=== PATIENT | male | born 1960 | race Two or more races ===

== ENCOUNTER 2020-07-29 09:12 | Day surgery (SDC) | payer OTHER, SELFPAY ==
[2020-07-25 13:20] VITALS: BMI 35.2
--- NOTE | 2020-07-27 13:03 | HO.ANESPROP2 ---
Documented by User: Rebekah Cortes 07/28/20 12:17 HPI - Anesthesia Eval Consult details Narrative: 59yo M for medial branch block PMFSH Past Medical History Medical History Abnormal biopsy of kidney Anxiety Asthma CHF (congestive heart failure) Chronic kidney disease (CKD) COPD (chronic obstructive pulmonary disease) Depression Elevated cholesterol History of alcohol abuse History of headache HTN (hypertension) Hx of pancreatitis On beta doron at home Peptic ulcer Sleep apnea Surgical History Surgical History Hx of colonoscopy Hx of right inguinal hernia repair Social History Social History Smoking Status: Current every day smoker Years Smoked: 30 Smoked in Last 30 Days: Yes Patient Interested in Nicotine Replacement: No Use of substances other than those prescribed or required for medical reasons: No Advance Directives: No Narrative Narrative: Renal cleared, avoid NSAID. Cardiology OV 03/2020 (results of w/u reported below) Meds Allergies Allergy/AdvReac Type Severity Reaction Status Date / Time No Known Allergies Allergy Verified 07/25/20 12:53 Home Medications Medication Instructions Recorded Confirmed Type albuterol mcg INHALATION 07/25/20 History aspirin [Aspir-81] 81 mg PO DAILY 07/25/20 07/29/20 History atorvastatin 80 mg PO DAILY 07/25/20 07/25/20 History carvedilol 25 mg PO BID 07/25/20 07/25/20 History cholecalciferol (vitamin D3) 25 mcg PO DAILY 07/25/20 07/25/20 History [Vitamin D3] clonidine HCl 0.2 mg PO BEDTIME 07/25/20 07/25/20 History fenofibrate nanocrystallized 145 mg PO DAILY 07/25/20 07/25/20 History gabapentin 600 mg PO BID 07/25/20 07/25/20 History insulin aspart U-100 [Novolog 15 unit SUBCUT TID 07/25/20 07/25/20 History Flexpen U-100 Insulin] lisinopril 40 mg PO DAILY 07/25/20 07/25/20 History minoxidil 2.5 mg PO DAILY 07/25/20 07/25/20 History nifedipine 90 mg PO DAILY 07/25/20 07/25/20 History omega-3 fatty acids-vitamin E cap 07/25/20 History [Fish Oil] oxcarbazepine 300 mg PO BID 07/25/20 07/25/20 History perphenazine 4 mg PO BID 07/25/20 07/25/20 History sertraline 100 mg PO DAILY 07/25/20 07/25/20 History spironolactone 25 mg PO DAILY 07/25/20 07/25/20 History torsemide 20 mg PO DAILY 07/25/20 07/25/20 History Exam Exam Date and Time: July 27, 2020 1303 Height,Weight and Vital Signs: Height 5 ft 10 in Weight 111.316 kg Pertinent Lab Results Pertinent Lab Results: EKG per Cardiol note: SB@59, LVH, strain pattern, nonspecifit ST-T changes, slightly prolonged MO, normal QTc Stress MIBI 04/2020 = nondiagnostic EKG, normal perfusion, gated EF 58% ECHO 04/2020 = EF 55-60%, no RWMA, no valve pathology 02/2020 Labs: Lytes WNL Bun/Creat = 40/2.41 (H) H&H = 13.2/38.4 (L) Assessment and Plan Assessment Anesthesia Assessment: Chart Reviewed (07/27/20 HT) Documented by User: Brissa Santiago 07/29/20 11:11 [facility] Past Medical History Medical History Abnormal biopsy of kidney Anxiety Asthma CHF (congestive heart failure) Chronic kidney disease (CKD) COPD (chronic obstructive pulmonary disease) Depression Elevated cholesterol History of alcohol abuse History of headache HTN (hypertension) Hx of pancreatitis On beta doron at home Peptic ulcer Sleep apnea Surgical History Surgical History Hx of colonoscopy Hx of right inguinal hernia repair Social History Social History Smoking Status: Current every day smoker Years Smoked: 30 Smoked in Last 30 Days: Yes Patient Interested in Nicotine Replacement: No Use of substances other than those prescribed or required for medical reasons: No Advance Directives: No Meds Allergies Allergy/AdvReac Type Severity Reaction Status Date / Time No Known Allergies Allergy Verified 07/25/20 12:53 Home Medications Medication Instructions Recorded Confirmed Type albuterol mcg INHALATION 07/25/20 History aspirin [Aspir-81] 81 mg PO DAILY 07/25/20 07/29/20 History atorvastatin 80 mg PO DAILY 07/25/20 07/25/20 History carvedilol 25 mg PO BID 07/25/20 07/25/20 History cholecalciferol (vitamin D3) 25 mcg PO DAILY 07/25/20 07/25/20 History [Vitamin D3] clonidine HCl 0.2 mg PO BEDTIME 07/25/20 07/25/20 History fenofibrate nanocrystallized 145 mg PO DAILY 07/25/20 07/25/20 History gabapentin 600 mg PO BID 07/25/20 07/25/20 History insulin aspart U-100 [Novolog 15 unit SUBCUT TID 07/25/20 07/25/20 History Flexpen U-100 Insulin] lisinopril 40 mg PO DAILY 07/25/20 07/25/20 History minoxidil 2.5 mg PO DAILY 07/25/20 07/25/20 History nifedipine 90 mg PO DAILY 07/25/20 07/25/20 History omega-3 fatty acids-vitamin E cap 07/25/20 History [Fish Oil] oxcarbazepine 300 mg PO BID 07/25/20 07/25/20 History perphenazine 4 mg PO BID 07/25/20 07/25/20 History sertraline 100 mg PO DAILY 07/25/20 07/25/20 History spironolactone 25 mg PO DAILY 07/25/20 07/25/20 History torsemide 20 mg PO DAILY 07/25/20 07/25/20 History Exam Airway Mallampati Class: III TM Dist: >3cm Neck ROM: Full Loose/Missing/Broken Teeth: No Heart: rrr Lungs: cta Assessment and Plan Assessment Anesthesia Assessment: Anesthesia Plan Discussed, Consent Obtained, Smoking Cess. Discussed and Chart Reviewed Final Anesthetic Review NPO: Yes ASA Class: III Final Preanesthetic Review: No Changes in Pt Med Stat, Meds & Allergies Reviewed, Consent Obtained/Reviewed, Med/Surg/Anes Hx Reviewed, Last Cigarette (If Appl.) and Anes Risks/Benef Reviewed Patient Risk: Intermediate Procedure Risk: Low Assessment/Block/Sedation in SS: Assess/Block/Sedation-SS Anesthetic Plan Anesthetic Plan: MAC: Disposition: Standard PACU
--- NOTE | 2020-07-29 | FL_ITS ---
EXAMINATION: XR FLUOROSCOPY WITH IMAGES CLINICAL INFORMATION: Pain, pain management procedure under fluoroscopy. COMPARISON: Lumbar radiographs 04/07/2020 TECHNIQUE: Fluoroscopy performed by Dr. Hester. Fluoroscopy time: 0.8 minutes DAP: 18.8 Gycm2 Images: 6 FINDINGS: There are bilateral spinal needles and bilateral contrast nerve sheaths at the outer aspect L3, L4, and L5 neural foramen. IMPRESSION: Fluoroscopy for pain management procedures.
[2020-07-29 09:44] LABS: Glucose, Whole Blood 96 mg/dL (60-115)
[2020-07-29 09:49] VITALS: BP 151/80; PULSE 64; RESP 16; TEMP 36.3; O2SAT 97
[2020-07-29] MEDS: Albuterol Sulfate (0.083%) 2.5 MG/3 ML VIAL.NEB INHALE (10:32)
[2020-07-29 12:07] VITALS: BP 150/81; PULSE 63; RESP 16; TEMP 36.3; O2SAT 98
[2020-07-29 12:22] VITALS: BP 152/75; PULSE 62; RESP 18; O2SAT 96
[2020-07-29 12:37] VITALS: BP 146/64; PULSE 63; RESP 20; O2SAT 97
[2020-07-29 13:20] VITALS: BP 160/82; PULSE 75; RESP 20; TEMP 37.3; O2SAT 99
--- NOTE | 2020-07-29 13:48 | W.PM.OPN ---
Operative Note Operative Note Narrative: Informed consent was explained to the patient. All questions were explained and answered. The patient was taken inside the operating room where she was positioned prone on the operating table. [employer] monitors were applied. Patient was minimally sedated. obstructive sleep apnea of the patient and multiple comorbidities were taking into the account with decision of sedation of the patient. Opioids were avoided during the sedation. The patient was taken inside of the operating room where she was positioned prone operating table. Time-out was performed delineating correct site, side, the nature of the procedure, patient's allergy, preoperative antibiotic if needed. All operating room staff was participating in OR time-out procedure. The lower back was prepped with ChloraPrep and draped with sterile towels. Sterilely draped C-arm was brought over the operating field and sq picture of L4-and L5 vertebra and S1 AREA were delineated on the screen. Point of interest were delineated as connection of superior articular process of L4 and L5 vertebra bilaterally with corresponding transverse processes as well as connection of the sacral alae bilaterally with superior articular process of S1. The projection of the point of interest to the skin were injected with the small amount of local anesthetic lidocaine 2% 1-1.5 cc. After that 22 gauge 3-1/2 inch spinal needles was driven to the point of interest in tunnel vision fashion. After needles gently contacted the bone at the point of interests the needle was injected with small amount of bupivacaine 0.5%-1cc. Upon completion of the injections needles were removed and sterile dressings were applied patient was awaken and taken outside of the operating room to recovery room where he recovered uneventfully. She went home without immediate complications.
== END 2020-07-29 23:59 | disposition home or self-care (01) ==
PROVIDERS: PCP Nurse Practitioner Family; Visit Provider Anesthesiology
PROC: (CPT 64493; principal; 2020-07-29 10:50)
DX: M47.816 Spondylosis without myelopathy or radiculopathy, lumbar region (principal); M54.16 Radiculopathy, lumbar region; M17.11 Unilateral primary osteoarthritis, right knee; E11.42 Type 2 diabetes mellitus with diabetic polyneuropathy; E11.22 Type 2 diabetes mellitus with diabetic chronic kidney disease; I13.0 Hypertensive heart and chronic kidney disease with heart failure and stage 1 through stage 4 chronic kidney disease, or unspecified chronic kidney disease; N18.4 Chronic kidney disease, stage 4 (severe); I50.9 Heart failure, unspecified; J44.9 Chronic obstructive pulmonary disease, unspecified; F17.210 Nicotine dependence, cigarettes, uncomplicated; Z79.4 Long term (current) use of insulin; Z79.899 Other long term (current) drug therapy
CPT/HCPCS: 64493; 64494; 76000; 82947; 94640; 94664; J2250; Q9967

== ENCOUNTER 2020-08-25 18:27 | Emergency (ER) | payer OTHER, SELFPAY ==
[2020-08-25 19:23] VITALS: BP 225/78; PULSE 62; RESP 18; TEMP 37.3; O2SAT 99; BMI 34.2
[2020-08-25 19:54] VITALS: BP 224/78; PULSE 66; RESP 12; TEMP 36.7; O2SAT 97
[2020-08-25 20:12] LABS: MANUAL DIFF FLAG NO
[2020-08-25 20:14] LABS: Basophils Percent Auto 0.5 % (0-2); Eosinophils Absolute Auto 0.3 X10*3/uL (0.0-0.4); Eosinophils Percent Auto 3.2 % (0-4); Hematocrit 34.9 % (42-52); Hemoglobin 12.1 g/dl (14.0-18.0); Imm Gran Abs Auto 0.03 X10*3/uL (0.00-0.03); Imm Gran Pct Auto 0.4 % (0.0-0.4); Lymphocytes Absolute Auto 1.8 X10*3/uL (1.2-4.9); Lymphocytes Percent Auto 22.5 % (20-40); Mean Corpuscular HGB Conc 34.7 g/dl (31.0-36.0); Mean Corpuscular Hemoglobin 30.2 pg (27.0-33.0); Mean Platelet Volume 11.7 fL (9.4-12.4); Monocytes Absolute Auto 0.5 X10*3/uL (0.1-1.2); Neutrophils Absolute Auto 5.3 X10*3/uL (2.0-8.3); Neutrophils Percent Auto 67.4 % (45-73); Platelet Count 176 X10*3/uL (160-400); Red Blood Count 4.01 X10*6/uL (4.60-5.80); Red Cell Distribution Width 13.1 % (11.0-16.0); White Blood Count 7.9 X10*3/uL (4.8-10.8)
[2020-08-25 20:19] VITALS: RESP 16
[2020-08-25] MEDS: Morphine Sulfate 4 MG/ML CARTRIDGE IVPUSH (20:19)
[2020-08-25] MEDS: ondansetron HCL 4 MG/2 ML VIAL IVPUSH (20:20)
[2020-08-25 20:37] VITALS: BP 185/63; PULSE 66; RESP 18; O2SAT 99
[2020-08-25 20:43] LABS: Anion Gap 12 (12-20); Blood Urea Nitrogen 33 mg/dL (9-16); Calcium 7.6 mg/dL (8.4-10.2); Carbon Dioxide 24 mmol/L (22-29); Chloride 108 mmol/L (96-108); Creatinine Clr Calc Pharmacy 33.9; Estimated Glomerular Filt Rate 22; Glucose Random 181 mg/dL (60-115); Potassium 3.5 mmol/l (3.3-5.1); Sodium 140 mmol/L (135-145)
--- NOTE | 2020-08-25 21:50 | ED_ITS ---
HPI - Headache General Chief Complaint: Headache Stated Complaint: headache,dizzy Time Seen by Provider: 08/25/20 19:56 Source: patient Mode of arrival: ambulatory Limitations: no limitations History of Present Illness HPI Narrative: PATIENT HISTORY OF HYPERTENSION AND MIGRAINES BEEN HAVING HEADACHE FOR LAST 4 DAYS RAN OUT OF HIS MEDICATIONS ON ARRIVAL PATIENT'S BLOOD PRESSURE WAS ALSO ELEVATED TO 222/78 WHICH USUALLY GETS HIGH WHEN THE WHEN PATIENT GETS HEADACHE. PATIENT HAD FEW CT SCANs DONE THIS YEAR WHICH WERE NEGATIVE ALSO PATIENT HAS SLEEP APNEA SYNDROME BUT IS NOT USING HIS CPAP MACHINE FOR LAST 1 AND HALF YEAR PATIENT FAIRLY RELIABLE FOR HIS MEDICATION FOR BLOOD PRESSURE AND HE TOOK HIS MEDICATION TODAY MD elicited complaint: headache Onset (ago): day(s) (4) Onset description: gradually Location: diffuse Severity: moderate Quality & Timing: throbbing Exacerbating factors: light and noise Relieving factors: nothing Context: occurred at rest Associated symptoms: nausea and sensitivity to sound Related Data Home Medications Medication Instructions Recorded Confirmed albuterol mcg INHALATION 07/25/20 aspirin [Aspir-81] 81 mg PO DAILY 07/25/20 07/29/20 atorvastatin 80 mg PO DAILY 07/25/20 07/25/20 carvedilol 25 mg PO BID 07/25/20 07/25/20 cholecalciferol (vitamin D3) 25 mcg PO DAILY 07/25/20 07/25/20 [Vitamin D3] clonidine HCl 0.2 mg PO BEDTIME 07/25/20 07/25/20 fenofibrate nanocrystallized 145 mg PO DAILY 07/25/20 07/25/20 gabapentin 600 mg PO BID 07/25/20 07/25/20 insulin aspart U-100 [Novolog 15 unit SUBCUT TID 07/25/20 07/25/20 Flexpen U-100 Insulin] lisinopril 40 mg PO DAILY 07/25/20 07/25/20 minoxidil 2.5 mg PO DAILY 07/25/20 07/25/20 nifedipine 90 mg PO DAILY 07/25/20 07/25/20 oxcarbazepine 300 mg PO BID 07/25/20 07/25/20 perphenazine 4 mg PO BID 07/25/20 07/25/20 sertraline 100 mg PO DAILY 07/25/20 07/25/20 spironolactone 25 mg PO DAILY 07/25/20 07/25/20 torsemide 20 mg PO DAILY 07/25/20 07/25/20 Previous Rx's Medication Instructions Recorded pen needle, diabetic 32 gauge x #150 ea 08/01/20 icosapent ethyl 1 gram capsule 2 g PO BID 30 Days #120 cap 08/10/20 lancets 33 gauge #100 ea 08/16/20 tkmnepsxjl-sxjanylxsqmqn-yryr 1 cap PO Q6H PRN #20 cap 08/25/20 [Fioricet] ondansetron 4 mg PO Q6H PRN #20 tab 08/25/20 Allergies Allergy/AdvReac Type Severity Reaction Status Date / Time No Known Allergies Allergy Verified 08/25/20 19:23 Review of Systems Review of Systems: REVIEW OF SYSTEMS: Pertinent positives and negatives are stated above in the history. GEN: no fevers, chills, fatigue HEENT: no nasal congestion, sore throat, ear pain NEURO: no dizziness, focal weakness PULM: no cough, shortness of breath CV: no chest pain, palpitations, LE edema ABD: no abdominal pain, nausea, vomiting, diarrhea : no dysuria, urgency, frequency SKIN: no rash ROS otherwise negative x 10 PMFSH Past Medical History Medical History Abnormal biopsy of kidney Anxiety Asthma CHF (congestive heart failure) Chronic kidney disease (CKD) COPD (chronic obstructive pulmonary disease) Depression Diabetes mellitus with hyperglycemia, with long-term current use of insulin Elevated cholesterol History of alcohol abuse History of headache HTN (hypertension) Hx of pancreatitis Hypertension Hypertriglyceridemia On beta doron at home Peptic ulcer Sleep apnea Surgical History Hx of colonoscopy Hx of right inguinal hernia repair Social History Social History Alcohol intake: never Smoking Status: Current some day smoker Years Smoked: 30 Use of substances other than those prescribed or required for medical reasons: No Advance Directives: No Advance Directives Information Provided: No Physical Exam Vital Signs: Vital Signs: Vital Signs Temp Pulse Resp BP Pulse Ox 08/25/20 20:37 66 18 185/63 H 99 08/25/20 20:19 16 08/25/20 19:54 98.1 F 66 12 224/78 H 97 08/25/20 19:23 99.2 F 62 18 225/78 H 99 Body Mass Index 34.2 Appearance: Alert. Oriented X3. mild distress. Eyes: Pupils equal, round and reactive to light. ENT: Pharynx normal. Neck: Normal inspection. Neck supple. CVS: Normal heart rate and rhythm. Pulses normal. Respiratory: No respiratory distress. Breath sounds normal. Abdomen: Soft and nontender. Skin: Skin warm and dry. Normal skin color. Normal skin turgor. Extremities: No lower extremity edema. Good range of movement Neuro: Oriented X 3. No motor deficit. No sensory deficit. Course Reevaluation(s) Reevaluation #1: patient feeling better now headache is almost gone workup is negative for any CO2 narcosis. Patient's blood pressure improved to 177/70 will discharge patient home diagnosis of migraine headache Time: 22:01 [facility] - Headache Lab Data Result diagrams: 08/25/20 20:05 08/25/20 20:05 Labs: Lab Results 08/25/20 08/25/20 08/25/20 Range/Units 20:05 20:05 20:07 WBC 7.9 (4.8-10.8) X10*3/uL RBC 4.01 L (4.60-5.80) X10*6/uL Hgb 12.1 L (14.0-18.0) g/dl Hct 34.9 L (42-52) % MCV 87.0 (80-98) fL MCH 30.2 (27.0-33.0) pg MCHC 34.7 (31.0-36.0) g/dl RDW 13.1 (11.0-16.0) % Plt Count 176 (160-400) X10*3/uL MPV 11.7 (9.4-12.4) fL Immature Gran % (Auto) 0.4 (0.0-0.4) % Neut % (Auto) 67.4 (45-73) % Lymph % (Auto) 22.5 (20-40) % Ocean % (Auto) 6.0 (2-11) % Eos % (Auto) 3.2 (0-4) % Baso % (Auto) 0.5 (0-2) % Lymph # (Auto) 1.8 (1.2-4.9) X10*3/uL Ocean # (Auto) 0.5 (0.1-1.2) X10*3/uL Eos # (Auto) 0.3 (0.0-0.4) X10*3/uL Baso # (Auto) 0.0 (0.0-0.2) X10*3/uL Abs Immat Gran (auto) 0.03 (0.00-0.03) X10*3/uL Absolute Neuts (auto) 5.3 (2.0-8.3) X10*3/uL Absolute Nucleated RBC 0.000 (0.0-0.012) X10*3/uL Nucleated RBC % (auto) 0.0 (0.0-0.2) /100WBC VBG pH Cancelled VBG pCO2 Cancelled VBG Oxygen Liters/Min Cancelled VBG pO2 Cancelled VBG HCO3 Cancelled VBG O2 Saturation Cancelled VBG Base Excess Cancelled Sodium 140 (135-145) mmol/L Potassium 3.5 (3.3-5.1) mmol/l Chloride 108 (96-108) mmol/L Carbon Dioxide 24 (22-29) mmol/L Anion Gap 12 (12-20) BUN 33 H (9-16) mg/dL Creatinine 2.97 H (0.5-1.4) mg/dL Estim Creat Clear Calc 33.9 Estimated GFR 22 Random Glucose 181 H (60-115) mg/dL Calcium 7.6 L (8.4-10.2) mg/dL 08/25/20 Range/Units 21:44 WBC (4.8-10.8) X10*3/uL RBC (4.60-5.80) X10*6/uL Hgb (14.0-18.0) g/dl Hct (42-52) % MCV (80-98) fL MCH (27.0-33.0) pg MCHC (31.0-36.0) g/dl RDW (11.0-16.0) % Plt Count (160-400) X10*3/uL MPV (9.4-12.4) fL Immature Gran % (Auto) (0.0-0.4) % Neut % (Auto) (45-73) % Lymph % (Auto) (20-40) % Ocean % (Auto) (2-11) % Eos % (Auto) (0-4) % Baso % (Auto) (0-2) % Lymph # (Auto) (1.2-4.9) X10*3/uL Ocean # (Auto) (0.1-1.2) X10*3/uL Eos # (Auto) (0.0-0.4) X10*3/uL Baso # (Auto) (0.0-0.2) X10*3/uL Abs Immat Gran (auto) (0.00-0.03) X10*3/uL Absolute Neuts (auto) (2.0-8.3) X10*3/uL Absolute Nucleated RBC (0.0-0.012) X10*3/uL Nucleated RBC % (auto) (0.0-0.2) /100WBC VBG pH 7.33 VBG pCO2 54 VBG Oxygen Liters/Min TNP VBG pO2 78 VBG HCO3 28 VBG O2 Saturation 95.1 VBG Base Excess 1.1 Sodium (135-145) mmol/L Potassium (3.3-5.1) mmol/l Chloride (96-108) mmol/L Carbon Dioxide (22-29) mmol/L Anion Gap (12-20) BUN (9-16) mg/dL Creatinine (0.5-1.4) mg/dL Estim Creat Clear Calc Estimated GFR Random Glucose (60-115) mg/dL Calcium (8.4-10.2) mg/dL Discharge Plan Discharge Clinical Impression: Migraine Patient Disposition: Home, Self-Care Instructions: Migraine Headache (ED) Additional Instructions: rest at home, medication for migraine as prescribed. Follow with primary care doctor about sleep studies and CPAP machine. Take blood pressure medication on regular basis follow-up with PCP Prescriptions: New ondansetron 4 mg tablet,disintegrating 4 mg PO Q6H PRN (Reason: nausea and vomiting) Qty: 20 RF: 0 desazvwyvw-mibgsgragvuyo-vbcr [Fioricet] 50-300-40 mg capsule 1 cap PO Q6H PRN (Reason: pain) Qty: 20 RF: 0 No Action (DME) pen needle, diabetic [BD Silvia 2nd Gen Pen Needle] 32 gauge x 5/32 needle See Rx Instructions .ROUTE .MEDSUPPLY Qty: 150 RF: 6 Vascepa 1 gram capsule 2 g PO BID 30 Days Qty: 120 RF: 6 (DME) lancets [TRUEplus Lancets] 33 gauge misc See Rx Instructions .ROUTE .MEDSUPPLY Qty: 100 RF: 11 atorvastatin 80 mg Tablet 80 mg PO DAILY RF: 0 sertraline 100 mg Tablet 100 mg PO DAILY RF: 0 aspirin [Aspir-81] 81 mg Tablet,Delayed Release (Dr/Ec) 81 mg PO DAILY RF: 0 clonidine HCl 0.2 mg Tablet 0.2 mg PO BEDTIME RF: 0 nifedipine 90 mg Tablet Extended Release 24hr 90 mg PO DAILY RF: 0 lisinopril 40 mg Tablet 40 mg PO DAILY RF: 0 fenofibrate nanocrystallized 145 mg Tablet 145 mg PO DAILY RF: 0 gabapentin 600 mg Tablet 600 mg PO BID RF: 0 torsemide 20 mg Tablet 20 mg PO DAILY RF: 0 oxcarbazepine 300 mg Tablet 300 mg PO BID RF: 0 minoxidil 2.5 mg Tablet 2.5 mg PO DAILY RF: 0 spironolactone 25 mg Tablet 25 mg PO DAILY RF: 0 perphenazine 4 mg Tablet 4 mg PO BID RF: 0 cholecalciferol (vitamin D3) [Vitamin D3] 25 mcg (1,000 unit) Capsule 25 mcg PO DAILY RF: 0 carvedilol 25 mg Tablet 25 mg PO BID RF: 0 albuterol 90 mcg/actuation Aerosol INHALATION RF: 0 insulin aspart U-100 [Novolog Flexpen U-100 Insulin] 100 unit/mL (3 mL) Insulin Pen 15 unit SUBCUT TID RF: 0
[2020-08-25 21:57] LABS: pH VBG 7.33 (7.32-7.43)
[2020-08-25 21:58] LABS: Base Excess VBG 1.1 mmol/L; Blood Gas Serial # 5414; HCO3 VBG 28 mmol/L; Oxygen Saturation VBG 95.1 %; PCO2 VBG 54 mmhg; PO2 VBG 78 mmhg
== END 2020-08-25 22:26 | disposition home or self-care (01) ==
PROVIDERS: Emergency Provider Internal Medicine
DX: G43.909 Migraine, unspecified, not intractable, without status migrainosus (principal); R42 Dizziness and giddiness; I10 Essential (primary) hypertension; Z79.899 Other long term (current) drug therapy; F17.200 Nicotine dependence, unspecified, uncomplicated; Z71.6 Tobacco abuse counseling
CPT/HCPCS: 36415; 80048; 82803; 85025; 96361; 96374; 96375; 99284; J2270; J2405

== ENCOUNTER → 2020-08-29 09:10 | Outpatient (BNVA) | payer OTHER, SELFPAY | PROVIDERS: Visit Provider Nurse Practitioner Gerontology | DX: E11.649 Type 2 diabetes mellitus with hypoglycemia without coma (principal); E11.42 Type 2 diabetes mellitus with diabetic polyneuropathy; E11.22 Type 2 diabetes mellitus with diabetic chronic kidney disease; I12.9 Hypertensive chronic kidney disease with stage 1 through stage 4 chronic kidney disease, or unspecified chronic kidney disease; N18.4 Chronic kidney disease, stage 4 (severe); Z79.4 Long term (current) use of insulin; E78.1 Pure hyperglyceridemia; Z79.899 Other long term (current) drug therapy | CPT/HCPCS: 82947; 99212 ==

== ENCOUNTER → 2020-08-31 12:44 | Outpatient (BNVA) | payer OTHER, SELFPAY | PROVIDERS: Visit Provider Anesthesiology | DX: M47.816 Spondylosis without myelopathy or radiculopathy, lumbar region (principal); Z98.890 Other specified postprocedural states | CPT/HCPCS: 99212 ==

== ENCOUNTER 2020-09-01 11:18 | Emergency (ER) | payer OTHER, SELFPAY ==
[2020-09-01 11:45] VITALS: BP 189/81; PULSE 75; RESP 20; TEMP 37.4; O2SAT 96; BMI 34.9
--- NOTE | 2020-09-01 11:53 | US_ITS ---
EXAMINATION: US SCROTUM CLINICAL INFORMATION: Left scrotal pain. COMPARISON: None TECHNIQUE: A sonogram of the scrotum was performed assessing hui-scale appearance and color Doppler flow. Spectral Doppler analysis of the arterial and venous flow were performed in the testes bilaterally. FINDINGS: RIGHT: Right testicle measures 4.6 x 2.2 x 3.2 cm, volume 17.2 mL. No focal testicular parenchymal lesions are visualized. There is normal bilateral symmetric intratesticular color flow and low resistance waveforms. No torsion. Right epididymal head is normal in size. Small hydrocele similar to contralateral side. No varicocele. LEFT: Left testicle measures 4.3 x 2.3 x 3.3 cm, volume 17.3 mL. No focal testicular parenchymal lesions are visualized. There is normal bilateral symmetric intratesticular color flow and low resistance waveforms. No torsion. Left epididymal head is normal in size. Small hydrocele similar to contralateral side. No varicocele. Additional imaging left inguinal region demonstrates incidental inguinal node with normal shira architecture and normal shira color flow pattern with short axis dimension of only 0.8 cm. No inguinal hernia demonstrated. US/US scrotum doppler IMPRESSION: 1. No intratesticular mass or torsion. 2. Small/trace bilateral hydrocele. 3. No visible inguinal hernia or adenopathy.
--- NOTE | 2020-09-01 12:09 | ED_ITS ---
HPI - Extremity Injury (Lower) General Chief Complaint: Extremity Injury, Lower Stated Complaint: knee pain Time Seen by Provider: 09/01/20 11:53 Source: patient Mode of arrival: ambulatory History of Present Illness HPI Narrative: 59-year-old male with a past medical history of diabetes, PUD, HTN, HLD, ETOH abuse, depression, COPD, CKD, asthma, presenting to the ED complaining of left groin pain radiating down LLE x3-4 days. Reports acute on chronic back pain, unchanged. Reports pain radiates into scrotum. Admits to associated LLE tingling. Denies fever, chills, abdominal pain, nausea/vomiting, penile/scrotal lesions or discharge/swelling, urinary incontinence/retention, weakness. Denies direct injury/falls Related Data Home Medications Medication Instructions Recorded Confirmed albuterol mcg INHALATION 07/25/20 08/29/20 aspirin [Aspir-81] 81 mg PO DAILY 07/25/20 08/29/20 atorvastatin 80 mg PO DAILY 07/25/20 08/29/20 carvedilol 25 mg PO BID 07/25/20 08/29/20 cholecalciferol (vitamin D3) 25 mcg PO DAILY 07/25/20 08/29/20 [Vitamin D3] clonidine HCl 0.2 mg PO BEDTIME 07/25/20 08/29/20 fenofibrate nanocrystallized 145 mg PO DAILY 07/25/20 08/29/20 gabapentin 600 mg PO BID 07/25/20 08/29/20 lisinopril 40 mg PO DAILY 07/25/20 08/29/20 minoxidil 2.5 mg PO DAILY 07/25/20 08/29/20 nifedipine 90 mg PO DAILY 07/25/20 08/29/20 oxcarbazepine 300 mg PO BID 07/25/20 08/29/20 perphenazine 4 mg PO BID 07/25/20 08/29/20 sertraline 100 mg PO DAILY 07/25/20 08/29/20 spironolactone 25 mg PO DAILY 07/25/20 08/29/20 torsemide 20 mg PO DAILY 07/25/20 08/29/20 Previous Rx's Medication Instructions Recorded pen needle, diabetic 32 gauge x #150 ea 08/01/20 icosapent ethyl 1 gram capsule 2 g PO BID 30 Days #120 cap 08/10/20 lancets 33 gauge #100 ea 08/16/20 [id number]-eytofnivrrmpw-wyfk 1 cap PO Q6H PRN #20 cap 08/25/20 [Fioricet] ondansetron 4 mg PO Q6H PRN #20 tab 08/25/20 insulin aspart U-100 100 unit/mL See Rx Instructions SUBCUT TID 30 08/29/20 (3 mL) subcutaneous pen Days #30 ml acetaminophen [Tylenol Extra 500 mg PO Q6H PRN #20 tab 09/01/20 Strength] cyclobenzaprine 5 mg PO Q8H PRN 5 Days #14 tab 09/01/20 lidocaine [Lidoderm] 1 patch TOPICAL DAILY PRN #30 ea 09/01/20 MDD remove after 12 hours Allergies Allergy/AdvReac Type Severity Reaction Status Date / Time No Known Allergies Allergy Verified 08/29/20 10:39 Review of Systems Review of Systems: Constitutional: No Weight loss, No Fever, No Chills Gastrointestinal: No Nausea, No Vomiting, No Diarrhea, No Constipation, No Abdominal pain Genitourinary: No Dysuria, No Urinary Frequency, No Hematuria, No Urinary Incontinence, No Urgency, No Flank Pain, +L scrotal pain, denies penile d/c/lesions Musculoskeletal: +groin pain, No Myalgias, No Joint Swelling Skin: No Skin Lesions, No rash Neuro: No Weakness, No Numbness, + Paresthesias Yes all other systems are reviewed and are negative PMFSH Past Medical History Attestation statement: The following information was validated with the patient. Medical History (Updated 09/01/20 @ 15:34 by CORNELIO Bowie) Abnormal biopsy of kidney Anxiety Asthma CHF (congestive heart failure) Chronic kidney disease (CKD) Chronic kidney disease, stage 4 (severe) COPD (chronic obstructive pulmonary disease) Depression Depression with anxiety Diabetes mellitus with hyperglycemia, with long-term current use of insulin Diverticulitis Elevated cholesterol Erectile dysfunction History of alcohol abuse History of headache HTN (hypertension) Hx of pancreatitis Hypertension Hypertriglyceridemia On beta doron at home Peptic ulcer Proteinuria Sleep apnea Type 2 diabetes mellitus with chronic kidney disease Type 2 diabetes mellitus with hyperglycemia, with long-term current use of insulin Type 2 diabetes mellitus with polyneuropathy Surgical History Hx of colonoscopy Hx of right inguinal hernia repair Family History Family History (Updated 08/29/20 @ 10:42 by MADELINE Moyer) Mother Diabetes Social History Social History Alcohol intake: never Smoking Status: Current every day smoker Years Smoked: 30 Smoked in Last 30 Days: Yes Use of substances other than those prescribed or required for medical reasons: No Advance Directives: No Advance Directives Information Provided: No Physical Exam Vital Signs: Vital Signs: Vital Signs Temp Pulse Resp BP Pulse Ox 09/01/20 15:30 62 16 169/88 H 97 09/01/20 14:16 70 18 204/96 H 97 09/01/20 12:19 68 20 193/82 H 97 09/01/20 11:45 99.4 F 75 20 189/81 H 96 Body Mass Index 34.9 Const: General: cooperative and healthy appearing Orientation/consciousness: patient oriented x3 Limitations: no limitations HENMT: Head: Yes normal to inspection Ears: hearing grossly normal bilaterally General nose exam: Normal external nose present Face and sinus: Yes normal facial exam Eyes: General: appearance normal, both eyes and all related structures EOM: EOMs intact bilaterally Neck: Other: No midline cervical spinous tenderness Neck: Yes normal visual inspection GI: Inspection: Yes normal to inspection Palpation (GI): Soft to palpation, nontender, no guarding and not rigid : General: Yes no CVA tenderness Back/Spine/Pelvis: Back: no CVA tenderness Skin: Rashes: no rashes Wounds: no wounds Neuro: General: patient oriented x3 Gait exam (Neuro): Normal gait present Extrem: General: Yes normal to inspection Course Course Course Narrative: -1437--patient's blood pressure increased to 204/96, now reports headache since this morning, with dizziness this morning which has since resolved. Admits to taking 3 anti-hypertensive medications which he does not know the name of, reports taking them this morning. Denies numbness, tingling, chest pain, weakness. > will give patient pain medication, read eval blood pressure, and obtain head CT. Low concern for hypertensive urgency/emergency -1511--on re-evaluation/every time walk past room patient is sleeping comfortably/snoring > head CT pending -ultrasound without intratesticular mass or torsion. Small trace bilateral hydrocele. No visible inguinal hernia -UA negative --1532--repeat blood pressure 169/88 without intervention> patient reports resolution of headache > will cancel head CT. Discussed with patient needs close monitoring/follow-up for his blood pressure. He verbalized understanding and feels safe for discharge home MDM - Extremity Injury (Lower) MDM Narrative Medical decision making narrative: 59-year-old male with a past medical history of diabetes, PUD, HTN, HLD, ETOH abuse, depression, COPD, CKD, asthma, presenting to the ED complaining of left groin pain radiating down LLE x3-4 days. Lab Data Labs: Lab Results 09/01/20 Range/Units 12:18 Urine Color YELLOW Urine Appearance CLEAR Urine pH 6.0 (5.0-8.0) Ur Specific [place] 1.025 (1.005-1.025) Urine Protein 3+ H (NEG-TRACE) MG/DL Urine Glucose (UA) 250 H (NEG) MG/DL Urine Ketones NEG (NEG) MG/DL Urine Blood 1+ H (NEG) Urine Nitrite NEG (NEG) Ur Leukocyte Esterase NEG (NEG) Urine RBC 1-4 (0) /HPF Urine WBC 1-4 (0-4) /HPF Ur Squamous Epith Cells 1+ /LPF Ur Renal Epithelial Cell 1+ /LPF Urine Bacteria NONE /LPF Urine Mucus 2+ /LPF Discharge Plan Discharge Clinical Impression: Hypertension Qualifiers: Hypertension type: unspecified Qualified Code(s): I10 - Essential (primary) hypertension Groin pain Qualifiers: Laterality: left Qualified Code(s): R10.32 - Left lower quadrant pain Patient Disposition: Home, Self-Care Instructions: Hypertension (ED), Groin Pain (ED) Additional Instructions: Your ultrasound and urine did not show any acute findings Your blood pressure is very elevated today in the ED, make sure your taking her prescribed blood pressure medications at home, closely monitoring Follow-up with her primary care doctor If her pain persists or worsens, he developed urinary incontinence or retention, fever, weakness return to the ED Your pain is likely musculoskeletal Flexeril is a muscle relaxer, take at night as it makes you drowsy, do not drive, drink alcohol, or operate machinery while taking it Lidoderm patches are numbing patches, apply to painful area In addition take Tylenol at home Prescriptions: New acetaminophen [Tylenol Extra Strength] 500 mg tablet 500 mg PO Q6H PRN (Reason: pain or fever) Qty: 20 RF: 0 lidocaine [Lidoderm] 5 % adhesive patch,medicated 1 patch topical DAILY MDD remove after 12 hours PRN (Reason: pain) Qty: 30 RF: 0 cyclobenzaprine 5 mg tablet 5 mg PO Q8H PRN (Reason: pain (scale score 7-10)) 5 Days Qty: 14 RF: 0 No Action (DME) pen needle, diabetic [BD Silvia 2nd Gen Pen Needle] 32 gauge x 5/32 needle See Rx Instructions .ROUTE .MEDSUPPLY Qty: 150 RF: 6 Vascepa 1 gram capsule 2 g PO BID 30 Days Qty: 120 RF: 6 (DME) lancets [TRUEplus Lancets] 33 gauge misc See Rx Instructions .ROUTE .MEDSUPPLY Qty: 100 RF: 11 atorvastatin 80 mg Tablet 80 mg PO DAILY RF: 0 sertraline 100 mg Tablet 100 mg PO DAILY RF: 0 aspirin [Aspir-81] 81 mg Tablet,Delayed Release (Dr/Ec) 81 mg PO DAILY RF: 0 clonidine HCl 0.2 mg Tablet 0.2 mg PO BEDTIME RF: 0 nifedipine 90 mg Tablet Extended Release 24hr 90 mg PO DAILY RF: 0 lisinopril 40 mg Tablet 40 mg PO DAILY RF: 0 fenofibrate nanocrystallized 145 mg Tablet 145 mg PO DAILY RF: 0 gabapentin 600 mg Tablet 600 mg PO BID RF: 0 torsemide 20 mg Tablet 20 mg PO DAILY RF: 0 oxcarbazepine 300 mg Tablet 300 mg PO BID RF: 0 minoxidil 2.5 mg Tablet 2.5 mg PO DAILY RF: 0 spironolactone 25 mg Tablet 25 mg PO DAILY RF: 0 perphenazine 4 mg Tablet 4 mg PO BID RF: 0 cholecalciferol (vitamin D3) [Vitamin D3] 25 mcg (1,000 unit) Capsule 25 mcg PO DAILY RF: 0 carvedilol 25 mg Tablet 25 mg PO BID RF: 0 albuterol 90 mcg/actuation Aerosol INHALATION RF: 0 ondansetron 4 mg tablet,disintegrating 4 mg PO Q6H PRN (Reason: nausea and vomiting) Qty: 20 RF: 0 [id number]-paewylnezijbr-ivir [Fioricet] 50-300-40 mg capsule 1 cap PO Q6H PRN (Reason: pain) Qty: 20 RF: 0 insulin aspart U-100 [Novolog Flexpen U-100 Insulin] 100 unit/mL (3 mL) insulin pen See Rx Instructions SUBCUT TID 30 Days Qty: 30 RF: 3 Referrals: Nuvia Crook [Primary Care Provider] - 2 days Print Language: Khmer
[2020-09-01 12:19] VITALS: BP 193/82; PULSE 68; RESP 20; O2SAT 97
[2020-09-01 12:45] LABS: Glucose Urine UA 250 MG/DL (NEG); Leukocyte Esterase Urine NEG (NEG); Nitrite Urine NEG (NEG); Specific Gravity - Urine 1.025 (1.005-1.025); Urine Blood 1+ (NEG); Urine Ketones NEG (NEG); Urine Protein 3+ MG/DL (NEG-TRACE)
[2020-09-01 12:46] LABS: Appearance Urine CLEAR; Color Urine YELLOW
[2020-09-01 12:53] LABS: Mucus Urine 2+ /LPF; Renal Epithelial Cells Urine 1+ /LPF; Squamous Epithelial Cell Urine 1+ /LPF
--- NOTE | 2020-09-01 13:19 | US_ITS ---
EXAMINATION: US SCROTUM CLINICAL INFORMATION: Left scrotal pain. COMPARISON: None TECHNIQUE: A sonogram of the scrotum was performed assessing hui-scale appearance and color Doppler flow. Spectral Doppler analysis of the arterial and venous flow were performed in the testes bilaterally. FINDINGS: RIGHT: Right testicle measures 4.6 x 2.2 x 3.2 cm, volume 17.2 mL. No focal testicular parenchymal lesions are visualized. There is normal bilateral symmetric intratesticular color flow and low resistance waveforms. No torsion. Right epididymal head is normal in size. Small hydrocele similar to contralateral side. No varicocele. LEFT: Left testicle measures 4.3 x 2.3 x 3.3 cm, volume 17.3 mL. No focal testicular parenchymal lesions are visualized. There is normal bilateral symmetric intratesticular color flow and low resistance waveforms. No torsion. Left epididymal head is normal in size. Small hydrocele similar to contralateral side. No varicocele. Additional imaging left inguinal region demonstrates incidental inguinal node with normal shira architecture and normal shira color flow pattern with short axis dimension of only 0.8 cm. No inguinal hernia demonstrated. US/US scrotum IMPRESSION: 1. No intratesticular mass or torsion. 2. Small/trace bilateral hydrocele. 3. No visible inguinal hernia or adenopathy.
--- NOTE | 2020-09-01 14:05 | PC.NURSE ---
pt to/from ultrasound w/o issue
[2020-09-01 14:16] VITALS: BP 204/96; PULSE 70; RESP 18; O2SAT 97
--- NOTE | 2020-09-01 14:21 | PC.NURSE ---
Matilda GRIMES aware of patients BP and that pt is c/o headache. pt states he took all of his blood pressure medications today. SHIV, neuros intact. plan is for head CT
[2020-09-01] MEDS: Acetaminophen 325 MG TABLET 650 MG PO (14:41)
[2020-09-01] MEDS: Cyclobenzaprine HCl 5 MG TABLET PO (14:41)
[2020-09-01 15:30] VITALS: BP 169/88; PULSE 62; RESP 16; O2SAT 97
[2020-09-01 16:51] LABS: CT PCR NOT DETECTED (Not Detect.); NG PCR NOT DETECTED (Not Detect.)
== END 2020-09-01 15:52 | disposition home or self-care (01) ==
PROVIDERS: Physician Assistant; Emergency Provider Emergency Medicine
DX: R10.32 Left lower quadrant pain (principal); F33.1 Major depressive disorder, recurrent, moderate; I12.9 Hypertensive chronic kidney disease with stage 1 through stage 4 chronic kidney disease, or unspecified chronic kidney disease; E11.22 Type 2 diabetes mellitus with diabetic chronic kidney disease; N18.4 Chronic kidney disease, stage 4 (severe); Z79.899 Other long term (current) drug therapy; F17.200 Nicotine dependence, unspecified, uncomplicated; Z71.6 Tobacco abuse counseling
CPT/HCPCS: 76870; 81001; 87491; 87591; 93975; 99284

== ENCOUNTER → 2020-09-04 19:37 | Outpatient (REF) | payer OTHER, SELFPAY | LOC: HO.SL 19:37 | PROVIDERS: Visit Provider Nurse Practitioner Family | DX: G47.33 Obstructive sleep apnea (adult) (pediatric) (principal) | CPT/HCPCS: 95811 ==

== ENCOUNTER 2020-10-13 11:06 | Emergency (ER) | payer OTHER, SELFPAY ==
[2020-10-13 11:11] VITALS: BP 157/70; BP 165/95; PULSE 67; PULSE 69; RESP 17; TEMP 36.7; O2SAT 97; O2SAT 99; BMI 34.8
--- NOTE | 2020-10-13 11:16 | XR_ITS ---
EXAMINATION: XR LUMBOSACRAL SPINE CLINICAL INFORMATION: Fall. COMPARISON: None TECHNIQUE: Three views of the lumbosacral spine. FINDINGS: Bone alignment is normal. No fracture or dislocation is seen. There is multilevel degenerative spondylosis. Disc spaces are normal. There is lower lumbar spine facet arthritis. XR/XR lumbar spine 2-3V IMPRESSION: Degenerative changes. No fracture seen.
--- NOTE | 2020-10-13 11:16 | XR_ITS ---
EXAMINATION: XR CHEST CLINICAL INFORMATION: Right chest pain, rule out fracture. COMPARISON: 01/01/2020 portable chest. TECHNIQUE: Frontal view of the chest was obtained. FINDINGS: No significant abnormality is noted involving the heart, lungs, mediastinum, bony thorax or soft tissues. XR/XR chest 1V IMPRESSION: No acute cardiopulmonary process.
--- NOTE | 2020-10-13 11:16 | XR_ITS ---
EXAMINATION: XR HIP, RIGHT CLINICAL INFORMATION: Right hip pain status post fall. COMPARISON: None TECHNIQUE: Two views of the right hip. FINDINGS: Bones and soft tissues are normal. No fracture. Alignment is anatomic. Hip joint space is maintained. XR/XR hip RT w PEL1V IMPRESSION: Unremarkable right hip.
--- NOTE | 2020-10-13 11:20 | ED_ITS ---
HPI - Fall General Chief Complaint: Fall Stated Complaint: fall, r hip/back pain Time Seen by Provider: 10/13/20 11:16 Source: patient and EMS Mode of arrival: EMS Limitations: no limitations History of Present Illness HPI Narrative: 60-year-old male who presents to the emergency department for evaluation of injuries from a fall. Patient states that he was walking home from a convenience store when he slipped in the snow landing on his back. He denies any head injury or loss of consciousness. He states that he developed immediate pain in his right lower back and right hip area. He was assisted up by bystanders he states that he walked home. According to the paramedics he walked up his apartment stairs and then called EMS for severe lower back pain. On presentation the patient states that he is having greater than 10/10 pain in his right lower back and right hip. He states the pain is a constant, sharp pain which is worse with movement. Patient states he does have chronic back pain and takes tramadol. He took tramadol prior to coming to the emergency department with no relief of his pain. He denied headache, nausea, vomiting, neck pain, arm or leg weakness, loss of bowel or bladder control. He states that he was not ill prior to falling, he denied fever, chills, cough, myalgias or arthralgias. Related Data Home Medications Medication Instructions Recorded Confirmed albuterol mcg INHALATION 07/25/20 08/29/20 aspirin [Aspir-81] 81 mg PO DAILY 07/25/20 08/29/20 atorvastatin 80 mg PO DAILY 07/25/20 08/29/20 carvedilol 25 mg PO BID 07/25/20 08/29/20 cholecalciferol (vitamin D3) 25 mcg PO DAILY 07/25/20 08/29/20 [Vitamin D3] clonidine HCl 0.2 mg PO BEDTIME 07/25/20 08/29/20 fenofibrate nanocrystallized 145 mg PO DAILY 07/25/20 08/29/20 gabapentin 600 mg PO BID 07/25/20 08/29/20 lisinopril 40 mg PO DAILY 07/25/20 08/29/20 minoxidil 2.5 mg PO DAILY 07/25/20 08/29/20 nifedipine 90 mg PO DAILY 07/25/20 08/29/20 oxcarbazepine 300 mg PO BID 07/25/20 08/29/20 perphenazine 4 mg PO BID 07/25/20 08/29/20 sertraline 100 mg PO DAILY 07/25/20 08/29/20 spironolactone 25 mg PO DAILY 07/25/20 08/29/20 torsemide 20 mg PO DAILY 07/25/20 08/29/20 Previous Rx's Medication Instructions Recorded pen needle, diabetic 32 gauge x #150 ea 08/01/20 icosapent ethyl 1 gram capsule 2 g PO BID 30 Days #120 cap 08/10/20 lancets 33 gauge #100 ea 08/16/20 rvxracgtqa-wxlcdxikfbnxg-eyof 1 cap PO Q6H PRN #20 cap 08/25/20 [Fioricet] ondansetron 4 mg PO Q6H PRN #20 tab 08/25/20 insulin aspart U-100 100 unit/mL See Rx Instructions SUBCUT TID 30 08/29/20 (3 mL) subcutaneous pen Days #30 ml acetaminophen [Tylenol Extra 500 mg PO Q6H PRN #20 tab 09/01/20 Strength] cyclobenzaprine 5 mg PO Q8H PRN 5 Days #14 tab 09/01/20 lidocaine [Lidoderm] 1 patch TOPICAL DAILY PRN #30 ea 09/01/20 MDD remove after 12 hours oxycodone 5 mg PO Q4H PRN #14 tab 10/13/20 Allergies Allergy/AdvReac Type Severity Reaction Status Date / Time No Known Allergies Allergy Verified 08/29/20 10:39 Review of Systems Review of Systems: Yes all other systems are reviewed and are negative Constitutional: Constitutional: Reports as per HPI Eyes: Eyes: Reports as per HPI ENT: Reports as per HPI Cardiovascular: Cardiovascular: Reports as per HPI Respiratory: Respiratory: Reports as per HPI Gastrointestinal: Gastrointestinal: Reports as per HPI Genitourinary: Genitourinary: Reports as per HPI Musculoskeletal: Musculoskeletal: Reports as per HPI Integumentary/Breasts: Skin/Breast: Reports as per HPI Neurologic: Reports as per HPI and Reports Abnormal speech present Psychiatric: Psychiatric: Reports as per HPI Allergic/Immunologic: Allergic/Immunologic: Reports as per HPI [facility] Past Medical History Attestation statement: The following information was validated with the patient. [facility] Narrative: The patient states he smokes 5 cigarettes per day, denies alcohol tobacco use. Medical History Abnormal biopsy of kidney Anxiety Asthma CHF (congestive heart failure) Chronic kidney disease (CKD) Chronic kidney disease, stage 4 (severe) COPD (chronic obstructive pulmonary disease) Depression Depression with anxiety Diabetes mellitus with hyperglycemia, with long-term current use of insulin Diverticulitis Elevated cholesterol Erectile dysfunction History of alcohol abuse History of headache HTN (hypertension) Hx of pancreatitis Hypertension Hypertriglyceridemia On beta doron at home Peptic ulcer Proteinuria Sleep apnea Type 2 diabetes mellitus with chronic kidney disease Type 2 diabetes mellitus with hyperglycemia, with long-term current use of insulin Type 2 diabetes mellitus with polyneuropathy Surgical History Hx of colonoscopy Hx of right inguinal hernia repair Family History Family History Mother Diabetes Social History Social History Alcohol intake: never Smoking Status: Current every day smoker Cigarettes Per Day: 5 Years Smoked: 30 Advance Directives: No Advance Directives Information Provided: No Physical Exam Vital Signs: Vital Signs: Last Vital Signs Temp 97.9 F 10/13/20 12:54 Pulse 62 10/13/20 12:54 Resp 16 10/13/20 13:04 BP 169/66 H 10/13/20 12:54 Pulse Ox 98 10/13/20 12:54 Body Mass Index 34.8 Const: General: cooperative, healthy appearing, anxious and other (In distress secondary to his pain) Nutritional Appearance: obese Orientation/con sciousness: oriented to person and oriented to place Limitations: no limitations HENMT: Head: Yes normal to inspection, Yes normocephalic and Yes atraumatic Ears: external ears normal General nose exam: Normal external nose present Face and sinus: Yes normal facial exam Mouth: Normal oral and palatal m ucosa present Throat: Yes posterior oropharynx normal Eyes: General: appearance normal, both eyes and all related structures Alignment and Position: alignment normal Periorbital: periorbital findings normal Eyelids: Yes eyelids normal Conjunctivae: conjunctivae normal Sclerae: sclerae normal Pupils: Equal, round and reactive pupils present Direct Ophthalmoscopy: normal light reflex Neck: Neck: Yes normal visual inspection, Yes supple and Yes other (No C-spine tenderness) Thyroid: Thyroid normal Chest: Chest palpation & inspection: normal inspection of the chest and tenderness rib (Right anterior and lateral chest wall) Resp: Effort & Inspection: normal respiratory effort and able to speak in complete sentences Auscultation: clear to auscultation bilaterally, no crackles, no rales and no rhonchi Cardio: Rate: regular rate Rhythm: regular rhythm Heart sounds: S1 normal heart sound present, S2 normal heart sound present and no murmurs GI: Inspection: Yes normal to inspection Palpation (GI): Soft to palpation, nontender and no guarding Auscultation: normal bowel sounds : General: Yes no CVA tenderness Back/Spine/Pelvis: Back: no CVA tenderness Cervical Spine: normal cervical lordosis Thoracic/Lumbar Spine: paraspinal muscle tenderness on the right in the mid lumbar and in the lower lumbar and lumbar spinal tenderness (Moderate to severe) Skin: General skin exam: no rashes or lesions noted Lesions: no lesions Rashes: no rashes Trauma: no lacerations or abrasions Neuro: General: oriented to person and oriented to place Cranial nerves: Yes CN's II-XII intact bilaterally and Yes Equal, round and reactive pupils present Cognition (Neuro): normal cognition Speech: Abnormal speech present Motor exam (neuro): 5/5 motor strength present throughout Extrem: General: Yes normal to inspection Right upper extremity: normal to inspection Left upper extremity: normal to inspection Right lower extremity: normal to inspection and hip/thigh (Pain with palpation right hip, increased pain with movement of right hip) Left lower extremity: normal to inspection Psych: Appearance: grossly normal and well kempt Mental Status: mental status grossly normal Speech and movement: Normal speech and movement present Affect: normal affect Attitude: cooperative Thought process: Normal thought process present Thought content: Normal thought content present Insight: Good insight present (Psych) Judgement: Good judgement present (Psych) Course Course Course Narrative: 60-year-old male who presents emergency department for evaluation of injuries from a trip and fall. On examination the patient did appear to be in distress secondary to his lower back pain and right hip pain. He does have tenderness with palpation of his right paraspinal muscles and thoracic spine . He also has tenderness with palpation over his right hip with increased pain with movement of the right hip joint. Patient also had right- sided chest wall tenderness. He had no evidence of head or neck injury and had no loss of consciousness. I did order chest x-ray, lumbar spine x-rays and right hip with pelvis. These are reviewed morphine 4 mg IV. 1341: The patient's x-rays revealed no acute fracture. The patient continued to have significant pain and required a 2nd dose of morphine 4 mg IV, Dilaudid 1 mg IV with only minimal improvement of his pain. The patient however was able to get up and walk in the emergency department. At this point I believe this pain is secondary to soft tissue injury and I did discuss this with him. The patient was advised to take extra-strength Tylenol 500 mg pills, 2 pills every 4-6 hours as needed for pain. Patient does have kidney disease therefore he needs to avoid NSAIDs. The patient was given a limited prescription for oxycodone 5 mg pills, 1 pill every 4 hours as needed for pain. He was advised to apply ice to his areas that hurt and to follow-up with his doctor in 2-3 days for re-evaluation and to return if his symptoms get worse. MDM - Fall Lab Data Labs: Lab Results 10/13/20 Range/Units 13:13 POC Glucose 95 (60-115) mg/dL Discharge Plan Discharge Clinical Impression: Fall Qualifiers: Encounter type: initial encounter Qualified Code(s): W19.XXXA - Unspecified fall, initial encounter Contusion of hip, right Qualifiers: Encounter type: initial encounter Qualified Code(s): S70.01XA - Contusion of right hip, initial encounter Lumbar contusion Qualifiers: Encounter type: initial encounter Qualified Code(s): S30.0XXA - Contusion of lower back and pelvis, initial encounter Patient Disposition: Home, Self-Care Instructions: Contusion in Adults (ED) Additional Instructions: The x-rays of your right hip, pelvis and lower back did not reveal any broken bones. Your chest x-ray did not reveal any broken bones. Your pain is secondary to injury of the soft tissues such as tendons, ligaments and muscles from your fall. Apply ice for 15 minutes 4 to 6 times a day for the next 3 days to areas that hurt on your body. Take extra-strength Tylenol 500 mg pills, 2 pills every 4 hours as needed for pain. Take oxycodone 5 mg pills, 1 pill every 4-6 hours as needed for pain that is not relieved by Tylenol. Oxycodone is a narcotic medication and can be addicting. If you are worried about addiction do not get the prescription filled or ask the pharmacist for less pills than prescribed. While you are taking oxycodone, stop taking your tramadol. Do not take these 2 medications together. Follow-up with your doctor in 2-3 days for re-evaluation. Please return to the emergency department if your symptoms get worse or if you develop any new symptoms that are concerning to you. Prescriptions: New oxycodone 5 mg tablet 5 mg PO Q4H PRN (Reason: pain) Qty: 14 RF: 0 No Action (DME) pen needle, diabetic [BD Silvia 2nd Gen Pen Needle] 32 gauge x 5/32 needle See Rx Instructions .ROUTE .MEDSUPPLY Qty: 150 RF: 6 Vascepa 1 gram capsule 2 g PO BID 30 Days Qty: 120 RF: 6 (DME) lancets [TRUEplus Lancets] 33 gauge misc See Rx Instructions .ROUTE .MEDSUPPLY Qty: 100 RF: 11 atorvastatin 80 mg Tablet 80 mg PO DAILY RF: 0 sertraline 100 mg Tablet 100 mg PO DAILY RF: 0 aspirin [Aspir-81] 81 mg Tablet,Delayed Release (Dr/Ec) 81 mg PO DAILY RF: 0 clonidine HCl 0.2 mg Tablet 0.2 mg PO BEDTIME RF: 0 nifedipine 90 mg Tablet Extended Release 24hr 90 mg PO DAILY RF: 0 lisinopril 40 mg Tablet 40 mg PO DAILY RF: 0 fenofibrate nanocrystallized 145 mg Tablet 145 mg PO DAILY RF: 0 gabapentin 600 mg Tablet 600 mg PO BID RF: 0 torsemide 20 mg Tablet 20 mg PO DAILY RF: 0 oxcarbazepine 300 mg Tablet 300 mg PO BID RF: 0 minoxidil 2.5 mg Tablet 2.5 mg PO DAILY RF: 0 spironolactone 25 mg Tablet 25 mg PO DAILY RF: 0 perphenazine 4 mg Tablet 4 mg PO BID RF: 0 cholecalciferol (vitamin D3) [Vitamin D3] 25 mcg (1,000 unit) Capsule 25 mcg PO DAILY RF: 0 carvedilol 25 mg Tablet 25 mg PO BID RF: 0 albuterol 90 mcg/actuation Aerosol INHALATION RF: 0 ondansetron 4 mg tablet,disintegrating 4 mg PO Q6H PRN (Reason: nausea and vomiting) Qty: 20 RF: 0 wmoxfcicwk-hniijpjyayehh-gjcm [Fioricet] 50-300-40 mg capsule 1 cap PO Q6H PRN (Reason: pain) Qty: 20 RF: 0 acetaminophen [Tylenol Extra Strength] 500 mg tablet 500 mg PO Q6H PRN (Reason: pain or fever) Qty: 20 RF: 0 lidocaine [Lidoderm] 5 % adhesive patch,medicated 1 patch topical DAILY MDD remove after 12 hours PRN (Reason: pain) Qty: 30 RF: 0 cyclobenzaprine 5 mg tablet 5 mg PO Q8H PRN (Reason: pain (scale score 7-10)) 5 Days Qty: 14 RF: 0 insulin aspart U-100 [Novolog Flexpen U-100 Insulin] 100 unit/mL (3 mL) insulin pen See Rx Instructions SUBCUT TID 30 Days Qty: 30 RF: 3
[2020-10-13 11:38] VITALS: RESP 16
[2020-10-13] MEDS: Morphine Sulfate 4 MG/ML CARTRIDGE IVPUSH ×2 (11:38→12:12)
[2020-10-13 12:12] VITALS: RESP 16
--- NOTE | 2020-10-13 12:48 | PC.NURSE ---
pt amb (i) gait slow and steady with cane to and from the bathroom.
[2020-10-13 12:54] VITALS: BP 169/66; PULSE 62; RESP 16; TEMP 36.6; O2SAT 98
[2020-10-13 13:04] VITALS: RESP 16
[2020-10-13] MEDS: HYDROmorphone HCl 1 MG/ML SYRINGE IVPUSH (13:04)
[2020-10-13 13:17] LABS: Glucose, Whole Blood 95 mg/dL (60-115)
[2020-10-13 14:00] VITALS: BP 163/67; PULSE 65; RESP 17; TEMP 36.5; O2SAT 99
[2020-10-13] MEDS: oxyCODONE HCl Immed Release 5 MG TABLET PO (14:07)
== END 2020-10-13 14:14 | disposition home or self-care (01) ==
PROVIDERS: Emergency Provider Emergency Medicine Emergency Medical Services; PCP Nurse Practitioner Primary Care
DX: S70.01XA Contusion of right hip, initial encounter (principal); S30.0XXA Contusion of lower back and pelvis, initial encounter; M54.5 Low back pain; M25.551 Pain in right hip; W00.0XXA Fall on same level due to ice and snow, initial encounter; Y93.01 Activity, walking, marching and hiking; Y92.480 Sidewalk as the place of occurrence of the external cause; Y99.9 Unspecified external cause status; Z79.899 Other long term (current) drug therapy; F17.200 Nicotine dependence, unspecified, uncomplicated; Z71.6 Tobacco abuse counseling
CPT/HCPCS: 71045; 72100; 73502; 82947; 96374; 96375; 99284; 99285; J1170; J2270

== ENCOUNTER 2020-11-04 13:06 | Outpatient (REF) | payer OTHER, SELFPAY ==
--- NOTE | 2020-11-04 15:52 | MHC.AU.HAS ---
Hearing Aid Evaluation Date of Visit: 11/04/20 Historical Information: Description of Hearing: Right Ear: Normal from 250-2000 Hz, sloping to mild/moderate sensorineural hearing loss. Left Ear: Normal at 250-500 Hz, steeply sloping to severe/profound sensorineural hearing loss. Summary: Patient received a medical clearance for a left-sided hearing aid from ENT, Dr. Muir. Patient reports that the hearing loss occurred in his left ear several years ago in a work incident. He has never worn hearing aids. Hearing Aid Prescription: Based on the individual?s shared listening needs, communication environments, dexterity, desire for connectivity, and personal preferences, the following prescription for amplification has been made: Left ear: Gun Stock Maker: Struq Model: Comvivaeo P70-R Battery Size: Rechargeable Color: Black Shovel Engineer: 1M Type of Dome: Vented Dome Action Taken/Action Needed: Prior authorization to be requested Hearing Fitting to be scheduled when materials arrive Primary Diagnosis: H90.3 Bilateral Sensorineural Hearing Loss Signature: Provider: Torrey Mortensen, EMRE-A
== END 2020-11-04 13:07 | disposition home or self-care (01) ==
LOC: HO.HAP 13:06
PROVIDERS: Visit Provider Nurse Practitioner Primary Care
DX: Z46.1 Encounter for fitting and adjustment of hearing aid (principal); H90.3 Sensorineural hearing loss, bilateral
CPT/HCPCS: 92590

== ENCOUNTER → 2020-11-15 10:49 | Outpatient (BNVA) | payer OTHER, SELFPAY | PROVIDERS: PCP Nurse Practitioner Primary Care; Referring Provider Nurse Practitioner Primary Care; Visit Provider Nurse Practitioner Family | DX: G47.30 Sleep apnea, unspecified (principal) | CPT/HCPCS: Q3014 ==

== ENCOUNTER → 2020-11-16 09:50 | Outpatient (BNVA) | payer OTHER, SELFPAY | PROVIDERS: PCP Nurse Practitioner Primary Care; Visit Provider Nurse Practitioner Gerontology | DX: E11.65 Type 2 diabetes mellitus with hyperglycemia (principal); E11.42 Type 2 diabetes mellitus with diabetic polyneuropathy; E11.22 Type 2 diabetes mellitus with diabetic chronic kidney disease; I12.9 Hypertensive chronic kidney disease with stage 1 through stage 4 chronic kidney disease, or unspecified chronic kidney disease; N18.4 Chronic kidney disease, stage 4 (severe); Z79.4 Long term (current) use of insulin; E78.1 Pure hyperglyceridemia | CPT/HCPCS: Q3014 ==

== ENCOUNTER 2020-11-23 13:10 | Outpatient (REF) | payer OTHER, SELFPAY ==
--- NOTE | 2020-11-24 08:33 | MHC.AU.P13 ---
Hearing Instrument Fitting- Adult- Left Ear Date of Visit: 11/23/20 Hearing Instrument(s) Dispensed: Left Ear: [employer] Cook: Inbox Model: Audeo P70-R Serial Number: [id number] RepairWarranty: 02/07/2024 ORIGINAL WARRANTY-REPAIR AND LOSS AND DAMAGE Loss and Damage Warranty: 02/07/2024 Battery Size: Rechargeable Color: Black Head Of Research & Insights: 1M Type of Dome: Medium power Type of Wax Guard: PhilipuShield Summary of Fitting: Feedback recruitment manager run. Initially tried vented dome, as Target recommended, but feedback recruitment manager was showing too much high frequency gain was being cut off. Switched to a medium power dome with significant improvement in the high frequency response. Verifit performed and levels adjusted to better reach targets. Target gain set at 100%. Patient was pleased with the sound of the instrument. He felt it was comfortable and clear. Hearing aid care and maintenance were discussed and practiced. The hearing aid was not paired to his phone at this time, as patient uses his right ear on the phone. Recommendations: Patient does not feel a scheduled follow-up is necessary at this time. He will call if a follow-up is needed. Diagnosis Code(s): Primary Diagnosis: H90.3 Bilateral Sensorineural Hearing Loss Signature: Provider: Torrey Mortensen, EMRE-A
== END 2020-11-23 13:11 | disposition home or self-care (01) ==
LOC: HO.HAP 13:10
PROVIDERS: PCP Nurse Practitioner Primary Care; Visit Provider Otolaryngology
DX: Z46.1 Encounter for fitting and adjustment of hearing aid (principal); H90.3 Sensorineural hearing loss, bilateral
CPT/HCPCS: V5011; V5020; V5241; V5257

== ENCOUNTER 2020-11-25 11:43 | Emergency (ER) | payer OTHER, SELFPAY ==
[2020-11-25 14:44] VITALS: BP 177/82; PULSE 73; RESP 18; TEMP 37; O2SAT 95; BMI 34.4
--- NOTE | 2020-11-25 15:07 | CT_ITS ---
EXAMINATION: CT ABDOMEN AND PELVIS WITHOUT CONTRAST CLINICAL INFORMATION: Lower abdominal pain for 4 days COMPARISON: Previous CT of the abdomen and pelvis June 2018 TECHNIQUE: Multidetector volumetric imaging was performed from the superior aspect of the liver through the pubic symphysis. Sagittal and coronal reformatted images were obtained on the technologist's workstation. This CT examination was performed using dose optimization techniques as appropriate, variously including the following: *Automated exposure control *Adjustment of mA and/or kV according to patient size (this includes techniques or standardized protocols for targeted exams where dose is matched to indication/reason for exam; i.e. extremities or head) *Use of iterative reconstruction technique DLP: 792 mGy-cm FINDINGS: LUNG BASES: There is left pleural thickening adjacent left lower lobe scarring or subsegmental atelectasis. Exam. LIVER, GALLBLADDER, AND BILIARY TREE: The liver is enlarged. The liver is slightly low in attenuation questionable for fatty infiltration. The gallbladder is contracted. There is no biliary duct dilatation. PANCREAS: Unremarkable. SPLEEN: Upper normal in size measuring 13 cm in length. ADRENAL GLANDS: Unremarkable. KIDNEYS AND URETERS: The kidneys are normal in size, shape, and attenuation. No hydronephrosis, hydroureter, or calculi seen. No perinephric stranding. BLADDER: Unremarkable. GASTROINTESTINAL TRACT: There is diverticulosis of the colon. There is wall thickening of the sigmoid colon and stranding of the surrounding fat suggestive of diverticulitis small and large bowel is otherwise unremarkable. The unremarkable. The stomach is unremarkable. The appendix is unremarkable. ABDOMINAL WALL: There is a left inguinal hernia containing fat. LYMPH NODES: Normal. VASCULAR: There is evidence of atherosclerotic disease. PELVIC VISCERA: The prostate gland does not appear enlarged. OSSEOUS STRUCTURES: There are degenerative changes of the spine. There is fat in the left upper paraspinal questionable lipoma enlarged probable fatty liver. CT/CT abdomen pelvis wo con IMPRESSION: Sigmoid diverticulitis.
--- NOTE | 2020-11-25 15:28 | ED_ITS ---
HPI - Abdominal Pain General Chief Complaint: Abdominal Pain Stated Complaint: stomach pain Time Seen by Provider: 11/25/20 15:02 Source: patient Mode of arrival: ambulatory Limitations: no limitations History of Present Illness HPI narrative: 60yoM c PMHx of DM, HTN, HLD, CKD stage 4 and obesity presenting to the ED c c/o lower abd pain x 4 days worse today. Denies any fevers, chills, nausea/vomiting, chest pain, shortness of breath, back pain, hematuria, dysuria, constipation or diarrhea or any other symptoms complaints or concerns at this time. Related Data Home Medications Medication Instructions Recorded Confirmed albuterol mcg INHALATION 07/25/20 11/16/20 aspirin [Aspir-81] 81 mg PO DAILY 07/25/20 11/16/20 atorvastatin 80 mg PO DAILY 07/25/20 11/16/20 carvedilol 25 mg PO BID 07/25/20 11/16/20 cholecalciferol (vitamin D3) 25 mcg PO DAILY 07/25/20 11/16/20 [Vitamin D3] clonidine HCl 0.2 mg PO BEDTIME 07/25/20 11/16/20 fenofibrate nanocrystallized 145 mg PO DAILY 07/25/20 11/16/20 gabapentin 600 mg PO BID 07/25/20 11/16/20 minoxidil 2.5 mg PO DAILY 07/25/20 11/16/20 oxcarbazepine 300 mg PO BID 07/25/20 11/16/20 perphenazine 4 mg PO BID 07/25/20 11/16/20 sertraline 100 mg PO DAILY 07/25/20 11/16/20 spironolactone 25 mg PO DAILY 07/25/20 11/16/20 torsemide 20 mg PO DAILY 07/25/20 11/16/20 insulin glargine U-300 conc 300 60 unit SUBCUT DAILY 11/16/20 11/16/20 unit/mL (3 mL) subcutaneous pen Previous Rx's Medication Instructions Recorded pen needle, diabetic 32 gauge x #150 ea 08/01/20 icosapent ethyl 1 gram capsule 2 g PO BID 30 Days #120 cap 08/10/20 lancets 33 gauge #100 ea 08/16/20 [id number]-teviajwrzvkow-[id number] 1 cap PO Q6H PRN #20 cap 08/25/20 [Fioricet] ondansetron 4 mg PO Q6H PRN #20 tab 08/25/20 insulin aspart U-100 100 unit/mL See Rx Instructions SUBCUT TID 30 08/29/20 (3 mL) subcutaneous pen Days #30 ml acetaminophen [Tylenol Extra 500 mg PO Q6H PRN #20 tab 09/01/20 Strength] cyclobenzaprine 5 mg PO Q8H PRN 5 Days #14 tab 09/01/20 lidocaine [Lidoderm] 1 patch TOPICAL DAILY PRN #30 ea 09/01/20 MDD remove after 12 hours lisinopril 40 mg tablet 40 mg PO QAM #30 tab 11/08/20 nifedipine 30 mg tablet,extended 120 mg PO DAILY #120 tab 11/17/20 release acetaminophen [Tylenol Extra 1,000 mg PO QID PRN #14 tab 11/25/20 Strength] levofloxacin 500 mg PO DAILY #3 tab 11/25/20 metronidazole [Flagyl] 500 mg PO BID 7 Days #14 tab 11/25/20 oxycodone 5 mg PO BID PRN #10 tab 11/25/20 Allergies Allergy/AdvReac Type Severity Reaction Status Date / Time No Known Allergies Allergy Verified 11/25/20 14:43 Review of Systems Review of Systems Constitutional : No Weight loss, No Fever, No Chills, No Night Sweats, No Fatigue, NoMalaise ENT/Mouth: No ear pain, No sore throat, No Difficulty swallowing Cardiovascular : No Chest Pain, No SOB, No Dyspnea on Exertion, No Orthopnea, NoEdema, No Palpitations Respiratory : No Cough, No Sputum, No Wheezing, No Dyspnea Gastrointestinal : + Abdominal pain, No Nausea, No Vomiting, No Diarrhea, No Hematochezia, No Melena Genitourinary : No irregular bleeding, No Dysuria, No Urinary Frequency, No Hematuria,No Urinary Incontinence, No Urgency, No Flank Pain Musculoskeletal : No joint pain, No Myalgias, No Joint Swelling Skin : No Skin Lesions, No rash Neuro : No Weakness, No Numbness, No Paresthesias, No Loss of Consciousness, NoDizziness, No Headache Psych : No Social Issues, Heme/Lymph: No Bruising, No Bleeding,No Lymphadenopathy Endocrine : No Polyuria, No Polydipsia, No Temperature Intolerance Yes all other systems are reviewed and are negative Physical Exam Vital Signs: Vital Signs: Last Vital Signs Temp 98.6 F 11/25/20 14:44 Pulse 73 11/25/20 14:44 Resp 18 11/25/20 14:44 BP 177/82 H 11/25/20 14:44 Pulse Ox 95 11/25/20 14:44 Body Mass Index 34.4 vital signs have been reviewed as normal and appeared to be correct. Blood pressure hypertensive. Heart rate normal. Respiration rate normal. Temperature normal. Oxygen saturation normal. Appearance: Alert. Oriented X3. No acute distress. Head: Normal external exam. Normocephalic. Eyes: PERRLA. EOMI. Conjunctiva and sclera normal. Eyelids normal. ENT: Pharynx normal. Uvula midline. Moist mucous membranes. Neck: Normal inspection. Neck supple. FROM. No adenopathy. No meningeal signs. CVS: Normal heart rate and rhythm. Heart sound normal. No murmurs noted. Pulses normal throughout. Respiratory: No respiratory distress. Painless inspiration. Breath sounds normal. No wheezes/rales/rhonchi noted. Chest nontender. No accessory muscle usage noted or decreased air movement noted. Abdomen: Soft and TTP at lower abdomen with guarding. No rigidity. Negative Ortega sign. Bowel sounds normal in all 4 quadrants. No distention noted. No organomegaly noted. No visible injury noted. No rebound tenderness. Negative Rovsing sign. Negative obturator's sign. Negative psoas sign. Back: No CVA tenderness. Full range of motion noted. Skin: Skin warm and dry. Normal skin color. Normal skin turgor. No rashes/lesions/lacerations noted. Extremities: Extremities exhibit normal range of motion. Extremities nontender. Neuro: Oriented X 3. No motor deficit. No sensory deficit. Reflexes normal. Course Course Course Narrative: 60yoM c PMHx of DM, HTN, HLD, CKD stage 4 and obesity presenting to the ED c c/o lower abd pain x 4 days worse today. - labs obtained and patient's BUN/creatinine elevated although similar when compared to prior. Random glucose 247. Otherwise all other labs are within normal limits. - CT scan of abdomen and pelvis revealed sigmoid diverticulitis otherwise no other acute processes noted. Will DC home with antibiotics and symptomatic treatment along with instructions to return if any new or worsening symptoms to follow up with primary care provider. Patient understands agrees the plan. MDM - Abdominal Pain Medical Records Attestation: I reviewed the patient's medical records. Lab Data Attestation: I reviewed the patient's lab results. Result diagrams: 11/25/20 15:40 11/25/20 15:40 Labs: Lab Results 11/25/20 11/25/20 11/25/20 Range/Units 15:40 15:40 15:40 WBC 9.4 (4.8-10.8) X10*3/uL RBC 3.96 L (4.60-5.80) X10*6/uL Hgb 12.2 L (14.0-18.0) g/dl Hct 34.9 L (42-52) % MCV 88.1 (80-98) fL MCH 30.8 (27.0-33.0) pg MCHC 35.0 (31.0-36.0) g/dl RDW 12.7 (11.0-16.0) % Plt Count 155 L (160-400) X10*3/uL MPV 12.2 (9.4-12.4) fL Immature Gran % (Auto) 0.3 (0.0-0.4) % Neut % (Auto) 76.8 H (45-73) % Lymph % (Auto) 14.9 L (20-40) % [place] % (Auto) 5.0 (2-11) % Eos % (Auto) 2.9 (0-4) % Baso % (Auto) 0.1 (0-2) % Lymph # (Auto) 1.4 (1.2-4.9) X10*3/uL [place] # (Auto) 0.5 (0.1-1.2) X10*3/uL Eos # (Auto) 0.3 (0.0-0.4) X10*3/uL Baso # (Auto) 0.0 (0.0-0.2) X10*3/uL Abs Immat Gran (auto) 0.03 (0.00-0.03) X10*3/uL Absolute Neuts (auto) 7.2 (2.0-8.3) X10*3/uL Absolute Nucleated RBC 0.000 (0.0-0.012) X10*3/uL Nucleated RBC % (auto) 0.0 (0.0-0.2) /100WBC Hold Purple Top SEE NOTE PT 11.4 (10.8-13.0) SEC INR 1.0 (0.9-1.1) Sodium (135-145) mmol/L Potassium (3.3-5.1) mmol/L Chloride (96-108) mmol/L Carbon Dioxide (22-29) mmol/L Anion Gap (12-20) BUN (9-16) mg/dL Creatinine (0.5-1.4) mg/dL Estim Creat Clear Calc Estimated GFR Random Glucose (60-115) mg/dL Calcium (8.4-10.2) mg/dL Magnesium (1.6-2.6) mg/dL Total Bilirubin (0.0-1.0) mg/dL Direct Bilirubin (0.0-0.5) mg/dL AST (5-37) U/L ALT (0-40) U/L Alkaline Phosphatase (39-117) U/L Total Protein (6.5-8.0) g/dL Albumin (3.5-5.0) g/dL Ethyl Alcohol mg/dL Coronavirus (PCR) (Negative) Influenza Type A (PCR) (Negative) Influenza Type B (PCR) (Negative) RSV RNA Qual (PCR) (Negative) 11/25/20 11/25/20 11/25/20 Range/Units 15:40 15:40 15:40 WBC (4.8-10.8) X10*3/uL RBC (4.60-5.80) X10*6/uL Hgb (14.0-18.0) g/dl Hct (42-52) % MCV (80-98) fL MCH (27.0-33.0) pg MCHC (31.0-36.0) g/dl RDW (11.0-16.0) % Plt Count (160-400) X10*3/uL MPV (9.4-12.4) fL Immature Gran % (Auto) (0.0-0.4) % Neut % (Auto) (45-73) % Lymph % (Auto) (20-40) % [place] % (Auto) (2-11) % Eos % (Auto) (0-4) % Baso % (Auto) (0-2) % Lymph # (Auto) (1.2-4.9) X10*3/uL [place] # (Auto) (0.1-1.2) X10*3/uL Eos # (Auto) (0.0-0.4) X10*3/uL Baso # (Auto) (0.0-0.2) X10*3/uL Abs Immat Gran (auto) (0.00-0.03) X10*3/uL Absolute Neuts (auto) (2.0-8.3) X10*3/uL Absolute Nucleated RBC (0.0-0.012) X10*3/uL Nucleated RBC % (auto) (0.0-0.2) /100WBC Hold Purple Top PT (10.8-13.0) SEC INR (0.9-1.1) Sodium 140 (135-145) mmol/L Potassium 3.6 (3.3-5.1) mmol/L Chloride 108 (96-108) mmol/L Carbon Dioxide 23 (22-29) mmol/L Anion Gap 13 (12-20) BUN 26 H (9-16) mg/dL Creatinine 3.04 H (0.5-1.4) mg/dL Estim Creat Clear Calc 32.8 Estimated GFR 21 Random Glucose 247 H D (60-115) mg/dL Calcium 7.4 L (8.4-10.2) mg/dL Magnesium 1.9 (1.6-2.6) mg/dL Total Bilirubin 0.4 (0.0-1.0) mg/dL Direct Bilirubin < 0.2 (0.0-0.5) mg/dL AST 15 (5-37) U/L ALT 18 (0-40) U/L Alkaline Phosphatase 91 (39-117) U/L Total Protein 6.0 L (6.5-8.0) g/dL Albumin 3.5 (3.5-5.0) g/dL Ethyl Alcohol < 10 mg/dL Coronavirus (PCR) NEGATIVE (Negative) Influenza Type A (PCR) NEGATIVE (Negative) Influenza Type B (PCR) NEGATIVE (Negative) RSV RNA Qual (PCR) NEGATIVE (Negative) Imaging Data CT scan of abdomen and pelvis with IV contrast: Attestation: I personally reviewed and interpreted this imaging study as follows: Radiologist's impression: FINDINGS: LUNG BASES: There is left pleural thickening adjacent left lower lobe scarring or subsegmental atelectasis. Exam. LIVER, GALLBLADDER, AND BILIARY TREE: The liver is enlarged. The liver is slightly low in attenuation questionable for fatty infiltration. The gallbladder is contracted. There is no biliary duct dilatation. PANCREAS: Unremarkable. SPLEEN: Upper normal in size measuring 13 cm in length. ADRENAL GLANDS: Unremarkable. KIDNEYS AND URETERS: The kidneys are normal in size, shape, and attenuation. No hydronephrosis, hydroureter, or calculi seen. No perinephric stranding. BLADDER: Unremarkable. GASTROINTESTINAL TRACT: There is diverticulosis of the colon. There is wall thickening of the sigmoid colon and stranding of the surrounding fat suggestive of diverticulitis small and large bowel is otherwise unremarkable. The unremarkable. The stomach is unremarkable. The appendix is unremarkable. ABDOMINAL WALL: There is a left inguinal hernia containing fat. LYMPH NODES: Normal. VASCULAR: There is evidence of atherosclerotic disease. PELVIC VISCERA: The prostate gland does not appear enlarged. OSSEOUS STRUCTURES: There are degenerative changes of the spine. There is fat in the left upper paraspinal questionable lipoma enlarged probable fatty liver. CT/CT abdomen pelvis wo con IMPRESSION: Sigmoid diverticulitis. Discharge Plan Discharge Clinical Impression: Sigmoid diverticulitis Patient Disposition: Home, Self-Care Instructions: Diverticulitis (ED), Diverticulitis Diet (ED) Prescriptions: New levofloxacin 500 mg tablet 500 mg PO DAILY Qty: 3 RF: 0 metronidazole [Flagyl] 500 mg tablet 500 mg PO BID 7 Days Qty: 14 RF: 0 acetaminophen [Tylenol Extra Strength] 500 mg tablet 1,000 mg PO QID PRN (Reason: fever or pain) Qty: 14 RF: 0 oxycodone 5 mg tablet 5 mg PO BID PRN (Reason: pain) Qty: 10 RF: 0 No Action (DME) pen needle, diabetic [BD Silvia 2nd Gen Pen Needle] 32 gauge x 5/32 needle See Rx Instructions .ROUTE .MEDSUPPLY Qty: 150 RF: 6 Vascepa 1 gram capsule 2 g PO BID 30 Days Qty: 120 RF: 6 (DME) lancets [TRUEplus Lancets] 33 gauge misc See Rx Instructions .ROUTE .MEDSUPPLY Qty: 100 RF: 11 lisinopril 40 mg tablet 40 mg PO QAM Qty: 30 RF: 6 nifedipine 30 mg tablet extended release 120 mg PO DAILY Qty: 120 RF: 5 atorvastatin 80 mg Tablet 80 mg PO DAILY RF: 0 sertraline 100 mg Tablet 100 mg PO DAILY RF: 0 aspirin [Aspir-81] 81 mg Tablet,Delayed Release (Dr/Ec) 81 mg PO DAILY RF: 0 clonidine HCl 0.2 mg Tablet 0.2 mg PO BEDTIME RF: 0 fenofibrate nanocrystallized 145 mg Tablet 145 mg PO DAILY RF: 0 gabapentin 600 mg Tablet 600 mg PO BID RF: 0 torsemide 20 mg Tablet 20 mg PO DAILY RF: 0 oxcarbazepine 300 mg Tablet 300 mg PO BID RF: 0 minoxidil 2.5 mg Tablet 2.5 mg PO DAILY RF: 0 spironolactone 25 mg Tablet 25 mg PO DAILY RF: 0 perphenazine 4 mg Tablet 4 mg PO BID RF: 0 cholecalciferol (vitamin D3) [Vitamin D3] 25 mcg (1,000 unit) Capsule 25 mcg PO DAILY RF: 0 carvedilol 25 mg Tablet 25 mg PO BID RF: 0 albuterol 90 mcg/actuation Aerosol INHALATION RF: 0 ondansetron 4 mg tablet,disintegrating 4 mg PO Q6H PRN (Reason: nausea and vomiting) Qty: 20 RF: 0 qigrjubktk-kgmvtfzzxgzym-xfbz [Fioricet] 50-300-40 mg capsule 1 cap PO Q6H PRN (Reason: pain) Qty: 20 RF: 0 acetaminophen [Tylenol Extra Strength] 500 mg tablet 500 mg PO Q6H PRN (Reason: pain or fever) Qty: 20 RF: 0 lidocaine [Lidoderm] 5 % adhesive patch,medicated 1 patch topical DAILY MDD remove after 12 hours PRN (Reason: pain) Qty: 30 RF: 0 cyclobenzaprine 5 mg tablet 5 mg PO Q8H PRN (Reason: pain (scale score 7-10)) 5 Days Qty: 14 RF: 0 Toujeo Max U-300 SoloStar 300 unit/mL (3 mL) insulin pen 60 unit subcut DAILY RF: 0 insulin aspart U-100 [Novolog Flexpen U-100 Insulin] 100 unit/mL (3 mL) insulin pen See Rx Instructions SUBCUT TID 30 Days Qty: 30 RF: 3 Referrals: Name,MD David [Primary Care Provider] - 2 days Print Language: Bengali [facility] Past Medical History Attestation statement: The following information was validated with the patient. Medical History Abnormal biopsy of kidney Anxiety Asthma CHF (congestive heart failure) Chronic kidney disease (CKD) Chronic kidney disease, stage 4 (severe) COPD (chronic obstructive pulmonary disease) Depression Depression with anxiety Diabetes mellitus with hyperglycemia, with long-term current use of insulin Diverticulitis Elevated cholesterol Erectile dysfunction History of alcohol abuse History of headache HTN (hypertension) Hx of pancreatitis Hypertension Hypertriglyceridemia On beta doron at home Peptic ulcer Proteinuria Sleep apnea Type 2 diabetes mellitus with chronic kidney disease Type 2 diabetes mellitus with hyperglycemia, with long-term current use of insulin Type 2 diabetes mellitus with polyneuropathy Surgical History Hx of colonoscopy Hx of right inguinal hernia repair Family History Family History Mother Diabetes Social History Social History Household Members: None Alcohol intake: never Smoking Status: Current every day smoker Cigarettes Per Day: 5 Years Smoked: 30 Smoked in Last 30 Days: No Use of substances other than those prescribed or required for medical reasons: No Advance Directives: No Advance Directives Information Provided: No
[2020-11-25 15:46] LABS: MANUAL DIFF FLAG NO
[2020-11-25 15:47] LABS: Basophils Percent Auto 0.1 % (0-2); Eosinophils Absolute Auto 0.3 X10*3/uL (0.0-0.4); Eosinophils Percent Auto 2.9 % (0-4); Hematocrit 34.9 % (42-52); Hemoglobin 12.2 g/dl (14.0-18.0); Imm Gran Abs Auto 0.03 X10*3/uL (0.00-0.03); Imm Gran Pct Auto 0.3 % (0.0-0.4); Lymphocytes Absolute Auto 1.4 X10*3/uL (1.2-4.9); Lymphocytes Percent Auto 14.9 % (20-40); Mean Corpuscular Hemoglobin 30.8 pg (27.0-33.0); Mean Corpuscular Volume 88.1 fL (80-98); Mean Platelet Volume 12.2 fL (9.4-12.4); Monocytes Absolute Auto 0.5 X10*3/uL (0.1-1.2); Neutrophils Absolute Auto 7.2 X10*3/uL (2.0-8.3); Neutrophils Percent Auto 76.8 % (45-73); Platelet Count 155 X10*3/uL (160-400); Red Blood Count 3.96 X10*6/uL (4.60-5.80); Red Cell Distribution Width 12.7 % (11.0-16.0); White Blood Count 9.4 X10*3/uL (4.8-10.8)
[2020-11-25 15:53] LABS: Prothrombin Time 11.4 SEC (10.8-13.0)
[2020-11-25 16:12] LABS: Ethanol < 10 mg/dL
[2020-11-25 16:16] LABS: Alanine Aminotransferase 18 U/L (0-40); Albumin Level 3.5 g/dL (3.5-5.0); Alkaline Phosphatase 91 U/L (39-117); Anion Gap 13 (12-20); Aspartate Amino Transferase 15 U/L (5-37); Bilirubin Direct < 0.2 mg/dL (0.0-0.5); Bilirubin Total 0.4 mg/dL (0.0-1.0); Blood Urea Nitrogen 26 mg/dL (9-16); Calcium 7.4 mg/dL (8.4-10.2); Carbon Dioxide 23 mmol/L (22-29); Chloride 108 mmol/L (96-108); Creatinine Clr Calc Pharmacy 32.8; Estimated Glomerular Filt Rate 21; Glucose Random 247 mg/dL (60-115); Magnesium 1.9 mg/dL (1.6-2.6); Potassium 3.6 mmol/L (3.3-5.1); Sodium 140 mmol/L (135-145)
[2020-11-25 17:01] LABS: Influenza A PCR NEGATIVE (Negative); Influenza B PCR NEGATIVE (Negative); Resp Syncy Virus RNA Qual PCR NEGATIVE (Negative); SARS COV2 PCR INHOUSE NEGATIVE (Negative)
[2020-11-25] MEDS: metroNIDAZOLE 500 MG TABLET PO (17:37)
[2020-11-25] MEDS: levoFLOXacin 750 MG TABLET PO (17:37)
== END 2020-11-25 17:37 | disposition home or self-care (01) ==
PROVIDERS: Physician Assistant Medical; Emergency Provider Emergency Medicine; PCP Internal Medicine Geriatric Medicine
DX: K57.32 Diverticulitis of large intestine without perforation or abscess without bleeding (principal); R10.9 Unspecified abdominal pain; F17.200 Nicotine dependence, unspecified, uncomplicated; Z20.822 Contact with and (suspected) exposure to COVID-19; Z71.6 Tobacco abuse counseling; Z79.899 Other long term (current) drug therapy
CPT/HCPCS: 0241U; 36415; 74176; 80048; 80076; 80320; 83735; 85025; 85610; 99284

== ENCOUNTER 2021-01-22 19:04 | Inpatient (IN) | payer OTHER, SELFPAY ==
--- NOTE | ~2021-01-22 | CT_ITS ---
EXAMINATION: CT ABDOMEN AND PELVIS WITHOUT CONTRAST CLINICAL INFORMATION: Abdominal pain COMPARISON: 11/25/2020 TECHNIQUE: Multidetector volumetric imaging was performed from the superior aspect of the liver through the pubic symphysis. Sagittal and coronal reformatted images were obtained on the technologist's workstation. This CT examination was performed using dose optimization techniques as appropriate, variously including the following: *Automated exposure control *Adjustment of mA and/or kV according to patient size (this includes techniques or standardized protocols for targeted exams where dose is matched to indication/reason for exam; i.e. extremities or head) *Use of iterative reconstruction technique DLP: 792 mGy-cm FINDINGS: The lack of intravenous contrast limits evaluation of the solid visceral organs including the liver, spleen, pancreas, and kidneys. LUNG BASES: There is some atelectasis in the left lower lobe. Normal heart size. No pleural effusion. LIVER, GALLBLADDER, AND BILIARY TREE: Liver is enlarged and diffusely low density consistent with diffuse hepatic steatosis. No concerning focal lesion seen. No gross biliary ductal dilation. The gallbladder is unremarkable with no evidence of radiopaque gallstones, gallbladder wall thickening, or obvious pericholecystic inflammatory changes. PANCREAS: There is subtle fat stranding surrounding the inferior aspect of the pancreatic head and transverse portion of the duodenum. This is new from the prior study. SPLEEN: Limited non-contrast evaluation is normal. ADRENAL GLANDS: Normal; no adrenal mass. KIDNEYS AND URETERS: Limited non-contrast evaluation is normal. No hydronephrosis, hydroureter, or calculi seen. No perinephric stranding. GASTROINTESTINAL TRACT: Stomach and small bowel are nondilated. Normal appendix. Scattered colonic diverticulosis. No evidence of colitis or diverticulitis. ABDOMINAL WALL: There is a fat-containing left inguinal hernia. LYMPH NODES: No pathologically enlarged lymph nodes in the abdomen or pelvis. VASCULAR: Normal caliber abdominal aorta. BLADDER: Unremarkable. PELVIC VISCERA: Normal noncontrast appearance of the prostate and seminal vesicles. OSSEOUS STRUCTURES: No acute or suspicious osseous abnormalities. There is an intramuscular lipoma of the left posterior back paravertebral musculature. CT/CT abdomen pelvis wo con IMPRESSION: There is subtle fluid and fat stranding adjacent the inferior pancreatic head and transverse portion of the duodenum. Most likely this is secondary to pancreatitis. Consider correlation with serum enzymes. Primary inflammatory process of the duodenum is also possible but considered less likely. Hepatomegaly and diffuse hepatic steatosis.
--- NOTE | ~2021-01-22 | US_ITS ---
EXAMINATION: US ABDOMEN LIMITED CLINICAL INFORMATION: Acute pancreatitis, rule out gallstones. COMPARISON: CT abdomen and pelvis 01/22/2021. Renal ultrasound 08/29/2017 and 07/06/2015. TECHNIQUE: Real-time imaging of the right upper quadrant abdominal viscera. FINDINGS: PANCREAS: The head of the pancreas is normal-appearing. The body and tail are not well visualized. The visualized main pancreatic duct is normal in size measuring 0.3 cm. LIVER: Liver echotexture is increased probably representing fatty infiltration. The liver contour is normal. The liver is enlarged. There is a hypoechoic area adjacent to the gallbladder, characteristic location of focal fatty sparing. No other focal hepatic lesion. There is no intrahepatic biliary duct dilatation seen. GALLBLADDER: Normal. The gallbladder is physiologically distended without evidence of stones, sludge, polyps, wall thickening or pericholecystic fluid. COMMON BILE DUCT: Normal in caliber measuring 0.7 cm in diameter. RIGHT KIDNEY: Normal. No hydronephrosis. No renal calculi or focal parenchymal lesions. The kidney measures 11.3 cm in maximum dimension. FREE FLUID: None. US/US abdomen limited IMPRESSION: Enlarged echogenic liver probably representing fatty infiltration. Normal-appearing gallbladder. No gallstone seen. Limited visualization of the pancreas.
[2021-01-22 19:10] VITALS: BP 200/88; PULSE 68; RESP 22; TEMP 36.8; O2SAT 98; BMI 34.7
--- NOTE | 2021-01-22 21:59 | ECG_ITS ---
Test Reason : ABD PAIN Blood Pressure : / mmHG Vent. Rate : 066 BPM Atrial Rate : 066 BPM P-R Int : 216 ms QRS Dur : 130 ms QT Int : 428 ms P-R-T Axes : 061 -52 043 degrees QTc Int : 448 ms Sinus rhythm with 1st degree A-V block Left axis deviation Left ventricular hypertrophy with QRS widening Nonspecific T wave abnormality Abnormal ECG When compared to the previous EKG of No significant changes seen Referred By: John Campbell Electronically Signed By:Davon Olivares
[2021-01-22 22:13] LABS: MANUAL DIFF FLAG NO
[2021-01-22 22:16] LABS: Basophils Percent Auto 0.3 % (0-2); Eosinophils Absolute Auto 0.5 X10*3/uL (0.0-0.4); Eosinophils Percent Auto 4.9 % (0-4); Hematocrit 33.9 % (42-52); Imm Gran Abs Auto 0.04 X10*3/uL (0.00-0.03); Imm Gran Pct Auto 0.4 % (0.0-0.4); Lymphocytes Absolute Auto 1.9 X10*3/uL (1.2-4.9); Lymphocytes Percent Auto 18.4 % (20-40); Mean Corpuscular HGB Conc 35.4 g/dl (31.0-36.0); Mean Corpuscular Hemoglobin 31.6 pg (27.0-33.0); Mean Corpuscular Volume 89.2 fL (80-98); Mean Platelet Volume 11.9 fL (9.4-12.4); Monocytes Absolute Auto 0.6 X10*3/uL (0.1-1.2); Monocytes Percent Auto 5.5 % (2-11); Neutrophils Absolute Auto 7.4 X10*3/uL (2.0-8.3); Neutrophils Percent Auto 70.5 % (45-73); Platelet Count 185 X10*3/uL (160-400); Red Cell Distribution Width 13.2 % (11.0-16.0); White Blood Count 10.5 X10*3/uL (4.8-10.8)
[2021-01-22 22:22] LABS: OBS Int Ctl Valid YES; OBS1 NEGATIVE (NEGATIVE)
[2021-01-22 22:23] LABS: Prothrombin Time 11.3 SEC (10.8-13.0)
[2021-01-22 22:40] LABS: Partial Thromboplastin Time 38.6 SEC (24.1-38.0)
[2021-01-22 22:47] LABS: Alanine Aminotransferase 22 U/L (0-40); Albumin Level 3.9 g/dL (3.5-5.0); Alkaline Phosphatase 78 U/L (39-117); Anion Gap 16 (12-20); Aspartate Amino Transferase 20 U/L (5-37); Bilirubin Direct < 0.2 mg/dL (0.0-0.5); Bilirubin Total 0.4 mg/dL (0.0-1.0); Blood Urea Nitrogen 47 mg/dL (9-16); Calcium 8.1 mg/dL (8.4-10.2); Carbon Dioxide 24 mmol/L (22-29); Chloride 108 mmol/L (96-108); Creatinine Clr Calc Pharmacy 28.3; Estimated Glomerular Filt Rate 18; Glucose Random 86 mg/dL (60-115); Potassium 3.8 mmol/L (3.3-5.1); Sodium 144 mmol/L (135-145); Total Protein 6.9 g/dL (6.5-8.0)
[2021-01-22 22:48] VITALS: BP 181/67; PULSE 67; RESP 18; TEMP 36.9; O2SAT 98
[2021-01-22] MEDS: Morphine Sulfate 2 MG/ML CARTRIDGE IVPUSH (22:50)
[2021-01-22 23:05] LABS: Lipase 278 U/L (8-78)
--- NOTE | 2021-01-22 23:46 | PC.NURSE ---
Report previously received from Tanesha RN at change of shift. While this RN completing rounds and documenting the patient could be heard yelling out I need water before ringing his call simental. THis RN to bedside and pt requesting water and/or ice chips. Pt advised that most time patient's are not able to eat and/or drink until the resutls of their imaging has returned but this RN did explain that she would consult with the provider. Pt reporting 10/10 pain as he denies previously being medication; when this RN explained that he was medicated approximately 1 hour ago he reported well it didn't do anything . THis RN will update the provider of the patient's continued pain and request for additional medication.
[2021-01-23] VITALS (16 sets, daily range): BP systolic 155–184; BP diastolic 66–103; PULSE 46–77; RESP 16–20; TEMP 35.8–36.3; O2SAT 96–100
[2021-01-23] MEDS: Morphine Sulfate 4 MG/ML CARTRIDGE IVPUSH ×4 (01:21→17:52)
--- NOTE | 2021-01-23 01:24 | PC.NURSE ---
PT MEDICATED PER DEC FOR 10/10 RIGHT ABDOMINAL PAIN. PT ALSO GIVEN ICE CHIPS PER CORNELIO AND MD BERNARD MANZANARES. PT WITH CALL PEREZ IN REACH AND WILL CONTINUE TO BE MONITORED.
--- NOTE | 2021-01-23 01:42 | ED.ABDPAIN ---
HPI - Abdominal Pain General Chief Complaint: Abdominal Pain Stated Complaint: Abdominal pain Time Seen by Provider: 01/22/21 21:58 Source: patient Mode of arrival: ambulatory Limitations: no limitations History of Present Illness HPI narrative: Patient presents to the ED for upper abdominal pain for the past 3 days with nausea. Patient denies any lower abdominal pain, chest pain, shortness of breath, fever, chills, dysuria, hematuria, or flank pain Related Data Home Medications Medication Instructions Recorded Confirmed albuterol mcg INHALATION 07/25/20 11/16/20 aspirin [Aspir-81] 81 mg PO DAILY 07/25/20 11/16/20 atorvastatin 80 mg PO DAILY 07/25/20 11/16/20 carvedilol 25 mg PO BID 07/25/20 11/16/20 cholecalciferol (vitamin D3) 25 mcg PO DAILY 07/25/20 11/16/20 [Vitamin D3] clonidine HCl 0.2 mg PO BEDTIME 07/25/20 11/16/20 fenofibrate nanocrystallized 145 mg PO DAILY 07/25/20 11/16/20 gabapentin 600 mg PO BID 07/25/20 11/16/20 minoxidil 2.5 mg PO DAILY 07/25/20 11/16/20 oxcarbazepine 300 mg PO BID 07/25/20 11/16/20 perphenazine 4 mg PO BID 07/25/20 11/16/20 sertraline 100 mg PO DAILY 07/25/20 11/16/20 spironolactone 25 mg PO DAILY 07/25/20 11/16/20 torsemide 20 mg PO DAILY 07/25/20 11/16/20 insulin glargine U-300 conc 300 60 unit SUBCUT DAILY 11/16/20 11/16/20 unit/mL (3 mL) subcutaneous pen Previous Rx's Medication Instructions Recorded pen needle, diabetic 32 gauge x #150 ea 08/01/20 icosapent ethyl 1 gram capsule 2 g PO BID 30 Days #120 cap 08/10/20 lancets 33 gauge #100 ea 08/16/20 nakoamnrtd-dxvdmjjbhceol-pjdh 1 cap PO Q6H PRN #20 cap 08/25/20 [Fioricet] ondansetron 4 mg PO Q6H PRN #20 tab 08/25/20 insulin aspart U-100 100 unit/mL See Rx Instructions SUBCUT TID 30 08/29/20 (3 mL) subcutaneous pen Days #30 ml acetaminophen [Tylenol Extra 500 mg PO Q6H PRN #20 tab 09/01/20 Strength] cyclobenzaprine 5 mg PO Q8H PRN 5 Days #14 tab 09/01/20 lidocaine [Lidoderm] 1 patch TOPICAL DAILY PRN #30 ea 09/01/20 MDD remove after 12 hours lisinopril 40 mg tablet 40 mg PO QAM #30 tab 11/08/20 nifedipine 30 mg tablet,extended 120 mg PO DAILY #120 tab 11/17/20 release acetaminophen [Tylenol Extra 1,000 mg PO QID PRN #14 tab 11/25/20 Strength] levofloxacin 500 mg PO DAILY #3 tab 11/25/20 metronidazole [Flagyl] 500 mg PO BID 7 Days #14 tab 11/25/20 oxycodone 5 mg PO BID PRN #10 tab 11/25/20 Allergies Allergy/AdvReac Type Severity Reaction Status Date / Time No Known Allergies Allergy Verified 01/22/21 19:16 Review of Systems Review of Systems Yes all other systems are reviewed and are negative Constitutional: Reports as per HPI and Reports no additional constitutional complaints Eyes: Reports as per HPI and Reports no additional eye complaints Reports system reviewed and no additional complaints, except as documented and Reports as per HPI Cardiovascular: Reports as per HPI and Reports no additional cardiovascular complaints Respiratory: Reports as per HPI and Reports no additional respiratory complaints Gastrointestinal: Reports as per HPI, Reports no additional gastrointestinal complaints and Reports abdominal pain (Upper abdomen) Genitourinary: Reports no additional male genitourinary complaints and Reports as per HPI Musculoskeletal: Reports no additional musculoskeletal complaints and Reports as per HPI Reports system reviewed and no additional complaints, except as documented and Reports as per HPI Psychiatric: Reports no additional psychiatric complaints and Reports as per HPI Physical Exam Vital Signs: Vital Signs: Last Vital Signs Temp 98.4 F 01/22/21 22:48 Pulse 65 01/23/21 01:23 Resp 18 01/23/21 01:23 BP 167/66 H 01/23/21 01:23 Pulse Ox 96 01/23/21 01:23 Body Mass Index 34.7 Const: General: cooperative, healthy appearing, comfortable, no acute distress, well developed, alert, awake and Physically active Orientation/consciousness: patient oriented x3 HENMT: Head: Yes normal to inspection, Yes No palpable skull fracture present, Yes normocephalic and Yes atraumatic Eyes: General: appearance normal, both eyes and all related structures Neck: Neck: Yes normal visual inspection, Yes full ROM, Yes no lymphadenopathy, Yes no meningeal signs, Yes trachea midline, Yes supple and No tender Chest: Chest palpation & inspection: normal inspection of the chest and normal palpation of entire chest wall Resp: Effort & Inspection: normal respiratory effort and able to speak in complete sentences Auscultation: clear to auscultation bilaterally Cardio: Jugular venous distension: no JVD Heart sounds: S1 normal heart sound present and S2 normal heart sound present GI: Other: Rectal exam negative for any black stool or daiana blood. Inspection: Yes normal to inspection Palpation (GI): Tenderness to palpation present (GI) (Upper abdomen) in the epigastrum; not in the LLQ, not in the RLQ, not in the LUQ, not in the RUQ, not periumbilically, not suprapubicly, Ortega's sign negative, obturator sign negative, psoas sign negative, with no rebound tenderness, Rovsing's sign negative and no other, no guarding and not rigid : General: No CVA tenderness and Yes no CVA tenderness Back/Spine/Pelvis: Back: no CVA tenderness, No CVA tenderness and No back tenderness Skin: General skin exam: no rashes or lesions noted and elasticity normal Neuro: General: patient oriented x3, no meningeal signs and CN's II-XI intact bilaterally Extrem: General: Yes normal to inspection and Yes full ROM Psych: Appearance: grossly normal, well kempt and not disheveled Course Course Course Narrative: Patient will have labs including EKG and troponin due to risk factors most likely will send for CT imaging. Reevaluation(s) Reevaluation #1: CT scan shows pancreatitis. Patient still having pain after 6 use into the IV morphine. EKG negative for STEMI. Troponin 18. Lipase 274 Reevaluation #2: Patient admitted to the hospital for pancreatitis due to non relief from pain meds. Patient agreeable to plan. Hospitalist aware of case and accepted case MDM - Abdominal Pain MDM Narrative Medical decision making narrative: Pancreatitis Lab Data Result diagrams: 01/22/21 22:07 03/28/21 22:07 Labs: Lab Results 01/22/21 01/22/21 01/22/21 Range/Units 22:07 22:07 22:07 WBC 10.5 (4.8-10.8) X10*3/uL RBC 3.80 L (4.60-5.80) X10*6/uL Hgb 12.0 L (14.0-18.0) g/dl Hct 33.9 L (42-52) % MCV 89.2 (80-98) fL MCH 31.6 (27.0-33.0) pg MCHC 35.4 (31.0-36.0) g/dl RDW 13.2 (11.0-16.0) % Plt Count 185 (160-400) X10*3/uL MPV 11.9 (9.4-12.4) fL Immature Gran % (Auto) 0.4 (0.0-0.4) % Neut % (Auto) 70.5 (45-73) % Lymph % (Auto) 18.4 L (20-40) % [place] % (Auto) 5.5 (2-11) % Eos % (Auto) 4.9 H (0-4) % Baso % (Auto) 0.3 (0-2) % Lymph # (Auto) 1.9 (1.2-4.9) X10*3/uL [place] # (Auto) 0.6 (0.1-1.2) X10*3/uL Eos # (Auto) 0.5 H (0.0-0.4) X10*3/uL Baso # (Auto) 0.0 (0.0-0.2) X10*3/uL Abs Immat Gran (auto) 0.04 H (0.00-0.03) X10*3/uL Absolute Neuts (auto) 7.4 (2.0-8.3) X10*3/uL Absolute Nucleated RBC 0.000 (0.0-0.012) X10*3/uL Nucleated RBC % (auto) 0.0 (0.0-0.2) /100WBC PT 11.3 (10.8-13.0) SEC INR 1.0 (0.9-1.1) APTT 38.6 H (24.1-38.0) SEC Sodium 144 (135-145) mmol/L Potassium 3.8 (3.3-5.1) mmol/L Chloride 108 (96-108) mmol/L Carbon Dioxide 24 (22-29) mmol/L Anion Gap 16 (12-20) BUN 47 H D (9-16) mg/dL Creatinine 3.54 H (0.5-1.4) mg/dL Estim Creat Clear Calc 28.3 Estimated GFR 18 Random Glucose 86 D (60-115) mg/dL Calcium 8.1 L D (8.4-10.2) mg/dL Total Bilirubin 0.4 (0.0-1.0) mg/dL Direct Bilirubin < 0.2 (0.0-0.5) mg/dL AST 20 (5-37) U/L ALT 22 (0-40) U/L Alkaline Phosphatase 78 (39-117) U/L Troponin I High Sens (<3.5-35.0) ng/L Total Protein 6.9 (6.5-8.0) g/dL Albumin 3.9 (3.5-5.0) g/dL Lipase 278 H (8-78) U/L Stool Occult Blood (NEGATIVE) 01/22/21 01/22/21 Range/Units 22:07 22:08 WBC (4.8-10.8) X10*3/uL RBC (4.60-5.80) X10*6/uL Hgb (14.0-18.0) g/dl Hct (42-52) % MCV (80-98) fL MCH (27.0-33.0) pg MCHC (31.0-36.0) g/dl RDW (11.0-16.0) % Plt Count (160-400) X10*3/uL MPV (9.4-12.4) fL Immature Gran % (Auto) (0.0-0.4) % Neut % (Auto) (45-73) % Lymph % (Auto) (20-40) % [place] % (Auto) (2-11) % Eos % (Auto) (0-4) % Baso % (Auto) (0-2) % Lymph # (Auto) (1.2-4.9) X10*3/uL [place] # (Auto) (0.1-1.2) X10*3/uL Eos # (Auto) (0.0-0.4) X10*3/uL Baso # (Auto) (0.0-0.2) X10*3/uL Abs Immat Gran (auto) (0.00-0.03) X10*3/uL Absolute Neuts (auto) (2.0-8.3) X10*3/uL Absolute Nucleated RBC (0.0-0.012) X10*3/uL Nucleated RBC % (auto) (0.0-0.2) /100WBC PT (10.8-13.0) SEC INR (0.9-1.1) APTT (24.1-38.0) SEC Sodium (135-145) mmol/L Potassium (3.3-5.1) mmol/L Chloride (96-108) mmol/L Carbon Dioxide (22-29) mmol/L Anion Gap (12-20) BUN (9-16) mg/dL Creatinine (0.5-1.4) mg/dL Estim Creat Clear Calc Estimated GFR Random Glucose (60-115) mg/dL Calcium (8.4-10.2) mg/dL Total Bilirubin (0.0-1.0) mg/dL Direct Bilirubin (0.0-0.5) mg/dL AST (5-37) U/L ALT (0-40) U/L Alkaline Phosphatase (39-117) U/L Troponin I High Sens 18.0 (<3.5-35.0) ng/L Total Protein (6.5-8.0) g/dL Albumin (3.5-5.0) g/dL Lipase (8-78) U/L Stool Occult Blood NEGATIVE (NEGATIVE) ECG Data Interpretation: Sinus rhythm with first-degree AV block. Ventricular rate 66. GA interval 216. QRS 130. QTC 448. Negative STEMI Discharge Plan Discharge Clinical Impression: Acute pancreatitis Patient Disposition: Admitted As [facility] Past Medical History Medical History Abnormal biopsy of kidney Anxiety Asthma CHF (congestive heart failure) Chronic kidney disease (CKD) Chronic kidney disease, stage 4 (severe) COPD (chronic obstructive pulmonary disease) Depression Depression with anxiety Diabetes mellitus with hyperglycemia, with long-term current use of insulin Diverticulitis Elevated cholesterol Erectile dysfunction History of alcohol abuse History of headache HTN (hypertension) Hx of pancreatitis Hypertension Hypertriglyceridemia On beta doron at home Peptic ulcer Proteinuria Sleep apnea Type 2 diabetes mellitus with chronic kidney disease Type 2 diabetes mellitus with hyperglycemia, with long-term current use of insulin Type 2 diabetes mellitus with polyneuropathy Surgical History Hx of colonoscopy Hx of right inguinal hernia repair Family History Family History Mother Diabetes Social History Social History Household Members: None Alcohol intake: never Smoking Status: Light tobacco smoker Cigarettes Per Day: 5 Years Smoked: 30 Use of substances other than those prescribed or required for medical reasons: No Advance Directives: No Advance Directives Information Provided: Yes
[2021-01-23 01:50] LABS: Triglycerides 671 mg/dL
[2021-01-23 02:06] LABS: Glucose Urine UA NEG (NEG); Leukocyte Esterase Urine NEG (NEG); Nitrite Urine NEG (NEG); Specific Gravity - Urine 1.025 (1.005-1.025); Urine Blood 1+ (NEG); Urine Ketones NEG (NEG); Urine Protein 3+ MG/DL (NEG-TRACE)
[2021-01-23 02:07] LABS: Appearance Urine CLEAR; Color Urine YELLOW
[2021-01-23 02:12] LABS: Amorphous Sediment Urine 1+ /LPF; Granular Casts Urine 0-2 /LPF; Hyaline Casts Urine 0-2 /LPF; RBC Urine 0 /HPF (0); Sperm Urine NOTED; Squamous Epithelial Cell Urine TRACE /LPF; WBC Urine 0-2 /HPF (0-4)
[2021-01-23 02:17] LABS: COVID-19 Test Negative (Negative); IDNOW Serial# 9DD0AD1C
[2021-01-23 04:54] LABS: Glucose, Whole Blood 104 mg/dL (60-115)
--- NOTE | 2021-01-23 04:55 | PC.NURSE ---
report provided to lalo BANSAL
--- NOTE | 2021-01-23 05:08 | P.HPHOSP_ITS ---
History of Present Illness Date of Service: 01/23/21 Chief Complaint: Abdominal pain This is a 60-year-old male with past medical history of hypertension, diabetes, hyperlipidemia, spondylosis, CHF, COPD, depression anxiety who presents to the hospital with complaints of abdominal pain. The abdominal pain is located in the epigastric region, radiating to the right side, associated with low appetite but no nausea or vomiting, no diarrhea constipation. The pain started 3 days prior to presentation, worsening, therefore patient decided to come to the hospital. Patient denies using alcohol although reported in his history in the charts. He has no fever or chills, no chest pain, no shortness of breath, no palpitations, no urinary symptoms, no lower extremity edema. On arrival to the ED patient hemodynamically stable with no significant abnormal vitals except for a blood pressure of 200/88. Labs are significant for WBC count of 10.5, hemoglobin of 12, hematocrit 33.9, BUN of 47, creatinine of 3.54 which is slightly elevated from his baseline of 3, lipase of 278, UA negative, CT abdomen shows subtle fluid and fat stranding adjacent to the inferior pancreatic head and transverse portion of the duodenum. Most likely secondary to pancreatitis. Past medical history as below and confirmed with patient Review of Systems Review of Systems: Yes all other systems are reviewed and are negative [facility] Medical History Abnormal biopsy of kidney Anxiety Asthma CHF (congestive heart failure) Chronic kidney disease (CKD) Chronic kidney disease, stage 4 (severe) COPD (chronic obstructive pulmonary disease) Depression Depression with anxiety Diabetes mellitus with hyperglycemia, with long-term current use of insulin Diverticulitis Elevated cholesterol Erectile dysfunction History of alcohol abuse History of headache HTN (hypertension) Hx of pancreatitis Hypertension Hypertriglyceridemia On beta doron at home Peptic ulcer Proteinuria Sleep apnea Type 2 diabetes mellitus with chronic kidney disease Type 2 diabetes mellitus with hyperglycemia, with long-term current use of insul in Type 2 diabetes mellitus with polyneuropathy Family History Mother Diabetes Surgical History Hx of colonoscopy Hx of right inguinal hernia repair Social History Household Members: None Alcohol intake: never Smoking Status: Light tobacco smoker Cigarettes Per Day: 5 Years Smoked: 30 Use of substances other than those prescribed or required for medical reasons: No Advance Directives: No Advance Directives Information Provided: Yes Meds Allergies Allergy/AdvReac Type Severity Reaction Status Date / Time No Known Allergies Allergy Verified 01/22/21 19:16 Active Medications: Current Medications Generic Name Dose Route Start Last Admin Trade Name Freq PRN Reason Stop Dose Admin Acetaminophen 650 mg 01/23/21 04:18 Acetaminophen 325 Mg Tablet PO Q6H PRN Pain, Mild (Pain Scale 1-3) Docusate Sodium 100 mg 01/23/21 04:18 Docusate Sodium 100 Mg Capsule PO DAILY PRN Constipation Heparin Sodium (Porcine) 5,000 unit 01/23/21 06:00 Heparin Sodium,Porcine 5,000 Unit/Ml Vial SUBCUT Q12H [facility] Lactated Ringer's 1,000 mls @ 200 mls/hr 01/23/21 03:15 Lr IVCONT .Q5H THAO Morphine Sulfate 4 mg 01/23/21 04:18 Morphine Sulfate 4 Mg/Ml Cartridge IVPUSH Q4H PRN Pain, Severe (Pain Scale 7-10) Ondansetron HCl 4 mg 01/23/21 04:18 Ondansetron Hcl 4 Mg/2 Ml Vial IVPUSH Q8H PRN Nausea and Vomiting Sodium Chloride 3 ml 01/23/21 08:00 0.9 % Sodium Chloride Flush 3 Ml Syringe IVFLUSH QSHIFT [facility] Home Medications Medication Instructions Recorded Confirmed Last Taken Type albuterol mcg INHALATION 07/25/20 11/16/20 Unknown History aspirin [Aspir-81] 81 mg PO DAILY 07/25/20 01/23/21 07/27/20 History atorvastatin 80 mg PO DAILY 07/25/20 01/23/21 Unknown History carvedilol 25 mg PO BID 07/25/20 01/23/21 Unknown History cholecalciferol (vitamin D3) 25 mcg PO DAILY 07/25/20 01/23/21 Unknown History [Vitamin D3] clonidine HCl 0.2 mg PO BEDTIME 07/25/20 11/16/20 Unknown History fenofibrate nanocrystallized 145 mg PO DAILY 07/25/20 01/23/21 Unknown History gabapentin 600 mg PO TID 07/25/20 01/23/21 Unknown History minoxidil 2.5 mg PO DAILY 07/25/20 11/16/20 Unknown History oxcarbazepine 300 mg PO BID 07/25/20 01/23/21 Unknown History perphenazine 4 mg PO BID 07/25/20 01/23/21 Unknown History sertraline 100 mg PO DAILY 07/25/20 01/23/21 Unknown History spironolactone 50 mg PO DAILY 07/25/20 01/23/21 Unknown History torsemide 20 mg PO DAILY 07/25/20 01/23/21 Unknown History fluticasone propionate [Flovent 4 puff INHALATION BID 01/23/21 01/23/21 Unknown History HFA] insulin aspart U-100 [Novolog See Rx Instructions .ROUTE .COMPLEX 01/23/21 01/23/21 Unknown History Flexpen U-100 Insulin] insulin glargine U-300 conc 60 unit SUBCUT DAILY 01/23/21 01/23/21 Unknown History [Toujeo Max U-300 SoloStar] tramadol 2 tab PO Q8H PRN 01/23/21 01/23/21 Unknown History zolpidem 1 tab PO BEDTIME 01/23/21 01/23/21 Unknown History Physical Exam Vital Signs and Narrative: Vital Signs: Last Vital Signs Temp 98.4 F 01/22/21 22:48 Pulse 59 01/23/21 02:59 Resp 16 01/23/21 02:59 BP 184/73 H 01/23/21 02:59 Pulse Ox 97 01/23/21 02:59 Body Mass Index 34.7 Const: General: cooperative and no acute distress Orientation/consciousness: patient oriented x3 Eyes: General: appearance normal, both eyes and all related structures Resp: Effort & Inspection: normal respiratory effort and able to speak in complete sentences Auscultation: clear to auscultation bilaterally Cardio: Rate: regular rate Rhythm: regular rhythm GI: Other: Tender to palpation in the epigastric region, no rebound or guarding Palpation (GI): Soft to palpation Auscultation: normal bowel sounds Skin: General skin exam: no rashes or lesions noted Neuro: General: patient oriented x3 Cognition (Neuro): normal cognition Extrem: General: Yes normal to inspection and Yes no pedal edema Results Labs CBC and Chem 7: 01/22/21 22:07 01/22/21 22:07 Labs: Laboratory Results - last 24 hr 01/22/21 01/22/21 01/22/21 22:07 22:07 22:07 MCV 89.2 MCH 31.6 MCHC 35.4 RDW 13.2 Plt Count 185 MPV 11.9 Immature Gran % (Auto) 0.4 Neut % (Auto) 70.5 Lymph % (Auto) 18.4 L [place] % (Auto) 5.5 Eos % (Auto) 4.9 H Baso % (Auto) 0.3 Lymph # (Auto) 1.9 [place] # (Auto) 0.6 Eos # (Auto) 0.5 H Baso # (Auto) 0.0 Abs Immat Gran (auto) 0.04 H Absolute Neuts (auto) 7.4 Absolute Nucleated RBC 0.000 Nucleated RBC % (auto) 0.0 PT 11.3 INR 1.0 APTT 38.6 H Anion Gap 16 Estim Creat Clear Calc 28.3 Estimated GFR 18 POC Glucose Random Glucose 86 D Calcium 8.1 L D Total Bilirubin 0.4 Direct Bilirubin < 0.2 AST 20 ALT 22 Alkaline Phosphatase 78 Troponin I High Sens Total Protein 6.9 Albumin 3.9 Triglycerides 671 Lipase 278 H Urine Color Urine Appearance Urine pH Ur Specific [place] Urine Protein Urine Glucose (UA) Urine Ketones Urine Blood Urine Nitrite Ur Leukocyte Esterase Urine RBC Urine WBC Ur Squamous Epith Cells Amorphous Sediment Urine Bacteria Hyaline Casts Granular Casts Urine Sperm Stool Occult Blood COVID-19 (RIGOBERTO) COVID-19 Clin Com 01/22/21 01/22/21 01/23/21 22:07 22:08 01:56 MCV MCH MCHC RDW Plt Count MPV Immature Gran % (Auto) Neut % (Auto) Lymph % (Auto) [place] % (Auto) Eos % (Auto) Baso % (Auto) Lymph # (Auto) [place] # (Auto) Eos # (Auto) Baso # (Auto) Abs Immat Gran (auto) Absolute Neuts (auto) Absolute Nucleated RBC Nucleated RBC % (auto) PT INR APTT Anion Gap Estim Creat Clear Calc Estimated GFR POC Glucose Random Glucose Calcium Total Bilirubin Direct Bilirubin AST ALT Alkaline Phosphatase Troponin I High Sens 18.0 Total Protein Albumin Triglycerides Lipase Urine Color Urine Appearance Urine pH Ur Specific [place] Urine Protein Urine Glucose (UA) Urine Ketones Urine Blood Urine Nitrite Ur Leukocyte Esterase Urine RBC Urine WBC Ur Squamous Epith Cells Amorphous Sediment Urine Bacteria Hyaline Casts Granular Casts Urine Sperm Stool Occult Blood NEGATIVE COVID-19 (RIGOBERTO) Negative COVID-19 Clin Com See Note 01/23/21 01/23/21 01:56 04:51 MCV MCH MCHC RDW Plt Count MPV Immature Gran % (Auto) Neut % (Auto) Lymph % (Auto) [place] % (Auto) Eos % (Auto) Baso % (Auto) Lymph # (Auto) [place] # (Auto) Eos # (Auto) Baso # (Auto) Abs Immat Gran (auto) Absolute Neuts (auto) Absolute Nucleated RBC Nucleated RBC % (auto) PT INR APTT Anion Gap Estim Creat Clear Calc Estimated GFR POC Glucose 104 Random Glucose Calcium Total Bilirubin Direct Bilirubin AST ALT Alkaline Phosphatase Troponin I High Sens Total Protein Albumin Triglycerides Lipase Urine Color YELLOW Urine Appearance CLEAR Urine pH 6.0 Ur Specific [place] 1.025 Urine Protein 3+ H Urine Glucose (UA) NEG Urine Ketones NEG Urine Blood 1+ H Urine Nitrite NEG Ur Leukocyte Esterase NEG Urine RBC 0 Urine WBC 0-2 Ur Squamous Epith Cells TRACE Amorphous Sediment 1+ Urine Bacteria NONE Hyaline Casts 0-2 Granular Casts 0-2 Urine Sperm NOTED Stool Occult Blood COVID-19 (RIGOBERTO) COVID-19 Clin Com Imaging Radiologist's Impressions: Impressions Abdomen/Pelvis CT 01/22/21 22:28 IMPRESSION: There is subtle fluid and fat stranding adjacent the inferior pancreatic head and transverse portion of the duodenum. Most likely this is secondary to pancreatitis. Consider correlation with serum enzymes. Primary inflammatory process of the duodenum is also possible but considered less likely. Hepatomegaly and diffuse hepatic steatosis. Assessment and Plan (1) Acute pancreatitis: Status: Acute (2) Abdominal pain: Status: Acute (3) Acute kidney injury superimposed on CKD: Status: Acute This is a 6-year-old male with on extensive past medical history as mentioned above who presents to the hospital with complaints of abdominal pain found to have acute pancreatitis # abdominal pain - secondary to acute pancreatitis versus duodenitis - has elevated lipase which can be present in both situations - at this time will treat him for pancreatitis as below , will add pantoprazole IV daily - pain control # acute pancreatitis - has epigastric pain, CT evidence of pancreatitis, as well as elevated lipase - etiology unclear although patient denies using alcohol, he does have history of alcohol abuse - CT abdomen is negative for any gallbladder disease - triglycerides less than 1000 - reports history of pancreatitis - will keep him NPO, start him on aggressive IV fluid, pain management # MARNI on CKD - possibly secondary to acute pancreatitis - start him on IV fluids - follow BMP # diabetes mellitus - will resume home medication of insulin - low-dose sliding scale - diabetic diet # hypertension - elevated - resume home medications # COPD - no evidence of exacerbation - continue home inhalers # CHF - no decompensation - continue torsemide DVT prophylaxis: Heparin subQ
[2021-01-23] MEDS: Lactated Ringers 1,000 ML 200 ML IVCONT ×4 (05:21→21:03)
[2021-01-23] MEDS: Heparin Sodium,Porcine 5,000 UNIT/ML VIAL 5000 UNIT SUBCUT ×2 (06:43→17:48)
[2021-01-23] MEDS: Pantoprazole Sodium 40 MG/10 ML VIAL IVPUSH (06:43)
[2021-01-23 07:31] LABS: Glucose, Whole Blood 113 mg/dL (60-115)
[2021-01-23] MEDS: lisinopriL 40 MG TABLET PO (08:32)
[2021-01-23] MEDS: carvediloL 25 MG TABLET PO ×2 (08:32→21:03)
[2021-01-23] MEDS: Aspirin Enteric Coated 81 MG TABLET.DR PO (08:32)
[2021-01-23] MEDS: Torsemide 20 MG TABLET PO (08:32)
[2021-01-23] MEDS: Fenofibrate 160 MG TABLET PO (08:32)
[2021-01-23] MEDS: Spironolactone 25 MG TABLET 50 MG PO (08:32)
[2021-01-23] MEDS: Cholecalciferol (Vitamin D3) 25 MCG TABLET PO (08:33)
[2021-01-23] MEDS: Atorvastatin Calcium 80 MG TABLET PO (08:33)
[2021-01-23] MEDS: OXcarbazepine 300 MG TABLET PO ×2 (08:33→21:02)
[2021-01-23] MEDS: Sertraline HCL 100 MG TABLET PO (08:33)
[2021-01-23] MEDS: Perphenazine 4 MG TABLET PO ×2 (08:33→21:02)
[2021-01-23] MEDS: NIFEdipine ER 60 MG TAB.ER.24 120 MG PO (08:33)
[2021-01-23] MEDS: Gabapentin 600 MG TABLET PO ×3 (08:33→21:03)
[2021-01-23 08:59] LABS: Anion Gap 13 (12-20); Blood Urea Nitrogen 43 mg/dL (9-16); Calcium 8.1 mg/dL (8.4-10.2); Carbon Dioxide 26 mmol/L (22-29); Chloride 108 mmol/L (96-108); Creatinine Clr Calc Pharmacy 29.1; Estimated Glomerular Filt Rate 18; Glucose Random 115 mg/dL (60-115); Potassium 4.3 mmol/L (3.3-5.1); Sodium 143 mmol/L (135-145)
[2021-01-23] MEDS: Fluticasone Propionate 100 MCG BLST.W.DEV 4 PUFF INHALE (09:12)
[2021-01-23 11:12] LABS: Glucose, Whole Blood 105 mg/dL (60-115)
--- NOTE | 2021-01-23 12:29 | P.PNIM_ITS ---
Subjective Subjective Date of Service: 01/23/21 Interval History: Follow up pancreatitis. Still with epigastric pain Physical Exam Vital Signs: Vital Signs: Last Vital Signs Temp 97 F 01/23/21 11:23 Pulse 46 L 01/23/21 11:23 Resp 16 01/23/21 11:23 BP 172/78 H 01/23/21 11:23 Pulse Ox 98 01/23/21 11:23 Body Mass Index 34.7 Appearing in no acute distress head is normocephalic atraumatic eyes pupils are PERRLA sclera is anicteric mouth throat mucous membranes are intact and moist neck is supple no lymphadenopathy, no JVD noted lung sounds are clear to auscultation heart regular rate rhythm, clear S1, S2 positive bowel sounds, abdomen tender to the epigastrum neuro patient is alert x3, no focal deficits Objective Data Current Medications Generic Name Dose Route Start Last Admin Trade Name Freq PRN Reason Stop Dose Admin Acetaminophen 650 mg 01/23/21 04:18 Acetaminophen 325 Mg Tablet PO Q6H PRN Pain, Mild (Pain Scale 1-3) Aspirin 81 mg 01/23/21 09:00 01/23/21 08:32 Aspirin Enteric Coated 81 Mg Tablet.Dr PO 81 mg DAILY THAO Administration Atorvastatin Calcium 80 mg 01/23/21 09:00 01/23/21 08:33 Atorvastatin Calcium 80 Mg Tablet PO 80 mg DAILY THAO Administration Carvedilol 25 mg 01/23/21 09:00 01/23/21 08:32 Carvedilol 25 Mg Tablet PO 25 mg BID THAO Administration Protocol Docusate Sodium 100 mg 01/23/21 04:18 Docusate Sodium 100 Mg Capsule PO DAILY PRN Constipation Fenofibrate 160 mg 01/23/21 09:00 01/23/21 08:32 Fenofibrate 160 Mg Tablet PO 160 mg DAILY THAO Administration Fluticasone Propionate 4 puff 01/23/21 08:00 01/23/21 09:12 Fluticasone Propionate 100 Mcg Blst.W.Dev INHALE 4 puff RBID THAO Administration Gabapentin 600 mg 01/23/21 09:00 01/23/21 08:33 Gabapentin 600 Mg Tablet PO 600 mg TID THAO Administration Heparin Sodium (Porcine) 5,000 unit 01/23/21 06:00 01/23/21 06:43 Heparin Sodium,Porcine 5,000 Unit/Ml Vial SUBCUT 5,000 unit Q12H THAO Administration Lactated Ringer's 1,000 mls @ 200 mls/hr 01/23/21 03:15 01/23/21 11:02 Lr IVCONT 200 mls/hr .Q5H THAO Administration Insulin Glargine 60 unit 01/23/21 09:00 01/23/21 08:33 Insulin Glargine,Hum.Rec.Anlog 100 Unit/Ml 10 Ml Vial SUBCUT Not Given DAILY [facility] Insulin Human Lispro 0 unit 01/23/21 07:30 01/23/21 11:08 Insulin Lispro 100 Unit/Ml 3 Ml Vial SUBCUT Not Given QIDACHS [facility] Protocol Morphine Sulfate 4 mg 01/23/21 04:18 01/23/21 08:43 Morphine Sulfate 4 Mg/Ml Cartridge IVPUSH 4 mg Q4H PRN Administration Pain, Severe (Pain Scale 7-10) Nifedipine 120 mg 01/23/21 09:00 01/23/21 08:33 Nifedipine Er 60 Mg Tab.Er.24 PO 120 mg DAILY [facility] Administration Ondansetron HCl 4 mg 01/23/21 04:18 Ondansetron Hcl 4 Mg/2 Ml Vial IVPUSH Q8H PRN Nausea and Vomiting Oxcarbazepine 300 mg 01/23/21 09:00 01/23/21 08:33 Oxcarbazepine 300 Mg Tablet PO 300 mg BID THAO Administration Pantoprazole Sodium 40 mg 01/23/21 06:30 01/23/21 06:43 Pantoprazole Sodium 40 Mg/10 Ml Vial IVPUSH 40 mg DAILY@0630 [facility] Administration Perphenazine 4 mg 01/23/21 09:00 01/23/21 08:33 Perphenazine 4 Mg Tablet PO 4 mg BID [facility] Administration Sertraline HCl 100 mg 01/23/21 09:00 01/23/21 08:33 Sertraline Hcl 100 Mg Tablet PO 100 mg DAILY [facility] Administration Sodium Chloride 3 ml 01/23/21 08:00 01/23/21 08:31 0.9 % Sodium Chloride Flush 3 Ml Syringe IVFLUSH Not Given QSHIFT [facility] Tramadol HCl 100 mg 01/23/21 05:17 Tramadol Hcl 50 Mg Tablet PO Q8H PRN Pain, Moderate (Pain Scale 4-6 Vitamin D 25 mcg 01/23/21 09:00 01/23/21 08:33 Cholecalciferol (Vitamin D3) 25 Mcg Tablet PO 25 mcg DAILY THAO Administration Zolpidem Tartrate 5 mg 01/23/21 21:00 Zolpidem Tartrate 5 Mg Tablet PO BEDTIME THAO Labs CBC & Chem 7: 01/22/21 22:07 01/23/21 08:06 Assessment and Plan (1) Acute pancreatitis: Status: Acute (2) Abdominal pain: Status: Acute (3) Acute kidney injury superimposed on CKD: Status: Acute Assessment and Plan: 60-year-old male with on extensive past medical history as mentioned above who presents to the hospital with complaints of abdominal pain found to have acute pancreatitis # Acute pancreatitis. Epigastric pain, CT evidence of pancreatitis, as well as elevated lipase, denies alcohol, triglycerides less than 1000. Reports hx of pancreatitis. - GI consult for unclear etiology of pancreatitis. - LR @ 200 - pain management - advance to clear liquid diet - IV PPI # MARNI on CKD-Likely from dehydration. - IV fluids - follow BMP - Hold Lisinopril, spironolactone, torsemide # Diabetes mellitus - sliding scale # Hypertension. Elevated - Hold Lisinopril due to MARNI. - add hydralazine TID. # COPD. No exacerbation. - continue home inhalers # CHF. no decompensation - continue torsemide Attending: Dr. Delgado
[2021-01-23] MEDS: hydrALAZINE HCl 25 MG TABLET PO ×2 (15:27→21:02)
--- NOTE | 2021-01-23 16:12 | MHC.CM.PN ---
PER PHYSICIAN ROUNDS, NO PLAN FOR DISCHARGE TODAY. PLAN WILL BE HOME NO SERVICES
--- NOTE | 2021-01-23 16:13 | P.CNGI_ITS ---
History of Present Illness Data of Consult Service Date: 01/23/21 Requesting physician: Lashay Frost Primary Care Provider: Nuvia Crook NP HPI Reason for consult: acute pancreatitis Asked to see this 60 YM seen at [facility] this am with abdominal pain: Patient presents to the ED for upper abdominal pain for the past 3 days with nausea. Patient denies any lower abdominal pain, chest pain, shortness of breath, fever, chills, dysuria, hematuria, or flank pain Reevaluation #1: CT scan shows pancreatitis. Patient still having pain after 6 use into the IV morphine. EKG negative for STEMI. Troponin 18. Lipase 274 Reevaluation #2: Patient admitted to the hospital for pancreatitis due to non relief from pain meds. Patient agreeable to plan. Hospitalist aware of case and accepted case Labs showed elevated lipase of 278 IMAGING STUDIES: ABD CT SCAN SHOWED: There is subtle fluid and fat stranding adjacent the inferior pancreatic head and transverse portion of the duodenum. Most likely this is secondary to pancreatitis. Consider correlation with serum enzymes. Primary inflammatory process of the duodenum is also possible but considered less likely. Hepatomegaly and diffuse hepatic steatosis. Patient complains of worsening upper abdominal pain since 01/19/21 which increased to 10/10 in severity. Pain has improved to 7/10 today and pt is tolerating a liquid diet. He reports similar pain several yrs ago and none in the recent past Pt complains of decreased appetite and denies symptoms nausea, vomiting, fever, chills, change in appetite or weight. Denies recent change in bowel habits, constipation, diarrhea, black stools or rectal bleeding. Patient denies using alcohol x past 6 yrs - although reported in his history in the charts. Admits to smoking intermittently Denies being on chronic anticoagulation. Patient denies known family history of pancreatic disease, colon polyps, colon cancer or other GI malignancies. He has 4 children and 11 grandchildren. 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 PAST EGD/COLONOSCOPY: [address] Abrams Review of Systems Constitutional: Constitutional: Reports difficulty sleeping, Denies fever(s), Reports headache(s) and Denies weight loss Eyes: Eyes: Denies eye discharge, Reports dry eyes and Denies irritation ENT: Reports Normal hearing present, Denies dysphagia, Denies dizziness, Reports dry mouth and Reports headache(s) Cardiovascular: Cardiovascular: Reports chest pain, Denies leg edema, Reports dyspnea ( at rest), Reports dyspnea on exertion and Reports other ( palpitations) Respiratory: Respiratory: Denies cough, Reports dyspnea ( at rest) and Reports dyspnea on exertion Gastrointestinal: Gastrointestinal: Reports abdominal pain, Denies change in bowel habits, Denies dysphagia and Denies heartburn Genitourinary: Genitourinary: Denies dysuria Musculoskeletal: Musculoskeletal: Denies back pain and Reports arthralgias ( arthritis) Integumentary/Breasts: Skin/Breast: Denies pruritus, Reports rash, Denies jaundice and Reports other (Alopecia, photosensitivity) Neurologic: Reports Normal hearing present, Denies Abnormal speech present, Denies dizziness, Reports headache(s) and Denies seizure-like activity Psychiatric: Psychiatric: Reports anxiety, Reports depression and Denies panic attacks Endocrine: Endocrine: Denies cold intolerance, Denies flushing and Denies heat intolerance PMFSH Past Medical History Medical History Abnormal biopsy of kidney Anxiety Asthma CHF (congestive heart failure) Chronic kidney disease (CKD) Chronic kidney disease, stage 4 (severe) COPD (chronic obstructive pulmonary disease) Depression Depression with anxiety Diabetes mellitus with hyperglycemia, with long-term current use of insulin Diverticulitis Elevated cholesterol Erectile dysfunction History of alcohol abuse History of headache HTN (hypertension) Hx of pancreatitis Hypertension Hypertriglyceridemia On beta doron at home Peptic ulcer Proteinuria Sleep apnea Type 2 diabetes mellitus with chronic kidney disease Type 2 diabetes mellitus with hyperglycemia, with long-term current use of insulin Type 2 diabetes mellitus with polyneuropathy Family History Family History Mother Diabetes Surgical History Surgical History Hx of colonoscopy Hx of right inguinal hernia repair Social History Social History Household Members: None Housing: Apartment Do you presently have visiting nurse or other home services: No Alcohol intake: never Smoking Status: Light tobacco smoker Tobacco Type: Cigarette Cigarettes Per Day: 4 Years Smoked: 30 Smoked in Last 30 Days: Yes Patient Interested in Nicotine Replacement: No Patient Given Instructions on How to Stop Smoking: No Second Hand Smoke Exposure: Yes Use of substances other than those prescribed or required for medical reasons: No Currently Displaying Signs/Symptoms of Drug Intoxication Withdrawal: No Any prior treatment program specific to substance use: No Have you been hit, kicked, punched, or otherwise hurt by someone within the past year? If so, by whom?: No Do you feel safe in your current relationship?: No Current Relationship Is there a partner from a previous relationship who is making you feel unsafe now?: No Advance Directives: No Advance Directives Information Provided: Yes Advance Directives on File: No Do you have thoughts of harming others: None Do you have a plan to hurt others: No Plan Recently lost weight without trying: No Meds Allergies Allergy/AdvReac Type Severity Reaction Status Date / Time No Known Allergies Allergy Verified 01/22/21 19:16 Active Medications: Current Medications Generic Name Dose Route Start Last Admin Trade Name Freq PRN Reason Stop Dose Admin Acetaminophen 650 mg 01/23/21 04:18 Acetaminophen 325 Mg Tablet PO Q6H PRN Pain, Mild (Pain Scale 1-3) Aspirin 81 mg 01/23/21 09:00 01/23/21 08:32 Aspirin Enteric Coated 81 Mg Tablet.Dr PO 81 mg DAILY THAO Administration Atorvastatin Calcium 80 mg 01/23/21 09:00 01/23/21 08:33 Atorvastatin Calcium 80 Mg Tablet PO 80 mg DAILY THAO Administration Carvedilol 25 mg 01/23/21 09:00 01/23/21 08:32 Carvedilol 25 Mg Tablet PO 25 mg BID THAO Administration Protocol Docusate Sodium 100 mg 01/23/21 04:18 Docusate Sodium 100 Mg Capsule PO DAILY PRN Constipation Fenofibrate 160 mg 01/23/21 09:00 01/23/21 08:32 Fenofibrate 160 Mg Tablet PO 160 mg DAILY THAO Administration Fluticasone Propionate 4 puff 01/23/21 08:00 01/23/21 09:12 Fluticasone Propionate 100 Mcg Blst.W.Dev INHALE 4 puff RBID THAO Administration Gabapentin 600 mg 01/23/21 09:00 01/23/21 15:27 Gabapentin 600 Mg Tablet PO 600 mg TID THAO Administration Heparin Sodium (Porcine) 5,000 unit 01/23/21 06:00 01/23/21 06:43 Heparin Sodium,Porcine 5,000 Unit/Ml Vial SUBCUT 5,000 unit Q12H THAO Administration Hydralazine HCl 25 mg 01/23/21 15:00 01/23/21 15:27 Hydralazine Hcl 25 Mg Tablet PO 25 mg TID THAO Administration Protocol Lactated Ringer's 1,000 mls @ 200 mls/hr 01/23/21 03:15 01/23/21 15:56 Lr IVCONT 200 mls/hr .Q5H THAO Administration Insulin Glargine 60 unit 01/23/21 09:00 01/23/21 08:33 Insulin Glargine,Hum.Rec.Anlog 100 Unit/Ml 10 Ml Vial SUBCUT Not Given DAILY [facility] Insulin Human Lispro 0 unit 01/23/21 07:30 01/23/21 11:08 Insulin Lispro 100 Unit/Ml 3 Ml Vial SUBCUT Not Given QIDACHS [facility] Protocol Morphine Sulfate 4 mg 01/23/21 04:18 01/23/21 12:54 Morphine Sulfate 4 Mg/Ml Cartridge IVPUSH 4 mg Q4H PRN Administration Pain, Severe (Pain Scale 7-10) Nifedipine 120 mg 01/23/21 09:00 01/23/21 08:33 Nifedipine Er 60 Mg Tab.Er.24 PO 120 mg DAILY [facility] Administration Ondansetron HCl 4 mg 01/23/21 04:18 Ondansetron Hcl 4 Mg/2 Ml Vial IVPUSH Q8H PRN Nausea and Vomiting Oxcarbazepine 300 mg 01/23/21 09:00 01/23/21 08:33 Oxcarbazepine 300 Mg Tablet PO 300 mg BID [facility] Administration Pantoprazole Sodium 40 mg 01/23/21 06:30 01/23/21 06:43 Pantoprazole Sodium 40 Mg/10 Ml Vial IVPUSH 40 mg DAILY@0630 [facility] Administration Perphenazine 4 mg 01/23/21 09:00 01/23/21 08:33 Perphenazine 4 Mg Tablet PO 4 mg BID [facility] Administration Sertraline HCl 100 mg 01/23/21 09:00 01/23/21 08:33 Sertraline Hcl 100 Mg Tablet PO 100 mg DAILY [facility] Administration Sodium Chloride 3 ml 01/23/21 08:00 01/23/21 15:52 0.9 % Sodium Chloride Flush 3 Ml Syringe IVFLUSH Not Given QSHIFT [facility] Tramadol HCl 100 mg 01/23/21 05:17 Tramadol Hcl 50 Mg Tablet PO Q8H PRN Pain, Moderate (Pain Scale 4-6 Vitamin D 25 mcg 01/23/21 09:00 01/23/21 08:33 Cholecalciferol (Vitamin D3) 25 Mcg Tablet PO 25 mcg DAILY THAO Administration Zolpidem Tartrate 5 mg 01/23/21 21:00 Zolpidem Tartrate 5 Mg Tablet PO BEDTIME [facility] Home Medications Medication Instructions Recorded Confirmed Last Taken Type aspirin [Aspir-81] 81 mg PO DAILY 07/25/20 01/23/21 07/27/20 History atorvastatin 80 mg PO DAILY 07/25/20 01/23/21 Unknown History carvedilol 25 mg PO BID 07/25/20 01/23/21 Unknown History cholecalciferol (vitamin D3) 25 mcg PO DAILY 07/25/20 01/23/21 Unknown History [Vitamin D3] fenofibrate nanocrystallized 145 mg PO DAILY 07/25/20 01/23/21 Unknown History gabapentin 600 mg PO TID 07/25/20 01/23/21 Unknown History oxcarbazepine 300 mg PO BID 07/25/20 01/23/21 Unknown History perphenazine 4 mg PO BID 07/25/20 01/23/21 Unknown History sertraline 100 mg PO DAILY 07/25/20 01/23/21 Unknown History spironolactone 50 mg PO DAILY 07/25/20 01/23/21 Unknown History torsemide 20 mg PO DAILY 07/25/20 01/23/21 Unknown History fluticasone propionate [Flovent 4 puff INHALATION BID 01/23/21 01/23/21 Unknown History HFA] insulin aspart U-100 [Novolog See Rx Instructions .ROUTE .COMPLEX 01/23/21 01/23/21 Unknown History Flexpen U-100 Insulin] insulin glargine U-300 conc 60 unit SUBCUT DAILY 01/23/21 01/23/21 Unknown History [Toujeo Max U-300 SoloStar] tramadol 2 tab PO Q8H PRN 01/23/21 01/23/21 Unknown History zolpidem 1 tab PO BEDTIME 01/23/21 01/23/21 Unknown History Physical Exam Vital Signs: Vital Signs: Last Vital Signs Temp 96.4 F L 01/23/21 15:33 Pulse 51 01/23/21 15:33 Resp 19 01/23/21 15:33 BP 180/72 H 01/23/21 15:33 Pulse Ox 98 01/23/21 15:33 Body Mass Index 34.7 Const: General: no acute distress and ill appearing Nutritional Appearance: average body habitus Orientation/consciousness: patient oriented x3 Limitations: no limitations HENMT: Head: Yes normal to inspection Ears: hearing grossly normal bilat erally Mouth: Normal oral and palatal mucosa present Eyes: Sclerae: sclerae normal Pupils: Equal, round and reactive pupils present Neck: Neck: Yes normal visual inspection Chest: Chest palpation & inspection: normal inspection of the chest Resp: Effort & Inspection: normal respiratory effort Auscultation: clear to auscultation bilaterally Cardio: Palpation: normal PMI Rate: regular rate Rhythm: regular rhythm Heart sounds: S1 normal heart sound present, S2 normal heart sound present and no murmurs GI: Palpation (GI): Soft to palpation, Tenderness to palpation present (GI) (mild to moderate epigastric tenderness) and No hepatosplenomegaly present Auscultation: normal bowel sounds Rectal Exam - Male: Yes deferred Skin: General skin exam: no rashes or lesions noted Neuro: General: patient oriented x3, gait normal and moves all extremities Cranial nerves: Yes Equal, round and reactive pupils present and Yes Normal hear ing present Speech: No Abnormal speech present Psych: Appearance: grossly normal Mental Status: mental status grossly normal Results Labs CBC & Chem 7: 01/22/21 22:07 01/23/21 08:06 Labs: Short CBC 01/22/21 Range/Units 22:07 WBC 10.5 (4.8-10.8) X10*3/uL Hgb 12.0 L (14.0-18.0) g/dl Hct 33.9 L (42-52) % Plt Count 185 (160-400) X10*3/uL BMP 01/22/21 01/23/21 22:07 08:06 Sodium 144 143 Potassium 3.8 4.3 Chloride 108 108 Carbon Dioxide 24 26 BUN 47 H D 43 H Creatinine 3.54 H 3.44 H Calcium 8.1 L D 8.1 L Liver Function 01/22/21 Range/Units 22:07 Total Bilirubin 0.4 (0.0-1.0) mg/dL Direct Bilirubin < 0.2 (0.0-0.5) mg/dL AST 20 (5-37) U/L ALT 22 (0-40) U/L Alkaline Phosphatase 78 (39-117) U/L Albumin 3.9 (3.5-5.0) g/dL Urine 01/23/21 Range/Units 01:56 Urine Color YELLOW Urine Appearance CLEAR Urine pH 6.0 (5.0-8.0) Ur Specific [place] 1.025 (1.005-1.025) Urine Protein 3+ H (NEG-TRACE) MG/DL Urine Glucose (UA) NEG (NEG) MG/DL Assessment and Plan (1) Abdominal pain: Status: Acute (2) Acute pancreatitis: Status: Acute (3) Type 2 diabetes mellitus with hyperglycemia, with long-term current use of insulin: Status: Acute (4) Chronic kidney disease, stage 4 (severe): Status: Acute 60-year-old male with past medical history of hypertension, diabetes, hyperlipidemia, spondylosis, CHF, COPD, depression anxiety admitted with abdominal pain, elevated lipase and CT changes suggestive of acute pancreatitis. Etiology of pancreatitis is unclear possibly EtOH related versus biliary. Patient denies EtOH use for the past 6 years though history is questionable. Abdominal pain is improved with IV fluids and pain medication and he is tolerating a liquid diet. RECOMMENDATIONS: 1. Continue clear liquid diet. 2. Continue aggressive IV hydration and pain control 3. Abdominal ultrasound in the a.m. to check for non radiopaque stones - order placed. 4. Follow lipase levels daily. Need to watch renal function given underlying renal insufficiency 5. Diet can be advanced once lipase is near normal and pain has improved.
[2021-01-23 16:18] LABS: Glucose, Whole Blood 91 mg/dL (60-115)
[2021-01-23 20:22] LABS: Glucose, Whole Blood 117 mg/dL (60-115)
[2021-01-23] MEDS: Zolpidem Tartrate 5 MG TABLET PO (21:02)
[2021-01-24] VITALS (10 sets, daily range): BP systolic 156–172; BP diastolic 62–78; PULSE 54–65; RESP 17–20; TEMP 36.1–36.5; O2SAT 95–98
[2021-01-24] MEDS: Lactated Ringers 1,000 ML 200 ML IVCONT ×4 (01:52→23:42)
[2021-01-24] MEDS: Morphine Sulfate 4 MG/ML CARTRIDGE IVPUSH ×4 (01:58→23:49)
[2021-01-24 04:50] LABS: MANUAL DIFF FLAG NO
[2021-01-24 04:52] LABS: Basophils Percent Auto 0.3 % (0-2); Eosinophils Absolute Auto 0.4 X10*3/uL (0.0-0.4); Eosinophils Percent Auto 5.6 % (0-4); Hematocrit 31.8 % (42-52); Hemoglobin 11.1 g/dl (14.0-18.0); Imm Gran Abs Auto 0.02 X10*3/uL (0.00-0.03); Imm Gran Pct Auto 0.3 % (0.0-0.4); Lymphocytes Absolute Auto 1.3 X10*3/uL (1.2-4.9); Lymphocytes Percent Auto 18.5 % (20-40); Mean Corpuscular HGB Conc 34.9 g/dl (31.0-36.0); Mean Corpuscular Hemoglobin 31.2 pg (27.0-33.0); Mean Corpuscular Volume 89.3 fL (80-98); Mean Platelet Volume 12.1 fL (9.4-12.4); Monocytes Absolute Auto 0.4 X10*3/uL (0.1-1.2); Neutrophils Absolute Auto 4.9 X10*3/uL (2.0-8.3); Neutrophils Percent Auto 70.3 % (45-73); Platelet Count 155 X10*3/uL (160-400); Red Blood Count 3.56 X10*6/uL (4.60-5.80); Red Cell Distribution Width 13.2 % (11.0-16.0)
[2021-01-24 05:17] LABS: Anion Gap 14 (12-20); Blood Urea Nitrogen 39 mg/dL (9-16); Carbon Dioxide 25 mmol/L (22-29); Chloride 104 mmol/L (96-108); Creatinine Clr Calc Pharmacy 33.9; Estimated Glomerular Filt Rate 22; Glucose Random 115 mg/dL (60-115); Potassium 3.9 mmol/L (3.3-5.1); Sodium 139 mmol/L (135-145); Triglycerides 585 mg/dL
[2021-01-24 05:20] LABS: Anion Gap 12 (12-20); Blood Urea Nitrogen 39 mg/dL (9-16); Calcium 8.2 mg/dL (8.4-10.2); Carbon Dioxide 26 mmol/L (22-29); Chloride 104 mmol/L (96-108); Creatinine Clr Calc Pharmacy 33.9; Estimated Glomerular Filt Rate 22; Glucose Random 118 mg/dL (60-115); Lipase 29 U/L (8-78); Potassium 3.9 mmol/L (3.3-5.1); Sodium 138 mmol/L (135-145)
[2021-01-24] MEDS: Heparin Sodium,Porcine 5,000 UNIT/ML VIAL 5000 UNIT SUBCUT ×2 (05:54→17:06)
[2021-01-24] MEDS: Pantoprazole Sodium 40 MG/10 ML VIAL IVPUSH (05:54)
[2021-01-24 07:35] LABS: Glucose, Whole Blood 115 mg/dL (60-115)
--- NOTE | 2021-01-24 08:50 | MHC.CM.PN ---
pt lives alone, he reports that he is independent in his care re: adl's. he does have family , a brother and children that live in the area and he relies on them for help... ie..transportation as he no longer drives and other things that they can help him c. he also has 1hr/wk [employer] from [facility] who cleans his apt. he tells me. pt uses a cane c ambulation. pt denies the need for vna and tells me he is ready to go home today. his brother [place] provide transportation [place] dc plan is home no svcs. cm to cont. to follow.
[2021-01-24] MEDS: Acetaminophen 325 MG TABLET 650 MG PO (09:04)
[2021-01-24] MEDS: Aspirin Enteric Coated 81 MG TABLET.DR PO (09:05)
[2021-01-24] MEDS: hydrALAZINE HCl 25 MG TABLET PO ×3 (09:06→20:05)
[2021-01-24] MEDS: Gabapentin 600 MG TABLET PO ×3 (09:07→20:03)
[2021-01-24] MEDS: carvediloL 25 MG TABLET PO ×2 (09:07→20:05)
[2021-01-24] MEDS: Atorvastatin Calcium 80 MG TABLET PO (09:08)
[2021-01-24] MEDS: Fenofibrate 160 MG TABLET PO (09:08)
[2021-01-24] MEDS: Sertraline HCL 100 MG TABLET PO (09:08)
[2021-01-24] MEDS: OXcarbazepine 300 MG TABLET PO ×2 (09:08→20:03)
[2021-01-24] MEDS: Perphenazine 4 MG TABLET PO ×2 (09:08→20:03)
[2021-01-24] MEDS: Cholecalciferol (Vitamin D3) 25 MCG TABLET PO (09:08)
[2021-01-24] MEDS: NIFEdipine ER 60 MG TAB.ER.24 120 MG PO (09:13)
[2021-01-24 11:40] LABS: Glucose, Whole Blood 100 mg/dL (60-115)
--- NOTE | 2021-01-24 11:46 | HO.PM.IMPN ---
Subjective Subjective Date of Service: 01/24/21 <Lashay Frost NP - Last Filed: 01/24/21 17:17> 01/24/21 <Hayes Delgado MD - Last Filed: 01/26/21 15:07> Interval History: Follow up pancreatitis. No pain, feeling hungry <Lashay Frost NP - Last Filed: 01/24/21 17:17> Physical Exam Vital Signs: Vital Signs: Last Vital Signs Temp 97.0 F 01/24/21 08:00 Pulse 65 01/24/21 09:13 Resp 17 01/24/21 08:00 BP 172/78 H 01/24/21 09:13 Pulse Ox 97 01/24/21 08:00 Body Mass Index 34.7 <Lashay Frost NP - Last Filed: 01/24/21 17:17> Appearing in no acute distress lung sounds are clear to auscultation heart regular rate rhythm, clear S1, S2 positive bowel sounds, abdomen is soft, nontender neuro patient is alert x3, no focal deficits <Lashay Frost NP - Last Filed: 01/24/21 17:17> Objective Data Current Medications Generic Name Dose Route Start Last Admin Trade Name Freq PRN Reason Stop Dose Admin Acetaminophen 650 mg 01/23/21 04:18 01/24/21 09:04 Acetaminophen 325 Mg Tablet PO 650 mg Q6H PRN Administration Pain, Mild (Pain Scale 1-3) Aspirin 81 mg 01/23/21 09:00 01/24/21 09:05 Aspirin Enteric Coated 81 Mg Tablet. PO 81 mg DAILY THAO Administration Atorvastatin Calcium 80 mg 01/23/21 09:00 01/24/21 09:08 Atorvastatin Calcium 80 Mg Tablet PO 80 mg DAILY THAO Administration Carvedilol 25 mg 01/23/21 09:00 01/24/21 09:07 Carvedilol 25 Mg Tablet PO 25 mg BID THAO Administration Protocol Docusate Sodium 100 mg 01/23/21 04:18 Docusate Sodium 100 Mg Capsule PO DAILY PRN Constipation Fenofibrate 160 mg 01/23/21 09:00 01/24/21 09:08 Fenofibrate 160 Mg Tablet PO 160 mg DAILY THAO Administration Fluticasone Propionate 2 puff 01/24/21 20:00 Fluticasone Propionate 100 Mcg Blst.W.Dev INHALE RBID THAO Gabapentin 600 mg 01/23/21 09:00 01/24/21 09:07 Gabapentin 600 Mg Tablet PO 600 mg TID [facility] Administration Heparin Sodium (Porcine) 5,000 unit 01/23/21 06:00 01/24/21 05:54 Heparin Sodium,Porcine 5,000 Unit/Ml Vial SUBCUT 5,000 unit Q12H THAO Administration Hydralazine HCl 25 mg 01/23/21 15:00 01/24/21 09:06 Hydralazine Hcl 25 Mg Tablet PO 25 mg TID [facility] Administration Protocol Lactated Ringer's 1,000 mls @ 200 mls/hr 01/23/21 03:15 01/24/21 07:38 Lr IVCONT 200 mls/hr .Q5H [facility] Administration Insulin Glargine 60 unit 01/23/21 09:00 01/24/21 07:38 Insulin Glargine,Hum.Rec.Anlog 100 Unit/Ml 10 Ml Vial SUBCUT Not Given DAILY [facility] Insulin Human Lispro 0 unit 01/23/21 07:30 01/24/21 07:37 Insulin Lispro 100 Unit/Ml 3 Ml Vial SUBCUT Not Given QIDACHS [facility] Protocol Morphine Sulfate 4 mg 01/23/21 04:18 01/24/21 05:54 Morphine Sulfate 4 Mg/Ml Cartridge IVPUSH 4 mg Q4H PRN Administration Pain, Severe (Pain Scale 7-10) Nifedipine 120 mg 01/23/21 09:00 01/24/21 09:13 Nifedipine Er 60 Mg Tab.Er.24 PO 120 mg DAILY [facility] Administration Ondansetron HCl 4 mg 01/23/21 04:18 Ondansetron Hcl 4 Mg/2 Ml Vial IVPUSH Q8H PRN Nausea and Vomiting Oxcarbazepine 300 mg 01/23/21 09:00 01/24/21 09:08 Oxcarbazepine 300 Mg Tablet PO 300 mg BID [facility] Administration Pantoprazole Sodium 40 mg 01/23/21 06:30 01/24/21 05:54 Pantoprazole Sodium 40 Mg/10 Ml Vial IVPUSH 40 mg DAILY@0630 [facility] Administration Perphenazine 4 mg 01/23/21 09:00 01/24/21 09:08 Perphenazine 4 Mg Tablet PO 4 mg BID [facility] Administration Sertraline HCl 100 mg 01/23/21 09:00 01/24/21 09:08 Sertraline Hcl 100 Mg Tablet PO 100 mg DAILY [facility] Administration Sodium Chloride 3 ml 01/23/21 08:00 01/24/21 07:38 0.9 % Sodium Chloride Flush 3 Ml Syringe IVFLUSH Not Given QSHIFT [facility]AO Tramadol HCl 100 mg 01/23/21 05:17 Tramadol Hcl 50 Mg Tablet PO Q8H PRN Pain, Moderate (Pain Scale 4-6 Vitamin D 25 mcg 01/23/21 09:00 01/24/21 09:08 Cholecalciferol (Vitamin D3) 25 Mcg Tablet PO 25 mcg DAILY [facility] Administration Zolpidem Tartrate 5 mg 01/23/21 21:00 01/23/21 21:02 Zolpidem Tartrate 5 Mg Tablet PO 5 mg BEDTIME THAO Administration <Lashay Frost NP - Last Filed: 01/24/21 17:17> Labs CBC & Chem 7: : 01/24/21 04:33 01/24/21 04:33 <Lashay Frost NP - Last Filed: 01/24/21 17:17> Assessment and Plan (1) Acute pancreatitis: Status: Acute <Lashay Frost NP - Last Filed: 01/24/21 17:17> Assessment and Plan: 60-year-old male with on extensive past medical history as mentioned above who presents to the hospital with complaints of abdominal pain found to have acute pancreatitis # Acute pancreatitis. Epigastric pain, CT evidence of pancreatitis, as well as elevated lipase, denies alcohol, triglycerides less than 1000. Reports hx of pancreatitis. - GI following, abd ultrasound showing fatty liver - LR @ 200 - pain management - advance to regular diet - IV PPI # MARNI on CKD-Likely from dehydration. Improving - IV fluids - follow BMP - Hold Lisinopril, spironolactone, torsemide # Diabetes mellitus - sliding scale # Hypertension. Elevated - Hold Lisinopril due to MARNI. - add hydralazine TID. # COPD. No exacerbation. - continue home inhalers # CHF. no decompensation - hold torsemide due to marni Dispo: Discharge home tomorrow if stable Attending: Dr. Delgado <Lashay Frost NP - Last Filed: 01/24/21 17:17> Patient seen and examined independently and I was present during bridges portion of E/M service. Agree with Roxann Frost NP's history, physical, assessment, and plan. Advance diet and if tolerating, d/c likely tomorrow <Hayes Delgado MD - Last Filed: 01/26/21 15:07>
[2021-01-24 16:53] LABS: Glucose, Whole Blood 166 mg/dL (60-115)
[2021-01-24] MEDS: Insulin Lispro 100 UNIT/ML 3 ML VIAL SUBCUT ×2 (17:06→20:02)
[2021-01-24 20:02] LABS: Glucose, Whole Blood 203 mg/dL (60-115)
[2021-01-24] MEDS: Zolpidem Tartrate 5 MG TABLET PO (22:15)
[2021-01-25] VITALS (8 sets, daily range): BP systolic 174–198; BP diastolic 52–86; PULSE 58–65; RESP 16–18; TEMP 36.1–36.5; O2SAT 96–98
[2021-01-25] MEDS: Lactated Ringers 1,000 ML 200 ML IVCONT (05:06)
[2021-01-25] MEDS: Heparin Sodium,Porcine 5,000 UNIT/ML VIAL 5000 UNIT SUBCUT (06:16)
[2021-01-25] MEDS: Pantoprazole Sodium 40 MG/10 ML VIAL IVPUSH (06:17)
[2021-01-25] MEDS: Fluticasone Propionate 100 MCG BLST.W.DEV 2 PUFF INHALE (07:42)
[2021-01-25 07:44] LABS: Glucose, Whole Blood 165 mg/dL (60-115)
[2021-01-25] MEDS: Insulin Lispro 100 UNIT/ML 3 ML VIAL SUBCUT ×2 (08:31→12:32)
[2021-01-25] MEDS: lisinopriL 40 MG TABLET PO (08:48)
[2021-01-25] MEDS: Atorvastatin Calcium 80 MG TABLET PO (08:49)
[2021-01-25] MEDS: Aspirin Enteric Coated 81 MG TABLET.DR PO (08:49)
[2021-01-25] MEDS: Fenofibrate 160 MG TABLET PO (08:49)
[2021-01-25] MEDS: hydrALAZINE HCl 25 MG TABLET PO (08:50)
[2021-01-25] MEDS: Sertraline HCL 100 MG TABLET PO (08:50)
[2021-01-25] MEDS: OXcarbazepine 300 MG TABLET PO (08:50)
[2021-01-25] MEDS: NIFEdipine ER 60 MG TAB.ER.24 120 MG PO (08:51)
[2021-01-25] MEDS: Gabapentin 600 MG TABLET PO (08:52)
[2021-01-25] MEDS: Perphenazine 4 MG TABLET PO (08:52)
[2021-01-25] MEDS: Cholecalciferol (Vitamin D3) 25 MCG TABLET PO (08:52)
[2021-01-25] MEDS: carvediloL 25 MG TABLET PO (08:52)
[2021-01-25 12:05] LABS: Glucose, Whole Blood 187 mg/dL (60-115)
--- NOTE | 2021-01-25 13:09 | PM.DS ---
DS: Providers Provider Date of Service: 01/25/21 <Lashay Frost NP - Last Filed: 01/25/21 13:42> 01/25/21 <Hayes Delgado MD - Last Filed: 01/26/21 15:19> Date of admission: 01/23/21 02:58 <Lashay Frost NP - Last Filed: 01/25/21 13:42> Date of discharge: 01/25/21 <Lashay Frost NP - Last Filed: 01/25/21 13:42> Primary care physician: Nuvia Crook NP <Lashay Frost NP - Last Filed: 01/25/21 13:42> Admitting clinician: Charlotte Harris <Lashay Frost NP - Last Filed: 01/25/21 13:42> Attending physician on admission: Charlotte Harris <Lashay Frost NP - Last Filed: 01/25/21 13:42> Consults: 01/23/21 13:43 Consult to Gastroenterology Routine Consulting Provider: Noah Carrasco Reason for consultation: pancreatitis. unknown etiology Has provider been notified: No <Lashay Frost NP - Last Filed: 01/25/21 13:42> Attending physician on discharge: Hayes Delgado <Lashay Frost NP - Last Filed: 01/25/21 13:42> Discharging clinician: Lashay Frost <Lashay Frost NP - Last Filed: 01/25/21 13:42> DS: Diagnosis Discharge Diagnosis (1) Acute pancreatitis: Status: Acute <Lashay Frost NP - Last Filed: 01/25/21 13:42> DS: Medications Discharge Medications Home Medications: Home Medications Medication Instructions Recorded Confirmed aspirin [Aspir-81] 81 mg PO DAILY 07/25/20 01/23/21 atorvastatin 80 mg PO DAILY 07/25/20 01/23/21 carvedilol 25 mg PO BID 07/25/20 01/23/21 cholecalciferol (vitamin D3) 25 mcg PO DAILY 07/25/20 01/23/21 [Vitamin D3] fenofibrate nanocrystallized 145 mg PO DAILY 07/25/20 01/23/21 gabapentin 600 mg PO TID 07/25/20 01/23/21 oxcarbazepine 300 mg PO BID 07/25/20 01/23/21 perphenazine 4 mg PO BID 07/25/20 01/23/21 sertraline 100 mg PO DAILY 07/25/20 01/23/21 spironolactone 50 mg PO DAILY 07/25/20 01/23/21 torsemide 20 mg PO DAILY 07/25/20 01/23/21 Flovent HFA 4 puff INHALATION BID 01/23/21 01/23/21 Toujeo Max U-300 SoloStar 60 unit SUBCUT DAILY 01/23/21 01/23/21 insulin aspart U-100 [Novolog See Rx Instructions .ROUTE .COMPLEX 01/23/21 01/23/21 Flexpen U-100 Insulin] tramadol 2 tab PO Q8H PRN 01/23/21 01/23/21 zolpidem 1 tab PO BEDTIME 01/23/21 01/23/21 Previous Rx's Medication Instructions Recorded pen needle, diabetic 32 gauge x #150 ea 08/01/20/32 lancets 33 gauge #100 ea 08/16/20 acetaminophen [Tylenol Extra 500 mg PO Q6H PRN #20 tab 09/01/20 Strength] lisinopril 40 mg tablet 40 mg PO QAM #30 tab 11/08/20 nifedipine 30 mg tablet,extended 120 mg PO DAILY #120 tab 11/17/20 release <Lashay Frost NP - Last Filed: 01/25/21 13:42> DS: Summary Hospital Course Hospital Course: HP as per admitting provider This is a 60-year-old male with past medical history of hypertension, diabetes, hyperlipidemia, spondylosis, CHF, COPD, depression anxiety who presents to the hospital with complaints of abdominal pain. The abdominal pain is located in the epigastric region, radiating to the right side, associated with low appetite but no nausea or vomiting, no diarrhea constipation. The pain started 3 days prior to presentation, worsening, therefore patient decided to come to the hospital. Patient denies using alcohol although reported in his history in the charts. He has no fever or chills, no chest pain, no shortness of breath, no palpitations, no urinary symptoms, no lower extremity edema. On arrival to the ED patient hemodynamically stable with no significant abnormal vitals except for a blood pressure of 200/88. Labs are significant for WBC count of 10.5, hemoglobin of 12, hematocrit 33.9, BUN of 47, creatinine of 3.54 which is slightly elevated from his baseline of 3, lipase of 278, UA negative, CT abdomen shows subtle fluid and fat stranding adjacent to the inferior pancreatic head and transverse portion of the duodenum. Most likely secondary to pancreatitis . Pancreatitis. Treated with aggressive IV fluid hydration and pain management. Lipase trended from 278 down to 29. He was seen and evaluated by gastroenterology because they was no clear etiology for the pancreatitis as his triglycerides were 671 and patient denied heavy alcohol use, although he did report heavy drinking 6 years ago. Abdominal ultrasound showed enlarged echogenic liver probably representing fatty infiltration and no gallstones. He was NPO initially and diet was advanced to regular. Patient tolerated well his pain improved significantly. Acute on chronic kidney injury. Likely related to dehydration. Did improve to baseline after aggressive IV fluid hydration. Hypertension. Elevated blood pressures throughout admission. Treated with hydralazine and Nifedipine. Lisinopril was held due to MARNI but was restarted on day of discharge. Patient to follow-up with his primary care provider regarding better blood pressure control. Attending: Dr. Delgado Patient seen and examined independently and I was present during bridges portion of E/M service. Agree with Roxann Frost NP's history, physical, assessment, and plan. Pancreaitits clinically resolved. Tolerating diet. Seen by GI, no specific cause. Bp elevated this Am. Improved down to the 150s systolic with resumption of his BP meds. <Lashay Frost NP - Last Filed: 01/25/21 13:42> Time Spent with Patient Time attestation: Total time spent providing and/or coordinating discharge services: <Lashay Frost NP - Last Filed: 01/25/21 13:42> Discharge coordination time: Greater than 30 minutes <Lashay Frost NP - Last Filed: 01/25/21 13:42> Physical Exam Vital Signs: Vital Signs: Last Vital Signs Temp 97 F 01/25/21 12:00 Pulse 62 01/25/21 12:00 Resp 16 01/25/21 12:00 BP 198/79 H 01/25/21 12:00 Pulse Ox 98 01/25/21 12:00 Body Mass Index 34.7 <Lashay Frost NP - Last Filed: 01/25/21 13:42> Appearing in no acute distress head is normocephalic atraumatic eyes pupils are PERRLA sclera is anicteric mouth throat mucous membranes are intact and moist neck is supple no lymphadenopathy, no JVD noted lung sounds are clear to auscultation heart regular rate rhythm, clear S1, S2 positive bowel sounds, abdomen is soft, nontender neuro patient is alert x3, no focal deficits <Lashay Frost NP - Last Filed: 01/25/21 13:42> DS: Data Data Completed and Pending Labs on day of discharge: Laboratory Results - last 24 hr 01/24/21 01/24/21 01/25/21 16:39 19:57 07:38 POC Glucose 166 H 203 H 165 H 01/25/21 11:51 POC Glucose 187 H <Lashay Frost NP - Last Filed: 01/25/21 13:42> Discharge Plan Discharge Anticipated Discharge Date/Time: 01/25/21 09:54 <Lashay Frost NP - Last Filed: 01/25/21 13:42> Patient Disposition: Home, Self-Care <Lashay Frost NP - Last Filed: 01/25/21 13:42> Referrals: Nuvia Crook NP [Primary Care Provider] - 1 Week (Tele 02/02/2021 2:30pm) <Lashay Frost NP - Last Filed: 01/25/21 13:42> Discharge Medications: Continued (DME) pen needle, diabetic [BD Silvia 2nd Gen Pen Needle] 32 gauge x 5/32 needle See Rx Instructions .ROUTE .MEDSUPPLY Qty: 150 RF: 6 (DME) lancets [TRUEplus Lancets] 33 gauge misc See Rx Instructions .ROUTE .MEDSUPPLY Qty: 100 RF: 11 lisinopril 40 mg tablet 40 mg PO QAM Qty: 30 RF: 6 nifedipine 30 mg tablet extended release 120 mg PO DAILY Qty: 120 RF: 5 atorvastatin 80 mg Tablet 80 mg PO DAILY RF: 0 sertraline 100 mg Tablet 100 mg PO DAILY RF: 0 aspirin [Aspir-81] 81 mg Tablet,Delayed Release (Dr/Ec) 81 mg PO DAILY RF: 0 fenofibrate nanocrystallized 145 mg Tablet 145 mg PO DAILY RF: 0 gabapentin 600 mg Tablet 600 mg PO TID RF: 0 torsemide 20 mg Tablet 20 mg PO DAILY RF: 0 oxcarbazepine 300 mg Tablet 300 mg PO BID RF: 0 spironolactone 25 mg Tablet 50 mg PO DAILY RF: 0 perphenazine 4 mg Tablet 4 mg PO BID RF: 0 cholecalciferol (vitamin D3) [Vitamin D3] 25 mcg (1,000 unit) Capsule 25 mcg PO DAILY RF: 0 carvedilol 25 mg Tablet 25 mg PO BID RF: 0 acetaminophen [Tylenol Extra Strength] 500 mg tablet 500 mg PO Q6H PRN (Reason: pain or fever) Qty: 20 RF: 0 tramadol 50 mg tablet 2 tab PO Q8H PRN (Reason: Pain) RF: 0 zolpidem 10 mg tablet 1 tab PO BEDTIME RF: 0 Flovent HFA 110 mcg/actuation HFA aerosol inhaler 4 puff inhalation BID RF: 0 insulin aspart U-100 [Novolog Flexpen U-100 Insulin] 100 unit/mL (3 mL) insulin pen See Rx Instructions .ROUTE .COMPLEX RF: 0 Toujeo Max U-300 SoloStar 300 unit/mL (3 mL) insulin pen 60 unit subcut DAILY RF: 0 <Lashay Frost NP - Last Filed: 01/25/21 13:42> Discharge Orders: Discharge Order (Routine); Ordered 01/25/21 Ordered By: Lashay Frost <Lashay Frost NP - Last Filed: 01/25/21 13:42> Diet: advance to usual diet <Lashay Frost NP - Last Filed: 01/25/21 13:42> advance to usual diet <Hayes Delgado MD - Last Filed: 01/26/21 15:19> Activity on Discharge: As tolerated <Lashay Frost NP - Last Filed: 01/25/21 13:42> As tolerated <Hayes Delgado MD - Last Filed: 01/26/21 15:19> Stand Alone Forms: Patient Portal Discharge page <Lashay Frost NP - Last Filed: 01/25/21 13:42> Care Plan Goals: Resolution of pain from pancreatitis <Lashay Frost NP - Last Filed: 01/25/21 13:42> Health Concerns: Pancreatitis <Lashay Frost NP - Last Filed: 01/25/21 13:42> Plan of Treatment: Follow up with primary care provider as need. <Lashay Frost NP - Last Filed: 01/25/21 13:42> Discharge Date/Time: 01/25/21 13:00 <Lashay Frost NP - Last Filed: 01/25/21 13:42>
== END 2021-01-25 13:00 | disposition home or self-care (01) | DRG 439 ==
LOC: HO.ED 01-23 01:56 → HO.EDOVER 01-23 03:09 → HO.S3 01-23 03:13
PROVIDERS: Internal Medicine Gastroenterology; Nurse Practitioner Acute Care; Physician Assistant; Admitting Provider Internal Medicine; Emergency Provider Emergency Medicine Emergency Medical Services; PCP Nurse Practitioner Primary Care; Visit Provider Family Medicine
DX: K85.90 Acute pancreatitis without necrosis or infection, unspecified (principal); I13.0 Hypertensive heart and chronic kidney disease with heart failure and stage 1 through stage 4 chronic kidney disease, or unspecified chronic kidney disease; N18.4 Chronic kidney disease, stage 4 (severe); N17.9 Acute kidney failure, unspecified; F32.9 Major depressive disorder, single episode, unspecified; E86.0 Dehydration; Z20.822 Contact with and (suspected) exposure to COVID-19; I50.9 Heart failure, unspecified; F41.9 Anxiety disorder, unspecified; E11.22 Type 2 diabetes mellitus with diabetic chronic kidney disease; Z79.4 Long term (current) use of insulin; Z79.82 Long term (current) use of aspirin; Z79.899 Other long term (current) drug therapy
CPT/HCPCS: 36415; 74176; 76705; 80048; 80053; 80076; 81001; 82272; 82947; 83690; 84478; 84484; 85025; 85610; 85730; 87635; 93005; 96374; 96375; 99284; 99285; J2270

== ENCOUNTER 2021-01-29 13:12 | Emergency (ER) | payer OTHER, SELFPAY ==
[2021-01-29 13:14] VITALS: BP 170/75; PULSE 74; RESP 16; TEMP 36.9; O2SAT 98; BMI 34.8
[2021-01-29 14:26] LABS: MANUAL DIFF FLAG NO
[2021-01-29 14:28] LABS: Basophils Percent Auto 0.4 % (0-2); Eosinophils Absolute Auto 0.4 X10*3/uL (0.0-0.4); Eosinophils Percent Auto 4.6 % (0-4); Hematocrit 32.3 % (42-52); Hemoglobin 11.1 g/dl (14.0-18.0); Imm Gran Abs Auto 0.04 X10*3/uL (0.00-0.03); Imm Gran Pct Auto 0.5 % (0.0-0.4); Lymphocytes Absolute Auto 1.6 X10*3/uL (1.2-4.9); Lymphocytes Percent Auto 19.9 % (20-40); Mean Corpuscular HGB Conc 34.4 g/dl (31.0-36.0); Mean Corpuscular Hemoglobin 30.6 pg (27.0-33.0); Mean Platelet Volume 11.7 fL (9.4-12.4); Monocytes Absolute Auto 0.4 X10*3/uL (0.1-1.2); Monocytes Percent Auto 5.3 % (2-11); Neutrophils Absolute Auto 5.7 X10*3/uL (2.0-8.3); Neutrophils Percent Auto 69.3 % (45-73); Platelet Count 175 X10*3/uL (160-400); Red Blood Count 3.63 X10*6/uL (4.60-5.80); Red Cell Distribution Width 13.1 % (11.0-16.0); White Blood Count 8.3 X10*3/uL (4.8-10.8)
[2021-01-29 14:52] LABS: Alanine Aminotransferase 28 U/L (0-40); Albumin Level 3.7 g/dL (3.5-5.0); Alkaline Phosphatase 60 U/L (39-117); Anion Gap 13 (12-20); Aspartate Amino Transferase 22 U/L (5-37); Bilirubin Direct < 0.2 mg/dL (0.0-0.5); Bilirubin Total 0.2 mg/dL (0.0-1.0); Blood Urea Nitrogen 46 mg/dL (9-16); Calcium 7.8 mg/dL (8.4-10.2); Carbon Dioxide 26 mmol/L (22-29); Chloride 106 mmol/L (96-108); Creatinine Clr Calc Pharmacy 26.4; Estimated Glomerular Filt Rate 16; Glucose Random 145 mg/dL (60-115); Lipase 46 U/L (8-78); Potassium 3.9 mmol/L (3.3-5.1); Sodium 141 mmol/L (135-145); Total Protein 6.3 g/dL (6.5-8.0)
--- NOTE | 2021-01-29 16:13 | ED_ITS ---
HPI - Abdominal Pain General Chief Complaint: Abdominal Pain Stated Complaint: abd pain Time Seen by Provider: 01/29/21 16:13 Source: patient Mode of arrival: ambulatory Limitations: no limitations History of Present Illness HPI narrative: Patient with alcohol induced pancreatitis was admitted here 01/23 for 2nd episode of pancreatitis CT scan showed mild inflammation lipase was elevated to 278. Patient for discharge on 01/25, was doing good and then had alcohol again 2 days ago and since yesterday having pain again. Pain increases on eating any food. No nausea no vomiting no abdominal distension. MD elicited complaint: abdominal pain Pertinent past history: other (Pancreatitis) Pain Consistency: constant Location: periumbilical Severity: moderate Quality: dull Radiation: epigastric Migration to: no migration Exacerbating factors: eating Relieving factors: nothing Associated symptoms: denies other symptoms Related Data Home Medications Medication Instructions Recorded Confirmed aspirin [Aspir-81] 81 mg PO DAILY 07/25/20 01/23/21 atorvastatin 80 mg PO DAILY 07/25/20 01/23/21 carvedilol 25 mg PO BID 07/25/20 01/23/21 cholecalciferol (vitamin D3) 25 mcg PO DAILY 07/25/20 01/23/21 [Vitamin D3] fenofibrate nanocrystallized 145 mg PO DAILY 07/25/20 01/23/21 gabapentin 600 mg PO TID 07/25/20 01/23/21 oxcarbazepine 300 mg PO BID 07/25/20 01/23/21 perphenazine 4 mg PO BID 07/25/20 01/23/21 sertraline 100 mg PO DAILY 07/25/20 01/23/21 spironolactone 50 mg PO DAILY 07/25/20 01/23/21 torsemide 20 mg PO DAILY 07/25/20 01/23/21 Flovent HFA 4 puff INHALATION BID 01/23/21 01/23/21 Toujeo Max U-300 SoloStar 60 unit SUBCUT DAILY 01/23/21 01/23/21 insulin aspart U-100 [Novolog See Rx Instructions .ROUTE .COMPLEX 01/23/21 01/23/21 Flexpen U-100 Insulin] tramadol 2 tab PO Q8H PRN 01/23/21 01/23/21 zolpidem 1 tab PO BEDTIME 01/23/21 01/23/21 Previous Rx's Medication Instructions Recorded pen needle, diabetic 32 gauge x #150 ea 08/01/20 lancets 33 gauge #100 ea 08/16/20 acetaminophen [Tylenol Extra 500 mg PO Q6H PRN #20 tab 09/01/20 Strength] lisinopril 40 mg tablet 40 mg PO QAM #30 tab 11/08/20 nifedipine 30 mg tablet,extended 120 mg PO DAILY #120 tab 11/17/20 release Allergies Allergy/AdvReac Type Severity Reaction Status Date / Time No Known Allergies Allergy Verified 01/22/21 19:16 Review of Systems Review of Systems Constitutional : No Weight loss, No Fever, No Chills ENT/Mouth : No sore throat, No Rhinorrhea Eyes: No Eye Pain, No Swelling Cardiovascular : No Chest Pain, no palpitations Respiratory : No Cough, No Sputum, no shortness of breath Gastrointestinal : no Nausea, No Vomiting, No Diarrhea, ++ abdominal Pain, no black stools Genitourinary : No Dysuria, No Urinary Frequency Musculoskeletal : No joint pain, No Myalgias, No Joint Swelling Skin : No Skin Lesions, No rash Neuro : No Weakness, No Numbness, No Dizziness, No Headache Psych : No Anxiety/Panic, No Depression Heme/Lymph: No Bruising, No Lymphadenopathy Endocrine : No Polyuria, No Polydipsia All other systems reviewed and are negative Physical Exam Vital Signs: Vital Signs: Last Vital Signs Temp 97.6 F 01/29/21 18:11 Pulse 60 01/29/21 18:11 Resp 18 01/29/21 18:11 BP 194/52 H 01/29/21 18:11 Pulse Ox 98 01/29/21 18:11 Body Mass Index 34.8 Appearance: Alert. Oriented X3. No acute distress. Eyes: Pupils equal, round and reactive to light. ENT: Pharynx normal. Neck: Normal inspection. Neck supple. CVS: Normal heart rate and rhythm. Pulses normal. Respiratory: No respiratory distress. Breath sounds normal. Abdomen: Soft mid abdomen, epigastric tenderness no rebound tenderness or guardi ng, Bowel sounds are present, no mass palpable, no CVA tenderness Skin: Skin warm and dry. Normal skin color. Normal skin turgor. Extremities: No lower extremity edema. Neuro: Oriented X 3. No motor deficit. No sensory deficit. MDM - Abdominal Pain MDM Narrative Medical decision making narrative: Patient diabetic with chronic renal disease alcohol-induced pancreatitis was admitted here on 01/23 with 2nd episode of acute pancreatitis patient started drinking again 2 days ago and came here for pain in mid abdomen without any nausea vomiting lab workup showed normal lipase at this time but has elevated creatinine of to 3.8 usual baseline creatinine is 2.96 patient does follow with obstetric assistant Dr. Ritchie. Patient received 2 L of IV fluid will recheck his creatinine advised to follow up with obstetric assistant Patient repeat creatinine has improved to 3.4. Patient has high triglyceride l evels in the past taking Tricor daily will check the level of triglycerides which was not done during last admission Differential Diagnosis Differential diagnosis: Likely abdominal pain and pancreatitis Medical Records Attestation: I reviewed the patient's medical records. Lab Data Attestation: I reviewed the patient's lab results. Result diagrams: 01/29/21 14:14 01/29/21 18:54 Labs: Lab Results 01/29/21 01/29/21 01/29/21 Range/Units 14:14 14:14 14:14 WBC 8.3 (4.8-10.8) X10*3/uL RBC 3.63 L (4.60-5.80) X10*6/uL Hgb 11.1 L (14.0-18.0) g/dl Hct 32.3 L (42-52) % MCV 89.0 (80-98) fL MCH 30.6 (27.0-33.0) pg MCHC 34.4 (31.0-36.0) g/dl RDW 13.1 (11.0-16.0) % Plt Count 175 (160-400) X10*3/uL MPV 11.7 (9.4-12.4) fL Immature Gran % (Auto) 0.5 H (0.0-0.4) % Neut % (Auto) 69.3 (45-73) % Lymph % (Auto) 19.9 L (20-40) % [place] % (Auto) 5.3 (2-11) % Eos % (Auto) 4.6 H (0-4) % Baso % (Auto) 0.4 (0-2) % Lymph # (Auto) 1.6 (1.2-4.9) X10*3/uL [place] # (Auto) 0.4 (0.1-1.2) X10*3/uL Eos # (Auto) 0.4 (0.0-0.4) X10*3/uL Baso # (Auto) 0.0 (0.0-0.2) X10*3/uL Abs Immat Gran (auto) 0.04 H (0.00-0.03) X10*3/uL Absolute Neuts (auto) 5.7 (2.0-8.3) X10*3/uL Absolute Nucleated RBC 0.000 (0.0-0.012) X10*3/uL Nucleated RBC % (auto) 0.0 (0.0-0.2) /100WBC Hold Blue Top SEE NOTE Sodium 141 (135-145) mmol/L Potassium 3.9 (3.3-5.1) mmol/L Chloride 106 (96-108) mmol/L Carbon Dioxide 26 (22-29) mmol/L Anion Gap 13 (12-20) BUN 46 H (9-16) mg/dL Creatinine 3.80 H (0.5-1.4) mg/dL Estim Creat Clear Calc 26.4 Estimated GFR 16 Random Glucose 145 H (60-115) mg/dL Calcium 7.8 L (8.4-10.2) mg/dL Total Bilirubin 0.2 (0.0-1.0) mg/dL Direct Bilirubin < 0.2 (0.0-0.5) mg/dL AST 22 (5-37) U/L ALT 28 (0-40) U/L Alkaline Phosphatase 60 D (39-117) U/L Total Protein 6.3 L (6.5-8.0) g/dL Albumin 3.7 (3.5-5.0) g/dL Lipase 46 (8-78) U/L 01/29/21 Range/Units 18:54 WBC (4.8-10.8) X10*3/uL RBC (4.60-5.80) X10*6/uL Hgb (14.0-18.0) g/dl Hct (42-52) % MCV (80-98) fL MCH (27.0-33.0) pg MCHC (31.0-36.0) g/dl RDW (11.0-16.0) % Plt Count (160-400) X10*3/uL MPV (9.4-12.4) fL Immature Gran % (Auto) (0.0-0.4) % Neut % (Auto) (45-73) % Lymph % (Auto) (20-40) % [place] % (Auto) (2-11) % Eos % (Auto) (0-4) % Baso % (Auto) (0-2) % Lymph # (Auto) (1.2-4.9) X10*3/uL [place] # (Auto) (0.1-1.2) X10*3/uL Eos # (Auto) (0.0-0.4) X10*3/uL Baso # (Auto) (0.0-0.2) X10*3/uL Abs Immat Gran (auto) (0.00-0.03) X10*3/uL Absolute Neuts (auto) (2.0-8.3) X10*3/uL Absolute Nucleated RBC (0.0-0.012) X10*3/uL Nucleated RBC % (auto) (0.0-0.2) /100WBC Hold Blue Top Sodium 143 (135-145) mmol/L Potassium 4.1 (3.3-5.1) mmol/L Chloride 110 H (96-108) mmol/L Carbon Dioxide 24 (22-29) mmol/L Anion Gap 13 (12-20) BUN 43 H (9-16) mg/dL Creatinine 3.44 H (0.5-1.4) mg/dL Estim Creat Clear Calc 29.2 Estimated GFR 18 Random Glucose 178 H (60-115) mg/dL Calcium 7.4 L (8.4-10.2) mg/dL Total Bilirubin (0.0-1.0) mg/dL Direct Bilirubin (0.0-0.5) mg/dL AST (5-37) U/L ALT (0-40) U/L Alkaline Phosphatase (39-117) U/L Total Protein (6.5-8.0) g/dL Albumin (3.5-5.0) g/dL Lipase (8-78) U/L Discharge Plan Discharge Clinical Impression: Chronic alcoholic pancreatitis Renal failure (ARF), acute on chronic Qualifiers: Acute renal failure type: unspecified Chronic kidney disease stage: stage 4 (severe) Qualified Code(s): N17.9 - Acute kidney failure, unspecified Patient Disposition: Home, Self-Care Instructions: Pancreatitis (ED), Chronic Kidney Disease (ED) Additional Instructions: Drink plenty of fluids, stop drinking alcohol. Follow-up with obstetric assistant Dr. Ritchie in next 2 3 days to recheck her kidney functions Prescriptions: No Action (DME) pen needle, diabetic [BD Silvia 2nd Gen Pen Needle] 32 gauge x 5/32 needle See Rx Instructions .ROUTE .MEDSUPPLY Qty: 150 RF: 6 (DME) lancets [TRUEplus Lancets] 33 gauge misc See Rx Instructions .ROUTE .MEDSUPPLY Qty: 100 RF: 11 lisinopril 40 mg tablet 40 mg PO QAM Qty: 30 RF: 6 nifedipine 30 mg tablet extended release 120 mg PO DAILY Qty: 120 RF: 5 atorvastatin 80 mg Tablet 80 mg PO DAILY RF: 0 sertraline 100 mg Tablet 100 mg PO DAILY RF: 0 aspirin [Aspir-81] 81 mg Tablet,Delayed Release (Dr/Ec) 81 mg PO DAILY RF: 0 fenofibrate nanocrystallized 145 mg Tablet 145 mg PO DAILY RF: 0 gabapentin 600 mg Tablet 600 mg PO TID RF: 0 torsemide 20 mg Tablet 20 mg PO DAILY RF: 0 oxcarbazepine 300 mg Tablet 300 mg PO BID RF: 0 spironolactone 25 mg Tablet 50 mg PO DAILY RF: 0 perphenazine 4 mg Tablet 4 mg PO BID RF: 0 cholecalciferol (vitamin D3) [Vitamin D3] 25 mcg (1,000 unit) Capsule 25 mcg PO DAILY RF: 0 carvedilol 25 mg Tablet 25 mg PO BID RF: 0 acetaminophen [Tylenol Extra Strength] 500 mg tablet 500 mg PO Q6H PRN (Reason: pain or fever) Qty: 20 RF: 0 tramadol 50 mg tablet 2 tab PO Q8H PRN (Reason: Pain) RF: 0 zolpidem 10 mg tablet 1 tab PO BEDTIME RF: 0 Flovent HFA 110 mcg/actuation HFA aerosol inhaler 4 puff inhalation BID RF: 0 insulin aspart U-100 [Novolog Flexpen U-100 Insulin] 100 unit/mL (3 mL) insulin pen See Rx Instructions .ROUTE .COMPLEX RF: 0 Toujeo Max U-300 SoloStar 300 unit/mL (3 mL) insulin pen 60 unit subcut DAILY RF: 0 Referrals: Renard Ritchie MD [Physician] - 3 days [facility] Past Medical History Medical History Abnormal biopsy of kidney Anxiety Asthma CHF (congestive heart failure) Chronic kidney disease (CKD) Chronic kidney disease, stage 4 (severe) COPD (chronic obstructive pulmonary disease) Depression Depression with anxiety Diabetes mellitus with hyperglycemia, with long-term current use of insulin Diverticulitis Elevated cholesterol Erectile dysfunction History of alcohol abuse History of headache HTN (hypertension) Hx of pancreatitis Hypertension Hypertriglyceridemia On beta doron at home Pancreatitis Peptic ulcer Proteinuria Sleep apnea Type 2 diabetes mellitus with chronic kidney disease Type 2 diabetes mellitus with hyperglycemia, with long-term current use of insulin Type 2 diabetes mellitus with polyneuropathy Surgical History Hx of colonoscopy Hx of right inguinal hernia repair Family History Family History Mother Diabetes Social History Social History Household Members: None Housing: Apartment Alcohol intake: former Smoking Status: Never smoker Tobacco Type: Cigarette Cigarettes Per Day: 4 Years Smoked: 30 Second Hand Smoke Exposure: Yes Use of substances other than those prescribed or required for medical reasons: No Advance Directives: No Advance Directives Information Provided: Yes service: No Current occupational status: retired
[2021-01-29] MEDS: 0.9 % Sodium Chloride 1,000 ML 999 ML IVCONT ×2 (16:29→16:30)
[2021-01-29 16:30] VITALS: RESP 18
[2021-01-29] MEDS: ondansetron HCL 4 MG/2 ML VIAL IVPUSH (16:30)
[2021-01-29] MEDS: Morphine Sulfate 4 MG/ML CARTRIDGE IVPUSH (16:30)
[2021-01-29] MEDS: Famotidine/PF 20 MG/2 ML VIAL IVPUSH (16:30)
[2021-01-29 16:31] VITALS: BP 174/66; PULSE 63; RESP 18; TEMP 36.7; O2SAT 97
[2021-01-29 18:11] VITALS: BP 194/52; PULSE 60; RESP 18; TEMP 36.4; O2SAT 98
[2021-01-29 19:39] LABS: Anion Gap 13 (12-20); Blood Urea Nitrogen 43 mg/dL (9-16); Carbon Dioxide 24 mmol/L (22-29); Chloride 110 mmol/L (96-108); Creatinine Clr Calc Pharmacy 29.2; Estimated Glomerular Filt Rate 18; Glucose Random 178 mg/dL (60-115); Potassium 4.1 mmol/L (3.3-5.1); Sodium 143 mmol/L (135-145)
[2021-01-29 19:44] LABS: Calcium 7.4 mg/dL (8.4-10.2)
[2021-01-29 20:28] LABS: Cholesterol 166 mg/dL; HDL Cholesterol 27 mg/dL; Triglycerides 441 mg/dL
== END 2021-01-29 20:00 | disposition home or self-care (01) ==
PROVIDERS: Emergency Provider Internal Medicine
DX: K86.0 Alcohol-induced chronic pancreatitis (principal); E11.22 Type 2 diabetes mellitus with diabetic chronic kidney disease; I13.0 Hypertensive heart and chronic kidney disease with heart failure and stage 1 through stage 4 chronic kidney disease, or unspecified chronic kidney disease; N18.4 Chronic kidney disease, stage 4 (severe); I50.9 Heart failure, unspecified; N17.9 Acute kidney failure, unspecified; F17.210 Nicotine dependence, cigarettes, uncomplicated; Z79.4 Long term (current) use of insulin; Z79.899 Other long term (current) drug therapy; Z79.82 Long term (current) use of aspirin
CPT/HCPCS: 36415; 80048; 80053; 80061; 80076; 82248; 83690; 85025; 96361; 96374; 96375; 99284; J2270; J2405

== ENCOUNTER 2021-02-02 16:58 | Inpatient (IN) | payer OTHER, SELFPAY ==
--- NOTE | ~2021-02-02 | CT_ITS ---
PATIENT NAME: Jose D Dickens : 1960 EXAMINATION: CT ABDOMEN AND PELVIS WITHOUT CONTRAST CLINICAL INFORMATION: Upper AP, recent pancreatitis, also eval GB COMPARISON: Ultrasound abdomen 01/24/2021, CT abdomen pelvis 01/22/2021 TECHNIQUE: Contiguous axial thin section helical images of the abdomen were performed without contrast. The data set was reformatted in the coronal and sagittal planes and reviewed on an independent workstation. This CT examination was performed using dose optimization techniques as appropriate, variously including the following: *Automated exposure control *Adjustment of mA and/or kV according to patient size (this includes techniques or standardized protocols for targeted exams where dose is matched to indication/reason for exam; i.e. extremities or head) *Use of iterative reconstruction technique DLP: 839 mGy-cm FINDINGS: LUNG BASES: There is a tiny left-sided pleural effusion present with left lower lobe scarring/atelectasis. The lung bases are otherwise unremarkable. LIVER, GALLBLADDER, AND BILIARY TREE: The liver is enlarged measuring 21 cm in length and demonstrates decreased attenuation consistent with hepatic steatosis.. No focal hepatic lesion or biliary ductal dilatation is present. The gallbladder is unremarkable with no evidence of radiopaque gallstones, gallbladder wall thickening, or obvious pericholecystic inflammatory changes. PANCREAS: A subtle fat stranding around the pancreatic head inferiorly and the duodenum is unchanged when compared to the prior study, best appreciated on coronal imaging (compare current 5:49 with prior 7:46). No pseudocysts or discrete fluid collections are seen. No pancreatic calcifications are present. SPLEEN: Unremarkable. ADRENAL GLANDS: Unremarkable. KIDNEYS AND URETERS: The kidneys are normal in size, shape, and attenuation. No hydronephrosis, hydroureter, or calculi seen. No perinephric stranding. BLADDER: Unremarkable. GASTROINTESTINAL TRACT: Diverticular changes present in the colon most marked in the sigmoid without diverticulitis. The small and large bowel are otherwise unremarkable. The appendix is unremarkable. ABDOMINAL WALL: Bilateral direct inguinal hernias are seen containing only fat, left greater than right. Lipomas are noted in both quadratus lumborum in the back. LYMPH NODES: No retroperitoneal lymphadenopathy is present. Bilateral inguinal small lymph nodes are seen. VASCULAR: Calcific atherosclerotic changes seen in the infrarenal abdominal aorta and iliac vessels. No aneurysm. PELVIC VISCERA: Prostate and seminal vesicles appear normal. OSSEOUS STRUCTURES: Degenerative changes are present in the spine. CT/CT abdomen pelvis wo con IMPRESSION: 1. Enlarged fatty liver 2. Mild edematous changes around the pancreatic head unchanged from the prior study consistent with pancreatitis 3. Incidental note made of colonic diverticulosis, bilateral inguinal fat-containing hernias and lipomas in both quadratus lumborum muscles.
[2021-02-02 17:48] VITALS: BP 230/90; PULSE 66; RESP 16; TEMP 36.8; O2SAT 97; BMI 34.8
--- NOTE | 2021-02-02 17:55 | PC.NURSE ---
BP L ARM 228/94.
--- NOTE | 2021-02-02 17:57 | ECG_ITS ---
Test Reason : ABD PAIN Blood Pressure : / mmHG Vent. Rate : 057 BPM Atrial Rate : 057 BPM P-R Int : 206 ms QRS Dur : 132 ms QT Int : 438 ms P-R-T Axes : 036 -54 033 degrees QTc Int : 426 ms Sinus bradycardia Left axis deviation Left ventricular hypertrophy with QRS widening Abnormal ECG When compared with ECG of 22-JAN-2021 22:42, No significant change was found Referred By: Generic ED Physician Electronically Signed By:GUS GOOD
[2021-02-02 18:09] LABS: MANUAL DIFF FLAG NO
[2021-02-02 18:28] LABS: Basophils Percent Auto 0.2 % (0-2); Eosinophils Absolute Auto 0.3 X10*3/uL (0.0-0.4); Eosinophils Percent Auto 3.8 % (0-4); Hematocrit 31.5 % (42-52); Hemoglobin 11.2 g/dl (14.0-18.0); Imm Gran Abs Auto 0.04 X10*3/uL (0.00-0.03); Imm Gran Pct Auto 0.5 % (0.0-0.4); Lymphocytes Absolute Auto 1.6 X10*3/uL (1.2-4.9); Lymphocytes Percent Auto 19.5 % (20-40); Mean Corpuscular HGB Conc 35.6 g/dl (31.0-36.0); Monocytes Absolute Auto 0.4 X10*3/uL (0.1-1.2); Monocytes Percent Auto 5.1 % (2-11); Neutrophils Absolute Auto 5.8 X10*3/uL (2.0-8.3); Neutrophils Percent Auto 70.9 % (45-73); Platelet Count 169 X10*3/uL (160-400); Red Cell Distribution Width 13.1 % (11.0-16.0); White Blood Count 8.2 X10*3/uL (4.8-10.8)
[2021-02-02 18:39] LABS: Lipase 69 U/L (8-78)
[2021-02-02 18:40] LABS: Anion Gap 14 (12-20); Blood Urea Nitrogen 51 mg/dL (9-16); Calcium 7.7 mg/dL (8.4-10.2); Carbon Dioxide 28 mmol/L (22-29); Chloride 106 mmol/L (96-108); Cholesterol 166 mg/dL; Creatinine Clr Calc Pharmacy 28.8; Estimated Glomerular Filt Rate 18; Glucose Random 164 mg/dL (60-115); HDL Cholesterol 28 mg/dL; Potassium 3.8 mmol/L (3.3-5.1); Sodium 144 mmol/L (135-145); Triglycerides 598 mg/dL
[2021-02-02 18:44] LABS: Troponin-I High Sensitivity 15.3 ng/L (<3.5-35.0)
--- NOTE | 2021-02-02 19:56 | ED_ITS ---
HPI - Abdominal Pain General Chief Complaint: Abdominal Pain Stated Complaint: abdominal pain Time Seen by Provider: 02/02/21 19:45 Source: patient Mode of arrival: ambulatory Limitations: no limitations History of Present Illness HPI narrative: 60-year-old male with a past medical history of sleep apnea, diabetes, hypertension, chronic kidney disease, pancreatitis, former alcohol abuse, high cholesterol here with complaints of mid and upper abdominal pain since waking this morning. Pain is sharp and stabbing per patient. No nausea, vomiting, diarrhea, constipation, urinary symptoms, fevers, chills. Patient tells me he was recently admitted for pancreatitis and states this feels similar. Also complaining of a mild headache. Tells me his blood pressures are running high today at home. No recent changes in his blood pressure medication. 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 Related Data Home Medications Medication Instructions Recorded Confirmed aspirin [Aspir-81] 81 mg PO DAILY 07/25/20 02/03/21 atorvastatin 80 mg PO DAILY 07/25/20 02/03/21 carvedilol 25 mg PO BID 07/25/20 02/03/21 cholecalciferol (vitamin D3) 25 mcg PO DAILY 07/25/20 02/03/21 [Vitamin D3] fenofibrate nanocrystallized 145 mg PO DAILY 07/25/20 02/03/21 gabapentin 600 mg PO TID 07/25/20 02/03/21 oxcarbazepine 300 mg PO BID 07/25/20 02/03/21 perphenazine 4 mg PO BID 07/25/20 02/03/21 sertraline 100 mg PO DAILY 07/25/20 02/03/21 spironolactone 50 mg PO DAILY 07/25/20 02/03/21 torsemide 20 mg PO DAILY 07/25/20 02/03/21 Flovent HFA 4 puff INHALATION BID 01/23/21 02/03/21 Toujeo Max U-300 SoloStar 60 unit SUBCUT DAILY 01/23/21 02/03/21 insulin aspart U-100 [Novolog See Rx Instructions .ROUTE .COMPLEX 01/23/21 02/03/21 Flexpen U-100 Insulin] tramadol 2 tab PO Q8H PRN 01/23/21 02/03/21 zolpidem 1 tab PO BEDTIME 01/23/21 02/03/21 Previous Rx's Medication Instructions Recorded pen needle, diabetic 32 gauge x #150 ea 08/01/20 lancets 33 gauge #100 ea 08/16/20 acetaminophen [Tylenol Extra 500 mg PO Q6H PRN #20 tab 09/01/20 Strength] lisinopril 40 mg tablet 40 mg PO QAM #30 tab 11/08/20 nifedipine 30 mg tablet,extended 120 mg PO DAILY #120 tab 11/17/20 release Allergies Allergy/AdvReac Type Severity Reaction Status Date / Time No Known Allergies Allergy Verified 01/22/21 19:16 Review of Systems Review of Systems Yes all other systems are reviewed and are negative Constitutional: Reports no additional constitutional complaints, Denies body ache(s), Denies chills, Denies fever(s), Denies headache(s) and Denies weakness Eyes: Reports no additional eye complaints and Denies change in vision Reports system reviewed and no additional complaints, except as documented, Denies dizziness, Denies headache(s), Denies nasal congestion, Denies nasal discharge and Denies neck pain Cardiovascular: Reports no additional cardiovascular complaints, Denies chest pain, Denies leg edema and Denies dyspnea Respiratory: Reports no additional respiratory complaints, Denies cough and Denies dyspnea Gastrointestinal: Reports no additional gastrointestinal complaints, Reports abdominal pain, Denies diarrhea, Denies nausea and Denies vomiting Genitourinary: Denies urinary incontinence Musculoskeletal: Reports no additional musculoskeletal complaints, Denies back pain, Denies arthralgias, Denies joint swelling, Denies neck pain, Denies numbness and Denies tingling Skin/Breast: Reports system reviewed and no additional complaints, except as docu and Denies rash Reports system reviewed and no additional complaints, except as documented, Denies Abnormal speech present, Denies dizziness, Denies headache(s), Denies numbness, Denies tingling and Denies weakness Physical Exam Vital Signs: Vital Signs: Last Vital Signs Temp 97.5 F 02/02/21 22:13 Pulse 56 02/03/21 00:00 Resp 18 02/03/21 00:12 BP 212/80 H 02/03/21 00:00 Pulse Ox 97 02/03/21 00:00 Body Mass Index 34.8 Const: General: cooperative, healthy appearing, comfortable and no acute distress Orientation/consciousness: patient oriented x3 Limitations: no limitations HENMT: Head: Yes normal to inspection Ears: hearing grossly normal bilaterally General nose exam: Normal external nose present Face and sinus: Yes normal facial exam Mouth: Normal oral and palatal mucosa present Throat: Yes posterior oropharynx normal Eyes: General: appearance normal, both eyes and all related structures Pupils: Equal, round and reactive pupils present Neck: Neck: Yes normal visual inspection Chest: Chest palpation & inspection: normal inspection of the chest Resp: Effort & Inspection: normal respiratory effort Auscultation: clear to auscultation bilaterally Cardio: Rate: regular rate Rhythm: regular rhythm Peripheral pulses: Peripheral pulses 2+ throughout GI: Inspection: Yes normal to inspection Palpation (GI): Soft to palpation and Tenderness to palpation present (GI) (Mid abdomen/epigastric mod tender/no rebound or guarding) Auscultation: normal bowel sounds Back/Spine/Pelvis: Thoracic/Lumbar Spine: thoracic and lumbar spine normal to inspection Skin: General skin exam: no rashes or lesions noted Neuro: General: patient oriented x3, no focal motor deficits and normal sensation to monofilament Cranial nerves: Yes Equal, round and reactive pupils present Cognition (Neuro): normal cognition Speech: No Abnormal speech present Gait exam (Neuro): Normal gait present Motor exam (neuro): 5/5 motor strength present throughout Extrem: General: Yes normal to inspection, Yes no pedal edema and Yes no calf tenderness Course Course Course Narrative: 60-year-old male here with mid abdominal and epigastric pain since this morning in the setting of a recent admission for pancreatitis. On exam has mid abdominal tenderness which is moderate epigastric tenderness. W ill need labs, EKG, CTA/P, UA, pain control. 2350-CT shows enlarged fatty liver. Mild edematous changes around the pancreatic head unchanged from prior study consistent with pancreatitis. Liver panel pending. Repeat troponin pending. Initial troponin mildly elevated but no reports of chest pain or EKG changes noted on the EKG. Renal function at baseline. Patient has required 2 rounds of analgesia IV with continued pain. Will need admission. 0130-Discussed with Dr Harris who accepted admission. MDM - Abdominal Pain MDM Narrative Medical decision making narrative: ACS, ras, gastritis, pancreatitis Less likely ACS a troponin x2 Delta and EKG which shows no ischemic changes Medical Records Attestation: I reviewed the patient's medical records. Lab Data Attestation: I reviewed the patient's lab results. Result diagrams: 02/02/21 18:02 02/02/21 18:02 Labs: Lab Results 02/02/21 02/02/21 02/02/21 Range/Units 18:02 18:02 18:02 WBC 8.2 (4.8-10.8) X10*3/uL RBC 3.50 L (4.60-5.80) X10*6/uL Hgb 11.2 L (14.0-18.0) g/dl Hct 31.5 L (42-52) % MCV 90.0 (80-98) fL MCH 32.0 (27.0-33.0) pg MCHC 35.6 (31.0-36.0) g/dl RDW 13.1 (11.0-16.0) % Plt Count 169 (160-400) X10*3/uL MPV 12.0 (9.4-12.4) fL Immature Gran % (Auto) 0.5 H (0.0-0.4) % Neut % (Auto) 70.9 (45-73) % Lymph % (Auto) 19.5 L (20-40) % [place] % (Auto) 5.1 (2-11) % Eos % (Auto) 3.8 (0-4) % Baso % (Auto) 0.2 (0-2) % Lymph # (Auto) 1.6 (1.2-4.9) X10*3/uL [place] # (Auto) 0.4 (0.1-1.2) X10*3/uL Eos # (Auto) 0.3 (0.0-0.4) X10*3/uL Baso # (Auto) 0.0 (0.0-0.2) X10*3/uL Abs Immat Gran (auto) 0.04 H (0.00-0.03) X10*3/uL Absolute Neuts (auto) 5.8 (2.0-8.3) X10*3/uL Absolute Nucleated RBC 0.000 (0.0-0.012) X10*3/uL Nucleated RBC % (auto) 0.0 (0.0-0.2) /100WBC Hold Blue Top SEE NOTE Sodium 144 (135-145) mmol/L Potassium 3.8 (3.3-5.1) mmol/L Chloride 106 (96-108) mmol/L Carbon Dioxide 28 (22-29) mmol/L Anion Gap 14 (12-20) BUN 51 H (9-16) mg/dL Creatinine 3.49 H (0.5-1.4) mg/dL Estim Creat Clear Calc 28.8 Estimated GFR 18 Random Glucose 164 H (60-115) mg/dL Calcium 7.7 L (8.4-10.2) mg/dL Total Bilirubin (0.0-1.0) mg/dL Direct Bilirubin (0.0-0.5) mg/dL AST (5-37) U/L ALT (0-40) U/L Alkaline Phosphatase (39-117) U/L Troponin I High Sens (<3.5-35.0) ng/L Total Protein (6.5-8.0) g/dL Albumin (3.5-5.0) g/dL Triglycerides 598 mg/dL Cholesterol 166 mg/dL LDL Cholesterol, Calc TNP HDL Cholesterol 28 mg/dL Lipase (8-78) U/L Urine Color Urine Appearance Urine pH (5.0-8.0) Ur Specific [place] (1.005-1.025) Urine Protein (NEG-TRACE) MG/DL Urine Glucose (UA) (NEG) MG/DL Urine Ketones (NEG) MG/DL Urine Blood (NEG) Urine Nitrite (NEG) Ur Leukocyte Esterase (NEG) Urine RBC (0) /HPF Urine WBC (0-4) /HPF Ur Squamous Epith Cells /LPF Urine Bacteria /LPF Urine Mucus /LPF COVID-19 ([facility]) (Negative) COVID-19 Clin Com 02/02/21 02/02/21 02/02/21 Range/Units 18:02 18:02 23:30 WBC (4.8-10.8) X10*3/uL RBC (4.60-5.80) X10*6/uL Hgb (14.0-18.0) g/dl Hct (42-52) % MCV (80-98) fL MCH (27.0-33.0) pg MCHC (31.0-36.0) g/dl RDW (11.0-16.0) % Plt Count (160-400) X10*3/uL MPV (9.4-12.4) fL Immature Gran % (Auto) (0.0-0.4) % Neut % (Auto) (45-73) % Lymph % (Auto) (20-40) % [place] % (Auto) (2-11) % Eos % (Auto) (0-4) % Baso % (Auto) (0-2) % Lymph # (Auto) (1.2-4.9) X10*3/uL [place] # (Auto) (0.1-1.2) X10*3/uL Eos # (Auto) (0.0-0.4) X10*3/uL Baso # (Auto) (0.0-0.2) X10*3/uL Abs Immat Gran (auto) (0.00-0.03) X10*3/uL Absolute Neuts (auto) (2.0-8.3) X10*3/uL Absolute Nucleated RBC (0.0-0.012) X10*3/uL Nucleated RBC % (auto) (0.0-0.2) /100WBC Hold Blue Top Sodium (135-145) mmol/L Potassium (3.3-5.1) mmol/L Chloride (96-108) mmol/L Carbon Dioxide (22-29) mmol/L Anion Gap (12-20) BUN (9-16) mg/dL Creatinine (0.5-1.4) mg/dL Estim Creat Clear Calc Estimated GFR Random Glucose (60-115) mg/dL Calcium (8.4-10.2) mg/dL Total Bilirubin (0.0-1.0) mg/dL Direct Bilirubin (0.0-0.5) mg/dL AST (5-37) U/L ALT (0-40) U/L Alkaline Phosphatase (39-117) U/L Troponin I High Sens 15.3 (<3.5-35.0) ng/L Total Protein (6.5-8.0) g/dL Albumin (3.5-5.0) g/dL Triglycerides mg/dL Cholesterol mg/dL LDL Cholesterol, Calc HDL Cholesterol mg/dL Lipase 69 (8-78) U/L Urine Color YELLOW Urine Appearance CLEAR Urine pH 6.5 (5.0-8.0) Ur Specific [place] 1.025 (1.005-1.025) Urine Protein 3+ H (NEG-TRACE) MG/DL Urine Glucose (UA) NEG (NEG) MG/DL Urine Ketones NEG (NEG) MG/DL Urine Blood 1+ H (NEG) Urine Nitrite NEG (NEG) Ur Leukocyte Esterase NEG (NEG) Urine RBC 0-2 (0) /HPF Urine WBC 0-2 (0-4) /HPF Ur Squamous Epith Cells TRACE /LPF Urine Bacteria TRACE /LPF Urine Mucus TRACE /LPF COVID-19 ([facility]) (Negative) COVID-19 Clin Com 02/03/21 02/03/21 02/03/21 Range/Units 00:34 00:34 00:35 WBC (4.8-10.8) X10*3/uL RBC (4.60-5.80) X10*6/uL Hgb (14.0-18.0) g/dl Hct (42-52) % MCV (80-98) fL MCH (27.0-33.0) pg MCHC (31.0-36.0) g/dl RDW (11.0-16.0) % Plt Count (160-400) X10*3/uL MPV (9.4-12.4) fL Immature Gran % (Auto) (0.0-0.4) % Neut % (Auto) (45-73) % Lymph % (Auto) (20-40) % [place] % (Auto) (2-11) % Eos % (Auto) (0-4) % Baso % (Auto) (0-2) % Lymph # (Auto) (1.2-4.9) X10*3/uL [place] # (Auto) (0.1-1.2) X10*3/uL Eos # (Auto) (0.0-0.4) X10*3/uL Baso # (Auto) (0.0-0.2) X10*3/uL Abs Immat Gran (auto) (0.00-0.03) X10*3/uL Absolute Neuts (auto) (2.0-8.3) X10*3/uL Absolute Nucleated RBC (0.0-0.012) X10*3/uL Nucleated RBC % (auto) (0.0-0.2) /100WBC Hold Blue Top Sodium (135-145) mmol/L Potassium (3.3-5.1) mmol/L Chloride (96-108) mmol/L Carbon Dioxide (22-29) mmol/L Anion Gap (12-20) BUN (9-16) mg/dL Creatinine (0.5-1.4) mg/dL Estim Creat Clear Calc Estimated GFR Random Glucose (60-115) mg/dL Calcium (8.4-10.2) mg/dL Total Bilirubin < 0.2 (0.0-1.0) mg/dL Direct Bilirubin < 0.2 (0.0-0.5) mg/dL AST 17 (5-37) U/L ALT 17 (0-40) U/L Alkaline Phosphatase 61 (39-117) U/L Troponin I High Sens 19.8 (<3.5-35.0) ng/L Total Protein 6.3 L (6.5-8.0) g/dL Albumin 3.7 (3.5-5.0) g/dL Triglycerides mg/dL Cholesterol mg/dL LDL Cholesterol, Calc HDL Cholesterol mg/dL Lipase (8-78) U/L Urine Color Urine Appearance Urine pH (5.0-8.0) Ur Specific [place] (1.005-1.025) Urine Protein (NEG-TRACE) MG/DL Urine Glucose (UA) (NEG) MG/DL Urine Ketones (NEG) MG/DL Urine Blood (NEG) Urine Nitrite (NEG) Ur Leukocyte Esterase (NEG) Urine RBC (0) /HPF Urine WBC (0-4) /HPF Ur Squamous Epith Cells /LPF Urine Bacteria /LPF Urine Mucus /LPF COVID-19 ([facility]) Negative (Negative) COVID-19 Clin Com See Note Imaging Data CT scan - abdomen: Attestation: I personally reviewed and interpreted this imaging study as follows: Radiologist's impression: Enlarged fatty liver. Mild edematous changes around the pancreatic head unchanged from prior study consistent with pancreatitis ECG Data Attestation: I personally reviewed and interpreted this ECG as follows: ECG interpretation date: 02/03/21 ECG interpretation time: 21:32 Interpretation: Sinus Paresh with a rate of 57, normal QRS, normal QTC Discharge Plan Discharge Clinical Impression: Pancreatitis Qualifiers: Chronicity: acute Pancreatitis type: unspecified pancreatitis type Acute pancreatitis complication: unspecified Qualified Code(s): K85.90 - Acute pancreatitis without necrosis or infection, unspecified Patient Disposition: Admitted As Inpatient [facility] Past Medical History Attestation statement: The following information was validated with the patient. Source: old records reviewed and nursing notes reviewed Medical History Abnormal biopsy of kidney Anxiety Asthma CHF (congestive heart failure) Chronic kidney disease (CKD) Chronic kidney disease, stage 4 (severe) COPD (chronic obstructive pulmonary disease) Depression Depression with anxiety Diabetes mellitus with hyperglycemia, with long-term current use of insulin Diverticulitis Elevated cholesterol Erectile dysfunction History of alcohol abuse History of headache HTN (hypertension) Hx of pancreatitis Hypertension Hypertriglyceridemia On beta doron at home Pancreatitis Peptic ulcer Proteinuria Sleep apnea Type 2 diabetes mellitus with chronic kidney disease Type 2 diabetes mellitus with hyperglycemia, with long-term current use of insulin Type 2 diabetes mellitus with polyneuropathy Surgical History Hx of colonoscopy Hx of right inguinal hernia repair Family History Family History Mother Diabetes Social History Social History Household Members: None Housing: Apartment Alcohol intake: former Smoking Status: Never smoker Tobacco Type: Cigarette Cigarettes Per Day: 4 Years Smoked: 30 Second Hand Smoke Exposure: Yes Advance Directives: No service: No Current occupational status: retired
[2021-02-02] MEDS: Morphine Sulfate 4 MG/ML CARTRIDGE IVPUSH (20:29)
[2021-02-02 20:30] VITALS: BP 222/93; PULSE 61; RESP 18; O2SAT 96
[2021-02-02 21:00] VITALS: BP 221/93; PULSE 61
[2021-02-02] MEDS: carvediloL 25 MG TABLET PO (21:00)
[2021-02-02 22:13] VITALS: BP 208/83; PULSE 56; RESP 16; TEMP 36.4; O2SAT 96
--- NOTE | 2021-02-02 23:33 | PC.NURSE ---
Report received from NIMISHA Almendarez and care assumed. Pt found sitting upright on the edge of his bed alert, skin pwd, respirations even and unlabored without distress. Pt provided RN with Urine sample and reports 9/10 upper abdominal pain without nausea, vomiting or diarrhea. Pt requesting to get ice chips from ice machine and as RN was attempting to explain that I would have to ask the provider he abruptly snapped at this RN saying No water just ice . RN to report pt's request to provider. PT will continue to be monitored
[2021-02-02 23:48] LABS: Glucose Urine UA NEG (NEG); Leukocyte Esterase Urine NEG (NEG); Nitrite Urine NEG (NEG); PH 6.5 (5.0-8.0); Specific Gravity - Urine 1.025 (1.005-1.025); Urine Blood 1+ (NEG); Urine Ketones NEG (NEG); Urine Protein 3+ MG/DL (NEG-TRACE)
[2021-02-02 23:50] LABS: Appearance Urine CLEAR; Color Urine YELLOW
[2021-02-02 23:58] LABS: Bacteria Urine TRACE /LPF; Mucus Urine TRACE /LPF; RBC Urine 0-2 /HPF (0); Squamous Epithelial Cell Urine TRACE /LPF; WBC Urine 0-2 /HPF (0-4)
[2021-02-03] VITALS (16 sets, daily range): BP systolic 155–214; BP diastolic 71–92; PULSE 49–93; RESP 14–20; TEMP 36–36.6; O2SAT 53–99
[2021-02-03] MEDS: HYDROmorphone HCl 1 MG/ML SYRINGE IVPUSH ×2 (00:12→02:45)
[2021-02-03 00:57] LABS: COVID-19 Test Negative (Negative)
[2021-02-03 01:12] LABS: Alanine Aminotransferase 17 U/L (0-40); Albumin Level 3.7 g/dL (3.5-5.0); Alkaline Phosphatase 61 U/L (39-117); Aspartate Amino Transferase 17 U/L (5-37); Bilirubin Direct < 0.2 mg/dL (0.0-0.5); Bilirubin Total < 0.2 mg/dL (0.0-1.0); Total Protein 6.3 g/dL (6.5-8.0)
[2021-02-03 01:13] LABS: Troponin-I High Sensitivity 19.8 ng/L (<3.5-35.0)
--- NOTE | 2021-02-03 03:20 | PC.NURSE ---
REPORT TAKEN FORM CODY BANSAL, FIRST CONTACT WITH PT. MOVED TO RM 22 FOR COMFORT. REPORTS POSITIVE PAIN RELIEF FROM PREVIOUSLY ADMINISTERED PAIN MEDS. SKIN PWD RESPIRATIONS EVEN UNLABORED. ATTEMPTED TO RECONCILE MEDICATIONS- PT STATES HE DOESNT HAVE A LIST AND DOES NOT KNOW ALL MEDS THERE'S TOO MANY
--- NOTE | 2021-02-03 04:40 | PM.IMHP ---
History of Present Illness Date of Service: 02/03/21 Chief Complaint: Abdominal pain This is a 60-year-old male with an extensive past medical history that includes HTN, diabetes, pancreatitis, HLD, who presents to the hospital with complaints of epigastric abdominal pain that started the day of presentation. Patient pain is 10/10, nonradiating, not associated with nausea vomiting diarrhea or constipation. No low appetite, no fever or chills. No headache change in vision, no chest pain, no shortness of breath, no urinary symptoms and no lower extremity edema. Arrival to the ED hemodynamically stable with a blood pressure 230/90, otherwise satting 97% with a temp of 98.2?, heart rate of 66, respiratory rate of 16. Blood pressure is now 188/73 Labs are significant for WBC count of 8.2, hemoglobin of 11.2, BUN of 51, creatinine of 3.49 which is slightly above most recent creatinine function from December which was 2.96. UA negative, abdominal CT shows enlarged fatty liver, mild meds is changes around the pancreatic head unchanged from prior study consistent with pancreatitis, incidental note made of a colonic diverticulitis, bilateral inguinal fat containing hernias and lipomas. Past medical history as blood compliant with patient Review of Systems Review of Systems: Yes all other systems are reviewed and are negative [facility] Medical History Abnormal biopsy of kidney Anxiety Asthma CHF (congestive heart failure) Chronic kidney disease (CKD) Chronic kidney disease, stage 4 (severe) COPD (chronic obstructive pulmonary disease) Depression Depression with anxiety Diabetes mellitus with hyperglycemia, with long-term current use of insulin Diverticulitis Elevated cholesterol Erectile dysfunction History of alcohol abuse History of headache HTN (hypertension) Hx of pancreatitis Hypertension Hypertriglyceridemia On beta doron at home Pancreatitis Peptic ulcer Proteinuria Sleep apnea Type 2 diabetes mellitus with chronic kidney disease Type 2 diabetes mellitus with hyperglycemia, with long-term current use of insulin Type 2 diabetes mellitus with polyneuropathy Functional capacity: independent ambulation Family History Mother Diabetes Family history: reviewed and not pertinent Surgical History Hx of colonoscopy Hx of right inguinal hernia repair Social History Household Members: None Housing: Apartment Alcohol intake: former Smoking Status: Never smoker Tobacco Type: Cigarette Cigarettes Per Day: 4 Years Smoked: 30 Second Hand Smoke Exposure: Yes Advance Directives: No service: No Current occupational status: retired Meds Allergies Allergy/AdvReac Type Severity Reaction Status Date / Time No Known Allergies Allergy Verified 01/22/21 19:16 Active Medications: Current Medications Generic Name Dose Route Start Last Admin Trade Name Freq PRN Reason Stop Dose Admin Pharmacy Consult 1 each 02/02/21 23:51 Consult Rx Perform Med Rec MISCELLANE ONCE PRN Consult order Home Medications Medication Instructions Recorded Confirmed Last Taken Type aspirin [Aspir-81] 81 mg PO DAILY 07/25/20 02/03/21 02/02/21 History atorvastatin 80 mg PO DAILY 07/25/20 02/03/21 02/02/21 History carvedilol 25 mg PO BID 07/25/20 02/03/21 02/02/21 History cholecalciferol (vitamin D3) 25 mcg PO DAILY 07/25/20 02/03/21 02/02/21 History [Vitamin D3] fenofibrate nanocrystallized 145 mg PO DAILY 07/25/20 02/03/21 02/02/21 History gabapentin 600 mg PO TID 07/25/20 02/03/21 02/02/21 History oxcarbazepine 300 mg PO BID 07/25/20 02/03/21 02/02/21 History perphenazine 4 mg PO BID 07/25/20 02/03/21 02/02/21 History sertraline 100 mg PO DAILY 07/25/20 02/03/21 02/02/21 History spironolactone 50 mg PO DAILY 07/25/20 02/03/21 02/02/21 History torsemide 20 mg PO DAILY 07/25/20 02/03/21 02/02/21 History Flovent HFA 4 puff INHALATION BID 01/23/21 02/03/21 02/02/21 History Toujeo Max U-300 SoloStar 60 unit SUBCUT DAILY 01/23/21 02/03/21 02/02/21 History insulin aspart U-100 [Novolog See Rx Instructions .ROUTE .COMPLEX 01/23/21 02/03/21 02/02/21 History Flexpen U-100 Insulin] tramadol 2 tab PO Q8H PRN 01/23/21 02/03/21 02/02/21 History zolpidem 1 tab PO BEDTIME 01/23/21 02/03/21 02/02/21 History Physical Exam Vital Signs and Narrative: Vital Signs: Last Vital Signs Temp 97.8 F 02/03/21 03:13 Pulse 53 02/03/21 03:13 Resp 16 02/03/21 03:13 BP 188/73 H 02/03/21 03:13 Pulse Ox 98 02/03/21 03:13 Body Mass Index 34.8 Const: General: cooperative and no acute distress Orientation/consciousness: patient oriented x3 Eyes: General: appearance normal, both eyes and all related structures Pupils: Equal, round and reactive pupils present Resp: Effort & Inspection: normal respiratory effort and able to speak in complete sentences Cardio: Rate: regular rate Rhythm: regular rhythm GI: Other: Epigastric tenderness, positive for guarding, no rebound Palpation (GI): Soft to palpation Auscultation: normal bowel sounds Skin: General skin exam: no rashes or lesions noted Neuro: General: patient oriented x3 Cranial nerves: Yes Equal, round and reactive pupils present Cognition (Neuro): normal cognition Extrem: General: Yes normal to inspection and Yes no pedal edema Results Labs CBC and Chem 7: 02/02/21 18:02 02/02/21 18:02 Labs: Laboratory Results - last 24 hr 02/02/21 02/02/21 02/02/21 18:02 18:02 18:02 MCV 90.0 MCH 32.0 MCHC 35.6 RDW 13.1 Plt Count 169 MPV 12.0 Immature Gran % (Auto) 0.5 H Neut % (Auto) 70.9 Lymph % (Auto) 19.5 L Perkins % (Auto) 5.1 Eos % (Auto) 3.8 Baso % (Auto) 0.2 Lymph # (Auto) 1.6 Perkins # (Auto) 0.4 Eos # (Auto) 0.3 Baso # (Auto) 0.0 Abs Immat Gran (auto) 0.04 H Absolute Neuts (auto) 5.8 Absolute Nucleated RBC 0.000 Nucleated RBC % (auto) 0.0 Hold Blue Top SEE NOTE Anion Gap 14 Estim Creat Clear Calc 28.8 Estimated GFR 18 Random Glucose 164 H Calcium 7.7 L Total Bilirubin Direct Bilirubin AST ALT Alkaline Phosphatase Troponin I High Sens Total Protein Albumin Triglycerides 598 Cholesterol 166 LDL Cholesterol, Calc TNP HDL Cholesterol 28 Lipase Urine Color Urine Appearance Urine pH Ur Specific [place] Urine Protein Urine Glucose (UA) Urine Ketones Urine Blood Urine Nitrite Ur Leukocyte Esterase Urine RBC Urine WBC Ur Squamous Epith Cells Urine Bacteria Urine Mucus COVID-19 ([facility]) COVID-19 Clin Com 02/02/21 02/02/21 02/02/21 18:02 18:02 23:30 MCV MCH MCHC RDW Plt Count MPV Immature Gran % (Auto) Neut % (Auto) Lymph % (Auto) Perkins % (Auto) Eos % (Auto) Baso % (Auto) Lymph # (Auto) Perkins # (Auto) Eos # (Auto) Baso # (Auto) Abs Immat Gran (auto) Absolute Neuts (auto) Absolute Nucleated RBC Nucleated RBC % (auto) Hold Blue Top Anion Gap Estim Creat Clear Calc Estimated GFR Random Glucose Calcium Total Bilirubin Direct Bilirubin AST ALT Alkaline Phosphatase Troponin I High Sens 15.3 Total Protein Albumin Triglycerides Cholesterol LDL Cholesterol, Calc HDL Cholesterol Lipase 69 Urine Color YELLOW Urine Appearance CLEAR Urine pH 6.5 Ur Specific [place] 1.025 Urine Protein 3+ H Urine Glucose (UA) NEG Urine Ketones NEG Urine Blood 1+ H Urine Nitrite NEG Ur Leukocyte Esterase NEG Urine RBC 0-2 Urine WBC 0-2 Ur Squamous Epith Cells TRACE Urine Bacteria TRACE Urine Mucus TRACE COVID-19 ([facility]) COVID-19 Clin Com 02/03/21 02/03/21 02/03/21 00:34 00:34 00:35 MCV MCH MCHC RDW Plt Count MPV Immature Gran % (Auto) Neut % (Auto) Lymph % (Auto) Perkins % (Auto) Eos % (Auto) Baso % (Auto) Lymph # (Auto) Perkins # (Auto) Eos # (Auto) Baso # (Auto) Abs Immat Gran (auto) Absolute Neuts (auto) Absolute Nucleated RBC Nucleated RBC % (auto) Hold Blue Top Anion Gap Estim Creat Clear Calc Estimated GFR Random Glucose Calcium Total Bilirubin < 0.2 Direct Bilirubin < 0.2 AST 17 ALT 17 Alkaline Phosphatase 61 Troponin I High Sens 19.8 Total Protein 6.3 L Albumin 3.7 Triglycerides Cholesterol LDL Cholesterol, Calc HDL Cholesterol Lipase Urine Color Urine Appearance Urine pH Ur Specific [place] Urine Protein Urine Glucose (UA) Urine Ketones Urine Blood Urine Nitrite Ur Leukocyte Esterase Urine RBC Urine WBC Ur Squamous Epith Cells Urine Bacteria Urine Mucus COVID-19 ([facility]) Negative COVID-19 Clin Com See Note Imaging Radiologist's Impressions: Impressions Abdomen/Pelvis CT 02/02/21 19:52 IMPRESSION: 1. Enlarged fatty liver 2. Mild edematous changes around the pancreatic head unchanged from the prior study consistent with pancreatitis 3. Incidental note made of colonic diverticulosis, bilateral inguinal fat-containing hernias and lipomas in both quadratus lumborum muscles. Assessment and Plan (1) Pancreatitis: Qualifiers: Acute pancreatitis complication: unspecified Chronicity: acute Pancreatitis type: unspecified pancreatitis type Qualified Code(s): K85.90 - Acute pancreatitis without necrosis or infection, unspecified Status: Acute (2) Hypertensive crisis: Status: Acute This is a 6-year-old male with past medical history of pancreatitis, diabetes, hypertension, hyperlipidemia, who presents to the hospital with complaints of abdominal pain found to have acute pancreatitis # acute pancreatitis - denies drinking alcohol at this time, reports that he used to be drinking many years ago, no evidence of cholecystitis or cholelithiasis on CT abdomen, Plan: - will start him on IV fluids aggressively, pain control, NPO - will evaluate triglyceride levels - patient on many medications, possibly contributing to his pancreatitis # diabetes - continue home insulin - add low-dose sliding scale insulin - diabetic diet # hypertensive crisis - presented with systolic blood pressure of 230, currently 188 - will resume his home medications - monitor BP # CHF - no exacerbation - continue torsemide 20 mg daily, carvedilol, lisinopril # hyperlipidemia - Continue statin DVT prophylaxis: Lovenox
[2021-02-03 05:24] LABS: Triglycerides 394 mg/dL
--- NOTE | 2021-02-03 06:15 | PC.NURSE ---
PT REPORTS ABD PAIN PAIN- HOSPITALIST NOTIFIED, AWAITING PAIN AUTOMATION AND CONTROL ENGINEER.
[2021-02-03] MEDS: Lactated Ringers 1,000 ML 200 ML IVCONT ×3 (06:26→15:56)
[2021-02-03] MEDS: Morphine Sulfate 4 MG/ML CARTRIDGE IVPUSH ×2 (06:28→11:33)
--- NOTE | 2021-02-03 07:07 | PC.NURSE ---
report taken from george serrato pt here as inpt admit for acute pancreatitis. iv fluids infusing, pt alert and oriented, sitting in position of comfort. appears comfortable. awaiting bed assignment. wctm.
[2021-02-03] MEDS: HYDROmorphone HCl 0.5 MG/0.5 ML SYRINGE IVPUSH ×3 (09:14→20:27)
--- NOTE | 2021-02-03 11:35 | PC.NURSE ---
medicated w prn pain medication. pt slightly agitated about waiting time for inpt bed. reassured.
--- NOTE | 2021-02-03 12:03 | HO.PM.IMPN ---
Subjective Subjective Date of Service: 02/03/21 Interval History: seen and examined this AM abdominal pain still persists he denies alcohol use or new medications reprots he didnt take his BP meds yesterday ROS General - no fevers or chills Cardiovascular - no chest pain Respiratory - no shortness of breath or cough Abdominal- +diffuse abdominal pain Physical Exam Vital Signs: Vital Signs: Last Vital Signs Temp 97.8 F 02/03/21 03:13 Pulse 51 02/03/21 09:14 Resp 20 02/03/21 09:14 BP 161/89 H 02/03/21 09:14 Pulse Ox 98 02/03/21 09:14 Body Mass Index 34.8 Const: General: cooperative, healthy appearing and no acute distress Eyes: Pupils: Equal, round and reactive pupils present Neck: Neck: Yes supple Chest: Chest palpation & inspection: normal inspection of the chest Resp: Effort & Inspection: normal respiratory effort and able to speak in complete sentences Auscultation: clear to auscultation bilaterally Cardio: Jugular venous distension: no JVD Rhythm: regular rhythm Heart sounds: S1 normal heart sound present and S2 normal heart sound present GI: Inspection: Yes normal to inspection Palpation (GI): Tenderness to palpation present (GI) (diffuse) with no rebound tenderness Skin: General skin exam: no rashes or lesions noted Neuro: Cranial nerves: Yes Equal, round and reactive pupils present Motor exam (neuro): Other motor observations present ( no motor deficit) Objective Data Current Medications Generic Name Dose Route Start Last Admin Trade Name Freq PRN Reason Stop Dose Admin Aspirin 81 mg 02/03/21 12:02 Aspirin Enteric Coated 81 Mg Tablet.Dr PO DAILY [facility] Atorvastatin Calcium 80 mg 02/03/21 12:02 Atorvastatin Calcium 80 Mg Tablet PO DAILY [facility] Carvedilol 25 mg 02/03/21 12:02 Carvedilol 25 Mg Tablet PO BID [facility] Protocol Docusate Sodium 100 mg 02/03/21 12:02 Docusate Sodium 100 Mg Capsule PO DAILY PRN Constipation Gabapentin 600 mg 02/03/21 12:02 Gabapentin 600 Mg Tablet PO TID [facility] Hydromorphone HCl 0.5 mg 02/03/21 05:58 02/03/21 09:14 Hydromorphone Hcl 0.5 Mg/0.5 Ml Syringe IVPUSH 0.5 mg Q4H PRN Administration Pain, Severe (Pain Scale 7-10) Lactated Ringer's 1,000 mls @ 200 mls/hr 02/03/21 04:45 02/03/21 10:17 Lr IVCONT 200 mls/hr .Q5H [facility] Administration Non-Formulary Medication 120 mg 02/03/21 12:02 Nifedipine PO DAILY [facility] Oxcarbazepine 300 mg 02/03/21 12:02 Oxcarbazepine 300 Mg Tablet PO BID [facility] Perphenazine 4 mg 02/03/21 12:02 Perphenazine 4 Mg Tablet PO BID [facility] Pharmacy Consult 1 each 02/02/21 23:51 Consult Rx Perform Med Rec MISCELLANE ONCE PRN Consult order Sertraline HCl 200 mg 02/04/21 09:00 Sertraline Hcl 100 Mg Tablet PO DAILY [facility] Tramadol HCl 100 mg 02/03/21 12:02 Tramadol Hcl 50 Mg Tablet PO Q8H PRN Pain Vitamin D 25 mcg 02/03/21 12:02 Cholecalciferol (Vitamin D3) 25 Mcg Tablet PO DAILY [facility] Zolpidem Tartrate 10 mg 02/03/21 21:00 Zolpidem Tartrate 5 Mg Tablet PO BEDTIME [facility] Labs CBC & Chem 7: 02/02/21 18:02 02/02/21 18:02 Assessment and Plan (1) Hypertensive crisis: Status: Acute (2) Pancreatitis: Status: Acute Assessment and Plan: This is a 60 yo M with a past medical history of prior alcohol abuse and dependence, who reports he has not drank in 5-6 years, chronic kidney disease, uncontrolled hypertension, diabetes, who was admitted to the hospital from 01/23-01/25 for pancreatitis which was treated in the usual fashion and he was discharged home to after was clinically resolved. During that admission no specific cause for his pancreatitis who was found. He now presents back with abdominal pain and uncontrolled hypertension is admitted for acute pancreatitis and hypertensive crisis. Of note, he was in the ED on 01/29 where it documented that he reported alcohol use 1. Acute pancreatitis probably alcohol related His lipase is normal, however there is some evidence of pancreatitis on CT scan Again he denies alcohol use however this is questionable. ED visist on 01/29 documents he drank alcohol during that visit He denies any new medications Keep NPO for the time being and IV 2. Hypertensive crisis Blood pressure on arrival to the emergency room was 230/90 Suspect due to noncompliance with his antihypertensives along with pain from pancreatitis This has now improved Will restart his home regiment at this time with the exception of his lisinopril (Mild SCr rise from discharge 10 days ago) and his diuretics. Continue Coreg and nifedipine 3. Diabetes mellitus Use insulin sliding scale Hold long-acting while he is NPO 4. CKD stage 3/4 SCr slightly up from baseline monitor hold nephrotoxins consult nephrology if SCr worsens 5. Obeisty weight loss is encouraged 6. Chronic Distolic CHF Grade I diastolic dysfuction on Echo from 05/16 monitor resp status while on IVF Full Code DVT pptx, subcut. heparin
[2021-02-03 13:17] LABS: C Reactive Protein 0.33 mg/dL (< or = 0.50); Gamma Glutamyl Transpeptidase 21 U/L (11-51); Lactate Dehydrogenase 191 U/L (118-273)
[2021-02-03] MEDS: Gabapentin 600 MG TABLET PO ×2 (13:33→20:26)
[2021-02-03] MEDS: carvediloL 25 MG TABLET PO (13:33)
[2021-02-03] MEDS: Heparin Sodium,Porcine 5,000 UNIT/ML VIAL 5000 UNIT SUBCUT ×2 (13:33→20:27)
[2021-02-03] MEDS: Aspirin Enteric Coated 81 MG TABLET.DR PO (13:33)
[2021-02-03] MEDS: Cholecalciferol (Vitamin D3) 25 MCG TABLET PO (13:33)
[2021-02-03] MEDS: OXcarbazepine 300 MG TABLET PO ×2 (13:34→20:26)
[2021-02-03] MEDS: Perphenazine 4 MG TABLET PO ×2 (13:39→20:26)
--- NOTE | 2021-02-03 13:41 | PC.NURSE ---
medicated per emar, toleraating po w/o issue.
[2021-02-03 16:52] LABS: Glucose, Whole Blood 64 mg/dL (60-115)
[2021-02-03] MEDS: traMADoL HCL 50 MG TABLET 100 MG PO (16:56)
[2021-02-03] MEDS: Torsemide 20 MG TABLET PO (16:56)
[2021-02-03] MEDS: Zolpidem Tartrate 5 MG TABLET 10 MG PO (20:26)
[2021-02-03] MEDS: Atorvastatin Calcium 80 MG TABLET PO (20:26)
[2021-02-03] MEDS: Fluticasone Propionate 100 MCG BLST.W.DEV 4 PUFF INHALE (20:42)
[2021-02-03 21:29] LABS: Glucose, Whole Blood 101 mg/dL (60-115)
[2021-02-04] VITALS (10 sets, daily range): BP systolic 148–198; BP diastolic 80–86; PULSE 50–74; RESP 16–19; TEMP 36.1–37.2; O2SAT 96–100
[2021-02-04] MEDS: Lactated Ringers 1,000 ML 125 ML IVCONT (00:44)
[2021-02-04] MEDS: Heparin Sodium,Porcine 5,000 UNIT/ML VIAL 5000 UNIT SUBCUT ×3 (06:00→21:39)
[2021-02-04] MEDS: HYDROmorphone HCl 0.5 MG/0.5 ML SYRINGE IVPUSH (06:04)
[2021-02-04 07:24] LABS: Glucose, Whole Blood 69 mg/dL (60-115)
[2021-02-04 08:06] LABS: MANUAL DIFF FLAG NO
[2021-02-04] MEDS: Perphenazine 4 MG TABLET PO ×2 (08:07→21:39)
[2021-02-04] MEDS: Fenofibrate 160 MG TABLET PO (08:07)
[2021-02-04] MEDS: Gabapentin 600 MG TABLET PO ×3 (08:07→21:39)
[2021-02-04] MEDS: Sertraline HCL 100 MG TABLET 200 MG PO (08:07)
[2021-02-04] MEDS: carvediloL 25 MG TABLET PO (08:07)
[2021-02-04] MEDS: Torsemide 20 MG TABLET PO (08:07)
[2021-02-04] MEDS: OXcarbazepine 300 MG TABLET PO ×2 (08:07→21:40)
[2021-02-04] MEDS: Cholecalciferol (Vitamin D3) 25 MCG TABLET PO (08:11)
[2021-02-04] MEDS: Aspirin Enteric Coated 81 MG TABLET.DR PO (08:11)
[2021-02-04 08:17] LABS: Basophils Percent Auto 0.4 % (0-2); Eosinophils Absolute Auto 0.3 X10*3/uL (0.0-0.4); Eosinophils Percent Auto 3.5 % (0-4); Hematocrit 34.4 % (42-52); Hemoglobin 11.5 g/dl (14.0-18.0); Imm Gran Abs Auto 0.03 X10*3/uL (0.00-0.03); Imm Gran Pct Auto 0.4 % (0.0-0.4); Lymphocytes Absolute Auto 1.3 X10*3/uL (1.2-4.9); Lymphocytes Percent Auto 15.3 % (20-40); Mean Corpuscular HGB Conc 33.4 g/dl (31.0-36.0); Mean Corpuscular Hemoglobin 30.6 pg (27.0-33.0); Mean Corpuscular Volume 91.5 fL (80-98); Mean Platelet Volume 12.9 fL (9.4-12.4); Monocytes Absolute Auto 0.4 X10*3/uL (0.1-1.2); Monocytes Percent Auto 5.1 % (2-11); Neutrophils Absolute Auto 6.2 X10*3/uL (2.0-8.3); Neutrophils Percent Auto 75.3 % (45-73); Platelet Count 162 X10*3/uL (160-400); Red Blood Count 3.76 X10*6/uL (4.60-5.80); Red Cell Distribution Width 13.4 % (11.0-16.0); White Blood Count 8.2 X10*3/uL (4.8-10.8)
[2021-02-04] MEDS: Fluticasone Propionate 100 MCG BLST.W.DEV 4 PUFF INHALE ×2 (08:22→19:41)
[2021-02-04 08:29] LABS: Hematocrit 35.4 % (42-52); Hemoglobin 11.9 g/dl (14.0-18.0); Mean Corpuscular HGB Conc 33.6 g/dl (31.0-36.0); Mean Corpuscular Hemoglobin 30.7 pg (27.0-33.0); Mean Corpuscular Volume 91.5 fL (80-98); Mean Platelet Volume 12.1 fL (9.4-12.4); Platelet Count 150 X10*3/uL (160-400); Red Blood Count 3.87 X10*6/uL (4.60-5.80); Red Cell Distribution Width 13.4 % (11.0-16.0); White Blood Count 8.7 X10*3/uL (4.8-10.8)
[2021-02-04 08:39] LABS: Anion Gap 14 (12-20); Blood Urea Nitrogen 42 mg/dL (9-16); Calcium 8.1 mg/dL (8.4-10.2); Carbon Dioxide 25 mmol/L (22-29); Chloride 107 mmol/L (96-108); Creatinine Clr Calc Pharmacy 33.7; Estimated Glomerular Filt Rate 22; Glucose Random 66 mg/dL (60-115); Potassium 4.3 mmol/L (3.3-5.1); Sodium 142 mmol/L (135-145)
[2021-02-04 08:57] LABS: Anion Gap 15 (12-20); Blood Urea Nitrogen 42 mg/dL (9-16); Calcium 8.3 mg/dL (8.4-10.2); Carbon Dioxide 22 mmol/L (22-29); Chloride 108 mmol/L (96-108); Creatinine Clr Calc Pharmacy 33.4; Estimated Glomerular Filt Rate 21; Glucose Random 72 mg/dL (60-115); Potassium 4.4 mmol/L (3.3-5.1); Sodium 141 mmol/L (135-145)
[2021-02-04 11:19] LABS: Glucose, Whole Blood 88 mg/dL (60-115)
[2021-02-04] MEDS: traMADoL HCL 50 MG TABLET 100 MG PO (11:24)
--- NOTE | 2021-02-04 11:31 | MHC.CM.PN ---
PATIENT REPORTS THAT HE LIVES ALONE AND IS FULLY INDEPENDENT NO DME. RN VISITS ONCE EVERY 3-6 MONTHS NEEDED. PATIENT'S DAUGHTER CYNTHIA WILL PROVIDE TRANSPORT HOME AT TIME OF DISCHARGE. HE IS CONSIDERING ASSIGNING AND HCP AND CM WILL RETURN TO ASK IF HE HAS DECIDED. IMM 02/04 IN CHART.
--- NOTE | 2021-02-04 11:52 | P.PNIM_ITS ---
Subjective Subjective Date of Service: 02/04/21 <CORNELIO Villatoro - Last Filed: 02/04/21 12:19> 02/04/21 <Brenton Dial MD - Last Filed: 02/04/21 15:10> Interval History: f/u admission for pancreatitis reports epigastric abdominal pain tolerating clear liquids <CORNELIO Villatoro - Last Filed: 02/04/21 12:19> Review of Systems Review of Systems: Yes all other systems are reviewed and are negative <CORNELIO Villatoro - Last Filed: 02/04/21 12:19> Constitutional Constitutional: Denies chills and Denies fever(s) <CORNELIO Villatoro - Last Filed: 02/04/21 12:19> Cardiovascular Cardiovascular: Denies chest pain <CORNELIO Villatoro - Last Filed: 02/04/21 12:19> Respiratory Respiratory: Denies cough <CORNELIO Villatoro - Last Filed: 02/04/21 12:19> Gastrointestinal Gastrointestinal: Reports abdominal pain <CORNELIO Villatoro - Last Filed: 02/04/21 12:19> Physical Exam Vital Signs: Vital Signs: Last Vital Signs Temp 98.1 F 02/04/21 11:02 Pulse 54 02/04/21 11:02 Resp 18 02/04/21 11:02 BP 198/80 H 02/04/21 11:02 Pulse Ox 98 02/04/21 11:02 Body Mass Index 34.8 <CORNELIO Villatoro - Last Filed: 02/04/21 12:19> Const: General: alert and awake <CORNELIO Villatoro - Last Filed: 02/04/21 12:19> Nutritional Appearance: well nourished <CORNELIO Villatoro - Last Filed: 02/04/21 12:19> Orientation/consciousness: patient oriented x3 <CORNELIO Villatoro - Last Filed: 02/04/21 12:19> HENMT: Head: Yes normocephalic and Yes atraumatic <CORNELIO Villatoro - Last Filed: 02/04/21 12:19> Eyes: Sclerae: sclerae normal <CORNELIO Villatoro Last Filed: 02/04/21 12:19> Chest: Chest palpation & inspection: normal inspection of the chest <CORNELIO Villatoro Last Filed: 02/04/21 12:19> Resp: Effort & Inspection: normal respiratory effort and no respiratory di stress <CORNELIO Villatoro Last Filed: 02/04/21 12:19> Cardio: Rate: regular rate <CORNELIO Villatoro Last Filed: 02/04/21 12:19> Rhythm: regular rhythm <CORNELIO Villatoro Last Filed: 02/04/21 12:19> GI: Palpation (GI): Soft to palpation and Tenderness to palpation present (GI) in the epigastrum <CORNELIO Villatoro Last Filed: 02/04/21 12:19> Neuro: General: patient oriented x3 <CORNELIO Villatoro Last Filed: 02/04/21 12:19> Cranial nerves: Yes CN's II-XII intact bilaterally and Yes Bilaterally intact EOM present <CORNELIO Villatoro Last Filed: 02/04/21 12:19> Extrem: General: Yes normal to inspection <CORNELIO Villatoro Last Filed: 02/04/21 12:19> Objective Data Current Medications Generic Name Dose Route Start Last Admin Trade Name Freq PRN Reason Stop Dose Admin Acetaminophen 650 mg 02/03/21 16:34 Acetaminophen 325 Mg Tablet PO Q6H PRN Pain, Mild (Pain Scale 1-3) Al Hydroxide/Mg Hydroxide 30 ml 02/03/21 16:34 Magnesium Hydrox/Alum Hydrox 30 Ml Oral.Susp PO Q4H PRN Heartburn/Nausea Aspirin 81 mg 02/03/21 12:02 02/04/21 08:11 Aspirin Enteric Coated 81 Mg Tablet.Dr PO 81 mg DAILY [facility] Administration Atorvastatin Calcium 80 mg 02/03/21 21:00 02/03/21 20:26 Atorvastatin Calcium 80 Mg Tablet PO 80 mg BEDTIME [facility] Administration Carvedilol 25 mg 02/03/21 12:02 02/04/21 08:07 Carvedilol 25 Mg Tablet PO 25 mg BID [facility] Administration Protocol Docusate Sodium 100 mg 02/03/21 12:02 Docusate Sodium 100 Mg Capsule PO DAILY PRN Constipation Fenofibrate 160 mg 02/04/21 09:00 02/04/21 08:07 Fenofibrate 160 Mg Tablet PO 160 mg DAILY [facility] Administration Fluticasone Propionate 4 puff 02/03/21 20:00 02/04/21 08:22 Fluticasone Propionate 100 Mcg Blst.W.Dev INHALE 4 puff RBID [facility] Administration Gabapentin 600 mg 02/03/21 15:00 02/04/21 08:07 Gabapentin 600 Mg Tablet PO 600 mg TID [facility] Administration Heparin Sodium (Porcine) 5,000 unit 02/03/21 12:30 02/04/21 06:00 Heparin Sodium,Porcine 5,000 Unit/Ml Vial SUBCUT 5,000 unit Q8H [facility] Administration Hydromorphone HCl 0.5 mg 02/03/21 05:58 02/04/21 06:04 Hydromorphone Hcl 0.5 Mg/0.5 Ml Syringe IVPUSH 0.5 mg Q4H PRN Administration Pain, Severe (Pain Scale 7-10) Lactated Ringer's 1,000 mls @ 125 mls/hr 02/03/21 04:45 02/04/21 09:43 Lr IVCONT Infused .Q8H [facility] Infusion Insulin Human Lispro 0 unit 02/03/21 16:34 02/04/21 11:28 Insulin Lispro 100 Unit/Ml 3 Ml Vial SUBCUT Not Given QIDACHS [facility] Protocol Nifedipine 120 mg 02/03/21 21:00 02/03/21 20:33 Nifedipine Er 60 Mg Tab.Er.24 PO Not Given BEDTIME [facility] Ondansetron HCl 4 mg 02/03/21 16:34 Ondansetron Hcl 4 Mg/2 Ml Vial IVPUSH Q8H PRN Nausea and Vomiting Oxcarbazepine 300 mg 02/03/21 12:02 02/04/21 08:07 Oxcarbazepine 300 Mg Tablet PO 300 mg BID [facility] Administration Perphenazine 4 mg 02/03/21 12:02 02/04/21 08:07 Perphenazine 4 Mg Tablet PO 4 mg BID [facility] Administration Pharmacy Consult 1 each 02/02/21 23:51 Consult Rx Perform Med Rec MISCELLANE ONCE PRN Consult order Sertraline HCl 200 mg 02/04/21 09:00 02/04/21 08:07 Sertraline Hcl 100 Mg Tablet PO 200 mg DAILY [facility] Administration Sodium Chloride 3 ml 02/03/21 16:34 02/04/21 09:42 0.9 % Sodium Chloride Flush 3 Ml Syringe IVFLUSH Not Given QSHIFT [facility] Torsemide 20 mg 02/03/21 16:34 02/04/21 08:07 Torsemide 20 Mg Tablet PO 20 mg DAILY [facility] Administration Protocol Tramadol HCl 100 mg 02/03/21 12:02 02/04/21 11:24 Tramadol Hcl 50 Mg Tablet PO 100 mg Q8H PRN Administration Pain Vitamin D 25 mcg 02/03/21 12:02 02/04/21 08:11 Cholecalciferol (Vitamin D3) 25 Mcg Tablet PO 25 mcg DAILY [facility] Administration Zolpidem Tartrate 10 mg 02/03/21 21:00 02/03/21 20:26 Zolpidem Tartrate 5 Mg Tablet PO 10 mg BEDTIME [facility] Administration <CORNELIO Villatoro - Last Filed: 02/04/21 12:19> Labs CBC & Chem 7: : 02/04/21 08:10 02/04/21 08:10 <CORNELIO Villatoro - Last Filed: 02/04/21 12:19> Assessment and Plan (1) Pancreatitis: Status: Acute <CORNELIO Villatoro - Last Filed: 02/04/21 12:19> (2) Sleep apnea: Problem details: CPAP <CORNELIO Villatoro - Last Filed: 02/04/21 12:19> Status: Acute <CORNELIO Villatoro - Last Filed: 02/04/21 12:19> (3) Hypertension: Status: Acute <CORNELIO Villatoro - Last Filed: 02/04/21 12:19> Assessment and Plan: This is a 60-year-old male with a history of hypertension, hyperlipidemia, diabetes admission for pancreatitis who presented to the emergency department with abdominal pain found to have uncontrolled hypertension and readmitted for pancreatitis Pancreatitis Recent admission for the same, CT unchanged. Lipase normal Could be related to elevated triglycerides. Patient denies alcohol use. No gallstones seen on previous ultrasound. -tolerating clear liquid diet, ADAT -continue pain management -GI consult given recurrent admission. Hypertension, uncontrolled Suspect due to noncompliance with his antihypertensives along with pain from pancreatitis -continue nifedipine, coreg, torsemide -resume lisinopril, spironolactone -follow blood pressure closely DM on Clear liquids. POC wnr -home insulin on hold -SSI, POCs HLD -continue lofibra -hold statin, mild elevation in cpk mood continue sertraline, Trileptal, perphenazine asthma no acute exacerbation -continue home inhalers CKD3/4 SCr at baseline -Follow BMP Chronic diastolic CHF -continue torsemide, Aldactone jenni - CPAP dvt ppx - heparin code status - full code Attending: Dr. Dial <CORNELIO Villatoro - Last Filed: 02/04/21 12:19>
[2021-02-04] MEDS: Spironolactone 25 MG TABLET 50 MG PO (13:53)
[2021-02-04] MEDS: lisinopriL 40 MG TABLET PO (14:02)
[2021-02-04 16:37] LABS: Glucose, Whole Blood 107 mg/dL (60-115)
--- NOTE | 2021-02-04 18:36 | PC.NURSE ---
Patient refusing new IV insertion. Provider notified.
[2021-02-04 20:26] LABS: Glucose, Whole Blood 146 mg/dL (60-115)
[2021-02-04] MEDS: oxyCODONE HCl Immed Release 5 MG TABLET PO (21:39)
[2021-02-04] MEDS: Zolpidem Tartrate 5 MG TABLET 10 MG PO (21:39)
[2021-02-05] VITALS (14 sets, daily range): BP systolic 160–202; BP diastolic 58–88; PULSE 52–62; RESP 12–18; TEMP 36.1–36.7; O2SAT 96–100
[2021-02-05] MEDS: oxyCODONE HCl Immed Release 5 MG TABLET PO (05:57)
[2021-02-05] MEDS: Heparin Sodium,Porcine 5,000 UNIT/ML VIAL 5000 UNIT SUBCUT ×3 (05:57→20:42)
[2021-02-05 07:21] LABS: Glucose, Whole Blood 114 mg/dL (60-115)
--- NOTE | 2021-02-05 07:35 | PM.GIPN ---
Subjective Subjective Date of Service: 02/05/21 Interval History: FORMAL CONSULTATION FOR THIS PATIENT CAN BE FOUND IN THE RECORD: 01/23/21--MD PAULA I have been asked to see this patient due to his readmission. He represented with upper abdominal pain and persistent abnormal findings on CT abd--done on 02/02/21: IMPRESSION: 1. Enlarged fatty liver 2. Mild edematous changes around the pancreatic head unchanged from the prior study consistent with pancreatitis 3. Incidental note made of colonic diverticulosis, bilateral inguinal fat-containing hernias and lipomas in both quadratus lumborum muscles. HX: Patient tells me that he was pain free when he went home. He does not associate the pain with anything he ate or medications. He denied alcohol use with me. (He has a hx of alcohol abuse, but only 1 of the ER notes specifically addresses alcohol.(01/29). He said pain recurred on the 3rd- of this month. He can to ER. He was discharged home. Recent recurrence of pain he was admitted due to the persistence of the CT findings. He denies pain this AM. He ate solid food scrambled eggs for breakfast with no problems. Physical Exam Vital Signs: Vital Signs: Last Vital Signs Temp 97.2 F 02/05/21 03:16 Pulse 59 02/05/21 03:16 Resp 18 02/05/21 03:16 BP 160/86 H 02/05/21 03:16 Pulse Ox 100 02/05/21 03:16 Body Mass Index 34.8 Const: General: cooperative, no acute distress and alert Nutritional Appearance: obese (BMI-34.9) Orientation/consciousness: patient oriented x3 Resp: Effort & Inspection: normal respiratory effort and able to speak in complete sentences Cardio: Rate: regular rate Rhythm: regular rhythm GI: Inspection: Yes normal to inspection Palpation (GI): Soft to palpation, nontender, no guarding and no masses Neuro: General: patient oriented x3 Extrem: General: Yes no clubbing, cyanosis or edema Objective Data Labs CBC & Chem 7: 02/04/21 08:10 02/07/21 11:29 Labs: Laboratory Results - last 24 hr 02/04/21 02/04/21 02/04/21 07:20 07:20 08:10 WBC 8.2 8.7 RBC 3.76 L 3.87 L Hgb 11.5 L 11.9 L Hct 34.4 L 35.4 L MCV 91.5 91.5 MCH 30.6 30.7 MCHC 33.4 33.6 RDW 13.4 13.4 Plt Count 162 150 L MPV 12.9 H 12.1 Immature Gran % (Auto) 0.4 Neut % (Auto) 75.3 H Lymph % (Auto) 15.3 L [place] % (Auto) 5.1 Eos % (Auto) 3.5 Baso % (Auto) 0.4 Lymph # (Auto) 1.3 [place] # (Auto) 0.4 Eos # (Auto) 0.3 Baso # (Auto) 0.0 Abs Immat Gran (auto) 0.03 Absolute Neuts (auto) 6.2 Absolute Nucleated RBC 0.000 0.000 Nucleated RBC % (auto) 0.0 0.0 Sodium 142 Potassium 4.3 Chloride 107 Carbon Dioxide 25 Anion Gap 14 BUN 42 H Creatinine 2.98 H Estim Creat Clear Calc 33.7 Estimated GFR 22 POC Glucose Random Glucose 66 D Calcium 8.1 L Total Creatine Kinase 02/04/21 02/04/21 02/04/21 08:10 11:01 16:32 WBC RBC Hgb Hct MCV MCH MCHC RDW Plt Count MPV Immature Gran % (Auto) Neut % (Auto) Lymph % (Auto) [place] % (Auto) Eos % (Auto) Baso % (Auto) Lymph # (Auto) [place] # (Auto) Eos # (Auto) Baso # (Auto) Abs Immat Gran (auto) Absolute Neuts (auto) Absolute Nucleated RBC Nucleated RBC % (auto) Sodium 141 Potassium 4.4 Chloride 108 Carbon Dioxide 22 Anion Gap 15 BUN 42 H Creatinine 3.01 H Estim Creat Clear Calc 33.4 Estimated GFR 21 POC Glucose 88 107 Random Glucose 72 Calcium 8.3 L Total Creatine Kinase 454 H 02/04/21 02/05/21 20:21 07:00 WBC RBC Hgb Hct MCV MCH MCHC RDW Plt Count MPV Immature Gran % (Auto) Neut % (Auto) Lymph % (Auto) [place] % (Auto) Eos % (Auto) Baso % (Auto) Lymph # (Auto) [place] # (Auto) Eos # (Auto) Baso # (Auto) Abs Immat Gran (auto) Absolute Neuts (auto) Absolute Nucleated RBC Nucleated RBC % (auto) Sodium Potassium Chloride Carbon Dioxide Anion Gap BUN Creatinine Estim Creat Clear Calc Estimated GFR POC Glucose 146 H 114 Random Glucose Calcium Total Creatine Kinase Progress Note: A&P Assessment and plan (1) Abdominal pain: Status: Resolved Assessment and Plan: In light of presenting with no elevation of Lipase, no fever, no leukocytosis and NORMAL CRP--0.33 would like to pull back from label of Pancreatitis, momentarily, to try to make sure we are not overlooking another process. Interestingly LIPASE LEVEL @ peak was only 278 on 01/22/21. 02/02/21--69 (this has been the range since before his discharge.) Chronic renal disease can falsely elevated Lipase. Patient denies any use of asa or nonsteroidals. CT done in December raised ? abnormality of the second duodenum adjacent to the pancreas. I counselled patient on doing an egd in AM (02/06)to evaluate this area.Ulcer disease can affect the periampullary area and be a cause for pancretitis. (2) Abnormal abdominal CT scan: Status: Resolved Assessment and Plan: Imaging still suggests possible pancreatitis--does not appear to be changed from earlier exam:(CT-ABD/PELVIS) 01/22/21----IMPRESSION: There is subtle fluid and fat stranding adjacent the inferior pancreatic head and transverse portion of the duodenum. Most likely this is secondary to pancreatitis. Consider correlation with serum enzymes. Primary inflammatory process of the duodenum is also possible but considered less likely. Hepatomegaly and diffuse hepatic steatosis. Dictated By:SHIVANI MANSFIELD MD Diabetics can have significant Fatty liver with or without alcohol. This does need to be clarifed for both ? pancreatitis and why Hepatomegaly??? Fall Risk Details Current Medications: Current Medications Generic Name Dose Route Start Last Admin Trade Name Freq PRN Reason Stop Dose Admin Acetaminophen 650 mg 02/03/21 16:34 Acetaminophen 325 Mg Tablet PO Q6H PRN Pain, Mild (Pain Scale 1-3) Al Hydroxide/Mg Hydroxide 30 ml 02/03/21 16:34 Magnesium Hydrox/Alum Hydrox 30 Ml Oral.Susp PO Q4H PRN Heartburn/Nausea Aspirin 81 mg 02/03/21 12:02 02/04/21 08:11 Aspirin Enteric Coated 81 Mg Tablet. PO 81 mg DAILY THAO Administration Atorvastatin Calcium 80 mg 02/03/21 21:00 02/03/21 20:26 Atorvastatin Calcium 80 Mg Tablet PO 80 mg BEDTIME [facility] Administration Carvedilol 25 mg 02/03/21 12:02 02/04/21 21:40 Carvedilol 25 Mg Tablet PO Not Given BID [facility] Protocol Docusate Sodium 100 mg 02/03/21 12:02 Docusate Sodium 100 Mg Capsule PO DAILY PRN Constipation Fenofibrate 160 mg 02/04/21 09:00 02/04/21 08:07 Fenofibrate 160 Mg Tablet PO 160 mg DAILY [facility] Administration Fluticasone Propionate 4 puff 02/03/21 20:00 02/04/21 19:41 Fluticasone Propionate 100 Mcg Blst.W.Dev INHALE 4 puff RBID [facility] Administration Gabapentin 600 mg 02/03/21 15:00 02/04/21 21:39 Gabapentin 600 Mg Tablet PO 600 mg TID [facility] Administration Heparin Sodium (Porcine) 5,000 unit 02/03/21 12:30 02/05/21 05:57 Heparin Sodium,Porcine 5,000 Unit/Ml Vial SUBCUT 5,000 unit Q8H [facility] Administration Hydromorphone HCl 0.5 mg 02/03/21 05:58 02/04/21 06:04 Hydromorphone Hcl 0.5 Mg/0.5 Ml Syringe IVPUSH 0.5 mg Q4H PRN Administration Pain, Severe (Pain Scale 7-10) Insulin Human Lispro 0 unit 02/03/21 16:34 02/04/21 21:40 Insulin Lispro 100 Unit/Ml 3 Ml Vial SUBCUT Not Given QIDACHS [facility] Protocol Lisinopril 40 mg 02/04/21 13:00 02/04/21 14:02 Lisinopril 40 Mg Tablet PO 40 mg DAILY [facility] Administration Protocol Nifedipine 120 mg 02/03/21 21:00 02/04/21 21:40 Nifedipine Er 60 Mg Tab.Er.24 PO Not Given BEDTIME [facility] Ondansetron HCl 4 mg 02/03/21 16:34 Ondansetron Hcl 4 Mg/2 Ml Vial IVPUSH Q8H PRN Nausea and Vomiting Oxcarbazepine 300 mg 02/03/21 12:02 02/04/21 21:40 Oxcarbazepine 300 Mg Tablet PO 300 mg BID [facility] Administration Oxycodone HCl 5 mg 02/04/21 21:12 02/05/21 05:57 Oxycodone Hcl Immed Release 5 Mg Tablet PO 5 mg Q6H PRN Administration Pain, Severe (Pain Scale 7-10) Perphenazine 4 mg 02/03/21 12:02 02/04/21 21:39 Perphenazine 4 Mg Tablet PO 4 mg BID THAO Administration Pharmacy Consult 1 each 02/02/21 23:51 Consult Rx Perform Med Rec MISCELLANE ONCE PRN Consult order Sertraline HCl 200 mg 02/04/21 09:00 02/04/21 08:07 Sertraline Hcl 100 Mg Tablet PO 200 mg DAILY THAO Administration Sodium Chloride 3 ml 02/03/21 16:34 02/04/21 21:46 0.9 % Sodium Chloride Flush 3 Ml Syringe IVFLUSH Not Given QSHIFT THAO Spironolactone 50 mg 02/04/21 12:30 02/04/21 13:53 Spironolactone 25 Mg Tablet PO 50 mg DAILY THAO Administration Protocol Torsemide 20 mg 02/03/21 16:34 02/04/21 08:07 Torsemide 20 Mg Tablet PO 20 mg DAILY THAO Administration Protocol Tramadol HCl 100 mg 02/03/21 12:02 02/04/21 11:24 Tramadol Hcl 50 Mg Tablet PO 100 mg Q8H PRN Administration Pain Vitamin D 25 mcg 02/03/21 12:02 02/04/21 08:11 Cholecalciferol (Vitamin D3) 25 Mcg Tablet PO 25 mcg DAILY THAO Administration Zolpidem Tartrate 10 mg 02/03/21 21:00 02/04/21 21:39 Zolpidem Tartrate 5 Mg Tablet PO 10 mg BEDTIME THAO Administration Time Spent With Patient Time: Total time spent is greater than 50% in coordination of care (as documented) at patient's floor/unit and/or counseling patient: Time with patient: 25 - 35 minutes
--- NOTE | 2021-02-05 08:55 | PM.DS ---
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: Status: Acute (4) Hypertriglyceridemia: Status: Acute DS: Medications Discharge Medications Home Medications: Home Medications Medication Instructions Recorded Confirmed aspirin [Aspir-81] 81 mg PO DAILY 07/25/20 02/03/21 atorvastatin 80 mg PO DAILY 07/25/20 02/03/21 carvedilol 25 mg PO BID 07/25/20 02/03/21 cholecalciferol (vitamin D3) 50 mcg PO DAILY 07/25/20 02/03/21 [Vitamin D3] fenofibrate nanocrystallized 145 mg PO DAILY 07/25/20 02/03/21 gabapentin 600 mg PO TID 07/25/20 02/03/21 oxcarbazepine 300 mg PO BID 07/25/20 02/03/21 perphenazine 4 mg PO BID 07/25/20 02/03/21 sertraline 200 mg PO DAILY 07/25/20 02/03/21 spironolactone 50 mg PO DAILY 07/25/20 02/03/21 torsemide 20 mg PO DAILY 07/25/20 02/03/21 Flovent HFA 4 puff INHALATION BID 01/23/21 02/03/21 Toujeo Max U-300 SoloStar 60 unit SUBCUT DAILY 01/23/21 02/03/21 insulin aspart U-100 [Novolog See Rx Instructions .ROUTE .COMPLEX 01/23/21 02/03/21 Flexpen U-100 Insulin] tramadol 2 tab PO Q8H PRN 01/23/21 02/03/21 zolpidem 1 tab PO BEDTIME 01/23/21 02/03/21 Previous Rx's Medication Instructions Recorded pen needle, diabetic 32 gauge x #150 ea 08/01/20 lancets 33 gauge #100 ea 08/16/20 acetaminophen [Tylenol Extra 500 mg PO Q6H PRN #20 tab 09/01/20 Strength] lisinopril 40 mg tablet 40 mg PO QAM #30 tab 11/08/20 nifedipine 30 mg tablet,extended 120 mg PO DAILY #120 tab 11/17/20 release DS: Summary Hospital Course Hospital Course: This is a 60-year-old male with a history of hypertension, hyperlipidemia, diabetes recent admission for pancreatitis who presented to the emergency department with abdominal pain found to have uncontrolled hypertension and readmitted for pancreatitis Pancreatitis. Patient was admitted for epigastric abdominal pain thought to be secondary to pancreatitis. Recent admission for the same. CT abdomen mild edematous changes around the pancreatic head unchanged from 01/22. LFTs within normal limits. Lipase was normal. Patient denies alcohol use. No gallstones seen on previous ultrasound from 01/24. Could be related to elevated triglycerides. Already on lofibra and statin. Patient was initially made NPO and treated with IVF and IV analgesia. His diet was slowly advanced and he is currently tolerating a full diabetic diet. Hypertension. Blood pressure was uncontrolled. Suspect due to noncompliance with his antihypertensives along with pain from pancreatitis. Diuretics were initially held while receiving IVF. Abdominal pain of IV fluid related contributing to elevated blood pressure. IV fluid was discontinued and the remainder his blood pressure medication was resumed. He was asymptomatic with no chest pain, shortness of breath. He should follow up with PCP for outpatient blood pressure monitoring in consideration workup for secondary causes. Status at Discharge Functional status at discharge: independent ambulation Time Spent with Patient Time attestation: Total time spent providing and/or coordinating discharge services: Discharge coordination time: Greater than 30 minutes Physical Exam Vital Signs: Vital Signs: Last Vital Signs Temp 97.0 F 02/05/21 07:50 Pulse 62 02/05/21 07:50 Resp 12 02/05/21 07:50 BP 192/62 H 02/05/21 07:50 Pulse Ox 97 02/05/21 07:50 Body Mass Index 34.8 Const: Nutritional Appearance: well nourished Orientation/consciousness: patient oriented x3 HENMT: Head: Yes normocephalic and Yes atraumatic Eyes: Sclerae: sclerae normal Chest: Chest palpation & inspection: normal inspection of the chest Resp: Effort & Inspection: normal respiratory effort and no respiratory distress Cardio: Rate: regular rate Rhythm: regular rhythm GI: Palpation (GI): Soft to palpation and nontender Neuro: General: patient oriented x3 Cranial nerves: Yes CN's II-XII intact bilaterally and Yes Bilaterally intact EOM present Extrem: General: Yes normal to inspection DS: Data Data Completed and Pending Labs on day of discharge: Laboratory Results - last 24 hr 02/04/21 02/04/21 02/04/21 08:10 11:01 16:32 Sodium 141 Potassium 4.4 Chloride 108 Carbon Dioxide 22 Anion Gap 15 BUN 42 H Creatinine 3.01 H Estim Creat Clear Calc 33.4 Estimated GFR 21 POC Glucose 88 107 Random Glucose 72 Calcium 8.3 L Total Creatine Kinase 454 H 02/04/21 02/05/21 20:21 07:00 Sodium Potassium Chloride Carbon Dioxide Anion Gap BUN Creatinine Estim Creat Clear Calc Estimated GFR POC Glucose 146 H 114 Random Glucose Calcium Total Creatine Kinase Discharge Plan Discharge Patient Disposition: Home, Self-Care Referrals: Nuvia Crook NP [Primary Care Provider] - Eliecer Graham [Physician] - Discharge Medications: Continued (DME) pen needle, diabetic [BD Silvia 2nd Gen Pen Needle] 32 gauge x 5/32 needle See Rx Instructions .ROUTE .MEDSUPPLY Qty: 150 RF: 6 (DME) lancets [TRUEplus Lancets] 33 gauge misc See Rx Instructions .ROUTE .MEDSUPPLY Qty: 100 RF: 11 lisinopril 40 mg tablet 40 mg PO QAM Qty: 30 RF: 6 nifedipine 30 mg tablet extended release 120 mg PO DAILY Qty: 120 RF: 5 atorvastatin 80 mg Tablet 80 mg PO DAILY RF: 0 sertraline 100 mg Tablet 200 mg PO DAILY RF: 0 aspirin [Aspir-81] 81 mg Tablet,Delayed Release (Dr/Ec) 81 mg PO DAILY RF: 0 fenofibrate nanocrystallized 145 mg Tablet 145 mg PO DAILY RF: 0 gabapentin 600 mg Tablet 600 mg PO TID RF: 0 torsemide 20 mg Tablet 20 mg PO DAILY RF: 0 oxcarbazepine 300 mg Tablet 300 mg PO BID RF: 0 spironolactone 25 mg Tablet 50 mg PO DAILY RF: 0 perphenazine 4 mg Tablet 4 mg PO BID RF: 0 cholecalciferol (vitamin D3) [Vitamin D3] 25 mcg (1,000 unit) Capsule 50 mcg PO DAILY RF: 0 carvedilol 25 mg Tablet 25 mg PO BID RF: 0 acetaminophen [Tylenol Extra Strength] 500 mg tablet 500 mg PO Q6H PRN (Reason: pain or fever) Qty: 20 RF: 0 tramadol 50 mg tablet 2 tab PO Q8H PRN (Reason: Pain) RF: 0 zolpidem 10 mg tablet 1 tab PO BEDTIME RF: 0 Flovent HFA 110 mcg/actuation HFA aerosol inhaler 4 puff inhalation BID RF: 0 insulin aspart U-100 [Novolog Flexpen U-100 Insulin] 100 unit/mL (3 mL) insulin pen See Rx Instructions .ROUTE .COMPLEX RF: 0 Toujeo Max U-300 SoloStar 300 unit/mL (3 mL) insulin pen 60 unit subcut DAILY RF: 0 Activity on Discharge: As tolerated Stand Alone Forms: Patient Portal Discharge page Care Plan Goals: See Below Health Concerns: [place] blood pressure Abdominal pain/pancreatitis Plan of Treatment: Abdominal pain/pancreatitis. Call GI to schedule an appointment High blood pressure - continue to take all of your blood pressure medication as prescribed. Call your PCP to make a follow up appointment to check your blood pressure. Assessment: See discharge summary
[2021-02-05] MEDS: lisinopriL 40 MG TABLET PO (09:40)
[2021-02-05] MEDS: Torsemide 20 MG TABLET PO (09:40)
[2021-02-05] MEDS: OXcarbazepine 300 MG TABLET PO ×2 (09:40→20:36)
[2021-02-05] MEDS: Sertraline HCL 100 MG TABLET 200 MG PO (09:41)
[2021-02-05] MEDS: Aspirin Enteric Coated 81 MG TABLET.DR PO (09:44)
[2021-02-05] MEDS: Gabapentin 600 MG TABLET PO ×3 (09:44→20:36)
[2021-02-05] MEDS: Perphenazine 4 MG TABLET PO ×2 (09:44→20:36)
[2021-02-05] MEDS: Cholecalciferol (Vitamin D3) 25 MCG TABLET PO (09:44)
[2021-02-05] MEDS: Fenofibrate 160 MG TABLET PO (09:44)
[2021-02-05] MEDS: Spironolactone 25 MG TABLET 50 MG PO (09:45)
[2021-02-05] MEDS: traMADoL HCL 50 MG TABLET 100 MG PO (09:49)
[2021-02-05] MEDS: Insulin Lispro 100 UNIT/ML 3 ML VIAL SUBCUT ×2 (11:57→20:36)
--- NOTE | 2021-02-05 12:12 | HO.PM.IMPN ---
Subjective Subjective Date of Service: 02/05/21 <CORNELIO Villatoro - Last Filed: 02/05/21 12:21> 02/05/21 <Brenton Dial MD - Last Filed: 02/05/21 14:55> Interval History: abdominal pain improving. No vomiting. tolerating full diabetic diet blood pressure uncontrolled no chest pain, sob, vision changes <CORNELIO Villatoro - Last Filed: 02/05/21 12:21> Review of Systems Review of Systems: Yes all other systems are reviewed and are negative <CORNELIO Villatoro - Last Filed: 02/05/21 12:21> Constitutional Constitutional: Denies chills and Denies fever(s) <CORNELIO Villatoro - Last Filed: 02/05/21 12:21> Cardiovascular Cardiovascular: Denies chest pain <CORNELIO Villatoro - Last Filed: 02/05/21 12:21> Respiratory Respiratory: Denies cough <CORNELIO Villatoro - Last Filed: 02/05/21 12:21> Gastrointestinal Gastrointestinal: Denies abdominal pain <CORNELIO Villatoro - Last Filed: 02/05/21 12:21> Physical Exam Vital Signs: Vital Signs: Last Vital Signs Temp 98.1 F 02/05/21 11:30 Pulse 52 02/05/21 11:30 Resp 16 02/05/21 11:30 BP 202/78 H 02/05/21 11:30 Pulse Ox 97 02/05/21 11:30 Body Mass Index 34.8 <CORNELIO Villatoro - Last Filed: 02/05/21 12:21> Const: General: alert and awake <CORNELIO Villatoro - Last Filed: 02/05/21 12:21> Nutritional Appearance: well nourished <CORNELIO Villatoro - Last Filed: 02/05/21 12:21> Orientation/consciousness: patient oriented x3 <CORNELIO Villatoro - Last Filed: 02/05/21 12:21> HENMT: Head: Yes normocephalic and Yes atraumatic <CORNELIO Villatoro - Last Filed: 02/05/21 12:21> Eyes: Sclerae: sclerae normal <CORNELIO Villatoro Last Filed: 02/05/21 12:21> Chest: Chest palpation & inspection: normal inspection of the chest <CORNELIO Villatoro Last Filed: 02/05/21 12:21> Resp: Effort & Inspection: normal respiratory effort and no respiratory distress <CORNELIO Villatoro Last Filed: 02/05/21 12:21> Cardio: Rate: bradycardic <CORNELIO Villatoro Last Filed: 02/05/21 12:21> Rhythm: regular rhythm <CORNELIO Villatoro Last Filed: 02/05/21 12:21> GI: Palpation (GI): Soft to palpation and nontender <CORNELIO Villatoro Last Filed: 02/05/21 12:21> Neuro: General: patient oriented x3 <CORNELIO Villatoro Last Filed: 02/05/21 12:21> Cranial nerves: Yes CN's II-XII intact bilaterally and Yes Bilaterally intact EOM present <CORNELIO Villatoro Last Filed: 02/05/21 12:21> Extrem: General: Yes normal to inspection <CORNELIO Villatoro Last Filed: 02/05/21 12:21> Objective Data Current Medications Generic Name Dose Route Start Last Admin Trade Name Freq PRN Reason Stop Dose Admin Acetaminophen 650 mg 02/03/21 16:34 Acetaminophen 325 Mg Tablet PO Q6H PRN Pain, Mild (Pain Scale 1-3) Al Hydroxide/Mg Hydroxide 30 ml 02/03/21 16:34 Magnesium Hydrox/Alum Hydrox 30 Ml Oral.Susp PO Q4H PRN Heartburn/Nausea Aspirin 81 mg 02/03/21 12:02 02/05/21 09:44 Aspirin Enteric Coated 81 Mg Tablet.Dr PO 81 mg DAILY [facility]AO Administration Atorvastatin Calcium 80 mg 02/03/21 21:00 02/03/21 20:26 Atorvastatin Calcium 80 Mg Tablet PO 80 mg BEDTIME [facility]AO Administration Carvedilol 25 mg 02/03/21 12:02 02/05/21 09:44 Carvedilol 25 Mg Tablet PO Not Given BID [facility] Protocol Docusate Sodium 100 mg 02/03/21 12:02 Docusate Sodium 100 Mg Capsule PO DAILY PRN Constipation Fenofibrate 160 mg 02/04/21 09:00 02/05/21 09:44 Fenofibrate 160 Mg Tablet PO 160 mg DAILY [facility] Administration Fluticasone Propionate 4 puff 02/03/21 20:00 02/05/21 08:11 Fluticasone Propionate 100 Mcg Blst.W.Dev INHALE Not Given RBID [facility] Gabapentin 600 mg 02/03/21 15:00 02/05/21 09:44 Gabapentin 600 Mg Tablet PO 600 mg TID [facility] Administration Heparin Sodium (Porcine) 5,000 unit 02/03/21 12:30 02/05/21 05:57 Heparin Sodium,Porcine 5,000 Unit/Ml Vial SUBCUT 5,000 unit Q8H [facility] Administration Hydralazine HCl 50 mg 02/05/21 15:00 Hydralazine Hcl 50 Mg Tablet PO TID [facility] Protocol Hydromorphone HCl 0.5 mg 02/03/21 05:58 02/04/21 06:04 Hydromorphone Hcl 0.5 Mg/0.5 Ml Syringe IVPUSH 0.5 mg Q4H PRN Administration Pain, Severe (Pain Scale 7-10) Insulin Human Lispro 0 unit 02/03/21 16:34 02/05/21 11:57 Insulin Lispro 100 Unit/Ml 3 Ml Vial SUBCUT 2 unit QIDACHS [facility] Administration Protocol Lisinopril 40 mg 02/04/21 13:00 02/05/21 09:40 Lisinopril 40 Mg Tablet PO 40 mg DAILY [facility] Administration Protocol Nifedipine 120 mg 02/03/21 21:00 02/04/21 21:40 Nifedipine Er 60 Mg Tab.Er.24 PO Not Given BEDTIME [facility] Ondansetron HCl 4 mg 02/03/21 16:34 Ondansetron Hcl 4 Mg/2 Ml Vial IVPUSH Q8H PRN Nausea and Vomiting Oxcarbazepine 300 mg 02/03/21 12:02 02/05/21 09:40 Oxcarbazepine 300 Mg Tablet PO 300 mg BID [facility] Administration Oxycodone HCl 5 mg 02/04/21 21:12 02/05/21 05:57 Oxycodone Hcl Immed Release 5 Mg Tablet PO 5 mg Q6H PRN Administration Pain, Severe (Pain Scale 7-10) Perphenazine 4 mg 02/03/21 12:02 02/05/21 09:44 Perphenazine 4 Mg Tablet PO 4 mg BID [facility] Administration Pharmacy Consult 1 each 02/02/21 23:51 Consult Rx Perform Med Rec MISCELLANE ONCE PRN Consult order Sertraline HCl 200 mg 02/04/21 09:00 02/05/21 09:41 Sertraline Hcl 100 Mg Tablet PO 200 mg DAILY [facility] Administration Sodium Chloride 3 ml 02/03/21 16:34 02/05/21 09:44 0.9 % Sodium Chloride Flush 3 Ml Syringe IVFLUSH 3 ml QSHIFT [facility] Administration Spironolactone 50 mg 02/04/21 12:30 02/05/21 09:45 Spironolactone 25 Mg Tablet PO 50 mg DAILY [facility] Administration Protocol Torsemide 20 mg 02/03/21 16:34 02/05/21 09:40 Torsemide 20 Mg Tablet PO 20 mg DAILY [facility] Administration Protocol Tramadol HCl 100 mg 02/03/21 12:02 02/05/21 09:49 Tramadol Hcl 50 Mg Tablet PO 100 mg Q8H PRN Administration Pain Vitamin D 25 mcg 02/03/21 12:02 02/05/21 09:44 Cholecalciferol (Vitamin D3) 25 Mcg Tablet PO 25 mcg DAILY [facility] Administration Zolpidem Tartrate 10 mg 02/03/21 21:00 02/04/21 21:39 Zolpidem Tartrate 5 Mg Tablet PO 10 mg BEDTIME [facility] Administration <CORNELIO Villatoro - Last Filed: 02/05/21 12:21> Labs CBC & Chem 7: : 02/04/21 08:10 02/04/21 08:10 <CORNELIO Villatoro - Last Filed: 02/05/21 12:21> Assessment and Plan (1) Pancreatitis: Status: Acute <CORNELIO Villatoro - Last Filed: 02/05/21 12:21> (2) Hypertension: Status: Acute <CORNELIO Villatoro - Last Filed: 02/05/21 12:21> (3) Type 2 diabetes mellitus with chronic kidney disease: Status: Acute <CORNELIO Villatoro Last Filed: 02/05/21 12:21> (4) Hypertriglyceridemia: Status: Acute <CORNELIO Villatoro - Last Filed: 02/05/21 12:21> Assessment and Plan: This is a 60-year-old male with a history of hypertension, hyperlipidemia, diabetes admission for pancreatitis who presented to the emergency department with abdominal pain found to have uncontrolled hypertension and readmitted for pancreatitis Abdominal pain Initially thought to be r/t pancreatitis. Recently admitted for the same. CT unchanged. Lipase normal. Patient denies alcohol use. No gallstones seen on previous ultrasound. -tolerating full diet. abdominal pain improving -continue pain management -GI consult given recurrent admission/unclear reason for possible pancreatitis Hypertension, uncontrolled Asymptomatic Suspect due to noncompliance with his antihypertensives along with pain from pancreatitis -continue nifedipine, coreg, torsemide, lisinopril, spironolactone -BP continues to be elevated. Will add hydralazine -nephrology consult DM on Clear liquids. POC wnr -home insulin on hold -SSI, POCs HLD -continue lofibra -hold statin, mild elevation in cpk mood continue sertraline, Trileptal, perphenazine asthma no acute exacerbation -continue home inhalers CKD3/4 SCr at baseline -Follow BMP Chronic diastolic CHF -continue torsemide, Aldactone jenni - CPAP dvt ppx - heparin code status - full code Attending: Dr. Dial <CORNELIO Villatoro - Last Filed: 02/05/21 12:21>
[2021-02-05 12:22] LABS: Glucose, Whole Blood 161 mg/dL (60-115)
--- NOTE | 2021-02-05 14:32 | PC.NURSE ---
for morning meds pt BP 200/80 Hr 53. Asymptomatic at this time Mult BP meds due- discussed with [employer] - told to hold Coreg- administered others. Will cont to monitor BP. Educated pt on meds
[2021-02-05] MEDS: hydrALAZINE HCl 50 MG TABLET PO ×2 (15:58→20:40)
[2021-02-05] MEDS: Acetaminophen 325 MG TABLET 650 MG PO (15:58)
--- NOTE | 2021-02-05 16:00 | PC.NURSE ---
pt currently has on IV access- pt very hard sticks, multp tried even w/vein finder and mult RN no success at access yesterday. RN told pt for the upper end tomorrow would need access -and needs an IV - pt currently refusing wont allow us to try an Iv says tomorrow, you can try tomorrow . Very adamant about no one trying today even with educating on importance on IV access. Will report off to oncoming RN and continue to educate pt on access importance while inpatient.
[2021-02-05 16:33] LABS: Glucose, Whole Blood 139 mg/dL (60-115)
[2021-02-05] MEDS: Fluticasone Propionate 100 MCG BLST.W.DEV 4 PUFF INHALE (20:05)
[2021-02-05 20:26] LABS: Glucose, Whole Blood 171 mg/dL (60-115)
[2021-02-05] MEDS: Zolpidem Tartrate 5 MG TABLET 10 MG PO (20:37)
[2021-02-05] MEDS: NIFEdipine ER 60 MG TAB.ER.24 120 MG PO (20:41)
[2021-02-06] VITALS (16 sets, daily range): BP systolic 146–176; BP diastolic 60–78; PULSE 59–96; RESP 16–20; TEMP 36.1–37.1; O2SAT 92–98; BMI 34.8
[2021-02-06 08:00] LABS: Glucose, Whole Blood 128 mg/dL (60-115)
[2021-02-06 08:02] LABS: Estimated Average Glucose 146 mg/dL; Hemoglobin A1c % 6.7 %
[2021-02-06] MEDS: Fluticasone Propionate 100 MCG BLST.W.DEV 4 PUFF INHALE ×2 (08:28→20:16)
--- NOTE | 2021-02-06 09:52 | HO.PM.IMPN ---
Subjective Subjective Date of Service: 02/06/21 Interval History: Follow up abdominal pain, pancreatitis. No abdominal pain at this time, appetite good Physical Exam Vital Signs: Vital Signs: Last Vital Signs Temp 97.1 F 02/06/21 07:33 Pulse 86 02/06/21 08:30 Resp 18 02/06/21 07:33 BP 176/75 H 02/06/21 07:33 Pulse Ox 93 02/06/21 07:33 Body Mass Index 34.8 Appearing in no acute distress lung sounds are clear to auscultation heart regular rate rhythm, clear S1, S2 positive bowel sounds, abdomen is soft, nontender neuro patient is alert x3, no focal deficits Objective Data Current Medications Generic Name Dose Route Start Last Admin Trade Name Freq PRN Reason Stop Dose Admin Acetaminophen 650 mg 02/03/21 16:34 02/05/21 15:58 Acetaminophen 325 Mg Tablet PO 650 mg Q6H PRN Administration Pain, Mild (Pain Scale 1-3) Al Hydroxide/Mg Hydroxide 30 ml 02/03/21 16:34 Magnesium Hydrox/Alum Hydrox 30 Ml Oral.Susp PO Q4H PRN Heartburn/Nausea Aspirin 81 mg 02/03/21 12:02 02/05/21 09:44 Aspirin Enteric Coated 81 Mg Tablet.Dr PO 81 mg DAILY [facility] Administration Atorvastatin Calcium 80 mg 02/03/21 21:00 02/03/21 20:26 Atorvastatin Calcium 80 Mg Tablet PO 80 mg BEDTIME [facility] Administration Carvedilol 25 mg 02/03/21 12:02 02/05/21 20:42 Carvedilol 25 Mg Tablet PO Not Given BID [facility] Protocol Docusate Sodium 100 mg 02/03/21 12:02 Docusate Sodium 100 Mg Capsule PO DAILY PRN Constipation Fenofibrate 160 mg 02/04/21 09:00 02/05/21 09:44 Fenofibrate 160 Mg Tablet PO 160 mg DAILY [facility] Administration Fluticasone Propionate 4 puff 02/03/21 20:00 02/06/21 08:28 Fluticasone Propionate 100 Mcg Blst.W.Dev INHALE 4 puff RBID [facility] Administration Gabapentin 600 mg 02/03/21 15:00 02/05/21 20:36 Gabapentin 600 Mg Tablet PO 600 mg TID [facility] Administration Heparin Sodium (Porcine) 5,000 unit 02/03/21 12:30 02/06/21 04:12 Heparin Sodium,Porcine 5,000 Unit/Ml Vial SUBCUT Not Given Q8H [facility] Hydralazine HCl 50 mg 02/05/21 15:00 02/05/21 20:40 Hydralazine Hcl 50 Mg Tablet PO 50 mg TID [facility] Administration Protocol Hydromorphone HCl 0.5 mg 02/03/21 05:58 02/04/21 06:04 Hydromorphone Hcl 0.5 Mg/0.5 Ml Syringe IVPUSH 0.5 mg Q4H PRN Administration Pain, Severe (Pain Scale 7-10) Insulin Human Lispro 0 unit 02/03/21 16:34 02/06/21 08:06 Insulin Lispro 100 Unit/Ml 3 Ml Vial SUBCUT Not Given QIDACHS [facility] Protocol Lisinopril 40 mg 02/04/21 13:00 02/05/21 09:40 Lisinopril 40 Mg Tablet PO 40 mg DAILY [facility] Administration Protocol Nifedipine 120 mg 02/03/21 21:00 02/05/21 20:41 Nifedipine Er 60 Mg Tab.Er.24 PO 120 mg BEDTIME [facility] Administration Ondansetron HCl 4 mg 02/03/21 16:34 Ondansetron Hcl 4 Mg/2 Ml Vial IVPUSH Q8H PRN Nausea and Vomiting Oxcarbazepine 300 mg 02/03/21 12:02 02/05/21 20:36 Oxcarbazepine 300 Mg Tablet PO 300 mg BID [facility] Administration Oxycodone HCl 5 mg 02/04/21 21:12 02/05/21 05:57 Oxycodone Hcl Immed Release 5 Mg Tablet PO 5 mg Q6H PRN Administration Pain, Severe (Pain Scale 7-10) Perphenazine 4 mg 02/03/21 12:02 02/05/21 20:36 Perphenazine 4 Mg Tablet PO 4 mg BID [facility] Administration Pharmacy Consult 1 each 02/02/21 23:51 Consult Rx Perform Med Rec MISCELLANE ONCE PRN Consult order Sertraline HCl 200 mg 02/04/21 09:00 02/05/21 09:41 Sertraline Hcl 100 Mg Tablet PO 200 mg DAILY [facility] Administration Sodium Chloride 3 ml 02/03/21 16:34 02/05/21 20:47 0.9 % Sodium Chloride Flush 3 Ml Syringe IVFLUSH Not Given QSHIFT [facility] Spironolactone 50 mg 02/04/21 12:30 02/05/21 09:45 Spironolactone 25 Mg Tablet PO 50 mg DAILY [facility] Administration Protocol Torsemide 60 mg 02/07/21 09:00 Torsemide 20 Mg Tablet PO DAILY [facility] Protocol Tramadol HCl 100 mg 02/03/21 12:02 02/05/21 09:49 Tramadol Hcl 50 Mg Tablet PO 100 mg Q8H PRN Administration Pain Vitamin D 25 mcg 02/03/21 12:02 02/05/21 09:44 Cholecalciferol (Vitamin D3) 25 Mcg Tablet PO 25 mcg DAILY [facility] Administration Zolpidem Tartrate 10 mg 02/03/21 21:00 02/05/21 20:37 Zolpidem Tartrate 5 Mg Tablet PO 10 mg BEDTIME [facility] Administration Labs CBC & Chem 7: 02/04/21 08:10 02/04/21 08:10 Assessment and Plan (1) Abdominal pain: Status: Acute Assessment and Plan: This is a 60-year-old male with a history of hypertension, hyperlipidemia, diabetes admission for pancreatitis who presented to the emergency department with abdominal pain found to have uncontrolled hypertension and readmitted for pancreatitis Abdominal pain secondary to duodenal ulcer. Initially thought to be r/t pancreatitis. Recently admitted for the same. CT unchanged. Lipase normal. Patient denies alcohol use. No gallstones seen on previous ultrasound. Seen and evaluated by GI. -EGD showed Ulcer, duodenitis, atrophic gastritis and esophagitis. -Start PPI 40 mg daily -H pylori pending -continue pain management Hypertension, uncontrolled. Asymptomatic. Suspect due to noncompliance with his antihypertensives along with pain from pancreatitis. Seen and evaluated by nephrology -Torsemide increased to 60mg. -continue nifedipine, coreg, lisinopril, spironolactone -BP continues to be elevated. Will add hydralazine Diabetes -SSI, POCs HLD -continue lofibra -hold statin, mild elevation in cpk Depression -continue sertraline, Trileptal, perphenazine Asthma. 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 Delgado
[2021-02-06] MEDS: carvediloL 25 MG TABLET PO ×2 (10:16→21:27)
[2021-02-06] MEDS: hydrALAZINE HCl 50 MG TABLET PO ×3 (10:17→21:27)
[2021-02-06 10:52] LABS: Glucose, Whole Blood 138 mg/dL (60-115)
--- NOTE | 2021-02-06 11:23 | MHC.CM.PN ---
EMR REVIEWED, PT SCHEDULED FOR EGD TODAY & POSSIBLE MRI IF NOTHING IDENTIFIED ON EGD, CM WILL CONT TO FOLLOW FOR D/C NEEDS.
--- NOTE | 2021-02-06 12:04 | PM.CNNEP ---
History of Present Illness Reason for Consult Consult date: 02/06/21 Reason for consult: CKD 4 Chief Complaint Chief complaint: ACUTE PANCREATITIS History of Present Illness Narrative: Ask to see PT r: adv CKD\ Well known to me with CKD 4 with prior Bx c/w MGRS and some DM/HTN changes. Now adm with abds pain and acutre panceratitis and severe HTN Overall doing better now with decr abd kang. BP remaions very elevated Review of Systems Review of Systems Yes all other systems are reviewed and are negative Constitutional: Reports no additional constitutional complaints, Denies body ache(s), Denies chills, Denies fever(s), Denies headache(s) and Denies weakness Eyes: Reports no additional eye complaints and Denies change in vision Reports system reviewed and no additional complaints, except as documented, Denies dizziness, Denies headache(s), Denies nasal congestion, Denies nasal discharge and Denies neck pain Cardiovascular: Reports no additional cardiovascular complaints, Denies chest pain, Denies leg edema and Denies dyspnea Respiratory: Reports no additional respiratory complaints, Denies cough and Denies dyspnea Gastrointestinal: Reports no additional gastrointestinal complaints, Denies abdominal pain, Denies diarrhea, Denies nausea and Denies vomiting Genitourinary: Denies urinary incontinence Musculoskeletal: Reports no additional musculoskeletal complaints, Denies back pain, Denies arthralgias, Denies joint swelling, Denies neck pain, Denies numbness and Denies tingling Skin/Breast: Reports system reviewed and no additional complaints, except as docu and Denies rash Reports system reviewed and no additional complaints, except as documented, Denies Abnormal speech present, Denies dizziness, Denies headache(s), Denies numbness, Denies tingling and Denies weakness [facility] Past Medical History Medical History (Updated 02/07/21 @ 09:48 by Lashay Frost NP) Abnormal biopsy of kidney Anxiety Asthma CHF (congestive heart failure) Chronic kidney disease (CKD) Chronic kidney disease, stage 4 (severe) COPD (chronic obstructive pulmonary disease) Depression Depression with anxiety Diabetes mellitus with hyperglycemia, with long-term current use of insulin Diverticulitis Elevated cholesterol Erectile dysfunction History of alcohol abuse History of headache HTN (hypertension) Hx of pancreatitis Hypertension Hypertensive crisis Hypertriglyceridemia On beta doron at home Pancreatitis Peptic ulcer Proteinuria Sleep apnea Type 2 diabetes mellitus with chronic kidney disease Type 2 diabetes mellitus with hyperglycemia, with long-term current use of insulin Type 2 diabetes mellitus with polyneuropathy Functional capacity: independent ambulation Family History Family History Mother Diabetes Family history: reviewed and not pertinent Surgical History Surgical History Hx of colonoscopy Hx of right inguinal hernia repair Social History Social History Household Members: None Housing: Apartment Do you presently have visiting nurse or other home services: No Alcohol intake: former Smoking Status: Current every day smoker Tobacco Type: Cigarette Cigarettes Per Day: 4 Years Smoked: 30 Smoked in Last 30 Days: Yes Patient Interested in Nicotine Replacement: No Second Hand Smoke Exposure: Yes Use of substances other than those prescribed or required for medical reasons: No Currently Displaying Signs/Symptoms of Drug Intoxication Withdrawal: No Have you been hit, kicked, punched, or otherwise hurt by someone within the past year? If so, by whom?: No Do you feel safe in your current relationship?: Yes Is there a partner from a previous relationship who is making you feel unsafe now?: No Are you made to feel afraid or neglected: No Advance Directives: No Do you have thoughts of harming others: None Do you have a plan to hurt others: No Plan Recently lost weight without trying: No service: No Current occupational status: retired [employer] Allergies Allergy/AdvReac Type Severity Reaction Status Date / Time No Known Allergies Allergy Verified 01/22/21 19:16 Active Medications: Current Medications Generic Name Dose Route Start Last Admin Trade Name Pawelq PRN Reason Stop Dose Admin Acetaminophen 650 mg 02/03/21 16:34 02/05/21 15:58 Acetaminophen 325 Mg Tablet PO 650 mg Q6H PRN Administration Pain, Mild (Pain Scale 1-3) Al Hydroxide/Mg Hydroxide 30 ml 02/03/21 16:34 Magnesium Hydrox/Alum Hydrox 30 Ml Oral.Susp PO Q4H PRN Heartburn/Nausea Aspirin 81 mg 02/03/21 12:02 02/06/21 10:23 Aspirin Enteric Coated 81 Mg Tablet. PO Not Given DAILY [facility] Atorvastatin Calcium 80 mg 02/03/21 21:00 02/03/21 20:26 Atorvastatin Calcium 80 Mg Tablet PO 80 mg BEDTIME [facility]AO Administration Carvedilol 25 mg 02/03/21 12:02 02/06/21 10:16 Carvedilol 25 Mg Tablet PO 25 mg BID [facility] Administration Protocol Docusate Sodium 100 mg 02/03/21 12:02 Docusate Sodium 100 Mg Capsule PO DAILY PRN Constipation Fenofibrate 160 mg 02/04/21 09:00 02/06/21 10:23 Fenofibrate 160 Mg Tablet PO Not Given DAILY [facility] Fluticasone Propionate 4 puff 02/03/21 20:00 02/06/21 08:28 Fluticasone Propionate 100 Mcg Blst.W.Dev INHALE 4 puff RBID [facility] Administration Gabapentin 600 mg 02/03/21 15:00 02/06/21 10:23 Gabapentin 600 Mg Tablet PO Not Given TID [facility] Heparin Sodium (Porcine) 5,000 unit 02/03/21 12:30 02/06/21 04:12 Heparin Sodium,Porcine 5,000 Unit/Ml Vial SUBCUT Not Given Q8H [facility] Hydralazine HCl 50 mg 02/05/21 15:00 02/06/21 10:17 Hydralazine Hcl 50 Mg Tablet PO 50 mg TID [facility] Administration Protocol Hydromorphone HCl 0.5 mg 02/03/21 05:58 02/04/21 06:04 Hydromorphone Hcl 0.5 Mg/0.5 Ml Syringe IVPUSH 0.5 mg Q4H PRN Administration Pain, Severe (Pain Scale 7-10) Insulin Human Lispro 0 unit 02/03/21 16:34 02/06/21 08:06 Insulin Lispro 100 Unit/Ml 3 Ml Vial SUBCUT Not Given QIDACHS [facility] Protocol Lisinopril 40 mg 02/04/21 13:00 02/06/21 10:23 Lisinopril 40 Mg Tablet PO Not Given DAILY [facility] Protocol Nifedipine 120 mg 02/03/21 21:00 02/05/21 20:41 Nifedipine Er 60 Mg Tab.Er.24 PO 120 mg BEDTIME [facility] Administration Ondansetron HCl 4 mg 02/03/21 16:34 Ondansetron Hcl 4 Mg/2 Ml Vial IVPUSH Q8H PRN Nausea and Vomiting Oxcarbazepine 300 mg 02/03/21 12:02 02/06/21 10:23 Oxcarbazepine 300 Mg Tablet PO Not Given BID [facility] Oxycodone HCl 5 mg 02/04/21 21:12 02/05/21 05:57 Oxycodone Hcl Immed Release 5 Mg Tablet PO 5 mg Q6H PRN Administration Pain, Severe (Pain Scale 7-10) Perphenazine 4 mg 02/03/21 12:02 02/06/21 10:23 Perphenazine 4 Mg Tablet PO Not Given BID [facility] Pharmacy Consult 1 each 02/02/21 23:51 Consult Rx Perform Med Rec MISCELLANE ONCE PRN Consult order Sertraline HCl 200 mg 02/04/21 09:00 02/06/21 10:24 Sertraline Hcl 100 Mg Tablet PO Not Given DAILY [facility] Sodium Chloride 3 ml 02/03/21 16:34 02/06/21 10:24 0.9 % Sodium Chloride Flush 3 Ml Syringe IVFLUSH Not Given QSNCFT [facility] Spironolactone 50 mg 02/04/21 12:30 02/06/21 10:24 Spironolactone 25 Mg Tablet PO Not Given DAILY [facility] Protocol Torsemide 60 mg 02/07/21 09:00 Torsemide 20 Mg Tablet PO DAILY [facility] Protocol Tramadol HCl 100 mg 02/03/21 12:02 02/05/21 09:49 Tramadol Hcl 50 Mg Tablet PO 100 mg Q8H PRN Administration Pain Vitamin D 25 mcg 02/03/21 12:02 02/06/21 10:23 Cholecalciferol (Vitamin D3) 25 Mcg Tablet PO Not Given DAILY [facility] Zolpidem Tartrate 10 mg 02/03/21 21:00 02/05/21 20:37 Zolpidem Tartrate 5 Mg Tablet PO 10 mg BEDTIME [facility] Administration Home Medications Medication Instructions Recorded Confirmed Last Taken Type aspirin [Aspir-81] 81 mg PO DAILY 07/25/20 02/03/21 02/02/21 History atorvastatin 80 mg PO DAILY 07/25/20 02/03/21 02/02/21 History carvedilol 25 mg PO BID 07/25/20 02/03/21 02/02/21 History cholecalciferol (vitamin D3) 50 mcg PO DAILY 07/25/20 02/03/21 02/02/21 History [Vitamin D3] fenofibrate nanocrystallized 145 mg PO DAILY 07/25/20 02/03/21 02/02/21 History gabapentin 600 mg PO TID 07/25/20 02/03/21 02/02/21 History oxcarbazepine 300 mg PO BID 07/25/20 02/03/21 02/02/21 History perphenazine 4 mg PO BID 07/25/20 02/03/21 02/02/21 History sertraline 200 mg PO DAILY 07/25/20 02/03/21 02/02/21 History spironolactone 50 mg PO DAILY 07/25/20 02/03/21 02/02/21 History Flovent HFA 4 puff INHALATION BID 01/23/21 02/03/21 02/02/21 History Toujeo Max U-300 SoloStar 60 unit SUBCUT DAILY 01/23/21 02/03/21 02/02/21 History insulin aspart U-100 [Novolog See Rx Instructions .ROUTE .COMPLEX 01/23/21 02/03/21 02/02/21 History Flexpen U-100 Insulin] tramadol 2 tab PO Q8H PRN 01/23/21 02/03/21 02/02/21 History zolpidem 1 tab PO BEDTIME 01/23/21 02/03/21 02/02/21 History Physical Exam Vital Signs: Last Vital Signs Temp 97.1 F 02/06/21 07:33 Pulse 86 02/06/21 10:16 Resp 18 02/06/21 07:33 BP 176/75 H 02/06/21 10:16 Pulse Ox 93 02/06/21 07:33 Body Mass Index 34.8 Const General: cooperative, healthy appearing, comfortable, no acute distress, alert and awake Nutritional Appearance: well nourished and obese (BMI-34.9) Orientation/consciousness: patient oriented x3 Limitations: no limitations [facility] Head: Yes normal to inspection, Yes normocephalic and Yes atraumatic Ears: hearing grossly normal bilaterally General nose exam: Normal external nose present Face and sinus: Yes normal facial exam Mouth: Normal oral and palatal mucosa present Throat: Yes posterior oropharynx normal Eyes General: appearance normal, both eyes and all related structures Sclerae: sclerae normal Pupils: Equal, round and reactive pupils present Neck Neck: Yes normal visual inspection and Yes supple Chest Chest palpation & inspection: normal inspection of the chest Resp Effort & Inspection: normal respiratory effort, able to speak in complete sentences and no respiratory distress Auscultation: clear to auscultation bilaterally Cardio Jugular venous distension: no JVD Rate: regular rate and bradycardic Rhythm: regular rhythm Heart sounds: S1 normal heart sound present and S2 normal heart sound present Peripheral pulses: Peripheral pulses 2+ throughout GI Inspection: Yes normal to inspection Palpation (GI): Soft to palpation, nontender, no guarding and no masses Auscultation: normal bowel sounds Back/Spine/Pelvis Thoracic/Lumbar Spine: thoracic and lumbar spine normal to inspection Skin General skin exam: no rashes or lesions noted Neuro General: patient oriented x3, no focal motor deficits and normal sensation to monofilament Cranial nerves: Yes CN's II-XII intact bilaterally, Yes Equal, round and reactive pupils present and Yes Bilaterally intact EOM present Cognition (Neuro): normal cognition Speech: No Abnormal speech present Gait exam (Neuro): Normal gait present Motor exam (neuro): 5/5 motor strength present throughout and Other motor observations present ( no motor deficit) Extrem General: Yes normal to inspection, Yes no clubbing, cyanosis or edema, Yes no pedal edema and Yes no calf tenderness Results Lab Results Result Diagrams: 02/04/21 08:10 02/07/21 11:29 Lab results: Chemistry 02/04/21 02/04/21 07:20 08:10 Sodium 142 141 Potassium 4.3 4.4 Carbon Dioxide 25 22 BUN 42 H 42 H Creatinine 2.98 H 3.01 H Calcium 8.1 L 8.3 L Hematology 02/04/21 02/04/21 07:20 08:10 WBC 8.2 8.7 Hgb 11.5 L 11.9 L Plt Count 162 150 L Assessment and Plan (1) Abdominal pain: Status: Acute (2) Duodenal ulcer: Status: Acute (3) Pancreatitis: Status: Acute (4) Hypertensive crisis: Status: Inactive (5) Diabetes mellitus with hyperglycemia, with long-term current use of insulin: Status: Acute (6) Hypertriglyceridemia: Status: Acute This is a 60-year-old male with a history of hypertension, hyperlipidemia, diabetes, MGRS admission for pancreatitis who presented to the emergency department with abdominal pain found to have uncontrolled hypertension and readmitted for pancreatitis 1. CKD 4: c/w MGRS and DN/HTN renal dis and decsion was not to treat with IS for MGRS based on his second opinion at [facility] ( Dr Saleh) 2. Severe HTN: suspect hypervol playin a role 3. Abd pain: acute pancreatitis 4. TBFOL: needs incr diouretics for edema and BP control 5. DM REC: incr diuretics..torsemid 60 qd and iv lasxi 60 x today( 02/06/21); will follow re BP; recheck renal lbas and repeat SIEP and free light chains
--- NOTE | 2021-02-06 12:34 | MHC.SHP ---
Pre-Procedural Eval Section A The patient is an INPATIENT: Yes The History & Physical has been completed within 30 days and I have reviewed it.: Yes Section B Chief Complaint: ACUTE PANCREATITIS Allergies: Allergies Allergy/AdvReac Type Severity Reaction Status Date / Time No Known Allergies Allergy Verified 01/22/21 19:16 Plan Diagnosis/Plan: Unchanged I have reviewed the history and physical and performed a pertinent physical examination on my patient. No changes have occurred unless specified.
--- NOTE | 2021-02-06 12:34 | PM.OP ---
Brief Operative Note Date of Service: 02/06/21 Pre-op diagnosis: upper abdo pain, pancreatitis, abn imaging of small intestine Surgeon: Marcia Caraballo MD Estimated blood loss (mL): 0
--- NOTE | 2021-02-06 12:35 | W.PM.OPN ---
Operative Note Operative Note Date of Service: 02/06/21 Narrative: Procedure Description: EGD FLEXIBLE TRANSORAL UPPER GASTROINTESTINAL ENDOSCOPY UPPER ENDOSCOPY Consent: Indications for the procedure and potential complications of bleeding, perforation, reaction to medications and missed diagnosis were discussed with the patient and informed consent was obtained. Instrument: Olympus GIF H 190 J mid size upper endoscope Monitoring: Vital signs and clinical assessment, continuous EKG monitoring, Pulse oximetry, Carbon Dioxide monitoring and blood pressure monitoring were done throughout the procedure. Procedure: The patient was placed in the left lateral decubitis position and pre-procedure medications were administered and a bite block was placed. The endoscope was inserted into the mouth and advanced under direct vision to the third part of duodenum. A careful inspection was made as the upper endoscope was withdrawn including a retroflexed examination of the proximal stomach; Findings and interventions are described below. Findings: Larynx:normal Esophagus: GE junction at 40 cm, diaphragm hiatus at 40 cm, mild esophagitis LA grade A Stomach: Patchy gastric erythema with atrophy of folds and mucosa, granularity noted. Biopsies were obtained. Grade 2 flap valve on retroflexed examination of the cardia. Duodenum: bulbar duodenitis noted, with side viewer scope a 10 mm non bleeding ulcer was noted at the duodenal sweep in the superior apsect. Biospies taken from bulb. The ampulla could not be seen due to swelling. second part of duodenum was normal appearing. Intervention: Biopsies as noted above Impression/Findings: duodenal ulcer bulbar duodenitis atrophic gastritis esophagitis PLAN: probably has h pylori related duodenal ulcer, if pos and confirmed then treat, other capone commence pantoprazole 40 mg OD for the meantime, avoid nsaids
[2021-02-06] MEDS: Lactated Ringers 1,000 ML 50 ML IV (12:45)
[2021-02-06] MEDS: Furosemide 100 MG/10 ML VIAL 60 MG IVPUSH (14:22)
[2021-02-06] MEDS: Heparin Sodium,Porcine 5,000 UNIT/ML VIAL 5000 UNIT SUBCUT ×2 (14:22→21:27)
[2021-02-06] MEDS: Gabapentin 600 MG TABLET PO ×2 (14:28→21:27)
[2021-02-06 16:58] LABS: Glucose, Whole Blood 216 mg/dL (60-115)
[2021-02-06] MEDS: Insulin Lispro 100 UNIT/ML 3 ML VIAL SUBCUT (17:09)
[2021-02-06] MEDS: 0.9 % Sodium Chloride Flush 3 ML SYRINGE IVFLUSH ×2 (17:10→21:28)
[2021-02-06] MEDS: oxyCODONE HCl Immed Release 5 MG TABLET PO (17:22)
[2021-02-06 20:33] LABS: Glucose, Whole Blood 140 mg/dL (60-115)
[2021-02-06] MEDS: Atorvastatin Calcium 80 MG TABLET PO (21:27)
[2021-02-06] MEDS: Zolpidem Tartrate 5 MG TABLET 10 MG PO (21:27)
[2021-02-06] MEDS: Perphenazine 4 MG TABLET PO (21:27)
[2021-02-06] MEDS: NIFEdipine ER 60 MG TAB.ER.24 120 MG PO (21:27)
[2021-02-06] MEDS: OXcarbazepine 300 MG TABLET PO (21:27)
[2021-02-07 04:00] VITALS: BP 115/71; PULSE 82; RESP 20; TEMP 36.7; O2SAT 96
[2021-02-07] MEDS: Heparin Sodium,Porcine 5,000 UNIT/ML VIAL 5000 UNIT SUBCUT ×2 (05:59→12:32)
[2021-02-07] MEDS: Omeprazole 40 MG CAPSULE.DR PO (06:00)
[2021-02-07 06:07] VITALS: BP 152/80
[2021-02-07 07:22] VITALS: BP 139/72; PULSE 94; RESP 18; TEMP 36.4; O2SAT 98
[2021-02-07 08:12] VITALS: BP 139/72; PULSE 94
[2021-02-07] MEDS: carvediloL 25 MG TABLET PO (08:12)
[2021-02-07] MEDS: Sertraline HCL 100 MG TABLET 200 MG PO (08:12)
[2021-02-07] MEDS: Gabapentin 600 MG TABLET PO (08:12)
[2021-02-07] MEDS: Fenofibrate 160 MG TABLET PO (08:12)
[2021-02-07] MEDS: Cholecalciferol (Vitamin D3) 25 MCG TABLET PO (08:12)
[2021-02-07] MEDS: Aspirin Enteric Coated 81 MG TABLET.DR PO (08:12)
[2021-02-07 08:13] VITALS: BP 139/72; PULSE 94
[2021-02-07] MEDS: Spironolactone 25 MG TABLET 50 MG PO (08:13)
[2021-02-07] MEDS: Perphenazine 4 MG TABLET PO (08:13)
[2021-02-07] MEDS: lisinopriL 40 MG TABLET PO (08:13)
[2021-02-07] MEDS: Torsemide 20 MG TABLET 60 MG PO (08:13)
[2021-02-07] MEDS: hydrALAZINE HCl 50 MG TABLET PO (08:13)
[2021-02-07 08:19] LABS: Glucose, Whole Blood 147 mg/dL (60-115)
[2021-02-07] MEDS: 0.9 % Sodium Chloride Flush 3 ML SYRINGE IVFLUSH (08:20)
[2021-02-07] MEDS: OXcarbazepine 300 MG TABLET PO (08:20)
--- NOTE | 2021-02-07 09:43 | PM.DS ---
DS: Providers Provider Date of Service: 02/07/21 <Lashay Frost NP - Last Filed: 02/07/21 10:14> 02/07/21 <Hayes Delgado MD - Last Filed: 02/07/21 12:17> Date of admission: 02/03/21 04:39 <Lashay Frost NP - Last Filed: 02/07/21 10:14> Date of discharge: 02/07/21 <Lashay Frost NP - Last Filed: 02/07/21 10:14> Primary care physician: Nuvia Crook NP <Lashay Frost NP - Last Filed: 02/07/21 10:14> Admitting clinician: Charlotte Harris <Lashay Frost NP - Last Filed: 02/07/21 10:14> Attending physician on admission: Charlotte Harris <Lashay Frost NP - Last Filed: 02/07/21 10:14> Consults: 02/04/21 08:54 Consult to Gastroenterology Routine Consulting Provider: Tracie Toney Reason for consultation: pancreatitis Has provider been notified: No 02/05/21 12:13 Consult to Nephrology Routine Consulting Provider: Renard Ritchie Reason for consultation: uncontolled htn Has provider been notified: No <Lashay Frost NP - Last Filed: 02/07/21 10:14> Attending physician on discharge: Hayes Delgado <Lashay Frost NP - Last Filed: 02/07/21 10:14> Discharging clinician: Lashay Frost <Lashay Frost NP - Last Filed: 02/07/21 10:14> DS: Diagnosis Discharge Diagnosis (1) Duodenal ulcer: Status: Acute <Lashay Frost NP - Last Filed: 02/07/21 10:14> (2) Pancreatitis: Status: Acute <Lashay Frost NP - Last Filed: 02/07/21 10:14> (3) Hypertensive crisis: Status: Inactive <Lashay Frost NP - Last Filed: 02/07/21 10:14> (4) Diabetes mellitus with hyperglycemia, with long-term current use of insulin: Status: Acute <Lashay Frost NP - Last Filed: 02/07/21 10:14> (5) Hypertriglyceridemia: Status: Acute <Lashay Frost NP - Last Filed: 02/07/21 10:14> DS: Medications Discharge Medications Home Medications: Home Medications Medication Instructions Recorded Confirmed aspirin [Aspir-81] 81 mg PO DAILY 07/25/20 02/03/21 atorvastatin 80 mg PO DAILY 07/25/20 02/03/21 carvedilol 25 mg PO BID 07/25/20 02/03/21 cholecalciferol (vitamin D3) 50 mcg PO DAILY 07/25/20 02/03/21 [Vitamin D3] fenofibrate nanocrystallized 145 mg PO DAILY 07/25/20 02/03/21 gabapentin 600 mg PO TID 07/25/20 02/03/21 oxcarbazepine 300 mg PO BID 07/25/20 02/03/21 perphenazine 4 mg PO BID 07/25/20 02/03/21 sertraline 200 mg PO DAILY 07/25/20 02/03/21 spironolactone 50 mg PO DAILY 07/25/20 02/03/21 torsemide 20 mg PO DAILY 07/25/20 02/03/21 Flovent HFA 4 puff INHALATION BID 01/23/21 02/03/21 Toujeo Max U-300 SoloStar 60 unit SUBCUT DAILY 01/23/21 02/03/21 insulin aspart U-100 [Novolog See Rx Instructions .ROUTE .COMPLEX 01/23/21 02/03/21 Flexpen U-100 Insulin] tramadol 2 tab PO Q8H PRN 01/23/21 02/03/21 zolpidem 1 tab PO BEDTIME 01/23/21 02/03/21 Previous Rx's Medication Instructions Recorded pen needle, diabetic 32 gauge x #150 ea 08/01/20 lancets 33 gauge #100 ea 08/16/20 acetaminophen [Tylenol Extra 500 mg PO Q6H PRN #20 tab 09/01/20 Strength] lisinopril 40 mg tablet 40 mg PO QAM #30 tab 11/08/20 nifedipine 30 mg tablet,extended 120 mg PO DAILY #120 tab 11/17/20 release <Lashay Frost NP - Last Filed: 02/07/21 10:14> DS: Summary Hospital Course Hospital Course: This is a 60-year-old male with a history of hypertension, hyperlipidemia, diabetes recent admission for pancreatitis who presented to the emergency department with abdominal pain found to have uncontrolled hypertension and readmitted for pancreatitis Duodenal ulcer. Patient was admitted for epigastric abdominal pain thought to be secondary to pancreatitis. EGD showed Duodenal ulcer atrophic gastritis, esophagitis. H pylori pending, plan is for patient to follow up with Gastroenterology as outpatient. He was started on Prilosec daily. LFTs within normal limits. Lipase was normal. Patient denies alcohol use. diet advanced and tolerating well. Pancreatitis. Recent admission for the same symptoms. Mild edematous changes around the pancreatic head unchanged from the prior study consistent with pancreatitis Hypertension. Blood pressure was uncontrolled. Suspect due to noncompliance with his antihypertensives along with pain from pancreatitis, although he has renal disease that is also contributing. He was seen and evaluated by nephrology with recommendation to increase torsemide to 60 mg daily and continue hydralazine. He will continue outpatient follow-up with primary care provider and Nephrology. Chronic kidney disease. Stayed at baseline during hospitalization. Follow up with Nephrology as outpatient. Attending: Dr. Delgado Attending Attestation: Patient seen and examined independently and I was present during bridges portion of E/M service. Agree with Roxann Frost NP's history, physical, assessment, and plan. Treated with IVF and pain control. Pain still no improved despite this and seen by GI. Underwent endoscopy which showed duodenal ucler, biopsies taken. Started on PPI 40mg daily, to be discharged on the same. To f/u with PCP/GI for biopsy results and start Rx for H. Pylori if positive. Also, BP uncontrolled despite multiple meds. Seen by nephrology and his Torsemide increased to 60mg (from baseline 20mg) and hydralazine 50mg TID started. BP improved, but no ideal yet. To f/u with nephrology for further titration of meds. <Lashay Frost NP - Last Filed: 02/07/21 10:14> Time Spent with Patient Time attestation: Total time spent providing and/or coordinating discharge services: <Lashay Frost NP - Last Filed: 02/07/21 10:14> Discharge coordination time: Greater than 30 minutes <Lashay Frost NP - Last Filed: 02/07/21 10:14> Physical Exam Vital Signs: Vital Signs: Last Vital Signs Temp 97.5 F 02/07/21 07:22 Pulse 94 02/07/21 08:13 Resp 18 02/07/21 07:22 BP 139/72 02/07/21 08:13 Pulse Ox 98 02/07/21 07:22 Body Mass Index 34.8 <Lashay Frost NP - Last Filed: 02/07/21 10:14> Appearing in no acute distress lung sounds are clear to auscultation heart regular rate rhythm, clear S1, S2 positive bowel sounds, abdomen is soft, nontender neuro patient is alert x3, no focal deficits <Lashay Frost NP - Last Filed: 02/07/21 10:14> DS: Data Data Completed and Pending Pending studies at discharge: Pending at discharge 02/06/21 12:59 Surgical [PTH] Routine <Lashay Frost NP - Last Filed: 02/07/21 10:14> Labs on day of discharge: Laboratory Results - last 24 hr 02/06/21 02/06/21 02/06/21 10:39 16:51 20:25 POC Glucose 138 H 216 H 140 H 02/07/21 07:20 POC Glucose 147 H <Lashay Frost NP - Last Filed: 02/07/21 10:14> Discharge Plan Discharge Anticipated Discharge Date/Time: 02/07/21 10:02 <Lashay Frost NP - Last Filed: 02/07/21 10:14> Patient Disposition: Home, Self-Care <Lashay Frost NP - Last Filed: 02/07/21 10:14> Referrals: Nuvia Crook NP [Primary Care Provider] - 1 Week (Tele 02/15/2021 10:00 Shona WAITE will call you to discuss your hospital stay.) Eliecer Graham [Physician] - <Lashay Frost NP - Last Filed: 02/07/21 10:14> Discharge Medications: New hydralazine 50 mg Tablet 50 mg PO TID Qty: 90 RF: 0 torsemide 20 mg Tablet 60 mg PO DAILY Qty: 90 RF: 0 omeprazole 40 mg Capsule,Delayed Release(Dr/Ec) 40 mg PO DAILY@0630 Qty: 30 RF: 0 Continued (DME) pen needle, diabetic [BD Silvia 2nd Gen Pen Needle] 32 gauge x 5/32 needle See Rx Instructions .ROUTE .MEDSUPPLY Qty: 150 RF: 6 (DME) lancets [TRUEplus Lancets] 33 gauge misc See Rx Instructions .ROUTE .MEDSUPPLY Qty: 100 RF: 11 lisinopril 40 mg tablet 40 mg PO QAM Qty: 30 RF: 6 nifedipine 30 mg tablet extended release 120 mg PO DAILY Qty: 120 RF: 5 atorvastatin 80 mg Tablet 80 mg PO DAILY RF: 0 sertraline 100 mg Tablet 200 mg PO DAILY RF: 0 aspirin [Aspir-81] 81 mg Tablet,Delayed Release (Dr/Ec) 81 mg PO DAILY RF: 0 fenofibrate nanocrystallized 145 mg Tablet 145 mg PO DAILY RF: 0 gabapentin 600 mg Tablet 600 mg PO TID RF: 0 oxcarbazepine 300 mg Tablet 300 mg PO BID RF: 0 spironolactone 25 mg Tablet 50 mg PO DAILY RF: 0 perphenazine 4 mg Tablet 4 mg PO BID RF: 0 cholecalciferol (vitamin D3) [Vitamin D3] 25 mcg (1,000 unit) Capsule 50 mcg PO DAILY RF: 0 carvedilol 25 mg Tablet 25 mg PO BID RF: 0 acetaminophen [Tylenol Extra Strength] 500 mg tablet 500 mg PO Q6H PRN (Reason: pain or fever) Qty: 20 RF: 0 tramadol 50 mg tablet 2 tab PO Q8H PRN (Reason: Pain) RF: 0 zolpidem 10 mg tablet 1 tab PO BEDTIME RF: 0 Flovent HFA 110 mcg/actuation HFA aerosol inhaler 4 puff inhalation BID RF: 0 insulin aspart U-100 [Novolog Flexpen U-100 Insulin] 100 unit/mL (3 mL) insulin pen See Rx Instructions .ROUTE .COMPLEX RF: 0 Toujeo Max U-300 SoloStar 300 unit/mL (3 mL) insulin pen 60 unit subcut DAILY RF: 0 Discontinued torsemide 20 mg Tablet 20 mg PO DAILY RF: 0 <Lashay Frost NP - Last Filed: 02/07/21 10:14> Discharge Orders: Discharge Order (Routine); Ordered 02/07/21 Ordered By: Lashay Frost <Lashay Frost NP - Last Filed: 02/07/21 10:14> Diet: advance to usual diet <Lashay Frost NP - Last Filed: 02/07/21 10:14> advance to usual diet <Hayes Delgado MD - Last Filed: 02/07/21 12:17> Activity on Discharge: As tolerated <Lashay Frost NP - Last Filed: 02/07/21 10:14> As tolerated <Hayes Delgado MD - Last Filed: 02/07/21 12:17> Stand Alone Forms: Patient Portal Discharge page <Lashay Frost NP - Last Filed: 02/07/21 10:14> Care Plan Goals: See Below <Lashay Frost NP - Last Filed: 02/07/21 10:14> Health Concerns: High blood pressure Duodenal ulcer pancreatitis <Lashay Frost NP - Last Filed: 02/07/21 10:14> Plan of Treatment: Abdominal pain/pancreatitis. Follow up with Gastroenterology, Dr. Caraballo. [phone] High blood pressure - continue to take all of your blood pressure medication as prescribed. follow-up with primary care provider as needed Chronic kidney disease. Follow up with hemodialysis lab technician, Dr. Ritchie [phone] <Lashay Frost NP - Last Filed: 02/07/21 10:14> Assessment: See discharge summary <Lashay Frost NP - Last Filed: 02/07/21 10:14>
[2021-02-07 11:43] VITALS: BP 156/70; PULSE 94; RESP 18; TEMP 36.2; O2SAT 97
--- NOTE | 2021-02-07 11:54 | HO.POSTANES ---
Post Anesthesia Evaluation Post Anesthesia Evaluation Vital Signs: Vital Signs Temp Pulse Resp BP Pulse Ox 02/07/21 11:43 97.2 F 94 18 156/70 H 97 02/07/21 08:13 94 139/72 02/07/21 08:12 94 139/72 02/07/21 07:22 97.5 F 94 18 139/72 98 02/07/21 06:07 152/80 H 02/07/21 04:00 98.0 F 82 20 115/71 96 Anesthesia: Monitored Mental Status: Awake Pain Control: Satisfactory Nausea/Vomiting: None Hydration: Adequate Anesthesia-Related Issues: No Anes. Related Issues
[2021-02-07 12:22] LABS: Anion Gap 15 (12-20); Blood Urea Nitrogen 45 mg/dL (9-16); Carbon Dioxide 26 mmol/L (22-29); Chloride 102 mmol/L (96-108); Creatinine Clr Calc Pharmacy 29.1; Estimated Glomerular Filt Rate 18; Potassium 4.2 mmol/L (3.3-5.1); Sodium 139 mmol/L (135-145)
[2021-02-07] MEDS: Insulin Lispro 100 UNIT/ML 3 ML VIAL SUBCUT (12:31)
[2021-02-07 12:54] LABS: Glucose, Whole Blood 196 mg/dL (60-115)
--- NOTE | 2021-02-07 13:17 | MHC.CM.PN ---
PT DISCHARGING TODAY HOME SELF-CARE & FOLLOW-UP W/DR JACOBSON IN GI, DAUGHTER RAVEN TO TRANSPORT
--- NOTE | 2021-02-07 14:15 | P.PNNP_ITS ---
Subjective Subjective Date of Service: 02/07/21 Interval history: Seen and examined. Events noted. Feeling better. BP better Physical Exam 2 Vital Signs: Vital Signs: Last Vital Signs Temp 97.2 F 02/07/21 11:43 Pulse 94 02/07/21 11:43 Resp 18 02/07/21 11:43 BP 156/70 H 02/07/21 11:43 Pulse Ox 97 02/07/21 11:43 Body Mass Index 34.8 Const: General: cooperative, healthy appearing, comfortable, no acute distress, alert and awake Nutritional Appearance: well nourished and obese (BMI-34.9) Orientation/consciousness: patient oriented x3 Limitations: no limitations HENMT: Head: Yes normal to inspection, Yes normocephalic and Yes atraumatic Ears: hearing grossly normal bilaterally General nose exam: Normal external nose present Face and sinus: Yes normal facial exam Mouth: Normal oral and palatal mucosa present Throat: Yes posterior oropharynx normal Eyes: General: appearance normal, both eyes and all related structures Sclerae: sclerae normal Pupils: Equal, round and reactive pupils present Neck: Neck: Yes normal visual inspection and Yes supple Chest: Chest palpation & inspection: normal inspection of the chest Resp: Effort & Inspection: normal respiratory effort, able to speak in complete sentences and no respiratory distress Auscultation: clear to auscultation bilaterally Cardio: Jugular venous distension: no JVD Rate: regular rate and bradyca rdic Rhythm: regular rhythm Heart sounds: S1 normal heart sound present and S2 normal heart sound present Peripheral pulses: Peripheral pulses 2+ throughout GI: Inspection: Yes normal to inspection Palpation (GI): Soft to palpation, nontender, no guarding and no masses Auscultation: normal bowel sounds Back/Spine/Pelvis: Thoracic/Lumbar Spine: thoracic and lumbar spine normal to inspection Skin: General skin exam: no rashes or lesions noted Neuro: General: patient oriented x3, no focal motor deficits and normal sensation to monofilament Cranial nerves: Yes CN's II-XII intact bilaterally, Yes Equal, round and reactive pupils present and Yes Bilaterally intact EOM present Cognition (Neuro): normal cognition Speech: No Abnormal speech present Gait exam (Neuro): Normal gait present Motor exam (neuro): 5/5 motor strength present throughout and Other motor observations present ( no motor deficit) Extrem: General: Yes normal to inspection, Yes no clubbing, cyanosis or edema, Yes no pedal edema and Yes no calf tenderness Objective Data Labs CBC & Chem 7: 02/04/21 08:10 02/07/21 11:29 Labs: Laboratory Results - last 24 hr 02/06/21 02/06/21 02/07/21 16:51 20:25 07:20 Sodium Potassium Chloride Carbon Dioxide Anion Gap BUN Creatinine Estim Creat Clear Calc Estimated GFR POC Glucose 216 H 140 H 147 H 02/07/21 02/07/21 11:29 12:15 Sodium 139 Potassium 4.2 Chloride 102 Carbon Dioxide 26 Anion Gap 15 BUN 45 H Creatinine 3.45 H Estim Creat Clear Calc 29.1 Estimated GFR 18 POC Glucose 196 H Assessment & Plan Assessment and plan (1) Abdominal pain: Status: Acute (2) Duodenal ulcer: Status: Acute (3) Pancreatitis: Status: Acute (4) Hypertensive crisis: Status: Inactive (5) Diabetes mellitus with hyperglycemia, with long-term current use of insulin: Status: Acute (6) Hypertriglyceridemia: Status: Acute Assessment and Plan: This is a 60-year-old male with a history of hypertension, hyperlipidemia, diabetes, MGRS admission for pancreatitis who presented to the emergency department with abdominal pain found to have uncontrolled hypertension and readmitted for pancreatitis 1. CKD 4: c/w MGRS and DN/HTN renal dis and decsion was not to treat with IS for MGRS based on his second opinion at [facility] ( Dr Saleh) 2. Severe HTN: suspect hypervol playin a role 3. Abd pain: acute pancreatitis 4. TBFOL: needs incr diouretics for edema and BP control 5. DM REC: anamika .torsemid 60 qd; will follow re BP; recheck renal lbas and repeat SIEP and free light chains; will conisder repeat kidney Bx to reassess potential for IS Tx of MGRS as an outpt Time Spent With Patient Time: Total time spent is greater than 50% in coordination of care (as documented) at patient's floor/unit and/or counseling patient:
[2021-02-09 11:32] LABS: IgA 212 mg/dL (47-310); IgG 1029 mg/dL (600-1640); IgM 57 mg/dL (50-300)
[2021-02-10 22:03] LABS: Kappa, Serum 246 mg/dL (176-443); Kappa/Lambda Ratio, Serum 1.54 (1.29-2.55); Lambda, Serum 160 mg/dL (91-240)
== END 2021-02-07 13:55 | disposition home or self-care (01) | DRG 383 ==
LOC: HO.ED 02-03 01:21 → HO.EDOVER 02-03 04:45 → HO.S3 02-03 14:32
PROVIDERS: Hospitalist; Internal Medicine Gastroenterology; Internal Medicine Nephrology; Nurse Practitioner Family; Physician Assistant Medical; Admitting Provider Internal Medicine; Emergency Provider Emergency Medicine; PCP Nurse Practitioner Primary Care; Visit Provider Family Medicine
PROC: 0DJ08ZZ Inspection of Upper Intestinal Tract, Via Natural or Artificial Opening Endoscopic (ICD-10-PCS; CPT 43235; principal; 2021-02-06 12:50)
DX: K26.9 Duodenal ulcer, unspecified as acute or chronic, without hemorrhage or perforation (principal); K85.90 Acute pancreatitis without necrosis or infection, unspecified; I13.0 Hypertensive heart and chronic kidney disease with heart failure and stage 1 through stage 4 chronic kidney disease, or unspecified chronic kidney disease; N18.4 Chronic kidney disease, stage 4 (severe); I16.9 Hypertensive crisis, unspecified; I50.32 Chronic diastolic (congestive) heart failure; K29.80 Duodenitis without bleeding; E78.5 Hyperlipidemia, unspecified; E11.22 Type 2 diabetes mellitus with diabetic chronic kidney disease; E66.9 Obesity, unspecified; E11.42 Type 2 diabetes mellitus with diabetic polyneuropathy; K76.0 Fatty (change of) liver, not elsewhere classified; E11.65 Type 2 diabetes mellitus with hyperglycemia; F32.9 Major depressive disorder, single episode, unspecified; K29.40 Chronic atrophic gastritis without bleeding; K20.90 Esophagitis, unspecified without bleeding; G47.33 Obstructive sleep apnea (adult) (pediatric); Z20.822 Contact with and (suspected) exposure to COVID-19; Z87.891 Personal history of nicotine dependence; Z68.34 Body mass index [BMI] 34.0-34.9, adult; Z79.4 Long term (current) use of insulin; Z79.82 Long term (current) use of aspirin; Z79.891 Long term (current) use of opiate analgesic; Z79.899 Other long term (current) drug therapy
CPT/HCPCS: 36415; 74176; 80048; 80051; 80061; 80076; 81001; 82550; 82565; 82784; 82947; 82977; 83036; 83615; 83690; 83883; 84478; 84484; 84520; 85025; 85027; 86140; 86334; 87635; 88305; 88342; 93005; 94640; 94660; 96374; 99285; J1170; J1940; J2270; J3010

== ENCOUNTER → 2021-02-14 10:07 | Outpatient (BNVA) | payer OTHER, SELFPAY | PROVIDERS: PCP Nurse Practitioner Primary Care; Visit Provider Nurse Practitioner Family ==

== ENCOUNTER 2021-02-17 18:14 | Emergency (ER) | payer OTHER, SELFPAY ==
--- NOTE | ~2021-02-17 | XR_ITS ---
EXAMINATION: XR CHEST CLINICAL INFORMATION: Shortness of breath COMPARISON: 01/01/2020 and 10/13/2020 TECHNIQUE: Frontal view of the chest was obtained. FINDINGS: Lungs are well expanded and without acute pathology. No evidence of edema, consolidation, pleural effusion or pneumothorax. Cardiac silhouette remains normal in size. Trachea is midline in position. The visualized bones are intact. XR/XR chest 1V IMPRESSION: No acute cardiopulmonary findings.
[2021-02-17 19:18] VITALS: BP 227/91; PULSE 71; RESP 22; TEMP 37.6; O2SAT 98; BMI 20.9
--- NOTE | 2021-02-17 19:32 | PC.NURSE ---
During Triage, BP noted to be high RA:223/93, LA 227/91 with cp and dizziness. Charged RN made aware. Moved to BED 6, and placed on coach tour driver.
--- NOTE | 2021-02-17 20:07 | ED_ITS ---
HPI - General Adult General Chief complaint: General Medical Stated complaint: asthma Time Seen by Provider: 02/17/21 20:07 Source: patient Mode of arrival: ambulatory Limitations: no limitations History of Present Illness HPI narrative: Patient with hx of asthma/COPD sleep apnea been noticing increased shortness of breath for last 2 days also blood pressure was elevated to 220 using inhaler without much response patient is on multiple medication including nifedipine , hydralazine, lisinopril and torsemide for hypertension on arrival patient was saturating 98% at room air patient uses oxygen at home in the nighttime and using CPAP on arrival patient's blood pressure was 227/91 Related Data Home Medications Medication Instructions Recorded Confirmed aspirin [Aspir-81] 81 mg PO DAILY 07/25/20 02/03/21 atorvastatin 80 mg PO DAILY 07/25/20 02/03/21 carvedilol 25 mg PO BID 07/25/20 02/03/21 cholecalciferol (vitamin D3) 50 mcg PO DAILY 07/25/20 02/03/21 [Vitamin D3] fenofibrate nanocrystallized 145 mg PO DAILY 07/25/20 02/03/21 gabapentin 600 mg PO TID 07/25/20 02/03/21 oxcarbazepine 300 mg PO BID 07/25/20 02/03/21 perphenazine 4 mg PO BID 07/25/20 02/03/21 sertraline 200 mg PO DAILY 07/25/20 02/03/21 spironolactone 50 mg PO DAILY 07/25/20 02/03/21 Flovent HFA 4 puff INHALATION BID 01/23/21 02/03/21 Toujeo Max U-300 SoloStar 60 unit SUBCUT DAILY 01/23/21 02/03/21 insulin aspart U-100 [Novolog See Rx Instructions .ROUTE .COMPLEX 01/23/21 02/03/21 Flexpen U-100 Insulin] tramadol 2 tab PO Q8H PRN 01/23/21 02/03/21 zolpidem 1 tab PO BEDTIME 01/23/21 02/03/21 Previous Rx's Medication Instructions Recorded pen needle, diabetic 32 gauge x #150 ea 08/01/20 lancets 33 gauge #100 ea 08/16/20 acetaminophen [Tylenol Extra 500 mg PO Q6H PRN #20 tab 09/01/20 Strength] lisinopril 40 mg tablet 40 mg PO QAM #30 tab 11/08/20 nifedipine 30 mg tablet,extended 120 mg PO DAILY #120 tab 11/17/20 release hydralazine 50 mg PO TID #90 tab 02/07/21 omeprazole 40 mg PO DAILY@0630 #30 cap 02/07/21 torsemide 60 mg PO DAILY #90 tab 02/07/21 prednisone 40 mg PO DAILY #10 tab 02/17/21 Allergies Allergy/AdvReac Type Severity Reaction Status Date / Time No Known Allergies Allergy Verified 01/22/21 19:16 Review of Systems Review of Systems: Constitutional : No Weight loss, No Fever, No Chills ENT/Mouth : No sore throat, No Rhinorrhea Eyes: No Eye Pain, No Swelling Cardiovascular : No Chest Pain, no palpitations Respiratory : No Cough, No Sputum, no shortness of breath Gastrointestinal : no Nausea, No Vomiting, No Diarrhea, No abdominal Pain, no black stools Genitourinary : No Dysuria, No Urinary Frequency Musculoskeletal : No joint pain, No Myalgias, No Joint Swelling Skin : No Skin Lesions, No rash Neuro : No Weakness, No Numbness, No Dizziness, No Headache Psych : No Anxiety/Panic, No Depression Heme/Lymph: No Bruising, No Lymphadenopathy Endocrine : No Polyuria, No Polydipsia All other systems reviewed and are negative [facility] Past Medical History Medical History Abnormal biopsy of kidney Anxiety Asthma CHF (congestive heart failure) Chronic kidney disease (CKD) Chronic kidney disease, stage 4 (severe) COPD (chronic obstructive pulmonary disease) Depression Depression with anxiety Diabetes mellitus with hyperglycemia, with long-term current use of insulin Diverticulitis Elevated cholesterol Erectile dysfunction History of alcohol abuse History of headache HTN (hypertension) Hx of pancreatitis Hypertension Hypertensive crisis Hypertriglyceridemia On beta doron at home Pancreatitis Peptic ulcer Proteinuria Sleep apnea Type 2 diabetes mellitus with chronic kidney disease Type 2 diabetes mellitus with hyperglycemia, with long-term current use of insulin Type 2 diabetes mellitus with polyneuropathy Surgical History Hx of colonoscopy Hx of right inguinal hernia repair Family History Family History Mother Diabetes Social History Social History Household Members: None Housing: Apartment Alcohol intake: former Smoking Status: Current every day smoker Tobacco Type: Cigarette Cigarettes Per Day: 4 Years Smoked: 30 Second Hand Smoke Exposure: Yes Advance Directives: No Advance Directives Information Provided: Yes service: No Current occupational status: retired Physical Exam Vital Signs: Vital Signs: Last Vital Signs Temp 98.6 F 02/17/21 22:06 Pulse 64 02/17/21 22:06 Resp 20 02/17/21 22:06 BP 204/77 H 02/17/21 22:06 Pulse Ox 98 02/17/21 22:06 Body Mass Index 20.9 Appearance: Alert. Oriented X3. No acute distress. Obese Eyes: Pupils equal, round and reactive to light. ENT: Pharynx normal. Neck: Normal inspection. Neck supple. CVS: Normal heart rate and rhythm. Pulses normal. Respiratory: No respiratory distress. Breath sounds normal. Abdomen: Soft and nontender. Bowel sounds are present, no mass palpable, no CVA tenderness Skin: Skin warm and dry. Normal skin color. Normal skin turgor. Extremities: 2+ lower extremity edema. Neuro: Oriented X 3. No motor deficit. No sensory deficit. 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 Result diagrams: 02/17/21 21:12 02/17/21 21:12 Labs: Lab Results 02/17/21 02/17/21 02/17/21 Range/Units 21:12 21:12 21:12 WBC 7.9 (4.8-10.8) X10*3/uL RBC 3.23 L (4.60-5.80) X10*6/uL Hgb 10.1 L (14.0-18.0) g/dl Hct 28.7 L (42-52) % MCV 88.9 (80-98) fL MCH 31.3 (27.0-33.0) pg MCHC 35.2 (31.0-36.0) g/dl RDW 12.9 (11.0-16.0) % Plt Count 148 L (160-400) X10*3/uL MPV 12.0 (9.4-12.4) fL Immature Gran % (Auto) 0.4 (0.0-0.4) % Neut % (Auto) 68.1 (45-73) % Lymph % (Auto) 22.1 (20-40) % Bureau % (Auto) 5.5 (2-11) % Eos % (Auto) 3.6 (0-4) % Baso % (Auto) 0.3 (0-2) % Lymph # (Auto) 1.7 (1.2-4.9) X10*3/uL Bureau # (Auto) 0.4 (0.1-1.2) X10*3/uL Eos # (Auto) 0.3 (0.0-0.4) X10*3/uL Baso # (Auto) 0.0 (0.0-0.2) X10*3/uL Abs Immat Gran (auto) 0.03 (0.00-0.03) X10*3/uL Absolute Neuts (auto) 5.4 (2.0-8.3) X10*3/uL Absolute Nucleated RBC 0.000 (0.0-0.012) X10*3/uL Nucleated RBC % (auto) 0.0 (0.0-0.2) /100WBC Sodium 142 (135-145) mmol/L Potassium 3.8 (3.3-5.1) mmol/L Chloride 110 H (96-108) mmol/L Carbon Dioxide 23 (22-29) mmol/L Anion Gap 13 (12-20) BUN 38 H (9-16) mg/dL Creatinine 3.54 H (0.5-1.4) mg/dL Estim Creat Clear Calc 21.4 Estimated GFR 18 Random Glucose 227 H D (60-115) mg/dL Calcium 7.5 L D (8.4-10.2) mg/dL Total Bilirubin 0.4 (0.0-1.0) mg/dL Direct Bilirubin < 0.2 (0.0-0.5) mg/dL AST 19 (5-37) U/L ALT 19 (0-40) U/L Alkaline Phosphatase 67 (39-117) U/L Troponin I High Sens (<3.5-35.0) ng/L B-Natriuretic Peptide 113 H (<100) pg/mL Total Protein 5.9 L (6.5-8.0) g/dL Albumin 3.4 L (3.5-5.0) g/dL 02/17/21 Range/Units 21:12 WBC (4.8-10.8) X10*3/uL RBC (4.60-5.80) X10*6/uL Hgb (14.0-18.0) g/dl Hct (42-52) % MCV (80-98) fL MCH (27.0-33.0) pg MCHC (31.0-36.0) g/dl RDW (11.0-16.0) % Plt Count (160-400) X10*3/uL MPV (9.4-12.4) fL Immature Gran % (Auto) (0.0-0.4) % Neut % (Auto) (45-73) % Lymph % (Auto) (20-40) % Bureau % (Auto) (2-11) % Eos % (Auto) (0-4) % Baso % (Auto) (0-2) % Lymph # (Auto) (1.2-4.9) X10*3/uL Bureau # (Auto) (0.1-1.2) X10*3/uL Eos # (Auto) (0.0-0.4) X10*3/uL Baso # (Auto) (0.0-0.2) X10*3/uL Abs Immat Gran (auto) (0.00-0.03) X10*3/uL Absolute Neuts (auto) (2.0-8.3) X10*3/uL Absolute Nucleated RBC (0.0-0.012) X10*3/uL Nucleated RBC % (auto) (0.0-0.2) /100WBC Sodium (135-145) mmol/L Potassium (3.3-5.1) mmol/L Chloride (96-108) mmol/L Carbon Dioxide (22-29) mmol/L Anion Gap (12-20) BUN (9-16) mg/dL Creatinine (0.5-1.4) mg/dL Estim Creat Clear Calc Estimated GFR Random Glucose (60-115) mg/dL Calcium (8.4-10.2) mg/dL Total Bilirubin (0.0-1.0) mg/dL Direct Bilirubin (0.0-0.5) mg/dL AST (5-37) U/L ALT (0-40) U/L Alkaline Phosphatase (39-117) U/L Troponin I High Sens 19.8 (<3.5-35.0) ng/L B-Natriuretic Peptide (<100) pg/mL Total Protein (6.5-8.0) g/dL Albumin (3.5-5.0) g/dL Discharge Plan Discharge Clinical Impression: COPD (chronic obstructive pulmonary disease) Qualifiers: COPD type: chronic bronchitis Chronic bronchitis type: mucopurulent Qualified Code(s): J41.1 - Mucopurulent chronic bronchitis Hypertension Qualifiers: Hypertension type: essential hypertension Qualified Code(s): I10 - Essential (primary) hypertension Diabetes mellitus Qualifiers: Diabetes mellitus type: type 2 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: with usp use Diabetes mellitus complication status: with kidney complications Diabetes mellitus complication detail: with chronic kidney disease Chronic kidney disease stage: stage 4 (severe) Qualified Code(s): E11.22 - Type 2 diabetes mellitus with diabetic chronic kidney disease Patient Disposition: Home, Self-Care Instructions: COPD (Chronic Obstructive Pulmonary Disease) (ED), Hypertension (ED), Type 2 Diabetes Management for Adults (ED) Additional Instructions: Continue medication and follow with lung specialist and pattern worker and PCP Check her blood sugar more often as prednisone will increase your sugar Prescriptions: New prednisone 20 mg tablet 40 mg PO DAILY Qty: 10 RF: 0 No Action (DME) pen needle, diabetic [BD Silvia 2nd Gen Pen Needle] 32 gauge x 5/32 needle See Rx Instructions .ROUTE .MEDSUPPLY Qty: 150 RF: 6 (DME) lancets [TRUEplus Lancets] 33 gauge misc See Rx Instructions .ROUTE .MEDSUPPLY Qty: 100 RF: 11 lisinopril 40 mg tablet 40 mg PO QAM Qty: 30 RF: 6 nifedipine 30 mg tablet extended release 120 mg PO DAILY Qty: 120 RF: 5 atorvastatin 80 mg Tablet 80 mg PO DAILY RF: 0 sertraline 100 mg Tablet 200 mg PO DAILY RF: 0 aspirin [Aspir-81] 81 mg Tablet,Delayed Release (Dr/Ec) 81 mg PO DAILY RF: 0 fenofibrate nanocrystallized 145 mg Tablet 145 mg PO DAILY RF: 0 gabapentin 600 mg Tablet 600 mg PO TID RF: 0 oxcarbazepine 300 mg Tablet 300 mg PO BID RF: 0 spironolactone 25 mg Tablet 50 mg PO DAILY RF: 0 perphenazine 4 mg Tablet 4 mg PO BID RF: 0 cholecalciferol (vitamin D3) [Vitamin D3] 25 mcg (1,000 unit) Capsule 50 mcg PO DAILY RF: 0 carvedilol 25 mg Tablet 25 mg PO BID RF: 0 hydralazine 50 mg Tablet 50 mg PO TID Qty: 90 RF: 0 torsemide 20 mg Tablet 60 mg PO DAILY Qty: 90 RF: 0 omeprazole 40 mg Capsule,Delayed Release(Dr/Ec) 40 mg PO DAILY@0630 Qty: 30 RF: 0 acetaminophen [Tylenol Extra Strength] 500 mg tablet 500 mg PO Q6H PRN (Reason: pain or fever) Qty: 20 RF: 0 tramadol 50 mg tablet 2 tab PO Q8H PRN (Reason: Pain) RF: 0 zolpidem 10 mg tablet 1 tab PO BEDTIME RF: 0 Flovent HFA 110 mcg/actuation HFA aerosol inhaler 4 puff inhalation BID RF: 0 insulin aspart U-100 [Novolog Flexpen U-100 Insulin] 100 unit/mL (3 mL) insulin pen See Rx Instructions .ROUTE .COMPLEX RF: 0 Toujeo Max U-300 SoloStar 300 unit/mL (3 mL) insulin pen 60 unit subcut DAILY RF: 0 Referrals: Thomas Frost MD [Physician] - 1 week
--- NOTE | 2021-02-17 20:43 | ECG_ITS ---
Test Reason : CHEST PAIN Blood Pressure : / mmHG Vent. Rate : 066 BPM Atrial Rate : 066 BPM P-R Int : 196 ms QRS Dur : 130 ms QT Int : 436 ms P-R-T Axes : 027 -55 076 degrees QTc Int : 457 ms Normal sinus rhythm Left axis deviation Left ventricular hypertrophy with QRS widening Cannot rule out Anterior infarct , age undetermined T wave abnormality, consider lateral ischemia Abnormal ECG When compared with ECG of 02-FEB-2021 21:32, No significant change was found Referred By: Austyn Chávez Electronically Signed By:CHARITO DIAZ MD
[2021-02-17 20:57] VITALS: BP 194/82; PULSE 65; RESP 15; TEMP 37; O2SAT 95
[2021-02-17] MEDS: methylPREDNISolone Sod Succ 125 MG/2 ML VIAL IVPUSH (21:13)
[2021-02-17 21:18] VITALS: BP 181/63; PULSE 66
[2021-02-17] MEDS: hydrALAZINE HCl 50 MG TABLET PO (21:18)
[2021-02-17 21:19] LABS: MANUAL DIFF FLAG NO
[2021-02-17 21:20] LABS: Basophils Percent Auto 0.3 % (0-2); Eosinophils Absolute Auto 0.3 X10*3/uL (0.0-0.4); Eosinophils Percent Auto 3.6 % (0-4); Hematocrit 28.7 % (42-52); Hemoglobin 10.1 g/dl (14.0-18.0); Imm Gran Abs Auto 0.03 X10*3/uL (0.00-0.03); Imm Gran Pct Auto 0.4 % (0.0-0.4); Lymphocytes Absolute Auto 1.7 X10*3/uL (1.2-4.9); Lymphocytes Percent Auto 22.1 % (20-40); Mean Corpuscular HGB Conc 35.2 g/dl (31.0-36.0); Mean Corpuscular Hemoglobin 31.3 pg (27.0-33.0); Mean Corpuscular Volume 88.9 fL (80-98); Monocytes Absolute Auto 0.4 X10*3/uL (0.1-1.2); Monocytes Percent Auto 5.5 % (2-11); Neutrophils Absolute Auto 5.4 X10*3/uL (2.0-8.3); Neutrophils Percent Auto 68.1 % (45-73); Platelet Count 148 X10*3/uL (160-400); Red Blood Count 3.23 X10*6/uL (4.60-5.80); Red Cell Distribution Width 12.9 % (11.0-16.0); White Blood Count 7.9 X10*3/uL (4.8-10.8)
[2021-02-17 21:42] LABS: Alanine Aminotransferase 19 U/L (0-40); Albumin Level 3.4 g/dL (3.5-5.0); Alkaline Phosphatase 67 U/L (39-117); Anion Gap 13 (12-20); Aspartate Amino Transferase 19 U/L (5-37); Bilirubin Direct < 0.2 mg/dL (0.0-0.5); Bilirubin Total 0.4 mg/dL (0.0-1.0); Blood Urea Nitrogen 38 mg/dL (9-16); Calcium 7.5 mg/dL (8.4-10.2); Carbon Dioxide 23 mmol/L (22-29); Chloride 110 mmol/L (96-108); Creatinine Clr Calc Pharmacy 21.4; Estimated Glomerular Filt Rate 18; Glucose Random 227 mg/dL (60-115); Potassium 3.8 mmol/L (3.3-5.1); Sodium 142 mmol/L (135-145); Total Protein 5.9 g/dL (6.5-8.0)
[2021-02-17 21:48] LABS: Troponin-I High Sensitivity 19.8 ng/L (<3.5-35.0)
[2021-02-17 22:06] VITALS: BP 204/77; PULSE 64; RESP 20; TEMP 37; O2SAT 98
[2021-02-17 22:54] LABS: B Type Natriuretic Peptide 113 pg/mL (<100)
[2021-02-18] VITALS: BP 177/74; PULSE 61; RESP 20; O2SAT 98
--- NOTE | 2021-02-18 00:07 | PC.NURSE ---
PATIENT BLOOD PRESSURE PRIOR TO MEDICATION ADMINISTRATION WAS 177/74, MD MADE AWARE. ORDERS TO HOLD MEDICATION DUE TO BLOOD PRESSURE LESSENING. PLAN FOR DISCHARGE HOME.
[2021-02-18 00:23] VITALS: BP 177/74; PULSE 60
[2021-02-18 00:24] VITALS: BP 177/74; PULSE 60
== END 2021-02-18 00:26 | disposition home or self-care (01) ==
PROVIDERS: Emergency Provider Internal Medicine; PCP Nurse Practitioner Primary Care
DX: J41.1 Mucopurulent chronic bronchitis (principal); E11.22 Type 2 diabetes mellitus with diabetic chronic kidney disease; I13.0 Hypertensive heart and chronic kidney disease with heart failure and stage 1 through stage 4 chronic kidney disease, or unspecified chronic kidney disease; N18.4 Chronic kidney disease, stage 4 (severe); I50.9 Heart failure, unspecified; F17.210 Nicotine dependence, cigarettes, uncomplicated; F10.21 Alcohol dependence, in remission; Z79.899 Other long term (current) drug therapy; Z99.81 Dependence on supplemental oxygen; Z79.4 Long term (current) use of insulin; Z79.02 Long term (current) use of antithrombotics/antiplatelets
CPT/HCPCS: 36415; 71045; 80048; 80076; 83880; 84484; 85025; 93005; 96374; 99284; J2930

== ENCOUNTER → 2021-02-20 13:03 | Outpatient (BNVA) | payer OTHER, SELFPAY | PROVIDERS: PCP Nurse Practitioner Primary Care; Visit Provider Nurse Practitioner Gerontology | DX: E11.65 Type 2 diabetes mellitus with hyperglycemia (principal); E11.42 Type 2 diabetes mellitus with diabetic polyneuropathy; E11.22 Type 2 diabetes mellitus with diabetic chronic kidney disease; I12.9 Hypertensive chronic kidney disease with stage 1 through stage 4 chronic kidney disease, or unspecified chronic kidney disease; N18.4 Chronic kidney disease, stage 4 (severe); Z79.4 Long term (current) use of insulin; E78.1 Pure hyperglyceridemia | CPT/HCPCS: 82947; 99212 ==

== ENCOUNTER 2021-02-20 14:09 | Emergency (ER) | payer OTHER, SELFPAY ==
[2021-02-20] VITALS (7 sets, daily range): BP systolic 164–222; BP diastolic 75–95; PULSE 60–69; RESP 16–18; TEMP 36.2–37; O2SAT 96–99; BMI 34.8
[2021-02-20] MEDS: Acetaminophen 325 MG TABLET 650 MG PO (16:12)
[2021-02-20 17:44] LABS: MANUAL DIFF FLAG NO
[2021-02-20 17:51] LABS: Basophils Percent Auto 0.2 % (0-2); Eosinophils Percent Auto 0.3 % (0-4); Hematocrit 33.9 % (42-52); Hemoglobin 11.7 g/dl (14.0-18.0); Imm Gran Abs Auto 0.05 X10*3/uL (0.00-0.03); Imm Gran Pct Auto 0.5 % (0.0-0.4); Lymphocytes Absolute Auto 0.8 X10*3/uL (1.2-4.9); Lymphocytes Percent Auto 8.2 % (20-40); Mean Corpuscular HGB Conc 34.5 g/dl (31.0-36.0); Mean Corpuscular Volume 89.9 fL (80-98); Mean Platelet Volume 11.9 fL (9.4-12.4); Monocytes Absolute Auto 0.2 X10*3/uL (0.1-1.2); Monocytes Percent Auto 1.9 % (2-11); Neutrophils Absolute Auto 8.5 X10*3/uL (2.0-8.3); Neutrophils Percent Auto 88.9 % (45-73); Platelet Count 192 X10*3/uL (160-400); Red Blood Count 3.77 X10*6/uL (4.60-5.80); Red Cell Distribution Width 13.2 % (11.0-16.0); White Blood Count 9.6 X10*3/uL (4.8-10.8)
--- NOTE | 2021-02-20 17:57 | ECG_ITS ---
Test Reason : HYPERTNSION Blood Pressure : / mmHG Vent. Rate : 060 BPM Atrial Rate : 060 BPM P-R Int : 196 ms QRS Dur : 116 ms QT Int : 434 ms P-R-T Axes : 037 -55 073 degrees QTc Int : 434 ms Normal sinus rhythm Left anterior fascicular block Left ventricular hypertrophy with QRS widening ST & T wave abnormality, consider lateral ischemia Abnormal ECG When compared with ECG of 17-FEB-2021 20:52, No significant change was found Referred By: Barbara Wilson Electronically Signed By:CHARITO DIAZ MD
--- NOTE | 2021-02-20 18:04 | ED.GENADULT ---
HPI - General Adult General Chief complaint: Recheck/Abnormal Lab/Rx Stated complaint: hi bp Time Seen by Provider: 02/20/21 17:44 Source: patient Mode of arrival: ambulatory Limitations: no limitations History of Present Illness HPI narrative: 60-year-old male with a past medical history of hypertension, diabetes, chronic kidney disease, anxiety, asthma, congestive heart failure, depression, high cholesterol, alcohol abuse here with complaints of high blood pressure. Patient tells me he was seen here last week for same and was discharged home with PCP follow-up but he did not follow-up. He was seen at endocrinology for his visit for his diabetes and was noted to be hypertensive was referred to the emergency department for further evaluation. He is complaining of a mild headache. No chest pain, vision changes, nausea, vomiting, dizziness. He tells me he has been compliant with taking his antihypertensives which include torsemide, hydralazine, nifedipine, lisinopril, Coreg. Related Data Home Medications Medication Instructions Recorded Confirmed aspirin [Aspir-81] 81 mg PO DAILY 07/25/20 02/20/21 atorvastatin 80 mg PO DAILY 07/25/20 02/20/21 carvedilol 25 mg PO BID 07/25/20 02/20/21 cholecalciferol (vitamin D3) 50 mcg PO DAILY 07/25/20 02/20/21 [Vitamin D3] fenofibrate nanocrystallized 145 mg PO DAILY 07/25/20 02/20/21 gabapentin 600 mg PO TID 07/25/20 02/20/21 oxcarbazepine 300 mg PO BID 07/25/20 02/20/21 perphenazine 4 mg PO BID 07/25/20 02/20/21 sertraline 200 mg PO DAILY 07/25/20 02/20/21 spironolactone 50 mg PO DAILY 07/25/20 02/20/21 Flovent HFA 4 puff INHALATION BID 01/23/21 02/20/21 tramadol 2 tab PO Q8H PRN 01/23/21 02/20/21 zolpidem 1 tab PO BEDTIME 01/23/21 02/20/21 Previous Rx's Medication Instructions Recorded pen needle, diabetic 32 gauge x #150 ea 08/01/20 lancets 33 gauge #100 ea 08/16/20 acetaminophen [Tylenol Extra 500 mg PO Q6H PRN #20 tab 09/01/20 Strength] lisinopril 40 mg tablet 40 mg PO QAM #30 tab 11/08/20 nifedipine 30 mg tablet,extended 120 mg PO DAILY #120 tab 11/17/20 release hydralazine 50 mg PO TID #90 tab 02/07/21 omeprazole 40 mg PO DAILY@0630 #30 cap 02/07/21 torsemide 60 mg PO DAILY #90 tab 02/07/21 prednisone 40 mg PO DAILY #10 tab 02/17/21 insulin aspart U-100 100 unit/mL See Rx Instructions SUBCUT TID 30 02/18/21 (3 mL) subcutaneous pen Days #30 ml glucose 4 gram chewable tablet 16 g PO Q15M PRN #30 tab 02/20/21 hydralazine 100 mg PO TID #90 tab 02/20/21 insulin glargine U-300 conc 300 60 unit SUBCUT DAILY #6 ml 02/20/21 unit/mL (3 mL) subcutaneous pen Allergies Allergy/AdvReac Type Severity Reaction Status Date / Time No Known Allergies Allergy Verified 02/20/21 15:09 Review of Systems Review of Systems: Yes all other systems are reviewed and are negative Constitutional: Constitutional: Reports no additional constitutional complaints, Denies body ache(s), Denies chills, Denies fever(s), Reports headache(s) and Denies weakness Eyes: Eyes: Reports no additional eye complaints and Denies change in vision ENT: Reports system reviewed and no additional complaints, except as documented, Denies dizziness, Reports headache(s), Denies nasal congestion, Denies nasal discharge and Denies neck pain Cardiovascular: Cardiovascular: Reports no additional cardiovascular complaints, Denies chest pain, Denies leg edema and Denies dyspnea Respiratory: Respiratory: Reports no additional respiratory complaints, Denies cough and Denies dyspnea Gastrointestinal: Gastrointestinal: Reports no additional gastrointestinal complaints, Denies abdominal pain, Denies diarrhea, Denies nausea and Denies vomiting Genitourinary: Genitourinary: Denies urinary incontinence Musculoskeletal: Musculoskeletal: Reports no additional musculoskeletal complaints, Denies back pain, Denies arthralgias, Denies joint swelling, Denies neck pain, Denies numbness and Denies tingling Integumentary/Breasts: Skin/Breast: Reports system reviewed and no additional complaints, except as docu and Denies rash Neurologic: Reports system reviewed and no additional complaints, except as documented, Denies Abnormal speech present, Denies dizziness, Reports headache(s), Denies numbness, Denies tingling and Denies weakness PMFSH Past Medical History Attestation statement: The following information was validated with the patient. Source: old records reviewed and nursing notes reviewed Medical History Abnormal biopsy of kidney Anxiety Asthma CHF (congestive heart failure) Chronic kidney disease (CKD) Chronic kidney disease, stage 4 (severe) COPD (chronic obstructive pulmonary disease) Depression Depression with anxiety Diabetes mellitus with hyperglycemia, with long-term current use of insulin Diverticulitis Elevated cholesterol Erectile dysfunction History of alcohol abuse History of headache HTN (hypertension) Hx of pancreatitis Hypertension Hypertensive crisis Hypertriglyceridemia On beta doron at home Pancreatitis Peptic ulcer Proteinuria Sleep apnea Type 2 diabetes mellitus with chronic kidney disease Type 2 diabetes mellitus with hyperglycemia, with long-term current use of insulin Type 2 diabetes mellitus with polyneuropathy Surgical History Hx of colonoscopy Hx of right inguinal hernia repair Family History Family History Mother Diabetes Social History Social History Household Members: None Housing: Apartment Alcohol intake: never Smoking Status: Current some day smoker Tobacco Type: Cigarette Cigarettes Per Day: 4 Years Smoked: 30 Smoked in Last 30 Days: Yes Second Hand Smoke Exposure: Yes Use of substances other than those prescribed or required for medical reasons: No Advance Directives: No Advance Directives Information Provided: No service: No Current occupational status: retired Physical Exam Vital Signs: Vital Signs: Last Vital Signs Temp 97.1 F 02/20/21 17:44 Pulse 60 02/20/21 20:00 Resp 18 02/20/21 20:00 BP 164/75 H 02/20/21 20:00 Pulse Ox 98 02/20/21 20:00 Body Mass Index 34.8 Const: General: cooperative, healthy appearing, comfortable and no acute distress Orientation/consciousness: patient oriented x3 Limitations: no limitations HENMT: Head: Yes normal to inspection Ears: hearing grossly normal bilaterally General nose exam: Normal external nose present Face and sinus: Yes normal facial exam Mouth: Normal oral and palatal mucosa present Throat: Yes posterior oropharynx normal Eyes: General: appearance normal, both eyes and all related structures Pupils: Equal, round and reactive pupils present Neck: Neck: Yes normal visual inspection Chest: Chest palpation & inspection: normal inspection of the chest Resp: Effort & Inspection: normal respiratory effort Auscultation: clear to auscultation bilaterally Cardio: Rate: regular rate Rhythm: regular rhythm Peripheral pulses: Peripheral pulses 2+ throughout GI: Inspection: Yes normal to inspection Palpation (GI): Soft to palpation and nontender Auscultation: normal bowel sounds Back/Spine/Pelvis: Thoracic/Lumbar Spine: thoracic and lumbar spine normal to inspection Skin: General skin exam: no rashes or lesions noted Neuro: General: patient oriented x3, no focal motor deficits and normal sensation to monofilament Cranial nerves: Yes CN's II-XII intact bilaterally, Yes Equal, round and reactive pupils present, Yes Bilaterally intact EOM present, Yes Nystagmus not present, Yes Normal facial strength present and Yes Midline tongue present Cognition (Neuro): normal cognition Speech: No Abnormal speech present Gait exam (Neuro): Normal gait present Motor exam (neuro): 5/5 motor strength present throughout Sensory Exam: Normal double simultaneous stimulation for sensation Extrem: General: Yes normal to inspection, Yes no pedal edema and Yes no calf tenderness Course Course Course Narrative: 60-year-old male here with hypertension noted an outside office with a mild headache referred to the emergency department for further evaluation. Blood pressure when I evaluated the patient was 211/83. He is complaining of a mild headache but no other symptoms. He is taking multiple antihypertensives and tells me he has been compliant. He was seen here last week for similar but did not follow-up with his primary care doctor. He does tell me that he is due for his dose of hydralazine 50 mg and Coreg 25 mg. After review of his antihypertensives we likely can increase his hydralazine from 50 mg t.i.d. to 100 mg t.i.d. will order an extra dose of hydralazine and monitor blood pressure. Patient will need labs, UA, EKG. 2000-SHAW improved with APAP. BP 164/75. Kidney disease which is unchanged. Troponin is 13.3 which is actually improved from previous the patient has no signs of ischemic changes on the EKG or reports of chest pain. Plan for discharge home with increased dose of hydralazine. Recommend follow-up with primary care doctor. Reviewed worrisome signs and symptoms of when to return to the emergency department. Comfortable discharge home. Medical Decision Making Medical Records Medical records reviewed: Yes I reviewed the patient's medical records. Lab Data Lab results reviewed: Yes I reviewed the patient's lab results. Result diagrams: 02/20/21 17:40 02/20/21 17:40 Labs: Lab Results 02/20/21 02/20/21 02/20/21 Range/Units 17:40 17:40 17:40 WBC 9.6 (4.8-10.8) X10*3/uL RBC 3.77 L (4.60-5.80) X10*6/uL Hgb 11.7 L (14.0-18.0) g/dl Hct 33.9 L (42-52) % MCV 89.9 (80-98) fL MCH 31.0 (27.0-33.0) pg MCHC 34.5 (31.0-36.0) g/dl RDW 13.2 (11.0-16.0) % Plt Count 192 D (160-400) X10*3/uL MPV 11.9 (9.4-12.4) fL Immature Gran % (Auto) 0.5 H (0.0-0.4) % Neut % (Auto) 88.9 H (45-73) % Lymph % (Auto) 8.2 L (20-40) % [place] % (Auto) 1.9 L (2-11) % Eos % (Auto) 0.3 (0-4) % Baso % (Auto) 0.2 (0-2) % Lymph # (Auto) 0.8 L (1.2-4.9) X10*3/uL [place] # (Auto) 0.2 (0.1-1.2) X10*3/uL Eos # (Auto) 0.0 (0.0-0.4) X10*3/uL Baso # (Auto) 0.0 (0.0-0.2) X10*3/uL Abs Immat Gran (auto) 0.05 H (0.00-0.03) X10*3/uL Absolute Neuts (auto) 8.5 H (2.0-8.3) X10*3/uL Absolute Nucleated RBC 0.000 (0.0-0.012) X10*3/uL Nucleated RBC % (auto) 0.0 (0.0-0.2) /100WBC Hold Blue Top SEE NOTE Sodium 141 (135-145) mmol/L Potassium 4.9 D (3.3-5.1) mmol/L Chloride 109 H (96-108) mmol/L Carbon Dioxide 23 (22-29) mmol/L Anion Gap 14 (12-20) BUN 48 H (9-16) mg/dL Creatinine 3.38 H (0.5-1.4) mg/dL Estim Creat Clear Calc 29.7 Estimated GFR 19 Random Glucose 183 H (60-115) mg/dL Calcium 8.4 D (8.4-10.2) mg/dL Magnesium 1.8 (1.6-2.6) mg/dL Total Bilirubin 0.3 (0.0-1.0) mg/dL Direct Bilirubin < 0.2 (0.0-0.5) mg/dL AST 17 (5-37) U/L ALT 26 (0-40) U/L Alkaline Phosphatase 70 (39-117) U/L Troponin I High Sens (<3.5-35.0) ng/L Total Protein 6.7 (6.5-8.0) g/dL Albumin 3.9 (3.5-5.0) g/dL Urine Color Urine Appearance Urine pH (5.0-8.0) Ur Specific [place] (1.005-1.025) Urine Protein (NEG-TRACE) MG/DL Urine Glucose (UA) (NEG) MG/DL Urine Ketones (NEG) MG/DL Urine Blood (NEG) Urine Nitrite (NEG) Ur Leukocyte Esterase (NEG) Urine RBC (0) /HPF Urine WBC (0-4) /HPF Ur Squamous Epith Cells /LPF Urine Bacteria /LPF 02/20/21 02/20/21 Range/Units 17:40 19:16 WBC (4.8-10.8) X10*3/uL RBC (4.60-5.80) X10*6/uL Hgb (14.0-18.0) g/dl Hct (42-52) % MCV (80-98) fL MCH (27.0-33.0) pg MCHC (31.0-36.0) g/dl RDW (11.0-16.0) % Plt Count (160-400) X10*3/uL MPV (9.4-12.4) fL Immature Gran % (Auto) (0.0-0.4) % Neut % (Auto) (45-73) % Lymph % (Auto) (20-40) % [place] % (Auto) (2-11) % Eos % (Auto) (0-4) % Baso % (Auto) (0-2) % Lymph # (Auto) (1.2-4.9) X10*3/uL [place] # (Auto) (0.1-1.2) X10*3/uL Eos # (Auto) (0.0-0.4) X10*3/uL Baso # (Auto) (0.0-0.2) X10*3/uL Abs Immat Gran (auto) (0.00-0.03) X10*3/uL Absolute Neuts (auto) (2.0-8.3) X10*3/uL Absolute Nucleated RBC (0.0-0.012) X10*3/uL Nucleated RBC % (auto) (0.0-0.2) /100WBC Hold Blue Top Sodium (135-145) mmol/L Potassium (3.3-5.1) mmol/L Chloride (96-108) mmol/L Carbon Dioxide (22-29) mmol/L Anion Gap (12-20) BUN (9-16) mg/dL Creatinine (0.5-1.4) mg/dL Estim Creat Clear Calc Estimated GFR Random Glucose (60-115) mg/dL Calcium (8.4-10.2) mg/dL Magnesium (1.6-2.6) mg/dL Total Bilirubin (0.0-1.0) mg/dL Direct Bilirubin (0.0-0.5) mg/dL AST (5-37) U/L ALT (0-40) U/L Alkaline Phosphatase (39-117) U/L Troponin I High Sens 13.3 (<3.5-35.0) ng/L Total Protein (6.5-8.0) g/dL Albumin (3.5-5.0) g/dL Urine Color YELLOW Urine Appearance CLEAR Urine pH 7.0 (5.0-8.0) Ur Specific [place] 1.015 (1.005-1.025) Urine Protein 3+ H (NEG-TRACE) MG/DL Urine Glucose (UA) 100 H (NEG) MG/DL Urine Ketones NEG (NEG) MG/DL Urine Blood 1+ H (NEG) Urine Nitrite NEG (NEG) Ur Leukocyte Esterase NEG (NEG) Urine RBC 0-2 (0) /HPF Urine WBC 0-2 (0-4) /HPF Ur Squamous Epith Cells TRACE /LPF Urine Bacteria NONE /LPF ECG Data Attestation: I personally reviewed and interpreted this ECG as follows: Interpretation: NSR with rate 60, normal pr, normal qrs, normal qtc Discharge Plan Discharge Clinical Impression: HTN (hypertension) Qualifiers: Hypertension type: unspecified Qualified Code(s): I10 - Essential (primary) hypertension Patient Disposition: Home, Self-Care Instructions: Chronic Hypertension (ED) Additional Instructions: We have increased your dose of hydralazine from 50 mg 3 times daily to 100 mg 3 times daily. Is important that you follow-up with your primary care doctor for the management of your high blood pressure Prescriptions: New hydralazine 100 mg tablet 100 mg PO TID Qty: 90 RF: 0 No Action (DME) pen needle, diabetic [BD Silvia 2nd Gen Pen Needle] 32 gauge x 5/32 needle See Rx Instructions .ROUTE .MEDSUPPLY Qty: 150 RF: 6 (DME) lancets [TRUEplus Lancets] 33 gauge misc See Rx Instructions .ROUTE .MEDSUPPLY Qty: 100 RF: 11 lisinopril 40 mg tablet 40 mg PO QAM Qty: 30 RF: 6 nifedipine 30 mg tablet extended release 120 mg PO DAILY Qty: 120 RF: 5 insulin aspart U-100 [Novolog Flexpen U-100 Insulin] 100 unit/mL (3 mL) insulin pen See Rx Instructions subcut TID 30 Days Qty: 30 RF: 0 atorvastatin 80 mg Tablet 80 mg PO DAILY RF: 0 sertraline 100 mg Tablet 200 mg PO DAILY RF: 0 aspirin [Aspir-81] 81 mg Tablet,Delayed Release (Dr/Ec) 81 mg PO DAILY RF: 0 fenofibrate nanocrystallized 145 mg Tablet 145 mg PO DAILY RF: 0 gabapentin 600 mg Tablet 600 mg PO TID RF: 0 oxcarbazepine 300 mg Tablet 300 mg PO BID RF: 0 spironolactone 25 mg Tablet 50 mg PO DAILY RF: 0 perphenazine 4 mg Tablet 4 mg PO BID RF: 0 cholecalciferol (vitamin D3) [Vitamin D3] 25 mcg (1,000 unit) Capsule 50 mcg PO DAILY RF: 0 carvedilol 25 mg Tablet 25 mg PO BID RF: 0 hydralazine 50 mg Tablet 50 mg PO TID Qty: 90 RF: 0 torsemide 20 mg Tablet 60 mg PO DAILY Qty: 90 RF: 0 omeprazole 40 mg Capsule,Delayed Release(Dr/Ec) 40 mg PO DAILY@0630 Qty: 30 RF: 0 prednisone 20 mg tablet 40 mg PO DAILY Qty: 10 RF: 0 acetaminophen [Tylenol Extra Strength] 500 mg tablet 500 mg PO Q6H PRN (Reason: pain or fever) Qty: 20 RF: 0 tramadol 50 mg tablet 2 tab PO Q8H PRN (Reason: Pain) RF: 0 zolpidem 10 mg tablet 1 tab PO BEDTIME RF: 0 Flovent HFA 110 mcg/actuation HFA aerosol inhaler 4 puff inhalation BID RF: 0 Toujeo Max U-300 SoloStar 300 unit/mL (3 mL) insulin pen 60 unit subcut DAILY Qty: 6 RF: 3 glucose [Dex4 Glucose] 4 gram tablet,chewable 16 g PO Q15M PRN (Reason: hypoglycemia) Qty: 30 RF: 6 Referrals: Nuvia Crook [facility]NAGEMENT RN [Primary Care Provider] - 2 days Interventions: ED Discharge Assessment Last Done: 02/20/21 20:16 Discharge Date/Time: 02/20/21 20:17
[2021-02-20 18:07] LABS: Anion Gap 14 (12-20); Blood Urea Nitrogen 48 mg/dL (9-16); Calcium 8.4 mg/dL (8.4-10.2); Carbon Dioxide 23 mmol/L (22-29); Chloride 109 mmol/L (96-108); Creatinine Clr Calc Pharmacy 29.7; Estimated Glomerular Filt Rate 19; Glucose Random 183 mg/dL (60-115); Potassium 4.9 mmol/L (3.3-5.1); Sodium 141 mmol/L (135-145)
[2021-02-20] MEDS: carvediloL 25 MG TABLET PO (18:28)
[2021-02-20] MEDS: hydrALAZINE HCl 50 MG TABLET PO ×2 (18:28→18:29)
[2021-02-20 18:38] LABS: Alanine Aminotransferase 26 U/L (0-40); Albumin Level 3.9 g/dL (3.5-5.0); Alkaline Phosphatase 70 U/L (39-117); Aspartate Amino Transferase 17 U/L (5-37); Bilirubin Direct < 0.2 mg/dL (0.0-0.5); Bilirubin Total 0.3 mg/dL (0.0-1.0); Magnesium 1.8 mg/dL (1.6-2.6); Total Protein 6.7 g/dL (6.5-8.0)
[2021-02-20 19:02] LABS: Troponin-I High Sensitivity 13.3 ng/L (<3.5-35.0)
[2021-02-20 19:49] LABS: Glucose Urine UA 100 MG/DL (NEG); Leukocyte Esterase Urine NEG (NEG); Nitrite Urine NEG (NEG); Specific Gravity - Urine 1.015 (1.005-1.025); Urine Blood 1+ (NEG); Urine Ketones NEG (NEG); Urine Protein 3+ MG/DL (NEG-TRACE)
[2021-02-20 19:52] LABS: Appearance Urine CLEAR; Color Urine YELLOW
[2021-02-20 20:09] LABS: RBC Urine 0-2 /HPF (0); Squamous Epithelial Cell Urine TRACE /LPF; WBC Urine 0-2 /HPF (0-4)
== END 2021-02-20 20:17 | disposition home or self-care (01) ==
PROVIDERS: Nurse Practitioner Family; Emergency Provider Internal Medicine; PCP Nurse Practitioner Primary Care
DX: I13.0 Hypertensive heart and chronic kidney disease with heart failure and stage 1 through stage 4 chronic kidney disease, or unspecified chronic kidney disease (principal); E11.22 Type 2 diabetes mellitus with diabetic chronic kidney disease; N18.9 Chronic kidney disease, unspecified; I50.9 Heart failure, unspecified; J45.909 Unspecified asthma, uncomplicated; F41.9 Anxiety disorder, unspecified; E78.5 Hyperlipidemia, unspecified; F10.10 Alcohol abuse, uncomplicated; F17.210 Nicotine dependence, cigarettes, uncomplicated; Z79.82 Long term (current) use of aspirin; Z79.02 Long term (current) use of antithrombotics/antiplatelets; Z79.899 Other long term (current) drug therapy; Z79.51 Long term (current) use of inhaled steroids; Z79.4 Long term (current) use of insulin
CPT/HCPCS: 36415; 80048; 80076; 81001; 83735; 84484; 85025; 93005; 99283; 99284

== ENCOUNTER → 2021-03-24 10:20 | Outpatient (BNVA) | payer OTHER, SELFPAY | PROVIDERS: PCP Nurse Practitioner Primary Care; Visit Provider Internal Medicine Gastroenterology | DX: K26.9 Duodenal ulcer, unspecified as acute or chronic, without hemorrhage or perforation (principal); Z79.899 Other long term (current) drug therapy | CPT/HCPCS: 99212 ==

== ENCOUNTER 2021-04-03 12:24 | Emergency (ER) | payer OTHER, SELFPAY ==
--- NOTE | ~2021-04-03 | CT_ITS ---
EXAMINATION: CT ABDOMEN AND PELVIS WITHOUT CONTRAST CLINICAL INFORMATION: Abdominal pain. Evaluate for diverticulitis versus stone. COMPARISON: Previous CT of the abdomen and pelvis January 2021 TECHNIQUE: Multidetector volumetric imaging was performed from the superior aspect of the liver through the pubic symphysis. Sagittal and coronal reformatted images were obtained on the technologist's workstation. This CT examination was performed using dose optimization techniques as appropriate, variously including the following: *Automated exposure control *Adjustment of mA and/or kV according to patient size (this includes techniques or standardized protocols for targeted exams where dose is matched to indication/reason for exam; i.e. extremities or head) *Use of iterative reconstruction technique DLP: 865 mGy-cm FINDINGS: LUNG BASES: There is left pleural thickening and calcification that is stable. There is scarring or subsegmental atelectasis in the left lower lobe that is stable. LIVER, GALLBLADDER, AND BILIARY TREE: Normal. The liver is slightly enlarged and low in attenuation suggestive of fatty infiltration. The gallbladder is unremarkable with no evidence of radiopaque gallstones, gallbladder wall thickening, or obvious pericholecystic inflammatory changes. PANCREAS: Unremarkable. SPLEEN: Unremarkable. ADRENAL GLANDS: Unremarkable. KIDNEYS AND URETERS: The kidneys are normal in size, shape, and attenuation. No hydronephrosis, hydroureter, or calculi seen. No perinephric stranding. BLADDER: Unremarkable. GASTROINTESTINAL TRACT: There is diverticulosis of the colon. There is wall thickening of the sigmoid colon and stranding of the adjacent fat suggestive of mild sigmoid diverticulitis. No evidence of obstruction, perforation or abscess is seen. Small and large bowel is otherwise unremarkable. The appendix is unremarkable. The stomach is unremarkable. The appendix is unremarkable. ABDOMINAL WALL: There is a left inguinal hernia containing fat. There are bilateral paraspinal muscle lipomas. LYMPH NODES: Normal. VASCULAR: Unremarkable. PELVIC VISCERA: Unremarkable. OSSEOUS STRUCTURES: There are degenerative changes of the spine. CT/CT abdomen pelvis wo con IMPRESSION: Mild sigmoid diverticulitis. Enlarged fatty liver. Stable left pleural thickening and calcification.
[2021-04-03 12:59] VITALS: BP 150/68; PULSE 67; RESP 18; TEMP 36.2; O2SAT 96; BMI 35.2
[2021-04-03 13:20] VITALS: BP 147/57; PULSE 63; RESP 18; TEMP 36.2; O2SAT 96
[2021-04-03 13:26] LABS: Glucose Urine UA NEG (NEG); Leukocyte Esterase Urine NEG (NEG); Nitrite Urine NEG (NEG); Urine Blood NEG (NEG); Urine Ketones NEG (NEG); Urine Protein 3+ MG/DL (NEG-TRACE)
[2021-04-03 13:28] LABS: Appearance Urine CLEAR; Color Urine YELLOW
[2021-04-03 13:40] LABS: RBC Urine 0 /HPF (0); Renal Epithelial Cells Urine 1+ /LPF; Squamous Epithelial Cell Urine TRACE /LPF; WBC Urine 0-2 /HPF (0-4)
--- NOTE | 2021-04-03 13:45 | ED_ITS ---
HPI - Abdominal Pain General Chief Complaint: Abdominal Pain <Barbara Wilson NP - Last Filed: 04/03/21 19:56> Stated Complaint: bladder pains <Barbara Wilson NP - Last Filed: 04/03/21 19:56> Time Seen by Provider: 04/03/21 13:33 <Barbara Wilson NP - Last Filed: 04/03/21 19:56> Source: patient <Barbara Wilson NP - Last Filed: 04/03/21 19:56> Mode of arrival: ambulatory <Barbara Wilson NP - Last Filed: 04/03/21 19:56> Limitations: no limitations <Barbara Wilson NP - Last Filed: 04/03/21 19:56> History of Present Illness HPI narrative: 60-year-old male with a past medical history of hypertension, diabetes here with complaints of suprapubic discomfort times 4 days. He does have some urinary frequency and urgency but denies any dysuria, hematuria, testicular pain or penile discharge. No fevers, chills, nausea, vomiting, diarrhea, constipatio n. <Barbara Wilson NP - Last Filed: 04/03/21 19:56> Related Data Home Medications: Home Medications Medication Instructions Recorded Confirmed aspirin [Aspir-81] 81 mg PO DAILY 07/25/20 02/20/21 atorvastatin 80 mg PO DAILY 07/25/20 02/20/21 carvedilol 25 mg PO BID 07/25/20 02/20/21 cholecalciferol (vitamin D3) 50 mcg PO DAILY 07/25/20 02/20/21 [Vitamin D3] fenofibrate nanocrystallized 145 mg PO DAILY 07/25/20 02/20/21 gabapentin 600 mg PO TID 07/25/20 02/20/21 oxcarbazepine 300 mg PO BID 07/25/20 02/20/21 perphenazine 4 mg PO BID 07/25/20 02/20/21 sertraline 200 mg PO DAILY 07/25/20 02/20/21 spironolactone 50 mg PO DAILY 07/25/20 02/20/21 Flovent HFA 4 puff INHALATION BID 01/23/21 02/20/21 tramadol 2 tab PO Q8H PRN 01/23/21 02/20/21 zolpidem 1 tab PO BEDTIME 01/23/21 02/20/21 Previous Rx's Medication Instructions Recorded lancets 33 gauge #100 ea 08/16/20 acetaminophen [Tylenol Extra 500 mg PO Q6H PRN #20 tab 09/01/20 Strength] lisinopril 40 mg tablet 40 mg PO QAM #30 tab 11/08/20 nifedipine 30 mg tablet,extended 120 mg PO DAILY #120 tab 11/17/20 release omeprazole 40 mg PO DAILY@0630 #30 cap 02/07/21 torsemide 60 mg PO DAILY #90 tab 02/07/21 prednisone 40 mg PO DAILY #10 tab 02/17/21 insulin aspart U-100 100 unit/mL See Rx Instructions SUBCUT TID 30 02/18/21 (3 mL) subcutaneous pen Days #30 ml glucose 4 gram chewable tablet 16 g PO Q15M PRN #30 tab 02/20/21 insulin glargine U-300 conc 300 60 unit SUBCUT DAILY #6 ml 02/20/21 unit/mL (3 mL) subcutaneous pen hydralazine 100 mg tablet 100 mg PO TID #90 tab 03/08/21 pen needle, diabetic 32 gauge x 1 ea MISCELLANEOUS .COMPLEX #100 ea 03/13/21 sucralfate 100 mg/mL oral 10 ml PO BID #1000 ml 03/24/21 suspension levofloxacin 500 mg PO DAILY 7 Days #7 tab 04/03/21 metronidazole [Flagyl] 500 mg PO BID #14 tab 04/03/21 oxycodone 5 mg PO Q8H PRN #8 tab 04/03/21 blood sugar diagnostic 1 strip MISCELLANEOUS QID #300 05/02/21 strip <Barbara Wilson NP - Last Filed: 04/03/21 19:56> Allergies/Adverse Reactions: Allergies Allergy/AdvReac Type Severity Reaction Status Date / Time No Known Allergies Allergy Verified 02/20/21 15:09 <Barbara Wilson NP - Last Filed: 04/03/21 19:56> Review of Systems Review of Systems Yes all other systems are reviewed and are negative <Barbara Wilson NP - Last Filed: 04/03/21 19:56> Constitutional: Reports no additional constitutional complaints, Denies body ache(s), Denies chills, Denies fever(s), Denies headache(s) and Denies weakness <Barbara Wilson NP - Last Filed: 04/03/21 19:56> Eyes: Reports no additional eye complaints and Denies change in vision <Barbara Wilson NP - Last Filed: 04/03/21 19:56> Reports system reviewed and no additional complaints, except as documented, Denies dizziness, Denies headache(s), Denies nasal congestion, Denies nasal discharge and Denies neck pain <Barbara Wilson NP - Last Filed: 04/03/21 19:56> Cardiovascular: Reports no additional cardiovascular complaints, Denies chest pain, Denies leg edema and Denies dyspnea <Barbara Wilson NP - Last Filed: 04/03/21 19:56> Respiratory: Reports no additional respiratory complaints, Denies cough and Denies dyspnea <Babrara Wilson NP - Last Filed: 04/03/21 19:56> Gastrointestinal: Reports no additional gastrointestinal complaints, Denies abdominal pain, Denies diarrhea, Denies nausea and Denies vomiting <Barbara Wilson NP - Last Filed: 04/03/21 19:56> Comments: Suprapubic discomfort <Barbara Wilson NP - Last Filed: 04/03/21 19:56> Genitourinary: Denies hematuria, Denies difficulty urinating, Denies dysuria, Denies flank pain, Denies penile discharge, Denies testicular mass, Denies testicular pain, Reports urinary frequency, Denies urinary hesitancy, Denies urinary incontinence and Reports urinary urgency <Barbara Wilson NP - Last Filed: 04/03/21 19:56> Musculoskeletal: Reports no additional musculoskeletal complaints, Denies back pain, Denies arthralgias, Denies joint swelling, Denies neck pain, Denies numbness and Denies tingling <Barbara Wilson NP - Last Filed: 04/03/21 19:56> Skin/Breast: Reports system reviewed and no additional complaints, except as docu and Denies rash <MARIANN Medellin Last Filed: 04/03/21 19:56> Reports system reviewed and no additional complaints, except as documented, Denies Abnormal speech present, Denies dizziness, Denies headache(s), Denies numbness, Denies tingling and Denies weakness <Barbara Wilson NP - Last Filed: 04/03/21 19:56> Physical Exam Vital Signs: Vital Signs: Last Vital Signs Temp 98 F 04/03/21 15:48 Pulse 83 04/03/21 15:48 Resp 18 04/03/21 15:48 BP 167/67 H 04/03/21 15:48 Pulse Ox 96 04/03/21 15:48 Body Mass Index 35.2 <Barbara Wilson NP - Last Filed: 04/03/21 19:56> Vital Signs: Last Vital Signs Temp 98 F 04/03/21 15:48 Pulse 83 04/03/21 15:48 Resp 18 04/03/21 15:48 BP 167/67 H 04/03/21 15:48 Pulse Ox 96 04/03/21 15:48 Body Mass Index 35.2 <Armen Anaya MD - Last Filed: 05/11/21 14:57> Const: General: cooperative, healthy appearing, comfortable and no acute distress <Barbara Wilson NP - Last Filed: 04/03/21 19:56> Orientation/consciousness: patient oriented x3 <Barbara Wilson NP - Last Filed: 04/03/21 19:56> Limitations: no limitations <Barbara Wilson NP - Last Filed: 04/03/21 19:56> HENMT: Head: Yes normal to inspection <Barbara Wilson NP - Last Filed: 04/03/21 19:56> Ears: hearing grossly normal bilaterally <Barbara Wilson NP - Last Filed: 04/03/21 19:56> General nose exam: Normal external nose present <MARIANN Medellin Last Filed: 04/03/21 19:56> Face and sinus: Yes normal facial exam <MARIANN Medellin Last Filed: 04/03/21 19:56> Mouth: Normal oral and palatal mucosa present <Barbara Wilson NP - Last Filed: 04/03/21 19:56> Throat: Yes posterior oropharynx normal <Barbara Wilson NP - Last Filed: 04/03/21 19:56> Eyes: General: appearance normal, both eyes and all related structures <Barbara Wilson NP - Last Filed: 04/03/21 19:56> Pupils: Equal, round and reactive pupils present <Barbara Wilson NP - Last Filed: 04/03/21 19:56> Neck: Neck: Yes normal visual inspection <Barbara Wilson NP - Last Filed: 04/03/21 19:56> Chest: Chest palpation & inspection: normal inspection of the chest <Barbara Wilson NP - Last Filed: 04/03/21 19:56> Resp: Effort & Inspection: normal respiratory effort <Barbara Wilson NP - Last Filed: 04/03/21 19:56> Auscultation: clear to auscultation bilaterally <Barbara Wilson NP - Last Filed: 04/03/21 19:56> Cardio: Rate: regular rate <Barbara Wilson NP - Last Filed: 04/03/21 19:56> Rhythm: regular rhythm <Barbara Wilson NP - Last Filed: 04/03/21 19:56> Peripheral pulses: Peripheral pulses 2+ throughout <Barbara Wilson NP - Last Filed: 04/03/21 19:56> GI: Inspection: Yes normal to inspection <Barbara Wilson NP - Last Filed: 04/03/21 19:56> Palpation (GI): Soft to palpation and Tenderness to palpation present (GI) suprapubicly (Moderate) <Barbara Wilson NP - Last Filed: 04/03/21 19:56> Auscultation: normal bowel sounds <Barbara Wilson NP - Last Filed: 04/03/21 19:56> : Other: Deferred exam <Barbara Wilson NP - Last Filed: 04/03/21 19:56> Back/Spine/Pelvis: Thoracic/Lumbar Spine: thoracic and lumbar spine normal to inspection <Barbara Wilson NP - Last Filed: 04/03/21 19:56> Skin: General skin exam: no rashes or lesions noted <Barbara Wilson NP - Last Filed: 04/03/21 19:56> Neuro: General: patient oriented x3, no focal motor deficits and normal sensation to monofilament <Barbara Wilson NP - Last Filed: 04/03/21 19:56> Cranial nerves: Yes Equal, round and reactive pupils present <Barbara Wilson NP - Last Filed: 04/03/21 19:56> Cognition (Neuro): normal cognition <Barbara Wilson NP - Last Filed: 04/03/21 19:56> Speech: No Abnormal speech present <Barbara Wilson NP - Last Filed: 04/03/21 19:56> Gait exam (Neuro): Normal gait present <Barbara Wilson NP - Last Filed: 04/03/21 19:56> Motor exam (neuro): 5/5 motor strength present throughout <Barbara Wilson NP - Last Filed: 04/03/21 19:56> Extrem: General: Yes normal to inspection <Barbara Wilson NP - Last Filed: 04/03/21 19:56> Course Course Course Narrative: 60-year-old male here with suprapubic discomfort the for the last 4 days. Also complaining of some urinary frequency and urgency which seems to be going on for longer. He does feel like he is able to empty his bladder and has no associated hematuria, dysuria, nausea, vomiting, diarrhea, fevers, chills. Denies testicular pain or penile discharge or rashes or lesions. On exam he has moderate suprapubic discomfort but the bladder is distended. No other abdominal pain or flank pain. No CVA tenderness. Will check UA, labs, bladder scan postvoid. 1400-postvoid bladder scan <10ml. UA negative for infection. Re-assessed patient with continued discomfort over the suprapubic region. Will check CT A/P. 1500-baseline creatinine 3.3-3.5 and baseline BUN 45. Today creatinine 3.89 and BUN 63. Slightly worsened from baseline. UA is negative. Will give normal saline bolus, check CTA/P. 1800-CT shows diverticulitis with no abscess. Afebrile. Tolerating p.o.. Pain is well controlled. Will give course of antibiotics and have follow up with primary care doctor. Patient does take tramadol for pain chronically. Will give short course of oxycodone for acute pain exception. Repeat renal function shows slight improvement. ?new normal. Patient is followed by Dr Ritchie and we discussed following up closely with him. Blood pressure 140/150 systolic. Recommended patient continue to note blood pressure at home and follow closely. Reviewed worrisome signs/sympoms with patient including hypertension, headache, fever, vomiting, severe abdominal pain when to return to the emergency department. Comfortable discharge home. <Barbara Wilson NP - Last Filed: 04/03/21 19:56> Reevaluation(s) Reevaluation #1: I have reviewed the chart <Armen Anaya MD - Last Filed: 05/11/21 14:57> MDM - Abdominal Pain MDM Narrative Medical decision making narrative: BPH, UTI, diverticulitis, renal colic <Barbara Wilson NP - Last Filed: 04/03/21 19:56> Medical Records Attestation: I reviewed the patient's medical records. <Barbara Wilson NP - Last Filed: 04/03/21 19:56> Lab Data Attestation: I reviewed the patient's lab results. <Barbara Wilson NP - Last Filed: 04/03/21 19:56> Result diagrams: : 04/03/21 14:09 04/03/21 16:40 <Barbara Wilson NP - Last Filed: 04/03/21 19:56> Labs: Lab Results 04/03/21 04/03/21 04/03/21 Range/Units 13:20 13:57 14:09 WBC 8.0 (4.8-10.8) X10*3/uL RBC 3.66 L (4.60-5.80) X10*6/uL Hgb 11.2 L (14.0-18.0) g/dl Hct 32.6 L (42-52) % MCV 89.1 (80-98) fL MCH 30.6 (27.0-33.0) pg MCHC 34.4 (31.0-36.0) g/dl RDW 12.3 (11.0-16.0) % Plt Count 137 L D (160-400) X10*3/uL MPV 12.8 H (9.4-12.4) fL Immature Gran % (Auto) 0.3 (0.0-0.4) % Neut % (Auto) 74.5 H (45-73) % Lymph % (Auto) 14.9 L (20-40) % Kend[place] % (Auto) 5.9 (2-11) % Eos % (Auto) 4.3 H (0-4) % Baso % (Auto) 0.1 (0-2) % Lymph # (Auto) 1.2 (1.2-4.9) X10*3/uL [place]all # (Auto) 0.5 (0.1-1.2) X10*3/uL Eos # (Auto) 0.3 (0.0-0.4) X10*3/uL Baso # (Auto) 0.0 (0.0-0.2) X10*3/uL Abs Immat Gran (auto) 0.02 (0.00-0.03) X10*3/uL Absolute Neuts (auto) 6.0 (2.0-8.3) X10*3/uL Absolute Nucleated RBC 0.000 (0.0-0.012) X10*3/uL Nucleated RBC % (auto) 0.0 (0.0-0.2) /100WBC Sodium (135-145) mmol/L Potassium (3.3-5.1) mmol/L Chloride (96-108) mmol/L Carbon Dioxide (22-29) mmol/L Anion Gap (12-20) BUN (9-16) mg/dL Creatinine (0.5-1.4) mg/dL Estim Creat Clear Calc Estimated GFR POC Glucose 85 (60-115) mg/dL Random Glucose (60-115) mg/dL Calcium (8.4-10.2) mg/dL Urine Color YELLOW Urine Appearance CLEAR Urine pH 6.0 (5.0-8.0) Ur Specific [place] 1.020 (1.005-1.025) Urine Protein 3+ H (NEG-TRACE) MG/DL Urine Glucose (UA) NEG (NEG) MG/DL Urine Ketones NEG (NEG) MG/DL Urine Blood NEG (NEG) Urine Nitrite NEG (NEG) Ur Leukocyte Esterase NEG (NEG) Urine RBC 0 (0) /HPF Urine WBC 0-2 (0-4) /HPF Ur Squamous Epith Cells TRACE /LPF Ur Renal Epithelial Cell 1+ /LPF Urine Bacteria NONE /LPF 04/03/21 04/03/21 Range/Units 14:09 16:40 WBC (4.8-10.8) X10*3/uL RBC (4.60-5.80) X10*6/uL Hgb (14.0-18.0) g/dl Hct (42-52) % MCV (80-98) fL MCH (27.0-33.0) pg MCHC (31.0-36.0) g/dl RDW (11.0-16.0) % Plt Count (160-400) X10*3/uL MPV (9.4-12.4) fL Immature Gran % (Auto) (0.0-0.4) % Neut % (Auto) (45-73) % Lymph % (Auto) (20-40) % Kendall % (Auto) (2-11) % Eos % (Auto) (0-4) % Baso % (Auto) (0-2) % Lymph # (Auto) (1.2-4.9) X10*3/uL Kendall # (Auto) (0.1-1.2) X10*3/uL Eos # (Auto) (0.0-0.4) X10*3/uL Baso # (Auto) (0.0-0.2) X10*3/uL Abs Immat Gran (auto) (0.00-0.03) X10*3/uL Absolute Neuts (auto) (2.0-8.3) X10*3/uL Absolute Nucleated RBC (0.0-0.012) X10*3/uL Nucleated RBC % (auto) (0.0-0.2) /100WBC Sodium 142 142 (135-145) mmol/L Potassium 3.9 D 3.9 (3.3-5.1) mmol/L Chloride 109 H 111 H (96-108) mmol/L Carbon Dioxide 25 23 (22-29) mmol/L Anion Gap 12 12 (12-20) BUN 63 H 62 H (9-16) mg/dL Creatinine 3.89 H 3.71 H (0.5-1.4) mg/dL Estim Creat Clear Calc 25.2 26.4 Estimated GFR 16 17 POC Glucose (60-115) mg/dL Random Glucose 83 D 65 (60-115) mg/dL Calcium 9.1 D 8.4 D (8.4-10.2) mg/dL Urine Color Urine Appearance Urine pH (5.0-8.0) Ur Specific [place] (1.005-1.025) Urine Protein (NEG-TRACE) MG/DL Urine Glucose (UA) (NEG) MG/DL Urine Ketones (NEG) MG/DL Urine Blood (NEG) Urine Nitrite (NEG) Ur Leukocyte Esterase (NEG) Urine RBC (0) /HPF Urine WBC (0-4) /HPF Ur Squamous Epith Cells /LPF Ur Renal Epithelial Cell /LPF Urine Bacteria /LPF <Barbara Wilson, SUPERSONIC ENGINEER - Last Filed: 04/03/21 19:56> Lab Results 04/03/21 04/03/21 04/03/21 Range/Units 13:20 13:57 14:09 WBC 8.0 (4.8-10.8) X10*3/uL RBC 3.66 L (4.60-5.80) X10*6/uL Hgb 11.2 L (14.0-18.0) g/dl Hct 32.6 L (42-52) % MCV 89.1 (80-98) fL MCH 30.6 (27.0-33.0) pg MCHC 34.4 (31.0-36.0) g/dl RDW 12.3 (11.0-16.0) % Plt Count 137 L D (160-400) X10*3/uL MPV 12.8 H (9.4-12.4) fL Immature Gran % (Auto) 0.3 (0.0-0.4) % Neut % (Auto) 74.5 H (45-73) % Lymph % (Auto) 14.9 L (20-40) % Kendall % (Auto) 5.9 (2-11) % Eos % (Auto) 4.3 H (0-4) % Baso % (Auto) 0.1 (0-2) % Lymph # (Auto) 1.2 (1.2-4.9) X10*3/uL [place] # (Auto) 0.5 (0.1-1.2) X10*3/uL Eos # (Auto) 0.3 (0.0-0.4) X10*3/uL Baso # (Auto) 0.0 (0.0-0.2) X10*3/uL Abs Immat Gran (auto) 0.02 (0.00-0.03) X10*3/uL Absolute Neuts (auto) 6.0 (2.0-8.3) X10*3/uL Absolute Nucleated RBC 0.000 (0.0-0.012) X10*3/uL Nucleated RBC % (auto) 0.0 (0.0-0.2) /100WBC Sodium (135-145) mmol/L Potassium (3.3-5.1) mmol/L Chloride (96-108) mmol/L Carbon Dioxide (22-29) mmol/L Anion Gap (12-20) BUN (9-16) mg/dL Creatinine (0.5-1.4) mg/dL Estim Creat Clear Calc Estimated GFR POC Glucose 85 (60-115) mg/dL Random Glucose (60-115) mg/dL Calcium (8.4-10.2) mg/dL Urine Color YELLOW Urine Appearance CLEAR Urine pH 6.0 (5.0-8.0) Ur Specific [place] 1.020 (1.005-1.025) Urine Protein 3+ H (NEG-TRACE) MG/DL Urine Glucose (UA) NEG (NEG) MG/DL Urine Ketones NEG (NEG) MG/DL Urine Blood NEG (NEG) Urine Nitrite NEG (NEG) Ur Leukocyte Esterase NEG (NEG) Urine RBC 0 (0) /HPF Urine WBC 0-2 (0-4) /HPF Ur Squamous Epith Cells TRACE /LPF Ur Renal Epithelial Cell 1+ /LPF Urine Bacteria NONE /LPF 04/03/21 04/03/21 Range/Units 14:09 16:40 WBC (4.8-10.8) X10*3/uL RBC (4.60-5.80) X10*6/uL Hgb (14.0-18.0) g/dl Hct (42-52) % MCV (80-98) fL MCH (27.0-33.0) pg MCHC (31.0-36.0) g/dl RDW (11.0-16.0) % Plt Count (160-400) X10*3/uL MPV (9.4-12.4) fL Immature Gran % (Auto) (0.0-0.4) % Neut % (Auto) (45-73) % Lymph % (Auto) (20-40) % [place] % (Auto) (2-11) % Eos % (Auto) (0-4) % Baso % (Auto) (0-2) % Lymph # (Auto) (1.2-4.9) X10*3/uL [place] # (Auto) (0.1-1.2) X10*3/uL Eos # (Auto) (0.0-0.4) X10*3/uL Baso # (Auto) (0.0-0.2) X10*3/uL Abs Immat Gran (auto) (0.00-0.03) X10*3/uL Absolute Neuts (auto) (2.0-8.3) X10*3/uL Absolute Nucleated RBC (0.0-0.012) X10*3/uL Nucleated RBC % (auto) (0.0-0.2) /100WBC Sodium 142 142 (135-145) mmol/L Potassium 3.9 D 3.9 (3.3-5.1) mmol/L Chloride 109 H 111 H (96-108) mmol/L Carbon Dioxide 25 23 (22-29) mmol/L Anion Gap 12 12 (12-20) BUN 63 H 62 H (9-16) mg/dL Creatinine 3.89 H 3.71 H (0.5-1.4) mg/dL Estim Creat Clear Calc 25.2 26.4 Estimated GFR 16 17 POC Glucose (60-115) mg/dL Random Glucose 83 D 65 (60-115) mg/dL Calcium 9.1 D 8.4 D (8.4-10.2) mg/dL Urine Color Urine Appearance Urine pH (5.0-8.0) Ur Specific [place] (1.005-1.025) Urine Protein (NEG-TRACE) MG/DL Urine Glucose (UA) (NEG) MG/DL Urine Ketones (NEG) MG/DL Urine Blood (NEG) Urine Nitrite (NEG) Ur Leukocyte Esterase (NEG) Urine RBC (0) /HPF Urine WBC (0-4) /HPF Ur Squamous Epith Cells /LPF Ur Renal Epithelial Cell /LPF Urine Bacteria /LPF <Armen Anaya MD - Last Filed: 05/11/21 14:57> Imaging Data CT scan - abdomen: Attestation: I personally reviewed and interpreted this imaging study as follows: <Barbara Wilson NP - Last Filed: 04/03/21 19:56> Radiologist's impression: EXAMINATION: CT ABDOMEN AND PELVIS WITHOUT CONTRAST CLINICAL INFORMATION: Abdominal pain. Evaluate for diverticulitis versus stone. COMPARISON: Previous CT of the abdomen and pelvis January 2021 TECHNIQUE: Multidetector volumetric imaging was performed from the superior aspect of the liver through the pubic symphysis. Sagittal and coronal reformatted images were obtained on the technologist's workstation. This CT examination was performed using dose optimization techniques as appropriate, variously including the following: *Automated exposure control *Adjustment of mA and/or kV according to patient size (this includes techniques or standardized protocols for targeted exams where dose is matched to indication/reason for exam; i.e. extremities or head) *Use of iterative reconstruction technique DLP: 865 mGy-cm FINDINGS: LUNG BASES: There is left pleural thickening and calcification that is stable. There is scarring or subsegmental atelectasis in the left lower lobe that is stable. LIVER, GALLBLADDER, AND BILIARY TREE: Normal. The liver is slightly enlarged and low in attenuation suggestive of fatty infiltration. The gallbladder is unremarkable with no evidence of radiopaque gallstones, gallbladder wall thickening, or obvious pericholecystic inflammatory changes. PANCREAS: Unremarkable. SPLEEN: Unremarkable. ADRENAL GLANDS: Unremarkable. KIDNEYS AND URETERS: The kidneys are normal in size, shape, and attenuation. No hydronephrosis, hydroureter, or calculi seen. No perinephric stranding. BLADDER: Unremarkable. GASTROINTESTINAL TRACT: There is diverticulosis of the colon. There is wall thickening of the sigmoid colon and stranding of the adjacent fat suggestive of mild sigmoid diverticulitis. No evidence of obstruction, perforation or abscess is seen. Small and large bowel is otherwise unremarkable. The appendix is unremarkable. The stomach is unremarkable. The appendix is unremarkable. ABDOMINAL WALL: There is a left inguinal hernia containing fat. There are bilateral paraspinal muscle lipomas. LYMPH NODES: Normal. VASCULAR: Unremarkable. PELVIC VISCERA: Unremarkable. OSSEOUS STRUCTURES: There are degenerative changes of the spine. CT/CT abdomen pelvis wo con IMPRESSION: Mild sigmoid diverticulitis. Enlarged fatty liver. Stable left pleural thickening and calcification. <Barbara Wilson NP - Last Filed: 04/03/21 19:56> Discharge Plan Discharge Clinical Impression: Diverticulitis, CKD (chronic kidney disease) <Barbara Wilson NP - Last Filed: 04/03/21 19:56> Patient Disposition: Home, Self-Care <Barbara Wilson NP - Last Filed: 04/03/21 19:56> Instructions: Diverticulitis (ED), Chronic Kidney Disease (ED) <Barbara Wilson NP - Last Filed: 04/03/21 19:56> Additional Instructions: Low residue diet Increase fluids, rest Your kidney function was worsening today. you need to follow-up with your nephrology doctor to discuss this Return for increasing pain, fever >100.4 and more then two vomiting episodes <Barbara Wilson NP - Last Filed: 04/03/21 19:56> Prescriptions: New metronidazole [Flagyl] 500 mg tablet 500 mg PO BID Qty: 14 RF: 0 levofloxacin 500 mg tablet 500 mg PO DAILY 7 Days Qty: 7 RF: 0 oxycodone 5 mg tablet 5 mg PO Q8H PRN (Reason: pain) Qty: 8 RF: 0 No Action (DME) lancets [TRUEplus Lancets] 33 gauge misc See Rx Instructions .ROUTE .MEDSUPPLY Qty: 100 RF: 11 lisinopril 40 mg tablet 40 mg PO QAM Qty: 30 RF: 6 nifedipine 30 mg tablet extended release 120 mg PO DAILY Qty: 120 RF: 5 insulin aspart U-100 [Novolog Flexpen U-100 Insulin] 100 unit/mL (3 mL) insulin pen See Rx Instructions subcut TID 30 Days Qty: 30 RF: 0 hydralazine 100 mg tablet 100 mg PO TID Qty: 90 RF: 2 pen needle, diabetic [Pentips] 32 gauge x 5/32 needle 1 ea miscellaneous .COMPLEX Qty: 100 RF: 6 blood sugar diagnostic [FreeStyle Lite Strips] Strip 1 strip miscellaneous QID Qty: 300 RF: 11 atorvastatin 80 mg Tablet 80 mg PO DAILY RF: 0 sertraline 100 mg Tablet 200 mg PO DAILY RF: 0 aspirin [Aspir-81] 81 mg Tablet,Delayed Release (Dr/Ec) 81 mg PO DAILY RF: 0 fenofibrate nanocrystallized 145 mg Tablet 145 mg PO DAILY RF: 0 gabapentin 600 mg Tablet 600 mg PO TID RF: 0 oxcarbazepine 300 mg Tablet 300 mg PO BID RF: 0 spironolactone 25 mg Tablet 50 mg PO DAILY RF: 0 perphenazine 4 mg Tablet 4 mg PO BID RF: 0 cholecalciferol (vitamin D3) [Vitamin D3] 25 mcg (1,000 unit) Capsule 50 mcg PO DAILY RF: 0 carvedilol 25 mg Tablet 25 mg PO BID RF: 0 torsemide 20 mg Tablet 60 mg PO DAILY Qty: 90 RF: 0 omeprazole 40 mg Capsule,Delayed Release(Dr/Ec) 40 mg PO DAILY@0630 Qty: 30 RF: 0 prednisone 20 mg tablet 40 mg PO DAILY Qty: 10 RF: 0 acetaminophen [Tylenol Extra Strength] 500 mg tablet 500 mg PO Q6H PRN (Reason: pain or fever) Qty: 20 RF: 0 tramadol 50 mg tablet 2 tab PO Q8H PRN (Reason: Pain) RF: 0 zolpidem 10 mg tablet 1 tab PO BEDTIME RF: 0 Flovent HFA 110 mcg/actuation HFA aerosol inhaler 4 puff inhalation BID RF: 0 Toujeo Max U-300 SoloStar 300 unit/mL (3 mL) insulin pen 60 unit subcut DAILY Qty: 6 RF: 3 glucose [Dex4 Glucose] 4 gram tablet,chewable 16 g PO Q15M PRN (Reason: hypoglycemia) Qty: 30 RF: 6 sucralfate [Carafate] 100 mg/mL suspension 10 ml PO BID Qty: 1000 RF: 0 <Barbara Wilson NP - Last Filed: 04/03/21 19:56> Referrals: Physician,Unknown [Primary Care Provider] - 2 days <Barbara Wilson NP - Last Filed: 04/03/21 19:56> Interventions: ED Discharge Assessment Last Done: 04/03/21 17:50 <Barbara Wilson NP - Last Filed: 04/03/21 19:56> Discharge Date/Time: 04/03/21 17:51 <Barbara Wilson NP - Last Filed: 04/03/21 19:56> Print Language: Slovak <Barbara Wilson NP - Last Filed: 04/03/21 19:56> [facility] Past Medical History Attestation statement: The following information was validated with the patient. <Barbara Wilson NP - Last Filed: 04/03/21 19:56> Source: old records reviewed and nursing notes reviewed <Barbara Wilson NP - Last Filed: 04/03/21 19:56> Medical History: Medical History Abnormal biopsy of kidney Anxiety Asthma CHF (congestive heart failure) Chronic kidney disease (CKD) Chronic kidney disease, stage 4 (severe) COPD (chronic obstructive pulmonary disease) Depression Depression with anxiety Diabetes mellitus with hyperglycemia, with long-term current use of insulin Diverticulitis Elevated cholesterol Erectile dysfunction History of alcohol abuse History of headache HTN (hypertension) Hx of pancreatitis Hypertension Hypertensive crisis Hypertriglyceridemia On beta doron at home Pancreatitis Peptic ulcer Proteinuria Sleep apnea Type 2 diabetes mellitus with chronic kidney disease Type 2 diabetes mellitus with hyperglycemia, with long-term current use of insulin Type 2 diabetes mellitus with polyneuropathy <Barbara Wilson NP - Last Filed: 04/03/21 19:56> Surgical History: Surgical History Hx of colonoscopy Hx of right inguinal hernia repair <Barbara Wilson NP - Last Filed: 04/03/21 19:56> Family History Family History: Family History Mother Diabetes <Barbara Wilson NP - Last Filed: 04/03/21 19:56> Social History Social History: Social History Household Members: None Housing: Apartment Do you presently have visiting nurse or other home services: No Alcohol intake: never Patient Tobacco Use Status: Current everyday Tobacco user Cigarettes Per Day: 4 Years Smoked: 30 Second Hand Smoke Exposure: Yes service: No Current occupational status: retired <Barbara Wilson NP - Last Filed: 04/03/21 19:56>
[2021-04-03] MEDS: Ketorolac Tromethamine 60 MG/2 ML VIAL IM (13:52)
[2021-04-03 14:00] LABS: Glucose, Whole Blood 85 mg/dL (60-115)
[2021-04-03 14:15] LABS: MANUAL DIFF FLAG NO
[2021-04-03 14:23] LABS: Basophils Percent Auto 0.1 % (0-2); Eosinophils Absolute Auto 0.3 X10*3/uL (0.0-0.4); Eosinophils Percent Auto 4.3 % (0-4); Hematocrit 32.6 % (42-52); Hemoglobin 11.2 g/dl (14.0-18.0); Imm Gran Abs Auto 0.02 X10*3/uL (0.00-0.03); Imm Gran Pct Auto 0.3 % (0.0-0.4); Lymphocytes Absolute Auto 1.2 X10*3/uL (1.2-4.9); Lymphocytes Percent Auto 14.9 % (20-40); Mean Corpuscular HGB Conc 34.4 g/dl (31.0-36.0); Mean Corpuscular Hemoglobin 30.6 pg (27.0-33.0); Mean Corpuscular Volume 89.1 fL (80-98); Mean Platelet Volume 12.8 fL (9.4-12.4); Monocytes Absolute Auto 0.5 X10*3/uL (0.1-1.2); Monocytes Percent Auto 5.9 % (2-11); Neutrophils Percent Auto 74.5 % (45-73); Platelet Count 137 X10*3/uL (160-400); Red Blood Count 3.66 X10*6/uL (4.60-5.80); Red Cell Distribution Width 12.3 % (11.0-16.0)
[2021-04-03 14:43] LABS: Anion Gap 12 (12-20); Blood Urea Nitrogen 63 mg/dL (9-16); Calcium 9.1 mg/dL (8.4-10.2); Carbon Dioxide 25 mmol/L (22-29); Chloride 109 mmol/L (96-108); Creatinine Clr Calc Pharmacy 25.2; Estimated Glomerular Filt Rate 16; Glucose Random 83 mg/dL (60-115); Potassium 3.9 mmol/L (3.3-5.1); Sodium 142 mmol/L (135-145)
[2021-04-03] MEDS: 0.9 % Sodium Chloride 1,000 ML 999 ML IV (15:04)
[2021-04-03 15:48] VITALS: BP 167/67; PULSE 83; RESP 18; TEMP 36.6; O2SAT 96
[2021-04-03] MEDS: oxyCODONE HCl Immed Release 5 MG TABLET PO (16:05)
[2021-04-03] MEDS: Tamsulosin HCL 0.4 MG CAPSULE 0.8 MG PO (16:05)
[2021-04-03 17:24] LABS: Anion Gap 12 (12-20); Blood Urea Nitrogen 62 mg/dL (9-16); Carbon Dioxide 23 mmol/L (22-29); Chloride 111 mmol/L (96-108); Creatinine Clr Calc Pharmacy 26.4; Estimated Glomerular Filt Rate 17; Glucose Random 65 mg/dL (60-115); Potassium 3.9 mmol/L (3.3-5.1); Sodium 142 mmol/L (135-145)
[2021-04-03 17:32] LABS: Calcium 8.4 mg/dL (8.4-10.2)
== END 2021-04-03 17:51 | disposition home or self-care (01) ==
PROVIDERS: Nurse Practitioner Family; Emergency Provider Emergency Medicine
DX: R10.9 Unspecified abdominal pain (principal)
CPT/HCPCS: 36415; 51702; 74176; 80048; 81001; 82947; 85025; 96365; 96372; 99285; J1885

== ENCOUNTER 2021-04-12 08:22 | Outpatient (REF) | payer OTHER, SELFPAY ==
[2021-04-13 14:17] LABS: H Pylori Breath Test NOT DETECTED (NOT DETECTED)
== END 2021-04-12 08:23 | disposition home or self-care (01) ==
LOC: HO.LNP 08:22
PROVIDERS: PCP Nurse Practitioner Primary Care; Referring Provider Nurse Practitioner Primary Care; Visit Provider Internal Medicine Gastroenterology
DX: Z87.19 Personal history of other diseases of the digestive system (principal)
CPT/HCPCS: 83013

== ENCOUNTER → 2021-05-22 13:08 | Outpatient (BNVA) | payer OTHER, SELFPAY | PROVIDERS: PCP Nurse Practitioner Primary Care; Visit Provider Nurse Practitioner Gerontology | DX: E11.65 Type 2 diabetes mellitus with hyperglycemia (principal); E11.42 Type 2 diabetes mellitus with diabetic polyneuropathy; E11.22 Type 2 diabetes mellitus with diabetic chronic kidney disease; I12.9 Hypertensive chronic kidney disease with stage 1 through stage 4 chronic kidney disease, or unspecified chronic kidney disease; N18.4 Chronic kidney disease, stage 4 (severe); E78.1 Pure hyperglyceridemia; Z79.4 Long term (current) use of insulin | CPT/HCPCS: 82947; 99212 ==

== ENCOUNTER 2021-05-31 11:44 | Emergency (ER) | payer OTHER, SELFPAY ==
--- NOTE | ~2021-05-31 | CT_ITS ---
EXAMINATION: CT ABDOMEN AND PELVIS WITHOUT CONTRAST CLINICAL INFORMATION: Lower quadrant pain. History diverticulitis. COMPARISON: CT abdomen and pelvis 04/03/2021 TECHNIQUE: Multidetector volumetric imaging was performed from the superior aspect of the liver through the pubic symphysis. Sagittal and coronal reformatted images were obtained on the technologist's workstation. This CT examination was performed using dose optimization techniques as appropriate, variously including the following: *Automated exposure control *Adjustment of mA and/or kV according to patient size (this includes techniques or standardized protocols for targeted exams where dose is matched to indication/reason for exam; i.e. extremities or head) *Use of iterative reconstruction technique DLP: 824 mGy-cm FINDINGS: LUNG BASES: There is stable mild smooth pleural thickening left posterior base with calcifications similar to previous exam. LIVER, GALLBLADDER, AND BILIARY TREE: The liver is mildly enlarged measuring 21 cm in length similar to prior study. There is mild diffuse hepatic steatosis. No focal hepatic parenchymal lesion or intrahepatic ductal dilatation. The gallbladder is unremarkable with no evidence of radiopaque gallstones, gallbladder wall thickening, or obvious pericholecystic inflammatory changes. PANCREAS: Unremarkable. SPLEEN: Within normal size, 12.3 cm and homogeneous. Tiny splenule again noted left upper quadrant. ADRENAL GLANDS: Unremarkable. KIDNEYS AND URETERS: The kidneys are normal in size and cortical thickness. There are no urinary tract calculi, hydronephrosis, or perinephric stranding. BLADDER: Unremarkable. GASTROINTESTINAL TRACT: There are focal inflammatory changes in the region of the mid sigmoid in area of diverticula and similar area to recent diverticulitis. Inflammation is slightly more prominent. There is no pneumatosis, free air, proximal obstruction, ascites, or fluid collection. The appendix is normal. ABDOMINAL WALL: Fat-containing left inguinal hernia, stable LYMPH NODES: No interval lymphadenopathy. There are some small nodes seen retroperitoneal left periaortic region and left external iliac and left groin within normal size. VASCULAR: Unremarkable. PELVIC VISCERA: No additional findings. OSSEOUS STRUCTURES: Unremarkable. CT/CT abdomen pelvis wo con IMPRESSION: Diverticulitis mid sigmoid colon, slightly more prominent when compared with prior exam 04/03/2021. No proximal obstruction, pneumatosis, free air, ascites, or fluid collection.
[2021-05-31 11:56] VITALS: BP 172/67; PULSE 64; RESP 16; TEMP 36.8; O2SAT 98; BMI 35.5
--- NOTE | 2021-05-31 12:51 | ED.ABDPAIN ---
HPI - Abdominal Pain General Chief Complaint: Abdominal Pain Stated Complaint: abd pain Time Seen by Provider: 05/31/21 12:49 Source: patient Mode of arrival: ambulatory Limitations: no limitations History of Present Illness HPI narrative: 3 days of low abdominal pain suprapubic. No n/v/d. No dysuria, no fever, no hematuria. patient had hernia surgery when he was younger. Last BM this morning and normal. patient with a prior history of diverticulitis MD elicited complaint: abdominal pain Pertinent past history: diverticulitis Onset (ago): day(s) Pain Consistency: constant Severity: moderate Quality: fullness Radiation: none Related Data Home Medications Medication Instructions Recorded Confirmed aspirin 81 mg tablet,delayed 81 mg PO DAILY 07/25/20 05/22/21 release (Aspir-) atorvastatin 80 mg tablet 80 mg PO DAILY 07/25/20 05/22/21 carvedilol 25 mg tablet 25 mg PO BID 07/25/20 05/22/21 cholecalciferol (vitamin D3) 25 50 mcg PO DAILY 07/25/20 05/22/21 mcg (1,000 unit) capsule (Vitamin D3) fenofibrate nanocrystallized 145 145 mg PO DAILY 07/25/20 05/22/21 mg tablet gabapentin 600 mg tablet 600 mg PO TID 07/25/20 05/22/21 oxcarbazepine 300 mg tablet 300 mg PO BID 07/25/20 05/22/21 perphenazine 4 mg tablet 4 mg PO BID 07/25/20 05/22/21 sertraline 100 mg tablet 200 mg PO DAILY 07/25/20 05/22/21 spironolactone 25 mg tablet 50 mg PO DAILY 07/25/20 05/22/21 fluticasone propionate 110 4 puff INHALATION BID 01/23/21 05/22/21 mcg/actuation HFA aerosol inhaler (Flovent HFA) tramadol 50 mg tablet 2 tab PO Q8H PRN 01/23/21 05/22/21 zolpidem 10 mg tablet 1 tab PO BEDTIME 01/23/21 05/22/21 Previous Rx's Medication Instructions Recorded lancets 33 gauge (TRUEplus Lancets) #100 ea 08/16/20 acetaminophen 500 mg tablet 500 mg PO Q6H PRN #20 tab 09/01/20 (Tylenol Extra Strength) lisinopril 40 mg tablet 40 mg PO QAM #30 tab 11/08/20 omeprazole 40 mg capsule,delayed 40 mg PO DAILY@0630 #30 cap 02/07/21 release torsemide 20 mg tablet 60 mg PO DAILY #90 tab 02/07/21 prednisone 20 mg tablet 40 mg PO DAILY #10 tab 02/17/21 insulin aspart U-100 100 unit/mL See Rx Instructions SUBCUT TID 30 02/18/21 (3 mL) subcutaneous pen (Novolog Days #30 ml Flexpen U-100 Insulin aspart) glucose 4 gram chewable tablet 16 g PO Q15M PRN #30 tab 02/20/21 (Dex4 Glucose) insulin glargine U-300 conc 300 60 unit SUBCUT DAILY #6 ml 02/20/21 unit/mL (3 mL) subcutaneous pen (Toujeo Max U-300 SoloStar) pen needle, diabetic 32 gauge x 1 ea MISCELLANEOUS .COMPLEX #100 ea 03/13/21 (Pentips) sucralfate 100 mg/mL oral 10 ml PO BID #1000 ml 03/24/21 suspension (Carafate) levofloxacin 500 mg tablet 500 mg PO DAILY 7 Days #7 tab 04/03/21 metronidazole 500 mg tablet 500 mg PO BID #14 tab 04/03/21 (Flagyl) blood sugar diagnostic (FreeStyle 1 strip MISCELLANEOUS QID #300 05/02/21 Lite Strips) strip hydralazine 100 mg tablet 100 mg PO TID 90 Days #270 tab 05/18/21 nifedipine 30 mg tablet,extended 120 mg PO DAILY 90 Days #360 tab 05/29/21 release levofloxacin 500 mg tablet 500 mg PO DAILY #10 tab 05/31/21 metronidazole 500 mg tablet 500 mg PO TID #30 tab 05/31/21 (Flagyl) Allergies Allergy/AdvReac Type Severity Reaction Status Date / Time No Known Allergies Allergy Verified 05/31/21 11:56 Review of Systems Constitutional: Reports no additional constitutional complaints Eyes: Reports no additional eye complaints Denies dizziness Cardiovascular: Reports no additional cardiovascular complaints Respiratory: Reports as per HPI Gastrointestinal: Reports no additional gastrointestinal complaints Musculoskeletal: Reports no additional musculoskeletal complaints Skin/Breast: Denies rash Reports system reviewed and no additional complaints, except as documented, Denies dizziness and Denies Sensory deficit (Neuro) Psychiatric: Denies anxiety Physical Exam Vital Signs: Vital Signs: Last Vital Signs Temp 98.2 F 05/31/21 11:56 Pulse 55 05/31/21 14:12 Resp 16 05/31/21 14:12 BP 182/76 H 05/31/21 14:12 Pulse Ox 100 05/31/21 14:12 Body Mass Index 35.5 Const: General: healthy appearing Nutritional Appearance: obese Orientation/consciousness: oriented to person and patient oriented x3 Limitations: no limitations HENMT: Head: Yes normal to inspection Ears: external ears normal General nose exam: Normal external nose present Mouth: Normal oral and palatal mucosa present and oropharynx normal Throat: Yes posterior oropharynx normal Eyes: General: appearance normal, both eyes and all related structures Neck: Other: supple Neck: Yes normal visual inspection Chest: Chest palpation & inspection: normal inspection of the chest Resp: Auscultation: clear to auscultation bilaterally Cardio: Jugular venous distension: no JVD Rate: regular rate Rhythm: regular rhythm Heart sounds: S1 normal heart sound present and S2 normal heart sound present GI: Other: lower abdominal pain left greater than right Auscultation: normal bowel sounds : General: Yes no CVA tenderness Back/Spine/Pelvis: Back: no CVA tenderness Skin: General skin exam: no rashes or lesions noted Neuro: General: oriented to person and patient oriented x3 Cranial nerves: Yes CN's II-XII intact bilaterally Motor exam (neuro): 5/5 motor strength present throughout Sensory Exam: No Sensory deficit (Neuro) Extrem: General: Yes normal to inspection Psych: Appearance: grossly normal Course Reevaluation(s) Reevaluation #1: patient with history and physical and CT scan consistent with diverticulitis. the only concern is the increase in his creatinine which he will follow with Dr. Ritchie. Will dc on levaquin and flagyl and fluid hydration Time: 15:41 MDM - Abdominal Pain Lab Data Result diagrams: 05/31/21 14:02 05/31/21 14:02 Labs: Lab Results 05/31/21 05/31/21 05/31/21 Range/Units 13:41 14:02 14:02 WBC 9.5 (4.8-10.8) X10*3/uL RBC 3.32 L (4.60-5.80) X10*6/uL Hgb 10.2 L (14.0-18.0) g/dl Hct 28.6 L (42-52) % MCV 86.1 (80-98) fL MCH 30.7 (27.0-33.0) pg MCHC 35.7 (31.0-36.0) g/dl RDW 12.6 (11.0-16.0) % Plt Count 166 (160-400) X10*3/uL MPV 11.3 (9.4-12.4) fL Immature Gran % (Auto) 0.3 (0.0-0.4) % Neut % (Auto) 76.8 H (45-73) % Lymph % (Auto) 12.8 L (20-40) % [place] % (Auto) 6.2 (2-11) % Eos % (Auto) 3.7 (0-4) % Baso % (Auto) 0.2 (0-2) % Lymph # (Auto) 1.2 (1.2-4.9) X10*3/uL [place] # (Auto) 0.6 (0.1-1.2) X10*3/uL Eos # (Auto) 0.4 (0.0-0.4) X10*3/uL Baso # (Auto) 0.0 (0.0-0.2) X10*3/uL Abs Immat Gran (auto) 0.03 (0.00-0.03) X10*3/uL Absolute Neuts (auto) 7.3 (2.0-8.3) X10*3/uL Absolute Nucleated RBC 0.000 (0.0-0.012) X10*3/uL Nucleated RBC % (auto) 0.0 (0.0-0.2) /100WBC Sodium 141 (135-145) mmol/L Potassium 4.2 (3.3-5.1) mmol/L Chloride 106 (96-108) mmol/L Carbon Dioxide 27 (22-29) mmol/L Anion Gap 12 (12-20) BUN 56 H (9-16) mg/dL Creatinine 4.45 H* (0.5-1.4) mg/dL Estim Creat Clear Calc 22.8 Estimated GFR 14 Random Glucose 94 D (60-115) mg/dL Calcium 8.7 (8.4-10.2) mg/dL Total Bilirubin 0.3 (0.0-1.0) mg/dL Direct Bilirubin < 0.2 (0.0-0.5) mg/dL AST 24 D (5-37) U/L ALT 25 (0-40) U/L Alkaline Phosphatase 61 (39-117) U/L Total Protein 7.2 (6.5-8.0) g/dL Albumin 4.2 (3.5-5.0) g/dL Urine Color YELLOW Urine Appearance CLEAR Urine pH 6.0 (5.0-8.0) Ur Specific [place] 1.020 (1.005-1.025) Urine Protein 2+ H (NEG-TRACE) MG/DL Urine Glucose (UA) NEG (NEG) MG/DL Urine Ketones NEG (NEG) MG/DL Urine Blood TRACE (NEG) Urine Nitrite NEG (NEG) Ur Leukocyte Esterase NEG (NEG) Urine RBC 0-2 (0) /HPF Urine WBC 0 (0-4) /HPF Ur Squamous Epith Cells NONE /LPF Urine Bacteria NONE /LPF Imaging Data CT scan - abdomen: Radiologist's impression: IMPRESSION: Diverticulitis mid sigmoid colon, slightly more prominent when compared with prior exam 04/03/2021. No proximal obstruction, pneumatosis, free air, ascites, or fluid collection.? Discharge Plan Discharge Clinical Impression: Diverticulitis Renal failure (ARF), acute on chronic Qualifiers: Acute renal failure type: unspecified Chronic kidney disease stage: stage 4 (severe) Qualified Code(s): N17.9 - Acute kidney failure, unspecified Patient Disposition: Home, Self-Care Instructions: Diverticulitis (ED), Chronic Kidney Disease (ED) Additional Instructions: clear liquid diet for three days, must see Dr. Ritchie as soon as possible Prescriptions: New levofloxacin 500 mg tablet 500 mg PO DAILY Qty: 10 RF: 0 metronidazole [Flagyl] 500 mg tablet 500 mg PO TID Qty: 30 RF: 0 No Action (DME) lancets [TRUEplus Lancets] 33 gauge misc See Rx Instructions .ROUTE .MEDSUPPLY Qty: 100 RF: 11 lisinopril 40 mg tablet 40 mg PO QAM Qty: 30 RF: 6 insulin aspart U-100 [Novolog Flexpen U-100 Insulin] 100 unit/mL (3 mL) insulin pen See Rx Instructions subcut TID 30 Days Qty: 30 RF: 0 pen needle, diabetic [Pentips] 32 gauge x 5/32 needle 1 ea miscellaneous .COMPLEX Qty: 100 RF: 6 blood sugar diagnostic [FreeStyle Lite Strips] Strip 1 strip miscellaneous QID Qty: 300 RF: 11 hydralazine 100 mg tablet 100 mg PO TID 90 Days Qty: 270 RF: 0 nifedipine 30 mg tablet extended release 120 mg PO DAILY 90 Days Qty: 360 RF: 0 atorvastatin 80 mg Tablet 80 mg PO DAILY RF: 0 sertraline 100 mg Tablet 200 mg PO DAILY RF: 0 aspirin [Aspir-81] 81 mg Tablet,Delayed Release (Dr/Ec) 81 mg PO DAILY RF: 0 fenofibrate nanocrystallized 145 mg Tablet 145 mg PO DAILY RF: 0 gabapentin 600 mg Tablet 600 mg PO TID RF: 0 oxcarbazepine 300 mg Tablet 300 mg PO BID RF: 0 spironolactone 25 mg Tablet 50 mg PO DAILY RF: 0 perphenazine 4 mg Tablet 4 mg PO BID RF: 0 cholecalciferol (vitamin D3) [Vitamin D3] 25 mcg (1,000 unit) Capsule 50 mcg PO DAILY RF: 0 carvedilol 25 mg Tablet 25 mg PO BID RF: 0 torsemide 20 mg Tablet 60 mg PO DAILY Qty: 90 RF: 0 omeprazole 40 mg Capsule,Delayed Release(Dr/Ec) 40 mg PO DAILY@0630 Qty: 30 RF: 0 prednisone 20 mg tablet 40 mg PO DAILY Qty: 10 RF: 0 metronidazole [Flagyl] 500 mg tablet 500 mg PO BID Qty: 14 RF: 0 levofloxacin 500 mg tablet 500 mg PO DAILY 7 Days Qty: 7 RF: 0 acetaminophen [Tylenol Extra Strength] 500 mg tablet 500 mg PO Q6H PRN (Reason: pain or fever) Qty: 20 RF: 0 tramadol 50 mg tablet 2 tab PO Q8H PRN (Reason: Pain) RF: 0 zolpidem 10 mg tablet 1 tab PO BEDTIME RF: 0 Flovent HFA 110 mcg/actuation HFA aerosol inhaler 4 puff inhalation BID RF: 0 Toujeo Max U-300 SoloStar 300 unit/mL (3 mL) insulin pen 60 unit subcut DAILY Qty: 6 RF: 3 glucose [Dex4 Glucose] 4 gram tablet,chewable 16 g PO Q15M PRN (Reason: hypoglycemia) Qty: 30 RF: 6 sucralfate [Carafate] 100 mg/mL suspension 10 ml PO BID Qty: 1000 RF: 0 Referrals: Renard Ritchie MD [Physician] - 2 days Nuvia Crook NP [Primary Care Provider] - 2 days [facility] Past Medical History Medical History Abnormal biopsy of kidney Anxiety Asthma CHF (congestive heart failure) Chronic kidney disease (CKD) Chronic kidney disease, stage 4 (severe) COPD (chronic obstructive pulmonary disease) Depression Depression with anxiety Diabetes mellitus with hyperglycemia, with long-term current use of insulin Diverticulitis Elevated cholesterol Erectile dysfunction History of alcohol abuse History of headache HTN (hypertension) Hx of pancreatitis Hypertension Hypertensive crisis Hypertriglyceridemia On beta doron at home Pancreatitis Peptic ulcer Proteinuria Sleep apnea Type 2 diabetes mellitus with chronic kidney disease Type 2 diabetes mellitus with hyperglycemia, with long-term current use of insulin Type 2 diabetes mellitus with polyneuropathy Surgical History Hx of colonoscopy Hx of right inguinal hernia repair Family History Family History Mother Diabetes Social History Social History Household Members: None Housing: Apartment Do you presently have visiting nurse or other home services: No Alcohol intake: never Patient Tobacco Use Status: Former Tobacco user Cigarettes Per Day: 4 Years Smoked: 30 Second Hand Smoke Exposure: Yes Advance Directives: No Advance Directives Information Provided: No service: No Current occupational status: retired
[2021-05-31 13:47] LABS: Glucose Urine UA NEG (NEG); Leukocyte Esterase Urine NEG (NEG); Nitrite Urine NEG (NEG); UACC Culture Trigger NO; Urine Blood TRACE (NEG); Urine Ketones NEG (NEG); Urine Protein 2+ MG/DL (NEG-TRACE)
[2021-05-31 13:52] LABS: Appearance Urine CLEAR; Color Urine YELLOW
[2021-05-31 13:54] LABS: RBC Urine 0-2 /HPF (0); WBC Urine 0 /HPF (0-4)
[2021-05-31 14:07] LABS: MANUAL DIFF FLAG NO
[2021-05-31 14:08] LABS: Basophils Percent Auto 0.2 % (0-2); Eosinophils Absolute Auto 0.4 X10*3/uL (0.0-0.4); Eosinophils Percent Auto 3.7 % (0-4); Hematocrit 28.6 % (42-52); Hemoglobin 10.2 g/dl (14.0-18.0); Imm Gran Abs Auto 0.03 X10*3/uL (0.00-0.03); Imm Gran Pct Auto 0.3 % (0.0-0.4); Lymphocytes Absolute Auto 1.2 X10*3/uL (1.2-4.9); Lymphocytes Percent Auto 12.8 % (20-40); Mean Corpuscular HGB Conc 35.7 g/dl (31.0-36.0); Mean Corpuscular Hemoglobin 30.7 pg (27.0-33.0); Mean Corpuscular Volume 86.1 fL (80-98); Mean Platelet Volume 11.3 fL (9.4-12.4); Monocytes Absolute Auto 0.6 X10*3/uL (0.1-1.2); Monocytes Percent Auto 6.2 % (2-11); Neutrophils Absolute Auto 7.3 X10*3/uL (2.0-8.3); Neutrophils Percent Auto 76.8 % (45-73); Platelet Count 166 X10*3/uL (160-400); Red Blood Count 3.32 X10*6/uL (4.60-5.80); Red Cell Distribution Width 12.6 % (11.0-16.0); White Blood Count 9.5 X10*3/uL (4.8-10.8)
[2021-05-31 14:12] VITALS: BP 182/76; PULSE 55; RESP 16; O2SAT 100
[2021-05-31] MEDS: Ketorolac Tromethamine 60 MG/2 ML VIAL IM (14:29)
[2021-05-31 14:48] LABS: Alanine Aminotransferase 25 U/L (0-40); Albumin Level 4.2 g/dL (3.5-5.0); Alkaline Phosphatase 61 U/L (39-117); Anion Gap 12 (12-20); Aspartate Amino Transferase 24 U/L (5-37); Bilirubin Direct < 0.2 mg/dL (0.0-0.5); Bilirubin Total 0.3 mg/dL (0.0-1.0); Blood Urea Nitrogen 56 mg/dL (9-16); Calcium 8.7 mg/dL (8.4-10.2); Carbon Dioxide 27 mmol/L (22-29); Chloride 106 mmol/L (96-108); Creatinine Clr Calc Pharmacy 22.8; Estimated Glomerular Filt Rate 14; Glucose Random 94 mg/dL (60-115); Potassium 4.2 mmol/L (3.3-5.1); Sodium 141 mmol/L (135-145); Total Protein 7.2 g/dL (6.5-8.0)
[2021-05-31] MEDS: levoFLOXacin 500 MG TABLET PO (15:14)
[2021-05-31] MEDS: metroNIDAZOLE 500 MG TABLET PO (15:15)
== END 2021-05-31 15:54 | disposition home or self-care (01) ==
PROVIDERS: Emergency Provider Emergency Medicine; PCP Nurse Practitioner Primary Care
DX: K57.32 Diverticulitis of large intestine without perforation or abscess without bleeding (principal); E11.22 Type 2 diabetes mellitus with diabetic chronic kidney disease; I12.9 Hypertensive chronic kidney disease with stage 1 through stage 4 chronic kidney disease, or unspecified chronic kidney disease; N18.4 Chronic kidney disease, stage 4 (severe); N17.9 Acute kidney failure, unspecified; Z79.4 Long term (current) use of insulin; Z79.02 Long term (current) use of antithrombotics/antiplatelets; Z79.899 Other long term (current) drug therapy; Z79.82 Long term (current) use of aspirin
CPT/HCPCS: 36415; 74176; 80048; 80076; 81001; 85025; 96372; 99284; J1885

== ENCOUNTER 2021-06-07 13:31 | Emergency (ER) | payer OTHER, SELFPAY ==
--- NOTE | ~2021-06-07 | XR_ITS ---
EXAMINATION: XR FOOT, LEFT CLINICAL INFORMATION: Pain. COMPARISON: Left foot August 03, 2013 TECHNIQUE: 3 views of the left foot. FINDINGS: No fracture. No dislocation. Mild degenerative change of the first MTP joint. Mild degenerative change of the midtarsal bones. This is unchanged since prior study August 03, 2013. There is a prominent plantar calcaneal spur. There is small spur at the posterior calcaneus at the Achilles tendon insertion. XR/XR foot LT min 3V IMPRESSION: No acute abnormality of left foot. No change since prior study August 03, 2013. Mild degenerative change of first MTP joint and midtarsal bones. Prominent heel spur.
--- NOTE | ~2021-06-07 | US_ITS ---
EXAMINATION: US VENOUS ULTRASOUND WITH DOPPLER LOWER EXTREMITY, RIGHT CLINICAL INFORMATION: Pain. Rule out DVT. COMPARISON: None TECHNIQUE: Ultrasound of the deep veins is performed from the hip to the calf with compression sonography and color and pulse Doppler assessment. Spectral analysis with color-flow imaging is performed. FINDINGS: There is normal venous compression and respiratory variation and augmented flow. The visualized common femoral vein, superficial femoral vein, profunda femoral vein, popliteal vein, and the trifurcation region shows no evidence of deep venous thrombosis. There is no significant popliteal fossa cyst. If the patient's symptoms persist, followup ultrasound in 5 days 7 days might be of value to exclude proximal propagation from a non-visualized calf vein. US/US venous duplex LE RT IMPRESSION: No DVT demonstrated in the right lower extremity.
--- NOTE | ~2021-06-07 | XR_ITS ---
EXAMINATION: XR FOOT, RIGHT CLINICAL INFORMATION: Foot pain. COMPARISON: Right foot August 03, 2013 TECHNIQUE: AP, lateral, and oblique views of the right foot. FINDINGS: There is no fracture. No dislocation. There is a prominent spur of the navicular bone at the talonavicular joint at the dorsum of the foot. There is a small plantar calcaneal spur. There is a small spur at the posterior calcaneus at the insertion of the Achilles tendon. Compared to study of August 03, 2013 there is not been substantial change. XR/XR foot RT min 3V IMPRESSION: 1. No acute abnormality. 2. No substantial change of the degenerative spurring at the talonavicular joint compared to exam of August 03, 2013. 3. Plantar calcaneal spur.
[2021-06-07 14:10] VITALS: BP 141/71; PULSE 68; RESP 18; TEMP 36.8; O2SAT 96; BMI 34.8
[2021-06-07 16:13] VITALS: BP 157/70; PULSE 62; RESP 20; TEMP 36.6; O2SAT 98
--- NOTE | 2021-06-07 18:14 | ED_ITS ---
HPI - Extremity Problem General Chief complaint: Extremity Problem Stated complaint: leg problems Time Seen by Provider: 06/07/21 15:37 History of Present Illness HPI Narrative: Patient complains of right lower leg pain as well as bilateral foot pain, the right lower leg pain has been going on for several days, the pain in both feet has been going on for many months, there has been no injury there is no weakness or numbness, no difficulty breathing no fever, pain is mild Related Data Home Medications Medication Instructions Recorded Confirmed aspirin 81 mg tablet,delayed 81 mg PO DAILY 07/25/20 05/22/21 release (Aspir-) atorvastatin 80 mg tablet 80 mg PO DAILY 07/25/20 05/22/21 carvedilol 25 mg tablet 25 mg PO BID 07/25/20 05/22/21 cholecalciferol (vitamin D3) 25 50 mcg PO DAILY 07/25/20 05/22/21 mcg (1,000 unit) capsule (Vitamin D3) fenofibrate nanocrystallized 145 145 mg PO DAILY 07/25/20 05/22/21 mg tablet gabapentin 600 mg tablet 600 mg PO TID 07/25/20 05/22/21 oxcarbazepine 300 mg tablet 300 mg PO BID 07/25/20 05/22/21 perphenazine 4 mg tablet 4 mg PO BID 07/25/20 05/22/21 sertraline 100 mg tablet 200 mg PO DAILY 07/25/20 05/22/21 spironolactone 25 mg tablet 50 mg PO DAILY 07/25/20 05/22/21 fluticasone propionate 110 4 puff INHALATION BID 01/23/21 05/22/21 mcg/actuation HFA aerosol inhaler (Flovent HFA) tramadol 50 mg tablet 2 tab PO Q8H PRN 01/23/21 05/22/21 zolpidem 10 mg tablet 1 tab PO BEDTIME 01/23/21 05/22/21 Previous Rx's Medication Instructions Recorded lancets 33 gauge (TRUEplus Lancets) #100 ea 08/16/20 acetaminophen 500 mg tablet 500 mg PO Q6H PRN #20 tab 09/01/20 (Tylenol Extra Strength) lisinopril 40 mg tablet 40 mg PO QAM #30 tab 11/08/20 omeprazole 40 mg capsule,delayed 40 mg PO DAILY@0630 #30 cap 02/07/21 release torsemide 20 mg tablet 60 mg PO DAILY #90 tab 02/07/21 prednisone 20 mg tablet 40 mg PO DAILY #10 tab 02/17/21 glucose 4 gram chewable tablet 16 g PO Q15M PRN #30 tab 02/20/21 (Dex4 Glucose) pen needle, diabetic 32 gauge x 1 ea MISCELLANEOUS .COMPLEX #100 ea 03/13/21/32 (Pentips) sucralfate 100 mg/mL oral 10 ml PO BID #1000 ml 03/24/21 suspension (Carafate) levofloxacin 500 mg tablet 500 mg PO DAILY 7 Days #7 tab 04/03/21 metronidazole 500 mg tablet 500 mg PO BID #14 tab 04/03/21 (Flagyl) blood sugar diagnostic (FreeStyle 1 strip MISCELLANEOUS QID #300 05/02/21 Lite Strips) strip hydralazine 100 mg tablet 100 mg PO TID 90 Days #270 tab 05/18/21 nifedipine 30 mg tablet,extended 120 mg PO DAILY 90 Days #360 tab 05/29/21 release levofloxacin 500 mg tablet 500 mg PO DAILY #10 tab 05/31/21 metronidazole 500 mg tablet 500 mg PO TID #30 tab 05/31/21 (Flagyl) insulin aspart U-100 100 unit/mL See Rx Instructions SUBCUT TID 30 06/05/21 (3 mL) subcutaneous pen (Novolog Days #30 ml Flexpen U-100 Insulin aspart) insulin glargine U-300 conc 300 60 unit SUBCUT DAILY #6 ml 06/05/21 unit/mL (3 mL) subcutaneous pen (Toujeo Max U-300 SoloStar) acetaminophen 500 mg tablet 1,000 mg PO QID PRN #30 tab 06/07/21 oxycodone 5 mg tablet 5 mg PO Q6H PRN #10 tab 06/07/21 Allergies Allergy/AdvReac Type Severity Reaction Status Date / Time No Known Allergies Allergy Verified 05/31/21 11:56 Review of Systems Review of Systems: Positive for pain in right leg as well as bilateral foot pain without injury Negatives are no fever no chills no headache no neck pain no radiating pain no numbness or weakness no chest pain no shortness of breath no palpitations no abdominal pain no nausea or vomiting no skin rash Yes all other systems are reviewed and are negative PMFSH Past Medical History Source: nursing notes reviewed Medical History Abnormal biopsy of kidney Anxiety Asthma CHF (congestive heart failure) Chronic kidney disease (CKD) Chronic kidney disease, stage 4 (severe) COPD (chronic obstructive pulmonary disease) Depression Depression with anxiety Diabetes mellitus with hyperglycemia, with long-term current use of insulin Diverticulitis Elevated cholesterol Erectile dysfunction History of alcohol abuse History of headache HTN (hypertension) Hx of pancreatitis Hypertension Hypertensive crisis Hypertriglyceridemia On beta doron at home Pancreatitis Peptic ulcer Proteinuria Sleep apnea Type 2 diabetes mellitus with chronic kidney disease Type 2 diabetes mellitus with hyperglycemia, with long-term current use of insulin Type 2 diabetes mellitus with polyneuropathy Surgical History Hx of colonoscopy Hx of right inguinal hernia repair Family History Family History Mother Diabetes Social History Social History Household Members: None Housing: Apartment Do you presently have visiting nurse or other home services: No Alcohol intake: never Patient Tobacco Use Status: Former Tobacco user Cigarettes Per Day: 4 Years Smoked: 30 Second Hand Smoke Exposure: Yes Advance Directives: No Advance Directives Information Provided: Yes service: No Current occupational status: retired Physical Exam Vital Signs: Vital Signs: Last Vital Signs Temp 97.9 F 06/07/21 16:13 Pulse 62 06/07/21 16:13 Resp 20 06/07/21 16:13 BP 157/70 H 06/07/21 16:13 Pulse Ox 98 06/07/21 16:13 Body Mass Index 34.8 General appearance is no acute distress Head is normocephalic atraumatic Neck is supple The chest is clear to auscultation bilateral no respiratory distress Heart no murmur Extremities are full range of motion x4 The right lower extremity there is tenderness on the lateral and dorsal aspect of the lower leg there is no obvious swelling there is no redness no warmth no wounds no pedal edema Right foot had some dorsal tenderness, otherwise neurovascular intact with skin intact with full range of motion at toes and ankles Left foot again dorsal tenderness, full range of motion in toes and ankle, no redness no warmth no swelling no break in the skin no wounds no rashes Neuro no focal motor sensory deficit Course Course Course Narrative: Ultrasound of the right leg was negative with no clot demonstrated Bilateral foot x-rays demonstrated some mild arthritis, there was no sign of any skin infections Pulses were intact and symmetrical in both feet Patient is advised to follow with mason apprentice and follow with his doctor, patient ambulates easily and is discharged Discharge Plan Discharge Clinical Impression: Peripheral neuropathy Patient Disposition: Home, Self-Care Additional Instructions: Follow with both mason apprentice and primary care doctor Your pain may be from peripheral neuropathy from diabetes, it could be developing problem with circulation in your feet so you may need a referral to a specialist for circulation tests Return any time any worse condition or any concerns Prescriptions: New acetaminophen 500 mg tablet 1,000 mg PO QID PRN (Reason: pain) Qty: 30 RF: 0 oxycodone 5 mg tablet 5 mg PO Q6H PRN (Reason: pain) Qty: 10 RF: 0 No Action (DME) lancets [TRUEplus Lancets] 33 gauge misc See Rx Instructions .ROUTE .MEDSUPPLY Qty: 100 RF: 11 lisinopril 40 mg tablet 40 mg PO QAM Qty: 30 RF: 6 pen needle, diabetic [Pentips] 32 gauge x 5/32 needle 1 ea miscellaneous .COMPLEX Qty: 100 RF: 6 blood sugar diagnostic [FreeStyle Lite Strips] Strip 1 strip miscellaneous QID Qty: 300 RF: 11 hydralazine 100 mg tablet 100 mg PO TID 90 Days Qty: 270 RF: 0 nifedipine 30 mg tablet extended release 120 mg PO DAILY 90 Days Qty: 360 RF: 0 Toujeo Max U-300 SoloStar 300 unit/mL (3 mL) insulin pen 60 unit subcut DAILY Qty: 6 RF: 4 insulin aspart U-100 [Novolog Flexpen U-100 Insulin] 100 unit/mL (3 mL) insulin pen See Rx Instructions subcut TID 30 Days Qty: 30 RF: 4 atorvastatin 80 mg Tablet 80 mg PO DAILY RF: 0 sertraline 100 mg Tablet 200 mg PO DAILY RF: 0 aspirin [Aspir-81] 81 mg Tablet,Delayed Release (Dr/Ec) 81 mg PO DAILY RF: 0 fenofibrate nanocrystallized 145 mg Tablet 145 mg PO DAILY RF: 0 gabapentin 600 mg Tablet 600 mg PO TID RF: 0 oxcarbazepine 300 mg Tablet 300 mg PO BID RF: 0 spironolactone 25 mg Tablet 50 mg PO DAILY RF: 0 perphenazine 4 mg Tablet 4 mg PO BID RF: 0 cholecalciferol (vitamin D3) [Vitamin D3] 25 mcg (1,000 unit) Capsule 50 mcg PO DAILY RF: 0 carvedilol 25 mg Tablet 25 mg PO BID RF: 0 torsemide 20 mg Tablet 60 mg PO DAILY Qty: 90 RF: 0 omeprazole 40 mg Capsule,Delayed Release(Dr/Ec) 40 mg PO DAILY@0630 Qty: 30 RF: 0 prednisone 20 mg tablet 40 mg PO DAILY Qty: 10 RF: 0 metronidazole [Flagyl] 500 mg tablet 500 mg PO BID Qty: 14 RF: 0 levofloxacin 500 mg tablet 500 mg PO DAILY 7 Days Qty: 7 RF: 0 levofloxacin 500 mg tablet 500 mg PO DAILY Qty: 10 RF: 0 metronidazole [Flagyl] 500 mg tablet 500 mg PO TID Qty: 30 RF: 0 acetaminophen [Tylenol Extra Strength] 500 mg tablet 500 mg PO Q6H PRN (Reason: pain or fever) Qty: 20 RF: 0 tramadol 50 mg tablet 2 tab PO Q8H PRN (Reason: Pain) RF: 0 zolpidem 10 mg tablet 1 tab PO BEDTIME RF: 0 Flovent HFA 110 mcg/actuation HFA aerosol inhaler 4 puff inhalation BID RF: 0 glucose [Dex4 Glucose] 4 gram tablet,chewable 16 g PO Q15M PRN (Reason: hypoglycemia) Qty: 30 RF: 6 sucralfate [Carafate] 100 mg/mL suspension 10 ml PO BID Qty: 1000 RF: 0 Referrals: Mic Cross DPM [Physician] - 2 days (Bilateral foot pain) Interventions: ED Discharge Assessment Last Done: 06/07/21 18:30 Discharge Date/Time: 06/07/21 18:34
== END 2021-06-07 18:34 | disposition home or self-care (01) ==
PROVIDERS: Emergency Provider Emergency Medicine; PCP Nurse Practitioner Primary Care
DX: G62.9 Polyneuropathy, unspecified (principal); M79.671 Pain in right foot; M79.672 Pain in left foot; M79.604 Pain in right leg; I13.0 Hypertensive heart and chronic kidney disease with heart failure and stage 1 through stage 4 chronic kidney disease, or unspecified chronic kidney disease; I50.9 Heart failure, unspecified; N18.4 Chronic kidney disease, stage 4 (severe); E11.22 Type 2 diabetes mellitus with diabetic chronic kidney disease; Z79.4 Long term (current) use of insulin; Z79.82 Long term (current) use of aspirin; Z79.899 Other long term (current) drug therapy
CPT/HCPCS: 73630; 93971; 99284

== ENCOUNTER → 2021-08-03 13:45 | Outpatient (BNVA) | payer OTHER, SELFPAY | PROVIDERS: PCP Nurse Practitioner Primary Care; Referring Provider Nurse Practitioner Primary Care; Visit Provider Surgery Vascular Surgery | DX: I83.11 Varicose veins of right lower extremity with inflammation (principal); I73.9 Peripheral vascular disease, unspecified | CPT/HCPCS: 99202 ==

== ENCOUNTER 2021-08-18 16:42 | Inpatient (IN) | payer OTHER, SELFPAY ==
[2021-08-18] VITALS (9 sets, daily range): BP systolic 149–207; BP diastolic 65–79; PULSE 59–69; RESP 16–20; TEMP 36.7–36.8; O2SAT 96–98; BMI 36.2
--- NOTE | ~2021-08-18 | US_ITS ---
EXAMINATION: ULTRASOUND OF KIDNEYS WITH RENAL ARTERY DOPPLER CLINICAL INFORMATION: Hypertension, for medication COMPARISON: None. TECHNIQUE: Ultrasound of the kidneys was performed along with color flow Doppler imaging and velocity measurements in the proximal mid and distal renal arteries. Aortic velocities were measured and renal/aortic ratios were calculated. FINDINGS: The kidneys appeared normal with the right kidney measuring 10.6 cm and the left kidney measuring 11.6 cm. No renal masses, renal stones or hydronephrosis is seen. Renal cortical thickness appears normal. Velocity measurements in the proximal mid and distal renal arteries are normal. Velocity in the aorta is normal and, therefore, the renal aortic ratios are normal.. Resistive indices within the bilateral segmental and interlobar arteries are at the upper limits of normal. The bladder appeared unremarkable. US/US renal doppler IMPRESSION: No evidence to suggest renal artery stenosis. Resistive indices within the bilateral segmental and interlobar arteries are at the upper limits of normal suggesting renal dysfunction.
--- NOTE | ~2021-08-18 | CT_ITS ---
EXAMINATION: CT HEAD WITHOUT CONTRAST CLINICAL INFORMATION: Headache. Hypertensive urgency. COMPARISON: CT scan of the head 01/01/2020. TECHNIQUE: Contiguous axial imaging was performed from the skull base to vertex without intravenous administration of contrast. This CT examination was performed using dose optimization techniques as appropriate, variously including the following: *Automated exposure control *Adjustment of mA and/or kV according to patient size (this includes techniques or standardized protocols for targeted exams where dose is matched to indication/reason for exam; i.e. extremities or head) *Use of iterative reconstruction technique DLP: 869 mGy-cm FINDINGS: There is no acute intracranial hemorrhage or abnormal extra-axial collection. No intracranial mass effect or midline shift. Lateral and third ventricles are normal. No hydrocephalus. Jj-white matter differentiation is grossly preserved and there is no evidence of acute territorial infarct. The calvarium and skull base are intact. There is a right mastoid effusion. No active paranasal sinus disease. CT/CT head/brain wo con IMPRESSION: Unremarkable CT scan of the head. No acute intracranial hemorrhage.
[2021-08-18 17:25] LABS: Glucose, Whole Blood 196 mg/dL (60-115)
--- NOTE | 2021-08-18 18:47 | ECG_ITS ---
Test Reason : CHEST PAIN Blood Pressure : / mmHG Vent. Rate : 064 BPM Atrial Rate : 064 BPM P-R Int : 208 ms QRS Dur : 122 ms QT Int : 442 ms P-R-T Axes : 037 -54 066 degrees QTc Int : 455 ms Normal sinus rhythm Left anterior fascicular block Intra-ventricular conduction delay Left ventricular hypertrophy with QRS widening ( R in aVL , Lockwood product ) Abnormal ECG T wave inversion less evident in Lateral leads Referred By: Diane Martinez Electronically Signed By:JODI CORTEZ MD
--- NOTE | 2021-08-18 18:48 | ED.GENADULT ---
HPI - General Adult General Chief complaint: General Medical Stated complaint: High BS Time Seen by Provider: 08/18/21 18:32 Source: patient Mode of arrival: ambulatory Limitations: no limitations History of Present Illness HPI narrative: 60-year-old male with a history of diabetes on insulin, HTN on multiple antihypertensive agents, CKD with baseline SCr 3.7-4.4, PUD, PAD who presents to the ER for evaluation of hyperglycemia. He reports his blood sugar was 333 at 04:00 o'clock this afternoon. He reports not feeling well at that time with headache, nausea, dizziness, and fatigue. He reports his usual blood sugars are 120-140. He is on a very specific insulin regimen and denies any missed doses. He admits to eating rice, potatoes for lunch and fruit for breakfast. He had a banana 1 hour prior to his hyperglycemia episode at home. He reports his hemoglobin A1c is 6.1%. Patient reports getting himself his usual 18 units of NovoLog insulin and then coming to the emergency room for evaluation. He denies any chest pain, shortness of breath, signs or symptoms of infection. MD complaint: Hyperglycemia, headache, dizziness Onset (ago): hour(s) (3) Location: head Radiation: non-radiation Severity: moderate Severity scale (1-10): 4 Quality: aching Pain Consistency: constant (Improving) Relieving factors: none Exacerbating factors: none Associated symptoms: headaches and malaise Treatments prior to arrival: other (18 units of subcutaneous NovoLog) Related Data Home Medications Medication Instructions Recorded Confirmed aspirin 81 mg tablet,delayed 81 mg PO DAILY 07/25/20 05/22/21 release (Aspir-) atorvastatin 80 mg tablet 80 mg PO DAILY 07/25/20 05/22/21 carvedilol 25 mg tablet 25 mg PO BID 07/25/20 05/22/21 cholecalciferol (vitamin D3) 25 50 mcg PO DAILY 07/25/20 05/22/21 mcg (1,000 unit) capsule (Vitamin D3) fenofibrate nanocrystallized 145 145 mg PO DAILY 07/25/20 05/22/21 mg tablet gabapentin 600 mg tablet 600 mg PO TID 07/25/20 05/22/21 oxcarbazepine 300 mg tablet 300 mg PO BID 07/25/20 05/22/21 perphenazine 4 mg tablet 4 mg PO BID 07/25/20 05/22/21 sertraline 100 mg tablet 200 mg PO DAILY 07/25/20 05/22/21 spironolactone 25 mg tablet 50 mg PO DAILY 07/25/20 05/22/21 fluticasone propionate 110 4 puff INHALATION BID 01/23/21 05/22/21 mcg/actuation HFA aerosol inhaler (Flovent HFA) tramadol 50 mg tablet 2 tab PO Q8H PRN 01/23/21 05/22/21 zolpidem 10 mg tablet 1 tab PO BEDTIME 01/23/21 05/22/21 Previous Rx's Medication Instructions Recorded lancets 33 gauge (TRUEplus Lancets) #100 ea 08/16/20 acetaminophen 500 mg tablet 500 mg PO Q6H PRN #20 tab 09/01/20 (Tylenol Extra Strength) lisinopril 40 mg tablet 40 mg PO QAM #30 tab 11/08/20 omeprazole 40 mg capsule,delayed 40 mg PO DAILY@0630 #30 cap 02/07/21 release torsemide 20 mg tablet 60 mg PO DAILY #90 tab 02/07/21 prednisone 20 mg tablet 40 mg PO DAILY #10 tab 02/17/21 glucose 4 gram chewable tablet 16 g PO Q15M PRN #30 tab 02/20/21 (Dex4 Glucose) pen needle, diabetic 32 gauge x 1 ea MISCELLANEOUS .COMPLEX #100 ea 03/13/21 (Pentips) sucralfate 100 mg/mL oral 10 ml PO BID #1000 ml 03/24/21 suspension (Carafate) levofloxacin 500 mg tablet 500 mg PO DAILY 7 Days #7 tab 04/03/21 metronidazole 500 mg tablet 500 mg PO BID #14 tab 04/03/21 (Flagyl) blood sugar diagnostic (FreeStyle 1 strip MISCELLANEOUS QID #300 05/02/21 Lite Strips) strip hydralazine 100 mg tablet 100 mg PO TID 90 Days #270 tab 05/18/21 nifedipine 30 mg tablet,extended 120 mg PO DAILY 90 Days #360 tab 05/29/21 release levofloxacin 500 mg tablet 500 mg PO DAILY #10 tab 05/31/21 metronidazole 500 mg tablet 500 mg PO TID #30 tab 05/31/21 (Flagyl) insulin aspart U-100 100 unit/mL See Rx Instructions SUBCUT TID 30 08/09/21 (3 mL) subcutaneous pen (Novolog Days #30 ml Flexpen U-100 Insulin aspart) insulin glargine U-300 conc 300 60 unit SUBCUT DAILY #6 ml 06/05/21 unit/mL (3 mL) subcutaneous pen (Toujeo Max U-300 SoloStar) acetaminophen 500 mg tablet 1,000 mg PO QID PRN #30 tab 06/07/21 oxycodone 5 mg tablet 5 mg PO Q6H PRN #10 tab 06/07/21 Allergies Allergy/AdvReac Type Severity Reaction Status Date / Time No Known Allergies Allergy Verified 08/03/21 13:47 Review of Systems Review of Systems: Constitutional: No Fever, No Chills, +fatigue ENT/Mouth: No sore throat, No Rhinorrhea, No Swallowing Difficulty Eyes: No Eye Pain, No Swelling, No Redness Cardiovascular: No Chest Pain, No SOB, No Orthopnea, No Edema Respiratory: No Cough, No Sputum, No Wheezing, No dyspnea Gastrointestinal: + Nausea, No Vomiting, No Diarrhea, No abdominal Pain, No Hematochezia, No Melena Genitourinary: No Dysuria, No Urinary Frequency, No Hematuria Musculoskeletal: No joint pain, No Myalgias Skin: No Skin Lesions, No rash Neuro: No weakness, No Numbness, + Dizziness, +Headache Psych: + Anxiety/Panic, No Depression Heme/Lymph: No Bruising, No Lymphadenopathy Endocrine: No Polyuria, No Polydipsia PMFSH Past Medical History Medical History Abnormal biopsy of kidney Anxiety Asthma CHF (congestive heart failure) Chronic kidney disease (CKD) Chronic kidney disease, stage 4 (severe) COPD (chronic obstructive pulmonary disease) Depression Depression with anxiety Diabetes mellitus with hyperglycemia, with long-term current use of insulin Diverticulitis Elevated cholesterol Erectile dysfunction History of alcohol abuse History of headache HTN (hypertension) Hx of pancreatitis Hypertension Hypertensive crisis Hypertriglyceridemia On beta doron at home Pancreatitis Peptic ulcer Proteinuria Sleep apnea Type 2 diabetes mellitus with chronic kidney disease Type 2 diabetes mellitus with hyperglycemia, with long-term current use of insulin Type 2 diabetes mellitus with polyneuropathy Surgical History Hx of colonoscopy Hx of right inguinal hernia repair Family History Family History Mother Diabetes Social History Social History Household Members: None Housing: Apartment Do you presently have visiting nurse or other home services: No Alcohol intake: never Patient Tobacco Use Status: Former Tobacco user Cigarettes Per Day: 4 Years Smoked: 30 Second Hand Smoke Exposure: Yes Advance Directives: No Advance Directives Information Provided: Yes service: No Current occupational status: retired Physical Exam Vital Signs: Vital Signs: Last Vital Signs Temp 98.3 F 08/18/21 17:10 Pulse 60 08/18/21 20:31 Resp 16 08/18/21 20:28 BP 180/75 H 08/18/21 20:31 Pulse Ox 98 08/18/21 20:28 Body Mass Index 36.2 Appearance: Alert. Oriented X3. No acute distress. Eyes: Pupils equal, round and reactive to light. EOMI ENT: Pharynx normal. Neck: Normal inspection. Neck supple. CVS: Normal heart rate and rhythm. Pulses normal. Respiratory: No respiratory distress. Breath sounds normal. Abdomen: Rotund, somewhat firm but nontender with normal +BS x4 Skin: Skin warm and dry. Normal skin color. Normal skin turgor. No rashes. Extremities: 1+ lower extremity edema bilaterally, no erythema or warmth. Neuro: Oriented X 3. No motor deficit. No sensory deficit. Course Course Course Narrative: 60-year-old male with insulin-dependent diabetes, CKD and hypertension on multiple antihypertensive agents presenting to the ER with hyperglycemia associated with headache, nausea, dizziness and fatigue. On arrival he was found to be hypertensive to 196/72. His glucose was 196. He has a nonfocal neurological exam. No current dizziness. His hyperglycemia episode could be dietary related. Will plan to check basic lab workup, EKG, and CT his head given his headache and dizziness. Home PO Coreg and Hydralazine ordered. Will re-check BP. Reevaluation(s) Reevaluation #1: Blood pressure improved to 175 systolic after he was given his p.o. hydralazine and Coreg. His lab workup showing his baseline anemia is stable. His renal function is worsening with a creatinine of 5.54. His baseline is 3.7 to 4.4. Most likely due to poorly controlled hypertension. He has urinating normally, doubt obstructive causes. Will gently hydrate and check urine electrolytes. Will admit for further management of MARNI on CKD and hypertensive urgency. Medical Decision Making Lab Data Lab results reviewed: Yes I reviewed the patient's lab results. Result diagrams: 08/18/21 20:14 08/18/21 20:14 Labs: Lab Results 08/18/21 08/18/21 08/18/21 Range/Units 17:17 20:14 20:14 WBC 6.5 (4.8-10.8) X10*3/uL RBC 3.29 L (4.60-5.80) X10*6/uL Hgb 10.2 L (14.0-18.0) g/dl Hct 29.4 L (42-52) % MCV 89.4 (80-98) fL MCH 31.0 (27.0-33.0) pg MCHC 34.7 (31.0-36.0) g/dl RDW 13.3 (11.0-16.0) % Plt Count 158 L (160-400) X10*3/uL MPV 12.0 (9.4-12.4) fL Immature Gran % (Auto) 0.3 (0.0-0.4) % Neut % (Auto) 66.3 (45-73) % Lymph % (Auto) 22.2 (20-40) % [place] % (Auto) 6.7 (2-11) % Eos % (Auto) 4.2 H (0-4) % Baso % (Auto) 0.3 (0-2) % Lymph # (Auto) 1.4 (1.2-4.9) X10*3/uL [place] # (Auto) 0.4 (0.1-1.2) X10*3/uL Eos # (Auto) 0.3 (0.0-0.4) X10*3/uL Baso # (Auto) 0.0 (0.0-0.2) X10*3/uL Abs Immat Gran (auto) 0.02 (0.00-0.03) X10*3/uL Absolute Neuts (auto) 4.3 (2.0-8.3) X10*3/uL Absolute Nucleated RBC 0.000 (0.0-0.012) X10*3/uL Nucleated RBC % (auto) 0.0 (0.0-0.2) /100WBC Sodium 144 (135-145) mmol/L Potassium 4.2 (3.3-5.1) mmol/L Chloride 107 (96-108) mmol/L Carbon Dioxide 25 (22-29) mmol/L Anion Gap 16 (12-20) BUN 78 H (9-16) mg/dL Creatinine 5.92 H* (0.5-1.4) mg/dL Estim Creat Clear Calc 17.3 Estimated GFR 10 POC Glucose 196 H (60-115) mg/dL Random Glucose 172 H D (60-115) mg/dL Calcium 7.6 L D (8.4-10.2) mg/dL Urine Color Urine Appearance Urine pH (5.0-8.0) Ur Specific [place] (1.005-1.025) Urine Protein (NEG-TRACE) MG/DL Urine Glucose (UA) (NEG) MG/DL Urine Ketones (NEG) MG/DL Urine Blood (NEG) Urine Nitrite (NEG) Ur Leukocyte Esterase (NEG) Urine RBC (0) /HPF Urine WBC (0-4) /HPF Ur Squamous Epith Cells /LPF Urine Bacteria /LPF COVID-19 ([facility]) (Negative) COVID-19 Clin Com 08/18/21 08/18/21 Range/Units 20:14 20:14 WBC (4.8-10.8) X10*3/uL RBC (4.60-5.80) X10*6/uL Hgb (14.0-18.0) g/dl Hct (42-52) % MCV (80-98) fL MCH (27.0-33.0) pg MCHC (31.0-36.0) g/dl RDW (11.0-16.0) % Plt Count (160-400) X10*3/uL MPV (9.4-12.4) fL Immature Gran % (Auto) (0.0-0.4) % Neut % (Auto) (45-73) % Lymph % (Auto) (20-40) % [place] % (Auto) (2-11) % Eos % (Auto) (0-4) % Baso % (Auto) (0-2) % Lymph # (Auto) (1.2-4.9) X10*3/uL [place] # (Auto) (0.1-1.2) X10*3/uL Eos # (Auto) (0.0-0.4) X10*3/uL Baso # (Auto) (0.0-0.2) X10*3/uL Abs Immat Gran (auto) (0.00-0.03) X10*3/uL Absolute Neuts (auto) (2.0-8.3) X10*3/uL Absolute Nucleated RBC (0.0-0.012) X10*3/uL Nucleated RBC % (auto) (0.0-0.2) /100WBC Sodium (135-145) mmol/L Potassium (3.3-5.1) mmol/L Chloride (96-108) mmol/L Carbon Dioxide (22-29) mmol/L Anion Gap (12-20) BUN (9-16) mg/dL Creatinine (0.5-1.4) mg/dL Estim Creat Clear Calc Estimated GFR POC Glucose (60-115) mg/dL Random Glucose (60-115) mg/dL Calcium (8.4-10.2) mg/dL Urine Color YELLOW Urine Appearance CLEAR Urine pH 6.0 (5.0-8.0) Ur Specific [place] 1.025 (1.005-1.025) Urine Protein 2+ H (NEG-TRACE) MG/DL Urine Glucose (UA) NEG (NEG) MG/DL Urine Ketones NEG (NEG) MG/DL Urine Blood NEG (NEG) Urine Nitrite NEG (NEG) Ur Leukocyte Esterase NEG (NEG) Urine RBC 0-2 (0) /HPF Urine WBC 0-2 (0-4) /HPF Ur Squamous Epith Cells TRACE /LPF Urine Bacteria TRACE /LPF COVID-19 ([facility]) Negative (Negative) COVID-19 Clin Com See Note ECG Data Attestation: I personally reviewed and interpreted this ECG as follows: Prior ECG tracings: available for review Interpretation: normal sinus rhythm, HR 64, left anterior vasicular block, peaked T waves in V2-V4. No ST segment elevations or depressions. artifact present. no significant changes from prior, January 2021 Discharge Plan Discharge Clinical Impression: Hyperglycemia, Hypertensive urgency, Acute kidney injury superimposed on chronic kidney disease Patient Disposition: Admitted As Inpatient
[2021-08-18 20:22] LABS: MANUAL DIFF FLAG NO
[2021-08-18 20:24] LABS: Appearance Urine CLEAR; Color Urine YELLOW; Glucose Urine UA NEG (NEG); Leukocyte Esterase Urine NEG (NEG); Nitrite Urine NEG (NEG); Specific Gravity - Urine 1.025 (1.005-1.025); UACC Culture Trigger NO; Urine Blood NEG (NEG); Urine Ketones NEG (NEG); Urine Protein 2+ MG/DL (NEG-TRACE)
[2021-08-18 20:25] LABS: Basophils Percent Auto 0.3 % (0-2); Eosinophils Absolute Auto 0.3 X10*3/uL (0.0-0.4); Eosinophils Percent Auto 4.2 % (0-4); Hematocrit 29.4 % (42-52); Hemoglobin 10.2 g/dl (14.0-18.0); Imm Gran Abs Auto 0.02 X10*3/uL (0.00-0.03); Imm Gran Pct Auto 0.3 % (0.0-0.4); Lymphocytes Absolute Auto 1.4 X10*3/uL (1.2-4.9); Lymphocytes Percent Auto 22.2 % (20-40); Mean Corpuscular HGB Conc 34.7 g/dl (31.0-36.0); Mean Corpuscular Volume 89.4 fL (80-98); Monocytes Absolute Auto 0.4 X10*3/uL (0.1-1.2); Monocytes Percent Auto 6.7 % (2-11); Neutrophils Absolute Auto 4.3 X10*3/uL (2.0-8.3); Neutrophils Percent Auto 66.3 % (45-73); Platelet Count 158 X10*3/uL (160-400); Red Blood Count 3.29 X10*6/uL (4.60-5.80); Red Cell Distribution Width 13.3 % (11.0-16.0); White Blood Count 6.5 X10*3/uL (4.8-10.8)
[2021-08-18] MEDS: carvediloL 25 MG TABLET PO (20:30)
[2021-08-18] MEDS: hydrALAZINE HCl 50 MG TABLET 100 MG PO (20:31)
[2021-08-18 20:39] LABS: COVID-19 Test Negative (Negative); IDNOW Serial# 9DD0AD1C
[2021-08-18 20:40] LABS: Bacteria Urine TRACE /LPF; RBC Urine 0-2 /HPF (0); Squamous Epithelial Cell Urine TRACE /LPF; WBC Urine 0-2 /HPF (0-4)
[2021-08-18 20:51] LABS: Anion Gap 16 (12-20); Blood Urea Nitrogen 78 mg/dL (9-16); Calcium 7.6 mg/dL (8.4-10.2); Carbon Dioxide 25 mmol/L (22-29); Chloride 107 mmol/L (96-108); Creatinine Clr Calc Pharmacy 17.3; Estimated Glomerular Filt Rate 10; Glucose Random 172 mg/dL (60-115); Potassium 4.2 mmol/L (3.3-5.1); Sodium 144 mmol/L (135-145)
[2021-08-18] MEDS: 0.9 % Sodium Chloride 1,000 ML 999 ML IVCONT (21:20)
[2021-08-18 21:33] LABS: Osmolality Urine 401 mosm/kg (373-1093)
[2021-08-18 21:39] LABS: Creatinine Urine 80.97 mg/dL
--- NOTE | 2021-08-18 22:51 | P.HPHOSP_ITS ---
History of Present Illness Date of Service: 08/18/21 Chief Complaint: headache, weakness, dizziness Medical history of CHF, CKD, COPD, diabetes, hypertension, history of hypertensive crisis, HLD, sleep apnea, depression and anxiety, who presents to the hospital with multiple complaints including hyperglycemia as well as elevated blood pressure, headache, dizziness, nausea vomiting. Patient reports that he checked his sugars, they were in the 300 which concerned him, he took his insulin at home with improvement in his glucose but continued to have headache, dizziness, nausea and vomiting, decided to come to the hospital. On arrival to the ED patient found to have blood pressure of 196/72. Patient currently denies any chest pain, he reports that his headache is improved, 25 mg as well as hydralazine 100 mg p.o. with slight improvement in his blood pressure. He now reports improvement in his headache, no change in vision, denies any chest pain palpitations or shortness of breath, no abdominal pain at this time, nausea has resolved, no diarrhea constipation, no urinary symptoms. He reports chronic lower extremity edema that has not changed. Other vitals on arrival within normal range Labs significant for WBC of 6.5, hemoglobin of 10 point 2, BUN of 78 with a creatinine of 5.92 with a baseline around 4.45, glucose on arrival of 196, UA negative for UTI, urine creatinine of 80.97, urine sodium of 87, Head CT unremarkable Patient will be admitted for further management Review of Systems Review of Systems: Yes all other systems are reviewed and are negative [facility] Medical History Abnormal biopsy of kidney Anxiety Asthma CHF (congestive heart failure) Chronic kidney disease (CKD) Chronic kidney disease, stage 4 (severe) COPD (chronic obstructive pulmonary disease) Depression Depression with anxiety Diabetes mellitus with hyperglycemia, with long-term current use of insulin Diverticulitis Elevated cholesterol Erectile dysfunction History of alcohol abuse History of headache HTN (hypertension) Hx of pancreatitis Hypertension Hypertensive crisis Hypertriglyceridemia On beta doron at home Pancreatitis Peptic ulcer Proteinuria Sleep apnea Type 2 diabetes mellitus with chronic kidney disease Type 2 diabetes mellitus with hyperglycemia, with long-term current use of insulin Type 2 diabetes mellitus with polyneuropathy Family History Mother Diabetes Pertinent family history: No pertinent history except diabetes in mother Surgical History Hx of colonoscopy Hx of right inguinal hernia repair Social History Household Members: None Housing: Apartment Do you presently have visiting nurse or other home services: Yes Alcohol intake: never Patient Tobacco Use Status: Former Tobacco user Cigarettes Per Day: 4 Years Smoked: 30 Patient Interested in Nicotine Replacement: No Second Hand Smoke Exposure: Yes Use of substances other than those prescribed or required for medical reasons: No Currently Displaying Signs/Symptoms of Drug Intoxication Withdrawal: No Have you been hit, kicked, punched, or otherwise hurt by someone within the past year? If so, by whom?: No Do you feel safe in your current relationship?: No Is there a partner from a previous relationship who is making you feel unsafe now?: No Are you made to feel afraid or neglected: No Spiritual Healthcare Practices: none reported Advance Directives: No Advance Directives Information Provided: Yes Do you have thoughts of harming others: None Do you have a plan to hurt others: No Plan Recently lost weight without trying: No Poor oral hygiene: No service: No Current occupational status: [employer] Allergies Allergy/AdvReac Type Severity Reaction Status Date / Time No Known Allergies Allergy Verified 08/18/21 21:21 Active Medications: Current Medications Pharmacy Consult (Consult Rx Perform Med Rec) 1 each MISCELLANE ONCE PRN PRN Reason: Consult order Home Medications Medication Instructions Recorded Confirmed Last Taken Type aspirin 81 mg tablet,delayed 81 mg PO QAM 07/25/20 08/18/21 02/02/21 History release (Aspir-) atorvastatin 80 mg tablet 80 mg PO BEDTIME 07/25/20 08/18/21 02/02/21 History carvedilol 25 mg tablet 25 mg PO BID 07/25/20 08/18/21 02/02/21 History cholecalciferol (vitamin D3) 25 50 mcg PO DAILY 07/25/20 08/18/21 02/02/21 History mcg (1,000 unit) capsule (Vitamin D3) fenofibrate nanocrystallized 145 145 mg PO QPM 07/25/20 08/18/21 02/02/21 History mg tablet gabapentin 600 mg tablet 600 mg PO TID 07/25/20 08/18/21 02/02/21 History oxcarbazepine 300 mg tablet 300 mg PO BID 07/25/20 08/18/21 02/02/21 History perphenazine 4 mg tablet 4 mg PO BID 07/25/20 08/18/21 02/02/21 History sertraline 100 mg tablet 200 mg PO DAILY 07/25/20 08/18/21 02/02/21 History spironolactone 25 mg tablet 50 mg PO DAILY@1200 07/25/20 08/18/21 02/02/21 History tramadol 50 mg tablet 2 tab PO Q8H PRN 01/23/21 08/18/21 02/02/21 History zolpidem 10 mg tablet 1 tab PO BEDTIME 01/23/21 08/18/21 02/02/21 History fluticasone propionate 220 2 puff PO BID 08/18/21 08/18/21 Unknown History mcg/actuation HFA aerosol inhaler (Flovent HFA) nifedipine 30 mg tablet,extended 120 mg PO QPM 08/18/21 08/18/21 Unknown History release Physical Exam Vital Signs and Narrative: Vital Signs: Last Vital Signs Temp 98.3 F 08/18/21 17:10 Pulse 61 08/18/21 22:05 Resp 20 08/18/21 22:05 BP 207/75 H 08/18/21 22:05 Pulse Ox 98 08/18/21 22:05 Body Mass Index 36.2 Const: General: cooperative and no acute distress Orientation/consciousness: patient oriented x3 Eyes: General: appearance normal, both eyes and all related structures Pupils: Equal, round and reactive pupils present Resp: Effort & Inspection: normal respiratory effort Auscultation: clear to auscultation bilaterally Cardio: Rate: regular rate Rhythm: regular rhythm GI: Palpation (GI): Soft to palpation Auscultation: normal bowel sounds Skin: General skin exam: no rashes or lesions noted Neuro: General: patient oriented x3 Cranial nerves: Yes Equal, round and reactive pupils present Cognition (Neuro): normal cognition Extrem: Other: 1+ pitting edema in lower extremities bilaterally General: Yes normal to inspection Results Labs CBC and Chem 7: 08/18/21 20:14 08/18/21 23:11 Labs: Laboratory Results - last 24 hr 08/18/21 08/18/21 08/18/21 17:17 20:14 20:14 MCV 89.4 MCH 31.0 MCHC 34.7 RDW 13.3 Plt Count 158 L MPV 12.0 Immature Gran % (Auto) 0.3 Neut % (Auto) 66.3 Lymph % (Auto) 22.2 [place] % (Auto) 6.7 Eos % (Auto) 4.2 H Baso % (Auto) 0.3 Lymph # (Auto) 1.4 [place] # (Auto) 0.4 Eos # (Auto) 0.3 Baso # (Auto) 0.0 Abs Immat Gran (auto) 0.02 Absolute Neuts (auto) 4.3 Absolute Nucleated RBC 0.000 Nucleated RBC % (auto) 0.0 Anion Gap 16 Estim Creat Clear Calc 17.3 Estimated GFR 10 POC Glucose 196 H Random Glucose 172 H D Calcium 7.6 L D Urine Color Urine Appearance Urine pH Ur Specific [place] Urine Protein Urine Glucose (UA) Urine Ketones Urine Blood Urine Nitrite Ur Leukocyte Esterase Urine RBC Urine WBC Ur Squamous Epith Cells Urine Bacteria Urine Osmolality Ur Random Sodium Urine Creatinine COVID-19 ([facility]) COVID-19 Clin Com 08/18/21 08/18/21 08/18/21 20:14 20:14 21:08 MCV MCH MCHC RDW Plt Count MPV Immature Gran % (Auto) Neut % (Auto) Lymph % (Auto) [place] % (Auto) Eos % (Auto) Baso % (Auto) Lymph # (Auto) [place] # (Auto) Eos # (Auto) Baso # (Auto) Abs Immat Gran (auto) Absolute Neuts (auto) Absolute Nucleated RBC Nucleated RBC % (auto) Anion Gap Estim Creat Clear Calc Estimated GFR POC Glucose Random Glucose Calcium Urine Color YELLOW Urine Appearance CLEAR Urine pH 6.0 Ur Specific [place] 1.025 Urine Protein 2+ H Urine Glucose (UA) NEG Urine Ketones NEG Urine Blood NEG Urine Nitrite NEG Ur Leukocyte Esterase NEG Urine RBC 0-2 Urine WBC 0-2 Ur Squamous Epith Cells TRACE Urine Bacteria TRACE Urine Osmolality Ur Random Sodium 87.0 Urine Creatinine 80.97 COVID-19 ([facility]) Negative COVID-19 Clin Com See Note 08/18/21 21:08 MCV MCH MCHC RDW Plt Count MPV Immature Gran % (Auto) Neut % (Auto) Lymph % (Auto) [place] % (Auto) Eos % (Auto) Baso % (Auto) Lymph # (Auto) [place] # (Auto) Eos # (Auto) Baso # (Auto) Abs Immat Gran (auto) Absolute Neuts (auto) Absolute Nucleated RBC Nucleated RBC % (auto) Anion Gap Estim Creat Clear Calc Estimated GFR POC Glucose Random Glucose Calcium Urine Color Urine Appearance Urine pH Ur Specific [place] Urine Protein Urine Glucose (UA) Urine Ketones Urine Blood Urine Nitrite Ur Leukocyte Esterase Urine RBC Urine WBC Ur Squamous Epith Cells Urine Bacteria Urine Osmolality 401 Ur Random Sodium Urine Creatinine COVID-19 ([facility]O) COVID-19 Clin Com Imaging Radiologist's Impressions: Impressions Head CT 08/18/21 18:47 IMPRESSION: Unremarkable CT scan of the head. No acute intracranial hemorrhage. Assessment and Plan (1) Hypertensive urgency: Status: Acute (2) Acute kidney injury superimposed on chronic kidney disease: Status: Acute (3) Headache: Status: Acute This is a 60-year-old male with past medical history of hypertension, diabetes, CKD who presents to the hospital with complaints of hyperglycemia as well other symptoms including headache, dizziness, nausea and vomiting found to have hypertensive crisis as well as MARNI on CKD # hypertensive crisis - patient with blood pressure 190s over 80s with complaints of headache nausea vomiting - head CT negative - patient denies any chest pain - patient received oral hypertensives with improvement of his blood pressure - patient is on multiple medications for blood pressure including hydralazine, carvedilol, lisinopril, nifedipine, torsemide, and spironolactone with blood pressure remaining high - given his high blood pressure despite multiple medications will obtain renal Doppler ultrasound - nephrology consulted # MARNI on CKD - most likely secondary to severe hypertension as well as dehydration - although his FENA is 4.1% it may be inaccurate as it was obtained after patient received fluids - his creatinine did improve on repeat after fluid resuscitation - continue IV fluids - follow BMP - nephrology consulted # headache - likely secondary to hypertension - head CT negative - resolved # diabetes - continue home insulin - will add low-dose sliding scale insulin - diabetic diet DVT prophylaxis: Heparin subQ Quality Stroke Does the patient have a stroke diagnosis?: No VTE Prior VTE?: No VTE Risk Level:: Medical - moderate - high VTE Device Contraindication: Treatment Not Indicated VTE Drug Contraindication: N/A - Med Ordered
[2021-08-18 23:13] LABS: B Type Natriuretic Peptide 66 pg/mL (<100)
[2021-08-18 23:17] LABS: Glucose, Whole Blood 199 mg/dL (60-115)
--- NOTE | 2021-08-18 23:22 | PC.NURSE ---
Dr Harris made aware of pt's BP. Per Steven, do not give coreg dose as ordered as pt already rec'd dose earlier in night. This RN documented against cored per Dr Harris's recs to hold meds.
[2021-08-18 23:38] LABS: Anion Gap 17 (12-20); Blood Urea Nitrogen 73 mg/dL (9-16); Calcium 7.1 mg/dL (8.4-10.2); Carbon Dioxide 20 mmol/L (22-29); Chloride 109 mmol/L (96-108); Estimated Glomerular Filt Rate 11; Glucose Random 215 mg/dL (60-115); Potassium 3.9 mmol/L (3.3-5.1); Sodium 142 mmol/L (135-145)
[2021-08-18] MEDS: Insulin Lispro 100 UNIT/ML 3 ML VIAL SUBCUT (23:39)
[2021-08-18] MEDS: Heparin Sodium,Porcine 5,000 UNIT/ML VIAL 5000 UNIT SUBCUT (23:39)
[2021-08-18] MEDS: Zolpidem Tartrate 5 MG TABLET 10 MG PO (23:40)
[2021-08-18] MEDS: Gabapentin 600 MG TABLET PO (23:40)
[2021-08-18] MEDS: OXcarbazepine 300 MG TABLET PO (23:40)
--- NOTE | 2021-08-18 23:50 | PC.NURSE ---
This RN asked Dr Harris if she wants calcium replaced. Dr Harris states it's fine for now, it's slightly due to his high glucose. This RN attempting to contact RN cell feed department supervisor as additional meds not yet given are not available in ED.
[2021-08-19] VITALS (9 sets, daily range): BP systolic 121–184; BP diastolic 64–81; PULSE 62–83; RESP 18–20; TEMP 36.1–36.7; O2SAT 95–100; BMI 36.8
--- NOTE | 2021-08-19 00:06 | PC.NURSE ---
This RN attempted report x 1
[2021-08-19 01:04] LABS: Glucose, Whole Blood 218 mg/dL (60-115)
[2021-08-19] MEDS: oxyCODONE HCl Immed Release 5 MG TABLET PO (01:13)
[2021-08-19] MEDS: Fenofibrate,Micronized 134 MG CAPSULE PO ×2 (01:13→21:35)
[2021-08-19] MEDS: Perphenazine 4 MG TABLET PO ×3 (01:13→21:35)
[2021-08-19] MEDS: NIFEdipine ER 60 MG TAB.ER.24 120 MG PO ×2 (01:21→21:35)
[2021-08-19] MEDS: Lactated Ringers 1,000 ML 100 ML IVCONT ×2 (01:22→11:50)
[2021-08-19] MEDS: Albuterol/Iprat 2.5/0.5MG 3 ML AMPUL.NEB INHALE (02:54)
[2021-08-19 06:03] LABS: Creatinine Urine 78.59 mg/dL
[2021-08-19] MEDS: Omeprazole 40 MG CAPSULE.DR PO (06:38)
[2021-08-19 07:23] LABS: MANUAL DIFF FLAG NO
[2021-08-19 07:25] LABS: Glucose, Whole Blood 143 mg/dL (60-115)
[2021-08-19 07:33] LABS: Basophils Percent Auto 0.3 % (0-2); Eosinophils Absolute Auto 0.2 X10*3/uL (0.0-0.4); Hematocrit 29.2 % (42-52); Hemoglobin 9.8 g/dl (14.0-18.0); Imm Gran Abs Auto 0.02 X10*3/uL (0.00-0.03); Imm Gran Pct Auto 0.3 % (0.0-0.4); Lymphocytes Absolute Auto 1.1 X10*3/uL (1.2-4.9); Lymphocytes Percent Auto 19.6 % (20-40); Mean Corpuscular HGB Conc 33.6 g/dl (31.0-36.0); Mean Corpuscular Hemoglobin 30.2 pg (27.0-33.0); Mean Corpuscular Volume 90.1 fL (80-98); Mean Platelet Volume 12.6 fL (9.4-12.4); Monocytes Absolute Auto 0.4 X10*3/uL (0.1-1.2); Monocytes Percent Auto 7.4 % (2-11); Neutrophils Percent Auto 68.4 % (45-73); Platelet Count 161 X10*3/uL (160-400); Red Blood Count 3.24 X10*6/uL (4.60-5.80); Red Cell Distribution Width 13.2 % (11.0-16.0); White Blood Count 5.8 X10*3/uL (4.8-10.8)
[2021-08-19 08:24] LABS: Anion Gap 15 (12-20); Blood Urea Nitrogen 74 mg/dL (9-16); Calcium 7.4 mg/dL (8.4-10.2); Carbon Dioxide 22 mmol/L (22-29); Chloride 106 mmol/L (96-108); Creatinine Clr Calc Pharmacy 19.5; Estimated Glomerular Filt Rate 11; Glucose Random 172 mg/dL (60-115); Potassium 4.1 mmol/L (3.3-5.1); Sodium 139 mmol/L (135-145)
--- NOTE | 2021-08-19 10:23 | HO.PM.IMPN ---
Subjective Subjective Date of Service: 08/19/21 Interval History: seen and examined this morning follow up for uncontrolled HTN, headache, MARNI headache better, no nausea, vomiting, chest pain, shortness of breath Review of Systems Review of Systems: Yes all other systems are reviewed and are negative Constitutional Constitutional: Denies chills and Denies fever(s) Cardiovascular Cardiovascular: Denies chest pain Respiratory Respiratory: Denies cough Gastrointestinal Gastrointestinal: Denies abdominal pain Physical Exam Vital Signs: Vital Signs: Last Vital Signs Temp 98.1 F 08/19/21 07:16 Pulse 65 08/19/21 07:16 Resp 20 08/19/21 07:16 BP 160/73 H 08/19/21 07:16 Pulse Ox 96 08/19/21 07:16 Body Mass Index 36.8 Const: Nutritional Appearance: well nourished Orientation/consciousness: patient oriented x3 HENMT: Head: Yes normocephalic and Yes atraumatic Eyes: Sclerae: sclerae normal Chest: Chest palpation & inspection: normal inspection of the chest Resp: Effort & Inspection: normal respiratory effort and no respiratory distress Cardio: Rate: regular rate Rhythm: regular rhythm GI: Palpation (GI): Soft to palpation and nontender Neuro: General: patient oriented x3 Cranial nerves: Yes CN's II-XII intact bilaterally and Yes Bilaterally intact EOM present Objective Data Active Medications Acetaminophen (Acetaminophen 325 Mg Tablet) 650 mg PO Q6H PRN PRN Reason: Pain, Mild (Pain Scale 1-3) Albuterol/Ipratropium (Albuterol/Iprat 2.5/0.5mg 3 Ml Ampul.Neb) 3 ml INHALE RQ4H PRN PRN Reason: Shortness of Breath/Wheezing Last Admin: 08/19/21 02:54 Dose: 3 ml Documented by: RAMIN Aspirin (Aspirin Enteric Coated 81 Mg Tablet.) 81 mg PO DAILY [facility] Atorvastatin Calcium (Atorvastatin Calcium 80 Mg Tablet) 80 mg PO BEDTIME [facility] Carvedilol (Carvedilol 25 Mg Tablet) 25 mg PO BID [facility]; Protocol Last Admin: 08/18/21 23:22 Dose: Not Given Documented by: CARLOS Non-Admin Reason: Physician Held Med Dextrose (Dextrose 50 % 25 Gm/50 Ml Vial) 25 gm IVPUSH Q15M PRN; Protocol PRN Reason: per Hypoglycemia Standing Ord. Fenofibrate (Fenofibrate,Micronized 134 Mg Capsule) 134 mg PO BEDTIME [facility] Last Admin: 08/19/21 01:13 Dose: 134 mg Documented by: PEREZ Fluticasone Propionate (Fluticasone Propionate 250 Mcg Blst.W.Dev) 2 puff INHALE RBID [facility] Gabapentin (Gabapentin 600 Mg Tablet) 600 mg PO TID [facility] Last Admin: 08/18/21 23:40 Dose: 600 mg Documented by: CARLOS Glucose (Glucose Gel 15 Gm Gel..Gram.) 15 gm PO Q15M PRN; Protocol PRN Reason: per Hypoglycemia Standing Ord. Heparin Sodium (Porcine) (Heparin Sodium,Porcine 5,000 Unit/Ml Vial) 5,000 unit SUBCUT Q12H [facility] Last Admin: 08/18/21 23:39 Dose: 5,000 unit Documented by: CARLOS Hydralazine HCl (Hydralazine Hcl 20 Mg/Ml Vial) 5 mg IVPUSH Q4H PRN; Protocol PRN Reason: SBP>190 Lactated Ringer's (Lr) 1,000 mls @ 100 mls/hr IVCONT .Q10H [facility] Last Admin: 08/19/21 01:22 Dose: 100 mls/hr Documented by: PEREZ Insulin Glargine (Insulin Glargine,Hum.Rec.Anlog 100 Unit/Ml 10 Ml Vial) 48 unit SUBCUT DAILY [facility] Insulin Human Lispro (Insulin Lispro 100 Unit/Ml 3 Ml Vial) 0 unit SUBCUT QIDACHS [facility]; Protocol Last Admin: 08/18/21 23:39 Dose: 2 unit Documented by: CARLOS Nifedipine (Nifedipine Er 60 Mg Tab.Er.24) 120 mg PO BEDTIME [facility] Last Admin: 08/19/21 01:21 Dose: 120 mg Documented by: PEREZ Omeprazole (Omeprazole 40 Mg Capsule.) 40 mg PO DAILY@0630 [facility] Last Admin: 08/19/21 06:38 Dose: 40 mg Documented by: PEREZ Ondansetron HCl (Ondansetron Hcl 4 Mg/2 Ml Vial) 4 mg IVPUSH Q8H PRN PRN Reason: Nausea and Vomiting Oxcarbazepine (Oxcarbazepine 300 Mg Tablet) 300 mg PO BID [facility] Last Admin: 08/18/21 23:40 Dose: 300 mg Documented by: CARLOS Oxycodone HCl (Oxycodone Hcl Immed Release 5 Mg Tablet) 5 mg PO Q6H PRN PRN Reason: Pain, Severe (Pain Scale 7-10) Last Admin: 08/19/21 01:13 Dose: 5 mg Documented by: PEREZ Perphenazine (Perphenazine 4 Mg Tablet) 4 mg PO BID [facility] Last Admin: 08/19/21 01:13 Dose: 4 mg Documented by: PEREZ Pharmacy Consult (Consult Rx Perform Med Rec) 1 each MISCELLANE ONCE PRN PRN Reason: Consult order Sertraline HCl (Sertraline Hcl 100 Mg Tablet) 200 mg PO DAILY [facility] Tramadol HCl (Tramadol Hcl 50 Mg Tablet) 100 mg PO Q8H PRN PRN Reason: Pain Vitamin D (Cholecalciferol (Vitamin D3) 25 Mcg Tablet) 50 mcg PO DAILY [facility] Zolpidem Tartrate (Zolpidem Tartrate 5 Mg Tablet) 10 mg PO BEDTIME [facility] Last Admin: 08/18/21 23:40 Dose: 10 mg Documented by: CARLOS Labs CBC & Chem 7: 08/19/21 06:23 08/19/21 Unknown Labs: Laboratory Results - last 24 hr 08/18/21 08/18/21 08/18/21 17:17 20:14 20:14 MCV 89.4 MCH 31.0 MCHC 34.7 RDW 13.3 Plt Count 158 L MPV 12.0 Immature Gran % (Auto) 0.3 Neut % (Auto) 66.3 Lymph % (Auto) 22.2 [place] % (Auto) 6.7 Eos % (Auto) 4.2 H Baso % (Auto) 0.3 Lymph # (Auto) 1.4 [place] # (Auto) 0.4 Eos # (Auto) 0.3 Baso # (Auto) 0.0 Abs Immat Gran (auto) 0.02 Absolute Neuts (auto) 4.3 Absolute Nucleated RBC 0.000 Nucleated RBC % (auto) 0.0 Anion Gap 16 Estim Creat Clear Calc 17.3 Estimated GFR 10 POC Glucose 196 H Random Glucose 172 H D Calcium 7.6 L D B-Natriuretic Peptide Urine Color Urine Appearance Urine pH Ur Specific [place] Urine Protein Urine Glucose (UA) Urine Ketones Urine Blood Urine Nitrite Ur Leukocyte Esterase Urine RBC Urine WBC Ur Squamous Epith Cells Urine Bacteria Urine Osmolality Ur Random Sodium Urine Creatinine COVID-19 ([facility]IGOBERTO) COVID-19 Clin Com 08/18/21 08/18/21 08/18/21 20:14 20:14 20:14 MCV MCH MCHC RDW Plt Count MPV Immature Gran % (Auto) Neut % (Auto) Lymph % (Auto) [place] % (Auto) Eos % (Auto) Baso % (Auto) Lymph # (Auto) [place] # (Auto) Eos # (Auto) Baso # (Auto) Abs Immat Gran (auto) Absolute Neuts (auto) Absolute Nucleated RBC Nucleated RBC % (auto) Anion Gap Estim Creat Clear Calc Estimated GFR POC Glucose Random Glucose Calcium B-Natriuretic Peptide 66 Urine Color YELLOW Urine Appearance CLEAR Urine pH 6.0 Ur Specific [place] 1.025 Urine Protein 2+ H Urine Glucose (UA) NEG Urine Ketones NEG Urine Blood NEG Urine Nitrite NEG Ur Leukocyte Esterase NEG Urine RBC 0-2 Urine WBC 0-2 Ur Squamous Epith Cells TRACE Urine Bacteria TRACE Urine Osmolality Ur Random Sodium Urine Creatinine COVID-19 ([facility]OBERTO) Negative COVID-19 Clin Com See Note 08/18/21 08/18/21 08/18/21 21:08 21:08 23:05 MCV MCH MCHC RDW Plt Count MPV Immature Gran % (Auto) Neut % (Auto) Lymph % (Auto) [place] % (Auto) Eos % (Auto) Baso % (Auto) Lymph # (Auto) [place] # (Auto) Eos # (Auto) Baso # (Auto) Abs Immat Gran (auto) Absolute Neuts (auto) Absolute Nucleated RBC Nucleated RBC % (auto) Anion Gap Estim Creat Clear Calc Estimated GFR POC Glucose 199 H Random Glucose Calcium B-Natriuretic Peptide Urine Color Urine Appearance Urine pH Ur Specific [place] Urine Protein Urine Glucose (UA) Urine Ketones Urine Blood Urine Nitrite Ur Leukocyte Esterase Urine RBC Urine WBC Ur Squamous Epith Cells Urine Bacteria Urine Osmolality 401 Ur Random Sodium 87.0 Urine Creatinine 80.97 COVID-19 ([facility]OBERTO) COVID-19 Clin Com 08/18/21 08/19/21 08/19/21 23:11 00:59 05:18 MCV MCH MCHC RDW Plt Count MPV Immature Gran % (Auto) Neut % (Auto) Lymph % (Auto) [place] % (Auto) Eos % (Auto) Baso % (Auto) Lymph # (Auto) [place] # (Auto) Eos # (Auto) Baso # (Auto) Abs Immat Gran (auto) Absolute Neuts (auto) Absolute Nucleated RBC Nucleated RBC % (auto) Anion Gap 17 Estim Creat Clear Calc 19.0 Estimated GFR 11 POC Glucose 218 H Random Glucose 215 H Calcium 7.1 L D B-Natriuretic Peptide Urine Color Urine Appearance Urine pH Ur Specific [place] Urine Protein Urine Glucose (UA) Urine Ketones Urine Blood Urine Nitrite Ur Leukocyte Esterase Urine RBC Urine WBC Ur Squamous Epith Cells Urine Bacteria Urine Osmolality Ur Random Sodium 77.0 Urine Creatinine 78.59 COVID-19 ([facility]IGOBERTO) COVID-19 [employer] 08/19/21 08/19/21 08/19/21 06:23 07:16 Unknown MCV 90.1 MCH 30.2 MCHC 33.6 RDW 13.2 Plt Count 161 MPV 12.6 H Immature Gran % (Auto) 0.3 Neut % (Auto) 68.4 Lymph % (Auto) 19.6 L [place] % (Auto) 7.4 Eos % (Auto) 4.0 Baso % (Auto) 0.3 Lymph # (Auto) 1.1 L [place] # (Auto) 0.4 Eos # (Auto) 0.2 Baso # (Auto) 0.0 Abs Immat Gran (auto) 0.02 Absolute Neuts (auto) 4.0 Absolute Nucleated RBC 0.000 Nucleated RBC % (auto) 0.0 Anion Gap 15 Estim Creat Clear Calc 19.5 Estimated GFR 11 POC Glucose 143 H Random Glucose 172 H Calcium 7.4 L B-Natriuretic Peptide Urine Color Urine Appearance Urine pH Ur Specific [place] Urine Protein Urine Glucose (UA) Urine Ketones Urine Blood Urine Nitrite Ur Leukocyte Esterase Urine RBC Urine WBC Ur Squamous Epith Cells Urine Bacteria Urine Osmolality Ur Random Sodium Urine Creatinine COVID-19 (RIGOBERTO) COVID-19 Clin [facility] Assessment and Plan (1) Hypertensive urgency: Status: Acute (2) Acute kidney injury superimposed on chronic kidney disease: Status: Acute Assessment and Plan: This is a 60-year-old male with past medical history of hypertension, diabetes, CKD who presents to the hospital with complaints of hyperglycemia as well other symptoms including headache, dizziness, nausea and vomiting found to have uncontrolled HTN as well as MARNI on CKD uncontrolled HTN received po hydralazine, coreg in ED. BP improved somewhat at this time. denies nausea, dizziness, reports improvement in headache pt reports compliance with medication although compliance has been in question in the past - continue hydralazine, carvedilol, nifedipine - lisinopril, spironolactone, torsemide on hold for MARNI - renal Doppler ultrasound pending - nephrology consult MARNI on CKD - continue IV fluids - follow BMP - nephrology consult - hold lisinopril, spironolactone, torsemide headache improved. - likely secondary to hypertension - head CT negative diabetes - continue home insulin - will add low-dose sliding scale insulin - diabetic diet HLD -continue statin, lofibra Mood -continue trileptal, sertraline, perphenazine PUD -continue PPI jenni -cpap DVT prophylaxis: Heparin subQ attending: dr. villalobos Quality Stroke Does the patient have a stroke diagnosis?: No VTE Prior VTE?: No VTE Risk Level:: Medical - moderate - high VTE Device Contraindication: Treatment Not Indicated VTE Drug Contraindication: N/A - Med Ordered
[2021-08-19] MEDS: Sertraline HCL 100 MG TABLET 200 MG PO (10:36)
[2021-08-19] MEDS: Aspirin Enteric Coated 81 MG TABLET.DR PO (10:37)
[2021-08-19] MEDS: carvediloL 25 MG TABLET PO ×2 (10:37→21:35)
[2021-08-19] MEDS: OXcarbazepine 300 MG TABLET PO ×2 (10:37→21:35)
[2021-08-19] MEDS: Gabapentin 600 MG TABLET PO ×3 (10:37→21:35)
[2021-08-19] MEDS: Cholecalciferol (Vitamin D3) 25 MCG TABLET 50 MCG PO (10:38)
[2021-08-19] MEDS: Insulin Glargine,Hum.rec.anlog 100 UNIT/ML 10 ML VIAL 48 UNIT SUBCUT (10:38)
[2021-08-19 11:08] LABS: Glucose, Whole Blood 154 mg/dL (60-115)
--- NOTE | 2021-08-19 11:47 | MHC.CM.PN ---
CM ATTEMPTED TO SEE PT WHO WAS SLEEPING CM TO REVISIT
[2021-08-19] MEDS: Heparin Sodium,Porcine 5,000 UNIT/ML VIAL 5000 UNIT SUBCUT ×2 (11:48→22:53)
[2021-08-19] MEDS: Insulin Lispro 100 UNIT/ML 3 ML VIAL SUBCUT ×2 (11:50→17:22)
--- NOTE | 2021-08-19 14:15 | P.CONNP_ITS ---
History of Present Illness Reason for Consult Consult date: 08/19/21 Reason for consult: MARNI Chief Complaint Chief complaint: Hypertensive urgency, MARNI on CKD History of Present Illness Narrative: 60 yearold gentleman with CKD 4 at baseline presents to hospital with multiple complaints including hyperglycemia as well as elevated blood pressure, headache, dizziness, nausea vomiting. In the ED, patient was found to have blood pressure of 196/72. ? He now reports improvement in his headache, no change in vision, denies any chest pain palpitations or shortness of breath, no abdominal pain , with resolution of nausea . He has no diarrhea or urinary symptoms.? He reports chronic lower extremity edema that has not changed. His BUN was 78 with creatinine of 5.92. Patient was admitted for further management. Nephrology has been consulted to assist in his clinical care during his current hospital stay Review of Systems Review of Systems Yes all other systems are reviewed and are negative PMFSH Past Medical History Medical History Abnormal biopsy of kidney Anxiety Asthma CHF (congestive heart failure) Chronic kidney disease (CKD) Chronic kidney disease, stage 4 (severe) COPD (chronic obstructive pulmonary disease) Depression Depression with anxiety Diabetes mellitus with hyperglycemia, with long-term current use of insulin Diverticulitis Elevated cholesterol Erectile dysfunction History of alcohol abuse History of headache HTN (hypertension) Hx of pancreatitis Hypertension Hypertensive crisis Hypertriglyceridemia On beta doron at home Pancreatitis Peptic ulcer Proteinuria Sleep apnea Type 2 diabetes mellitus with chronic kidney disease Type 2 diabetes mellitus with hyperglycemia, with long-term current use of insulin Type 2 diabetes mellitus with polyneuropathy Family History Family History Mother Diabetes Surgical History Surgical History Hx of colonoscopy Hx of right inguinal hernia repair Social History Social History Household Members: None Housing: Apartment Do you presently have visiting nurse or other home services: Yes Alcohol intake: never Patient Tobacco Use Status: Former Tobacco user Cigarettes Per Day: 4 Years Smoked: 30 Patient Interested in Nicotine Replacement: No Second Hand Smoke Exposure: Yes Use of substances other than those prescribed or required for medical reasons: No Currently Displaying Signs/Symptoms of Drug Intoxication Withdrawal: No Have you been hit, kicked, punched, or otherwise hurt by someone within the past year? If so, by whom?: No Do you feel safe in your current relationship?: No Is there a partner from a previous relationship who is making you feel unsafe now?: No Are you made to feel afraid or neglected: No Spiritual Healthcare Practices: none reported Advance Directives: No Advance Directives Information Provided: Yes Do you have thoughts of harming others: None Do you have a plan to hurt others: No Plan Recently lost weight without trying: No Poor oral hygiene: No service: No Current occupational status: retired Generate Allergies Allergy/AdvReac Type Severity Reaction Status Date / Time No Known Allergies Allergy Verified 08/18/21 21:21 Active Medications: Current Medications Acetaminophen (Acetaminophen 325 Mg Tablet) 650 mg PO Q6H PRN PRN Reason: Pain, Mild (Pain Scale 1-3) Albuterol/Ipratropium (Albuterol/Iprat 2.5/0.5mg 3 Ml Ampul.Neb) 3 ml INHALE RQ4H PRN PRN Reason: Shortness of Breath/Wheezing Last Admin: 08/19/21 02:54 Dose: 3 ml Documented by: Aspirin (Aspirin Enteric Coated 81 Mg Tablet.Dr) 81 mg PO DAILY [facility] Last Admin: 08/19/21 10:37 Dose: 81 mg Documented by: Atorvastatin Calcium (Atorvastatin Calcium 80 Mg Tablet) 80 mg PO BEDTIME [facility] Carvedilol (Carvedilol 25 Mg Tablet) 25 mg PO BID [facility]; Protocol Last Admin: 08/19/21 10:37 Dose: 25 mg Documented by: Dextrose (Dextrose 50 % 25 Gm/50 Ml Vial) 25 gm IVPUSH Q15M PRN; Protocol PRN Reason: per Hypoglycemia Standing Ord. Fenofibrate (Fenofibrate,Micronized 134 Mg Capsule) 134 mg PO BEDTIME [facility] Last Admin: 08/19/21 01:13 Dose: 134 mg Documented by: Fluticasone Propionate (Fluticasone Propionate 250 Mcg Blst.W.Dev) 2 puff INHALE RBID [facility] Gabapentin (Gabapentin 600 Mg Tablet) 600 mg PO TID [facility] Last Admin: 08/19/21 10:37 Dose: 600 mg Documented by: Glucose (Glucose Gel 15 Gm Gel..Gram.) 15 gm PO Q15M PRN; Protocol PRN Reason: per Hypoglycemia Standing Ord. Heparin Sodium (Porcine) (Heparin Sodium,Porcine 5,000 Unit/Ml Vial) 5,000 unit SUBCUT Q12H [facility] Last Admin: 08/19/21 11:48 Dose: 5,000 unit Documented by: Hydralazine HCl (Hydralazine Hcl 50 Mg Tablet) 100 mg PO TID [facility]; Protocol Lactated Ringer's (Lr) 1,000 mls @ 100 mls/hr IVCONT .Q10H [facility] Last Admin: 08/19/21 11:50 Dose: 100 mls/hr Documented by: Insulin Glargine (Insulin Glargine,Hum.Rec.Anlog 100 Unit/Ml 10 Ml Vial) 48 unit SUBCUT DAILY [facility] Last Admin: 08/19/21 10:38 Dose: 48 unit Documented by: Insulin Human Lispro (Insulin Lispro 100 Unit/Ml 3 Ml Vial) 0 unit SUBCUT QIDACHS [facility]; Protocol Last Admin: 08/19/21 11:50 Dose: 2 unit Documented by: Nifedipine (Nifedipine Er 60 Mg Tab.Er.24) 120 mg PO BEDTIME [facility] Last Admin: 08/19/21 01:21 Dose: 120 mg Documented by: Omeprazole (Omeprazole 40 Mg Capsule.Dr) 40 mg PO DAILY@0630 [facility] Last Admin: 08/19/21 06:38 Dose: 40 mg Documented by: Ondansetron HCl (Ondansetron Hcl 4 Mg/2 Ml Vial) 4 mg IVPUSH Q8H PRN PRN Reason: Nausea and Vomiting Oxcarbazepine (Oxcarbazepine 300 Mg Tablet) 300 mg PO BID [facility] Last Admin: 08/19/21 10:37 Dose: 300 mg Documented by: Oxycodone HCl (Oxycodone Hcl Immed Release 5 Mg Tablet) 5 mg PO Q6H PRN PRN Reason: Pain, Severe (Pain Scale 7-10) Last Admin: 08/19/21 01:13 Dose: 5 mg Documented by: Perphenazine (Perphenazine 4 Mg Tablet) 4 mg PO BID [facility] Last Admin: 08/19/21 10:38 Dose: 4 mg Documented by: Pharmacy Consult (Consult Rx Perform Med Rec) 1 each MISCELLANE ONCE PRN PRN Reason: Consult order Sertraline HCl (Sertraline Hcl 100 Mg Tablet) 200 mg PO DAILY [facility] Last Admin: 08/19/21 10:36 Dose: 200 mg Documented by: Tramadol HCl (Tramadol Hcl 50 Mg Tablet) 100 mg PO Q8H PRN PRN Reason: Pain Vitamin D (Cholecalciferol (Vitamin D3) 25 Mcg Tablet) 50 mcg PO DAILY [facility] Last Admin: 08/19/21 10:38 Dose: 50 mcg Documented by: Zolpidem Tartrate (Zolpidem Tartrate 5 Mg Tablet) 10 mg PO BEDTIME [facility] Last Admin: 08/18/21 23:40 Dose: 10 mg Documented by: Home Medications Medication Instructions Recorded Confirmed Last Taken Type aspirin 81 mg tablet,delayed 81 mg PO QAM 07/25/20 08/18/21 02/02/21 History release (Aspir-) atorvastatin 80 mg tablet 80 mg PO BEDTIME 07/25/20 08/18/21 02/02/21 History carvedilol 25 mg tablet 25 mg PO BID 07/25/20 08/18/21 02/02/21 History cholecalciferol (vitamin D3) 25 50 mcg PO DAILY 07/25/20 08/18/21 02/02/21 History mcg (1,000 unit) capsule (Vitamin D3) fenofibrate nanocrystallized 145 145 mg PO QPM 07/25/20 08/18/21 02/02/21 History mg tablet gabapentin 600 mg tablet 600 mg PO TID 07/25/20 08/18/21 02/02/21 History oxcarbazepine 300 mg tablet 300 mg PO BID 07/25/20 08/18/21 02/02/21 History perphenazine 4 mg tablet 4 mg PO BID 07/25/20 08/18/21 02/02/21 History sertraline 100 mg tablet 200 mg PO DAILY 07/25/20 08/18/21 02/02/21 History spironolactone 25 mg tablet 50 mg PO DAILY@1200 07/25/20 08/18/21 02/02/21 History tramadol 50 mg tablet 2 tab PO Q8H PRN 01/23/21 08/18/21 02/02/21 History zolpidem 10 mg tablet 1 tab PO BEDTIME 01/23/21 08/18/21 02/02/21 History fluticasone propionate 220 2 puff PO BID 08/18/21 08/18/21 Unknown History mcg/actuation HFA aerosol inhaler (Flovent HFA) nifedipine 30 mg tablet,extended 120 mg PO QPM 08/18/21 08/18/21 Unknown History release Physical Exam Vital Signs: Last Vital Signs Temp 97 F 08/19/21 11:04 Pulse 83 08/19/21 11:04 Resp 19 08/19/21 11:04 BP 121/70 08/19/21 11:04 Pulse Ox 95 08/19/21 11:04 Body Mass Index 36.8 Const General: no acute distress Eyes EOM: EOMs intact bilaterally Neck Neck: Yes supple Resp Auscultation: diminished lung sounds Cardio Jugular venous distension: no JVD GI Palpation (GI): Soft to palpation Neuro General: moves all extremities Results Lab Results Result Diagrams: 08/19/21 06:23 08/19/21 Unknown Lab results: Chemistry 08/18/21 08/18/21 08/19/21 20:14 23:11 Unknown Sodium 144 142 139 Potassium 4.2 3.9 4.1 Carbon Dioxide 25 20 L 22 BUN 78 H 73 H 74 H Creatinine 5.92 H* 5.38 H* 5.29 H* Calcium 7.6 L D 7.1 L D 7.4 L Hematology 08/18/21 08/19/21 20:14 06:23 WBC 6.5 5.8 Hgb 10.2 L 9.8 L Plt Count 158 L 161 Urinalysis 08/18/21 20:14 Urine Color YELLOW Urine Appearance CLEAR Urine pH 6.0 Ur Specific [place] 1.025 Urine Protein 2+ H Urine Glucose (UA) NEG Urine Ketones NEG Urine Blood NEG Urine Nitrite NEG Ur Leukocyte Esterase NEG Urine RBC 0-2 Urine WBC 0-2 Ur Squamous Epith Cells TRACE Urine Studies 08/18/21 08/18/21 08/19/21 21:08 21:08 05:18 Urine Osmolality 401 Urine Creatinine 80.97 78.59 Assessment and Plan (1) Acute kidney injury superimposed on chronic kidney disease: Status: Acute MARNI due to tubular injury Has CKD 4 at baseline Urine output mediocre No reason to suspect GN/AIN ACEI/Diuretics on hold Getting IV fluids No indication for renal replacement Continue current supportive care for now Procedures Date of Service Date of Service: 08/19/21
[2021-08-19 16:10] LABS: Glucose, Whole Blood 170 mg/dL (60-115)
[2021-08-19] MEDS: hydrALAZINE HCl 50 MG TABLET 100 MG PO ×2 (17:22→21:35)
[2021-08-19] MEDS: Lactated Ringers 1,000 ML 70 ML IVCONT (17:26)
[2021-08-19 19:31] LABS: Glucose, Whole Blood 147 mg/dL (60-115)
[2021-08-19] MEDS: Atorvastatin Calcium 80 MG TABLET PO (21:35)
[2021-08-20] VITALS (14 sets, daily range): BP systolic 166–195; BP diastolic 62–84; PULSE 57–67; RESP 18–20; TEMP 35.5–36.9; O2SAT 95–98; BMI 36.8
[2021-08-20 06:19] LABS: Anion Gap 13 (12-20); Blood Urea Nitrogen 71 mg/dL (9-16); Calcium 7.8 mg/dL (8.4-10.2); Carbon Dioxide 24 mmol/L (22-29); Chloride 110 mmol/L (96-108); Creatinine Clr Calc Pharmacy 21.2; Estimated Glomerular Filt Rate 12; Glucose Random 117 mg/dL (60-115); Potassium 4.4 mmol/L (3.3-5.1); Sodium 143 mmol/L (135-145)
[2021-08-20 07:15] LABS: Glucose, Whole Blood 113 mg/dL (60-115)
[2021-08-20] MEDS: Aspirin Enteric Coated 81 MG TABLET.DR PO (09:48)
[2021-08-20] MEDS: Omeprazole 40 MG CAPSULE.DR PO (09:48)
[2021-08-20] MEDS: Cholecalciferol (Vitamin D3) 25 MCG TABLET 50 MCG PO (09:49)
[2021-08-20] MEDS: hydrALAZINE HCl 50 MG TABLET 100 MG PO ×3 (09:49→21:34)
[2021-08-20] MEDS: Perphenazine 4 MG TABLET PO ×2 (09:50→21:36)
[2021-08-20] MEDS: Gabapentin 600 MG TABLET PO ×3 (09:50→21:35)
[2021-08-20] MEDS: carvediloL 25 MG TABLET PO ×2 (09:50→21:36)
[2021-08-20] MEDS: Sertraline HCL 100 MG TABLET 200 MG PO (09:50)
[2021-08-20] MEDS: OXcarbazepine 300 MG TABLET PO ×2 (09:50→21:35)
[2021-08-20] MEDS: Lactated Ringers 1,000 ML 70 ML IVCONT ×2 (09:51→23:25)
[2021-08-20] MEDS: Insulin Glargine,Hum.rec.anlog 100 UNIT/ML 10 ML VIAL 48 UNIT SUBCUT (09:53)
--- NOTE | 2021-08-20 10:06 | HO.PM.IMPN ---
Subjective Subjective Date of Service: 08/20/21 Interval History: seen and examined this morning follow up for marni, uncontrolled HTN no overnight events denies headache, nausea/vomiting, dizziness, SOB, chest pain blood pressure improved Review of Systems Review of Systems: Yes all other systems are reviewed and are negative Constitutional Constitutional: Denies chills and Denies fever(s) Cardiovascular Cardiovascular: Denies chest pain Respiratory Respiratory: Denies cough Gastrointestinal Gastrointestinal: Denies abdominal pain Physical Exam Vital Signs: Vital Signs: Last Vital Signs Temp 98 F 08/20/21 06:53 Pulse 61 08/20/21 09:49 Resp 20 08/20/21 06:53 BP 186/77 H 08/20/21 09:49 Pulse Ox 95 08/20/21 06:53 Body Mass Index 36.8 Const: Nutritional Appearance: well nourished Orientation/consciousness: patient oriented x3 HENMT: Head: Yes normocephalic and Yes atraumatic Eyes: Sclerae: sclerae normal Chest: Chest palpation & inspection: normal inspection of the chest Resp: Effort & Inspection: normal respiratory effort and no respiratory distress Cardio: Rate: regular rate Rhythm: regular rhythm GI: Palpation (GI): Soft to palpation and nontender Neuro: General: patient oriented x3 Cranial nerves: Yes CN's II-XII intact bilaterally and Yes Bilaterally intact EOM present Extrem: Other: trace edema b/l legs Objective Data Active Medications Acetaminophen (Acetaminophen 325 Mg Tablet) 650 mg PO Q6H PRN PRN Reason: Pain, Mild (Pain Scale 1-3) Albuterol/Ipratropium (Albuterol/Iprat 2.5/0.5mg 3 Ml Ampul.Neb) 3 ml INHALE RQ4H PRN PRN Reason: Shortness of Breath/Wheezing Last Admin: 08/19/21 02:54 Dose: 3 ml Documented by: RAMIN Aspirin (Aspirin Enteric Coated 81 Mg Tablet.) 81 mg PO DAILY [facility] Last Admin: 08/20/21 09:48 Dose: 81 mg Documented by: MISAEL Atorvastatin Calcium (Atorvastatin Calcium 80 Mg Tablet) 80 mg PO BEDTIME [facility] Last Admin: 08/19/21 21:35 Dose: 80 mg Documented by: KARMEN Carvedilol (Carvedilol 25 Mg Tablet) 25 mg PO BID [facility]; Protocol Last Admin: 08/20/21 09:50 Dose: 25 mg Documented by: MISAEL Dextrose (Dextrose 50 % 25 Gm/50 Ml Vial) 25 gm IVPUSH Q15M PRN; Protocol PRN Reason: per Hypoglycemia Standing Ord. Fenofibrate (Fenofibrate,Micronized 134 Mg Capsule) 134 mg PO BEDTIME [facility] Last Admin: 08/19/21 21:35 Dose: 134 mg Documented by: KARMEN Fluticasone Propionate (Fluticasone Propionate 250 Mcg Blst.W.Dev) 2 puff INHALE RBID [facility] Last Admin: 08/20/21 07:58 Dose: Not Given Documented by: SY Non-Admin Reason: Patient Refused Gabapentin (Gabapentin 600 Mg Tablet) 600 mg PO TID [facility] Last Admin: 08/20/21 09:50 Dose: 600 mg Documented by: MISAEL Glucose (Glucose Gel 15 Gm Gel..Gram.) 15 gm PO Q15M PRN; Protocol PRN Reason: per Hypoglycemia Standing Ord. Heparin Sodium (Porcine) (Heparin Sodium,Porcine 5,000 Unit/Ml Vial) 5,000 unit SUBCUT Q12H [facility] Last Admin: 08/19/21 22:53 Dose: 5,000 unit Documented by: KARMEN Hydralazine HCl (Hydralazine Hcl 50 Mg Tablet) 100 mg PO TID [facility]; Protocol Last Admin: 08/20/21 09:49 Dose: 100 mg Documented by: MISAEL Lactated Ringer's (Lr) 1,000 mls @ 70 mls/hr IVCONT .[id number] [facility] Last Admin: 08/20/21 09:51 Dose: 70 mls/hr Documented by: MISAEL Insulin Glargine (Insulin Glargine,Hum.Rec.Anlog 100 Unit/Ml 10 Ml Vial) 48 unit SUBCUT DAILY [facility] Last Admin: 08/20/21 09:53 Dose: 48 unit Documented by: MISAEL Insulin Human Lispro (Insulin Lispro 100 Unit/Ml 3 Ml Vial) 0 unit SUBCUT QIDACHS [facility]; Protocol Last Admin: 08/20/21 07:37 Dose: Not Given Documented by: MISAEL Non-Admin Reason: No Insulin Coverage Nifedipine (Nifedipine Er 60 Mg Tab.Er.24) 120 mg PO BEDTIME [facility] Last Admin: 08/19/21 21:35 Dose: 120 mg Documented by: KARMEN Omeprazole (Omeprazole 40 Mg Capsule.Dr) 40 mg PO DAILY@0630 [facility] Last Admin: 08/20/21 09:48 Dose: 40 mg Documented by: MISAEL Ondansetron HCl (Ondansetron Hcl 4 Mg/2 Ml Vial) 4 mg IVPUSH Q8H PRN PRN Reason: Nausea and Vomiting Oxcarbazepine (Oxcarbazepine 300 Mg Tablet) 300 mg PO BID [facility] Last Admin: 08/20/21 09:50 Dose: 300 mg Documented by: MISAEL Oxycodone HCl (Oxycodone Hcl Immed Release 5 Mg Tablet) 5 mg PO Q6H PRN PRN Reason: Pain, Severe (Pain Scale 7-10) Last Admin: 08/19/21 01:13 Dose: 5 mg Documented by: PEREZ Perphenazine (Perphenazine 4 Mg Tablet) 4 mg PO BID [facility] Last Admin: 08/20/21 09:50 Dose: 4 mg Documented by: MISAEL Pharmacy Consult (Consult Rx Perform Med Rec) 1 each MISCELLANE ONCE PRN PRN Reason: Consult order Sertraline HCl (Sertraline Hcl 100 Mg Tablet) 200 mg PO DAILY [facility] Last Admin: 08/20/21 09:50 Dose: 200 mg Documented by: MISAEL Tramadol HCl (Tramadol Hcl 50 Mg Tablet) 100 mg PO Q8H PRN PRN Reason: Pain Vitamin D (Cholecalciferol (Vitamin D3) 25 Mcg Tablet) 50 mcg PO DAILY [facility] Last Admin: 08/20/21 09:49 Dose: 50 mcg Documented by: MISAEL Zolpidem Tartrate (Zolpidem Tartrate 5 Mg Tablet) 10 mg PO BEDTIME [facility] Last Admin: 08/19/21 22:53 Dose: Not Given Documented by: KARMEN Non-Admin Reason: Pain Labs CBC & Chem 7: 08/19/21 06:23 08/20/21 05:03 Labs: Laboratory Results - last 24 hr 08/19/21 08/19/21 08/19/21 11:04 16:07 19:27 Anion Gap Estim Creat Clear Calc Estimated GFR POC Glucose 154 H 170 H 147 H Random Glucose Calcium 08/20/21 08/20/21 05:03 06:54 Anion Gap 13 Estim Creat Clear Calc 21.2 Estimated GFR 12 POC Glucose 113 Random Glucose 117 H Calcium 7.8 L Assessment and Plan (1) Hypertensive urgency: Status: Acute (2) Acute kidney injury superimposed on chronic kidney disease: Status: Acute Assessment and Plan: This is a 60-year-old male with past medical history of hypertension, diabetes, CKD who presents to the hospital with complaints of hyperglycemia as well other symptoms including headache, dizziness, nausea and vomiting found to have uncontrolled HTN as well as MARNI on CKD uncontrolled HTN received po hydralazine, coreg in ED. BP improved somewhat at this time. denies nausea, dizziness, reports improvement in headache pt reports compliance with medication although compliance has been in question in the past - continue hydralazine, carvedilol, nifedipine - lisinopril, spironolactone, torsemide on hold for MARNI - renal Doppler ultrasound shows no evidence of MIRIAM - nephrology following MARNI on CKD4 Creatinine improving likely secondary to ATN - continue gentle IV fluids - follow BMP - hold lisinopril, spironolactone, torsemide - nephrology following headache resolved - likely secondary to hypertension - head CT negative diabetes - continue home insulin - will add low-dose sliding scale insulin - diabetic diet HLD -continue statin, lofibra Mood -continue trileptal, sertraline, perphenazine PUD -continue PPI jenni -cpap DVT prophylaxis: Heparin subQ attending: dr. Tony Quality Stroke Does the patient have a stroke diagnosis?: No VTE Prior VTE?: No VTE Risk Level:: Medical - moderate - high VTE Device Contraindication: Treatment Not Indicated VTE Drug Contraindication: N/A - Med Ordered
[2021-08-20 11:24] LABS: Glucose, Whole Blood 163 mg/dL (60-115)
--- NOTE | 2021-08-20 11:43 | MHC.CM.PN ---
Lives at home alone, owns cane, no previous services. Does not drive, takes bus for transport. At time of D/C, his sister will transport him home. CM to follow.
[2021-08-20] MEDS: Insulin Lispro 100 UNIT/ML 3 ML VIAL SUBCUT ×2 (13:00→21:36)
[2021-08-20] MEDS: Heparin Sodium,Porcine 5,000 UNIT/ML VIAL 5000 UNIT SUBCUT ×2 (13:00→21:36)
--- NOTE | 2021-08-20 13:06 | PC.NURSE ---
Pt stating that he feels mildly dizzy. BP remains elevated. 177/80. HR in 60s. Reported to PA.
--- NOTE | 2021-08-20 14:17 | PM.PNNEP ---
Subjective Subjective Date of Service: 08/20/21 Interval history: Events noted. All recent data reviewed. Renal functions better Physical Exam Vital Signs: Vital Signs: Last Vital Signs Temp 96 F L 08/20/21 11:18 Pulse 61 08/20/21 13:05 Resp 19 08/20/21 11:18 BP 177/80 H 08/20/21 13:05 Pulse Ox 97 08/20/21 11:18 Body Mass Index 36.8 Const: General: no acute distress Eyes: EOM: EOMs intact bilaterally Neck: Neck: Yes supple Resp: Auscultation: diminished lung sounds Cardio: Jugular venous distension: no JVD GI: Palpation (GI): Soft to palpation Neuro: General: moves all extremities Objective Data Labs CBC & Chem 7: 08/19/21 06:23 08/20/21 05:03 Labs: Laboratory Results - last 24 hr 08/19/21 08/19/21 08/20/21 16:07 19:27 05:03 Sodium 143 Potassium 4.4 Chloride 110 H Carbon Dioxide 24 Anion Gap 13 BUN 71 H Creatinine 4.87 H* Estim Creat Clear Calc 21.2 Estimated GFR 12 POC Glucose 170 H 147 H Random Glucose 117 H Calcium 7.8 L 08/20/21 08/20/21 06:54 11:16 Sodium Potassium Chloride Carbon Dioxide Anion Gap BUN Creatinine Estim Creat Clear Calc Estimated GFR POC Glucose 113 163 H Random Glucose Calcium Procedures Date of Service Date of Service: 08/20/21 Assessment & Plan Assessment and plan (1) Acute kidney injury superimposed on chronic kidney disease: Status: Acute Assessment and Plan: ? MARNI due to tubular injury(improved) Has CKD 4 at baseline Urine output better No reason to suspect GN/AIN ACEI/Diuretics on hold Getting IV fluids No indication for renal replacement Could start Imdur 30 mg daily Continue current supportive care for now Time Spent With Patient Time: Total time spent is greater than 50% in coordination of care (as documented) at patient's floor/unit and/or counseling patient: Progress Note: Quality Stroke Does the patient have a stroke diagnosis?: No
[2021-08-20 16:07] LABS: Glucose, Whole Blood 139 mg/dL (60-115)
[2021-08-20 20:01] LABS: Glucose, Whole Blood 188 mg/dL (60-115)
[2021-08-20] MEDS: Zolpidem Tartrate 5 MG TABLET 10 MG PO (21:35)
[2021-08-20] MEDS: NIFEdipine ER 60 MG TAB.ER.24 120 MG PO (21:35)
[2021-08-20] MEDS: Fenofibrate,Micronized 134 MG CAPSULE PO (21:35)
[2021-08-20] MEDS: Atorvastatin Calcium 80 MG TABLET PO (21:35)
[2021-08-20] MEDS: Albuterol/Iprat 2.5/0.5MG 3 ML AMPUL.NEB INHALE (22:15)
[2021-08-20] MEDS: traMADoL HCL 50 MG TABLET 100 MG PO (23:27)
[2021-08-21] VITALS (9 sets, daily range): BP systolic 148–197; BP diastolic 65–82; PULSE 59–77; RESP 15–19; TEMP 36.2–37; O2SAT 95–97
--- NOTE | 2021-08-21 07:04 | P.CDIC_ITS ---
CDI Concurrent Query Documentation Clarification: PHYSICIAN'S DOCUMENTATION REQUEST Date of Query: 08/21/21 0705 Patient Name: Jose D Dickens Admit Date: 08/18/21 Dear Doctor, A review of the medical record indicates additional documentation may be needed. Please review below and update the documentation accordingly. Risk Factors/Clinical Indicators/Treatments BUN 78 Creatinine 5.95 PMH: CKD 4 Per Nephrology note 08/20/21: MARNI due to tubular injury Based on the above, could you clarify in the Progress Notes the appropriate diagnosis, if significant, that supports the above abnormalities and additional evaluation, monitoring, and/or treatment rendered: MARNI with tubular necrosis MARNI with cortical necrosis MARNI with medullary necrosis * Other (please specify) * Unable to determine Use of terms such as suspected, likely, concern for, or probable (associated with a specific diagnosis that is being evaluated, monitored, or treated as if it exists) are acceptable and can be coded in the inpatient setting, when documented at the time of discharge. Thank you, Vita Cantu RN Extension: [phone] Please use your independent medical judgment in providing your response. THIS QUERY IS PART OF THE PERMANENT MEDICAL RECORD Provider Response: Other Other Diagnosis: MARNI on CKD4 due to ATN
[2021-08-21] MEDS: OXcarbazepine 300 MG TABLET PO ×2 (07:25→20:50)
[2021-08-21] MEDS: hydrALAZINE HCl 50 MG TABLET 100 MG PO ×3 (07:25→20:49)
[2021-08-21] MEDS: carvediloL 25 MG TABLET PO ×2 (07:25→20:50)
[2021-08-21] MEDS: Insulin Glargine,Hum.rec.anlog 100 UNIT/ML 10 ML VIAL 48 UNIT SUBCUT (07:25)
[2021-08-21] MEDS: oxyCODONE HCl Immed Release 5 MG TABLET PO ×3 (07:25→17:35)
[2021-08-21] MEDS: Perphenazine 4 MG TABLET PO ×2 (07:26→20:50)
[2021-08-21] MEDS: Sertraline HCL 100 MG TABLET 200 MG PO (07:26)
[2021-08-21] MEDS: Gabapentin 600 MG TABLET PO ×3 (07:26→20:49)
[2021-08-21] MEDS: Aspirin Enteric Coated 81 MG TABLET.DR PO (07:26)
[2021-08-21] MEDS: Cholecalciferol (Vitamin D3) 25 MCG TABLET 50 MCG PO (07:26)
[2021-08-21 07:55] LABS: Glucose, Whole Blood 116 mg/dL (60-115)
[2021-08-21 09:52] LABS: Anion Gap 13 (12-20); Blood Urea Nitrogen 59 mg/dL (9-16); Calcium 8.1 mg/dL (8.4-10.2); Carbon Dioxide 26 mmol/L (22-29); Chloride 108 mmol/L (96-108); Creatinine Clr Calc Pharmacy 24.2; Estimated Glomerular Filt Rate 14; Glucose Random 186 mg/dL (60-115); Potassium 4.3 mmol/L (3.3-5.1); Sodium 143 mmol/L (135-145)
--- NOTE | 2021-08-21 10:12 | PM.IMPN ---
Progress Note: A&P (1) Hypertensive urgency: Status: Acute (2) Type 2 diabetes mellitus with hyperglycemia, with long-term current use of insulin: Status: Acute (3) Acute kidney injury superimposed on chronic kidney disease: Status: Acute Assessment and Plan: This is a 60-year-old male with past medical history of hypertension, diabetes, CKD who presents to the hospital with complaints of hyperglycemia as well other symptoms including headache, dizziness, nausea and vomiting? found to have uncontrolled HTN as well as MARNI on CKD uncontrolled HTN pt reports compliance with medication although compliance has been in question in the past - continue hydralazine, carvedilol, nifedipine - lisinopril, spironolactone, torsemide on hold for MARNI - renal Doppler ultrasound shows no evidence of MIRIAM - nephrology following MARNI on CKD4 Creatinine improving likely secondary to ATN - continue gentle IV fluids - follow BMP - hold lisinopril, spironolactone, torsemide - nephrology following headache resolved - likely secondary to hypertension - head CT negative diabetes - continue home insulin - will add low-dose sliding scale insulin - diabetic diet HLD -continue statin, lofibra Mood -continue trileptal, sertraline, perphenazine PUD -continue PPI jenni -cpap DVT prophylaxis:? Heparin subQ attending Dr. Delgado Subjective Subjective Date of Service: 08/21/21 Review of Systems Follow-up hypertension Blood pressure still elevated but improved, no headache Good appetite Physical Exam Vital Signs: Vital Signs: Last Vital Signs Temp 97.1 F 08/21/21 07:46 Pulse 65 08/21/21 07:46 Resp 18 08/21/21 07:46 BP 170/78 H 08/21/21 07:46 Pulse Ox 96 08/21/21 07:46 Body Mass Index 36.8 Appearing in no acute distress lung sounds are clear to auscultation heart regular rate rhythm, clear S1, S2 positive bowel sounds, abdomen is soft, nontender neuro patient is alert x3, no focal deficits Objective Data Current Medications Acetaminophen (Acetaminophen 325 Mg Tablet) 650 mg PO Q6H PRN PRN Reason: Pain, Mild (Pain Scale 1-3) Albuterol/Ipratropium (Albuterol/Iprat 2.5/0.5mg 3 Ml Ampul.Neb) 3 ml INHALE RQ4H PRN PRN Reason: Shortness of Breath/Wheezing Last Admin: 08/20/21 22:15 Dose: 3 ml Documented by: Aspirin (Aspirin Enteric Coated 81 Mg Tablet.) 81 mg PO DAILY [facility] Last Admin: 08/21/21 07:26 Dose: 81 mg Documented by: Atorvastatin Calcium (Atorvastatin Calcium 80 Mg Tablet) 80 mg PO BEDTIME [facility] Last Admin: 08/20/21 21:35 Dose: 80 mg Documented by: Carvedilol (Carvedilol 25 Mg Tablet) 25 mg PO BID [facility]; Protocol Last Admin: 08/21/21 07:25 Dose: 25 mg Documented by: Dextrose (Dextrose 50 % 25 Gm/50 Ml Vial) 25 gm IVPUSH Q15M PRN; Protocol PRN Reason: per Hypoglycemia Standing Ord. Fenofibrate (Fenofibrate,Micronized 134 Mg Capsule) 134 mg PO BEDTIME [facility] Last Admin: 08/20/21 21:35 Dose: 134 mg Documented by: Fluticasone Propionate (Fluticasone Propionate 250 Mcg Blst.W.Dev) 2 puff INHALE RBID [facility] Last Admin: 08/20/21 21:34 Dose: Not Given Documented by: Gabapentin (Gabapentin 600 Mg Tablet) 600 mg PO TID [facility] Last Admin: 08/21/21 07:26 Dose: 600 mg Documented by: Glucose (Glucose Gel 15 Gm Gel..Gram.) 15 gm PO Q15M PRN; Protocol PRN Reason: per Hypoglycemia Standing Ord. Heparin Sodium (Porcine) (Heparin Sodium,Porcine 5,000 Unit/Ml Vial) 5,000 unit SUBCUT Q12H [facility] Last Admin: 08/20/21 21:36 Dose: 5,000 unit Documented by: Hydralazine HCl (Hydralazine Hcl 50 Mg Tablet) 100 mg PO TID [facility]; Protocol Last Admin: 08/21/21 07:25 Dose: 100 mg Documented by: Lactated Ringer's (Lr) 1,000 mls @ 70 mls/hr IVCONT .[id number] [facility] Last Admin: 08/20/21 23:25 Dose: 70 mls/hr Documented by: Insulin Glargine (Insulin Glargine,Hum.Rec.Anlog 100 Unit/Ml 10 Ml Vial) 48 unit SUBCUT DAILY [facility] Last Admin: 08/21/21 07:25 Dose: 48 unit Documented by: Insulin Human Lispro (Insulin Lispro 100 Unit/Ml 3 Ml Vial) 0 unit SUBCUT QIDACHS [facility]; Protocol Last Admin: 08/21/21 07:48 Dose: Not Given Documented by: Nifedipine (Nifedipine Er 60 Mg Tab.Er.24) 120 mg PO BEDTIME [facility] Last Admin: 08/20/21 21:35 Dose: 120 mg Documented by: Omeprazole (Omeprazole 40 Mg Capsule.Dr) 40 mg PO DAILY@0630 [facility] Last Admin: 08/20/21 09:48 Dose: 40 mg Documented by: Ondansetron HCl (Ondansetron Hcl 4 Mg/2 Ml Vial) 4 mg IVPUSH Q8H PRN PRN Reason: Nausea and Vomiting Oxcarbazepine (Oxcarbazepine 300 Mg Tablet) 300 mg PO BID [facility] Last Admin: 08/21/21 07:25 Dose: 300 mg Documented by: Oxycodone HCl (Oxycodone Hcl Immed Release 5 Mg Tablet) 5 mg PO Q6H PRN PRN Reason: Pain, Severe (Pain Scale 7-10) Last Admin: 08/21/21 07:25 Dose: 5 mg Documented by: Perphenazine (Perphenazine 4 Mg Tablet) 4 mg PO BID [facility] Last Admin: 08/21/21 07:26 Dose: 4 mg Documented by: Pharmacy Consult (Consult Rx Perform Med Rec) 1 each MISCELLANE ONCE PRN PRN Reason: Consult order Sertraline HCl (Sertraline Hcl 100 Mg Tablet) 200 mg PO DAILY [facility] Last Admin: 08/21/21 07:26 Dose: 200 mg Documented by: Tramadol HCl (Tramadol Hcl 50 Mg Tablet) 100 mg PO Q8H PRN PRN Reason: Pain Last Admin: 08/20/21 23:27 Dose: 100 mg Documented by: Vitamin D (Cholecalciferol (Vitamin D3) 25 Mcg Tablet) 50 mcg PO DAILY [facility] Last Admin: 08/21/21 07:26 Dose: 50 mcg Documented by: Zolpidem Tartrate (Zolpidem Tartrate 5 Mg Tablet) 10 mg PO BEDTIME [facility] Last Admin: 08/20/21 21:35 Dose: 10 mg Documented by: Labs CBC & Chem 7: 08/19/21 06:23 08/21/21 09:03 Labs: Laboratory Results - last 24 hr 08/20/21 08/20/21 08/20/21 11:16 16:04 19:58 Anion Gap Estim Creat Clear Calc Estimated GFR POC Glucose 163 H 139 H 188 H Random Glucose Calcium 08/21/21 08/21/21 07:44 09:03 Anion Gap 13 Estim Creat Clear Calc 24.2 Estimated GFR 14 POC Glucose 116 H Random Glucose 186 H D Calcium 8.1 L Quality Stroke Does the patient have a stroke diagnosis?: No VTE Prior VTE?: No VTE Risk Level:: Medical - moderate - high VTE Device Contraindication: Treatment Not Indicated VTE Drug Contraindication: N/A - Med Ordered
[2021-08-21] MEDS: Heparin Sodium,Porcine 5,000 UNIT/ML VIAL 5000 UNIT SUBCUT ×2 (11:16→23:46)
[2021-08-21 11:43] LABS: Glucose, Whole Blood 155 mg/dL (60-115)
--- NOTE | 2021-08-21 11:45 | P.PNNP_ITS ---
Subjective Subjective Date of Service: 08/21/21 Principal diagnosis: MARNI on CKD Interval history: Events noted. All recent data reviewed. Renal functions better Seen and examined, events noted Physical Exam Vital Signs: Vital Signs: Last Vital Signs Temp 97.2 F 08/21/21 11:33 Pulse 59 08/21/21 11:33 Resp 15 08/21/21 11:33 BP 172/82 H 08/21/21 11:33 Pulse Ox 96 08/21/21 11:33 Body Mass Index 36.8 Const: General: no acute distress Eyes: EOM: EOMs intact bilaterally Neck: Neck: Yes supple Resp: Auscultation: diminished lung sounds Cardio: Jugular venous distension: no JVD GI: Palpation (GI): Soft to palpation Neuro: General: moves all extremities Objective Data Labs CBC & Chem 7: 08/19/21 06:23 08/21/21 09:03 Labs: Laboratory Results - last 24 hr 08/20/21 08/20/21 08/21/21 16:04 19:58 07:44 Sodium Potassium Chloride Carbon Dioxide Anion Gap BUN Creatinine Estim Creat Clear Calc Estimated GFR POC Glucose 139 H 188 H 116 H Random Glucose Calcium 08/21/21 08/21/21 09:03 11:31 Sodium 143 Potassium 4.3 Chloride 108 Carbon Dioxide 26 Anion Gap 13 BUN 59 H Creatinine 4.27 H* Estim Creat Clear Calc 24.2 Estimated GFR 14 POC Glucose 155 H Random Glucose 186 H D Calcium 8.1 L Procedures Date of Service Date of Service: 08/21/21 Assessment & Plan Assessment and plan (1) Acute kidney injury superimposed on chronic kidney disease: Status: Acute Assessment and Plan: ? 1. 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 Sever HTN: remains incr b/c off some of his nmeds; ques intolerance to combination of diuretic and MARIA A-I REC: ad cardura 2 mg bid; avoid MARIA A/ARB; d/c IVF; protect LUE; d/c planning suspect he will need to be on HD in next 3-6 months Time Spent With Patient Time: Total time spent is greater than 50% in coordination of care (as documented) at patient's floor/unit and/or counseling patient: Progress Note: Quality Stroke Does the patient have a stroke diagnosis?: No
[2021-08-21] MEDS: Insulin Lispro 100 UNIT/ML 3 ML VIAL SUBCUT (11:57)
[2021-08-21] MEDS: Doxazosin Mesylate 2 MG TABLET PO ×2 (11:58→20:50)
[2021-08-21] MEDS: Lactated Ringers 1,000 ML 70 ML IVCONT (11:58)
[2021-08-21] MEDS: traMADoL HCL 50 MG TABLET 100 MG PO (15:36)
[2021-08-21 15:58] LABS: Glucose, Whole Blood 114 mg/dL (60-115)
--- NOTE | 2021-08-21 17:32 | PC.NURSE ---
P elevated BP 188/80 pulse 61,SR on a monitor I CORNELIO Frost notified E will monitor
[2021-08-21 20:33] LABS: Glucose, Whole Blood 85 mg/dL (60-115)
[2021-08-21] MEDS: Fenofibrate,Micronized 134 MG CAPSULE PO (20:49)
[2021-08-21] MEDS: Atorvastatin Calcium 80 MG TABLET PO (20:49)
[2021-08-21] MEDS: NIFEdipine ER 60 MG TAB.ER.24 120 MG PO (20:49)
[2021-08-21] MEDS: Zolpidem Tartrate 5 MG TABLET 10 MG PO (20:50)
[2021-08-22] VITALS (12 sets, daily range): BP systolic 138–178; BP diastolic 74–82; PULSE 61–67; RESP 18–20; TEMP 36.3–37.3; O2SAT 93–96; BMI 37.0
[2021-08-22] MEDS: Omeprazole 40 MG CAPSULE.DR PO (05:41)
[2021-08-22 07:32] LABS: Anion Gap 14 (12-20); Blood Urea Nitrogen 60 mg/dL (9-16); Calcium 8.2 mg/dL (8.4-10.2); Carbon Dioxide 23 mmol/L (22-29); Chloride 109 mmol/L (96-108); Creatinine Clr Calc Pharmacy 24.4; Estimated Glomerular Filt Rate 14; Glucose Random 111 mg/dL (60-115); Potassium 4.4 mmol/L (3.3-5.1); Sodium 142 mmol/L (135-145)
[2021-08-22 08:10] LABS: Glucose, Whole Blood 97 mg/dL (60-115)
[2021-08-22] MEDS: Insulin Glargine,Hum.rec.anlog 100 UNIT/ML 10 ML VIAL 48 UNIT SUBCUT (08:31)
[2021-08-22] MEDS: hydrALAZINE HCl 50 MG TABLET 100 MG PO ×3 (08:31→20:49)
[2021-08-22] MEDS: Aspirin Enteric Coated 81 MG TABLET.DR PO (08:32)
[2021-08-22] MEDS: OXcarbazepine 300 MG TABLET PO ×2 (08:32→20:49)
[2021-08-22] MEDS: Sertraline HCL 100 MG TABLET 200 MG PO (08:32)
[2021-08-22] MEDS: Cholecalciferol (Vitamin D3) 25 MCG TABLET 50 MCG PO (08:32)
[2021-08-22] MEDS: Gabapentin 600 MG TABLET PO ×3 (08:32→20:50)
[2021-08-22] MEDS: Perphenazine 4 MG TABLET PO ×2 (08:32→20:49)
[2021-08-22] MEDS: Doxazosin Mesylate 2 MG TABLET PO ×2 (08:32→20:50)
[2021-08-22] MEDS: carvediloL 25 MG TABLET PO ×2 (08:33→20:50)
--- NOTE | 2021-08-22 10:44 | PM.PNNEP ---
Subjective Subjective Date of Service: 08/22/21 Principal diagnosis: MARNI on CKD Interval history: Seen and examined, events noted c/o incr SOB this am Physical Exam Vital Signs: Vital Signs: Last Vital Signs Temp 97.6 F 08/22/21 08:00 Pulse 64 08/22/21 08:33 Resp 20 08/22/21 08:00 BP 169/79 H 08/22/21 08:33 Pulse Ox 94 08/22/21 08:00 Body Mass Index 37.0 Const: General: no acute distress Eyes: EOM: EOMs intact bilaterally Neck: Neck: Yes supple Resp: Auscultation: rales, rhonchi and diminished lung sounds Cardio: Jugular venous distension: no JVD GI: Palpation (GI): Soft to palpation Neuro: General: moves all extremities Extrem: General: Yes edema Objective Data Labs CBC & Chem 7: 08/19/21 06:23 08/22/21 06:03 Labs: Laboratory Results - last 24 hr 08/21/21 08/21/21 08/21/21 11:31 15:49 20:29 Sodium Potassium Chloride Carbon Dioxide Anion Gap BUN Creatinine Estim Creat Clear Calc Estimated GFR POC Glucose 155 H 114 85 Random Glucose Calcium 08/22/21 08/22/21 06:03 08:03 Sodium 142 Potassium 4.4 Chloride 109 H Carbon Dioxide 23 Anion Gap 14 BUN 60 H Creatinine 4.25 H* Estim Creat Clear Calc 24.4 Estimated GFR 14 POC Glucose 97 Random Glucose 111 D Calcium 8.2 L Procedures Date of Service Date of Service: 08/22/21 Assessment & Plan Assessment and plan (1) Acute kidney injury superimposed on chronic kidney disease: Status: Acute Assessment and Plan: ? 1. 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 Sever HTN: remains incr b/c off some of his nmeds; ques intolerance to combination of diuretic and MARIA A-I; suspect hypervol contributing 4. Incr SOB/swelling REC: start lasix IV 60 q 8 hrs; cont cardura 2 mg bid; avoid MARIA A/ARB; d/c IVF; protect LUE; d/c planning suspect he will need to be on HD in next 3-6 months Time Spent With Patient Time: Total time spent is greater than 50% in coordination of care (as documented) at patient's floor/unit and/or counseling patient: Progress Note: Quality Stroke Does the patient have a stroke diagnosis?: No
[2021-08-22 11:20] LABS: Glucose, Whole Blood 122 mg/dL (60-115)
--- NOTE | 2021-08-22 11:52 | PM.IMPN ---
Progress Note: A&P (1) CHF (congestive heart failure): Status: Acute (2) Acute kidney injury superimposed on chronic kidney disease: Status: Acute (3) HTN (hypertension): Status: Acute (4) Type 2 diabetes mellitus with hyperglycemia, with long-term current use of insulin: Status: Acute Assessment and Plan: This is a 60-year-old male with past medical history of hypertension, diabetes, CKD who presents to the hospital with complaints of hyperglycemia as well other symptoms including headache, dizziness, nausea and vomiting? found to have uncontrolled HTN as well as MARNI on CKD ? CHF. Received IV fluids for MARNI Mild overload Lasix 20mg BID Echo Uncontrolled HTN pt reports compliance with medication although compliance has been in question in the past continue hydralazine, carvedilol, nifedipine and cardura lisinopril, spironolactone, torsemide on hold for MARNI renal Doppler ultrasound shows no evidence of MIRIAM nephrology following on lasix now for mild overload, may help with HTN MARNI on CKD4. Creatinine slowly improving likely secondary to ATN follow BMP hold lisinopril, spironolactone, torsemide nephrology following stop fluids headache resolved likely secondary to hypertension head CT negative diabetes continue home insulin will add low-dose sliding scale insulin diabetic diet HLD continue statin, lofibra Mood continue trileptal, sertraline, perphenazine PUD continue PPI jenni cpap DVT prophylaxis:? Heparin subQ attending Dr. Delgado Subjective Subjective Date of Service: 08/22/21 Review of Systems Follow-up hypertension Blood pressure still elevated but improved, no headache Good appetite Physical Exam Vital Signs: Vital Signs: Last Vital Signs Temp 97.6 F 08/22/21 08:00 Pulse 64 08/22/21 08:33 Resp 20 08/22/21 08:00 BP 169/79 H 08/22/21 08:33 Pulse Ox 94 08/22/21 08:00 Body Mass Index 37.0 Appearing in no acute distress lung sounds are clear to auscultation heart regular rate rhythm, clear S1, S2 positive bowel sounds, abdomen is soft, nontender neuro patient is alert x3, no focal deficits Objective Data Current Medications Acetaminophen (Acetaminophen 325 Mg Tablet) 650 mg PO Q6H PRN PRN Reason: Pain, Mild (Pain Scale 1-3) Albuterol/Ipratropium (Albuterol/Iprat 2.5/0.5mg 3 Ml Ampul.Neb) 3 ml INHALE RQ4H PRN PRN Reason: Shortness of Breath/Wheezing Last Admin: 08/20/21 22:15 Dose: 3 ml Documented by: Aspirin (Aspirin Enteric Coated 81 Mg Tablet.) 81 mg PO DAILY ON LICENSE OF [facility] Last Admin: 08/22/21 08:32 Dose: 81 mg Documented by: Atorvastatin Calcium (Atorvastatin Calcium 80 Mg Tablet) 80 mg PO BEDTIME ON LICENSE OF [facility] Last Admin: 08/21/21 20:49 Dose: 80 mg Documented by: Carvedilol (Carvedilol 25 Mg Tablet) 25 mg PO BID ON LICENSE OF [facility]; Protocol Last Admin: 08/22/21 08:33 Dose: 25 mg Documented by: Dextrose (Dextrose 50 % 25 Gm/50 Ml Vial) 25 gm IVPUSH Q15M PRN; Protocol PRN Reason: per Hypoglycemia Standing Ord. Doxazosin Mesylate (Doxazosin Mesylate 2 Mg Tablet) 2 mg PO BID ON LICENSE OF [facility]; Protocol Last Admin: 08/22/21 08:32 Dose: 2 mg Documented by: Fenofibrate (Fenofibrate,Micronized 134 Mg Capsule) 134 mg PO BEDTIME ON LICENSE OF [facility] Last Admin: 08/21/21 20:49 Dose: 134 mg Documented by: Fluticasone Propionate (Fluticasone Propionate 250 Mcg Blst.W.Dev) 2 puff INHALE RBID ON LICENSE OF [facility] Last Admin: 08/22/21 08:20 Dose: Not Given Documented by: Furosemide (Furosemide 20 Mg/2 Ml Vial) 20 mg IVPUSH BID@0900,1800 ON LICENSE OF [facility]; Protocol Gabapentin (Gabapentin 600 Mg Tablet) 600 mg PO TID ON LICENSE OF [facility] Last Admin: 08/22/21 08:32 Dose: 600 mg Documented by: Glucose (Glucose Gel 15 Gm Gel..Gram.) 15 gm PO Q15M PRN; Protocol PRN Reason: per Hypoglycemia Standing Ord. Heparin Sodium (Porcine) (Heparin Sodium,Porcine 5,000 Unit/Ml Vial) 5,000 unit SUBCUT Q12H ON LICENSE OF [facility] Last Admin: 08/21/21 23:46 Dose: 5,000 unit Documented by: Hydralazine HCl (Hydralazine Hcl 50 Mg Tablet) 100 mg PO TID ON LICENSE OF [facility]; Protocol Last Admin: 08/22/21 08:31 Dose: 100 mg Documented by: Insulin Glargine (Insulin Glargine,Hum.Rec.Anlog 100 Unit/Ml 10 Ml Vial) 48 unit SUBCUT DAILY ON LICENSE OF [facility] Last Admin: 08/22/21 08:31 Dose: 48 unit Documented by: Insulin Human Lispro (Insulin Lispro 100 Unit/Ml 3 Ml Vial) 0 unit SUBCUT QIDACHS ON LICENSE OF [facility]; Protocol Last Admin: 08/22/21 11:29 Dose: Not Given Documented by: Nifedipine (Nifedipine Er 60 Mg Tab.Er.24) 120 mg PO BEDTIME ON LICENSE OF [facility] Last Admin: 08/21/21 20:49 Dose: 120 mg Documented by: Omeprazole (Omeprazole 40 Mg Capsule.Dr) 40 mg PO DAILY@0630 ON LICENSE OF [facility] Last Admin: 08/22/21 05:41 Dose: 40 mg Documented by: Ondansetron HCl (Ondansetron Hcl 4 Mg/2 Ml Vial) 4 mg IVPUSH Q8H PRN PRN Reason: Nausea and Vomiting Oxcarbazepine (Oxcarbazepine 300 Mg Tablet) 300 mg PO BID ON LICENSE OF [facility] Last Admin: 08/22/21 08:32 Dose: 300 mg Documented by: Oxycodone HCl (Oxycodone Hcl Immed Release 5 Mg Tablet) 5 mg PO Q6H PRN PRN Reason: Pain, Severe (Pain Scale 7-10) Last Admin: 08/21/21 17:35 Dose: 5 mg Documented by: Perphenazine (Perphenazine 4 Mg Tablet) 4 mg PO BID ON LICENSE OF [facility] Last Admin: 08/22/21 08:32 Dose: 4 mg Documented by: Pharmacy Consult (Consult Rx Perform Med Rec) 1 each MISCELLANE ONCE PRN PRN Reason: Consult order Sertraline HCl (Sertraline Hcl 100 Mg Tablet) 200 mg PO DAILY ON LICENSE OF [facility] Last Admin: 08/22/21 08:32 Dose: 200 mg Documented by: Tramadol HCl (Tramadol Hcl 50 Mg Tablet) 100 mg PO Q8H PRN PRN Reason: Pain Last Admin: 08/21/21 15:36 Dose: 100 mg Documented by: Vitamin D (Cholecalciferol (Vitamin D3) 25 Mcg Tablet) 50 mcg PO DAILY ON LICENSE OF [facility] Last Admin: 08/22/21 08:32 Dose: 50 mcg Documented by: Zolpidem Tartrate (Zolpidem Tartrate 5 Mg Tablet) 10 mg PO BEDTIME ON LICENSE OF [facility] Last Admin: 08/21/21 20:50 Dose: 10 mg Documented by: Labs CBC & Chem 7: 08/19/21 06:23 08/22/21 06:03 Labs: Laboratory Results - last 24 hr 08/21/21 08/21/21 08/22/21 15:49 20:29 06:03 Anion Gap 14 Estim Creat Clear Calc 24.4 Estimated GFR 14 POC Glucose 114 85 Random Glucose 111 D Calcium 8.2 L 08/22/21 08/22/21 08:03 11:10 Anion Gap Estim Creat Clear Calc Estimated GFR POC Glucose 97 122 H Random Glucose Calcium Quality Stroke Does the patient have a stroke diagnosis?: No VTE Prior VTE?: No VTE Risk Level:: Medical - moderate - high VTE Device Contraindication: Treatment Not Indicated VTE Drug Contraindication: N/A - Med Ordered
[2021-08-22] MEDS: Furosemide 20 MG/2 ML VIAL IVPUSH ×2 (12:58→17:36)
[2021-08-22] MEDS: Heparin Sodium,Porcine 5,000 UNIT/ML VIAL 5000 UNIT SUBCUT ×2 (12:59→23:01)
[2021-08-22 16:17] LABS: Glucose, Whole Blood 158 mg/dL (60-115)
[2021-08-22] MEDS: Insulin Lispro 100 UNIT/ML 3 ML VIAL SUBCUT ×2 (16:34→20:49)
[2021-08-22 20:27] LABS: Glucose, Whole Blood 151 mg/dL (60-115)
[2021-08-22] MEDS: Fenofibrate,Micronized 134 MG CAPSULE PO (20:50)
[2021-08-22] MEDS: NIFEdipine ER 60 MG TAB.ER.24 120 MG PO (20:50)
[2021-08-22] MEDS: Atorvastatin Calcium 80 MG TABLET PO (20:50)
[2021-08-22] MEDS: Fluticasone Propionate 250 MCG BLST.W.DEV 2 PUFF INHALE (20:51)
[2021-08-22] MEDS: Zolpidem Tartrate 5 MG TABLET 10 MG PO (20:51)
[2021-08-23] VITALS (10 sets, daily range): BP systolic 140–193; BP diastolic 64–84; PULSE 60–86; RESP 15–20; TEMP 36.5–37.1; O2SAT 96–100; BMI 36.4
[2021-08-23] MEDS: Acetaminophen 325 MG TABLET 650 MG PO (04:11)
[2021-08-23] MEDS: Omeprazole 40 MG CAPSULE.DR PO (06:34)
[2021-08-23 07:18] LABS: Glucose, Whole Blood 106 mg/dL (60-115)
[2021-08-23] MEDS: Cholecalciferol (Vitamin D3) 25 MCG TABLET 50 MCG PO ×2 (08:44→08:48)
[2021-08-23] MEDS: hydrALAZINE HCl 50 MG TABLET 100 MG PO ×3 (08:44→20:30)
[2021-08-23] MEDS: carvediloL 25 MG TABLET PO ×2 (08:44→20:31)
[2021-08-23] MEDS: Perphenazine 4 MG TABLET PO ×2 (08:45→20:31)
[2021-08-23] MEDS: Furosemide 20 MG/2 ML VIAL IVPUSH (08:45)
[2021-08-23] MEDS: Gabapentin 600 MG TABLET PO ×3 (08:45→20:31)
[2021-08-23] MEDS: Aspirin Enteric Coated 81 MG TABLET.DR PO (08:45)
[2021-08-23] MEDS: Sertraline HCL 100 MG TABLET 200 MG PO (08:45)
[2021-08-23] MEDS: OXcarbazepine 300 MG TABLET PO ×2 (08:45→20:32)
[2021-08-23] MEDS: Insulin Glargine,Hum.rec.anlog 100 UNIT/ML 10 ML VIAL 48 UNIT SUBCUT (08:46)
[2021-08-23] MEDS: Doxazosin Mesylate 2 MG TABLET PO ×2 (08:48→20:31)
--- NOTE | 2021-08-23 09:48 | MHC.CM.PN ---
Male 60 DX MARNI/CKD Per Neph note patient will require 3-6 Mo of HD. DP home w Out patient HD will transport to home.
--- NOTE | 2021-08-23 10:40 | PM.IMPN ---
Progress Note: A&P (1) CHF (congestive heart failure): Status: Acute <Lashay Frost NP - Last Filed: 08/23/21 10:55> (2) HTN (hypertension): Status: Acute <Lashay Frost NP - Last Filed: 08/23/21 10:55> (3) Type 2 diabetes mellitus with hyperglycemia, with long-term current use of insulin: Status: Acute <Lashay Frost NP - Last Filed: 08/23/21 10:55> (4) Acute kidney injury superimposed on chronic kidney disease: Status: Acute <Lashay Frost NP - Last Filed: 08/23/21 10:55> Assessment and Plan: This is a 60-year-old male with past medical history of hypertension, diabetes, CKD who presents to the hospital with complaints of hyperglycemia as well other symptoms including headache, dizziness, nausea and vomiting? found to have uncontrolled HTN as well as MARNI on CKD CHF. Received IV fluids for MARNI pos 8.8 liters Increase Lasix to 60 mg Q8H Echo pending Uncontrolled HTN pt reports compliance with medication although compliance has been in question in the past continue hydralazine, carvedilol, nifedipine and cardura lisinopril, spironolactone, torsemide on hold for MARNI renal Doppler ultrasound shows no evidence of MIRIAM nephrology following on lasix now for overload, may help with HTN MARNI on CKD4.? Creatinine slowly improving likely secondary to ATN follow BMP hold lisinopril, spironolactone, torsemide nephrology following stop fluids headache resolved likely secondary to hypertension head CT negative diabetes continue home insulin will add low-dose sliding scale insulin diabetic diet HLD continue statin, lofibra Mood continue trileptal, sertraline, perphenazine PUD continue PPI jenni cpap DVT prophylaxis:? Heparin subQ attending Dr. Delgado <Lashay Frost NP - Last Filed: 08/23/21 10:55> This is a 60-year-old male with past medical history of hypertension, diabetes, CKD who presents to the hospital with complaints of hyperglycemia as well other symptoms including headache, dizziness, nausea and vomiting? found to have uncontrolled HTN as well as MARNI on CKD CHF. Received IV fluids for MARNI pos 8.8 liters Increase Lasix to 60 mg Q8H Echo pending Uncontrolled HTN pt reports compliance with medication although compliance has been in question in the past continue hydralazine, carvedilol, nifedipine and cardura lisinopril, spironolactone, torsemide on hold for MARNI renal Doppler ultrasound shows no evidence of MIRIAM nephrology following on lasix now for overload, may help with HTN MARNI on CKD4.? Creatinine slowly improving likely secondary to ATN follow BMP hold lisinopril, spironolactone, torsemide nephrology following stop fluids headache resolved likely secondary to hypertension head CT negative diabetes continue home insulin will add low-dose sliding scale insulin diabetic diet HLD continue statin, lofibra Mood continue trileptal, sertraline, perphenazine PUD continue PPI jenni cpap DVT prophylaxis:? Heparin subQ attending Dr. Delgado Attending Attestation: Patient seen and examined. Case discussed with the mid-level provider. Agree with the assessment and plan as documented above. <Hayes Delgado MD - Last Filed: 08/24/21 16:01> Subjective Subjective Date of Service: 08/23/21 <Lashay Frost NP - Last Filed: 08/23/21 10:55> 08/23/21 <Hayes Delgado MD - Last Filed: 08/24/21 16:01> Interval History: feels okay, worried about bp denies cp, dyspnea on exertion ROS negative otherwise <Hayes Delgado MD - Last Filed: 08/24/21 16:01> Review of Systems Follow up HTN, MARNI, CHF feels ok today worried about his blood pressure <Lashay Frost NP - Last Filed: 08/23/21 10:55> Physical Exam Vital Signs: Vital Signs: Last Vital Signs Temp 97.7 F 08/23/21 07:34 Pulse 64 08/23/21 07:34 Resp 20 08/23/21 07:34 BP 166/72 H 08/23/21 07:34 Pulse Ox 96 08/23/21 07:34 Body Mass Index 36.4 <Lashay Frost NP - Last Filed: 08/23/21 10:55> Appearing in no acute distress lung sounds are clear to auscultation heart regular rate rhythm, clear S1, S2 positive bowel sounds, abdomen is soft, nontender neuro patient is alert x3, no focal deficits <Lashay Frost NP - Last Filed: 08/23/21 10:55> Objective Data Current Medications Acetaminophen (Acetaminophen 325 Mg Tablet) 650 mg PO Q6H PRN PRN Reason: Pain, Mild (Pain Scale 1-3) Last Admin: 08/23/21 04:11 Dose: 650 mg Documented by: Albuterol/Ipratropium (Albuterol/Iprat 2.5/0.5mg 3 Ml Ampul.Neb) 3 ml INHALE RQ4H PRN PRN Reason: Shortness of Breath/Wheezing Last Admin: 08/20/21 22:15 Dose: 3 ml Documented by: Aspirin (Aspirin Enteric Coated 81 Mg Tablet.) 81 mg PO DAILY [facility] Last Admin: 08/23/21 08:45 Dose: 81 mg Documented by: Atorvastatin Calcium (Atorvastatin Calcium 80 Mg Tablet) 80 mg PO BEDTIME [facility] Last Admin: 08/22/21 20:50 Dose: 80 mg Documented by: Carvedilol (Carvedilol 25 Mg Tablet) 25 mg PO BID [facility]; Protocol Last Admin: 08/23/21 08:44 Dose: 25 mg Documented by: Dextrose (Dextrose 50 % 25 Gm/50 Ml Vial) 25 gm IVPUSH Q15M PRN; Protocol PRN Reason: per Hypoglycemia Standing Ord. Doxazosin Mesylate (Doxazosin Mesylate 2 Mg Tablet) 2 mg PO BID [facility]; Protocol Last Admin: 08/23/21 08:48 Dose: 2 mg Documented by: Fenofibrate (Fenofibrate,Micronized 134 Mg Capsule) 134 mg PO BEDTIME [facility] Last Admin: 08/22/21 20:50 Dose: 134 mg Documented by: Fluticasone Propionate (Fluticasone Propionate 250 Mcg Blst.W.Dev) 2 puff INHALE RBID [facility] Last Admin: 08/23/21 07:43 Dose: Not Given Documented by: Gabapentin (Gabapentin 600 Mg Tablet) 600 mg PO TID [facility] Last Admin: 08/23/21 08:45 Dose: 600 mg Documented by: Glucose (Glucose Gel 15 Gm Gel..Gram.) 15 gm PO Q15M PRN; Protocol PRN Reason: per Hypoglycemia Standing Ord. Heparin Sodium (Porcine) (Heparin Sodium,Porcine 5,000 Unit/Ml Vial) 5,000 unit SUBCUT Q12H [facility] Last Admin: 08/22/21 23:01 Dose: 5,000 unit Documented by: Hydralazine HCl (Hydralazine Hcl 50 Mg Tablet) 100 mg PO TID [facility]; Protocol Last Admin: 08/23/21 08:44 Dose: 100 mg Documented by: Insulin Glargine (Insulin Glargine,Hum.Rec.Anlog 100 Unit/Ml 10 Ml Vial) 48 unit SUBCUT DAILY [facility] Last Admin: 08/23/21 08:46 Dose: 48 unit Documented by: Insulin Human Lispro (Insulin Lispro 100 Unit/Ml 3 Ml Vial) 0 unit SUBCUT QIDACHS [facility]; Protocol Last Admin: 08/23/21 08:33 Dose: Not Given Documented by: Nifedipine (Nifedipine Er 60 Mg Tab.Er.24) 120 mg PO BEDTIME [facility] Last Admin: 08/22/21 20:50 Dose: 120 mg Documented by: Omeprazole (Omeprazole 40 Mg Capsule.Dr) 40 mg PO DAILY@0630 [facility] Last Admin: 08/23/21 06:34 Dose: 40 mg Documented by: Ondansetron HCl (Ondansetron Hcl 4 Mg/2 Ml Vial) 4 mg IVPUSH Q8H PRN PRN Reason: Nausea and Vomiting Oxcarbazepine (Oxcarbazepine 300 Mg Tablet) 300 mg PO BID [facility] Last Admin: 08/23/21 08:45 Dose: 300 mg Documented by: Oxycodone HCl (Oxycodone Hcl Immed Release 5 Mg Tablet) 5 mg PO Q6H PRN PRN Reason: Pain, Severe (Pain Scale 7-10) Last Admin: 08/21/21 17:35 Dose: 5 mg Documented by: Perphenazine (Perphenazine 4 Mg Tablet) 4 mg PO BID [facility] Last Admin: 08/23/21 08:45 Dose: 4 mg Documented by: Pharmacy Consult (Consult Rx Perform Med Rec) 1 each MISCELLANE ONCE PRN PRN Reason: Consult order Sertraline HCl (Sertraline Hcl 100 Mg Tablet) 200 mg PO DAILY [facility] Last Admin: 08/23/21 08:45 Dose: 200 mg Documented by: Tramadol HCl (Tramadol Hcl 50 Mg Tablet) 100 mg PO Q8H PRN PRN Reason: Pain Last Admin: 08/21/21 15:36 Dose: 100 mg Documented by: Vitamin D (Cholecalciferol (Vitamin D3) 25 Mcg Tablet) 50 mcg PO DAILY [facility] Last Admin: 08/23/21 08:48 Dose: 50 mcg Documented by: Zolpidem Tartrate (Zolpidem Tartrate 5 Mg Tablet) 10 mg PO BEDTIME [facility] Last Admin: 08/22/21 20:51 Dose: 10 mg Documented by: <Lashay Frost NP - Last Filed: 08/23/21 10:55> Labs CBC & Chem 7: : 08/19/21 06:23 08/24/21 06:37 <Lashay Frost NP - Last Filed: 08/23/21 10:55> Labs: Laboratory Results - last 24 hr 08/22/21 08/22/21 08/22/21 11:10 16:04 20:09 POC Glucose 122 H 158 H 151 H 08/23/21 07:13 POC Glucose 106 <Lashay Frost NP - Last Filed: 08/23/21 10:55> Quality Stroke Does the patient have a stroke diagnosis?: No <Lashay Frost NP - Last Filed: 08/23/21 10:55> VTE Prior VTE?: No <Lashay Frost NP - Last Filed: 08/23/21 10:55> VTE Risk Level:: Medical - moderate - high <Lashay Frost NP - Last Filed: 08/23/21 10:55> VTE Device Contraindication: Treatment Not Indicated <Lashay Frost NP - Last Filed: 08/23/21 10:55> VTE Drug Contraindication: N/A - Med Ordered <Lashay Frost NP - Last Filed: 08/23/21 10:55>
[2021-08-23 10:57] LABS: Glucose, Whole Blood 183 mg/dL (60-115)
[2021-08-23] MEDS: Insulin Lispro 100 UNIT/ML 3 ML VIAL SUBCUT ×2 (11:46→20:51)
[2021-08-23] MEDS: Heparin Sodium,Porcine 5,000 UNIT/ML VIAL 5000 UNIT SUBCUT ×2 (11:47→20:51)
[2021-08-23] MEDS: Furosemide 20 MG/2 ML VIAL 60 MG IVPUSH ×2 (11:47→20:30)
--- NOTE | 2021-08-23 13:00 | CA_ITS ---
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 There is severely increased left ventricular wall thickness. The visually estimated ejection fraction is between 65-70%. - Normal right ventricular cavity size and systolic function. - The left atrium is moderately dilated. - There is mild dilatation of the ascending aorta. Findings Left Ventricle Normal left ventricular size and systolic function. There is severely increased left ventricular wall thickness. The visually estimated ejection fraction is between 65-70%. There is no evidence of regional wall motion abnormalities. Abnormal diastolic function is noted. Spectral Doppler is indicative of an impaired relaxation filling pattern. E/E prime ratio is between 8 and 15 consistent with indeterminate filling pressures. Right Ventricle Normal right ventricular cavity size and systolic function. Atria The left atrium is moderately dilated. Aortic Valve Normal aortic valve structure and function. There is no aortic valve stenosis. There is no aortic valve regurgitation. Mitral Valve Normal mitral valve structure and function. There is trace mitral valve regurgitation. There is no mitral valve stenosis. Pulmonic Valve Normal pulmonic valve structure and function. There is trace pulmonic valve regurgitation. Tricuspid Valve Normal tricuspid valve structure and function. There is trace tricuspid valve regurgitation. Tricuspid regurgitation envelope is inadequate for calculation of right ventricular systolic pressure. Normal right atrial pressure. Great Vessels There is mild dilatation of the ascending aorta. The visualized portions of the pulmonary artery and branches are normal. Venous The inferior vena cava is normal in size and collapses greater than 50% with inspiration. Pericardium/Pleural There is no evidence of pericardial effusion. Prior Study Comparison Changes noted compared to prior study dated: 05/09/2020. Moderately dilate left atrium. Measurements 2D Linear Measurements IVSd: 1.70 0.6-0.9/0.6-1.0 cm LVIDd: 4.20 3.9-5.3/4.2-5.9 cm LVIDd Index: 1.78 2.4-3.2/2.2-3.1 cm/m2 LVIDs: 2.60 2.0-3.6 cm LVPWd: 1.79 0.7-1.1 cm Ao Root: 3.20 2.1-3.5 cm LA Diam: 3.90 2.7-3.8/3.0-4.0 cm LAIDs Index: 1.65 1.5-2.3 cm/m2 LV Mass: 395.90 67-162/88-224 g LV Mass Index: 167.75 43-95/49-115 g/m2 LVOT Diam: 2.30 3.0+(-)1.3 cm Mitral Valve MV Pk E: 0.93 MV PK A: 1.11 MV Decel Time: 277.00 E/A: 0.80 E'Lateral: 11.20 E'Medial: 5.11 E/E' Med: 18.20 E/E' Lat: 8.30 PHT: 81.00 MVA PHT: 2.72 Decel [place]: 3.35 Aortic Valve AoV Pk Juan Manuel: 1.74 AoV Mn Juan Manuel: 1.11 AoV VTI: 0.46 AoV Pk Grad: 12.00 Aov Mn Grad: 6.00 FRANDY Cont.VTI: 3.03 LVOT LVOT Pk Juan Manuel: 1.41 LVOT Mn Juan Manuel: 0.78 LVOT VTI: 0.34 LVOT Pk Grad: 8.00 LVOT Mn Grad: 3.00 LVOT Diam: 2.30 LVOT Area: 4.15 Diastolic Function MV Pk E: 0.93 MV Pk A: 1.11 E/A: 0.80 E'Medial: 5.11 E/E' Med: 18.20 E' Laterial: 11.20 E/E' Lat: 8.30 Tricuspid Valve TR Pk Juan Manuel: 1.60 TR Pk Grad: 10.00 Great Vessels Aorta Ao Root-2D: 3.20 2.0-3.7 cm Ao Asc: 3.40 2.1-3.4 cm Pulmonary Valve PV Pk Juan Manuel: 1.25 Peak PV Grad: 6.00 Updated in Other Vendor System with Status of Final Davon Olivares MD electronically signed on 08/24/2021 2:12:11 PM with status of Final
[2021-08-23 16:36] LABS: Glucose, Whole Blood 132 mg/dL (60-115)
[2021-08-23] MEDS: Zolpidem Tartrate 5 MG TABLET 10 MG PO (20:30)
[2021-08-23] MEDS: Atorvastatin Calcium 80 MG TABLET PO (20:31)
[2021-08-23] MEDS: NIFEdipine ER 60 MG TAB.ER.24 120 MG PO (20:32)
[2021-08-23] MEDS: Fenofibrate,Micronized 134 MG CAPSULE PO (20:32)
[2021-08-23 20:44] LABS: Glucose, Whole Blood 154 mg/dL (60-115)
[2021-08-24] VITALS (11 sets, daily range): BP systolic 142–167; BP diastolic 56–67; PULSE 58–83; RESP 18–19; TEMP 36.6–37.1; O2SAT 93–97; BMI 36.3
[2021-08-24] MEDS: Furosemide 20 MG/2 ML VIAL 60 MG IVPUSH (03:06)
[2021-08-24] MEDS: Omeprazole 40 MG CAPSULE.DR PO (06:35)
[2021-08-24 07:14] LABS: Glucose, Whole Blood 134 mg/dL (60-115)
[2021-08-24 07:29] LABS: B Type Natriuretic Peptide 79 pg/mL (<100)
[2021-08-24 07:42] LABS: Anion Gap 15 (12-20); Blood Urea Nitrogen 67 mg/dL (9-16); Calcium 8.7 mg/dL (8.4-10.2); Carbon Dioxide 28 mmol/L (22-29); Chloride 102 mmol/L (96-108); Creatinine Clr Calc Pharmacy 21.4; Estimated Glomerular Filt Rate 13; Glucose Random 137 mg/dL (60-115); Potassium 3.9 mmol/L (3.3-5.1); Sodium 141 mmol/L (135-145)
[2021-08-24] MEDS: hydrALAZINE HCl 50 MG TABLET 100 MG PO ×3 (08:25→20:15)
[2021-08-24] MEDS: Perphenazine 4 MG TABLET PO ×2 (08:25→20:17)
[2021-08-24] MEDS: Gabapentin 600 MG TABLET PO ×3 (08:25→20:15)
[2021-08-24] MEDS: Insulin Glargine,Hum.rec.anlog 100 UNIT/ML 10 ML VIAL 48 UNIT SUBCUT (08:25)
[2021-08-24] MEDS: Cholecalciferol (Vitamin D3) 25 MCG TABLET 50 MCG PO (08:25)
[2021-08-24] MEDS: Sertraline HCL 100 MG TABLET 200 MG PO (08:25)
[2021-08-24] MEDS: Doxazosin Mesylate 2 MG TABLET PO ×2 (08:25→20:16)
[2021-08-24] MEDS: Aspirin Enteric Coated 81 MG TABLET.DR PO (08:26)
[2021-08-24] MEDS: OXcarbazepine 300 MG TABLET PO ×2 (08:26→20:17)
[2021-08-24] MEDS: carvediloL 25 MG TABLET PO ×2 (08:26→20:16)
[2021-08-24 11:15] LABS: Glucose, Whole Blood 231 mg/dL (60-115)
[2021-08-24] MEDS: Torsemide 20 MG TABLET 100 MG PO (11:32)
[2021-08-24] MEDS: Insulin Lispro 100 UNIT/ML 3 ML VIAL SUBCUT ×3 (11:33→20:18)
[2021-08-24] MEDS: Heparin Sodium,Porcine 5,000 UNIT/ML VIAL 5000 UNIT SUBCUT ×2 (11:33→22:42)
--- NOTE | 2021-08-24 13:09 | P.PNIM_ITS ---
Subjective Subjective Date of Service: 08/24/21 <CORNELIO Villatoro - Last Filed: 08/24/21 13:23> 08/24/21 <Hayes Delgado MD - Last Filed: 08/24/21 16:04> Interval History: Seen and examined this morning Follow-up for uncontrolled hypertension, fluid overload denies sob <CORNELIO Villatoro - Last Filed: 08/24/21 13:23> Review of Systems Review of Systems: Yes all other systems are reviewed and are negative <CORNELIO Villatoro - Last Filed: 08/24/21 13:23> Constitutional Constitutional: Denies chills and Denies fever(s) <CORNELIO Villatoro - Last Filed: 08/24/21 13:23> Cardiovascular Cardiovascular: Denies chest pain <CORNELIO Villatoro - Last Filed: 08/24/21 13:23> Respiratory Respiratory: Denies cough <CORNELIO Villatoro - Last Filed: 08/24/21 13:23> Gastrointestinal Gastrointestinal: Denies abdominal pain <CORNELIO Villatoro - Last Filed: 08/24/21 13:23> Physical Exam Vital Signs: Vital Signs: Last Vital Signs Temp 97.8 F 08/24/21 11:30 Pulse 58 08/24/21 11:30 Resp 18 08/24/21 11:30 BP 146/58 H 08/24/21 11:30 Pulse Ox 97 08/24/21 11:30 Body Mass Index 36.3 <CORNELIO Villatoro - Last Filed: 08/24/21 13:23> Const: General: alert and awake <CORNELOI Villatoro - Last Filed: 08/24/21 13:23> Nutritional Appearance: well nourished <CORNELIO Villatoro - Last Filed: 08/24/21 13:23> Orientation/consciousness: patient oriented x3 <CORNELIO Villatoro - Last Filed: 08/24/21 13:23> HENMT: Head: Yes normocephalic and Yes atraumatic <CORNELIO Villatoro - Last Filed: 08/24/21 13:23> Eyes: Sclerae: sclerae normal <CORNELIO Villatoro - Last Filed: 08/24/21 13:23> Chest: Chest palpation & inspection: normal inspection of the chest <CORNELIO Villatoro - Last Filed: 08/24/21 13:23> Resp: Other: lungs clear <CORNELIO Villatoro - Last Filed: 08/24/21 13:23> Effort & Inspection: normal respiratory effort and no respiratory distress <CORNELIO Villatoro - Last Filed: 08/24/21 13:23> Cardio: Rate: regular rate <CORNELIO Villatoro - Last Filed: 08/24/21 13:23> Rhythm: regular rhythm <CORNELIO Villatoro - Last Filed: 08/24/21 13:23> GI: Palpation (GI): Soft to palpation and nontender <CORNELIO Villatoro - Last Filed: 08/24/21 13:23> Neuro: General: patient oriented x3 <CORNELIO Villatoro - Last Filed: 08/24/21 13:23> Cranial nerves: Yes CN's II-XII intact bilaterally and Yes Bilaterally intact EOM present <CORNELIO Villatoro - Last Filed: 08/24/21 13:23> Extrem: Other: trace edema left leg <CORNELIO Villatoro - Last Filed: 08/24/21 13:23> Objective Data Active Medications Acetaminophen (Acetaminophen 325 Mg Tablet) 650 mg PO Q6H PRN PRN Reason: Pain, Mild (Pain Scale 1-3) Last Admin: 08/23/21 04:11 Dose: 650 mg Documented by: SATISH Albuterol/Ipratropium (Albuterol/Iprat 2.5/0.5mg 3 Ml Ampul.Neb) 3 ml INHALE RQ4H PRN PRN Reason: Shortness of Breath/Wheezing Last Admin: 08/20/21 22:15 Dose: 3 ml Documented by: ANA Aspirin (Aspirin Enteric Coated 81 Mg Tablet.Dr) 81 mg PO DAILY [facility] Last Admin: 08/24/21 08:26 Dose: 81 mg Documented by: QIANA Atorvastatin Calcium (Atorvastatin Calcium 80 Mg Tablet) 80 mg PO BEDTIME [facility] Last Admin: 08/23/21 20:31 Dose: 80 mg Documented by: PRICE Carvedilol (Carvedilol 25 Mg Tablet) 25 mg PO BID [facility]; Protocol Last Admin: 08/24/21 08:26 Dose: 25 mg Documented by: QIANA Dextrose (Dextrose 50 % 25 Gm/50 Ml Vial) 25 gm IVPUSH Q15M PRN; Protocol PRN Reason: per Hypoglycemia Standing Ord. Doxazosin Mesylate (Doxazosin Mesylate 2 Mg Tablet) 2 mg PO BID [facility]; Protocol Last Admin: 08/24/21 08:25 Dose: 2 mg Documented by: QIANA Fenofibrate (Fenofibrate,Micronized 134 Mg Capsule) 134 mg PO BEDTIME [facility] Last Admin: 08/23/21 20:32 Dose: 134 mg Documented by: PRICE Fluticasone Propionate (Fluticasone Propionate 250 Mcg Blst.W.Dev) 2 puff INHALE RBID [facility] Last Admin: 08/24/21 12:14 Dose: Not Given Documented by: QIANA Non-Admin Reason: Patient Asleep Gabapentin (Gabapentin 600 Mg Tablet) 600 mg PO TID [facility] Last Admin: 08/24/21 08:25 Dose: 600 mg Documented by: QIANA Glucose (Glucose Gel 15 Gm Gel..Gram.) 15 gm PO Q15M PRN; Protocol PRN Reason: per Hypoglycemia Standing Ord. Heparin Sodium (Porcine) (Heparin Sodium,Porcine 5,000 Unit/Ml Vial) 5,000 unit SUBCUT Q12H [facility] Last Admin: 08/24/21 11:33 Dose: 5,000 unit Documented by: QIANA Hydralazine HCl (Hydralazine Hcl 50 Mg Tablet) 100 mg PO TID [facility]; Protocol Last Admin: 08/24/21 08:25 Dose: 100 mg Documented by: QIANA Insulin Glargine (Insulin Glargine,Hum.Rec.Anlog 100 Unit/Ml 10 Ml Vial) 48 unit SUBCUT DAILY [facility] Last Admin: 08/24/21 08:25 Dose: 48 unit Documented by: QIANA Insulin Human Lispro (Insulin Lispro 100 Unit/Ml 3 Ml Vial) 0 unit SUBCUT QIDACHS [facility]; Protocol Last Admin: 08/24/21 11:33 Dose: 4 unit Documented by: QIANA Nifedipine (Nifedipine Er 60 Mg Tab.Er.24) 120 mg PO BEDTIME [facility] Last Admin: 08/23/21 20:32 Dose: 120 mg Documented by: PRICE Omeprazole (Omeprazole 40 Mg Capsule.Dr) 40 mg PO DAILY@0630 [facility] Last Admin: 08/24/21 06:35 Dose: 40 mg Documented by: JOSE Ondansetron HCl (Ondansetron Hcl 4 Mg/2 Ml Vial) 4 mg IVPUSH Q8H PRN PRN Reason: Nausea and Vomiting Oxcarbazepine (Oxcarbazepine 300 Mg Tablet) 300 mg PO BID [facility] Last Admin: 08/24/21 08:26 Dose: 300 mg Documented by: QIANA Perphenazine (Perphenazine 4 Mg Tablet) 4 mg PO BID [facility] Last Admin: 08/24/21 08:25 Dose: 4 mg Documented by: QIANA Pharmacy Consult (Consult Rx Perform Med Rec) 1 each MISCELLANE ONCE PRN PRN Reason: Consult order Sertraline HCl (Sertraline Hcl 100 Mg Tablet) 200 mg PO DAILY [facility] Last Admin: 08/24/21 08:25 Dose: 200 mg Documented by: QIANA Torsemide (Torsemide 20 Mg Tablet) 100 mg PO DAILY [facility]; Protocol Last Admin: 08/24/21 11:32 Dose: 100 mg Documented by: QIANA Vitamin D (Cholecalciferol (Vitamin D3) 25 Mcg Tablet) 50 mcg PO DAILY [facility] Last Admin: 08/24/21 08:25 Dose: 50 mcg Documented by: QIANA <CORNELIO Villatoro - Last Filed: 08/24/21 13:23> Labs CBC & Chem 7: : 08/19/21 06:23 08/24/21 06:37 <CORNELIO Villatoro - Last Filed: 08/24/21 13:23> Labs: Laboratory Results - last 24 hr 08/23/21 08/23/21 08/24/21 16:33 20:41 06:37 Anion Gap 15 Estim Creat Clear Calc 21.4 Estimated GFR 13 POC Glucose 132 H 154 H Random Glucose 137 H Calcium 8.7 D B-Natriuretic Peptide 08/24/21 08/24/21 08/24/21 06:37 07:10 11:11 Anion Gap Estim Creat Clear Calc Estimated GFR POC Glucose 134 H 231 H Random Glucose Calcium B-Natriuretic Peptide 79 <CORNELIO Villatoro - Last Filed: 08/24/21 13:23> Assessment and Plan (1) CHF (congestive heart failure): Status: Acute <CORNELIO Villatoro - Last Filed: 08/24/21 13:23> (2) HTN (hypertension): Status: Acute <CORNELIO Villatoro - Last Filed: 08/24/21 13:23> Assessment and Plan: This is a 60-year-old male with past medical history of hypertension, diabetes, CKD who presents to the hospital with complaints of hyperglycemia as well other symptoms including headache, dizziness, nausea and vomiting? found to have uncontrolled HTN as well as MARNI on CKD CHF. echo to eval LVEF Received IV fluids for AMRNI. Leg edema resolved. doubt Is&Os are correct change IV lasix to PO Uncontrolled HTN BP better this am pt reports compliance with medication although compliance has been in question in the past continue hydralazine, carvedilol, nifedipine. cardura added lisinopril, spironolactone on hold for MARNI renal Doppler ultrasound shows no evidence of MIRIAM nephrology following on lasix now for overload, may help with HTN MARNI on CKD4.? Creatinine slowly improving likely secondary to ATN follow BMP hold lisinopril, spironolactone nephrology following headache resolved likely secondary to hypertension head CT negative diabetes continue home insulin SSI diabetic diet HLD continue statin, lofibra Mood continue trileptal, sertraline, perphenazine PUD continue PPI jenni cpap DVT prophylaxis:? Heparin subQ attending Dr. Delgado <CORNELIO Villatoro - Last Filed: 08/24/21 13:23> Quality Stroke Does the patient have a stroke diagnosis?: No <CORNELIO Villatoro - Last Filed: 08/24/21 13:23> VTE Prior VTE?: No <CORNELIO Villatoro - Last Filed: 08/24/21 13:23> VTE Risk Level:: Medical - moderate - high <CORNELIO Villatoro - Last Filed: 08/24/21 13:23> VTE Device Contraindication: Treatment Not Indicated <CORNELIO Villatoro - Last Filed: 08/24/21 13:23> VTE Drug Contraindication: N/A - Med Ordered <CORNELIO Villatoro - Last Filed: 08/24/21 13:23>
[2021-08-24 15:54] LABS: Glucose, Whole Blood 190 mg/dL (60-115)
--- NOTE | 2021-08-24 17:54 | P.PNNP_ITS ---
Subjective Subjective Date of Service: 08/24/21 Principal diagnosis: MARNI on CKD Interval history: Seen and examiend, events noted Physical Exam Vital Signs: Vital Signs: Last Vital Signs Temp 98.3 F 08/24/21 15:47 Pulse 62 08/24/21 16:10 Resp 19 08/24/21 15:47 BP 155/56 H 08/24/21 16:10 Pulse Ox 96 08/24/21 15:47 Body Mass Index 36.3 Const: General: no acute distress Eyes: EOM: EOMs intact bilaterally Neck: Neck: Yes supple Resp: Auscultation: rales, rhonchi and diminished lung sounds Cardio: Jugular venous distension: no JVD GI: Palpation (GI): Soft to palpation Neuro: General: moves all extremities Extrem: General: Yes edema Objective Data Labs CBC & Chem 7: 08/19/21 06:23 08/24/21 06:37 Labs: Laboratory Results - last 24 hr 08/23/21 08/24/21 08/24/21 20:41 06:37 06:37 Sodium 141 Potassium 3.9 Chloride 102 Carbon Dioxide 28 Anion Gap 15 BUN 67 H Creatinine 4.79 H* Estim Creat Clear Calc 21.4 Estimated GFR 13 POC Glucose 154 H Random Glucose 137 H Calcium 8.7 D B-Natriuretic Peptide 79 08/24/21 08/24/21 08/24/21 07:10 11:11 15:49 Sodium Potassium Chloride Carbon Dioxide Anion Gap BUN Creatinine Estim Creat Clear Calc Estimated GFR POC Glucose 134 H 231 H 190 H Random Glucose Calcium B-Natriuretic Peptide Procedures Date of Service Date of Service: 08/24/21 Assessment & Plan Assessment and plan (1) Acute kidney injury superimposed on chronic kidney disease: Status: Acute Assessment and Plan: ? 1. 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 Sever HTN: remains incr b/c off some of his nmeds; ques intolerance to combination of diuretic and MARIA A-I; suspect hypervol contributing and now grad decr after diuresis 4. Incr SOB/swelling: improvingafter incr diuretics REC: transition to po torsemide; cont cardura 2 mg bid; avoid MARIA A/ARB; protect LUE and ask vasc to eval for future AVF; d/c planning suspect he will need to be on HD in next 3-6 months Time Spent With Patient Time: Total time spent is greater than 50% in coordination of care (as documented) at patient's floor/unit and/or counseling patient: Progress Note: Quality Stroke Does the patient have a stroke diagnosis?: No
[2021-08-24 20:06] LABS: Glucose, Whole Blood 243 mg/dL (60-115)
[2021-08-24] MEDS: Fenofibrate,Micronized 134 MG CAPSULE PO (20:15)
[2021-08-24] MEDS: NIFEdipine ER 60 MG TAB.ER.24 120 MG PO (20:16)
[2021-08-24] MEDS: Atorvastatin Calcium 80 MG TABLET PO (20:17)
[2021-08-24] MEDS: Acetaminophen 325 MG TABLET 650 MG PO (20:20)
[2021-08-24] MEDS: Fluticasone Propionate 250 MCG BLST.W.DEV 2 PUFF INHALE (21:33)
[2021-08-25] VITALS (8 sets, daily range): BP systolic 122–151; BP diastolic 54–62; PULSE 58–72; RESP 20; TEMP 36.5–36.9; O2SAT 96–98; BMI 35.2
[2021-08-25] MEDS: Omeprazole 40 MG CAPSULE.DR PO (05:58)
[2021-08-25 07:10] LABS: Glucose, Whole Blood 187 mg/dL (60-115)
[2021-08-25] MEDS: Insulin Glargine,Hum.rec.anlog 100 UNIT/ML 10 ML VIAL 48 UNIT SUBCUT (08:07)
[2021-08-25] MEDS: Insulin Lispro 100 UNIT/ML 3 ML VIAL SUBCUT ×2 (08:07→11:43)
[2021-08-25] MEDS: Cholecalciferol (Vitamin D3) 25 MCG TABLET 50 MCG PO (08:08)
[2021-08-25] MEDS: OXcarbazepine 300 MG TABLET PO (08:08)
[2021-08-25] MEDS: Aspirin Enteric Coated 81 MG TABLET.DR PO (08:08)
[2021-08-25] MEDS: Perphenazine 4 MG TABLET PO (08:08)
[2021-08-25] MEDS: Sertraline HCL 100 MG TABLET 200 MG PO (08:08)
[2021-08-25 08:50] LABS: Anion Gap 17 (12-20); Blood Urea Nitrogen 76 mg/dL (9-16); Calcium 8.6 mg/dL (8.4-10.2); Carbon Dioxide 27 mmol/L (22-29); Chloride 101 mmol/L (96-108); Creatinine Clr Calc Pharmacy 18.6; Estimated Glomerular Filt Rate 11; Glucose Random 177 mg/dL (60-115); Potassium 3.9 mmol/L (3.3-5.1); Sodium 141 mmol/L (135-145)
[2021-08-25] MEDS: hydrALAZINE HCl 50 MG TABLET 100 MG PO ×2 (09:03→14:47)
[2021-08-25] MEDS: Torsemide 20 MG TABLET 100 MG PO (09:03)
[2021-08-25] MEDS: Doxazosin Mesylate 2 MG TABLET PO (09:04)
[2021-08-25] MEDS: Gabapentin 600 MG TABLET PO ×2 (09:04→14:47)
[2021-08-25] MEDS: carvediloL 25 MG TABLET PO (09:04)
[2021-08-25 10:57] LABS: Glucose, Whole Blood 247 mg/dL (60-115)
[2021-08-25] MEDS: Heparin Sodium,Porcine 5,000 UNIT/ML VIAL 5000 UNIT SUBCUT (11:43)
--- NOTE | 2021-08-25 11:51 | PM.PNNEP ---
Subjective Subjective Date of Service: 08/25/21 Principal diagnosis: MARNI on CKD Interval history: Seen and examiend, events noted Physical Exam Vital Signs: Vital Signs: Last Vital Signs Temp 97.9 F 08/25/21 11:24 Pulse 60 08/25/21 11:24 Resp 20 08/25/21 11:24 BP 134/54 L 08/25/21 11:24 Pulse Ox 96 08/25/21 11:24 Body Mass Index 35.2 Const: General: no acute distress Eyes: EOM: EOMs intact bilaterally Neck: Neck: Yes supple Resp: Auscultation: rales, rhonchi and diminished lung sounds Cardio: Jugular venous distension: no JVD GI: Palpation (GI): Soft to palpation Neuro: General: moves all extremities Extrem: General: Yes edema Objective Data Labs CBC & Chem 7: 08/19/21 06:23 08/25/21 08:13 Labs: Laboratory Results - last 24 hr 08/24/21 08/24/21 08/25/21 15:49 19:59 07:07 Sodium Potassium Chloride Carbon Dioxide Anion Gap BUN Creatinine Estim Creat Clear Calc Estimated GFR POC Glucose 190 H 243 H 187 H Random Glucose Calcium 08/25/21 08/25/21 08:13 10:48 Sodium 141 Potassium 3.9 Chloride 101 Carbon Dioxide 27 Anion Gap 17 BUN 76 H Creatinine 5.43 H* Estim Creat Clear Calc 18.6 Estimated GFR 11 POC Glucose 247 H Random Glucose 177 H Calcium 8.6 Procedures Date of Service Date of Service: 08/25/21 Assessment & Plan Assessment and plan (1) Acute kidney injury superimposed on chronic kidney disease: Status: Acute Assessment and Plan: ? 1. 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 Sever HTN: improved nowon current meds and with diuresis 4. Incr SOB/swelling: improving after incr diuretics REC: transition to po torsemide; cont cardura 2 mg bid; avoid MARIA A/ARB; protect LUE and ask vasc to eval for future AVF; d/c planning ok to d/c home this pm but needs close f/u as oupt suspect he will need to be on HD in next 3-6 months Time Spent With Patient Time: Total time spent is greater than 50% in coordination of care (as documented) at patient's floor/unit and/or counseling patient: Progress Note: Quality Stroke Does the patient have a stroke diagnosis?: No
--- NOTE | 2021-08-25 12:42 | PM.CNGS ---
History of Present Illness Consult details Consult date: 08/25/21 Reason for consult: other (CRI) Narrative: Very pleasant 60-year-old gentleman presents for vascular evaluation regarding chronic renal insufficiency. He originally presented to the hospital approximately 1 week prior with hypertensive urgency and acute on chronic renal failure. He has been subsequently worked up and treated. It has been determined that he should be on dialysis within the next 3-6 months. He now presents to us for vascular evaluation for permanent dialysis access. Of note he is right-hand dominant. Review of Systems Review of Systems: Yes all other systems are reviewed and are negative Constitutional: Constitutional: Reports no additional constitutional complaints ENT: Reports Normal hearing present Cardiovascular: Cardiovascular: Denies chest pain, Denies chest pain at rest, Denies chest pain with activity and Denies pedal edema Respiratory: Respiratory: Denies cough Gastrointestinal: Gastrointestinal: Denies abdominal pain Musculoskeletal: Musculoskeletal: Denies abnormal gait, Denies muscle cramps and Denies radiating pain into limb Integumentary/Breasts: Skin/Breast: Denies skin ulcer and Denies wounds Neurologic: Reports Normal hearing present and Denies abnormal gait Psychiatric: Psychiatric: Reports no additional psychiatric complaints [facility] Past Medical History Medical History (Updated 08/25/21 @ 12:46 by Jayjay Dawson MD) Abnormal biopsy of kidney Anxiety Asthma CHF (congestive heart failure) Chronic kidney disease (CKD) Chronic kidney disease, stage 4 (severe) COPD (chronic obstructive pulmonary disease) Depression Depression with anxiety Diabetes mellitus with hyperglycemia, with long-term current use of insulin Diverticulitis Elevated cholesterol Erectile dysfunction History of alcohol abuse History of headache HTN (hypertension) Hx of pancreatitis Hypertension Hypertensive crisis Hypertriglyceridemia On beta doron at home Pancreatitis Peptic ulcer Proteinuria Sleep apnea Type 2 diabetes mellitus with chronic kidney disease Type 2 diabetes mellitus with hyperglycemia, with long-term current use of insulin Type 2 diabetes mellitus with polyneuropathy Family History Family History Mother Diabetes Surgical History Surgical History Hx of colonoscopy Hx of right inguinal hernia repair Social History Social History Household Members: None Housing: Apartment Do you presently have visiting nurse or other home services: Yes Alcohol intake: never Patient Tobacco Use Status: Former Tobacco user Cigarettes Per Day: 4 Years Smoked: 30 Patient Interested in Nicotine Replacement: No Second Hand Smoke Exposure: Yes Use of substances other than those prescribed or required for medical reasons: No Currently Displaying Signs/Symptoms of Drug Intoxication Withdrawal: No Have you been hit, kicked, punched, or otherwise hurt by someone within the past year? If so, by whom?: No Do you feel safe in your current relationship?: No Is there a partner from a previous relationship who is making you feel unsafe now?: No Are you made to feel afraid or neglected: No Spiritual Healthcare Practices: none reported Advance Directives: No Advance Directives Information Provided: Yes Do you have thoughts of harming others: None Do you have a plan to hurt others: No Plan Recently lost weight without trying: No Poor oral hygiene: No service: No Current occupational status: retired [employer] Allergies Allergy/AdvReac Type Severity Reaction Status Date / Time No Known Allergies Allergy Verified 08/18/21 21:21 Active Medications: Current Medications Acetaminophen (Acetaminophen 325 Mg Tablet) 650 mg PO Q6H PRN PRN Reason: Pain, Mild (Pain Scale 1-3) Last Admin: 08/24/21 20:20 Dose: 650 mg Documented by: Albuterol/Ipratropium (Albuterol/Iprat 2.5/0.5mg 3 Ml Ampul.Neb) 3 ml INHALE RQ4H PRN PRN Reason: Shortness of Breath/Wheezing Last Admin: 08/20/21 22:15 Dose: 3 ml Documented by: Aspirin (Aspirin Enteric Coated 81 Mg Tablet.) 81 mg PO DAILY [facility] Last Admin: 08/25/21 08:08 Dose: 81 mg Documented by: Atorvastatin Calcium (Atorvastatin Calcium 80 Mg Tablet) 80 mg PO BEDTIME [facility] Last Admin: 08/24/21 20:17 Dose: 80 mg Documented by: Carvedilol (Carvedilol 25 Mg Tablet) 25 mg PO BID [facility]; Protocol Last Admin: 08/25/21 09:04 Dose: 25 mg Documented by: Dextrose (Dextrose 50 % 25 Gm/50 Ml Vial) 25 gm IVPUSH Q15M PRN; Protocol PRN Reason: per Hypoglycemia Standing Ord. Doxazosin Mesylate (Doxazosin Mesylate 2 Mg Tablet) 2 mg PO BID [facility]; Protocol Last Admin: 08/25/21 09:04 Dose: 2 mg Documented by: Fenofibrate (Fenofibrate,Micronized 134 Mg Capsule) 134 mg PO BEDTIME [facility] Last Admin: 08/24/21 20:15 Dose: 134 mg Documented by: Fluticasone Propionate (Fluticasone Propionate 250 Mcg Blst.W.Dev) 2 puff INHALE RBID [facility] Last Admin: 08/25/21 11:06 Dose: Not Given Documented by: Gabapentin (Gabapentin 600 Mg Tablet) 600 mg PO TID [facility] Last Admin: 08/25/21 09:04 Dose: 600 mg Documented by: Glucose (Glucose Gel 15 Gm Gel..Gram.) 15 gm PO Q15M PRN; Protocol PRN Reason: per Hypoglycemia Standing Ord. Heparin Sodium (Porcine) (Heparin Sodium,Porcine 5,000 Unit/Ml Vial) 5,000 unit SUBCUT Q12H [facility] Last Admin: 08/25/21 11:43 Dose: 5,000 unit Documented by: Hydralazine HCl (Hydralazine Hcl 50 Mg Tablet) 100 mg PO TID [facility]; Protocol Last Admin: 08/25/21 09:03 Dose: 100 mg Documented by: Insulin Glargine (Insulin Glargine,Hum.Rec.Anlog 100 Unit/Ml 10 Ml Vial) 48 unit SUBCUT DAILY [facility] Last Admin: 08/25/21 08:07 Dose: 48 unit Documented by: Insulin Human Lispro (Insulin Lispro 100 Unit/Ml 3 Ml Vial) 0 unit SUBCUT QIDACHS [facility]; Protocol Last Admin: 08/25/21 11:43 Dose: 4 unit Documented by: Nifedipine (Nifedipine Er 60 Mg Tab.Er.24) 120 mg PO BEDTIME [facility] Last Admin: 08/24/21 20:16 Dose: 120 mg Documented by: Omeprazole (Omeprazole 40 Mg Capsule.) 40 mg PO DAILY@0630 [facility] Last Admin: 08/25/21 05:58 Dose: 40 mg Documented by: Ondansetron HCl (Ondansetron Hcl 4 Mg/2 Ml Vial) 4 mg IVPUSH Q8H PRN PRN Reason: Nausea and Vomiting Oxcarbazepine (Oxcarbazepine 300 Mg Tablet) 300 mg PO BID [facility] Last Admin: 08/25/21 08:08 Dose: 300 mg Documented by: Perphenazine (Perphenazine 4 Mg Tablet) 4 mg PO BID [facility] Last Admin: 08/25/21 08:08 Dose: 4 mg Documented by: Pharmacy Consult (Consult Rx Perform Med Rec) 1 each MISCELLANE ONCE PRN PRN Reason: Consult order Sertraline HCl (Sertraline Hcl 100 Mg Tablet) 200 mg PO DAILY [facility] Last Admin: 08/25/21 08:08 Dose: 200 mg Documented by: Torsemide (Torsemide 20 Mg Tablet) 100 mg PO DAILY [facility]; Protocol Last Admin: 08/25/21 09:03 Dose: 100 mg Documented by: Vitamin D (Cholecalciferol (Vitamin D3) 25 Mcg Tablet) 50 mcg PO DAILY [facility] Last Admin: 08/25/21 08:08 Dose: 50 mcg Documented by: Home Medications Medication Instructions Recorded Confirmed Last Taken Type aspirin 81 mg tablet,delayed 81 mg PO QAM 07/25/20 08/18/21 02/02/21 History release (Aspir-) atorvastatin 80 mg tablet 80 mg PO BEDTIME 07/25/20 08/18/21 02/02/21 History carvedilol 25 mg tablet 25 mg PO BID 07/25/20 08/18/21 02/02/21 History cholecalciferol (vitamin D3) 25 50 mcg PO DAILY 07/25/20 08/18/21 02/02/21 History mcg (1,000 unit) capsule (Vitamin D3) fenofibrate nanocrystallized 145 145 mg PO QPM 07/25/20 08/18/21 02/02/21 History mg tablet gabapentin 600 mg tablet 600 mg PO TID 07/25/20 08/18/21 02/02/21 History oxcarbazepine 300 mg tablet 300 mg PO BID 07/25/20 08/18/21 02/02/21 History perphenazine 4 mg tablet 4 mg PO BID 07/25/20 08/18/21 02/02/21 History sertraline 100 mg tablet 200 mg PO DAILY 07/25/20 08/18/21 02/02/21 History tramadol 50 mg tablet 2 tab PO Q8H PRN 01/23/21 08/18/21 02/02/21 History zolpidem 10 mg tablet 1 tab PO BEDTIME 01/23/21 08/18/21 02/02/21 History fluticasone propionate 220 2 puff PO BID 08/18/21 08/18/21 Unknown History mcg/actuation HFA aerosol inhaler (Flovent HFA) nifedipine 30 mg tablet,extended 120 mg PO QPM 08/18/21 08/18/21 Unknown History release Physical Exam Vital Signs: Vital Signs: Last Vital Signs Temp 97.9 F 08/25/21 11:24 Pulse 60 08/25/21 11:24 Resp 20 08/25/21 11:24 BP 134/54 L 08/25/21 11:24 Pulse Ox 96 08/25/21 11:24 Body Mass Index 35.2 Const: General: cooperative, healthy appearing and comfortable Orientation/consciousness: oriented to person, oriented to place and oriented to time HENMT: Head: Yes normal to inspection Neck: Neck: Yes normal visual inspection Carotids: no bruits Chest: Chest palpation & inspection: normal inspection of the chest Resp: Effort & Inspection: normal respiratory effort and able to speak in complete sentences Auscultation: clear to auscultation bilaterally, no crackles, no rales, no rhonchi and no wheezes Cardio: Rate: regular rate Rhythm: regular rhythm Heart sounds: S1 normal heart sound present and S2 normal heart sound present Bruits: no carotid bruits Peripheral pulses: brachial pulses present, radial pulses present and ulnar radial pulses present GI: Inspection: Yes normal to inspection Skin: Wounds: no wounds Hair: normal Neuro: General: oriented to person, oriented to place and oriented to time Cranial nerves: Yes CN's II-XII intact bilaterally and Yes Normal hearing present Cognition (Neuro): normal cognition Motor exam (neuro): 5/5 motor strength present throughout Extrem: Other: venous exam: +2 edema General: No clubbing, No cyanosis and No edema Psych: Appearance: grossly normal Mental Status: mental status grossly normal Speech and movement: Normal speech and movement present Results Labs Result diagrams: 08/19/21 06:23 08/25/21 08:13 Labs: Abnormal lab results 08/24/21 08/24/21 08/25/21 Range/Units 15:49 19:59 07:07 BUN (9-16) mg/dL Creatinine (0.5-1.4) mg/dL POC Glucose 190 H 243 H 187 H (60-115) mg/dL Random Glucose (60-115) mg/dL 08/25/21 08/25/21 Range/Units 08:13 10:48 BUN 76 H (9-16) mg/dL Creatinine 5.43 H* (0.5-1.4) mg/dL POC Glucose 247 H (60-115) mg/dL Random Glucose 177 H (60-115) mg/dL BMP 08/25/21 08:13 Sodium 141 Potassium 3.9 Chloride 101 Carbon Dioxide 27 BUN 76 H Creatinine 5.43 H* Calcium 8.6 Urine 08/18/21 Range/Units 20:14 Urine Color YELLOW Urine Appearance CLEAR Urine pH 6.0 (5.0-8.0) Ur Specific Gordon 1.025 (1.005-1.025) Urine Protein 2+ H (NEG-TRACE) MG/DL Urine Glucose (UA) NEG (NEG) MG/DL All other labs normal. Assessment and Plan (1) Chronic kidney disease, stage 4 (severe): Status: Acute In short patient has chronic renal insufficiency. It is suspected that he will be on dialysis within the next 3-6 months. We will be able to were come up as an outpatient for permanent dialysis access. This was discussed in detail with the patient along with options. He will follow up with us once discharged. Thank you for allowing us to assist in his care. If there are any questions or concerns please do not hesitate to contact us. The patient had an opportunity to ask questions regarding the treatment plan. All questions were answered. Imaging studies, laboratory studies and physical exam results were discussed and reviewed in detail. No major barriers to understanding were identified. The patient expressed understanding and agreement with the above treatment plan. The patient is aware they should contact our office by phone for worsening of the current condition or the appearance of new symptoms. Thank you for allowing me to participate in the vascular care of this patient. If you have any questions or concerns regarding the treatment for the above condition please do not hesitate to contact me. The office telephone contact is [phone]. This note is constructed using voice recognition software. While every effort has been made to ensure accuracy, sustainable landscape architect errors may have been included. Thank you for allowing me to participate in the care of your patient. Yours sincerely, Jayjay Dawson MD, FACS, R.P.V.I. Procedures Date of Service Date of Service: 08/25/21
--- NOTE | 2021-08-25 12:49 | PM.DS ---
DS: Providers Provider Date of Service: 08/25/21 <CORNELIO Villatoro - Last Filed: 08/25/21 14:36> Date of admission: 08/18/21 22:50 <CORNELIO Villatoro - Last Filed: 08/25/21 14:36> Date of discharge: 08/25/21 <CORNELIO Villatoro - Last Filed: 08/25/21 14:36> Primary care physician: Nuvia Crook NP <CORNELIO Villatoro - Last Filed: 08/25/21 14:36> Consults: 08/18/21 22:56 Consult to Nephrology Routine Consulting Provider: [facility] Reason for consultation: MARNI on CKD Has provider been notified: No 08/25/21 09:53 Consult to Vascular Surgery Routine Consulting Provider: Jayjay Dawson Reason for consultation: ESRD, eval for fistula Has provider been notified: No <CORNELIO Villatoro - Last Filed: 08/25/21 14:36> Attending physician on discharge: Hayes Delgado <CORNELIO Villatoro - Last Filed: 08/25/21 14:36> Discharging clinician: Mary Steel <CORNELIO Villatoro - Last Filed: 08/25/21 14:36> DS: Diagnosis Discharge Diagnosis (1) Chronic kidney disease, stage 4 (severe): Status: Acute <CORNELIO Villatoro - Last Filed: 08/25/21 14:36> (2) Hypertensive urgency: Status: Acute <CORNELIO Villatoro - Last Filed: 08/25/21 14:36> (3) CHF (congestive heart failure): Status: Acute <CORNELIO Villatoro - Last Filed: 08/25/21 14:36> DS: Summary Hospital Course Hospital Course: From H&P on day of admission Medical history of CHF, CKD, COPD, diabetes, hypertension, history of hypertensive crisis, HLD, sleep apnea, depression and anxiety, who presents to the hospital with multiple complaints including hyperglycemia as well as elevated blood pressure, headache, dizziness, nausea vomiting. Patient reports that he checked his sugars, they were in the 300 which concerned him, he took his insulin at home with improvement in his glucose but continued to have headache, dizziness, nausea and vomiting, decided to come to the hospital.? On arrival to the ED patient found to have blood pressure of 196/72. ? Patient currently denies any chest pain, he reports that his headache is improved, 25 mg as well as hydralazine 100 mg p.o. with slight improvement in his blood pressure.? He now reports improvement in his headache, no change in vision, denies any chest pain palpitations or shortness of breath, no abdominal pain at this time, nausea has resolved, no diarrhea constipation, no urinary symptoms.? He reports chronic lower extremity edema that has not changed. ?Other vitals on arrival within normal range Labs significant for? WBC of 6.5, hemoglobin of 10 point 2, BUN of 78 with a creatinine of 5.92 with a baseline around 4.45, glucose on arrival of 196, UA negative for UTI, urine creatinine of 80.97, urine sodium of 87, ?Head CT unremarkable Patient will be admitted for further management Hypertension. Patient was admitted to the hospital for management of uncontrolled hypertension. His nephrotoxic medications including Aldactone, torsemide, lisinopril were placed on hold due to MARNI. The remainder of his blood pressure medications were continued. A renal ultrasound showed no evidence of renal artery stenosis. He was seen by nephrology who added cardura. Eventually torsemide was added back to his regimen as well. His blood pressure has improved significantly. His headache resolved on day 1 of admission was likely secondary to uncontrolled hypertension. MARNI on CKD 4-5. Patient was admitted with a creatinine of 5.92 which is somewhat above his baseline. It improved to 4.25 while holding nephrotoxic medications and gentle IVF. His course was complicated by CHF likely due to IV fluids. IV fluids were discontinued and he was started on IV diuresis. Echocardiogram showed preserved ejection fraction with severely increased left ventricular wall thickness and abnormal diastolic function. His fluid status improved and was resumed on his oral torsemide. Creatinine rebounded to 5.43 after resuming torsemide. This was discussed with Nephrology who felt the patient could still be discharged home with close outpatient follow up. He is encouraged to call to schedule follow-up appointment with Nephrology. He was evaluated by vascular surgery for outpatient fistula formation of the patient will likely need dialysis in the near future. This was discussed with the patient in detail. Attending Attestation: I have personally seen and examined the patient independently, reviewed the NPP history, exam and?MDM and agree with the assessment and plan as?written. Agree with the discharge summary and plan. <CORNELIO Villatoro - Last Filed: 08/25/21 14:36> Time Spent with Patient Time attestation: Total time spent providing and/or coordinating discharge services: <CORNELIO Villatoro - Last Filed: 08/25/21 14:36> Discharge coordination time: Greater than 30 minutes <CORNELIO Villatoro - Last Filed: 08/25/21 14:36> Quality: Stroke Does the patient have a stroke diagnosis?: No <CORNELIO Villatoro Last Filed: 08/25/21 14:36> Physical Exam Vital Signs: Vital Signs: Last Vital Signs Temp 97.9 F 08/25/21 11:24 Pulse 60 08/25/21 11:24 Resp 20 08/25/21 11:24 BP 134/54 L 08/25/21 11:24 Pulse Ox 96 08/25/21 11:24 Body Mass Index 35.2 <CORNELIO Villatoro - Last Filed: 08/25/21 14:36> Const: General: alert and awake <CORNELIO Villatoro Last Filed: 08/25/21 14:36> Nutritional Appearance: well nourished <CORNELIO Villatoro Last Filed: 08/25/21 14:36> Orientation/consciousness: patient oriented x3 <CORNELIO Villatoro Last Filed: 08/25/21 14:36> HENMT: Head: Yes normocephalic and Yes atraumatic <CORNELIO Villatoro Last Filed: 08/25/21 14:36> Eyes: Sclerae: sclerae normal <CORNELIO Villatoro Last Filed: 08/25/21 14:36> Chest: Chest palpation & inspection: normal inspection of the chest <CORNELIO Villatoro Last Filed: 08/25/21 14:36> Resp: Other: lungs clear <CORNELIO Villatoro Last Filed: 08/25/21 14:36> Effort & Inspection: normal respiratory effort and no respiratory distress <CORNELIO Villatoro - Last Filed: 08/25/21 14:36> Cardio: Rate: regular rate <CORNELIO Villatoro Last Filed: 08/25/21 14:36> Rhythm: regular rhythm <CORNELIO Villatoro - Last Filed: 08/25/21 14:36> GI: Palpation (GI): Soft to palpation and nontender <CORNELIO Villatoro - Last Filed: 08/25/21 14:36> Neuro: General: patient oriented x3 <CORNELIO Villatoro Last Filed: 08/25/21 14:36> Cranial nerves: Yes CN's II-XII intact bilaterally and Yes Bilaterally intact EOM present <CORNELIO Villatoro Last Filed: 08/25/21 14:36> Extrem: Other: trace leg edema <CORNELIO Villatoro Last Filed: 08/25/21 14:36> DS: Data Data Completed and Pending Completed studies during hospitalization [Text1]: Procedures Excision of Duodenum, Via Natural or Artificial Opening Endoscopic, Diagnostic (02/03/21) <CORNELIO Villatoro Last Filed: 08/25/21 14:36> Labs on day of discharge: Laboratory Results - last 24 hr 08/24/21 08/24/21 08/25/21 15:49 19:59 07:07 Sodium Potassium Chloride Carbon Dioxide Anion Gap BUN Creatinine Estim Creat Clear Calc Estimated GFR POC Glucose 190 H 243 H 187 H Random Glucose Calcium 08/25/21 08/25/21 08:13 10:48 Sodium 141 Potassium 3.9 Chloride 101 Carbon Dioxide 27 Anion Gap 17 BUN 76 H Creatinine 5.43 H* Estim Creat Clear Calc 18.6 Estimated GFR 11 POC Glucose 247 H Random Glucose 177 H Calcium 8.6 <CORNELIO Villatoro Last Filed: 08/25/21 14:36> Discharge Plan Discharge Patient Disposition: Home, Self-Care <CORNELIO Villatoro Last Filed: 08/25/21 14:36> Discharge Diagnosis: Uncontrolled HTN MARNI on CKD <CORNELIO Villatoro Last Filed: 08/25/21 14:36> Uncontrolled HTN MRANI on CKD <Hayes Delgado MD - Last Filed: 08/25/21 14:11> Referrals: Jayjay Dawson MD [Physician] - 1 Week Renard Ritchie MD [Physician] - 1 Week Nuvia Crook NP [Primary Care Provider] - 09/04/21 11:00 am (You have a telephone appointment with Dr. Crook on September 04 at 11 am. Your doctor will call you at the time of your appointment.) <CORNELIO Villatoro - Last Filed: 08/25/21 14:36> Discharge Medications: New doxazosin 2 mg Tablet 2 mg PO BID 30 Days Qty: 60 RF: 0 torsemide 100 mg tablet 100 mg PO DAILY 30 Days Qty: 30 RF: 0 Continued hydralazine 100 mg tablet 100 mg PO TID 90 Days Qty: 270 RF: 0 Toujeo Max U-300 SoloStar 300 unit/mL (3 mL) insulin pen 60 unit subcut DAILY Qty: 6 RF: 4 insulin aspart U-100 [Novolog Flexpen U-100 Insulin] 100 unit/mL (3 mL) insulin pen See Rx Instructions subcut TID 30 Days Qty: 30 RF: 4 atorvastatin 80 mg Tablet 80 mg PO BEDTIME RF: 0 sertraline 100 mg Tablet 200 mg PO DAILY RF: 0 aspirin [Aspir-81] 81 mg Tablet,Delayed Release (Dr/Ec) 81 mg PO QAM RF: 0 fenofibrate nanocrystallized 145 mg Tablet 145 mg PO QPM RF: 0 gabapentin 600 mg Tablet 600 mg PO TID RF: 0 oxcarbazepine 300 mg Tablet 300 mg PO BID RF: 0 perphenazine 4 mg Tablet 4 mg PO BID RF: 0 cholecalciferol (vitamin D3) [Vitamin D3] 25 mcg (1,000 unit) Capsule 50 mcg PO DAILY RF: 0 carvedilol 25 mg Tablet 25 mg PO BID RF: 0 omeprazole 40 mg Capsule,Delayed Release(Dr/Ec) 40 mg PO DAILY@0630 Qty: 30 RF: 0 tramadol 50 mg tablet 2 tab PO Q8H PRN (Reason: Pain) RF: 0 zolpidem 10 mg tablet 1 tab PO BEDTIME RF: 0 Flovent HFA 220 mcg/actuation HFA aerosol inhaler 2 puff PO BID RF: 0 nifedipine 30 mg tablet extended release 120 mg PO QPM RF: 0 glucose [Dex4 Glucose] 4 gram tablet,chewable 16 g PO Q15M PRN (Reason: hypoglycemia) Qty: 30 RF: 6 Discontinued lisinopril 40 mg tablet 40 mg PO QAM Qty: 30 RF: 6 spironolactone 25 mg Tablet 50 mg PO DAILY@1200 RF: 0 torsemide 20 mg Tablet 60 mg PO DAILY Qty: 90 RF: 0 <CORNELIO Villatoro - Last Filed: 08/25/21 14:36> Discharge Orders: Discharge Order (Routine); Ordered 08/25/21 Ordered By: Mary Steel <CORNELIO Villatoro - Last Filed: 08/25/21 14:36> Diet: diabetic diet and low salt diet <CORNELIO Villatoro - Last Filed: 08/25/21 14:36> diabetic diet and low salt diet <Hayes Delgado MD - Last Filed: 08/25/21 14:11> Activity on Discharge: As tolerated <CORNELIO Villatoro - Last Filed: 08/25/21 14:36> As tolerated <Hayes Delgado MD - Last Filed: 08/25/21 14:11> Stand Alone Forms: Patient Portal Discharge page <CORNELIO Villatoro - Last Filed: 08/25/21 14:36> Other Ambulatory Orders: Basic Metabolic Panel (Routine) Timeframe: [id number] Facility: [facility] - Location: Laboratory Ordered By: Mary Steel <CORNELIO Villatoro - Last Filed: 08/25/21 14:36> Care Plan Goals: See below <CORNELIO Villatoro - Last Filed: 08/25/21 14:36> Health Concerns: Uncontrolled hypertension MARNI on CKD Headache <CORNELIO Villatoro - Last Filed: 08/25/21 14:36> Plan of Treatment: Your blood pressure medications have been changed. Please see above changes and take medications as prescribed. Call to schedule a follow-up appointment with Dr. Ritchie, the supervisor anodizing Call to schedule a follow-up appointment with Dr. Dawson, the vascular surgeon for evaluation of fistula formation Repeat blood work is ordered for Saturday <CORNELIO Villatoro - Last Filed: 08/25/21 14:36> Assessment: See discharge summary <CORNELIO Villatoro - Last Filed: 08/25/21 14:36>
--- NOTE | 2021-08-25 14:38 | MHC.CM.PN ---
PT TO [place] HOME TODAY SISTER TO TRANSPORT
== END 2021-08-25 15:06 | disposition home or self-care (01) | DRG 291 ==
LOC: HO.ED 20:59 → HO.EDOVER 23:22 → HO.IMC 23:59
PROVIDERS: Family Medicine; Nurse Practitioner Acute Care; Physician Assistant; Admitting Provider Internal Medicine; Emergency Provider Emergency Medicine; PCP Nurse Practitioner Primary Care; Visit Provider Physician Assistant Medical
DX: I13.0 Hypertensive heart and chronic kidney disease with heart failure and stage 1 through stage 4 chronic kidney disease, or unspecified chronic kidney disease (principal); N17.0 Acute kidney failure with tubular necrosis; N18.4 Chronic kidney disease, stage 4 (severe); I16.0 Hypertensive urgency; I50.9 Heart failure, unspecified; E11.65 Type 2 diabetes mellitus with hyperglycemia; F41.9 Anxiety disorder, unspecified; F32.A Depression, unspecified; E86.0 Dehydration; E11.22 Type 2 diabetes mellitus with diabetic chronic kidney disease; G47.33 Obstructive sleep apnea (adult) (pediatric); K27.9 Peptic ulcer, site unspecified, unspecified as acute or chronic, without hemorrhage or perforation; Z20.822 Contact with and (suspected) exposure to COVID-19; Z87.891 Personal history of nicotine dependence; Z79.891 Long term (current) use of opiate analgesic; Z79.4 Long term (current) use of insulin; Z79.899 Other long term (current) drug therapy
CPT/HCPCS: 36415; 70450; 80048; 81001; 82947; 83880; 83935; 84300; 85025; 87635; 93005; 93306; 93975; 94640; 94660; 96360; 99285; J1940

== ENCOUNTER → 2021-08-31 09:37 | Outpatient (BNVA) | payer OTHER, SELFPAY | PROVIDERS: PCP Nurse Practitioner Primary Care; Visit Provider Surgery Vascular Surgery | DX: I12.9 Hypertensive chronic kidney disease with stage 1 through stage 4 chronic kidney disease, or unspecified chronic kidney disease (principal); N18.4 Chronic kidney disease, stage 4 (severe) | CPT/HCPCS: 99212 ==

== ENCOUNTER 2021-09-11 13:54 | Outpatient (REF) | payer OTHER, SELFPAY ==
[2021-09-11 14:48] LABS: Anion Gap 16 (12-20); Blood Urea Nitrogen 63 mg/dL (9-16); Calcium 8.1 mg/dL (8.4-10.2); Carbon Dioxide 28 mmol/L (22-29); Chloride 103 mmol/L (96-108); Estimated Glomerular Filt Rate 12; Glucose Random 138 mg/dL (60-115); Potassium 3.6 mmol/L (3.3-5.1); Sodium 143 mmol/L (135-145)
== END 2021-09-11 13:55 | disposition home or self-care (01) ==
LOC: HO.LAB 13:54
PROVIDERS: PCP Nurse Practitioner Primary Care; Visit Provider Physician Assistant Medical
DX: N18.4 Chronic kidney disease, stage 4 (severe) (principal)
CPT/HCPCS: 36415; 80048

== ENCOUNTER 2021-09-13 09:18 | Outpatient (REF) | payer OTHER, SELFPAY ==
--- NOTE | ~2021-09-13 | US_ITS ---
EXAMINATION: BILATERAL LOWER EXTREMITY VENOUS ULTRASOUND (Reflux Exam) CLINICAL INDICATION: This is a 60-year-old male with varicose veins and venous insufficiency. COMPARISON: None. TECHNIQUE: Color flow triplex imaging and compression Doppler was performed to evaluate both the deep and the superficial systems bilaterally. To evaluate the superficial system, the examination was performed in the upright position. Color-flow Doppler ultrasound and compression ultrasound were utilized. In addition, maneuvers were utilized to demonstrate reflux. FINDINGS: 1. DEEP VENOUS ULTRASOUND OF THE RIGHT LOWER EXTREMITY: Common Femoral Vein: Compressible, normal respiratory variation and augmented flow. Femoral vein: Compressible, normal color flow and augmentation. Popliteal Vein: Compressible, normal augmentation. Deep Reflux: There is no evidence of reflux in the deep system in either the common femoral vein or the popliteal vein. . There is no evidence of a Michelle's cyst. 2. SUPERFICIAL ULTRASOUND WITH DOPPLER OF RIGHT LOWER EXTREMITY GREAT SAPHENOUS VEIN: Saphenofemoral junction: 0.6 cm. There is no reflux. Mid thigh: 0.3 cm. The reflux time is 1304 ms. Above knee: 0.4 cm. There is no reflux at this level and below. Below knee: 0.3 cm GSV REFLUX: There is isolated reflux only in the mid thigh. DUPLICATED GREAT SAPHENOUS VEIN: There is a 0.3 cm duplicated great saphenous vein without reflux. SMALL SAPHENOUS VEIN: Upper: 0.4 cm Lower: 0.3 cm SSV REFLUX: No evidence of reflux. VEIN OF GIACOMINI: None Imaged. PERFORATORS: None Imaged VARICOSITIES: There are 0.3 cm proximal thigh varicose veins without reflux. 3. DEEP VENOUS ULTRASOUND OF THE LEFT LOWER EXTREMITY: Common Femoral Vein: Compressible, normal respiratory variation and augmented flow. Femoral vein: Compressible, normal color flow and augmentation. Popliteal Vein: The popliteal vein is compressible but has reflux of 1752 ms. Deep Reflux: There is no evidence of reflux in the deep system in only the popliteal vein. There is no evidence of a Michelle's cyst. 4. SUPERFICIAL ULTRASOUND WITH DOPPLER OF LEFT LOWER EXTREMITY GREAT SAPHENOUS VEIN: Saphenofemoral junction: 0.9 cm. There is no reflux. Mid thigh: 0.4 cm. There is no reflux. Above knee: 0.4 cm. There is no reflux. Below knee: 0.3 cm. The reflux time is 2031 ms. Mid calf: 0.2 cm. There is no reflux. Ankle: 0.3 cm GSV REFLUX: There is only isolated reflux below the knee. It is not present at the junction. DUPLICATED GREAT SAPHENOUS VEIN: There is a 0.3 cm duplicated lateral great saphenous vein without reflux. SMALL SAPHENOUS VEIN: Not seen. SSV REFLUX: No evidence of reflux. VEIN OF GIACOMINI: None Imaged. PERFORATORS: There is a mid calf patient services assistant measuring 0.3 cm without reflux. VARICOSITIES: None Imaged US/US venous duplex LE BI IMPRESSION: 1. There is a patent right great saphenous vein without evidence of reflux at the junction. 2. There is a patent duplicated right lateral great saphenous vein without reflux. 3. There is a patent right small saphenous vein without reflux. 4. There is a proximal right thigh 0.3 cm varicose veins without reflux. 5. There is a patent left great saphenous vein without evidence of reflux at the junction. 6. There is a patent duplicated left lateral great saphenous vein without reflux. 7. The left small saphenous vein is not seen. 8. No significant varicose veins are seen on the left. 9. There is reflux in the left popliteal vein but not the left common femoral vein.
--- NOTE | ~2021-09-13 | US_ITS ---
EXAMINATION: COLOR-FLOW DUPLEX IMAGING OF THE BILATERAL LOWER EXTREMITY ARTERIAL SYSTEM. VELOCITY MEASUREMENTS THROUGHOUT THE FEMORAL ARTERIES WITH ANKLE-BRACHIAL PERIPHERAL ARTERIAL TESTING. Interventional Radiologist: Judson Jha M.D., F.S.I.R., F.A.C.R. CLINICAL INFORMATION: This is a 60-year-old male with peripheral arterial disease. Claudication. RIGHT FEMORAL RUNOFF VELOCITIES: The right common femoral artery measures 220 cm/s and triphasic. The right profunda femoral artery is 361 cm/s and is biphasic. Right proximal superficial femoral artery measures 202 cm/s and biphasic. Mid superficial femoral artery is 445 cm/s and monophasic. Distal right superficial femoral artery measures 117 cm/s and is biphasic. Right popliteal velocity measures 76 cm/s and is biphasic. The posterior tibial artery velocity measures 68 cm/s and was monophasic. The right ankle-brachial index is 0.58. This is abnormal. LEFT FEMORAL RUNOFF VELOCITIES: The left common femoral artery measures 209 cm/s and triphasic. The left profunda femoral artery is 240 cm/s and is triphasic. Left proximal superficial femoral artery measures 212 cm/s and triphasic. Mid superficial femoral artery is 485 cm/s and monophasic. Distal left superficial femoral artery measures 117 cm/s and is monophasic. Left popliteal velocity measures 118 cm/s and is monophasic. The posterior tibial artery velocity measures 57 cm/s and was biphasic. The left ankle-brachial index is 0.69. This is abnormal. US/US arterial duplex LE BI IMPRESSION: 1 RIGHT SIDE: There are elevated velocities in the right common femoral artery extending into the proximal and mid right superficial femoral artery that appear to be hemodynamically significant. There is likely hemodynamically significant stenosis in the right profunda femoral artery. There is likely a hemodynamically significant stenosis in the right superficial femoral artery. The ankle-brachial index confirms hemodynamically significant disease. 2. LEFT SIDE: There are elevated velocities in the left common femoral artery extending into the profunda femoral artery, proximal superficial femoral artery, mid superficial femoral artery. This suggests a hemodynamically significant stenosis along this course. The ankle-brachial index confirms hemodynamically significant disease. 3. Incidental note is made of elevated right brachial systolic pressure of 206 mmHg. This critical result was communicated directly by telephone to Dr. Dawson at 1100 hrs on 09/13/2021 and the content and urgency of the communication was understood.
== END 2021-09-13 09:19 | disposition home or self-care (01) ==
LOC: HO.US 09:18
PROVIDERS: PCP Nurse Practitioner Primary Care; Visit Provider Surgery Vascular Surgery
DX: I83.11 Varicose veins of right lower extremity with inflammation (principal); I73.9 Peripheral vascular disease, unspecified
CPT/HCPCS: 93923; 93925; 93970

== ENCOUNTER → 2021-09-18 09:23 | Outpatient (BNVA) | payer OTHER, SELFPAY | PROVIDERS: PCP Nurse Practitioner Primary Care; Referring Provider Nurse Practitioner Primary Care; Visit Provider Internal Medicine | DX: I51.89 Other ill-defined heart diseases (principal); E11.22 Type 2 diabetes mellitus with diabetic chronic kidney disease; I12.9 Hypertensive chronic kidney disease with stage 1 through stage 4 chronic kidney disease, or unspecified chronic kidney disease; N18.4 Chronic kidney disease, stage 4 (severe) | CPT/HCPCS: 99212 ==

== ENCOUNTER 2021-09-19 11:42 | Emergency (ER) | payer OTHER, SELFPAY ==
--- NOTE | ~2021-09-19 | CT_ITS ---
EXAMINATION: CT HEAD WITHOUT CONTRAST CLINICAL INFORMATION: Headache. Hypertension. COMPARISON: Previous head CT July 2021 TECHNIQUE: Contiguous axial imaging was performed from the skull base to vertex without intravenous administration of contrast. This CT examination was performed using dose optimization techniques as appropriate, variously including the following: *Automated exposure control *Adjustment of mA and/or kV according to patient size (this includes techniques or standardized protocols for targeted exams where dose is matched to indication/reason for exam; i.e. extremities or head) *Use of iterative reconstruction technique DLP: 876 mGy-cm FINDINGS: There is no evidence of an extra-axial collection. There is no evidence of intra-axial or extra-axial hemorrhage. The ventricles and extra-axial CSF spaces are appropriate. Jj-white matter differentiation is normal. There is question of an old small left basal ganglia lacunar infarct. No mass, mass effect or acute infarct is seen. No skull fracture or bone lesion is seen. There is soft tissue opacification of the right mastoid air cells exam. CT/CT head/brain wo con IMPRESSION: No acute intracranial findings. No change from previous exams.
--- NOTE | ~2021-09-19 | XR_ITS ---
EXAMINATION: XR CHEST CLINICAL INFORMATION: Shortness of breath COMPARISON: Chest radiographs 02/17/2021, 10/13/2020, 01/01/2020 TECHNIQUE: 2 views of the chest were obtained. FINDINGS: The lungs are clear. The vascularity is normal. The heart is within limits of normal size. The costophrenic sulci are clear. The hilar and mediastinal contours are unremarkable. No acute bony abnormality. XR/XR chest 2V IMPRESSION: Unremarkable examination.
[2021-09-19 12:14] VITALS: BP 140/71; PULSE 58; RESP 22; TEMP 36.7; O2SAT 98; BMI 33.9
--- NOTE | 2021-09-19 12:19 | ECG_ITS ---
Test Reason : dyspnea Blood Pressure : / mmHG Vent. Rate : 057 BPM Atrial Rate : 057 BPM P-R Int : 184 ms QRS Dur : 122 ms QT Int : 454 ms P-R-T Axes : 047 -50 -25 degrees QTc Int : 441 ms Sinus bradycardia Left anterior fascicular block Incomplete right bundle branch block Left ventricular hypertrophy with QRS widening ( R in aVL , [place] product ) Nonspecific ST and T wave abnormality Abnormal ECG When compared with ECG of 18-AUG-2021 20:06, ST now depressed in Inferior leads T wave inversion now evident in Inferior leads Referred By: Generic ED Physician Electronically Signed By:JODI CORTEZ MD
[2021-09-19 13:42] LABS: MANUAL DIFF FLAG NO
[2021-09-19 13:46] LABS: Basophils Percent Auto 0.3 % (0-2); Eosinophils Absolute Auto 0.2 X10*3/uL (0.0-0.4); Eosinophils Percent Auto 3.9 % (0-4); Hematocrit 28.8 % (42.0-52.0); Imm Gran Abs Auto 0.02 X10*3/uL (0.00-0.03); Imm Gran Pct Auto 0.3 % (0.0-0.4); Lymphocytes Absolute Auto 0.9 X10*3/uL (1.2-4.9); Lymphocytes Percent Auto 15.7 % (20-40); Mean Corpuscular HGB Conc 34.7 g/dl (31.0-36.0); Mean Corpuscular Hemoglobin 30.5 pg (27.0-33.0); Mean Corpuscular Volume 87.8 fL (80.0-98.0); Mean Platelet Volume 10.8 fL (9.4-12.4); Monocytes Absolute Auto 0.4 X10*3/uL (0.1-1.2); Neutrophils Absolute Auto 4.3 x10*3/uL (2.0-8.3); Neutrophils Percent Auto 72.8 % (45-73); Platelet Count 159 X10*3/uL (160-400); Red Blood Count 3.28 X10*6/uL (4.60-5.80); Red Cell Distribution Width 12.8 % (11.0-16.0)
[2021-09-19 13:59] LABS: COVID-19 Test Negative (Negative)
[2021-09-19 14:06] LABS: B Type Natriuretic Peptide 116 pg/mL (<100); Troponin-I High Sensitivity 30.4 ng/L (<3.5-35.0)
[2021-09-19 14:14] LABS: Alanine Aminotransferase 35 U/L (0-40); Albumin Level 4.3 g/dL (3.5-5.0); Alkaline Phosphatase 73 U/L (39-117); Anion Gap 15 (12-20); Aspartate Amino Transferase 30 U/L (5-37); Bilirubin Total 0.2 mg/dL (0.0-1.0); Blood Urea Nitrogen 50 mg/dL (9-16); Calcium 8.8 mg/dL (8.4-10.2); Carbon Dioxide 25 mmol/L (22-29); Chloride 106 mmol/L (96-108); Creatinine Clr Calc Pharmacy 23.9; Estimated Glomerular Filt Rate 14; Glucose Random 141 mg/dL (60-115); Potassium 3.6 mmol/L (3.3-5.1); Sodium 142 mmol/L (135-145); Total Protein 7.5 g/dL (6.5-8.0)
[2021-09-19 15:35] VITALS: BP 225/93; PULSE 64; RESP 16; TEMP 36.5; O2SAT 99
--- NOTE | 2021-09-19 15:42 | ED_ITS ---
HPI - SOB/Dyspnea General Chief Complaint: Dyspnea Stated Complaint: hbp Time Seen by Provider: 09/19/21 15:13 Source: patient Mode of arrival: ambulatory History of Present Illness HPI Narrative: 60-year-old male with a past medical history of anxiety, asthma, CHF, CKD, COPD, depression / anxiety, diverticulitis, HLD, HTN, sent to ED [facility] for HTN and dyspnea x2 days initially on exertion now at rest. Patient reports chronic cough and mild LE edema. Reports compliance with home medications however did not take 2nd dose of Hydralazine today, and is out of 1 inhaler. Denies CP, fever, chills, nausea/ vomiting, recent travel, calf pain MD elicited complaint: shortness of breath and cough Related Data Home Medications Medication Instructions Recorded Confirmed aspirin 81 mg tablet,delayed 81 mg PO QAM 07/25/20 09/18/21 release (Aspir-) atorvastatin 80 mg tablet 80 mg PO BEDTIME 07/25/20 09/18/21 carvedilol 25 mg tablet 25 mg PO BID 07/25/20 09/18/21 cholecalciferol (vitamin D3) 25 50 mcg PO DAILY 07/25/20 09/18/21 mcg (1,000 unit) capsule (Vitamin D3) fenofibrate nanocrystallized 145 145 mg PO QPM 07/25/20 09/18/21 mg tablet gabapentin 600 mg tablet 600 mg PO TID 07/25/20 09/18/21 oxcarbazepine 300 mg tablet 300 mg PO BID 07/25/20 09/18/21 perphenazine 4 mg tablet 4 mg PO BID 07/25/20 09/18/21 sertraline 100 mg tablet 200 mg PO DAILY 07/25/20 09/18/21 tramadol 50 mg tablet 2 tab PO Q8H PRN 01/23/21 09/18/21 zolpidem 10 mg tablet 1 tab PO BEDTIME 01/23/21 09/18/21 fluticasone propionate 220 2 puff PO BID 08/18/21 09/18/21 mcg/actuation HFA aerosol inhaler (Flovent HFA) blood sugar diagnostic (FreeStyle #10 ea 08/31/21 Lite Strips) Previous Rx's Medication Instructions Recorded omeprazole 40 mg capsule,delayed 40 mg PO DAILY@0630 #30 cap 02/07/21 release glucose 4 gram chewable tablet 16 g PO Q15M PRN #30 tab 02/20/21 (Dex4 Glucose) insulin aspart U-100 100 unit/mL See Rx Instructions SUBCUT TID 30 06/05/21 (3 mL) subcutaneous pen (Novolog Days #30 ml Flexpen U-100 Insulin aspart) insulin glargine U-300 conc 300 60 unit (0.2 mL) SUBCUT DAILY #6 ml 06/05/21 unit/mL (3 mL) subcutaneous pen (Toujeo Max U-300 SoloStar) doxazosin 2 mg tablet 2 mg PO BID 30 Days #60 tab 08/30/21 hydralazine 100 mg tablet 100 mg PO TID 30 Days #30 tab 08/30/21 nifedipine 30 mg tablet,extended 120 mg PO QPM #30 tab 08/30/21 release torsemide 100 mg tablet 100 mg PO DAILY 30 Days #30 tab 08/30/21 Allergies Allergy/AdvReac Type Severity Reaction Status Date / Time No Known Allergies Allergy Verified 09/19/21 12:14 Review of Systems Review of Systems: Constitutional: No Fever, No Chills, No Fatigue, No Malaise ENT/Mouth:No Ear Pain, No Nasal Congestion, No Sinus Pain, No sore throat Eyes: No Eye Pain, No Swelling, No Redness Cardiovascular: No Chest Pain, + SOB, + Dyspnea on Exertion, No Orthopnea, + Edema, No Palpitations Respiratory: + Cough, No Sputum, No Wheezing, +Dyspnea Gastrointestinal: No Nausea, No Vomiting, No Diarrhea, No Constipation, No Abdominal pain Genitourinary: No irregular bleeding, No Dysuria, No Urinary Frequency, No Hematuria, No Hesitancy Musculoskeletal: No joint pain, No Myalgias, No Joint Swelling Skin: No Skin Lesions, No rash Neuro: No Weakness, No Numbness, No Dizziness, + Headache Yes all other systems are reviewed and are negative PMFSH Past Medical History Attestation statement: The following information was validated with the patient. Medical History (Updated 09/19/21 @ 17:16 by CORNELIO Bowie) Abnormal biopsy of kidney Anxiety Asthma CHF (congestive heart failure) Chronic kidney disease, stage 4 (severe) COPD (chronic obstructive pulmonary disease) Depression Depression with anxiety Diabetes mellitus with hyperglycemia, with long-term current use of insulin Diverticulitis Elevated cholesterol Erectile dysfunction History of alcohol abuse History of headache HTN (hypertension) Hx of pancreatitis Hyperglycemia Hypertension Hypertensive crisis Hypertriglyceridemia On beta doron at home Pancreatitis Peptic ulcer Proteinuria Sleep apnea Type 2 diabetes mellitus with chronic kidney disease Type 2 diabetes mellitus with hyperglycemia, with long-term current use of insulin Type 2 diabetes mellitus with polyneuropathy Surgical History History of surgery Hx of colonoscopy Hx of right inguinal hernia repair Family History Family History Mother Diabetes Social History Social History (Updated 09/14/21 @ 14:55 by Wilda Mccrary RN) Household Members: None Housing: Apartment Are you a primary primary care provider to a significant other at home: No Do you presently have visiting nurse or other home services: Yes Alcohol intake: never Patient Tobacco Use Status: Former Tobacco user Quit Date: 2017 Tobacco use type: Cigarette Years Smoked: 30 Second Hand Smoke Exposure: Yes Advance Directives: No Advance Directives Information Provided: No service: No Current occupational status: retired Physical Exam Vital Signs: Vital Signs: Last Vital Signs Temp 97.7 F 09/19/21 15:35 Pulse 64 09/19/21 15:59 Resp 16 09/19/21 15:35 BP 225/93 H 09/19/21 15:59 Pulse Ox 99 09/19/21 15:35 Body Mass Index 33.9 Const: General: cooperative, healthy appearing and no acute distress Orientation/consciousness: patient oriented x3 Limitations: no limitations HENMT: Head: Yes normal to inspection and Yes atraumatic Ears: hearing grossly normal bilaterally General nose exam: Normal external nose present Face and sinus: Yes normal facial exam Eyes: General: appearance normal, both eyes and all related structures EOM: EOMs intact bilaterally Neck: Neck: Yes normal visual inspection and Yes no meningeal signs Resp: Effort & Inspection: normal respiratory effort Auscultation: clear to auscultation bilaterally, no rales, no rhonchi and no wheezes Cardio: Rate: regular rate Heart sounds: S1 normal heart sound present and S2 normal heart sound present GI: Inspection: Yes normal to inspection Palpation (GI): Soft to palpation, nontender, no guarding and not rigid Skin: Rashes: no rashes Wounds: no wounds Neuro: General: patient oriented x3, tone normal, moves all extremities, no meningeal signs, no focal motor deficits and CN's II-XI intact bilaterally Gait exam (Neuro): Normal gait present Extrem: Other: +2 bilateral LE pitting edema General: Yes normal to inspection Course Course Course Narrative: -1626-- no leukocytosis. H&H at patient's baseline. Chronic CKD. BNP 116. Initial troponin 30.4 > will obtain 3 hour repeat - COVID-19 negative XR chest 2V IMPRESSION: Unremarkable examination. -1647-- On re-evaluation patient lying comfortably in stretcher, in no respira tory distress. Repeat blood pressure after 100mg of p.o. Hydralazine still elevated to 237/99 > will give Nitro paste and re-evaluate -173-- Repeat troponin equivocal, CT unlikely -1800-- ED care transferred to [facility] [facility] [facility] Barbara pending blood pressure control and anticipated DC home MDM - SOB/Dyspnea MDM Narrative Medical decision making narrative: 60-year-old male with a past medical history of anxiety, asthma, CHF, CKD, COPD, depression / anxiety, diverticulitis, HLD, HTN, sent to ED [facility] for HTN and dyspnea x2 days initially on exertion now at rest. On exam hypertensive, NAD, lungs CTA, bilateral LE pitting edema. Concern for hypertensive urgency /emergency vs COPD exacerbation vs CHF vs viral syndrome. Symptoms atypical for ACS plan: EKG, labs, CXR, COVID-19, Head CT, PO home Hydralazine dose, DuoNeb, re- evaluate Medical Records Attestation: I reviewed the patient's medical records. Lab Data Attestation: I reviewed the patient's lab results. Result diagrams: 09/19/21 13:38 09/19/21 13:38 Labs: Lab Results 09/19/21 09/19/21 09/19/21 Range/Units 13:38 13:38 13:38 WBC 6.0 (4.8-10.8) X10*3/uL RBC 3.28 L (4.60-5.80) X10*6/uL Hgb 10.0 L (14.0-18.0) g/dl Hct 28.8 L (42.0-52.0) % MCV 87.8 (80.0-98.0) fL MCH 30.5 (27.0-33.0) pg MCHC 34.7 (31.0-36.0) g/dl RDW 12.8 (11.0-16.0) % Plt Count 159 L (160-400) X10*3/uL MPV 10.8 (9.4-12.4) fL Immature Gran % (Auto) 0.3 (0.0-0.4) % Neut % (Auto) 72.8 (45-73) % Lymph % (Auto) 15.7 L (20-40) % [place] % (Auto) 7.0 (2-11) % Eos % (Auto) 3.9 (0-4) % Baso % (Auto) 0.3 (0-2) % Lymph # (Auto) 0.9 L (1.2-4.9) X10*3/uL [place] # (Auto) 0.4 (0.1-1.2) X10*3/uL Eos # (Auto) 0.2 (0.0-0.4) X10*3/uL Baso # (Auto) 0.0 (0.0-0.2) X10*3/uL Abs Immat Gran (auto) 0.02 (0.00-0.03) X10*3/uL Absolute Neuts (auto) 4.3 (2.0-8.3) x10*3/uL Absolute Nucleated RBC 0.000 (0.0-0.012) X10*3/uL Nucleated RBC % (auto) 0.0 (0.0-0.2) /100WBC Sodium 142 (135-145) mmol/L Potassium 3.6 (3.3-5.1) mmol/L Chloride 106 (96-108) mmol/L Carbon Dioxide 25 (22-29) mmol/L Anion Gap 15 (12-20) BUN 50 H (9-16) mg/dL Creatinine 4.26 H* (0.5-1.4) mg/dL Estim Creat Clear Calc 23.9 Estimated GFR 14 Random Glucose 141 H (60-115) mg/dL Calcium 8.8 D (8.4-10.2) mg/dL Magnesium 2.1 (1.6-2.6) mg/dL Total Bilirubin 0.2 (0.0-1.0) mg/dL AST 30 (5-37) U/L ALT 35 (0-40) U/L Alkaline Phosphatase 73 (39-117) U/L Troponin I High Sens 30.4 (<3.5-35.0) ng/L B-Natriuretic Peptide 116 H (<100) pg/mL Total Protein 7.5 (6.5-8.0) g/dL Albumin 4.3 (3.5-5.0) g/dL COVID-19 (RIGOBERTO) (Negative) COVID-19 Clin Com Influenza Type A (PCR) (Negative) Influenza Type B (PCR) (Negative) RSV RNA Qual (PCR) (Negative) SARS-CoV-2 RNA (RT-PCR) (Negative) 09/19/21 09/19/21 09/19/21 Range/Units 13:38 15:52 17:06 WBC (4.8-10.8) X10*3/uL RBC (4.60-5.80) X10*6/uL Hgb (14.0-18.0) g/dl Hct (42.0-52.0) % MCV (80.0-98.0) fL MCH (27.0-33.0) pg MCHC (31.0-36.0) g/dl RDW (11.0-16.0) % Plt Count (160-400) X10*3/uL MPV (9.4-12.4) fL Immature Gran % (Auto) (0.0-0.4) % Neut % (Auto) (45-73) % Lymph % (Auto) (20-40) % [place] % (Auto) (2-11) % Eos % (Auto) (0-4) % Baso % (Auto) (0-2) % Lymph # (Auto) (1.2-4.9) X10*3/uL [place] # (Auto) (0.1-1.2) X10*3/uL Eos # (Auto) (0.0-0.4) X10*3/uL Baso # (Auto) (0.0-0.2) X10*3/uL Abs Immat Gran (auto) (0.00-0.03) X10*3/uL Absolute Neuts (auto) (2.0-8.3) x10*3/uL Absolute Nucleated RBC (0.0-0.012) X10*3/uL Nucleated RBC % (auto) (0.0-0.2) /100WBC Sodium (135-145) mmol/L Potassium (3.3-5.1) mmol/L Chloride (96-108) mmol/L Carbon Dioxide (22-29) mmol/L Anion Gap (12-20) BUN (9-16) mg/dL Creatinine (0.5-1.4) mg/dL Estim Creat Clear Calc Estimated GFR Random Glucose (60-115) mg/dL Calcium (8.4-10.2) mg/dL Magnesium (1.6-2.6) mg/dL Total Bilirubin (0.0-1.0) mg/dL AST (5-37) U/L ALT (0-40) U/L Alkaline Phosphatase (39-117) U/L Troponin I High Sens 31.2 (<3.5-35.0) ng/L B-Natriuretic Peptide (<100) pg/mL Total Protein (6.5-8.0) g/dL Albumin (3.5-5.0) g/dL COVID-19 (RIGOBERTO) Negative (Negative) COVID-19 Clin Com See Note Influenza Type A (PCR) NEGATIVE (Negative) Influenza Type B (PCR) NEGATIVE (Negative) RSV RNA Qual (PCR) NEGATIVE (Negative) SARS-CoV-2 RNA (RT-PCR) NEGATIVE (Negative) ECG Data Attestation: I personally reviewed and interpreted this ECG as follows: ECG interpretation date: 09/19/21 ECG interpretation time: 15:09 Prior ECG tracings: available for review Interpretation: EKG sinus bradycardia at a rate of 57 Discharge Plan Discharge Clinical Impression: Hypertension Qualifiers: Hypertension type: unspecified Qualified Code(s): I10 - Essential (primary) hypertension Dyspnea Qualifiers: Dyspnea type: shortness of breath Qualified Code(s): R06.02 - Shortness of breath Instructions: Dyspnea (ED), Hypertension (ED) Additional Instructions: your blood work is at your baseline today in the emergency department your head CT and chest x-ray were unremarkable you tested negative for COVID-19, the flu, and RSV please continue taking all home prescribed medications. Do not miss any doses monitor blood pressure closely, if it continues to be elevated, headache, vision changes, numbness/ tingling, chest pain or shortness of breath please return to the ED immediately carter an?lisis de nikky est? en carter l?dejan de base hoy en el departamento de emergencias carter tomograf?a computarizada de la lisa y la radiograf?a de t?rax no fueron notables charleen negativo para COVID-19, gripe y RSV por favor contin?e tomando todos los medicamentos recetados en casa. No te pierdas ninguna dosis Controle de cerca la presi?n arterial, si contin?a elevada, dolor de lisa, cambios en la visi?n, entumecimiento / hormigueo, dolor en el pecho o dificultad para respirar, regrese al servicio de urgencias de inmediato. Prescriptions: No Action Toujeo Max U-300 SoloStar 300 unit/mL (3 mL) insulin pen 60 unit subcut DAILY Qty: 6 RF: 4 insulin aspart U-100 [Novolog Flexpen U-100 Insulin] 100 unit/mL (3 mL) insulin pen See Rx Instructions subcut TID 30 Days Qty: 30 RF: 4 doxazosin 2 mg tablet 2 mg PO BID 30 Days Qty: 60 RF: 0 hydralazine 100 mg tablet 100 mg PO TID 30 Days Qty: 30 RF: 0 nifedipine 30 mg tablet extended release 120 mg PO QPM Qty: 30 RF: 0 torsemide 100 mg tablet 100 mg PO DAILY 30 Days Qty: 30 RF: 0 atorvastatin 80 mg Tablet 80 mg PO BEDTIME RF: 0 sertraline 100 mg Tablet 200 mg PO DAILY RF: 0 aspirin [Aspir-81] 81 mg Tablet,Delayed Release (Dr/Ec) 81 mg PO QAM RF: 0 fenofibrate nanocrystallized 145 mg Tablet 145 mg PO QPM RF: 0 gabapentin 600 mg Tablet 600 mg PO TID RF: 0 oxcarbazepine 300 mg Tablet 300 mg PO BID RF: 0 perphenazine 4 mg Tablet 4 mg PO BID RF: 0 cholecalciferol (vitamin D3) [Vitamin D3] 25 mcg (1,000 unit) Capsule 50 mcg PO DAILY RF: 0 carvedilol 25 mg Tablet 25 mg PO BID RF: 0 omeprazole 40 mg Capsule,Delayed Release(Dr/Ec) 40 mg PO DAILY@0630 Qty: 30 RF: 0 tramadol 50 mg tablet 2 tab PO Q8H PRN (Reason: Pain) RF: 0 zolpidem 10 mg tablet 1 tab PO BEDTIME RF: 0 Flovent HFA 220 mcg/actuation HFA aerosol inhaler 2 puff PO BID RF: 0 glucose [Dex4 Glucose] 4 gram tablet,chewable 16 g PO Q15M PRN (Reason: hypoglycemia) Qty: 30 RF: 6 Referrals: Nuvia Crook, [employer] [Primary Care Provider] - 2 days Print Language: Greek
[2021-09-19 15:49] LABS: Magnesium 2.1 mg/dL (1.6-2.6)
--- NOTE | 2021-09-19 15:55 | PC.NURSE ---
pt is speaking in full clear sentences, skin is wpd. pt has insp and exp wheezes throughout, denies chest discomfort at this time awaiting resp tx. lab xray and ekg resluts in expanse have been reviewed by wyatt Mallory.
[2021-09-19] MEDS: Albuterol/Iprat 2.5/0.5MG 3 ML AMPUL.NEB INHALE (15:57)
[2021-09-19 15:58] VITALS: PULSE 85; O2SAT 94
[2021-09-19 15:59] VITALS: BP 225/93; PULSE 64
[2021-09-19] MEDS: hydrALAZINE HCl 50 MG TABLET 100 MG PO (15:59)
[2021-09-19 16:34] LABS: Influenza A PCR NEGATIVE (Negative); Influenza B PCR NEGATIVE (Negative); Resp Syncy Virus RNA Qual PCR NEGATIVE (Negative); SARS COV2 PCR INHOUSE NEGATIVE (Negative)
[2021-09-19 17:30] LABS: Troponin-I High Sensitivity 31.2 ng/L (<3.5-35.0)
[2021-09-19 18:02] VITALS: BP 237/89; O2SAT 97
[2021-09-19] MEDS: Acetaminophen 325 MG TABLET 650 MG PO (18:03)
[2021-09-19] MEDS: Nitroglycerin 2 % Oint 1 GM Packet 1 INCH TRANSDERMA (18:04)
[2021-09-19 19:11] VITALS: BP 173/76; PULSE 59; RESP 16; O2SAT 96
[2021-09-19 19:49] LABS: Glucose, Whole Blood 112 mg/dL (60-115)
== END 2021-09-19 19:38 | disposition home or self-care (01) ==
PROVIDERS: Physician Assistant; Emergency Provider Internal Medicine; PCP Nurse Practitioner Primary Care
DX: R06.02 Shortness of breath (principal); E11.22 Type 2 diabetes mellitus with diabetic chronic kidney disease; I13.0 Hypertensive heart and chronic kidney disease with heart failure and stage 1 through stage 4 chronic kidney disease, or unspecified chronic kidney disease; N18.4 Chronic kidney disease, stage 4 (severe); I50.9 Heart failure, unspecified; Z79.82 Long term (current) use of aspirin; Z79.02 Long term (current) use of antithrombotics/antiplatelets; Z79.899 Other long term (current) drug therapy; Z79.4 Long term (current) use of insulin; Z20.822 Contact with and (suspected) exposure to COVID-19
CPT/HCPCS: 0241U; 36415; 70450; 71046; 80053; 82947; 83735; 83880; 84484; 85025; 87635; 93005; 94640; 99284

== ENCOUNTER 2021-09-25 05:57 | Day surgery (SDC) | payer OTHER, SELFPAY ==
[2021-09-14 14:53] VITALS: BMI 35.8
--- NOTE | 2021-09-20 09:16 | P.CONAN_ITS ---
Documented by User: Rebekah Cortes NP 09/20/21 09:22 HPI - Anesthesia Eval Consult details Narrative: 60yo M for Left AV Fistula Creation Stable at recent cardiac visit - no changes to regimen. Occasional WHARTON is unchanged. [facility] Active Problems Active Problems: All Active Problems (Updated 09/20/21 @ 00:03 by Background Daemon) Type 2 diabetes mellitus with unspecified complications (Acute) Diastolic dysfunction (Acute) Essential hypertension (Acute) Duodenal ulcer disease (Acute) Varicose veins of right lower extremity with inflammation (Acute) PAD (peripheral artery disease) (Acute) Hypertensive urgency (Acute) Acute kidney injury superimposed on chronic kidney disease (Acute) CHF (congestive heart failure) (Acute) Chronic kidney disease, stage 4 (severe) (Acute) Diabetes mellitus with hyperglycemia, with long-term current use of insulin (Acute) Past Medical History Medical History (Updated 09/20/21 @ 00:03 by Background Daemon) Abnormal biopsy of kidney Anxiety Asthma CHF (congestive heart failure) Chronic kidney disease, stage 4 (severe) COPD (chronic obstructive pulmonary disease) Depression Depression with anxiety Diabetes mellitus with hyperglycemia, with long-term current use of insulin Diverticulitis Elevated cholesterol Erectile dysfunction History of alcohol abuse History of headache HTN (hypertension) Hx of pancreatitis Hyperglycemia Hypertension Hypertensive crisis Hypertriglyceridemia On beta doron at home Pancreatitis Peptic ulcer Proteinuria Sleep apnea Type 2 diabetes mellitus with chronic kidney disease Type 2 diabetes mellitus with hyperglycemia, with long-term current use of insulin Type 2 diabetes mellitus with polyneuropathy Family History Family History Mother Diabetes Surgical History Surgical History History of surgery Hx of colonoscopy Hx of right inguinal hernia repair Social History Social History (Updated 09/14/21 @ 14:55 by Wilda Mccrary RN) Household Members: None Housing: Apartment Are you a primary care transitions nurse to a significant other at home: No Do you presently have visiting nurse or other home services: Yes Alcohol intake: never Patient Tobacco Use Status: Former Tobacco user Quit Date: 2017 Tobacco use type: Cigarette Years Smoked: 30 Second Hand Smoke Exposure: Yes Use of substances other than those prescribed or required for medical reasons: No Have you been hit, kicked, punched, or otherwise hurt by someone within the past year? If so, by whom?: No Are you DNR?: No Advance Directives Information Provided: Yes (informational brochure mailed) Advance Directives on File: No Recently lost weight without trying: No Eating poorly because of decreased appetite: No Nutrition Risks: No Nutritional Risk service: No Current occupational status: retired Meds Allergies Allergy/AdvReac Type Severity Reaction Status Date / Time No Known Allergies Allergy Verified 09/19/21 12:14 Home Medications Medication Instructions Recorded Confirmed Last Taken Type aspirin 81 mg tablet,delayed 81 mg PO QAM 07/25/20 09/25/21 09/25/21 History release (Aspir-) atorvastatin 80 mg tablet 80 mg PO BEDTIME 07/25/20 09/18/21 02/02/21 History carvedilol 25 mg tablet 25 mg PO BID 07/25/20 09/18/21 02/02/21 History cholecalciferol (vitamin D3) 25 50 mcg PO DAILY 07/25/20 09/18/21 02/02/21 History mcg (1,000 unit) capsule (Vitamin D3) fenofibrate nanocrystallized 145 145 mg PO QPM 07/25/20 09/18/21 02/02/21 History mg tablet gabapentin 600 mg tablet 600 mg PO TID 07/25/20 09/18/21 02/02/21 History oxcarbazepine 300 mg tablet 300 mg PO BID 07/25/20 09/18/21 02/02/21 History perphenazine 4 mg tablet 4 mg PO BID 07/25/20 09/18/21 02/02/21 History sertraline 100 mg tablet 200 mg PO DAILY 07/25/20 09/18/21 02/02/21 History tramadol 50 mg tablet 2 tab PO Q8H PRN 01/23/21 09/18/21 02/02/21 History zolpidem 10 mg tablet 1 tab PO BEDTIME 01/23/21 09/18/21 02/02/21 History fluticasone propionate 220 2 puff PO BID 08/18/21 09/18/21 Unknown History mcg/actuation HFA aerosol inhaler (Flovent HFA) blood sugar diagnostic (FreeStyle #10 ea 08/31/21 Unknown History Lite Strips) insulin glargine U-300 conc 300 60 unit SUBCUT DAILY 11/09/25/21 09/24/21 History unit/mL (3 mL) subcutaneous pen (Toujeo Max U-300 SoloStar) Exam Exam Date and Time: September 20, 2021 0916 Height,Weight and Vital Signs: Height 5 ft 11 in Weight 116.573 kg Pertinent Lab Results Pertinent Lab Results: Laboratory Tests 09/19/21 09/19/21 13:38 13:38 WBC 6.0 Hgb 10.0 L Hct 28.8 L Plt Count 159 L Sodium 142 Potassium 3.6 Chloride 106 Carbon Dioxide 25 BUN 50 H Creatinine 4.26 H* Narrative Narrative: EKG 08/2021 Vent. Rate : 057 BPM ? ? Atrial Rate : 057 BPM ?? P-R Int : 184 ms? QRS Dur : 122 ms ? ? QT Int : 454 ms ? ? ? P-R-T Axes : 047 -50 -25 degrees ?? QTc Int : 441 ms ? Sinus bradycardia Left anterior fascicular block Left ventricular hypertrophy with QRS widening ( R in aVL , [place] product ) Nonspecific ST and T wave abnormality Abnormal ECG When compared with ECG of 18-AUG-2021 20:06, ST now depressed in Inferior leads ST no longer depressed in Lateral leads T wave inversion now evident in Inferior leads T wave inversion less evident in Lateral leads ECHO 07/2021 Conclusions: - Normal left ventricular size and systolic function. There is ? severely increased left ventricular wall thickness.? The visually estimated ejection fraction is between 65-70%. ? - Normal right ventricular cavity size and systolic function.? ? - The left atrium is moderately dilated. ? - There is mild dilatation of the ascending aorta. ? Myocardial perfusion imaging study from 2019 shows normal perfusion.?(Per 08/2021 cardiology appt) Assessment and Plan Assessment Anesthesia Assessment: Chart Reviewed Documented by User: Mariana Apple MD 09/25/21 07:24 [facility] Past Medical History Medical History (Updated 09/20/21 @ 00:03 by Pamella Sesay) Abnormal biopsy of kidney Anxiety Asthma CHF (congestive heart failure) Chronic kidney disease, stage 4 (severe) COPD (chronic obstructive pulmonary disease) Depression Depression with anxiety Diabetes mellitus with hyperglycemia, with long-term current use of insulin Diverticulitis Elevated cholesterol Erectile dysfunction History of alcohol abuse History of headache HTN (hypertension) Hx of pancreatitis Hyperglycemia Hypertension Hypertensive crisis Hypertriglyceridemia On beta doron at home Pancreatitis Peptic ulcer Proteinuria Sleep apnea Type 2 diabetes mellitus with chronic kidney disease Type 2 diabetes mellitus with hyperglycemia, with long-term current use of insulin Type 2 diabetes mellitus with polyneuropathy Family History Family History Mother Diabetes Surgical History Surgical History History of surgery Hx of colonoscopy Hx of right inguinal hernia repair Social History Social History (Updated 09/14/21 @ 14:55 by Wilda Mccrary RN) Household Members: None Housing: Apartment Are you a primary care transitions nurse to a significant other at home: No Do you presently have visiting nurse or other home services: Yes Alcohol intake: never Patient Tobacco Use Status: Former Tobacco user Quit Date: 2017 Tobacco use type: Cigarette Years Smoked: 30 Second Hand Smoke Exposure: Yes Use of substances other than those prescribed or required for medical reasons: No Have you been hit, kicked, punched, or otherwise hurt by someone within the past year? If so, by whom?: No Are you DNR?: No Advance Directives Information Provided: Yes (informational brochure mailed) Advance Directives on File: No Recently lost weight without trying: No Eating poorly because of decreased appetite: No Nutrition Risks: No Nutritional Risk service: No Current occupational status: retired [employer] Allergies Allergy/AdvReac Type Severity Reaction Status Date / Time No Known Allergies Allergy Verified 09/19/21 12:14 Home Medications Medication Instructions Recorded Confirmed Last Taken Type aspirin 81 mg tablet,delayed 81 mg PO QAM 07/25/20 09/25/21 09/25/21 History release (Aspir-) atorvastatin 80 mg tablet 80 mg PO BEDTIME 07/25/20 09/18/21 02/02/21 History carvedilol 25 mg tablet 25 mg PO BID 07/25/20 09/18/21 02/02/21 History cholecalciferol (vitamin D3) 25 50 mcg PO DAILY 07/25/20 09/18/21 02/02/21 History mcg (1,000 unit) capsule (Vitamin D3) fenofibrate nanocrystallized 145 145 mg PO QPM 07/25/20 09/18/21 02/02/21 History mg tablet gabapentin 600 mg tablet 600 mg PO TID 07/25/20 09/18/21 02/02/21 History oxcarbazepine 300 mg tablet 300 mg PO BID 07/25/20 09/18/21 02/02/21 History perphenazine 4 mg tablet 4 mg PO BID 07/25/20 09/18/21 02/02/21 History sertraline 100 mg tablet 200 mg PO DAILY 07/25/20 09/18/21 02/02/21 History tramadol 50 mg tablet 2 tab PO Q8H PRN 01/23/21 09/18/21 02/02/21 History zolpidem 10 mg tablet 1 tab PO BEDTIME 01/23/21 09/18/21 02/02/21 History fluticasone propionate 220 2 puff PO BID 08/18/21 09/18/21 Unknown History mcg/actuation HFA aerosol inhaler (Flovent HFA) blood sugar diagnostic (FreeStyle #10 ea 08/31/21 Unknown History Lite Strips) insulin glargine U-300 conc 300 60 unit SUBCUT DAILY 09/25/21 09/25/21 09/24/21 History unit/mL (3 mL) subcutaneous pen (Toujeo Max U-300 SoloStar) Exam Airway Mallampati Class: IV TM Dist: >3cm Neck ROM: Full
[2021-09-25 06:04] VITALS: BP 152/62; PULSE 63; RESP 18; TEMP 36.6; O2SAT 95
[2021-09-25 06:24] LABS: Glucose, Whole Blood 150 mg/dL (60-115)
[2021-09-25 06:28] LABS: Hematocrit 30.4 % (42.0-52.0); Hemoglobin 9.5 g/dl (14.0-18.0); Mean Corpuscular HGB Conc 31.3 g/dl (31.0-36.0); Mean Corpuscular Hemoglobin 31.9 pg (27.0-33.0); Red Blood Count 2.98 X10*6/uL (4.60-5.80); Red Cell Distribution Width 12.8 % (11.0-16.0)
[2021-09-25 06:34] LABS: Platelet Count 96 X10*3/uL (160-400)
[2021-09-25] MEDS: 0.9 % Sodium Chloride 1,000 ML 50 ML IVCONT (06:38)
[2021-09-25 06:53] LABS: INTERNATIONAL NORM RATIO 0.9 (0.9-1.1); Prothrombin Time 10.6 SEC (9.9-13.0)
[2021-09-25 06:55] LABS: Anion Gap 15 (12-20); Blood Urea Nitrogen 61 mg/dL (9-16); Calcium 7.8 mg/dL (8.4-10.2); Carbon Dioxide 26 mmol/L (22-29); Chloride 102 mmol/L (96-108); Creatinine Clr Calc Pharmacy 22.1; Estimated Glomerular Filt Rate 13; Glucose Random 153 mg/dL (60-115); Potassium 3.4 mmol/L (3.3-5.1); Sodium 140 mmol/L (135-145)
--- NOTE | 2021-09-25 07:39 | MHC.SHP ---
Pre-Procedural Eval Section A Date of Service: 09/25/21 The patient is an INPATIENT: No The History & Physical has been completed within 30 days and I have reviewed it.: Yes Section B Chief Complaint: Chronic Kidney Disease Stage 4 Allergies: Allergies Allergy/AdvReac Type Severity Reaction Status Date / Time No Known Allergies Allergy Verified 09/19/21 12:14 Plan I have reviewed the history and physical and performed a pertinent physical examination on my patient. No changes have occurred unless specified.
[2021-09-25 09:56] VITALS: BP 142/56; PULSE 75; RESP 14; TEMP 36.1; O2SAT 99
--- NOTE | 2021-09-25 09:58 | P.OP_ITS ---
Operative Note Operative Note Date of Service: 09/25/21 Narrative: Operative note by [facility] Preoperative diagnosis:Chronic renal insufficiency Postoperative diagnosis:Same Procedure:Left upper extremity brachiocephalic fistula creation Surgeon:Jayjay Dawson M.D. Slab Stripper: chicho Anesthesia: general Specimens: none Drains: none Estimated blood loss: 100 mL Indications: 61-year-old diabetic gentleman who has end-stage renal disease now presents for permanent dialysis access. He is currently not on dialysis. This is in preparation for future dialysis. He actually was in the hospital recently for acute kidney injury superimposed on chronic kidney disease. He had a bedside ultrasound performed in the office. He now presents for fistula creation.The patient has signed the informed consent after reviewing risks, complications, benefits, and alternatives previously discussed with the patient. The patient was given the opportunity to ask any additional questions or voice any concerns. All questions were answered to the patient's satisfaction. Procedure in detail: Patient was brought to the operating room prior to which a time-out was called for patient identification and site verification. Left upper extremity was prepped and draped in the standard surgical fashion. The artery and vein was marked out with ultrasound prior to draping. A transverse incision was made just above the antecubital fossa approximately 2 finger breaths above. We were easily able to identify the cephalic vein. The brachial artery was also easily identified and isolated with silastic loops as well. At this time 3000 units of systemic heparin was administered. After 5 minutes of circulation time the cephalic vein was ligated at its most distal edge. This was then tied off with a 3-0 silk tie. Also a 3-0 silk suture ligature had to be placed. Once this was accomplished we tied off the side branches in the cephalic vein. We then brought the cephalic vein over to the brachial artery. We then occluded the brachial artery with the sella stick loops on tension. Arteriotomy was made with an 11 blade and Adams scissor. We then anastomosed the cephalic vein after it was trimmed using a 6 0 Prolene in a circumferential manner. Prior to closure all vessels were flushed clear. Vessel was then closed and tied. Adequate hemostasis was achieved. At this point we were able to have pulsatile flow and it did eventually turned into a thrill. Once this was all accomplished and adequate hemostasis was achieved deep layer was reapproximated with interrupted 2 0 poly Sorb. Superficial layer with 3-0 poly sore. Finally skin was closed with a 4-0 Monocryl. Exofin was used as a sterile dressing. Patient had a palpable radial and ulnar pulse at the conclusion of the case And thrill on the fistula. This note is constructed using voice recognition software. While every effort has been made to ensure accuracy, metal spray operator errors may have been included. Thank you for allowing me to participate in the care of your patient. Yours sincerely, Jayjay Dawson MD, FACS, R.P.V.I.
[2021-09-25 10:00] VITALS: BP 131/62; PULSE 74; RESP 16; O2SAT 95
[2021-09-25 10:05] VITALS: BP 127/61; PULSE 75; RESP 16; O2SAT 95
[2021-09-25 10:10] VITALS: BP 120/60; PULSE 72; RESP 16; O2SAT 95
[2021-09-25 10:25] VITALS: BP 132/57; PULSE 71; RESP 16; TEMP 36.1; O2SAT 95
== END 2021-09-25 11:26 | disposition home or self-care (01) ==
PROVIDERS: PCP Nurse Practitioner Primary Care; Visit Provider Surgery Vascular Surgery
PROC: (CPT 36821; principal; 2021-09-25 07:30)
DX: I13.0 Hypertensive heart and chronic kidney disease with heart failure and stage 1 through stage 4 chronic kidney disease, or unspecified chronic kidney disease (principal); E11.22 Type 2 diabetes mellitus with diabetic chronic kidney disease; N18.4 Chronic kidney disease, stage 4 (severe); I50.9 Heart failure, unspecified; E11.65 Type 2 diabetes mellitus with hyperglycemia; E11.42 Type 2 diabetes mellitus with diabetic polyneuropathy; G47.33 Obstructive sleep apnea (adult) (pediatric); Z79.4 Long term (current) use of insulin; F32.89 Other specified depressive episodes; Z87.891 Personal history of nicotine dependence; Z99.89 Dependence on other enabling machines and devices
CPT/HCPCS: 36821; 36415; 80048; 82947; 85027; 85610; 85730; J0690; J1100; J2250; J2405; J3010

== ENCOUNTER → 2021-10-09 10:03 | Outpatient (BNVA) | payer OTHER, SELFPAY | PROVIDERS: PCP Nurse Practitioner Primary Care; Visit Provider Nurse Practitioner Gerontology | DX: E11.42 Type 2 diabetes mellitus with diabetic polyneuropathy (principal); E78.1 Pure hyperglyceridemia; I10 Essential (primary) hypertension | CPT/HCPCS: 82947; 83036; 99212 ==

== ENCOUNTER 2021-10-11 03:00 | Inpatient (IN) | payer OTHER, SELFPAY ==
[2021-10-11] VITALS (14 sets, daily range): BP systolic 155–215; BP diastolic 48–77; PULSE 60–73; RESP 16–20; TEMP 36.6–36.8; O2SAT 94–97
--- NOTE | ~2021-10-11 | XR_ITS ---
EXAMINATION: XR CHEST CLINICAL INFORMATION: Cough COMPARISON: Chest x-ray 09/19/2021 TECHNIQUE: 2 views of the chest were obtained. FINDINGS: Cardiac silhouette is normal in size. The lungs are adequately aerated. Subtle bibasilar patchy opacities. No gross lobar consolidation. No pleural effusion or pneumothorax. Moderate degenerative changes of the spine. XR/XR chest 2V IMPRESSION: Subtle bibasilar patchy opacities. Findings may represent atelectasis, however, viral infiltrate would also be within the differential in the correct clinical setting.
[2021-10-11] MEDS: Albuterol/Iprat 2.5/0.5MG 3 ML AMPUL.NEB 12 ML INHALE (03:30)
[2021-10-11 05:49] LABS: COVID-19 Test Negative (Negative)
[2021-10-11 05:51] LABS: Anion Gap 17 (12-20); Blood Urea Nitrogen 54 mg/dL (9-16); Calcium 7.8 mg/dL (8.4-10.2); Carbon Dioxide 25 mmol/L (22-29); Chloride 103 mmol/L (96-108); Estimated Glomerular Filt Rate 14; Glucose Random 103 mg/dL (60-115); Potassium 3.5 mmol/L (3.3-5.1); Sodium 141 mmol/L (135-145)
[2021-10-11 05:58] LABS: VBG Base Excess 7.5 mmol/L; VBG HCO3 30 mmol/L (22-26); VBG pCO2 35 mmHg; VBG pH 7.53 (7.32-7.43); VBG pO2 211 mmHg; Venous Blood Gas Refer to POC result
[2021-10-11 06:05] LABS: B Type Natriuretic Peptide 372 pg/mL (<100)
--- NOTE | 2021-10-11 07:57 | ECG_ITS ---
Test Reason : sob Blood Pressure : / mmHG Vent. Rate : 068 BPM Atrial Rate : 068 BPM P-R Int : 188 ms QRS Dur : 122 ms QT Int : 452 ms P-R-T Axes : 027 -37 046 degrees QTc Int : 480 ms Normal sinus rhythm Left anterior fascicular block Left ventricular hypertrophy with QRS widening ( R in aVL , [place] product ) Abnormal ECG When compared to the previous EKG of No significant changes seen Referred By: Vilma Shahid Electronically Signed By:CHARITO DIAZ MD
[2021-10-11] MEDS: Furosemide 100 MG/10 ML VIAL 80 MG IVPUSH (08:31)
[2021-10-11 08:36] LABS: Basophils Percent Auto 0.3 % (0-2); Eosinophils Absolute Auto 0.3 X10*3/uL (0.0-0.4); Eosinophils Percent Auto 4.1 % (0-4); Hematocrit 27.4 % (42.0-52.0); Hemoglobin 9.2 g/dl (14.0-18.0); Imm Gran Abs Auto 0.03 X10*3/uL (0.00-0.03); Imm Gran Pct Auto 0.4 % (0.0-0.4); MANUAL DIFF FLAG NO; Mean Corpuscular HGB Conc 33.6 g/dl (31.0-36.0); Mean Corpuscular Hemoglobin 30.5 pg (27.0-33.0); Mean Corpuscular Volume 90.7 fL (80.0-98.0); Mean Platelet Volume 11.4 fL (9.4-12.4); Monocytes Absolute Auto 0.5 X10*3/uL (0.1-1.2); Monocytes Percent Auto 6.4 % (2-11); Neutrophils Absolute Auto 5.3 x10*3/uL (2.0-8.3); Neutrophils Percent Auto 74.8 % (45-73); Platelet Count 145 X10*3/uL (160-400); Red Blood Count 3.02 X10*6/uL (4.60-5.80); Red Cell Distribution Width 13.6 % (11.0-16.0); White Blood Count 7.1 X10*3/uL (4.8-10.8)
--- NOTE | 2021-10-11 08:56 | PM.IMHP ---
History of Present Illness Date of Service: 10/11/21 Chief Complaint: shortness of breath This is a 61 yo M with a PMH of CKD5, HFpEF, Uncontrolled HTN, BRENDA, COPD/Asthma who presents to the ED with complaints of shortness of breath and worsening orthopnea over the last 2-3 days. He reports that he began feeling shortness of breath with exertion and this has now progressed to SOB with minimal movement. He also endorses orthopnea and is unable to sleep supine. He reports a cough in the supine position, but otherwise no cough. He reports that he does not check his weight, so he unsure if he has gained any weight. He reports that his LE edema is stable. He denies any anginal chest pain. Upon arrival to the ED, patient was noted to be in visible respiratory distress. He was given a continuous updraft (1 hour long) as well as total IV lasix 80mg. His work up showed an elevated BNP (baseline usually within normal range or low 100s -- now 372). A CXR showed pulmonary edema. He had minimal improvement and now will be admitted for further treatment. Review of Systems Review of Systems: negative except HPI [facility] Medical History Abnormal biopsy of kidney Anxiety Asthma CHF (congestive heart failure) Chronic kidney disease, stage 4 (severe) COPD (chronic obstructive pulmonary disease) Depression Depression with anxiety Diabetes mellitus with hyperglycemia, with long-term current use of insulin Diverticulitis Elevated cholesterol Erectile dysfunction History of alcohol abuse History of headache HTN (hypertension) Hx of pancreatitis Hyperglycemia Hypertension Hypertensive crisis Hypertriglyceridemia On beta doron at home Pancreatitis Peptic ulcer Proteinuria Sleep apnea Type 2 diabetes mellitus with chronic kidney disease Type 2 diabetes mellitus with hyperglycemia, with long-term current use of insulin Type 2 diabetes mellitus with polyneuropathy Family History Mother Diabetes Surgical History History of surgery Hx of colonoscopy Hx of right inguinal hernia repair Social History Household Members: None Housing: Apartment Are you a primary emergency care tech to a significant other at home: No Do you presently have visiting nurse or other home services: Yes Alcohol intake: never Patient Tobacco Use Status: Former Tobacco user Quit Date: 2017 Tobacco use type: Cigarette Years Smoked: 30 Second Hand Smoke Exposure: Yes Advance Directives: No Advance Directives Information Provided: No service: No Current occupational status: retired Meds Allergies Allergy/AdvReac Type Severity Reaction Status Date / Time No Known Allergies Allergy Verified 10/09/21 10:29 Active Medications: Current Medications Pharmacy Consult (Consult Rx Perform Med Rec) 1 each MISCELLANE ONCE STA Stop: 10/11/21 07:36 Home Medications Medication Instructions Recorded Confirmed Last Taken Type aspirin 81 mg tablet,delayed 81 mg PO QAM 07/25/20 10/11/21 10/10/21 History release (Aspir-) atorvastatin 80 mg tablet 80 mg PO BEDTIME 07/25/20 10/11/21 10/09/21 History carvedilol 25 mg tablet 25 mg PO BID 07/25/20 10/11/21 10/10/21 History gabapentin 600 mg tablet 600 mg PO BEDTIME 07/25/20 10/11/21 10/09/21 History oxcarbazepine 300 mg tablet 300 mg PO BID 07/25/20 10/09/21 02/02/21 History perphenazine 4 mg tablet 4 mg PO BID 07/25/20 10/09/21 02/02/21 History sertraline 100 mg tablet 200 mg PO DAILY 07/25/20 10/09/21 02/02/21 History tramadol 50 mg tablet 2 tab PO Q8H PRN 01/23/21 10/09/21 02/02/21 History zolpidem 10 mg tablet 1 tab PO BEDTIME 01/23/21 10/09/21 02/02/21 History fluticasone propionate 220 2 puff PO BID 08/18/21 10/11/21 10/10/21 History mcg/actuation HFA aerosol inhaler (Flovent HFA) blood sugar diagnostic (FreeStyle #10 ea 08/31/21 10/09/21 Unknown History Lite Strips) insulin glargine U-300 conc 300 60 unit SUBCUT DAILY 09/25/21 10/09/21 09/24/21 History unit/mL (3 mL) subcutaneous pen (Toujeo Max U-300 SoloStar) albuterol sulfate 90 mcg/actuation 2 puff PO Q4H PRN 10/09/21 10/11/21 10/10/21 History aerosol inhaler (Ventolin HFA) cholecalciferol (vitamin D3) 25 50 mcg PO DAILY 10/09/21 10/11/21 10/10/21 History mcg (1,000 unit) tablet nifedipine 30 mg tablet,extended 90 mg PO QPM tab 10/09/21 10/09/21 Unknown History release tadalafil 10 mg tablet (Cialis) 10 mg PO DAILY PRN 10/09/21 10/09/21 Unknown History Physical Exam Vital Signs and Narrative: Vital Signs: Last Vital Signs Temp 97.8 F 10/11/21 06:32 Pulse 60 10/11/21 06:32 Resp 18 10/11/21 06:32 BP 158/53 H 10/11/21 06:32 Pulse Ox 97 10/11/21 06:32 Const: Other: Constitutional - Awake and Alert, in mild respiratory distress Eyes - PERRLA, EOMI Cardiovascular - S1S2, unable to assess JVD due to body habitus; 1+ pitting edema b/l Respiratory - mild tachypnea, rales at bases Gastrointestinal - NT / ND; +BS; No rebound or guarding - No CVA tenderness Extremities - no calf tenderness bilaterally; LUE +swelling, AV fistula with +thrill/bruit Musculoskeletal - Normal inspection, normal ROM Skin - Warm/Dry Neurological - Alert & oriented x3, No focal deficit Psychological - Appropriate affect Results Labs CBC and Chem 7: 10/11/21 03:55 10/11/21 03:55 Labs: Laboratory Results - last 24 hr 10/11/21 10/11/21 10/11/21 03:42 03:55 03:55 MCV MCH MCHC RDW Plt Count MPV Immature Gran % (Auto) Neut % (Auto) Lymph % (Auto) [place] % (Auto) Eos % (Auto) Baso % (Auto) Lymph # (Auto) [place] # (Auto) Eos # (Auto) Baso # (Auto) Abs Immat Gran (auto) Absolute Neuts (auto) Absolute Nucleated RBC Nucleated RBC % (auto) VBG pH VBG pCO2 VBG pO2 VBG HCO3 VBG O2 Saturation VBG Base Excess Anion Gap 17 Estim Creat Clear Calc TNP Estimated GFR 14 Random Glucose 103 Calcium 7.8 L B-Natriuretic Peptide 372 H COVID-19 (RIGOBERTO) Negative COVID-19 Clin Com See Note 10/11/21 10/11/21 10/11/21 03:55 03:55 03:55 MCV Cancelled 90.7 MCH Cancelled 30.5 MCHC Cancelled 33.6 RDW Cancelled 13.6 Plt Count Cancelled 145 L D MPV Cancelled 11.4 Immature Gran % (Auto) Cancelled 0.4 Neut % (Auto) Cancelled 74.8 H Lymph % (Auto) Cancelled 14.0 L [place] % (Auto) Cancelled 6.4 Eos % (Auto) Cancelled 4.1 H Baso % (Auto) Cancelled 0.3 Lymph # (Auto) Cancelled 1.0 L [place] # (Auto) Cancelled 0.5 Eos # (Auto) Cancelled 0.3 Baso # (Auto) Cancelled 0.0 Abs Immat Gran (auto) Cancelled 0.03 Absolute Neuts (auto) Cancelled 5.3 Absolute Nucleated RBC Cancelled 0.000 Nucleated RBC % (auto) Cancelled 0.0 VBG pH 7.53 H VBG pCO2 35 VBG pO2 211 VBG HCO3 30 H VBG O2 Saturation 100.0 VBG Base Excess 7.5 Anion Gap Estim Creat Clear Calc Estimated GFR Random Glucose Calcium B-Natriuretic Peptide COVID-19 (RIGOBERTO) COVID-19 Clin Com Assessment and Plan (1) Acute on chronic heart failure with preserved ejection fraction (HFpEF): Status: Acute This is a 61 yo M with a PMH of HFpEF, CKD5 (recent LUE AV fistula created), HTN, who presents to [facility] ED with complaints of progressive shortness of breath over the last 2-3 days prior to arrival. His presentation and work up are consistent with acute exacerbation of his chronic HFpEF. 1. Acute on Chronic HFpEF Recevied total 80mg IV lasix in the ED will continue IV 80mg BID I/O 2. CKD stage 5 will consult nephrology to guide diuretic use 3. Uncontrolled HTN 185 systolic this AM start his home meds and titrate as needed 4. DM continue baseline meds once med rec completed 5. Mood continue baseilne meds 6. PUD PPI 7. HLD statin 8. BRENDA CPAP Full Code DVT pptx, Subcut. heparin Quality Stroke Does the patient have a stroke diagnosis?: No VTE Prior VTE?: No VTE Risk Level:: Medical - moderate - high VTE Device Contraindication: Treatment Not Indicated VTE Drug Contraindication: N/A - Med Ordered
[2021-10-11 09:17] LABS: VBG Base Excess 7.5 mmol/L; VBG HCO3 30 mmol/L (22-26); VBG pCO2 35 mmHg; VBG pH 7.53 (7.32-7.43); VBG pO2 211 mmHg
--- NOTE | 2021-10-11 09:57 | PHA.MEDREC ---
Pharmacy Consult ? Medication Reconciliation Pharmacy has completed the medication reconciliation.
[2021-10-11] MEDS: carvediloL 25 MG TABLET PO ×2 (11:28→20:17)
[2021-10-11] MEDS: OXcarbazepine 300 MG TABLET PO ×2 (11:28→20:17)
[2021-10-11] MEDS: Heparin Sodium,Porcine 5,000 UNIT/ML VIAL 5000 UNIT SUBCUT ×2 (11:29→20:16)
[2021-10-11] MEDS: Perphenazine 4 MG TABLET PO ×2 (11:29→21:16)
[2021-10-11] MEDS: Aspirin Enteric Coated 81 MG TABLET.DR PO (11:29)
[2021-10-11] MEDS: Sertraline HCL 100 MG TABLET 200 MG PO (11:29)
[2021-10-11] MEDS: Doxazosin Mesylate 2 MG TABLET PO ×2 (11:32→20:17)
[2021-10-11] MEDS: Furosemide 200 MG in 0.9 % Sodium Chloride 80 ML IVCONT (12:35)
--- NOTE | 2021-10-11 12:42 | PC.NURSE ---
Addendum entered by Renetta Marie 10/11/21 12:44: SOME PEDING EDEMA IN BOTH OF THE LOWER EXTREMITIES ABOUT +1 Original Note: PT ALERT AND ORIENTED, SKIN APPROPRIATE FOR ETHNICITY, RESPIRATIONS EVEN AND UNLABORED, LS DIMINISHED, PT REPORTS FEELING SLIGHT SOB AND A HEADACHE TEMPORAL AREA, PAIN AT 6/10, NS ON THE MONITOR, SATING AT 96% ON ROOM AIR LASIX DRIP STARTED AT 10MG/H PT VOIDED 375ML OF YELLOW URINE
[2021-10-11 12:50] LABS: Glucose, Whole Blood 115 mg/dL (60-115)
[2021-10-11] MEDS: hydrALAZINE HCl 50 MG TABLET 100 MG PO ×2 (15:26→20:16)
--- NOTE | 2021-10-11 16:47 | P.CONNP_ITS ---
History of Present Illness Reason for Consult Consult date: 10/11/21 Chief Complaint Chief complaint: Shortness of breath History of Present Illness Narrative: 61 yo M with CKD5, HTN presented to the ER with complaints of shortness of breath and worsening orthopnea over the last 2-3 days. He has orthopnea but no PND. He does not check his weight, so he unsure if he has gained any weight. He thinks his LE edema is stable. He denies any chest pain. In the ED, patient was noted to be in visible respiratory distress. He was given a continuous updraft (1 hour long) as well as total IV lasix 80mg. His work up showed an elevated BNP (baseline usually within normal range or low 100s -- now 372). A CXR showed pulmonary edema. His serum creatinine is 4.32. He is getting admitted for further management. Nephrology has been consulted to assist in his clinical care during his current hospital stay. Review of Systems Review of Systems Yes all other systems are reviewed and are negative PMFSH Past Medical History Medical History Abnormal biopsy of kidney Anxiety Asthma CHF (congestive heart failure) Chronic kidney disease, stage 4 (severe) COPD (chronic obstructive pulmonary disease) Depression Depression with anxiety Diabetes mellitus with hyperglycemia, with long-term current use of insulin Diverticulitis Elevated cholesterol Erectile dysfunction History of alcohol abuse History of headache HTN (hypertension) Hx of pancreatitis Hyperglycemia Hypertension Hypertensive crisis Hypertriglyceridemia On beta doron at home Pancreatitis Peptic ulcer Proteinuria Sleep apnea Type 2 diabetes mellitus with chronic kidney disease Type 2 diabetes mellitus with hyperglycemia, with long-term current use of insulin Type 2 diabetes mellitus with polyneuropathy Family History Family History Mother Diabetes Surgical History Surgical History History of surgery Hx of colonoscopy Hx of right inguinal hernia repair Social History Social History Household Members: None Housing: Apartment Are you a primary care aid to a significant other at home: No Do you presently have visiting nurse or other home services: Yes Alcohol intake: never Patient Tobacco Use Status: Former Tobacco user Quit Date: 2017 Tobacco use type: Cigarette Years Smoked: 30 Second Hand Smoke Exposure: Yes Advance Directives: No Advance Directives Information Provided: No service: No Current occupational status: retired Meds Allergies Allergy/AdvReac Type Severity Reaction Status Date / Time No Known Allergies Allergy Verified 10/09/21 10:29 Active Medications: Current Medications Acetaminophen (Acetaminophen 325 Mg Tablet) 650 mg PO Q6H PRN PRN Reason: Pain, Mild (Pain Scale 1-3) Aspirin (Aspirin Enteric Coated 81 Mg Tablet.Dr) 81 mg PO DAILY [facility] Last Admin: 10/11/21 11:29 Dose: 81 mg Documented by: Atorvastatin Calcium (Atorvastatin Calcium 80 Mg Tablet) 80 mg PO BEDTIME THAO Carvedilol (Carvedilol 25 Mg Tablet) 25 mg PO BID [facility]; Protocol Last Admin: 10/11/21 11:28 Dose: 25 mg Documented by: Doxazosin Mesylate (Doxazosin Mesylate 2 Mg Tablet) 2 mg PO BID [facility]; Protocol Last Admin: 10/11/21 11:32 Dose: 2 mg Documented by: Fluticasone Propionate (Fluticasone Propionate 250 Mcg Blst.W.Dev) 2 puff INHALE RBID [facility] Gabapentin (Gabapentin 600 Mg Tablet) 600 mg PO BEDTIME [facility] Heparin Sodium (Porcine) (Heparin Sodium,Porcine 5,000 Unit/Ml Vial) 5,000 unit SUBCUT Q12H [facility] Last Admin: 10/11/21 11:29 Dose: 5,000 unit Documented by: Hydralazine HCl (Hydralazine Hcl 50 Mg Tablet) 100 mg PO TID [facility]; Protocol Last Admin: 10/11/21 15:26 Dose: 100 mg Documented by: Furosemide 200 mg/ Sodium (Chloride) 100 mls @ 5 mls/hr IVCONT .Q20H [facility] Last Admin: 10/11/21 12:35 Dose: 10 mg/hr, 5 mls/hr Documented by: Insulin Glargine (Insulin Glargine,Hum.Rec.Anlog 100 Unit/Ml 10 Ml Vial) 60 unit SUBCUT BEDTIME [facility] Insulin Human Lispro (Insulin Lispro 100 Unit/Ml 3 Ml Vial) 0 unit SUBCUT QIDACHS [facility]; Protocol Last Admin: 10/11/21 12:35 Dose: Not Given Documented by: Nifedipine (Nifedipine Er 60 Mg Tab.Er.24) 120 mg PO BEDTIME [facility] Ondansetron HCl (Ondansetron Hcl 4 Mg/2 Ml Vial) 4 mg IVPUSH Q8H PRN PRN Reason: Nausea and Vomiting Oxcarbazepine (Oxcarbazepine 300 Mg Tablet) 300 mg PO BID [facility] Last Admin: 10/11/21 11:28 Dose: 300 mg Documented by: Perphenazine (Perphenazine 4 Mg Tablet) 4 mg PO BID [facility] Last Admin: 10/11/21 11:29 Dose: 4 mg Documented by: Pharmacy Consult (Consult Rx Perform Med Rec) 1 each MISCELLANE ONCE PRN PRN Reason: Consult order Sertraline HCl (Sertraline Hcl 100 Mg Tablet) 200 mg PO DAILY [facility] Last Admin: 10/11/21 11:29 Dose: 200 mg Documented by: Sodium Chloride (0.9 % Sodium Chloride Flush 3 Ml Syringe) 3 ml IVFLUSH QSHIFT [facility] Vitamin D (Cholecalciferol (Vitamin D3) 25 Mcg Tablet) 50 mcg PO DAILY [facility] Zolpidem Tartrate (Zolpidem Tartrate 5 Mg Tablet) 5 mg PO BEDTIME [facility] Home Medications Medication Instructions Recorded Confirmed Last Taken Type aspirin 81 mg tablet,delayed 81 mg PO QAM 07/25/20 10/11/21 10/10/21 History release (Aspir-) atorvastatin 80 mg tablet 80 mg PO BEDTIME 07/25/20 10/11/21 10/09/21 History carvedilol 25 mg tablet 25 mg PO BID 07/25/20 10/11/21 10/10/21 History gabapentin 600 mg tablet 600 mg PO BEDTIME 07/25/20 10/11/21 10/09/21 History oxcarbazepine 300 mg tablet 300 mg PO BID 07/25/20 10/11/21 10/10/21 History perphenazine 4 mg tablet 4 mg PO BID 07/25/20 10/11/21 10/10/21 History sertraline 100 mg tablet 200 mg PO DAILY 07/25/20 10/11/21 10/10/21 History zolpidem 10 mg tablet 1 tab PO BEDTIME 01/23/21 10/11/21 10/09/21 History fluticasone propionate 220 2 puff PO BID 08/18/21 10/11/21 10/10/21 History mcg/actuation HFA aerosol inhaler (Flovent HFA) insulin glargine U-300 conc 300 60 unit SUBCUT DAILY 09/25/21 10/11/21 10/10/21 History unit/mL (3 mL) subcutaneous pen (Toujeo Max U-300 SoloStar) albuterol sulfate 90 mcg/actuation 2 puff PO Q4H PRN 10/09/21 10/11/21 10/10/21 History aerosol inhaler (Ventolin HFA) cholecalciferol (vitamin D3) 25 50 mcg PO DAILY 10/09/21 10/11/21 10/10/21 History mcg (1,000 unit) tablet nifedipine 30 mg tablet,extended 120 mg PO BEDTIME tab 10/09/21 10/11/21 10/09/21 History release tadalafil 10 mg tablet (Cialis) 10 mg PO DAILY PRN 10/09/21 10/11/21 Unknown History Physical Exam Vital Signs: Last Vital Signs Temp 97.8 F 10/11/21 06:32 Pulse 69 10/11/21 15:27 Resp 18 10/11/21 15:27 BP 181/65 H 10/11/21 15:27 Pulse Ox 96 10/11/21 15:27 Const Other: In mild distress HENMT Head: Yes normocephalic Eyes EOM: EOMs intact bilaterally Neck Neck: Yes supple Resp Auscultation: crackles and diminished lung sounds Cardio Rate: regular rate GI Palpation (GI): Soft to palpation Neuro General: moves all extremities Results Lab Results Result Diagrams: 10/11/21 03:55 10/11/21 03:55 Lab results: Chemistry 10/11/21 03:55 Sodium 141 Potassium 3.5 Carbon Dioxide 25 BUN 54 H Creatinine 4.32 H* Calcium 7.8 L Hematology 10/11/21 10/11/21 03:55 03:55 WBC Cancelled 7.1 Hgb Cancelled 9.2 L Plt Count Cancelled 145 L D Assessment and Plan (1) Chronic kidney disease, stage 4 (severe): Status: Acute Renal functions pretty close to baseline Clinically hypervolemic; Started on lasix infusion Na restricted diet ; Daily weights May need to add Nitrates; Labs AM Blood pressure needs to be kept at goal No indication for UF or HD Shall closely follow up Procedures Date of Service Date of Service: 10/11/21
[2021-10-11 18:26] LABS: Glucose, Whole Blood 107 mg/dL (60-115)
[2021-10-11] MEDS: Gabapentin 600 MG TABLET PO (20:16)
[2021-10-11] MEDS: Zolpidem Tartrate 5 MG TABLET PO (20:17)
[2021-10-11] MEDS: Atorvastatin Calcium 80 MG TABLET PO (20:17)
[2021-10-11] MEDS: NIFEdipine ER 60 MG TAB.ER.24 120 MG PO (21:12)
[2021-10-11] MEDS: Fluticasone Propionate 250 MCG BLST.W.DEV 2 PUFF INHALE (21:16)
[2021-10-11 21:51] LABS: Glucose, Whole Blood 122 mg/dL (60-115)
[2021-10-11] MEDS: Insulin Glargine,Hum.rec.anlog 100 UNIT/ML 10 ML VIAL 60 UNIT SUBCUT (22:19)
--- NOTE | 2021-10-11 23:38 | PC.NURSE ---
Pt remains alert and oriented x4, calm and cooperative. Pt denies pain. Pt states SOB has improved. IV remains intact, Lasix drip remains running at 10mg/hr, pt tolerated well. Pt has adequate urine output throughout shift using urinal at bedside independently see output charting. Left arm not in use due to dialysis catheter, catheter noted to have strong bruit and thrill. BP elevated, MD aware and night time BP meds given. Pt denies headache, dizziness, or blurred vision. Pt OOB ambulated to bathroom to have BM, noted t be steady on feet with ambulation. Pt POC well controlled, tolerating PO diet, denies N/V. Call x1 to [facility] waiting for call back at this time.
[2021-10-12] VITALS (16 sets, daily range): BP systolic 161–182; BP diastolic 64–80; PULSE 60–78; RESP 16–22; TEMP 36.4–37.2; O2SAT 91–97; BMI 36.4; BMI 36.6
[2021-10-12 00:26] LABS: Glucose, Whole Blood 121 mg/dL (60-115)
[2021-10-12] MEDS: Albuterol/Iprat 2.5/0.5MG 3 ML AMPUL.NEB INHALE ×2 (01:39→20:23)
[2021-10-12 06:50] LABS: Anion Gap 16 (12-20); Blood Urea Nitrogen 56 mg/dL (9-16); Calcium 8.1 mg/dL (8.4-10.2); Carbon Dioxide 28 mmol/L (22-29); Chloride 102 mmol/L (96-108); Creatinine Clr Calc Pharmacy 22.5; Estimated Glomerular Filt Rate 13; Glucose Random 97 mg/dL (60-115); Potassium 3.3 mmol/L (3.3-5.1); Sodium 143 mmol/L (135-145)
[2021-10-12 07:41] LABS: Glucose, Whole Blood 89 mg/dL (60-115)
[2021-10-12] MEDS: Fluticasone Propionate 250 MCG BLST.W.DEV 2 PUFF INHALE ×2 (07:59→20:22)
[2021-10-12] MEDS: OXcarbazepine 300 MG TABLET PO ×2 (08:43→21:41)
[2021-10-12] MEDS: Sertraline HCL 100 MG TABLET 200 MG PO (08:43)
[2021-10-12] MEDS: hydrALAZINE HCl 50 MG TABLET 100 MG PO ×3 (08:44→21:40)
[2021-10-12] MEDS: Cholecalciferol (Vitamin D3) 25 MCG TABLET 50 MCG PO (08:44)
[2021-10-12] MEDS: Doxazosin Mesylate 2 MG TABLET PO ×2 (08:44→21:37)
[2021-10-12] MEDS: carvediloL 25 MG TABLET PO ×2 (08:44→21:41)
[2021-10-12] MEDS: Aspirin Enteric Coated 81 MG TABLET.DR PO (08:44)
[2021-10-12] MEDS: Perphenazine 4 MG TABLET PO ×2 (08:44→21:40)
[2021-10-12] MEDS: 0.9 % Sodium Chloride Flush 3 ML SYRINGE IVFLUSH (08:45)
[2021-10-12] MEDS: Heparin Sodium,Porcine 5,000 UNIT/ML VIAL 5000 UNIT SUBCUT ×2 (08:45→21:36)
--- NOTE | 2021-10-12 08:50 | MHC.CM.PN ---
IMM 10/12/21 Male 61 DX SOB VAXX x2 [employer] He lives alone. 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 He uses a cane for unsteady gait. DP home resume lead ios developer services . Patient's sister will provide transportation home.
[2021-10-12] MEDS: Furosemide 200 MG in 0.9 % Sodium Chloride 80 ML IVCONT (08:58)
--- NOTE | 2021-10-12 11:21 | P.PNNP_ITS ---
Subjective Subjective Date of Service: 10/12/21 Interval history: Feels improved Physical Exam Vital Signs: Vital Signs: Last Vital Signs Temp 97.6 F 10/12/21 11:18 Pulse 76 10/12/21 11:18 Resp 18 10/12/21 11:18 BP 162/80 H 10/12/21 11:18 Pulse Ox 97 10/12/21 11:18 BMI result Body Mass Index 36.6 Const: General: no acute distress Orientation/consciousness: patient oriented x3 Eyes: EOM: EOMs intact bilaterally Resp: Auscultation: diminished lung sounds Cardio: Rate: regular rate GI: Palpation (GI): Soft to palpation Neuro: General: patient oriented x3 and moves all extremities Objective Data Labs CBC & Chem 7: 10/11/21 03:55 10/12/21 05:38 Labs: Laboratory Results - last 24 hr 10/11/21 10/11/21 10/11/21 12:34 18:21 21:48 Sodium Potassium Chloride Carbon Dioxide Anion Gap BUN Creatinine Estim Creat Clear Calc Estimated GFR POC Glucose 115 107 122 H Random Glucose Calcium 10/12/21 10/12/21 10/12/21 00:18 05:38 07:37 Sodium 143 Potassium 3.3 Chloride 102 Carbon Dioxide 28 Anion Gap 16 BUN 56 H Creatinine 4.51 H* Estim Creat Clear Calc 22.5 Estimated GFR 13 POC Glucose 121 H 89 Random Glucose 97 Calcium 8.1 L Procedures Date of Service Date of Service: 10/12/21 Assessment & Plan Assessment and plan (1) Chronic kidney disease, stage 4 (severe): Status: Acute Assessment and Plan: Renal functions? pretty close to baseline Volume sstatus improved on lasix infusion Na restricted diet ; Daily weights May need to add Nitrates Blood pressure needs to be kept at goal No indication for UF or HD Labs AM; Shall closely follow up Time Spent With Patient Time: Total time spent is greater than 50% in coordination of care (as juan burrows) at patient's floor/unit and/or counseling patient: Progress Note: Quality Stroke Does the patient have a stroke diagnosis?: No
[2021-10-12 11:22] LABS: Glucose, Whole Blood 112 mg/dL (60-115)
--- NOTE | 2021-10-12 12:50 | P.PNIM_ITS ---
Subjective Subjective Date of Service: 10/12/21 Interval History: seen and examined this morning follow up for CHF no overnight events denies shortness of breath this morning Physical Exam Vital Signs: Vital Signs: Last Vital Signs Temp 97.6 F 10/12/21 11:18 Pulse 76 10/12/21 11:18 Resp 18 10/12/21 11:18 BP 162/80 H 10/12/21 11:18 Pulse Ox 97 10/12/21 11:18 BMI result Body Mass Index 36.6 Const: General: cooperative, comfortable, alert and awake Nutritional Appearance: well nourished Orientation/consciousness: patient oriented x3 HENMT: Head: Yes normocephalic and Yes atraumatic Eyes: Sclerae: sclerae normal Pupils: Equal, round and reactive pupils present Resp: Effort & Inspection: normal respiratory effort and no respiratory distress Cardio: Rate: regular rate Rhythm: regular rhythm GI: Palpation (GI): Soft to palpation and nontender Neuro: General: patient oriented x3 Cranial nerves: Yes CN's II-XII intact bilaterally, Yes Equal, round and reactive pupils present and Yes Bilaterally intact EOM present Extrem: Other: trace leg edema; LUE edema Objective Data Active Medications Acetaminophen (Acetaminophen 325 Mg Tablet) 650 mg PO Q6H PRN PRN Reason: Pain, Mild (Pain Scale 1-3) Albuterol Sulfate (Albuterol Sulfate 90 Mcg 8 Gm Inhaler) 2 puff INHALE RQ4H PRN PRN Reason: Shortness of Breath/Wheezing Albuterol/Ipratropium (Albuterol/Iprat 2.5/0.5mg 3 Ml Ampul.Neb) 3 ml INHALE RQ4H PRN PRN Reason: Shortness of Breath/Wheezing Last Admin: 10/12/21 01:39 Dose: 3 ml Documented by: MARGARET Aspirin (Aspirin Enteric Coated 81 Mg Tablet.) 81 mg PO DAILY [facility] Last Admin: 10/12/21 08:44 Dose: 81 mg Documented by: KARIN Atorvastatin Calcium (Atorvastatin Calcium 80 Mg Tablet) 80 mg PO BEDTIME [facility] Last Admin: 10/11/21 20:17 Dose: 80 mg Documented by: KRISTEN Carvedilol (Carvedilol 25 Mg Tablet) 25 mg PO BID [facility]; Protocol Last Admin: 10/12/21 08:44 Dose: 25 mg Documented by: KARIN Doxazosin Mesylate (Doxazosin Mesylate 2 Mg Tablet) 2 mg PO BID [facility]; Protocol Last Admin: 10/12/21 08:44 Dose: 2 mg Documented by: KARIN Fluticasone Propionate (Fluticasone Propionate 250 Mcg Blst.W.Dev) 2 puff INHALE RBID [facility] Last Admin: 10/12/21 07:59 Dose: 2 puff Documented by: HENRY Gabapentin (Gabapentin 600 Mg Tablet) 600 mg PO BEDTIME [facility] Last Admin: 10/11/21 20:16 Dose: 600 mg Documented by: KRISTEN Heparin Sodium (Porcine) (Heparin Sodium,Porcine 5,000 Unit/Ml Vial) 5,000 unit SUBCUT Q12H [facility] Last Admin: 10/12/21 08:45 Dose: 5,000 unit Documented by: KARIN Hydralazine HCl (Hydralazine Hcl 50 Mg Tablet) 100 mg PO TID [facility]; Protocol Last Admin: 10/12/21 08:44 Dose: 100 mg Documented by: KARIN Furosemide 200 mg/ Sodium (Chloride) 100 mls @ 5 mls/hr IVCONT .Q20H [facility] Last Admin: 10/12/21 08:58 Dose: 10 mg/hr, 5 mls/hr Documented by: KARIN Insulin Glargine (Insulin Glargine,Hum.Rec.Anlog 100 Unit/Ml 10 Ml Vial) 60 unit SUBCUT BEDTIME [facility] Last Admin: 10/11/21 22:19 Dose: 60 unit Documented by: KRISTEN Insulin Human Lispro (Insulin Lispro 100 Unit/Ml 3 Ml Vial) 0 unit SUBCUT QIDACHS [facility]; Protocol Last Admin: 10/12/21 12:31 Dose: Not Given Documented by: KARIN Non-Admin Reason: No Insulin Coverage Nifedipine (Nifedipine Er 60 Mg Tab.Er.24) 120 mg PO BEDTIME [facility] Last Admin: 10/11/21 21:12 Dose: 120 mg Documented by: KRISTEN Ondansetron HCl (Ondansetron Hcl 4 Mg/2 Ml Vial) 4 mg IVPUSH Q8H PRN PRN Reason: Nausea and Vomiting Oxcarbazepine (Oxcarbazepine 300 Mg Tablet) 300 mg PO BID [facility] Last Admin: 10/12/21 08:43 Dose: 300 mg Documented by: KARIN Perphenazine (Perphenazine 4 Mg Tablet) 4 mg PO BID [facility] Last Admin: 10/12/21 08:44 Dose: 4 mg Documented by: KARIN Pharmacy Consult (Consult Rx Perform Med Rec) 1 each MISCELLANE ONCE PRN PRN Reason: Consult order Sertraline HCl (Sertraline Hcl 100 Mg Tablet) 200 mg PO DAILY [facility] Last Admin: 10/12/21 08:43 Dose: 200 mg Documented by: KARIN Sodium Chloride (0.9 % Sodium Chloride Flush 3 Ml Syringe) 3 ml IVFLUSH QSHIFT [facility] Last Admin: 10/12/21 08:45 Dose: 3 ml Documented by: KARIN Vitamin D (Cholecalciferol (Vitamin D3) 25 Mcg Tablet) 50 mcg PO DAILY [facility] Last Admin: 10/12/21 08:44 Dose: 50 mcg Documented by: KARIN Zolpidem Tartrate (Zolpidem Tartrate 5 Mg Tablet) 5 mg PO BEDTIME [facility] Last Admin: 10/11/21 20:17 Dose: 5 mg Documented by: KRISTEN Labs CBC & Chem 7: 10/11/21 03:55 10/12/21 05:38 Labs: Laboratory Results - last 24 hr 10/11/21 10/11/21 10/11/21 12:34 18:21 21:48 Anion Gap Estim Creat Clear Calc Estimated GFR POC Glucose 115 107 122 H Random Glucose Calcium 10/12/21 10/12/21 10/12/21 00:18 05:38 07:37 Anion Gap 16 Estim Creat Clear Calc 22.5 Estimated GFR 13 POC Glucose 121 H 89 Random Glucose 97 Calcium 8.1 L 10/12/21 11:17 Anion Gap Estim Creat Clear Calc Estimated GFR POC Glucose 112 Random Glucose Calcium Assessment and Plan (1) Acute on chronic heart failure with preserved ejection fraction (HFpEF): Status: Acute (2) Type 2 diabetes mellitus with unspecified complications: Status: Acute (3) Essential hypertension: Status: Acute Assessment and Plan: This is a 61 yo M with a PMH of HFpEF, CKD5 (recent LUE AV fistula created), HTN, who presents to [facility] ED with complaints of progressive shortness of breath over the last 2-3 days prior to arrival. His presentation and work up are consistent with acute exacerbation of his chronic HFpEF. Acute on Chronic HFpEF improving. 2.8L negative changed to lasix drip yesterday, continue I/O CKD stage 5 nephrology following Uncontrolled HTN BP improving on coreg, cardura, hydralazine, nifedipine at baseline DM continue Lantus SSI Mood continue trileptal, trilafon, zoloft PUD PPI HLD statin BRENDA CPAP Full Code DVT pptx, Subcut. heparin attending: dr. love Quality Stroke Does the patient have a stroke diagnosis?: No VTE Prior VTE?: No VTE Risk Level:: Medical - moderate - high VTE Device Contraindication: Treatment Not Indicated VTE Drug Contraindication: N/A - Med Ordered
[2021-10-12 16:12] LABS: Glucose, Whole Blood 124 mg/dL (60-115)
[2021-10-12 20:25] LABS: Glucose, Whole Blood 159 mg/dL (60-115)
[2021-10-12] MEDS: Insulin Glargine,Hum.rec.anlog 100 UNIT/ML 10 ML VIAL 60 UNIT SUBCUT (21:36)
[2021-10-12] MEDS: Gabapentin 600 MG TABLET PO (21:37)
[2021-10-12] MEDS: Insulin Lispro 100 UNIT/ML 3 ML VIAL SUBCUT (21:37)
[2021-10-12] MEDS: Atorvastatin Calcium 80 MG TABLET PO (21:40)
[2021-10-12] MEDS: Zolpidem Tartrate 5 MG TABLET PO (21:40)
[2021-10-12] MEDS: NIFEdipine ER 60 MG TAB.ER.24 120 MG PO (21:41)
[2021-10-13] VITALS (16 sets, daily range): BP systolic 145–197; BP diastolic 65–82; PULSE 61–72; RESP 17–22; TEMP 36.5–37.1; O2SAT 92–98; BMI 36.0
[2021-10-13] MEDS: Albuterol/Iprat 2.5/0.5MG 3 ML AMPUL.NEB INHALE ×2 (02:58→18:17)
[2021-10-13] MEDS: Furosemide 200 MG in 0.9 % Sodium Chloride 80 ML IVCONT (03:06)
[2021-10-13 06:52] LABS: MANUAL DIFF FLAG NO
[2021-10-13 07:08] LABS: Basophils Percent Auto 0.3 % (0-2); Eosinophils Absolute Auto 0.3 X10*3/uL (0.0-0.4); Eosinophils Percent Auto 4.4 % (0-4); Hematocrit 27.3 % (42.0-52.0); Hemoglobin 9.2 g/dl (14.0-18.0); Imm Gran Abs Auto 0.02 X10*3/uL (0.00-0.03); Imm Gran Pct Auto 0.3 % (0.0-0.4); Lymphocytes Absolute Auto 1.1 X10*3/uL (1.2-4.9); Lymphocytes Percent Auto 18.5 % (20-40); Mean Corpuscular HGB Conc 33.7 g/dl (31.0-36.0); Mean Corpuscular Hemoglobin 30.2 pg (27.0-33.0); Mean Corpuscular Volume 89.5 fL (80.0-98.0); Mean Platelet Volume 12.2 fL (9.4-12.4); Monocytes Absolute Auto 0.4 X10*3/uL (0.1-1.2); Monocytes Percent Auto 6.1 % (2-11); Neutrophils Absolute Auto 4.2 x10*3/uL (2.0-8.3); Neutrophils Percent Auto 70.4 % (45-73); Platelet Count 160 X10*3/uL (160-400); Red Blood Count 3.05 X10*6/uL (4.60-5.80); Red Cell Distribution Width 13.4 % (11.0-16.0); White Blood Count 5.9 X10*3/uL (4.8-10.8)
[2021-10-13 07:27] LABS: Anion Gap 15 (12-20); Blood Urea Nitrogen 59 mg/dL (9-16); Carbon Dioxide 29 mmol/L (22-29); Chloride 100 mmol/L (96-108); Creatinine Clr Calc Pharmacy 21.8; Estimated Glomerular Filt Rate 13; Glucose Random 143 mg/dL (60-115); Potassium 3.1 mmol/L (3.3-5.1); Sodium 141 mmol/L (135-145)
[2021-10-13] MEDS: Fluticasone Propionate 250 MCG BLST.W.DEV 2 PUFF INHALE ×2 (07:51→21:20)
[2021-10-13 08:03] LABS: Glucose, Whole Blood 96 mg/dL (60-115)
[2021-10-13] MEDS: OXcarbazepine 300 MG TABLET PO ×2 (08:34→21:54)
[2021-10-13] MEDS: carvediloL 25 MG TABLET PO ×2 (08:34→21:55)
[2021-10-13] MEDS: Doxazosin Mesylate 2 MG TABLET PO ×2 (08:34→21:54)
[2021-10-13] MEDS: Cholecalciferol (Vitamin D3) 25 MCG TABLET 50 MCG PO (08:34)
[2021-10-13] MEDS: Aspirin Enteric Coated 81 MG TABLET.DR PO (08:35)
[2021-10-13] MEDS: hydrALAZINE HCl 50 MG TABLET 100 MG PO ×3 (08:35→21:55)
[2021-10-13] MEDS: Sertraline HCL 100 MG TABLET 200 MG PO (08:35)
[2021-10-13] MEDS: Perphenazine 4 MG TABLET PO ×2 (08:35→21:54)
[2021-10-13] MEDS: Heparin Sodium,Porcine 5,000 UNIT/ML VIAL 5000 UNIT SUBCUT ×2 (08:36→21:55)
[2021-10-13] MEDS: Potassium Chloride ER 20 MEQ TAB.ER.PRT PO (10:18)
--- NOTE | 2021-10-13 10:18 | P.PNIM_ITS ---
Subjective Subjective Date of Service: 10/13/21 Interval History: seen and examined this morning follow up for chf no overnight events no sob, no chest pain. feeling better Review of Systems Review of Systems: Yes all other systems are reviewed and are negative Constitutional Constitutional: Denies chills and Denies fever(s) Cardiovascular Cardiovascular: Denies chest pain Respiratory Respiratory: Denies cough Gastrointestinal Gastrointestinal: Denies abdominal pain Physical Exam Vital Signs: Vital Signs: Last Vital Signs Temp 97.7 F 10/13/21 08:00 Pulse 72 10/13/21 08:35 Resp 18 10/13/21 08:01 BP 186/74 H 10/13/21 08:35 Pulse Ox 96 10/13/21 08:00 BMI result Body Mass Index 36.0 Const: General: cooperative, comfortable, alert and awake Nutritional Appearance: well nourished Orientation/consciousness: patient oriented x3 HENMT: Head: Yes normocephalic and Yes atraumatic Eyes: Sclerae: sclerae normal Pupils: Equal, round and reactive pupils present Resp: Effort & Inspection: normal respiratory effort and no respiratory distress Cardio: Rate: regular rate Rhythm: regular rhythm GI: Palpation (GI): Soft to palpation and nontender Neuro: General: patient oriented x3 Cranial nerves: Yes CN's II-XII intact bilaterally, Yes Equal, round and reactive pupils present and Yes Bilaterally intact EOM present Extrem: Other: trace leg edema; LUE edema Objective Data Active Medications Acetaminophen (Acetaminophen 325 Mg Tablet) 650 mg PO Q6H PRN PRN Reason: Pain, Mild (Pain Scale 1-3) Albuterol Sulfate (Albuterol Sulfate 90 Mcg 8 Gm Inhaler) 2 puff INHALE RQ4H PRN PRN Reason: Shortness of Breath/Wheezing Albuterol/Ipratropium (Albuterol/Iprat 2.5/0.5mg 3 Ml Ampul.Neb) 3 ml INHALE RQ4H PRN PRN Reason: Shortness of Breath/Wheezing Last Admin: 10/13/21 02:58 Dose: 3 ml Documented by: ABHIJIT Aspirin (Aspirin Enteric Coated 81 Mg Tablet.) 81 mg PO DAILY [facility] Last Admin: 10/13/21 08:35 Dose: 81 mg Documented by: RUBY Atorvastatin Calcium (Atorvastatin Calcium 80 Mg Tablet) 80 mg PO BEDTIME [facility] Last Admin: 10/12/21 21:40 Dose: 80 mg Documented by: BK Carvedilol (Carvedilol 25 Mg Tablet) 25 mg PO BID [facility]; Protocol Last Admin: 10/13/21 08:34 Dose: 25 mg Documented by: RUBY Doxazosin Mesylate (Doxazosin Mesylate 2 Mg Tablet) 2 mg PO BID [facility]; Protocol Last Admin: 10/13/21 08:34 Dose: 2 mg Documented by: RUBY Fluticasone Propionate (Fluticasone Propionate 250 Mcg Blst.W.Dev) 2 puff INH HITESH RBID [facility] Last Admin: 10/13/21 07:51 Dose: 2 puff Documented by: RUT Gabapentin (Gabapentin 600 Mg Tablet) 600 mg PO BEDTIME [facility] Last Admin: 10/12/21 21:37 Dose: 600 mg Documented by: BK Heparin Sodium (Porcine) (Heparin Sodium,Porcine 5,000 Unit/Ml Vial) 5,000 unit SUBCUT Q12H [facility] Last Admin: 10/13/21 08:36 Dose: 5,000 unit Documented by: RUBY Hydralazine HCl (Hydralazine Hcl 50 Mg Tablet) 100 mg PO TID [facility]; Protocol Last Admin: 10/13/21 08:35 Dose: 100 mg Documented by: RUBY Furosemide 200 mg/ Sodium (Chloride) 100 mls @ 5 mls/hr IVCONT .Q20H [facility] Last Admin: 10/13/21 03:06 Dose: 10 mg/hr, 5 mls/hr Documented by: BK Insulin Glargine (Insulin Glargine,Hum.Rec.Anlog 100 Unit/Ml 10 Ml Vial) 60 unit SUBCUT BEDTIME [facility] Last Admin: 10/12/21 21:36 Dose: 60 unit Documented by: BK Insulin Human Lispro (Insulin Lispro 100 Unit/Ml 3 Ml Vial) 0 unit SUBCUT QIDACHS [facility]; Protocol Last Admin: 10/13/21 08:36 Dose: Not Given Documented by: RUBY Non-Admin Reason: No Insulin Coverage Isosorbide Mononitrate (Isosorbide Mononitrate 30 Mg Tab.Er.24h) 30 mg PO DAILY [facility]; Protocol Nifedipine (Nifedipine Er 60 Mg Tab.Er.24) 120 mg PO BEDTIME [facility] Last Admin: 10/12/21 21:41 Dose: 120 mg Documented by: BK Ondansetron HCl (Ondansetron Hcl 4 Mg/2 Ml Vial) 4 mg IVPUSH Q8H PRN PRN Reason: Nausea and Vomiting Oxcarbazepine (Oxcarbazepine 300 Mg Tablet) 300 mg PO BID [facility] Last Admin: 10/13/21 08:34 Dose: 300 mg Documented by: RUBY Perphenazine (Perphenazine 4 Mg Tablet) 4 mg PO BID [facility] Last Admin: 10/13/21 08:35 Dose: 4 mg Documented by: RUBY Pharmacy Consult (Consult Rx Perform Med Rec) 1 each MISCELLANE ONCE PRN PRN Reason: Consult order Sertraline HCl (Sertraline Hcl 100 Mg Tablet) 200 mg PO DAILY [facility] Last Admin: 10/13/21 08:35 Dose: 200 mg Documented by: RUBY Sodium Chloride (0.9 % Sodium Chloride Flush 3 Ml Syringe) 3 ml IVFLUSH QSHIFT [facility] Last Admin: 10/13/21 09:59 Dose: Not Given Documented by: RUBY Non-Admin Reason: IV Running Vitamin D (Cholecalciferol (Vitamin D3) 25 Mcg Tablet) 50 mcg PO DAILY [facility] Last Admin: 10/13/21 08:34 Dose: 50 mcg Documented by: RUBY Zolpidem Tartrate (Zolpidem Tartrate 5 Mg Tablet) 5 mg PO BEDTIME [facility] Last Admin: 10/12/21 21:40 Dose: 5 mg Documented by: BK Labs CBC & Chem 7: 10/13/21 05:56 10/13/21 05:56 Labs: Laboratory Results - last 24 hr 10/12/21 10/12/21 10/12/21 11:17 16:08 20:22 MCV MCH MCHC RDW Plt Count MPV Immature Gran % (Auto) Neut % (Auto) Lymph % (Auto) [place] % (Auto) Eos % (Auto) Baso % (Auto) Lymph # (Auto) [place] # (Auto) Eos # (Auto) Baso # (Auto) Abs Immat Gran (auto) Absolute Neuts (auto) Absolute Nucleated RBC Nucleated RBC % (auto) Anion Gap Estim Creat Clear Calc Estimated GFR POC Glucose 112 124 H 159 H Random Glucose Calcium 10/13/21 10/13/21 10/13/21 05:56 05:56 07:59 MCV 89.5 MCH 30.2 MCHC 33.7 RDW 13.4 Plt Count 160 MPV 12.2 Immature Gran % (Auto) 0.3 Neut % (Auto) 70.4 Lymph % (Auto) 18.5 L [place] % (Auto) 6.1 Eos % (Auto) 4.4 H Baso % (Auto) 0.3 Lymph # (Auto) 1.1 L [place] # (Auto) 0.4 Eos # (Auto) 0.3 Baso # (Auto) 0.0 Abs Immat Gran (auto) 0.02 Absolute Neuts (auto) 4.2 Absolute Nucleated RBC 0.000 Nucleated RBC % (auto) 0.0 Anion Gap 15 Estim Creat Clear Calc 21.8 Estimated GFR 13 POC Glucose 96 Random Glucose 143 H D Calcium 8.0 L Assessment and Plan (1) Acute on chronic heart failure with preserved ejection fraction (HFpEF): Status: Acute (2) Type 2 diabetes mellitus with unspecified complications: Status: Acute (3) Essential hypertension: Status: Acute Assessment and Plan: This is a 61 yo M with a PMH of HFpEF, CKD5 (recent LUE AV fistula created), HTN, who presents to [facility] ED with complaints of progressive shortness of breath over the last 2-3 days prior to arrival. His presentation and work up are consistent with acute exacerbation of his chronic HFpEF. Acute on Chronic HFpEF improving. 4.1 L negative changed to lasix drip yesterday. Follow I/O hypokalemia replace and follow BMP CKD stage 5 nephrology following Uncontrolled HTN BP still elevated will add imdur continue home doses of coreg, cardura, hydralazine, nifedipine at baseline DM continue Lantus SSI Mood continue trileptal, trilafon, zoloft PUD PPI HLD statin BRENDA CPAP Full Code DVT pptx, Subcut. heparin attending: dr. love Quality Stroke Does the patient have a stroke diagnosis?: No VTE Prior VTE?: No VTE Risk Level:: Medical - moderate - high VTE Device Contraindication: Treatment Not Indicated VTE Drug Contraindication: N/A - Med Ordered
[2021-10-13] MEDS: Isosorbide Mononitrate 30 MG TAB.ER.24H PO (10:19)
[2021-10-13 11:21] LABS: Glucose, Whole Blood 156 mg/dL (60-115)
--- NOTE | 2021-10-13 11:36 | P.PNNP_ITS ---
Subjective Subjective Date of Service: 10/13/21 Interval history: seen and examined this morning; Feels better; D/W Hospitalist team Physical Exam Vital Signs: Vital Signs: Last Vital Signs Temp 97.7 F 10/13/21 08:00 Pulse 72 10/13/21 10:19 Resp 18 10/13/21 08:01 BP 186/74 H 10/13/21 10:19 Pulse Ox 96 10/13/21 08:00 BMI result Body Mass Index 36.0 Const: General: no acute distress Orientation/consciousness: patient oriented x3 Eyes: EOM: EOMs intact bilaterally Neck: Neck: Yes supple Resp: Auscultation: diminished lung sounds Cardio: Rate: regular rate GI: Palpation (GI): Soft to palpation Neuro: General: patient oriented x3 and moves all extremities Objective Data Labs CBC & Chem 7: 10/13/21 05:56 10/13/21 05:56 Labs: Laboratory Results - last 24 hr 10/12/21 10/12/21 10/13/21 16:08 20:22 05:56 WBC 5.9 RBC 3.05 L Hgb 9.2 L Hct 27.3 L MCV 89.5 MCH 30.2 MCHC 33.7 RDW 13.4 Plt Count 160 MPV 12.2 Immature Gran % (Auto) 0.3 Neut % (Auto) 70.4 Lymph % (Auto) 18.5 L [place] % (Auto) 6.1 Eos % (Auto) 4.4 H Baso % (Auto) 0.3 Lymph # (Auto) 1.1 L [place] # (Auto) 0.4 Eos # (Auto) 0.3 Baso # (Auto) 0.0 Abs Immat Gran (auto) 0.02 Absolute Neuts (auto) 4.2 Absolute Nucleated RBC 0.000 Nucleated RBC % (auto) 0.0 Sodium Potassium Chloride Carbon Dioxide Anion Gap BUN Creatinine Estim Creat Clear Calc Estimated GFR POC Glucose 124 H 159 H Random Glucose Calcium 10/13/21 10/13/21 10/13/21 05:56 07:59 11:11 WBC RBC Hgb Hct MCV MCH MCHC RDW Plt Count MPV Immature Gran % (Auto) Neut % (Auto) Lymph % (Auto) [place] % (Auto) Eos % (Auto) Baso % (Auto) Lymph # (Auto) [place] # (Auto) Eos # (Auto) Baso # (Auto) Abs Immat Gran (auto) Absolute Neuts (auto) Absolute Nucleated RBC Nucleated RBC % (auto) Sodium 141 Potassium 3.1 L Chloride 100 Carbon Dioxide 29 Anion Gap 15 BUN 59 H Creatinine 4.63 H* Estim Creat Clear Calc 21.8 Estimated GFR 13 POC Glucose 96 156 H Random Glucose 143 H D Calcium 8.0 L Procedures Date of Service Date of Service: 10/13/21 Assessment & Plan Assessment and plan (1) Chronic kidney disease, stage 4 (severe): Status: Acute Assessment and Plan: Renal functions? pretty close to baseline Volume status improved on lasix infusion Shall switch lasix infusion to Torsemide 80 mg bid PO Na restricted diet ; Daily weights Need to keep K over 4 Blood pressure needs to be kept at goal No indication for UF or HD Labs AM; Shall closely follow up Time Spent With Patient Time: Total time spent is greater than 50% in coordination of care (as documented) at patient's floor/unit and/or counseling patient: Progress Note: Quality Stroke Does the patient have a stroke diagnosis?: No
--- NOTE | 2021-10-13 12:19 | P.CDIC_ITS ---
CDI Concurrent Query Documentation Clarification: PHYSICIAN'S DOCUMENTATION REQUEST Date of Query: 10/13/21 1220 Patient Name: Jose D Dickens Admit Date: 10/11/21 Dear Doctor, A review of the medical record indicates additional documentation may be needed. Please review below and update the documentation accordingly. Risk Factors/Clinical Indicators/Treatments Nephrology note 10/11: CKD 4 Nephrology note 10/12: CKD 4 H&P 10/11: CKD 5 Progress note 10/12: CKD 5 Please indicate in your progress notes if you are in agreement that the above diagnosis is valid for this patient: Consistency of documentation within the medical record: Stages * Chronic kidney disease Stage 4 * Chronic kidney disease Stage 5 * Other (please specify) * Unable to determine Use of terms such as suspected, likely, concern for, or probable (associated with a specific diagnosis that is being evaluated, monitored, or treated as if it exists) are acceptable and can be coded in the inpatient setting, when documented at the time of discharge. Thank you, Emi Melendez [facility], CDIS Extension: [phone] Please use your independent medical judgment in providing your response. THIS QUERY IS PART OF THE PERMANENT MEDICAL RECORD Provider Response: CKD Stage 4
[2021-10-13] MEDS: Insulin Lispro 100 UNIT/ML 3 ML VIAL SUBCUT ×2 (12:20→17:18)
[2021-10-13] MEDS: Torsemide 20 MG TABLET 80 MG PO ×2 (12:24→21:55)
[2021-10-13] MEDS: 0.9 % Sodium Chloride Flush 3 ML SYRINGE IVFLUSH ×2 (15:09→21:56)
[2021-10-13 16:19] LABS: Glucose, Whole Blood 158 mg/dL (60-115)
[2021-10-13 21:48] LABS: Glucose, Whole Blood 150 mg/dL (60-115)
[2021-10-13] MEDS: Zolpidem Tartrate 5 MG TABLET PO (21:55)
[2021-10-13] MEDS: NIFEdipine ER 60 MG TAB.ER.24 120 MG PO (21:55)
[2021-10-13] MEDS: Atorvastatin Calcium 80 MG TABLET PO (21:55)
[2021-10-13] MEDS: Gabapentin 600 MG TABLET PO (21:55)
[2021-10-13] MEDS: Insulin Glargine,Hum.rec.anlog 100 UNIT/ML 10 ML VIAL 60 UNIT SUBCUT (21:56)
[2021-10-14] VITALS (7 sets, daily range): BP systolic 167–190; BP diastolic 70–82; PULSE 61–68; RESP 18–20; TEMP 36.6–37; O2SAT 93–97; BMI 35.6
--- NOTE | 2021-10-14 01:27 | PC.NURSE ---
Addendum entered by Willow Alexandra RN 10/14/21 02:40: Notified MD again regarding blood pressure being elevated. MD acknowledged bp, no new orders at this time. Original Note: pt manual bp 190/82. c/o mild headache. notified, currently awaiting new orders
[2021-10-14 07:27] LABS: Glucose, Whole Blood 72 mg/dL (60-115)
[2021-10-14] MEDS: Fluticasone Propionate 250 MCG BLST.W.DEV 2 PUFF INHALE (08:11)
[2021-10-14 10:10] LABS: Anion Gap 17 (12-20); Blood Urea Nitrogen 59 mg/dL (9-16); Calcium 7.9 mg/dL (8.4-10.2); Carbon Dioxide 28 mmol/L (22-29); Chloride 99 mmol/L (96-108); Creatinine Clr Calc Pharmacy 22.2; Estimated Glomerular Filt Rate 13; Glucose Random 146 mg/dL (60-115); Potassium 3.2 mmol/L (3.3-5.1); Sodium 141 mmol/L (135-145)
[2021-10-14 11:17] LABS: Glucose, Whole Blood 129 mg/dL (60-115)
[2021-10-14] MEDS: Cholecalciferol (Vitamin D3) 25 MCG TABLET 50 MCG PO (11:17)
[2021-10-14] MEDS: Aspirin Enteric Coated 81 MG TABLET.DR PO (11:17)
[2021-10-14] MEDS: Sertraline HCL 100 MG TABLET 200 MG PO (11:18)
[2021-10-14] MEDS: Isosorbide Mononitrate 30 MG TAB.ER.24H PO (11:19)
[2021-10-14] MEDS: carvediloL 25 MG TABLET PO (11:19)
[2021-10-14] MEDS: 0.9 % Sodium Chloride Flush 3 ML SYRINGE IVFLUSH (11:19)
[2021-10-14] MEDS: Heparin Sodium,Porcine 5,000 UNIT/ML VIAL 5000 UNIT SUBCUT (11:20)
[2021-10-14] MEDS: Perphenazine 4 MG TABLET PO (11:20)
[2021-10-14] MEDS: Doxazosin Mesylate 2 MG TABLET PO (11:20)
[2021-10-14] MEDS: hydrALAZINE HCl 50 MG TABLET 100 MG PO (11:20)
[2021-10-14] MEDS: Torsemide 20 MG TABLET 80 MG PO (11:21)
[2021-10-14] MEDS: OXcarbazepine 300 MG TABLET PO (11:21)
--- NOTE | 2021-10-14 14:44 | HO.PM.IMPN ---
Subjective Subjective Date of Service: 10/14/21 Interval History: seen and examined this morning follow up for uncontrolled HTN, CHF no sob, no chest pain Review of Systems Review of Systems: Yes all other systems are reviewed and are negative Constitutional Constitutional: Denies chills and Denies fever(s) Cardiovascular Cardiovascular: Denies chest pain Respiratory Respiratory: Denies cough Gastrointestinal Gastrointestinal: Denies abdominal pain Physical Exam Vital Signs: Vital Signs: Last Vital Signs Temp 97.9 F 10/14/21 11:30 Pulse 65 10/14/21 11:30 Resp 20 10/14/21 11:30 BP 168/70 H 10/14/21 11:30 Pulse Ox 95 10/14/21 11:30 BMI result Body Mass Index 35.6 Const: General: cooperative, comfortable, alert and awake Nutritional Appearance: well nourished Orientation/consciousness: patient oriented x3 HENMT: Head: Yes normocephalic and Yes atraumatic Eyes: Sclerae: sclerae normal Pupils: Equal, round and reactive pupils present Resp: Effort & Inspection: normal respiratory effort and no respiratory distress Cardio: Rate: regular rate Rhythm: regular rhythm GI: Palpation (GI): Soft to palpation and nontender Neuro: General: patient oriented x3 Cranial nerves: Yes CN's II-XII intact bilaterally, Yes Equal, round and reactive pupils present and Yes Bilaterally intact EOM present Extrem: Other: trace leg edema; LUE edema Objective Data Active Medications Acetaminophen (Acetaminophen 325 Mg Tablet) 650 mg PO Q6H PRN PRN Reason: Pain, Mild (Pain Scale 1-3) Albuterol Sulfate (Albuterol Sulfate 90 Mcg 8 Gm Inhaler) 2 puff INHALE RQ4H PRN PRN Reason: Shortness of Breath/Wheezing Albuterol/Ipratropium (Albuterol/Iprat 2.5/0.5mg 3 Ml Ampul.Neb) 3 ml INHALE RQ4H PRN PRN Reason: Shortness of Breath/Wheezing Last Admin: 10/13/21 18:17 Dose: 3 ml Documented by: RUT Aspirin (Aspirin Enteric Coated 81 Mg Tablet.) 81 mg PO DAILY [facility] Last Admin: 10/14/21 11:17 Dose: 81 mg Documented by: JILLIAN Atorvastatin Calcium (Atorvastatin Calcium 80 Mg Tablet) 80 mg PO BEDTIME [facility] Last Admin: 10/13/21 21:55 Dose: 80 mg Documented by: SAMIR Carvedilol (Carvedilol 25 Mg Tablet) 25 mg PO BID [facility]; Protocol Last Admin: 10/14/21 11:19 Dose: 25 mg Documented by: JILLIAN Doxazosin Mesylate (Doxazosin Mesylate 2 Mg Tablet) 2 mg PO BID [facility]; Protocol Last Admin: 10/14/21 11:20 Dose: 2 mg Documented by: JILLIAN Fluticasone Propionate (Fluticasone Propionate 250 Mcg Blst.W.Dev) 2 puff INHALE RBID [facility] Last Admin: 10/14/21 08:11 Dose: 2 puff Documented by: SY Gabapentin (Gabapentin 600 Mg Tablet) 600 mg PO BEDTIME [facility] Last Admin: 10/13/21 21:55 Dose: 600 mg Documented by: SAMIR Heparin Sodium (Porcine) (Heparin Sodium,Porcine 5,000 Unit/Ml Vial) 5,000 unit SUBCUT Q12H [facility] Last Admin: 10/14/21 11:20 Dose: 5,000 unit Documented by: JILLIAN Hydralazine HCl (Hydralazine Hcl 50 Mg Tablet) 100 mg PO TID [facility]; Protocol Last Admin: 10/14/21 11:20 Dose: 100 mg Documented by: JILLIAN Insulin Glargine (Insulin Glargine,Hum.Rec.Anlog 100 Unit/Ml 10 Ml Vial) 60 unit SUBCUT BEDTIME [facility] Last Admin: 10/13/21 21:56 Dose: 60 unit Documented by: SAMIR Insulin Human Lispro (Insulin Lispro 100 Unit/Ml 3 Ml Vial) 0 unit SUBCUT QIDACHS [facility]; Protocol Last Admin: 10/14/21 12:33 Dose: Not Given Documented by: JILLIAN Non-Admin Reason: No Insulin Coverage Isosorbide Mononitrate (Isosorbide Mononitrate 30 Mg Tab.Er.24h) 30 mg PO DAILY [facility]; Protocol Last Admin: 10/14/21 11:19 Dose: 30 mg Documented by: JILLIAN Nifedipine (Nifedipine Er 60 Mg Tab.Er.24) 120 mg PO BEDTIME [facility] Last Admin: 10/13/21 21:55 Dose: 120 mg Documented by: SAMIR Ondansetron HCl (Ondansetron Hcl 4 Mg/2 Ml Vial) 4 mg IVPUSH Q8H PRN PRN Reason: Nausea and Vomiting Oxcarbazepine (Oxcarbazepine 300 Mg Tablet) 300 mg PO BID [facility] Last Admin: 10/14/21 11:21 Dose: 300 mg Documented by: JILLIAN Perphenazine (Perphenazine 4 Mg Tablet) 4 mg PO BID [facility] Last Admin: 10/14/21 11:20 Dose: 4 mg Documented by: JLILIAN Pharmacy Consult (Consult Rx Perform Med Rec) 1 each MISCELLANE ONCE PRN PRN Reason: Consult order Sertraline HCl (Sertraline Hcl 100 Mg Tablet) 200 mg PO DAILY [facility] Last Admin: 10/14/21 11:18 Dose: 200 mg Documented by: JILLIAN Sodium Chloride (0.9 % Sodium Chloride Flush 3 Ml Syringe) 3 ml IVFLUSH QSHIFT [facility] Last Admin: 10/14/21 11:19 Dose: 3 ml Documented by: JILLIAN Torsemide (Torsemide 20 Mg Tablet) 80 mg PO BID [facility]; Protocol Last Admin: 10/14/21 11:21 Dose: 80 mg Documented by: JILLINA Vitamin D (Cholecalciferol (Vitamin D3) 25 Mcg Tablet) 50 mcg PO DAILY [facility] Last Admin: 10/14/21 11:17 Dose: 50 mcg Documented by: JILLIAN Zolpidem Tartrate (Zolpidem Tartrate 5 Mg Tablet) 5 mg PO BEDTIME [facility] Last Admin: 10/13/21 21:55 Dose: 5 mg Documented by: SAMIR Labs CBC & Chem 7: 10/13/21 05:56 10/14/21 08:47 Labs: Laboratory Results - last 24 hr 10/13/21 10/13/21 10/14/21 16:16 21:41 07:23 Anion Gap Estim Creat Clear Calc Estimated GFR POC Glucose 158 H 150 H 72 Random Glucose Calcium 10/14/21 10/14/21 08:47 11:13 Anion Gap 17 Estim Creat Clear Calc 22.2 Estimated GFR 13 POC Glucose 129 H Random Glucose 146 H Calcium 7.9 L Assessment and Plan Assessment and Plan: This is a 61 yo M with a PMH of HFpEF, CKD5 (recent LUE AV fistula created), HTN, who presents to [facility] ED with complaints of progressive shortness of breath over the last 2-3 days prior to arrival. His presentation and work up are consistent with acute exacerbation of his chronic HFpEF. Acute on Chronic HFpEF improving. 4.1 L negative lasix Follow I/O hypokalemia replace and follow BMP CKD stage 5 nephrology following Uncontrolled HTN BP still elevated will add imdur continue home doses of coreg, cardura, hydralazine, nifedipine at baseline DM continue Lantus SSI Mood continue trileptal, trilafon, zoloft PUD PPI HLD statin BRENDA CPAP Full Code DVT pptx, Subcut. heparin attending: dr. villalobos Quality Stroke Does the patient have a stroke diagnosis?: No VTE Prior VTE?: No VTE Risk Level:: Medical - moderate - high VTE Device Contraindication: Treatment Not Indicated VTE Drug Contraindication: N/A - Med Ordered
--- NOTE | 2021-10-14 15:13 | PM.PNNEP ---
Subjective Subjective Date of Service: 10/14/21 Interval history: seen and examined. Events noted; Feels better Physical Exam Vital Signs: Vital Signs: Last Vital Signs Temp 97.9 F 10/14/21 11:30 Pulse 65 10/14/21 11:30 Resp 20 10/14/21 11:30 BP 168/70 H 10/14/21 11:30 Pulse Ox 95 10/14/21 11:30 BMI result Body Mass Index 35.6 Const: General: comfortable Orientation/consciousness: patient oriented x3 Eyes: EOM: EOMs intact bilaterally Neck: Neck: Yes supple Resp: Auscultation: diminished lung sounds Cardio: Rate: regular rate GI: Palpation (GI): Soft to palpation Neuro: General: patient oriented x3 and moves all extremities Objective Data Labs CBC & Chem 7: 10/13/21 05:56 10/14/21 08:47 Labs: Laboratory Results - last 24 hr 10/13/21 10/13/21 10/14/21 16:16 21:41 07:23 Sodium Potassium Chloride Carbon Dioxide Anion Gap BUN Creatinine Estim Creat Clear Calc Estimated GFR POC Glucose 158 H 150 H 72 Random Glucose Calcium 10/14/21 10/14/21 08:47 11:13 Sodium 141 Potassium 3.2 L Chloride 99 Carbon Dioxide 28 Anion Gap 17 BUN 59 H Creatinine 4.51 H* Estim Creat Clear Calc 22.2 Estimated GFR 13 POC Glucose 129 H Random Glucose 146 H Calcium 7.9 L Procedures Date of Service Date of Service: 10/14/21 Assessment & Plan Assessment and plan (1) Chronic kidney disease, stage 4 (severe): Status: Acute Assessment and Plan: Renal functions? pretty close to baseline Volume status improved on lasix infusion C/W Torsemide 80 mg bid PO Na restricted diet ; Daily weights Need to keep K over 4 Blood pressure needs to be kept at goal No indication for UF or HD Could be D/Jose from a renal perspective Shall arrange close office follow up Time Spent With Patient Time: Total time spent is greater than 50% in coordination of care (as documented) at patient's floor/unit and/or counseling patient: Progress Note: Quality Stroke Does the patient have a stroke diagnosis?: No
--- NOTE | 2021-10-14 15:46 | PM.DS ---
DS: Providers Provider Date of Service: 10/14/21 <CORNELIO Villatoro - Last Filed: 10/14/21 16:13> Date of admission: 10/11/21 08:53 <CORNELIO Villatoro - Last Filed: 10/14/21 16:13> Date of discharge: 10/14/21 <CORNELIO Villatoro - Last Filed: 10/14/21 16:13> Primary care physician: Nuvia Crook NP <CORNELIO Villatoro - Last Filed: 10/14/21 16:13> Consults: 10/11/21 08:53 Consult to Nephrology Routine Consulting Provider: Pedro Luis Guerrero Reason for consultation: CKD5, fluid overload <CORNELIO Villatoro - Last Filed: 10/14/21 16:13> Attending physician on discharge: Ash Mlapa <CORNELIO Villatoro - Last Filed: 10/14/21 16:13> Discharging clinician: Mary Steel <CORNELIO Villatoro - Last Filed: 10/14/21 16:13> DS: Diagnosis Discharge Diagnosis (1) Chronic kidney disease, stage 4 (severe): Status: Acute <CORNELIO Villatoro - Last Filed: 10/14/21 16:13> (2) Acute on chronic heart failure with preserved ejection fraction (HFpEF): Status: Acute <CORNELIO Villatoro - Last Filed: 10/14/21 16:13> (3) Type 2 diabetes mellitus with unspecified complications: Status: Acute <CORNELIO Villatoro - Last Filed: 10/14/21 16:13> (4) Essential hypertension: Status: Acute <CORNELIO Villatoro - Last Filed: 10/14/21 16:13> DS: Summary Hospital Course Hospital Course: From H&P on day of admission This is a 61 yo M with a PMH of CKD5, HFpEF, Uncontrolled HTN, BRENDA, COPD/Asthma who presents to the ED with complaints of shortness of breath and worsening orthopnea over the last 2-3 days. He reports that he began feeling shortness of breath with exertion and this has now progressed to SOB with minimal movement. He also endorses orthopnea and is unable to sleep supine. He reports a cough in the supine position, but otherwise no cough. He reports that he does not check his weight, so he unsure if he has gained any weight. He reports that his LE edema is stable. He denies any anginal chest pain. Upon arrival to the ED, patient was noted to be in visible respiratory distress. He was given a continuous updraft (1 hour long) as well as total IV lasix 80mg. His work up showed an elevated BNP (baseline usually within normal range or low 100s -- now 372). A CXR showed pulmonary edema. He had minimal improvement and now will be admitted for further treatment. Acute on Chronic HFpEF. Recevied total 80mg IV lasix in the ED. He was seen in consultation by nephrology who assisted with management. He was initially continued on IV push lasix, but was changed to lasix drip with good effect. he was net negative close to 5L. His breathing status improved and he was transitioned to a higher dose of po torsemide and he is now stable for discharge home. He is encouraged to follow a low sodium diet along with his diabetic diet. Nephrology will arrange close outpatient follow up. Uncontrolled HTN. His blood pressure was elevated on arrival in the 190-200 systolic. he was continued on home regimen. imdur was added for better blood pressure control. his blood pressure has improved to 160s systolic. he was instructed to avoid cialis for now until he follow up with PCP or nephrology. CKD4. Creatinine remained within baseline. no significant change. outpatient nephrology follow up <CORNELIO Villatoro - Last Filed: 10/14/21 16:13> Time Spent with Patient Time attestation: Total time spent providing and/or coordinating discharge services: <CRONELIO Villatoro - Last Filed: 10/14/21 16:13> Discharge coordination time: Greater than 30 minutes <CORNELIO Villatoro - Last Filed: 10/14/21 16:13> Quality: Stroke Does the patient have a stroke diagnosis?: No <CORNELIO Villatoro - Last Filed: 10/14/21 16:13> Physical Exam Vital Signs: Vital Signs: Last Vital Signs Temp 97.9 F 10/14/21 11:30 Pulse 65 10/14/21 11:30 Resp 20 10/14/21 11:30 BP 168/70 H 10/14/21 11:30 Pulse Ox 95 10/14/21 11:30 BMI result Body Mass Index 35.6 <CORNELIO Villatoro - Last Filed: 10/14/21 16:13> Const: Nutritional Appearance: well nourished <CORNELIO Villatoro - Last Filed: 10/14/21 16:13> Orientation/consciousness: patient oriented x3 <CORNELIO Villatoro - Last Filed: 10/14/21 16:13> HENMT: Head: Yes normocephalic and Yes atraumatic <CORNELIO Villatoro - Last Filed: 10/14/21 16:13> Eyes: Sclerae: sclerae normal <CORNELIO Villatoro - Last Filed: 10/14/21 16:13> Resp: Effort & Inspection: normal respiratory effort and no respiratory distress <CORNELIO Villatoro - Last Filed: 10/14/21 16:13> Cardio: Rate: regular rate <CORNELIO Villatoro - Last Filed: 10/14/21 16:13> Rhythm: regular rhythm <CORNELIO Villatoro - Last Filed: 10/14/21 16:13> GI: Palpation (GI): Soft to palpation and nontender <CORNELIO Villatoro - Last Filed: 10/14/21 16:13> Neuro: General: patient oriented x3 <CORNELIO Villatoro - Last Filed: 10/14/21 16:13> DS: Data Data Completed and Pending Completed studies during hospitalization [Text1]: Procedures Excision of Duodenum, Via Natural or Artificial Opening Endoscopic, Diagnostic (02/03/21) <CORNELIO Villatoro Last Filed: 10/14/21 16:13> Labs on day of discharge: Laboratory Results - last 24 hr 10/13/21 10/13/21 10/14/21 16:16 21:41 07:23 Sodium Potassium Chloride Carbon Dioxide Anion Gap BUN Creatinine Estim Creat Clear Calc Estimated GFR POC Glucose 158 H 150 H 72 Random Glucose Calcium 12/18/21 12/18/21 08:47 11:13 Sodium 141 Potassium 3.2 L Chloride 99 Carbon Dioxide 28 Anion Gap 17 BUN 59 H Creatinine 4.51 H* Estim Creat Clear Calc 22.2 Estimated GFR 13 POC Glucose 129 H Random Glucose 146 H Calcium 7.9 L <CORNELIO Villatoro - Last Filed: 10/14/21 16:13> Discharge Plan Discharge Patient Disposition: Home, Self-Care <CORNELIO Villatoro - Last Filed: 10/14/21 16:13> Discharge Diagnosis: Acute on chronic HFpEF CKD4 <CORNELIO Villatoro - Last Filed: 10/14/21 16:13> Acute on chronic HFpEF CKD4 <Ash Lezama MD - Last Filed: 10/15/21 10:23> Referrals: Pedro Luis Guerrero MD [Physician] - 1 Week Nuvia Crook NP [Primary Care Provider] - 1 Week <CORNELIO Villatoro - Last Filed: 10/14/21 16:13> Discharge Medications: New isosorbide mononitrate 30 mg Tablet Extended Release 24 Hr 30 mg PO DAILY 30 Days Qty: 30 RF: 0 torsemide 20 mg Tablet 80 mg PO BID 30 Days Qty: 240 RF: 0 Continued insulin aspart U-100 [Novolog Flexpen U-100 Insulin] 100 unit/mL (3 mL) insulin pen See Rx Instructions subcut TID 30 Days Qty: 30 RF: 4 hydralazine 100 mg tablet 100 mg PO TID 30 Days Qty: 30 RF: 0 doxazosin 2 mg tablet 2 mg PO BID 30 Days Qty: 60 RF: 2 atorvastatin 80 mg Tablet 80 mg PO BEDTIME RF: 0 sertraline 100 mg Tablet 200 mg PO DAILY RF: 0 aspirin [Aspir-81] 81 mg Tablet,Delayed Release (Dr/Ec) 81 mg PO QAM RF: 0 gabapentin 600 mg Tablet 600 mg PO BEDTIME RF: 0 oxcarbazepine 300 mg Tablet 300 mg PO BID RF: 0 perphenazine 4 mg Tablet 4 mg PO BID RF: 0 carvedilol 25 mg Tablet 25 mg PO BID RF: 0 zolpidem 10 mg tablet 1 tab PO BEDTIME RF: 0 Flovent HFA 220 mcg/actuation HFA aerosol inhaler 2 puff PO BID RF: 0 Toujeo Max U-300 SoloStar 300 unit/mL (3 mL) insulin pen 60 unit subcut DAILY RF: 0 albuterol sulfate [Ventolin HFA] 90 mcg/actuation HFA aerosol inhaler 2 puff PO Q4H PRN (Reason: Wheezing) RF: 0 cholecalciferol (vitamin D3) 25 mcg (1,000 unit) tablet 50 mcg PO DAILY RF: 0 nifedipine 30 mg tablet extended release 120 mg PO BEDTIME RF: 0 Discontinued torsemide 100 mg tablet 100 mg PO DAILY 30 Days Qty: 30 RF: 3 tadalafil [Cialis] 10 mg tablet 10 mg PO DAILY PRN (Reason: Erectile Dysfunction) RF: 0 <CORNELIO Villatoro - Last Filed: 10/14/21 16:13> Discharge Orders: Discharge Order (Routine); Ordered 10/14/21 Ordered By: Mary Steel <CORNELIO Villatoro - Last Filed: 10/14/21 16:13> Diet: diabetic diet and low salt diet <CORNELIO Villatoro - Last Filed: 10/14/21 16:13> diabetic diet and low salt diet <Ash Lezama MD - Last Filed: 10/15/21 10:23> Activity on Discharge: As tolerated <CORNELIO Villatoro - Last Filed: 10/14/21 16:13> As tolerated <Ash Lezama MD - Last Filed: 10/15/21 10:23> Stand Alone Forms: Patient Portal Discharge page <CORNELIO Villatoro - Last Filed: 10/14/21 16:13> Care Plan Goals: see below <CORNELIO Villatoro - Last Filed: 10/14/21 16:13> Health Concerns: heart failure elevated blood pressure CKD4 <CORNELIO Villatoro - Last Filed: 10/14/21 16:13> Plan of Treatment: your dose of torsemide has been increase, please take as prescribed Imdur has been added to your regimen, please take as prescribed Do not take cialis until follow up with PCP or nephrology You will need to follow up with nephrology, if you do not hear from them next week, call their office to schedule an appointment follow a diabetic diet as well as a low salt diet <CORNELIO Villatoro - Last Filed: 10/14/21 16:13> Assessment: see discharge summary I personally saw and examined thid patient and discussed findings, assessment, plan and disposition with mid level provider and I agree with the above. DOS 10/14/21 <CORNELIO Villatoro - Last Filed: 10/14/21 16:13> Discharge Date/Time: 10/14/21 16:00 <CORNELIO Villatoro - Last Filed: 10/14/21 16:13>
== END 2021-10-14 16:00 | disposition home or self-care (01) | DRG 291 ==
LOC: HO.ED 08:39 → HO.EDOVER 09:30 → HO.IMC 23:28
PROVIDERS: Admitting Provider Family Medicine; Emergency Provider Student in an Organized Health Care Education/Training Program; PCP Nurse Practitioner Primary Care; Visit Provider Physician Assistant Medical
DX: I13.0 Hypertensive heart and chronic kidney disease with heart failure and stage 1 through stage 4 chronic kidney disease, or unspecified chronic kidney disease (principal); I50.33 Acute on chronic diastolic (congestive) heart failure; N18.4 Chronic kidney disease, stage 4 (severe); F39 Unspecified mood [affective] disorder; G47.33 Obstructive sleep apnea (adult) (pediatric); E78.5 Hyperlipidemia, unspecified; E87.6 Hypokalemia; K27.9 Peptic ulcer, site unspecified, unspecified as acute or chronic, without hemorrhage or perforation; E11.22 Type 2 diabetes mellitus with diabetic chronic kidney disease; Z20.822 Contact with and (suspected) exposure to COVID-19; Z87.891 Personal history of nicotine dependence; Z99.89 Dependence on other enabling machines and devices; Z79.4 Long term (current) use of insulin; Z79.82 Long term (current) use of aspirin; Z79.899 Other long term (current) drug therapy
CPT/HCPCS: 36415; 71046; 80048; 82803; 82947; 83880; 85025; 87635; 93005; 94640; 94660; 96375; 99285; J1940

== ENCOUNTER → 2021-10-17 09:59 | Outpatient (BNVA) | payer OTHER, SELFPAY | PROVIDERS: PCP Nurse Practitioner Primary Care; Referring Provider Nurse Practitioner Primary Care; Visit Provider Surgery Vascular Surgery | DX: Z48.812 Encounter for surgical aftercare following surgery on the circulatory system (principal); E11.22 Type 2 diabetes mellitus with diabetic chronic kidney disease; I12.9 Hypertensive chronic kidney disease with stage 1 through stage 4 chronic kidney disease, or unspecified chronic kidney disease; N18.4 Chronic kidney disease, stage 4 (severe) | CPT/HCPCS: 99212 ==

== ENCOUNTER 2021-10-18 13:12 | Inpatient (IN) | payer OTHER, SELFPAY ==
[2021-10-18] VITALS (11 sets, daily range): BP systolic 175–216; BP diastolic 65–74; PULSE 57–76; RESP 13–22; TEMP 36.6–37; O2SAT 94–99; BMI 35.5
--- NOTE | ~2021-10-18 | XR_ITS ---
EXAMINATION: XR CHEST CLINICAL INFORMATION: Shortness of breath COMPARISON: 10/11/2021 TECHNIQUE: Frontal view of the chest was obtained. FINDINGS: Overall improving infiltrates bilaterally with no significant residuals infiltrate seen. Heart size normal. No pleural disease. XR/XR chest 1V IMPRESSION: Improving essentially resolved infiltrates.
--- NOTE | 2021-10-18 13:27 | PC.NURSE ---
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
--- NOTE | 2021-10-18 13:38 | ECG_ITS ---
Test Reason : hx chf Blood Pressure : / mmHG Vent. Rate : 058 BPM Atrial Rate : 058 BPM P-R Int : 192 ms QRS Dur : 120 ms QT Int : 474 ms P-R-T Axes : 020 -39 015 degrees QTc Int : 465 ms Sinus bradycardia Left axis deviation Left ventricular hypertrophy with QRS widening ( R in aVL , [place] product ) Abnormal ECG When compared with ECG of 11-OCT-2021 03:33, No significant change was found Referred By: Generic ED Physician Electronically Signed By:GUS GOOD
[2021-10-18 14:11] LABS: MANUAL DIFF FLAG NO
[2021-10-18 14:14] LABS: Basophils Percent Auto 0.3 % (0-2); Eosinophils Absolute Auto 0.2 X10*3/uL (0.0-0.4); Eosinophils Percent Auto 3.4 % (0-4); Hematocrit 27.3 % (42.0-52.0); Hemoglobin 9.3 g/dl (14.0-18.0); Imm Gran Abs Auto 0.02 X10*3/uL (0.00-0.03); Imm Gran Pct Auto 0.3 % (0.0-0.4); Mean Corpuscular HGB Conc 34.1 g/dl (31.0-36.0); Mean Corpuscular Hemoglobin 30.1 pg (27.0-33.0); Mean Corpuscular Volume 88.3 fL (80.0-98.0); Mean Platelet Volume 11.6 fL (9.4-12.4); Monocytes Absolute Auto 0.5 X10*3/uL (0.1-1.2); Monocytes Percent Auto 7.5 % (2-11); Neutrophils Absolute Auto 4.8 x10*3/uL (2.0-8.3); Neutrophils Percent Auto 73.5 % (45-73); Platelet Count 152 X10*3/uL (160-400); Red Blood Count 3.09 X10*6/uL (4.60-5.80); Red Cell Distribution Width 13.2 % (11.0-16.0); White Blood Count 6.5 X10*3/uL (4.8-10.8)
[2021-10-18 14:30] LABS: Anion Gap 17 (12-20); Blood Urea Nitrogen 57 mg/dL (9-16); Calcium 8.1 mg/dL (8.4-10.2); Carbon Dioxide 26 mmol/L (22-29); Chloride 105 mmol/L (96-108); Creatinine Clr Calc Pharmacy 24.4; Estimated Glomerular Filt Rate 15; Glucose Random 106 mg/dL (60-115); Potassium 3.4 mmol/L (3.3-5.1); Sodium 145 mmol/L (135-145)
[2021-10-18 14:32] LABS: B Type Natriuretic Peptide 378 pg/mL (<100); Troponin-I High Sensitivity 40.5 ng/L (<3.5-35.0)
--- NOTE | 2021-10-18 18:16 | ED.GENADULT ---
HPI - General Adult General Chief complaint: Dyspnea Stated complaint: Asthma Time Seen by Provider: 10/18/21 17:56 Source: patient and old records reviewed Limitations: no limitations History of Present Illness HPI narrative: Patient with a history of end-stage renal disease, but not yet on dialysis. Complaining of shortness of breath the past 2 days. He was seen here 1 week ago and diagnosed with non COVID viral pneumonia. He felt better with treatment but started getting short of breath again yesterday. He has also been seen in the past for hypertensive urgency and congestive heart failure. He states he took his morning blood pressure medications but did not take his afternoon meds as he has been here in the waiting room. He denies chest pain. Mild headache. No weakness numbness or paresthesias Nausea this morning without vomiting No current nausea. No diarrhea or constipation or abdominal pain. He still makes urine. He does complain of bilateral leg edema over the last few days Related Data Home Medications Medication Instructions Recorded Confirmed aspirin 81 mg tablet,delayed 81 mg PO QAM 07/25/20 10/11/21 release (Aspir-) atorvastatin 80 mg tablet 80 mg PO BEDTIME 07/25/20 10/11/21 carvedilol 25 mg tablet 25 mg PO BID 07/25/20 10/11/21 gabapentin 600 mg tablet 600 mg PO BEDTIME 07/25/20 10/11/21 oxcarbazepine 300 mg tablet 300 mg PO BID 07/25/20 10/11/21 perphenazine 4 mg tablet 4 mg PO BID 07/25/20 10/11/21 sertraline 100 mg tablet 200 mg PO DAILY 07/25/20 10/11/21 zolpidem 10 mg tablet 1 tab PO BEDTIME 01/23/21 10/11/21 fluticasone propionate 220 2 puff PO BID 08/18/21 10/11/21 mcg/actuation HFA aerosol inhaler (Flovent HFA) insulin glargine U-300 conc 300 60 unit SUBCUT DAILY 09/25/21 10/11/21 unit/mL (3 mL) subcutaneous pen (Toujeo Max U-300 SoloStar) albuterol sulfate 90 mcg/actuation 2 puff PO Q4H PRN 10/09/21 10/11/21 aerosol inhaler (Ventolin HFA) cholecalciferol (vitamin D3) 25 50 mcg PO DAILY 10/09/21 10/11/21 mcg (1,000 unit) tablet nifedipine 30 mg tablet,extended 120 mg PO BEDTIME tab 10/09/21 10/11/21 release Previous Rx's Medication Instructions Recorded insulin aspart U-100 100 unit/mL See Rx Instructions SUBCUT TID 30 06/05/21 (3 mL) subcutaneous pen (Novo Days #30 ml Flexpen U-100 Insulin aspart) hydralazine 100 mg tablet 100 mg PO TID 30 Days #30 tab 08/30/21 doxazosin 2 mg tablet 2 mg PO BID 30 Days #60 tab 10/05/21 isosorbide mononitrate 30 mg 30 mg PO DAILY 30 Days #30 tab 10/14/21 tablet,extended release 24 hr torsemide 20 mg tablet 80 mg PO BID 30 Days #240 tab 10/14/21 Allergies Allergy/AdvReac Type Severity Reaction Status Date / Time No Known Allergies Allergy Verified 10/18/21 13:32 Review of Systems Constitutional: Constitutional: Denies fatigue and Denies fever(s) Cardiovascular: Comments: No chest pain Respiratory: Comments: Dyspnea for 2 days Gastrointestinal: Comments: No nausea vomiting diarrhea constipation Musculoskeletal: Comments: Bilateral pedal edema the past 2 days Integumentary/Breasts: Comments: No rash Neurologic: Comments: No weakness Endocrine: Endocrine: Denies fatigue PMFSH Past Medical History Medical History Abnormal biopsy of kidney Anxiety Asthma CHF (congestive heart failure) Chronic kidney disease, stage 4 (severe) COPD (chronic obstructive pulmonary disease) Depression Depression with anxiety Diabetes mellitus with hyperglycemia, with long-term current use of insulin Diverticulitis Elevated cholesterol Erectile dysfunction History of alcohol abuse History of headache HTN (hypertension) Hx of pancreatitis Hyperglycemia Hypertension Hypertensive crisis Hypertriglyceridemia On beta doron at home Pancreatitis Peptic ulcer Proteinuria Sleep apnea Type 2 diabetes mellitus with chronic kidney disease Type 2 diabetes mellitus with hyperglycemia, with long-term current use of insulin Type 2 diabetes mellitus with polyneuropathy Surgical History History of surgery Hx of colonoscopy Hx of right inguinal hernia repair Family History Family History Mother Diabetes Social History Social History Household Members: None Housing: Apartment Are you a primary hospice care transitions coordinator to a significant other at home: No Do you presently have visiting nurse or other home services: Yes ([employer]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[employer]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 [employer]) Alcohol intake: never Patient Tobacco Use Status: Former Tobacco user Quit Date: 2017 Tobacco use type: Cigarette Years Smoked: 30 Second Hand Smoke Exposure: Yes Advance Directives: No Advance Directives Information Provided: No service: No Current occupational status: retired Physical Exam Vital Signs: Vital Signs: Last Vital Signs Temp 97.8 F 10/18/21 19:47 Pulse 66 10/18/21 21:01 Resp 21 H 10/18/21 21:01 BP 216/74 H 10/18/21 21:01 Pulse Ox 94 10/18/21 21:01 BMI result Body Mass Index 35.5 Const: Other: Awake alert no acute distress Resp: Other: Clear and equal bilaterally without wheezes rales or rhonchi, but diminished Cardio: Other: Regular rate and rhythm without murmurs rubs or gallops GI: Other: Soft nontender nondistended. Normoactive bowel sounds Skin: Other: Warm pink and dry without rash Neuro: Other: No focal weakness Extrem: Other: 1+ bilateral pedal edema without calf tenderness Course Course Course Narrative: Dyspnea Pulmonary edema Hypertensive urgency Pneumonia Bronchitis Asthma exacerbation Blood pressure is significantly elevated at 2 12/74. Will treat with will be believe are his afternoon medications. He typically takes hydralazine p.o. both given IV now. Will also treat with Lasix IV for his pedal edema and possible fluid overload. Workup in the emergency department shows chest x-ray has improved since his last 1 1 week ago. Lab work shows normal white count. His hemoglobin is 9.3 which is baseline for this patient Chemistries show creatinine of 4.1 which is also baseline. Troponin is 40.5 which is slightly higher than his prior baselines. I will repeat troponin. 9:05 p.m.. Repeat troponin is 39.5. Blood pressure is still markedly elevated at 216/74 despite p.o. treatment. We will attempt again IV placement so we can treat with IV antihypertensive medication. Furosemide 80 mg IV ordered as well as hydralazine 20 mg IV. Patient is unable to tolerate standing up without getting extremely dyspneic with a respiratory rate over 30. He maintained his oxygen saturation at 94%, but is in clear respiratory distress just with minimal effort of standing. Anticipate hospitalization for dyspnea secondary to asthma and hypertensive urgency. Medical Decision Making Lab Data Result diagrams: 10/18/21 14:06 10/18/21 14:06 Labs: Lab Results 10/18/21 10/18/21 10/18/21 Range/Units 14:06 14:06 14:06 WBC 6.5 (4.8-10.8) X10*3/uL RBC 3.09 L (4.60-5.80) X10*6/uL Hgb 9.3 L (14.0-18.0) g/dl Hct 27.3 L (42.0-52.0) % MCV 88.3 (80.0-98.0) fL MCH 30.1 (27.0-33.0) pg MCHC 34.1 (31.0-36.0) g/dl RDW 13.2 (11.0-16.0) % Plt Count 152 L (160-400) X10*3/uL MPV 11.6 (9.4-12.4) fL Immature Gran % (Auto) 0.3 (0.0-0.4) % Neut % (Auto) 73.5 H (45-73) % Lymph % (Auto) 15.0 L (20-40) % Dubois % (Auto) 7.5 (2-11) % Eos % (Auto) 3.4 (0-4) % Baso % (Auto) 0.3 (0-2) % Lymph # (Auto) 1.0 L (1.2-4.9) X10*3/uL Dubois # (Auto) 0.5 (0.1-1.2) X10*3/uL Eos # (Auto) 0.2 (0.0-0.4) X10*3/uL Baso # (Auto) 0.0 (0.0-0.2) X10*3/uL Abs Immat Gran (auto) 0.02 (0.00-0.03) X10*3/uL Absolute Neuts (auto) 4.8 (2.0-8.3) x10*3/uL Absolute Nucleated RBC 0.000 (0.0-0.012) X10*3/uL Nucleated RBC % (auto) 0.0 (0.0-0.2) /100WBC Sodium 145 (135-145) mmol/L Potassium 3.4 (3.3-5.1) mmol/L Chloride 105 (96-108) mmol/L Carbon Dioxide 26 (22-29) mmol/L Anion Gap 17 (12-20) BUN 57 H (9-16) mg/dL Creatinine 4.10 H* (0.5-1.4) mg/dL Estim Creat Clear Calc 24.4 Estimated GFR 15 Random Glucose 106 (60-115) mg/dL Calcium 8.1 L (8.4-10.2) mg/dL Troponin I High Sens 40.5 H (<3.5-35.0) ng/L B-Natriuretic Peptide 378 H (<100) pg/mL Influenza Type A (PCR) (Negative) Influenza Type B (PCR) (Negative) RSV RNA Qual (PCR) (Negative) SARS-CoV-2 RNA (RT-PCR) (Negative) 10/18/21 10/18/21 Range/Units 19:32 19:46 WBC (4.8-10.8) X10*3/uL RBC (4.60-5.80) X10*6/uL Hgb (14.0-18.0) g/dl Hct (42.0-52.0) % MCV (80.0-98.0) fL MCH (27.0-33.0) pg MCHC (31.0-36.0) g/dl RDW (11.0-16.0) % Plt Count (160-400) X10*3/uL MPV (9.4-12.4) fL Immature Gran % (Auto) (0.0-0.4) % Neut % (Auto) (45-73) % Lymph % (Auto) (20-40) % Dubois % (Auto) (2-11) % Eos % (Auto) (0-4) % Baso % (Auto) (0-2) % Lymph # (Auto) (1.2-4.9) X10*3/uL Dubois # (Auto) (0.1-1.2) X10*3/uL Eos # (Auto) (0.0-0.4) X10*3/uL Baso # (Auto) (0.0-0.2) X10*3/uL Abs Immat Gran (auto) (0.00-0.03) X10*3/uL Absolute Neuts (auto) (2.0-8.3) x10*3/uL Absolute Nucleated RBC (0.0-0.012) X10*3/uL Nucleated RBC % (auto) (0.0-0.2) /100WBC Sodium (135-145) mmol/L Potassium (3.3-5.1) mmol/L Chloride (96-108) mmol/L Carbon Dioxide (22-29) mmol/L Anion Gap (12-20) BUN (9-16) mg/dL Creatinine (0.5-1.4) mg/dL Estim Creat Clear Calc Estimated GFR Random Glucose (60-115) mg/dL Calcium (8.4-10.2) mg/dL Troponin I High Sens 39.5 H (<3.5-35.0) ng/L B-Natriuretic Peptide (<100) pg/mL Influenza Type A (PCR) NEGATIVE (Negative) Influenza Type B (PCR) NEGATIVE (Negative) RSV RNA Qual (PCR) NEGATIVE (Negative) SARS-CoV-2 RNA (RT-PCR) NEGATIVE (Negative) Discharge Plan Discharge Patient Disposition: Admitted As Inpatient Prescriptions: No Action insulin aspart U-100 [Novolog Flexpen U-100 Insulin] 100 unit/mL (3 mL) insulin pen See Rx Instructions subcut TID 30 Days Qty: 30 RF: 4 hydralazine 100 mg tablet 100 mg PO TID 30 Days Qty: 30 RF: 0 doxazosin 2 mg tablet 2 mg PO BID 30 Days Qty: 60 RF: 2 atorvastatin 80 mg Tablet 80 mg PO BEDTIME RF: 0 sertraline 100 mg Tablet 200 mg PO DAILY RF: 0 aspirin [Aspir-81] 81 mg Tablet,Delayed Release (Dr/Ec) 81 mg PO QAM RF: 0 gabapentin 600 mg Tablet 600 mg PO BEDTIME RF: 0 oxcarbazepine 300 mg Tablet 300 mg PO BID RF: 0 perphenazine 4 mg Tablet 4 mg PO BID RF: 0 carvedilol 25 mg Tablet 25 mg PO BID RF: 0 zolpidem 10 mg tablet 1 tab PO BEDTIME RF: 0 Flovent HFA 220 mcg/actuation HFA aerosol inhaler 2 puff PO BID RF: 0 Toujeo Max U-300 SoloStar 300 unit/mL (3 mL) insulin pen 60 unit subcut DAILY RF: 0 isosorbide mononitrate 30 mg Tablet Extended Release 24 Hr 30 mg PO DAILY 30 Days Qty: 30 RF: 0 torsemide 20 mg Tablet 80 mg PO BID 30 Days Qty: 240 RF: 0 albuterol sulfate [Ventolin HFA] 90 mcg/actuation HFA aerosol inhaler 2 puff PO Q4H PRN (Reason: Wheezing) RF: 0 cholecalciferol (vitamin D3) 25 mcg (1,000 unit) tablet 50 mcg PO DAILY RF: 0 nifedipine 30 mg tablet extended release 120 mg PO BEDTIME RF: 0
[2021-10-18] MEDS: Albuterol/Iprat 2.5/0.5MG 3 ML AMPUL.NEB INHALE (18:39)
--- NOTE | 2021-10-18 18:45 | PC.NURSE ---
PT IS DIFFICULT TO GET IV ACCESS, I ATTEMPTED AND UN ATTEMPTED PROVIDER AWARE THAT PT IS NOW REFUSING ACCESS. WILL CHANGE MEDICATIONS TO PO
[2021-10-18] MEDS: hydrALAZINE HCl 50 MG TABLET 100 MG PO (19:20)
[2021-10-18] MEDS: NIFEdipine ER 30 MG TAB.ER.24 PO (19:20)
[2021-10-18] MEDS: predniSONE 20 MG TABLET 60 MG PO (19:21)
[2021-10-18] MEDS: Furosemide 40 MG TABLET 80 MG PO (19:21)
--- NOTE | 2021-10-18 20:00 | PC.NURSE ---
pt medicated as per emar. repeat trop obtained at this time. will continue to monitor pt.
[2021-10-18 20:10] LABS: Troponin-I High Sensitivity 39.5 ng/L (<3.5-35.0)
[2021-10-18 20:23] LABS: Influenza A PCR NEGATIVE (Negative); Influenza B PCR NEGATIVE (Negative); Resp Syncy Virus RNA Qual PCR NEGATIVE (Negative); SARS COV2 PCR INHOUSE NEGATIVE (Negative)
--- NOTE | 2021-10-18 21:00 | PC.NURSE ---
pt VS obtained. pt stool up and felt SOB and refused to ambulate d/t +sob. MD aware and ordered pt to have an IV and will be admitted.
[2021-10-18] MEDS: hydrALAZINE HCl 20 MG/ML VIAL IVPUSH (21:35)
[2021-10-18] MEDS: Furosemide 100 MG/10 ML VIAL 80 MG IVPUSH (21:35)
--- NOTE | 2021-10-18 21:42 | PC.NURSE ---
pt medicated as per emar. Pt awaiting admission. will continue to monitor pt.
--- NOTE | 2021-10-18 22:01 | P.HPHOSP_ITS ---
History of Present Illness Date of Service: 10/18/21 Chief Complaint: Shortness of breath/generalized weakness 61-year-old male with a past medical history of hypertension, hyperlipidemia, diabetes, HFpEFf, CKD stage 4, asthma/COPD, BRENDA, anxiety, depression, history of pancreatitis presented to the hospital with a chief complaint of generalized weakness/shortness of breath. Patient reports that he has been having shortness of breath and generalized weakness going on for the past 1 week. His shortness of breath worsens on exertion. Mentioned that he has been complaint with his home medications. Denies any fever chills and cough. Denies any chest pain or palpitations. Mentioned that he is getting out of breath with minimal activity; hence presented to the hospital for further evaluation. Denies any numbness tingling or focal weakness. Denies any falls. Denies any urinary symptoms. Review of all other systems is negative except mentioned above ER course: Per ER team patient on presentation noted to have crackles; findings consistent with acute CHF; patient also noted to have elevated blood pressure with systolic in 200s; given IV Lasix and hydralazine with slight improvement in blood pressure. After Lasix patient put out leg 300 cc of urine. Respiratory status improved. When tried to ambulate the patient patient became tachypneic. Admitted to the hospital for acute CHF exacerbation. [facility] Medical History Abnormal biopsy of kidney Anxiety Asthma CHF (congestive heart failure) Chronic kidney disease, stage 4 (severe) COPD (chronic obstructive pulmonary disease) Depression Depression with anxiety Diabetes mellitus with hyperglycemia, with long-term current use of insulin Diverticulitis Elevated cholesterol Erectile dysfunction History of alcohol abuse History of headache HTN (hypertension) Hx of pancreatitis Hyperglycemia Hypertension Hypertensive crisis Hypertriglyceridemia On beta doron at home Pancreatitis Peptic ulcer Proteinuria Sleep apnea Type 2 diabetes mellitus with chronic kidney disease Type 2 diabetes mellitus with hyperglycemia, with long-term current use of insulin Type 2 diabetes mellitus with polyneuropathy Family History Mother Diabetes Pertinent family history: As mentioned above Surgical History History of surgery Hx of colonoscopy Hx of right inguinal hernia repair Social History Household Members: None Housing: Apartment Are you a primary workforce investment act career manager to a significant other at home: No Do you presently have visiting nurse or other home services: 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) Alcohol intake: never Patient Tobacco Use Status: Former Tobacco user Quit Date: 2017 Tobacco use type: Cigarette Years Smoked: 30 Second Hand Smoke Exposure: Yes Advance Directives: No Advance Directives Information Provided: No service: No Current occupational status: retired Meds Allergies Allergy/AdvReac Type Severity Reaction Status Date / Time No Known Allergies Allergy Verified 10/18/21 13:32 Active Medications: Current Medications Acetaminophen (Acetaminophen 325 Mg Tablet) 650 mg PO Q6H PRN PRN Reason: Pain, Mild (Pain Scale 1-3) Dextrose (Dextrose 50 % 25 Gm/50 Ml Vial) 25 gm IVPUSH Q15M PRN; Protocol PRN Reason: per Hypoglycemia Standing Ord. Enoxaparin Sodium (Enoxaparin Sodium 30 Mg/0.3 Ml Syringe) 30 mg SUBCUT Q24H THAO Furosemide (Furosemide 40 Mg/4 Ml Vial) 80 mg IVPUSH BIDWM THAO; Protocol Glucose (Glucose Gel 15 Gm Gel..Gram.) 15 gm PO Q15M PRN; Protocol PRN Reason: per Hypoglycemia Standing Ord. Insulin Glargine (Insulin Glargine,Hum.Rec.Anlog 100 Unit/Ml 10 Ml Vial) 20 unit SUBCUT BEDTIME THAO Insulin Human Lispro (Insulin Lispro 100 Unit/Ml 3 Ml Vial) 0 unit SUBCUT QIDACHS THAO; Protocol Melatonin (Melatonin 3 Mg Tablet) 6 mg PO BEDTIME PRN PRN Reason: Insomnia Pharmacy Consult (Consult Rx Perform Med Rec) 1 each MISCELLANE ONCE PRN PRN Reason: Consult order Senna (Sennosides 8.6 Mg Tablet) 17.2 mg PO BEDTIME PRN PRN Reason: Constipation Sodium Chloride (0.9 % Sodium Chloride Flush 3 Ml Syringe) 3 ml IVFLUSH QSHIFT [facility] Home Medications Medication Instructions Recorded Confirmed Last Taken Type aspirin 81 mg tablet,delayed 81 mg PO QAM 07/25/20 10/11/21 10/10/21 History release (Aspir-) atorvastatin 80 mg tablet 80 mg PO BEDTIME 07/25/20 10/11/21 10/09/21 History carvedilol 25 mg tablet 25 mg PO BID 07/25/20 10/11/21 10/10/21 History gabapentin 600 mg tablet 600 mg PO BEDTIME 07/25/20 10/11/21 10/09/21 History oxcarbazepine 300 mg tablet 300 mg PO BID 07/25/20 10/11/21 10/10/21 History perphenazine 4 mg tablet 4 mg PO BID 07/25/20 10/11/21 10/10/21 History sertraline 100 mg tablet 200 mg PO DAILY 07/25/20 10/11/21 10/10/21 History zolpidem 10 mg tablet 1 tab PO BEDTIME 01/23/21 10/11/21 10/09/21 History fluticasone propionate 220 2 puff PO BID 08/18/21 10/11/21 10/10/21 History mcg/actuation HFA aerosol inhaler (Flovent HFA) insulin glargine U-300 conc 300 60 unit SUBCUT DAILY 09/25/21 10/11/21 10/10/21 History unit/mL (3 mL) subcutaneous pen (Toujeo Max U-300 SoloStar) albuterol sulfate 90 mcg/actuation 2 puff PO Q4H PRN 10/09/21 10/11/21 10/10/21 History aerosol inhaler (Ventolin HFA) cholecalciferol (vitamin D3) 25 50 mcg PO DAILY 10/09/21 10/11/21 10/10/21 History mcg (1,000 unit) tablet nifedipine 30 mg tablet,extended 120 mg PO BEDTIME tab 10/09/21 10/11/21 10/09/21 History release Physical Exam Vital Signs and Narrative: Vital Signs: Last Vital Signs Temp 97.8 F 10/18/21 19:47 Pulse 72 10/18/21 21:35 Resp 21 H 10/18/21 21:01 BP 216/74 H 10/18/21 21:35 Pulse Ox 94 10/18/21 21:01 BMI result Body Mass Index 35.5 Gen: Appears be in no acute distress. Breathing comfortably. Speaking in full sentences HEENT: NCAT, Moist mucosa. Pulmonary: Coarse breath sounds, bilateral crackles CVS: Normal S1-S2 Abdomen: BS+, Soft, Nontender Extremities: Warm well perfused Neuro: Alert and awake. Results Labs CBC and Chem 7: 10/18/21 14:06 10/18/21 14:06 Labs: Laboratory Results - last 24 hr 10/18/21 10/18/21 10/18/21 14:06 14:06 14:06 MCV 88.3 MCH 30.1 MCHC 34.1 RDW 13.2 Plt Count 152 L MPV 11.6 Immature Gran % (Auto) 0.3 Neut % (Auto) 73.5 H Lymph % (Auto) 15.0 L [place] % (Auto) 7.5 Eos % (Auto) 3.4 Baso % (Auto) 0.3 Lymph # (Auto) 1.0 L [place] # (Auto) 0.5 Eos # (Auto) 0.2 Baso # (Auto) 0.0 Abs Immat Gran (auto) 0.02 Absolute Neuts (auto) 4.8 Absolute Nucleated RBC 0.000 Nucleated RBC % (auto) 0.0 Anion Gap 17 Estim Creat Clear Calc 24.4 Estimated GFR 15 Random Glucose 106 Calcium 8.1 L Troponin I High Sens 40.5 H B-Natriuretic Peptide 378 H Influenza Type A (PCR) Influenza Type B (PCR) RSV RNA Qual (PCR) SARS-CoV-2 RNA (RT-PCR) 10/18/21 10/18/21 19:32 19:46 MCV MCH MCHC RDW Plt Count MPV Immature Gran % (Auto) Neut % (Auto) Lymph % (Auto) [place] % (Auto) Eos % (Auto) Baso % (Auto) Lymph # (Auto) [place] # (Auto) Eos # (Auto) Baso # (Auto) Abs Immat Gran (auto) Absolute Neuts (auto) Absolute Nucleated RBC Nucleated RBC % (auto) Anion Gap Estim Creat Clear Calc Estimated GFR Random Glucose Calcium Troponin I High Sens 39.5 H B-Natriuretic Peptide Influenza Type A (PCR) NEGATIVE Influenza Type B (PCR) NEGATIVE RSV RNA Qual (PCR) NEGATIVE SARS-CoV-2 RNA (RT-PCR) NEGATIVE Imaging Radiologist's Impressions: Impressions Chest X-Ray 10/18/21 14:34 IMPRESSION: Improving essentially resolved infiltrates. Assessment and Plan (1) Acute on chronic heart failure with preserved ejection fraction (HFpEF): Status: Acute (2) Type 2 diabetes mellitus with unspecified complications: Status: Acute (3) Hypertensive urgency: Status: Acute (4) Chronic kidney disease, stage 4 (severe): Status: Acute 61-year-old male with a past medical history of hypertension, hyperlipidemia, diabetes, HFpEFf, CKD stage 4, asthma/COPD, BRENDA, anxiety, depression, history of pancreatitis presented to the hospital with a chief complaint of generalized weakness/shortness of breath. Noted to be in acute CHF exacerbation/hypertensive urgency. Admitted for further management. Acute CHF exacerbation: Echocardiogram from July 2021 showed EF of 65-70%, severe LVH, normal RV function, mild dilation of ascending aorta. Continue Lasix 80 mg IV b.i.d.. Telemetry Patient has indeterminate troponins-likely from demand. Patient denies any chest pain. EKG nonischemic. Cardiology consult Hypertensive urgency: Patient denies any headaches or blurry vision. Exam nonfocal. Received IV hydralazine in the ER. Will continue home nifedipine 120 mg at bedtime Continue home carvedilol 25 mg b.i.d., Imdur 30 mg daily Diabetes: Hold home insulin regimen. Will keep the patient on Lantus 20 units and insulin sliding scale. Monitor fingerstick glucose. Adjust insulins as needed. History of CKD: Patient's creatinine at baseline of 4.1. Monitor renal func tion while diuresing. Patient is still making urine. Nephrology follow-up. History of asthma/COPD: Nohemi p.rJose AlbertonJose Alberto. History of anxiety/depression: Continue home medications. DVT prophylaxis: Lovenox Code status: Full code Quality Stroke Does the patient have a stroke diagnosis?: No VTE Prior VTE?: No VTE Risk Level:: Medical - moderate - high VTE Device Contraindication: Treatment Not Indicated VTE Drug Contraindication: N/A - Med Ordered
--- NOTE | 2021-10-18 22:07 | PC.NURSE ---
med rec being done by pharmacy.
--- NOTE | 2021-10-18 22:28 | PC.NURSE ---
pt ambulated to restroom and when returned to room, po 96% but pt states i feel really short of breath
[2021-10-18] MEDS: Enoxaparin Sodium 30 MG/0.3 ML SYRINGE SUBCUT (22:59)
--- NOTE | 2021-10-18 22:59 | PC.NURSE ---
Pt requesting leti tx, Dr Presley aware, to order.
--- NOTE | 2021-10-18 23:19 | PC.NURSE ---
report given to overflow unit. Pt to unit on stretcher.
[2021-10-19] VITALS (8 sets, daily range): BP systolic 119–175; BP diastolic 51–70; PULSE 55–65; RESP 12; O2SAT 99
[2021-10-19 06:53] LABS: MANUAL DIFF FLAG NO
[2021-10-19 06:59] LABS: Basophils Percent Auto 0.1 % (0-2); Hematocrit 30.4 % (42.0-52.0); Hemoglobin 10.4 g/dl (14.0-18.0); Imm Gran Abs Auto 0.03 X10*3/uL (0.00-0.03); Imm Gran Pct Auto 0.4 % (0.0-0.4); Lymphocytes Absolute Auto 0.7 X10*3/uL (1.2-4.9); Lymphocytes Percent Auto 8.2 % (20-40); Mean Corpuscular HGB Conc 34.2 g/dl (31.0-36.0); Mean Corpuscular Hemoglobin 30.1 pg (27.0-33.0); Mean Corpuscular Volume 88.1 fL (80.0-98.0); Mean Platelet Volume 11.9 fL (9.4-12.4); Monocytes Absolute Auto 0.3 X10*3/uL (0.1-1.2); Monocytes Percent Auto 3.8 % (2-11); Neutrophils Percent Auto 87.5 % (45-73); Platelet Count 163 X10*3/uL (160-400); Red Blood Count 3.45 X10*6/uL (4.60-5.80); Red Cell Distribution Width 13.2 % (11.0-16.0)
[2021-10-19 07:18] LABS: Anion Gap 17 (12-20); Blood Urea Nitrogen 59 mg/dL (9-16); Calcium 8.3 mg/dL (8.4-10.2); Carbon Dioxide 28 mmol/L (22-29); Chloride 102 mmol/L (96-108); Creatinine Clr Calc Pharmacy 23.3; Estimated Glomerular Filt Rate 14; Glucose Random 150 mg/dL (60-115); Potassium 3.5 mmol/L (3.3-5.1); Sodium 143 mmol/L (135-145)
[2021-10-19 08:45] LABS: Glucose, Whole Blood 155 mg/dL (60-115)
[2021-10-19] MEDS: Omeprazole 40 MG CAPSULE.DR PO (09:33)
[2021-10-19] MEDS: Doxazosin Mesylate 2 MG TABLET PO ×2 (09:33→21:43)
[2021-10-19] MEDS: Perphenazine 4 MG TABLET PO ×2 (09:36→21:44)
[2021-10-19] MEDS: Cholecalciferol (Vitamin D3) 25 MCG TABLET 50 MCG PO (09:36)
[2021-10-19] MEDS: Furosemide 40 MG/4 ML VIAL 80 MG IVPUSH ×2 (09:36→19:59)
[2021-10-19] MEDS: Sertraline HCL 100 MG TABLET 200 MG PO (09:36)
[2021-10-19] MEDS: Aspirin Enteric Coated 81 MG TABLET.DR PO (09:36)
[2021-10-19] MEDS: OXcarbazepine 300 MG TABLET PO ×2 (09:37→21:40)
[2021-10-19] MEDS: Insulin Lispro 100 UNIT/ML 3 ML VIAL SUBCUT (09:37)
[2021-10-19] MEDS: hydrALAZINE HCl 50 MG TABLET 100 MG PO ×3 (09:37→21:43)
[2021-10-19] MEDS: carvediloL 25 MG TABLET PO ×2 (09:37→21:40)
[2021-10-19] MEDS: 0.9 % Sodium Chloride Flush 3 ML SYRINGE IVFLUSH (09:38)
--- NOTE | 2021-10-19 10:02 | P.CONCA_ITS ---
History of Present Illness History of Present Illness Date of Service: 10/19/21 Chief complaint: CHF exacerbation Narrative: This is a cardiology consultation regarding congestive heart failure. Patient has a history of hypertension, dyslipidemia, diabetes, chronic heart failure with preserved ejection fraction, chronic kidney disease. Also described to have COPD and obstructive sleep apnea. Presenting complaints are generalized weakness and shortness of breath. For the last few days, he has been having increasing shortness of breath that worsens with exertion and that led to the hospitalization. No anginal-type complaints. No significant leg swelling. No dizzy spells or syncopal episodes. From the cardiac standpoint we have been asked to assess him for congestive heart failure. He is seen in the office intermittently. Last appointment was a few weeks ago but prior to that more than year and half ago. Based on that note, poorly controlled hypertension, advanced renal dysfunction. At that time, he had described intermittent shortness of breath suspected to be from uncontrolled hypertension itself. Review of Systems Review of Systems: Yes all other systems are reviewed and are negative Cardiovascular: Cardiovascular: Reports as per HPI, Reports no additional cardiovascular complaints, Denies acrocyanosis, Denies cool extremities, Denies painful fingertips, Denies chest pain, Denies chest pain at rest, Denies diaphoresis, Denies syncope, Denies irregular heart rhythm, Denies claudication, Denies leg edema, Denies lightheadedness, Denies palpitations and Reports dyspnea Respiratory: Respiratory: Reports dyspnea Neurologic: Denies syncope Endocrine: Endocrine: Denies palpitations PMFSH Past Medical History Medical History Abnormal biopsy of kidney Anxiety Asthma CHF (congestive heart failure) Chronic kidney disease, stage 4 (severe) COPD (chronic obstructive pulmonary disease) Depression Depression with anxiety Diabetes mellitus with hyperglycemia, with long-term current use of insulin Diverticulitis Elevated cholesterol Erectile dysfunction History of alcohol abuse History of headache HTN (hypertension) Hx of pancreatitis Hyperglycemia Hypertension Hypertensive crisis Hypertriglyceridemia On beta doron at home Pancreatitis Peptic ulcer Proteinuria Sleep apnea Type 2 diabetes mellitus with chronic kidney disease Type 2 diabetes mellitus with hyperglycemia, with long-term current use of insulin Type 2 diabetes mellitus with polyneuropathy Family History Family History Mother Diabetes Surgical History Surgical History History of surgery Hx of colonoscopy Hx of right inguinal hernia repair Social History Social History Household Members: None Housing: Apartment Are you a primary weekend caregiver to a significant other at home: No Do you presently have visiting nurse or other home services: Yes (PERSONNEL SCHEDULER) Alcohol intake: never Patient Tobacco Use Status: Former Tobacco user Quit Date: 2017 Tobacco use type: Cigarette Years Smoked: 30 Second Hand Smoke Exposure: Yes Advance Directives: No Advance Directives Information Provided: No service: No Current occupational status: retired Meds Allergies Allergy/AdvReac Type Severity Reaction Status Date / Time No Known Allergies Allergy Verified 10/18/21 13:32 Active Medications: Current Medications Acetaminophen (Acetaminophen 325 Mg Tablet) 650 mg PO Q6H PRN PRN Reason: Pain, Mild (Pain Scale 1-3) Albuterol/Ipratropium (Albuterol/Iprat 2.5/0.5mg 3 Ml Ampul.Neb) 3 ml INHALE RQ4H PRN PRN Reason: Shortness of Breath/Wheezing Aspirin (Aspirin Enteric Coated 81 Mg Tablet.) 81 mg PO DAILY THAO Last Admin: 10/19/21 09:36 Dose: 81 mg Documented by: Atorvastatin Calcium (Atorvastatin Calcium 80 Mg Tablet) 80 mg PO BEDTIME THAO Carvedilol (Carvedilol 25 Mg Tablet) 25 mg PO BID THAO; Protocol Last Admin: 10/19/21 09:37 Dose: 25 mg Documented by: Dextrose (Dextrose 50 % 25 Gm/50 Ml Vial) 25 gm IVPUSH Q15M PRN; Protocol PRN Reason: per Hypoglycemia Standing Ord. Doxazosin Mesylate (Doxazosin Mesylate 2 Mg Tablet) 2 mg PO BID THAO; Protocol Last Admin: 10/19/21 09:33 Dose: 2 mg Documented by: Enoxaparin Sodium (Enoxaparin Sodium 30 Mg/0.3 Ml Syringe) 30 mg SUBCUT Q24H THAO Last Admin: 10/18/21 22:59 Dose: 30 mg Documented by: Furosemide (Furosemide 40 Mg/4 Ml Vial) 80 mg IVPUSH BIDWM THAO; Protocol Last Admin: 10/19/21 09:36 Dose: 80 mg Documented by: Gabapentin (Gabapentin 600 Mg Tablet) 600 mg PO BEDTIME THAO Glucose (Glucose Gel 15 Gm Gel..Gram.) 15 gm PO Q15M PRN; Protocol PRN Reason: per Hypoglycemia Standing Ord. Hydralazine HCl (Hydralazine Hcl 50 Mg Tablet) 100 mg PO TID [facility]; Protocol Last Admin: 10/19/21 09:37 Dose: 100 mg Documented by: Insulin Glargine (Insulin Glargine,Hum.Rec.Anlog 100 Unit/Ml 10 Ml Vial) 20 unit SUBCUT BEDTIME [facility] Insulin Human Lispro (Insulin Lispro 100 Unit/Ml 3 Ml Vial) 0 unit SUBCUT QIDACHS [facility]; Protocol Last Admin: 10/19/21 09:37 Dose: 2 unit Documented by: Isosorbide Mononitrate (Isosorbide Mononitrate 30 Mg Tab.Er.24h) 30 mg PO DAILY [facility]; Protocol Melatonin (Melatonin 3 Mg Tablet) 6 mg PO BEDTIME PRN PRN Reason: Insomnia Nifedipine (Nifedipine Er 60 Mg Tab.Er.24) 120 mg PO BEDTIME [facility] Omeprazole (Omeprazole 40 Mg Capsule.Dr) 40 mg PO DAILY@0630 [facility] Last Admin: 10/19/21 09:33 Dose: 40 mg Documented by: Oxcarbazepine (Oxcarbazepine 300 Mg Tablet) 300 mg PO BID [facility] Last Admin: 10/19/21 09:37 Dose: 300 mg Documented by: Perphenazine (Perphenazine 4 Mg Tablet) 4 mg PO BID [facility] Last Admin: 10/19/21 09:36 Dose: 4 mg Documented by: Pharmacy Consult (Consult Rx Perform Med Rec) 1 each MISCELLANE ONCE PRN PRN Reason: Consult order Senna (Sennosides 8.6 Mg Tablet) 17.2 mg PO BEDTIME PRN PRN Reason: Constipation Sertraline HCl (Sertraline Hcl 100 Mg Tablet) 200 mg PO DAILY [facility] Last Admin: 10/19/21 09:36 Dose: 200 mg Documented by: Sodium Chloride (0.9 % Sodium Chloride Flush 3 Ml Syringe) 3 ml IVFLUSH QSHIFT [facility] Last Admin: 10/19/21 09:38 Dose: 3 ml Documented by: Tramadol HCl (Tramadol Hcl 50 Mg Tablet) 100 mg PO Q8H PRN PRN Reason: Pain (Scale Score 4-6) Vitamin D (Cholecalciferol (Vitamin D3) 25 Mcg Tablet) 50 mcg PO DAILY [facility] Last Admin: 10/19/21 09:36 Dose: 50 mcg Documented by: Zolpidem Tartrate (Zolpidem Tartrate 5 Mg Tablet) 10 mg PO BEDTIME [facility] Home Medications Medication Instructions Recorded Confirmed Last Taken Type atorvastatin 80 mg tablet 80 mg PO BEDTIME 07/25/20 10/18/21 10/09/21 History carvedilol 25 mg tablet 25 mg PO BID 07/25/20 10/18/21 10/18/21 History gabapentin 600 mg tablet 600 mg PO BEDTIME 07/25/20 10/18/21 10/09/21 History oxcarbazepine 300 mg tablet 300 mg PO BID 07/25/20 10/18/21 10/18/21 History perphenazine 4 mg tablet 4 mg PO BID 07/25/20 10/18/21 10/18/21 History sertraline 100 mg tablet 200 mg PO DAILY 07/25/20 10/18/21 10/18/21 History zolpidem 10 mg tablet 1 tab PO BEDTIME 01/23/21 10/18/21 10/09/21 History fluticasone propionate 220 2 puff PO BID 08/18/21 10/18/21 10/10/21 History mcg/actuation HFA aerosol inhaler (Flovent HFA) insulin glargine U-300 conc 300 60 unit SUBCUT DAILY 09/25/21 10/18/21 10/10/21 History unit/mL (3 mL) subcutaneous pen (Toujeo Max U-300 SoloStar) albuterol sulfate 90 mcg/actuation 2 puff PO Q4H PRN 10/09/21 10/18/21 10/10/21 History aerosol inhaler (Ventolin HFA) cholecalciferol (vitamin D3) 25 50 mcg PO DAILY 10/09/21 10/18/21 10/18/21 History mcg (1,000 unit) tablet nifedipine 30 mg tablet,extended 120 mg PO BEDTIME tab 10/09/21 10/18/21 10/09/21 History release aspirin 81 mg tablet,delayed 81 mg PO DAILY 10/18/21 10/18/21 10/18/21 History release omeprazole 40 mg capsule,delayed 40 mg PO DAILY@0630 10/18/21 10/18/21 Unknown History release tadalafil 10 mg tablet (Cialis) 10 mg PO DAILY PRN 10/18/21 10/18/21 Unknown History tramadol 50 mg tablet 100 mg PO Q8H PRN 10/18/21 10/18/21 Unknown History Physical Exam 2 Vital Signs: Vital Signs: Last Vital Signs Temp 97.8 F 10/18/21 19:47 Pulse 57 10/19/21 09:37 Resp 20 10/18/21 22:29 BP 154/53 H 10/19/21 09:37 Pulse Ox 97 10/18/21 22:29 BMI result Body Mass Index 35.5 Const: General: no acute distress HENMT: Other: Unremarkable Neck: Neck: Yes normal visual inspection Chest: Chest palpation & inspection: normal inspection of the chest Resp: Auscultation: no crackles and no wheezes Cardio: Palpation: normal PMI Heart sounds: S1 normal heart sound present, S2 normal heart sound present, no gallops, no murmurs and no rubs GI: Palpation (GI): Soft to palpation Back/Spine/Pelvis: Other: unremarkable Skin: Lesions: other Neuro: Cranial nerves: Yes Other cranial nerve findings present Extrem: General: Yes other Psych: Mental Status: other Objective Labs and Meds Result diagrams: 10/19/21 06:03 10/19/21 06:03 Lab results: Laboratory Results - last 24 hr 10/18/21 10/18/21 10/18/21 14:06 14:06 14:06 WBC 6.5 RBC 3.09 L Hgb 9.3 L Hct 27.3 L MCV 88.3 MCH 30.1 MCHC 34.1 RDW 13.2 Plt Count 152 L MPV 11.6 Immature Gran % (Auto) 0.3 Neut % (Auto) 73.5 H Lymph % (Auto) 15.0 L [place] % (Auto) 7.5 Eos % (Auto) 3.4 Baso % (Auto) 0.3 Lymph # (Auto) 1.0 L [place] # (Auto) 0.5 Eos # (Auto) 0.2 Baso # (Auto) 0.0 Abs Immat Gran (auto) 0.02 Absolute Neuts (auto) 4.8 Absolute Nucleated RBC 0.000 Nucleated RBC % (auto) 0.0 Sodium 145 Potassium 3.4 Chloride 105 Carbon Dioxide 26 Anion Gap 17 BUN 57 H Creatinine 4.10 H* Estim Creat Clear Calc 24.4 Estimated GFR 15 POC Glucose Random Glucose 106 Calcium 8.1 L Troponin I High Sens 40.5 H B-Natriuretic Peptide 378 H Influenza Type A (PCR) Influenza Type B (PCR) RSV RNA Qual (PCR) SARS-CoV-2 RNA (RT-PCR) 10/18/21 10/18/21 10/19/21 19:32 19:46 06:03 WBC 8.0 RBC 3.45 L Hgb 10.4 L Hct 30.4 L MCV 88.1 MCH 30.1 MCHC 34.2 RDW 13.2 Plt Count 163 MPV 11.9 Immature Gran % (Auto) 0.4 Neut % (Auto) 87.5 H Lymph % (Auto) 8.2 L [place] % (Auto) 3.8 Eos % (Auto) 0.0 Baso % (Auto) 0.1 Lymph # (Auto) 0.7 L [place] # (Auto) 0.3 Eos # (Auto) 0.0 Baso # (Auto) 0.0 Abs Immat Gran (auto) 0.03 Absolute Neuts (auto) 7.0 Absolute Nucleated RBC 0.000 Nucleated RBC % (auto) 0.0 Sodium Potassium Chloride Carbon Dioxide Anion Gap BUN Creatinine Estim Creat Clear Calc Estimated GFR POC Glucose Random Glucose Calcium Troponin I High Sens 39.5 H B-Natriuretic Peptide Influenza Type A (PCR) NEGATIVE Influenza Type B (PCR) NEGATIVE RSV RNA Qual (PCR) NEGATIVE SARS-CoV-2 RNA (RT-PCR) NEGATIVE 10/19/21 10/19/21 06:03 08:13 WBC RBC Hgb Hct MCV MCH MCHC RDW Plt Count MPV Immature Gran % (Auto) Neut % (Auto) Lymph % (Auto) [place] % (Auto) Eos % (Auto) Baso % (Auto) Lymph # (Auto) [place] # (Auto) Eos # (Auto) Baso # (Auto) Abs Immat Gran (auto) Absolute Neuts (auto) Absolute Nucleated RBC Nucleated RBC % (auto) Sodium 143 Potassium 3.5 Chloride 102 Carbon Dioxide 28 Anion Gap 17 BUN 59 H Creatinine 4.29 H* Estim Creat Clear Calc 23.3 Estimated GFR 14 POC Glucose 155 H Random Glucose 150 H D Calcium 8.3 L Troponin I High Sens B-Natriuretic Peptide Influenza Type A (PCR) Influenza Type B (PCR) RSV RNA Qual (PCR) SARS-CoV-2 RNA (RT-PCR) ECG Interpretation: EKG with sinus bradycardia, left ventricular hypertrophy with left axis deviation; 58/min. Imaging Radiologist's impression: Impressions Chest X-Ray 10/18/21 14:34 IMPRESSION: Improving essentially resolved infiltrates. Assessment and Plan (1) Acute on chronic heart failure with preserved ejection fraction (HFpEF): Status: Acute (2) Hypertensive emergency: Status: Acute (3) Chronic kidney disease, stage 4 (severe): Status: Acute (4) Diabetes mellitus with hyperglycemia, with long-term current use of insulin: Status: Acute Last echocardiogram from July shows LVEF 65-70% with severe left ventricular hypertrophy. Moderately dilated left atrium. Myocardial perfusion imaging study in the past at shown normal perfusion. Overall, primary issue is uncontrolled hypertension in the context of advanced renal disease. His creatinine is 4.29 and BUN is 59. Troponins are slightly high at 40 and 39 but that is related to uncontrolled hypertension itself. Peak blood pressures almos t 216/74 mm Hg but today's reading seems lower. Current regimen as listed includes carvedilol, hydralazine, Imdur, doxazosin, nifedipine. We can max out doses of isosorbide and doxazosin. Diuretics as guided by Nephrology due to advanced renal disease. Will follow. Procedures Date of Service Date of Service: 10/19/21
--- NOTE | 2021-10-19 10:19 | PC.NURSE ---
Pt sleeping at this time, awakens to name, NC found to be off pt with normal O2 sats. Medicated as per MAR orders, awaiting one med from pharmacy, pt A&Ox3, awaiting bed assignment, Will continue to monitor.
--- NOTE | 2021-10-19 10:20 | PHA.MEDREC ---
Pharmacy Consult ? Medication Reconciliation Pharmacy has completed the medication reconciliation. Patient is a poor historian. Patient was just DC'd one week prior. Patient use [facility] at [facility]. [facility] for Active medication in medbox. Patient confirmed insulin doses. Abril Denney, pharmD
[2021-10-19] MEDS: Isosorbide Mononitrate 30 MG TAB.ER.24H PO (12:25)
[2021-10-19 12:41] LABS: Glucose, Whole Blood 118 mg/dL (60-115)
--- NOTE | 2021-10-19 12:48 | PC.NURSE ---
Pt OOB to urinate in urinal, no complaints of pain. States he is tired today but didn't sleep well last night. Awaiting bed assignment. will continue to monitor.
--- NOTE | 2021-10-19 15:32 | HO.PM.IMPN ---
Subjective Subjective Date of Service: 10/19/21 Interval History: states breathing is improved overnight with therapies. No acute issues Review of Systems denies chest pain Denies shortness of breath Denies nausea vomiting and diarrhea Physical Exam Vital Signs: Vital Signs: Last Vital Signs Temp 97.8 F 10/18/21 19:47 Pulse 65 10/19/21 12:25 Resp 20 10/18/21 22:29 BP 119/53 L 10/19/21 12:25 Pulse Ox 97 10/18/21 22:29 BMI result Body Mass Index 35.5 Const: Other: no acute issues Resp: Other: clear to auscultation bilaterally. No rales rhonchi wheezes Cardio: Other: no S4; positive S1-S2; no S3 murmurs rubs or gallops GI: Other: soft nontender nondistended with normoactive bowel sounds. Neuro: Other: cranial nerves 2-12 grossly intact as tested. Motor 5/5 all extremities. Sensation intact. Cognition appropriate Extrem: Other: no edema bilateral Objective Data Active Medications Acetaminophen (Acetaminophen 325 Mg Tablet) 650 mg PO Q6H PRN PRN Reason: Pain, Mild (Pain Scale 1-3) Albuterol/Ipratropium (Albuterol/Iprat 2.5/0.5mg 3 Ml Ampul.Neb) 3 ml INHALE RQ4H PRN PRN Reason: Shortness of Breath/Wheezing Aspirin (Aspirin Enteric Coated 81 Mg Tablet.) 81 mg PO DAILY [facility] Last Admin: 10/19/21 09:36 Dose: 81 mg Documented by: ARSH Atorvastatin Calcium (Atorvastatin Calcium 80 Mg Tablet) 80 mg PO BEDTIME [facility] Carvedilol (Carvedilol 25 Mg Tablet) 25 mg PO BID [facility]; Protocol Last Admin: 10/19/21 09:37 Dose: 25 mg Documented by: ARSH Dextrose (Dextrose 50 % 25 Gm/50 Ml Vial) 25 gm IVPUSH Q15M PRN; Protocol PRN Reason: per Hypoglycemia Standing Ord. Doxazosin Mesylate (Doxazosin Mesylate 2 Mg Tablet) 2 mg PO BID [facility]; Protocol Last Admin: 10/19/21 09:33 Dose: 2 mg Documented by: ARSH Enoxaparin Sodium (Enoxaparin Sodium 30 Mg/0.3 Ml Syringe) 30 mg SUBCUT Q24H [facility] Last Admin: 10/18/21 22:59 Dose: 30 mg Documented by: CARLOS Furosemide (Furosemide 40 Mg/4 Ml Vial) 80 mg IVPUSH BIDWM [facility]; Protocol Last Admin: 10/19/21 09:36 Dose: 80 mg Documented by: ARSH Gabapentin (Gabapentin 600 Mg Tablet) 600 mg PO BEDTIME [facility] Glucose (Glucose Gel 15 Gm Gel..Gram.) 15 gm PO Q15M PRN; Protocol PRN Reason: per Hypoglycemia Standing Ord. Hydralazine HCl (Hydralazine Hcl 50 Mg Tablet) 100 mg PO TID [facility]; Protocol Last Admin: 10/19/21 09:37 Dose: 100 mg Documented by: ARSH Insulin Glargine (Insulin Glargine,Hum.Rec.Anlog 100 Unit/Ml 10 Ml Vial) 20 unit SUBCUT BEDTIME [facility] Insulin Human Lispro (Insulin Lispro 100 Unit/Ml 3 Ml Vial) 0 unit SUBCUT QIDACHS [facility]; Protocol Last Admin: 10/19/21 13:52 Dose: Not Given Documented by: ARSH Non-Admin Reason: No Insulin Coverage Isosorbide Mononitrate (Isosorbide Mononitrate 30 Mg Tab.Er.24h) 30 mg PO DAILY [facility]; Protocol Last Admin: 10/19/21 12:25 Dose: 30 mg Documented by: ARSH Melatonin (Melatonin 3 Mg Tablet) 6 mg PO BEDTIME PRN PRN Reason: Insomnia Nifedipine (Nifedipine Er 60 Mg Tab.Er.24) 120 mg PO BEDTIME [facility] Omeprazole (Omeprazole 40 Mg Capsule.Dr) 40 mg PO DAILY@0630 [facility] Last Admin: 10/19/21 09:33 Dose: 40 mg Documented by: ARSH Oxcarbazepine (Oxcarbazepine 300 Mg Tablet) 300 mg PO BID [facility] Last Admin: 10/19/21 09:37 Dose: 300 mg Documented by: ARSH Perphenazine (Perphenazine 4 Mg Tablet) 4 mg PO BID [facility] Last Admin: 10/19/21 09:36 Dose: 4 mg Documented by: ARSH Pharmacy Consult (Consult Rx Perform Med Rec) 1 each MISCELLANE ONCE PRN PRN Reason: Consult order Senna (Sennosides 8.6 Mg Tablet) 17.2 mg PO BEDTIME PRN PRN Reason: Constipation Sertraline HCl (Sertraline Hcl 100 Mg Tablet) 200 mg PO DAILY [facility] Last Admin: 10/19/21 09:36 Dose: 200 mg Documented by: ARSH Sodium Chloride (0.9 % Sodium Chloride Flush 3 Ml Syringe) 3 ml IVFLUSH QSHIFT [facility] Last Admin: 10/19/21 09:38 Dose: 3 ml Documented by: ARSH Tramadol HCl (Tramadol Hcl 50 Mg Tablet) 100 mg PO Q8H PRN PRN Reason: Pain (Scale Score 4-6) Vitamin D (Cholecalciferol (Vitamin D3) 25 Mcg Tablet) 50 mcg PO DAILY [facility] Last Admin: 10/19/21 09:36 Dose: 50 mcg Documented by: ARSH Zolpidem Tartrate (Zolpidem Tartrate 5 Mg Tablet) 10 mg PO BEDTIME [facility] Labs CBC & Chem 7: 10/19/21 06:03 10/19/21 06:03 Labs: Laboratory Results - last 24 hr 10/18/21 10/18/21 10/19/21 19:32 19:46 06:03 MCV 88.1 MCH 30.1 MCHC 34.2 RDW 13.2 Plt Count 163 MPV 11.9 Immature Gran % (Auto) 0.4 Neut % (Auto) 87.5 H Lymph % (Auto) 8.2 L [place] % (Auto) 3.8 Eos % (Auto) 0.0 Baso % (Auto) 0.1 Lymph # (Auto) 0.7 L [place] # (Auto) 0.3 Eos # (Auto) 0.0 Baso # (Auto) 0.0 Abs Immat Gran (auto) 0.03 Absolute Neuts (auto) 7.0 Absolute Nucleated RBC 0.000 Nucleated RBC % (auto) 0.0 Anion Gap Estim Creat Clear Calc Estimated GFR POC Glucose Random Glucose Calcium Troponin I High Sens 39.5 H Influenza Type A (PCR) NEGATIVE Influenza Type B (PCR) NEGATIVE RSV RNA Qual (PCR) NEGATIVE SARS-CoV-2 RNA (RT-PCR) NEGATIVE 10/19/21 10/19/21 10/19/21 06:03 08:13 12:18 MCV MCH MCHC RDW Plt Count MPV Immature Gran % (Auto) Neut % (Auto) Lymph % (Auto) [place] % (Auto) Eos % (Auto) Baso % (Auto) Lymph # (Auto) [place] # (Auto) Eos # (Auto) Baso # (Auto) Abs Immat Gran (auto) Absolute Neuts (auto) Absolute Nucleated RBC Nucleated RBC % (auto) Anion Gap 17 Estim Creat Clear Calc 23.3 Estimated GFR 14 POC Glucose 155 H 118 H Random Glucose 150 H D Calcium 8.3 L Troponin I High Sens Influenza Type A (PCR) Influenza Type B (PCR) RSV RNA Qual (PCR) SARS-CoV-2 RNA (RT-PCR) Assessment and Plan (1) Type 2 diabetes mellitus with unspecified complications: Status: Acute (2) Diastolic dysfunction: Status: Acute (3) Chronic kidney disease, stage 4 (severe): Status: Acute Assessment and Plan: ?61-year-old male with a past medical history of hypertension, hyperlipidemia, diabetes, HFpEFf, CKD stage 4, asthma/COPD, BRENDA, anxiety, depression, history of pancreatitis presented to the hospital with a chief complaint of generalized weakness/shortness of breath.? Noted to be in acutehypertensive urgency.? Admitted for further management.? 1.HTN Query compliance +/- volume overload. Lasix 80mg q12 with excellent response. Continue Coreg/Cardura/Hydralazine/Isosorbide/Nifedipine as ordered. Adjust as indicaed. 2. CKD Consult Renal (placed late)...OK to see in am. Follow divalents/creat 3. DMII Continue outpatient therapies Cover with Sliding Scale Lovenox/Full code Quality Stroke Does the patient have a stroke diagnosis?: No VTE Prior VTE?: No VTE Risk Level:: Medical - moderate - high VTE Device Contraindication: Treatment Not Indicated VTE Drug Contraindication: N/A - Med Ordered
[2021-10-19 17:52] LABS: Glucose, Whole Blood 139 mg/dL (60-115)
[2021-10-19 20:48] LABS: Glucose, Whole Blood 149 mg/dL (60-115)
[2021-10-19] MEDS: Insulin Glargine,Hum.rec.anlog 100 UNIT/ML 10 ML VIAL 20 UNIT SUBCUT (21:39)
[2021-10-19] MEDS: Zolpidem Tartrate 5 MG TABLET 10 MG PO (21:40)
[2021-10-19] MEDS: Enoxaparin Sodium 30 MG/0.3 ML SYRINGE SUBCUT (21:40)
[2021-10-19] MEDS: Gabapentin 600 MG TABLET PO (21:43)
[2021-10-19] MEDS: NIFEdipine ER 60 MG TAB.ER.24 120 MG PO (21:43)
[2021-10-19] MEDS: Atorvastatin Calcium 80 MG TABLET PO (21:44)
[2021-10-20] VITALS (7 sets, daily range): BP systolic 136–174; BP diastolic 32–56; PULSE 54–60; RESP 11–20; TEMP 36.4–36.8; O2SAT 97–98
[2021-10-20] MEDS: Omeprazole 40 MG CAPSULE.DR PO (06:33)
[2021-10-20 07:00] LABS: MANUAL DIFF FLAG NO
[2021-10-20 07:05] LABS: Basophils Percent Auto 0.4 % (0-2); Eosinophils Absolute Auto 0.3 X10*3/uL (0.0-0.4); Eosinophils Percent Auto 3.5 % (0-4); Hematocrit 28.3 % (42.0-52.0); Hemoglobin 9.6 g/dl (14.0-18.0); Imm Gran Abs Auto 0.03 X10*3/uL (0.00-0.03); Imm Gran Pct Auto 0.4 % (0.0-0.4); Lymphocytes Absolute Auto 1.4 X10*3/uL (1.2-4.9); Lymphocytes Percent Auto 19.6 % (20-40); Mean Corpuscular HGB Conc 33.9 g/dl (31.0-36.0); Mean Corpuscular Hemoglobin 30.3 pg (27.0-33.0); Mean Corpuscular Volume 89.3 fL (80.0-98.0); Mean Platelet Volume 11.9 fL (9.4-12.4); Monocytes Absolute Auto 0.6 X10*3/uL (0.1-1.2); Monocytes Percent Auto 7.8 % (2-11); Neutrophils Percent Auto 68.3 % (45-73); Platelet Count 159 X10*3/uL (160-400); Red Blood Count 3.17 X10*6/uL (4.60-5.80); Red Cell Distribution Width 13.5 % (11.0-16.0); White Blood Count 7.3 X10*3/uL (4.8-10.8)
[2021-10-20 07:26] LABS: Glucose, Whole Blood 131 mg/dL (60-115)
[2021-10-20 07:27] LABS: Alanine Aminotransferase 32 U/L (0-40); Albumin Level 3.7 g/dL (3.5-5.0); Alkaline Phosphatase 90 U/L (39-117); Anion Gap 14 (12-20); Aspartate Amino Transferase 19 U/L (5-37); B Type Natriuretic Peptide 287 pg/mL (<100); Bilirubin Total 0.4 mg/dL (0.0-1.0); Blood Urea Nitrogen 63 mg/dL (9-16); Calcium 7.5 mg/dL (8.4-10.2); Carbon Dioxide 28 mmol/L (22-29); Chloride 102 mmol/L (96-108); Creatinine Clr Calc Pharmacy 20.9; Estimated Glomerular Filt Rate 12; Glucose Fasting 134 mg/dL (60-99); Potassium 3.4 mmol/L (3.3-5.1); Sodium 141 mmol/L (135-145); Total Protein 6.8 g/dL (6.5-8.0)
--- NOTE | 2021-10-20 10:11 | PM.PNNEP ---
Subjective Subjective Date of Service: 10/20/21 Interval history: Seen and examined Physical Exam Vital Signs: Vital Signs: Last Vital Signs Temp 97.8 F 10/18/21 19:47 Pulse 56 10/20/21 04:20 Resp 15 10/20/21 04:20 BP 175/51 H 10/19/21 23:48 Pulse Ox 98 10/20/21 04:20 BMI result Body Mass Index 35.5 Objective Data Labs CBC & Chem 7: 10/20/21 06:53 10/20/21 06:53 Labs: Laboratory Results - last 24 hr 10/19/21 10/19/21 10/19/21 12:18 17:44 20:45 WBC RBC Hgb Hct MCV MCH MCHC RDW Plt Count MPV Immature Gran % (Auto) Neut % (Auto) Lymph % (Auto) [place] % (Auto) Eos % (Auto) Baso % (Auto) Lymph # (Auto) [place] # (Auto) Eos # (Auto) Baso # (Auto) Abs Immat Gran (auto) Absolute Neuts (auto) Absolute Nucleated RBC Nucleated RBC % (auto) Sodium Potassium Chloride Carbon Dioxide Anion Gap BUN Creatinine Estim Creat Clear Calc Estimated GFR POC Glucose 118 H 139 H 149 H Fasting Glucose Calcium Total Bilirubin AST ALT Alkaline Phosphatase B-Natriuretic Peptide Total Protein Albumin 10/20/21 10/20/21 10/20/21 06:53 06:53 06:53 WBC 7.3 RBC 3.17 L Hgb 9.6 L Hct 28.3 L MCV 89.3 MCH 30.3 MCHC 33.9 RDW 13.5 Plt Count 159 L MPV 11.9 Immature Gran % (Auto) 0.4 Neut % (Auto) 68.3 Lymph % (Auto) 19.6 L [place] % (Auto) 7.8 Eos % (Auto) 3.5 Baso % (Auto) 0.4 Lymph # (Auto) 1.4 [place] # (Auto) 0.6 Eos # (Auto) 0.3 Baso # (Auto) 0.0 Abs Immat Gran (auto) 0.03 Absolute Neuts (auto) 5.0 Absolute Nucleated RBC 0.000 Nucleated RBC % (auto) 0.0 Sodium 141 Potassium 3.4 Chloride 102 Carbon Dioxide 28 Anion Gap 14 BUN 63 H Creatinine 4.79 H* Estim Creat Clear Calc 20.9 Estimated GFR 12 POC Glucose Fasting Glucose 134 H Calcium 7.5 L D Total Bilirubin 0.4 AST 19 ALT 32 Alkaline Phosphatase 90 D B-Natriuretic Peptide 287 H Total Protein 6.8 Albumin 3.7 10/20/21 07:22 WBC RBC Hgb Hct MCV MCH MCHC RDW Plt Count MPV Immature Gran % (Auto) Neut % (Auto) Lymph % (Auto) [place] % (Auto) Eos % (Auto) Baso % (Auto) Lymph # (Auto) [place] # (Auto) Eos # (Auto) Baso # (Auto) Abs Immat Gran (auto) Absolute Neuts (auto) Absolute Nucleated RBC Nucleated RBC % (auto) Sodium Potassium Chloride Carbon Dioxide Anion Gap BUN Creatinine Estim Creat Clear Calc Estimated GFR POC Glucose 131 H Fasting Glucose Calcium Total Bilirubin AST ALT Alkaline Phosphatase B-Natriuretic Peptide Total Protein Albumin Procedures Date of Service Date of Service: 10/20/21 Assessment & Plan Assessment and plan (1) CKD (chronic kidney disease) stage 4, GFR 15-29 ml/min: Status: Acute (2) Heart failure with preserved ejection fraction: Status: Acute (3) HTN (hypertension): Status: Acute (4) Anemia: Status: Acute Assessment and Plan: known CKD due to DM/HTN/ residual kidney function loss from prior MARNI kidney function at baseline severe restriction in free water excretion known HFpEF volume status above dry weight contributing to HTN REC continue IV diuresis reduce gabapentin to 300 mg renally dose protect non dominant arm follow kidney function and electrolytes Time Spent With Patient Time: Total time spent is greater than 50% in coordination of care (as documented) at patient's floor/unit and/or counseling patient: Progress Note: Quality Stroke Does the patient have a stroke diagnosis?: No
[2021-10-20] MEDS: OXcarbazepine 300 MG TABLET PO ×2 (10:15→20:49)
[2021-10-20] MEDS: Cholecalciferol (Vitamin D3) 25 MCG TABLET 50 MCG PO (10:15)
[2021-10-20] MEDS: Aspirin Enteric Coated 81 MG TABLET.DR PO (10:15)
[2021-10-20] MEDS: Perphenazine 4 MG TABLET PO ×2 (10:15→20:48)
[2021-10-20] MEDS: Sertraline HCL 100 MG TABLET 200 MG PO (10:15)
[2021-10-20] MEDS: carvediloL 25 MG TABLET PO (10:16)
[2021-10-20] MEDS: Doxazosin Mesylate 2 MG TABLET PO ×2 (10:16→20:58)
[2021-10-20] MEDS: hydrALAZINE HCl 50 MG TABLET 100 MG PO ×2 (10:16→15:00)
[2021-10-20] MEDS: Furosemide 40 MG/4 ML VIAL 80 MG IVPUSH ×2 (10:17→17:18)
--- NOTE | 2021-10-20 10:29 | PC.NURSE ---
MD Sandhu made aware of morning BP systolic 130's... Verbal order to hold off on Imdur for now.
--- NOTE | 2021-10-20 12:14 | PC.NURSE ---
Pt received from type copyist: Pt AOX4 and offers no complaints at this time. NSR to sinus tamiko noted with diminished breath sounds. Pt states he is still congested and remains on 2L N/C. B/L LE 1+ edema noted. Pt receiving IV lasix and tolerating well. Using urinal appropriately. Pt abd rounded and non-tender.
--- NOTE | 2021-10-20 14:24 | HO.PM.IMPN ---
Subjective Subjective Date of Service: 10/20/21 Interval History: The patient was seen and evaluated this morning Laying in bed, feels little better but still having difficulty breathing Reporting dyspnea with minimal exertion Denies any fever, chills or s chest pain No reported other overnight events. Systemic review: No fever, chills or weakness dyspnea with exertion No shortness of breath or coughing No abdominal pain, nausea or vomiting No urinary symptoms No any rash or wounds Physical Exam Vital Signs: Vital Signs: Last Vital Signs Temp 97.6 F 10/20/21 10:00 Pulse 60 10/20/21 10:00 Resp 14 10/20/21 10:00 BP 136/53 L 10/20/21 10:00 Pulse Ox 98 10/20/21 10:00 BMI result Body Mass Index 35.5 Const: Other: Constitutional : Alert, oriented, not in distress Neck : Normal inspection, Supple Cardiovascular : RRR, S1 S2, trace bilateral lower extremity edema Respiratory : fair bilateral air entry, basal very fine crackles, no wheezes or rhonchi Gastrointestinal: soft, lax, Normal bowel sounds, Non tender Skin : Warm, Dry Neurological : Alert & oriented x3, No focal deficit Objective Data Active Medications Acetaminophen (Acetaminophen 325 Mg Tablet) 650 mg PO Q6H PRN PRN Reason: Pain, Mild (Pain Scale 1-3) Albuterol/Ipratropium (Albuterol/Iprat 2.5/0.5mg 3 Ml Ampul.Neb) 3 ml INHALE RQ4H PRN PRN Reason: Shortness of Breath/Wheezing Aspirin (Aspirin Enteric Coated 81 Mg Tablet.) 81 mg PO DAILY [facility] Last Admin: 10/20/21 10:15 Dose: 81 mg Documented by: TIFFANI Atorvastatin Calcium (Atorvastatin Calcium 80 Mg Tablet) 80 mg PO BEDTIME [facility] Last Admin: 10/19/21 21:44 Dose: 80 mg Documented by: MARIAMA Carvedilol (Carvedilol 25 Mg Tablet) 25 mg PO BID [facility]; Protocol Last Admin: 10/20/21 10:16 Dose: 25 mg Documented by: TIFFANI Dextrose (Dextrose 50 % 25 Gm/50 Ml Vial) 25 gm IVPUSH Q15M PRN; Protocol PRN Reason: per Hypoglycemia Standing Ord. Doxazosin Mesylate (Doxazosin Mesylate 2 Mg Tablet) 2 mg PO BID [facility]; Protocol Last Admin: 10/20/21 10:16 Dose: 2 mg Documented by: TIFFANI Enoxaparin Sodium (Enoxaparin Sodium 30 Mg/0.3 Ml Syringe) 30 mg SUBCUT Q24H [facility] Last Admin: 10/19/21 21:40 Dose: 30 mg Documented by: MARIAMA Furosemide (Furosemide 40 Mg/4 Ml Vial) 80 mg IVPUSH BIDWM [facility]; Protocol Last Admin: 10/20/21 10:17 Dose: 80 mg Documented by: TIFFANI Gabapentin (Gabapentin 600 Mg Tablet) 600 mg PO BEDTIME [facility] Last Admin: 10/19/21 21:43 Dose: 600 mg Documented by: MARIAMA Glucose (Glucose Gel 15 Gm Gel..Gram.) 15 gm PO Q15M PRN; Protocol PRN Reason: per Hypoglycemia Standing Ord. Hydralazine HCl (Hydralazine Hcl 50 Mg Tablet) 100 mg PO TID [facility]; Protocol Last Admin: 10/20/21 10:16 Dose: 100 mg Documented by: TIFFANI Insulin Glargine (Insulin Glargine,Hum.Rec.Anlog 100 Unit/Ml 10 Ml Vial) 20 unit SUBCUT BEDTIME [facility] Last Admin: 10/19/21 21:39 Dose: 20 unit Documented by: MARIAMA Insulin Human Lispro (Insulin Lispro 100 Unit/Ml 3 Ml Vial) 0 unit SUBCUT QIDACHS [facility]; Protocol Last Admin: 10/20/21 09:09 Dose: Not Given Documented by: TIFFANI Non-Admin Reason: No Insulin Coverage Comments: B/S 131 Isosorbide Mononitrate (Isosorbide Mononitrate 60 Mg Tab.Er.24h) 60 mg PO DAILY [facility]; Protocol Last Admin: 10/20/21 10:30 Dose: Not Given Documented by: TIFFANI Non-Admin Reason: See Note Melatonin (Melatonin 3 Mg Tablet) 6 mg PO BEDTIME PRN PRN Reason: Insomnia Nifedipine (Nifedipine Er 60 Mg Tab.Er.24) 120 mg PO BEDTIME [facility] Last Admin: 10/19/21 21:43 Dose: 120 mg Documented by: MARIAMA Omeprazole (Omeprazole 40 Mg Capsule.Dr) 40 mg PO DAILY@0630 [facility] Last Admin: 10/20/21 06:33 Dose: 40 mg Documented by: MARIAMA Oxcarbazepine (Oxcarbazepine 300 Mg Tablet) 300 mg PO BID [facility] Last Admin: 10/20/21 10:15 Dose: 300 mg Documented by: TIFFANI Perphenazine (Perphenazine 4 Mg Tablet) 4 mg PO BID [facility] Last Admin: 10/20/21 10:15 Dose: 4 mg Documented by: TIFFANI Pharmacy Consult (Consult Rx Perform Med Rec) 1 each MISCELLANE ONCE PRN PRN Reason: Consult order Senna (Sennosides 8.6 Mg Tablet) 17.2 mg PO BEDTIME PRN PRN Reason: Constipation Sertraline HCl (Sertraline Hcl 100 Mg Tablet) 200 mg PO DAILY [facility] Last Admin: 10/20/21 10:15 Dose: 200 mg Documented by: TIFFANI Sodium Chloride (0.9 % Sodium Chloride Flush 3 Ml Syringe) 3 ml IVFLUSH QSHIFT [facility] Last Admin: 10/20/21 07:11 Dose: Not Given Documented by: TIFFANI Non-Admin Reason: Med Not Available Tramadol HCl (Tramadol Hcl 50 Mg Tablet) 100 mg PO Q8H PRN PRN Reason: Pain (Scale Score 4-6) Vitamin D (Cholecalciferol (Vitamin D3) 25 Mcg Tablet) 50 mcg PO DAILY [facility] Last Admin: 10/20/21 10:15 Dose: 50 mcg Documented by: TIFFANI Zolpidem Tartrate (Zolpidem Tartrate 5 Mg Tablet) 10 mg PO BEDTIME [facility] Last Admin: 10/19/21 21:40 Dose: 10 mg Documented by: MARIAMA Labs CBC & Chem 7: 10/20/21 06:53 10/20/21 06:53 Labs: Laboratory Results - last 24 hr 10/19/21 10/19/21 10/20/21 17:44 20:45 06:53 MCV 89.3 MCH 30.3 MCHC 33.9 RDW 13.5 Plt Count 159 L MPV 11.9 Immature Gran % (Auto) 0.4 Neut % (Auto) 68.3 Lymph % (Auto) 19.6 L [place] % (Auto) 7.8 Eos % (Auto) 3.5 Baso % (Auto) 0.4 Lymph # (Auto) 1.4 [place] # (Auto) 0.6 Eos # (Auto) 0.3 Baso # (Auto) 0.0 Abs Immat Gran (auto) 0.03 Absolute Neuts (auto) 5.0 Absolute Nucleated RBC 0.000 Nucleated RBC % (auto) 0.0 Anion Gap Estim Creat Clear Calc Estimated GFR POC Glucose 139 H 149 H Fasting Glucose Calcium Total Bilirubin AST ALT Alkaline Phosphatase B-Natriuretic Peptide Total Protein Albumin 10/20/21 10/20/21 10/20/21 06:53 06:53 07:22 MCV MCH MCHC RDW Plt Count MPV Immature Gran % (Auto) Neut % (Auto) Lymph % (Auto) [place] % (Auto) Eos % (Auto) Baso % (Auto) Lymph # (Auto) [place] # (Auto) Eos # (Auto) Baso # (Auto) Abs Immat Gran (auto) Absolute Neuts (auto) Absolute Nucleated RBC Nucleated RBC % (auto) Anion Gap 14 Estim Creat Clear Calc 20.9 Estimated GFR 12 POC Glucose 131 H Fasting Glucose 134 H Calcium 7.5 L D Total Bilirubin 0.4 AST 19 ALT 32 Alkaline Phosphatase 90 D B-Natriuretic Peptide 287 H Total Protein 6.8 Albumin 3.7 Assessment and Plan (1) Heart failure with preserved ejection fraction: Status: Acute (2) Hypertensive emergency: Status: Acute Assessment and Plan: ?61-year-old male with a past medical history of hypertension, hyperlipidemia, diabetes, HFpEFf, CKD stage 4, asthma/COPD, BRENDA, anxiety, depression, history of pancreatitis presented to the hospital with a chief complaint of generalized weakness/shortness of breath.? Noted to be in acutehypertensive urgency.? Admitted for further management.? 1- Acute on chronic diastolic CHF exacerbation 2- 2/2 Hypertensive emergency Better controlled Likely result of compliance Continue IV Lasix b.i.d. for now Continue Coreg/Cardura/Hydralazine/Isosorbide/Nifedipine as ordered. consider increasing isosorbide Cardiology input appreciated 3- CKD nephrology input appreciated, reduce gabapentin Follow BMP 4- DMII Continue outpatient therapies Cover with Sliding Scale DVT Lovenox/Full code Quality Stroke Does the patient have a stroke diagnosis?: No VTE Prior VTE?: No VTE Risk Level:: Medical - moderate - high VTE Device Contraindication: Treatment Not Indicated VTE Drug Contraindication: N/A - Med Ordered
[2021-10-20 14:35] LABS: Glucose, Whole Blood 113 mg/dL (60-115)
[2021-10-20] MEDS: Isosorbide Mononitrate 30 MG TAB.ER.24H PO (15:00)
--- NOTE | 2021-10-20 15:09 | MHC.CM.PN ---
pt lives alone in his apt. he reports that he is independent in his care however he does have a analog design engineer for 5 hrs/wk through [facility]. he has family that live in the area and can help him should he have any needs, this will include a ride home from his sister at [place]. he uses a cane c ambulation out of the house. he denies the need for vna at [place]. dc plan is home c analog design engineer. cm to cont. to follow.
[2021-10-20 16:06] LABS: Glucose, Whole Blood 148 mg/dL (60-115)
--- NOTE | 2021-10-20 20:04 | PC.NURSE ---
900cc emptied from bedside urinal
--- NOTE | 2021-10-20 20:09 | PC.NURSE ---
BP 151/34 hospitalist notified
[2021-10-20 20:18] LABS: Glucose, Whole Blood 173 mg/dL (60-115)
[2021-10-20] MEDS: Gabapentin 600 MG TABLET PO (20:48)
[2021-10-20] MEDS: Atorvastatin Calcium 80 MG TABLET PO (20:49)
[2021-10-20] MEDS: Zolpidem Tartrate 5 MG TABLET 10 MG PO (20:49)
[2021-10-20] MEDS: Enoxaparin Sodium 30 MG/0.3 ML SYRINGE SUBCUT (20:50)
[2021-10-20] MEDS: Insulin Lispro 100 UNIT/ML 3 ML VIAL SUBCUT (20:51)
[2021-10-20] MEDS: Insulin Glargine,Hum.rec.anlog 100 UNIT/ML 10 ML VIAL 20 UNIT SUBCUT (20:52)
--- NOTE | 2021-10-20 23:03 | PC.NURSE ---
600ml emptied from bedside urinal
[2021-10-21] VITALS (10 sets, daily range): BP systolic 146–181; BP diastolic 49–74; PULSE 53–58; RESP 10–17; TEMP 35.7–36.6; O2SAT 96–100; BMI 35.3
[2021-10-21 07:44] LABS: Glucose, Whole Blood 87 mg/dL (60-115)
[2021-10-21] MEDS: Cholecalciferol (Vitamin D3) 25 MCG TABLET 50 MCG PO (08:23)
[2021-10-21] MEDS: OXcarbazepine 300 MG TABLET PO ×2 (08:23→20:54)
[2021-10-21] MEDS: Sertraline HCL 100 MG TABLET 200 MG PO (08:24)
[2021-10-21] MEDS: Isosorbide Mononitrate 30 MG TAB.ER.24H PO (08:24)
[2021-10-21] MEDS: Omeprazole 40 MG CAPSULE.DR PO (08:24)
[2021-10-21] MEDS: Perphenazine 4 MG TABLET PO ×2 (08:24→20:54)
[2021-10-21] MEDS: Furosemide 40 MG/4 ML VIAL 80 MG IVPUSH (08:24)
[2021-10-21] MEDS: carvediloL 25 MG TABLET PO ×2 (08:25→20:54)
[2021-10-21] MEDS: Doxazosin Mesylate 2 MG TABLET PO (08:25)
[2021-10-21] MEDS: Aspirin Enteric Coated 81 MG TABLET.DR PO (08:25)
[2021-10-21] MEDS: 0.9 % Sodium Chloride Flush 3 ML SYRINGE IVFLUSH ×2 (08:26→16:04)
[2021-10-21] MEDS: Isosorbide Mononitrate 60 MG TAB.ER.24H PO (09:02)
--- NOTE | 2021-10-21 09:09 | PM.PNNEP ---
Subjective Subjective Date of Service: 10/21/21 Interval history: seen and examined feels better SOB improving no other complaints Physical Exam Vital Signs: Vital Signs: Last Vital Signs Temp 96.3 F L 10/21/21 07:53 Pulse 57 10/21/21 08:25 Resp 13 10/21/21 07:53 BP 181/53 H 10/21/21 08:25 Pulse Ox 97 10/21/21 07:53 BMI result Body Mass Index 35.5 Const: General: no acute distress, alert and awake HENMT: Head: Yes normocephalic and Yes atraumatic Neck: Neck: Yes supple Resp: Auscultation: diminished lung sounds Cardio: Heart sounds: S1 normal heart sound present and S2 normal heart sound present GI: Palpation (GI): Soft to palpation and nontender Extrem: General: No edema Objective Data Labs CBC & Chem 7: 10/20/21 06:53 10/20/21 06:53 Labs: Laboratory Results - last 24 hr 10/20/21 10/20/21 10/20/21 14:32 16:02 20:15 POC Glucose 113 148 H 173 H 10/21/21 07:41 POC Glucose 87 Procedures Date of Service Date of Service: 10/21/21 Assessment & Plan Assessment and plan (1) CKD (chronic kidney disease) stage 4, GFR 15-29 ml/min: Status: Acute (2) Heart failure with preserved ejection fraction: Status: Acute (3) HTN (hypertension): Status: Acute (4) Anemia: Status: Acute Assessment and Plan: known CKD due to DM/HTN/ residual kidney function loss from prior MARNI kidney function at baseline severe restriction in free water excretion known HFpEF BP remains high currently on: isosorbide 60 mg hydralazine 100 mg tid carvedilol 25 mg bid doxazosin 2 mg furosemide REC increase doxazosin 4 mg avoid ACEi/ARB/potassium sparing agents given advanced CKD continue IV diuresis protect non dominant arm follow kidney function and electrolytes Time Spent With Patient Time: Total time spent is greater than 50% in coordination of care (as documented) at patient's floor/unit and/or counseling patient: Progress Note: Quality Stroke Does the patient have a stroke diagnosis?: No
[2021-10-21 09:14] LABS: MANUAL DIFF FLAG NO
[2021-10-21 09:18] LABS: Basophils Percent Auto 0.3 % (0-2); Eosinophils Absolute Auto 0.3 X10*3/uL (0.0-0.4); Eosinophils Percent Auto 4.3 % (0-4); Hematocrit 29.2 % (42.0-52.0); Hemoglobin 9.9 g/dl (14.0-18.0); Imm Gran Abs Auto 0.02 X10*3/uL (0.00-0.03); Imm Gran Pct Auto 0.3 % (0.0-0.4); Lymphocytes Percent Auto 17.5 % (20-40); Mean Corpuscular HGB Conc 33.9 g/dl (31.0-36.0); Mean Corpuscular Hemoglobin 30.2 pg (27.0-33.0); Mean Platelet Volume 11.7 fL (9.4-12.4); Monocytes Absolute Auto 0.4 X10*3/uL (0.1-1.2); Monocytes Percent Auto 7.4 % (2-11); Neutrophils Absolute Auto 4.1 x10*3/uL (2.0-8.3); Neutrophils Percent Auto 70.2 % (45-73); Platelet Count 145 X10*3/uL (160-400); Red Blood Count 3.28 X10*6/uL (4.60-5.80); Red Cell Distribution Width 13.2 % (11.0-16.0); White Blood Count 5.8 X10*3/uL (4.8-10.8)
[2021-10-21 09:52] LABS: B Type Natriuretic Peptide 192 pg/mL (<100)
[2021-10-21 09:58] LABS: Alanine Aminotransferase 29 U/L (0-40); Albumin Level 3.8 g/dL (3.5-5.0); Alkaline Phosphatase 86 U/L (39-117); Anion Gap 15 (12-20); Aspartate Amino Transferase 15 U/L (5-37); Bilirubin Total 0.4 mg/dL (0.0-1.0); Blood Urea Nitrogen 65 mg/dL (9-16); Calcium 7.6 mg/dL (8.4-10.2); Carbon Dioxide 26 mmol/L (22-29); Chloride 101 mmol/L (96-108); Creatinine Clr Calc Pharmacy 22.1; Estimated Glomerular Filt Rate 13; Glucose Fasting 138 mg/dL (60-99); Potassium 3.4 mmol/L (3.3-5.1); Sodium 139 mmol/L (135-145); Total Protein 6.8 g/dL (6.5-8.0)
--- NOTE | 2021-10-21 10:32 | P.PNCA_ITS ---
Subjective Subjective Date of Service: 10/21/21 Interval history: Feels ok. No new complaints. Review of Systems Review of Systems Yes all other systems are reviewed and are negative Cardiovascular: Reports as per HPI, Reports no additional cardiovascular complaints, Denies acrocyanosis, Denies cool extremities, Denies painful fingertips, Denies chest pain, Denies chest pain at rest, Denies diaphoresis, Denies syncope, Denies irregular heart rhythm, Denies claudication, Denies leg edema, Denies lightheadedness, Denies palpitations and Reports dyspnea Respiratory: Reports dyspnea Denies syncope Endocrine: Denies palpitations Physical Exam Vital Signs: Last Vital Signs Temp 96.3 F L 10/21/21 07:53 Pulse 57 10/21/21 08:25 Resp 13 10/21/21 07:53 BP 181/53 H 10/21/21 08:25 Pulse Ox 97 10/21/21 07:53 BMI result Body Mass Index 35.5 Const General: no acute distress HENMT Other: Unremarkable Neck Neck: Yes normal visual inspection Chest Chest palpation & inspection: normal inspection of the chest Resp Auscultation: no crackles and no wheezes Cardio Palpation: normal PMI Heart sounds: S1 normal heart sound present, S2 normal heart sound present, no gallops, no murmurs and no rubs GI Palpation (GI): Soft to palpation Back/Spine/Pelvis Other: unremarkable Skin Lesions: other Neuro Cranial nerves: Yes Other cranial nerve findings present Extrem General: Yes other Psych Mental Status: other Objective Labs and Meds Result diagrams: 10/21/21 09:07 10/21/21 09:07 Lab results: Laboratory Results - last 24 hr 10/20/21 10/20/21 10/20/21 14:32 16:02 20:15 WBC RBC Hgb Hct MCV MCH MCHC RDW Plt Count MPV Immature Gran % (Auto) Neut % (Auto) Lymph % (Auto) [place] % (Auto) Eos % (Auto) Baso % (Auto) Lymph # (Auto) [place] # (Auto) Eos # (Auto) Baso # (Auto) Abs Immat Gran (auto) Absolute Neuts (auto) Absolute Nucleated RBC Nucleated RBC % (auto) Sodium Potassium Chloride Carbon Dioxide Anion Gap BUN Creatinine Estim Creat Clear Calc Estimated GFR POC Glucose 113 148 H 173 H Random Glucose Fasting Glucose Calcium Total Bilirubin AST ALT Alkaline Phosphatase B-Natriuretic Peptide Total Protein Albumin 10/21/21 10/21/21 10/21/21 07:41 09:07 09:07 WBC RBC Hgb Hct MCV MCH MCHC RDW Plt Count MPV Immature Gran % (Auto) Neut % (Auto) Lymph % (Auto) [place] % (Auto) Eos % (Auto) Baso % (Auto) Lymph # (Auto) [place] # (Auto) Eos # (Auto) Baso # (Auto) Abs Immat Gran (auto) Absolute Neuts (auto) Absolute Nucleated RBC Nucleated RBC % (auto) Sodium 139 Potassium 3.4 Chloride 101 Carbon Dioxide 26 Anion Gap 15 BUN 65 H Creatinine 4.54 H* Estim Creat Clear Calc 22.1 Estimated GFR 13 POC Glucose 87 Random Glucose TNP Fasting Glucose 138 H Calcium 7.6 L Total Bilirubin 0.4 AST 15 ALT 29 Alkaline Phosphatase 86 B-Natriuretic Peptide 192 H Total Protein 6.8 Albumin 3.8 10/21/21 09:07 WBC 5.8 RBC 3.28 L Hgb 9.9 L Hct 29.2 L MCV 89.0 MCH 30.2 MCHC 33.9 RDW 13.2 Plt Count 145 L MPV 11.7 Immature Gran % (Auto) 0.3 Neut % (Auto) 70.2 Lymph % (Auto) 17.5 L [place] % (Auto) 7.4 Eos % (Auto) 4.3 H Baso % (Auto) 0.3 Lymph # (Auto) 1.0 L [place] # (Auto) 0.4 Eos # (Auto) 0.3 Baso # (Auto) 0.0 Abs Immat Gran (auto) 0.02 Absolute Neuts (auto) 4.1 Absolute Nucleated RBC 0.000 Nucleated RBC % (auto) 0.0 Sodium Potassium Chloride Carbon Dioxide Anion Gap BUN Creatinine Estim Creat Clear Calc Estimated GFR POC Glucose Random Glucose Fasting Glucose Calcium Total Bilirubin AST ALT Alkaline Phosphatase B-Natriuretic Peptide Total Protein Albumin Progress Note: A&P Assessment and plan (1) Acute on chronic heart failure with preserved ejection fraction (HFpEF): Status: Acute (2) Hypertensive emergency: Status: Acute (3) Chronic kidney disease, stage 4 (severe): Status: Acute (4) Diabetes mellitus with hyperglycemia, with long-term current use of insulin: Status: Acute Assessment and Plan: Last echocardiogram from July shows LVEF 65-70% with severe left ventricular hypertrophy. Moderately dilated left atrium. Myocardial perfusion imaging study in the past at shown normal perfusion. Overall, primary issue is uncontrolled hypertension in the context of advanced renal disease. His creatinine is 4.29 and BUN is 59. Troponins are slightly high at 40 and 39 but that is related to uncontrolled hypertension itself. Peak blood pressures almost 216/74 mm Hg but today's reading seems lower; still not in optimal range. Current regimen as listed includes carvedilol, hydralazine, Imdur, doxazosin, nifedipine. Increase Imdur to 60mg and then 120mg daily as neeeded. Cardura dose can also be increased-8mg/day (currently 2mg bid). Diuretics guided by Nephrology due to advanced renal disease. Discussed with . Fall Risk Details Current Medications: Current Medications Acetaminophen (Acetaminophen 325 Mg Tablet) 650 mg PO Q6H PRN PRN Reason: Pain, Mild (Pain Scale 1-3) Albuterol/Ipratropium (Albuterol/Iprat 2.5/0.5mg 3 Ml Ampul.Neb) 3 ml INHALE RQ4H PRN PRN Reason: Shortness of Breath/Wheezing Aspirin (Aspirin Enteric Coated 81 Mg Tablet.) 81 mg PO DAILY [facility] Last Admin: 10/21/21 08:25 Dose: 81 mg Documented by: Atorvastatin Calcium (Atorvastatin Calcium 80 Mg Tablet) 80 mg PO BEDTIME [facility] Last Admin: 10/20/21 20:49 Dose: 80 mg Documented by: Carvedilol (Carvedilol 25 Mg Tablet) 25 mg PO BID [facility]; Protocol Last Admin: 10/21/21 08:25 Dose: 25 mg Documented by: Dextrose (Dextrose 50 % 25 Gm/50 Ml Vial) 25 gm IVPUSH Q15M PRN; Protocol PRN Reason: per Hypoglycemia Standing Ord. Doxazosin Mesylate (Doxazosin Mesylate 2 Mg Tablet) 2 mg PO BID [facility]; Protocol Last Admin: 10/21/21 08:25 Dose: 2 mg Documented by: Enoxaparin Sodium (Enoxaparin Sodium 30 Mg/0.3 Ml Syringe) 30 mg SUBCUT Q24H [facility] Last Admin: 10/20/21 20:50 Dose: 30 mg Documented by: Furosemide (Furosemide 40 Mg/4 Ml Vial) 80 mg IVPUSH BIDWM [facility]; Protocol Last Admin: 10/21/21 08:24 Dose: 80 mg Documented by: Gabapentin (Gabapentin 600 Mg Tablet) 300 mg PO BEDTIME [facility] Glucose (Glucose Gel 15 Gm Gel..Gram.) 15 gm PO Q15M PRN; Protocol PRN Reason: per Hypoglycemia Standing Ord. Hydralazine HCl (Hydralazine Hcl 50 Mg Tablet) 100 mg PO TID [facility]; Protocol Last Admin: 10/20/21 15:00 Dose: 100 mg Documented by: Insulin Glargine (Insulin Glargine,Hum.Rec.Anlog 100 Unit/Ml 10 Ml Vial) 20 unit SUBCUT BEDTIME [facility] Last Admin: 10/20/21 20:52 Dose: 20 unit Documented by: Insulin Human Lispro (Insulin Lispro 100 Unit/Ml 3 Ml Vial) 0 unit SUBCUT QIDACHS [facility]; Protocol Last Admin: 10/21/21 08:26 Dose: Not Given Documented by: Isosorbide Mononitrate (Isosorbide Mononitrate 60 Mg Tab.Er.24h) 60 mg PO DAILY [facility]; Protocol Last Admin: 10/21/21 09:02 Dose: 60 mg Documented by: Melatonin (Melatonin 3 Mg Tablet) 6 mg PO BEDTIME PRN PRN Reason: Insomnia Nifedipine (Nifedipine Er 60 Mg Tab.Er.24) 120 mg PO BEDTIME [facility] Last Admin: 10/19/21 21:43 Dose: 120 mg Documented by: Omeprazole (Omeprazole 40 Mg Capsule.Dr) 40 mg PO DAILY@0630 [facility] Last Admin: 10/21/21 08:24 Dose: 40 mg Documented by: Oxcarbazepine (Oxcarbazepine 300 Mg Tablet) 300 mg PO BID [facility] Last Admin: 10/21/21 08:23 Dose: 300 mg Documented by: Perphenazine (Perphenazine 4 Mg Tablet) 4 mg PO BID [facility] Last Admin: 10/21/21 08:24 Dose: 4 mg Documented by: Pharmacy Consult (Consult Rx Perform Med Rec) 1 each MISCELLANE ONCE PRN PRN Reason: Consult order Senna (Sennosides 8.6 Mg Tablet) 17.2 mg PO BEDTIME PRN PRN Reason: Constipation Sertraline HCl (Sertraline Hcl 100 Mg Tablet) 200 mg PO DAILY [facility] Last Admin: 10/21/21 08:24 Dose: 200 mg Documented by: Sodium Chloride (0.9 % Sodium Chloride Flush 3 Ml Syringe) 3 ml IVFLUSH QSHIFT [facility] Last Admin: 10/21/21 08:26 Dose: 3 ml Documented by: Tramadol HCl (Tramadol Hcl 50 Mg Tablet) 100 mg PO Q8H PRN PRN Reason: Pain (Scale Score 4-6) Vitamin D (Cholecalciferol (Vitamin D3) 25 Mcg Tablet) 50 mcg PO DAILY [facility] Last Admin: 10/21/21 08:23 Dose: 50 mcg Documented by: Zolpidem Tartrate (Zolpidem Tartrate 5 Mg Tablet) 10 mg PO BEDTIME [facility] Last Admin: 10/20/21 20:49 Dose: 10 mg Documented by: Time Spent With Patient Time: Total time spent is greater than 50% in coordination of care (as documented) at patient's floor/unit and/or counseling patient: Time with patient: less than 15 minutes Progress Note: Quality Stroke Does the patient have a stroke diagnosis?: No Procedures Date of Service Date of Service: 10/21/21
--- NOTE | 2021-10-21 11:45 | HO.PM.IMPN ---
Subjective Subjective Date of Service: 10/21/21 Interval History: The patient was seen and evaluated this morning Laying in bed, feels Better today as breathing improving Denies any fever, chills or s chest pain No reported other overnight events. Systemic review: No fever, chills or weakness dyspnea with exertion No shortness of breath or coughing No abdominal pain, nausea or vomiting No urinary symptoms No any rash or wounds Physical Exam Vital Signs: Vital Signs: Last Vital Signs Temp 96.3 F L 10/21/21 07:53 Pulse 57 10/21/21 08:25 Resp 13 10/21/21 07:53 BP 181/53 H 10/21/21 08:25 Pulse Ox 97 10/21/21 07:53 BMI result Body Mass Index 35.5 Const: Other: Constitutional : Alert, oriented, not in distress Neck : Normal inspection, Supple Cardiovascular : RRR, S1 S2, trace bilateral lower extremity edema Respiratory : fair bilateral air entry, basal very fine crackles, no wheezes or rhonchi Gastrointestinal: soft, lax, Normal bowel sounds, Non tender Skin : Warm, Dry Neurological : Alert & oriented x3, No focal deficit Objective Data Active Medications Acetaminophen (Acetaminophen 325 Mg Tablet) 650 mg PO Q6H PRN PRN Reason: Pain, Mild (Pain Scale 1-3) Albuterol/Ipratropium (Albuterol/Iprat 2.5/0.5mg 3 Ml Ampul.Neb) 3 ml INHALE RQ4H PRN PRN Reason: Shortness of Breath/Wheezing Aspirin (Aspirin Enteric Coated 81 Mg Tablet.) 81 mg PO DAILY [facility] Last Admin: 10/21/21 08:25 Dose: 81 mg Documented by: ALKA Atorvastatin Calcium (Atorvastatin Calcium 80 Mg Tablet) 80 mg PO BEDTIME [facility] Last Admin: 10/20/21 20:49 Dose: 80 mg Documented by: SUSIE Carvedilol (Carvedilol 25 Mg Tablet) 25 mg PO BID [facility]; Protocol Last Admin: 10/21/21 08:25 Dose: 25 mg Documented by: ALKA Dextrose (Dextrose 50 % 25 Gm/50 Ml Vial) 25 gm IVPUSH Q15M PRN; Protocol PRN Reason: per Hypoglycemia Standing Ord. Doxazosin Mesylate (Doxazosin Mesylate 2 Mg Tablet) 2 mg PO BID [facility]; Protocol Last Admin: 10/21/21 08:25 Dose: 2 mg Documented by: ALKA Enoxaparin Sodium (Enoxaparin Sodium 30 Mg/0.3 Ml Syringe) 30 mg SUBCUT Q24H [facility] Last Admin: 10/20/21 20:50 Dose: 30 mg Documented by: SUSIE Furosemide (Furosemide 40 Mg/4 Ml Vial) 80 mg IVPUSH BIDWM [facility]; Protocol Last Admin: 10/21/21 08:24 Dose: 80 mg Documented by: ALKA Gabapentin (Gabapentin 600 Mg Tablet) 300 mg PO BEDTIME [facility] Glucose (Glucose Gel 15 Gm Gel..Gram.) 15 gm PO Q15M PRN; Protocol PRN Reason: per Hypoglycemia Standing Ord. Hydralazine HCl (Hydralazine Hcl 50 Mg Tablet) 100 mg PO TID [facility]; Protocol Last Admin: 10/20/21 15:00 Dose: 100 mg Documented by: TIFFANI Insulin Glargine (Insulin Glargine,Hum.Rec.Anlog 100 Unit/Ml 10 Ml Vial) 20 unit SUBCUT BEDTIME [facility] Last Admin: 10/20/21 20:52 Dose: 20 unit Documented by: SUSIE Insulin Human Lispro (Insulin Lispro 100 Unit/Ml 3 Ml Vial) 0 unit SUBCUT QIDACHS [facility]; Protocol Last Admin: 10/21/21 08:26 Dose: Not Given Documented by: ALKA Non-Admin Reason: No Insulin Coverage Isosorbide Mononitrate (Isosorbide Mononitrate 60 Mg Tab.Er.24h) 60 mg PO DAILY [facility]; Protocol Last Admin: 10/21/21 09:02 Dose: 60 mg Documented by: ALKA Melatonin (Melatonin 3 Mg Tablet) 6 mg PO BEDTIME PRN PRN Reason: Insomnia Nifedipine (Nifedipine Er 60 Mg Tab.Er.24) 120 mg PO BEDTIME [facility] Last Admin: 10/19/21 21:43 Dose: 120 mg Documented by: MARIAMA Omeprazole (Omeprazole 40 Mg Capsule.) 40 mg PO DAILY@0630 [facility] Last Admin: 10/21/21 08:24 Dose: 40 mg Documented by: ALKA Oxcarbazepine (Oxcarbazepine 300 Mg Tablet) 300 mg PO BID [facility] Last Admin: 10/21/21 08:23 Dose: 300 mg Documented by: ALKA Perphenazine (Perphenazine 4 Mg Tablet) 4 mg PO BID [facility] Last Admin: 10/21/21 08:24 Dose: 4 mg Documented by: ALKA Pharmacy Consult (Consult Rx Perform Med Rec) 1 each MISCELLANE ONCE PRN PRN Reason: Consult order Senna (Sennosides 8.6 Mg Tablet) 17.2 mg PO BEDTIME PRN PRN Reason: Constipation Sertraline HCl (Sertraline Hcl 100 Mg Tablet) 200 mg PO DAILY [facility] Last Admin: 10/21/21 08:24 Dose: 200 mg Documented by: ALKA Sodium Chloride (0.9 % Sodium Chloride Flush 3 Ml Syringe) 3 ml IVFLUSH QSHIFT [facility] Last Admin: 10/21/21 08:26 Dose: 3 ml Documented by: ALKA Tramadol HCl (Tramadol Hcl 50 Mg Tablet) 100 mg PO Q8H PRN PRN Reason: Pain (Scale Score 4-6) Vitamin D (Cholecalciferol (Vitamin D3) 25 Mcg Tablet) 50 mcg PO DAILY [facility] Last Admin: 10/21/21 08:23 Dose: 50 mcg Documented by: ALKA Zolpidem Tartrate (Zolpidem Tartrate 5 Mg Tablet) 10 mg PO BEDTIME [facility] Last Admin: 10/20/21 20:49 Dose: 10 mg Documented by: SUSIE Labs CBC & Chem 7: 10/21/21 09:07 10/21/21 09:07 Labs: Laboratory Results - last 24 hr 10/20/21 10/20/21 10/20/21 14:32 16:02 20:15 MCV MCH MCHC RDW Plt Count MPV Immature Gran % (Auto) Neut % (Auto) Lymph % (Auto) [place] % (Auto) Eos % (Auto) Baso % (Auto) Lymph # (Auto) [place] # (Auto) Eos # (Auto) Baso # (Auto) Abs Immat Gran (auto) Absolute Neuts (auto) Absolute Nucleated RBC Nucleated RBC % (auto) Anion Gap Estim Creat Clear Calc Estimated GFR POC Glucose 113 148 H 173 H Random Glucose Fasting Glucose Calcium Total Bilirubin AST ALT Alkaline Phosphatase B-Natriuretic Peptide Total Protein Albumin 10/21/21 10/21/21 10/21/21 07:41 09:07 09:07 MCV MCH MCHC RDW Plt Count MPV Immature Gran % (Auto) Neut % (Auto) Lymph % (Auto) [place] % (Auto) Eos % (Auto) Baso % (Auto) Lymph # (Auto) [place] # (Auto) Eos # (Auto) Baso # (Auto) Abs Immat Gran (auto) Absolute Neuts (auto) Absolute Nucleated RBC Nucleated RBC % (auto) Anion Gap 15 Estim Creat Clear Calc 22.1 Estimated GFR 13 POC Glucose 87 Random Glucose TNP Fasting Glucose 138 H Calcium 7.6 L Total Bilirubin 0.4 AST 15 ALT 29 Alkaline Phosphatase 86 B-Natriuretic Peptide 192 H Total Protein 6.8 Albumin 3.8 10/21/21 09:07 MCV 89.0 MCH 30.2 MCHC 33.9 RDW 13.2 Plt Count 145 L MPV 11.7 Immature Gran % (Auto) 0.3 Neut % (Auto) 70.2 Lymph % (Auto) 17.5 L [place] % (Auto) 7.4 Eos % (Auto) 4.3 H Baso % (Auto) 0.3 Lymph # (Auto) 1.0 L [place] # (Auto) 0.4 Eos # (Auto) 0.3 Baso # (Auto) 0.0 Abs Immat Gran (auto) 0.02 Absolute Neuts (auto) 4.1 Absolute Nucleated RBC 0.000 Nucleated RBC % (auto) 0.0 Anion Gap Estim Creat Clear Calc Estimated GFR POC Glucose Random Glucose Fasting Glucose Calcium Total Bilirubin AST ALT Alkaline Phosphatase B-Natriuretic Peptide Total Protein Albumin Assessment and Plan (1) Hypertensive emergency: Status: Acute (2) Heart failure with preserved ejection fraction: Status: Acute Assessment and Plan: ?61-year-old male with a past medical history of hypertension, hyperlipidemia, diabetes, HFpEFf, CKD stage 4, asthma/COPD, BRENDA, anxiety, depression, history of pancreatitis presented to the hospital with a chief complaint of generalized weakness/shortness of breath.? Noted to be in acutehypertensive urgency.? Admitted for further management.? 1- Acute on chronic diastolic CHF exacerbation 2- 2/2 Hypertensive emergency for still significantly elevated Likely result of poor compliance Continue IV Lasix b.i.d. for now Continue Coreg/Cardura/Hydralazine/Isosorbide/Nifedipine as ordered. increase isosorbide to 60 Increase Cardura to 8 and changed to bedtime Monitor intake and output Cardiology input appreciated 3- CKD nephrology input appreciated, reduce gabapentin Follow BMP 4- DMII Continue outpatient therapies Cover with Sliding Scale DVT Lovenox/Full code Quality Stroke Does the patient have a stroke diagnosis?: No VTE Prior VTE?: No VTE Risk Level:: Medical - moderate - high VTE Device Contraindication: Treatment Not Indicated VTE Drug Contraindication: N/A - Med Ordered
[2021-10-21 11:51] LABS: Glucose, Whole Blood 118 mg/dL (60-115)
[2021-10-21 13:37] LABS: Glucose, Whole Blood 109 mg/dL (60-115)
[2021-10-21 17:12] LABS: Glucose, Whole Blood 159 mg/dL (60-115)
--- NOTE | 2021-10-21 17:32 | PC.NURSE ---
PT HAS BEEN OOB ADLIB, AXO4 AMB WITH STEADY GAIT. TOLERATING PO. PT NEEDS BEING MET
[2021-10-21] MEDS: Insulin Lispro 100 UNIT/ML 3 ML VIAL SUBCUT (18:05)
[2021-10-21] MEDS: Furosemide 40 MG TABLET 80 MG PO (18:06)
[2021-10-21 20:51] LABS: Glucose, Whole Blood 115 mg/dL (60-115)
[2021-10-21] MEDS: Gabapentin 600 MG TABLET 300 MG PO (20:53)
[2021-10-21] MEDS: Atorvastatin Calcium 80 MG TABLET PO (20:54)
[2021-10-21] MEDS: Zolpidem Tartrate 5 MG TABLET 10 MG PO (20:54)
[2021-10-21] MEDS: Doxazosin Mesylate 2 MG TABLET 8 MG PO (20:55)
[2021-10-21] MEDS: Insulin Glargine,Hum.rec.anlog 100 UNIT/ML 10 ML VIAL 20 UNIT SUBCUT (21:05)
[2021-10-21] MEDS: Enoxaparin Sodium 30 MG/0.3 ML SYRINGE SUBCUT (21:05)
--- NOTE | 2021-10-21 21:07 | PC.NURSE ---
pt given evening snack when treated with evening insulin. pt watching tv denies pain, skin pink warm and dry. no s/s of resp distress.
[2021-10-22 03:33] VITALS: BP 188/76; PULSE 55; RESP 20; TEMP 36.7; O2SAT 100
[2021-10-22] MEDS: Omeprazole 40 MG CAPSULE.DR PO (05:17)
[2021-10-22 05:21] VITALS: BP 168/70
[2021-10-22 06:00] VITALS: BMI 34.8
[2021-10-22 07:09] LABS: MANUAL DIFF FLAG NO
[2021-10-22 07:13] LABS: Basophils Percent Auto 0.3 % (0-2); Eosinophils Absolute Auto 0.3 X10*3/uL (0.0-0.4); Hematocrit 27.8 % (42.0-52.0); Hemoglobin 9.6 g/dl (14.0-18.0); Imm Gran Abs Auto 0.02 X10*3/uL (0.00-0.03); Imm Gran Pct Auto 0.3 % (0.0-0.4); Lymphocytes Absolute Auto 1.2 X10*3/uL (1.2-4.9); Mean Corpuscular HGB Conc 34.5 g/dl (31.0-36.0); Mean Corpuscular Hemoglobin 30.4 pg (27.0-33.0); Mean Platelet Volume 11.8 fL (9.4-12.4); Monocytes Absolute Auto 0.5 X10*3/uL (0.1-1.2); Monocytes Percent Auto 7.7 % (2-11); Neutrophils Absolute Auto 3.8 x10*3/uL (2.0-8.3); Neutrophils Percent Auto 65.7 % (45-73); Platelet Count 143 X10*3/uL (160-400); Red Blood Count 3.16 X10*6/uL (4.60-5.80); Red Cell Distribution Width 12.8 % (11.0-16.0); White Blood Count 5.9 X10*3/uL (4.8-10.8)
[2021-10-22 07:31] LABS: B Type Natriuretic Peptide 242 pg/mL (<100)
[2021-10-22 07:32] VITALS: BP 165/70; PULSE 55; RESP 20; TEMP 36.8; O2SAT 100
[2021-10-22 07:41] LABS: Alanine Aminotransferase 26 U/L (0-40); Albumin Level 3.8 g/dL (3.5-5.0); Alkaline Phosphatase 85 U/L (39-117); Anion Gap 14 (12-20); Aspartate Amino Transferase 14 U/L (5-37); Bilirubin Total 0.4 mg/dL (0.0-1.0); Blood Urea Nitrogen 66 mg/dL (9-16); Calcium 7.6 mg/dL (8.4-10.2); Carbon Dioxide 29 mmol/L (22-29); Chloride 101 mmol/L (96-108); Creatinine Clr Calc Pharmacy 22.2; Estimated Glomerular Filt Rate 14; Glucose Fasting 118 mg/dL (60-99); Potassium 3.2 mmol/L (3.3-5.1); Sodium 141 mmol/L (135-145); Total Protein 6.7 g/dL (6.5-8.0)
[2021-10-22 07:43] LABS: Glucose, Whole Blood 99 mg/dL (60-115)
[2021-10-22] MEDS: Sertraline HCL 100 MG TABLET 200 MG PO (08:41)
[2021-10-22] MEDS: Torsemide 20 MG TABLET 80 MG PO (08:41)
[2021-10-22] MEDS: Cholecalciferol (Vitamin D3) 25 MCG TABLET 50 MCG PO (08:41)
[2021-10-22] MEDS: Potassium Chloride ER 20 MEQ TAB.ER.PRT 40 MEQ PO (08:41)
[2021-10-22] MEDS: 0.9 % Sodium Chloride Flush 3 ML SYRINGE IVFLUSH (08:41)
[2021-10-22 08:42] VITALS: BP 165/70; PULSE 63
[2021-10-22] MEDS: Perphenazine 4 MG TABLET PO (08:42)
[2021-10-22] MEDS: OXcarbazepine 300 MG TABLET PO (08:42)
[2021-10-22] MEDS: Isosorbide Mononitrate 60 MG TAB.ER.24H 120 MG PO (08:42)
[2021-10-22] MEDS: carvediloL 25 MG TABLET PO (08:42)
[2021-10-22] MEDS: Aspirin Enteric Coated 81 MG TABLET.DR PO (08:42)
--- NOTE | 2021-10-22 10:08 | PM.PNNEP ---
Subjective Subjective Date of Service: 10/22/21 Interval history: seen and examined no complaints feels better Physical Exam Vital Signs: Vital Signs: Last Vital Signs Temp 98.3 F 10/22/21 07:32 Pulse 63 10/22/21 08:42 Resp 20 10/22/21 07:32 BP 165/70 H 10/22/21 08:42 Pulse Ox 100 10/22/21 07:32 BMI result Body Mass Index 34.8 Const: General: no acute distress, alert and awake HENMT: Head: Yes normocephalic and Yes atraumatic Neck: Neck: Yes supple Resp: Auscultation: diminished lung sounds Cardio: Heart sounds: S1 normal heart sound present and S2 normal heart sound present GI: Palpation (GI): Soft to palpation and nontender Extrem: General: No edema Objective Data Labs CBC & Chem 7: 10/22/21 06:58 10/22/21 06:58 Labs: Laboratory Results - last 24 hr 10/21/21 10/21/21 10/21/21 11:48 13:32 17:08 WBC RBC Hgb Hct MCV MCH MCHC RDW Plt Count MPV Immature Gran % (Auto) Neut % (Auto) Lymph % (Auto) [place] % (Auto) Eos % (Auto) Baso % (Auto) Lymph # (Auto) [place] # (Auto) Eos # (Auto) Baso # (Auto) Abs Immat Gran (auto) Absolute Neuts (auto) Absolute Nucleated RBC Nucleated RBC % (auto) Sodium Potassium Chloride Carbon Dioxide Anion Gap BUN Creatinine Estim Creat Clear Calc Estimated GFR POC Glucose 118 H 109 159 H Fasting Glucose Calcium Total Bilirubin AST ALT Alkaline Phosphatase B-Natriuretic Peptide Total Protein Albumin 10/21/21 10/22/21 10/22/21 20:48 06:58 06:58 WBC 5.9 RBC 3.16 L Hgb 9.6 L Hct 27.8 L MCV 88.0 MCH 30.4 MCHC 34.5 RDW 12.8 Plt Count 143 L MPV 11.8 Immature Gran % (Auto) 0.3 Neut % (Auto) 65.7 Lymph % (Auto) 21.0 [place] % (Auto) 7.7 Eos % (Auto) 5.0 H Baso % (Auto) 0.3 Lymph # (Auto) 1.2 [place] # (Auto) 0.5 Eos # (Auto) 0.3 Baso # (Auto) 0.0 Abs Immat Gran (auto) 0.02 Absolute Neuts (auto) 3.8 Absolute Nucleated RBC 0.000 Nucleated RBC % (auto) 0.0 Sodium Potassium Chloride Carbon Dioxide Anion Gap BUN Creatinine Estim Creat Clear Calc Estimated GFR POC Glucose 115 Fasting Glucose Calcium Total Bilirubin AST ALT Alkaline Phosphatase B-Natriuretic Peptide 242 H Total Protein Albumin 10/22/21 10/22/21 06:58 07:34 WBC RBC Hgb Hct MCV MCH MCHC RDW Plt Count MPV Immature Gran % (Auto) Neut % (Auto) Lymph % (Auto) [place] % (Auto) Eos % (Auto) Baso % (Auto) Lymph # (Auto) [place] # (Auto) Eos # (Auto) Baso # (Auto) Abs Immat Gran (auto) Absolute Neuts (auto) Absolute Nucleated RBC Nucleated RBC % (auto) Sodium 141 Potassium 3.2 L Chloride 101 Carbon Dioxide 29 Anion Gap 14 BUN 66 H Creatinine 4.46 H* Estim Creat Clear Calc 22.2 Estimated GFR 14 POC Glucose 99 Fasting Glucose 118 H Calcium 7.6 L Total Bilirubin 0.4 AST 14 ALT 26 Alkaline Phosphatase 85 B-Natriuretic Peptide Total Protein 6.7 Albumin 3.8 Procedures Date of Service Date of Service: 10/22/21 Assessment & Plan Assessment and plan (1) CKD (chronic kidney disease) stage 4, GFR 15-29 ml/min: Status: Acute (2) Heart failure with preserved ejection fraction: Status: Acute (3) HTN (hypertension): Status: Acute (4) Anemia: Status: Acute Assessment and Plan: kidney function at baseline known CKD due to DM/HTN/ residual kidney function loss from prior MARNI severe restriction in free water excretion known HFpEF BP improved but remains high REC replace potassium (0rdered 20 meq po x 1) can change nifedipine to 90 mg bid avoid ACEi/ARB/potassium sparing agents given advanced CKD transition to oral loop diuretics protect non dominant arm follow kidney function and electrolytes Time Spent With Patient Time: Total time spent is greater than 50% in coordination of care (as documented) at patient's floor/unit and/or counseling patient: Progress Note: Quality Stroke Does the patient have a stroke diagnosis?: No
--- NOTE | 2021-10-22 10:11 | PM.DS ---
DS: Providers Provider Date of Service: 10/22/21 Date of admission: 10/18/21 21:57 Primary care physician: Nuvia Crook NP Consults: 10/18/21 21:57 Consult to Cardiology Routine Consulting Provider: Basim Horne Reason for consultation: acute CHF; HTN urgency 10/19/21 15:30 Consult to Nephrology Routine Consulting Provider: Renard Ritchie Reason for consultation: MARNI Has provider been notified: No DS: Diagnosis Discharge Diagnosis (1) CKD (chronic kidney disease) stage 4, GFR 15-29 ml/min: Status: Acute (2) Heart failure with preserved ejection fraction: Status: Acute (3) Acute on chronic heart failure with preserved ejection fraction (HFpEF): Status: Acute (4) Hypertensive emergency: Status: Acute DS: Summary Hospital Course Hospital Course: Admission note HPI 61-year-old male with a past medical history of hypertension, hyperlipidemia, diabetes, HFpEFf, CKD stage 4, asthma/COPD, BRENDA, anxiety, depression, history of pancreatitis presented to the hospital with a chief complaint of generalized weakness/shortness of breath.? Patient reports that he has been having shortness of breath and generalized weakness going on for the past 1 week.? His shortness of breath worsens on exertion.? Mentioned that he has been complaint with his home medications.? Denies any fever chills and cough.? Denies any chest pain or palpitations.? Mentioned that he is getting out of breath with minimal activity; hence presented to the hospital for further evaluation.? Denies any numbness tingling or focal weakness.? Denies any falls.? Denies any urinary symptoms.? Per ER team patient on presentation noted to have crackles; findings consistent with acute CHF; patient also noted to have elevated blood pressure with systolic in 200s; given IV Lasix and hydralazine with slight improvement in blood pressure.? After Lasix patient put out leg 300 cc of urine.? Respiratory status improved.? When tried to ambulate the patient patient became tachypneic.? Admitted to the hospital for acute CHF exacerbation. Hospital course Patient was admitted for evaluation of difficulty breathing. Found to be in hypertensive emergency with elevated blood pressure of 210 systolic. Treated with IV and oral medications with some response at that time admitted for treatment of CHF exacerbation as CXR showed and BNP was elevated. Started on IV diuretics with good response as he was weaned down the oxygen requirement to room air. Evaluated by Cardiology and Nephrology during this hospital stay with adjusting his home medications to increase isosorbide to 120, Cardura to 8 and changed to bedtime. Patient CKD remains stable. To be followed as outpatient by Nephrology after decreasing the dose of gabapentin to 300. To follow up with Cardiology and Nephrology as outpatient Monitor his weight and blood pressure at home and report readings to PCP Time Spent with Patient Time attestation: Total time spent providing and/or coordinating discharge services: Discharge coordination time: Greater than 30 minutes Quality: Stroke Does the patient have a stroke diagnosis?: No Physical Exam Vital Signs: Vital Signs: Last Vital Signs Temp 98.3 F 10/22/21 07:32 Pulse 63 10/22/21 08:42 Resp 20 10/22/21 07:32 BP 165/70 H 10/22/21 08:42 Pulse Ox 100 10/22/21 07:32 BMI result Body Mass Index 34.8 Const: Other: Constitutional : Alert, oriented, not in distress Neck : Normal inspection, Supple Cardiovascular : RRR, S1 S2, no lower extremity edema Respiratory : fair bilateral air entry, no basal crackles, no wheezes or rhonchi Gastrointestinal: soft, lax, Normal bowel sounds, Non tender Skin : Warm, Dry Neurological : Alert & oriented x3, No focal deficit DS: Data Data Completed and Pending Completed studies during hospitalization [Text1]: Procedures Excision of Duodenum, Via Natural or Artificial Opening Endoscopic, Diagnostic (02/03/21) Labs on day of discharge: Laboratory Results - last 24 hr 10/21/21 10/21/21 10/21/21 11:48 13:32 17:08 WBC RBC Hgb Hct MCV MCH MCHC RDW Plt Count MPV Immature Gran % (Auto) Neut % (Auto) Lymph % (Auto) [place] % (Auto) Eos % (Auto) Baso % (Auto) Lymph # (Auto) [place] # (Auto) Eos # (Auto) Baso # (Auto) Abs Immat Gran (auto) Absolute Neuts (auto) Absolute Nucleated RBC Nucleated RBC % (auto) Sodium Potassium Chloride Carbon Dioxide Anion Gap BUN Creatinine Estim Creat Clear Calc Estimated GFR POC Glucose 118 H 109 159 H Fasting Glucose Calcium Total Bilirubin AST ALT Alkaline Phosphatase B-Natriuretic Peptide Total Protein Albumin 10/21/21 10/22/21 10/22/21 20:48 06:58 06:58 WBC 5.9 RBC 3.16 L Hgb 9.6 L Hct 27.8 L MCV 88.0 MCH 30.4 MCHC 34.5 RDW 12.8 Plt Count 143 L MPV 11.8 Immature Gran % (Auto) 0.3 Neut % (Auto) 65.7 Lymph % (Auto) 21.0 [place] % (Auto) 7.7 Eos % (Auto) 5.0 H Baso % (Auto) 0.3 Lymph # (Auto) 1.2 [place] # (Auto) 0.5 Eos # (Auto) 0.3 Baso # (Auto) 0.0 Abs Immat Gran (auto) 0.02 Absolute Neuts (auto) 3.8 Absolute Nucleated RBC 0.000 Nucleated RBC % (auto) 0.0 Sodium Potassium Chloride Carbon Dioxide Anion Gap BUN Creatinine Estim Creat Clear Calc Estimated GFR POC Glucose 115 Fasting Glucose Calcium Total Bilirubin AST ALT Alkaline Phosphatase B-Natriuretic Peptide 242 H Total Protein Albumin 10/22/21 10/22/21 06:58 07:34 WBC RBC Hgb Hct MCV MCH MCHC RDW Plt Count MPV Immature Gran % (Auto) Neut % (Auto) Lymph % (Auto) [place] % (Auto) Eos % (Auto) Baso % (Auto) Lymph # (Auto) [place] # (Auto) Eos # (Auto) Baso # (Auto) Abs Immat Gran (auto) Absolute Neuts (auto) Absolute Nucleated RBC Nucleated RBC % (auto) Sodium 141 Potassium 3.2 L Chloride 101 Carbon Dioxide 29 Anion Gap 14 BUN 66 H Creatinine 4.46 H* Estim Creat Clear Calc 22.2 Estimated GFR 14 POC Glucose 99 Fasting Glucose 118 H Calcium 7.6 L Total Bilirubin 0.4 AST 14 ALT 26 Alkaline Phosphatase 85 B-Natriuretic Peptide Total Protein 6.7 Albumin 3.8 Discharge Plan Discharge Patient Disposition: Home, Self-Care Discharge Diagnosis: Heart failure exacerbation Hypertensive urgency Referrals: Nuvia Crook NP [Primary Care Provider] - 1 Week Discharge Medications: New isosorbide mononitrate 60 mg Tablet Extended Release 24 Hr 120 mg PO DAILY 30 Days Qty: 60 RF: 0 calcium carbonate [Oyster Shell Calcium 500] 500 mg calcium (1,250 mg) Tablet 1,000 mg PO DAILY 14 Days Qty: 28 RF: 0 doxazosin 2 mg Tablet 8 mg PO BEDTIME 30 Days Qty: 120 RF: 0 Continued insulin aspart U-100 [Novolog Flexpen U-100 Insulin] 100 unit/mL (3 mL) insulin pen See Rx Instructions subcut TID 30 Days Qty: 30 RF: 4 hydralazine 100 mg tablet 100 mg PO TID 30 Days Qty: 30 RF: 0 atorvastatin 80 mg Tablet 80 mg PO BEDTIME RF: 0 sertraline 100 mg Tablet 200 mg PO DAILY RF: 0 gabapentin 600 mg Tablet 600 mg PO BEDTIME RF: 0 oxcarbazepine 300 mg Tablet 300 mg PO BID RF: 0 perphenazine 4 mg Tablet 4 mg PO BID RF: 0 carvedilol 25 mg Tablet 25 mg PO BID RF: 0 zolpidem 10 mg tablet 1 tab PO BEDTIME RF: 0 Flovent HFA 220 mcg/actuation HFA aerosol inhaler 2 puff PO BID RF: 0 Toujeo Max U-300 SoloStar 300 unit/mL (3 mL) insulin pen 60 unit subcut DAILY RF: 0 torsemide 20 mg Tablet 80 mg PO BID 30 Days Qty: 240 RF: 0 aspirin 81 mg Tablet,Delayed Release (Dr/Ec) 81 mg PO DAILY RF: 0 tramadol 50 mg Tablet 100 mg PO Q8H PRN (Reason: Pain (Scale Score 4-6)) RF: 0 tadalafil [Cialis] 10 mg Tablet 5 mg PO DAILY PRN (Reason: Sexual Activity) RF: 0 omeprazole 40 mg Capsule,Delayed Release(Dr/Ec) 40 mg PO DAILY@0630 RF: 0 albuterol sulfate [Ventolin HFA] 90 mcg/actuation HFA aerosol inhaler 2 puff PO Q4H PRN (Reason: Wheezing) RF: 0 cholecalciferol (vitamin D3) 25 mcg (1,000 unit) tablet 50 mcg PO DAILY RF: 0 nifedipine 30 mg tablet extended release 120 mg PO BEDTIME RF: 0 Discontinued doxazosin 2 mg tablet 2 mg PO BID 30 Days Qty: 60 RF: 2 isosorbide mononitrate 30 mg Tablet Extended Release 24 Hr 30 mg PO DAILY 30 Days Qty: 30 RF: 0 Discharge Orders: Discharge Order (Routine); Ordered 10/22/21 Ordered By: Gem Sandhu Diet: low salt diet Activity on Discharge: As tolerated Stand Alone Forms: Patient Portal Discharge page Care Plan Goals: Read below Health Concerns: Read below Plan of Treatment: Read below Assessment: You were admitted to the hospital for evaluation of difficulty breathing and weakness. Found to be in heart failure as a result of hypertension emergency. Treated with IV and oral medications with fair response. The evaluated by Cardiology and Nephrology team of followed you during the hospital stay. Increase as or by to 120 Increase Cardura to 8 mg at bedtime Continue to receive might as prescribed To follow-up as outpatient with Cardiology and Nephrology
[2021-10-22] MEDS: Potassium Chloride Packet 20 MEQ PACKET PO (10:28)
--- NOTE | 2021-10-22 10:29 | MHC.CM.PN ---
PT TO DC HOME TODAY WITH RESUMPTION OF HIS [employer] FAMILY TO TRANSPORT
--- NOTE | 2021-10-22 11:11 | P.PNCA_ITS ---
Subjective Subjective Date of Service: 10/22/21 Interval history: Feels OK. No new complaints. Review of Systems Review of Systems Yes all other systems are reviewed and are negative Cardiovascular: Reports as per HPI, Reports no additional cardiovascular complaints, Denies acrocyanosis, Denies cool extremities, Denies painful fingertips, Denies chest pain, Denies chest pain at rest, Denies diaphoresis, Denies syncope, Denies irregular heart rhythm, Denies claudication, Denies leg edema, Denies lightheadedness, Denies palpitations and Reports dyspnea Respiratory: Reports dyspnea Denies syncope Endocrine: Denies palpitations Physical Exam Vital Signs: Last Vital Signs Temp 98.3 F 10/22/21 07:32 Pulse 63 10/22/21 08:42 Resp 20 10/22/21 07:32 BP 165/70 H 10/22/21 08:42 Pulse Ox 100 10/22/21 07:32 BMI result Body Mass Index 34.8 Const General: no acute distress HENMT Other: Unremarkable Neck Neck: Yes normal visual inspection Chest Chest palpation & inspection: normal inspection of the chest Resp Auscultation: no crackles and no wheezes Cardio Palpation: normal PMI Heart sounds: S1 normal heart sound present, S2 normal heart sound present, no gallops, no murmurs and no rubs GI Palpation (GI): Soft to palpation Back/Spine/Pelvis Other: unremarkable Skin Lesions: other Neuro Cranial nerves: Yes Other cranial nerve findings present Extrem General: Yes other Psych Mental Status: other Objective Labs and Meds Result diagrams: 10/22/21 06:58 10/22/21 06:58 Lab results: Laboratory Results - last 24 hr 10/21/21 10/21/21 10/21/21 11:48 13:32 17:08 WBC RBC Hgb Hct MCV MCH MCHC RDW Plt Count MPV Immature Gran % (Auto) Neut % (Auto) Lymph % (Auto) [place] % (Auto) Eos % (Auto) Baso % (Auto) Lymph # (Auto) [place] # (Auto) Eos # (Auto) Baso # (Auto) Abs Immat Gran (auto) Absolute Neuts (auto) Absolute Nucleated RBC Nucleated RBC % (auto) Sodium Potassium Chloride Carbon Dioxide Anion Gap BUN Creatinine Estim Creat Clear Calc Estimated GFR POC Glucose 118 H 109 159 H Fasting Glucose Calcium Total Bilirubin AST ALT Alkaline Phosphatase B-Natriuretic Peptide Total Protein Albumin 10/21/21 10/22/21 10/22/21 20:48 06:58 06:58 WBC 5.9 RBC 3.16 L Hgb 9.6 L Hct 27.8 L MCV 88.0 MCH 30.4 MCHC 34.5 RDW 12.8 Plt Count 143 L MPV 11.8 Immature Gran % (Auto) 0.3 Neut % (Auto) 65.7 Lymph % (Auto) 21.0 [place] % (Auto) 7.7 Eos % (Auto) 5.0 H Baso % (Auto) 0.3 Lymph # (Auto) 1.2 [place] # (Auto) 0.5 Eos # (Auto) 0.3 Baso # (Auto) 0.0 Abs Immat Gran (auto) 0.02 Absolute Neuts (auto) 3.8 Absolute Nucleated RBC 0.000 Nucleated RBC % (auto) 0.0 Sodium Potassium Chloride Carbon Dioxide Anion Gap BUN Creatinine Estim Creat Clear Calc Estimated GFR POC Glucose 115 Fasting Glucose Calcium Total Bilirubin AST ALT Alkaline Phosphatase B-Natriuretic Peptide 242 H Total Protein Albumin 10/22/21 10/22/21 06:58 07:34 WBC RBC Hgb Hct MCV MCH MCHC RDW Plt Count MPV Immature Gran % (Auto) Neut % (Auto) Lymph % (Auto) [place] % (Auto) Eos % (Auto) Baso % (Auto) Lymph # (Auto) [place] # (Auto) Eos # (Auto) Baso # (Auto) Abs Immat Gran (auto) Absolute Neuts (auto) Absolute Nucleated RBC Nucleated RBC % (auto) Sodium 141 Potassium 3.2 L Chloride 101 Carbon Dioxide 29 Anion Gap 14 BUN 66 H Creatinine 4.46 H* Estim Creat Clear Calc 22.2 Estimated GFR 14 POC Glucose 99 Fasting Glucose 118 H Calcium 7.6 L Total Bilirubin 0.4 AST 14 ALT 26 Alkaline Phosphatase 85 B-Natriuretic Peptide Total Protein 6.7 Albumin 3.8 Progress Note: A&P Assessment and plan (1) Acute on chronic heart failure with preserved ejection fraction (HFpEF): Status: Acute (2) Hypertensive emergency: Status: Acute (3) Chronic kidney disease, stage 4 (severe): Status: Acute (4) Diabetes mellitus with hyperglycemia, with long-term current use of insulin: Status: Acute Assessment and Plan: Last echocardiogram from July shows LVEF 65-70% with severe left ventricular hypertrophy. Moderately dilated left atrium. Myocardial perfusion imaging study in the past at shown normal perfusion. Overall, primary issue is uncontrolled hypertension in the context of advanced renal disease. Troponins are slightly high at 40 and 39 but that is related to uncontrolled hypertension itself. Peak blood pressures almost 216/74 mm Hg but today's reading seems lower; still not in optimal range. Current regimen as listed includes carvedilol, hydralazine, Imdur, doxazosin, nifedipine. Meds are almost at maximum doses. Any further additions - Minoxidil vs Clonidine may be necessary. Diuretics guided by Nephrology due to advanced renal disease. Fall Risk Details Current Medications: Current Medications Acetaminophen (Acetaminophen 325 Mg Tablet) 650 mg PO Q6H PRN PRN Reason: Pain, Mild (Pain Scale 1-3) Albuterol/Ipratropium (Albuterol/Iprat 2.5/0.5mg 3 Ml Ampul.Neb) 3 ml INHALE RQ4H PRN PRN Reason: Shortness of Breath/Wheezing Aspirin (Aspirin Enteric Coated 81 Mg Tablet.) 81 mg PO DAILY [facility] Last Admin: 10/22/21 08:42 Dose: 81 mg Documented by: Atorvastatin Calcium (Atorvastatin Calcium 80 Mg Tablet) 80 mg PO BEDTIME [facility]AO Last Admin: 10/21/21 20:54 Dose: 80 mg Documented by: Calcium Carbonate (Calcium Carbonate 500 Mg Tablet) 1,000 mg PO DAILY [facility] Last Admin: 10/22/21 08:42 Dose: 1,000 mg Documented by: Carvedilol (Carvedilol 25 Mg Tablet) 25 mg PO BID [facility]; Protocol Last Admin: 10/22/21 08:42 Dose: 25 mg Documented by: Dextrose (Dextrose 50 % 25 Gm/50 Ml Vial) 25 gm IVPUSH Q15M PRN; Protocol PRN Reason: per Hypoglycemia Standing Ord. Doxazosin Mesylate (Doxazosin Mesylate 2 Mg Tablet) 8 mg PO BEDTIME [facility]; Protocol Last Admin: 10/21/21 20:55 Dose: 8 mg Documented by: Enoxaparin Sodium (Enoxaparin Sodium 30 Mg/0.3 Ml Syringe) 30 mg SUBCUT Q24H [facility] Last Admin: 10/21/21 21:05 Dose: 30 mg Documented by: Gabapentin (Gabapentin 600 Mg Tablet) 300 mg PO BEDTIME [facility] Last Admin: 10/21/21 20:53 Dose: 300 mg Documented by: Glucose (Glucose Gel 15 Gm Gel..Gram.) 15 gm PO Q15M PRN; Protocol PRN Reason: per Hypoglycemia Standing Ord. Hydralazine HCl (Hydralazine Hcl 50 Mg Tablet) 100 mg PO TID [facility]; Protocol Last Admin: 10/20/21 15:00 Dose: 100 mg Documented by: Insulin Glargine (Insulin Glargine,Hum.Rec.Anlog 100 Unit/Ml 10 Ml Vial) 20 unit SUBCUT BEDTIME [facility] Last Admin: 10/21/21 21:05 Dose: 20 unit Documented by: Insulin Human Lispro (Insulin Lispro 100 Unit/Ml 3 Ml Vial) 0 unit SUBCUT QIDACHS [facility]; Protocol Last Admin: 10/22/21 07:46 Dose: Not Given Documented by: Isosorbide Mononitrate (Isosorbide Mononitrate 60 Mg Tab.Er.24h) 120 mg PO DAILY [facility]; Protocol Last Admin: 10/22/21 08:42 Dose: 120 mg Documented by: Melatonin (Melatonin 3 Mg Tablet) 6 mg PO BEDTIME PRN PRN Reason: Insomnia Nifedipine (Nifedipine Er 60 Mg Tab.Er.24) 120 mg PO BEDTIME [facility] Last Admin: 10/19/21 21:43 Dose: 120 mg Documented by: Omeprazole (Omeprazole 40 Mg Capsule.Dr) 40 mg PO DAILY@0630 [facility] Last Admin: 10/22/21 05:17 Dose: 40 mg Documented by: Oxcarbazepine (Oxcarbazepine 300 Mg Tablet) 300 mg PO BID [facility] Last Admin: 10/22/21 08:42 Dose: 300 mg Documented by: Perphenazine (Perphenazine 4 Mg Tablet) 4 mg PO BID [facility] Last Admin: 10/22/21 08:42 Dose: 4 mg Documented by: Pharmacy Consult (Consult Rx Perform Med Rec) 1 each MISCELLANE ONCE PRN PRN Reason: Consult order Senna (Sennosides 8.6 Mg Tablet) 17.2 mg PO BEDTIME PRN PRN Reason: Constipation Sertraline HCl (Sertraline Hcl 100 Mg Tablet) 200 mg PO DAILY [facility] Last Admin: 10/22/21 08:41 Dose: 200 mg Documented by: Sodium Chloride (0.9 % Sodium Chloride Flush 3 Ml Syringe) 3 ml IVFLUSH QSHIFT [facility] Last Admin: 10/22/21 08:41 Dose: 3 ml Documented by: Torsemide (Torsemide 20 Mg Tablet) 80 mg PO BID [facility]; Protocol Last Admin: 10/22/21 08:41 Dose: 80 mg Documented by: Tramadol HCl (Tramadol Hcl 50 Mg Tablet) 100 mg PO Q8H PRN PRN Reason: Pain (Scale Score 4-6) Vitamin D (Cholecalciferol (Vitamin D3) 25 Mcg Tablet) 50 mcg PO DAILY [facility] Last Admin: 10/22/21 08:41 Dose: 50 mcg Documented by: Zolpidem Tartrate (Zolpidem Tartrate 5 Mg Tablet) 10 mg PO BEDTIME [facility] Last Admin: 10/21/21 20:54 Dose: 10 mg Documented by: Time Spent With Patient Time: Total time spent is greater than 50% in coordination of care (as documented) at patient's floor/unit and/or counseling patient: Time with patient: less than 15 minutes Progress Note: Quality Stroke Does the patient have a stroke diagnosis?: No Procedures Date of Service Date of Service: 10/22/21
[2021-10-22 11:14] LABS: Glucose, Whole Blood 155 mg/dL (60-115)
--- NOTE | 2021-10-23 12:32 | CONS_ITS ---
DATE OF SERVICE: 10/20/2021 HISTORY OF PRESENT ILLNESS: I was asked to assist in management of this 61-year-old patient with a known history of severe chronic kidney disease, who presented to the hospital with shortness of breath and generalized weakness. The patient has recently had recurrent admission to the hospital with shortness of breath in the setting of heart failure with preserved ejection fraction. He complains of shortness of breath and weakness for about a week. He described shortness of breath mostly on exertion. He denies any fever, chills, cough. There is no report of nausea, vomiting, or diarrhea. The patient was also noted to have elevated blood pressure and was started on intravenous diuretics. PAST MEDICAL HISTORY: Remarkable for chronic kidney disease stage 4, hypertension, diabetes mellitus, sleep apnea, dyslipidemia, diabetic neuropathy, peptic ulcer disease, history of pancreatitis, erectile dysfunction, depression, anxiety, asthma. PAST SURGICAL HISTORY: Notable for right inguinal hernia repair. MEDICATIONS: As inpatient and outpatient, were reviewed. ALLERGIES: HE IS NOT ALLERGIC TO MEDICATIONS. SOCIAL HISTORY: He is an ex-smoker. FAMILY HISTORY: Negative for kidney disease. REVIEW OF SYSTEMS: 10-point review of system negative except for pertaining History of Present Illness. PHYSICAL EXAMINATION: VITAL SIGNS: Blood pressure is 175/51, heart rate 56, respiratory rate 15, temperature afebrile. CONSTITUTIONAL: Looks his age. No acute distress. NEUROLOGIC: Alert, awake. HEAD: Atraumatic, normocephalic. NECK: Supple. Decreased breath sounds. CARDIOVASCULAR: S1, S2. No rub. ABDOMEN: Soft, obese, nontender. EXTREMITIES: No peripheral edema. LABORATORY DATA: White count 7.3, hemoglobin 9.6, platelet count is 159. Sodium 141, potassium 3.4, chloride 102, CO2 of 28, BUN 63, creatinine 4.79, calcium 7.5. BNP 287. Chest x-ray showed resolving infiltrates. IMPRESSION: 1. Chronic kidney disease stage 4. 2. Heart failure with preserved ejection fraction. 3. Anemia. This is a patient with known severe chronic kidney disease, probably due to diabetic kidney disease, hypertensive nephrosclerosis, and residual kidney function loss from prior recurrent acute kidney injury whose kidney function is currently at baseline. His volume status is above dry weight and he has underlying heart failure with a preserved ejection fraction. Excess volume is poor, probably also contributing to hypertension. PLAN: My recommendation would be to continue with IV diuresis given his significant reduction of free water excretion. I would reduce gabapentin to 300 mg renally dosed. We will protect his nondominant arm as he is at risk for renal placement therapy in the next 6 months and we will continue to follow closely his kidney function and electrolytes. Thank you for allowing me to participate in the care of this patient. Nadine Perez MD GF/MODL / [id number]
== END 2021-10-22 12:50 | disposition home or self-care (01) | DRG 291 ==
LOC: HO.ED 21:08 → HO.EDOVER 22:04 → HO.IMC 10-22 00:56
PROVIDERS: Hospitalist; Admitting Provider Hospitalist; Emergency Provider Emergency Medicine; PCP Nurse Practitioner Primary Care; Visit Provider Student in an Organized Health Care Education/Training Program
DX: I13.0 Hypertensive heart and chronic kidney disease with heart failure and stage 1 through stage 4 chronic kidney disease, or unspecified chronic kidney disease (principal); I50.33 Acute on chronic diastolic (congestive) heart failure; I16.1 Hypertensive emergency; N18.4 Chronic kidney disease, stage 4 (severe); E11.22 Type 2 diabetes mellitus with diabetic chronic kidney disease; F41.9 Anxiety disorder, unspecified; G47.33 Obstructive sleep apnea (adult) (pediatric); F32.A Depression, unspecified; E11.65 Type 2 diabetes mellitus with hyperglycemia; D63.1 Anemia in chronic kidney disease; J45.909 Unspecified asthma, uncomplicated; Z20.822 Contact with and (suspected) exposure to COVID-19; Z87.891 Personal history of nicotine dependence; Z79.4 Long term (current) use of insulin; Z79.82 Long term (current) use of aspirin; Z79.891 Long term (current) use of opiate analgesic; Z79.899 Other long term (current) drug therapy
CPT/HCPCS: 0241U; 36415; 71045; 80048; 80053; 82947; 83880; 84484; 85025; 93005; 94640; 99285; J1650; J1940

== ENCOUNTER → 2021-11-09 13:19 | Outpatient (BNVA) | payer OTHER, SELFPAY | PROVIDERS: PCP Nurse Practitioner Primary Care; Visit Provider Nurse Practitioner Gerontology | DX: Z13.89 Encounter for screening for other disorder (principal) | CPT/HCPCS: Q3014 ==

== ENCOUNTER 2021-11-26 10:47 | Emergency (ER) | payer OTHER, SELFPAY ==
--- NOTE | 2021-11-26 | ECG_ITS ---
Test Reason : sob Blood Pressure : / mmHG Vent. Rate : 067 BPM Atrial Rate : 067 BPM P-R Int : 180 ms QRS Dur : 156 ms QT Int : 486 ms P-R-T Axes : 041 -70 035 degrees QTc Int : 513 ms Normal sinus rhythm Right bundle branch block Left anterior fascicular block Bifascicular block Minimal voltage criteria for LVH, may be normal variant ( R in aVL ) Abnormal ECG When compared with ECG of 18-OCT-2021 13:42, No significant changes seen Referred By: Meera Mcfadden Electronically Signed By:GUS GOOD
--- NOTE | ~2021-11-26 | XR_ITS ---
EXAMINATION: XR CHEST CLINICAL INFORMATION: Shortness of breath. COMPARISON: None TECHNIQUE: 2 views of the chest were obtained. FINDINGS: The lungs are well-expanded and clear of acute pneumonic process. Heart size and pulmonary vascularity is normal. There is mild spondylosis of dorsal spine. No lytic process. XR/XR chest 2V IMPRESSION: Unremarkable chest exam.
--- NOTE | ~2021-11-26 | US_ITS ---
EXAMINATION: BILATERAL LOWER EXTREMITY DEEP VENOUS ULTRASOUND CLINICAL INFORMATION: Bilateral lower extremity pain and edema. COMPARISON: Bilateral lower extremity reflux venous ultrasound 09/13/2021 TECHNIQUE: Duplex Doppler imaging with compression maneuvers were performed of the bilateral lower extremity deep venous systems. FINDINGS: The bilateral visualized common femoral, femoral and popliteal veins demonstrate normal compressibility and color flow without evidence of venous thrombosis. Visualized portions of the bilateral calf veins demonstrate normal color fill-in suggesting patency. There is no evidence of a Michelle's cyst. US/US venous duplex LE BI IMPRESSION: No evidence of deep venous thrombosis involving the bilateral lower extremities.
[2021-11-26 11:09] VITALS: BP 167/55; PULSE 71; RESP 22; O2SAT 97; BMI 35.5
[2021-11-26 11:22] VITALS: BP 161/68; PULSE 67; RESP 16; TEMP 36.9; O2SAT 98
--- NOTE | 2021-11-26 11:56 | ED_ITS ---
HPI - SOB/Dyspnea General Chief Complaint: Upper Respiratory Symptoms <Meera McfaddenWARREN - Last Filed: 11/26/21 17:48> Stated Complaint: shortness of breath,swelling <Meera Jason WARREN Mcfadden - Last Filed: 11/26/21 17:48> Time Seen by Provider: 11/26/21 11:33 <Meera McfaddenWARREN - Last Filed: 11/26/21 17:48> Source: patient <Meera McfaddenWARREN - Last Filed: 11/26/21 17:48> Mode of arrival: ambulatory <Meera McfaddenWARREN - Last Filed: 11/26/21 17:48> Limitations: language barrier (Ukrainian-speaking, rn medical surgical utilized) <Meera BarakatWARREN arriaga - Last Filed: 11/26/21 17:48> History of Present Illness HPI Narrative: Patient is a 61-year-old male with a history of anemia, anxiety, asthma, CHF, CKD stage 4, COPD, depression, diabetes, hypercholesterolemia, hypertension, and sleep apnea. He presents emergency department for increasing shortness of breath and increasing bilateral lower extremity edema. Reports that over the past 3 days he has become more short of breath and dyspnea with exertion and has noticed an increase in pain and swelling to the bilateral lower extremities. He denies persistent headache, dizziness lightheadedness, vision changes, neck pain, chest pain, palpitations, nausea, vomiting, abdominal pain. Denies any recent injuries, extended travel, personal history of DVT or PE. Denies fevers or chills, cough, sick contacts or COVID-19 exposure, he has been vaccinated and received a booster for COVID-19. <Meera Casiegray Mcfadden CNP - Last Filed: 11/26/21 17:48> MD elicited complaint: shortness of breath <Meera Casiegray Mcfadden CNP - Last Filed: 11/26/21 17:48> Pertinent past history: COPD, asthma, congestive heart failure and diabetes <Meera Casiegray Mcfadden CNP - Last Filed: 11/26/21 17:48> Onset (ago): day(s) <Meera Casiegray Mcfadden CNP - Last Filed: 11/26/21 17:48> Context: occurred during exertion <Meera Mcfadden CNP - Last Filed: 11/26/21 17:48> Timing: progressively worsening <Meera Mcfadden CNP - Last Filed: 11/26/21 17:48> Severity: moderate <Meera Mcfadden CNP - Last Filed: 11/26/21 17:48> Exacerbating factors: lying flat and exertion <Meera Mcfadden CNP - Last Filed: 11/26/21 17:48> Relieving factors: nothing <Meera Mcfadden CNP - Last Filed: 11/26/21 17:48> Treatment prior to arrival: none <Meera Mcfadden CNP - Last Filed: 11/26/21 17:48> Related Data Home Medications: Home Medications Medication Instructions Recorded Confirmed atorvastatin 80 mg tablet 80 mg PO BEDTIME 07/25/20 11/09/21 carvedilol 25 mg tablet 25 mg PO BID 07/25/20 11/09/21 oxcarbazepine 300 mg tablet 300 mg PO BID 07/25/20 10/18/21 perphenazine 4 mg tablet 4 mg PO BID 07/25/20 10/18/21 sertraline 100 mg tablet 200 mg PO DAILY 07/25/20 10/18/21 zolpidem 10 mg tablet 1 tab PO BEDTIME 01/23/21 10/18/21 fluticasone propionate 220 2 puff PO BID 08/18/21 10/18/21 mcg/actuation HFA aerosol inhaler (Flovent HFA) albuterol sulfate 90 2 puff PO Q4H PRN 10/09/21 10/18/21 mcg/actuation aerosol inhaler (Ventolin HFA) cholecalciferol (vitamin D3) 25 50 mcg PO DAILY 10/09/21 11/09/21 mcg (1,000 unit) tablet nifedipine 30 mg tablet,extended 120 mg PO BEDTIME tab 10/09/21 10/18/21 release aspirin 81 mg tablet,delayed 81 mg PO DAILY 10/18/21 11/09/21 release omeprazole 40 mg capsule,delayed 40 mg PO DAILY@0630 10/18/21 11/09/21 release tadalafil 10 mg tablet (Cialis) 5 mg PO DAILY PRN 10/18/21 10/19/21 tramadol 50 mg tablet 100 mg PO Q8H PRN 10/18/21 10/18/21 Previous Rx's Medication Instructions Recorded hydralazine 100 mg tablet 100 mg PO TID 30 Days #30 tab 08/30/21 torsemide 20 mg tablet 80 mg PO BID 30 Days #240 tab 10/14/21 calcium carbonate 500 mg calcium 1,000 mg PO DAILY 14 Days #28 tab 10/22/21 (1,250 mg) tablet (Oyster Shell Calcium 500) doxazosin 2 mg tablet 8 mg PO BEDTIME 30 Days #120 tab 10/22/21 gabapentin 600 mg tablet 300 mg PO BEDTIME #0 tab 10/22/21 isosorbide mononitrate 60 mg 120 mg PO DAILY 30 Days #60 tab 10/22/21 tablet,extended release 24 hr lancets 33 gauge (TRUEplus 1 gauge MISCELLANEOUS QID #100 ea 11/02/21 Lancets) insulin aspart U-100 100 unit/mL See Rx Instructions SUBCUT TID 30 11/09/21 (3 mL) subcutaneous pen (Novolog Days #30 ml Flexpen U-100 Insulin aspart) insulin glargine U-300 conc 300 50 unit (0.1667 mL) SUBCUT DAILY 11/09/21 unit/mL (3 mL) subcutaneous pen #6 ml (Toujeo Max U-300 SoloStar) <Meera Mcfadden CNP - Last Filed: 11/26/21 17:48> Allergies/Adverse Reactions: Allergies Allergy/AdvReac Type Severity Reaction Status Date / Time No Known Allergies Allergy Verified 11/09/21 14:56 <Meera Mcfadden CNP - Last Filed: 11/26/21 17:48> Review of Systems Verdana 4l Review of Systems: Verdana 4d [place] 4Bd Constitutional: [place] 4d No weight loss, fever, chills, weakness or fatigue. [place] 4Bd HEENT: [place] 4d No visual loss, blurred vision, double vision or yellow sclera. No hearing loss, sneezing, congestion, runny nose or sore throat. [place]rial[place] 4Bd Skin: No rash or itching. Cardiovascular: + pedal edema. No chest pain, chest pressure or chest discomfort. No palpitations. Respiratory: + shortness of breath, dyspnea on exertion. No cough or sputum production. Gastrointestinal: No anorexia, nausea, vomiting or diarrhea. No abdominal pain or blood in stool. Genitourinary: No burning micturition. No urinary frequency or incontinence. Neurologic: No headache, dizziness, syncope, unilateral weakness, ataxia, numbness or tingling in the extremities. No change in bowel or bladder control. Musculoskeletal: No muscle pain, back pain, joint pain or stiffness. Hematologic: No bleeding or bruising. Lymphatics: No enlarged lymph nodes. Psychiatric:No depression or anxiety. Endocrine: No polyuria or polydipsia. <Meera Mcfadden CNP - Last Filed: 11/26/21 17:48> FOR[facility]LY [facility], [facility] Past Medical History Attestation statement: The following information was validated with the patient. <Meera Mcfadden CNP - Last Filed: 11/26/21 17:48> Source: old records reviewed <Meera Mcfadden CNP - Last Filed: 11/26/21 17:48> Medical History: Medical History Abnormal biopsy of kidney Anemia Anxiety Asthma CHF (congestive heart failure) Chronic kidney disease, stage 4 (severe) CKD (chronic kidney disease) stage 4, GFR 15-29 ml/min Congestive heart failure COPD (chronic obstructive pulmonary disease) Depression Depression with anxiety Diabetes mellitus with hyperglycemia, with long-term current use of insulin Diabetes type 2, uncontrolled Diastolic dysfunction Diverticulitis Elevated cholesterol Erectile dysfunction Essential hypertension Heart failure with preserved ejection fraction History of alcohol abuse History of headache HTN (hypertension) HTN (hypertension) Hx of pancreatitis Hyperglycemia Hypertension Hypertensive crisis Hypertriglyceridemia On beta doron at home Pancreatitis Peptic ulcer Proteinuria Sleep apnea Type 2 diabetes mellitus with chronic kidney disease Type 2 diabetes mellitus with hyperglycemia, with long-term current use of insulin Type 2 diabetes mellitus with polyneuropathy Type 2 diabetes mellitus with unspecified complications <Meera Mcfadden CNP - Last Filed: 11/26/21 17:48> Surgical History: Surgical History History of surgery Hx of colonoscopy Hx of right inguinal hernia repair <Meera Mcfadden CNP - Last Filed: 11/26/21 17:48> Family History Family History: Family History Mother Diabetes <Meera Mcfadden CNP - Last Filed: 11/26/21 17:48> Social History Social History: Social History Household Members: None Housing: House Are you a primary nurse care manager to a significant other at home: No Do you presently have visiting nurse or other home services: Yes ([employer]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) Alcohol intake: never Patient Tobacco Use Status: Former Tobacco user Quit Date: 2017 Tobacco use type: Cigarette Years Smoked: 30 Smoked in Last 30 Days: No Second Hand Smoke Exposure: Yes Use of substances other than those prescribed or required for medical reasons: No Advance Directives: No Advance Directives Information Provided: No service: No Current occupational status: retired <Meera Mcfadden CNP - Last Filed: 11/26/21 17:48> Physical Exam Verdana 4l Vital Signs: Verdana 4d Verdana 4d Vital Signs: Verd[place] 4d [place] 4Bd Last Vital Signs Verdana 4d Teacher Private New 4d Teacher Private New 4d Temp 98.1 F 11/26/21 19:38 Teacher Private New 4d Pulse 62 11/26/21 19:38 Teacher Private New 4d Resp 16 11/26/21 19:38 BP 189/62 H 11/26/21 19:38 Pulse Ox 94 11/26/21 19:38 BMI result Body Mass Index 35.5 Vital signs have been reviewed and appeared to be correct. Blood pressure elevated 161-68 Heart rate normal.? Respiration rate normal. Temperature normal.? Oxygen saturation normal. <Meera Mcfadden CNP - Last Filed: 11/26/21 17:48> Vital Signs: Last Vital Signs Temp 98.1 F 11/26/21 19:38 Pulse 62 11/26/21 19:38 Resp 16 11/26/21 19:38 BP 189/62 H 11/26/21 19:38 Pulse Ox 94 11/26/21 19:38 BMI result Body Mass Index 35.5 <CORNELIO Phelps - Last Filed: 11/26/21 20:21> Appearance: Alert.?Oriented to person, place and time. No acute distress.?Normal affect. Eyes: Pupils equal, round and reactive to light.? ENT: Pharynx normal.?? Neck: Normal inspection.? Neck supple.?? CVS: Heart sounds normal. Normal heart rate and rhythm.? Pulses normal.?? Respiratory: No respiratory distress.? Lung sounds clear to auscultation bilaterally?? Abdomen: Soft and non-tender. Normoactive bowel sounds. No pulsatile mass.?? Skin: Skin warm and dry.? Normal skin color.? Normal skin turgor.?? Extremities: Bilateral 2+ lower extremity edema, and bilateral calf tenderness Neuro: Moves all extremities spontaneously. Sensation intact bilaterally. No focal neuro deficits. Ambulates with normal steady gait. <Meera Mcfadden CNP - Last Filed: 11/26/21 17:48> Course Course Course Narrative: Patient is a 61-year-old male being evaluated for increasing shortness of breath and lower extremity edema. Serum labs to be obtained to exclude leukocytosis, anemia, electrolyte abnormality, worsening renal function, abnormal hepatic/ biliary function, EKG and troponin to evaluate for ischemia/infarct, D-dimer to exclude pulmonary embolism, BNP to assess fluid overload status, chest x-ray to evaluate for mass, infiltrate/consolidation or pulmonary edema, and bilateral lower extremity ultrasound to exclude DVT. Disposition pending results. <Meera Mcfadden CNP - Last Filed: 11/26/21 17:48> Reevaluation(s) Reevaluation #1: COVID-19 is negtive. D-dimer 174, not elevated, therefore do not suspect pulmonary embolism, will defer CT angio at this time. Chest x-ray without any acute findings. Patient is anemic hemoglobin 9.2 and hematocrit 27.1, RBC 3.12 and platelets 1.37 all consistent with baseline. Electrolytes are normal. BNP 274. Renal function worse in comparison to baseline, current BUN/ creatinine 66 and 5.28 with eGFR 11 in comparison to BUN/ creatinine 66 and 4.46 October 22, 2021. Will gently hydrate with IV fluids, and give a dose of IV Lasix, will plan to repeat BMP after. If renal function is back to baseline plan for discharge home with outpatient follow-up with PCP and Nephrology in 1-2 days. Patient signed out to [address] [facility] pending repeat BMP. <Meera Jason WARREN Mcfadden - Last Filed: 11/26/21 17:48> Time: 15:00 <Meera BarakatWARREN arriaga - Last Filed: 11/26/21 17:48> Reevaluation #2: Patient's repeat creatinine, is improved. 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 <CORNELIO Phelps - Last Filed: 11/26/21 20:21> MDM - SOB/Dyspnea Medical Records Attestation: I reviewed the patient's medical records. <Meera Jason WARREN Mcfadden - Last Filed: 11/26/21 17:48> Lab Data Attestation: I reviewed the patient's lab results. <Meera Jason WARREN Mcfadden - Last Filed: 11/26/21 17:48> Result diagrams: : 11/26/21 12:00 11/26/21 19:15 <Meera Jason WARREN Mcfadden - Last Filed: 11/26/21 17:48> Labs: Lab Results 11/26/21 11/26/21 11/26/21 Range/Units 11:58 12:00 12:00 WBC 6.3 (4.8-10.8) X10*3/uL RBC 3.12 L (4.60-5.80) X10*6/uL Hgb 9.2 L (14.0-18.0) g/dl Hct 27.1 L (42.0-52.0) % MCV 86.9 (80.0-98.0) fL MCH 29.5 (27.0-33.0) pg MCHC 33.9 (31.0-36.0) g/dl RDW 13.8 (11.0-16.0) % Plt Count 137 L (160-400) X10*3/uL MPV 11.9 (9.4-12.4) fL Immature Gran % (Auto) 0.2 (0.0-0.4) % Neut % (Auto) 74.6 H (45-73) % Lymph % (Auto) 13.6 L (20-40) % Leslie % (Auto) 5.9 (2-11) % Eos % (Auto) 5.4 H (0-4) % Baso % (Auto) 0.3 (0-2) % Lymph # (Auto) 0.9 L (1.2-4.9) X10*3/uL Leslie # (Auto) 0.4 (0.1-1.2) X10*3/uL Eos # (Auto) 0.3 (0.0-0.4) X10*3/uL Baso # (Auto) 0.0 (0.0-0.2) X10*3/uL Abs Immat Gran (auto) 0.01 (0.00-0.03) X10*3/uL Absolute Neuts (auto) 4.7 (2.0-8.3) x10*3/uL Absolute Nucleated RBC 0.000 (0.0-0.012) X10*3/uL Nucleated RBC % (auto) 0.0 (0.0-0.2) /100WBC D-Dimer High Sensitivty NG/ML Sodium 144 (135-145) mmol/L Potassium 3.7 (3.3-5.1) mmol/L Chloride 107 (96-108) mmol/L Carbon Dioxide 23 (22-29) mmol/L Anion Gap 18 (12-20) BUN 66 H (9-16) mg/dL Creatinine 5.28 H* (0.5-1.4) mg/dL Estim Creat Clear Calc 19.0 Estimated GFR 11 Random Glucose 170 H (60-115) mg/dL Calcium 7.3 L (8.4-10.2) mg/dL Magnesium 2.0 (1.6-2.6) mg/dL Total Bilirubin 0.2 (0.0-1.0) mg/dL AST 33 D (5-37) U/L ALT 27 (0-40) U/L Alkaline Phosphatase 82 (39-117) U/L Troponin I High Sens (<3.5-35.0) ng/L B-Natriuretic Peptide (<100) pg/mL Total Protein 7.0 (6.5-8.0) g/dL Albumin 3.8 (3.5-5.0) g/dL COVID-19 (RIGOBERTO) Negative (Negative) COVID-19 Clin Com See Note 11/26/21 11/26/21 11/26/21 Range/Units 12:00 12:00 19:15 WBC (4.8-10.8) X10*3/uL RBC (4.60-5.80) X10*6/uL Hgb (14.0-18.0) g/dl Hct (42.0-52.0) % MCV (80.0-98.0) fL MCH (27.0-33.0) pg MCHC (31.0-36.0) g/dl RDW (11.0-16.0) % Plt Count (160-400) X10*3/uL MPV (9.4-12.4) fL Immature Gran % (Auto) (0.0-0.4) % Neut % (Auto) (45-73) % Lymph % (Auto) (20-40) % Leslie % (Auto) (2-11) % Eos % (Auto) (0-4) % Baso % (Auto) (0-2) % Lymph # (Auto) (1.2-4.9) X10*3/uL Leslie # (Auto) (0.1-1.2) X10*3/uL Eos # (Auto) (0.0-0.4) X10*3/uL Baso # (Auto) (0.0-0.2) X10*3/uL Abs Immat Gran (auto) (0.00-0.03) X10*3/uL Absolute Neuts (auto) (2.0-8.3) x10*3/uL Absolute Nucleated RBC (0.0-0.012) X10*3/uL Nucleated RBC % (auto) (0.0-0.2) /100WBC D-Dimer High Sensitivty 174 NG/ML Sodium 145 (135-145) mmol/L Potassium 3.4 (3.3-5.1) mmol/L Chloride 106 (96-108) mmol/L Carbon Dioxide 26 (22-29) mmol/L Anion Gap 16 (12-20) BUN 63 H (9-16) mg/dL Creatinine 4.92 H* (0.5-1.4) mg/dL Estim Creat Clear Calc 20.3 Estimated GFR 12 Random Glucose 85 D (60-115) mg/dL Calcium 7.4 L (8.4-10.2) mg/dL Magnesium (1.6-2.6) mg/dL Total Bilirubin (0.0-1.0) mg/dL AST (5-37) U/L ALT (0-40) U/L Alkaline Phosphatase (39-117) U/L Troponin I High Sens 28.7 (<3.5-35.0) ng/L B-Natriuretic Peptide 274 H (<100) pg/mL Total Protein (6.5-8.0) g/dL Albumin (3.5-5.0) g/dL COVID-19 (RIGOBERTO) (Negative) COVID-19 Clin Com <Meera Mcfadden, INDIVIDUALIZED EDUCATION PLAN AIDE - Last Filed: 11/26/21 17:48> Lab Results 11/26/21 11/26/21 11/26/21 Range/Units 11:58 12:00 12:00 WBC 6.3 (4.8-10.8) X10*3/uL RBC 3.12 L (4.60-5.80) X10*6/uL Hgb 9.2 L (14.0-18.0) g/dl Hct 27.1 L (42.0-52.0) % MCV 86.9 (80.0-98.0) fL MCH 29.5 (27.0-33.0) pg MCHC 33.9 (31.0-36.0) g/dl RDW 13.8 (11.0-16.0) % Plt Count 137 L (160-400) X10*3/uL MPV 11.9 (9.4-12.4) fL Immature Gran % (Auto) 0.2 (0.0-0.4) % Neut % (Auto) 74.6 H (45-73) % Lymph % (Auto) 13.6 L (20-40) % Leslie % (Auto) 5.9 (2-11) % Eos % (Auto) 5.4 H (0-4) % Baso % (Auto) 0.3 (0-2) % Lymph # (Auto) 0.9 L (1.2-4.9) X10*3/uL Leslie # (Auto) 0.4 (0.1-1.2) X10*3/uL Eos # (Auto) 0.3 (0.0-0.4) X10*3/uL Baso # (Auto) 0.0 (0.0-0.2) X10*3/uL Abs Immat Gran (auto) 0.01 (0.00-0.03) X10*3/uL Absolute Neuts (auto) 4.7 (2.0-8.3) x10*3/uL Absolute Nucleated RBC 0.000 (0.0-0.012) X10*3/uL Nucleated RBC % (auto) 0.0 (0.0-0.2) /100WBC D-Dimer High Sensitivty NG/ML Sodium 144 (135-145) mmol/L Potassium 3.7 (3.3-5.1) mmol/L Chloride 107 (96-108) mmol/L Carbon Dioxide 23 (22-29) mmol/L Anion Gap 18 (12-20) BUN 66 H (9-16) mg/dL Creatinine 5.28 H* (0.5-1.4) mg/dL Estim Creat Clear Calc 19.0 Estimated GFR 11 Random Glucose 170 H (60-115) mg/dL Calcium 7.3 L (8.4-10.2) mg/dL Magnesium 2.0 (1.6-2.6) mg/dL Total Bilirubin 0.2 (0.0-1.0) mg/dL AST 33 D (5-37) U/L ALT 27 (0-40) U/L Alkaline Phosphatase 82 (39-117) U/L Troponin I High Sens (<3.5-35.0) ng/L B-Natriuretic Peptide (<100) pg/mL Total Protein 7.0 (6.5-8.0) g/dL Albumin 3.8 (3.5-5.0) g/dL COVID-19 (RIGOBERTO) Negative (Negative) COVID-19 Clin Com See Note 11/26/21 11/26/21 11/26/21 Range/Units 12:00 12:00 19:15 WBC (4.8-10.8) X10*3/uL RBC (4.60-5.80) X10*6/uL Hgb (14.0-18.0) g/dl Hct (42.0-52.0) % MCV (80.0-98.0) fL MCH (27.0-33.0) pg MCHC (31.0-36.0) g/dl RDW (11.0-16.0) % Plt Count (160-400) X10*3/uL MPV (9.4-12.4) fL Immature Gran % (Auto) (0.0-0.4) % Neut % (Auto) (45-73) % Lymph % (Auto) (20-40) % Leslie % (Auto) (2-11) % Eos % (Auto) (0-4) % Baso % (Auto) (0-2) % Lymph # (Auto) (1.2-4.9) X10*3/uL Leslie # (Auto) (0.1-1.2) X10*3/uL Eos # (Auto) (0.0-0.4) X10*3/uL Baso # (Auto) (0.0-0.2) X10*3/uL Abs Immat Gran (auto) (0.00-0.03) X10*3/uL Absolute Neuts (auto) (2.0-8.3) x10*3/uL Absolute Nucleated RBC (0.0-0.012) X10*3/uL Nucleated RBC % (auto) (0.0-0.2) /100WBC D-Dimer High Sensitivty 174 NG/ML Sodium 145 (135-145) mmol/L Potassium 3.4 (3.3-5.1) mmol/L Chloride 106 (96-108) mmol/L Carbon Dioxide 26 (22-29) mmol/L Anion Gap 16 (12-20) BUN 63 H (9-16) mg/dL Creatinine 4.92 H* (0.5-1.4) mg/dL Estim Creat Clear Calc 20.3 Estimated GFR 12 Random Glucose 85 D (60-115) mg/dL Calcium 7.4 L (8.4-10.2) mg/dL Magnesium (1.6-2.6) mg/dL Total Bilirubin (0.0-1.0) mg/dL AST (5-37) U/L ALT (0-40) U/L Alkaline Phosphatase (39-117) U/L Troponin I High Sens 28.7 (<3.5-35.0) ng/L B-Natriuretic Peptide 274 H (<100) pg/mL Total Protein (6.5-8.0) g/dL Albumin (3.5-5.0) g/dL COVID-19 (RIGOBERTO) (Negative) COVID-19 Clin Com <CORNELIO Phelps - Last Filed: 11/26/21 20:21> Imaging Data Chest x-ray: Radiologist's impression: FINDINGS: The lungs are well-expanded and clear of acute pneumonic process. Heart size and pulmonary vascularity is normal. There is mild spondylosis of dorsal spine. No lytic process. XR/XR chest 2V IMPRESSION: Unremarkable chest exam. <Meera Mcfadden CNP - Last Filed: 11/26/21 17:48> US bilateral LE: Radiologist's impression: IMPRESSION: No evidence of deep venous thrombosis involving the bilateral lower extremities. <Meera Mcfadden CNP - Last Filed: 11/26/21 17:48> ECG Data Attestation: I personally reviewed and interpreted this ECG as follows: <Meera Mcfadden CNP - Last Filed: 11/26/21 17:48> ECG interpretation date: 11/26/21 <Meera Mcfadden CNP - Last Filed: 11/26/21 17:48> ECG interpretation time: 12:05 <Meera Mcfadden CNP - Last Filed: 11/26/21 17:48> Prior ECG tracings: available for review <Meera Mcfadden CNP - Last Filed: 11/26/21 17:48> Interpretation: Rate: 67 Rhythm:? Normal sinus rhythm with right bundle branch block [place]:? Normal Normal P waves.? Normal SELVIN.?? Wide QRS complex.?? qTC: 513 prior studies:? 10/18/2021 The study has been interpreted contemporaneously by me. <Meera Mcfadden CNP - Last Filed: 11/26/21 17:48> Discharge Plan Discharge Clinical Impression: Kidney disease <Meera Mcfadden CNP - Last Filed: 11/26/21 17:48> Patient Disposition: Home, Self-Care <Meera Mcfadden CNP - Last Filed: 11/26/21 17:48> Instructions: Impaired Kidney Function (ED) <Meera Mcfadden CNP - Last Filed: 11/26/21 17:48> Additional Instructions: You were evaluated in the emergency department for shortness of breath and worsening bilateral lower extremity edema. You were found to have worsening of your kidney function from your baseline. You received IV fluids and a dose of diuretic in your kidney function improved back to baseline. 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 You may return to the emergency department with any new or worsening symptoms or concerns. <Meera Mcfadden CNP - Last Filed: 11/26/21 17:48> Prescriptions: No Action hydralazine 100 mg tablet 100 mg PO TID 30 Days Qty: 30 0RF lancets [TRUEplus Lancets] 33 gauge misc 1 gauge miscellaneous QID Qty: 100 11RF atorvastatin 80 mg Tablet 80 mg PO BEDTIME 0RF sertraline 100 mg Tablet 200 mg PO DAILY 0RF oxcarbazepine 300 mg Tablet 300 mg PO BID 0RF perphenazine 4 mg Tablet 4 mg PO BID 0RF carvedilol 25 mg Tablet 25 mg PO BID 0RF zolpidem 10 mg tablet 1 tab PO BEDTIME 0RF Flovent HFA 220 mcg/actuation HFA aerosol inhaler 2 puff PO BID 0RF torsemide 20 mg Tablet 80 mg PO BID 30 Days Qty: 240 0RF Protocol: Hold for SBP< HOLD for SBP < : 90 aspirin 81 mg Tablet,Delayed Release (Dr/Ec) 81 mg PO DAILY 0RF tramadol 50 mg Tablet 100 mg PO Q8H PRN (Reason: Pain (Scale Score 4-6)) 0RF tadalafil [Cialis] 10 mg Tablet 5 mg PO DAILY PRN (Reason: Sexual Activity) 0RF omeprazole 40 mg Capsule,Delayed Release(Dr/Ec) 40 mg PO DAILY@0630 0RF isosorbide mononitrate 60 mg Tablet Extended Release 24 Hr 120 mg PO DAILY 30 Days Qty: 60 0RF Protocol: Hold for SBP< HOLD for SBP < : 90 calcium carbonate [Oyster Shell Calcium 500] 500 mg calcium (1,250 mg) Tablet 1,000 mg PO DAILY 14 Days Qty: 28 0RF doxazosin 2 mg Tablet 8 mg PO BEDTIME 30 Days Qty: 120 0RF Protocol: Hold for SBP< HOLD for SBP < : 90 gabapentin 600 mg Tablet 300 mg PO BEDTIME Qty: 0 0RF albuterol sulfate [Ventolin HFA] 90 mcg/actuation HFA aerosol inhaler 2 puff PO Q4H PRN (Reason: Wheezing) 0RF cholecalciferol (vitamin D3) 25 mcg (1,000 unit) tablet 50 mcg PO DAILY 0RF nifedipine 30 mg tablet extended release 120 mg PO BEDTIME 0RF Toujeo Max U-300 SoloStar 300 unit/mL (3 mL) insulin pen 50 unit subcut DAILY Qty: 6 6RF insulin aspart U-100 [Novolog Flexpen U-100 Insulin] 100 unit/mL (3 mL) insulin pen See Rx Instructions subcut TID 30 Days Qty: 30 4RF Rx Instructions: INJECT 10 UNITS SUBCUTANEOUSLY WITH BREAKFAST, 24 UNITS WITH LUNCH, AND 16 UNITS WITH DINNER subcut 3 times a day; <Meera Mcfadden CNP - Last Filed: 11/26/21 17:48> Print Language: Sinhala <Meera Mcfadden CNP - Last Filed: 11/26/21 17:48>
[2021-11-26 12:04] LABS: MANUAL DIFF FLAG NO
[2021-11-26 12:05] LABS: Basophils Percent Auto 0.3 % (0-2); Eosinophils Absolute Auto 0.3 X10*3/uL (0.0-0.4); Eosinophils Percent Auto 5.4 % (0-4); Hematocrit 27.1 % (42.0-52.0); Hemoglobin 9.2 g/dl (14.0-18.0); Imm Gran Abs Auto 0.01 X10*3/uL (0.00-0.03); Imm Gran Pct Auto 0.2 % (0.0-0.4); Lymphocytes Absolute Auto 0.9 X10*3/uL (1.2-4.9); Lymphocytes Percent Auto 13.6 % (20-40); Mean Corpuscular HGB Conc 33.9 g/dl (31.0-36.0); Mean Corpuscular Hemoglobin 29.5 pg (27.0-33.0); Mean Corpuscular Volume 86.9 fL (80.0-98.0); Mean Platelet Volume 11.9 fL (9.4-12.4); Monocytes Absolute Auto 0.4 X10*3/uL (0.1-1.2); Monocytes Percent Auto 5.9 % (2-11); Neutrophils Absolute Auto 4.7 x10*3/uL (2.0-8.3); Neutrophils Percent Auto 74.6 % (45-73); Platelet Count 137 X10*3/uL (160-400); Red Blood Count 3.12 X10*6/uL (4.60-5.80); Red Cell Distribution Width 13.8 % (11.0-16.0); White Blood Count 6.3 X10*3/uL (4.8-10.8)
[2021-11-26 12:13] LABS: D Dimer High Sensitivity 174 NG/ML
[2021-11-26 12:22] LABS: COVID-19 Test Negative (Negative); IDNOW Serial# 9DD0AD1C
[2021-11-26 12:27] LABS: B Type Natriuretic Peptide 274 pg/mL (<100); Troponin-I High Sensitivity 28.7 ng/L (<3.5-35.0)
[2021-11-26 12:40] LABS: Alanine Aminotransferase 27 U/L (0-40); Albumin Level 3.8 g/dL (3.5-5.0); Alkaline Phosphatase 82 U/L (39-117); Anion Gap 18 (12-20); Aspartate Amino Transferase 33 U/L (5-37); Bilirubin Total 0.2 mg/dL (0.0-1.0); Blood Urea Nitrogen 66 mg/dL (9-16); Calcium 7.3 mg/dL (8.4-10.2); Carbon Dioxide 23 mmol/L (22-29); Chloride 107 mmol/L (96-108); Estimated Glomerular Filt Rate 11; Glucose Random 170 mg/dL (60-115); Potassium 3.7 mmol/L (3.3-5.1); Sodium 144 mmol/L (135-145)
[2021-11-26 14:19] VITALS: BP 187/72; PULSE 63; RESP 18; TEMP 36.7; O2SAT 100
[2021-11-26] MEDS: Furosemide 20 MG/2 ML VIAL IVPUSH (15:29)
[2021-11-26] MEDS: 0.9 % Sodium Chloride 1,000 ML 999 ML IV (15:30)
[2021-11-26 15:32] VITALS: BP 173/70; RESP 21
[2021-11-26 17:52] VITALS: BP 186/70; PULSE 61; RESP 19; O2SAT 98
[2021-11-26 19:38] VITALS: BP 189/62; PULSE 62; RESP 16; TEMP 36.7; O2SAT 94
--- NOTE | 2021-11-26 19:40 | PC.NURSE ---
NIMISHA CASTRO IS AWARE OF PATIENT HIGH BLOOD PRESSURE.
[2021-11-26 20:05] LABS: Anion Gap 16 (12-20); Blood Urea Nitrogen 63 mg/dL (9-16); Calcium 7.4 mg/dL (8.4-10.2); Carbon Dioxide 26 mmol/L (22-29); Chloride 106 mmol/L (96-108); Creatinine Clr Calc Pharmacy 20.3; Estimated Glomerular Filt Rate 12; Glucose Random 85 mg/dL (60-115); Potassium 3.4 mmol/L (3.3-5.1); Sodium 145 mmol/L (135-145)
--- NOTE | 2021-11-26 20:32 | PC.NURSE ---
bp elevated due to pt just walked to the bathroom and had a bowel movement. provider made aware.
== END 2021-11-26 20:32 | disposition home or self-care (01) ==
PROVIDERS: Nurse Practitioner Family; Emergency Provider Emergency Medicine; PCP Nurse Practitioner Primary Care
DX: N28.9 Disorder of kidney and ureter, unspecified (principal); R06.02 Shortness of breath; R60.0 Localized edema; E11.22 Type 2 diabetes mellitus with diabetic chronic kidney disease; I12.9 Hypertensive chronic kidney disease with stage 1 through stage 4 chronic kidney disease, or unspecified chronic kidney disease; N18.4 Chronic kidney disease, stage 4 (severe); F17.210 Nicotine dependence, cigarettes, uncomplicated; Z71.6 Tobacco abuse counseling; Z20.822 Contact with and (suspected) exposure to COVID-19; Z79.899 Other long term (current) drug therapy
CPT/HCPCS: 36415; 71046; 80048; 80053; 83735; 83880; 84484; 85025; 85379; 87635; 93005; 93970; 96374; 99284; J1940

== ENCOUNTER 2021-12-01 01:42 | Inpatient (IN) | payer OTHER, SELFPAY ==
[2021-12-01] VITALS (15 sets, daily range): BP systolic 141–180; BP diastolic 46–82; PULSE 55–72; RESP 12–24; TEMP 36.3–37.2; O2SAT 93–100; BMI 35.5; BMI 38.2
--- NOTE | ~2021-12-01 | XR_ITS ---
EXAMINATION: XR CHEST CLINICAL INFORMATION: Shortness of breath COMPARISON: 11/26/2021 TECHNIQUE: Frontal view of the chest was obtained. FINDINGS: Lung volumes are symmetric. No focal consolidation is seen. There is a somewhat coarsened appearance of the interstitium which is similar to prior. No evidence of pneumothorax or significant pleural effusion. Prominent cardiac silhouette is similar to prior. No acute osseous findings are seen. XR/XR chest 1V IMPRESSION: Somewhat coarsened appearance of the interstitium is similar to prior and may reflect airways disease. No acute consolidation identified.
--- NOTE | 2021-12-01 01:41 | ECG_ITS ---
Test Reason : sob Blood Pressure : / mmHG Vent. Rate : 071 BPM Atrial Rate : 071 BPM P-R Int : 194 ms QRS Dur : 158 ms QT Int : 466 ms P-R-T Axes : 026 -61 034 degrees QTc Int : 506 ms Normal sinus rhythm Right bundle branch block Left anterior fascicular block Bifascicular block Minimal voltage criteria for LVH, may be normal variant ( R in aVL ) Abnormal ECG When compared with ECG of 26-NOV-2021 11:43, No significant change was found Referred By: Vilma Shahid Electronically Signed By:GUS GOOD
--- NOTE | 2021-12-01 01:53 | ED_ITS ---
HPI - SOB/Dyspnea General Chief Complaint: Dyspnea Stated Complaint: CHF Time Seen by Provider: 12/01/21 01:47 Source: patient Mode of arrival: EMS History of Present Illness HPI Narrative: 61-year-old male with presentation for increasing shortness of breath and ?swelling?, patient is unable to sleep flat at night but denies any cough and has continued to be compliant with his medications. He otherwise denies any fever, chills, nausea, vomiting, abdominal pain. Related Data Allergies Allergy/AdvReac Type Severity Reaction Status Date / Time No Known Allergies Allergy Verified 12/01/21 01:50 Review of Systems Verdana 4l Review of Systems: Verdana 4d Pertinent positives and Verdana 4d negatives as stated in HPI 10 point review of systems is otherwise negative. Verdana 4d PMFSH Past Medical History Source: nursing notes reviewed Medical History Abnormal biopsy of kidney Anemia Anxiety Asthma CHF (congestive heart failure) Chronic kidney disease, stage 4 (severe) CKD (chronic kidney disease) stage 4, GFR 15-29 ml/min Congestive heart failure COPD (chronic obstructive pulmonary disease) Depression Depression with anxiety Diabetes mellitus with hyperglycemia, with long-term current use of insulin Diabetes type 2, uncontrolled Diastolic dysfunction Diverticulitis Elevated cholesterol Erectile dysfunction Essential hypertension Heart failure with preserved ejection fraction History of alcohol abuse History of headache HTN (hypertension) HTN (hypertension) Hx of pancreatitis Hyperglycemia Hypertension Hypertensive crisis Hypertriglyceridemia On beta doron at home Pancreatitis Peptic ulcer Proteinuria Sleep apnea Type 2 diabetes mellitus with chronic kidney disease Type 2 diabetes mellitus with hyperglycemia, with long-term current use of insulin Type 2 diabetes mellitus with polyneuropathy Type 2 diabetes mellitus with unspecified complications Surgical History History of surgery Hx of colonoscopy Hx of right inguinal hernia repair Family History Family History Mother Diabetes Social History Social History Household Members: None Housing: House Are you a primary plant care worker to a significant other at home: No Do you presently have 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) Alcohol intake: never Patient Tobacco Use Status: Former Tobacco user Quit Date: 2017 Tobacco use type: Cigarette Years Smoked: 30 Second Hand Smoke Exposure: Yes Advance Directives: No Advance Directives Information Provided: Yes service: No Current occupational status: retired Physical Exam Verdana 4l Vital Signs: Verdana 4d Verdana 4d Vital Signs: Verdana 4d Verdana 4Bd Last Vital Signs Verdana 4d Manager Of Care New 4d Manager Of Care New 4d Temp 98.1 F 12/01/21 01:46 Manager Of Care New 4d Pulse 72 12/01/21 01:46 Manager Of Care New 4d Resp 24 H 12/01/21 01:46 BP 149/46 H 12/01/21 01:46 Pulse Ox 100 12/01/21 01:46 Oxygen Flow Rate 4 12/01/21 01:46 BMI result Body Mass Index 35.5 VITAL SIGNS: Reviewed. GENERAL: Well developed, well nourished, in no acute distress. HEAD: Normocephalic/atraumatic EYES: PERRLA, EOMI EARS: Ext canals without abnormality OROPHARYNX: no oral lesions noted, posterior pharynx clear LUNGS: Good inspiratory effort, decreased breath sounds bilaterally without expiratory wheeze, tachypnea is present. SpO2<100> CARDIOVASCULAR: Regular rate and rhythm without noted murmurs, no JVD but bilateral lower extremity edema, 1 to 2+ up to the knees, bilateral dorsum of hands with 1+ pitting edema ABDOMEN: Obese, Soft, non-tender, non-distended with bowel sounds. SKIN: Inspection of the skin reveals no rashes NEUROLOGIC: Alert and oriented x 4. Strength and sensation to light touch were grossly intact x 4. Course Course Course Narrative: 61-year-old male with history and clinical presentation consistent with CHF exacerbation, bedside ultrasound demonstrates extensive B lines bilaterally without noted pleural effusions. Patient received sublingual nitro EN route and then patient was provided with 1/4 inch of nitroglycerin after confirming that he has not used Cialis recently. Patient placed on BiPAP for positive pressure and is otherwise oxygenating well. On re-evaluation he feels better and will receive Lasix and be admitted. On re-evaluation patient is feeling better after being placed on BiPAP. I discussed case with inpatient hospitalist who accepts admission, but will also sign out to Dr. Mack as there are occasions still pending. MDM - SOB/Dyspnea Lab Data Result diagrams: 12/01/21 02:15 12/01/21 02:15 Labs: Lab Results 12/01/21 12/01/21 12/01/21 Range/Units 02:15 02:15 02:18 WBC 6.7 (4.8-10.8) X10*3/uL RBC 2.97 L (4.60-5.80) X10*6/uL Hgb 8.7 L (14.0-18.0) g/dl Hct 26.0 L (42.0-52.0) % MCV 87.5 (80.0-98.0) fL MCH 29.3 (27.0-33.0) pg MCHC 33.5 (31.0-36.0) g/dl RDW 14.0 (11.0-16.0) % Plt Count 148 L (160-400) X10*3/uL MPV 11.4 (9.4-12.4) fL Immature Gran % (Auto) 0.4 (0.0-0.4) % Neut % (Auto) 73.5 H (45-73) % Lymph % (Auto) 14.1 L (20-40) % Wells % (Auto) 7.7 (2-11) % Eos % (Auto) 4.0 (0-4) % Baso % (Auto) 0.3 (0-2) % Lymph # (Auto) 1.0 L (1.2-4.9) X10*3/uL Wells # (Auto) 0.5 (0.1-1.2) X10*3/uL Eos # (Auto) 0.3 (0.0-0.4) X10*3/uL Baso # (Auto) 0.0 (0.0-0.2) X10*3/uL Abs Immat Gran (auto) 0.03 (0.00-0.03) X10*3/uL Absolute Neuts (auto) 4.9 (2.0-8.3) x10*3/uL Absolute Nucleated RBC 0.000 (0.0-0.012) X10*3/uL Nucleated RBC % (auto) 0.0 (0.0-0.2) /100WBC PT 11.6 (9.9-13.0) SEC INR 1.0 (0.9-1.1) VBG pH 7.44 H (7.32-7.43) VBG pCO2 37 mmHg VBG pO2 161 mmHg VBG HCO3 26 (22-26) mmol/L VBG O2 Saturation 100.0 % VBG Base Excess 2.1 mmol/L ECG Data Attestation: I personally reviewed and interpreted this ECG as follows: Prior ECG tracings: available for review Interpretation: Normal sinus rhythm, RBBB, HR-71, no STEMI, HI is within normal limits. Critical Care Time Critical Care Time Critical Care Time: Yes Total Critical Care Time: 30 Attestation: I personally attest to this time spent taking care of the patient. Discharge Plan Discharge Clinical Impression: CHF exacerbation Patient Disposition: Admitted As Inpatient
[2021-12-01 02:20] LABS: MANUAL DIFF FLAG NO
[2021-12-01 02:21] LABS: Basophils Percent Auto 0.3 % (0-2); Eosinophils Absolute Auto 0.3 X10*3/uL (0.0-0.4); Hemoglobin 8.7 g/dl (14.0-18.0); Imm Gran Abs Auto 0.03 X10*3/uL (0.00-0.03); Imm Gran Pct Auto 0.4 % (0.0-0.4); Lymphocytes Percent Auto 14.1 % (20-40); Mean Corpuscular HGB Conc 33.5 g/dl (31.0-36.0); Mean Corpuscular Hemoglobin 29.3 pg (27.0-33.0); Mean Corpuscular Volume 87.5 fL (80.0-98.0); Mean Platelet Volume 11.4 fL (9.4-12.4); Monocytes Absolute Auto 0.5 X10*3/uL (0.1-1.2); Monocytes Percent Auto 7.7 % (2-11); Neutrophils Absolute Auto 4.9 x10*3/uL (2.0-8.3); Neutrophils Percent Auto 73.5 % (45-73); Platelet Count 148 X10*3/uL (160-400); Red Blood Count 2.97 X10*6/uL (4.60-5.80); White Blood Count 6.7 X10*3/uL (4.8-10.8)
[2021-12-01] MEDS: Nitroglycerin 2 % Oint 1 GM Packet 0.25 INCH TRANSDERMA (02:24)
[2021-12-01 02:29] LABS: Prothrombin Time 11.6 SEC (9.9-13.0)
[2021-12-01 02:32] LABS: VBG Base Excess 2.1 mmol/L; VBG HCO3 26 mmol/L (22-26); VBG pCO2 37 mmHg; VBG pH 7.44 (7.32-7.43); VBG pO2 161 mmHg
[2021-12-01 02:36] LABS: Venous Blood Gas Refer to POC result
[2021-12-01 02:37] LABS: COVID-19 Test Negative (Negative); IDNOW Serial# 55D5AD1C
[2021-12-01 02:45] LABS: B Type Natriuretic Peptide 353 pg/mL (<100)
[2021-12-01 02:55] LABS: Alanine Aminotransferase 47 U/L (0-40); Albumin Level 3.9 g/dL (3.5-5.0); Alkaline Phosphatase 101 U/L (39-117); Anion Gap 17 (12-20); Aspartate Amino Transferase 31 U/L (5-37); Bilirubin Total 0.4 mg/dL (0.0-1.0); Blood Urea Nitrogen 80 mg/dL (9-16); Calcium 7.2 mg/dL (8.4-10.2); Carbon Dioxide 26 mmol/L (22-29); Chloride 105 mmol/L (96-108); Estimated Glomerular Filt Rate 10; Glucose Random 170 mg/dL (60-115); Potassium 3.5 mmol/L (3.3-5.1); Sodium 144 mmol/L (135-145)
[2021-12-01] MEDS: Furosemide 100 MG/10 ML VIAL 80 MG IVPUSH (03:06)
--- NOTE | 2021-12-01 03:36 | PC.NURSE ---
Dr Presley at bedside performing MD salguero, removed pt from bipap, requested that pt be placed on cpap which he wears at nighttime at baseline. This RN made RT aware.
--- NOTE | 2021-12-01 05:11 | PM.IMHP ---
History of Present Illness Date of Service: 12/01/21 Chief Complaint: SOB 61-year-old male with PMH of HTN, HLD, DM, HFpEFf, CKD stage 4, Asthma/COPD, BRENDA on CPAP, Aanxiety, depression, Hx of pancreatitis presented to the hospital with a chief complaint of shortness of breath/peripheral edema.? Patient reports that he has been having shortness of breath and generalized weakness going on for the past 1 week.? His shortness of breath worsens on exertion.? Mentioned that he has been complaint with his home medications.? Denies any fever chills and cough.? Denies any chest pain or palpitations.? pt mentions that he presented to ER couple days ago with similar ROS negative , except mention above ER course: ER team mentioned the patient on presentation noted to be in mild respiratory distress-placed on BiPAP. Given Lasix and nitroglycerin. Improved respiratory status. Admitted to the hospital for further management. [facility] Medical History Abnormal biopsy of kidney Anemia Anxiety Asthma CHF (congestive heart failure) Chronic kidney disease, stage 4 (severe) CKD (chronic kidney disease) stage 4, GFR 15-29 ml/min Congestive heart failure COPD (chronic obstructive pulmonary disease) Depression Depression with anxiety Diabetes mellitus with hyperglycemia, with long-term current use of insulin Diabetes type 2, uncontrolled Diastolic dysfunction Diverticulitis Elevated cholesterol Erectile dysfunction Essential hypertension Heart failure with preserved ejection fraction History of alcohol abuse History of headache HTN (hypertension) HTN (hypertension) Hx of pancreatitis Hyperglycemia Hypertension Hypertensive crisis Hypertriglyceridemia On beta doron at home Pancreatitis Peptic ulcer Proteinuria Sleep apnea Type 2 diabetes mellitus with chronic kidney disease Type 2 diabetes mellitus with hyperglycemia, with long-term current use of insulin Type 2 diabetes mellitus with polyneuropathy Type 2 diabetes mellitus with unspecified complications Family History Mother Diabetes Surgical History History of surgery Hx of colonoscopy Hx of right inguinal hernia repair Social History Household Members: None Housing: House Are you a primary healthcare business analyst to a significant other at home: No Do you presently 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) Alcohol intake: never Patient Tobacco Use Status: Former Tobacco user Quit Date: 2017 Tobacco use type: Cigarette Years Smoked: 30 Second Hand Smoke Exposure: Yes Advance Directives: No Advance Directives Information Provided: Yes service: No Current occupational status: retired Meds Allergies Allergy/AdvReac Type Severity Reaction Status Date / Time No Known Allergies Allergy Verified 12/01/21 01:50 Active Medications: Current Medications Acetaminophen (Acetaminophen 325 Mg Tablet) 650 mg PO Q6H PRN PRN Reason: Pain, Mild (Pain Scale 1-3) Aspirin (Aspirin Enteric Coated 81 Mg Tablet.) 81 mg PO QAM [facility] Atorvastatin Calcium (Atorvastatin Calcium 80 Mg Tablet) 80 mg PO QPM [facility] Carvedilol (Carvedilol 25 Mg Tablet) 25 mg PO BID THAO; Protocol Doxazosin Mesylate (Doxazosin Mesylate 2 Mg Tablet) 2 mg PO DAILY THAO; Protocol Enoxaparin Sodium (Enoxaparin Sodium 40 Mg/0.4 Ml Syringe) 40 mg SUBCUT Q24H [facility] Furosemide (Furosemide 40 Mg/4 Ml Vial) 80 mg IVPUSH DAILY THAO; Protocol Gabapentin (Gabapentin 600 Mg Tablet) 600 mg PO BEDTIME [facility] Isosorbide Mononitrate (Isosorbide Mononitrate 60 Mg Tab.Er.24h) 120 mg PO QAM [facility]AO; Protocol Melatonin (Melatonin 3 Mg Tablet) 6 mg PO BEDTIME PRN PRN Reason: Insomnia Nitroglycerin (Nitroglycerin 0.4 Mg Tab.Subl) 0.4 mg SUBLINGUAL Q5MX3 PRN PRN Reason: Chest Pain Non-Formulary Medication (Icosapent Ethyl [Vascepa]) 2 cap PO BID [facility] Non-Formulary Medication (Nifedipine) 4 tab PO BEDTIME [facility] Omeprazole (Omeprazole 40 Mg Capsule.) 40 mg PO QAM [facility] Oxcarbazepine (Oxcarbazepine 300 Mg Tablet) 300 mg PO BID [facility] Perphenazine (Perphenazine 2 Mg Tablet) 2 mg PO BID [facility] Perphenazine (Perphenazine 4 Mg Tablet) 4 mg PO BID [facility] Senna (Sennosides 8.6 Mg Tablet) 17.2 mg PO BEDTIME PRN PRN Reason: Constipation Sertraline HCl (Sertraline Hcl 100 Mg Tablet) 200 mg PO QAM [facility] Sodium Chloride (0.9 % Sodium Chloride Flush 3 Ml Syringe) 3 ml IVFLUSH QSHIFT [facility] Vitamin D (Cholecalciferol (Vitamin D3) 25 Mcg Tablet) 50 mcg PO QAM [facility] Zolpidem Tartrate (Zolpidem Tartrate 5 Mg Tablet) 10 mg PO BEDTIME PRN PRN Reason: Insomnia Home Medications Medication Instructions Recorded Confirmed Last Taken Type aspirin 81 mg tablet,delayed 1 tab PO QAM 12/01/21 12/01/21 Unknown History release atorvastatin 80 mg tablet 1 tab PO QPM 12/01/21 12/01/21 Unknown History carvedilol 25 mg tablet 1 tab PO BID 12/01/21 12/01/21 Unknown History cholecalciferol (vitamin D3) 25 2 tab PO QAM 12/01/21 12/01/21 Unknown History mcg (1,000 unit) tablet doxazosin 2 mg tablet 2 mg PO DAILY 12/01/21 12/01/21 Unknown History gabapentin 600 mg tablet 600 mg PO BEDTIME 12/01/21 12/01/21 Unknown History hydralazine 100 mg tablet 1 tab PO TID 12/01/21 12/01/21 Unknown History icosapent ethyl 1 gram capsule 2 cap PO BID 12/01/21 12/01/21 Unknown History (Vascepa) insulin aspart U-100 100 unit/mL SUBCUT TID 12/01/21 Unknown History (3 mL) subcutaneous pen (Novolog Flexpen U-100 Insulin aspart) insulin glargine U-300 conc 300 60 unit SUBCUT DAILY 12/01/21 12/01/21 Unknown History unit/mL (3 mL) subcutaneous pen (Toujeo Max U-300 SoloStar) isosorbide mononitrate 60 mg 2 tab PO QAM 12/01/21 12/01/21 Unknown History tablet,extended release 24 hr nifedipine 30 mg tablet,extended 4 tab PO BEDTIME 12/01/21 12/01/21 Unknown History release omeprazole 40 mg capsule,delayed 1 cap PO QAM 12/01/21 12/01/21 Unknown History release oxcarbazepine 300 mg tablet 1 tab PO BID 12/01/21 12/01/21 Unknown History perphenazine 2 mg tablet 1 tab PO BID 12/01/21 12/01/21 Unknown History perphenazine 4 mg tablet 1 tab PO BID 12/01/21 12/01/21 Unknown History sertraline 100 mg tablet 2 tab PO QAM 12/01/21 12/01/21 Unknown History torsemide 20 mg tablet 4 tab PO BID 12/01/21 12/01/21 Unknown History tramadol 50 mg tablet 2 tab PO Q8H PRN 12/01/21 12/01/21 Unknown History zolpidem 10 mg tablet 1 tab PO BEDTIME PRN 12/01/21 12/01/21 Unknown History Physical Exam Vital Signs and Narrative: Vital Signs: Last Vital Signs Temp 98.1 F 12/01/21 01:46 Pulse 66 12/01/21 03:05 Resp 18 12/01/21 03:05 BP 141/69 H 12/01/21 03:05 Pulse Ox 99 12/01/21 03:05 Oxygen Flow Rate 4 12/01/21 01:46 BMI result Body Mass Index 35.5 ?Gen: Appears be in no acute distress.? Breathing comfortably on Room Air.? Speaking in full sentences HEENT:? NCAT,? Moist mucosa. Pulmonary:? Coarse breath sounds. CVS:? Normal S1-S2 Abdomen: BS+, Soft, Nontender Extremities:? Warm well perfused; 2+pedal edema Neuro:? Alert and awake. Results Labs CBC and Chem 7: 12/01/21 02:15 12/01/21 02:15 Labs: Laboratory Results - last 24 hr 12/01/21 12/01/21 12/01/21 02:15 02:15 02:15 MCV 87.5 MCH 29.3 MCHC 33.5 RDW 14.0 Plt Count 148 L MPV 11.4 Immature Gran % (Auto) 0.4 Neut % (Auto) 73.5 H Lymph % (Auto) 14.1 L [place] % (Auto) 7.7 Eos % (Auto) 4.0 Baso % (Auto) 0.3 Lymph # (Auto) 1.0 L [place] # (Auto) 0.5 Eos # (Auto) 0.3 Baso # (Auto) 0.0 Abs Immat Gran (auto) 0.03 Absolute Neuts (auto) 4.9 Absolute Nucleated RBC 0.000 Nucleated RBC % (auto) 0.0 PT INR VBG pH VBG pCO2 VBG pO2 VBG HCO3 VBG O2 Saturation VBG Base Excess Anion Gap 17 Estim Creat Clear Calc 17.0 Estimated GFR 10 Random Glucose 170 H D Calcium 7.2 L Total Bilirubin 0.4 AST 31 ALT 47 H Alkaline Phosphatase 101 D B-Natriuretic Peptide 353 H Total Protein 7.0 Albumin 3.9 COVID-19 (RIGOBERTO) COVID-19 Clin Com 12/01/21 12/01/21 12/01/21 02:15 02:15 02:18 MCV MCH MCHC RDW Plt Count MPV Immature Gran % (Auto) Neut % (Auto) Lymph % (Auto) [place]ancock % (Auto) Eos % (Auto) Baso % (Auto) Lymph # (Auto) [place] # (Auto) Eos # (Auto) Baso # (Auto) Abs Immat Gran (auto) Absolute Neuts (auto) Absolute Nucleated RBC Nucleated RBC % (auto) PT 11.6 INR 1.0 VBG pH 7.44 H VBG pCO2 37 VBG pO2 161 VBG HCO3 26 VBG O2 Saturation 100.0 VBG Base Excess 2.1 Anion Gap Estim Creat Clear Calc Estimated GFR Random Glucose Calcium Total Bilirubin AST ALT Alkaline Phosphatase B-Natriuretic Peptide Total Protein Albumin COVID-19 (RIGOBERTO) Negative COVID-19 Clin Com See Note Imaging Radiologist's Impressions: Impressions Chest X-Ray 12/01/21 02:46 IMPRESSION: Somewhat coarsened appearance of the interstitium is similar to prior and may reflect airways disease. No acute consolidation identified. Assessment and Plan (1) CHF exacerbation: Status: Acute (2) Diabetes type 2, uncontrolled: Qualifiers: Coma presence: without coma Glycemic state: with hypoglycemia Qualified Code(s): E11.649 - Type 2 diabetes mellitus with hypoglycemia without coma Status: Acute Plan 61-year-old male with PMH of HTN, HLD, DM, HFpEFf, CKD stage 4, Asthma/COPD, BRENDA on CPAP, Aanxiety, depression, Hx of pancreatitis presented to the hospital with a chief complaint of shortness of breath/peripheral edema.? Acute CHF exacerbation: Echocardiogram from July 2021 showed EF of 65-70%, severe LVH, normal RV function, mild dilation of ascending aorta. Continue Lasix 80 mg IV b.i.d.. Telemetry Cardiology consult Hypertension: Patient is on Imdur, carvedilol, hydralazine, nifedipine at home. Currently systolic blood pressure in 140s. Held hydralazine for now. Monitor blood pressure and adjust her medications as needed. Diabetes: Hold home insulin regimen.? Will keep the patient on Lantus 20 units and insulin sliding scale.? Monitor fingerstick glucose.? Adjust insulins as needed.? MARNI on CKD:? Creatinine was 4.4 renal last discharge in September of 2021.?? today creatinine noted to be 5.8. Nephrology follow-up. History of asthma/COPD:? Nohemi p.r.n..? History of anxiety/depression: Continue home medications.? History of BRENDA: CPAP at night DVT prophylaxis:? Lovenox Code status:? Full code Quality Stroke Does the patient have a stroke diagnosis?: No VTE Prior VTE?: No VTE Risk Level:: Medical - moderate - high VTE Device Contraindication: N/A - Device Ordered VTE Drug Contraindication: Treatment Not Indicated
--- NOTE | 2021-12-01 06:06 | PC.NURSE ---
Addendum entered by Brissa Helm 12/01/21 06:13: Per Emil RT, RT to come to bedside to modify settings from BiPAP to CPAP. Original Note: This RN to bedside to assess VS. Pt asleep on stretcher with BiPAP mask on. This RN notes that Dr Presley had stated pt did not need BiPAP after his initial eval, and RT was made aware to place pt on CPAP as per baseline home requirements. This RN to notify RT once again that pt is to be on home CPAP settings rather than on BiPAP at this time.
--- NOTE | 2021-12-01 08:44 | PC.NURSE ---
pt taken off cpap by respiratory therapist. report given to NIMISHA Worthy
[2021-12-01] MEDS: Enoxaparin Sodium 40 MG/0.4 ML SYRINGE SUBCUT (09:26)
[2021-12-01] MEDS: Cholecalciferol (Vitamin D3) 25 MCG TABLET 50 MCG PO (09:26)
[2021-12-01] MEDS: Omeprazole 40 MG CAPSULE.DR PO (09:26)
[2021-12-01] MEDS: hydrALAZINE HCl 50 MG TABLET PO ×3 (09:27→21:32)
[2021-12-01] MEDS: carvediloL 25 MG TABLET PO ×2 (09:27→21:32)
[2021-12-01] MEDS: Doxazosin Mesylate 2 MG TABLET PO (09:27)
[2021-12-01] MEDS: Aspirin Enteric Coated 81 MG TABLET.DR PO (09:27)
[2021-12-01] MEDS: Isosorbide Mononitrate 60 MG TAB.ER.24H 120 MG PO (09:28)
[2021-12-01] MEDS: Perphenazine 4 MG TABLET PO ×2 (09:28→21:32)
[2021-12-01] MEDS: Sertraline HCL 100 MG TABLET 200 MG PO (09:28)
[2021-12-01] MEDS: Perphenazine 2 MG TABLET PO ×2 (09:28→21:32)
[2021-12-01] MEDS: OXcarbazepine 300 MG TABLET PO ×2 (09:28→21:32)
[2021-12-01] MEDS: 0.9 % Sodium Chloride Flush 3 ML SYRINGE IVFLUSH ×3 (09:29→22:43)
--- NOTE | 2021-12-01 09:29 | PHA.MEDREC ---
Pharmacy Consult ? Medication Reconciliation Pharmacy has completed the medication reconciliation. Pt states he uses novolog 10 units at breakfast, 16 units at lunch and 24 units at dinner. Also states he uses 50 units of Toujeo Max U-300 daily. Kelly Ribeiro, PharmD
--- NOTE | 2021-12-01 09:47 | PC.NURSE ---
Pt is alert and oriented, accepted AM meds. States increased SOB, LS diminished with exp wheezing noted. RT called for PRN updraft. Sat remains 98% on room air. Tuttle patent with yellow urine in drainage bag.
--- NOTE | 2021-12-01 10:00 | P.CONCA_ITS ---
History of Present Illness History of Present Illness Date of Service: 12/01/21 Chief complaint: CHF Narrative: This is a cardiology consultation regarding shortness of breath. This is a g entleman with poorly controlled hypertension, advanced kidney disease, diabetes, asthma/COPD, obstructive sleep apnea, heart failure with preserved ejection fraction and multiple medical comorbidities. Presentation is with complaints of shortness of breath and just feeling weak for the last several days. Exertion shortness of breath. Per history, compliant with medications. No clear anginal-type complaints. We have been asked to assess him from a cardiac standpoint. Review of Systems Verdana 4l Review of Systems: Verdana 4d Yes all other systems are reviewed and are negative Verdana 4l Cardiovascular: Verdana 4d Verdana 4d Cardiovascular: Verdana 4d Reports as per HPI, Reports no additional cardiovascular complaints, Denies acrocyanosis, Denies cool extremities, Denies painful fingertips, Denies chest pain, Denies chest pain at rest, Denies diaphoresis, DeniesDenies syncope, Denies irregular heart rhythm, Denies claudication, Reports leg edema, Denies lightheadedness, Denies palpitations and Reports dyspnea Respiratory: Respiratory: Reports dyspnea Neurologic: Denies syncope Endocrine: Endocrine: Denies palpitations PMFSH Past Medical History Medical History Abnormal biopsy of kidney Anemia Anxiety Asthma CHF (congestive heart failure) Chronic kidney disease, stage 4 (severe) CKD (chronic kidney disease) stage 4, GFR 15-29 ml/min Congestive heart failure COPD (chronic obstructive pulmonary disease) Depression Depression with anxiety Diabetes mellitus with hyperglycemia, with long-term current use of insulin Diabetes type 2, uncontrolled Diastolic dysfunction Diverticulitis Elevated cholesterol Erectile dysfunction Essential hypertension Heart failure with preserved ejection fraction History of alcohol abuse History of headache HTN (hypertension) HTN (hypertension) Hx of pancreatitis Hyperglycemia Hypertension Hypertensive crisis Hypertriglyceridemia On beta doron at home Pancreatitis Peptic ulcer Proteinuria Sleep apnea Type 2 diabetes mellitus with chronic kidney disease Type 2 diabetes mellitus with hyperglycemia, with long-term current use of insulin Type 2 diabetes mellitus with polyneuropathy Type 2 diabetes mellitus with unspecified complications Family History Family History Mother Diabetes Surgical History Surgical History History of surgery Hx of colonoscopy Hx of right inguinal hernia repair Social History Social History Household Members: None Housing: House Are you a primary respiratory care assistant to a significant other at home: No Do you presently have visiting nurse or other home services: Yes ([employer]) Alcohol intake: never Patient Tobacco Use Status: Former Tobacco user Quit Date: 2017 Tobacco use type: Cigarette Years Smoked: 30 Second Hand Smoke Exposure: Yes Advance Directives: No Advance Directives Information Provided: Yes service: No Current occupational status: retired Meds Allergies Allergy/AdvReac Type Severity Reaction Status Date / Time No Known Allergies Allergy Verified 12/01/21 01:50 Active Medications: Current Medications Acetaminophen (Acetaminophen 325 Mg Tablet) 650 mg PO Q6H PRN PRN Reason: Pain, Mild (Pain Scale 1-3) Albuterol/Ipratropium (Albuterol/Iprat 2.5/0.5mg 3 Ml Ampul.Neb) 3 ml INHALE RQ4H PRN PRN Reason: shortness of breath/wheeze Aspirin (Aspirin Enteric Coated 81 Mg Tablet.) 81 mg PO DAILY [facility] Last Admin: 12/01/21 09:27 Dose: 81 mg Documented by: Atorvastatin Calcium (Atorvastatin Calcium 80 Mg Tablet) 80 mg PO BEDTIME [facility] Carvedilol (Carvedilol 25 Mg Tablet) 25 mg PO BID [facility]; Protocol Last Admin: 12/01/21 09:27 Dose: 25 mg Documented by: Doxazosin Mesylate (Doxazosin Mesylate 2 Mg Tablet) 2 mg PO DAILY [facility]; Protocol Last Admin: 12/01/21 09:27 Dose: 2 mg Documented by: Enoxaparin Sodium (Enoxaparin Sodium 40 Mg/0.4 Ml Syringe) 40 mg SUBCUT Q24H [facility] Last Admin: 12/01/21 09:26 Dose: 40 mg Documented by: Furosemide (Furosemide 40 Mg/4 Ml Vial) 80 mg IVPUSH DAILY [facility]; Protocol Gabapentin (Gabapentin 600 Mg Tablet) 600 mg PO BEDTIME [facility] Hydralazine HCl (Hydralazine Hcl 50 Mg Tablet) 50 mg PO TID [facility]; Protocol Last Admin: 12/01/21 09:27 Dose: 50 mg Documented by: Isosorbide Mononitrate (Isosorbide Mononitrate 60 Mg Tab.Er.24h) 120 mg PO DAILY [facility]; Protocol Last Admin: 12/01/21 09:28 Dose: 120 mg Documented by: Melatonin (Melatonin 3 Mg Tablet) 6 mg PO BEDTIME PRN PRN Reason: Insomnia Nitroglycerin (Nitroglycerin 0.4 Mg Tab.Subl) 0.4 mg SUBLINGUAL Q5MX3 PRN PRN Reason: Chest Pain Non-Formulary Medication (Icosapent Ethyl [Vascepa]) 2 cap PO BID [facility] Non-Formulary Medication (Nifedipine) 4 tab PO BEDTIME [facility] Omeprazole (Omeprazole 40 Mg Capsule.Dr) 40 mg PO DAILY [facility] Last Admin: 12/01/21 09:26 Dose: 40 mg Documented by: Oxcarbazepine (Oxcarbazepine 300 Mg Tablet) 300 mg PO BID [facility] Last Admin: 12/01/21 09:28 Dose: 300 mg Documented by: Perphenazine (Perphenazine 2 Mg Tablet) 2 mg PO BID [facility] Last Admin: 12/01/21 09:28 Dose: 2 mg Documented by: Perphenazine (Perphenazine 4 Mg Tablet) 4 mg PO BID [facility] Last Admin: 12/01/21 09:28 Dose: 4 mg Documented by: Senna (Sennosides 8.6 Mg Tablet) 17.2 mg PO BEDTIME PRN PRN Reason: Constipation Sertraline HCl (Sertraline Hcl 100 Mg Tablet) 200 mg PO DAILY [facility] Last Admin: 12/01/21 09:28 Dose: 200 mg Documented by: Sodium Chloride (0.9 % Sodium Chloride Flush 3 Ml Syringe) 3 ml IVFLUSH QSHIFT [facility] Last Admin: 12/01/21 09:29 Dose: 3 ml Documented by: Vitamin D (Cholecalciferol (Vitamin D3) 25 Mcg Tablet) 50 mcg PO DAILY [facility] Last Admin: 12/01/21 09:26 Dose: 50 mcg Documented by: Zolpidem Tartrate (Zolpidem Tartrate 5 Mg Tablet) 10 mg PO BEDTIME PRN PRN Reason: Insomnia Home Medications Medication Instructions Recorded Confirmed Last Taken Type albuterol sulfate 2 puff PO Q4H 12/01/21 12/01/21 Unknown History 90 mcg/actuation PRN aerosol inhaler (Ventolin HFA) aspirin 81 mg 1 tab PO DAILY 12/01/21 12/01/21 12/01/21 History tablet,delayed release atorvastatin 80 1 tab PO BEDTIME 12/01/21 12/01/21 11/30/21 History mg tablet carvedilol 25 mg 1 tab PO BID 12/01/21 12/01/21 12/01/21 History tablet cholecalciferol 2 tab PO DAILY 12/01/21 12/01/21 12/01/21 History (vitamin D3) 25 mcg (1,000 unit) tablet doxazosin 2 mg 2 mg PO DAILY 12/01/21 12/01/21 Unknown History tablet gabapentin 600 mg 600 mg PO 12/01/21 12/01/21 11/30/21 History tablet BEDTIME hydralazine 100 1 tab PO TID 12/01/21 12/01/21 11/30/21 History mg tablet icosapent ethyl 1 2 cap PO BID 12/01/21 12/01/21 Unknown History gram capsule (Vascepa) insulin aspart 10 unit SUBCUT 12/01/21 12/01/21 11/30/21 History U-100 100 unit/mL DAILY (3 mL) subcutaneous pen (Novolog Flexpen U-100 Insulin aspart) insulin aspart 16 unit SUBCUT 12/01/21 12/01/21 11/30/21 History U-100 100 unit/mL QNOON (3 mL) subcutaneous pen (Novolog Flexpen U-100 Insulin aspart) insulin aspart 24 unit SUBCUT 12/01/21 12/01/21 11/30/21 History U-100 100 unit/mL DAILY@1700 (3 mL) subcutaneous pen (Novolog Flexpen U-100 Insulin aspart) insulin glargine 50 unit SUBCUT 12/01/21 12/01/21 Unknown History U-300 conc 300 DAILY unit/mL (3 mL) subcutaneous pen (Toujeo Max U-300 SoloStar) isosorbide 2 tab PO DAILY 12/01/21 12/01/21 12/01/21 History mononitrate 60 mg tablet,extended release 24 hr nifedipine 30 mg 4 tab PO BEDTIME 12/01/21 12/01/21 11/30/21 History tablet,extended release omeprazole 40 mg 1 cap PO DAILY 12/01/21 12/01/21 12/01/21 History capsule,delayed release oxcarbazepine 300 1 tab PO BID 02/02/1612/01/21 12/01/21 History mg tablet perphenazine 2 mg 1 tab PO BID 12/01/21 12/01/21 11/30/21 History tablet perphenazine 4 mg 1 tab PO BID 12/01/21 12/01/21 11/30/21 History tablet sertraline 100 mg 2 tab PO DAILY 12/01/21 12/01/21 11/30/21 History tablet torsemide 20 mg 4 tab PO BID 12/01/21 12/01/21 11/30/21 History tablet tramadol 50 mg 2 tab PO Q8H PRN 12/01/21 12/01/21 Unknown History tablet zolpidem 10 mg 1 tab PO BEDTIME 12/01/21 12/01/21 Unknown History tablet PRN Physical Exam Verdana 4l Vital Signs: Verdana 4d Verdana 4d Vital Signs: Verdana 4d Verdana 4Bd Last Vital Signs Verdana 4d Director Of [employer] New 4d Director Of [employer] New 4d Temp 97.3 F 12/01/21 09:15 Director Of Integrated Marketing New 4d Pulse 67 12/01/21 09:15 Director Of Integrated [employer] New 4d Resp 16 12/01/21 09:15 BP 174/69 H 12/01/21 09:15 Pulse Ox 99 12/01/21 09:15 Oxygen Flow Rate 21 12/01/21 07:36 BMI result Body Mass Index 35.5 Const: General: no acute distress HENMT: Other: Unremarkable Neck: Neck: Yes normal visual inspection Chest: Chest palpation & inspection: normal inspection of the chest Resp: Auscultation: crackles Cardio: Palpation: normal PMI Heart sounds: S1 normal heart sound present, S2 normal heart sound present, no gallops, no murmurs and no rubs GI: Palpation (GI): Soft to palpation Back/Spine/Pelvis: Other: unremarkable Skin: Lesions: other Neuro: Cranial nerves: Yes Other cranial nerve findings present Extrem: General: Yes pedal edema (1+) and Yes other Psych: Mental Status: other Objective Labs and Meds Result diagrams: 12/01/21 02:15 12/01/21 02:15 Lab results: Laboratory Results - last 24 hr 12/01/21 12/01/21 12/01/21 02:15 02:15 02:15 WBC 6.7 RBC 2.97 L Hgb 8.7 L Hct 26.0 L MCV 87.5 MCH 29.3 MCHC 33.5 RDW 14.0 Plt Count 148 L MPV 11.4 Immature Gran % (Auto) 0.4 Neut % (Auto) 73.5 H Lymph % (Auto) 14.1 L [place] % (Auto) 7.7 Eos % (Auto) 4.0 Baso % (Auto) 0.3 Lymph # (Auto) 1.0 L [place] # (Auto) 0.5 Eos # (Auto) 0.3 Baso # (Auto) 0.0 Abs Immat Gran (auto) 0.03 Absolute Neuts (auto) 4.9 Absolute Nucleated RBC 0.000 Nucleated RBC % (auto) 0.0 PT INR VBG pH VBG pCO2 VBG pO2 VBG HCO3 VBG O2 Saturation VBG Base Excess Sodium 144 Potassium 3.5 Chloride 105 Carbon Dioxide 26 Anion Gap 17 BUN 80 H D Creatinine 5.88 H* Estim Creat Clear Calc 17.0 Estimated GFR 10 Random Glucose 170 H D Calcium 7.2 L Total Bilirubin 0.4 AST 31 ALT 47 H Alkaline Phosphatase 101 D B-Natriuretic Peptide 353 H Total Protein 7.0 Albumin 3.9 COVID-19 (RIGOBERTO) COVID-19 Clin Com 12/01/21 12/01/21 12/01/21 02:15 02:15 02:18 WBC RBC Hgb Hct MCV MCH MCHC RDW Plt Count MPV Immature Gran % (Auto) Neut % (Auto) Lymph % (Auto) [place] % (Auto) Eos % (Auto) Baso % (Auto) Lymph # (Auto) [place] # (Auto) Eos # (Auto) Baso # (Auto) Abs Immat Gran (auto) Absolute Neuts (auto) Absolute Nucleated RBC Nucleated RBC % (auto) PT 11.6 INR 1.0 VBG pH 7.44 H VBG pCO2 37 VBG pO2 161 VBG HCO3 26 VBG O2 Saturation 100.0 VBG Base Excess 2.1 Sodium Potassium Chloride Carbon Dioxide Anion Gap BUN Creatinine Estim Creat Clear Calc Estimated GFR Random Glucose Calcium Total Bilirubin AST ALT Alkaline Phosphatase B-Natriuretic Peptide Total Protein Albumin COVID-19 (RIGOBERTO) Negative COVID-19 Clin Com See Note ECG Interpretation: EKG with sinus rhythm at 71/Min; right bundle-branch block and left anterior fascicular block. Imaging Radiologist's impression: Impressions Chest X-Ray 12/01/21 02:46 IMPRESSION: Somewhat coarsened appearance of the interstitium is similar to prior and may reflect airways disease. No acute consolidation identified. Assessment and Plan (1) Acute on chronic heart failure with preserved ejection fraction (HFpEF): Status: Resolved (2) Hypertensive emergency: Status: Resolved (3) Chronic kidney disease, stage 4 (severe): (4) Diabetes mellitus with hyperglycemia, with long-term current use of insulin: Plan Last echocardiogram from July shows LVEF 65-70% with severe left ventricular hypertrophy. Moderately dilated left atrium. Myocardial perfusion imaging study in the past had shown normal perfusion. Overall, primary issue is uncontrolled hypertension in the context of advanced renal disease. His creatinine is 5.88 and BUN is 80. These are higher than before. Current regimen as listed includes carvedilol, hydralazine, Imdur, doxazosin, nifedipine. Diuretics as guided by Nephrology due to advanced renal disease. Possibly time to initiate dialysis due to recurrent heart failure admissions as well as uncontrolled hypertension but Renal to decide on this. Will follow up with you. Procedures Date of Service Date of Service: 12/01/21
[2021-12-01] MEDS: Albuterol/Iprat 2.5/0.5MG 3 ML AMPUL.NEB INHALE (10:11)
--- NOTE | 2021-12-01 12:01 | HO.PM.IMPN ---
Subjective Subjective Date of Service: 12/01/21 Interval History: This history was taken in [place] from the patient. Physical Exam Vital Signs: Vital Signs: Last Vital Signs Temp 97.3 F 12/01/21 09:15 Pulse 64 12/01/21 10:12 Resp 21 H 12/01/21 10:12 BP 174/69 H 12/01/21 09:15 Pulse Ox 99 12/01/21 09:15 Oxygen Flow Rate 21 12/01/21 07:36 BMI result Body Mass Index 35.5 Objective Data Active Medications Acetaminophen (Acetaminophen 325 Mg Tablet) 650 mg PO Q6H PRN PRN Reason: Pain, Mild (Pain Scale 1-3) Albuterol/Ipratropium (Albuterol/Iprat 2.5/0.5mg 3 Ml Ampul.Neb) 3 ml INHALE RQ4H PRN PRN Reason: shortness of breath/wheeze Last Admin: 12/01/21 10:11 Dose: 3 ml Documented by: HENRY Aspirin (Aspirin Enteric Coated 81 Mg Tablet.) 81 mg PO DAILY [facility] OF [facility] Last Admin: 12/01/21 09:27 Dose: 81 mg Documented by: LIANNA Atorvastatin Calcium (Atorvastatin Calcium 80 Mg Tablet) 80 mg PO BEDTIME [facility] Carvedilol (Carvedilol 25 Mg Tablet) 25 mg PO BID [facility]; Protocol Last Admin: 12/01/21 09:27 Dose: 25 mg Documented by: LIANNA Doxazosin Mesylate (Doxazosin Mesylate 2 Mg Tablet) 2 mg PO DAILY [facility]; Protocol Last Admin: 12/01/21 09:27 Dose: 2 mg Documented by: LIANNA Enoxaparin Sodium (Enoxaparin Sodium 40 Mg/0.4 Ml Syringe) 40 mg SUBCUT Q24H [facility] OF [facility] Last Admin: 12/01/21 09:26 Dose: 40 mg Documented by: LIANNA Furosemide (Furosemide 40 Mg/4 Ml Vial) 80 mg IVPUSH DAILY [facility]; Protocol Gabapentin (Gabapentin 600 Mg Tablet) 600 mg PO BEDTIME [facility] Hydralazine HCl (Hydralazine Hcl 50 Mg Tablet) 50 mg PO TID [facility]; Protocol Last Admin: 12/01/21 09:27 Dose: 50 mg Documented by: LIANNA Isosorbide Mononitrate (Isosorbide Mononitrate 60 Mg Tab.Er.24h) 120 mg PO DAILY [facility]; Protocol Last Admin: 12/01/21 09:28 Dose: 120 mg Documented by: LIANNA Melatonin (Melatonin 3 Mg Tablet) 6 mg PO BEDTIME PRN PRN Reason: Insomnia Nitroglycerin (Nitroglycerin 0.4 Mg Tab.Subl) 0.4 mg SUBLINGUAL Q5MX3 PRN PRN Reason: Chest Pain Non-Formulary Medication (Icosapent Ethyl [Vascepa]) 2 cap PO BID ON [facility] Non-Formulary Medication (Nifedipine) 4 tab PO BEDTIME [facility] Omeprazole (Omeprazole 40 Mg Capsule.Dr) 40 mg PO DAILY [facility] Last Admin: 12/01/21 09:26 Dose: 40 mg Documented by: LIANNA Oxcarbazepine (Oxcarbazepine 300 Mg Tablet) 300 mg PO BID [facility] Last Admin: 12/01/21 09:28 Dose: 300 mg Documented by: LIANNA Perphenazine (Perphenazine 2 Mg Tablet) 2 mg PO BID [facility] Last Admin: 12/01/21 09:28 Dose: 2 mg Documented by: LIANNA Perphenazine (Perphenazine 4 Mg Tablet) 4 mg PO BID [facility] Last Admin: 12/01/21 09:28 Dose: 4 mg Documented by: LIANNA Senna (Sennosides 8.6 Mg Tablet) 17.2 mg PO BEDTIME PRN PRN Reason: Constipation Sertraline HCl (Sertraline Hcl 100 Mg Tablet) 200 mg PO DAILY [facility] Last Admin: 12/01/21 09:28 Dose: 200 mg Documented by: LIANNA Sodium Chloride (0.9 % Sodium Chloride Flush 3 Ml Syringe) 3 ml IVFLUSH QSHIFT ON LICENSE OF [facility] Last Admin: 12/01/21 09:29 Dose: 3 ml Documented by: LIANNA Vitamin D (Cholecalciferol (Vitamin D3) 25 Mcg Tablet) 50 mcg PO DAILY [facility] Last Admin: 12/01/21 09:26 Dose: 50 mcg Documented by: LIANNA Zolpidem Tartrate (Zolpidem Tartrate 5 Mg Tablet) 10 mg PO BEDTIME PRN PRN Reason: Insomnia Labs CBC & Chem 7: 12/01/21 02:15 12/01/21 02:15 Labs: Laboratory Results - last 24 hr 12/01/21 12/01/21 12/01/21 02:15 02:15 02:15 MCV 87.5 MCH 29.3 MCHC 33.5 RDW 14.0 Plt Count 148 L MPV 11.4 Immature Gran % (Auto) 0.4 Neut % (Auto) 73.5 H Lymph % (Auto) 14.1 L [place] % (Auto) 7.7 Eos % (Auto) 4.0 Baso % (Auto) 0.3 Lymph # (Auto) 1.0 L [place] # (Auto) 0.5 Eos # (Auto) 0.3 Baso # (Auto) 0.0 Abs Immat Gran (auto) 0.03 Absolute Neuts (auto) 4.9 Absolute Nucleated RBC 0.000 Nucleated RBC % (auto) 0.0 PT INR VBG pH VBG pCO2 VBG pO2 VBG HCO3 VBG O2 Saturation VBG Base Excess Anion Gap 17 Estim Creat Clear Calc 17.0 Estimated GFR 10 Random Glucose 170 H D Calcium 7.2 L Total Bilirubin 0.4 AST 31 ALT 47 H Alkaline Phosphatase 101 D B-Natriuretic Peptide 353 H Total Protein 7.0 Albumin 3.9 COVID-19 (RIGOBERTO) COVID-SPO 12/01/21 12/01/21 12/01/21 02:15 02:15 02:18 MCV MCH MCHC RDW Plt Count MPV Immature Gran % (Auto) Neut % (Auto) Lymph % (Auto) [place] % (Auto) Eos % (Auto) Baso % (Auto) Lymph # (Auto) [place] # (Auto) Eos # (Auto) Baso # (Auto) Abs Immat Gran (auto) Absolute Neuts (auto) Absolute Nucleated RBC Nucleated RBC % (auto) PT 11.6 INR 1.0 VBG pH 7.44 H VBG pCO2 37 VBG pO2 161 VBG HCO3 26 VBG O2 Saturation 100.0 VBG Base Excess 2.1 Anion Gap Estim Creat Clear Calc Estimated GFR Random Glucose Calcium Total Bilirubin AST ALT Alkaline Phosphatase B-Natriuretic Peptide Total Protein Albumin COVID-19 (RIGOBERTO) Negative COVID-19 [facility] See Note Quality Stroke Does the patient have a stroke diagnosis?: No VTE Prior VTE?: No VTE Risk Level:: Medical - moderate - high VTE Device Contraindication: N/A - Device Ordered VTE Drug Contraindication: Treatment Not Indicated
--- NOTE | 2021-12-01 12:08 | PM.EVENT ---
Event Note Date of Service: 12/01/21 Event Note: Day hospitalist update S: This history was taken in [place] from the patient. Legs swollen. Less short of breath. No chest pain. O: VS- T 97.3, P 64, R 21, BP 174/69, SaO2 99 on RA Gen: in no acute distress HEENT: sclera anicteric, moist mucus membranes Neck: supple Lungs: clear to auscultation bilaterally Heart: regular rate and rhythm, no murmurs Abd: soft, non-tender, non-distended, obese Ext: 2+ pitting BLE edema Skin: warm/well-perfused Neuro: alert and oriented x3, no focal findings Psych: appropriate affect Laboratory Results - last 24 hr 12/01/21 12/01/21 12/01/21 02:15 02:15 02:15 WBC 6.7 RBC 2.97 L Hgb 8.7 L Hct 26.0 L MCV 87.5 MCH 29.3 MCHC 33.5 RDW 14.0 Plt Count 148 L MPV 11.4 Immature Gran % (Auto) 0.4 Neut % (Auto) 73.5 H Lymph % (Auto) 14.[address] [facility] % (Auto) 7.7 Eos % (Auto) 4.0 Baso % (Auto) 0.3 Lymph # (Auto) 1.[address] [facility] # (Auto) 0.5 Eos # (Auto) 0.3 Baso # (Auto) 0.0 Abs Immat Gran (auto) 0.03 Absolute Neuts (auto) 4.9 Absolute Nucleated RBC 0.000 Nucleated RBC % (auto) 0.0 PT INR VBG pH VBG pCO2 VBG pO2 VBG HCO3 VBG O2 Saturation VBG Base Excess Sodium 144 Potassium 3.5 Chloride 105 Carbon Dioxide 26 Anion Gap 17 BUN 80 H D Creatinine 5.88 H* Estim Creat Clear Calc 17.0 Estimated GFR 10 Random Glucose 170 H D Calcium 7.2 L Total Bilirubin 0.4 AST 31 ALT 47 H Alkaline Phosphatase 101 D B-Natriuretic Peptide 353 H Total Protein 7.0 Albumin 3.9 COVID-19 (RIGOBERTO) COVID-19 Clin Com 12/01/21 12/01/21 12/01/21 02:15 02:15 02:18 WBC RBC Hgb Hct MCV MCH MCHC RDW Plt Count MPV Immature Gran % (Auto) Neut % (Auto) Lymph % (Auto) [facility] % (Auto) Eos % (Auto) Baso % (Auto) Lymph # (Auto) [facility] # (Auto) Eos # (Auto) Baso # (Auto) Abs Immat Gran (auto) Absolute Neuts (auto) Absolute Nucleated RBC Nucleated RBC % (auto) PT 11.6 INR 1.0 VBG pH 7.44 H VBG pCO2 37 VBG pO2 161 VBG HCO3 26 VBG O2 Saturation 100.0 VBG Base Excess 2.1 Sodium Potassium Chloride Carbon Dioxide Anion Gap BUN Creatinine Estim Creat Clear Calc Estimated GFR Random Glucose Calcium Total Bilirubin AST ALT Alkaline Phosphatase B-Natriuretic Peptide Total Protein Albumin COVID-19 (RIGOBERTO) Negative COVID-19 Clin Com See Note TTE (08/23/21) - Normal left ventricular size and systolic function. There is ? severely increased left ventricular wall thickness.? The visually estimated ejection fraction is between 65-70%. ? - Normal right ventricular cavity size and systolic function.? ? - The left atrium is moderately dilated. ? - There is mild dilatation of the ascending aorta. ? A/P: hospital d#1 61yo M with HFpEF, HTN, DM2, CKD4, asthma/COPD, BRENDA on CPAP presenting with dyspnea/edema, admitted for CHF exacerbation # acute/chronic HFpEF - continue IV furosemide, Cardiology + Nephrology consultations, may require HD initiation, trend I/O + weight, monitor BNP/BMP/Mg # MARNI/CKD4 - SCr up to 5.9 from 4.9; Nephrology consultation re HD initiation for management of hypervolemia # HTN - resume home regimen: Imdur, carvedilol, hydralazine, nifedipine, doxazosin # PAD - continue ASA, atorvastatin # HLD - continue atorvastatin # asthma/COPD - prn nebs # BRENDA - CPAP at night # DM2 - basal/bolus insulin # neuropathy - continue gabapentin # mood disorder - continue oxcarbazepine, perphenazine, sertraline # VTE ppx - UFH
--- NOTE | 2021-12-01 13:42 | PC.NURSE ---
Renal in to evaluate pt, plan for dialysis tomorrow
--- NOTE | 2021-12-01 13:49 | MHC.CM.PN ---
Addendum entered by Caitlyn Thompson 12/01/21 14:25: PT GOES TO [facility] FOR PRIMARY CARE. REPORTS WAS SEEING KITA YOON CM ATTEMPTED TO CALL THE [facility] ([phone]) TO CONFIRM PT WAS ACTIVE WITH PROVIDER HOWEVER THEY ARE CLOSED UNTIL SATURDAY DUE TO THE WEATHER. 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 COPY REQUESTED IMM DELIVERED, ORIGINAL AT BEDSIDE, COPY SENT TO [facility] CURRENT DC PLAN IS HOME WITH RESUMPTION OF [employer] DAUGHTER TO TRANSPORT
--- NOTE | 2021-12-01 13:51 | PM.EVENT ---
Event Note Date of Service: 12/01/21 Event Note: Pt seen and examined CKD 5 ESRD now Will start Hd in AM He has an AVF Lasix 40 mg x 1 more dose now Thx
[2021-12-01] MEDS: Furosemide 40 MG/4 ML VIAL IVPUSH (14:16)
[2021-12-01 16:55] LABS: Glucose, Whole Blood 114 mg/dL (60-115)
--- NOTE | 2021-12-01 18:24 | CONS_ITS ---
DATE OF SERVICE: REASON FOR CONSULTATION: Consult requested by the medical team to evaluate and help in management of patient with severe renal insufficiency. HISTORY OF PRESENT ILLNESS: The patient is a 61-year-old male with past medical history of longstanding hypertension; history of type 2 diabetes mellitus; history of stage 5 CKD, progressively getting worse, followed by Dr. Ritchie; history of asthma/COPD, who presented to the hospital, complains of shortness of breath and peripheral edema. This has been going on for a week. The shortness of breath is mostly on exertion, but he does have some shortness of breath on rest as well. He apparently has been compliant with his medication regimen. There is no fever or chills. There is no cough, chest pain, or palpitation. In the ER, the patient was noted to have volume overload and was treated with IV Lasix. He was also in some respiratory distress and was treated with BiPAP, which is improved. He has been admitted for further evaluation and management. He denies any indiscretion to increase salt intake or fluid intake. REVIEW OF SYSTEMS: As noted above. Other system review negative. PAST MEDICAL HISTORY: History of stage 5 CKD presently likely ESRD, followed by Dr. Ritchie. Has a left AV fistula, which looks mature and has apparently been placed in July. History of hypertension, type 2 diabetes mellitus, sleep apnea, dyslipidemia, diabetic neuropathy, peptic ulcer disease, history of pancreatitis and rectal dysfunction, depression, anxiety, and asthma. PAST SURGICAL HISTORY: The right inguinal hernia repair and left upper extremity AV fistula placement. MEDICATIONS: As an outpatient include Tylenol, aspirin, atorvastatin, carvedilol, cholecalciferol, doxazosin, gabapentin, hydralazine, Vascepa, insulin, isosorbide, omeprazole, oxcarbazepine, Zoloft, torsemide, tramadol, zolpidem. ALLERGIES: PATIENT HAS NO KNOWN DRUG ALLERGIES. PERSONAL AND SOCIAL HISTORY: Patient was an ex-smoker. FAMILY HISTORY: Negative for kidney disease. PHYSICAL EXAMINATION: GENERAL: Patient is resting in the ER bed, awake, able to follow commands. No significant distress. VITAL SIGNS: Blood pressure was 174/69, pulse 64, afebrile. HEENT: Shows pupils equal bilaterally to light. Positive jugular venous distention is noted. NECK: Supple. CARDIOVASCULAR SYSTEM: S1, S2 without rub. RESPIRATORY SYSTEM: Mildly decreased in bases. Basal crepitation. ABDOMEN: Obese, soft. Bowel sounds normal. EXTREMITIES: Showed 2+ edema bilaterally. There is no peripheral cyanosis or clubbing. NEURO: Essentially nonfocal. LABORATORY DATA: Done today sodium 144, potassium 3.5, chloride 105, CO2 26, BUN 80, creatinine 5.88, estimated GFR 10, glucose 170, calcium 7.2. AST and ALT were close to normal. BNP 353. INR was 1.0, hemoglobin 8.7, hematocrit 26, platelets were 148. IMPRESSION: 1. 61-year-old male with chronic kidney disease, stage 5. It is progressively getting worse and is presently end-stage renal disease. 2. Congestive heart failure, volume overload in the setting of poor renal clearance of solutes and fluid. 3. Type 2 diabetes mellitus. 4. Uncontrolled hypertension due to volume overload. 5. Chronic obstructive pulmonary disease. RECOMMENDATION: At this juncture, I agree with IV diuresis for the patient. He needs to be on a strict 2 g sodium diet and a fluid restriction. Oxygen and nitroglycerin as needed. I will give another dose of IV Lasix today and we will give him another dose of 80 mg. I discussed with the patient in detail and looks like his AV fistula is mature for now. I will arrange for hemodialysis for the patient in the inpatient dialysis unit in a.m. and on Saturday. Next week we need to arrange for outpatient dialysis for this patient. He is to continue with his antihypertensive regimen. In regard to anemia, I will give him a dose of erythropoietin 06204 units subcutaneously. I have ordered hepatitis B profile for this patient to initiate dialysis. Thank you for allowing me to participate in medical management of this patient. MD CARLOS EDUARDO Guevara/ANGEL LUIS / [id number]
[2021-12-01 20:55] LABS: Glucose, Whole Blood 207 mg/dL (60-115)
[2021-12-01] MEDS: Insulin Lispro 100 UNIT/ML 3 ML VIAL SUBCUT (21:31)
[2021-12-01] MEDS: Insulin Glargine,Hum.rec.anlog 100 UNIT/ML 10 ML VIAL 10 UNIT SUBCUT (21:32)
[2021-12-01] MEDS: Atorvastatin Calcium 80 MG TABLET PO (21:32)
[2021-12-01] MEDS: Gabapentin 600 MG TABLET PO (21:32)
[2021-12-01 22:42] LABS: Glucose, Whole Blood 163 mg/dL (60-115)
[2021-12-02] VITALS (7 sets, daily range): BP systolic 134–158; BP diastolic 58–81; PULSE 60–68; RESP 18–22; TEMP 36.6–37.2; O2SAT 93–98
[2021-12-02 06:07] LABS: MANUAL DIFF FLAG NO
[2021-12-02 06:13] LABS: Basophils Percent Auto 0.1 % (0-2); Eosinophils Absolute Auto 0.3 X10*3/uL (0.0-0.4); Eosinophils Percent Auto 3.7 % (0-4); Hematocrit 25.9 % (42.0-52.0); Hemoglobin 8.5 g/dl (14.0-18.0); Imm Gran Abs Auto 0.02 X10*3/uL (0.00-0.03); Imm Gran Pct Auto 0.3 % (0.0-0.4); Lymphocytes Absolute Auto 0.7 X10*3/uL (1.2-4.9); Lymphocytes Percent Auto 10.4 % (20-40); Mean Corpuscular HGB Conc 32.8 g/dl (31.0-36.0); Mean Corpuscular Hemoglobin 28.9 pg (27.0-33.0); Mean Corpuscular Volume 88.1 fL (80.0-98.0); Mean Platelet Volume 11.9 fL (9.4-12.4); Monocytes Absolute Auto 0.5 X10*3/uL (0.1-1.2); Monocytes Percent Auto 6.8 % (2-11); Neutrophils Absolute Auto 5.4 x10*3/uL (2.0-8.3); Neutrophils Percent Auto 78.7 % (45-73); Platelet Count 150 X10*3/uL (160-400); Red Blood Count 2.94 X10*6/uL (4.60-5.80); Red Cell Distribution Width 13.9 % (11.0-16.0); White Blood Count 6.8 X10*3/uL (4.8-10.8)
[2021-12-02 06:32] LABS: B Type Natriuretic Peptide 507 pg/mL (<100)
[2021-12-02 06:40] LABS: Anion Gap 15 (12-20); Blood Urea Nitrogen 76 mg/dL (9-16); Calcium 7.3 mg/dL (8.4-10.2); Carbon Dioxide 28 mmol/L (22-29); Chloride 105 mmol/L (96-108); Creatinine Clr Calc Pharmacy 19.3; Estimated Glomerular Filt Rate 11; Glucose Random 107 mg/dL (60-115); Magnesium 2.3 mg/dL (1.6-2.6); Potassium 3.3 mmol/L (3.3-5.1); Sodium 145 mmol/L (135-145)
[2021-12-02 07:39] LABS: Glucose, Whole Blood 143 mg/dL (60-115)
[2021-12-02] MEDS: MannitoL 12.5 GM/50 ML VIAL IV (10:01)
--- NOTE | 2021-12-02 10:57 | PM.PNCARD ---
Subjective Subjective Date of Service: 12/02/21 Interval history: Feels better. Started dialysis today. Review of Systems Review of Systems Yes all other systems are reviewed and are negative Cardiovascular: Reports as per HPI, Reports no additional cardiovascular complaints, Denies acrocyanosis, Denies cool extremities, Denies painful fingertips, Denies chest pain, Denies chest pain at rest, Denies diaphoresis, Denies syncope, Denies irregular heart rhythm, Denies claudication, Reports leg edema, Denies lightheadedness, Denies palpitations and Reports dyspnea Respiratory: Reports dyspnea Denies syncope Endocrine: Denies palpitations Physical Exam Vital Signs: Last Vital Signs Temp 97.8 F 12/02/21 07:19 Pulse 62 12/02/21 07:19 Resp 20 12/02/21 07:36 BP 142/65 H 12/02/21 07:19 Pulse Ox 97 12/02/21 07:19 Oxygen Flow Rate 21 12/01/21 07:36 BMI result Body Mass Index 38.2 Const General: no acute distress HENSC Other: Unremarkable Neck Neck: Yes normal visual inspection Chest Chest palpation & inspection: normal inspection of the chest Resp Auscultation: crackles Cardio Palpation: normal PMI Heart sounds: S1 normal heart sound present, S2 normal heart sound present, no gallops, no murmurs and no rubs GI Palpation (GI): Soft to palpation Back/Spine/Pelvis Other: unremarkable Skin Lesions: other Neuro Cranial nerves: Yes Other cranial nerve findings present Extrem General: Yes pedal edema (1+) and Yes other Psych Mental Status: other Objective Labs and Meds Result diagrams: 12/02/21 05:51 12/02/21 05:51 Lab results: Laboratory Results - last 24 hr 12/01/21 12/01/21 12/01/21 16:51 20:50 22:37 WBC RBC Hgb Hct MCV MCH MCHC RDW Plt Count MPV Immature Gran % (Auto) Neut % (Auto) Lymph % (Auto) [place] % (Auto) Eos % (Auto) Baso % (Auto) Lymph # (Auto) [place] # (Auto) Eos # (Auto) Baso # (Auto) Abs Immat Gran (auto) Absolute Neuts (auto) Absolute Nucleated RBC Nucleated RBC % (auto) Sodium Potassium Chloride Carbon Dioxide Anion Gap BUN Creatinine Estim Creat Clear Calc Estimated GFR POC Glucose 114 207 H 163 H Random Glucose Calcium Magnesium B-Natriuretic Peptide 12/02/21 12/02/21 12/02/21 05:51 05:51 05:51 WBC 6.8 RBC 2.94 L Hgb 8.5 L Hct 25.9 L MCV 88.1 MCH 28.9 MCHC 32.8 RDW 13.9 Plt Count 150 L MPV 11.9 Immature Gran % (Auto) 0.3 Neut % (Auto) 78.7 H Lymph % (Auto) 10.4 L [place] % (Auto) 6.8 Eos % (Auto) 3.7 Baso % (Auto) 0.1 Lymph # (Auto) 0.7 L [place] # (Auto) 0.5 Eos # (Auto) 0.3 Baso # (Auto) 0.0 Abs Immat Gran (auto) 0.02 Absolute Neuts (auto) 5.4 Absolute Nucleated RBC 0.000 Nucleated RBC % (auto) 0.0 Sodium 145 Potassium 3.3 Chloride 105 Carbon Dioxide 28 Anion Gap 15 BUN 76 H Creatinine 5.39 H* Estim Creat Clear Calc 19.3 Estimated GFR 11 POC Glucose Random Glucose 107 D Calcium 7.3 L Magnesium B-Natriuretic Peptide 507 H 12/02/21 12/02/21 05:51 07:21 WBC RBC Hgb Hct MCV MCH MCHC RDW Plt Count MPV Immature Gran % (Auto) Neut % (Auto) Lymph % (Auto) [place] % (Auto) Eos % (Auto) Baso % (Auto) Lymph # (Auto) [place] # (Auto) Eos # (Auto) Baso # (Auto) Abs Immat Gran (auto) Absolute Neuts (auto) Absolute Nucleated RBC Nucleated RBC % (auto) Sodium Potassium Chloride Carbon Dioxide Anion Gap BUN Creatinine Estim Creat Clear Calc Estimated GFR POC Glucose 143 H Random Glucose Calcium Magnesium 2.3 B-Natriuretic Peptide Progress Note: A&P Assessment and plan (1) Acute on chronic heart failure with preserved ejection fraction (HFpEF): Status: Resolved (2) Hypertensive emergency: Status: Resolved (3) Chronic kidney disease, stage 4 (severe): (4) Diabetes mellitus with hyperglycemia, with long-term current use of insulin: Plan Last echocardiogram from July shows LVEF 65-70% with severe left ventricular hypertrophy. Moderately dilated left atrium. Myocardial perfusion imaging study in the past had shown normal perfusion. Overall, primary issue is uncontrolled hypertension in the context of advanced renal disease. His creatinine is 5.88 (today 5.39) and BUN is 80 (today 76). These are higher than past readings. Current regimen as listed includes carvedilol, hydralazine, Imdur, doxazosin, nifedipine. Diuretics as guided by Nephrology due to advanced renal disease. He has been appropriately initiated on hemodialysis. This should hopefully help his blood pressure as well as congestive heart failure symptoms once fluid is removed. Will follow up with you. Fall Risk Details Current Medications: Current Medications Acetaminophen (Acetaminophen 325 Mg Tablet) 650 mg PO Q6H PRN PRN Reason: Pain, Mild (Pain Scale 1-3) Albuterol/Ipratropium (Albuterol/Iprat 2.5/0.5mg 3 Ml Ampul.Neb) 3 ml INHALE RQ4H PRN PRN Reason: shortness of breath/wheeze Last Admin: 12/01/21 10:11 Dose: 3 ml Documented by: Aspirin (Aspirin Enteric Coated 81 Mg Tablet.) 81 mg PO DAILY [facility] Last Admin: 12/01/21 09:27 Dose: 81 mg Documented by: Atorvastatin Calcium (Atorvastatin Calcium 80 Mg Tablet) 80 mg PO BEDTIME [facility] Last Admin: 12/01/21 21:32 Dose: 80 mg Documented by: Carvedilol (Carvedilol 25 Mg Tablet) 25 mg PO BID [facility]; Protocol Last Admin: 12/01/21 21:32 Dose: 25 mg Documented by: Dextrose (Dextrose 50 % 25 Gm/50 Ml Syringe) 25 gm IVPUSH Q15M PRN; Protocol PRN Reason: per Hypoglycemia Standing Ord. Doxazosin Mesylate (Doxazosin Mesylate 2 Mg Tablet) 2 mg PO DAILY [facility]; Protocol Last Admin: 12/01/21 09:27 Dose: 2 mg Documented by: Furosemide (Furosemide 40 Mg/4 Ml Vial) 80 mg IVPUSH DAILY [facility]; Protocol Gabapentin (Gabapentin 600 Mg Tablet) 600 mg PO BEDTIME [facility] Last Admin: 12/01/21 21:32 Dose: 600 mg Documented by: Glucose (Glucose Gel 15 Gm Gel..Gram.) 15 gm PO Q15M PRN; Protocol PRN Reason: per Hypoglycemia Standing Ord. Heparin Sodium (Porcine) (Heparin Sodium,Porcine 5,000 Unit/Ml Vial) 5,000 unit SUBCUT Q8H [facility] Hydralazine HCl (Hydralazine Hcl 50 Mg Tablet) 50 mg PO TID [facility]; Protocol Last Admin: 12/01/21 21:32 Dose: 50 mg Documented by: Insulin Glargine (Insulin Glargine,Hum.Rec.Anlog 100 Unit/Ml 10 Ml Vial) 10 unit SUBCUT BEDTIME [facility] Last Admin: 12/01/21 21:32 Dose: 10 unit Documented by: Insulin Human Lispro (Insulin Lispro 100 Unit/Ml 3 Ml Vial) 0 unit SUBCUT QIDACHS [facility]; Protocol Last Admin: 12/02/21 08:13 Dose: Not Given Documented by: Isosorbide Mononitrate (Isosorbide Mononitrate 60 Mg Tab.Er.24h) 120 mg PO DAILY [facility]; Protocol Last Admin: 12/01/21 09:28 Dose: 120 mg Documented by: Melatonin (Melatonin 3 Mg Tablet) 6 mg PO BEDTIME PRN PRN Reason: Insomnia Nitroglycerin (Nitroglycerin 0.4 Mg Tab.Subl) 0.4 mg SUBLINGUAL Q5MX3 PRN PRN Reason: Chest Pain Non-Formulary Medication (Icosapent Ethyl [Vascepa]) 2 cap PO BID [facility] Non-Formulary Medication (Nifedipine) 4 tab PO BEDTIME [facility] Last Admin: 12/01/21 21:33 Dose: Not Given Documented by: Omeprazole (Omeprazole 40 Mg Capsule.Dr) 40 mg PO DAILY [facility] Last Admin: 12/01/21 09:26 Dose: 40 mg Documented by: Oxcarbazepine (Oxcarbazepine 300 Mg Tablet) 300 mg PO BID [facility] Last Admin: 12/01/21 21:32 Dose: 300 mg Documented by: Perphenazine (Perphenazine 2 Mg Tablet) 2 mg PO BID [facility] Last Admin: 12/01/21 21:32 Dose: 2 mg Documented by: Perphenazine (Perphenazine 4 Mg Tablet) 4 mg PO BID [facility] Last Admin: 12/01/21 21:32 Dose: 4 mg Documented by: Senna (Sennosides 8.6 Mg Tablet) 17.2 mg PO BEDTIME PRN PRN Reason: Constipation Sertraline HCl (Sertraline Hcl 100 Mg Tablet) 200 mg PO DAILY [facility] Last Admin: 12/01/21 09:28 Dose: 200 mg Documented by: Sodium Chloride (0.9 % Sodium Chloride Flush 3 Ml Syringe) 3 ml IVFLUSH QSHIFT [facility] Last Admin: 12/01/21 22:43 Dose: 3 ml Documented by: Vitamin D (Cholecalciferol (Vitamin D3) 25 Mcg Tablet) 50 mcg PO DAILY [facility] Last Admin: 12/01/21 09:26 Dose: 50 mcg Documented by: Zolpidem Tartrate (Zolpidem Tartrate 5 Mg Tablet) 10 mg PO BEDTIME PRN PRN Reason: Insomnia Time Spent With Patient Time: Total time spent is greater than 50% in coordination of care (as documented) at patient's floor/unit and/or counseling patient: Time with patient: less than 15 minutes Progress Note: Quality Stroke Does the patient have a stroke diagnosis?: No Procedures Date of Service Date of Service: 12/02/21
--- NOTE | 2021-12-02 11:03 | P.PNIM_ITS ---
Subjective Subjective Date of Service: 12/02/21 Interval History: This history was taken in Vietnamese from the patient. Ongoing dyspnea + leg edema. Starting HD today. No chest pain. Review of Systems Review of Systems: Yes all other systems are reviewed and are negative Physical Exam Verdana 4l Vital Signs: Verdana 4d Verdana 4d Vital Signs: Verdana 4d Verdana 4Bd Last Vital Signs Verdana 4d [employer] Analyst New 4d [employer] And [employer] Analyst New 4d Temp 97.8 F 12/02/21 07:19 Compensation And Hris Analyst New 4d Pulse 62 12/02/21 07:19 Compensation And Hris Analyst New 4d Resp 20 12/02/21 07:36 BP 142/65 H 12/02/21 07:19 Pulse Ox 97 12/02/21 07:19 Oxygen Flow Rate 21 12/01/21 07:36 BMI result Body Mass Index 38.2 Gen: in no acute distress HEENT: sclera anicteric, moist mucus membranes Neck: supple Lungs: clear to auscultation bilaterally Heart: regular rate and rhythm, no murmurs Abd: soft, non-tender, non-distended, obese Ext: 2+ pitting BLE edema Skin: warm/well-perfused Neuro: alert and oriented x3, no focal findings Psych: appropriate affect Objective Data Active Medications Acetaminophen (Acetaminophen 325 Mg Tablet) 650 mg PO Q6H PRN PRN Reason: Pain, Mild (Pain Scale 1-3) Albuterol/Ipratropium (Albuterol/Iprat 2.5/0.5mg 3 Ml Ampul.Neb) 3 ml INHALE RQ4H PRN PRN Reason: shortness of breath/wheeze Last Admin: 12/01/21 10:11 Dose: 3 ml Documented by: HENRY Aspirin (Aspirin Enteric Coated 81 Mg Tablet.) 81 mg PO DAILY [facility] Last Admin: 12/01/21 09:27 Dose: 81 mg Documented by: LIANNA Atorvastatin Calcium (Atorvastatin Calcium 80 Mg Tablet) 80 mg PO BEDTIME [facility] Last Admin: 12/01/21 21:32 Dose: 80 mg Documented by: IRMA Carvedilol (Carvedilol 25 Mg Tablet) 25 mg PO BID [facility]; Protocol Last Admin: 12/01/21 21:32 Dose: 25 mg Documented by: IRMA Dextrose (Dextrose 50 % 25 Gm/50 Ml Syringe) 25 gm IVPUSH Q15M PRN; Protocol PRN Reason: per Hypoglycemia Standing Ord. Doxazosin Mesylate (Doxazosin Mesylate 2 Mg Tablet) 2 mg PO DAILY [facility]; Protocol Last Admin: 12/01/21 09:27 Dose: 2 mg Documented by: LIANNA Furosemide (Furosemide 40 Mg/4 Ml Vial) 80 mg IVPUSH DAILY [facility]; Protocol Gabapentin (Gabapentin 600 Mg Tablet) 600 mg PO BEDTIME [facility] Last Admin: 12/01/21 21:32 Dose: 600 mg Documented by: IRMA Glucose (Glucose Gel 15 Gm Gel..Gram.) 15 gm PO Q15M PRN; Protocol PRN Reason: per Hypoglycemia Standing Ord. Heparin Sodium (Porcine) (Heparin Sodium,Porcine 5,000 Unit/Ml Vial) 5,000 unit SUBCUT Q8H [facility] Hydralazine HCl (Hydralazine Hcl 50 Mg Tablet) 50 mg PO TID [facility]; Protocol Last Admin: 12/01/21 21:32 Dose: 50 mg Documented by: IRMA Insulin Glargine (Insulin Glargine,Hum.Rec.Anlog 100 Unit/Ml 10 Ml Vial) 10 unit SUBCUT BEDTIME [facility] Last Admin: 12/01/21 21:32 Dose: 10 unit Documented by: IRMA Insulin Human Lispro (Insulin Lispro 100 Unit/Ml 3 Ml Vial) 0 unit SUBCUT QIDACHS [facility]; Protocol Last Admin: 12/02/21 08:13 Dose: Not Given Documented by: AARON Non-Admin Reason: No Insulin Coverage Isosorbide Mononitrate (Isosorbide Mononitrate 60 Mg Tab.Er.24h) 120 mg PO DAILY [facility]; Protocol Last Admin: 12/01/21 09:28 Dose: 120 mg Documented by: LIANNA Melatonin (Melatonin 3 Mg Tablet) 6 mg PO BEDTIME PRN PRN Reason: Insomnia Nitroglycerin (Nitroglycerin 0.4 Mg Tab.Subl) 0.4 mg SUBLINGUAL Q5MX3 PRN PRN Reason: Chest Pain Non-Formulary Medication (Icosapent Ethyl [Vascepa]) 2 cap PO BID [facility] Non-Formulary Medication (Nifedipine) 4 tab PO BEDTIME [facility] Last Admin: 12/01/21 21:33 Dose: Not Given Documented by: IRMA Non-Admin Reason: Med Not Available Omeprazole (Omeprazole 40 Mg Capsule.Dr) 40 mg PO DAILY [facility] Last Admin: 12/01/21 09:26 Dose: 40 mg Documented by: LIANNA Oxcarbazepine (Oxcarbazepine 300 Mg Tablet) 300 mg PO BID [facility] Last Admin: 12/01/21 21:32 Dose: 300 mg Documented by: IRMA Perphenazine (Perphenazine 2 Mg Tablet) 2 mg PO BID [facility] Last Admin: 12/01/21 21:32 Dose: 2 mg Documented by: IRMA Perphenazine (Perphenazine 4 Mg Tablet) 4 mg PO BID [facility] Last Admin: 12/01/21 21:32 Dose: 4 mg Documented by: IRMA Senna (Sennosides 8.6 Mg Tablet) 17.2 mg PO BEDTIME PRN PRN Reason: Constipation Sertraline HCl (Sertraline Hcl 100 Mg Tablet) 200 mg PO DAILY [facility] Last Admin: 12/01/21 09:28 Dose: 200 mg Documented by: LIANNA Sodium Chloride (0.9 % Sodium Chloride Flush 3 Ml Syringe) 3 ml IVFLUSH QSHIFT [facility] Last Admin: 12/01/21 22:43 Dose: 3 ml Documented by: MAURIZIO Vitamin D (Cholecalciferol (Vitamin D3) 25 Mcg Tablet) 50 mcg PO DAILY [facility] Last Admin: 12/01/21 09:26 Dose: 50 mcg Documented by: LIANNA Zolpidem Tartrate (Zolpidem Tartrate 5 Mg Tablet) 10 mg PO BEDTIME PRN PRN Reason: Insomnia Labs CBC & Chem 7: 12/02/21 05:51 12/02/21 05:51 Labs: Laboratory Results - last 24 hr 12/01/21 12/01/21 12/01/21 16:51 20:50 22:37 MCV MCH MCHC RDW Plt Count MPV Immature Gran % (Auto) Neut % (Auto) Lymph % (Auto) [place] % (Auto) Eos % (Auto) Baso % (Auto) Lymph # (Auto) [place] # (Auto) Eos # (Auto) Baso # (Auto) Abs Immat Gran (auto) Absolute Neuts (auto) Absolute Nucleated RBC Nucleated RBC % (auto) Anion Gap Estim Creat Clear Calc Estimated GFR POC Glucose 114 207 H 163 H Random Glucose Calcium Magnesium B-Natriuretic Peptide 12/02/21 12/02/21 12/02/21 05:51 05:51 05:51 MCV 88.1 MCH 28.9 MCHC 32.8 RDW 13.9 Plt Count 150 L MPV 11.9 Immature Gran % (Auto) 0.3 Neut % (Auto) 78.7 H Lymph % (Auto) 10.4 L [place] % (Auto) 6.8 Eos % (Auto) 3.7 Baso % (Auto) 0.1 Lymph # (Auto) 0.7 L [place] # (Auto) 0.5 Eos # (Auto) 0.3 Baso # (Auto) 0.0 Abs Immat Gran (auto) 0.02 Absolute Neuts (auto) 5.4 Absolute Nucleated RBC 0.000 Nucleated RBC % (auto) 0.0 Anion Gap 15 Estim Creat Clear Calc 19.3 Estimated GFR 11 POC Glucose Random Glucose 107 D Calcium 7.3 L Magnesium B-Natriuretic Peptide 507 H 12/02/21 12/02/21 05:51 07:21 MCV MCH MCHC RDW Plt Count MPV Immature Gran % (Auto) Neut % (Auto) Lymph % (Auto) [place] % (Auto) Eos % (Auto) Baso % (Auto) Lymph # (Auto) [place] # (Auto) Eos # (Auto) Baso # (Auto) Abs Immat Gran (auto) Absolute Neuts (auto) Absolute Nucleated RBC Nucleated RBC % (auto) Anion Gap Estim Creat Clear Calc Estimated GFR POC Glucose 143 H Random Glucose Calcium Magnesium 2.3 B-Natriuretic Peptide Assessment and Plan (1) CHF exacerbation: Status: Acute Plan hospital d#2 61yo M with HFpEF, HTN, DM2, CKD4-5, asthma/COPD, BRENDA on CPAP presenting with d yspnea/edema, admitted for CHF exacerbation # acute/chronic HFpEF - given IV furosemide, HD started today, Cardiology + Nephrology following - negative 2.6L thus far # ESRD - HD initiated - HBV serology pending # anemia of ESRD - epo per Nephrology # HTN - resumed home regimen of Imdur, carvedilol, hydralazine, nifedipine, and doxazosin # PAD - continue ASA, atorvastatin # HLD - continue atorvastatin # asthma/COPD - prn nebs # BRENDA - CPAP at night # DM2 - basal/bolus insulin # neuropathy - continue gabapentin # mood disorder - continue oxcarbazepine, perphenazine, sertraline # VTE ppx - UFH # dispo - needs outpt HD placement Quality Stroke Does the patient have a stroke diagnosis?: No VTE Prior VTE?: No VTE Risk Level:: Medical - moderate - high VTE Device Contraindication: N/A - Device Ordered VTE Drug Contraindication: Treatment Not Indicated
[2021-12-02 11:41] LABS: Glucose, Whole Blood 113 mg/dL (60-115)
[2021-12-02] MEDS: Furosemide 40 MG/4 ML VIAL 80 MG IVPUSH (11:58)
[2021-12-02] MEDS: Cholecalciferol (Vitamin D3) 25 MCG TABLET 50 MCG PO (11:59)
[2021-12-02] MEDS: Heparin Sodium,Porcine 5,000 UNIT/ML VIAL 5000 UNIT SUBCUT ×3 (11:59→23:59)
[2021-12-02] MEDS: Isosorbide Mononitrate 60 MG TAB.ER.24H 120 MG PO (11:59)
[2021-12-02] MEDS: Doxazosin Mesylate 2 MG TABLET PO (11:59)
[2021-12-02] MEDS: carvediloL 25 MG TABLET PO ×2 (11:59→20:56)
[2021-12-02] MEDS: Perphenazine 4 MG TABLET PO ×2 (12:00→20:57)
[2021-12-02] MEDS: Aspirin Enteric Coated 81 MG TABLET.DR PO (12:00)
[2021-12-02] MEDS: OXcarbazepine 300 MG TABLET PO ×2 (12:00→20:57)
[2021-12-02] MEDS: 0.9 % Sodium Chloride Flush 3 ML SYRINGE IVFLUSH ×3 (12:00→20:58)
[2021-12-02] MEDS: Omeprazole 40 MG CAPSULE.DR PO (12:00)
[2021-12-02] MEDS: Perphenazine 2 MG TABLET PO ×2 (12:00→20:57)
[2021-12-02] MEDS: Sertraline HCL 100 MG TABLET 200 MG PO (12:00)
--- NOTE | 2021-12-02 14:56 | P.PNNP_ITS ---
Subjective Subjective Date of Service: 12/02/21 Interval history: Ongoing dyspnea + leg edema. On HD today. No chest pain. Physical Exam Verdana 4l Vital Signs: Verdana 4d Verdana 4d Vital Signs: Verdana 4d Verdana 4Bd Last Vital Signs Verdana 4d Kitchen Work Supervisor New 4d Kitchen Work Supervisor New 4d Temp 98.1 F 12/02/21 11:34 Kitchen Work Supervisor New 4d Pulse 60 12/02/21 11:34 Kitchen Work Supervisor New 4d Resp 18 12/02/21 11:34 BP 134/74 12/02/21 11:34 Pulse Ox 98 12/02/21 11:34 Oxygen Flow Rate 21 12/01/21 07:36 BMI result Body Mass Index 38.2 Gen: in no acute distress HEENT: sclera anicteric, moist mucus membranes Neck: supple Lungs: clear to auscultation bilaterally Heart: regular rate and rhythm, no murmurs Abd: soft, non-tender, non-distended, obese Ext: 2+ pitting BLE edema Skin: warm/well-perfused Neuro: alert and oriented x3, no focal findings Psych: appropriate affect Objective Data Labs CBC & Chem 7: 12/02/21 05:51 12/02/21 05:51 Labs: Laboratory Results - last 24 hr 12/01/21 12/01/21 12/01/21 16:51 20:50 22:37 WBC RBC Hgb Hct MCV MCH MCHC RDW Plt Count MPV Immature Gran % (Auto) Neut % (Auto) Lymph % (Auto) [place] % (Auto) Eos % (Auto) Baso % (Auto) Lymph # (Auto) [place] # (Auto) Eos # (Auto) Baso # (Auto) Abs Immat Gran (auto) Absolute Neuts (auto) Absolute Nucleated RBC Nucleated RBC % (auto) Sodium Potassium Chloride Carbon Dioxide Anion Gap BUN Creatinine Estim Creat Clear Calc Estimated GFR POC Glucose 114 207 H 163 H Random Glucose Calcium Magnesium B-Natriuretic Peptide 12/02/21 12/02/21 12/02/21 05:51 05:51 05:51 WBC 6.8 RBC 2.94 L Hgb 8.5 L Hct 25.9 L MCV 88.1 MCH 28.9 MCHC 32.8 RDW 13.9 Plt Count 150 L MPV 11.9 Immature Gran % (Auto) 0.3 Neut % (Auto) 78.7 H Lymph % (Auto) 10.4 L [place] % (Auto) 6.8 Eos % (Auto) 3.7 Baso % (Auto) 0.1 Lymph # (Auto) 0.7 L [place] # (Auto) 0.5 Eos # (Auto) 0.3 Baso # (Auto) 0.0 Abs Immat Gran (auto) 0.02 Absolute Neuts (auto) 5.4 Absolute Nucleated RBC 0.000 Nucleated RBC % (auto) 0.0 Sodium 145 Potassium 3.3 Chloride 105 Carbon Dioxide 28 Anion Gap 15 BUN 76 H Creatinine 5.39 H* Estim Creat Clear Calc 19.3 Estimated GFR 11 POC Glucose Random Glucose 107 D Calcium 7.3 L Magnesium B-Natriuretic Peptide 507 H 12/02/21 12/02/21 12/02/21 05:51 07:21 11:33 WBC RBC Hgb Hct MCV MCH MCHC RDW Plt Count MPV Immature Gran % (Auto) Neut % (Auto) Lymph % (Auto) [place] % (Auto) Eos % (Auto) Baso % (Auto) Lymph # (Auto) [place] # (Auto) Eos # (Auto) Baso # (Auto) Abs Immat Gran (auto) Absolute Neuts (auto) Absolute Nucleated RBC Nucleated RBC % (auto) Sodium Potassium Chloride Carbon Dioxide Anion Gap BUN Creatinine Estim Creat Clear Calc Estimated GFR POC Glucose 143 H 113 Random Glucose Calcium Magnesium 2.3 B-Natriuretic Peptide Procedures Date of Service Date of Service: 12/02/21 Assessment & Plan Assessment and plan (1) ESRD (end stage renal disease) on dialysis: Status: Acute (2) CHF exacerbation: Status: Acute Plan [address] [id number] Consultation Signed Patient: Jose D Dickens ? IMPRESSION:? 1. 61-year-old male with chronic kidney disease, stage 5.? It is progressively getting worse and is presently end-stage renal disease. 2. Congestive heart failure, volume overload in the setting of poor renal clearance of solutes and fluid. 3. Type 2 diabetes mellitus. 4. Uncontrolled hypertension due to volume overload. 5. Chronic obstructive pulmonary disease. ? RECOMMENDATION:? Continue HD today HD again on in AM and Saturday We used 3 K bath \ needs to be on a strict 2 g sodium diet and a fluid restriction.? Oxygen and nitroglycerin as needed. ?We are using th AVF Out pt HD needs to be arranged on Saturday Keep Pt inhouse Changed antihypertensive regimen- D/C Hydralazine - Started on Losartan 50 mg daily ? In regard to anemia he haa a dose of erythropoietin 90956 units subcutaneously on Saturday ? ? Thank you for allowing me to participate in medical management of this patient. Time Spent With Patient Time: Total time spent is greater than 50% in coordination of care (as documented) at patient's floor/unit and/or counseling patient: Progress Note: Quality Stroke Does the patient have a stroke diagnosis?: No
[2021-12-02] MEDS: Losartan Potassium 50 MG TABLET PO (16:39)
[2021-12-02 16:53] LABS: Glucose, Whole Blood 132 mg/dL (60-115)
[2021-12-02 20:27] LABS: Glucose, Whole Blood 138 mg/dL (60-115)
[2021-12-02] MEDS: Atorvastatin Calcium 80 MG TABLET PO (20:56)
[2021-12-02] MEDS: Gabapentin 600 MG TABLET PO (20:57)
[2021-12-02] MEDS: Insulin Glargine,Hum.rec.anlog 100 UNIT/ML 10 ML VIAL 10 UNIT SUBCUT (20:57)
[2021-12-02] MEDS: NIFEdipine ER 30 MG TAB.ER.24 120 MG PO (22:09)
[2021-12-03] VITALS (10 sets, daily range): BP systolic 145–189; BP diastolic 62–79; PULSE 55–78; RESP 18–20; TEMP 36.4–37.2; O2SAT 94–98
[2021-12-03 07:22] LABS: Glucose, Whole Blood 118 mg/dL (60-115)
[2021-12-03 07:54] LABS: B Type Natriuretic Peptide 470 pg/mL (<100)
[2021-12-03] MEDS: OXcarbazepine 300 MG TABLET PO ×2 (08:22→20:50)
[2021-12-03] MEDS: Doxazosin Mesylate 2 MG TABLET PO (08:22)
[2021-12-03] MEDS: Isosorbide Mononitrate 60 MG TAB.ER.24H 120 MG PO (08:22)
[2021-12-03] MEDS: Perphenazine 2 MG TABLET PO ×2 (08:22→20:50)
[2021-12-03] MEDS: Omeprazole 40 MG CAPSULE.DR PO (08:22)
[2021-12-03] MEDS: Cholecalciferol (Vitamin D3) 25 MCG TABLET 50 MCG PO (08:22)
[2021-12-03] MEDS: Losartan Potassium 50 MG TABLET PO (08:22)
[2021-12-03] MEDS: Furosemide 40 MG/4 ML VIAL 80 MG IVPUSH (08:22)
[2021-12-03] MEDS: carvediloL 25 MG TABLET PO ×2 (08:22→20:50)
[2021-12-03] MEDS: Perphenazine 4 MG TABLET PO ×2 (08:22→20:50)
[2021-12-03] MEDS: Aspirin Enteric Coated 81 MG TABLET.DR PO (08:22)
[2021-12-03] MEDS: Sertraline HCL 100 MG TABLET 200 MG PO (08:22)
[2021-12-03] MEDS: Heparin Sodium,Porcine 5,000 UNIT/ML VIAL 5000 UNIT SUBCUT ×2 (08:23→17:22)
[2021-12-03] MEDS: 0.9 % Sodium Chloride Flush 3 ML SYRINGE IVFLUSH ×3 (08:23→20:50)
[2021-12-03 08:27] LABS: Anion Gap 14 (12-20); Blood Urea Nitrogen 64 mg/dL (9-16); Calcium 7.9 mg/dL (8.4-10.2); Carbon Dioxide 26 mmol/L (22-29); Chloride 106 mmol/L (96-108); Estimated Glomerular Filt Rate 12; Glucose Random 125 mg/dL (60-115); Magnesium 2.2 mg/dL (1.6-2.6); Potassium 3.6 mmol/L (3.3-5.1); Sodium 142 mmol/L (135-145)
[2021-12-03] MEDS: MannitoL 12.5 GM/50 ML VIAL IV (09:33)
--- NOTE | 2021-12-03 10:34 | P.PNIM_ITS ---
Subjective Subjective Date of Service: 12/03/21 Interval History: Swelling + dyspnea improving HD initiation d#2 No chest pain Review of Systems Review of Systems: Yes all other systems are reviewed and are negative Physical Exam Verdana 4l Vital Signs: Verdana 4d Verdana 4d Vital Signs: Verdana 4d Verdana 4Bd Last Vital Signs Verdana 4d Retail Sales Representative New 4d Retail Sales Representative New 4d Temp 97.5 F 12/03/21 07:49 Retail Sales Representative New 4d Pulse 68 12/03/21 08:40 Retail Sales Representative New 4d Resp 18 12/03/21 07:51 BP 167/72 H 12/03/21 07:49 Pulse Ox 98 12/03/21 07:49 Oxygen Flow Rate 21 12/01/21 07:36 BMI result Body Mass Index 38.2 Gen: in no acute distress HEENT: sclera anicteric, moist mucus membranes Neck: supple Lungs: clear to auscultation bilaterally Heart: regular rate and rhythm, no murmurs Abd: soft, non-tender, non-distended, obese Ext: 1+ pitting BLE edema Skin: warm/well-perfused Neuro: alert and oriented x3, no focal findings Psych: appropriate affect Objective Data Active Medications Acetaminophen (Acetaminophen 325 Mg Tablet) 650 mg PO Q6H PRN PRN Reason: Pain, Mild (Pain Scale 1-3) Albuterol/Ipratropium (Albuterol/Iprat 2.5/0.5mg 3 Ml Ampul.Neb) 3 ml INHALE RQ4H PRN PRN Reason: shortness of breath/wheeze Last Admin: 12/01/21 10:11 Dose: 3 ml Documented by: HENRY Aspirin (Aspirin Enteric Coated 81 Mg Tablet.) 81 mg PO DAILY [facility] Last Admin: 12/03/21 08:22 Dose: 81 mg Documented by: AARON Atorvastatin Calcium (Atorvastatin Calcium 80 Mg Tablet) 80 mg PO BEDTIME [facility] Last Admin: 12/02/21 20:56 Dose: 80 mg Documented by: MAURIZIO Carvedilol (Carvedilol 25 Mg Tablet) 25 mg PO BID [facility]; Protocol Last Admin: 12/03/21 08:22 Dose: 25 mg Documented by: AARON Dextrose (Dextrose 50 % 25 Gm/50 Ml Syringe) 25 gm IVPUSH Q15M PRN; Protocol PRN Reason: per Hypoglycemia Standing Ord. Doxazosin Mesylate (Doxazosin Mesylate 2 Mg Tablet) 2 mg PO DAILY [facility]; Protocol Last Admin: 12/03/21 08:22 Dose: 2 mg Documented by: AARON Furosemide (Furosemide 40 Mg/4 Ml Vial) 80 mg IVPUSH DAILY [facility]; Protocol Last Admin: 12/03/21 08:22 Dose: 80 mg Documented by: AARON Gabapentin (Gabapentin 600 Mg Tablet) 600 mg PO BEDTIME [facility] Last Admin: 12/02/21 20:57 Dose: 600 mg Documented by: MAURIZIO Glucose (Glucose Gel 15 Gm Gel..Gram.) 15 gm PO Q15M PRN; Protocol PRN Reason: per Hypoglycemia Standing Ord. Heparin Sodium (Porcine) (Heparin Sodium,Porcine 5,000 Unit/Ml Vial) 5,000 unit SUBCUT Q8H [facility] Last Admin: 12/03/21 08:23 Dose: 5,000 unit Documented by: AARON Insulin Glargine (Insulin Glargine,Hum.Rec.Anlog 100 Unit/Ml 10 Ml Vial) 10 unit SUBCUT BEDTIME [facility] Last Admin: 12/02/21 20:57 Dose: 10 unit Documented by: MAURIZIO Insulin Human Lispro (Insulin Lispro 100 Unit/Ml 3 Ml Vial) 0 unit SUBCUT QIDACHS [facility]; Protocol Last Admin: 12/03/21 07:33 Dose: Not Given Documented by: AARON Non-Admin Reason: No Insulin Coverage Isosorbide Mononitrate (Isosorbide Mononitrate 60 Mg Tab.Er.24h) 120 mg PO DAILY [facility]; Protocol Last Admin: 12/03/21 08:22 Dose: 120 mg Documented by: AARNO Losartan Potassium (Losartan Potassium 50 Mg Tablet) 50 mg PO DAILY [facility]; Protocol Last Admin: 12/03/21 08:22 Dose: 50 mg Documented by: AARON Melatonin (Melatonin 3 Mg Tablet) 6 mg PO BEDTIME PRN PRN Reason: Insomnia Nifedipine (Nifedipine Er 30 Mg Tab.Er.24) 120 mg PO BEDTIME [facility] Last Admin: 12/02/21 22:09 Dose: 120 mg Documented by: MAURIZIO Nitroglycerin (Nitroglycerin 0.4 Mg Tab.Subl) 0.4 mg SUBLINGUAL Q5MX3 PRN PRN Reason: Chest Pain Non-Formulary Medication (Icosapent Ethyl [Vascepa]) 2 cap PO BID [facility] Omeprazole (Omeprazole 40 Mg Capsule.Dr) 40 mg PO DAILY [facility] Last Admin: 12/03/21 08:22 Dose: 40 mg Documented by: AARON Oxcarbazepine (Oxcarbazepine 300 Mg Tablet) 300 mg PO BID [facility] Last Admin: 12/03/21 08:22 Dose: 300 mg Documented by: AARON Perphenazine (Perphenazine 2 Mg Tablet) 2 mg PO BID [facility] Last Admin: 12/03/21 08:22 Dose: 2 mg Documented by: AARON Perphenazine (Perphenazine 4 Mg Tablet) 4 mg PO BID [facility] Last Admin: 12/03/21 08:22 Dose: 4 mg Documented by: AARON Senna (Sennosides 8.6 Mg Tablet) 17.2 mg PO BEDTIME PRN PRN Reason: Constipation Sertraline HCl (Sertraline Hcl 100 Mg Tablet) 200 mg PO DAILY [facility] Last Admin: 12/03/21 08:22 Dose: 200 mg Documented by: AARON Sodium Chloride (0.9 % Sodium Chloride Flush 3 Ml Syringe) 3 ml IVFLUSH QSHIFT [facility] Last Admin: 12/03/21 08:23 Dose: 3 ml Documented by: AARON Vitamin D (Cholecalciferol (Vitamin D3) 25 Mcg Tablet) 50 mcg PO DAILY [facility] Last Admin: 12/03/21 08:22 Dose: 50 mcg Documented by: AARON Zolpidem Tartrate (Zolpidem Tartrate 5 Mg Tablet) 10 mg PO BEDTIME PRN PRN Reason: Insomnia Labs CBC & Chem 7: 12/02/21 05:51 12/03/21 06:57 Labs: Laboratory Results - last 24 hr 12/02/21 12/02/21 12/02/21 11:33 16:30 20:20 Anion Gap Estim Creat Clear Calc Estimated GFR POC Glucose 113 132 H 138 H Random Glucose Calcium Magnesium B-Natriuretic Peptide 12/03/21 12/03/21 12/03/21 06:57 06:57 07:16 Anion Gap 14 Estim Creat Clear Calc 21.0 Estimated GFR 12 POC Glucose 118 H Random Glucose 125 H Calcium 7.9 L D Magnesium 2.2 B-Natriuretic Peptide 470 H Assessment and Plan (1) CHF exacerbation: Status: Acute Plan hospital d#3 61yo M with HFpEF, HTN, DM2, CKD4-5, asthma/COPD, BRENDA on CPAP presenting with dyspnea/edema, admitted for CHF exacerbation # acute/chronic HFpEF - given IV furosemide, HD started today, Cardiology + Nephrology following # ESRD - HD initiated - HBV serology pending # anemia of ESRD - epo per Nephrology # HTN - continue Imdur, carvedilol, nifedipine, and doxazosin # PAD - continue ASA, atorvastatin # HLD - continue atorvastatin # asthma/COPD - prn nebs # BRENDA - CPAP at night # DM2 - basal/bolus insulin # neuropathy - continue gabapentin # mood disorder - continue oxcarbazepine, perphenazine, sertraline # VTE ppx - UFH # dispo - needs outpt HD placement Quality Stroke Does the patient have a stroke diagnosis?: No VTE Prior VTE?: No VTE Risk Level:: Medical - moderate - high VTE Device Contraindication: N/A - Device Ordered VTE Drug Contraindication: Treatment Not Indicated
[2021-12-03 12:44] LABS: Glucose, Whole Blood 135 mg/dL (60-115)
--- NOTE | 2021-12-03 13:04 | P.PNNP_ITS ---
Subjective Subjective Date of Service: 12/03/21 Interval history: Swelling + dyspnea improving HD day 3/ Seen on HD No chest pain Physical Exam Verdana 4l Vital Signs: Verdana 4d Verdana 4d Vital Signs: Verdana 4d Verdana 4Bd Last Vital Signs Verdana 4d Cloud Solutions Architect New 4d Cloud Solutions Architect New 4d Temp 98.7 F 12/03/21 12:00 Cloud Solutions Architect New 4d Pulse 62 12/03/21 12:00 Cloud Solutions Architect New 4d Resp 18 12/03/21 12:00 BP 145/62 H 12/03/21 12:00 Pulse Ox 96 12/03/21 12:00 Oxygen Flow Rate 21 12/01/21 07:36 BMI result Body Mass Index 38.2 Gen: in no acute distress HEENT: sclera anicteric, moist mucus membranes Neck: supple Lungs: clear to auscultation bilaterally Heart: regular rate and rhythm, no murmurs Abd: soft, non-tender, non-distended, obese Ext: 1+ pitting BLE edema Skin: warm/well-perfused Neuro: alert and oriented x3, no focal findings Psych: appropriate affect Objective Data Labs CBC & Chem 7: 12/02/21 05:51 12/03/21 06:57 Labs: Laboratory Results - last 24 hr 12/02/21 12/02/21 12/03/21 16:30 20:20 06:57 Sodium 142 Potassium 3.6 Chloride 106 Carbon Dioxide 26 Anion Gap 14 BUN 64 H Creatinine 4.95 H* Estim Creat Clear Calc 21.0 Estimated GFR 12 POC Glucose 132 H 138 H Random Glucose 125 H Calcium 7.9 L D Magnesium 2.2 B-Natriuretic Peptide 12/03/21 12/03/21 12/03/21 06:57 07:16 12:41 Sodium Potassium Chloride Carbon Dioxide Anion Gap BUN Creatinine Estim Creat Clear Calc Estimated GFR POC Glucose 118 H 135 H Random Glucose Calcium Magnesium B-Natriuretic Peptide 470 H Procedures Date of Service Date of Service: 12/03/21 Assessment & Plan Assessment and plan (1) ESRD (end stage renal disease) on dialysis: Status: Acute (2) CHF exacerbation: Status: Acute Assessment and Plan: 1. 61-year-old male with chronic kidney disease, stage 5.? It is progressively getting worse and is presently end-stage renal disease. 2. Congestive heart failure, volume overload in the setting of poor renal clearance of solutes and fluid. 3. Type 2 diabetes mellitus. 4. Uncontrolled hypertension due to volume overload. 5. Chronic obstructive pulmonary disease. ? RECOMMENDATION:? Continue HD today HD again on Saturday We used 3 K bath \ ?needs to be on a strict 2 g sodium diet and a fluid restriction.? Oxygen and nitroglycerin as needed. ?We are using th AVF Out pt HD needs to be arranged on Saturday-Keep? Pt inhouse Changed? antihypertensive regimen- On Losartan 50 mg daily- No change in dose as we are removing volume ? In regard to anemia he had a? dose of erythropoietin 33249 units subcutaneously on Saturday ? ? Thank you for allowing me to participate in medical management of this patient. Time Spent With Patient Time: Total time spent is greater than 50% in coordination of care (as documented) at patient's floor/unit and/or counseling patient: Progress Note: Quality Stroke Does the patient have a stroke diagnosis?: No
[2021-12-03 16:06] LABS: Glucose, Whole Blood 143 mg/dL (60-115)
[2021-12-03 20:00] LABS: Glucose, Whole Blood 112 mg/dL (60-115)
[2021-12-03] MEDS: Insulin Glargine,Hum.rec.anlog 100 UNIT/ML 10 ML VIAL 10 UNIT SUBCUT (20:49)
[2021-12-03] MEDS: Atorvastatin Calcium 80 MG TABLET PO (20:50)
[2021-12-03] MEDS: NIFEdipine ER 30 MG TAB.ER.24 120 MG PO (20:50)
[2021-12-03] MEDS: Gabapentin 600 MG TABLET PO (20:50)
[2021-12-04] VITALS (7 sets, daily range): BP systolic 139–187; BP diastolic 56–79; PULSE 57–63; RESP 16–20; TEMP 36.5–37.2; O2SAT 94–99
[2021-12-04] MEDS: Heparin Sodium,Porcine 5,000 UNIT/ML VIAL 5000 UNIT SUBCUT ×3 (00:51→16:37)
[2021-12-04 07:13] LABS: Glucose, Whole Blood 103 mg/dL (60-115)
[2021-12-04] MEDS: 0.9 % Sodium Chloride Flush 3 ML SYRINGE IVFLUSH ×2 (07:34→16:37)
[2021-12-04] MEDS: Furosemide 40 MG/4 ML VIAL 80 MG IVPUSH (07:34)
[2021-12-04] MEDS: Isosorbide Mononitrate 60 MG TAB.ER.24H 120 MG PO (07:35)
[2021-12-04] MEDS: Omeprazole 40 MG CAPSULE.DR PO (07:35)
[2021-12-04] MEDS: Doxazosin Mesylate 2 MG TABLET PO (07:35)
[2021-12-04] MEDS: Perphenazine 4 MG TABLET PO ×2 (07:35→19:57)
[2021-12-04] MEDS: Aspirin Enteric Coated 81 MG TABLET.DR PO (07:36)
[2021-12-04] MEDS: Cholecalciferol (Vitamin D3) 25 MCG TABLET 50 MCG PO (07:36)
[2021-12-04] MEDS: Perphenazine 2 MG TABLET PO ×2 (07:36→19:59)
[2021-12-04] MEDS: OXcarbazepine 300 MG TABLET PO ×2 (07:36→19:56)
[2021-12-04] MEDS: Losartan Potassium 50 MG TABLET PO (07:36)
[2021-12-04] MEDS: carvediloL 25 MG TABLET PO ×2 (07:36→19:57)
[2021-12-04] MEDS: Sertraline HCL 100 MG TABLET 200 MG PO (07:36)
[2021-12-04 08:24] LABS: HBsAGNum1 0.27 S/CO (0.00-0.99); Hepatitis B Surface Antigen Negative (Negative)
[2021-12-04 08:49] LABS: HBS Num1 0.39 mIU/mL (0-7.99); HBc Num1 0.07 S/CO (0.00-0.79); Hepatitis B Core Antibody Nonreactive (Nonreactive); ~Hepatitis B Surface Antibody NONREACTIVE (Nonreactive)
[2021-12-04 11:07] LABS: Glucose, Whole Blood 138 mg/dL (60-115)
--- NOTE | 2021-12-04 11:38 | P.PNNP_ITS ---
Subjective Subjective Date of Service: 12/04/21 Interval history: Seen and examined, events noted Physical Exam Verdana 4l Vital Signs: Verdana 4d Verdana 4d Vital Signs: Verdana 4d Verdana 4Bd Last Vital Signs Verdana 4d Bin Filler New 4d Bin Filler New 4d Temp 97.8 F 12/04/21 07:15 Bin Filler New 4d Pulse 62 12/04/21 07:15 Bin Filler New 4d Resp 20 12/04/21 07:15 BP 160/56 H 12/04/21 07:15 Pulse Ox 99 12/04/21 07:15 Oxygen Flow Rate 21 12/01/21 07:36 BMI result Body Mass Index 38.2 Const: General: no acute distress HENMT: Other: Unremarkable Neck: Neck: Yes normal visual inspection Chest: Chest palpation & inspection: normal inspection of the chest Resp: Auscultation: crackles Cardio: Palpation: normal PMI Heart sounds: S1 normal heart sound present, S2 normal heart sound present, no gallops, no murmurs and no rubs GI: Palpation (GI): Soft to palpation Back/Spine/Pelvis: Other: unremarkable Skin: Lesions: other Neuro: Cranial nerves: Yes Other cranial nerve findings present Extrem: General: Yes pedal edema (1+) and Yes other Psych: Mental Status: other Objective Data Labs CBC & Chem 7: 12/02/21 05:51 12/03/21 06:57 Labs: Laboratory Results - last 24 hr 12/01/21 12/03/21 12/03/21 16:46 12:41 15:59 POC Glucose 135 H 143 H Hep Bs Antigen Negative Hep Bs Antibody NONREACTIVE Hep B Core Total Ab Nonreactive 12/03/21 12/04/21 12/04/21 19:50 07:03 11:04 POC Glucose 112 103 138 H Hep Bs Antigen Hep Bs Antibody Hep B Core Total Ab Procedures Date of Service Date of Service: 12/04/21 Assessment & Plan Assessment and plan (1) ESRD (end stage renal disease) on dialysis: Status: Acute (2) CHF exacerbation: Status: Acute Assessment and Plan: 1. 61-year-old male with chronic kidney disease, stage 5.? It is progressively getting worse and is presently end-stage renal disease. Today day # 3 HD 2. Congestive heart failure, volume overload in the setting of poor renal clearance of solutes and fluid. 3. Type 2 diabetes mellitus. 4. Uncontrolled hypertension due to volume overload. 5. Chronic obstructive pulmonary disease. 6. Anemia ? REC COnt HD as outpt ( I am trying to get a spot nailed down for him) BP meds as noted and will incr if remains elevated pull fluid with HD epo as ordeed MBD eig managed with binders etc.. will follow withteam ad hopefully for d/c soon once we get outpt HD spot Time Spent With Patient Time: Total time spent is greater than 50% in coordination of care (as documented) at patient's floor/unit and/or counseling patient: Progress Note: Quality Stroke Does the patient have a stroke diagnosis?: No
--- NOTE | 2021-12-04 12:14 | MHC.CM.PN ---
per rounds will dc patient when dialysis slot in place dr lowe will arrange
--- NOTE | 2021-12-04 12:58 | HO.PM.IMPN ---
Subjective Subjective Date of Service: 12/04/21 Interval History: This history was taken in Khmer from the patient. No chest pain Dyspnea and edema improving HD today; awaiting outpt placement Review of Systems Review of Systems: Yes all other systems are reviewed and are negative Physical Exam Vital Signs: Vital Signs: Last Vital Signs Temp 98.1 F 12/04/21 12:00 Pulse 57 12/04/21 12:00 Resp 20 12/04/21 12:00 BP 139/64 12/04/21 12:00 Pulse Ox 99 12/04/21 12:00 Oxygen Flow Rate 21 12/01/21 07:36 BMI result Body Mass Index 38.2 Gen: in no acute distress HEENT: sclera anicteric, moist mucus membranes Neck: supple Lungs: clear to auscultation bilaterally Heart: regular rate and rhythm, no murmurs Abd: soft, non-tender, non-distended, obese Ext: 1+ pitting BLE edema Skin: warm/well-perfused Neuro: alert and oriented x3, no focal findings Psych: appropriate affect Objective Data Active Medications Acetaminophen (Acetaminophen 325 Mg Tablet) 650 mg PO Q6H PRN PRN Reason: Pain, Mild (Pain Scale 1-3) Albuterol/Ipratropium (Albuterol/Iprat 2.5/0.5mg 3 Ml Ampul.Neb) 3 ml INHALE RQ4H PRN PRN Reason: shortness of breath/wheeze Last Admin: 12/01/21 10:11 Dose: 3 ml Documented by: HENRY Aspirin (Aspirin Enteric Coated 81 Mg Tablet.) 81 mg PO DAILY [facility] Last Admin: 12/04/21 07:36 Dose: 81 mg Documented by: MIKAYLA Atorvastatin Calcium (Atorvastatin Calcium 80 Mg Tablet) 80 mg PO BEDTIME [facility] Last Admin: 12/03/21 20:50 Dose: 80 mg Documented by: AARON Carvedilol (Carvedilol 25 Mg Tablet) 25 mg PO BID [facility]; Protocol Last Admin: 12/04/21 07:36 Dose: 25 mg Documented by: MIKAYLA Dextrose (Dextrose 50 % 25 Gm/50 Ml Syringe) 25 gm IVPUSH Q15M PRN; Protocol PRN Reason: per Hypoglycemia Standing Ord. Doxazosin Mesylate (Doxazosin Mesylate 2 Mg Tablet) 2 mg PO DAILY [facility]; Protocol Last Admin: 12/04/21 07:35 Dose: 2 mg Documented by: MIKAYLA Furosemide (Furosemide 40 Mg/4 Ml Vial) 80 mg IVPUSH DAILY [facility]; Protocol Last Admin: 12/04/21 07:34 Dose: 80 mg Documented by: MIKAYLA Gabapentin (Gabapentin 600 Mg Tablet) 600 mg PO BEDTIME [facility] Last Admin: 12/03/21 20:50 Dose: 600 mg Documented by: AARON Glucose (Glucose Gel 15 Gm Gel..Gram.) 15 gm PO Q15M PRN; Protocol PRN Reason: per Hypoglycemia Standing Ord. Heparin Sodium (Porcine) (Heparin Sodium,Porcine 5,000 Unit/Ml Vial) 5,000 unit SUBCUT Q8H [facility] Last Admin: 12/04/21 07:35 Dose: 5,000 unit Documented by: MIKAYLA Insulin Glargine (Insulin Glargine,Hum.Rec.Anlog 100 Unit/Ml 10 Ml Vial) 10 unit SUBCUT BEDTIME [facility] Last Admin: 12/03/21 20:49 Dose: 10 unit Documented by: AARON Insulin Human Lispro (Insulin Lispro 100 Unit/Ml 3 Ml Vial) 0 unit SUBCUT QIDACHS [facility]; Protocol Last Admin: 12/04/21 11:13 Dose: Not Given Documented by: MIKAYLA Non-Admin Reason: No Insulin Coverage Isosorbide Mononitrate (Isosorbide Mononitrate 60 Mg Tab.Er.24h) 120 mg PO DAILY [facility]; Protocol Last Admin: 12/04/21 07:35 Dose: 120 mg Documented by: MIKAYLA Losartan Potassium (Losartan Potassium 50 Mg Tablet) 50 mg PO DAILY [facility]; Protocol Last Admin: 12/04/21 07:36 Dose: 50 mg Documented by: MIKAYLA Melatonin (Melatonin 3 Mg Tablet) 6 mg PO BEDTIME PRN PRN Reason: Insomnia Nifedipine (Nifedipine Er 30 Mg Tab.Er.24) 120 mg PO BEDTIME [facility] Last Admin: 12/03/21 20:50 Dose: 120 mg Documented by: AARON Nitroglycerin (Nitroglycerin 0.4 Mg Tab.Subl) 0.4 mg SUBLINGUAL Q5MX3 PRN PRN Reason: Chest Pain Non-Formulary Medication (Icosapent Ethyl [Vascepa]) 2 cap PO BID [facility] Omeprazole (Omeprazole 40 Mg Capsule.Dr) 40 mg PO DAILY [facility] Last Admin: 12/04/21 07:35 Dose: 40 mg Documented by: MIKAYLA Oxcarbazepine (Oxcarbazepine 300 Mg Tablet) 300 mg PO BID [facility] Last Admin: 12/04/21 07:36 Dose: 300 mg Documented by: MIKAYLA Perphenazine (Perphenazine 2 Mg Tablet) 2 mg PO BID [facility] Last Admin: 12/04/21 07:36 Dose: 2 mg Documented by: MIKAYLA Perphenazine (Perphenazine 4 Mg Tablet) 4 mg PO BID [facility] Last Admin: 12/04/21 07:35 Dose: 4 mg Documented by: MIKAYLA Senna (Sennosides 8.6 Mg Tablet) 17.2 mg PO BEDTIME PRN PRN Reason: Constipation Sertraline HCl (Sertraline Hcl 100 Mg Tablet) 200 mg PO DAILY [facility] Last Admin: 12/04/21 07:36 Dose: 200 mg Documented by: MIKAYLA Sodium Chloride (0.9 % Sodium Chloride Flush 3 Ml Syringe) 3 ml IVFLUSH QSHIFT [facility] Last Admin: 12/04/21 07:34 Dose: 3 ml Documented by: MIKAYLA Vitamin D (Cholecalciferol (Vitamin D3) 25 Mcg Tablet) 50 mcg PO DAILY [facility] Last Admin: 12/04/21 07:36 Dose: 50 mcg Documented by: MIKAYLA Zolpidem Tartrate (Zolpidem Tartrate 5 Mg Tablet) 10 mg PO BEDTIME PRN PRN Reason: Insomnia Labs CBC & Chem 7: 12/02/21 05:51 12/03/21 06:57 Labs: Laboratory Results - last 24 hr 12/01/21 12/03/21 12/03/21 16:46 15:59 19:50 POC Glucose 143 H 112 Hep Bs Antigen Negative Hep Bs Antibody NONREACTIVE Hep B Core Total Ab Nonreactive 12/04/21 12/04/21 07:03 11:04 POC Glucose 103 138 H Hep Bs Antigen Hep Bs Antibody Hep B Core Total Ab Assessment and Plan (1) CHF exacerbation: Status: Acute Plan hospital d#5 61yo M with HFpEF, HTN, DM2, CKD4-5, asthma/COPD, BRENDA on CPAP presenting with dyspnea/edema, admitted for CHF exacerbation # acute/chronic HFpEF - given IV furosemide, on d#3/3 of induction HD, Cardiology + Nephrology following # ESRD - HD initiated, d#3/3 - HBV serology negative # anemia of ESRD - epo per Nephrology # HTN - continue Imdur, carvedilol, nifedipine, and doxazosin # PAD - continue ASA, atorvastatin # HLD - continue atorvastatin # asthma/COPD - prn nebs # BRENDA - CPAP at night # DM2 - basal/bolus insulin # neuropathy - continue gabapentin # mood disorder - continue oxcarbazepine, perphenazine, sertraline # VTE ppx - UFH # dispo - needs outpt HD placement Quality Stroke Does the patient have a stroke diagnosis?: No VTE Prior VTE?: No VTE Risk Level:: Medical - moderate - high VTE Device Contraindication: N/A - Device Ordered VTE Drug Contraindication: Treatment Not Indicated
--- NOTE | 2021-12-04 15:25 | MHC.CM.PN ---
per md rounds awaiting placement of outpt dialysis placement
[2021-12-04 16:16] LABS: Glucose, Whole Blood 139 mg/dL (60-115)
[2021-12-04] MEDS: NIFEdipine ER 30 MG TAB.ER.24 120 MG PO (19:56)
[2021-12-04] MEDS: Gabapentin 600 MG TABLET PO (19:57)
[2021-12-04] MEDS: Atorvastatin Calcium 80 MG TABLET PO (19:57)
[2021-12-04 20:03] LABS: Glucose, Whole Blood 138 mg/dL (60-115)
[2021-12-04] MEDS: Insulin Glargine,Hum.rec.anlog 100 UNIT/ML 10 ML VIAL 10 UNIT SUBCUT (22:30)
[2021-12-05] VITALS (7 sets, daily range): BP systolic 145–167; BP diastolic 67–84; PULSE 58–71; RESP 18–20; TEMP 36.2–37.1; O2SAT 95–99
[2021-12-05] MEDS: Heparin Sodium,Porcine 5,000 UNIT/ML VIAL 5000 UNIT SUBCUT ×3 (00:16→17:46)
[2021-12-05] MEDS: 0.9 % Sodium Chloride Flush 3 ML SYRINGE IVFLUSH ×4 (00:17→21:43)
[2021-12-05 06:45] LABS: B Type Natriuretic Peptide 255 pg/mL (<100)
[2021-12-05 06:56] LABS: Anion Gap 17 (12-20); Blood Urea Nitrogen 58 mg/dL (9-16); Calcium 8.4 mg/dL (8.4-10.2); Carbon Dioxide 22 mmol/L (22-29); Chloride 105 mmol/L (96-108); Creatinine Clr Calc Pharmacy 21.9; Estimated Glomerular Filt Rate 13; Glucose Random 125 mg/dL (60-115); Magnesium 2.2 mg/dL (1.6-2.6); Sodium 140 mmol/L (135-145)
[2021-12-05 07:26] LABS: Glucose, Whole Blood 121 mg/dL (60-115)
[2021-12-05] MEDS: Isosorbide Mononitrate 60 MG TAB.ER.24H 120 MG PO (10:06)
[2021-12-05] MEDS: Cholecalciferol (Vitamin D3) 25 MCG TABLET 50 MCG PO (10:07)
[2021-12-05] MEDS: Sertraline HCL 100 MG TABLET 200 MG PO (10:07)
[2021-12-05] MEDS: carvediloL 25 MG TABLET PO ×2 (10:07→21:40)
[2021-12-05] MEDS: Perphenazine 4 MG TABLET PO ×2 (10:08→21:41)
[2021-12-05] MEDS: Losartan Potassium 50 MG TABLET PO (10:08)
[2021-12-05] MEDS: Doxazosin Mesylate 2 MG TABLET PO (10:08)
[2021-12-05] MEDS: Omeprazole 40 MG CAPSULE.DR PO (10:09)
[2021-12-05] MEDS: Perphenazine 2 MG TABLET PO ×2 (10:09→21:41)
[2021-12-05] MEDS: OXcarbazepine 300 MG TABLET PO ×2 (10:09→21:41)
[2021-12-05] MEDS: Aspirin Enteric Coated 81 MG TABLET.DR PO (10:09)
[2021-12-05] MEDS: Furosemide 40 MG/4 ML VIAL 80 MG IVPUSH (10:10)
--- NOTE | 2021-12-05 10:54 | P.PNIM_ITS ---
Subjective Subjective Date of Service: 12/05/21 Interval History: This history was taken in Hungarian from the patient. Dyspnea + edema resolved. Awaiting HD placement. Non-adherent with CPAP Review of Systems Review of Systems: Yes all other systems are reviewed and are negative Physical Exam Vital Signs: Vital Signs: Last Vital Signs Temp 97.1 F 12/05/21 07:36 Pulse 62 12/05/21 07:36 Resp 20 12/05/21 08:09 BP 160/71 H 12/05/21 07:36 Pulse Ox 99 12/05/21 07:36 Oxygen Flow Rate 21 12/01/21 07:36 BMI result Body Mass Index 38.2 Gen: in no acute distress HEENT: sclera anicteric, moist mucus membranes Neck: supple Lungs: clear to auscultation bilaterally Heart: regular rate and rhythm, no murmurs Abd: soft, non-tender, non-distended, obese Ext: no edema Skin: warm/well-perfused Neuro: alert and oriented x3, no focal findings Psych: appropriate affect Objective Data Active Medications Acetaminophen (Acetaminophen 325 Mg Tablet) 650 mg PO Q6H PRN PRN Reason: Pain, Mild (Pain Scale 1-3) Albuterol/Ipratropium (Albuterol/Iprat 2.5/0.5mg 3 Ml Ampul.Neb) 3 ml INHALE RQ4H PRN PRN Reason: shortness of breath/wheeze Last Admin: 12/01/21 10:11 Dose: 3 ml Documented by: HENRY Aspirin (Aspirin Enteric Coated 81 Mg Tablet.) 81 mg PO DAILY [facility] Last Admin: 12/05/21 10:09 Dose: 81 mg Documented by: DEBBIE Atorvastatin Calcium (Atorvastatin Calcium 80 Mg Tablet) 80 mg PO BEDTIME [facility] Last Admin: 12/04/21 19:57 Dose: 80 mg Documented by: SALVATORE Carvedilol (Carvedilol 25 Mg Tablet) 25 mg PO BID [facility]; Protocol Last Admin: 12/05/21 10:07 Dose: 25 mg Documented by: DEBBIE Dextrose (Dextrose 50 % 25 Gm/50 Ml Syringe) 25 gm IVPUSH Q15M PRN; Protocol PRN Reason: per Hypoglycemia Standing Ord. Doxazosin Mesylate (Doxazosin Mesylate 2 Mg Tablet) 2 mg PO DAILY [facility]; Protocol Last Admin: 12/05/21 10:08 Dose: 2 mg Documented by: DEBBIE Furosemide (Furosemide 40 Mg/4 Ml Vial) 80 mg IVPUSH DAILY [facility]; Protocol Last Admin: 12/05/21 10:10 Dose: 80 mg Documented by: DEBBIE Gabapentin (Gabapentin 600 Mg Tablet) 600 mg PO BEDTIME [facility] Last Admin: 12/04/21 19:57 Dose: 600 mg Documented by: SALVATORE Glucose (Glucose Gel 15 Gm Gel..Gram.) 15 gm PO Q15M PRN; Protocol PRN Reason: per Hypoglycemia Standing Ord. Heparin Sodium (Porcine) (Heparin Sodium,Porcine 5,000 Unit/Ml Vial) 5,000 unit SUBCUT Q8H [facility] Last Admin: 12/05/21 10:10 Dose: 5,000 unit Documented by: DEBBIE Insulin Glargine (Insulin Glargine,Hum.Rec.Anlog 100 Unit/Ml 10 Ml Vial) 10 unit SUBCUT BEDTIME [facility] Last Admin: 12/04/21 22:30 Dose: 10 unit Documented by: SALVATORE Insulin Human Lispro (Insulin Lispro 100 Unit/Ml 3 Ml Vial) 0 unit SUBCUT Q IDACHS [facility]; Protocol Last Admin: 12/05/21 10:14 Dose: Not Given Documented by: DEBBIE Non-Admin Reason: No Insulin Coverage Isosorbide Mononitrate (Isosorbide Mononitrate 60 Mg Tab.Er.24h) 120 mg PO DAILY [facility]; Protocol Last Admin: 12/05/21 10:06 Dose: 120 mg Documented by: DEBBIE Losartan Potassium (Losartan Potassium 50 Mg Tablet) 50 mg PO DAILY [facility]; Protocol Last Admin: 12/05/21 10:08 Dose: 50 mg Documented by: DEBBIE Melatonin (Melatonin 3 Mg Tablet) 6 mg PO BEDTIME PRN PRN Reason: Insomnia Nifedipine (Nifedipine Er 30 Mg Tab.Er.24) 120 mg PO BEDTIME [facility] Last Admin: 12/04/21 19:56 Dose: 120 mg Documented by: SALVATORE Nitroglycerin (Nitroglycerin 0.4 Mg Tab.Subl) 0.4 mg SUBLINGUAL Q5MX3 PRN PRN Reason: Chest Pain Non-Formulary Medication (Icosapent Ethyl [Vascepa]) 2 cap PO BID [facility] Omeprazole (Omeprazole 40 Mg Capsule.Dr) 40 mg PO DAILY [facility] Last Admin: 12/05/21 10:09 Dose: 40 mg Documented by: DEBBIE Oxcarbazepine (Oxcarbazepine 300 Mg Tablet) 300 mg PO BID [facility] Last Admin: 12/05/21 10:09 Dose: 300 mg Documented by: DEBBIE Perphenazine (Perphenazine 2 Mg Tablet) 2 mg PO BID [facility] Last Admin: 12/05/21 10:09 Dose: 2 mg Documented by: DEBBIE Perphenazine (Perphenazine 4 Mg Tablet) 4 mg PO BID [facility] Last Admin: 12/05/21 10:08 Dose: 4 mg Documented by: DEBBIE Senna (Sennosides 8.6 Mg Tablet) 17.2 mg PO BEDTIME PRN PRN Reason: Constipation Sertraline HCl (Sertraline Hcl 100 Mg Tablet) 200 mg PO DAILY [facility] Last Admin: 12/05/21 10:07 Dose: 200 mg Documented by: DEBBIE Sodium Chloride (0.9 % Sodium Chloride Flush 3 Ml Syringe) 3 ml IVFLUSH QSHIFT [facility] Last Admin: 12/05/21 10:10 Dose: 3 ml Documented by: DEBBIE Vitamin D (Cholecalciferol (Vitamin D3) 25 Mcg Tablet) 50 mcg PO DAILY [facility] Last Admin: 12/05/21 10:07 Dose: 50 mcg Documented by: DEBBIE Zolpidem Tartrate (Zolpidem Tartrate 5 Mg Tablet) 10 mg PO BEDTIME PRN PRN Reason: Insomnia Labs CBC & Chem 7: 12/02/21 05:51 12/05/21 05:59 Labs: Laboratory Results - last 24 hr 12/04/21 12/04/21 12/04/21 11:04 15:54 19:33 Anion Gap Estim Creat Clear Calc Estimated GFR POC Glucose 138 H 139 H 138 H Random Glucose Calcium Magnesium B-Natriuretic Peptide 12/05/21 12/05/21 12/05/21 05:59 05:59 07:20 Anion Gap 17 Estim Creat Clear Calc 21.9 Estimated GFR 13 POC Glucose 121 H Random Glucose 125 H Calcium 8.4 D Magnesium 2.2 B-Natriuretic Peptide 255 H Assessment and Plan (1) CHF exacerbation: Status: Acute Plan hospital d#6 61yo M with HFpEF, HTN, DM2, CKD4-5, asthma/COPD, BRENDA on CPAP presenting with dyspnea/edema, admitted for CHF exacerbation ESRD # acute/chronic HFpEF - s/p 3d of induction HD, Cardiology + Nephrology following # ESRD - s/p induction HD - HBV serology negative # anemia of ESRD - epo per Nephrology # HTN - continue Imdur, carvedilol, nifedipine, and doxazosin # PAD - continue ASA, atorvastatin # HLD - continue atorvastatin # asthma/COPD - prn nebs # BRENDA - CPAP at night # DM2 - basal/bolus insulin # neuropathy - continue gabapentin # mood disorder - continue oxcarbazepine, perphenazine, sertraline # VTE ppx - UFH # dispo - needs outpt HD placement Quality Stroke Does the patient have a stroke diagnosis?: No VTE Prior VTE?: No VTE Risk Level:: Medical - moderate - high VTE Device Contraindication: N/A - Device Ordered VTE Drug Contraindication: Treatment Not Indicated
[2021-12-05 11:01] LABS: Glucose, Whole Blood 146 mg/dL (60-115)
--- NOTE | 2021-12-05 13:20 | MHC.CM.PN ---
pt to be dcd sat he is to have dialysis at [facility] starting fri at 5:30 .his scedule will be sat and fridays
[2021-12-05 16:14] LABS: Glucose, Whole Blood 141 mg/dL (60-115)
--- NOTE | 2021-12-05 18:41 | P.PNNP_ITS ---
Subjective Subjective Date of Service: 12/05/21 Interval history: Seen and examined, events noted Physical Exam Vital Signs: Vital Signs: Last Vital Signs Temp 98.7 F 12/05/21 15:15 Pulse 67 12/05/21 15:15 Resp 19 12/05/21 15:15 BP 145/67 H 12/05/21 15:15 Pulse Ox 98 12/05/21 15:15 Oxygen Flow Rate 21 12/01/21 07:36 BMI result Body Mass Index 38.2 Const: General: no acute distress HENMT: Other: Unremarkable Neck: Neck: Yes normal visual inspection Chest: Chest palpation & inspection: normal inspection of the chest Resp: Auscultation: crackles Cardio: Palpation: normal PMI Heart sounds: S1 normal heart sound present, S2 normal heart sound present, no gallops, no murmurs and no rubs GI: Palpation (GI): Soft to palpation Back/Spine/Pelvis: Other: unremarkable Skin: Lesions: other Neuro: Cranial nerves: Yes Other cranial nerve findings present Extrem: General: Yes pedal edema (1+) and Yes other Psych: Mental Status: other Objective Data Labs CBC & Chem 7: 12/02/21 05:51 12/05/21 05:59 Labs: Laboratory Results - last 24 hr 12/04/21 12/05/21 12/05/21 19:33 05:59 05:59 Sodium 140 Potassium 4.0 Chloride 105 Carbon Dioxide 22 Anion Gap 17 BUN 58 H Creatinine 4.75 H* Estim Creat Clear Calc 21.9 Estimated GFR 13 POC Glucose 138 H Random Glucose 125 H Calcium 8.4 D Magnesium 2.2 B-Natriuretic Peptide 255 H 12/05/21 12/05/21 12/05/21 07:20 10:55 16:07 Sodium Potassium Chloride Carbon Dioxide Anion Gap BUN Creatinine Estim Creat Clear Calc Estimated GFR POC Glucose 121 H 146 H 141 H Random Glucose Calcium Magnesium B-Natriuretic Peptide Procedures Date of Service Date of Service: 12/05/21 Assessment & Plan Assessment and plan (1) ESRD (end stage renal disease) on dialysis: Status: Acute (2) CHF exacerbation: Status: Acute Assessment and Plan: 1. 61-year-old male with chronic kidney disease, stage 5.? It is progressively getting worse and is presently end-stage renal disease. 2. Congestive heart failure: resolved with HD 3. Type 2 diabetes mellitus. 4. hypertension better now with HD 5. Chronic obstructive pulmonary disease. 6. Anemia ? REC COnt HD as outpt--has a spot at [facility] 1st shift ( [phone]) BP meds as noted pull fluid with HD epo as ordeed MBD eig managed with binders etc.. will follow with team and ok tod/c fromrenal standpoint after HD in am Time Spent With Patient Time: Total time spent is greater than 50% in coordination of care (as documented) at patient's floor/unit and/or counseling patient: Progress Note: Quality Stroke Does the patient have a stroke diagnosis?: No
[2021-12-05 19:44] LABS: Glucose, Whole Blood 159 mg/dL (60-115)
[2021-12-05] MEDS: Gabapentin 600 MG TABLET PO (21:40)
[2021-12-05] MEDS: Insulin Glargine,Hum.rec.anlog 100 UNIT/ML 10 ML VIAL 10 UNIT SUBCUT (21:40)
[2021-12-05] MEDS: NIFEdipine ER 30 MG TAB.ER.24 120 MG PO (21:40)
[2021-12-05] MEDS: Atorvastatin Calcium 80 MG TABLET PO (21:41)
[2021-12-06] VITALS: BP 158/62; PULSE 60; RESP 17; TEMP 36.9; O2SAT 96
[2021-12-06] MEDS: Heparin Sodium,Porcine 5,000 UNIT/ML VIAL 5000 UNIT SUBCUT ×2 (02:47→12:30)
[2021-12-06 03:41] VITALS: BP 148/56; PULSE 60; RESP 17; TEMP 37.1; O2SAT 93
[2021-12-06 07:12] LABS: Glucose, Whole Blood 117 mg/dL (60-115)
[2021-12-06 07:15] VITALS: BP 148/63; PULSE 63; RESP 20; TEMP 36.2; O2SAT 96
--- NOTE | 2021-12-06 11:40 | PM.PNNEP ---
Subjective Subjective Date of Service: 12/06/21 Interval history: Seen and examined, events noted currently on HD Physical Exam Vital Signs: Vital Signs: Last Vital Signs Temp 97.1 F 12/06/21 07:15 Pulse 63 12/06/21 07:15 Resp 20 12/06/21 07:15 BP 148/63 H 12/06/21 07:15 Pulse Ox 96 12/06/21 07:15 Oxygen Flow Rate 21 12/01/21 07:36 BMI result Body Mass Index 38.2 Const: General: no acute distress HENMT: Other: Unremarkable Neck: Neck: Yes normal visual inspection Chest: Chest palpation & inspection: normal inspection of the chest Resp: Auscultation: crackles Cardio: Palpation: normal PMI Heart sounds: S1 normal heart sound present, S2 normal heart sound present, no gallops, no murmurs and no rubs GI: Palpation (GI): Soft to palpation Back/Spine/Pelvis: Other: unremarkable Skin: Lesions: other Neuro: Cranial nerves: Yes Other cranial nerve findings present Extrem: General: Yes pedal edema (1+) and Yes other Psych: Mental Status: other Objective Data Labs CBC & Chem 7: 12/02/21 05:51 12/05/21 05:59 Labs: Laboratory Results - last 24 hr 12/05/21 12/05/21 12/06/21 16:07 19:30 07:09 POC Glucose 141 H 159 H 117 H Procedures Date of Service Date of Service: 12/06/21 Assessment & Plan Assessment and plan (1) ESRD (end stage renal disease) on dialysis: Status: Acute (2) CHF exacerbation: Status: Acute Assessment and Plan: 1. 61-year-old male with chronic kidney disease, stage 5.? It is progressively getting worse and is presently end-stage renal disease. 2. Congestive heart failure: resolved with HD 3. Type 2 diabetes mellitus. 4. hypertension better now with HD 5. Chronic obstructive pulmonary disease. 6. Anemia ? REC COnt HD as outpt--has a spot at [facility] [facility] 1st shift ( [phone]) BP meds as noted pull fluid with HD epo as ordeed MBD managed with binders etc.. will follow with team and ok to d/c from renal standpoint after HD in am I have arranged HD at the outpt spot Time Spent With Patient Time: Total time spent is greater than 50% in coordination of care (as documented) at patient's floor/unit and/or counseling patient: Progress Note: Quality Stroke Does the patient have a stroke diagnosis?: No
--- NOTE | 2021-12-06 11:50 | PM.DS ---
DS: Providers Provider Date of Service: 12/06/21 Date of admission: 12/01/21 05:02 Date of discharge: 12/06/21 Primary care physician: Nuvia Crook NP Consults: 12/01/21 05:02 Consult to Cardiology Routine Consulting Provider: Basim Horne Reason for consultation: CHF Consult to Nephrology Routine Consulting Provider: Pedro Luis Guerrero Reason for consultation: CHF DS: Diagnosis Discharge Diagnosis (1) ESRD (end stage renal disease) on dialysis: Status: Acute (2) CHF exacerbation: Status: Acute (3) Acute on chronic heart failure with preserved ejection fraction (HFpEF): Status: Acute (4) Essential hypertension: Status: Acute DS: Summary Hospital Course Hospital Course: from admission History + Physical by Gaurav Presley, 12/01/21: 61-year-old male with PMH of HTN, HLD, DM, HFpEFf, CKD stage 4, Asthma/COPD, BRENDA on CPAP, Aanxiety, depression, Hx of pancreatitis presented to the hospital with a chief complaint of shortness of breath/peripheral edema.? Patient reports that he has been having shortness of breath and generalized weakness going on for the past 1 week.? His shortness of breath worsens on exertion.? Mentioned that he has been complaint with his home medications.? Denies any fever chills and cough.? Denies any chest pain or palpitations.? pt mentions that he presented to ER couple days ago with similar ROS negative , except mention above ?ER course: ER team mentioned the patient on presentation noted to be in mild respiratory distress-placed on BiPAP.? Given Lasix ?and nitroglycerin.? Improved respiratory status.? Admitted to the hospital for further management. This 61 year-old with HFpEF, HTN, DM2, CKD4-5, asthma/COPD, and BRENDA on CPAP presenting with dyspnea/edema was admitted for CHF exacerbation with ESRD. He was seen by Cardiology and Nephrology and started on hemodialysis with relief of hypervolemia. An outpatient dialysis placement was secured at [facility] for 1st shift MWF. He will follow up with Primary Care, Nephrology, and Cardiology. For control of resistant hypertension, hydralazine was changed to losartan and otherwise, doxazosin, carvedilol, Imdur, and nifedipine were continued. Time Spent with Patient Time attestation: Total time spent providing and/or coordinating discharge services: 35 Discharge coordination time: Greater than 30 minutes Quality: Stroke Does the patient have a stroke diagnosis?: No Physical Exam Vital Signs: Vital Signs: Last Vital Signs Temp 97.1 F 12/06/21 07:15 Pulse 63 12/06/21 07:15 Resp 20 12/06/21 07:15 BP 148/63 H 12/06/21 07:15 Pulse Ox 96 12/06/21 07:15 Oxygen Flow Rate 21 12/01/21 07:36 BMI result Body Mass Index 38.2 Gen: in no acute distress HEENT: sclera anicteric, moist mucus membranes Neck: supple Lungs: clear to auscultation bilaterally Heart: regular rate and rhythm, no murmurs Abd: soft, non-tender, non-distended, obese Ext: no edema; LUE fistula Skin: warm/well-perfused Neuro: alert and oriented x3, no focal findings Psych: appropriate affect DS: Data Data Completed and Pending Completed studies during hospitalization [Text1]: Laboratory Results WBC 6.8 X10*3/uL (4.8-10.8) 12/02/21 05:51 RBC 2.94 X10*6/uL (4.60-5.80) L 12/02/21 05:51 Hgb 8.5 g/dl (14.0-18.0) L 12/02/21 05:51 Hct 25.9 % (42.0-52.0) L 12/02/21 05:51 MCV 88.1 fL (80.0-98.0) 12/02/21 05:51 MCH 28.9 pg (27.0-33.0) 12/02/21 05:51 MCHC 32.8 g/dl (31.0-36.0) 12/02/21 05:51 RDW 13.9 % (11.0-16.0) 12/02/21 05:51 Plt Count 150 X10*3/uL (160-400) L 12/02/21 05:51 MPV 11.9 fL (9.4-12.4) 12/02/21 05:51 Immature Gran % (Auto) 0.3 % (0.0-0.4) 12/02/21 05:51 Neut % (Auto) 78.7 % (45-73) H 12/02/21 05:51 Lymph % (Auto) 10.4 % (20-40) L 12/02/21 05:51 Carson % (Auto) 6.8 % (2-11) 12/02/21 05:51 Eos % (Auto) 3.7 % (0-4) 12/02/21 05:51 Baso % (Auto) 0.1 % (0-2) 12/02/21 05:51 Lymph # (Auto) 0.7 X10*3/uL (1.2-4.9) L 12/02/21 05:51 Carson # (Auto) 0.5 X10*3/uL (0.1-1.2) 12/02/21 05:51 Eos # (Auto) 0.3 X10*3/uL (0.0-0.4) 12/02/21 05:51 Baso # (Auto) 0.0 X10*3/uL (0.0-0.2) 12/02/21 05:51 Abs Immat Gran (auto) 0.02 X10*3/uL (0.00-0.03) 12/02/21 05:51 Absolute Neuts (auto) 5.4 x10*3/uL (2.0-8.3) 12/02/21 05:51 Absolute Nucleated RBC 0.000 X10*3/uL (0.0-0.012) 12/02/21 05:51 Nucleated RBC % (auto) 0.0 /100WBC (0.0-0.2) 12/02/21 05:51 PT 11.6 SEC (9.9-13.0) 12/01/21 02:15 INR 1.0 (0.9-1.1) 12/01/21 02:15 VBG pH 7.44 (7.32-7.43) H 12/01/21 02:18 VBG pCO2 37 mmHg 12/01/21 02:18 VBG pO2 161 mmHg 12/01/21 02:18 VBG HCO3 26 mmol/L (22-26) 12/01/21 02:18 VBG O2 Saturation 100.0 % 12/01/21 02:18 VBG Base Excess 2.1 mmol/L 12/01/21 02:18 Sodium 140 mmol/L (135-145) 12/05/21 05:59 Potassium 4.0 mmol/L (3.3-5.1) 12/05/21 05:59 Chloride 105 mmol/L (96-108) 12/05/21 05:59 Carbon Dioxide 22 mmol/L (22-29) 12/05/21 05:59 Anion Gap 17 (12-20) 12/05/21 05:59 BUN 58 mg/dL (9-16) H 12/05/21 05:59 Creatinine 4.75 mg/dL (0.5-1.4) H* 12/05/21 05:59 Estim Creat Clear Calc 21.9 12/05/21 05:59 Estimated GFR 13 12/05/21 05:59 POC Glucose 117 mg/dL (60-115) H 12/06/21 07:09 Random Glucose 125 mg/dL (60-115) H 12/05/21 05:59 Calcium 8.4 mg/dL (8.4-10.2) D 12/05/21 05:59 Magnesium 2.2 mg/dL (1.6-2.6) 12/05/21 05:59 Total Bilirubin 0.4 mg/dL (0.0-1.0) 12/01/21 02:15 AST 31 U/L (5-37) 12/01/21 02:15 ALT 47 U/L (0-40) H 12/01/21 02:15 Alkaline Phosphatase 101 U/L (39-117) D 12/01/21 02:15 B-Natriuretic Peptide 255 pg/mL (<100) H 12/05/21 05:59 Total Protein 7.0 g/dL (6.5-8.0) 12/01/21 02:15 Albumin 3.9 g/dL (3.5-5.0) 12/01/21 02:15 COVID-19 (RIGOBERTO) Negative (Negative) 12/01/21 02:15 COVID-19 Clin Com See Note 12/01/21 02:15 Hep Bs Antigen Negative (Negative) 12/01/21 16:46 Hep Bs Antibody NONREACTIVE (Nonreactive) 12/01/21 16:46 Hep B Core Total Ab Nonreactive (Nonreactive) 12/01/21 16:46 Impressions Chest X-Ray 12/01/21 02:46 IMPRESSION: Somewhat coarsened appearance of the interstitium is similar to prior and may reflect airways disease. No acute consolidation identified. Labs on day of discharge: = Discharge Plan Discharge Patient Disposition: Home Health Service Discharge Diagnosis: CHF, ESRD Referrals: Pedro Luis Guerrero MD [Physician] - 1 Week Nuvia Crook NP [Primary Care Provider] - 1 Week Basim Horne MD [Physician] - 1 Week Discharge Medications: New losartan 50 mg Tablet 50 mg PO DAILY Qty: 30 0RF Protocol: Hold for SBP< HOLD for SBP < : 90 Continued atorvastatin 80 mg tablet 1 tab PO BEDTIME 0RF carvedilol 25 mg tablet 1 tab PO BID 0RF gabapentin 600 mg tablet 600 mg PO BEDTIME 0RF perphenazine 2 mg tablet 1 tab PO BID 0RF torsemide 20 mg tablet 4 tab PO BID 0RF sertraline 100 mg tablet 2 tab PO DAILY 0RF oxcarbazepine 300 mg tablet 1 tab PO BID 0RF nifedipine 30 mg tablet extended release 4 tab PO BEDTIME 0RF omeprazole 40 mg capsule,delayed release(DR/EC) 1 cap PO DAILY 0RF aspirin 81 mg tablet,delayed release (DR/EC) 1 tab PO DAILY 0RF tramadol 50 mg tablet 2 tab PO Q8H PRN (Reason: Pain) 0RF isosorbide mononitrate 60 mg tablet extended release 24 hr 2 tab PO DAILY 0RF perphenazine 4 mg tablet 1 tab PO BID 0RF zolpidem 10 mg tablet 1 tab PO BEDTIME PRN (Reason: Insomnia) 0RF doxazosin 2 mg tablet 2 mg PO DAILY 0RF insulin aspart U-100 [Novolog Flexpen U-100 Insulin] 100 unit/mL (3 mL) insulin pen 10 unit subcut DAILY 0RF Rx Instructions: 10 units breakfast, 16 units lunch, 24 units dinner cholecalciferol (vitamin D3) 25 mcg (1,000 unit) tablet 2 tab PO DAILY 0RF icosapent ethyl [Vascepa] 1 gram capsule 2 cap PO BID 0RF Toujeo Max U-300 SoloStar 300 unit/mL (3 mL) insulin pen 50 unit subcut DAILY 0RF albuterol sulfate [Ventolin HFA] 90 mcg/actuation HFA aerosol inhaler 2 puff PO Q4H PRN (Reason: Shortness Of Breath) 0RF insulin aspart U-100 [Novolog Flexpen U-100 Insulin] 100 unit/mL (3 mL) insulin pen 16 unit subcut QNOON 0RF insulin aspart U-100 [Novolog Flexpen U-100 Insulin] 100 unit/mL (3 mL) insulin pen 24 unit subcut DAILY@1700 0RF Discontinued hydralazine 100 mg tablet 1 tab PO TID 0RF Discharge Orders: Discharge Order (Routine); Ordered 12/06/21 Ordered By: Alex Ferrell Diet: advance to usual diet, diabetic diet and low salt diet Activity on Discharge: As tolerated Stand Alone Forms: Patient Portal Discharge page Care Plan Goals: prevention of CHF exacerbation + complications of ESRD Health Concerns: CHF, ESRD Plan of Treatment: outpatient hemodialysis 3x a week- MWF at [facility], 1st shift ([phone]) stop hydralazine 100 mg 3x a day; start losartan 50 mg daily follow up with Primary Care, Cardiology, and Nephrology in 1-2 weeks Assessment: see Discharge Summary Patient Instructions: Dialysis Diet (DC), End Stage Kidney Disease (ED), End Stage Kidney Disease (DC), Hemodialysis (DC)
[2021-12-06 12:18] LABS: Glucose, Whole Blood 110 mg/dL (60-115)
--- NOTE | 2021-12-06 12:18 | W.MHC.F2F ---
Service Date Service Date: 12/06/21 Encounter Date of encounter: 12/06/21 Reasons for Services Signs and symptoms assessed: CHF Reason for retirement: medication management, medication treatment and teach disease management MD Overseeing Care: Nuvia Crook Homebound: Leaving the home is medically contraindicated at this time without the asist of a device and/or another person due th the listed conditions above and below. Reason homebound: unsteady gait / fall risk, shortness of breath with minimal effort, immunosuppression / infection risk and weakness related to hospital stay Certification: Based on the above findings, I certify that this patient is confined to the home and needs intermittent retirement care, physical therapy and/or speech therapy, or continues to need occupational therapy. The patient is under my care, and I have initiated the establishment of the plan of care. The patient will be followed by a physician who will periodically review the plan of care.
[2021-12-06 12:30] VITALS: BP 153/69; PULSE 61; RESP 18; TEMP 36.7; O2SAT 96
[2021-12-06] MEDS: 0.9 % Sodium Chloride Flush 3 ML SYRINGE IVFLUSH (12:30)
--- NOTE | 2021-12-06 12:31 | MHC.CM.PN ---
has orderd a vna lan from [facility] has approved spoke with francisco who mwill be picking up pt
[2021-12-06] MEDS: OXcarbazepine 300 MG TABLET PO (12:34)
[2021-12-06] MEDS: Aspirin Enteric Coated 81 MG TABLET.DR PO (12:34)
[2021-12-06] MEDS: Omeprazole 40 MG CAPSULE.DR PO (12:34)
[2021-12-06] MEDS: Isosorbide Mononitrate 60 MG TAB.ER.24H 120 MG PO (12:34)
[2021-12-06] MEDS: Losartan Potassium 50 MG TABLET PO (12:34)
[2021-12-06] MEDS: Sertraline HCL 100 MG TABLET 200 MG PO (12:35)
[2021-12-06] MEDS: Cholecalciferol (Vitamin D3) 25 MCG TABLET 50 MCG PO (12:35)
[2021-12-06] MEDS: carvediloL 25 MG TABLET PO (12:35)
[2021-12-06] MEDS: Doxazosin Mesylate 2 MG TABLET PO (12:38)
[2021-12-06] MEDS: Perphenazine 4 MG TABLET PO (12:38)
[2021-12-06] MEDS: Perphenazine 2 MG TABLET PO (12:38)
--- NOTE | 2021-12-06 16:22 | PC.NURSE ---
Pt had requested home O2 eval with no prior oxygen use at home. Pt on room air SaO2 96%. Home O2 eval ordered by . Pt ride arrived 14:20 after his hemodialysis appt and pt chose to leave with discharge paperwork before home O2 eval by respiratory therapy. IV removed and tele monitor removed. Pt was transported by wheelchair by hospital staff to car ride home with daughter.
== END 2021-12-06 14:20 | disposition home health service (06) | DRG 291 ==
LOC: HO.ED 02:38 → HO.EDOVER 05:39 → HO.IMC 18:34
PROVIDERS: Internal Medicine Nephrology; Student in an Organized Health Care Education/Training Program; Admitting Provider Hospitalist; Emergency Provider Emergency Medicine; PCP Nurse Practitioner Primary Care; Visit Provider Family Medicine
DX: I13.2 Hypertensive heart and chronic kidney disease with heart failure and with stage 5 chronic kidney disease, or end stage renal disease (principal); N18.6 End stage renal disease; I50.33 Acute on chronic diastolic (congestive) heart failure; I16.1 Hypertensive emergency; N17.9 Acute kidney failure, unspecified; Z99.2 Dependence on renal dialysis; G47.33 Obstructive sleep apnea (adult) (pediatric); E11.22 Type 2 diabetes mellitus with diabetic chronic kidney disease; F32.A Depression, unspecified; J44.9 Chronic obstructive pulmonary disease, unspecified; E11.51 Type 2 diabetes mellitus with diabetic peripheral angiopathy without gangrene; F41.9 Anxiety disorder, unspecified; E11.40 Type 2 diabetes mellitus with diabetic neuropathy, unspecified; E11.65 Type 2 diabetes mellitus with hyperglycemia; N25.0 Renal osteodystrophy; D63.1 Anemia in chronic kidney disease; Z20.822 Contact with and (suspected) exposure to COVID-19; Z99.89 Dependence on other enabling machines and devices; Z87.891 Personal history of nicotine dependence; Z79.4 Long term (current) use of insulin; Z79.82 Long term (current) use of aspirin; Z79.891 Long term (current) use of opiate analgesic; Z79.899 Other long term (current) drug therapy
CPT/HCPCS: 36415; 71045; 80048; 80053; 82803; 82947; 83735; 83880; 85025; 85610; 86704; 86706; 87340; 87635; 90999; 93005; 94640; 94660; 96374; 99285; J1650; J1940; J2150

== ENCOUNTER 2022-05-05 10:15 | Emergency (ER) | payer OTHER, SELFPAY ==
--- NOTE | ~2022-05-05 | CT_ITS ---
EXAMINATION: CT head/brain wo con CLINICAL INFORMATION: Headache, dizziness COMPARISON: CT brain 08/18/2021 TECHNIQUE: Contiguous axial imaging was performed from the skull base to vertex without intravenous contrast. Sagittal and coronal reformatted images were obtained. This CT examination was performed using dose optimization techniques as appropriate, variously including the following: * Automated exposure control * Adjustment of mA and/or kV according to patient size (this includes techniques or standardized protocols for targeted exams where dose is matched to indication/reason for exam; i.e. extremities or head) Use of iterative reconstruction technique DLP: 750 mGy-cm FINDINGS: No acute osseous or soft tissue abnormality. Stable right mastoid effusion. There is no evidence of acute intracranial hemorrhage or territorial infarction. No abnormal mass effect or midline shift is seen. Jj to white matter differentiation is well preserved. No extra-axial fluid collections are identified. No hydrocephalus. Stable remote left basal ganglia lacunar infarct. Patchy periventricular and deep white matter hypoattenuation is consistent with mild small vessel ischemic changes similar to prior. CT/CT head/brain wo con IMPRESSION: 1. No acute intracranial abnormality. 2. Stable right mastoid effusion.
[2022-05-05 10:06] VITALS: BP 70/30; BP 73/29; PULSE 66; PULSE 78; RESP 18; TEMP 36.6; O2SAT 97; O2SAT 99; BMI 31.6
--- NOTE | 2022-05-05 10:18 | ED_ITS ---
HPI - General Adult General Chief complaint: General Medical Stated complaint: dizzy ,headaches Time Seen by Provider: 05/05/22 10:42 Source: patient Mode of arrival: EMS Limitations: language barrier History of Present Illness HPI narrative: 61-year-old [place]-speaking male with a history of end-stage renal disease on dialysis Saturday, Saturday, Saturday, with a past medical history of CHF, anemia, COPD, depression, diabetes, hypertension, migraines, alcohol abuse, pancreatitis, and sleep apnea. Patient is not anticoagulated but is on aspirin and is on doxazosin and carvedilol for blood pressure, he did take his blood pressure medication this morning Patient presents for complaints of 2-3 days of feeling lightheaded, diarrhea for the past 2 days, with headache. Headache started 5 days ago, was gradual in onset, is a 10/10 pain in the back of his head. He is not photophobic, noise does not bother, no new neck pain, no blurry vision. Patient states his blood pressure has been low at home, his systolic blood pressure at home was 76. States some of his stool was dark, denies any bloody or black stool. States his symptoms were not worse after dialysis. He feels presyncopal when he stands. He is alert oriented to person, place, situation, and time. Denies chest pain, shortness of breath, abdominal pain, vomiting, nausea, fevers, upper respiratory symptoms Related Data Home Medications Medication Instructions Recorded Confirmed albuterol sulfate 90 mcg/actuation 2 puff PO Q4H PRN Shortness Of 12/01/21 12/01/21 aerosol inhaler (Ventolin HFA) Breath aspirin 81 mg tablet,delayed 1 tab PO DAILY 12/01/21 12/01/21 release atorvastatin 80 mg tablet 1 tab PO BEDTIME 12/01/21 12/01/21 carvedilol 25 mg tablet 1 tab PO BID 12/01/21 12/01/21 cholecalciferol (vitamin D3) 25 2 tab PO DAILY 12/01/21 12/01/21 mcg (1,000 unit) tablet gabapentin 600 mg tablet 600 mg PO BEDTIME 12/01/21 12/01/21 icosapent ethyl 1 gram capsule 2 cap PO BID 12/01/21 12/01/21 (Vascepa) insulin aspart U-100 100 unit/mL 10 unit subcut DAILY 12/01/21 12/01/21 (3 mL) subcutaneous pen (Novolog Flexpen U-100 Insulin aspart) insulin aspart U-100 100 unit/mL 16 unit subcut QNOON 12/01/21 12/01/21 (3 mL) subcutaneous pen (Novolog Flexpen U-100 Insulin aspart) insulin aspart U-100 100 unit/mL 24 unit subcut DAILY@1700 12/01/21 12/01/21 (3 mL) subcutaneous pen (Novolog Flexpen U-100 Insulin aspart) insulin glargine U-300 conc 300 50 unit subcut DAILY 12/01/21 12/01/21 unit/mL (3 mL) subcutaneous pen (Toujeo Max U-300 SoloStar) isosorbide mononitrate 60 mg 2 tab PO DAILY 12/01/21 12/01/21 tablet,extended release 24 hr nifedipine 30 mg tablet,extended 4 tab PO BEDTIME 12/01/21 12/01/21 release omeprazole 40 mg capsule,delayed 1 cap PO DAILY 12/01/21 12/01/21 release oxcarbazepine 300 mg tablet 1 tab PO BID 12/01/21 12/01/21 perphenazine 2 mg tablet 1 tab PO BID 12/01/21 12/01/21 perphenazine 4 mg tablet 1 tab PO BID 12/01/21 12/01/21 sertraline 100 mg tablet 2 tab PO DAILY 12/01/21 12/01/21 tramadol 50 mg tablet 2 tab PO Q8H PRN Pain 12/01/21 12/01/21 zolpidem 10 mg tablet 1 tab PO BEDTIME PRN Insomnia 12/01/21 12/01/21 Previous Rx's Medication Instructions Recorded losartan 50 mg tablet 50 mg PO DAILY #30 tabs 12/06/21 pen needle, diabetic 32 gauge x #150 ea 12/21/21 (BD Ultra-Fine Silvia Pen Needle) doxazosin 2 mg tablet 2 mg PO DAILY #90 tabs 04/06/22 torsemide 20 mg tablet 80 mg PO BID 90 days #720 tabs 04/06/22 Allergies Allergy/AdvReac Type Severity Reaction Status Date / Time No Known Allergies Allergy Verified 12/01/21 01:50 Review of Systems Constitutional: Constitutional: Denies body ache(s), Denies chills, Reports fatigue, Denies fever(s), Reports headache(s), Reports malaise and Denies weakness Eyes: Eyes: Denies blurry vision, Denies change in vision and Denies diplopia ENT: Reports Normal hearing present, Denies vertigo, Reports dizziness, Denies otalgia, Reports headache(s), Denies post nasal drip, Denies sinus pain and Denies sore throat Cardiovascular: Cardiovascular: Denies chest pain, Denies syncope, Denies leg edema, Reports lightheadedness, Denies Loss of Consciousness, Denies pa lpitations and Denies dyspnea Respiratory: Respiratory: Denies chest congestion, Denies cough and Denies dyspnea Gastrointestinal: Gastrointestinal: Denies abdominal pain, Denies hematochezia, Denies coffee ground emesis, Denies constipation, Reports diarrhea, Denies nausea and Denies vomiting Genitourinary: Comments: Only makes a small amount of urine every 3 days Musculoskeletal: Musculoskeletal: Reports no additional musculoskeletal complaints Neurologic: Reports Normal hearing present, Denies Abnormal speech present, Denies confusion, Denies vertigo, Reports dizziness, Denies syncope, Reports headache(s), Denies Sensory deficit (Neuro) and Denies weakness Psychiatric: Psychiatric: Denies anxiety, Denies confusion and Denies depression Endocrine: Endocrine: Reports fatigue and Denies palpitations PMFSH Past Medical History Medical History Abnormal biopsy of kidney Anemia Anxiety Asthma CHF (congestive heart failure) CHF exacerbation Chronic kidney disease, stage 4 (severe) CKD (chronic kidney disease) stage 4, GFR 15-29 ml/min Congestive heart failure COPD (chronic obstructive pulmonary disease) Depression Depression with anxiety Diabetes mellitus with hyperglycemia, with long-term current use of insulin Diabetes type 2, uncontrolled Diastolic dysfunction Diverticulitis Elevated cholesterol Erectile dysfunction ESRD (end stage renal disease) on dialysis Essential hypertension Heart failure with preserved ejection fraction History of alcohol abuse History of headache HTN (hypertension) HTN (hypertension) Hx of pancreatitis Hyperglycemia Hypertension Hypertensive crisis Hypertriglyceridemia On beta doron at home Pancreatitis Peptic ulcer Proteinuria Sleep apnea Type 2 diabetes mellitus with chronic kidney disease Type 2 diabetes mellitus with hyperglycemia, with long-term current use of insulin Type 2 diabetes mellitus with polyneuropathy Type 2 diabetes mellitus with unspecified complications Surgical History History of surgery Hx of colonoscopy Hx of right inguinal hernia repair Family History Family History Mother Diabetes Social History Social History Household Members: None Housing: House Are you a primary toddler caregiver to a significant other at home: No Do you presently have visiting nurse or other home services: 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) Alcohol intake: never Patient Tobacco Use Status: Former Tobacco user Quit Date: 2017 Tobacco use type: Cigarette Years Smoked: 30 Second Hand Smoke Exposure: Yes Advance Directives: No Advance Directives Information Provided: Yes service: No Current occupational status: retired Physical Exam ED Vital Signs: Vital Signs - 24 hr 05/05/22 10:06 05/05/22 11:22 05/05/22 14:00 Temperature 97.9 F Pulse Rate 66 62 57 Respiratory Rate 18 14 10 L Blood Pressure 73/29 L 90/29 L 120/36 L Pulse Oximetry 99 98 96 Oxygen Delivery Method Room Air Room Air Room Air BMI result Body Mass Index 31.6 Const General: no acute distress, alert, awake and ill appearing chronically; No confusion Nutritional Appearance: obese Orientation/consciousness: patient oriented x3 and No confusion Limitations: no limitations HENMT Head: Yes normal to inspection, Yes normocephalic and Yes atraumatic Ears: hearing grossly normal bilaterally and external ears normal General nose exam: Normal external nose present Face and sinus: Yes normal facial exam and Yes sinuses nontender Mouth: Normal oral and palatal mucosa present Throat: Yes posterior oropharynx normal Eyes Conjunctivae: conjunctivae normal Pupils: Equal, round and reactive pupils present EOM: EOMs intact bilaterally and No Nystagmus present Neck Neck: Yes full ROM, Yes no lymphadenopathy and Yes supple Resp Effort & Inspection: normal respiratory effort and able to speak in complete sentences Auscultation: clear to auscultation bilaterally, no crackles, no rales, no rhonchi and no wheezes Cardio Rate: regular rate Rhythm: regular rhythm Heart sounds: S1 normal heart sound present and S2 normal heart sound present GI Inspection: Yes obesity Palpation (GI): Soft to palpation, nontender, no guarding and not rigid Percussion: Yes normal to percussion Auscultation: normal bowel sounds Skin General skin exam: no rashes or lesions noted Neuro General: patient oriented x3, No confusion and Unable to assess gait (d/t dizziness) Cranial nerves: Yes CN's II-XII intact bilaterally, Yes Facial sensation intact/muscles of mastication intact, Yes Equal, round and reactive pupils present, Yes Normal accommodation reflex present, Yes Bilaterally intact EOM present, Yes Nystagmus not present, Yes Normal facial strength present, Yes Midline tongue present, Yes Normal hearing present, Yes Ability to bilaterally rotate head present, Yes Ability to bilaterally elevate shoulders present and No Nystagmus present Cognition (Neuro): normal cognition Speech: No Abnormal speech present Gait exam (Neuro): Unable to assess gait (d/t dizziness) Motor exam (neuro): 5/5 motor strength present throughout, Pronator motor function not present and no tremor noted Sensory Exam: No Sensory deficit (Neuro) Coordination: [id number] test normal Pupils: Normal pupillary reactivity/response: bilateral Extrem General: Yes normal to inspection and Yes full ROM Psych Appearance: grossly normal Affect: normal affect Attitude: cooperative Thought process: Normal thought process present Course Course Course Narrative: 61-year-old [place]-speaking patient who is on dialysis with multiple comorbidities presents for 2-3 days of diarrhea, presyncope, headache and malaise. On exam, patient is hypotensive, his blood pressure is 73/29. However, he is alert and oriented, answering all questions appropriately. Physical exam is unremarkable except to note that this patient is chronically ill-appearing and obese Neuro exam was unremarkable, gave Tylenol for headache pain Gave 500mL NS Guaiac done as patient is endorsing some dark stool with the diarrhea. Guaiac was negative. Patient's EKG shows right bundle, EKG is not ischemic and is unchanged from November 2021. First troponin is 25.3. Will repeat in 3 hour. Patient's H&H is 9.1 and 27.2, this is his baseline anemia. Patient's creatinine is elevated at 12.58, BUN 40. Patient's creatinine in the past has not been this high, has been up to Creatinine of 5 Potassium is 4.3, lungs clear, no LE edema, patient does not appear to be fluid overloaded. Head CT unremarkable After 500mL normal saline, pt's BP is now 90/29, MAP of 61 Will give 500mL more, will consult nephrology. 12:45 Spoke to Nephrology, Dr Yi, to discuss patient. Coat Tailor said elevated creatinine does not make a difference in patient's disposition. Coat Tailor said if patient was admitted he would consult on patient tomorrow Reevaluation(s) Reevaluation #1: After another 500mL, pt's BP is 97/51, MAP of 67. Will get more BP readings to determine dispo Pt has been sleeping comfotably, in no distress FINDINGS: No acute osseous or soft tissue abnormality.? Stable right mastoid effusion. There is no evidence of acute intracranial hemorrhage or territorial infarction. No abnormal mass effect or midline shift is seen. Jj to white matter differentiation is well preserved. No extra-axial fluid collections are identified. No hydrocephalus. Stable remote left basal ganglia lacunar infarct. Patchy periventricular and deep white matter hypoattenuation is consistent with mild small vessel ischemic changes similar to prior. ? CT/CT head/brain wo con IMPRESSION: ? 1.? No acute intracranial abnormality. ? 2.? Stable right mastoid effusion. ? Reevaluation #2: Patient's blood pressure is now 120/36, with a map of 64. His headache resolved completely, he is feeling better. He was able to walk to the bathroom by himself with absolutely no dizziness. His repeat troponin, is no delta change, 3 hour troponin is 23, 1st troponin was 25.6. Spoke to Nuvia Crook, patient's PCP, he stated we should hold patient's losartan and doxazosin until he is seen by PCP on Saturday. Stated that his office will call patient for appointment on Saturday, and patient should continue with all of his other medications. Also stated patient should have his dialysis on Saturday. Discussed all of the above plan with patient, medical office technology instructor was present for all interactions, patient verbalized agreement understanding of the plan Medical Decision Making Lab Data Result diagrams: 05/05/22 11:09 05/05/22 11:09 Labs: Lab Results 05/05/22 05/05/22 05/05/22 Range/Units 11:09 11:09 11:09 WBC 7.0 (4.8-10.8) X10*3/uL RBC 2.81 L (4.60-5.80) X10*6/uL Hgb 9.1 L (14.0-18.0) g/dl Hct 27.2 L (42.0-52.0) % MCV 96.8 (80.0-98.0) fL MCH 32.4 (27.0-33.0) pg MCHC 33.0 (31.0-36.0) g/dl RDW 15.2 (11.0-16.0) % Plt Count 137 L (160-400) X10*3/uL MPV 11.8 (9.4-12.4) fL Immature Gran % (Auto) 0.7 H (0.0-0.4) % Neut % (Auto) 70.9 (45-73) % Lymph % (Auto) 19.3 L (20-40) % [place] % (Auto) 5.0 (2-11) % Eos % (Auto) 3.7 (0-4) % Baso % (Auto) 0.4 (0-2) % Lymph # (Auto) 1.3 (1.2-4.9) X10*3/uL [place] # (Auto) 0.4 (0.1-1.2) X10*3/uL Eos # (Auto) 0.3 (0.0-0.4) X10*3/uL Baso # (Auto) 0.0 (0.0-0.2) X10*3/uL Abs Immat Gran (auto) 0.05 H (0.00-0.03) X10*3/uL Absolute Neuts (auto) 4.9 (2.0-8.3) x10*3/uL Absolute Nucleated RBC 0.000 (0.0-0.012) X10*3/uL Nucleated RBC % (auto) 0.0 (0.0-0.2) /100WBC Sodium 140 (135-145) mmol/L Potassium 4.3 (3.3-5.1) mmol/L Chloride 99 (96-108) mmol/L Carbon Dioxide 24 (22-29) mmol/L Anion Gap 21 H (12-20) BUN 40 H (9-16) mg/dL Creatinine 12.58 H* (0.5-1.4) mg/dL Estim Creat Clear Calc 7.9 Estimated GFR 4 Random Glucose 176 H D (60-115) mg/dL Calcium 8.5 (8.4-10.2) mg/dL Total Bilirubin 0.4 (0.0-1.0) mg/dL AST 27 (5-37) U/L ALT 22 (0-40) U/L Alkaline Phosphatase 103 (39-117) U/L Troponin I High Sens 25.3 (<3.5-35.0) ng/L Total Protein 8.2 H (6.5-8.0) g/dL Albumin 4.6 (3.5-5.0) g/dL Stool Occult Blood (NEGATIVE) COVID-19 (RIGOBERTO) (Negative) COVID-19 Clin Com 05/05/22 05/05/22 05/05/22 Range/Units 11:09 11:09 14:19 WBC (4.8-10.8) X10*3/uL RBC (4.60-5.80) X10*6/uL Hgb (14.0-18.0) g/dl Hct (42.0-52.0) % MCV (80.0-98.0) fL MCH (27.0-33.0) pg MCHC (31.0-36.0) g/dl RDW (11.0-16.0) % Plt Count (160-400) X10*3/uL MPV (9.4-12.4) fL Immature Gran % (Auto) (0.0-0.4) % Neut % (Auto) (45-73) % Lymph % (Auto) (20-40) % [place] % (Auto) (2-11) % Eos % (Auto) (0-4) % Baso % (Auto) (0-2) % Lymph # (Auto) (1.2-4.9) X10*3/uL [place] # (Auto) (0.1-1.2) X10*3/uL Eos # (Auto) (0.0-0.4) X10*3/uL Baso # (Auto) (0.0-0.2) X10*3/uL Abs Immat Gran (auto) (0.00-0.03) X10*3/uL Absolute Neuts (auto) (2.0-8.3) x10*3/uL Absolute Nucleated RBC (0.0-0.012) X10*3/uL Nucleated RBC % (auto) (0.0-0.2) /100WBC Sodium (135-145) mmol/L Potassium (3.3-5.1) mmol/L Chloride (96-108) mmol/L Carbon Dioxide (22-29) mmol/L Anion Gap (12-20) BUN (9-16) mg/dL Creatinine (0.5-1.4) mg/dL Estim Creat Clear Calc Estimated GFR Random Glucose (60-115) mg/dL Calcium (8.4-10.2) mg/dL Total Bilirubin (0.0-1.0) mg/dL AST (5-37) U/L ALT (0-40) U/L Alkaline Phosphatase (39-117) U/L Troponin I High Sens 23.0 (<3.5-35.0) ng/L Total Protein (6.5-8.0) g/dL Albumin (3.5-5.0) g/dL Stool Occult Blood NEGATIVE (NEGATIVE) COVID-19 (RIGOBERTO) Negative (Negative) COVID-19 Clin Com See Note ECG Data Interpretation: Sinus at a rate of 64, right bundle kaushal block, LA interval 206, QRS 152, QTC 474, normal axis, no ST depression or elevation, unchanged each EKG from 12/01/2021 Discharge Plan Discharge Clinical Impression: Acute hypotension, Creatinine elevation Patient Disposition: Home, Self-Care Instructions: Hypotension (ED) Additional Instructions: PLEASE DO NOT TAKE YOUR LOSARTAN OR YOUR DOXAZOSIN UNTIL YOU ARE SEEN BY YOUR PRIMARY CARE PROVIDER ON SATURDAY Nuvia Crook's office should be calling you Saturday , do not take these to medications until you are seen by him. Please take all your other prescribed medication, and please go to your dialysis appointment on Saturday. If you have more dizziness, chest pain, shortness of breath, or any other new concerning symptoms, please return to emergency room POR FAVOR, NO TOME FENG LOSART?N O FENG DOXAZOSINA HASTA QUE FENG PROVEEDOR DE ATENCI?N PRIMARIA LO ATENDA EL . La oficina de Nuvia Crook deber?a llamarte el , no lleves estos medicamentos hasta que te ariel. [place] todos los dem?s medicamentos recetados y acuda a feng blank de di?lisis el . Si tiene m?s mareos, dolor en el pecho, dificultad para respirar o cualquier otro s?ntoma preocupante nuevo, regrese a la amarilys de emergencias. Prescriptions: No Action (DME) pen needle, diabetic [BD Ultra-Fine Silvia Pen Needle] 32 gauge x 5/32 needle See Rx Instructions .ROUTE .MEDSUPPLY Qty: 150 11RF Rx Instructions: As directed five times a day doxazosin 2 mg tablet 2 mg PO DAILY Qty: 90 1RF torsemide 20 mg tablet 80 mg PO BID 90 Days Qty: 720 1RF atorvastatin 80 mg tablet 1 tab PO BEDTIME carvedilol 25 mg tablet 1 tab PO BID gabapentin 600 mg tablet 600 mg PO BEDTIME perphenazine 2 mg tablet 1 tab PO BID sertraline 100 mg tablet 2 tab PO DAILY oxcarbazepine 300 mg tablet 1 tab PO BID nifedipine 30 mg tablet extended release 4 tab PO BEDTIME omeprazole 40 mg capsule,delayed release(DR/EC) 1 cap PO DAILY aspirin 81 mg tablet,delayed release (DR/EC) 1 tab PO DAILY tramadol 50 mg tablet 2 tab PO Q8H PRN (Reason: Pain) isosorbide mononitrate 60 mg tablet extended release 24 hr 2 tab PO DAILY perphenazine 4 mg tablet 1 tab PO BID zolpidem 10 mg tablet 1 tab PO BEDTIME PRN (Reason: Insomnia) insulin aspart U-100 [Novolog Flexpen U-100 Insulin] 100 unit/mL (3 mL) insulin pen 10 unit subcut DAILY Rx Instructions: 10 units breakfast, 16 units lunch, 24 units dinner cholecalciferol (vitamin D3) 25 mcg (1,000 unit) tablet 2 tab PO DAILY icosapent ethyl [Vascepa] 1 gram capsule 2 cap PO BID Toujeo Max U-300 SoloStar 300 unit/mL (3 mL) insulin pen 50 unit subcut DAILY albuterol sulfate [Ventolin HFA] 90 mcg/actuation HFA aerosol inhaler 2 puff PO Q4H PRN (Reason: Shortness Of Breath) insulin aspart U-100 [Novolog Flexpen U-100 Insulin] 100 unit/mL (3 mL) insulin pen 16 unit subcut QNOON insulin aspart U-100 [Novolog Flexpen U-100 Insulin] 100 unit/mL (3 mL) insulin pen 24 unit subcut DAILY@1700 losartan 50 mg Tablet 50 mg PO DAILY Qty: 30 0RF Protocol: Hold for SBP< HOLD for SBP < : 90 Print Language: [place]
--- NOTE | 2022-05-05 10:35 | ECG_ITS ---
Test Reason : HEADACHE/ DISSY Blood Pressure : / mmHG Vent. Rate : 064 BPM Atrial Rate : 064 BPM P-R Int : 206 ms QRS Dur : 152 ms QT Int : 460 ms P-R-T Axes : 019 -52 025 degrees QTc Int : 474 ms Normal sinus rhythm Right bundle branch block Left anterior fascicular block Bifascicular block Minimal voltage criteria for LVH, may be normal variant ( R in aVL ) Abnormal ECG When compared with ECG of 01-DEC-2021 02:01, No significant change was found Referred By: Latonia Pinedo Electronically Signed By:Davon Olivares
[2022-05-05] MEDS: 0.9 % Sodium Chloride 500 ML IV ×2 (11:12→12:47)
[2022-05-05 11:18] LABS: MANUAL DIFF FLAG NO
[2022-05-05 11:19] LABS: OBS Int Ctl Valid YES; OBS1 NEGATIVE (NEGATIVE)
[2022-05-05] MEDS: Acetaminophen 325 MG TABLET 975 MG PO (11:20)
[2022-05-05 11:21] LABS: Basophils Percent Auto 0.4 % (0-2); Eosinophils Absolute Auto 0.3 X10*3/uL (0.0-0.4); Eosinophils Percent Auto 3.7 % (0-4); Hematocrit 27.2 % (42.0-52.0); Imm Gran Abs Auto 0.05 X10*3/uL (0.00-0.03); Imm Gran Pct Auto 0.7 % (0.0-0.4); Lymphocytes Absolute Auto 1.3 X10*3/uL (1.2-4.9); Lymphocytes Percent Auto 19.3 % (20-40); Mean Corpuscular Volume 96.8 fL (80.0-98.0); Mean Platelet Volume 11.8 fL (9.4-12.4); Monocytes Absolute Auto 0.4 X10*3/uL (0.1-1.2); Neutrophils Absolute Auto 4.9 x10*3/uL (2.0-8.3); Neutrophils Percent Auto 70.9 % (45-73); Platelet Count 137 X10*3/uL (160-400); Red Blood Count 2.81 X10*6/uL (4.60-5.80); Red Cell Distribution Width 15.2 % (11.0-16.0); SCAN SMEAR FLAG 1
[2022-05-05 11:22] VITALS: BP 90/29; PULSE 62; RESP 14; O2SAT 98
[2022-05-05 11:33] LABS: Hemoglobin 9.1 g/dl (14.0-18.0)
[2022-05-05 11:34] LABS: COVID-19 Test Negative (Negative); Mean Corpuscular Hemoglobin 32.4 pg (27.0-33.0)
[2022-05-05 11:58] LABS: Alanine Aminotransferase 22 U/L (0-40); Albumin Level 4.6 g/dL (3.5-5.0); Alkaline Phosphatase 103 U/L (39-117); Anion Gap 21 (12-20); Aspartate Amino Transferase 27 U/L (5-37); Bilirubin Total 0.4 mg/dL (0.0-1.0); Blood Urea Nitrogen 40 mg/dL (9-16); Calcium 8.5 mg/dL (8.4-10.2); Carbon Dioxide 24 mmol/L (22-29); Chloride 99 mmol/L (96-108); Creatinine Clr Calc Pharmacy 7.9; Estimated Glomerular Filt Rate 4; Glucose Random 176 mg/dL (60-115); Potassium 4.3 mmol/L (3.3-5.1); Sodium 140 mmol/L (135-145); Total Protein 8.2 g/dL (6.5-8.0)
[2022-05-05 12:16] LABS: Troponin-I High Sensitivity 25.3 ng/L (<3.5-35.0)
[2022-05-05 14:00] VITALS: BP 120/36; PULSE 57; RESP 10; O2SAT 96
== END 2022-05-05 15:37 | disposition home or self-care (01) ==
PROVIDERS: Physician Assistant; Emergency Provider Emergency Medicine; PCP Nurse Practitioner Primary Care
DX: I95.9 Hypotension, unspecified (principal); R94.4 Abnormal results of kidney function studies; R42 Dizziness and giddiness; R51.9 Headache, unspecified; Z20.822 Contact with and (suspected) exposure to COVID-19; E11.22 Type 2 diabetes mellitus with diabetic chronic kidney disease; I13.2 Hypertensive heart and chronic kidney disease with heart failure and with stage 5 chronic kidney disease, or end stage renal disease; I50.9 Heart failure, unspecified; N18.6 End stage renal disease; Z99.2 Dependence on renal dialysis; Z79.82 Long term (current) use of aspirin; Z79.899 Other long term (current) drug therapy
CPT/HCPCS: 36415; 70450; 80053; 82272; 84484; 85025; 87635; 93005; 96360; 96361; 99284

== ENCOUNTER 2022-05-24 10:59 | Day surgery (SDC) | payer OTHER, SELFPAY ==
[2022-05-24 11:54] LABS: MANUAL DIFF FLAG NO
[2022-05-24 11:56] LABS: Basophils Percent Auto 0.4 % (0-2); Eosinophils Absolute Auto 0.2 X10*3/uL (0.0-0.4); Eosinophils Percent Auto 3.5 % (0-4); Hematocrit 28.2 % (42.0-52.0); Hemoglobin 10.3 g/dl (14.0-18.0); Imm Gran Abs Auto 0.02 X10*3/uL (0.00-0.03); Imm Gran Pct Auto 0.3 % (0.0-0.4); Lymphocytes Absolute Auto 1.7 X10*3/uL (1.2-4.9); Lymphocytes Percent Auto 24.8 % (20-40); Mean Corpuscular HGB Conc 36.5 g/dl (31.0-36.0); Mean Corpuscular Hemoglobin 35.3 pg (27.0-33.0); Mean Corpuscular Volume 96.6 fL (80.0-98.0); Mean Platelet Volume 11.1 fL (9.4-12.4); Monocytes Absolute Auto 0.5 X10*3/uL (0.1-1.2); Monocytes Percent Auto 7.4 % (2-11); Neutrophils Absolute Auto 4.4 x10*3/uL (2.0-8.3); Neutrophils Percent Auto 63.6 % (45-73); Platelet Count 137 X10*3/uL (160-400); Red Blood Count 2.92 X10*6/uL (4.60-5.80); Red Cell Distribution Width 13.9 % (11.0-16.0); White Blood Count 6.9 X10*3/uL (4.8-10.8)
[2022-05-24 12:05] LABS: Prothrombin Time 11.7 SEC (10.0-13.1)
[2022-05-24 12:18] LABS: Glucose, Whole Blood 85 mg/dL (60-115)
[2022-05-24 12:25] LABS: Anion Gap 15 (12-20); Blood Urea Nitrogen 33 mg/dL (9-16); Calcium 8.6 mg/dL (8.4-10.2); Carbon Dioxide 30 mmol/L (22-29); Chloride 97 mmol/L (96-108); Estimated Glomerular Filt Rate 5; Glucose Random 101 mg/dL (60-115); Potassium 4.1 mmol/L (3.3-5.1); Sodium 138 mmol/L (135-145)
[2022-05-24 12:36] VITALS: BP 139/49; PULSE 56; RESP 18; TEMP 36.7; O2SAT 99
[2022-05-24 12:38] VITALS: BMI 33.5
--- NOTE | 2022-05-24 13:02 | P.CONAN_ITS ---
[facility] Active Problems Active Problems: All Active Problems (Updated 05/06/22 @ 00:02 by Pamella Sesay) Diabetes type 2, uncontrolled (Acute) Essential hypertension (Acute) Acute on chronic heart failure with preserved ejection fraction (HFpEF) (Acute) Duodenal ulcer disease (Acute) Varicose veins of right lower extremity with inflammation (Acute) PAD (peripheral artery disease) (Acute) Acute kidney injury superimposed on chronic kidney disease (Acute) Past Medical History Medical History Abnormal biopsy of kidney Anemia Anxiety Asthma CHF (congestive heart failure) CHF exacerbation Chronic kidney disease, stage 4 (severe) CKD (chronic kidney disease) stage 4, GFR 15-29 ml/min Congestive heart failure COPD (chronic obstructive pulmonary disease) Depression Depression with anxiety Diabetes mellitus with hyperglycemia, with long-term current use of insulin Diabetes type 2, uncontrolled Diastolic dysfunction Diverticulitis Elevated cholesterol Erectile dysfunction ESRD (end stage renal disease) on dialysis Essential hypertension Heart failure with preserved ejection fraction History of alcohol abuse History of headache HTN (hypertension) HTN (hypertension) Hx of pancreatitis Hyperglycemia Hypertension Hypertensive crisis Hypertriglyceridemia On beta doron at home Pancreatitis Peptic ulcer Proteinuria Sleep apnea Type 2 diabetes mellitus with chronic kidney disease Type 2 diabetes mellitus with hyperglycemia, with long-term current use of insulin Type 2 diabetes mellitus with polyneuropathy Type 2 diabetes mellitus with unspecified complications Family History Family History Mother Diabetes Family history of problems with anesthesia: No Surgical History Surgical History History of surgery Hx of colonoscopy Hx of right inguinal hernia repair History of Problems with Anesthesia: No Social History Social History Household Members: None Housing: House Are you a primary palliative care nurse practitioner to a significant other at home: No Do you presently have visiting nurse or other home services: Yes ([employer]) Alcohol intake: never Patient Tobacco Use Status: Former Tobacco user Quit Date: 2017 Tobacco use type: Cigarette Years Smoked: 30 Second Hand Smoke Exposure: Yes Advance Directives: No Advance Directives Information Provided: Yes service: No Current occupational status: retired Meds Allergies Allergy/AdvReac Type Severity Reaction Status Date / Time No Known Allergies Allergy Verified 12/01/21 01:50 Home Medications Medication Instructions Recorded Confirmed Last Taken Type albuterol sulfate 90 mcg/actuation 2 puff PO Q4H PRN Shortness Of 12/01/21 12/01/21 Unknown History aerosol inhaler (Ventolin HFA) Breath aspirin 81 mg tablet,delayed 1 tab PO DAILY 12/01/21 12/01/21 12/01/21 History release atorvastatin 80 mg tablet 1 tab PO BEDTIME 12/01/21 12/01/21 11/30/21 History carvedilol 25 mg tablet 1 tab PO BID 12/01/21 12/01/21 12/01/21 History cholecalciferol (vitamin D3) 25 2 tab PO DAILY 12/01/21 12/01/21 12/01/21 History mcg (1,000 unit) tablet gabapentin 600 mg tablet 600 mg PO BEDTIME 12/01/21 12/01/21 11/30/21 History icosapent ethyl 1 gram capsule 2 cap PO BID 12/01/21 12/01/21 Unknown History (Vascepa) insulin aspart U-100 100 unit/mL 10 unit subcut DAILY 12/01/21 12/01/21 11/30/21 History (3 mL) subcutaneous pen (Novolog Flexpen U-100 Insulin aspart) insulin aspart U-100 100 unit/mL 16 unit subcut QNOON 12/01/21 12/01/21 11/30/21 History (3 mL) subcutaneous pen (Novolog Flexpen U-100 Insulin aspart) insulin aspart U-100 100 unit/mL 24 unit subcut DAILY@1700 12/01/21 12/01/21 11/30/21 History (3 mL) subcutaneous pen (Novolog Flexpen U-100 Insulin aspart) insulin glargine U-300 conc 300 50 unit subcut DAILY 12/01/21 12/01/21 Unknown History unit/mL (3 mL) subcutaneous pen (Toujeo Max U-300 SoloStar) nifedipine 30 mg tablet,extended 4 tab PO BEDTIME 12/01/21 12/01/21 11/30/21 History release omeprazole 40 mg capsule,delayed 1 cap PO DAILY 12/01/21 12/01/21 12/01/21 History release oxcarbazepine 300 mg tablet 1 tab PO BID 12/01/21 12/01/21 12/01/21 History perphenazine 2 mg tablet 1 tab PO BID 12/01/21 12/01/21 11/30/21 History perphenazine 4 mg tablet 1 tab PO BID 12/01/21 12/01/21 11/30/21 History sertraline 100 mg tablet 2 tab PO DAILY 12/01/21 12/01/21 11/30/21 History tramadol 50 mg tablet 2 tab PO Q8H PRN Pain 12/01/21 12/01/21 Unknown History zolpidem 10 mg tablet 1 tab PO BEDTIME PRN Insomnia 12/01/21 12/01/21 Unknown History Exam Exam Date and Time: May 24, 2022 1302 Height,Weight and Vital Signs: Height 5 ft 11 in Weight 108.862 kg Last Vital Signs Temp 98.1 F 05/24/22 12:36 Pulse 56 05/24/22 12:36 Resp 18 05/24/22 12:36 BP 139/49 L 05/24/22 12:36 Pulse Ox 99 05/24/22 12:36 O2 Del Method 05/24/22 12:36 Pertinent Lab Results Pertinent Lab Results: Laboratory Tests 05/24/22 05/24/22 05/24/22 11:50 11:50 11:50 WBC 6.9 RBC 2.92 L Hgb 10.3 L Hct 28.2 L MCV 96.6 MCH 35.3 H MCHC 36.5 H RDW 13.9 Plt Count 137 L MPV 11.1 Immature Gran % (Auto) 0.3 Neut % (Auto) 63.6 Lymph % (Auto) 24.8 [place] % (Auto) 7.4 Eos % (Auto) 3.5 Baso % (Auto) 0.4 Lymph # (Auto) 1.7 [place] # (Auto) 0.5 Eos # (Auto) 0.2 Baso # (Auto) 0.0 Abs Immat Gran (auto) 0.02 Absolute Neuts (auto) 4.4 Absolute Nucleated RBC 0.000 Nucleated RBC % (auto) 0.0 PT 11.7 INR 1.0 Sodium 138 Potassium 4.1 Chloride 97 Carbon Dioxide 30 H Anion Gap 15 BUN 33 H Creatinine 10.46 H* Estim Creat Clear Calc TNP Estimated GFR 5 POC Glucose Random Glucose 101 D Calcium 8.6 05/24/22 12:12 WBC RBC Hgb Hct MCV MCH MCHC RDW Plt Count MPV Immature Gran % (Auto) Neut % (Auto) Lymph % (Auto) [place] % (Auto) Eos % (Auto) Baso % (Auto) Lymph # (Auto) [place] # (Auto) Eos # (Auto) Baso # (Auto) Abs Immat Gran (auto) Absolute Neuts (auto) Absolute Nucleated RBC Nucleated RBC % (auto) PT INR Sodium Potassium Chloride Carbon Dioxide Anion Gap BUN Creatinine Estim Creat Clear Calc Estimated GFR POC Glucose 85 Random Glucose Calcium Airway Mallampati Class: IV TM Dist: >3cm Neck ROM: Full Partial: Lower Heart: rrr Lungs: clear Assessment and Plan Final Anesthetic Review Family History of Problems with Anesthesia: No History of Problems with Anesthesia: No NPO: Yes ASA Class: IV Final Preanesthetic Review: No Changes in Pt Med Stat, Meds/Allgs Chart Reviewed, Consent Obtained/Reviewed and Anes Risks/Benef Reviewed Patient Risk: High Procedure Risk: Low Anesthetic Plan Anesthetic Plan: MAC: Disposition: Standard PACU
[2022-05-24 16:02] VITALS: BP 130/45; PULSE 54; RESP 15; TEMP 36.6; O2SAT 100
[2022-05-24 16:17] VITALS: BP 133/47; PULSE 53; RESP 16; O2SAT 100
--- NOTE | 2022-05-24 16:31 | W.PM.OPN ---
Operative Note Operative Note Date of Service: 05/24/22 Narrative: Pre-op Dx: ESRD; malfunctioning left arm AV fistula Post-op Dx: ESRD; malfunctioning left arm AV fistula Operation: left arm fistulagram and fistulaplasty (brachiocephalic AV fistula) Surgeon: Marichuy Wall Procedure: The patient was placed on the OR table in a supine position with the left arm prepped and draped in a sterile fashion. A surgical timeout took place. The fistula was accessed on the arterial side with a 16G angiocath. A fistulagram was performed, visualizing the arterial anastomosis, the outflow cephalic vein, the cephalic arch, the subclavian vein and central veins leading to the SVC. A 60% narrowing was noted in the cephalic arch. A glide wire was placed and the cephalic arch was angioplastied using an 8mm x 40mm balloon. A completion fistulagram was performed showing improved flow through the cephalic arch. The puncture site was closed with a 5-0 chromic figure of eight stitch. The fistula felt good with a thrill. There was a palpable distal radial pulse.
[2022-05-24 16:32] VITALS: BP 128/48; PULSE 52; RESP 16; O2SAT 99
[2022-05-28] MEDS: iohexoL 350 MG/ML 100 ML INFUS..BTL IV (09:56)
[2022-06-11] MEDS: iohexoL 300 MG/ML 100 ML INFUS..BTL IV (15:34)
== END 2022-05-24 16:59 | disposition home or self-care (01) ==
PROVIDERS: PCP Nurse Practitioner Primary Care; Visit Provider Transplant Surgery
PROC: (CPT 36902; principal; 2022-05-24 14:30)
PROC: (CPT 36902; 2022-05-24 14:30)
DX: T82.590A Other mechanical complication of surgically created arteriovenous fistula, initial encounter (principal); Y82.8 Other medical devices associated with adverse incidents; Y92.9 Unspecified place or not applicable; Y83.2 Surgical operation with anastomosis, bypass or graft as the cause of abnormal reaction of the patient, or of later complication, without mention of misadventure at the time of the procedure; E11.22 Type 2 diabetes mellitus with diabetic chronic kidney disease; I13.2 Hypertensive heart and chronic kidney disease with heart failure and with stage 5 chronic kidney disease, or end stage renal disease; N18.6 End stage renal disease; I50.32 Chronic diastolic (congestive) heart failure; D64.9 Anemia, unspecified; Z99.2 Dependence on renal dialysis; F41.1 Generalized anxiety disorder; J44.9 Chronic obstructive pulmonary disease, unspecified; Z79.4 Long term (current) use of insulin; Z79.899 Other long term (current) drug therapy; Z87.891 Personal history of nicotine dependence
CPT/HCPCS: 36902; 36415; 36903; 80048; 82947; 85025; 85610; C1769; J2250; J3010; Q9967

== ENCOUNTER 2022-06-07 08:38 | Outpatient (REF) | payer OTHER, SELFPAY ==
[2022-06-07 12:19] LABS: Cholesterol 322 mg/dL; HDL Cholesterol 21 mg/dL
[2022-06-07 12:45] LABS: Triglycerides 1658 mg/dL
[2022-06-09 05:02] LABS: LDL Cholesterol Direct 56 mg/dL (<100)
== END 2022-06-07 08:39 | disposition home or self-care (01) ==
LOC: HO.10HDL 08:38
PROVIDERS: Visit Provider Internal Medicine
DX: E11.649 Type 2 diabetes mellitus with hypoglycemia without coma (principal)
CPT/HCPCS: 36415; 80061; 83721

== ENCOUNTER 2022-06-09 09:26 | Emergency (ER) | payer OTHER, SELFPAY ==
--- NOTE | ~2022-06-09 | CT_ITS ---
EXAMINATION: CT ABDOMEN AND PELVIS WITHOUT CONTRAST CLINICAL INFORMATION: Abdominal pain and vomiting COMPARISON: Previous CT of the abdomen and pelvis May 2021 TECHNIQUE: Multidetector volumetric imaging was performed from the superior aspect of the liver through the pubic symphysis. Sagittal and coronal reformatted images were obtained on the technologist's workstation. This CT examination was performed using dose optimization techniques as appropriate, variously including the following: *Automated exposure control *Adjustment of mA and/or kV according to patient size (this includes techniques or standardized protocols for targeted exams where dose is matched to indication/reason for exam; i.e. extremities or head) *Use of iterative reconstruction technique DLP: 727 mGy-cm FINDINGS: LUNG BASES: There is left pleural thickening and calcification that is stable. There is chronic subsegmental atelectasis in the adjacent left lower lobe that is stable. LIVER, GALLBLADDER, AND BILIARY TREE: The liver is upper normal in size. No focal hepatic lesion or biliary ductal dilatation is present. The gallbladder is unremarkable with no evidence of radiopaque gallstones, gallbladder wall thickening, or obvious pericholecystic inflammatory changes. PANCREAS: Unremarkable. SPLEEN: Upper normal in size measuring 12.8 cm in length. ADRENAL GLANDS: Unremarkable. KIDNEYS AND URETERS: The kidneys are normal in size, shape, and attenuation. No hydronephrosis, hydroureter, or calculi seen. No perinephric stranding. BLADDER: Unremarkable. GASTROINTESTINAL TRACT: There is mild diverticulosis. No evidence of diverticulitis is seen. The small and large bowel are otherwise unremarkable. The appendix is unremarkable. ABDOMINAL WALL: There is a left inguinal hernia containing fat. There is a small lipoma in the left paraspinal muscles of the left back. LYMPH NODES: Normal. VASCULAR: Unremarkable. PELVIC VISCERA: Unremarkable. OSSEOUS STRUCTURES: There are degenerative changes of the spine. CT/CT abdomen pelvis wo con IMPRESSION: No acute findings. Mild diverticulosis of the colon. Fleischner guidelines were followed.
[2022-06-09 09:30] VITALS: BP 139/67; PULSE 57; RESP 20; TEMP 36.6; O2SAT 97; BMI 32.8
--- NOTE | 2022-06-09 10:22 | ECG_ITS ---
Test Reason : CHEST PAIN Blood Pressure : / mmHG Vent. Rate : 052 BPM Atrial Rate : 052 BPM P-R Int : 206 ms QRS Dur : 146 ms QT Int : 478 ms P-R-T Axes : 064 -61 035 degrees QTc Int : 444 ms Sinus bradycardia Right bundle branch block Left anterior fascicular block Bifascicular block Minimal voltage criteria for LVH, may be normal variant ( R in aVL ) Abnormal ECG When compared with ECG of 05-MAY-2022 10:44, Nonspecific T wave abnormality no longer evident in Anterior leads Referred By: Diane Martinez Electronically Signed By:GUS GOOD
[2022-06-09 10:24] VITALS: BP 184/56; PULSE 54; O2SAT 97
--- NOTE | 2022-06-09 10:36 | ED_ITS ---
HPI - Nausea/Vomiting/Diarrhea General Chief complaint: Nausea/Vomiting/Diarrhea Stated complaint: vomiting/dizziness/headaches Time Seen by Provider: 06/09/22 10:15 Source: patient, old records reviewed and general intern Mode of arrival: ambulatory Limitations: no limitations History of Present Illness HPI Narrative: 61-year-old male with history of ESRD on HD M/W/F, dm 2, HTN, PVD, history of peptic ulcer disease, HFpEF who presents to the ER from home for evaluation of vomiting since yesterday morning. This is associated with middle abdominal pain. He reports the vomiting started after his dialysis session yesterday morning. He has been unable to eat or drink much of anything, or hold anything down since yesterday morning. He reports the pain is middle abdomen is constant, aching. It does not radiate. He denies any fevers but admits to chills. Denies any chest pain, shortness of breath, body aches, known sick contacts. His last bowel movement was yesterday and was normal. He denies any blood in his vomitus. He reports new onset of intermittent dizziness as well. This is worse with position changes. Resolved with lying down and rest. He denies any weakness, numbness, tingling. He denies any alcohol or drug use. MD elicited complaint: nausea, vomiting and abdominal pain Onset (ago): day(s) (1) Description of vomiting: watery and bilious Associated nausea: Yes Associated abdominal pain: Yes Location of pain: periumbilical Pain consistency: constant Severity: moderate Pain scale (0-10): 5 Quality: aching Exacerbating factors: eating Relieving factors: none Associated symptoms: fever/chills, loss of appetite, malaise, nausea/vomiting and weakness Related Data Home Medications Medication Instructions Recorded Confirmed albuterol sulfate 90 mcg/actuation 2 puff PO Q4H PRN Shortness Of 12/01/21 12/01/21 aerosol inhaler (Ventolin HFA) Breath aspirin 81 mg tablet,delayed 1 tab PO DAILY 12/01/21 12/01/21 release atorvastatin 80 mg tablet 1 tab PO BEDTIME 12/01/21 12/01/21 carvedilol 25 mg tablet 1 tab PO BID 12/01/21 12/01/21 cholecalciferol (vitamin D3) 25 2 tab PO DAILY 12/01/21 12/01/21 mcg (1,000 unit) tablet gabapentin 600 mg tablet 600 mg PO BEDTIME 12/01/21 12/01/21 insulin aspart U-100 100 unit/mL 10 unit subcut DAILY 12/01/21 12/01/21 (3 mL) subcutaneous pen (Novolog Flexpen U-100 Insulin aspart) insulin aspart U-100 100 unit/mL 16 unit subcut QNOON 12/01/21 12/01/21 (3 mL) subcutaneous pen (Novolog Flexpen U-100 Insulin aspart) insulin aspart U-100 100 unit/mL 24 unit subcut DAILY@1700 12/01/21 12/01/21 (3 mL) subcutaneous pen (Novolog Flexpen U-100 Insulin aspart) insulin glargine U-300 conc 300 50 unit subcut DAILY 12/01/21 12/01/21 unit/mL (3 mL) subcutaneous pen (Toujeo Max U-300 SoloStar) nifedipine 30 mg tablet,extended 4 tab PO BEDTIME 12/01/21 12/01/21 release omeprazole 40 mg capsule,delayed 1 cap PO DAILY 12/01/21 12/01/21 release oxcarbazepine 300 mg tablet 1 tab PO BID 12/01/21 12/01/21 perphenazine 2 mg tablet 1 tab PO BID 12/01/21 12/01/21 perphenazine 4 mg tablet 1 tab PO BID 12/01/21 12/01/21 sertraline 100 mg tablet 2 tab PO DAILY 12/01/21 12/01/21 tramadol 50 mg tablet 2 tab PO Q8H PRN Pain 12/01/21 12/01/21 zolpidem 10 mg tablet 1 tab PO BEDTIME PRN Insomnia 12/01/21 12/01/21 Previous Rx's Medication Instructions Recorded pen needle, diabetic 32 gauge x #150 ea 12/21/21 (BD Ultra-Fine Silvia Pen Needle) doxazosin 2 mg tablet 2 mg PO DAILY #90 tabs 04/06/22 torsemide 20 mg tablet 80 mg PO BID 90 days #720 tabs 04/06/22 isosorbide mononitrate 60 mg 120 mg PO QAM #60 tabs 05/16/22 tablet,extended release 24 hr losartan 50 mg tablet 50 mg PO DAILY #30 tabs 05/16/22 icosapent ethyl 1 gram capsule 2 g PO BID #120 caps 06/07/22 (Vascepa) ondansetron 4 mg disintegrating 4 mg PO Q8H PRN nausea and 06/09/22 tablet vomiting #7 tabs Allergies Allergy/AdvReac Type Severity Reaction Status Date / Time No Known Allergies Allergy Verified 12/01/21 01:50 Review of Systems Review of Systems: Constitutional: No Fever, + Chills ENT/Mouth: No sore throat, No Rhinorrhea, No Swallowing Difficulty Eyes: No Eye Pain, No Swelling, No Redness Cardiovascular: No Chest Pain, No SOB, No Orthopnea, No Edema Respiratory: No Cough, No Sputum, No Wheezing, No dyspnea Gastrointestinal: + Nausea, +Vomiting, No Diarrhea, + abdominal Pain, No Hematochezia, No Melena, no hematemesis Genitourinary: No Dysuria, No Urinary Frequency, No Hematuria Musculoskeletal: No joint pain, No Myalgias Skin: No Skin Lesions, No rash Neuro: + Weakness, No Numbness, + Dizziness, No Headache Psych: No Anxiety/Panic, No Depression Heme/Lymph: No Bruising, No Lymphadenopathy Endocrine: No Polyuria, No Polydipsia Gastrointestinal: Gastrointestinal: Reports nausea PMFSH Past Medical History Medical History Abnormal biopsy of kidney Anemia Anxiety Asthma CHF (congestive heart failure) CHF exacerbation Chronic kidney disease, stage 4 (severe) CKD (chronic kidney disease) stage 4, GFR 15-29 ml/min Congestive heart failure COPD (chronic obstructive pulmonary disease) Depression Depression with anxiety Diabetes mellitus with hyperglycemia, with long-term current use of insulin Diabetes type 2, uncontrolled Diastolic dysfunction Diverticulitis Elevated cholesterol Erectile dysfunction ESRD (end stage renal disease) on dialysis Essential hypertension Heart failure with preserved ejection fraction History of alcohol abuse History of headache HTN (hypertension) HTN (hypertension) Hx of pancreatitis Hyperglycemia Hypertension Hypertensive crisis Hypertriglyceridemia On beta doron at home Pancreatitis Peptic ulcer Proteinuria Sleep apnea Type 2 diabetes mellitus with chronic kidney disease Type 2 diabetes mellitus with hyperglycemia, with long-term current use of insulin Type 2 diabetes mellitus with polyneuropathy Type 2 diabetes mellitus with unspecified complications Surgical History History of surgery Hx of colonoscopy Hx of right inguinal hernia repair Family History Family History Mother Diabetes Social History Social History Household Members: None Housing: House Are you a primary rn coronary care unit to a significant other at home: No Do you presently have visiting nurse or other home services: Yes ([employer]) Alcohol intake: never Patient Tobacco Use Status: Former Tobacco user Quit Date: 2017 Tobacco use type: Cigarette Years Smoked: 30 Second Hand Smoke Exposure: Yes Advance Directives: No Advance Directives Information Provided: No service: No Current occupational status: retired Physical Exam Vital Signs: Vital Signs: Last Vital Signs Temp 97.8 F 06/09/22 09:30 Pulse 55 06/09/22 14:00 Resp 20 06/09/22 09:30 BP 154/62 H 06/09/22 14:00 Pulse Ox 95 06/09/22 12:00 O2 Del Method 06/09/22 12:00 BMI result Body Mass Index 32.8 Appearance: Alert. Oriented X3. No acute distress. Eyes: Pupils equal, round and reactive to light. ENT: Pharynx normal. Neck: Normal inspection. Neck supple. CVS: Normal heart rate and rhythm. Pulses normal. Respiratory: No respiratory distress. Breath sounds normal. Abdomen: Soft with central abdominal tenderness and slight guarding. No rebound. No right upper quadrant tenderness. Normal, active +BS x4 Skin: Skin warm and dry. Normal skin color. Normal skin turgor. No rashes. Extremities: No lower extremity edema. Neuro: Oriented X 3. No motor deficit. No sensory deficit. Course Course Course Narrative: 61-year-old male with history of end-stage renal disease on dialysis, heart failure, HTN, diabetes on insulin, PVD who presents to the ER with vomiting times 24 hours along with middle abdominal pain. On arrival to the ER he is hypertensive in the 180s systolic. He appears slightly dry on exam. He has middle abdominal tenderness with some slight guarding. Will check basic lab works up, gently hydrate with IV fluids, given antiemetic and get CT scan for further evaluation. Dispo pending results and improvement. Reevaluation(s) Reevaluation #1: Delay and labs due to difficult stick. IV was able to be placed and IV fluids were started however labs were unable to be obtained. Multiple staff members attempted, phlebotomy to the bedside however patient was out in the bathroom so they went to lunch. CT scan of the abdomen pending Reevaluation #2: CT scan of the abdomen is unremarkable, only diverticulosis. He feels are not from a nausea perspective but still has abdominal pain right in the middle of his abdomen. It now feels burning in nature. Will give him a GI cocktail and Prilosec. Give a p.o. trial. Labs were obtained via EJ. Reevaluation #3: Labs showing stable normocytic anemia, stable thrombocytopenia. No leukocytosis. LFTs and lipase are normal. His potassium was slightly elevated 5.3, he was given IV fluids for this. He is due for dialysis on Saturday. His CT scan showed diverticulosis without any diverticulitis. His nausea is improved. He is tolerating p.o. liquids and solids. No vomiting. At this time comfortable with discharge home with supportive care, p.r.n. Zoan and plan to follow-up on Saturday with HD Procedures EJ/Peripheral Line Neck L: Time Out Performed: Yes Skin Cleansed in Sterile Fashion: Yes Size (gauge): 20 IV Secured and Dressing Applied: Yes Patient Tolerated Procedure: well and no complications MDM - Nausea/Vomiting/Diarrhea Lab Data Result diagrams: 06/09/22 13:51 06/09/22 13:51 Labs: Lab Results 06/09/22 06/09/22 06/09/22 Range/Units 10:59 13:51 13:51 WBC 6.8 (4.8-10.8) X10*3/uL RBC 3.34 L (4.60-5.80) X10*6/uL Hgb 11.3 L (14.0-18.0) g/dl Hct 32.6 L (42.0-52.0) % MCV 97.6 (80.0-98.0) fL MCH 33.8 H (27.0-33.0) pg MCHC 34.7 (31.0-36.0) g/dl RDW 13.4 (11.0-16.0) % Plt Count 126 L (160-400) X10*3/uL MPV 11.3 (9.4-12.4) fL Immature Gran % (Auto) 0.3 (0.0-0.4) % Neut % (Auto) 65.2 (45-73) % Lymph % (Auto) 24.6 (20-40) % [place] % (Auto) 6.0 (2-11) % Eos % (Auto) 3.5 (0-4) % Baso % (Auto) 0.4 (0-2) % Lymph # (Auto) 1.7 (1.2-4.9) X10*3/uL [place] # (Auto) 0.4 (0.1-1.2) X10*3/uL Eos # (Auto) 0.2 (0.0-0.4) X10*3/uL Baso # (Auto) 0.0 (0.0-0.2) X10*3/uL Abs Immat Gran (auto) 0.02 (0.00-0.03) X10*3/uL Absolute Neuts (auto) 4.4 (2.0-8.3) x10*3/uL Absolute Nucleated RBC 0.000 (0.0-0.012) X10*3/uL Nucleated RBC % (auto) 0.0 (0.0-0.2) /100WBC Sodium 140 (135-145) mmol/L Potassium 5.3 H D (3.3-5.1) mmol/L Chloride 95 L (96-108) mmol/L Carbon Dioxide 31 H (22-29) mmol/L Anion Gap 19 (12-20) BUN 31 H (9-16) mg/dL Creatinine 9.69 H* (0.5-1.4) mg/dL Estim Creat Clear Calc 9.9 Estimated GFR 6 Random Glucose 93 (60-115) mg/dL Calcium 8.5 (8.4-10.2) mg/dL Phosphorus 4.6 H (2.7-4.5) mg/dL Magnesium 2.0 (1.6-2.6) mg/dL Total Bilirubin 0.4 (0.0-1.0) mg/dL Direct Bilirubin < 0.2 (0.0-0.5) mg/dL AST 17 (5-37) U/L ALT 13 (0-40) U/L Alkaline Phosphatase 92 (39-117) U/L Total Protein 7.9 (6.5-8.0) g/dL Albumin 4.4 (3.5-5.0) g/dL Lipase 17 (8-78) U/L COVID-19 (RIGOBERTO) Negative (Negative) COVID-19 Clin Com See Note Critical Care Time Critical Care Time Critical Care Time: No Discharge Plan Discharge Clinical Impression: Gastroenteritis Patient Disposition: Home, Self-Care Instructions: Gastroenteritis (ED) Additional Instructions: You lab workup today was unremarkable. Your CT scan did not show any acute abnormalities that would cause your vomiting. You most likely have a viral GI bug also known as gastroenteritis. Treatment is supportive care, symptoms usually resolve on their own in 48-72 hours. Recommend rest and plenty of oral hydration. Stick to a bland diet like soup and toast while you are not feeling well. Take the prescribed medication as needed for nausea. Follow up with your doctor as needed. If you develop new or worsening symptoms call 911 or come back to the ER for further evaluation. Prescriptions: New ondansetron 4 mg tablet,disintegrating 4 mg PO Q8H PRN (Reason: nausea and vomiting) Qty: 7 0RF No Action (DME) pen needle, diabetic [BD Ultra-Fine Silvia Pen Needle] 32 gauge x 5/32 needle See Rx Instructions .ROUTE .MEDSUPPLY Qty: 150 11RF Rx Instructions: As directed five times a day doxazosin 2 mg tablet 2 mg PO DAILY Qty: 90 1RF torsemide 20 mg tablet 80 mg PO BID 90 Days Qty: 720 1RF isosorbide mononitrate 60 mg tablet extended release 24 hr 120 mg PO QAM Qty: 60 5RF losartan 50 mg tablet 50 mg PO DAILY Qty: 30 5RF icosapent ethyl [Vascepa] 1 gram capsule 2 g PO BID Qty: 120 6RF atorvastatin 80 mg tablet 1 tab PO BEDTIME carvedilol 25 mg tablet 1 tab PO BID gabapentin 600 mg tablet 600 mg PO BEDTIME perphenazine 2 mg tablet 1 tab PO BID sertraline 100 mg tablet 2 tab PO DAILY oxcarbazepine 300 mg tablet 1 tab PO BID nifedipine 30 mg tablet extended release 4 tab PO BEDTIME omeprazole 40 mg capsule,delayed release(DR/EC) 1 cap PO DAILY aspirin 81 mg tablet,delayed release (DR/EC) 1 tab PO DAILY tramadol 50 mg tablet 2 tab PO Q8H PRN (Reason: Pain) perphenazine 4 mg tablet 1 tab PO BID zolpidem 10 mg tablet 1 tab PO BEDTIME PRN (Reason: Insomnia) insulin aspart U-100 [Novolog Flexpen U-100 Insulin] 100 unit/mL (3 mL) insulin pen 10 unit subcut DAILY Rx Instructions: 10 units breakfast, 16 units lunch, 24 units dinner cholecalciferol (vitamin D3) 25 mcg (1,000 unit) tablet 2 tab PO DAILY Toujeo Max U-300 SoloStar 300 unit/mL (3 mL) insulin pen 50 unit subcut DAILY albuterol sulfate [Ventolin HFA] 90 mcg/actuation HFA aerosol inhaler 2 puff PO Q4H PRN (Reason: Shortness Of Breath) insulin aspart U-100 [Novolog Flexpen U-100 Insulin] 100 unit/mL (3 mL) insulin pen 16 unit subcut QNOON insulin aspart U-100 [Novolog Flexpen U-100 Insulin] 100 unit/mL (3 mL) insulin pen 24 unit subcut DAILY@1700 Referrals: Nuvia Crook ELEVATOR REPAIR MECHANIC [Primary Care Provider] - Print Language: Estonian
[2022-06-09] MEDS: 0.9 % Sodium Chloride 500 ML 250 ML IVCONT (11:01)
[2022-06-09] MEDS: ondansetron HCL 4 MG/2 ML VIAL IVPUSH (11:30)
[2022-06-09 11:50] LABS: COVID-19 Test Negative (Negative)
[2022-06-09 12:00] VITALS: BP 158/58; PULSE 55; O2SAT 95
[2022-06-09 13:57] LABS: Basophils Percent Auto 0.4 % (0-2); Eosinophils Absolute Auto 0.2 X10*3/uL (0.0-0.4); Eosinophils Percent Auto 3.5 % (0-4); Hematocrit 32.6 % (42.0-52.0); Hemoglobin 11.3 g/dl (14.0-18.0); Imm Gran Abs Auto 0.02 X10*3/uL (0.00-0.03); Imm Gran Pct Auto 0.3 % (0.0-0.4); Lymphocytes Absolute Auto 1.7 X10*3/uL (1.2-4.9); Lymphocytes Percent Auto 24.6 % (20-40); MANUAL DIFF FLAG NO; Mean Corpuscular HGB Conc 34.7 g/dl (31.0-36.0); Mean Corpuscular Hemoglobin 33.8 pg (27.0-33.0); Mean Corpuscular Volume 97.6 fL (80.0-98.0); Mean Platelet Volume 11.3 fL (9.4-12.4); Monocytes Absolute Auto 0.4 X10*3/uL (0.1-1.2); Neutrophils Absolute Auto 4.4 x10*3/uL (2.0-8.3); Neutrophils Percent Auto 65.2 % (45-73); Platelet Count 126 X10*3/uL (160-400); Red Blood Count 3.34 X10*6/uL (4.60-5.80); Red Cell Distribution Width 13.4 % (11.0-16.0); White Blood Count 6.8 X10*3/uL (4.8-10.8)
[2022-06-09 14:00] VITALS: BP 154/62; PULSE 55
[2022-06-09 14:18] LABS: Alanine Aminotransferase 13 U/L (0-40); Albumin Level 4.4 g/dL (3.5-5.0); Alkaline Phosphatase 92 U/L (39-117); Anion Gap 19 (12-20); Aspartate Amino Transferase 17 U/L (5-37); Bilirubin Direct < 0.2 mg/dL (0.0-0.5); Bilirubin Total 0.4 mg/dL (0.0-1.0); Blood Urea Nitrogen 31 mg/dL (9-16); Calcium 8.5 mg/dL (8.4-10.2); Carbon Dioxide 31 mmol/L (22-29); Chloride 95 mmol/L (96-108); Creatinine Clr Calc Pharmacy 9.9; Estimated Glomerular Filt Rate 6; Glucose Random 93 mg/dL (60-115); Lipase 17 U/L (8-78); Phosphorus 4.6 mg/dL (2.7-4.5); Potassium 5.3 mmol/L (3.3-5.1); Sodium 140 mmol/L (135-145); Total Protein 7.9 g/dL (6.5-8.0)
[2022-06-09] MEDS: Lidocaine HCl Viscous 2 % 15 ML SOLUTION MUCOUS MEM (14:18)
[2022-06-09] MEDS: Magnesium Hydrox/Alum Hydrox 30 ML ORAL.SUSP PO (14:18)
[2022-06-09] MEDS: Omeprazole 40 MG CAPSULE.DR PO (14:18)
== END 2022-06-09 16:08 | disposition home or self-care (01) ==
PROVIDERS: Physician Assistant; Emergency Provider Student in an Organized Health Care Education/Training Program; PCP Nurse Practitioner Primary Care
DX: K52.9 Noninfective gastroenteritis and colitis, unspecified (principal); Z20.822 Contact with and (suspected) exposure to COVID-19; R11.10 Vomiting, unspecified; E11.22 Type 2 diabetes mellitus with diabetic chronic kidney disease; I13.2 Hypertensive heart and chronic kidney disease with heart failure and with stage 5 chronic kidney disease, or end stage renal disease; I50.9 Heart failure, unspecified; N18.6 End stage renal disease; Z99.2 Dependence on renal dialysis; Z79.02 Long term (current) use of antithrombotics/antiplatelets; Z79.4 Long term (current) use of insulin; Z79.899 Other long term (current) drug therapy; Z87.891 Personal history of nicotine dependence
CPT/HCPCS: 74176; 80048; 80076; 83690; 83735; 84100; 85025; 87635; 93005; 96361; 96374; 99284; J2405

== ENCOUNTER → 2022-06-20 14:19 | Outpatient (BNVA) | payer OTHER, SELFPAY | PROVIDERS: PCP Nurse Practitioner Primary Care; Visit Provider Internal Medicine Endocrinology, Diabetes & Metabolism | DX: E11.649 Type 2 diabetes mellitus with hypoglycemia without coma (principal); E11.319 Type 2 diabetes mellitus with unspecified diabetic retinopathy without macular edema; E11.42 Type 2 diabetes mellitus with diabetic polyneuropathy; E11.22 Type 2 diabetes mellitus with diabetic chronic kidney disease; N18.6 End stage renal disease; Z79.4 Long term (current) use of insulin; Z99.2 Dependence on renal dialysis | CPT/HCPCS: 82947; 83036; 99212 ==

== ENCOUNTER 2022-07-15 06:34 | Emergency (ER) | payer OTHER, SELFPAY ==
[2022-07-15 06:46] VITALS: BP 117/45; PULSE 75; RESP 18; TEMP 36.7; BMI 32.8
--- NOTE | 2022-07-15 09:17 | ED.HA ---
HPI - Headache General Chief Complaint: Headache Stated Complaint: headache that travels from back of head to eye Time Seen by Provider: 07/15/22 09:08 Source: patient and old records reviewed Mode of arrival: ambulatory Limitations: no limitations History of Present Illness HPI Narrative: 61-year-old male came in for scalp pain. Patient is complaining of pain on the top of his scalp in the frontal area for the past month and a half, pain is constant 5/10, pain is worsening by touching no relieving factor, declined any fever or chills. Patient declined any use of hair dye or trying a new shampoo or use soap, patient also declined rash or itching. Patient otherwise feels fine. Related Data Home Medications Medication Instructions Recorded Confirmed albuterol sulfate 90 mcg/actuation 2 puff PO Q4H PRN Shortness Of 12/01/21 12/01/21 aerosol inhaler (Ventolin HFA) Breath aspirin 81 mg tablet,delayed 1 tab PO DAILY 12/01/21 12/01/21 release atorvastatin 80 mg tablet 1 tab PO BEDTIME 12/01/21 12/01/21 carvedilol 25 mg tablet 1 tab PO BID 12/01/21 12/01/21 cholecalciferol (vitamin D3) 25 2 tab PO DAILY 12/01/21 12/01/21 mcg (1,000 unit) tablet gabapentin 600 mg tablet 600 mg PO BEDTIME 12/01/21 12/01/21 insulin aspart U-100 100 unit/mL 10 unit subcut DAILY 12/01/21 12/01/21 (3 mL) subcutaneous pen (Novolog Flexpen U-100 Insulin aspart) insulin aspart U-100 100 unit/mL 16 unit subcut QNOON 12/01/21 12/01/21 (3 mL) subcutaneous pen (Novolog Flexpen U-100 Insulin aspart) insulin glargine U-300 conc 300 50 unit subcut DAILY 12/01/21 12/01/21 unit/mL (3 mL) subcutaneous pen (Toujeo Max U-300 SoloStar) omeprazole 40 mg capsule,delayed 1 cap PO DAILY 12/01/21 12/01/21 release oxcarbazepine 300 mg tablet 1 tab PO BID 12/01/21 12/01/21 perphenazine 2 mg tablet 1 tab PO BID 12/01/21 12/01/21 perphenazine 4 mg tablet 1 tab PO BID 12/01/21 12/01/21 sertraline 100 mg tablet 2 tab PO DAILY 12/01/21 12/01/21 tramadol 50 mg tablet 2 tab PO Q8H PRN Pain 12/01/21 12/01/21 zolpidem 10 mg tablet 1 tab PO BEDTIME PRN Insomnia 12/01/21 12/01/21 blood sugar diagnostic (FreeStyle 06/20/22 Lite Strips) blood-glucose meter (FreeStyle 06/20/22 Lite Meter kit) insulin aspart U-100 100 unit/mL 28 unit subcut DAILY@1700 06/20/22 (3 mL) subcutaneous pen (Novolog Flexpen U-100 Insulin aspart) lancets 28 gauge (FreeStyle 06/20/22 Lancets) Previous Rx's Medication Instructions Recorded pen needle, diabetic 32 gauge x #150 ea 12/21/21 (BD Ultra-Fine Silvia Pen Needle) doxazosin 2 mg tablet 2 mg PO DAILY #90 tabs 04/06/22 torsemide 20 mg tablet 80 mg PO BID 90 days #720 tabs 04/06/22 isosorbide mononitrate 60 mg 120 mg PO QAM #60 tabs 05/16/22 tablet,extended release 24 hr icosapent ethyl 1 gram capsule 2 g PO BID #120 caps 06/07/22 (Vascepa) ondansetron 4 mg disintegrating 4 mg PO Q8H PRN nausea and 06/09/22 tablet vomiting #7 tabs carvedilol 25 mg tablet 25 mg PO BID #60 tabs 07/03/22 losartan 50 mg tablet 50 mg PO DAILY #30 tabs 07/03/22 nifedipine 30 mg tablet,extended 120 mg PO BEDTIME 90 days #360 tabs 07/04/22 release Allergies Allergy/AdvReac Type Severity Reaction Status Date / Time No Known Allergies Allergy Verified 07/15/22 06:46 Review of Systems Review of Systems: All other systems are reviewed and are negative Constitutional: Reports as per HPI and Reports no additional constitutional complaints Eyes: Reports as per HPI and Reports no additional eye complaints Reports system reviewed and no additional complaints, except as documented Cardiovascular: Reports as per HPI and Reports no additional cardiovascular complaints Respiratory: Reports as per HPI and Reports no additional respiratory complaints Gastrointestinal: Reports as per HPI and Reports no additional gastrointestinal complaints Genitourinary: Reports no additional female genitourinary complaints Musculoskeletal: Reports no additional musculoskeletal complaints Skin/Breast: Reports system reviewed and no additional complaints, except as docu Psychiatric: Reports no additional psychiatric complaints Endocrine: Reports no additional endocrine complaints Hematologic/Lymphatic: Reports no additional hematologic/lymphatic complaints Allergic/Immunologic: Reports no additional allergic/immunologic complaints Reports system reviewed and no additional complaints, except as documented and Reports Abnormal speech present [facility] Past Medical History Medical History Abnormal biopsy of kidney Anemia Anxiety Asthma CHF (congestive heart failure) CHF exacerbation Chronic kidney disease, stage 4 (severe) CKD (chronic kidney disease) stage 4, GFR 15-29 ml/min Congestive heart failure COPD (chronic obstructive pulmonary disease) Depression Depression with anxiety Diabetes mellitus with hyperglycemia, with long-term current use of insulin Diabetes type 2, uncontrolled Diastolic dysfunction Diverticulitis Elevated cholesterol Erectile dysfunction ESRD (end stage renal disease) on dialysis Essential hypertension Heart failure with preserved ejection fraction History of alcohol abuse History of headache HTN (hypertension) HTN (hypertension) Hx of pancreatitis Hyperglycemia Hypertension Hypertensive crisis Hypertriglyceridemia On beta doron at home Pancreatitis Peptic ulcer Proteinuria Sleep apnea Type 2 diabetes mellitus with chronic kidney disease Type 2 diabetes mellitus with hyperglycemia, with long-term current use of insulin Type 2 diabetes mellitus with polyneuropathy Type 2 diabetes mellitus with unspecified complications Surgical History History of surgery Hx of colonoscopy Hx of right inguinal hernia repair Family History Family History Mother Diabetes Social History Social History Household Members: None Housing: House Are you a primary career development manager to a significant other at home: No Do you presently have visiting nurse or other home services: Yes ([employer]) Alcohol intake: never Patient Tobacco Use Status: Former Tobacco user Quit Date: 2017 Tobacco use type: Cigarette Years Smoked: 30 Second Hand Smoke Exposure: Yes Advance Directives: No Advance Directives Information Provided: No service: No Current occupational status: retired Physical Exam Vital Signs: Vital Signs: Last Vital Signs Temp 98.1 F 07/15/22 06:46 Pulse 75 07/15/22 06:46 Resp 18 07/15/22 06:46 BP 117/45 L 07/15/22 06:46 O2 Del Method 07/15/22 06:46 BMI result Body Mass Index 32.8 Vital signs have been reviewed as appeared to be correct. Blood pressure normal. Heart rate normal. Respiration rate normal. Temperature normal. Oxygen saturation normal. Appearance: Alert. Oriented X3. No acute distress. Head: Normal external exam. Normocephalic. Atraumatic. No Rico signs noted. No raccoon eyes noted, tenderness to touch over frontal area of the scalp, no rash or vesicles is appreciated, no fluctuation. Eyes: PERRLA. EOMI. Conjunctiva and sclera normal. Eyelids normal. ENT: TM's Normal. Pharynx normal. Uvula midline. Moist mucous membranes. No trismus noted. No drooling noted. No muffled voice noted. Neck: Normal inspection. Neck supple. FROM. No adenopathy. Thyroid Normal. No meningeal signs. No neck mass noted. CVS: Normal heart rate and rhythm. Heart sound normal. No murmurs noted. Pulses normal throughout. Respiratory: No respiratory distress. Painless inspiration. Breath sounds normal. No wheezes/rales/rhonchi noted. Chest nontender. No accessory muscle usage noted or decreased air movement noted. Abdomen: Soft and nontender. Bowel sounds normal in all 4 quadrants. No distention noted. No organomegaly noted. No visible injury noted. Back: No CVA tenderness. Full range of motion noted. Skin: Skin warm and dry. Normal skin color. Normal skin turgor. No rashes/lesions/lacerations noted. Extremities: No lower extremity edema. Extremities exhibit normal range of motion. Extremities nontender. Neuro: Oriented X 3. Cranial nerve exam: II-XII are grossly intact No motor deficit. No sensory deficit. Reflexes normal. Course Course Course Narrative: Scalp rotation for month and a half exam showing no allergic reaction or contact dermatitis or shingles. Recommending Tylenol if needed for pain. It is Discharge Plan Discharge Clinical Impression: Scalp irritation Patient Disposition: Home, Self-Care Instructions: Dermatitis (ED) Additional Instructions: Apply cold compression on the scalp, use Tylenol on p.r.n. pain. Prescriptions: No Action (DME) pen needle, diabetic [BD Ultra-Fine Silvia Pen Needle] 32 gauge x 5/32 needle See Rx Instructions .ROUTE .MEDSUPPLY Qty: 150 11RF Rx Instructions: As directed five times a day doxazosin 2 mg tablet 2 mg PO DAILY Qty: 90 1RF torsemide 20 mg tablet 80 mg PO BID 90 Days Qty: 720 1RF isosorbide mononitrate 60 mg tablet extended release 24 hr 120 mg PO QAM Qty: 60 5RF icosapent ethyl [Vascepa] 1 gram capsule 2 g PO BID Qty: 120 6RF carvedilol 25 mg tablet 25 mg PO BID Qty: 60 3RF Rx Instructions: must administer with a meal/food losartan 50 mg tablet 50 mg PO DAILY Qty: 30 5RF nifedipine 30 mg tablet extended release 120 mg PO BEDTIME 90 Days Qty: 360 1RF ondansetron 4 mg tablet,disintegrating 4 mg PO Q8H PRN (Reason: nausea and vomiting) Qty: 7 0RF atorvastatin 80 mg tablet 1 tab PO BEDTIME carvedilol 25 mg tablet 1 tab PO BID gabapentin 600 mg tablet 600 mg PO BEDTIME perphenazine 2 mg tablet 1 tab PO BID sertraline 100 mg tablet 2 tab PO DAILY oxcarbazepine 300 mg tablet 1 tab PO BID omeprazole 40 mg capsule,delayed release(DR/EC) 1 cap PO DAILY aspirin 81 mg tablet,delayed release (DR/EC) 1 tab PO DAILY tramadol 50 mg tablet 2 tab PO Q8H PRN (Reason: Pain) perphenazine 4 mg tablet 1 tab PO BID zolpidem 10 mg tablet 1 tab PO BEDTIME PRN (Reason: Insomnia) insulin aspart U-100 [Novolog Flexpen U-100 Insulin] 100 unit/mL (3 mL) insulin pen 10 unit subcut DAILY Rx Instructions: 10 units breakfast, 16 units lunch, 24 units dinner cholecalciferol (vitamin D3) 25 mcg (1,000 unit) tablet 2 tab PO DAILY Toujeo Max U-300 SoloStar 300 unit/mL (3 mL) insulin pen 50 unit subcut DAILY albuterol sulfate [Ventolin HFA] 90 mcg/actuation HFA aerosol inhaler 2 puff PO Q4H PRN (Reason: Shortness Of Breath) insulin aspart U-100 [Novolog Flexpen U-100 Insulin] 100 unit/mL (3 mL) insulin pen 16 unit subcut QNOON insulin aspart U-100 [Novolog Flexpen U-100 Insulin] 100 unit/mL (3 mL) insulin pen 28 unit subcut DAILY@1700 (DME) blood-glucose meter [FreeStyle Lite Meter] Kit See Rx Instructions .ROUTE Rx Instructions: As directed (DME) FreeStyle Lite Strips Strip See Rx Instructions .ROUTE Rx Instructions: As directed (DME) lancets [FreeStyle Lancets] 28 gauge misc See Rx Instructions .ROUTE Rx Instructions: As directed Referrals: Nuvia Crook DATABASE SOFTWARE TECHNICIAN [Primary Care Provider] -
[2022-07-15] MEDS: Acetaminophen 325 MG TABLET 650 MG PO (09:23)
[2022-07-15 09:28] VITALS: BP 124/91; PULSE 81; RESP 16; TEMP 36.9; O2SAT 96
== END 2022-07-15 09:55 | disposition home or self-care (01) ==
PROVIDERS: Emergency Provider Emergency Medicine; PCP Nurse Practitioner Primary Care
DX: R21 Rash and other nonspecific skin eruption (principal); R51.9 Headache, unspecified; Z87.891 Personal history of nicotine dependence; Z79.899 Other long term (current) drug therapy
CPT/HCPCS: 99283; 99284

== ENCOUNTER → 2022-07-26 09:46 | Outpatient (BNVA) | payer OTHER, SELFPAY | PROVIDERS: PCP Nurse Practitioner Primary Care; Visit Provider Registered Nurse Diabetes Educator | DX: E11.649 Type 2 diabetes mellitus with hypoglycemia without coma (principal) | CPT/HCPCS: 99211 ==

== ENCOUNTER 2022-07-27 14:57 | Emergency (ER) | payer OTHER, SELFPAY ==
--- NOTE | ~2022-07-27 | CT_ITS ---
EXAMINATION: CT HEAD WITHOUT CONTRAST CLINICAL INFORMATION: Intractable headache COMPARISON: CT head 05/15/2022 TECHNIQUE: Contiguous axial imaging was performed from the skull base to vertex without intravenous administration of contrast. Coronal and sagittal reformatted images are performed at the CT scanner. [This CT examination was performed using dose optimization techniques as appropriate, variously including the following: *Automated exposure control *Adjustment of mA and/or kV according to patient size (this includes techniques or standardized protocols for targeted exams where dose is matched to indication/reason for exam; i.e. extremities or head) *Use of iterative reconstruction technique] DLP: 721 mGy-cm. FINDINGS: There is no evidence of acute intracranial hemorrhage or territorial infarction. No abnormal mass-effect or midline shift is seen. Jj to white matter differentiation is well preserved. No extra-axial fluid collections are identified. The ventricles are normal in size. There is no abnormal attenuation within the brain parenchyma. There is no osseous abnormality. Small volume of fluid in the dependent right mastoid air cells. This is similar to prior CAT scan 05/05/2022. Middle ear cavities are normally aerated. Normal aeration of partially visualized paranasal sinuses CT/CT head/brain wo IV con IMPRESSION: 1. No acute intracranial pathology. 2. Stable right mastoid effusion.
[2022-07-27 15:00] VITALS: BP 114/53; BP 160/70; PULSE 75; PULSE 88; RESP 16; TEMP 37.3; O2SAT 100; BMI 33.7
--- NOTE | 2022-07-27 15:28 | ED_ITS ---
HPI - Headache General Chief Complaint: Headache Stated Complaint: HEADACHE X 3 WEEKS Time Seen by Provider: 07/27/22 15:27 Source: patient Mode of arrival: ambulatory Limitations: no limitations History of Present Illness HPI Narrative: Patient presents emergency department for evaluation of head pain. Reports pain is localized to the top of the head from front to back. Has been ongoing for many weeks. States he was seen here initially and advised to go home and take a cold shower which did not help. He has trial Tylenol as well. States that his head is very tender even to the slightest touch, or with any movement of the hair. Denies dizziness, lightheadedness, neck pain, neck stiffness, vision changes, chest pain, palpitations, shortness of breath, difficulty breathing, numbness or tingling to the extremities, generalized weakness. Related Data Home Medications Medication Instructions Recorded Confirmed albuterol sulfate 90 mcg/actuation 2 puff PO Q4H PRN Shortness Of 12/01/21 12/01/21 aerosol inhaler (Ventolin HFA) Breath aspirin 81 mg tablet,delayed 1 tab PO DAILY 12/01/21 12/01/21 release atorvastatin 80 mg tablet 1 tab PO BEDTIME 12/01/21 12/01/21 carvedilol 25 mg tablet 1 tab PO BID 12/01/21 12/01/21 cholecalciferol (vitamin D3) 25 2 tab PO DAILY 12/01/21 12/01/21 mcg (1,000 unit) tablet gabapentin 600 mg tablet 600 mg PO BEDTIME 12/01/21 12/01/21 insulin aspart U-100 100 unit/mL 10 unit subcut DAILY 12/01/21 12/01/21 (3 mL) subcutaneous pen (Novolog Flexpen U-100 Insulin aspart) insulin aspart U-100 100 unit/mL 16 unit subcut QNOON 12/01/21 12/01/21 (3 mL) subcutaneous pen (Novolog Flexpen U-100 Insulin aspart) insulin glargine U-300 conc 300 50 unit subcut DAILY 12/01/21 12/01/21 unit/mL (3 mL) subcutaneous pen (Toujeo Max U-300 SoloStar) omeprazole 40 mg capsule,delayed 1 cap PO DAILY 12/01/21 12/01/21 release oxcarbazepine 300 mg tablet 1 tab PO BID 12/01/21 12/01/21 perphenazine 2 mg tablet 1 tab PO BID 12/01/21 12/01/21 perphenazine 4 mg tablet 1 tab PO BID 12/01/21 12/01/21 sertraline 100 mg tablet 2 tab PO DAILY 12/01/21 12/01/21 tramadol 50 mg tablet 2 tab PO Q8H PRN Pain 12/01/21 12/01/21 zolpidem 10 mg tablet 1 tab PO BEDTIME PRN Insomnia 12/01/21 12/01/21 blood sugar diagnostic (FreeStyle 06/20/22 Lite Strips) blood-glucose meter (FreeStyle 06/20/22 Lite Meter kit) insulin aspart U-100 100 unit/mL 28 unit subcut DAILY@1700 06/20/22 (3 mL) subcutaneous pen (Novolog Flexpen U-100 Insulin aspart) lancets 28 gauge (FreeStyle 06/20/22 Lancets) Previous Rx's Medication Instructions Recorded pen needle, diabetic 32 gauge x #150 ea 12/21/21 (BD Ultra-Fine Silvia Pen Needle) doxazosin 2 mg tablet 2 mg PO DAILY #90 tabs 04/06/22 torsemide 20 mg tablet 80 mg PO BID 90 days #720 tabs 04/06/22 isosorbide mononitrate 60 mg 120 mg PO QAM #60 tabs 05/16/22 tablet,extended release 24 hr icosapent ethyl 1 gram capsule 2 g PO BID #120 caps 06/07/22 (Vascepa) ondansetron 4 mg disintegrating 4 mg PO Q8H PRN nausea and 06/09/22 tablet vomiting #7 tabs carvedilol 25 mg tablet 25 mg PO BID #60 tabs 07/03/22 losartan 50 mg tablet 50 mg PO DAILY #30 tabs 07/03/22 nifedipine 30 mg tablet,extended 120 mg PO BEDTIME 90 days #360 tabs 07/04/22 release cephalexin 500 mg capsule 500 mg PO QID 7 days #28 caps 07/27/22 Allergies Allergy/AdvReac Type Severity Reaction Status Date / Time No Known Allergies Allergy Verified 07/15/22 06:46 Review of Systems Review of Systems: Constitutional : No Fever, No Chills, No Fatigue ENT/Mouth : No sore throat, No Rhinorrhea Eyes: No Eye Pain, No Swelling, No Redness Cardiovascular : No Chest Pain, No SOB, No Dyspnea on Exertion Respiratory : No Cough, No Sputum Gastrointestinal : No Nausea, No Vomiting, No Diarrhea, No abdominalPain Genitourinary : No Dysuria, No Urinary Frequency, No Hematuria, Musculoskeletal : No joint pain, No Myalgias, No Joint Swelling Skin : No Skin Lesions, No rash Neuro : No Weakness, No Numbness, No Dizziness, positive Headache Psych : No Anxiety/Panic, No Depression Heme/Lymph: No Bruising, No Bleeding,No Lymphadenopathy Endocrine : No Polyuria, No Polydipsia [facility] Past Medical History Attestation statement: The following information was validated with the patient. Source: old records reviewed Medical History Abnormal biopsy of kidney Anemia Anxiety Asthma CHF (congestive heart failure) CHF exacerbation Chronic kidney disease, stage 4 (severe) CKD (chronic kidney disease) stage 4, GFR 15-29 ml/min Congestive heart failure COPD (chronic obstructive pulmonary disease) Depression Depression with anxiety Diabetes mellitus with hyperglycemia, with long-term current use of insulin Diabetes type 2, uncontrolled Diastolic dysfunction Diverticulitis Elevated cholesterol Erectile dysfunction ESRD (end stage renal disease) on dialysis Essential hypertension Heart failure with preserved ejection fraction History of alcohol abuse History of headache HTN (hypertension) HTN (hypertension) Hx of pancreatitis Hyperglycemia Hypertension Hypertensive crisis Hypertriglyceridemia On beta doron at home Pancreatitis Peptic ulcer Proteinuria Sleep apnea Type 2 diabetes mellitus with chronic kidney disease Type 2 diabetes mellitus with hyperglycemia, with long-term current use of insulin Type 2 diabetes mellitus with polyneuropathy Type 2 diabetes mellitus with unspecified complications Surgical History History of surgery Hx of colonoscopy Hx of right inguinal hernia repair Family History Family History Mother Diabetes Social History Social History Household Members: None Housing: House Are you a primary post anesthesia care unit nurse to a significant other at home: No Do you presently have visiting nurse or other home services: Yes ([employer]) Alcohol intake: never Patient Tobacco Use Status: Current someday Tobacco user Tobacco use type: Cigarette Years Smoked: 30 Second Hand Smoke Exposure: Yes Use of substances other than those prescribed or required for medical reasons: No Advance Directives: No Advance Directives Information Provided: No service: No Current occupational status: retired Physical Exam Vital Signs: Vital Signs: Last Vital Signs Temp 98.7 F 07/27/22 16:27 Pulse 76 07/27/22 17:38 Resp 18 07/27/22 17:38 BP 124/43 L 07/27/22 17:38 Pulse Ox 97 07/27/22 17:38 O2 Del Method 07/27/22 17:38 BMI result Body Mass Index 33.7 Appearance: Alert.?Oriented to person, place and time. No acute distress. ?Normal affect. Head: Normocephalic. No rashes. No lesions. No erythema. Eyes: Pupils equal, round and reactive to light.? ENT: Pharynx normal.?? Neck: Normal inspection.? Neck supple.?? CVS: Heart sounds normal. Normal heart rate and rhythm.? Pulses normal.?? Respiratory: No respiratory distress.? Lung sounds clear to auscultation bilaterally?? Abdomen: Soft and non-tender. Normoactive bowel sounds. Skin: Skin warm and dry.? Normal skin color.? Extremities: No lower extremity edema.? Neuro: Moves all extremities spontaneously. Sensation intact bilaterally. CN II- XII intact. No focal neuro deficits. Ambulates with normal steady gait. Course Course Course Narrative: Patient is a 61-year-old male with a past medical history of anemia, anxiety, asthma, congestive heart failure, ESRD on dialysis, COPD, depression, anxiety, type 2 diabetes, diverticulitis, hypercholesterolemia, hypertension, obstructive sleep apnea. Who presents for evaluation of significant your fall/scalp tenderness upon palpation reports a headache ongoing for many weeks. Upon physical exam there is no rash, Erythema, swelling, or discoloration. Does not appear consistent with shingles, contact dermatitis. Possibly could be due to folliculitis. Will obtain basic labs, ESR and CRP, CT of the head to exclude intracranial pathology. Reevaluation(s) Reevaluation #1: Impaired renal function, patient received a full dialysis treatment today. Mildly elevated inflammatory markers ESR of 64 and CRP 1.22, Does not appear co nsistent with activity giant cell arteritis. CT reveals no acute intracranial pathology. Topical Lidoderm ointment applied and patient reports significant improvement in scalp tenderness/pain at this time. Suspect etiology of pain to be superficial. The possibly be due to an underlying folliculitis, will trial a course of cephalexin. Reviewed these findings with patient. Patient will follow-up with primary care provider. Reviewed worsening signs and symptoms return back to emergency department for. All questions answered. Discharged home in stable condition. MDM - Headache Medical Records Attestation: I reviewed the patient's medical records. Lab Data Attestation: I reviewed the patient's lab results. Result diagrams: 07/27/22 15:48 07/27/22 15:48 Labs: Lab Results 07/27/22 07/27/22 07/27/22 Range/Units 15:48 15:48 15:48 WBC 7.0 (4.8-10.8) X10*3/uL RBC 3.20 L (4.60-5.80) X10*6/uL Hgb 10.1 L (14.0-18.0) g/dl Hct 30.0 L (42.0-52.0) % MCV 93.8 (80.0-98.0) fL MCH 31.5 (27.0-33.0) pg MCHC 33.6 (31.0-36.0) g/dl RDW 13.5 (11.0-16.0) % Plt Count 125 L (160-400) X10*3/uL MPV 12.2 (9.4-12.4) fL Immature Gran % (Auto) 0.7 H (0.0-0.4) % Neut % (Auto) 73.6 H (45-73) % Lymph % (Auto) 16.4 L (20-40) % [place] % (Auto) 6.4 (2-11) % Eos % (Auto) 2.9 (0-4) % Baso % (Auto) 0.0 (0-2) % Lymph # (Auto) 0.2 L (1.2-4.9) X10*3/uL [place] # (Auto) 0.1 (0.1-1.2) X10*3/uL Eos # (Auto) 0.0 (0.0-0.4) X10*3/uL Baso # (Auto) 0.0 (0.0-0.2) X10*3/uL Abs Immat Gran (auto) 0.01 (0.00-0.03) X10*3/uL Absolute Neuts (auto) 1.0 L (2.0-8.3) x10*3/uL Absolute Nucleated RBC 0.000 (0.0-0.012) X10*3/uL Nucleated RBC % (auto) 0.0 (0.0-0.2) /100WBC Smear Tech's Comments VERIFIED ESR 64 H (0-15) MM/HR Sodium 141 (135-145) mmol/L Potassium 4.3 (3.3-5.1) mmol/L Chloride 97 (96-108) mmol/L Carbon Dioxide 23 (22-29) mmol/L Anion Gap 25 H (12-20) BUN 29 H (9-16) mg/dL Creatinine 8.40 H* (0.5-1.4) mg/dL Estim Creat Clear Calc 11.6 Estimated GFR 7 Random Glucose 255 H D (60-115) mg/dL Calcium 9.2 D (8.4-10.2) mg/dL Total Bilirubin 0.4 (0.0-1.0) mg/dL AST 21 (5-37) U/L ALT 19 (0-40) U/L Alkaline Phosphatase 96 (39-117) U/L C-Reactive Protein 1.22 H (< or = 0.50) mg/dL Total Protein 8.4 H (6.5-8.0) g/dL Albumin 4.6 (3.5-5.0) g/dL Imaging Data CT scan - head: Radiologist's impression: CT/CT head/brain wo IV con IMPRESSION: ? 1. No acute intracranial pathology. 2. Stable right mastoid effusion. ? Discharge Plan Discharge Clinical Impression: Head pain Patient Disposition: Home, Self-Care Additional Instructions: You have been given a prescription for cephalexin, this is an antibiotic, to treat possible infection to the hair follicles of your scalp. Please complete this entire course. You can take Tylenol 500 mg, 2 tablets (1,000mg) every 4-6 hours as needed for pain, but not to exceed 3 doses daily (3,000mg).? Contact your primary care provider to arrange for a follow-up visit. Return to the emergency department any new or worsening symptoms or concerns. Prescriptions: New cephalexin 500 mg capsule 500 mg PO QID 7 Days Qty: 28 0RF No Action (DME) pen needle, diabetic [BD Ultra-Fine Silvia Pen Needle] 32 gauge x 5/32 needle See Rx Instructions .ROUTE .MEDSUPPLY Qty: 150 11RF Rx Instructions: As directed five times a day doxazosin 2 mg tablet 2 mg PO DAILY Qty: 90 1RF torsemide 20 mg tablet 80 mg PO BID 90 Days Qty: 720 1RF isosorbide mononitrate 60 mg tablet extended release 24 hr 120 mg PO QAM Qty: 60 5RF icosapent ethyl [Vascepa] 1 gram capsule 2 g PO BID Qty: 120 6RF carvedilol 25 mg tablet 25 mg PO BID Qty: 60 3RF Rx Instructions: must administer with a meal/food losartan 50 mg tablet 50 mg PO DAILY Qty: 30 5RF nifedipine 30 mg tablet extended release 120 mg PO BEDTIME 90 Days Qty: 360 1RF ondansetron 4 mg tablet,disintegrating 4 mg PO Q8H PRN (Reason: nausea and vomiting) Qty: 7 0RF atorvastatin 80 mg tablet 1 tab PO BEDTIME carvedilol 25 mg tablet 1 tab PO BID gabapentin 600 mg tablet 600 mg PO BEDTIME perphenazine 2 mg tablet 1 tab PO BID sertraline 100 mg tablet 2 tab PO DAILY oxcarbazepine 300 mg tablet 1 tab PO BID omeprazole 40 mg capsule,delayed release(DR/EC) 1 cap PO DAILY aspirin 81 mg tablet,delayed release (DR/EC) 1 tab PO DAILY tramadol 50 mg tablet 2 tab PO Q8H PRN (Reason: Pain) perphenazine 4 mg tablet 1 tab PO BID zolpidem 10 mg tablet 1 tab PO BEDTIME PRN (Reason: Insomnia) insulin aspart U-100 [Novolog Flexpen U-100 Insulin] 100 unit/mL (3 mL) insulin pen 10 unit subcut DAILY Rx Instructions: 10 units breakfast, 16 units lunch, 24 units dinner cholecalciferol (vitamin D3) 25 mcg (1,000 unit) tablet 2 tab PO DAILY Toujeo Max U-300 SoloStar 300 unit/mL (3 mL) insulin pen 50 unit subcut DAILY albuterol sulfate [Ventolin HFA] 90 mcg/actuation HFA aerosol inhaler 2 puff PO Q4H PRN (Reason: Shortness Of Breath) insulin aspart U-100 [Novolog Flexpen U-100 Insulin] 100 unit/mL (3 mL) insulin pen 16 unit subcut QNOON insulin aspart U-100 [Novolog Flexpen U-100 Insulin] 100 unit/mL (3 mL) insulin pen 28 unit subcut DAILY@1700 (DME) blood-glucose meter [FreeStyle Lite Meter] Kit See Rx Instructions .ROUTE Rx Instructions: As directed (DME) FreeStyle Lite Strips Strip See Rx Instructions .ROUTE Rx Instructions: As directed (DME) lancets [FreeStyle Lancets] 28 gauge misc See Rx Instructions .ROUTE Rx Instructions: As directed Interventions: ED Discharge Assessment Last Done: 07/27/22 18:11 Discharge Date/Time: 07/27/22 18:12
[2022-07-27 16:27] VITALS: BP 118/53; PULSE 75; RESP 18; TEMP 37.1; O2SAT 96
[2022-07-27 16:35] LABS: Alanine Aminotransferase 19 U/L (0-40); Albumin Level 4.6 g/dL (3.5-5.0); Alkaline Phosphatase 96 U/L (39-117); Anion Gap 25 (12-20); Aspartate Amino Transferase 21 U/L (5-37); Bilirubin Total 0.4 mg/dL (0.0-1.0); Blood Urea Nitrogen 29 mg/dL (9-16); C Reactive Protein 1.22 mg/dL (< or = 0.50); Calcium 9.2 mg/dL (8.4-10.2); Carbon Dioxide 23 mmol/L (22-29); Chloride 97 mmol/L (96-108); Creatinine Clr Calc Pharmacy 11.6; Estimated Glomerular Filt Rate 7; Glucose Random 255 mg/dL (60-115); Potassium 4.3 mmol/L (3.3-5.1); Sodium 141 mmol/L (135-145); Total Protein 8.4 g/dL (6.5-8.0)
[2022-07-27 17:00] LABS: Erythrocyte Sedimentation Rate 64 MM/HR (0-15)
[2022-07-27 17:03] LABS: Eosinophils Percent Auto 2.9 % (0-4); Imm Gran Abs Auto 0.01 X10*3/uL (0.00-0.03); Imm Gran Pct Auto 0.7 % (0.0-0.4); Lymphocytes Absolute Auto 0.2 X10*3/uL (1.2-4.9); Lymphocytes Percent Auto 16.4 % (20-40); MANUAL DIFF FLAG SCAN; Mean Corpuscular Volume 93.8 fL (80.0-98.0); Mean Platelet Volume 12.2 fL (9.4-12.4); Monocytes Absolute Auto 0.1 X10*3/uL (0.1-1.2); Monocytes Percent Auto 6.4 % (2-11); Neutrophils Percent Auto 73.6 % (45-73); Red Cell Distribution Width 13.5 % (11.0-16.0); SCAN SMEAR FLAG 1
[2022-07-27 17:20] LABS: Hemoglobin 10.1 g/dl (14.0-18.0); Mean Corpuscular Hemoglobin 31.5 pg (27.0-33.0)
[2022-07-27 17:21] LABS: Mean Corpuscular HGB Conc 33.6 g/dl (31.0-36.0)
[2022-07-27 17:22] LABS: Platelet Count 125 X10*3/uL (160-400)
[2022-07-27 17:31] LABS: SLIDE REVIEW VERIFIED
[2022-07-27 17:38] VITALS: BP 124/43; PULSE 76; RESP 18; O2SAT 97
[2022-07-27] MEDS: Lidocaine 5 % Ointment 35 GM 1 APPL TOPICAL (17:38)
== END 2022-07-27 18:12 | disposition home or self-care (01) ==
PROVIDERS: Nurse Practitioner Family; Emergency Provider Emergency Medicine; PCP Nurse Practitioner Primary Care
DX: R51.9 Headache, unspecified (principal); F17.210 Nicotine dependence, cigarettes, uncomplicated; Z71.6 Tobacco abuse counseling; Z79.899 Other long term (current) drug therapy
CPT/HCPCS: 36415; 70450; 80053; 85025; 85652; 86140; 99284

== ENCOUNTER 2022-08-17 07:37 | Emergency (ER) | payer OTHER, SELFPAY ==
--- NOTE | ~2022-08-17 | XR_ITS ---
EXAMINATION: XR CHEST CLINICAL INFORMATION: Cough. COMPARISON: None TECHNIQUE: Portable AP view of the chest was obtained. XR/XR chest 1V FINDINGS/IMPRESSION: The study is limited by portable technique and low lung volumes. There is no gross acute radiographic finding. No infiltrate, effusion, pneumothorax is seen. The cardiac silhouette appears within normal limits. The mediastinum, diaphragm, and soft tissues appear unremarkable. There are degenerative changes of the spine.
--- NOTE | ~2022-08-17 | CT_ITS ---
EXAMINATION: CT ABDOMEN AND PELVIS WITHOUT CONTRAST CLINICAL INFORMATION: Periumbilical pain. COMPARISON: CT scans dating between June 09, 2022 and August 18, 2006. TECHNIQUE: Multidetector volumetric imaging was performed from the superior aspect of the liver through the pubic symphysis. Sagittal and coronal reformatted images were obtained on the technologist's workstation. This CT examination was performed using dose optimization techniques as appropriate, variously including the following: *Automated exposure control *Adjustment of mA and/or kV according to patient size (this includes techniques or standardized protocols for targeted exams where dose is matched to indication/reason for exam; i.e. extremities or head) *Use of iterative reconstruction technique DLP: 602 mGy-cm FINDINGS: LUNG BASES: The lung bases appear clear, with no evidence of inflammation or nodules. Suspect decreased blood pool density, raising suspicion for anemia. LIVER, GALLBLADDER, AND BILIARY TREE: Liver measures approximately 19.5 cm in sagittal dimension. In May 2022 it measured approximately 19.1 cm. Unremarkable shape and attenuation. No focal hepatic lesion or biliary ductal dilatation is appreciated. Unremarkable appearance of the gallbladder. PANCREAS: Unremarkable SPLEEN: Spleen measures approximately 14.6 cm in sagittal dimension. In May 2022 it measured approximately 13.9 cm. ADRENAL GLANDS: Unremarkable KIDNEYS AND URETERS: The kidneys appear unremarkable in size, shape, and attenuation. No hydronephrosis, hydroureter, or calculi seen. BLADDER: Collapsed, therefore poorly evaluated. Grossly unremarkable. GASTROINTESTINAL TRACT: Colonic diverticula without evidence of diverticulitis. Normal-appearing distal ileum and vermiform appendix. Unremarkable appearance of the stomach and small bowel. ABDOMINAL WALL: Approximately 3 cm left inguinal hernia containing only fat. Approximately 3 cm lipoma the left paraspinal muscles (image 14, series 4) and at least 2 cm, partially imaged right lipoma of the right paraspinal muscles (image 1, series 2, gradually increasing in size since at least January 24, 2013. LYMPH NODES: No evidence of adenopathy by size criteria. VASCULAR: Unremarkable PELVIC VISCERA: Unremarkable OSSEOUS STRUCTURES: Unremarkable CT/CT abdomen pelvis wo IV con IMPRESSION: No acute finding. Mild hepatosplenomegaly. Additional findings, as above.
[2022-08-17 07:43] VITALS: BP 162/63; PULSE 85; RESP 20; TEMP 36.9; O2SAT 98; BMI 32.1
--- NOTE | 2022-08-17 07:57 | ECG_ITS ---
Test Reason : NAUSEA Blood Pressure : / mmHG Vent. Rate : 081 BPM Atrial Rate : 081 BPM P-R Int : 178 ms QRS Dur : 146 ms QT Int : 410 ms P-R-T Axes : 037 -66 043 degrees QTc Int : 476 ms Normal sinus rhythm Right bundle branch block Left anterior fascicular block Bifascicular block Minimal voltage criteria for LVH, may be normal variant ( R in aVL ) Abnormal ECG When compared with ECG of 09-JUN-2022 11:22, Vent. rate has increased BY 29 BPM T wave amplitude has decreased in Anterior leads Referred By: Diane Martinez Electronically Signed By:JODI CORTEZ MD
--- NOTE | 2022-08-17 07:59 | ED.ABDPAIN ---
HPI - Abdominal Pain General Chief Complaint: Abdominal Pain Stated Complaint: abdominal pain Time Seen by Provider: 08/17/22 07:55 Source: patient and EMS Mode of arrival: EMS Limitations: no limitations History of Present Illness HPI narrative: 61 yo male with history of ESRD on HD M/W/F, PAD, duodenal ulcers, HFpEF, DM2, HTN, asthma/COPD, BRENDA on CPAP, hx pancreatitis, who presents to the ER for evaluation from dialysis for evaluation of periumbilical abdominal pain along with nausea, vomiting and diarrhea for the last 3 days. He was only able to get through 1 hour of HD today when his pain and vomiting started to worsen. He states his abdominal pain is in the middle of his abdomen, tends to come and go. He denies any fever or chills but reports a dry cough the last couple of days. He denies any blood in his vomitus or stools. MD elicited complaint: abdominal pain Pertinent past history: other (Pancreatitis and PUD) Onset (ago): day(s) (3) Pain Consistency: intermittent Location: periumbilical Severity: severe Quality: stabbing Radiation: none Migration to: no migration Exacerbating factors: nothing Relieving factors: nothing Associated symptoms: nausea, vomiting and diarrhea Related Data Home Medications Medication Instructions Recorded Confirmed albuterol sulfate 90 mcg/actuation 2 puff PO Q4H PRN Shortness Of 12/01/21 12/01/21 aerosol inhaler (Ventolin HFA) Breath aspirin 81 mg tablet,delayed 1 tab PO DAILY 12/01/21 12/01/21 release atorvastatin 80 mg tablet 1 tab PO BEDTIME 12/01/21 12/01/21 carvedilol 25 mg tablet 1 tab PO BID 12/01/21 12/01/21 cholecalciferol (vitamin D3) 25 2 tab PO DAILY 12/01/21 12/01/21 mcg (1,000 unit) tablet gabapentin 600 mg tablet 600 mg PO BEDTIME 12/01/21 12/01/21 insulin aspart U-100 100 unit/mL 16 unit subcut QNOON 12/01/21 12/01/21 (3 mL) subcutaneous pen (Novolog Flexpen U-100 Insulin aspart) omeprazole 40 mg capsule,delayed 1 cap PO DAILY 12/01/21 12/01/21 release oxcarbazepine 300 mg tablet 1 tab PO BID 12/01/21 12/01/21 perphenazine 2 mg tablet 1 tab PO BID 12/01/21 12/01/21 perphenazine 4 mg tablet 1 tab PO BID 12/01/21 12/01/21 sertraline 100 mg tablet 2 tab PO DAILY 12/01/21 12/01/21 tramadol 50 mg tablet 2 tab PO Q8H PRN Pain 12/01/21 12/01/21 zolpidem 10 mg tablet 1 tab PO BEDTIME PRN Insomnia 12/01/21 12/01/21 blood sugar diagnostic (FreeStyle 06/20/22 Lite Strips) blood-glucose meter (FreeStyle 06/20/22 Lite Meter kit) insulin aspart U-100 100 unit/mL 28 unit subcut DAILY@1700 06/20/22 (3 mL) subcutaneous pen (Novolog Flexpen U-100 Insulin aspart) lancets 28 gauge (FreeStyle 06/20/22 Lancets) Previous Rx's Medication Instructions Recorded pen needle, diabetic 32 gauge x #150 ea 12/21/21 (BD Ultra-Fine Silvia Pen Needle) doxazosin 2 mg tablet 2 mg PO DAILY #90 tabs 04/06/22 torsemide 20 mg tablet 80 mg PO BID 90 days #720 tabs 04/06/22 isosorbide mononitrate 60 mg 120 mg PO QAM #60 tabs 05/16/22 tablet,extended release 24 hr icosapent ethyl 1 gram capsule 2 g PO BID #120 caps 06/07/22 (Vascepa) ondansetron 4 mg disintegrating 4 mg PO Q8H PRN nausea and 06/09/22 tablet vomiting #7 tabs carvedilol 25 mg tablet 25 mg PO BID #60 tabs 07/03/22 losartan 50 mg tablet 50 mg PO DAILY #30 tabs 07/03/22 nifedipine 30 mg tablet,extended 120 mg PO BEDTIME 90 days #360 tabs 07/04/22 release cephalexin 500 mg capsule 500 mg PO QID 7 days #28 caps 07/27/22 Novolog Flexpen U-100 Insulin 100 See Rx Instructions subcut 07/30/22 unit/mL (3 mL) subcutaneous .COMPLEX #15 mL (insulin aspart U-100) insulin glargine U-300 conc 300 50 unit (0.1667 mL) subcut DAILY 08/13/22 unit/mL (3 mL) subcutaneous pen #6 mL (Toujeo Max U-300 SoloStar) ondansetron 4 mg disintegrating 4 mg PO Q8H PRN nausea and 08/17/22 tablet vomiting #7 tabs Allergies Allergy/AdvReac Type Severity Reaction Status Date / Time No Known Allergies Allergy Verified 07/15/22 06:46 Review of Systems Review of Systems Constitutional: No Fever, No Chills ENT/Mouth: No sore throat, No Rhinorrhea, No Swallowing Difficulty Cardiovascular: No Chest Pain, No SOB, No Orthopnea, No Edema Respiratory: No Cough, No Sputum, No Wheezing, No dyspnea Gastrointestinal: + Nausea, + Vomiting, + Diarrhea, + abdominal Pain Genitourinary: No Dysuria, No Urinary Frequency, No Hematuria Musculoskeletal: No joint pain, No Myalgias Skin: No Skin Lesions, No rash Neuro: No Weakness, No Numbness, No Dizziness, No Headache Psych: No Anxiety/Panic, No Depression Heme/Lymph: No Bruising, No Lymphadenopathy PMFSH Past Medical History Medical History Abnormal biopsy of kidney Anemia Anxiety Asthma CHF (congestive heart failure) CHF exacerbation Chronic kidney disease, stage 4 (severe) CKD (chronic kidney disease) stage 4, GFR 15-29 ml/min Congestive heart failure COPD (chronic obstructive pulmonary disease) Depression Depression with anxiety Diabetes mellitus with hyperglycemia, with long-term current use of insulin Diabetes type 2, uncontrolled Diastolic dysfunction Diverticulitis Elevated cholesterol Erectile dysfunction ESRD (end stage renal disease) on dialysis Essential hypertension Heart failure with preserved ejection fraction History of alcohol abuse History of headache HTN (hypertension) HTN (hypertension) Hx of pancreatitis Hyperglycemia Hypertension Hypertensive crisis Hypertriglyceridemia On beta doron at home Pancreatitis Peptic ulcer Proteinuria Sleep apnea Type 2 diabetes mellitus with chronic kidney disease Type 2 diabetes mellitus with hyperglycemia, with long-term current use of insulin Type 2 diabetes mellitus with polyneuropathy Type 2 diabetes mellitus with unspecified complications Surgical History History of surgery Hx of colonoscopy Hx of right inguinal hernia repair Family History Family History Mother Diabetes Social History Social History Household Members: None Housing: House Are you a primary career development director to a significant other at home: No Do you presently have visiting nurse or other home services: Yes (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 Oriented X3. No acute distress. Eyes: Pupils equal, round and reactive to light. ENT: Pharynx normal. Moist mucus membranes. Neck: Normal inspection. Neck supple. CVS: Normal heart rate and rhythm. Pulses normal. Respiratory: No respiratory distress. Breath sounds normal. Abdomen: Soft, with moderate periumbilical tenderness with some guarding, +BS x4 Skin: Skin warm and dry. Normal skin color. Normal skin turgor. No rashes. Extremities: No lower extremity edema. Neuro: Oriented X 3. No motor deficit. No sensory deficit. Course Course Course Narrative: 61 y/o male with history of ESRD on HD, HFpEF, PAD, HTN, DM2 who presents with 3 days of N/V/D and periumbilical abdominal pain. Moderate tenderness on exam. Did not complete HD today. Will check labs, CT scan, COVID/Flu and give dilaudid/zofran for ongoing pain and nausea. Dispo pending results and improvement. Reevaluation(s) Reevaluation #1: Labs show no leukocytosis. K 3.9. BUN 38. CT scan of his abdomen is unremarkable. He was found to be positive for BOTH COVID & Flu B. Reevaluation #2: Patient tolerating p.o.. At this time is stable for discharge home with p.r.n. Zofran and supportive care. He is encourage follow-up with his primary care doctor. Symptomatic management was discussed. Return precautions also discussed. Stable for DC. MDM - Abdominal Pain Medical Records Attestation: I reviewed the patient's medical records. Lab Data Attestation: I reviewed the patient's lab results. Result diagrams: 08/17/22 08:17 08/17/22 08:17 Labs: Lab Results 08/17/22 08/17/22 08/17/22 Range/Units 08:13 08:13 08:17 WBC 8.1 (4.8-10.8) X10*3/uL RBC 3.40 L (4.60-5.80) X10*6/uL Hgb 11.4 L (14.0-18.0) g/dl Hct 31.7 L (42.0-52.0) % MCV 93.2 (80.0-98.0) fL MCH 33.5 H (27.0-33.0) pg MCHC 36.0 (31.0-36.0) g/dl RDW 13.2 (11.0-16.0) % Plt Count 130 L (160-400) X10*3/uL MPV 11.6 (9.4-12.4) fL Immature Gran % (Auto) 0.2 (0.0-0.4) % Neut % (Auto) 90.5 H (45-73) % Lymph % (Auto) 4.3 L (20-40) % Cassia % (Auto) 3.2 (2-11) % Eos % (Auto) 1.7 (0-4) % Baso % (Auto) 0.1 (0-2) % Lymph # (Auto) 0.4 L (1.2-4.9) X10*3/uL Cassia # (Auto) 0.3 (0.1-1.2) X10*3/uL Eos # (Auto) 0.1 (0.0-0.4) X10*3/uL Baso # (Auto) 0.0 (0.0-0.2) X10*3/uL Abs Immat Gran (auto) 0.02 (0.00-0.03) X10*3/uL Absolute Neuts (auto) 7.3 (2.0-8.3) x10*3/uL Absolute Nucleated RBC 0.000 (0.0-0.012) X10*3/uL Nucleated RBC % (auto) 0.0 (0.0-0.2) /100WBC Smear Tech's Comments VERIFIED Sodium (135-145) mmol/L Potassium (3.3-5.1) mmol/L Chloride (96-108) mmol/L Carbon Dioxide (22-29) mmol/L Anion Gap (12-20) BUN (9-16) mg/dL Creatinine (0.5-1.4) mg/dL Estim Creat Clear Calc Estimated GFR Random Glucose (60-115) mg/dL Calcium (8.4-10.2) mg/dL Magnesium (1.6-2.6) mg/dL Total Bilirubin (0.0-1.0) mg/dL Direct Bilirubin (0.0-0.5) mg/dL AST (5-37) U/L ALT (0-40) U/L Alkaline Phosphatase (39-117) U/L Total Protein (6.5-8.0) g/dL Albumin (3.5-5.0) g/dL Lipase (8-78) U/L COVID-19 (RIGOBERTO) Positive A (Negative) COVID-19 Clin Com See Note Influenza Type A (ZANE) Negative (Negative) Influenza Type B (ZANE) Positive A (Negative) Influenza A & B Note See Note 08/17/22 Range/Units 08:17 WBC (4.8-10.8) X10*3/uL RBC (4.60-5.80) X10*6/uL Hgb (14.0-18.0) g/dl Hct (42.0-52.0) % MCV (80.0-98.0) fL MCH (27.0-33.0) pg MCHC (31.0-36.0) g/dl RDW (11.0-16.0) % Plt Count (160-400) X10*3/uL MPV (9.4-12.4) fL Immature Gran % (Auto) (0.0-0.4) % Neut % (Auto) (45-73) % Lymph % (Auto) (20-40) % Cassia % (Auto) (2-11) % Eos % (Auto) (0-4) % Baso % (Auto) (0-2) % Lymph # (Auto) (1.2-4.9) X10*3/uL Cassia # (Auto) (0.1-1.2) X10*3/uL Eos # (Auto) (0.0-0.4) X10*3/uL Baso # (Auto) (0.0-0.2) X10*3/uL Abs Immat Gran (auto) (0.00-0.03) X10*3/uL Absolute Neuts (auto) (2.0-8.3) x10*3/uL Absolute Nucleated RBC (0.0-0.012) X10*3/uL Nucleated RBC % (auto) (0.0-0.2) /100WBC Smear Tech's Comments Sodium 139 (135-145) mmol/L Potassium 3.9 (3.3-5.1) mmol/L Chloride 93 L (96-108) mmol/L Carbon Dioxide 28 (22-29) mmol/L Anion Gap 22 H (12-20) BUN 38 H (9-16) mg/dL Creatinine 10.17 H* (0.5-1.4) mg/dL Estim Creat Clear Calc 9.3 Estimated GFR 5 Random Glucose 133 H D (60-115) mg/dL Calcium 8.8 (8.4-10.2) mg/dL Magnesium 1.8 (1.6-2.6) mg/dL Total Bilirubin 0.5 (0.0-1.0) mg/dL Direct Bilirubin < 0.2 (0.0-0.5) mg/dL AST 14 (5-37) U/L ALT 10 (0-40) U/L Alkaline Phosphatase 86 (39-117) U/L Total Protein 8.7 H (6.5-8.0) g/dL Albumin 4.6 (3.5-5.0) g/dL Lipase 51 (8-78) U/L COVID-19 (RIGOBERTO) (Negative) COVID-19 Clin Com Influenza Type A (ZANE) (Negative) Influenza Type B (ZANE) (Negative) Influenza A & B Note ECG Data Attestation: I personally reviewed and interpreted this ECG as follows: ECG interpretation date: 08/17/22 ECG interpretation time: 10:19 Prior ECG tracings: available for review Interpretation: normal sinus rhythm, RBBB, left anterior fascicular block, vent rate 81, no ST segment elevations or depressions. Discharge Plan Discharge Clinical Impression: COVID-19, Influenza B Patient Disposition: Home, Self-Care Instructions: Covid-19 Viral Syndrome and Novel Coronavirus (ED) Hey/Ath, Influenza (ED) Additional Instructions: Your found to be positive for both COVID a and influenza B. This is the cause of your abdominal discomfort, nausea, vomiting and diarrhea. Take the prescribed medication as needed for nausea and vomiting. Stick to a bland diet like soup and toast while you are not feeling well. Symptoms will get better with time. Make sure resting and staying hydrated. Take gydw-riw-zglnyls cold and flu medications as needed for your other symptoms. Take Tylenol for your pain. Follow-up with your doctor. If you develop new or worsening symptoms call 911 or come back to the ER for further evaluation. Carter resultado fue positivo tanto para COVID a kenisha para influenza B. Esta es la causa de carter malestar abdominal, n?useas, v?mitos y diarrea. [place] el medicamento recetado seg?n sea necesario para las n?useas y los v?mitos. Siga yobany dieta blanda kenisha sopa y tostadas mientras no se sienta kevin. Los s?ntomas mejorar?n con el tiempo. Aseg?rate de descansar y mantenerte hidratado. [place] medicamentos de venta neda para el resfriado y la gripe seg?n sea necesario para rich otros s?ntomas. Seguimiento con carter m?dico. Si desarrolla s?ntomas nuevos o que empeoran, llame al 911 o regrese a la amarilys de emergencias para yobany evaluaci?n adicional. Prescriptions: New ondansetron 4 mg tablet,disintegrating 4 mg PO Q8H PRN (Reason: nausea and vomiting) Qty: 7 0RF No Action (DME) pen needle, diabetic [BD Ultra-Fine Silvia Pen Needle] 32 gauge x 5/32 needle See Rx Instructions .ROUTE .MEDSUPPLY Qty: 150 11RF Rx Instructions: As directed five times a day doxazosin 2 mg tablet 2 mg PO DAILY Qty: 90 1RF torsemide 20 mg tablet 80 mg PO BID 90 Days Qty: 720 1RF isosorbide mononitrate 60 mg tablet extended release 24 hr 120 mg PO QAM Qty: 60 5RF icosapent ethyl [Vascepa] 1 gram capsule 2 g PO BID Qty: 120 6RF carvedilol 25 mg tablet 25 mg PO BID Qty: 60 3RF Rx Instructions: must administer with a meal/food losartan 50 mg tablet 50 mg PO DAILY Qty: 30 5RF nifedipine 30 mg tablet extended release 120 mg PO BEDTIME 90 Days Qty: 360 1RF insulin aspart U-100 [Novolog Flexpen U-100 Insulin] 100 unit/mL (3 mL) insulin pen See Rx Instructions subcut .COMPLEX Qty: 15 4RF Rx Instructions: 10 units for breakfat, 24 units with lunch and 16 units with dinner subcutaneously; subcutaneously; Toujeo Max U-300 SoloStar 300 unit/mL (3 mL) insulin pen 50 unit subcut DAILY Qty: 6 6RF ondansetron 4 mg tablet,disintegrating 4 mg PO Q8H PRN (Reason: nausea and vomiting) Qty: 7 0RF atorvastatin 80 mg tablet 1 tab PO BEDTIME carvedilol 25 mg tablet 1 tab PO BID gabapentin 600 mg tablet 600 mg PO BEDTIME perphenazine 2 mg tablet 1 tab PO BID sertraline 100 mg tablet 2 tab PO DAILY oxcarbazepine 300 mg tablet 1 tab PO BID omeprazole 40 mg capsule,delayed release(DR/EC) 1 cap PO DAILY aspirin 81 mg tablet,delayed release (DR/EC) 1 tab PO DAILY tramadol 50 mg tablet 2 tab PO Q8H PRN (Reason: Pain) perphenazine 4 mg tablet 1 tab PO BID zolpidem 10 mg tablet 1 tab PO BEDTIME PRN (Reason: Insomnia) cholecalciferol (vitamin D3) 25 mcg (1,000 unit) tablet 2 tab PO DAILY albuterol sulfate [Ventolin HFA] 90 mcg/actuation HFA aerosol inhaler 2 puff PO Q4H PRN (Reason: Shortness Of Breath) insulin aspart U-100 [Novolog Flexpen U-100 Insulin] 100 unit/mL (3 mL) insulin pen 16 unit subcut QNOON insulin aspart U-100 [Novolog Flexpen U-100 Insulin] 100 unit/mL (3 mL) insulin pen 28 unit subcut DAILY@1700 cephalexin 500 mg capsule 500 mg PO QID 7 Days Qty: 28 0RF (DME) blood-glucose meter [FreeStyle Lite Meter] Kit See Rx Instructions .ROUTE Rx Instructions: As directed (DME) FreeStyle Lite Strips Strip See Rx Instructions .ROUTE Rx Instructions: As directed (DME) lancets [FreeStyle Lancets] 28 gauge misc See Rx Instructions .ROUTE Rx Instructions: As directed Referrals: Nuvia Crook COOKY PACKER [Primary Care Provider] - Print Language: Kuwaiti
[2022-08-17 08:42] VITALS: RESP 18
[2022-08-17] MEDS: ondansetron HCL 4 MG/2 ML VIAL IVPUSH (08:42)
[2022-08-17] MEDS: HYDROmorphone HCl 0.5 MG/0.5 ML SYRINGE IVPUSH (08:42)
[2022-08-17 08:48] LABS: COVID-19 Test Positive (Negative); IDNOW Serial# 9DB6401D
[2022-08-17 08:49] LABS: Basophils Percent Auto 0.1 % (0-2); Eosinophils Absolute Auto 0.1 X10*3/uL (0.0-0.4); Eosinophils Percent Auto 1.7 % (0-4); Hematocrit 31.7 % (42.0-52.0); Hemoglobin 11.4 g/dl (14.0-18.0); Imm Gran Abs Auto 0.02 X10*3/uL (0.00-0.03); Imm Gran Pct Auto 0.2 % (0.0-0.4); Lymphocytes Absolute Auto 0.4 X10*3/uL (1.2-4.9); Lymphocytes Percent Auto 4.3 % (20-40); MANUAL DIFF FLAG SCAN; Mean Corpuscular Hemoglobin 33.5 pg (27.0-33.0); Mean Corpuscular Volume 93.2 fL (80.0-98.0); Mean Platelet Volume 11.6 fL (9.4-12.4); Monocytes Absolute Auto 0.3 X10*3/uL (0.1-1.2); Monocytes Percent Auto 3.2 % (2-11); Neutrophils Absolute Auto 7.3 x10*3/uL (2.0-8.3); Neutrophils Percent Auto 90.5 % (45-73); Platelet Count 130 X10*3/uL (160-400); Red Cell Distribution Width 13.2 % (11.0-16.0); SCAN SMEAR FLAG 1; White Blood Count 8.1 X10*3/uL (4.8-10.8)
[2022-08-17 09:00] LABS: IDNOW Serial# 16C4AD1C
[2022-08-17 09:01] LABS: Influenza A Negative (Negative); Influenza B2 Positive (Negative)
[2022-08-17 09:03] LABS: SLIDE REVIEW VERIFIED
[2022-08-17 09:07] LABS: Alanine Aminotransferase 10 U/L (0-40); Albumin Level 4.6 g/dL (3.5-5.0); Alkaline Phosphatase 86 U/L (39-117); Anion Gap 22 (12-20); Aspartate Amino Transferase 14 U/L (5-37); Bilirubin Direct < 0.2 mg/dL (0.0-0.5); Bilirubin Total 0.5 mg/dL (0.0-1.0); Blood Urea Nitrogen 38 mg/dL (9-16); Calcium 8.8 mg/dL (8.4-10.2); Carbon Dioxide 28 mmol/L (22-29); Chloride 93 mmol/L (96-108); Creatinine Clr Calc Pharmacy 9.3; Estimated Glomerular Filt Rate 5; Glucose Random 133 mg/dL (60-115); Lipase 51 U/L (8-78); Magnesium 1.8 mg/dL (1.6-2.6); Potassium 3.9 mmol/L (3.3-5.1); Sodium 139 mmol/L (135-145); Total Protein 8.7 g/dL (6.5-8.0)
--- NOTE | 2022-08-17 10:33 | PC.NURSE ---
tolerated po challenge well
== END 2022-08-17 10:50 | disposition home or self-care (01) ==
PROVIDERS: Physician Assistant; Emergency Provider Emergency Medicine; PCP Nurse Practitioner Primary Care
DX: U07.1 COVID-19 (principal); J10.1 Influenza due to other identified influenza virus with other respiratory manifestations; R10.33 Periumbilical pain; R11.2 Nausea with vomiting, unspecified; R19.7 Diarrhea, unspecified; E11.22 Type 2 diabetes mellitus with diabetic chronic kidney disease; I13.2 Hypertensive heart and chronic kidney disease with heart failure and with stage 5 chronic kidney disease, or end stage renal disease; N18.6 End stage renal disease; I50.30 Unspecified diastolic (congestive) heart failure; Z99.2 Dependence on renal dialysis; E78.5 Hyperlipidemia, unspecified; F17.210 Nicotine dependence, cigarettes, uncomplicated; Z79.02 Long term (current) use of antithrombotics/antiplatelets; Z79.82 Long term (current) use of aspirin; Z79.4 Long term (current) use of insulin
CPT/HCPCS: 71045; 74176; 80048; 80076; 83690; 83735; 85025; 87502; 87635; 93005; 96374; 96375; 99284; J1170; J2405

== ENCOUNTER → 2022-08-23 11:12 | Outpatient (BNVA) | payer OTHER, SELFPAY | PROVIDERS: PCP Nurse Practitioner Primary Care; Visit Provider Registered Nurse Diabetes Educator | DX: E11.649 Type 2 diabetes mellitus with hypoglycemia without coma (principal) | CPT/HCPCS: 99211 ==

== ENCOUNTER → 2022-09-06 12:29 | Outpatient (BNVA) | payer OTHER, SELFPAY | PROVIDERS: PCP Nurse Practitioner Primary Care; Visit Provider Registered Nurse Diabetes Educator | DX: E11.649 Type 2 diabetes mellitus with hypoglycemia without coma (principal) | CPT/HCPCS: 99211 ==

== ENCOUNTER → 2022-10-02 09:34 | Outpatient (BNVA) | payer OTHER, SELFPAY | PROVIDERS: PCP Nurse Practitioner Primary Care; Visit Provider Dietitian, Registered | DX: E11.649 Type 2 diabetes mellitus with hypoglycemia without coma (principal) | CPT/HCPCS: 97802 ==

== ENCOUNTER → 2022-10-10 14:27 | Outpatient (BNVA) | payer OTHER, SELFPAY | PROVIDERS: PCP Nurse Practitioner Primary Care; Visit Provider Registered Nurse Diabetes Educator | DX: E11.649 Type 2 diabetes mellitus with hypoglycemia without coma (principal) | CPT/HCPCS: 99211 ==

== ENCOUNTER → 2022-12-18 13:36 | Outpatient (BNVA) | payer OTHER, SELFPAY | PROVIDERS: PCP Nurse Practitioner Primary Care; Visit Provider Internal Medicine Endocrinology, Diabetes & Metabolism | DX: E11.649 Type 2 diabetes mellitus with hypoglycemia without coma (principal); Z79.4 Long term (current) use of insulin | CPT/HCPCS: 82947; 83036; 99212 ==

== ENCOUNTER 2023-01-11 09:40 | Emergency (ER) | payer OTHER, SELFPAY ==
--- NOTE | ~2023-01-11 | CT_ITS ---
EXAMINATION: CT ABDOMEN AND PELVIS WITHOUT CONTRAST CLINICAL INFORMATION: Left lower abdominal pain. History of diverticulitis COMPARISON: CT abdomen and pelvis without IV contrast and 2121 TECHNIQUE: Multidetector volumetric imaging was performed from the superior aspect of the liver through the pubic symphysis. Sagittal and coronal reformatted images were obtained on the technologist's workstation. This CT examination was performed using dose optimization techniques as appropriate, variously including the following: *Automated exposure control *Adjustment of mA and/or kV according to patient size (this includes techniques or standardized protocols for targeted exams where dose is matched to indication/reason for exam; i.e. extremities or head) *Use of iterative reconstruction technique DLP: 676 mGy-cm FINDINGS: LUNG BASES: Minimal atelectatic changes seen left lung base. LIVER, GALLBLADDER, AND BILIARY TREE: The liver is normal in size(19 cm), shape, and attenuation. No focal hepatic lesion or biliary ductal dilatation is present. The gallbladder is unremarkable with no evidence of radiopaque gallstones, gallbladder wall thickening, or obvious pericholecystic inflammatory changes. PANCREAS: Unremarkable. SPLEEN: The spleen is unremarkable. It measures 14 cm in length There is a small accessory splenule along the inferior lateral tip. ADRENAL GLANDS: Unremarkable. KIDNEYS AND URETERS: The kidneys are normal in size, shape, and attenuation. No hydronephrosis, hydroureter, or calculi seen. No perinephric stranding. BLADDER: Unremarkable. GASTROINTESTINAL TRACT: There is diffuse colonic diverticulosis with mild sigmoid colon mural thickening. But without fat stranding. Diverticulitis in the rest of the colon. There is no distention. The small bowel loops are normal caliber. Appendix is normal caliber. No inflammatory process seen in the abdomen. ABDOMINAL WALL: There is a left inguinal hernia containing fat.. LYMPH NODES: Normal. VASCULAR: Unremarkable. PELVIC VISCERA: Unremarkable. OSSEOUS STRUCTURES: Ventral spondylosis seen at L2-L3, L3-L4 and L4-L5 disc levels. No aggressive lytic or sclerotic process seen. There is a known lipoma along the left paraspinal musculature upper lumbar and lower thoracic spine. It measures 6 cm in maximum craniocaudad length. CT/CT abdomen pelvis wo IV con IMPRESSION: 1. Diffuse colonic diverticulosis with mild sigmoid colon mural thickening but without diverticulitis. 2. Mild hepatosplenomegaly. 3. Left paraspinal lipoma. 4. Small left inguinal hernia containing fat. 5. Mild ventral spondylosis L2-L3, L3-L4 and L4-L5 disc levels. Fleischner guidelines were followed.
[2023-01-11 09:44] VITALS: BP 104/50; BP 109/37; PULSE 59; RESP 16; TEMP 36.7; O2SAT 97; BMI 30.5
--- NOTE | 2023-01-11 10:00 | PC.NURSE ---
10/10 INTERMITTENT LLQ PAIN DURING DIALYSIS, 3 OUT OF 4 HRS OF TX DONE. PAIN STARTED ON SATURDAY, DENIES N/V/D. LAST BM THIS MORNING. NO OTHER STATED COMPLAINTS.
[2023-01-11 10:03] VITALS: BP 107/44
--- NOTE | 2023-01-11 10:50 | ED_ITS ---
HPI - Abdominal Pain General Chief Complaint: Abdominal Pain Stated Complaint: LOWER LT QUAD ABD PAIN Time Seen by Provider: 01/11/23 10:21 Source: patient Mode of arrival: ambulatory Limitations: language barrier History of Present Illness HPI narrative: History through spanish interpreter. Left sided abdominal pain for 5 day. No fever, no vomiting. Patient with diarrhea that is chronic. Patient is on dialysis non f unctioning kidneys, no history of kidney stones. This pain feels like his diverticulitis. He has not had diverticulitis in years. MD elicited complaint: abdominal pain Severity: mild Quality: stabbing Related Data Home Medications Medication Instructions Recorded Confirmed albuterol sulfate 90 mcg/actuation 2 puff PO Q4H PRN Shortness Of 12/01/2112/18 aerosol inhaler (Ventolin HFA) Breath aspirin 81 mg tablet,delayed 1 tab PO DAILY 12/01/21 12/18/22 release atorvastatin 80 mg tablet 1 tab PO BEDTIME 12/01/21 12/18/22 carvedilol 25 mg tablet 1 tab PO BID 12/01/21 12/18/22 cholecalciferol (vitamin D3) 25 2 tab PO DAILY 12/01/21 12/18/22 mcg (1,000 unit) tablet gabapentin 600 mg tablet 600 mg PO BEDTIME 12/01/21 12/18/22 insulin aspart U-100 100 unit/mL 16 unit subcut QNOON 12/01/21 12/18/22 (3 mL) subcutaneous pen (Novolog FlexPen U-100 Insulin aspart) omeprazole 40 mg capsule,delayed 1 cap PO DAILY 12/01/21 12/18/22 release oxcarbazepine 300 mg tablet 1 tab PO BID 12/01/21 12/18/22 perphenazine 2 mg tablet 1 tab PO BID 12/01/21 12/18/22 perphenazine 4 mg tablet 1 tab PO BID 12/01/21 12/18/22 sertraline 100 mg tablet 2 tab PO DAILY 12/01/21 12/18/22 tramadol 50 mg tablet 2 tab PO Q8H PRN Pain 12/01/21 12/18/22 zolpidem 10 mg tablet 1 tab PO BEDTIME PRN Insomnia 12/01/21 12/18/22 blood-glucose meter (FreeStyle 08/24/22 02/21/23 Lite Meter kit) insulin aspart U-100 100 unit/mL 28 unit subcut DAILY@1700 06/20/22 12/18/22 (3 mL) subcutaneous pen (Novolog FlexPen U-100 Insulin aspart) lancets 33 gauge (TRUEplus Lancets) #100 ea 12/18/22 12/18/22 Previous Rx's Medication Instructions Recorded pen needle, diabetic 32 gauge x #150 ea 12/21/21 (BD Ultra-Fine Silvia Pen Needle) doxazosin 2 mg tablet 2 mg PO DAILY #90 tabs 04/06/22 ondansetron 4 mg disintegrating 4 mg PO Q8H PRN nausea and 06/09/22 tablet vomiting #7 tabs cephalexin 500 mg capsule 500 mg PO QID 7 days #28 caps 07/27/22 insulin glargine U-300 conc 300 50 unit (0.1667 mL) subcut DAILY 08/13/22 unit/mL (3 mL) subcutaneous pen #6 mL (Toujeo Max U-300 SoloStar) blood sugar diagnostic (FreeStyle #150 ea 08/17/22 Lite Strips) ondansetron 4 mg disintegrating 4 mg PO Q8H PRN nausea and 08/17/22 tablet vomiting #7 tabs torsemide 20 mg tablet 80 mg PO BID #720 tabs 10/05/22 carvedilol 25 mg tablet 25 mg PO BID 90 days #180 tabs 10/31/22 isosorbide mononitrate 60 mg 120 mg PO QAM 90 days #180 tabs 10/31/22 tablet,extended release 24 hr lancets 28 gauge (FreeStyle #100 ea 10/31/22 Lancets) insulin aspart U-100 100 unit/mL See Rx Instructions subcut 12/27/22 (3 mL) subcutaneous pen (Novolog .COMPLEX #15 mL FlexPen U-100 Insulin aspart) icosapent ethyl 1 gram capsule 2 g PO BID #120 caps 12/31/22 (Vascepa) losartan 50 mg tablet 50 mg PO DAILY #30 tabs 12/31/22 nifedipine 30 mg tablet,extended 120 mg PO BEDTIME 90 days #360 tabs 12/31/22 release Allergies Allergy/AdvReac Type Severity Reaction Status Date / Time No Known Allergies Allergy Verified 01/11/23 09:56 Review of Systems Review of Systems Yes all other systems are reviewed and are negative Gastrointestinal: Reports abdominal pain and Reports diarrhea PMFSH Past Medical History Medical History Abnormal biopsy of kidney Anemia Anxiety Asthma CHF (congestive heart failure) CHF exacerbation Chronic kidney disease, stage 4 (severe) CKD (chronic kidney disease) stage 4, GFR 15-29 ml/min Congestive heart failure COPD (chronic obstructive pulmonary disease) Depression Depression with anxiety Diabetes mellitus with hyperglycemia, with long-term current use of insulin Diabetes type 2, uncontrolled Diastolic dysfunction Diverticulitis Elevated cholesterol Erectile dysfunction ESRD (end stage renal disease) on dialysis Essential hypertension Heart failure with preserved ejection fraction History of alcohol abuse History of headache HTN (hypertension) HTN (hypertension) Hx of pancreatitis Hyperglycemia Hypertension Hypertensive crisis Hypertriglyceridemia On beta doron at home Pancreatitis Peptic ulcer Proteinuria Sleep apnea Type 2 diabetes mellitus with chronic kidney disease Type 2 diabetes mellitus with hyperglycemia, with long-term current use of insulin Type 2 diabetes mellitus with polyneuropathy Type 2 diabetes mellitus with unspecified complications Surgical History History of surgery Hx of colonoscopy Hx of right inguinal hernia repair Family History Family History Mother Diabetes Social History Social History Household Members: None Housing: House Are you a primary care management assistant to a significant other at home: No Do you presently have visiting nurse or other home services: Yes ([facility] [employer]) Alcohol intake: never Patient Tobacco Use Status: Current someday Tobacco user Tobacco use type: Cigarette Years Smoked: 30 Second Hand Smoke Exposure: Yes Advance Directives: No Advance Directives Information Provided: Yes service: No Current occupational status: retired Physical Exam ED Vital Signs: Vital Signs - 24 hr 01/11/23 09:44 01/11/23 10:03 01/11/23 12:37 Temperature 98.1 F Pulse Rate 59 59 Respiratory Rate 16 16 Blood Pressure 109/37 L 107/44 L 108/47 L Pulse Oximetry 97 96 Oxygen Delivery Method Room Air Room Air BMI result Body Mass Index 30.5 Const Other: chronically ill male Nutritional Appearance: average body habitus Orientation/consciousness: oriented to person and patient oriented x3 Limitations: language barrier HENMT Head: Yes normal to inspection Ears: external ears normal General nose exam: Normal external nose present Mouth: Normal oral and palatal mucosa present and oropharynx normal Throat: Yes posterior oropharynx normal Eyes General: appearance normal, both eyes and all related structures Neck Neck: Yes normal visual inspection Chest Chest palpation & inspection: normal inspection of the chest Resp Auscultation: clear to auscultation bilaterally Cardio Jugular venous distension: no JVD Rate: regular rate Rhythm: regular rhythm Heart sounds: S1 normal heart sound present and S2 normal heart sound present GI Other: mild left lower abdominal pain no Palpation (GI): Soft to palpation, nontender and No hepatosplenomegaly present Auscultation: normal bowel sounds General: Yes no CVA tenderness Back/Spine/Pelvis Back: no CVA tenderness Skin General skin exam: no rashes or lesions noted Neuro General: oriented to person and patient oriented x3 Cranial nerves: Yes CN's II-XII intact bilaterally Motor exam (neuro): 5/5 motor strength present throughout Extrem General: Yes normal to inspection Psych Appearance: grossly normal Course Reevaluation(s) Reevaluation #1: exam was unimpressive, CT no evidence of diverticulitis will dc home Time: 14:04 Medical Decision Making Differential Diagnosis Differential Diagnoses: The differential diagnosis associated with the presentation includes (Diverticulitis, abdominal pain chronic renal failure) Admission/Observation Consideration of admission/observation: Escalation of care including admission/observation considered (In a patient with dialysis and abdominal pain and prior divertiuclitis, admission was considered) Lab Data 01/11/23 11:58 01/11/23 11:58 Labs: Lab Results 01/11/23 01/11/23 Range/Units 11:58 11:58 WBC 6.9 (4.8-10.8) X10*3/uL RBC 2.86 L (4.60-5.80) X10*6/uL Hgb 10.4 L (14.0-18.0) g/dl Hct 27.7 L (42.0-52.0) % MCV 96.9 (80.0-98.0) fL MCH 36.4 H (27.0-33.0) pg MCHC 37.5 H (31.0-36.0) g/dl RDW 13.3 (11.0-16.0) % Plt Count 130 L (160-400) X10*3/uL MPV 11.7 (9.4-12.4) fL Immature Gran % (Auto) 0.4 (0.0-0.4) % Neut % (Auto) 71.0 (45-73) % Lymph % (Auto) 20.0 (20-40) % [place] % (Auto) 4.8 (2-11) % Eos % (Auto) 3.2 (0-4) % Baso % (Auto) 0.6 (0-2) % Lymph # (Auto) 1.4 (1.2-4.9) X10*3/uL [place] # (Auto) 0.3 (0.1-1.2) X10*3/uL Eos # (Auto) 0.2 (0.0-0.4) X10*3/uL Baso # (Auto) 0.0 (0.0-0.2) X10*3/uL Abs Immat Gran (auto) 0.03 (0.00-0.03) X10*3/uL Absolute Neuts (auto) 4.9 (2.0-8.3) x10*3/uL Absolute Nucleated RBC 0.000 (0.0-0.012) X10*3/uL Nucleated RBC % (auto) 0.0 (0.0-0.2) /100WBC Sodium 138 (135-145) mmol/L Potassium 4.1 (3.3-5.1) mmol/L Chloride 93 L (96-108) mmol/L Carbon Dioxide 32 H (22-29) mmol/L Anion Gap 17 (12-20) BUN 22 H (9-16) mg/dL Creatinine 6.83 H* (0.5-1.4) mg/dL Estim Creat Clear Calc 13.4 Estimated GFR 8 Random Glucose 98 (60-115) mg/dL Calcium 9.4 D (8.4-10.2) mg/dL Radiology Impression Discussion of test interpretation with radiology: I have reviewed the radiologist's reading. (CT of abdomen no acute diverticulitis) Medications Administered Discontinued Medications Generic Name Dose Route Start Last Admin Trade Name Freq PRN Reason Stop Dose Admin Acetaminophen 975 mg 01/11/23 12:37 01/11/23 14:08 Acetaminophen 325 Mg Tablet PO 01/11/23 12:38 Not Given ONCE ONE Discharge Plan Discharge Clinical Impression: Abdominal pain Patient Disposition: Home, Self-Care Instructions: Abdominal Pain (ED) Prescriptions: No Action (DME) pen needle, diabetic [BD Ultra-Fine Silvia Pen Needle] 32 gauge x 5/32 n eedle See Rx Instructions .ROUTE .MEDSUPPLY Qty: 150 11RF Rx Instructions: As directed five times a day doxazosin 2 mg tablet 2 mg PO DAILY Qty: 90 1RF Toujeo Max U-300 SoloStar 300 unit/mL (3 mL) insulin pen 50 unit subcut DAILY Qty: 6 6RF (DME) FreeStyle Lite Strips Strip See Rx Instructions .Route Qty: 150 11RF Rx Instructions: As directed 4x DAILY torsemide 20 mg tablet 80 mg PO BID Qty: 720 1RF Rx Instructions: OVERDUE FOR FOLLOW UP APPT. PLEASE CALL TO SCHEDULE APPT FOR 2022 @ [phone] TO CONTINUE RECVING REFILLS. carvedilol 25 mg tablet 25 mg PO BID 90 Days Qty: 180 2RF Rx Instructions: OVERDUE FOR APPT. PLEASE CALL [phone] TO SCHEDULE FOLLOW UP SO WE CAN CONTINUE REFILLING THIS PRESCRIPTION. isosorbide mononitrate 60 mg tablet extended release 24 hr 120 mg PO QAM 90 Days Qty: 180 2RF Rx Instructions: Current regimen (DME) lancets [FreeStyle Lancets] 28 gauge misc See Rx Instructions .Route Qty: 100 6RF Rx Instructions: As directed insulin aspart U-100 [Novolog FlexPen U-100 Insulin] 100 unit/mL (3 mL) insulin pen See Rx Instructions subcut .COMPLEX Qty: 15 4RF Rx Instructions: 10 units with breakfast, 24 units with lunch and 16 units with dinner subcutaneously; nifedipine 30 mg tablet extended release 120 mg PO BEDTIME 90 Days Qty: 360 0RF Rx Instructions: Must make cardiology appt for refills losartan 50 mg tablet 50 mg PO DAILY Qty: 30 0RF Rx Instructions: Must make cardiology appt for refills icosapent ethyl [Vascepa] 1 gram capsule 2 g PO BID Qty: 120 6RF ondansetron 4 mg tablet,disintegrating 4 mg PO Q8H PRN (Reason: nausea and vomiting) Qty: 7 0RF ondansetron 4 mg tablet,disintegrating 4 mg PO Q8H PRN (Reason: nausea and vomiting) Qty: 7 0RF atorvastatin 80 mg tablet 1 tab PO BEDTIME carvedilol 25 mg tablet 1 tab PO BID gabapentin 600 mg tablet 600 mg PO BEDTIME perphenazine 2 mg tablet 1 tab PO BID sertraline 100 mg tablet 2 tab PO DAILY oxcarbazepine 300 mg tablet 1 tab PO BID omeprazole 40 mg capsule,delayed release(DR/EC) 1 cap PO DAILY aspirin 81 mg tablet,delayed release (DR/EC) 1 tab PO DAILY tramadol 50 mg tablet 2 tab PO Q8H PRN (Reason: Pain) perphenazine 4 mg tablet 1 tab PO BID zolpidem 10 mg tablet 1 tab PO BEDTIME PRN (Reason: Insomnia) cholecalciferol (vitamin D3) 25 mcg (1,000 unit) tablet 2 tab PO DAILY albuterol sulfate [Ventolin HFA] 90 mcg/actuation HFA aerosol inhaler 2 puff PO Q4H PRN (Reason: Shortness Of Breath) insulin aspart U-100 [Novolog FlexPen U-100 Insulin] 100 unit/mL (3 mL) insulin pen 16 unit subcut QNOON insulin aspart U-100 [Novolog FlexPen U-100 Insulin] 100 unit/mL (3 mL) insulin pen 28 unit subcut DAILY@1700 cephalexin 500 mg capsule 500 mg PO QID 7 Days Qty: 28 0RF (DME) blood-glucose meter [FreeStyle Lite Meter] Kit See Rx Instructions .Route Rx Instructions: As directed (DME) lancets [TRUEplus Lancets] 33 gauge misc See Rx Instructions .ROUTE QID Qty: 100 Rx Instructions: As directed Referrals: Nuvia Crook, DRAFTING LAYOUT WORKER [Primary Care Provider] - 1 week
[2023-01-11 12:06] LABS: MANUAL DIFF FLAG NO
[2023-01-11 12:31] LABS: Basophils Percent Auto 0.6 % (0-2); Eosinophils Absolute Auto 0.2 X10*3/uL (0.0-0.4); Eosinophils Percent Auto 3.2 % (0-4); Hematocrit 27.7 % (42.0-52.0); Hemoglobin 10.4 g/dl (14.0-18.0); Imm Gran Abs Auto 0.03 X10*3/uL (0.00-0.03); Imm Gran Pct Auto 0.4 % (0.0-0.4); Lymphocytes Absolute Auto 1.4 X10*3/uL (1.2-4.9); Mean Corpuscular HGB Conc 37.5 g/dl (31.0-36.0); Mean Corpuscular Hemoglobin 36.4 pg (27.0-33.0); Mean Corpuscular Volume 96.9 fL (80.0-98.0); Mean Platelet Volume 11.7 fL (9.4-12.4); Monocytes Absolute Auto 0.3 X10*3/uL (0.1-1.2); Monocytes Percent Auto 4.8 % (2-11); Neutrophils Absolute Auto 4.9 x10*3/uL (2.0-8.3); Platelet Count 130 X10*3/uL (160-400); Red Blood Count 2.86 X10*6/uL (4.60-5.80); Red Cell Distribution Width 13.3 % (11.0-16.0); White Blood Count 6.9 X10*3/uL (4.8-10.8)
[2023-01-11 12:37] VITALS: BP 108/47; PULSE 59; RESP 16; O2SAT 96
[2023-01-11 13:06] LABS: Anion Gap 17 (12-20); Blood Urea Nitrogen 22 mg/dL (9-16); Calcium 9.4 mg/dL (8.4-10.2); Carbon Dioxide 32 mmol/L (22-29); Chloride 93 mmol/L (96-108); Creatinine Clr Calc Pharmacy 13.4; Estimated Glomerular Filt Rate 8; Glucose Random 98 mg/dL (60-115); Potassium 4.1 mmol/L (3.3-5.1); Sodium 138 mmol/L (135-145)
--- NOTE | 2023-01-11 14:06 | PC.NURSE ---
Pt refusing tylenol. Wants to go home. aware.
[2023-01-11 14:18] VITALS: BP 131/40; PULSE 60; RESP 18; O2SAT 98
--- NOTE | 2023-01-11 14:22 | PC.NURSE ---
PT REFUSED TYLENOL, STATED IT DOESN'T DO ANYTHING FOR ME . HE REQUESTED TO BE DISCHARGED.
--- NOTE | 2023-01-11 14:23 | PC.NURSE ---
DISCHARGE INSTRUCTIONS REVIEWED WITH PT, IV REMOVED. PT CALLED [facility] TO PICK HIM UP.
== END 2023-01-11 14:31 | disposition home or self-care (01) ==
PROVIDERS: Emergency Provider Emergency Medicine; PCP Nurse Practitioner Primary Care
DX: R10.32 Left lower quadrant pain (principal); Z79.899 Other long term (current) drug therapy
CPT/HCPCS: 36415; 74176; 80048; 85025; 99283; 99284

== ENCOUNTER 2023-01-13 08:40 | Emergency (ER) | payer OTHER, SELFPAY ==
[2023-01-13 08:49] VITALS: PULSE 88; BMI 31.2
[2023-01-13 08:52] VITALS: BP 156/61; PULSE 79; RESP 18; TEMP 36.6; O2SAT 100
--- NOTE | 2023-01-13 08:52 | MHC.EDTECH ---
Pt changed into hospital gown, placed on monitor
--- NOTE | 2023-01-13 09:33 | ED_ITS ---
HPI - Abdominal Pain General Chief Complaint: Abdominal Pain Stated Complaint: Abd pain x 1 week per EMS Time Seen by Provider: 01/13/23 09:10 Source: patient and EMS Mode of arrival: EMS Limitations: no limitations History of Present Illness HPI narrative: 62-year-old male with end-stage renal disease on hemodialysis return to the emergency department for evaluation of left-sided abdominal pain that started 6 days ago, pain is localized to the left side of the abdomen with no radiation, no associations of nausea or vomiting, patient with chronic diarrhea, history of diverticulitis which feels similar to his symptoms today. Patient was seen 2 days ago in the emergency department had a CT scan and workup which was unremarkable was instructed to take Tylenol for pain patient return for persistent of pain. Related Data Home Medications Medication Instructions Recorded Confirmed albuterol sulfate 90 mcg/actuation 2 puff PO Q4H PRN Shortness Of 12/01/21 12/18/22 aerosol inhaler (Ventolin HFA) Breath aspirin 81 mg tablet,delayed 1 tab PO DAILY 12/01/21 12/18/22 release atorvastatin 80 mg tablet 1 tab PO BEDTIME 12/01/21 12/18/22 carvedilol 25 mg tablet 1 tab PO BID 12/01/21 12/18/22 cholecalciferol (vitamin D3) 25 2 tab PO DAILY 12/01/21 12/18/22 mcg (1,000 unit) tablet gabapentin 600 mg tablet 600 mg PO BEDTIME 12/01/21 12/18/22 insulin aspart U-100 100 unit/mL 16 unit subcut QNOON 12/01/21 12/18/22 (3 mL) subcutaneous pen (Novolog FlexPen U-100 Insulin aspart) omeprazole 40 mg capsule,delayed 1 cap PO DAILY 12/01/21 12/18/22 release oxcarbazepine 300 mg tablet 1 tab PO BID 12/01/21 12/18/22 perphenazine 2 mg tablet 1 tab PO BID 12/01/21 12/18/22 perphenazine 4 mg tablet 1 tab PO BID 12/01/21 12/18/22 sertraline 100 mg tablet 2 tab PO DAILY 12/01/21 12/18/22 tramadol 50 mg tablet 2 tab PO Q8H PRN Pain 12/01/21 12/18/22 zolpidem 10 mg tablet 1 tab PO BEDTIME PRN Insomnia 12/01/21 12/18/22 blood-glucose meter (FreeStyle 06/20/22 12/18/22 Lite Meter kit) insulin aspart U-100 100 unit/mL 28 unit subcut DAILY@1700 06/20/22 12/18/22 (3 mL) subcutaneous pen (Novolog FlexPen U-100 Insulin aspart) lancets 33 gauge (TRUEplus Lancets) #100 ea 12/18/22 12/18/22 Previous Rx's Medication Instructions Recorded pen needle, diabetic 32 gauge x #150 ea 12/21/21 (BD Ultra-Fine Silvia Pen Needle) doxazosin 2 mg tablet 2 mg PO DAILY #90 tabs 04/06/22 ondansetron 4 mg disintegrating 4 mg PO Q8H PRN nausea and 06/09/22 tablet vomiting #7 tabs cephalexin 500 mg capsule 500 mg PO QID 7 days #28 caps 07/27/22 insulin glargine U-300 conc 300 50 unit (0.1667 mL) subcut DAILY 08/13/22 unit/mL (3 mL) subcutaneous pen #6 mL (Toujeo Max U-300 SoloStar) blood sugar diagnostic (FreeStyle #150 ea 08/17/22 Lite Strips) ondansetron 4 mg disintegrating 4 mg PO Q8H PRN nausea and 08/17/22 tablet vomiting #7 tabs torsemide 20 mg tablet 80 mg PO BID #720 tabs 10/05/22 carvedilol 25 mg tablet 25 mg PO BID 90 days #180 tabs 10/31/22 isosorbide mononitrate 60 mg 120 mg PO QAM 90 days #180 tabs 10/31/22 tablet,extended release 24 hr lancets 28 gauge (FreeStyle #100 ea 10/31/22 Lancets) insulin aspart U-100 100 unit/mL See Rx Instructions subcut 12/27/22 (3 mL) subcutaneous pen (Novolog .COMPLEX #15 mL FlexPen U-100 Insulin aspart) icosapent ethyl 1 gram capsule 2 g PO BID #120 caps 12/31/22 (Vascepa) losartan 50 mg tablet 50 mg PO DAILY #30 tabs 12/31/22 nifedipine 30 mg tablet,extended 120 mg PO BEDTIME 90 days #360 tabs 12/31/22 release oxycodone 5 mg tablet 5 mg PO Q8H PRN pain #10 tabs 01/13/23 Allergies Allergy/AdvReac Type Severity Reaction Status Date / Time No Known Allergies Allergy Verified 01/11/23 09:56 Review of Systems Review of Systems All other systems are reviewed and are negative Constitutional: Reports as per HPI and Reports no additional constitutional complaints Eyes: Reports as per HPI and Reports no additional eye complaints Reports system reviewed and no additional complaints, except as documented Cardiovascular: Reports as per HPI and Reports no additional cardiovascular complaints Respiratory: Reports as per HPI and Reports no additional respiratory complaints Gastrointestinal: Reports as per HPI and Reports no additional gastrointestinal complaints Genitourinary: Reports no additional female genitourinary complaints Musculoskeletal: Reports no additional musculoskeletal complaints Skin/Breast: Reports system reviewed and no additional complaints, except as docu Psychiatric: Reports no additional psychiatric complaints Endocrine: Reports no additional endocrine complaints Hematologic/Lymphatic: Reports no additional hematologic/lymphatic complaints Allergic/Immunologic: Reports no additional allergic/immunologic complaints Reports system reviewed and no additional complaints, except as documented and Reports Abnormal speech present [facility] Past Medical History Medical History Abnormal biopsy of kidney Anemia Anxiety Asthma CHF (congestive heart failure) CHF exacerbation Chronic kidney disease, stage 4 (severe) CKD (chronic kidney disease) stage 4, GFR 15-29 ml/min Congestive heart failure COPD (chronic obstructive pulmonary disease) Depression Depression with anxiety Diabetes mellitus with hyperglycemia, with long-term current use of insulin Diabetes type 2, uncontrolled Diastolic dysfunction Diverticulitis Elevated cholesterol Erectile dysfunction ESRD (end stage renal disease) on dialysis Essential hypertension Heart failure with preserved ejection fraction History of alcohol abuse History of headache HTN (hypertension) HTN (hypertension) Hx of pancreatitis Hyperglycemia Hypertension Hypertensive crisis Hypertriglyceridemia On beta doron at home Pancreatitis Peptic ulcer Proteinuria Sleep apnea Type 2 diabetes mellitus with chronic kidney disease Type 2 diabetes mellitus with hyperglycemia, with long-term current use of insulin Type 2 diabetes mellitus with polyneuropathy Type 2 diabetes mellitus with unspecified complications Surgical History History of surgery Hx of colonoscopy Hx of right inguinal hernia repair Family History Family History Mother Diabetes Social History Social History Household Members: None Housing: House Are you a primary career portals teacher to a significant other at home: No Do you presently have visiting nurse or other home services: Yes (CLIENT SERVICE MANAGER) Alcohol intake: never Patient Tobacco Use Status: Current someday Tobacco user Tobacco use type: Cigarette Years Smoked: 30 Smoked in Last 30 Days: Yes Second Hand Smoke Exposure: Yes Use of substances other than those prescribed or required for medical reasons: No Advance Directives: No Advance Directives Information Provided: Yes service: No Current occupational status: retired Physical Exam ED Vital Signs: Vital Signs - 24 hr 01/13/23 08:52 Temperature 98 F Pulse Rate 79 Respiratory Rate 18 Blood Pressure 156/61 H Pulse Oximetry 100 Oxygen Delivery Method Room Air BMI result Body Mass Index 31.2 Vital signs have been reviewed as appeared to be correct. Blood pressure normal. Heart rate normal. Respiration rate normal. Temperature normal. Oxygen saturation normal. Appearance: Alert. Oriented X3. No acute distress. Head: Normal external exam. Normocephalic. Atraumatic. No Rico signs noted. No raccoon eyes noted Eyes: PERRLA. EOMI. Conjunctiva and sclera normal. Eyelids normal. ENT: TM's Normal. Pharynx normal. Uvula midline. Moist mucous membranes. No trismus noted. No drooling noted. No muffled voice noted. Neck: Normal inspection. Neck supple. FROM. No adenopathy. Thyroid Normal. No meningeal signs. No neck mass noted. CVS: Normal heart rate and rhythm. Heart sound normal. No murmurs noted. Pulses normal throughout. Respiratory: No respiratory distress. Painless inspiration. Breath sounds normal. No wheezes/rales/rhonchi noted. Chest nontender. No accessory muscle usage noted or decreased air movement noted. Abdomen: Soft and nontender. Bowel sounds normal in all 4 quadrants. No distention noted. No organomegaly noted. No visible injury noted. Back: No CVA tenderness. Full range of motion noted. Skin: Skin warm and dry. Normal skin color. Normal skin turgor. No rashes/lesions/lacerations noted. Extremities: No lower extremity edema. Extremities exhibit normal range of motion. Extremities nontender. Neuro: Oriented X 3. Cranial nerve exam: II-XII are grossly intact No motor deficit. No sensory deficit. Reflexes normal. Course Course Course Narrative: 62-year-old male end-stage renal disease on dialysis came in with left side abdominal pain that he has been evaluated for in the ED with unremarkable CT of the abdomen and pelvis. Patient is scheduled for dialysis tomorrow. The case was discussed with Dr. Guerrero from renal it is okay to discharge the patient and go to dialysis tomorrow. Will discharge with oxycodone for pain control, follow up with his dialysis appointment tomorrow, follow-up with PCP for further evaluation. Medical Decision Making Differential Diagnosis Differential Diagnoses: The differential diagnosis associated with the presentation includes (Kidney stone, kidney infection, colitis, my official abdominal wall pain.) Lab Data MDM Lab Attestation statement: I reviewed the patient's lab results. 01/13/23 09:49 01/13/23 09:49 Labs: Lab Results 01/13/23 01/13/23 Range/Units 09:49 09:49 WBC 5.2 (4.8-10.8) X10*3/uL RBC 2.77 L (4.60-5.80) X10*6/uL Hgb 10.7 L (14.0-18.0) g/dl Hct 27.3 L (42.0-52.0) % MCV 98.6 H (80.0-98.0) fL MCH 38.6 H (27.0-33.0) pg MCHC 39.2 H (31.0-36.0) g/dl RDW 13.2 (11.0-16.0) % Plt Count 111 L (160-400) X10*3/uL MPV 11.5 (9.4-12.4) fL Immature Gran % (Auto) 0.2 (0.0-0.4) % Neut % (Auto) 70.6 (45-73) % Lymph % (Auto) 20.0 (20-40) % [place] % (Auto) 4.7 (2-11) % Eos % (Auto) 4.1 H (0-4) % Baso % (Auto) 0.4 (0-2) % Lymph # (Auto) 1.0 L (1.2-4.9) X10*3/uL [place] # (Auto) 0.2 (0.1-1.2) X10*3/uL Eos # (Auto) 0.2 (0.0-0.4) X10*3/uL Baso # (Auto) 0.0 (0.0-0.2) X10*3/uL Abs Immat Gran (auto) 0.01 (0.00-0.03) X10*3/uL Absolute Neuts (auto) 3.7 (2.0-8.3) x10*3/uL Absolute Nucleated RBC 0.000 (0.0-0.012) X10*3/uL Nucleated RBC % (auto) 0.0 (0.0-0.2) /100WBC Sodium 139 (135-145) mmol/L Potassium 4.6 (3.3-5.1) mmol/L Chloride 98 (96-108) mmol/L Carbon Dioxide 24 (22-29) mmol/L Anion Gap 22 H (12-20) BUN 50 H (9-16) mg/dL Creatinine 12.25 H* (0.5-1.4) mg/dL Estim Creat Clear Calc 7.5 Estimated GFR 4 Random Glucose 243 H (60-115) mg/dL Calcium 7.9 L D (8.4-10.2) mg/dL Total Bilirubin 0.4 (0.0-1.0) mg/dL Direct Bilirubin < 0.2 (0.0-0.5) mg/dL AST 13 (5-37) U/L ALT 11 (0-40) U/L Alkaline Phosphatase 98 (39-117) U/L Total Protein 8.2 H (6.5-8.0) g/dL Albumin 4.0 (3.5-5.0) g/dL Lipase 66 (8-78) U/L Medications Administered Discontinued Medications Generic Name Dose Route Start Last Admin Trade Name Freq PRN Reason Stop Dose Admin Oxycodone HCl 5 mg 01/13/23 09:37 01/13/23 10:06 Oxycodone Hcl Immed Release 5 Mg Tablet PO 01/13/23 09:38 5 mg ONCE ONE Administration Discharge Plan Discharge Clinical Impression: Abdominal pain Patient Disposition: Home, Self-Care Instructions: Abdominal Pain (ED) Prescriptions: New oxycodone 5 mg tablet 5 mg PO Q8H PRN (Reason: pain) Qty: 10 0RF Rx Instructions: Partial Fill upon patient request. No Action (DME) pen needle, diabetic [BD Ultra-Fine Silvia Pen Needle] 32 gauge x 5/32 needle See Rx Instructions .ROUTE .MEDSUPPLY Qty: 150 11RF Rx Instructions: As directed five times a day doxazosin 2 mg tablet 2 mg PO DAILY Qty: 90 1RF Toujeo Max U-300 SoloStar 300 unit/mL (3 mL) insulin pen 50 unit subcut DAILY Qty: 6 6RF (DME) FreeStyle Lite Strips Strip See Rx Instructions .Route Qty: 150 11RF Rx Instructions: As directed 4x DAILY torsemide 20 mg tablet 80 mg PO BID Qty: 720 1RF Rx Instructions: OVERDUE FOR FOLLOW UP APPT. PLEASE CALL TO SCHEDULE APPT FOR 2022 @ [phone] TO CONTINUE RECVING REFILLS. carvedilol 25 mg tablet 25 mg PO BID 90 Days Qty: 180 2RF Rx Instructions: OVERDUE FOR APPT. PLEASE CALL [phone] TO SCHEDULE FOLLOW UP SO WE CAN CON TINUE REFILLING THIS PRESCRIPTION. isosorbide mononitrate 60 mg tablet extended release 24 hr 120 mg PO QAM 90 Days Qty: 180 2RF Rx Instructions: Current regimen (DME) lancets [FreeStyle Lancets] 28 gauge misc See Rx Instructions .Route Qty: 100 6RF Rx Instructions: As directed insulin aspart U-100 [Novolog FlexPen U-100 Insulin] 100 unit/mL (3 mL) insulin pen See Rx Instructions subcut .COMPLEX Qty: 15 4RF Rx Instructions: 10 units with breakfast, 24 units with lunch and 16 units with dinner subcutaneously; nifedipine 30 mg tablet extended release 120 mg PO BEDTIME 90 Days Qty: 360 0RF Rx Instructions: Must make cardiology appt for refills losartan 50 mg tablet 50 mg PO DAILY Qty: 30 0RF Rx Instructions: Must make cardiology appt for refills icosapent ethyl [Vascepa] 1 gram capsule 2 g PO BID Qty: 120 6RF ondansetron 4 mg tablet,disintegrating 4 mg PO Q8H PRN (Reason: nausea and vomiting) Qty: 7 0RF ondansetron 4 mg tablet,disintegrating 4 mg PO Q8H PRN (Reason: nausea and vomiting) Qty: 7 0RF atorvastatin 80 mg tablet 1 tab PO BEDTIME carvedilol 25 mg tablet 1 tab PO BID gabapentin 600 mg tablet 600 mg PO BEDTIME perphenazine 2 mg tablet 1 tab PO BID sertraline 100 mg tablet 2 tab PO DAILY oxcarbazepine 300 mg tablet 1 tab PO BID omeprazole 40 mg capsule,delayed release(DR/EC) 1 cap PO DAILY aspirin 81 mg tablet,delayed release (DR/EC) 1 tab PO DAILY tramadol 50 mg tablet 2 tab PO Q8H PRN (Reason: Pain) perphenazine 4 mg tablet 1 tab PO BID zolpidem 10 mg tablet 1 tab PO BEDTIME PRN (Reason: Insomnia) cholecalciferol (vitamin D3) 25 mcg (1,000 unit) tablet 2 tab PO DAILY albuterol sulfate [Ventolin HFA] 90 mcg/actuation HFA aerosol inhaler 2 puff PO Q4H PRN (Reason: Shortness Of Breath) insulin aspart U-100 [Novolog FlexPen U-100 Insulin] 100 unit/mL (3 mL) insulin pen 16 unit subcut QNOON insulin aspart U-100 [Novolog FlexPen U-100 Insulin] 100 unit/mL (3 mL) insulin pen 28 unit subcut DAILY@1700 cephalexin 500 mg capsule 500 mg PO QID 7 Days Qty: 28 0RF (DME) blood-glucose meter [FreeStyle Lite Meter] Kit See Rx Instructions .Route Rx Instructions: As directed (DME) lancets [TRUEplus Lancets] 33 gauge misc See Rx Instructions .ROUTE QID Qty: 100 Rx Instructions: As directed Referrals: Nuvia Crook COMPUTER FORWARDING SYSTEM MARKUP CLERK [Primary Care Provider] -
[2023-01-13 09:53] LABS: MANUAL DIFF FLAG NO
[2023-01-13 10:04] LABS: Basophils Percent Auto 0.4 % (0-2); Eosinophils Absolute Auto 0.2 X10*3/uL (0.0-0.4); Eosinophils Percent Auto 4.1 % (0-4); Hematocrit 27.3 % (42.0-52.0); Hemoglobin 10.7 g/dl (14.0-18.0); Imm Gran Abs Auto 0.01 X10*3/uL (0.00-0.03); Imm Gran Pct Auto 0.2 % (0.0-0.4); Mean Corpuscular Hemoglobin 38.6 pg (27.0-33.0); Mean Corpuscular Volume 98.6 fL (80.0-98.0); Mean Platelet Volume 11.5 fL (9.4-12.4); Monocytes Absolute Auto 0.2 X10*3/uL (0.1-1.2); Monocytes Percent Auto 4.7 % (2-11); Neutrophils Absolute Auto 3.7 x10*3/uL (2.0-8.3); Neutrophils Percent Auto 70.6 % (45-73); Platelet Count 111 X10*3/uL (160-400); Red Blood Count 2.77 X10*6/uL (4.60-5.80); Red Cell Distribution Width 13.2 % (11.0-16.0); SCAN SMEAR FLAG 1; White Blood Count 5.2 X10*3/uL (4.8-10.8)
[2023-01-13 10:05] LABS: Mean Corpuscular HGB Conc 39.2 g/dl (31.0-36.0)
[2023-01-13] MEDS: oxyCODONE HCl Immed Release 5 MG TABLET PO (10:06)
[2023-01-13 10:53] LABS: Alanine Aminotransferase 11 U/L (0-40); Alkaline Phosphatase 98 U/L (39-117); Anion Gap 22 (12-20); Aspartate Amino Transferase 13 U/L (5-37); Bilirubin Direct < 0.2 mg/dL (0.0-0.5); Bilirubin Total 0.4 mg/dL (0.0-1.0); Blood Urea Nitrogen 50 mg/dL (9-16); Calcium 7.9 mg/dL (8.4-10.2); Carbon Dioxide 24 mmol/L (22-29); Chloride 98 mmol/L (96-108); Creatinine Clr Calc Pharmacy 7.5; Estimated Glomerular Filt Rate 4; Glucose Random 243 mg/dL (60-115); Lipase 66 U/L (8-78); Potassium 4.6 mmol/L (3.3-5.1); Sodium 139 mmol/L (135-145); Total Protein 8.2 g/dL (6.5-8.0)
[2023-01-13 11:59] VITALS: BP 138/47; PULSE 73; RESP 13; TEMP 36.6; O2SAT 100
== END 2023-01-13 12:06 | disposition home or self-care (01) ==
PROVIDERS: Emergency Provider Emergency Medicine; PCP Nurse Practitioner Primary Care
DX: R10.32 Left lower quadrant pain (principal); F17.210 Nicotine dependence, cigarettes, uncomplicated; Z71.6 Tobacco abuse counseling; Z79.899 Other long term (current) drug therapy
CPT/HCPCS: 36415; 80048; 80076; 83690; 85025; 99283

== ENCOUNTER 2023-02-13 11:34 | Emergency (ER) | payer OTHER, SELFPAY ==
[2023-02-13 11:42] VITALS: BP 157/57; PULSE 86; RESP 19; TEMP 36.6; O2SAT 98; BMI 30.7
--- NOTE | 2023-02-13 12:36 | ED.ABDPAIN ---
HPI - Abdominal Pain General Chief Complaint: Abdominal Pain Stated Complaint: abd pain Time Seen by Provider: 02/13/23 12:13 Source: patient Mode of arrival: ambulatory Limitations: language barrier (Lithuanian speaking only, paperhanger assistant used) History of Present Illness HPI narrative: 62-year-old male who presents emergency department for evaluation of abdominal pain . Patient states this is 3rd visit to the emergency department for this pain. States the pain is been present for approximately 1/2 months. He points to his epigastric area when asked to localize the pain. He cannot describe the character of the pain. He states that the pain is constant but waxes and wanes in intensity and is 10/10 at its worst. He states that eating food makes the pain worse immediately after eating. He states that if he eats a large amount of food a causes in the vomit. He has constant nausea. He denies any weight loss. He has taken Mylanta with no relief his pain. He states that he is not on omeprazole or Prilosec. Related Data Home Medications Medication Instructions Recorded Confirmed albuterol sulfate 90 mcg/actuation 2 puff PO Q4H PRN Shortness Of 12/01/21 12/18/22 aerosol inhaler (Ventolin HFA) Breath aspirin 81 mg tablet,delayed 1 tab PO DAILY 12/01/21 12/18/22 release atorvastatin 80 mg tablet 1 tab PO BEDTIME 12/01/21 12/18/22 carvedilol 25 mg tablet 1 tab PO BID 12/01/21 12/18/22 cholecalciferol (vitamin D3) 25 2 tab PO DAILY 12/01/21 12/18/22 mcg (1,000 unit) tablet gabapentin 600 mg tablet 600 mg PO BEDTIME 12/01/21 12/18/22 insulin aspart U-100 100 unit/mL 16 unit subcut QNOON 12/01/21 12/18/22 (3 mL) subcutaneous pen (Novolog FlexPen U-100 Insulin aspart) omeprazole 40 mg capsule,delayed 1 cap PO DAILY 12/01/21 12/18/22 release oxcarbazepine 300 mg tablet 1 tab PO BID 12/01/21 12/18/22 perphenazine 2 mg tablet 1 tab PO BID 12/01/21 12/18/22 perphenazine 4 mg tablet 1 tab PO BID 12/01/21 12/18/22 sertraline 100 mg tablet 2 tab PO DAILY 12/01/21 12/18/22 tramadol 50 mg tablet 2 tab PO Q8H PRN Pain 12/01/21 12/18/22 zolpidem 10 mg tablet 1 tab PO BEDTIME PRN Insomnia 12/01/21 12/18/22 blood-glucose meter (FreeStyle 06/20/22 12/18/22 Lite Meter kit) insulin aspart U-100 100 unit/mL 28 unit subcut DAILY@1700 06/20/22 12/18/22 (3 mL) subcutaneous pen (Novolog FlexPen U-100 Insulin aspart) lancets 33 gauge (TRUEplus Lancets) #100 ea 12/18/22 12/18/22 Previous Rx's Medication Instructions Recorded pen needle, diabetic 32 gauge x #150 ea 12/21/21 (BD Ultra-Fine Silvia Pen Needle) doxazosin 2 mg tablet 2 mg PO DAILY #90 tabs 04/06/22 ondansetron 4 mg disintegrating 4 mg PO Q8H PRN nausea and 06/09/22 tablet vomiting #7 tabs cephalexin 500 mg capsule 500 mg PO QID 7 days #28 caps 07/27/22 insulin glargine U-300 conc 300 50 unit (0.1667 mL) subcut DAILY 08/13/22 unit/mL (3 mL) subcutaneous pen #6 mL (Toujeo Max U-300 SoloStar) blood sugar diagnostic (FreeStyle #150 ea 08/17/22 Lite Strips) ondansetron 4 mg disintegrating 4 mg PO Q8H PRN nausea and 08/17/22 tablet vomiting #7 tabs torsemide 20 mg tablet 80 mg PO BID #720 tabs 10/05/22 carvedilol 25 mg tablet 25 mg PO BID 90 days #180 tabs 10/31/22 isosorbide mononitrate 60 mg 120 mg PO QAM 90 days #180 tabs 10/31/22 tablet,extended release 24 hr lancets 28 gauge (FreeStyle #100 ea 10/31/22 Lancets) insulin aspart U-100 100 unit/mL See Rx Instructions subcut 12/27/22 (3 mL) subcutaneous pen (Novolog .COMPLEX #15 mL FlexPen U-100 Insulin aspart) icosapent ethyl 1 gram capsule 2 g PO BID #120 caps 12/31/22 (Vascepa) losartan 50 mg tablet 50 mg PO DAILY #30 tabs 12/31/22 nifedipine 30 mg tablet,extended 120 mg PO BEDTIME 90 days #360 tabs 12/31/22 release oxycodone 5 mg tablet 5 mg PO Q8H PRN pain #10 tabs 01/13/23 aluminum hydrox-magnesium carb 254 10 ml PO QID PRN dyspepsia #355 mL 02/13/23 mg-237.5 mg/5 mL oral suspension (Gaviscon Extra Strength) metoclopramide HCl 10 mg tablet 10 mg PO Q6H PRN nausea and 02/13/23 (Reglan) vomiting #14 tabs omeprazole 20 mg capsule,delayed 20 mg PO DAILY 30 days #30 caps 02/13/23 release Allergies Allergy/AdvReac Type Severity Reaction Status Date / Time No Known Allergies Allergy Verified 01/11/23 09:56 Review of Systems Review of Systems Yes all other systems are reviewed and are negative [facility] Past Medical History [facility] Narrative: Social history: He occasionally smokes cigarettes. He denies alcohol use. He denies drug use. Medical History Abnormal biopsy of kidney Anemia Anxiety Asthma CHF (congestive heart failure) CHF exacerbation Chronic kidney disease, stage 4 (severe) CKD (chronic kidney disease) stage 4, GFR 15-29 ml/min Congestive heart failure COPD (chronic obstructive pulmonary disease) Depression Depression with anxiety Diabetes mellitus with hyperglycemia, with long-term current use of insulin Diabetes type 2, uncontrolled Diastolic dysfunction Diverticulitis Elevated cholesterol Erectile dysfunction ESRD (end stage renal disease) on dialysis Essential hypertension Heart failure with preserved ejection fraction History of alcohol abuse History of headache HTN (hypertension) HTN (hypertension) Hx of pancreatitis Hyperglycemia Hypertension Hypertensive crisis Hypertriglyceridemia On beta doron at home Pancreatitis Peptic ulcer Proteinuria Sleep apnea Type 2 diabetes mellitus with chronic kidney disease Type 2 diabetes mellitus with hyperglycemia, with long-term current use of insulin Type 2 diabetes mellitus with polyneuropathy Type 2 diabetes mellitus with unspecified complications Surgical History History of surgery Hx of colonoscopy Hx of right inguinal hernia repair Family History Family History Mother Diabetes Social History Social History Household Members: None Housing: House Are you a primary direct care counselor to a significant other at home: No Do you presently have visiting nurse or other home services: Yes ([employer]) Alcohol intake: never Patient Tobacco Use Status: Current someday Tobacco user Tobacco use type: Cigarette Years Smoked: 30 Second Hand Smoke Exposure: Yes service: No Current occupational status: retired Physical Exam ED Vital Signs: Vital Signs - 24 hr 02/13/23 11:42 Temperature 98 F Pulse Rate 86 Respiratory Rate 19 Blood Pressure 157/57 H Pulse Oximetry 98 BMI result Body Mass Index 30.7 Const Other: Awake, alert, male patient, pleasant, cooperative in no distress, answers all questions appropriately. HENMT Head: Yes normal to inspection, Yes normocephalic and Yes atraumatic Ears: external ears normal General nose exam: Normal external nose present Face and sinus: Yes normal facial exam Mouth: Normal oral and palatal mucosa present Throat: Yes posterior oropharynx normal Eyes General: appearance normal, both eyes and all related structures Pupils: Equal, round and reactive pupils present Neck Neck: Yes normal visual inspection, Yes no lymphadenopathy, Yes trachea midline and Yes supple Chest Chest palpation & inspection: normal inspection of the chest and normal palpation of entire chest wall Resp Effort & Inspection: normal respiratory effort and able to speak in complete sentences Auscultation: clear to auscultation bilaterally Cardio Rate: regular rate Rhythm: regular rhythm Heart sounds: S1 normal heart sound present, S2 normal heart sound present and no murmurs GI Other: Patient has moderate epigastric tenderness, mild right upper quadrant tenderness with a negative Ortega sign, normoactive bowel sounds, he does not appear to be distended, no rebound, no involuntary or voluntary guarding General: Yes no CVA tenderness Back/Spine/Pelvis Back: no CVA tenderness Skin General skin exam: no rashes or lesions noted Neuro Cranial nerves: Yes CN's II-XII intact bilaterally and Yes Equal, round and reactive pupils present Cognition (Neuro): normal cognition Motor exam (neuro): 5/5 motor strength present throughout Extrem General: Yes normal to inspection Psych Appearance: grossly normal Speech and movement: Normal speech and movement present Affect: normal affect Attitude: cooperative Thought process: Normal thought process present Thought content: Normal thought content present Medical Decision Making Medical Decision Making MDM Narrative: 62-year-old male who presents emergency department for evaluation of abdominal pain which is been constant for approximately 1/2 months. Patient states this is 3rd visit to the emergency department. I did review his visit on 01/13/2023-is laboratory evaluation was nondiagnostic and a CT scan of the abdomen pelvis was also nondiagnostic-he had diverticulosis but no diverticulitis. Patient's exam at this time did reveal epigastric and right upper quadrant tenderness. Given the fact that the pain is worse after eating especially after eating large meals I suspect that he has gastritis. The patient was started on Prilosec 20 mg once a day. He was also started on Reglan 10 mg every 6 hours as needed for nausea and vomiting. Patient will also be treated extra-strength Gaviscon. The patient was advised to follow-up with his PCP for referral to Gastroenterology. Differential Diagnosis Differential diagnosis includes but is not limited to gastritis, peptic ulcer disease, esophagitis Discharge Plan Discharge Clinical Impression: Gastritis Qualifiers: Gastritis type: unspecified gastritis Gastritis bleeding: without bleeding Patient Disposition: Home, Self-Care Instructions: Gastritis (ED) Additional Instructions: At this time, I believe that your pain is caused by too much acid in your stomach causing inflammation of your stomach (gastritis). Take Prilosec (omeprazole) 20 mg pills, 1 pill once a day. This medication sets off your acid production lodged her stomach to heal. Take Reglan (metoclopramide) 10 mg pills, 1 pill every 6 hours as needed for nausea and vomiting Take extra-strength Gaviscon 10 mL, 1 dose 4 times a day as needed for abdominal pain. Follow-up with your doctor in 2 days. Please return to the emergency department if your symptoms get worse or if you develop any symptoms that are concerning to you. Prescriptions: New omeprazole 20 mg capsule,delayed release(DR/EC) 20 mg PO DAILY 30 Days Qty: 30 0RF Gaviscon Extra Strength 254-237.5 mg/5 mL suspension 10 ml PO QID PRN (Reason: dyspepsia) Qty: 355 0RF metoclopramide HCl [Reglan] 10 mg tablet 10 mg PO Q6H PRN (Reason: nausea and vomiting) Qty: 14 0RF No Action (DME) pen needle, diabetic [BD Ultra-Fine Silvia Pen Needle] 32 gauge x 5/32 needle See Rx Instructions .ROUTE .MEDSUPPLY Qty: 150 11RF Rx Instructions: As directed five times a day doxazosin 2 mg tablet 2 mg PO DAILY Qty: 90 1RF Toujeo Max U-300 SoloStar 300 unit/mL (3 mL) insulin pen 50 unit subcut DAILY Qty: 6 6RF (DME) FreeStyle Lite Strips Strip See Rx Instructions .Route Qty: 150 11RF Rx Instructions: As directed 4x DAILY torsemide 20 mg tablet 80 mg PO BID Qty: 720 1RF Rx Instructions: OVERDUE FOR FOLLOW UP APPT. PLEASE CALL TO SCHEDULE APPT FOR 2022 @ [phone] TO CONTINUE RECVING REFILLS. carvedilol 25 mg tablet 25 mg PO BID 90 Days Qty: 180 2RF Rx Instructions: OVERDUE FOR APPT. PLEASE CALL [phone] TO SCHEDULE FOLLOW UP SO WE CAN CONTINUE REFILLING THIS PRESCRIPTION. isosorbide mononitrate 60 mg tablet extended release 24 hr 120 mg PO QAM 90 Days Qty: 180 2RF Rx Instructions: Current regimen (DME) lancets [FreeStyle Lancets] 28 gauge misc See Rx Instructions .Route Qty: 100 6RF Rx Instructions: As directed insulin aspart U-100 [Novolog FlexPen U-100 Insulin] 100 unit/mL (3 mL) insulin pen See Rx Instructions subcut .COMPLEX Qty: 15 4RF Rx Instructions: 10 units with breakfast, 24 units with lunch and 16 units with dinner subcutaneously; nifedipine 30 mg tablet extended release 120 mg PO BEDTIME 90 Days Qty: 360 0RF Rx Instructions: Must make cardiology appt for refills losartan 50 mg tablet 50 mg PO DAILY Qty: 30 0RF Rx Instructions: Must make cardiology appt for refills icosapent ethyl [Vascepa] 1 gram capsule 2 g PO BID Qty: 120 6RF ondansetron 4 mg tablet,disintegrating 4 mg PO Q8H PRN (Reason: nausea and vomiting) Qty: 7 0RF ondansetron 4 mg tablet,disintegrating 4 mg PO Q8H PRN (Reason: nausea and vomiting) Qty: 7 0RF atorvastatin 80 mg tablet 1 tab PO BEDTIME carvedilol 25 mg tablet 1 tab PO BID gabapentin 600 mg tablet 600 mg PO BEDTIME perphenazine 2 mg tablet 1 tab PO BID sertraline 100 mg tablet 2 tab PO DAILY oxcarbazepine 300 mg tablet 1 tab PO BID omeprazole 40 mg capsule,delayed release(DR/EC) 1 cap PO DAILY aspirin 81 mg tablet,delayed release (DR/EC) 1 tab PO DAILY tramadol 50 mg tablet 2 tab PO Q8H PRN (Reason: Pain) perphenazine 4 mg tablet 1 tab PO BID zolpidem 10 mg tablet 1 tab PO BEDTIME PRN (Reason: Insomnia) cholecalciferol (vitamin D3) 25 mcg (1,000 unit) tablet 2 tab PO DAILY albuterol sulfate [Ventolin HFA] 90 mcg/actuation HFA aerosol inhaler 2 puff PO Q4H PRN (Reason: Shortness Of Breath) insulin aspart U-100 [Novolog FlexPen U-100 Insulin] 100 unit/mL (3 mL) insulin pen 16 unit subcut QNOON insulin aspart U-100 [Novolog FlexPen U-100 Insulin] 100 unit/mL (3 mL) insulin pen 28 unit subcut DAILY@1700 cephalexin 500 mg capsule 500 mg PO QID 7 Days Qty: 28 0RF oxycodone 5 mg tablet 5 mg PO Q8H PRN (Reason: pain) Qty: 10 0RF Rx Instructions: Partial Fill upon patient request. (DME) blood-glucose meter [FreeStyle Lite Meter] Kit See Rx Instructions .Route Rx Instructions: As directed (DME) lancets [TRUEplus Lancets] 33 gauge misc See Rx Instructions .ROUTE QID Qty: 100 Rx Instructions: As directed
== END 2023-02-13 13:14 | disposition home or self-care (01) ==
LOC: HO.ED 13:00
PROVIDERS: Emergency Provider Emergency Medicine Emergency Medical Services; PCP Nurse Practitioner Primary Care
DX: K29.70 Gastritis, unspecified, without bleeding (principal); Z79.899 Other long term (current) drug therapy
CPT/HCPCS: 99282; 99283

== ENCOUNTER 2023-03-17 09:15 | Emergency (ER) | payer OTHER, SELFPAY ==
--- NOTE | ~2023-03-17 | XR_ITS ---
EXAMINATION: XR HAND, RIGHT CLINICAL INFORMATION: Right hand pain. COMPARISON: None available. TECHNIQUE: PA, lateral, and oblique views of the right hand. An indicator arrow points to the medial wrist. FINDINGS: Mild distal interphalangeal degenerative joint changes are seen most pronounced in the second and third digits with joint space narrowing and marginal osteophyte formation. There is no acute fracture or dislocation. The carpal bones are normally aligned. The distal radius and ulna are intact. The soft tissues are unremarkable. XR/XR hand RT min 3V IMPRESSION: Mild distal interphalangeal degenerative joint changes most consistent with osteoarthritis. No acute fracture.
[2023-03-17 09:17] VITALS: BP 182/79; PULSE 68; RESP 18; TEMP 36.8; O2SAT 96; BMI 30.7
--- NOTE | 2023-03-17 09:26 | ED_ITS ---
HPI - Extremity Problem General Chief complaint: Extremity Injury, Upper Stated complaint: R hand pain no inj Time Seen by Provider: 03/17/23 09:26 Source: patient Limitations: no limitations History of Present Illness HPI Narrative: 62-year-old male presents with atraumatic right hand pain. Patient describes the pain mostly over the 4th and 5th aspects of the hand. Patient denies any trauma or falls or injuries. Pain increases with range of motion of the right hand. Patient has longstanding history of end-stage renal disease is on dialysis Saturday and is currently being followed up for gastritis and being seen by GI doctor on the of next month. Patient describes the pain as 10/10. Patient has extensive medical history of diabetes CHF. Varicose veins peripheral artery disease. No other complaints at this time Related Data Home Medications Medication Instructions Recorded Confirmed albuterol sulfate 90 mcg/actuation 2 puff PO Q4H PRN Shortness Of 12/01/21 12/18/22 aerosol inhaler (Ventolin HFA) Breath aspirin 81 mg tablet,delayed 1 tab PO DAILY 12/01/21 12/18/22 release atorvastatin 80 mg tablet 1 tab PO BEDTIME 12/01/21 12/18/22 carvedilol 25 mg tablet 1 tab PO BID 12/01/21 12/18/22 cholecalciferol (vitamin D3) 25 2 tab PO DAILY 12/01/21 12/18/22 mcg (1,000 unit) tablet gabapentin 600 mg tablet 600 mg PO BEDTIME 12/01/21 12/18/22 insulin aspart U-100 100 unit/mL 16 unit subcut QNOON 12/01/21 12/18/22 (3 mL) subcutaneous pen (Novolog FlexPen U-100 Insulin aspart) omeprazole 40 mg capsule,delayed 1 cap PO DAILY 12/01/21 12/18/22 release oxcarbazepine 300 mg tablet 1 tab PO BID 12/01/21 12/18/22 perphenazine 2 mg tablet 1 tab PO BID 12/01/21 12/18/22 perphenazine 4 mg tablet 1 tab PO BID 12/01/21 12/18/22 sertraline 100 mg tablet 2 tab PO DAILY 12/01/21 12/18/22 tramadol 50 mg tablet 2 tab PO Q8H PRN Pain 12/01/21 12/18/22 zolpidem 10 mg tablet 1 tab PO BEDTIME PRN Insomnia 12/01/21 12/18/22 blood-glucose meter (FreeStyle 06/20/22 12/18/22 Lite Meter kit) insulin aspart U-100 100 unit/mL 28 unit subcut DAILY@1700 06/20/22 12/18/22 (3 mL) subcutaneous pen (Novolog FlexPen U-100 Insulin aspart) lancets 33 gauge (TRUEplus Lancets) #100 ea 12/18/22 12/18/22 Previous Rx's Medication Instructions Recorded pen needle, diabetic 32 gauge x #150 ea 12/21/21 (BD Ultra-Fine Silvia Pen Needle) doxazosin 2 mg tablet 2 mg PO DAILY #90 tabs 04/06/22 ondansetron 4 mg disintegrating 4 mg PO Q8H PRN nausea and 06/09/22 tablet vomiting #7 tabs cephalexin 500 mg capsule 500 mg PO QID 7 days #28 caps 07/27/22 insulin glargine U-300 conc 300 50 unit (0.1667 mL) subcut DAILY 08/13/22 unit/mL (3 mL) subcutaneous pen #6 mL (Toujeo Max U-300 SoloStar) blood sugar diagnostic (FreeStyle #150 ea 08/17/22 Lite Strips) ondansetron 4 mg disintegrating 4 mg PO Q8H PRN nausea and 08/17/22 tablet vomiting #7 tabs torsemide 20 mg tablet 80 mg PO BID #720 tabs 10/05/22 carvedilol 25 mg tablet 25 mg PO BID 90 days #180 tabs 10/31/22 isosorbide mononitrate 60 mg 120 mg PO QAM 90 days #180 tabs 10/31/22 tablet,extended release 24 hr lancets 28 gauge (FreeStyle #100 ea 10/31/22 Lancets) insulin aspart U-100 100 unit/mL See Rx Instructions subcut 12/27/22 (3 mL) subcutaneous pen (Novolog .COMPLEX #15 mL FlexPen U-100 Insulin aspart) icosapent ethyl 1 gram capsule 2 g PO BID #120 caps 12/31/22 (Vascepa) losartan 50 mg tablet 50 mg PO DAILY #30 tabs 12/31/22 nifedipine 30 mg tablet,extended 120 mg PO BEDTIME 90 days #360 tabs 12/31/22 release oxycodone 5 mg tablet 5 mg PO Q8H PRN pain #10 tabs 01/13/23 aluminum hydrox-magnesium carb 254 10 ml PO QID PRN dyspepsia #355 mL 02/13/23 mg-237.5 mg/5 mL oral suspension (Gaviscon Extra Strength) metoclopramide HCl 10 mg tablet 10 mg PO Q6H PRN nausea and 02/13/23 (Reglan) vomiting #14 tabs omeprazole 20 mg capsule,delayed 20 mg PO DAILY 30 days #30 caps 02/13/23 release oxycodone 5 mg tablet 5 mg PO BID PRN pain #7 tabs 03/17/23 Allergies Allergy/AdvReac Type Severity Reaction Status Date / Time No Known Allergies Allergy Verified 03/17/23 09:20 Review of Systems Review of Systems: General: No fever, no chills ENT: No sore throat, no ear pain Cardiovascular: No chest pain, no peripheral edema, no shortness of breath Respiratory: No dyspnea, no sputum production, no cough Muscle skeletal: Right hand pain GI: no nausea vomiting, no diarrhea Skin: No rash, no bruising Hematology: No bleeding, no bruising PMFSH Past Medical History Attestation statement: The following information was validated with the patient. Medical History Abnormal biopsy of kidney Anemia Anxiety Asthma CHF (congestive heart failure) CHF exacerbation Chronic kidney disease, stage 4 (severe) CKD (chronic kidney disease) stage 4, GFR 15-29 ml/min Congestive heart failure COPD (chronic obstructive pulmonary disease) Depression Depression with anxiety Diabetes mellitus with hyperglycemia, with long-term current use of insulin Diabetes type 2, uncontrolled Diastolic dysfunction Diverticulitis Elevated cholesterol Erectile dysfunction ESRD (end stage renal disease) on dialysis Essential hypertension Heart failure with preserved ejection fraction History of alcohol abuse History of headache HTN (hypertension) HTN (hypertension) Hx of pancreatitis Hyperglycemia Hypertension Hypertensive crisis Hypertriglyceridemia On beta doron at home Pancreatitis Peptic ulcer Proteinuria Sleep apnea Type 2 diabetes mellitus with chronic kidney disease Type 2 diabetes mellitus with hyperglycemia, with long-term current use of insulin Type 2 diabetes mellitus with polyneuropathy Type 2 diabetes mellitus with unspecified complications Surgical History History of surgery Hx of colonoscopy Hx of right inguinal hernia repair Family History Family History Mother Diabetes Social History Social History Household Members: None Housing: House Are you a primary critical care nurse practitioner to a significant other at home: No Do you presently have visiting nurse or other home services: Yes ([employer]) Alcohol intake: never Patient Tobacco Use Status: Current someday Tobacco user Tobacco use type: Cigarette Years Smoked: 30 Second Hand Smoke Exposure: Yes Advance Directives: No Advance Directives Information Provided: Yes service: No Current occupational status: retired Physical Exam Vital Signs: Vital Signs: Last Vital Signs Temp 98.3 F 03/17/23 09:17 Pulse 68 03/17/23 09:17 Resp 18 03/17/23 09:17 BP 182/79 H 03/17/23 09:17 Pulse Ox 96 03/17/23 09:17 O2 Del Method Room Air 03/17/23 09:17 BMI result Body Mass Index 30.7 General appearance: Awake, alert, cooperative, in no acute distress Skin: Warm, dry, no rash, no ecchymosis Eyes: PERRL, EOMI, no icterus ENT: Oropharynx normal, uvula midline Neck: Soft supple full range of motion Extremities: Right hand positive tenderness over the 4th 5th metatarsals to the MCP joints pain increases with range of motion no obvious swelling or edema positive capillary refill proximal pulses are intact. No erythema or lymphangitis noted. Tinel's test is negative Neuro: Alert oriented x3, no focal deficit Psych: Normal affect Course Course Course Narrative: Right hand pain Arthritis Carpal tunnel syndrome Ulnar nerve pain 62-year-old male with longstanding history of end-stage renal disease presents with atraumatic right hand pain. Patient states the pain is over his 4th and 5th digits pain increases with range of motion of his right hand denies any falls or trauma. X-ray pending of the right hand at this time symptoms are also concerning for question underlying ulnar nerve pain inflammation. Patient has no obvious signs of carpal tunnel syndrome on exam. Case discussed with patient at length in x-ray reviewed patient has obvious arthritis in his hand. Patient will be advised to follow-up with orthopedics and we will try a cock-up splint for comfort at this time. Patient states no relief with Madi wrap at home. Will place patient on short course of analgesics at this time Medical Decision Making Radiology Impression Discussion of test interpretation with radiology: I have reviewed the radiologist's reading. Radiologist Impression: [address] [id number] ReportSigned Patient: Jose D DickensMR#: [id number]: [id number]:[id number]/Sex: 62 / MADM Date: 03/17/23Loc: EDAttending Dr: Ordering Physician: Judson Wade Date of Service: 03/17/23 Procedure(s): XR hand RT min 3V Accession Number(s): [id number] cc: Judson Wade ~ EXAMINATION: XR HAND, RIGHT CLINICAL INFORMATION: Right hand pain. COMPARISON: None available. TECHNIQUE: PA, lateral, and oblique views of the right hand. An indicator arrow points to the medial wrist. FINDINGS: Mild distal interphalangeal degenerative joint changes are seen most pronounced in the second and third digits with joint space narrowing and marginal osteophyte formation. There is no acute fracture or dislocation. The carpal bones are normally aligned. The distal radius and ulna are intact. The soft tissues are unremarkable. XR/XR hand RT min 3V IMPRESSION: Mild distal interphalangeal degenerative joint changes most consistent with osteoarthritis. No acute fracture. Dictated By:Aleksandar Rico MDSigned By:<Electronically signed by Aleksandar Rico MD in [place]>03/17/23 1002 DD/ 0944TD/TT: Manager Access: Discharge Plan Discharge Clinical Impression: Arthritis of hand, right, Osteoarthritis Patient Disposition: Home, Self-Care Instructions: Osteoarthritis (ED) Additional Instructions: X-ray shows osteoarthritis in the right hand follow-up with orthopedics as recommended Medication as directed for discomfort. We will try wrist splint at this time for symptomatic relief Prescriptions: New oxycodone 5 mg tablet 5 mg PO BID PRN (Reason: pain) Qty: 7 0RF Rx Instructions: Partial Fill upon patient request. No Action (DME) pen needle, diabetic [BD Ultra-Fine Silvia Pen Needle] 32 gauge x 5/32 needle See Rx Instructions .ROUTE .MEDSUPPLY Qty: 150 11RF Rx Instructions: As directed five times a day doxazosin 2 mg tablet 2 mg PO DAILY Qty: 90 1RF Toujeo Max U-300 SoloStar 300 unit/mL (3 mL) insulin pen 50 unit subcut DAILY Qty: 6 6RF (DME) FreeStyle Lite Strips Strip See Rx Instructions .Route Qty: 150 11RF Rx Instructions: As directed 4x DAILY torsemide 20 mg tablet 80 mg PO BID Qty: 720 1RF Rx Instructions: OVERDUE FOR FOLLOW UP APPT. PLEASE CALL TO SCHEDULE APPT FOR 2022 @ [phone] TO CONTINUE RECVING REFILLS. carvedilol 25 mg tablet 25 mg PO BID 90 Days Qty: 180 2RF Rx Instructions: OVERDUE FOR APPT. PLEASE CALL [phone] TO SCHEDULE FOLLOW UP SO WE CAN CONTINUE REFILLING THIS PRESCRIPTION. isosorbide mononitrate 60 mg tablet extended release 24 hr 120 mg PO QAM 90 Days Qty: 180 2RF Rx Instructions: Current regimen (DME) lancets [FreeStyle Lancets] 28 gauge misc See Rx Instructions .Route Qty: 100 6RF Rx Instructions: As directed insulin aspart U-100 [Novolog FlexPen U-100 Insulin] 100 unit/mL (3 mL) insulin pen See Rx Instructions subcut .COMPLEX Qty: 15 4RF Rx Instructions: 10 units with breakfast, 24 units with lunch and 16 units with dinner subcutaneously; nifedipine 30 mg tablet extended release 120 mg PO BEDTIME 90 Days Qty: 360 0RF Rx Instructions: Must make cardiology appt for refills losartan 50 mg tablet 50 mg PO DAILY Qty: 30 0RF Rx Instructions: Must make cardiology appt for refills icosapent ethyl [Vascepa] 1 gram capsule 2 g PO BID Qty: 120 6RF ondansetron 4 mg tablet,disintegrating 4 mg PO Q8H PRN (Reason: nausea and vomiting) Qty: 7 0RF ondansetron 4 mg tablet,disintegrating 4 mg PO Q8H PRN (Reason: nausea and vomiting) Qty: 7 0RF atorvastatin 80 mg tablet 1 tab PO BEDTIME carvedilol 25 mg tablet 1 tab PO BID gabapentin 600 mg tablet 600 mg PO BEDTIME perphenazine 2 mg tablet 1 tab PO BID sertraline 100 mg tablet 2 tab PO DAILY oxcarbazepine 300 mg tablet 1 tab PO BID omeprazole 40 mg capsule,delayed release(DR/EC) 1 cap PO DAILY aspirin 81 mg tablet,delayed release (DR/EC) 1 tab PO DAILY tramadol 50 mg tablet 2 tab PO Q8H PRN (Reason: Pain) perphenazine 4 mg tablet 1 tab PO BID zolpidem 10 mg tablet 1 tab PO BEDTIME PRN (Reason: Insomnia) cholecalciferol (vitamin D3) 25 mcg (1,000 unit) tablet 2 tab PO DAILY albuterol sulfate [Ventolin HFA] 90 mcg/actuation HFA aerosol inhaler 2 puff PO Q4H PRN (Reason: Shortness Of Breath) insulin aspart U-100 [Novolog FlexPen U-100 Insulin] 100 unit/mL (3 mL) insulin pen 16 unit subcut QNOON insulin aspart U-100 [Novolog FlexPen U-100 Insulin] 100 unit/mL (3 mL) insulin pen 28 unit subcut DAILY@1700 cephalexin 500 mg capsule 500 mg PO QID 7 Days Qty: 28 0RF oxycodone 5 mg tablet 5 mg PO Q8H PRN (Reason: pain) Qty: 10 0RF Rx Instructions: Partial Fill upon patient request. omeprazole 20 mg capsule,delayed release(DR/EC) 20 mg PO DAILY 30 Days Qty: 30 0RF Gaviscon Extra Strength 254-237.5 mg/5 mL suspension 10 ml PO QID PRN (Reason: dyspepsia) Qty: 355 0RF metoclopramide HCl [Reglan] 10 mg tablet 10 mg PO Q6H PRN (Reason: nausea and vomiting) Qty: 14 0RF (DME) blood-glucose meter [FreeStyle Lite Meter] Kit See Rx Instructions .Route Rx Instructions: As directed (DME) lancets [TRUEplus Lancets] 33 gauge misc See Rx Instructions .ROUTE QID Qty: 100 Rx Instructions: As directed Referrals: Melvina Morelos MD [Physician] - (Osteoarthritis right hand) Print Language: Uzbek
--- NOTE | 2023-03-17 09:28 | PC.NURSE ---
patient a&ox3, rt wrist/hand painful to palpation- pt c/o 08/06 pain, + csm.pulses to extremity, call simental within reach, will continue to monitor
== END 2023-03-17 10:48 | disposition home or self-care (01) ==
PROVIDERS: Emergency Provider Emergency Medicine Emergency Medical Services; PCP Nurse Practitioner Primary Care
DX: M19.041 Primary osteoarthritis, right hand (principal); E11.9 Type 2 diabetes mellitus without complications; F17.210 Nicotine dependence, cigarettes, uncomplicated; Z71.6 Tobacco abuse counseling; Z79.899 Other long term (current) drug therapy; Z79.4 Long term (current) use of insulin
CPT/HCPCS: 73130; 99282; 99283

== ENCOUNTER → 2023-04-04 09:57 | Outpatient (BNVA) | payer OTHER, SELFPAY | PROVIDERS: PCP Nurse Practitioner Primary Care; Visit Provider Registered Nurse Diabetes Educator | DX: E11.649 Type 2 diabetes mellitus with hypoglycemia without coma (principal) | CPT/HCPCS: 99211 ==

== ENCOUNTER 2023-04-16 08:36 | Outpatient (REF) | payer OTHER, SELFPAY ==
[2023-04-16 10:25] LABS: Hematocrit 31.3 % (42.0-52.0); Hemoglobin 11.2 g/dl (14.0-18.0); Mean Corpuscular HGB Conc 35.8 g/dl (31.0-36.0); Mean Corpuscular Hemoglobin 33.8 pg (27.0-33.0); Mean Corpuscular Volume 94.6 fL (80.0-98.0); Mean Platelet Volume 12.2 fL (9.4-12.4); Platelet Count 133 X10*3/uL (160-400); Red Blood Count 3.31 X10*6/uL (4.60-5.80); Red Cell Distribution Width 13.2 % (11.0-16.0); White Blood Count 6.7 X10*3/uL (4.8-10.8)
[2023-04-16 11:12] LABS: Alanine Aminotransferase 12 U/L (0-40); Albumin Level 4.5 g/dL (3.5-5.0); Alkaline Phosphatase 88 U/L (39-117); Aspartate Amino Transferase 13 U/L (5-37); Bilirubin Direct < 0.1 mg/dL (0.0-0.5); Bilirubin Total 0.5 mg/dL (0.0-1.0); Iron 88 mcg/dL (45-160); Percent Iron Saturation 33 % (15-50); Total Iron Binding Capacity 265 mcg/dL (228-428); Total Protein 8.8 g/dL (6.5-8.0); Unsaturated Iron Binding 177 ug/dL
[2023-04-16 12:11] LABS: Ferritin 1791 ng/mL (20-250)
== END 2023-04-16 08:37 | disposition home or self-care (01) ==
LOC: HO.LAB 08:36
PROVIDERS: PCP Nurse Practitioner Primary Care; Visit Provider Internal Medicine
DX: R10.9 Unspecified abdominal pain (principal); K26.9 Duodenal ulcer, unspecified as acute or chronic, without hemorrhage or perforation; D64.9 Anemia, unspecified; N18.4 Chronic kidney disease, stage 4 (severe)
CPT/HCPCS: 36415; 80076; 82728; 83540; 85027; 99212

== ENCOUNTER → 2023-04-23 08:57 | Outpatient (BNVA) | payer OTHER, SELFPAY | PROVIDERS: PCP Nurse Practitioner Primary Care; Visit Provider Orthopaedic Surgery | DX: M65.331 Trigger finger, right middle finger (principal); M19.041 Primary osteoarthritis, right hand; R20.0 Anesthesia of skin; R20.2 Paresthesia of skin; E11.22 Type 2 diabetes mellitus with diabetic chronic kidney disease; N18.4 Chronic kidney disease, stage 4 (severe); E11.649 Type 2 diabetes mellitus with hypoglycemia without coma | CPT/HCPCS: 99202 ==

== ENCOUNTER 2023-05-09 08:24 | Outpatient (REF) | payer OTHER, SELFPAY | END 2023-05-09 08:25 | disposition home or self-care (01) | LOC: HO.US 08:24 | PROVIDERS: PCP Nurse Practitioner Primary Care; Visit Provider Internal Medicine | DX: Z13.89 Encounter for screening for other disorder (principal) ==

== ENCOUNTER 2023-05-21 08:20 | Day surgery (SDC) | payer OTHER, SELFPAY ==
[2023-05-17 16:59] VITALS: BMI 30.4
--- NOTE | 2023-05-20 12:13 | P.CONAN_ITS ---
Documented by User: Rebekah Cortes NP 05/20/23 12:22 HPI - Anesthesia Eval Consult details Narrative: 62yo M for Upper Endoscopy and Colonoscopy ESRD with HD, LUE fistula PMFSH Active Problems Active Problems: All Active Problems (Updated 04/23/23 @ 09:36 by Mason Dockery) Trigger finger, right middle finger (Acute) Arthritis of hand, right (Acute) Numbness and tingling in right hand (Acute) Thrombocytopenia (Acute) Chronic kidney disease, stage 4 (severe) (Acute) Anemia (Acute) Type 2 diabetes mellitus with hypoglycemia without coma (Acute) COVID-19 (Acute) Diabetes type 2, uncontrolled (Acute) Essential hypertension (Acute) Acute on chronic heart failure with preserved ejection fraction (HFpEF) (Acute) Duodenal ulcer disease (Acute) Varicose veins of right lower extremity with inflammation (Acute) PAD (peripheral artery disease) (Acute) Acute kidney injury superimposed on chronic kidney disease (Acute) Past Medical History Medical History Abnormal biopsy of kidney Anemia Anxiety Asthma CHF (congestive heart failure) CHF exacerbation Chronic kidney disease, stage 4 (severe) CKD (chronic kidney disease) stage 4, GFR 15-29 ml/min Congestive heart failure COPD (chronic obstructive pulmonary disease) Depression Depression with anxiety Diabetes mellitus with hyperglycemia, with long-term current use of insulin Diabetes type 2, uncontrolled Diastolic dysfunction Diverticulitis Elevated cholesterol Erectile dysfunction ESRD (end stage renal disease) on dialysis Essential hypertension Heart failure with preserved ejection fraction History of alcohol abuse History of headache HTN (hypertension) HTN (hypertension) Hx of pancreatitis Hyperglycemia Hypertension Hypertensive crisis Hypertriglyceridemia On beta doron at home Pancreatitis Peptic ulcer Proteinuria Sleep apnea Type 2 diabetes mellitus with chronic kidney disease Type 2 diabetes mellitus with hyperglycemia, with long-term current use of insulin Type 2 diabetes mellitus with polyneuropathy Type 2 diabetes mellitus with unspecified complications Family History Family History Mother Diabetes Family history of problems with anesthesia: No Surgical History Surgical History History of esophagogastroduodenoscopy (EGD) History of surgery Hx of colonoscopy Hx of right inguinal hernia repair History of Problems with Anesthesia: No Social History Social History Household Members: None Housing: House Are you a primary intensive care anaesthetist to a significant other at home: No Do you presently have visiting nurse or other home services: 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) Alcohol intake: never Patient Tobacco Use Status: Current someday Tobacco user Tobacco use type: Cigarette Years Smoked: 30 Second Hand Smoke Exposure: Yes service: No Current occupational status: retired Meds Allergies Allergy/AdvReac Type Severity Reaction Status Date / Time No Known Allergies Allergy Verified 04/23/23 08:59 Home Medications Medication Instructions Recorded Confirmed Last Taken Type albuterol sulfate 90 mcg/actuation 2 puff PO Q4H PRN Shortness Of 12/01/21 12/18/22 Unknown History aerosol inhaler (Ventolin HFA) Breath aspirin 81 mg tablet,delayed 1 tab PO DAILY 12/01/21 12/18/22 12/01/21 History release atorvastatin 80 mg tablet 1 tab PO BEDTIME 12/01/21 12/18/22 11/30/21 History cholecalciferol (vitamin D3) 25 2 tab PO DAILY 12/01/21 12/18/22 12/01/21 History mcg (1,000 unit) tablet gabapentin 600 mg tablet 600 mg PO BEDTIME 12/01/21 12/18/22 11/30/21 History omeprazole 40 mg capsule,delayed 1 cap PO DAILY 12/01/21 12/18/22 12/01/21 History release oxcarbazepine 300 mg tablet 1 tab PO BID 12/01/21 12/18/22 12/01/21 History perphenazine 2 mg tablet 1 tab PO BID 12/01/21 12/18/22 11/30/21 History perphenazine 4 mg tablet 1 tab PO BID 12/01/21 12/18/22 11/30/21 History sertraline 100 mg tablet 2 tab PO DAILY 12/01/21 12/18/22 11/30/21 History tramadol 50 mg tablet 2 tab PO Q8H PRN Pain 12/01/21 12/18/22 Unknown History zolpidem 10 mg tablet 1 tab PO BEDTIME PRN Insomnia 12/01/21 12/18/22 Unknown History blood-glucose meter (FreeStyle 06/20/22 12/18/22 Unknown History Lite Meter kit) lancets 33 gauge (TRUEplus Lancets) #100 ea 12/18/22 12/18/22 Unknown History cephalexin 500 mg capsule 500 mg PO QID 04/16/23 Unknown History fluticasone propionate 220 2 puff inhalation BID 04/16/23 Unknown History mcg/actuation HFA aerosol inhaler (Flovent HFA) isosorbide mononitrate 60 mg 120 mg PO QAM 04/16/23 Unknown History tablet,extended release 24 hr Exam Exam Date and Time: May 20, 2023 1213 Height,Weight and Vital Signs: Height 5 ft 11 in Weight 98.997 kg Pertinent Lab Results Pertinent Lab Results: Laboratory Tests 04/16/23 09:58 WBC 6.7 Hgb 11.2 L Hct 31.3 L Plt Count 133 L Narrative Narrative: EKG 2021 Vent. Rate : 052 BPM ? ? Atrial Rate : 052 BPM ?? P-R Int : 206 ms? QRS Dur : 146 ms ? ? QT Int : 478 ms ? ? ? P-R-T Axes : 064 -61 035 degrees ?? QTc Int : 444 ms ? Sinus bradycardia Right bundle branch block Left anterior fascicular block Bifascicular block Minimal voltage criteria for LVH, may be normal variant ( R in aVL ) Abnormal ECG When compared with ECG of 05-MAY-2022 10:44, Nonspecific T wave abnormality no longer evident in Anterior leads Assessment and Plan Assessment Anesthesia Assessment: Chart Reviewed Final Anesthetic Review Family History of Problems with Anesthesia: No History of Problems with Anesthesia: No Documented by User: Remberto Chou MD 05/21/23 08:17 [facility] Past Medical History Medical History Abnormal biopsy of kidney Anemia Anxiety Asthma CHF (congestive heart failure) CHF exacerbation Chronic kidney disease, stage 4 (severe) CKD (chronic kidney disease) stage 4, GFR 15-29 ml/min Congestive heart failure COPD (chronic obstructive pulmonary disease) Depression Depression with anxiety Diabetes mellitus with hyperglycemia, with long-term current use of insulin Diabetes type 2, uncontrolled Diastolic dysfunction Diverticulitis Elevated cholesterol Erectile dysfunction ESRD (end stage renal disease) on dialysis Essential hypertension Heart failure with preserved ejection fraction History of alcohol abuse History of headache HTN (hypertension) HTN (hypertension) Hx of pancreatitis Hyperglycemia Hypertension Hypertensive crisis Hypertriglyceridemia On beta doron at home Pancreatitis Peptic ulcer Proteinuria Sleep apnea Type 2 diabetes mellitus with chronic kidney disease Type 2 diabetes mellitus with hyperglycemia, with long-term current use of insulin Type 2 diabetes mellitus with polyneuropathy Type 2 diabetes mellitus with unspecified complications Family History Family History Mother Diabetes Surgical History Surgical History History of esophagogastroduodenoscopy (EGD) History of surgery Hx of colonoscopy Hx of right inguinal hernia repair Social History Social History Household Members: None Housing: House Are you a primary intensive care anaesthetist to a significant other at home: No Do you presently have visiting nurse or other home services: 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) Alcohol intake: never Patient Tobacco Use Status: Current someday Tobacco user Tobacco use type: Cigarette Years Smoked: 30 Second Hand Smoke Exposure: Yes service: No Current occupational status: retired [employer] Allergies Allergy/AdvReac Type Severity Reaction Status Date / Time No Known Allergies Allergy Verified 04/23/23 08:59 Home Medications Medication Instructions Recorded Confirmed Last Taken Type albuterol sulfate 90 mcg/actuation 2 puff PO Q4H PRN Shortness Of 12/01/21 12/18/22 Unknown History aerosol inhaler (Ventolin HFA) Breath aspirin 81 mg tablet,delayed 1 tab PO DAILY 12/01/21 12/18/22 12/01/21 History release atorvastatin 80 mg tablet 1 tab PO BEDTIME 12/01/21 12/18/22 11/30/21 History cholecalciferol (vitamin D3) 25 2 tab PO DAILY 12/01/21 12/18/22 12/01/21 History mcg (1,000 unit) tablet gabapentin 600 mg tablet 600 mg PO BEDTIME 12/01/21 12/18/22 11/30/21 History omeprazole 40 mg capsule,delayed 1 cap PO DAILY 0212/18/22 12/01/21 History release oxcarbazepine 300 mg tablet 1 tab PO BID 12/01/21 12/18/22 12/01/21 History perphenazine 2 mg tablet 1 tab PO BID 12/01/21 12/18/22 11/30/21 History perphenazine 4 mg tablet 1 tab PO BID 12/01/21 12/18/22 11/30/21 History sertraline 100 mg tablet 2 tab PO DAILY 12/01/21 12/18/22 11/30/21 History tramadol 50 mg tablet 2 tab PO Q8H PRN Pain 12/01/21 12/18/22 Unknown History zolpidem 10 mg tablet 1 tab PO BEDTIME PRN Insomnia 12/01/21 12/18/22 Unknown History blood-glucose meter (FreeStyle 06/20/22 12/18/22 Unknown History Lite Meter kit) lancets 33 gauge (TRUEplus Lancets) #100 ea 12/18/22 12/18/22 Unknown History cephalexin 500 mg capsule 500 mg PO QID 04/16/23 Unknown History fluticasone propionate 220 2 puff inhalation BID 04/16/23 Unknown History mcg/actuation HFA aerosol inhaler (Flovent HFA) isosorbide mononitrate 60 mg 120 mg PO QAM 04/16/23 Unknown History tablet,extended release 24 hr Exam Airway Heart: rrr Lungs: cta Assessment and Plan Final Anesthetic Review ASA Class: III Final Preanesthetic Review: No Changes in Pt Med Stat, Meds/Allgs Chart Reviewed, Consent Obtained/Reviewed and Anes Risks/Benef Reviewed Patient Risk: Intermediate Procedure Risk: Intermediate Anesthetic Plan Anesthetic Plan: MAC: and Agree w/ Assess. and Plan Disposition: Standard PACU
--- NOTE | 2023-05-21 08:37 | MHC.SHP ---
Pre-Procedural Eval Section A Date of Service: 05/21/23 Section B Chief Complaint: anemia,abdominal pain,duodenal ulcer, Details of Present Illness: PMH; Abnormal biopsy of kidney Anemia Anxiety Asthma CHF (congestive heart failure) CHF exacerbation Chronic kidney disease, stage 4 (severe) CKD (chronic kidney disease) stage 4, GFR 15-29 ml/min Congestive heart failure COPD (chronic obstructive pulmonary disease) Depression Depression with anxiety Diabetes mellitus with hyperglycemia, with long-term current use of insulin Diabetes type 2, uncontrolled Diastolic dysfunction Diverticulitis Elevated cholesterol Erectile dysfunction ESRD (end stage renal disease) on dialysis Essential hypertension Heart failure with preserved ejection fraction History of alcohol abuse History of headache HTN (hypertension) HTN (hypertension) Hx of pancreatitis Hyperglycemia Hypertension Hypertensive crisis Hypertriglyceridemia On beta doron at home Pancreatitis Peptic ulcer Proteinuria Sleep apnea Type 2 diabetes mellitus with chronic kidney disease Type 2 diabetes mellitus with hyperglycemia, with long-term current use of insulin Type 2 diabetes mellitus with polyneuropathy Type 2 diabetes mellitus with unspecified complications Surgical History History of esophagogastroduodenoscopy (EGD) History of surgery Hx of colonoscopy Hx of right inguinal hernia repair Present Medications: see Short Stay Collaborative assessment Allergies: Allergies Allergy/AdvReac Type Severity Reaction Status Date / Time No Known Allergies Allergy Verified 04/23/23 08:59 Review of Systems Review of Systems Comment: 10 point ROS negative except as above Exam Exam Comment: Gen appear: No acute distress HEENT: no icterus Chest: No overt resp distress Abd: soft, nontender, nondistended Psych: Stable affect, answering questions appropriately Neuro: A/Ox3 noted to move all extremities spontaneously Ext: no peripheral edema Plan Diagnosis/Plan: Unchanged I have reviewed the history and physical and performed a pertinent physical examination on my patient. No changes have occurred unless specified. Time Spent With Patient Time: Total time managing care of this patient today ____ minutes.
[2023-05-21 08:38] VITALS: BP 184/58; PULSE 73; RESP 20; TEMP 36.1; O2SAT 97
--- NOTE | 2023-05-21 08:38 | P.OP_ITS ---
Operative Note Operative Note Date of Service: 05/21/23 Narrative: Procedure:?Esophagogastroduodenoscopy and colonoscopy Endoscopist:?Sierra Hurd MD Indication:?Abd pain, anemia Anesthesia Provider:?Rosalva Ramires CRNA Anesthesia Type:?MAC Instrument:?Olympus GIF-H190, PCF-H190L EGD Procedure:?? The procedure, indications, preparation and potential complications were reviewed with the patient, who indicated understanding and gave written informed consent to proceed. A physical exam was performed. A distal attachment cap was affixed to the tip of the scope and the endoscope was introduced through the mouth, and advanced to the second part of duodenum. The mucosa was carefully examined on slow withdrawal of the endoscope.? There were no immediate complications.? Patient tolerated the procedure well. EGD Findings:? * Esophagus:? Normal mucosa noted in the entire esophagus.? The Z-line is at 40 cm. A moderate-sized hiatal hernia was noted with the diaphragmatic pinch at 46 cm. There was a partial nonobstructing Schatzki's ring at the GE junction. * Stomach:? Normal gastric mucosa. Retroflexion was performed in the fundus that showed Hill grade II hiatal hernia. * Duodenum:? erythema and edema the duodenal sweep was noted, but no distinct noted. Cold forceps biopsies were taken the duodenal bulb and 2nd portion of the duodenum to rule out celiac disease. Colonoscopy Procedure:? The patient was then turned for the colonoscopy. A digital rectal exam was performed which was normal.? A distal attachment cap was affixed to the tip of the scope and the colonoscope was then inserted through the anus and advanced through the colon to the cecum at 70 cm. Appendiceal orifice and ileocecal valve were identified. Mucosa was carefully examined under high definition white light as the instrument was slowly withdrawn in a retrograde panoramic fashion. Retroflexion was performed in rectum. The procedure was not difficult. There were no immediate obvious complications. The quality of the prep was BBPS: 3+2+3 = adequate Withdrawal time: 10 minutes Limitations: No limitation. Findings: Mucosa: Normal mucosa to cecum.? Protruding lesions: * Large internal hemorrhoids without stigmata of recent bleeding. Excavated lesions: * Severe diverticulosis of the left colon, with significantly tortuous sigmoid colon. Scattered diverticulosis in the remaining entire colon up to cecum. Impression: 1. Normal esophageal mucosa 2. Hiatal hernia 3. Schatzki's ring 4. Normal gastric mucosa 5. Duodenitis (biopsy) 6. Normal colon 7. Diverticulosis 8. Internal hemorrhoids Recommendations:?? * Abd pain possibly from a duodenal ulcer which has now healed up. * Cont Omeprazolw 20mg PO once daily * Smoking cessation * Await pathology results.? * Repeat colonoscopy for asymptomatic colon cancer screening in 10 years if patient still in good health.
[2023-05-21 08:40] LABS: Glucose, Whole Blood 103 mg/dL (60-115)
[2023-05-21] MEDS: 0.9 % Sodium Chloride 1,000 ML 50 ML IVCONT (08:52)
--- NOTE | 2023-05-21 09:18 | PC.NURSE ---
unable to get necklace off
[2023-05-21 09:37] LABS: Anion Gap 21 (12-20); Carbon Dioxide 25 mmol/L (22-29); Chloride 97 mmol/L (96-108); Potassium 4.8 mmol/L (3.3-5.1); Sodium 138 mmol/L (135-145)
[2023-05-21 10:23] VITALS: BP 120/42; PULSE 92; RESP 16; TEMP 36.7; O2SAT 99
[2023-05-21 10:28] VITALS: BP 126/69; PULSE 91; RESP 16; O2SAT 99
[2023-05-21 10:33] VITALS: BP 113/68; PULSE 84; RESP 16; O2SAT 100
[2023-05-21 10:38] VITALS: BP 121/61; PULSE 82; RESP 16; O2SAT 100
[2023-05-21 10:48] VITALS: BP 113/48; PULSE 78; RESP 16; TEMP 37.2; O2SAT 99
== END 2023-05-21 11:39 | disposition home or self-care (01) ==
PROVIDERS: Nurse Practitioner; PCP Nurse Practitioner Primary Care; Visit Provider Internal Medicine
PROC: (CPT 45378; principal; 2023-05-21 09:40)
DX: K29.80 Duodenitis without bleeding (principal); K44.9 Diaphragmatic hernia without obstruction or gangrene; K22.2 Esophageal obstruction; K57.30 Diverticulosis of large intestine without perforation or abscess without bleeding; K64.8 Other hemorrhoids; D64.9 Anemia, unspecified; E11.22 Type 2 diabetes mellitus with diabetic chronic kidney disease; I13.2 Hypertensive heart and chronic kidney disease with heart failure and with stage 5 chronic kidney disease, or end stage renal disease; N18.6 End stage renal disease; I50.33 Acute on chronic diastolic (congestive) heart failure; Z99.2 Dependence on renal dialysis; E78.5 Hyperlipidemia, unspecified; J44.9 Chronic obstructive pulmonary disease, unspecified; F17.210 Nicotine dependence, cigarettes, uncomplicated; Z79.82 Long term (current) use of aspirin; Z79.899 Other long term (current) drug therapy; Z79.4 Long term (current) use of insulin; Z71.6 Tobacco abuse counseling
CPT/HCPCS: 45378; 43239; 36415; 80051; 82947; 88305; 88342

== ENCOUNTER → 2023-05-21 08:20 | Outpatient (BNV) | payer OTHER, SELFPAY | PROVIDERS: PCP Nurse Practitioner Primary Care; Visit Provider Internal Medicine | DX: R10.9 Unspecified abdominal pain (principal); D64.9 Anemia, unspecified; K22.2 Esophageal obstruction; K57.90 Diverticulosis of intestine, part unspecified, without perforation or abscess without bleeding | CPT/HCPCS: 43239; 45378 ==

== ENCOUNTER 2023-05-23 08:32 | Outpatient (REF) | payer OTHER, SELFPAY ==
--- NOTE | ~2023-05-23 | US_ITS ---
EXAMINATION: US COMPLETE ABDOMEN WITH LIVER ELASTOGRAPHY CLINICAL INFORMATION: Thrombocytopenia. COMPARISON: None available. TECHNIQUE: Real-time imaging of the abdominal viscera. Noninvasive ultrasound liver fibrosis assessment is performed using Pk ElastPQ point quantification shear wave elastography (2D-SWE) with a C5-2 MHz transducer. Multiple elastography samples are obtained. FINDINGS: PANCREAS: Normal. The visualized pancreatic head and body are normal in appearance. The remainder of the pancreas is obscured from visualization by the overlying bowel gas. ABDOMINAL AORTA: The proximal, middle, and distal aortic segments are normal in caliber. INFERIOR VENA CAVA: Visualized portions are normal. LIVER: Normal. The liver demonstrates normal size, contour and echogenicity. No focal lesion or intrahepatic biliary duct dilatation. The right lobe measures 19.0 cm in length. The left lobe measures 10.2 cm in length. Portal flow is hepatopedal. Shear wave liver elastography median stiffness is 1.32 m/s (reference: normal median stiffness is 1.3 m/s or less). IQR/median stiffness to assess sampling precision is 0.11 (reference: good quality data set is IQR/median stiffness of 0.15 or less). GALLBLADDER: Normal. The gallbladder is physiologically distended without evidence of stones, sludge, polyps, wall thickening or pericholecystic fluid. COMMON BILE DUCT: Normal in caliber measuring 0.6 cm in diameter. RIGHT KIDNEY: There is an anechoic cyst lower pole right kidney measuring 1.1 x 0.9 x 1.0 cm. No hydronephrosis. No renal calculi or focal parenchymal lesions. The kidney measures 9.4 cm in maximum dimension. LEFT KIDNEY: Normal. No hydronephrosis. No renal calculi or focal parenchymal lesions. The kidney measures 8.9 cm in maximum dimension. SPLEEN: The spleen is enlarged with a small splenule at the hilum measuring 1.0 x 0.7 x 1.0). The spleen measures 14.6 cm in maximum dimension. FREE FLUID: None. US/US abdomen comp w elastography IMPRESSION: 1. Mild hepatic steatosis without focal lesion. Bilateral small atrophic kidneys. There is anechoic cyst lower pole right kidney measuring 1.1 cm. Mild splenomegaly without focal lesion. 2. Liver elastography: Median liver stiffness measures 1.32 m/s corresponding to high probability normal. REFERENCE: Society of Radiologists in Ultrasound Liver Stiffness Thresholds (2020): LIVER STIFFNESS THRESHOLDS: *Liver Stiffness equal or less than 1.3 m/s: High probability of being normal. *Liver Stiffness less than 1.7 m/s: In the absence of other known clinical signs, rules out compensated advanced chronic liver disease. *Liver Stiffness 1.7-2.1 m/s: Suggestive of compensated advanced chronic liver disease but need further test for confirmation. *Liver Stiffness over 2.1 m/s: Rules in compensated advanced chronic liver disease. *Liver Stiffness over 2.4 m/s: Suggestive of clinically significant portal hypertension. QUALITY OF DATA SET: *IQR/Median value equal or less than 0.15 implies a quality data set. *IQR/Median value over 0.15 implies a poor quality data set. SIGNIFICANT CHANGE FROM PRIOR EXAM: Significant change if liver stiffness measurement is 10% or greater from prior exam. OTHER CONSIDERATIONS: The stage of liver fibrosis may be overestimated in the setting of acute hepatitis, liver inflammation, elevated liver function tests, hepatic vascular congestion, obstructive cholestasis, non-fasting state, and infiltrative diseases such as amyloidosis and lymphoma. In some patients with NAFLD, the liver stiffness thresholds for compensated advanced chronic liver disease may be lower. In causes other than viral hepatitis and NAFLD, liver stiffness thresholds are not well established.
== END 2023-05-23 08:33 | disposition home or self-care (01) ==
LOC: HO.US 08:32
PROVIDERS: PCP Nurse Practitioner Primary Care; Visit Provider Internal Medicine
DX: D69.6 Thrombocytopenia, unspecified (principal)
CPT/HCPCS: 76705; 76981

== ENCOUNTER 2023-05-28 12:12 | Outpatient (AMB) | payer OTHER, SELFPAY ==
--- NOTE | 2023-05-28 12:23 | A.OFFVIS_ITS ---
Intake Vital Signs 05/28/23 12:31 Height 5 ft 11 in Weight 222 lb 10.67 oz BMI 31.1 BP 122/68 Blood Pressure Location Rt brachial Position Sitting Pulse 86 Pulse Source Pulse Oximeter Intake Visit Reasons: f/u Type 2 DM Intake Note: Patient present today to follow up on Type 2 Diabetes Mellitus. Patient receives DME supplies through: [facility] Last Diabetic Eye exam: DUE Last Podiatry Visit: 04/2023 Random Glucose: 72 mg/dl HgA1C: 6.2% 05/28/2023 Blocker Hand Required: No Information Interpreted: non-clinical & clinical Accompanied by: Self / Same As Patient Allergies No Known Allergies Allergy (Verified 05/28/23 12:25) Medication List - Last Reconciled 05/28/23 by Eliecer Bob MD albuterol sulfate 90 mcg/actuation (Ventolin HFA) 2 puffs PO Q4H PRN aspirin 1 tab PO DAILY atorvastatin 1 tab PO BEDTIME blood sugar diagnostic (FreeStyle Lite Strips) As directed 4x DAILY blood-glucose meter (FreeStyle Lite Meter kit) As directed carvedilol 25 mg PO BID 90 days cholecalciferol (vitamin D3) 2 tabs PO DAILY doxazosin 2 mg PO DAILY fluticasone propionate 220 mcg/actuation (Flovent HFA) 2 puffs inhalation BID gabapentin 600 mg PO BEDTIME icosapent ethyl (Vascepa) 2 grams (2 x 1 gram) PO BID insulin aspart U-100 (Novolog FlexPen U-100 Insulin aspart) 10 units with breakfast, 24 units with lunch and 16 units with dinner subcutaneously; insulin glargine U-300 conc (Toujeo Max U-300 SoloStar) 50 units (0.1667 mL) subcut DAILY isosorbide mononitrate ER 120 mg PO QAM lancets (TRUEplus Lancets) As directed lancets (FreeStyle Lancets) As directed losartan 50 mg PO DAILY metoclopramide HCl (Reglan) 10 mg PO Q6H PRN nifedipine ER 120 mg (4 x 30 mg) PO BEDTIME 90 days omeprazole 20 mg PO BID 30 days oxcarbazepine 1 tab PO BID pen needle, diabetic (BD Ultra-Fine Silvia Pen Needle) As directed five times a day perphenazine 1 tab PO BID sertraline 2 tabs PO DAILY sucralfate 10 mL PO QIDACHS 2 weeks torsemide 80 mg (4 x 20 mg) PO BID tramadol 2 tabs PO Q8H PRN zolpidem 1 tab PO BEDTIME PRN HPI HPI Comments History of Present Illness Details Patient is a 62-year-old male with DM type 2 diagnosed in in 1999, who presents for management of diabetes. .. . Recently had a fistula placed in left arm for possible dialysis. He is currently on hemodialysis Past medical history includes :DM2, HTN, HLD, HTG, CKD IV, sleep apnea, hx pancreatitis (2012, 2020) Micro and macrovascular complications: + retinopathy, + nephropathy, +neuropathy, Diabetes medications:, NovoLog 10-28-16 units, Toujeo max 50 units Abhishek download shows he is using the sensor 69% of the time. Average glucose is 155 with GMI i of 7% and variability 34.1%. 69% range with 23% hyperglycemia and 2% hypoglycemia Symptoms reported: denies tingling in legs, reports they get hot Hypoglycemia: rare . Podiatry - goes every 2 months Last sqaw optho in Aug 2022 next appt Aug 2023 Laboratory Tests 09/25/21 06:22 Creatinine 4.55 H* Estimated GFR 13 04/03/21 05/22/21 16:40 13:37 Creatinine 3.71 H Estimated GFR 17 Hgb A1c (Clinic) 7.4 H [facility] Medical History Abnormal biopsy of kidney Anemia Anxiety Asthma CHF (congestive heart failure) CHF exacerbation Chronic kidney disease, stage 4 (severe) CKD (chronic kidney disease) stage 4, GFR 15-29 ml/min Congestive heart failure COPD (chronic obstructive pulmonary disease) Depression Depression with anxiety Diabetes mellitus with hyperglycemia, with long-term current use of insulin Diabetes type 2, uncontrolled Diastolic dysfunction Diverticulitis Elevated cholesterol Erectile dysfunction ESRD (end stage renal disease) on dialysis Essential hypertension Heart failure with preserved ejection fraction History of alcohol abuse History of headache HTN (hypertension) HTN (hypertension) Hx of pancreatitis Hyperglycemia Hypertension Hypertensive crisis Hypertriglyceridemia On beta doron at home Pancreatitis Peptic ulcer Proteinuria Sleep apnea Type 2 diabetes mellitus with chronic kidney disease Type 2 diabetes mellitus with hyperglycemia, with long-term current use of insulin Type 2 diabetes mellitus with polyneuropathy Type 2 diabetes mellitus with unspecified complications Surgical History History of esophagogastroduodenoscopy (EGD) History of surgery Hx of colonoscopy Hx of right inguinal hernia repair Family History Mother Diabetes Social History Household Members: None Housing: House Are you a primary managed care coordinator to a significant other at home: No Do you presently have visiting nurse or other home services: Yes ([employer]) Alcohol intake: never Patient Tobacco Use Status: Current everyday Tobacco user Tobacco use type: Cigarette Years Smoked: 30 Second Hand Smoke Exposure: Yes service: No Current occupational status: retired Physical Exam Vital Signs: BMI result Body Mass Index 31.1 Absence of Cushingoid features. Absence of acromegalic features. Neck exam revea ls nl size thyroid about 15 gms. No thyroid nodules palpable. No carotid bruits present. Lungs CTA. Heart S1 S2, Reg R/R. No M/R/ G. Skin exam reveals absence of vitiligo or acanthosis nigricans. Abdominal exam reveals Soft NT/ND with NA BS. No organomegaly present. Neck Other: . Extrem Other: Visual exam of foot performed. No ulcerations or open lesions. No onchomycosis, no callouses.Pulses 2 + distally Sensation intact to monofilament exam. Vibratory sensation sensed is intact with 128 Hz tuning fork Results AMB Hemoglobin A1c AMB Hemoglobin A1c 6.2 % Last Edit by DEUCE Bernal on 05/28/23 12:48 Results Reviewed Results Reviewed: 05/28/23 12:39 Glucose, Whole Blood Routine Laboratory Last Values Glucose (Clinic) 72 mg/dL (60-115) 05/28/23 12:39 Hgb A1c (Clinic) 6.2 % (4.0-6.0) H 05/28/23 12:42 Assessment & Plan Assessment & Plan (1) Diabetes type 2, uncontrolled: Code(s): E11.65 - Type 2 diabetes mellitus with hyperglycemia Qualifiers: Coma presence: without coma Glycemic state: with hypoglycemia Qualified Code(s): E11.649 - Type 2 diabetes mellitus with hypoglycemia without coma Plan: This 62-year-old male with history of type 2 diabetes in the setting of end-stage renal disease on hemodialysis being treated with basal-bolus insulin with what appears to be excellent glycemic control and known microvascular complications namely neuropathy, end-stage renal disease and retinopathy as well as congestive heart failure. Plan is to continue current management. Will recheck lipid profile Orders: Orders Lipid Panel Today E11.65 - Type 2 diabetes mellitus with hyperglycemia AMB Hemoglobin A1c Today E11.9 - Type 2 diabetes mellitus without complications Coding Level of Care Code Est Pt Level 4 (87308) Diagnoses Diabetes type 2, uncontrolled E11.649 Coma presence: without coma Glycemic state: with hypoglycemia
[2023-05-28 12:31] VITALS: BP 122/68; PULSE 86; BMI 31.1
[2023-05-28 12:44] LABS: Glucose, Whole Blood 72 mg/dL (60-115)
== END 2023-05-28 13:25 | disposition home or self-care (01) ==
PROVIDERS: PCP Nurse Practitioner Primary Care; Referring Provider Nurse Practitioner Primary Care; Visit Provider Internal Medicine Endocrinology, Diabetes & Metabolism
DX: E11.649 Type 2 diabetes mellitus with hypoglycemia without coma (principal); E11.9 Type 2 diabetes mellitus without complications
CPT/HCPCS: 99214

== ENCOUNTER → 2023-05-28 12:12 | Outpatient (BNVA) | payer OTHER, SELFPAY | PROVIDERS: Visit Provider Internal Medicine Endocrinology, Diabetes & Metabolism | DX: E11.649 Type 2 diabetes mellitus with hypoglycemia without coma (principal) | CPT/HCPCS: 82947; 83036; 99212 ==

== ENCOUNTER 2023-06-04 08:15 | Outpatient (REF) | payer OTHER, SELFPAY ==
[2023-06-04 09:44] LABS: Cholesterol 347 mg/dL; HDL Cholesterol 22 mg/dL; Triglycerides 1669 mg/dL
== END 2023-06-04 08:16 | disposition home or self-care (01) ==
LOC: HO.LAB 08:15
PROVIDERS: PCP Nurse Practitioner Primary Care; Visit Provider Internal Medicine Endocrinology, Diabetes & Metabolism
DX: E11.65 Type 2 diabetes mellitus with hyperglycemia (principal); E11.649 Type 2 diabetes mellitus with hypoglycemia without coma; E11.22 Type 2 diabetes mellitus with diabetic chronic kidney disease; I12.9 Hypertensive chronic kidney disease with stage 1 through stage 4 chronic kidney disease, or unspecified chronic kidney disease; N18.4 Chronic kidney disease, stage 4 (severe); D63.1 Anemia in chronic kidney disease; K26.9 Duodenal ulcer, unspecified as acute or chronic, without hemorrhage or perforation; R10.9 Unspecified abdominal pain
CPT/HCPCS: 36415; 80061; 99212

== ENCOUNTER 2023-06-04 08:49 | Outpatient (AMB) | payer OTHER, SELFPAY ==
[2023-06-04 09:01] VITALS: BP 139/63; PULSE 71; BMI 29.7
--- NOTE | 2023-06-04 09:01 | A.OFFVIS_ITS ---
Intake Vital Signs 06/04/23 09:01 Height 5 ft 11 in Weight 212 lb 15.465 oz BMI 29.7 BP 139/63 Blood Pressure Location Lt brachial Position Sitting Pulse 71 Intake Visit Reasons: S/p egd/colon Intake Note: Jose D presents in the office as a follow up EGD and COLO CC: No concerns today just here for the results. [employer]cer Required: No Allergies No Known Allergies Allergy (Verified 06/04/23 09:01) HPI HPI Comments History of Present Illness Details 62 y.o M with PMH of PUD, CKD stage IV, uncontrolled HTN leading to hypertrophic CM, prev pt of Dr Caraballo who is here for persistent abdominal pain since December. Previous history is pertinent for admission for abd pain and bleeding from 10mm duodenal sweep ulcer in January 2021 (EGD - Dr Caraballo). Path was consistent with peptic ulcer at that time. No H pylori. Reports being pain free for last 2 years until December of this year when he again developed a gnawing epigastric pain that worsens after meals and is associated with early satiety and nausea. No NSAIDs use reported. Has cut down on smoking to 4cigs/day. No etOH use. Has been taking Omeprazole since then with little response. Labs reviewed, has mild worsening of chronic anemia - with wide MCV. EGD/colo 05/21/23: 1. Normal esophageal mucosa 2. Hiatal hernia 3. Schatzki's ring 4. Normal gastric mucosa 5. Duodenitis (biopsy) 6. Normal colon 7. Diverticulosis 8. Internal hemorrhoids Path Duodenum, biopsy:? Duodenal mucosa within normal limits; negative for celiac disease. 06/04/23: Reports resolution of abd pain. No nausea, vomiting, change in appetite or unintentional weight loss. Continues on Omeprazole 20mg. Has cut down on smoking. Smokes one cigarette every 2-3 days. [facility] Medical History Abnormal biopsy of kidney Anemia Anxiety Asthma CHF (congestive heart failure) CHF exacerbation Chronic kidney disease, stage 4 (severe) CKD (chronic kidney disease) stage 4, GFR 15-29 ml/min Congestive heart failure COPD (chronic obstructive pulmonary disease) Depression Depression with anxiety Diabetes mellitus with hyperglycemia, with long-term current use of insulin Diabetes type 2, uncontrolled Diastolic dysfunction Diverticulitis Elevated cholesterol Erectile dysfunction ESRD (end stage renal disease) on dialysis Essential hypertension Heart failure with preserved ejection fraction History of alcohol abuse History of headache HTN (hypertension) HTN (hypertension) Hx of pancreatitis Hyperglycemia Hypertension Hypertensive crisis Hypertriglyceridemia On beta doron at home Pancreatitis Peptic ulcer Proteinuria Sleep apnea Type 2 diabetes mellitus with chronic kidney disease Type 2 diabetes mellitus with hyperglycemia, with long-term current use of insulin Type 2 diabetes mellitus with polyneuropathy Type 2 diabetes mellitus with unspecified complications Surgical History History of esophagogastroduodenoscopy (EGD) History of surgery Hx of colonoscopy Hx of right inguinal hernia repair Family History Mother Diabetes Social History Household Members: None Housing: House Are you a primary doggy daycare activities director to a significant other at home: No Do you presently have visiting nurse or other home services: Yes ([employer]) Alcohol intake: never Patient Tobacco Use Status: Current everyday Tobacco user Tobacco use type: Cigarette Years Smoked: 30 Second Hand Smoke Exposure: Yes service: No Current occupational status: retired Review of Systems Const All systems reviewed & are unremarkable except as noted in HPI and below Physical Exam Vital Signs: Last Vital Signs Pulse 71 06/04/23 09:01 BP 139/63 06/04/23 09:01 BMI result Body Mass Index 29.7 Gen appear: NAD HEENT: nonicteric, no cervical lymphadenopathy Chest: CTA CVS: Regular S1/S2 Abd: soft, nontender, nondistended, bowel sounds + Ext: no peripheral edema Neuro: A/Ox3, noted to move all extremities spontaneously Psych: interacting appropriately Assessment & Plan Assessment & Plan (1) Anemia: Code(s): D64.9 - Anemia, unspecified (2) Duodenal ulcer disease: Code(s): K26.9 - Duodenal ulcer, unspecified as acute or chronic, without hemorrhage or perforation (3) Abdominal pain: Code(s): R10.9 - Unspecified abdominal pain Plan Abd pain from duodenitis vs previous ulcer that had healed up by the time of luminal evaluation. This has now resolved. No H pylori on 2020 biopsies. Anemia likely from CKD based on high ferritin - next colo in 10 years if pt still in good health. Plan: - Decrease Omeprazole to 10mg in 2 weeks (i.e 4 weeks from EGD) and then cont indefinitely - Congratulated on cutting down smoking, and encouraged to abstain completely - Avoid NSAIDs - Follow up PRN Coding Level of Care Code Est Pt Level 4 (79754) Diagnoses Anemia D64.9 Duodenal ulcer disease K26.9 Abdominal pain R10.9
== END 2023-06-04 09:35 | disposition home or self-care (01) ==
LOC: HO.HGI 08:49
PROVIDERS: PCP Nurse Practitioner Primary Care; Visit Provider Internal Medicine
DX: D64.9 Anemia, unspecified (principal); K26.9 Duodenal ulcer, unspecified as acute or chronic, without hemorrhage or perforation; R10.9 Unspecified abdominal pain
CPT/HCPCS: 99214

== ENCOUNTER 2023-06-26 09:56 | Emergency (ER) | payer OTHER, SELFPAY ==
--- NOTE | 2023-06-26 | ECG_ITS ---
Test Reason : CHEST PAIN Blood Pressure : / mmHG Vent. Rate : 069 BPM Atrial Rate : 069 BPM P-R Int : 206 ms QRS Dur : 168 ms QT Int : 454 ms P-R-T Axes : 053 -72 031 degrees QTc Int : 486 ms Normal sinus rhythm Right bundle branch block Left anterior fascicular block Bifascicular block Minimal voltage criteria for LVH, may be normal variant ( R in aVL ) Lateral infarct , age undetermined Abnormal ECG When compared with ECG of 17-AUG-2022 08:13, No significant change was found Referred By: Generic ED Physician Electronically Signed By:NAVI POST
--- NOTE | ~2023-06-26 | XR_ITS ---
EXAMINATION: XR CHEST CLINICAL INFORMATION: Chest pain. COMPARISON: Chest radiographs dated 08/17/2022. TECHNIQUE: 2 views of the chest were obtained. FINDINGS: No significant abnormality is noted involving the heart, lungs, mediastinum, bony thorax or soft tissues. XR/XR chest 2V IMPRESSION: No acute cardiopulmonary process.
[2023-06-26 10:07] VITALS: BP 118/53; BP 96/50; PULSE 68; RESP 18; TEMP 36.7; O2SAT 100; O2SAT 98; BMI 31.6
--- NOTE | 2023-06-26 10:07 | PC.NURSE ---
pt a&ox3. respirations even and unlabored. lung sounds clear bilaterally. pt coming from dialysis by EMS reporting chest pain towards the end of his dialysis appointment. pt reports the pain was pressure on the left side of his chest with radiation to the face. the dialysis staff gave pt one tab of nitroglcerin. ems gave pt 324mg of aspirin. pt currently denies chest pain at this time. pt reports having diarrhea for 3 days that has not subsided. bowel sounds active in all 4 quadrants and abdomen is soft non tender to touch. pt normal sinus on tele.
[2023-06-26 10:31] VITALS: PULSE 67
--- NOTE | 2023-06-26 10:36 | ED_ITS ---
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 He did receive aspirin by EMS but at this time denies any shortness of breath or chest pain. He states that he went to his dialysis on Saturday and has never experiences chest pain previously. He does report he has had several days 3-4 episodes of diarrhea. S otherwise, patient denies any fever, chills, nausea, vomiting, abdominal discomfort. Related Data Home Medications Medication Instructions Recorded Confirmed albuterol sulfate 90 mcg/actuation 2 puff PO Q4H PRN Shortness Of 12/01/21 12/18/22 aerosol inhaler (Ventolin HFA) Breath aspirin 81 mg tablet,delayed 1 tab PO DAILY 12/01/21 12/18/22 release cholecalciferol (vitamin D3) 25 2 tab PO DAILY 12/01/21 12/18/22 mcg (1,000 unit) tablet gabapentin 600 mg tablet 600 mg PO BEDTIME 12/01/21 12/18/22 oxcarbazepine 300 mg tablet 1 tab PO BID 12/01/21 12/18/22 perphenazine 2 mg tablet 1 tab PO BID 12/01/21 12/18/22 sertraline 100 mg tablet 2 tab PO DAILY 12/01/21 12/18/22 tramadol 50 mg tablet 2 tab PO Q8H PRN Pain 12/01/21 12/18/22 zolpidem 10 mg tablet 1 tab PO BEDTIME PRN Insomnia 12/01/21 12/18/22 blood-glucose meter (FreeStyle 06/20/22 12/18/22 Lite Meter kit) lancets 33 gauge (TRUEplus Lancets) #100 ea 12/18/22 12/18/22 fluticasone propionate 220 2 puff inhalation BID 04/16/23 mcg/actuation HFA aerosol inhaler (Flovent HFA) isosorbide mononitrate 60 mg 120 mg PO QAM 04/16/23 tablet,extended release 24 hr ergocalciferol (vitamin D2) 1,250 0 mcg PO 08/08/23 mcg (50,000 unit) capsule Previous Rx's Medication Instructions Recorded pen needle, diabetic 32 gauge x #150 ea 12/21/21 (BD Ultra-Fine Silvia Pen Needle) doxazosin 2 mg tablet 2 mg PO DAILY #90 tabs 04/06/22 blood sugar diagnostic (FreeStyle #150 ea 08/17/22 Lite Strips) torsemide 20 mg tablet 80 mg PO BID #720 tabs 10/05/22 carvedilol 25 mg tablet 25 mg PO BID 90 days #180 tabs 10/31/22 lancets 28 gauge (FreeStyle #100 ea 10/31/22 Lancets) icosapent ethyl 1 gram capsule 2 g PO BID #120 caps 12/31/22 (Vascepa) losartan 50 mg tablet 50 mg PO DAILY #30 tabs 12/31/22 nifedipine 30 mg tablet,extended 120 mg PO BEDTIME 90 days #360 tabs 12/31/22 release metoclopramide HCl 10 mg tablet 10 mg PO Q6H PRN nausea and 02/13/23 (Reglan) vomiting #14 tabs omeprazole 20 mg capsule,delayed 20 mg PO BID 30 days #60 caps 04/16/23 release sucralfate 100 mg/mL oral 10 ml PO QIDACHS 2 weeks #1,000 mL 04/16/23 suspension insulin glargine U-300 conc 300 50 unit (0.1667 mL) subcut DAILY 04/25/23 unit/mL (3 mL) subcutaneous pen #6 mL (Toujeo Max U-300 SoloStar) atorvastatin 80 mg tablet 80 mg PO BEDTIME #30 tabs 06/06/23 insulin aspart U-100 100 unit/mL See Rx Instructions subcut 06/18/23 (3 mL) subcutaneous pen (Novolog .COMPLEX #15 mL FlexPen U-100 Insulin aspart) azithromycin 500 mg tablet 500 mg PO DAILY 10 days #10 tabs 06/26/23 Allergies Allergy/AdvReac Type Severity Reaction Status Date / Time No Known Allergies Allergy Verified 06/26/23 10:16 Review of Systems Review of Systems: Pertinent positives and negatives as stated in [facility] Past Medical History Source: nursing notes reviewed Medical History Abnormal biopsy of kidney Anemia Anxiety Asthma CHF (congestive heart failure) CHF exacerbation Chronic kidney disease, stage 4 (severe) CKD (chronic kidney disease) stage 4, GFR 15-29 ml/min Congestive heart failure COPD (chronic obstructive pulmonary disease) Depression Depression with anxiety Diabetes mellitus with hyperglycemia, with long-term current use of insulin Diabetes type 2, uncontrolled Diastolic dysfunction Diverticulitis Elevated cholesterol Erectile dysfunction ESRD (end stage renal disease) on dialysis Essential hypertension Heart failure with preserved ejection fraction History of alcohol abuse History of headache HTN (hypertension) HTN (hypertension) Hx of pancreatitis Hyperglycemia Hypertension Hypertensive crisis Hypertriglyceridemia On beta doron at home Pancreatitis Peptic ulcer Proteinuria Sleep apnea Type 2 diabetes mellitus with chronic kidney disease Type 2 diabetes mellitus with hyperglycemia, with long-term current use of insulin Type 2 diabetes mellitus with polyneuropathy Type 2 diabetes mellitus with unspecified complications Surgical History History of esophagogastroduodenoscopy (EGD) History of surgery Hx of colonoscopy Hx of right inguinal hernia repair Family History Family History Mother Diabetes Social History Social History Household Members: None Housing: House Are you a primary out of school hours care worker to a significant other at home: No Do you presently have visiting nurse or other home services: Yes ([employer]) Alcohol intake: never Patient Tobacco Use Status: Current everyday Tobacco user Tobacco use type: Cigarette Years Smoked: 30 Smoked in Last 30 Days: No Second Hand Smoke Exposure: Yes Use of substances other than those prescribed or required for medical reasons: No Advance Directives: No Advance Directives Information Provided: Yes service: No Current occupational status: retired Physical Exam Vital Signs: Vital Signs: Last Vital Signs Temp 98.1 F 06/26/23 13:12 Pulse 70 06/26/23 15:00 Resp 16 06/26/23 15:00 BP 127/58 L 06/26/23 15:00 Pulse Ox 99 06/26/23 15:00 O2 Del Method Room Air 06/26/23 15:00 BMI result Body Mass Index 31.6 VITAL SIGNS: Reviewed. GENERAL: Well developed, well nourished, in no acute distress. HEAD: Normocephalic/atraumatic EYES: PERRLA, EOMI EARS: Ext canals without abnormality NOSE: Nares patent bilateral OROPHARYNX: no oral lesions noted, posterior pharynx clear NECK: Supple, no adenopathy LUNGS: Normal breath sounds. No adventitious sounds or accessory muscle use. SpO2<98> CARDIOVASCULAR: Regular rate and rhythm without noted murmurs ABDOMEN: Soft, non-tender, non-distended with bowel sounds. MUSCULOSKELETAL: No tenderness, deformities, or effusions noted on gross in spection. EXTREMITIES: No cyanosis, clubbing or edema. SKIN: Inspection of the skin reveals no rashes NEUROLOGIC: Alert and oriented x 4. Strength and sensation to light touch were grossly intact x 4. Medications Administered Discontinued Medications Generic Name Dose Route Start Last Admin Trade Name Freq PRN Reason Stop Dose Admin Azithromycin 500 mg 06/26/23 14:50 06/26/23 14:59 Azithromycin 500 Mg Tablet PO 06/26/23 14:51 500 mg ONCE ONE Administration Medical Decision Making Medical Decision Making [facility] Narrative: 62-year-old male with history and clinical presentation, DDX: Demand ischemia, dehydration, gastroenteritis. I reviewed all investigations and hematologic indices are demonstrating a very mild bump in limb leukocytes-10.9, patient is afebrile but does report diarrhea, otherwise patient has chronically stable normocytic anemia likely of chronic disease, chronically stable thrombocytopenia, there is a mild left shift which is new. Chemistry indices are chronically stable ESRD and patient has just completed his dialysis session today, there is no evidence of potassium derangement, there is only a mild hyperglycemia, troponin is detectable but not significantly elevated will proceed with 2nd troponin. Chest x-ray without infiltrate and otherwise my interpretation is in agreement with radiology's impression. Cdiff is negative but GI panel is positive for EPEC. 1443: I discussed the case with infectious disease specialist, Dr. Rivero, who recommends Zithromax, 500 mg, daily, for 10 days. 1511: Reviewed 2nd troponin which is flat, patient is otherwise discharged home in stable condition. Differential Diagnosis Differential Diagnoses: The differential diagnosis associated with the presentation includes Please see the discussion above Admission/Observation Consideration of admission/observation: Escalation of care including admissi on/observation considered Please see the discussion above Consult Healthcare Provider Management of the patient was discussed with: Shackler Please see the discussion above Lab Data [facility] Lab Attestation statement: I reviewed the patient's lab results. Please see the discussion above 06/26/23 10:32 06/26/23 10:32 Labs: Lab Results 06/26/23 06/26/23 06/26/23 Range/Units 10:32 10:32 10:32 WBC 10.9 H (4.8-10.8) X10*3/uL RBC 3.09 L (4.60-5.80) X10*6/uL Hgb 10.7 L (14.0-18.0) g/dl Hct 30.2 L (42.0-52.0) % MCV 97.7 (80.0-98.0) fL MCH 34.6 H (27.0-33.0) pg MCHC 35.4 (31.0-36.0) g/dl RDW 14.6 (11.0-16.0) % Plt Count 158 L (160-400) X10*3/uL MPV 11.4 (9.4-12.4) fL Immature Gran % (Auto) 0.5 H (0.0-0.4) % Neut % (Auto) 77.1 H (45-73) % Lymph % (Auto) 12.9 L (20-40) % Upton % (Auto) 4.8 (2-11) % Eos % (Auto) 4.2 H (0-4) % Baso % (Auto) 0.5 (0-2) % Lymph # (Auto) 1.4 (1.2-4.9) X10*3/uL Upton # (Auto) 0.5 (0.1-1.2) X10*3/uL Eos # (Auto) 0.5 H (0.0-0.4) X10*3/uL Baso # (Auto) 0.1 (0.0-0.2) X10*3/uL Abs Immat Gran (auto) 0.06 H (0.00-0.03) X10*3/uL Absolute Neuts (auto) 8.4 H (2.0-8.3) x10*3/uL Absolute Nucleated RBC 0.000 (0.0-0.012) X10*3/uL Nucleated RBC % (auto) 0.0 (0.0-0.2) /100WBC Sodium 136 (135-145) mmol/L Potassium 3.9 (3.3-5.1) mmol/L Chloride 93 L (96-108) mmol/L Carbon Dioxide 27 (22-29) mmol/L Anion Gap 20 (12-20) BUN 22 H (9-16) mg/dL Creatinine 6.49 H* (0.5-1.4) mg/dL Estim Creat Clear Calc 14.3 Estimated GFR 9 Random Glucose 155 H (60-115) mg/dL Calcium 9.8 D (8.4-10.2) mg/dL Troponin I High Sens 12.5 (<3.5-35.0) ng/L Stl C. cayetanensis PCR (Not Detect.) Stool Rotavirus A PCR (Not Detect.) Stl Adenov F 40/41 PCR (Not Detect.) Stool Astrovirus (PCR) (Not Detect.) Stool Campylobacter PCR (Not Detect.) Stool Cryptosporidium PCR (Not Detect.) Stl Sh Tox Pr E STEC PCR (Not Detect.) Stool E coli O157 PCR (Not Detect.) Stl Enterotoxigenic E PCR (Not Detect.) Stool EPEC (PCR) (Not Detect.) Stool EAEC (PCR) (Not Detect.) Stl E. histolytica PCR (Not Detect.) Stool Giardia Lamblia PCR (Not Detect.) Stl P. shigelloides PCR (Not Detect.) Stool Salmonella PCR (Not Detect.) Stool Sapovirus (PCR) (Not Detect.) Stl Shigella/EIEC PCR (Not Detect.) St Y.enterocolitica PCR (Not Detect.) Stool Vibrio (PCR) (Not Detect.) Stl Vibrio cholerae PCR (Not Detect.) Stl Norovirus GI/GII PCR (Not Detect.) C. difficile Tox B Gene (Negative) 06/26/23 06/26/23 06/26/23 Range/Units 11:35 11:35 14:32 WBC (4.8-10.8) X10*3/uL RBC (4.60-5.80) X10*6/uL Hgb (14.0-18.0) g/dl Hct (42.0-52.0) % MCV (80.0-98.0) fL MCH (27.0-33.0) pg MCHC (31.0-36.0) g/dl RDW (11.0-16.0) % Plt Count (160-400) X10*3/uL MPV (9.4-12.4) fL Immature Gran % (Auto) (0.0-0.4) % Neut % (Auto) (45-73) % Lymph % (Auto) (20-40) % Upton % (Auto) (2-11) % Eos % (Auto) (0-4) % Baso % (Auto) (0-2) % Lymph # (Auto) (1.2-4.9) X10*3/uL Upton # (Auto) (0.1-1.2) X10*3/uL Eos # (Auto) (0.0-0.4) X10*3/uL Baso # (Auto) (0.0-0.2) X10*3/uL Abs Immat Gran (auto) (0.00-0.03) X10*3/uL Absolute Neuts (auto) (2.0-8.3) x10*3/uL Absolute Nucleated RBC (0.0-0.012) X10*3/uL Nucleated RBC % (auto) (0.0-0.2) /100WBC Sodium (135-145) mmol/L Potassium (3.3-5.1) mmol/L Chloride (96-108) mmol/L Carbon Dioxide (22-29) mmol/L Anion Gap (12-20) BUN (9-16) mg/dL Creatinine (0.5-1.4) mg/dL Estim Creat Clear Calc Estimated GFR Random Glucose (60-115) mg/dL Calcium (8.4-10.2) mg/dL Troponin I High Sens 10.5 (<3.5-35.0) ng/L Stl C. cayetanensis PCR Not Detected (Not Detect.) Stool Rotavirus A PCR Not Detected (Not Detect.) Stl Adenov F 40/41 PCR Not Detected (Not Detect.) Stool Astrovirus (PCR) Not Detected (Not Detect.) Stool Campylobacter PCR Not Detected (Not Detect.) Stool Cryptosporidium PCR Not Detected (Not Detect.) Stl Sh Tox Pr E STEC PCR Not Detected (Not Detect.) Stool E coli O157 PCR Not applicable (Not Detect.) Stl Enterotoxigenic E PCR Not Detected (Not Detect.) Stool EPEC (PCR) Detected A (Not Detect.) Stool EAEC (PCR) Not Detected (Not Detect.) Stl E. histolytica PCR Not Detected (Not Detect.) Stool Giardia Lamblia PCR Not Detected (Not Detect.) Stl P. shigelloides PCR Not Detected (Not Detect.) Stool Salmonella PCR Not Detected (Not Detect.) Stool Sapovirus (PCR) Not Detected (Not Detect.) Stl Shigella/EIEC PCR Not Detected (Not Detect.) St Y.enterocolitica PCR Not Detected (Not Detect.) Stool Vibrio (PCR) Not Detected (Not Detect.) Stl Vibrio cholerae PCR Not Detected (Not Detect.) Stl Norovirus GI/GII PCR Not Detected (Not Detect.) C. difficile Tox B Gene NEGATIVE (Negative) Independent Interpretation I performed an independent interpretation of an: EKG Interpretation: Normal sinus rhythm, HR-69, RBBB, no STEMI, CT-206, QRS-168, QTC -486, no acute changes when compared to prior EKG. Radiology Impression Radiologist Impression: Please see the discussion above External Record Review External record reviewed: Outpatient record, Prior outpatient labs and Prior outpatient radiology Chronic Conditions Patient?s care impacted by: Diabetes and Hypertension Critical Care Time Critical Care Time Critical Care Time: Yes Total Critical Care Time: 30 Attestation: I personally attest to this time spent taking care of the patient. Discharge Plan Discharge Clinical Impression: Bacterial infection of gastrointestinal tract, Atypical chest pain, Enteritis, enteropathogenic E. coli Patient Disposition: Home, Self-Care Instructions: Gastroenteritis (ED) Additional Instructions: 1. Reanudar todos los medicamentos caseros seg?n lo recetado. 2. Deber? completar todo el tratamiento con antibi?ticos recetados para la infecci?n de rich intestinos. 3. Itz un seguimiento con carter m?dico de atenci?n primaria en los pr?ximos 1 o 2 d?as. Regrese a la amarilys de emergencias si los s?ntomas empeoran. 1. Resume all home medications as prescribed. 2. You will need to complete the entire course of antibiotics as prescribed for the infection of your intestines 3. Please follow-up with your primary care doctor in the next 1-2 days. Return to the ER for any worsening symptoms. Prescriptions: New azithromycin 500 mg tablet 500 mg PO DAILY 10 Days Qty: 10 0RF No Action (DME) pen needle, diabetic [BD Ultra-Fine Silvia Pen Needle] 32 gauge x 5/32 needle See Rx Instructions .ROUTE .MEDSUPPLY Qty: 150 11RF Rx Instructions: As directed five times a day doxazosin 2 mg tablet 2 mg PO DAILY Qty: 90 1RF (DME) FreeStyle Lite Strips Strip See Rx Instructions .Route Qty: 150 11RF Rx Instructions: As directed 4x DAILY torsemide 20 mg tablet 80 mg PO BID Qty: 720 1RF Rx Instructions: OVERDUE FOR FOLLOW UP APPT. PLEASE CALL TO SCHEDULE APPT FOR 2022 @ [phone] TO CONTINUE RECVING REFILLS. carvedilol 25 mg tablet 25 mg PO BID 90 Days Qty: 180 2RF Rx Instructions: OVERDUE FOR APPT. PLEASE CALL [phone] TO SCHEDULE FOLLOW UP SO WE CAN CONTINUE REFILLING THIS PRESCRIPTION. (DME) lancets [FreeStyle Lancets] 28 gauge misc See Rx Instructions .Route Qty: 100 6RF Rx Instructions: As directed nifedipine 30 mg tablet extended release 120 mg PO BEDTIME 90 Days Qty: 360 0RF Rx Instructions: Must make cardiology appt for refills losartan 50 mg tablet 50 mg PO DAILY Qty: 30 0RF Rx Instructions: Must make cardiology appt for refills icosapent ethyl [Vascepa] 1 gram capsule 2 g PO BID Qty: 120 6RF Toujeo Max U-300 SoloStar 300 unit/mL (3 mL) insulin pen 50 unit subcut DAILY Qty: 6 6RF atorvastatin 80 mg tablet 80 mg PO BEDTIME Qty: 30 5RF insulin aspart U-100 [Novolog FlexPen U-100 Insulin] 100 unit/mL (3 mL) insulin pen See Rx Instructions subcut .COMPLEX Qty: 15 4RF Rx Instructions: Inject 10 units with breakfast, 24 units with lunch and 16 units with subcutaneously; gabapentin 600 mg tablet 600 mg PO BEDTIME perphenazine 2 mg tablet 1 tab PO BID sertraline 100 mg tablet 2 tab PO DAILY oxcarbazepine 300 mg tablet 1 tab PO BID aspirin 81 mg tablet,delayed release (DR/EC) 1 tab PO DAILY tramadol 50 mg tablet 2 tab PO Q8H PRN (Reason: Pain) zolpidem 10 mg tablet 1 tab PO BEDTIME PRN (Reason: Insomnia) cholecalciferol (vitamin D3) 25 mcg (1,000 unit) tablet 2 tab PO DAILY albuterol sulfate [Ventolin HFA] 90 mcg/actuation HFA aerosol inhaler 2 puff PO Q4H PRN (Reason: Shortness Of Breath) metoclopramide HCl [Reglan] 10 mg tablet 10 mg PO Q6H PRN (Reason: nausea and vomiting) Qty: 14 0RF (DME) blood-glucose meter [FreeStyle Lite Meter] Kit See Rx Instructions .Route Rx Instructions: As directed (DME) lancets [TRUEplus Lancets] 33 gauge misc See Rx Instructions .ROUTE QID Qty: 100 Rx Instructions: As directed ergocalciferol (vitamin D2) 1,250 mcg (50,000 unit) capsule 0 mcg PO isosorbide mononitrate 60 mg tablet extended release 24 hr 120 mg PO QAM Rx Instructions: Current regimen fluticasone propionate [Flovent HFA] 220 mcg/actuation HFA aerosol inhaler 2 puff inhalation BID omeprazole 20 mg capsule,delayed release(DR/EC) 20 mg PO BID 30 Days Qty: 60 0RF sucralfate 100 mg/mL suspension 10 ml PO QIDACHS 14 Days Qty: 1000 0RF Referrals: Nuvia Crook, PLASTICS SPREADING MACHINE OPERATOR [Primary Care Provider] - Print Language: Ugandan
[2023-06-26 10:38] LABS: MANUAL DIFF FLAG NO
[2023-06-26 10:40] LABS: Basophils Absolute Auto 0.1 X10*3/uL (0.0-0.2); Basophils Percent Auto 0.5 % (0-2); Eosinophils Absolute Auto 0.5 X10*3/uL (0.0-0.4); Eosinophils Percent Auto 4.2 % (0-4); Hematocrit 30.2 % (42.0-52.0); Hemoglobin 10.7 g/dl (14.0-18.0); Imm Gran Abs Auto 0.06 X10*3/uL (0.00-0.03); Imm Gran Pct Auto 0.5 % (0.0-0.4); Lymphocytes Absolute Auto 1.4 X10*3/uL (1.2-4.9); Lymphocytes Percent Auto 12.9 % (20-40); Mean Corpuscular HGB Conc 35.4 g/dl (31.0-36.0); Mean Corpuscular Hemoglobin 34.6 pg (27.0-33.0); Mean Corpuscular Volume 97.7 fL (80.0-98.0); Mean Platelet Volume 11.4 fL (9.4-12.4); Monocytes Absolute Auto 0.5 X10*3/uL (0.1-1.2); Monocytes Percent Auto 4.8 % (2-11); Neutrophils Absolute Auto 8.4 x10*3/uL (2.0-8.3); Neutrophils Percent Auto 77.1 % (45-73); Platelet Count 158 X10*3/uL (160-400); Red Blood Count 3.09 X10*6/uL (4.60-5.80); Red Cell Distribution Width 14.6 % (11.0-16.0); White Blood Count 10.9 X10*3/uL (4.8-10.8)
[2023-06-26 11:00] LABS: Anion Gap 20 (12-20); Blood Urea Nitrogen 22 mg/dL (9-16); Calcium 9.8 mg/dL (8.4-10.2); Carbon Dioxide 27 mmol/L (22-29); Chloride 93 mmol/L (96-108); Creatinine Clr Calc Pharmacy 14.3; Estimated Glomerular Filt Rate 9; Glucose Random 155 mg/dL (60-115); Potassium 3.9 mmol/L (3.3-5.1); Sodium 136 mmol/L (135-145)
[2023-06-26 11:02] LABS: Troponin-I High Sensitivity 12.5 ng/L (<3.5-35.0)
[2023-06-26 12:57] LABS: CDiff Gene PCR NEGATIVE (Negative)
[2023-06-26 13:12] VITALS: BP 130/56; PULSE 65; RESP 16; TEMP 36.7; O2SAT 100
--- NOTE | 2023-06-26 13:13 | PC.NURSE ---
pt a&ox3. respirations even and unlabored. pt denies chest pain at this time. normal sinus on tele. vss.
[2023-06-26 13:14] LABS: Adenovirus F 40/41 Not Detected (Not Detect.); Astrovirus Not Detected (Not Detect.); Campylobacter Not Detected (Not Detect.); Cryptosporidium Not Detected (Not Detect.); Cyclospora cayetanensis Not Detected (Not Detect.); E. coli EAEC Not Detected (Not Detect.); E. coli EPEC Detected (Not Detect.); E. coli ETEC Not Detected (Not Detect.); E. coli STEC Not Detected (Not Detect.); Entamoeba histolytica Not Detected (Not Detect.); Giardia lamblia Not Detected (Not Detect.); Norovirus GI/GII Not Detected (Not Detect.); Plesiomonas shigelloides Not Detected (Not Detect.); Rotavirus A Not Detected (Not Detect.); Salmonella Not Detected (Not Detect.); Sapovirus Not Detected (Not Detect.); Shigella sp./EIEC Not Detected (Not Detect.); Vibrio Not Detected (Not Detect.); Vibrio Cholerae Not Detected (Not Detect.); Yersinia enterocolitica Not Detected (Not Detect.)
[2023-06-26] MEDS: Azithromycin 500 MG TABLET PO (14:59)
[2023-06-26 15:00] VITALS: BP 127/58; PULSE 70; RESP 16; O2SAT 99
[2023-06-26 15:04] LABS: Troponin-I High Sensitivity 10.5 ng/L (<3.5-35.0)
== END 2023-06-26 16:16 | disposition home or self-care (01) ==
PROVIDERS: Emergency Provider Student in an Organized Health Care Education/Training Program; PCP Nurse Practitioner Primary Care
DX: A04.0 Enteropathogenic Escherichia coli infection (principal); R07.89 Other chest pain; R19.7 Diarrhea, unspecified; R06.02 Shortness of breath; D64.9 Anemia, unspecified; D75.838 Other thrombocytosis; E11.22 Type 2 diabetes mellitus with diabetic chronic kidney disease; I13.2 Hypertensive heart and chronic kidney disease with heart failure and with stage 5 chronic kidney disease, or end stage renal disease; I50.30 Unspecified diastolic (congestive) heart failure; N18.6 End stage renal disease; Z99.2 Dependence on renal dialysis; F17.210 Nicotine dependence, cigarettes, uncomplicated; E78.5 Hyperlipidemia, unspecified; Z79.4 Long term (current) use of insulin; Z79.899 Other long term (current) drug therapy; Z79.82 Long term (current) use of aspirin
CPT/HCPCS: 36415; 71046; 80048; 84484; 85025; 87493; 87507; 93005; 99284; 99285

== ENCOUNTER 2023-10-15 09:24 | Outpatient (AMB) | payer OTHER, SELFPAY ==
--- NOTE | 2023-10-15 09:57 | MHC.OFFVIS ---
Intake Intake Visit Reasons: Vasculogenic ED Intake Note: New Patient presents for initial visit for Vasculogenic ED Urology Medications: none Blood Thinner: aspirin Bioinformatician Required: No Accompanied by: Self / Same As Patient Allergies No Known Allergies Allergy (Verified 10/15/23 11:34) Medication List - Last Reconciled 10/15/23 by SAIMA Asencio albuterol sulfate 90 mcg/actuation (Ventolin HFA) 2 puffs PO Q4H PRN aspirin 1 tab PO DAILY atorvastatin 80 mg PO BEDTIME blood sugar diagnostic (FreeStyle Lite Strips) As directed 4x DAILY blood-glucose meter (FreeStyle Lite Meter kit) As directed carvedilol 25 mg PO BID 90 days cholecalciferol (vitamin D3) 2 tabs PO DAILY doxazosin 2 mg PO DAILY ergocalciferol (vitamin D2) 0 mcg PO fluticasone propionate 220 mcg/actuation (Flovent HFA) 2 puffs inhalation BID gabapentin 600 mg PO BEDTIME icosapent ethyl (Vascepa) 2 grams (2 x 1 gram) PO BID insulin aspart U-100 (Novolog FlexPen U-100 Insulin aspart) Inject 10 units with breakfast, 24 units with lunch and 16 units with subcutaneously; insulin glargine U-300 conc (Toujeo Max U-300 SoloStar) 50 units (0.1667 mL) subcut DAILY isosorbide mononitrate ER 120 mg PO QAM lancets (FreeStyle Lancets) As directed lancets (TRUEplus Lancets) TEST BLOOD SUGAR FOUR TIMES DAILY DIRECTED losartan 50 mg PO DAILY metoclopramide HCl (Reglan) 10 mg PO Q6H PRN nifedipine ER 120 mg (4 x 30 mg) PO BEDTIME 90 days omeprazole 20 mg PO BID 30 days oxcarbazepine 1 tab PO BID pen needle, diabetic (BD Ultra-Fine Silvia Pen Needle) As directed five times a day perphenazine 1 tab PO BID sertraline 2 tabs PO DAILY sucralfate 10 mL PO QIDACHS 2 weeks tadalafil (Cialis) 5 mg PO DAILY 90 days torsemide 80 mg (4 x 20 mg) PO BID tramadol 2 tabs PO Q8H PRN zolpidem 1 tab PO BEDTIME PRN HPI HPI Comments History of Present Illness Details At 1 is a very pleasant 63-year-old male patient of Dr. Crook. He has a past medical history of end-stage renal disease,CHF, type 2 diabetes, anemia, hypertension, pancreatitis, erectile dysfunction, depression, anxiety, peptic ulcer, asthma, sleep apnea, migraines, COPD, and hypercholesteremia. He presents to the office today as a new patient for erectile dysfunction. In discussion with the patient today reports noting symptoms to have been present for many years. He does report sexual desire however is unable to obtain and or maintain erections. He does report nocturnal erections at times. He otherwise denies any bothersome urinary issues or concerns. He does still make small amounts of urine although he is on dialysis every Saturday and Saturday. Discussed at length importance of compliance with sleep apnea machine as well as diabetic control for improvement in erectile dysfunction as well as overall health and well being. Discussed at length potential causes of erectile dysfunction as well as lifestyle modifications to assist with erectile dysfunction. Discuss treatment options for erectile dysfunction including medications, injectable therapy, and or penile prosthesis. These options were discussed at length. Discussed cardiovascular risk factors with oral medications for erectile dysfunction. Discussed risks and benefits of oral medications for treatment of erectile dysfunction. Unable to obtain urine for urinalysis today. He otherwise offers no issues or concerns at this time. [facility] Medical History ESRD (end stage renal disease) on dialysis CHF exacerbation Diabetes type 2, uncontrolled Anemia HTN (hypertension) Heart failure with preserved ejection fraction CKD (chronic kidney disease) stage 4, GFR 15-29 ml/min Congestive heart failure Type 2 diabetes mellitus with unspecified complications Diastolic dysfunction Essential hypertension Hyperglycemia Hypertensive crisis Pancreatitis Chronic kidney disease, stage 4 (severe) Erectile dysfunction Depression with anxiety Proteinuria Diverticulitis Type 2 diabetes mellitus with hyperglycemia, with long-term current use of insulin Type 2 diabetes mellitus with polyneuropathy Type 2 diabetes mellitus with chronic kidney disease Hypertension Hypertriglyceridemia Diabetes mellitus with hyperglycemia, with long-term current use of insulin History of alcohol abuse Abnormal biopsy of kidney Peptic ulcer Hx of pancreatitis Anxiety Depression COPD (chronic obstructive pulmonary disease) History of headache Sleep apnea Asthma On beta doron at home Elevated cholesterol CHF (congestive heart failure) HTN (hypertension) Surgical History History of esophagogastroduodenoscopy (EGD) History of surgery Hx of right inguinal hernia repair Hx of colonoscopy Family History Mother Diabetes Social History Household Members: None Housing: House Are you a primary district manager primary care sales to a significant other at home: No Do you presently have visiting nurse or other home services: Yes (OPERATIONAL REVIEW [employer]GE[employer]) Alcohol intake: never Comment: pt sleeping Patient Tobacco Use Status: Current everyday Tobacco user Tobacco use type: Cigarette Years Smoked: 30 Second Hand Smoke Exposure: Yes service: No Current occupational status: retired Review of Systems Const Reports as per HPI Eyes Reports no additional complaints ENT Reports no additional complaints Card Reports as per [facility] Resp Reports as per HPI GI Reports as per HPI Reports as per [facility] Musc Reports as per [facility] Neuro Reports as per [facility] Psych Reports as per [facility] Endo Reports as per HPI Ronan/Lymph Reports no additional complaints Aller/Immun Reports no additional complaints Physical Exam Const General: cooperative, healthy appearing, comfortable, no acute distress, well developed, alert and awake Orientation/consciousness: patient oriented x3 Limitations: no limitations HEENT Head: Yes normal to inspection, Yes normocephalic and Yes atraumatic Ears: hearing grossly normal bilaterally Eyes General: appearance normal, both eyes and all related structures Neck Neck: Yes normal visual inspection and Yes trachea midline Chest Chest palpation & inspection: normal inspection of the chest Resp Effort & Inspection: normal respiratory effort and able to speak in complete sentences Cardio Rate: regular rate GI Inspection: Yes normal to inspection General: Yes no CVA tenderness Back/Spine/Pelvis Back: no CVA tenderness Skin General skin exam: no rashes or lesions noted Neuro General: patient oriented x3 Extrem General: Yes normal to inspection Psych Appearance: grossly normal and well kempt Mental Status: mental status grossly normal Speech and movement: Normal speech and movement present and Clear speech present Affect: normal affect Attitude: cooperative Thought process: Normal thought process present Thought content: Normal thought content present Insight: Fair insight present (Psych) Judgement: Fair judgement present (Psych) Assessment & Plan Assessment & Plan (1) Erectile dysfunction associated with type 2 diabetes mellitus: Code(s): E11.69 - Type 2 diabetes mellitus with other specified complication; N52.1 - Erectile dysfunction due to diseases classified elsewhere Plan Unable to obtain urine for urinalysis today. Discussed at length potential causes for erectile dysfunction Discussed lifestyle modifications to assist with ED Discussed sleep apnea and uncontrolled diabetes in correlation with erectile dysfunction at length. Start 5 mg of Cialis daily. Discussed at length lifestyle modifications to assist with erectile dysfunction. Patient denies any bothersome urinary issues or concerns at this time. Will obtain PSA and testosterone for further assessment evaluation. Follow-up in 3 months with labs to be completed prior; or sooner with any issues, concerns, and or questions. Orders: Orders Prostate Specific Antigen Today E11.69 - Type 2 diabetes mellitus with other specified complication, N52.1 - Erectile dysfunction due to diseases classified elsewhere Testosterone, Free/Total Today E11.69 - Type 2 diabetes mellitus with other specified complication, N52.1 - Erectile dysfunction due to diseases classified elsewhere Medications: New tadalafil (Cialis) [id number] [facility] [id number] Member [id number] 5 mg PO DAILY 90 days 90 tabs 1RF Patient Instructions: The patient had an opportunity to ask questions regarding the treatment plan. All questions were answered. Physical exam, labs, and imaging were discussed and reviewed in detail. As well as risks, benefits, and discussion of treatment choices. No major barriers to understanding were identified. The patient expressed understanding and agreement with the above treatment plan. The patient was made aware they should contact our office by phone for worsening of their current condition, the appearance of new symptoms, or with any questions or concerns. Compliance is encouraged with any medications and follow up testing that is ordered. It is a privilege to be allowed the opportunity to participate in? your urological care.? Again, if you have any questions or concerns If you have any questions or concerns please do not hesitate to contact me. The office is [phone]. This note is constructed using voice recognition software. While every effort has been made to ensure accuracy coil winding supervisor errors may have been included. Yours sincerely, SAIMA Asencio Coding Level of Care Code New Pt Level 4 (16317) Diagnoses Erectile dysfunction associated with type 2 diabetes mellitus E11.69; N52.1
== END 2023-10-15 10:19 | disposition home or self-care (01) ==
PROVIDERS: PCP Nurse Practitioner Primary Care; Visit Provider Nurse Practitioner Family
DX: E11.69 Type 2 diabetes mellitus with other specified complication (principal); N52.1 Erectile dysfunction due to diseases classified elsewhere
CPT/HCPCS: 99204

== ENCOUNTER → 2023-10-15 09:24 | Outpatient (BNVA) | payer OTHER, SELFPAY | PROVIDERS: PCP Nurse Practitioner Primary Care; Visit Provider Nurse Practitioner Family | DX: E11.69 Type 2 diabetes mellitus with other specified complication (principal); N52.1 Erectile dysfunction due to diseases classified elsewhere | CPT/HCPCS: 99202 ==

== ENCOUNTER 2023-10-17 08:41 | Outpatient (REF) | payer OTHER, SELFPAY ==
[2023-10-17 10:03] LABS: Prostate Specific Antigen 0.79 ng/mL (<0.05-4.0)
[2023-10-25 09:48] LABS: Testosterone, Free 88.7 pg/mL (35.0-155.0); Testosterone, Total 325 ng/dL (250-1100)
== END 2023-10-17 08:42 | disposition home or self-care (01) ==
LOC: HO.LAB 08:41
PROVIDERS: PCP Nurse Practitioner Primary Care; Visit Provider Nurse Practitioner Family
DX: Z12.5 Encounter for screening for malignant neoplasm of prostate (principal); E11.69 Type 2 diabetes mellitus with other specified complication; N52.1 Erectile dysfunction due to diseases classified elsewhere
CPT/HCPCS: 36415; 84153; 84402; 84403

== ENCOUNTER 2023-10-28 20:24 | Emergency (ER) | payer OTHER, SELFPAY ==
--- NOTE | ~2023-10-28 | XR_ITS ---
EXAMINATION: CHEST 2 VIEWS CLINICAL INFORMATION: left sided chest pain/abdominal pain. COMPARISON: 06/26/2023. TECHNIQUE: PA and lateral views of the chest obtained. FINDINGS: The lungs are well expanded. No focal infiltrate, effusion, edema, or pneumothorax. Cardiac and mediastinal silhouettes are within normal limits for technique. No acute bony abnormality seen XR/XR chest 2V IMPRESSION: No evidence of acute disease
--- NOTE | ~2023-10-28 | CT_ITS ---
EXAMINATION: CT ABDOMEN AND PELVIS WITHOUT CONTRAST CLINICAL INFORMATION: Flank pain. COMPARISON: 01/01/2023. TECHNIQUE: Multidetector volumetric imaging was performed from the superior aspect of the liver through the pubic symphysis. Sagittal and coronal reformatted images were obtained on the technologist's workstation. This CT examination was performed using dose optimization techniques as appropriate, variously including the following: *Automated exposure control *Adjustment of mA and/or kV according to patient size (this includes techniques or standardized protocols for targeted exams where dose is matched to indication/reason for exam; i.e. extremities or head) *Use of iterative reconstruction technique DLP: 719 mGy-cm FINDINGS: LUNG BASES: There is scarring/pleural thickening at the left lung base. LIVER, GALLBLADDER, AND BILIARY TREE: The liver is normal in size, shape, and attenuation. No focal hepatic lesion or biliary ductal dilatation is present. The gallbladder is unremarkable with no evidence of radiopaque gallstones, gallbladder wall thickening, or obvious pericholecystic inflammatory changes. PANCREAS: Unremarkable. SPLEEN: Spleen is mildly enlarged measuring up to 14 cm. ADRENAL GLANDS: Unremarkable. KIDNEYS AND URETERS: Both kidneys are small in size. There is no hydronephrosis. BLADDER: Unremarkable. GASTROINTESTINAL TRACT: There are diverticula of the cecum, descending and the sigmoid colon. There is no definitive evidence for acute diverticulitis. ABDOMINAL WALL: There is a small left inguinal hernia containing fat. LYMPH NODES: Normal. VASCULAR: Unremarkable. PELVIC VISCERA: Unremarkable. OSSEOUS STRUCTURES: There is diffuse thoracolumbar disc degenerative change. CT/CT abdomen pelvis wo IV con IMPRESSION: 1. Diverticulosis of the cecum, descending and sigmoid colon. There is no definitive evidence for acute diverticulitis. 2. Mild splenomegaly. 3. Small kidneys bilaterally. 4. Small left inguinal hernia containing fat. Fleischner guidelines were followed.
[2023-10-28 20:41] VITALS: BP 201/68; PULSE 82; RESP 18; TEMP 36.8; O2SAT 97; BMI 31.7
--- NOTE | 2023-10-28 20:42 | ED.ABDPAIN ---
HPI - Abdominal Pain General Chief Complaint: Abdominal Pain Stated Complaint: Left side pain Time Seen by Provider: 10/29/23 02:57 Source: patient Mode of arrival: ambulatory Limitations: language barrier ( patient speaks Croatian, inspector returned materials used) History of Present Illness HPI narrative: 63-year-old male with history of end-stage renal disease on dialysis, CHF, diabetes, anemia, hypertension, CHF with preserved EF, pancreatitis, depression, asthma who presents emergency department for evaluation of abdominal pain x2 days and shortness of breath x1 day. Patient states he had a gradual onset of left-sided abdominal pain which started 2 days prior and is gotten progressively worse. He describes the pain is a constant, tightness is located on the left side of his body and radiates to his left flank. He states this is 1st episode of this type of pain. The pain is 10/10. He has cut associated nausea and vomiting. He states that today he felt short of breath. He also developed an occasional cough. He did note 1 dark bowel movement today. Related Data Home Medications Medication Instructions Recorded Confirmed albuterol sulfate 90 mcg/actuation 2 puff PO Q4H PRN Shortness Of 12/01/21 12/18/22 aerosol inhaler (Ventolin HFA) Breath aspirin 81 mg tablet,delayed 1 tab PO DAILY 12/01/21 12/18/22 release cholecalciferol (vitamin D3) 25 2 tab PO DAILY 12/01/21 12/18/22 mcg (1,000 unit) tablet gabapentin 600 mg tablet 600 mg PO BEDTIME 12/01/21 12/18/22 oxcarbazepine 300 mg tablet 1 tab PO BID 12/01/21 12/18/22 perphenazine 2 mg tablet 1 tab PO BID 12/01/21 12/18/22 sertraline 100 mg tablet 2 tab PO DAILY 12/01/21 12/18/22 tramadol 50 mg tablet 2 tab PO Q8H PRN Pain 12/01/21 12/18/22 zolpidem 10 mg tablet 1 tab PO BEDTIME PRN Insomnia 12/01/21 12/18/22 blood-glucose meter (FreeStyle 06/20/22 12/18/22 Lite Meter kit) fluticasone propionate 220 2 puff inhalation BID 04/16/23 mcg/actuation HFA aerosol inhaler (Flovent HFA) isosorbide mononitrate 60 mg 120 mg PO QAM 04/16/23 tablet,extended release 24 hr ergocalciferol (vitamin D2) 1,250 0 mcg PO 06/04/23 mcg (50,000 unit) capsule Previous Rx's Medication Instructions Recorded doxazosin 2 mg tablet 2 mg PO DAILY #90 tabs 04/06/22 blood sugar diagnostic (FreeStyle #150 ea 08/17/22 Lite Strips) torsemide 20 mg tablet 80 mg (4 x 20 mg) PO BID #720 tabs 10/05/22 carvedilol 25 mg tablet 25 mg PO BID 90 days #180 tabs 10/31/22 lancets 28 gauge (FreeStyle #100 ea 10/31/22 Lancets) losartan 50 mg tablet 50 mg PO DAILY #30 tabs 12/31/22 nifedipine 30 mg tablet,extended 120 mg (4 x 30 mg) PO BEDTIME 90 12/31/22 release days #360 tabs metoclopramide HCl 10 mg tablet 10 mg PO Q6H PRN nausea and 02/13/23 (Reglan) vomiting #14 tabs omeprazole 20 mg capsule,delayed 20 mg PO BID 30 days #60 caps 04/16/23 release sucralfate 100 mg/mL oral 10 ml PO QIDACHS 2 weeks #1,000 mL 04/16/23 suspension insulin glargine U-300 conc 300 50 unit (0.1667 mL) subcut DAILY 04/25/23 unit/mL (3 mL) subcutaneous pen #6 mL (Toujeo Max U-300 SoloStar) atorvastatin 80 mg tablet 80 mg PO BEDTIME #30 tabs 06/06/23 insulin aspart U-100 100 unit/mL See Rx Instructions subcut 06/18/23 (3 mL) subcutaneous pen (Novolog .COMPLEX #15 mL FlexPen U-100 Insulin aspart) lancets 33 gauge (TRUEplus Lancets) #100 ea 07/15/23 pen needle, diabetic 32 gauge x #150 ea 07/25/23 (BD Ultra-Fine Silvia Pen Needle) icosapent ethyl 1 gram capsule 2 g (2 x 1 gram) PO BID #120 caps 08/30/23 (Vascepa) tadalafil 5 mg tablet (Cialis) 5 mg PO DAILY 90 days #90 tabs 10/15/23 Allergies Allergy/AdvReac Type Severity Reaction Status Date / Time No Known Allergies Allergy Verified 10/15/23 11:34 Review of Systems Review of Systems Yes all other systems are reviewed and are negative [facility] Past Medical History [facility] Narrative: social history: He occasionally smokes cigarettes, denies alcohol use, denies drug use. Onset Date is defined in the Problem List Problems that require an onset date and time if occurred within 24 hrs of arrival to the ED Aortic Dissection and Rupture; Neurologic impairment; Cardiopulmonary Arrest; Endotracheal Intubation; Insertion or Replacement of Mechanical Circulatory Assist Device Medical History ESRD (end stage renal disease) on dialysis CHF exacerbation Diabetes type 2, uncontrolled Anemia HTN (hypertension) Heart failure with preserved ejection fraction CKD (chronic kidney disease) stage 4, GFR 15-29 ml/min Congestive heart failure Type 2 diabetes mellitus with unspecified complications Diastolic dysfunction Essential hypertension Hyperglycemia Hypertensive crisis Pancreatitis Chronic kidney disease, stage 4 (severe) Erectile dysfunction Depression with anxiety Proteinuria Diverticulitis Type 2 diabetes mellitus with hyperglycemia, with long-term current use of insulin Type 2 diabetes mellitus with polyneuropathy Type 2 diabetes mellitus with chronic kidney disease Hypertension Hypertriglyceridemia Diabetes mellitus with hyperglycemia, with long-term current use of insulin History of alcohol abuse Abnormal biopsy of kidney Peptic ulcer Hx of pancreatitis Anxiety Depression COPD (chronic obstructive pulmonary disease) History of headache Sleep apnea Asthma On beta doron at home Elevated cholesterol CHF (congestive heart failure) HTN (hypertension) Surgical History History of esophagogastroduodenoscopy (EGD) History of surgery Hx of right inguinal hernia repair Hx of colonoscopy Family History Family History Mother Diabetes Social History Social History Household Members: None Housing: House Are you a primary career and transition teacher to a significant other at home: No Do you presently have visiting nurse or other home services: Yes ([facility]) Alcohol intake: never Comment: pt sleeping Patient Tobacco Use Status: Current everyday Tobacco user Tobacco use type: Cigarette Years Smoked: 30 Second Hand Smoke Exposure: Yes Advance Directives: No Advance Directives Information Provided: No service: No Current occupational status: retired Physical Exam ED Vital Signs: Vital Signs - 24 hr 10/28/23 20:41 10/29/23 02:58 10/29/23 04:14 Temperature 98.2 F 98.4 F 98.7 F Pulse Rate 82 75 75 Respiratory Rate 18 18 18 Blood Pressure 201/68 H 237/97 H 192/74 H Pulse Oximetry 97 98 96 Oxygen Delivery Method Room Air Room Air Room Air 10/29/23 05:33 Temperature 98.6 F Pulse Rate 74 Respiratory Rate 16 Blood Pressure 193/70 H Pulse Oximetry 96 Oxygen Delivery Method Room Air BMI result Body Mass Index 31.7 Vital signs revealed elevated blood pressure of 201/68 otherwise unremarkable exam: General: Awake, alert in no distress Head: Normocephalic, atraumatic EENT: PERRL, Lids normal, sclera normal, conjunctiva normal, nose normal , ears normal, throat without erythema or exudates Neck: Supple, no adenopathy, no trachea midline or C-spine tenderness Lung: breath sounds symmetric, no wheezing, rales or rhonchi Chest: symmetric movement, nontender Heart: regular rate and rhythm, normal S1, S2 no murmurs or rubs Abdomen: Moderate epigastric pain, mild to moderate left upper left lower quadrant tenderness, mild left flank CVA tenderness Back: no vertebral tenderness, no CVAT Extremities: no deformities, moves all extremities symmetrically Skin: no rashes, no lesion, normal color and warmth noted the area of his pain Neuro: Awake, alert, oriented, normal speech,t, moves all extremities symmetrically Psych: Pleasant, cooperative Course Course Course Narrative: This is a rapid medical exam. Deferred additional HPI, ROS, PE to primary provider. 63 yo male with history of ESRD on HD M/W/F, PAD, duodenal ulcers, HFpEF, DM2, HTN, asthma/COPD, BRENDA on CPAP, hx pancreatitis here with complaints of LUQ abdominal pain/left sided chest pain w/ nausea. Will need labs, EKG, CXR, UA, viral testing VSS Medical Decision Making Medical Decision Making MDM Narrative: 63-year-old male with history of end-stage renal disease on dialysis, CHF, diabetes, anemia, hypertension, CHF with preserved EF, pancreatitis, depression, asthma who presents emergency department for evaluation of abdominal pain x2 days and shortness of breath x1 day. Patient states he had a gradual onset of left-sided abdominal pain which started 2 days prior and is gotten progressively worse. He describes the pain is a constant, tightness is located on the left side of his body and radiates to his left flank. He states this is 1st episode of this type of pain. The pain is 10/10. He has cut associated nausea and vomiting. He states that today he felt short of breath. He also developed an occasional cough. He did note 1 dark bowel movement today. patient was treated with morphine 4 mg IV x2 with only minimal improvement of his pain ( pain is now 8/10). Laboratory evaluation was unremarkable and CT scan of the abdomen pelvis did not reveal a clear cause for his pain. Patient does have significant epigastric tenderness and a suspect that he has gastritis, he was given Maalox 30 cc and viscous lidocaine 10 cc Orally. He was given a prescription for Prilosec 20 mg once a day for 1 month. He was given printed and verbal instructions and discharged home. Differential Diagnosis Differential Diagnoses: The differential diagnosis associated with the presentation includes differential diagnosis includes was not limited to pancreatitis, diverticulitis, gastritis, viral syndrome, musculoskeletal pain Admission/Observation Consideration of admission/observation: Escalation of care including admission/observation considered Lab Data MDM Lab Attestation statement: I reviewed the patient's lab results. My interpretation patient's laboratory evaluation is as follows: H&H was low 9 and 26.7, platelet count was low 142-these are chronic consistent with his renal disease. BUN creatinine are elevated 398.82 again chronic secondary to his renal disease. Troponin was slightly elevated at 35.4 but this is most likely caused by his renal disease. COVID-19, influenza and RSV was negative 10/28/23 21:04 10/28/23 21:04 Labs: Lab Results 10/28/23 10/28/23 10/28/23 Range/Units 21:04 21:05 23:11 WBC 8.6 (4.8-10.8) X10*3/uL RBC 2.87 L (4.60-5.80) X10*6/uL Hgb 9.0 L (14.0-18.0) g/dl Hct 26.7 L (42.0-52.0) % MCV 93.0 (80.0-98.0) fL MCH 31.2 (27.0-33.0) pg MCHC 33.6 (31.0-36.0) g/dl RDW 14.0 (11.0-16.0) % Plt Count 142 L (160-400) X10*3/uL MPV 11.4 (9.4-12.4) fL Immature Gran % (Auto) 0.6 H (0.0-0.4) % Neut % (Auto) 68.5 (45-73) % Lymph % (Auto) 21.6 (20-40) % [place] % (Auto) 5.4 (2-11) % Eos % (Auto) 3.4 (0-4) % Baso % (Auto) 0.5 (0-2) % Lymph # (Auto) 1.9 (1.2-4.9) X10*3/uL [place] # (Auto) 0.5 (0.1-1.2) X10*3/uL Eos # (Auto) 0.3 (0.0-0.4) X10*3/uL Baso # (Auto) 0.0 (0.0-0.2) X10*3/uL Abs Immat Gran (auto) 0.05 H (0.00-0.03) X10*3/uL Absolute Neuts (auto) 5.9 (2.0-8.3) x10*3/uL Absolute Nucleated RBC 0.000 (0.0-0.012) X10*3/uL Nucleated RBC % (auto) 0.0 (0.0-0.2) /100WBC PT 11.6 (11.1-13.3) SEC INR 1.0 (0.9-1.1) Sodium 143 (135-145) mmol/L Potassium 4.3 (3.3-5.1) mmol/L Chloride 100 (96-108) mmol/L Carbon Dioxide 28 (22-29) mmol/L Anion Gap 19 (12-20) BUN 39 H (9-16) mg/dL Creatinine 8.82 H* (0.5-1.4) mg/dL Estim Creat Clear Calc 10.4 Estimated GFR 6 Random Glucose 130 H (60-115) mg/dL Calcium 8.5 D (8.4-10.2) mg/dL Magnesium 1.9 (1.6-2.6) mg/dL Total Bilirubin 0.3 (0.0-1.0) mg/dL Direct Bilirubin 0.1 (0.0-0.5) mg/dL AST 16 (5-37) U/L ALT 13 (0-40) U/L Alkaline Phosphatase 105 (39-117) U/L Troponin I High Sens 35.4 H D (<3.5-35.0) ng/L Total Protein 8.3 H (6.5-8.0) g/dL Albumin 4.2 (3.5-5.0) g/dL Lipase 68 (8-78) U/L Urine Color Yellow Urine Appearance Clear Urine pH >= 9.0 (5.0-9.0) Ur Specific [place] 1.015 (1.005-1.025) Urine Protein >=1000 (4+) H (Neg-Trace) mg/dL Urine Glucose (UA) 100 H (Negative) mg/dL Urine Ketones Negative (Negative) mg/dL Urine Blood Trace H (Negative) Urine Nitrite Negative (Negative) Ur Leukocyte Esterase Trace H (Negative) Urine RBC 3-5 H (0-2) /HPF Urine WBC 11-20 H (0-5) /HPF Ur Squamous Epith Cells 0-2 (0-2) /HPF Urine Bacteria None Seen (None Seen) Hyaline Casts 0-2 (0-2) /LPF Influenza Type A (PCR) NEGATIVE (Negative) Influenza Type B (PCR) NEGATIVE (Negative) RSV RNA Qual (PCR) NEGATIVE (Negative) SARS-CoV-2 RNA (RT-PCR) NEGATIVE (Negative) Independent Interpretation I performed an independent interpretation of an: EKG and Plain X-Ray Interpretation: my independent interpretation patient's one-view chest x-ray is as follows: No acute disease my interpretation patient's 12 EKG done at 20:53 hours is as follows: Normal sinus rhythm with a rate of 79, normal [place] interval, prolonged QRS duration of 160 millisecond, prolonged QTC of 486 milliseconds, right bundle-branch block, no T-wave abnormalities, no PACs, no PVCs Radiology Impression Discussion of test interpretation with radiology: I have reviewed the radiologist's reading. Radiologist Impression: XR chest 2V IMPRESSION: No evidence of acute disease Dictated By: Judson Gibbs MD CT abdomen pelvis wo IV con IMPRESSION: 1. Diverticulosis of the cecum, descending and sigmoid colon. There is no definitive evidence for acute diverticulitis. 2. Mild splenomegaly. 3. Small kidneys bilaterally. 4. Small left inguinal hernia containing fat. Fleischner guidelines were followed. Dictated By: Eliecer Astorga Prescription Management I considered prescription management with: Other ( H2 doron) Chronic Conditions Patient?s care impacted by: Diabetes and Other ( end-stage renal disease on dialysis) Medications Administered Discontinued Medications Generic Name Dose Route Start Last Admin Trade Name Ele PRN Reason Stop Dose Admin Morphine Sulfate 4 mg 10/29/23 03:16 10/29/23 03:35 Morphine Sulfate 4 Mg/Ml Cartridge IVPUSH 10/29/23 03:17 4 mg ONCE STA Administration Protocol Morphine Sulfate 4 mg 10/29/23 04:04 10/29/23 04:29 Morphine Sulfate 4 Mg/Ml Cartridge IVPUSH 10/29/23 04:05 4 mg ONCE STA Administration Protocol Ondansetron HCl 4 mg 10/29/23 03:16 10/29/23 03:35 Ondansetron Hcl 4 Mg/2 Ml Vial IVPUSH 10/29/23 03:17 4 mg ONCE ONE Administration Discharge Plan Discharge Clinical Impression: Gastritis Qualifiers: Gastritis type: unspecified gastritis Chronicity: acute Gastritis bleeding: without bleeding Qualified Code(s): K29.00 - Acute gastritis without bleeding Patient Disposition: Home, Self-Care Instructions: Gastritis (ED) Additional Instructions: your blood work was consistent with your kidney disease. The CT scan did not reveal any clear cause for your abdominal pain you have tenderness over your stomach, at this time I believe that you have inflammation of your stomach and this is called gastritis. Take Prilosec (omeprazole) 20 mg pills, 1 pill once a day for 1 month. This medication shuts off your acid production and lets the inflammation in your stomach and esophagus heal. Follow-up with your doctor in 2 days. Please return to the emergency department if your symptoms get worse or if you develop any symptoms that are concerning to you. Prescriptions: No Action doxazosin 2 mg tablet 2 mg PO DAILY Qty: 90 1RF (DME) FreeStyle Lite Strips Strip See Rx Instructions .Route Qty: 150 11RF Rx Instructions: As directed 4x DAILY torsemide 20 mg tablet 80 mg PO BID Qty: 720 1RF Rx Instructions: OVERDUE FOR FOLLOW UP APPT. PLEASE CALL TO SCHEDULE APPT FOR 2022 @ [phone] TO CONTINUE RECVING REFILLS. carvedilol 25 mg tablet 25 mg PO BID 90 Days Qty: 180 2RF Rx Instructions: OVERDUE FOR APPT. PLEASE CALL [phone] TO SCHEDULE FOLLOW UP SO WE CAN CONTINUE REFILLING THIS PRESCRIPTION. (DME) lancets [FreeStyle Lancets] 28 gauge misc See Rx Instructions .Route Qty: 100 6RF Rx Instructions: As directed nifedipine 30 mg tablet extended release 120 mg PO BEDTIME 90 Days Qty: 360 0RF Rx Instructions: Must make cardiology appt for refills losartan 50 mg tablet 50 mg PO DAILY Qty: 30 0RF Rx Instructions: Must make cardiology appt for refills Toujeo Max U-300 SoloStar 300 unit/mL (3 mL) insulin pen 50 unit subcut DAILY Qty: 6 6RF atorvastatin 80 mg tablet 80 mg PO BEDTIME Qty: 30 5RF insulin aspart U-100 [Novolog FlexPen U-100 Insulin] 100 unit/mL (3 mL) insulin pen See Rx Instructions subcut .COMPLEX Qty: 15 4RF Rx Instructions: Inject 10 units with breakfast, 24 units with lunch and 16 units with subcutaneously; (DME) lancets [TRUEplus Lancets] 33 gauge misc See Rx Instructions .ROUTE .COMPLEX Qty: 100 6RF Dose Instruction: TEST BLOOD SUGAR FOUR TIMES DAILY DIRECTED Rx Instructions: TEST BLOOD SUGAR FOUR TIMES DAILY DIRECTED (DME) pen needle, diabetic [BD Ultra-Fine Silvia Pen Needle] 32 gauge x 5/32 needle See Rx Instructions .ROUTE .MEDSUPPLY Qty: 150 11RF Rx Instructions: As directed five times a day icosapent ethyl [Vascepa] 1 gram capsule 2 g PO BID Qty: 120 6RF gabapentin 600 mg tablet 600 mg PO BEDTIME perphenazine 2 mg tablet 1 tab PO BID sertraline 100 mg tablet 2 tab PO DAILY oxcarbazepine 300 mg tablet 1 tab PO BID aspirin 81 mg tablet,delayed release (DR/EC) 1 tab PO DAILY tramadol 50 mg tablet 2 tab PO Q8H PRN (Reason: Pain) zolpidem 10 mg tablet 1 tab PO BEDTIME PRN (Reason: Insomnia) cholecalciferol (vitamin D3) 25 mcg (1,000 unit) tablet 2 tab PO DAILY albuterol sulfate [Ventolin HFA] 90 mcg/actuation HFA aerosol inhaler 2 puff PO Q4H PRN (Reason: Shortness Of Breath) metoclopramide HCl [Reglan] 10 mg tablet 10 mg PO Q6H PRN (Reason: nausea and vomiting) Qty: 14 0RF (DME) blood-glucose meter [FreeStyle Lite Meter] Kit See Rx Instructions .Route Rx Instructions: As directed ergocalciferol (vitamin D2) 1,250 mcg (50,000 unit) capsule 0 mcg PO tadalafil [Cialis] 5 mg tablet 5 mg PO DAILY 90 Days Qty: 90 1RF Rx Instructions: [id number] [facility] [id number] Member [id number] isosorbide mononitrate 60 mg tablet extended release 24 hr 120 mg PO QAM Rx Instructions: Current regimen fluticasone propionate [Flovent HFA] 220 mcg/actuation HFA aerosol inhaler 2 puff inhalation BID omeprazole 20 mg capsule,delayed release(DR/EC) 20 mg PO BID 30 Days Qty: 60 0RF sucralfate 100 mg/mL suspension 10 ml PO QIDACHS 14 Days Qty: 1000 0RF
--- NOTE | 2023-10-28 20:43 | ECG_ITS ---
Test Reason : abd pain Blood Pressure : / mmHG Vent. Rate : 079 BPM Atrial Rate : 079 BPM P-R Int : 196 ms QRS Dur : 160 ms QT Int : 424 ms P-R-T Axes : 056 -73 041 degrees QTc Int : 486 ms Normal sinus rhythm Possible Left atrial enlargement Right bundle branch block Left anterior fascicular block Bifascicular block Left ventricular hypertrophy ( R in aVL , Romhilt-Allen ) Possible Lateral infarct (cited on or before 26-JUN-2023) Abnormal ECG When compared with ECG of 26-JUN-2023 10:12, No significant change was found Referred By: Barbara Oneill Electronically Signed By:Davon Olivares
[2023-10-28 21:10] LABS: MANUAL DIFF FLAG NO
[2023-10-28 21:11] LABS: Basophils Percent Auto 0.5 % (0-2); Eosinophils Absolute Auto 0.3 X10*3/uL (0.0-0.4); Eosinophils Percent Auto 3.4 % (0-4); Hematocrit 26.7 % (42.0-52.0); Imm Gran Abs Auto 0.05 X10*3/uL (0.00-0.03); Imm Gran Pct Auto 0.6 % (0.0-0.4); Lymphocytes Absolute Auto 1.9 X10*3/uL (1.2-4.9); Lymphocytes Percent Auto 21.6 % (20-40); Mean Platelet Volume 11.4 fL (9.4-12.4); Monocytes Absolute Auto 0.5 X10*3/uL (0.1-1.2); Monocytes Percent Auto 5.4 % (2-11); Neutrophils Absolute Auto 5.9 x10*3/uL (2.0-8.3); Neutrophils Percent Auto 68.5 % (45-73); Platelet Count 142 X10*3/uL (160-400); Red Blood Count 2.87 X10*6/uL (4.60-5.80); SCAN SMEAR FLAG 1; White Blood Count 8.6 X10*3/uL (4.8-10.8)
[2023-10-28 21:17] LABS: Prothrombin Time 11.6 SEC (11.1-13.3)
[2023-10-28 21:32] LABS: Troponin-I High Sensitivity 35.4 ng/L (<3.5-35.0)
[2023-10-28 21:48] LABS: Influenza A PCR NEGATIVE (Negative); Influenza B PCR NEGATIVE (Negative); Resp Syncy Virus RNA Qual PCR NEGATIVE (Negative); SARS COV2 PCR INHOUSE NEGATIVE (Negative)
[2023-10-28 21:54] LABS: Mean Corpuscular HGB Conc 33.6 g/dl (31.0-36.0); Mean Corpuscular Hemoglobin 31.2 pg (27.0-33.0)
[2023-10-28 22:33] LABS: Anion Gap 19 (12-20)
[2023-10-28 22:49] LABS: Alanine Aminotransferase 13 U/L (0-40); Albumin Level 4.2 g/dL (3.5-5.0); Alkaline Phosphatase 105 U/L (39-117); Aspartate Amino Transferase 16 U/L (5-37); Bilirubin Direct 0.1 mg/dL (0.0-0.5); Bilirubin Total 0.3 mg/dL (0.0-1.0); Blood Urea Nitrogen 39 mg/dL (9-16); Calcium 8.5 mg/dL (8.4-10.2); Carbon Dioxide 28 mmol/L (22-29); Chloride 100 mmol/L (96-108); Creatinine Clr Calc Pharmacy 10.4; Estimated Glomerular Filt Rate 6; Glucose Random 130 mg/dL (60-115); Lipase 68 U/L (8-78); Magnesium 1.9 mg/dL (1.6-2.6); Potassium 4.3 mmol/L (3.3-5.1); Sodium 143 mmol/L (135-145); Total Protein 8.3 g/dL (6.5-8.0)
--- NOTE | 2023-10-28 23:12 | MHC.EDTECH ---
Patient urine sample collected and sent to lab .
[2023-10-28 23:25] LABS: Appearance Urine Clear; Color Urine Yellow; Glucose Urine UA 100 mg/dL (Negative); Leukocyte Esterase Urine Trace (Negative); Nitrite Urine Negative (Negative); PH >= 9.0 (5.0-9.0); Specific Gravity - Urine 1.015 (1.005-1.025); UMIC TRIGGER UACC YES; Urine Blood Trace (Negative); Urine Ketones Negative (Negative); Urine Protein >=1000 (4+) mg/dL (Neg-Trace)
[2023-10-28 23:36] LABS: Bacteria Urine None Seen (None Seen); Hyaline Casts Urine 0-2 /LPF (0-2); Squamous Epithelial Cell Urine 0-2 /HPF (0-2); UACC Culture Trigger YES
[2023-10-29 02:58] VITALS: BP 237/97; PULSE 75; RESP 18; TEMP 36.9; O2SAT 98
--- NOTE | 2023-10-29 03:03 | MHC.EDTECH ---
Hourly rounds and vitals completed, Patients BP is elevated 237/97 flash welder aware. Call simental within reach
[2023-10-29] MEDS: ondansetron HCL 4 MG/2 ML VIAL IVPUSH (03:35)
[2023-10-29] MEDS: Morphine Sulfate 4 MG/ML CARTRIDGE IVPUSH ×2 (03:35→04:29)
[2023-10-29 04:14] VITALS: BP 192/74; PULSE 75; RESP 18; TEMP 37.1; O2SAT 96
--- NOTE | 2023-10-29 04:27 | MHC.EDTECH ---
Hourly rounds and vitals completed, patients BP is elevated 192/74 RN is aware. Patient is resting at this time and call simental at bedside within reach.
[2023-10-29 05:33] VITALS: BP 193/70; PULSE 74; RESP 16; TEMP 37; O2SAT 96
--- NOTE | 2023-10-29 05:34 | MHC.EDTECH ---
Hourly rounds and vitals completed,BP elevated 193/70 RN aware, Patient is resting comfortably at this time, lights dimmed and call simental within reach.
[2023-10-29] MEDS: Magnesium Hydrox/Alum Hydrox 30 ML ORAL.SUSP PO (05:50)
[2023-10-29] MEDS: Lidocaine HCl Viscous 2 % 15 ML SOLUTION 10 ML PO (05:50)
== END 2023-10-29 06:57 | disposition home or self-care (01) ==
PROVIDERS: Nurse Practitioner Family; Emergency Provider Emergency Medicine Emergency Medical Services; PCP Nurse Practitioner Primary Care
DX: K29.00 Acute gastritis without bleeding (principal); R06.02 Shortness of breath; Z20.822 Contact with and (suspected) exposure to COVID-19; Z20.828 Contact with and (suspected) exposure to other viral communicable diseases; E11.22 Type 2 diabetes mellitus with diabetic chronic kidney disease; I13.2 Hypertensive heart and chronic kidney disease with heart failure and with stage 5 chronic kidney disease, or end stage renal disease; I50.43 Acute on chronic combined systolic (congestive) and diastolic (congestive) heart failure; N18.6 End stage renal disease; Z99.2 Dependence on renal dialysis; E78.00 Pure hypercholesterolemia, unspecified; F17.210 Nicotine dependence, cigarettes, uncomplicated; Z79.82 Long term (current) use of aspirin; Z79.899 Other long term (current) drug therapy; Z79.4 Long term (current) use of insulin; Z79.02 Long term (current) use of antithrombotics/antiplatelets
CPT/HCPCS: 0241U; 36415; 71046; 74176; 80048; 80076; 81001; 83690; 83735; 84484; 85025; 85610; 87086; 93005; 96374; 96375; 96376; 99284; J2270; J2405

== ENCOUNTER → 2023-10-28 20:43 | Outpatient (BNV) | payer OTHER, SELFPAY | PROVIDERS: Emergency Provider Emergency Medicine Emergency Medical Services; PCP Nurse Practitioner Primary Care; Visit Provider Internal Medicine Cardiovascular Disease | DX: I45.2 Bifascicular block (principal); R94.31 Abnormal electrocardiogram [ECG] [EKG] | CPT/HCPCS: 93010 ==

== ENCOUNTER 2023-11-07 02:46 | Emergency (ER) | payer OTHER, SELFPAY ==
--- NOTE | ~2023-11-07 | CT_ITS ---
EXAMINATION: CT CHEST WITHOUT CONTRAST CLINICAL INFORMATION: Left upper back pain, cough, etiology COMPARISON: Chest radiograph dated 10/28/2023. CT dated 04/12/2022 TECHNIQUE: Multidetector volumetric CT imaging of the chest was done. Axial MIP volume rendering provided. Sagittal and coronal reformatted images were obtained. This CT examination was performed using dose optimization techniques as appropriate, variously including the following: *Automated exposure control *Adjustment of mA and/or kV according to patient size (this includes techniques or standardized protocols for targeted exams where dose is matched to indication/reason for exam; i.e. extremities or head) *Use of iterative reconstruction technique DLP: 371 mGy-cm FINDINGS: LUNGS: A 3 mm calcified granulomas again seen in the left lower lobe. There is associated pleural parenchymal scarring at the left lower lobe near the base. No airspace consolidation. Central airways are clear. MEDIASTINUM: Heart is normal in size. No pericardial effusion. No adenopathy. CORONARY ARTERY CALCIFICATION: None visualized on this study. PLEURA: Pleural thickening and calcification at the posterior aspect of the left hemithorax is unchanged. No effusion. AXILLA: No lymphadenopathy. UPPER ABDOMEN: Unremarkable. OSSEOUS STRUCTURES: Diffuse idiopathic skeletal hyperostosis is present in the lower thoracic and lumbar spine with large bridging osteophytes. No fractures. Vertebral body heights are normal. CT/CT chest wo IV con IMPRESSION: 1. No acute findings in the chest. 2. Pleural thickening and calcification at the left lung base is unchanged from prior. No acute pulmonary findings. 3. Diffuse idiopathic skeletal hyperostosis in the lower thoracic and lumbar spine. Fleischner guidelines were followed.
[2023-11-07 02:48] VITALS: BP 160/72; BP 172/56; PULSE 78; RESP 16; TEMP 36.8; O2SAT 97; BMI 32.4
--- NOTE | 2023-11-07 02:48 | ED_ITS ---
HPI - Abdominal Pain General Chief Complaint: Abdominal Pain Stated Complaint: rt side back pain Time Seen by Provider: 11/07/23 02:47 Source: patient Mode of arrival: EMS Limitations: no limitations History of Present Illness HPI narrative: 63-year-old male with history of end-stage renal disease on dialysis M,W, F, CHF, diabetes, anemia, hypertension, CHF with preserved EF, pancreatitis, depression, asthma comes here for pain in the left flank and left lower posterior ribs for last 2 weeks patient was seen here on 10/28/[address] scan of the abdomen pelvis which was negative for acute. Patient does have chronic nausea pain increases on deep inspiration and movement no rash no fever no chills no diarrhea Related Data Home Medications Medication Instructions Recorded Confirmed albuterol sulfate 90 mcg/actuation 2 puff PO Q4H PRN Shortness Of 12/01/21 12/18/22 aerosol inhaler (Ventolin HFA) Breath aspirin 81 mg tablet,delayed 1 tab PO DAILY 12/01/21 12/18/22 release cholecalciferol (vitamin D3) 25 2 tab PO DAILY 12/01/21 12/18/22 mcg (1,000 unit) tablet gabapentin 600 mg tablet 600 mg PO BEDTIME 12/01/21 12/18/22 oxcarbazepine 300 mg tablet 1 tab PO BID 12/01/21 12/18/22 perphenazine 2 mg tablet 1 tab PO BID 12/01/21 12/18/22 sertraline 100 mg tablet 2 tab PO DAILY 12/01/21 12/18/22 tramadol 50 mg tablet 2 tab PO Q8H PRN Pain 12/01/21 12/18/22 zolpidem 10 mg tablet 1 tab PO BEDTIME PRN Insomnia 12/01/21 12/18/22 blood-glucose meter (FreeStyle 06/20/22 12/18/22 Lite Meter kit) fluticasone propionate 220 2 puff inhalation BID 04/16/23 mcg/actuation HFA aerosol inhaler (Flovent HFA) isosorbide mononitrate 60 mg 120 mg PO QAM 04/16/23 tablet,extended release 24 hr ergocalciferol (vitamin D2) 1,250 0 mcg PO 06/04/23 mcg (50,000 unit) capsule Previous Rx's Medication Instructions Recorded doxazosin 2 mg tablet 2 mg PO DAILY #90 tabs 04/06/22 blood sugar diagnostic (FreeStyle #150 ea 08/17/22 Lite Strips) torsemide 20 mg tablet 80 mg (4 x 20 mg) PO BID #720 tabs 10/05/22 carvedilol 25 mg tablet 25 mg PO BID 90 days #180 tabs 10/31/22 lancets 28 gauge (FreeStyle #100 ea 10/31/22 Lancets) losartan 50 mg tablet 50 mg PO DAILY #30 tabs 12/31/22 nifedipine 30 mg tablet,extended 120 mg (4 x 30 mg) PO BEDTIME 90 12/31/22 release days #360 tabs metoclopramide HCl 10 mg tablet 10 mg PO Q6H PRN nausea and 02/13/23 (Reglan) vomiting #14 tabs omeprazole 20 mg capsule,delayed 20 mg PO BID 30 days #60 caps 04/16/23 release sucralfate 100 mg/mL oral 10 ml PO QIDACHS 2 weeks #1,000 mL 04/16/23 suspension insulin glargine U-300 conc 300 50 unit (0.1667 mL) subcut DAILY 04/25/23 unit/mL (3 mL) subcutaneous pen #6 mL (Toujeo Max U-300 SoloStar) atorvastatin 80 mg tablet 80 mg PO BEDTIME #30 tabs 06/06/23 insulin aspart U-100 100 unit/mL See Rx Instructions subcut 06/18/23 (3 mL) subcutaneous pen (Novolog .COMPLEX #15 mL FlexPen U-100 Insulin aspart) lancets 33 gauge (TRUEplus Lancets) #100 ea 07/15/23 pen needle, diabetic 32 gauge x #150 ea 07/25/23/32 (BD Ultra-Fine Silvia Pen Needle) icosapent ethyl 1 gram capsule 2 g (2 x 1 gram) PO BID #120 caps 08/30/23 (Vascepa) tadalafil 5 mg tablet (Cialis) 5 mg PO DAILY 90 days #90 tabs 10/15/23 cyclobenzaprine 5 mg tablet 5 mg PO BID PRN muscle spasm #20 11/07/23 tabs Allergies Allergy/AdvReac Type Severity Reaction Status Date / Time No Known Allergies Allergy Verified 11/07/23 02:58 Review of Systems Review of Systems Yes all other systems are reviewed and are negative PMFSH Past Medical History Onset Date is defined in the Problem List Problems that require an onset date and time if occurred within 24 hrs of arrival to the ED Aortic Dissection and Rupture; Neurologic impairment; Cardiopulmonary Arrest; Endotracheal Intubation; Insertion or Replacement of Mechanical Circulatory Assist Device Medical History ESRD (end stage renal disease) on dialysis CHF exacerbation Diabetes type 2, uncontrolled Anemia HTN (hypertension) Heart failure with preserved ejection fraction CKD (chronic kidney disease) stage 4, GFR 15-29 ml/min Congestive heart failure Type 2 diabetes mellitus with unspecified complications Diastolic dysfunction Essential hypertension Hyperglycemia Hypertensive crisis Pancreatitis Chronic kidney disease, stage 4 (severe) Erectile dysfunction Depression with anxiety Proteinuria Diverticulitis Type 2 diabetes mellitus with hyperglycemia, with long-term current use of insulin Type 2 diabetes mellitus with polyneuropathy Type 2 diabetes mellitus with chronic kidney disease Hypertension Hypertriglyceridemia Diabetes mellitus with hyperglycemia, with long-term current use of insulin History of alcohol abuse Abnormal biopsy of kidney Peptic ulcer Hx of pancreatitis Anxiety Depression COPD (chronic obstructive pulmonary disease) History of headache Sleep apnea Asthma On beta doron at home Elevated cholesterol CHF (congestive heart failure) HTN (hypertension) Surgical History History of esophagogastroduodenoscopy (EGD) History of surgery Hx of right inguinal hernia repair Hx of colonoscopy Family History Family History Mother Diabetes Social History Social History Household Members: None Housing: House Are you a primary critical care nurse practitioner to a significant other at home: No Do you presently have visiting nurse or other home services: Yes ([employer]) Alcohol intake: never Comment: pt sleeping Patient Tobacco Use Status: Current everyday Tobacco user Tobacco use type: Cigarette Years Smoked: 30 Smoked in Last 30 Days: Yes Second Hand Smoke Exposure: Yes Use of substances other than those prescribed or required for medical reasons: No Advance Directives: No Advance Directives Information Provided: No service: No Current occupational status: retired Physical Exam ED Vital Signs: Vital Signs - 24 hr 11/07/23 02:48 11/07/23 05:46 Temperature 98.2 F 98.1 F Pulse Rate 78 73 Respiratory Rate 16 15 Blood Pressure 172/56 H 180/63 H Pulse Oximetry 97 95 Oxygen Delivery Method Room Air Room Air BMI result Body Mass Index 32.4 Appearance: Alert. Oriented X3. No acute distress. Eyes: PERRLA, No Nystagmus ENT: Pharynx normal. Oral Mucosa moist Neck: Normal inspection. Neck supple. CVS: Normal heart rate and rhythm. Pulses normal. Respiratory: No respiratory distress. Equal air entry bilateral, no wheezing/rales/rhonchi Abdomen: Soft and nontender. Bowel sounds are present, no mass palpable, no CVA tenderness tenderness in the left lower rib posteriorly no rash Skin: Skin warm and dry. Normal skin color. Normal skin turgor. Extremities: No lower extremity edema. No calf tenderness Neuro: Oriented X 3. Medical Decision Making Medical Decision Making [facility] Narrative: Patient with chronic pain in the back comes here for pain in the left lower ribs and left upper abdomen same when he was here last visit 10/29/[address] scan was negative CT of the chest also negative today labs are stable except elevated creatinine. Patient on tramadol will give Flexeril for muscle relaxant cause of the pain likely musculoskeletal Differential Diagnosis Differential Diagnoses: The differential diagnosis associated with the presentation includes Pneumonia/PE/pleurisy/musculoskeletal pain/pancreatitis Lab Data [facility] Lab Attestation statement: I reviewed the patient's lab results. 11/07/23 03:01 11/07/23 04:10 Labs: Lab Results 11/07/23 11/07/23 Range/Units 03:01 04:10 WBC 7.0 (4.8-10.8) X10*3/uL RBC 2.98 L (4.60-5.80) X10*6/uL Hgb 9.9 L (14.0-18.0) g/dl Hct 28.8 L (42.0-52.0) % MCV 96.6 (80.0-98.0) fL MCH 33.2 H (27.0-33.0) pg MCHC 34.4 (31.0-36.0) g/dl RDW 14.5 (11.0-16.0) % Plt Count 137 L (160-400) X10*3/uL MPV 11.8 (9.4-12.4) fL Immature Gran % (Auto) 0.4 (0.0-0.4) % Neut % (Auto) 64.7 (45-73) % Lymph % (Auto) 22.3 (20-40) % [place] % (Auto) 5.5 (2-11) % Eos % (Auto) 6.7 H (0-4) % Baso % (Auto) 0.4 (0-2) % Lymph # (Auto) 1.6 (1.2-4.9) X10*3/uL [place] # (Auto) 0.4 (0.1-1.2) X10*3/uL Eos # (Auto) 0.5 H (0.0-0.4) X10*3/uL Baso # (Auto) 0.0 (0.0-0.2) X10*3/uL Abs Immat Gran (auto) 0.03 (0.00-0.03) X10*3/uL Absolute Neuts (auto) 4.5 (2.0-8.3) x10*3/uL Absolute Nucleated RBC 0.000 (0.0-0.012) X10*3/uL Nucleated RBC % (auto) 0.0 (0.0-0.2) /100WBC D-Dimer High Sensitivty 191 NG/ML Sodium 142 (135-145) mmol/L Potassium 4.1 (3.3-5.1) mmol/L Chloride 99 (96-108) mmol/L Carbon Dioxide 30 H (22-29) mmol/L Anion Gap 17 (12-20) BUN 37 H (9-16) mg/dL Creatinine 8.60 H* (0.5-1.4) mg/dL Estim Creat Clear Calc 10.8 Estimated GFR 6 Random Glucose 115 (60-115) mg/dL Calcium 8.9 (8.4-10.2) mg/dL Total Bilirubin 0.4 (0.0-1.0) mg/dL AST 10 (5-37) U/L ALT 9 (0-40) U/L Alkaline Phosphatase 102 (39-117) U/L Total Protein 8.5 H (6.5-8.0) g/dL Albumin 4.3 (3.5-5.0) g/dL Lipase 32 (8-78) U/L Independent Interpretation I performed an independent interpretation of an: CT Scan Radiology Impression Discussion of test interpretation with radiology: I have reviewed the radiologist's reading. Radiologist Impression: [address] [address] [address] Scan Report Signed Patient: Jose D Dickens MR#: [id number] : 1960 Acct:[id number] Age/Sex: 63 / M ADM Date: 11/07/23 Loc: HO.ED Attending Dr: Ordering Physician: Austyn Mcdaniel MD Date of Service: 11/07/23 Procedure(s): CT chest wo IV con Accession Number(s): [id number] cc: Physician,Unknown ; Austyn Mcdaniel MD~ EXAMINATION: CT CHEST WITHOUT CONTRAST CLINICAL INFORMATION: Left upper back pain, cough, etiology COMPARISON: Chest radiograph dated 10/28/2023. CT dated 04/12/2022 TECHNIQUE: Multidetector volumetric CT imaging of the chest was done. Axial MIP volume rendering provided. Sagittal and coronal reformatted images were obtained. This CT examination was performed using dose optimization techniques as appropriate, variously including the following: *Automated exposure control *Adjustment of mA and/or kV according to patient size (this includes techniques or standardized protocols for targeted exams where dose is matched to indication/reason for exam; i.e. extremities or head) *Use of iterative reconstruction technique DLP: 371 mGy-cm FINDINGS: LUNGS: A 3 mm calcified granulomas again seen in the left lower lobe. There is associated pleural parenchymal scarring at the left lower lobe near the base. No airspace consolidation. Central airways are clear. MEDIASTINUM: Heart is normal in size. No pericardial effusion. No adenopathy. CORONARY ARTERY CALCIFICATION: None visualized on this study. PLEURA: Pleural thickening and calcification at the posterior aspect of the left hemithorax is unchanged. No effusion. AXILLA: No lymphadenopathy. UPPER ABDOMEN: Unremarkable. OSSEOUS STRUCTURES: Diffuse idiopathic skeletal hyperostosis is present in the lower thoracic and lumbar spine with large bridging osteophytes. No fractures. Vertebral body heights are normal. CT/CT chest wo IV con IMPRESSION: 1. No acute findings in the chest. 2. Pleural thickening and calcification at the left lung base is unchanged from prior. No acute pulmonary findings. 3. Diffuse idiopathic skeletal hyperostosis in the lower thoracic and lumbar spine. Fleischner guidelines were followed. External Record Review External record reviewed: Inpatient record Prescription Management I considered prescription management with: Pain Medication Medications Administered Discontinued Medications Generic Name Dose Route Start Last Admin Trade Name Freq PRN Reason Stop Dose Admin Morphine Sulfate 4 mg 11/07/23 03:11 11/07/23 03:21 Morphine Sulfate 4 Mg/Ml Cartridge IVPUSH 11/07/23 03:12 4 mg ONCE ONE Administration Protocol Ondansetron HCl 4 mg 11/07/23 03:11 11/07/23 03:21 Ondansetron Hcl 4 Mg/2 Ml Vial IVPUSH 11/07/23 03:12 4 mg ONCE ONE Administration Oxycodone HCl 10 mg 11/07/23 05:23 11/07/23 05:47 Oxycodone Hcl Immed Release 5 Mg Tablet PO 11/07/23 05:24 10 mg ONCE ONE Administration Discharge Plan Discharge Clinical Impression: Back pain Patient Disposition: Home, Self-Care Instructions: Back Pain (ED) Additional Instructions: Likely you have musculoskeletal pain Take pain medication as prescribed by your PCP and follow up with PCP Muscle relaxants as advised Prescriptions: New cyclobenzaprine 5 mg tablet 5 mg PO BID PRN (Reason: muscle spasm) Qty: 20 0RF No Action doxazosin 2 mg tablet 2 mg PO DAILY Qty: 90 1RF (DME) FreeStyle Lite Strips Strip See Rx Instructions .Route Qty: 150 11RF Rx Instructions: As directed 4x DAILY torsemide 20 mg tablet 80 mg PO BID Qty: 720 1RF Rx Instructions: OVERDUE FOR FOLLOW UP APPT. PLEASE CALL TO SCHEDULE APPT FOR 2022 @ [phone] TO CONTINUE RECVING REFILLS. carvedilol 25 mg tablet 25 mg PO BID 90 Days Qty: 180 2RF Rx Instructions: OVERDUE FOR APPT. PLEASE CALL [phone] TO SCHEDULE FOLLOW UP SO WE CAN CONTINUE REFILLING THIS PRESCRIPTION. (DME) lancets [FreeStyle Lancets] 28 gauge misc See Rx Instructions .Route Qty: 100 6RF Rx Instructions: As directed nifedipine 30 mg tablet extended release 120 mg PO BEDTIME 90 Days Qty: 360 0RF Rx Instructions: Must make cardiology appt for refills losartan 50 mg tablet 50 mg PO DAILY Qty: 30 0RF Rx Instructions: Must make cardiology appt for refills Toujeo Max U-300 SoloStar 300 unit/mL (3 mL) insulin pen 50 unit subcut DAILY Qty: 6 6RF atorvastatin 80 mg tablet 80 mg PO BEDTIME Qty: 30 5RF insulin aspart U-100 [Novolog FlexPen U-100 Insulin] 100 unit/mL (3 mL) insulin pen See Rx Instructions subcut .COMPLEX Qty: 15 4RF Rx Instructions: Inject 10 units with breakfast, 24 units with lunch and 16 units with subcutaneously; (DME) lancets [TRUEplus Lancets] 33 gauge misc See Rx Instructions .ROUTE .COMPLEX Qty: 100 6RF Dose Instruction: TEST BLOOD SUGAR FOUR TIMES DAILY DIRECTED Rx Instructions: TEST BLOOD SUGAR FOUR TIMES DAILY DIRECTED (DME) pen needle, diabetic [BD Ultra-Fine Silvia Pen Needle] 32 gauge x 5/32 needle See Rx Instructions .ROUTE .MEDSUPPLY Qty: 150 11RF Rx Instructions: As directed five times a day icosapent ethyl [Vascepa] 1 gram capsule 2 g PO BID Qty: 120 6RF gabapentin 600 mg tablet 600 mg PO BEDTIME perphenazine 2 mg tablet 1 tab PO BID sertraline 100 mg tablet 2 tab PO DAILY oxcarbazepine 300 mg tablet 1 tab PO BID aspirin 81 mg tablet,delayed release (DR/EC) 1 tab PO DAILY tramadol 50 mg tablet 2 tab PO Q8H PRN (Reason: Pain) zolpidem 10 mg tablet 1 tab PO BEDTIME PRN (Reason: Insomnia) cholecalciferol (vitamin D3) 25 mcg (1,000 unit) tablet 2 tab PO DAILY albuterol sulfate [Ventolin HFA] 90 mcg/actuation HFA aerosol inhaler 2 puff PO Q4H PRN (Reason: Shortness Of Breath) metoclopramide HCl [Reglan] 10 mg tablet 10 mg PO Q6H PRN (Reason: nausea and vomiting) Qty: 14 0RF (DME) blood-glucose meter [FreeStyle Lite Meter] Kit See Rx Instructions .Route Rx Instructions: As directed ergocalciferol (vitamin D2) 1,250 mcg (50,000 unit) capsule 0 mcg PO tadalafil [Cialis] 5 mg tablet 5 mg PO DAILY 90 Days Qty: 90 1RF Rx Instructions: [id number] [facility] [id number] Member [id number] isosorbide mononitrate 60 mg tablet extended release 24 hr 120 mg PO QAM Rx Instructions: Current regimen fluticasone propionate [Flovent HFA] 220 mcg/actuation HFA aerosol inhaler 2 puff inhalation BID omeprazole 20 mg capsule,delayed release(DR/EC) 20 mg PO BID 30 Days Qty: 60 0RF sucralfate 100 mg/mL suspension 10 ml PO QIDACHS 14 Days Qty: 1000 0RF Interventions: ED Discharge Assessment Last Done: 11/07/23 05:52 Discharge Date/Time: 11/07/23 05:53
--- NOTE | 2023-11-07 02:48 | PC.NURSE ---
this rn assume care of pt. pt biba from home, a&ox4, respirations even and unlabored. pt reporting onset of left upper quadrant pain and left sided back pain for 2 weeks. pt reports being seen at [facility] on new years. pt reports episodes of nausea but denies vomiting and diarrhea. pt abdomen tender to touch on the left upper quadrant. pt denies bowel and urinary problems. provider at bedside discussing pt care. 20G placed in right AC. pt medicated per dec.
[2023-11-07 03:08] LABS: Basophils Percent Auto 0.4 % (0-2); Eosinophils Absolute Auto 0.5 X10*3/uL (0.0-0.4); Eosinophils Percent Auto 6.7 % (0-4); Hematocrit 28.8 % (42.0-52.0); Hemoglobin 9.9 g/dl (14.0-18.0); Imm Gran Abs Auto 0.03 X10*3/uL (0.00-0.03); Imm Gran Pct Auto 0.4 % (0.0-0.4); Lymphocytes Absolute Auto 1.6 X10*3/uL (1.2-4.9); Lymphocytes Percent Auto 22.3 % (20-40); MANUAL DIFF FLAG NO; Mean Corpuscular HGB Conc 34.4 g/dl (31.0-36.0); Mean Corpuscular Hemoglobin 33.2 pg (27.0-33.0); Mean Corpuscular Volume 96.6 fL (80.0-98.0); Mean Platelet Volume 11.8 fL (9.4-12.4); Monocytes Absolute Auto 0.4 X10*3/uL (0.1-1.2); Monocytes Percent Auto 5.5 % (2-11); Neutrophils Absolute Auto 4.5 x10*3/uL (2.0-8.3); Neutrophils Percent Auto 64.7 % (45-73); Platelet Count 137 X10*3/uL (160-400); Red Blood Count 2.98 X10*6/uL (4.60-5.80); Red Cell Distribution Width 14.5 % (11.0-16.0)
[2023-11-07 03:17] LABS: D Dimer High Sensitivity 191 NG/ML
[2023-11-07] MEDS: Morphine Sulfate 4 MG/ML CARTRIDGE IVPUSH (03:21)
[2023-11-07] MEDS: ondansetron HCL 4 MG/2 ML VIAL IVPUSH (03:21)
[2023-11-07 04:24] LABS: Anion Gap 17 (12-20)
[2023-11-07 04:31] LABS: Alanine Aminotransferase 9 U/L (0-40); Albumin Level 4.3 g/dL (3.5-5.0); Alkaline Phosphatase 102 U/L (39-117); Aspartate Amino Transferase 10 U/L (5-37); Bilirubin Total 0.4 mg/dL (0.0-1.0); Blood Urea Nitrogen 37 mg/dL (9-16); Calcium 8.9 mg/dL (8.4-10.2); Carbon Dioxide 30 mmol/L (22-29); Chloride 99 mmol/L (96-108); Creatinine Clr Calc Pharmacy 10.8; Estimated Glomerular Filt Rate 6; Glucose Random 115 mg/dL (60-115); Lipase 32 U/L (8-78); Potassium 4.1 mmol/L (3.3-5.1); Sodium 142 mmol/L (135-145); Total Protein 8.5 g/dL (6.5-8.0)
[2023-11-07 05:46] VITALS: BP 180/63; PULSE 73; RESP 15; TEMP 36.7; O2SAT 95
[2023-11-07] MEDS: oxyCODONE HCl Immed Release 5 MG TABLET 10 MG PO (05:47)
--- NOTE | 2023-11-07 05:53 | PC.NURSE ---
pt medicated upon discharge. pt reports daughter will provide ride home.
== END 2023-11-07 05:53 | disposition home or self-care (01) ==
PROVIDERS: Emergency Provider Internal Medicine
DX: R10.9 Unspecified abdominal pain (principal); E11.22 Type 2 diabetes mellitus with diabetic chronic kidney disease; I13.0 Hypertensive heart and chronic kidney disease with heart failure and stage 1 through stage 4 chronic kidney disease, or unspecified chronic kidney disease; N18.4 Chronic kidney disease, stage 4 (severe); I50.33 Acute on chronic diastolic (congestive) heart failure; D64.9 Anemia, unspecified; Z79.899 Other long term (current) drug therapy; Z79.4 Long term (current) use of insulin; E78.00 Pure hypercholesterolemia, unspecified
CPT/HCPCS: 36415; 71250; 80053; 83690; 85025; 85379; 96374; 96375; 99284; J2270; J2405

== ENCOUNTER 2023-11-10 22:36 | Emergency (ER) | payer OTHER, SELFPAY ==
[2023-11-10 22:47] VITALS: BP 228/88; PULSE 78; O2SAT 99; BMI 35.8
--- NOTE | 2023-11-10 22:47 | ED.ABDPAIN ---
HPI - Abdominal Pain General Chief Complaint: Abdominal Pain Stated Complaint: abdominal/back pain Time Seen by Provider: 11/10/23 22:42 Source: patient Mode of arrival: EMS Limitations: language barrier (Albanian speaking, understands some Italian, nurse office used) History of Present Illness HPI narrative: 63-year-old male with history of end-stage renal disease on dialysis dialyzed M-W-F, CHF, diabetes, anemia, hypertension, CHF with preserved EF, pancreatitis, depression, asthma who presents emergency department for evaluation of abdominal pain x 4 weeks. This is the patient's 3rd visit for abdominal pain. He states that he has a constant, tightness in his abdomen, he points to his epigastric and left upper quadrant area when asked to localize the pain. He states the pain is greater than 10/10. He had associated nausea with no vomiting. He denied fever, chills, chest pain, shortness of breath, diarrhea, dark stools or bloody stools. Patient was seen in the emergency department by me on 10/28/2023-workup included a CT scan and laboratory evaluation was unremarkable. Patient was treated for possible gastritis with omeprazole. Patient was also seen on 11/07/2023 for similar pain, had a CT scan of the chest which was negative and laboratory evaluation again was unremarkable. Patient was diagnosed with musculoskeletal back pain and treated with cyclobenzaprine. He states this is not helped his pain. Related Data Home Medications Medication Instructions Recorded Confirmed albuterol sulfate 90 mcg/actuation 2 puff PO Q4H PRN Shortness Of 12/01/21 12/18/22 aerosol inhaler (Ventolin HFA) Breath aspirin 81 mg tablet,delayed 1 tab PO DAILY 12/01/21 12/18/22 release cholecalciferol (vitamin D3) 25 2 tab PO DAILY 12/01/21 12/18/22 mcg (1,000 unit) tablet gabapentin 600 mg tablet 600 mg PO BEDTIME 12/01/21 12/18/22 oxcarbazepine 300 mg tablet 1 tab PO BID 12/01/21 12/18/22 perphenazine 2 mg tablet 1 tab PO BID 12/01/21 12/18/22 sertraline 100 mg tablet 2 tab PO DAILY 12/01/21 12/18/22 tramadol 50 mg tablet 2 tab PO Q8H PRN Pain 12/01/21 12/18/22 zolpidem 10 mg tablet 1 tab PO BEDTIME PRN Insomnia 12/01/21 12/18/22 blood-glucose meter (FreeStyle 06/20/22 12/18/22 Lite Meter kit) fluticasone propionate 220 2 puff inhalation BID 04/16/23 mcg/actuation HFA aerosol inhaler (Flovent HFA) isosorbide mononitrate 60 mg 120 mg PO QAM 04/16/23 tablet,extended release 24 hr ergocalciferol (vitamin D2) 1,250 0 mcg PO 06/04/23 mcg (50,000 unit) capsule Previous Rx's Medication Instructions Recorded doxazosin 2 mg tablet 2 mg PO DAILY #90 tabs 04/06/22 blood sugar diagnostic (FreeStyle #150 ea 08/17/22 Lite Strips) torsemide 20 mg tablet 80 mg (4 x 20 mg) PO BID #720 tabs 10/05/22 carvedilol 25 mg tablet 25 mg PO BID 90 days #180 tabs 10/31/22 lancets 28 gauge (FreeStyle #100 ea 10/31/22 Lancets) losartan 50 mg tablet 50 mg PO DAILY #30 tabs 12/31/22 nifedipine 30 mg tablet,extended 120 mg (4 x 30 mg) PO BEDTIME 90 12/31/22 release days #360 tabs metoclopramide HCl 10 mg tablet 10 mg PO Q6H PRN nausea and 02/13/23 (Reglan) vomiting #14 tabs omeprazole 20 mg capsule,delayed 20 mg PO BID 30 days #60 caps 04/16/23 release sucralfate 100 mg/mL oral 10 ml PO QIDACHS 2 weeks #1,000 mL 04/16/23 suspension insulin glargine U-300 conc 300 50 unit (0.1667 mL) subcut DAILY 04/25/23 unit/mL (3 mL) subcutaneous pen #6 mL (Toujeo Max U-300 SoloStar) atorvastatin 80 mg tablet 80 mg PO BEDTIME #30 tabs 06/06/23 insulin aspart U-100 100 unit/mL See Rx Instructions subcut 06/18/23 (3 mL) subcutaneous pen (Novolog .COMPLEX #15 mL FlexPen U-100 Insulin aspart) lancets 33 gauge (TRUEplus Lancets) #100 ea 07/15/23 pen needle, diabetic 32 gauge x #150 ea 07/25/23 (BD Ultra-Fine Silvia Pen Needle) icosapent ethyl 1 gram capsule 2 g (2 x 1 gram) PO BID #120 caps 08/30/23 (Vascepa) tadalafil 5 mg tablet (Cialis) 5 mg PO DAILY 90 days #90 tabs 10/15/23 cyclobenzaprine 5 mg tablet 5 mg PO BID PRN muscle spasm #20 11/07/23 tabs Allergies Allergy/AdvReac Type Severity Reaction Status Date / Time No Known Allergies Allergy Verified 11/07/23 02:58 Review of Systems Review of Systems Yes all other systems are reviewed and are negative PMFSH Past Medical History Onset Date is defined in the Problem List Problems that require an onset date and time if occurred within 24 hrs of arrival to the ED Aortic Dissection and Rupture; Neurologic impairment; Cardiopulmonary Arrest; Endotracheal Intubation; Insertion or Replacement of Mechanical Circulatory Assist Device Medical History ESRD (end stage renal disease) on dialysis CHF exacerbation Diabetes type 2, uncontrolled Anemia HTN (hypertension) Heart failure with preserved ejection fraction CKD (chronic kidney disease) stage 4, GFR 15-29 ml/min Congestive heart failure Type 2 diabetes mellitus with unspecified complications Diastolic dysfunction Essential hypertension Hyperglycemia Hypertensive crisis Pancreatitis Chronic kidney disease, stage 4 (severe) Erectile dysfunction Depression with anxiety Proteinuria Diverticulitis Type 2 diabetes mellitus with hyperglycemia, with long-term current use of insulin Type 2 diabetes mellitus with polyneuropathy Type 2 diabetes mellitus with chronic kidney disease Hypertension Hypertriglyceridemia Diabetes mellitus with hyperglycemia, with long-term current use of insulin History of alcohol abuse Abnormal biopsy of kidney Peptic ulcer Hx of pancreatitis Anxiety Depression COPD (chronic obstructive pulmonary disease) History of headache Sleep apnea Asthma On beta doron at home Elevated cholesterol CHF (congestive heart failure) HTN (hypertension) Surgical History History of esophagogastroduodenoscopy (EGD) History of surgery Hx of right inguinal hernia repair Hx of colonoscopy Family History Family History Mother Diabetes Social History Social History Household Members: None Housing: House Are you a primary career technical education instructor to a significant other at home: No Do you presently have visiting 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) Alcohol intake: never Comment: pt sleeping Patient Tobacco Use Status: Current everyday Tobacco user Tobacco use type: Cigarette Years Smoked: 30 Smoked in Last 30 Days: Yes Second Hand Smoke Exposure: Yes Use of substances other than those prescribed or required for medical reasons: No Advance Directives: No Advance Directives Information Provided: No service: No Current occupational status: retired Physical Exam ED Vital Signs: Vital Signs - 24 hr 11/10/23 22:54 11/11/23 00:32 Temperature 98.8 F Pulse Rate 72 71 Respiratory Rate 18 16 Blood Pressure 203/76 H 189/70 H Pulse Oximetry 97 97 Oxygen Delivery Method Room Air Room Air BMI result Body Mass Index 35.8 Exam: General: Awake, alert in no distress, elevated BMI 35.8. Head: Normocephalic, atraumatic EENT: PERRL, Lids normal, sclera normal, conjunctiva normal, nose normal , ears normal, throat without erythema or exudates Neck: Supple, no adenopathy, no trachea midline or C-spine tenderness Lung: breath sounds symmetric, no wheezing, rales or rhonchi Chest: symmetric movement, nontender Heart: regular rate and rhythm, normal S1, S2 no murmurs or rubs Abdomen: soft, mild to moderate epigastric tenderness, moderate left upper quadrant tenderness, no rebound, no voluntary or involuntary guarding Back: no vertebral tenderness, no CVAT Extremities: no deformities, moves all extremities symmetrically Neuro: Awake, alert, oriented, normal speech, cranial nerves intact, moves all extremities symmetrically Psych: Pleasant, cooperative Medical Decision Making Medical Decision Making MDM Narrative: 63-year-old male with history of end-stage renal disease on dialysis dialyzed --, CHF, diabetes, anemia, hypertension, CHF with preserved EF, pancreatitis, depression, asthma who presents emergency department for evaluation of abdominal pain x 4 weeks. Patient's examination did reveal epigastric and left upper quadrant tenderness. This is the patient's 3rd visit for abdominal pain. Patient's previous workup included a negative CT scan of the chest and abdomen pelvis with blood work which was also unremarkable Following evaluation was ordered: CBC, CMP, lipase, 12 EKG Patient was treated with morphine 4 mg IV and Zofran 4 mg IV. 01:21 My interpretation patient's laboratory evaluation as follows: Anemia with an H&H of 10 and 28.9-chronic. Platelet count low 137,000-chronic. BUN and creatinine were elevated 54 in 12.5 consistent with his chronic kidney disease. Potassium was normal at 4.8. The patient continued to complain of pain despite receiving morphine therefore he was given a 2nd dose of morphine 4 mg IV with improvement of his discomfort. Patient states his pain is not completely resolved This time I do not have a clear etiology for the patient's pain, patient will be discharged home and advised to follow-up with his PCP. Differential Diagnosis Differential Diagnoses: The differential diagnosis associated with the presentation includes Differential diagnosis includes but is not limited to gastritis, pancreatitis, musculoskeletal pain Admission/Observation Consideration of admission/observation: Escalation of care including admission/observation considered Lab Data MDM Lab Attestation statement: I reviewed the patient's lab results. 11/10/23 Unknown 11/10/23 Unknown Labs: Lab Results 11/10/23 Range/Units Unknown WBC 8.8 (4.8-10.8) X10*3/uL RBC 3.03 L (4.60-5.80) X10*6/uL Hgb 10.3 L (14.0-18.0) g/dl Hct 28.9 L (42.0-52.0) % MCV 95.4 (80.0-98.0) fL MCH 34.0 H (27.0-33.0) pg MCHC 35.6 (31.0-36.0) g/dl RDW 14.6 (11.0-16.0) % Plt Count 137 L (160-400) X10*3/uL MPV 11.9 (9.4-12.4) fL Immature Gran % (Auto) 0.5 H (0.0-0.4) % Neut % (Auto) 67.2 (45-73) % Lymph % (Auto) 20.5 (20-40) % [place] % (Auto) 4.5 (2-11) % Eos % (Auto) 6.8 H (0-4) % Baso % (Auto) 0.5 (0-2) % Lymph # (Auto) 1.8 (1.2-4.9) X10*3/uL [place] # (Auto) 0.4 (0.1-1.2) X10*3/uL Eos # (Auto) 0.6 H (0.0-0.4) X10*3/uL Baso # (Auto) 0.0 (0.0-0.2) X10*3/uL Abs Immat Gran (auto) 0.04 H (0.00-0.03) X10*3/uL Absolute Neuts (auto) 5.9 (2.0-8.3) x10*3/uL Absolute Nucleated RBC 0.000 (0.0-0.012) X10*3/uL Nucleated RBC % (auto) 0.0 (0.0-0.2) /100WBC Sodium 141 (135-145) mmol/L Potassium 4.8 (3.3-5.1) mmol/L Chloride 101 (96-108) mmol/L Carbon Dioxide 24 (22-29) mmol/L Anion Gap 21 H (12-20) BUN 54 H (9-16) mg/dL Creatinine 12.50 H* (0.5-1.4) mg/dL Estim Creat Clear Calc 7.3 Estimated GFR 4 Random Glucose 84 (60-115) mg/dL Calcium 8.3 L D (8.4-10.2) mg/dL Total Bilirubin 0.3 (0.0-1.0) mg/dL AST 22 (5-37) U/L ALT 11 (0-40) U/L Alkaline Phosphatase 108 (39-117) U/L Total Protein 8.9 H (6.5-8.0) g/dL Albumin 4.3 (3.5-5.0) g/dL Lipase 70 (8-78) U/L Independent Interpretation I performed an independent interpretation of an: EKG Interpretation: My independent interpretation of the patient's 12 EKG done at 22:54 hours is as follows: Normal sinus rhythm with a rate of 72, normal MS interval, prolonged QRS interval 168 milliseconds, normal QTC of 457 milliseconds, right bundle-branch block, no ST segment elevation, no ST segment depression, no significant T-wave abnormalities. Chronic Conditions Patient?s care impacted by: Diabetes and Other (End-stage renal disease on dialysis) Medications Administered Discontinued Medications Generic Name Dose Route Start Last Admin Trade Name Ele PRN Reason Stop Dose Admin Morphine Sulfate 4 mg 11/10/23 22:56 11/10/23 23:14 Morphine Sulfate 4 Mg/Ml Cartridge IVPUSH 11/10/23 22:57 4 mg ONCE STA Administration Protocol Morphine Sulfate 4 mg 11/11/23 00:22 11/11/23 00:26 Morphine Sulfate 4 Mg/Ml Cartridge IVPUSH 11/11/23 00:23 4 mg ONCE STA Administration Protocol Ondansetron HCl 4 mg 11/10/23 22:56 11/10/23 23:14 Ondansetron Hcl 4 Mg/2 Ml Vial IVPUSH 11/10/23 22:57 4 mg ONCE ONE Administration Discharge Plan Discharge Clinical Impression: Abdominal pain Qualifiers: Abdominal location: left upper quadrant Qualified Code(s): R10.12 - Left upper quadrant pain Patient Disposition: Home, Self-Care Instructions: Abdominal Pain (ED) Additional Instructions: Your blood work was unremarkable. You had a normal CT scan of the chest and normal CT scan of the abdomen on your previous 2 visits therefore these tests were not repeated. You were treated with morphine 4 mg IV x2 and Zofran 4 mg IV x1. At this time I do not have a clear cause for your pain. I want you to follow-up with your primary care doctor for further evaluation. Continue taking your medications as prescribed by your providers. Follow-up with your doctor in 2 days. Please return to the emergency department if your symptoms get worse or if you develop any symptoms that are concerning to you. Prescriptions: No Action doxazosin 2 mg tablet 2 mg PO DAILY Qty: 90 1RF (DME) FreeStyle Lite Strips Strip See Rx Instructions .Route Qty: 150 11RF Rx Instructions: As directed 4x DAILY torsemide 20 mg tablet 80 mg PO BID Qty: 720 1RF Rx Instructions: OVERDUE FOR FOLLOW UP APPT. PLEASE CALL TO SCHEDULE APPT FOR 2022 @ [phone] TO CONTINUE RECVING REFILLS. carvedilol 25 mg tablet 25 mg PO BID 90 Days Qty: 180 2RF Rx Instructions: OVERDUE FOR APPT. PLEASE CALL [phone] TO SCHEDULE FOLLOW UP SO WE CAN CONTINUE REFILLING THIS PRESCRIPTION. (DME) lancets [FreeStyle Lancets] 28 gauge misc See Rx Instructions .Route Qty: 100 6RF Rx Instructions: As directed nifedipine 30 mg tablet extended release 120 mg PO BEDTIME 90 Days Qty: 360 0RF Rx Instructions: Must make cardiology appt for refills losartan 50 mg tablet 50 mg PO DAILY Qty: 30 0RF Rx Instructions: Must make cardiology appt for refills Toujeo Max U-300 SoloStar 300 unit/mL (3 mL) insulin pen 50 unit subcut DAILY Qty: 6 6RF atorvastatin 80 mg tablet 80 mg PO BEDTIME Qty: 30 5RF insulin aspart U-100 [Novolog FlexPen U-100 Insulin] 100 unit/mL (3 mL) insulin pen See Rx Instructions subcut .COMPLEX Qty: 15 4RF Rx Instructions: Inject 10 units with breakfast, 24 units with lunch and 16 units with subcutaneously; (DME) lancets [TRUEplus Lancets] 33 gauge misc See Rx Instructions .ROUTE .COMPLEX Qty: 100 6RF Dose Instruction: TEST BLOOD SUGAR FOUR TIMES DAILY DIRECTED Rx Instructions: TEST BLOOD SUGAR FOUR TIMES DAILY DIRECTED (DME) pen needle, diabetic [BD Ultra-Fine Silvia Pen Needle] 32 gauge x 5/32 needle See Rx Instructions .ROUTE .MEDSUPPLY Qty: 150 11RF Rx Instructions: As directed five times a day icosapent ethyl [Vascepa] 1 gram capsule 2 g PO BID Qty: 120 6RF gabapentin 600 mg tablet 600 mg PO BEDTIME perphenazine 2 mg tablet 1 tab PO BID sertraline 100 mg tablet 2 tab PO DAILY oxcarbazepine 300 mg tablet 1 tab PO BID aspirin 81 mg tablet,delayed release (DR/EC) 1 tab PO DAILY tramadol 50 mg tablet 2 tab PO Q8H PRN (Reason: Pain) zolpidem 10 mg tablet 1 tab PO BEDTIME PRN (Reason: Insomnia) cholecalciferol (vitamin D3) 25 mcg (1,000 unit) tablet 2 tab PO DAILY albuterol sulfate [Ventolin HFA] 90 mcg/actuation HFA aerosol inhaler 2 puff PO Q4H PRN (Reason: Shortness Of Breath) metoclopramide HCl [Reglan] 10 mg tablet 10 mg PO Q6H PRN (Reason: nausea and vomiting) Qty: 14 0RF cyclobenzaprine 5 mg tablet 5 mg PO BID PRN (Reason: muscle spasm) Qty: 20 0RF (DME) blood-glucose meter [FreeStyle Lite Meter] Kit See Rx Instructions .Route Rx Instructions: As directed ergocalciferol (vitamin D2) 1,250 mcg (50,000 unit) capsule 0 mcg PO tadalafil [Cialis] 5 mg tablet 5 mg PO DAILY 90 Days Qty: 90 1RF Rx Instructions: [id number] [facility] [id number] Member [id number] isosorbide mononitrate 60 mg tablet extended release 24 hr 120 mg PO QAM Rx Instructions: Current regimen fluticasone propionate [Flovent HFA] 220 mcg/actuation HFA aerosol inhaler 2 puff inhalation BID omeprazole 20 mg capsule,delayed release(DR/EC) 20 mg PO BID 30 Days Qty: 60 0RF sucralfate 100 mg/mL suspension 10 ml PO QIDACHS 14 Days Qty: 1000 0RF
[2023-11-10 22:54] VITALS: BP 203/76; PULSE 72; RESP 18; O2SAT 97
--- NOTE | 2023-11-10 22:56 | ECG_ITS ---
Test Reason : Chest pain Blood Pressure : / mmHG Vent. Rate : 072 BPM Atrial Rate : 072 BPM P-R Int : 194 ms QRS Dur : 168 ms QT Int : 418 ms P-R-T Axes : 015 -72 017 degrees QTc Int : 457 ms Normal sinus rhythm Right bundle branch block Left anterior fascicular block Bifascicular block Minimal voltage criteria for LVH, may be normal variant ( R in aVL ) Possible Lateral infarct (cited on or before 26-JUN-2023) Abnormal ECG When compared with ECG of 28-OCT-2023 20:53, No significant change was found Referred By: Anthony Young Electronically Signed By:GUS GOOD
[2023-11-10 23:05] LABS: MANUAL DIFF FLAG NO
[2023-11-10 23:07] LABS: Basophils Percent Auto 0.5 % (0-2); Eosinophils Absolute Auto 0.6 X10*3/uL (0.0-0.4); Eosinophils Percent Auto 6.8 % (0-4); Hematocrit 28.9 % (42.0-52.0); Hemoglobin 10.3 g/dl (14.0-18.0); Imm Gran Abs Auto 0.04 X10*3/uL (0.00-0.03); Imm Gran Pct Auto 0.5 % (0.0-0.4); Lymphocytes Absolute Auto 1.8 X10*3/uL (1.2-4.9); Lymphocytes Percent Auto 20.5 % (20-40); Mean Corpuscular HGB Conc 35.6 g/dl (31.0-36.0); Mean Corpuscular Volume 95.4 fL (80.0-98.0); Mean Platelet Volume 11.9 fL (9.4-12.4); Monocytes Absolute Auto 0.4 X10*3/uL (0.1-1.2); Monocytes Percent Auto 4.5 % (2-11); Neutrophils Absolute Auto 5.9 x10*3/uL (2.0-8.3); Neutrophils Percent Auto 67.2 % (45-73); Platelet Count 137 X10*3/uL (160-400); Red Blood Count 3.03 X10*6/uL (4.60-5.80); Red Cell Distribution Width 14.6 % (11.0-16.0); White Blood Count 8.8 X10*3/uL (4.8-10.8)
[2023-11-10] MEDS: Morphine Sulfate 4 MG/ML CARTRIDGE IVPUSH (23:14)
[2023-11-10] MEDS: ondansetron HCL 4 MG/2 ML VIAL IVPUSH (23:14)
[2023-11-10 23:23] LABS: Alanine Aminotransferase 11 U/L (0-40); Albumin Level 4.3 g/dL (3.5-5.0); Alkaline Phosphatase 108 U/L (39-117); Anion Gap 21 (12-20); Aspartate Amino Transferase 22 U/L (5-37); Bilirubin Total 0.3 mg/dL (0.0-1.0); Blood Urea Nitrogen 54 mg/dL (9-16); Calcium 8.3 mg/dL (8.4-10.2); Carbon Dioxide 24 mmol/L (22-29); Chloride 101 mmol/L (96-108); Creatinine Clr Calc Pharmacy 7.3; Estimated Glomerular Filt Rate 4; Glucose Random 84 mg/dL (60-115); Lipase 70 U/L (8-78); Potassium 4.8 mmol/L (3.3-5.1); Sodium 141 mmol/L (135-145); Total Protein 8.9 g/dL (6.5-8.0)
[2023-11-11] MEDS: Morphine Sulfate 4 MG/ML CARTRIDGE IVPUSH (00:26)
[2023-11-11 00:32] VITALS: BP 189/70; PULSE 71; RESP 16; TEMP 37.1; O2SAT 97
--- NOTE | 2023-11-11 00:39 | PC.NURSE ---
PT continues to endorse 10/10 abdominal pain. Medicated per MAR with second dose of morphine. aware.
== END 2023-11-11 01:36 | disposition home or self-care (01) ==
PROVIDERS: Emergency Provider Emergency Medicine Emergency Medical Services; PCP Nurse Practitioner Primary Care
DX: R10.12 Left upper quadrant pain (principal); R10.13 Epigastric pain; R10.31 Right lower quadrant pain; R07.89 Other chest pain; M54.50 Low back pain, unspecified; R11.0 Nausea; Z79.899 Other long term (current) drug therapy
CPT/HCPCS: 36415; 80053; 83690; 85025; 93005; 96374; 96375; 96376; 99284; 99285; J2270; J2405

== ENCOUNTER → 2023-11-10 22:56 | Outpatient (BNV) | payer OTHER, SELFPAY | PROVIDERS: Emergency Provider Emergency Medicine Emergency Medical Services; PCP Nurse Practitioner Primary Care; Visit Provider Internal Medicine | DX: I45.2 Bifascicular block (principal) | CPT/HCPCS: 93010 ==

== ENCOUNTER 2023-11-28 12:30 | Outpatient (AMB) | payer OTHER, SELFPAY ==
[2023-11-28 12:54] VITALS: BP 176/80; PULSE 78; BMI 30.6
--- NOTE | 2023-11-28 12:54 | A.OFFVIS_ITS ---
Intake Vital Signs 11/28/23 12:54 Height 5 ft 9 in Weight 207 lb 7.28 oz BMI 30.6 BP 176/80 H Blood Pressure Location Rt brachial Position Sitting Pulse 78 Pulse Source Pulse Oximeter Intake Visit Reasons: f/u Type 2 DM-confirmed Intake Note: Patient presents today to follow up on D2MT. 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 Accompanied by: Self / Same As Patient Allergies No Known Allergies Allergy (Verified 11/28/23 13:04) Medication List - Last Reconciled 11/28/23 by Eliecer Bob MD albuterol sulfate 90 mcg/actuation (Ventolin HFA) 2 puffs PO Q4H PRN aspirin 1 tab PO DAILY atorvastatin 80 mg PO BEDTIME blood sugar diagnostic (FreeStyle Lite Strips) As directed 4x DAILY blood-glucose meter (FreeStyle Lite Meter kit) As directed carvedilol 25 mg PO BID 90 days cholecalciferol (vitamin D3) 2 tabs PO DAILY cyclobenzaprine 5 mg PO BID PRN doxazosin 2 mg PO DAILY ergocalciferol (vitamin D2) 0 mcg PO fluticasone propionate 220 mcg/actuation (Flovent HFA) 2 puffs inhalation BID gabapentin 600 mg PO BEDTIME icosapent ethyl (Vascepa) 2 grams (2 x 1 gram) PO BID insulin aspart U-100 (Novolog FlexPen U-100 Insulin aspart) inject 10 units with breakfast, 24 units with lunch and 16 units with dinner subcutaneously; insulin glargine U-300 conc (Toujeo Max U-300 SoloStar) 50 units (0.1667 mL) subcut DAILY isosorbide mononitrate ER 120 mg PO QAM lancets (FreeStyle Lancets) As directed lancets (TRUEplus Lancets) TEST BLOOD SUGAR FOUR TIMES DAILY DIRECTED losartan 50 mg PO DAILY metoclopramide HCl (Reglan) 10 mg PO Q6H PRN nifedipine ER 120 mg (4 x 30 mg) PO BEDTIME 90 days omeprazole 20 mg PO BID 30 days oxcarbazepine 1 tab PO BID pen needle, diabetic (BD Ultra-Fine Silvia Pen Needle) As directed five times a day perphenazine 1 tab PO BID sertraline 2 tabs PO DAILY sucralfate 10 mL PO QIDACHS 2 weeks tadalafil (Cialis) 5 mg PO DAILY 90 days torsemide 80 mg (4 x 20 mg) PO BID tramadol 2 tabs PO Q8H PRN zolpidem 1 tab PO BEDTIME PRN HPI HPI Comments History of Present Illness Details Patient is a 62-year-old male with DM type 2 diagnosed in in 1999, who presents for management of diabetes. .. . Recently had a fistula placed in left arm for possible dialysis. He is currently on hemodialysis Past medical history includes :DM2, HTN, HLD, HTG, CKD IV, sleep apnea, hx pancreatitis (2012, 2020) Micro and macrovascular complications: + retinopathy, + nephropathy, +neuropathy, Diabetes medications:, NovoLog 10-28-16 units, Toujeo max 18 units Abhishek download shows he is using the sensor 49% of the time. Average glucose is 148 with GMI i of 6.9% and variability 30.5%. 78% range with 222% hyperglycemia and 0% hypoglycemia Symptoms reported: denies tingling in legs, reports they get hot Hypoglycemia: rare . Podiatry - goes every 2 months Last sqaw optho in Jul Laboratory Tests 09/25/21 06:22 Creatinine 4.55 H* Estimated GFR 13 04/03/21 05/22/21 16:40 13:37 Creatinine 3.71 H Estimated GFR 17 Hgb A1c (Clinic) 7.4 H PFSH Medical History ESRD (end stage renal disease) on dialysis CHF exacerbation Diabetes type 2, uncontrolled Anemia HTN (hypertension) Heart failure with preserved ejection fraction CKD (chronic kidney disease) stage 4, GFR 15-29 ml/min Congestive heart failure Type 2 diabetes mellitus with unspecified complications Diastolic dysfunction Essential hypertension Hyperglycemia Hypertensive crisis Pancreatitis Chronic kidney disease, stage 4 (severe) Erectile dysfunction Depression with anxiety Proteinuria Diverticulitis Type 2 diabetes mellitus with hyperglycemia, with long-term current use of insulin Type 2 diabetes mellitus with polyneuropathy Type 2 diabetes mellitus with chronic kidney disease Hypertension Hypertriglyceridemia Diabetes mellitus with hyperglycemia, with long-term current use of insulin History of alcohol abuse Abnormal biopsy of kidney Peptic ulcer Hx of pancreatitis Anxiety Depression COPD (chronic obstructive pulmonary disease) History of headache Sleep apnea Asthma On beta doron at home Elevated cholesterol CHF (congestive heart failure) HTN (hypertension) Surgical History History of esophagogastroduodenoscopy (EGD) History of surgery Hx of right inguinal hernia repair Hx of colonoscopy Family History Mother Diabetes Social History Household Members: None Housing: House Are you a primary health and social care teacher to a significant other at home: No Do you presently have 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 Absence of acromegalic features. Neck exam reveals nl size thyroid about 15 gms. No thyroid nodules palpable. No carotid bruits present. Lungs CTA. Heart S1 S2, Reg R/R. No M/R/ G. Skin exam reveals absence of vitiligo or acanthosis nigricans. Abdominal exam reveals Soft NT/ND with NA BS. No organomegaly present. Neck Other: . Extrem Other: Visual exam of foot performed. No ulcerations or open lesions. No onchomycosis, no callouses.Pulses 2 + distally Sensation intact to monofilament exam. Vib ratory sensation sensed is intact with 128 Hz tuning fork Results Reviewed Results Reviewed: Laboratory Last Values Glucose (Clinic) 128 mg/dL (60-115) H 11/28/23 13:01 Assessment & Plan Assessment & Plan (1) Diabetes type 2, uncontrolled: Code(s): E11.65 - Type 2 diabetes mellitus with hyperglycemia Qualifiers: Glycemic state: with hypoglycemia Coma presence: without coma Qualified Code(s): E11.649 - Type 2 diabetes mellitus with hypoglycemia without coma Plan: This 62-year-old male with history of type 2 diabetes in the setting of end-stage renal disease on hemodialysis being treated with basal-bolus insulin with what appears to be excellent glycemic control and known microvascular complications namely neuropathy, end-stage renal disease and retinopathy as well as congestive heart failure. Plan is to continue current management. At this point, patient returned to the care of his primary care provider returned back to endocrinology should his HbA1c deteriorate Coding Level of Care Code Est Pt Level 4 (92448) Diagnoses Uncontrolled type 2 diabetes mellitus with hypoglycemia without coma E11.649 Glycemic state: with hypoglycemia Coma presence: without coma
[2023-11-28 13:07] LABS: Glucose, Whole Blood 128 mg/dL (60-115)
== END 2023-11-28 14:19 | disposition home or self-care (01) ==
PROVIDERS: PCP Nurse Practitioner Primary Care; Visit Provider Internal Medicine Endocrinology, Diabetes & Metabolism
DX: E11.649 Type 2 diabetes mellitus with hypoglycemia without coma (principal)
CPT/HCPCS: 99214

== ENCOUNTER → 2023-11-28 12:30 | Outpatient (BNVA) | payer OTHER, SELFPAY | PROVIDERS: PCP Nurse Practitioner Primary Care; Visit Provider Internal Medicine Endocrinology, Diabetes & Metabolism | DX: E11.65 Type 2 diabetes mellitus with hyperglycemia (principal); E11.22 Type 2 diabetes mellitus with diabetic chronic kidney disease; N18.6 End stage renal disease; E11.319 Type 2 diabetes mellitus with unspecified diabetic retinopathy without macular edema; E11.40 Type 2 diabetes mellitus with diabetic neuropathy, unspecified; Z79.4 Long term (current) use of insulin; Z99.2 Dependence on renal dialysis | CPT/HCPCS: 82947; 83036; 99212 ==

== ENCOUNTER 2024-02-06 12:29 | Outpatient (REF) | payer OTHER, SELFPAY ==
[2024-02-06 14:13] LABS: C Reactive Protein 1.68 mg/dL (< or = 0.50); Magnesium 1.8 mg/dL (1.6-2.6)
[2024-02-06 14:16] LABS: Erythrocyte Sedimentation Rate 72 MM/HR (0-15)
[2024-02-11 11:48] LABS: NT-proBNP 2905 pg/mL (<125)
== END 2024-02-06 12:30 | disposition home or self-care (01) ==
LOC: HO.HHCL 12:29
PROVIDERS: Visit Provider Nurse Practitioner Primary Care
DX: I31.39 Other pericardial effusion (noninflammatory) (principal); I31.4 Cardiac tamponade; E83.41 Hypermagnesemia
CPT/HCPCS: 36415; 83735; 83880; 85652; 86140

== ENCOUNTER → 2024-02-24 14:30 | Outpatient (REF) | payer OTHER, SELFPAY ==
--- NOTE | 2024-02-24 14:36 | CA_ITS ---
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 The calculated ejection fraction is 64% by biplane method. - There is severe septal asymmetric hypertrophy. - No obvious valvular pathology seen on this study. - There is no evidence of pericardial effusion. Findings Left Ventricle Normal left ventricular cavity size. There is mildly increased left ventricular wall thickness. The left ventricular systolic function is normal. The calculated ejection fraction is 64% by biplane method. There is no evidence of regional wall motion abnormalities. Diastolic function is normal for age. There is severe septal asymmetric hypertrophy. LV peak GLS 15.3%. Right Ventricle Normal right ventricular cavity size. There is mildly decreased right ventricular systolic function. Atria Both atria are normal in size. Aortic Valve There is a normal trileaflet aortic valve. There is no aortic valve stenosis. There is no aortic valve regurgitation. Mitral Valve The mitral valve appears normal. There is trace mitral valve regurgitation. There is no mitral valve stenosis. Pulmonic Valve The pulmonic valve is likely normal. Tricuspid Valve Normal tricuspid valve structure. There is trace tricuspid valve regurgitation. Tricuspid regurgitation envelope is inadequate for calculation of right ventricular systolic pressure. Great Vessels The asc aorta is normal in size. Venous The inferior vena cava is normal in size and collapses greater than 50% with inspiration. Pericardium/Pleural There is no evidence of pericardial effusion. Prior Study Comparison No significant change compared to prior study dated: 08/23/2021. Recommendations, Care & Conclusions No obvious valvular pathology seen on this study. Measurements 2D Linear Measurements IVSd: 1.67 0.6-0.9/0.6-1.0 cm LVIDd: 4.84 3.9-5.3/4.2-5.9 cm LVIDd Index: 2.23 2.4-3.2/2.2-3.1 cm/m2 LVIDs: 3.06 2.0-3.6 cm LVPWd: 1.05 0.7-1.1 cm LA Diam: 3.70 2.7-3.8/3.0-4.0 cm LAIDs Index: 1.71 1.5-2.3 cm/m2 LV Mass: 331.45 67-162/88-224 g LV Mass Index: 152.74 43-95/49-115 g/m2 LVOT Diam: 2.10 3.0+(-)1.3 cm 2D Systolic Function EF 4C: 65.10 >55% EF 2C: 63.10 >55% EF BiP: 64.00 >55% Mitral Valve MV Pk E: 0.67 MV PK A: 0.96 MV Decel Time: 219.00 E/A: 0.70 E'Lateral: 7.51 E'Medial: 5.00 E/E' Med: 13.40 E/E' Lat: 8.90 PHT: 64.00 MVA PHT: 3.44 Decel [place]: 3.05 Aortic Valve AoV Pk Juan Manuel: 1.41 AoV Pk Grad: 8.00 FRANDY: 3.46 LVOT LVOT Pk Juan Manuel: 1.32 LVOT Mn Juan Manuel: 0.99 LVOT VTI: 0.27 LVOT Pk Grad: 7.00 LVOT Mn Grad: 4.00 LVOT Diam: 2.10 LVOT Area: 3.46 Diastolic Function MV Pk E: 0.67 MV Pk A: 0.96 E/A: 0.70 E'Medial: 5.00 E/E' Med: 13.40 E' Laterial: 7.51 E/E' Lat: 8.90 Right Ventricle TAPSE (mm): 16.80 TVS' Juan Manuel: 9.68 Tricuspid Valve RA Press: 3.00 Great Vessels Aorta Sinus of Valsalva: 3.50 2.0-3.5 cm Ao Asc: 3.50 2.1-3.4 cm Pulmonary Valve PV Pk Juan Manuel: 1.31 Peak PV Grad: 7.00 Updated in Other Vendor System with Status of Final Basim Horne MD electronically signed on 02/24/2024 3:41:56 PM with status of Final
== END ==
LOC: HO.CARD 14:30
PROVIDERS: PCP Nurse Practitioner Primary Care; Visit Provider Nurse Practitioner Primary Care
DX: I31.39 Other pericardial effusion (noninflammatory) (principal); I31.4 Cardiac tamponade
CPT/HCPCS: 93306; 93356

== ENCOUNTER → 2024-02-24 14:36 | Outpatient (BNV) | payer OTHER, SELFPAY | PROVIDERS: PCP Nurse Practitioner Primary Care; Visit Provider Internal Medicine | DX: I42.2 Other hypertrophic cardiomyopathy (principal); I34.0 Nonrheumatic mitral (valve) insufficiency; I31.4 Cardiac tamponade | CPT/HCPCS: 93306; 93356 ==

== ENCOUNTER 2024-03-18 15:45 | Emergency (ER) | payer OTHER, SELFPAY ==
--- NOTE | ~2024-03-18 | XR_ITS ---
EXAMINATION: XR CHEST CLINICAL INFORMATION: Pain COMPARISON: Chest radiograph 10/28/[address] chest 11/07/2023 TECHNIQUE: 2 views of the chest were obtained. FINDINGS: Aside from some mild medial basilar atelectasis, no significant abnormality is noted involving the heart, lungs, mediastinum, bony thorax or soft tissues. XR/XR chest 2V IMPRESSION: Unremarkable examination.
[2024-03-18 16:10] VITALS: BP 145/61; PULSE 91; RESP 20; TEMP 36.9; O2SAT 95; BMI 30.7
--- NOTE | 2024-03-18 16:10 | ED_ITS ---
HPI - General Adult General Chief complaint: Chest Pain Stated complaint: Chest pain Time Seen by Provider: 03/18/24 23:17 Source: patient Mode of arrival: ambulatory Limitations: no limitations History of Present Illness ED Provider: Dr mcdaniel HPI narrative: Patient is 63 years old with PMH of HTN, HLD, DM, HFpEFf, CKD stage 4, Asthma/COPD, BRENDA on CPAP, Aanxiety, depression, Hx of pancreatitis having shortness and chest discomfort since yesterday 18:00 patient had dialysis today earlier denies any shortness of breath leg edema chest pain is in mid chest reproducible increases on movements Related Data Home Medications ?Medication ?Instructions ?Recorded ?Confirmed albuterol sulfate 90 mcg/actuation 2 puff PO Q4H PRN Shortness Of 12/01/21 12/18/22 aerosol inhaler (Ventolin HFA) Breath aspirin 81 mg tablet,delayed 1 tab PO DAILY 12/01/21 12/18/22 release cholecalciferol (vitamin D3) 25 2 tab PO DAILY 12/01/21 12/18/22 mcg (1,000 unit) tablet gabapentin 600 mg tablet 600 mg PO BEDTIME 12/01/21 12/18/22 oxcarbazepine 300 mg tablet 1 tab PO BID 12/01/21 12/18/22 perphenazine 2 mg tablet 1 tab PO BID 12/01/21 12/18/22 sertraline 100 mg tablet 2 tab PO DAILY 12/01/21 12/18/22 tramadol 50 mg tablet 2 tab PO Q8H PRN Pain 12/01/21 12/18/22 zolpidem 10 mg tablet 1 tab PO BEDTIME PRN Insomnia 12/01/21 12/18/22 blood-glucose meter (FreeStyle 06/20/22 12/18/22 Lite Meter kit) fluticasone propionate 220 2 puff inhalation BID 04/16/23 mcg/actuation HFA aerosol inhaler (Flovent HFA) isosorbide mononitrate 60 mg 120 mg PO QAM 04/16/23 tablet,extended release 24 hr ergocalciferol (vitamin D2) 1,250 0 mcg PO 06/04/23 mcg (50,000 unit) capsule Previous Rx's ?Medication ?Instructions ?Recorded doxazosin 2 mg tablet 2 mg PO DAILY #90 tabs 06/10/22 blood sugar diagnostic (FreeStyle #150 ea 08/17/22 Lite Strips) torsemide 20 mg tablet 80 mg (4 x 20 mg) PO BID #720 tabs 10/05/22 carvedilol 25 mg tablet 25 mg PO BID 90 days #180 tabs 10/31/22 lancets 28 gauge (FreeStyle #100 ea 10/31/22 Lancets) losartan 50 mg tablet 50 mg PO DAILY #30 tabs 12/31/22 nifedipine 30 mg tablet,extended 120 mg (4 x 30 mg) PO BEDTIME 90 12/31/22 release days #360 tabs metoclopramide HCl 10 mg tablet 10 mg PO Q6H PRN nausea and 02/13/23 (Reglan) vomiting #14 tabs omeprazole 20 mg capsule,delayed 20 mg PO BID 30 days #60 caps 04/16/23 release sucralfate 100 mg/mL oral 10 ml PO QIDACHS 2 weeks #1,000 mL 04/16/23 suspension insulin glargine U-300 conc 300 50 unit (0.1667 mL) subcut DAILY 04/25/23 unit/mL (3 mL) subcutaneous pen #6 mL (Toujeo Max U-300 SoloStar) atorvastatin 80 mg tablet 80 mg PO BEDTIME #30 tabs 06/06/23 lancets 33 gauge (TRUEplus Lancets) #100 ea 07/15/23 pen needle, diabetic 32 gauge x #150 ea 07/25/23 (BD Ultra-Fine Silvia Pen Needle) icosapent ethyl 1 gram capsule 2 g (2 x 1 gram) PO BID #120 caps 08/30/23 (Vascepa) tadalafil 5 mg tablet (Cialis) 5 mg PO DAILY 90 days #90 tabs 10/15/23 cyclobenzaprine 5 mg tablet 5 mg PO BID PRN muscle spasm #20 11/07/23 tabs insulin aspart U-100 100 unit/mL See Rx Instructions subcut 11/24/23 (3 mL) subcutaneous pen (Novolog .COMPLEX #15 mL FlexPen U-100 Insulin aspart) Allergies Allergy/AdvReac Type Severity Reaction Status Date / Time No Known Allergies Allergy Verified 03/18/24 16:13 Review of Systems 2 Review of Systems: Yes all other systems are reviewed and are negative [facility] Past Medical History Medical History ESRD (end stage renal disease) on dialysis CHF exacerbation Diabetes type 2, uncontrolled Anemia HTN (hypertension) Heart failure with preserved ejection fraction CKD (chronic kidney disease) stage 4, GFR 15-29 ml/min Congestive heart failure Type 2 diabetes mellitus with unspecified complications Diastolic dysfunction Essential hypertension Hyperglycemia Hypertensive crisis Pancreatitis Chronic kidney disease, stage 4 (severe) Erectile dysfunction Depression with anxiety Proteinuria Diverticulitis Type 2 diabetes mellitus with hyperglycemia, with long-term current use of insulin Type 2 diabetes mellitus with polyneuropathy Type 2 diabetes mellitus with chronic kidney disease Hypertension Hypertriglyceridemia Diabetes mellitus with hyperglycemia, with long-term current use of insulin History of alcohol abuse Abnormal biopsy of kidney Peptic ulcer Hx of pancreatitis Anxiety Depression COPD (chronic obstructive pulmonary disease) History of headache Sleep apnea Asthma On beta doron at home Elevated cholesterol CHF (congestive heart failure) HTN (hypertension) Surgical History History of esophagogastroduodenoscopy (EGD) History of surgery Hx of right inguinal hernia repair Hx of colonoscopy Family History Family History Mother Diabetes Social History Social History Household Members: None Housing: House Are you a primary primary care provider to a significant other at home: No Do you presently have visiting nurse or other home services: Yes ([employer]GER) Alcohol intake: never Comment: pt sleeping Patient Tobacco Use Status: Current everyday Tobacco user Tobacco use type: Cigarette Years Smoked: 30 Second Hand Smoke Exposure: Yes Advance Directives: No Advance Directives Information Provided: No Do you have a plan to hurt others: No Plan service: No Current occupational status: retired Physical Exam ED Vital Signs: Vital Signs - 24 hr 03/18/24 16:10 03/18/24 22:31 03/18/24 23:48 Temperature 98.4 F 98.3 F 98.3 F Pulse Rate 91 83 83 Respiratory Rate 20 21 H 21 H Blood Pressure 145/61 H 146/41 H 146/41 H Pulse Oximetry 95 99 99 Oxygen Delivery Method Room Air Room Air BMI result Body Mass Index 30.7 Appearance: Alert. Oriented X3. No acute distress. Eyes: PERRLA, No Nystagmus ENT: Pharynx normal. Oral Mucosa moist Neck: Normal inspection. Neck supple. CVS: Normal heart rate and rhythm. Pulses normal. Respiratory: No respiratory distress. Equal air entry bilateral, no wheezing/rales/rhonchi reproducible mid chest wall pain no pericardial rub Abdomen: Soft and nontender. Bowel sounds are present, no mass palpable, no CVA tenderness Skin: Skin warm and dry. Normal skin color. Normal skin turgor. Extremities: No lower extremity edema. No calf tenderness Neuro: Oriented X 3. No motor deficit. No sensory deficit.No cerebellar signs , cranial nerves II-XII intact Course Course Course Narrative: RME- 63-year-old male past medical history significant for chronic kidney disease, type 2 diabetes, hypertension, heart failure, GERD presents for evaluation of chest pain for the last 6 days. He reports associated shortness of breath. Plan for cardiac workup Medical Decision Making Medical Decision Making [facility] Narrative: Patient with reproducible mid chest wall pain without any ischemic changes in the EKG 2 sets of cardiac enzymes without any delta change discharge patient home advised to continue Tramadol for pain follow with PCP Differential Diagnosis Differential Diagnoses: The differential diagnosis associated with the presentation includes ACS/musculoskeletal pain/pericarditis/pericardial effusion Consult Healthcare Provider Management of the patient was discussed with: Hospitalist Lab Data [facility] Lab Attestation statement: I reviewed the patient's lab results. 03/18/24 16:19 03/18/24 16:20 Labs: Lab Results 03/18/24 03/18/24 03/18/24 Range/Units 16:19 16:20 22:39 WBC 8.5 (4.8-10.8) X10*3/uL RBC 3.29 L (4.60-5.80) X10*6/uL Hgb 11.5 L (14.0-18.0) g/dl Hct 31.3 L (42.0-52.0) % MCV 95.1 (80.0-98.0) fL MCH 35.0 H (27.0-33.0) pg MCHC 36.7 H (31.0-36.0) g/dl RDW 14.3 (11.0-16.0) % Plt Count 142 L (160-400) X10*3/uL MPV 12.1 (9.4-12.4) fL Immature Gran % (Auto) 0.4 (0.0-0.4) % Neut % (Auto) 75.8 H (45-73) % Lymph % (Auto) 15.7 L (20-40) % [place] % (Auto) 5.8 (2-11) % Eos % (Auto) 1.9 (0-4) % Baso % (Auto) 0.4 (0-2) % Lymph # (Auto) 1.3 (1.2-4.9) X10*3/uL [place] # (Auto) 0.5 (0.1-1.2) X10*3/uL Eos # (Auto) 0.2 (0.0-0.4) X10*3/uL Baso # (Auto) 0.0 (0.0-0.2) X10*3/uL Abs Immat Gran (auto) 0.03 (0.00-0.03) X10*3/uL Absolute Neuts (auto) 6.4 (2.0-8.3) x10*3/uL Absolute Nucleated RBC 0.000 (0.0-0.012) X10*3/uL Nucleated RBC % (auto) 0.0 (0.0-0.2) /100WBC PT 12.6 (11.1-13.3) SEC INR 1.0 (0.9-1.1) Sodium 140 (135-145) mmol/L Potassium 4.4 (3.3-5.1) mmol/L Chloride 94 L (96-108) mmol/L Carbon Dioxide 27 (22-29) mmol/L Anion Gap 23 H (12-20) BUN 25 H (9-16) mg/dL Creatinine 6.66 H* (0.5-1.4) mg/dL Estim Creat Clear Calc 13.6 Estimated GFR 8 Random Glucose 161 H (60-115) mg/dL Calcium 9.0 D (8.4-10.2) mg/dL Total Bilirubin 0.4 (0.0-1.0) mg/dL AST 12 (5-37) U/L ALT 9 (0-40) U/L Alkaline Phosphatase 81 (39-117) U/L Troponin I High Sens 14.8 D 17.5 (<3.5-35.0) ng/L Total Protein 9.2 H (6.5-8.0) g/dL Albumin 4.6 (3.5-5.0) g/dL Lipase 51 (8-78) U/L Influenza Type A (PCR) NEGATIVE (Negative) Influenza Type B (PCR) NEGATIVE (Negative) RSV RNA Qual (PCR) NEGATIVE (Negative) SARS-CoV-2 RNA (RT-PCR) NEGATIVE (Negative) Independent Interpretation I performed an independent interpretation of an: EKG and Plain X-Ray Interpretation: Normal sinus rhythm heart rate 88 beats per minute normal intervals red bundle- branch block left anterior fascicular block no acute ST T wave changes no change from the previous EKGs Radiology Impression Discussion of test interpretation with radiology: I have reviewed the radiologist's reading. Discharge Plan Discharge Clinical Impression: Chest pain Patient Disposition: Home, Self-Care Instructions: Chest Pain (ED) Additional Instructions: Your chest pain is unlikely from the heart, it is likely musculoskeletal Continue take Tramadol for pain Follow with your science job titles/PCP for further management Prescriptions: No Action doxazosin 2 mg tablet 2 mg PO DAILY Qty: 90 1RF (DME) FreeStyle Lite Strips Strip See Rx Instructions .Route Qty: 150 11RF Rx Instructions: As directed 4x DAILY torsemide 20 mg tablet 80 mg PO BID Qty: 720 1RF Rx Instructions: OVERDUE FOR FOLLOW UP APPT. PLEASE CALL TO SCHEDULE APPT FOR 2022 @ [phone] TO CONTINUE RECVING REFILLS. carvedilol 25 mg tablet 25 mg PO BID 90 Days Qty: 180 2RF Rx Instructions: OVERDUE FOR APPT. PLEASE CALL [phone] TO SCHEDULE FOLLOW UP SO WE CAN CONTINUE REFILLING THIS PRESCRIPTION. (DME) lancets [FreeStyle Lancets] 28 gauge misc See Rx Instructions .Route Qty: 100 6RF Rx Instructions: As directed nifedipine 30 mg tablet extended release 120 mg PO BEDTIME 90 Days Qty: 360 0RF Rx Instructions: Must make cardiology appt for refills losartan 50 mg tablet 50 mg PO DAILY Qty: 30 0RF Rx Instructions: Must make cardiology appt for refills Toujeo Max U-300 SoloStar 300 unit/mL (3 mL) insulin pen 50 unit subcut DAILY Qty: 6 6RF atorvastatin 80 mg tablet 80 mg PO BEDTIME Qty: 30 5RF (DME) lancets [TRUEplus Lancets] 33 gauge misc See Rx Instructions .ROUTE .COMPLEX Qty: 100 6RF Dose Instruction: TEST BLOOD SUGAR FOUR TIMES DAILY DIRECTED Rx Instructions: TEST BLOOD SUGAR FOUR TIMES DAILY DIRECTED (DME) pen needle, diabetic [BD Ultra-Fine Silvia Pen Needle] 32 gauge x 5/32 needle See Rx Instructions .ROUTE .MEDSUPPLY Qty: 150 11RF Rx Instructions: As directed five times a day icosapent ethyl [Vascepa] 1 gram capsule 2 g PO BID Qty: 120 6RF insulin aspart U-100 [Novolog FlexPen U-100 Insulin] 100 unit/mL (3 mL) insulin pen See Rx Instructions subcut .COMPLEX Qty: 15 4RF Rx Instructions: inject 10 units with breakfast, 24 units with lunch and 16 units with dinner subcutaneously; gabapentin 600 mg tablet 600 mg PO BEDTIME perphenazine 2 mg tablet 1 tab PO BID sertraline 100 mg tablet 2 tab PO DAILY oxcarbazepine 300 mg tablet 1 tab PO BID aspirin 81 mg tablet,delayed release (DR/EC) 1 tab PO DAILY tramadol 50 mg tablet 2 tab PO Q8H PRN (Reason: Pain) zolpidem 10 mg tablet 1 tab PO BEDTIME PRN (Reason: Insomnia) cholecalciferol (vitamin D3) 25 mcg (1,000 unit) tablet 2 tab PO DAILY albuterol sulfate [Ventolin HFA] 90 mcg/actuation HFA aerosol inhaler 2 puff PO Q4H PRN (Reason: Shortness Of Breath) metoclopramide HCl [Reglan] 10 mg tablet 10 mg PO Q6H PRN (Reason: nausea and vomiting) Qty: 14 0RF cyclobenzaprine 5 mg tablet 5 mg PO BID PRN (Reason: muscle spasm) Qty: 20 0RF (DME) blood-glucose meter [FreeStyle Lite Meter] Kit See Rx Instructions .Route Rx Instructions: As directed ergocalciferol (vitamin D2) 1,250 mcg (50,000 unit) capsule 0 mcg PO tadalafil [Cialis] 5 mg tablet 5 mg PO DAILY 90 Days Qty: 90 1RF Rx Instructions: [id number] [facility] [id number] Member [id number] isosorbide mononitrate 60 mg tablet extended release 24 hr 120 mg PO QAM Rx Instructions: Current regimen fluticasone propionate [Flovent HFA] 220 mcg/actuation HFA aerosol inhaler 2 puff inhalation BID omeprazole 20 mg capsule,delayed release(DR/EC) 20 mg PO BID 30 Days Qty: 60 0RF sucralfate 100 mg/mL suspension 10 ml PO QIDACHS 14 Days Qty: 1000 0RF Interventions: ED Discharge Assessment Last Done: 03/18/24 23:48 Discharge Date/Time: 03/18/24 23:52 Print Language: Malaysian
--- NOTE | 2024-03-18 16:11 | ECG_ITS ---
Test Reason : CHEST PAIN Blood Pressure : / mmHG Vent. Rate : 088 BPM Atrial Rate : 088 BPM P-R Int : 172 ms QRS Dur : 146 ms QT Int : 396 ms P-R-T Axes : 017 -71 044 degrees QTc Int : 479 ms Normal sinus rhythm Possible Left atrial enlargement Right bundle branch block Left anterior fascicular block Bifascicular block Minimal voltage criteria for LVH, may be normal variant ( R in aVL ) Possible Lateral infarct (cited on or before 26-JUN-2023) Abnormal ECG When compared with ECG of 10-NOV-2023 22:54, QRS duration has decreased Referred By: Cesar Roman Electronically Signed By:CHARITO DIAZ MD
--- NOTE | 2024-03-18 16:11 | MHC.EDTECH ---
PATIENT EKG WAS DELAY BECAUSE EKG MACHINE WAS IN USE .
--- NOTE | 2024-03-18 16:12 | MHC.EDTECH ---
PATIENT EKG WAS TAKEN AND WAS READ BY PROVIDER .
[2024-03-18 16:26] LABS: MANUAL DIFF FLAG NO
--- NOTE | 2024-03-18 16:52 | MHC.EDTECH ---
PATIENT BLOOD DRAWN AND SENT TO LAB ,PATIENT NOT ABLE TO GIVE URINE SAMPLE ,BECAUSE PATIENT SAID HE DOES NOT URINATE .
[2024-03-18 17:00] LABS: Hematocrit 31.3 % (42.0-52.0); Hemoglobin 11.5 g/dl (14.0-18.0); Mean Corpuscular Volume 95.1 fL (80.0-98.0); Red Blood Count 3.29 X10*6/uL (4.60-5.80); White Blood Count 8.5 X10*3/uL (4.8-10.8)
[2024-03-18 17:01] LABS: Basophils Percent Auto 0.4 % (0-2); Eosinophils Percent Auto 1.9 % (0-4); Imm Gran Abs Auto 0.03 X10*3/uL (0.00-0.03); Imm Gran Pct Auto 0.4 % (0.0-0.4); Lymphocytes Absolute Auto 1.3 X10*3/uL (1.2-4.9); Lymphocytes Percent Auto 15.7 % (20-40); Mean Corpuscular HGB Conc 36.7 g/dl (31.0-36.0); Mean Platelet Volume 12.1 fL (9.4-12.4); Monocytes Absolute Auto 0.5 X10*3/uL (0.1-1.2); Monocytes Percent Auto 5.8 % (2-11); Neutrophils Absolute Auto 6.4 x10*3/uL (2.0-8.3); Neutrophils Percent Auto 75.8 % (45-73); Platelet Count 142 X10*3/uL (160-400); Red Cell Distribution Width 14.3 % (11.0-16.0)
[2024-03-18 17:02] LABS: Eosinophils Absolute Auto 0.2 X10*3/uL (0.0-0.4)
[2024-03-18 17:29] LABS: Influenza A PCR NEGATIVE (Negative); Influenza B PCR NEGATIVE (Negative); Resp Syncy Virus RNA Qual PCR NEGATIVE (Negative); SARS COV2 PCR INHOUSE NEGATIVE (Negative)
[2024-03-18 17:45] LABS: Prothrombin Time 12.6 SEC (11.1-13.3)
[2024-03-18 17:48] LABS: Troponin-I High Sensitivity 14.8 ng/L (<3.5-35.0)
[2024-03-18 18:52] LABS: Alanine Aminotransferase 9 U/L (0-40); Albumin Level 4.6 g/dL (3.5-5.0); Alkaline Phosphatase 81 U/L (39-117); Anion Gap 23 (12-20); Aspartate Amino Transferase 12 U/L (5-37); Bilirubin Total 0.4 mg/dL (0.0-1.0); Blood Urea Nitrogen 25 mg/dL (9-16); Carbon Dioxide 27 mmol/L (22-29); Chloride 94 mmol/L (96-108); Creatinine Clr Calc Pharmacy 13.6; Estimated Glomerular Filt Rate 8; Glucose Random 161 mg/dL (60-115); Lipase 51 U/L (8-78); Potassium 4.4 mmol/L (3.3-5.1); Sodium 140 mmol/L (135-145); Total Protein 9.2 g/dL (6.5-8.0)
[2024-03-18 22:31] VITALS: BP 146/41; PULSE 83; RESP 21; TEMP 36.8; O2SAT 99
[2024-03-18 23:06] LABS: Troponin-I High Sensitivity 17.5 ng/L (<3.5-35.0)
[2024-03-18 23:48] VITALS: BP 146/41; PULSE 83; RESP 21; TEMP 36.8; O2SAT 99
== END 2024-03-18 23:52 | disposition home or self-care (01) ==
PROVIDERS: Physician Assistant; Emergency Provider Internal Medicine; PCP Nurse Practitioner Primary Care
DX: R07.89 Other chest pain (principal); R06.02 Shortness of breath; J44.9 Chronic obstructive pulmonary disease, unspecified; E11.22 Type 2 diabetes mellitus with diabetic chronic kidney disease; I13.0 Hypertensive heart and chronic kidney disease with heart failure and stage 1 through stage 4 chronic kidney disease, or unspecified chronic kidney disease; N18.4 Chronic kidney disease, stage 4 (severe); Z99.2 Dependence on renal dialysis; Z79.899 Other long term (current) drug therapy; Z03.818 Encounter for observation for suspected exposure to other biological agents ruled out
CPT/HCPCS: 0241U; 36415; 71046; 80053; 83690; 84484; 85025; 85610; 93005; 99283; 99284

== ENCOUNTER → 2024-03-18 16:11 | Outpatient (BNV) | payer OTHER, SELFPAY | PROVIDERS: Emergency Provider Internal Medicine; PCP Nurse Practitioner Primary Care; Visit Provider Internal Medicine Cardiovascular Disease | DX: I45.2 Bifascicular block (principal) | CPT/HCPCS: 93010 ==

== ENCOUNTER 2024-04-16 10:37 | Outpatient (AMB) | payer OTHER, SELFPAY ==
--- NOTE | 2024-04-16 10:45 | MHC.OFFVIS ---
Vital Signs 04/16/24 10:46 Height 5 ft 11 in Weight 214 lb 11.684 oz BMI 29.9 BP 188/60 H Blood Pressure Location Rt brachial Position Sitting Pulse 90 Pulse Source Pulse Oximeter Intake Visit Reasons: Type 2 DM/not accepting calls Intake Note: Patient present today to follow up on Type 2 Diabetes Mellitus. Last seen by Dr. Bob on 11/28/2023. 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: No Accompanied by: Self / Same As Patient Allergies No Known Allergies Allergy (Verified 04/16/24 10:50) Medication List - Last Reconciled 04/16/24 by Shona Christine MD albuterol sulfate 90 mcg/actuation (Ventolin HFA) 2 puffs PO Q4H PRN aspirin 1 tab PO DAILY atorvastatin 80 mg PO BEDTIME blood sugar diagnostic (FreeStyle Lite Strips) As directed 4x DAILY blood-glucose meter (FreeStyle Lite Meter kit) As directed carvedilol 25 mg PO BID 90 days cholecalciferol (vitamin D3) 2 tabs PO DAILY cyclobenzaprine 5 mg PO BID PRN doxazosin 2 mg PO DAILY ergocalciferol (vitamin D2) 0 mcg PO fluticasone propionate 220 mcg/actuation (Flovent HFA) 2 puffs inhalation BID gabapentin 600 mg PO BEDTIME icosapent ethyl (Vascepa) 2 grams (2 x 1 gram) PO BID insulin aspart U-100 (Novolog FlexPen U-100 Insulin aspart) inject 8 units with breakfast on non dialysis days, 18 units with lunch and 14 units with dinner everyday subcutaneously; insulin glargine U-300 conc (Toujeo Max U-300 SoloStar) 12 units (0.04 mL) subcut DAILY isosorbide mononitrate ER 120 mg PO QAM lancets (FreeStyle Lancets) As directed lancets (TRUEplus Lancets) TEST BLOOD SUGAR FOUR TIMES DAILY DIRECTED losartan 50 mg PO DAILY metoclopramide HCl (Reglan) 10 mg PO Q6H PRN nifedipine ER 120 mg (4 x 30 mg) PO BEDTIME 90 days omeprazole 20 mg PO BID 30 days oxcarbazepine 1 tab PO BID pen needle, diabetic (BD Ultra-Fine Silvia Pen Needle) As directed five times a day perphenazine 1 tab PO BID sertraline 2 tabs PO DAILY sucralfate 10 mL PO QIDACHS 2 weeks tadalafil (Cialis) 5 mg PO DAILY 90 days torsemide 80 mg (4 x 20 mg) PO BID tramadol 2 tabs PO Q8H PRN zolpidem 1 tab PO BEDTIME PRN HPI Comments Details: Patient is a 63-year-old male with DM type 2 diagnosed in in 1999, who presents for diabetic follow up Past medical history includes :DM2, CHF, HTN, HLD, HTG, ESRD on HD MWF,, sleep apnea, hx pancreatitis (2012, 2020) Micro and macrovascular complications: + retinopathy, + nephropathy, +neuropathy, PAD Diabetes medications: patient is doing NovoLog 8-18-28 units,, Toujeo 12 units (decreased from 16 two weeks ago). He did not follow the novolog decrease as planned. He is still having low BG at dialysis. This responds quickly to juice or cookies. No morning issues on non HD days. Also reports some low BG around 10 pm Abhishek download -last 14 days-GMI 6.0% usng 70% 92% target range 4% hyperglycemia and 4% (decreased from 8) hypoglycemia. No very high or very low. POC A1C 5.6% Symptoms reported: denies tingling in legs, reports they get hot. Has bilateral low leg pain with activity. Says recent ?ABIs Hypoglycemia: 4% Care team Nephrology-Dr Ritchie-at HD Cardiology-Dr Gibbs/[facility] - goes every 2 months Sees optho in 07/2023 ROS see HPI PHYSICAL EXAM: GENERAL: Alert and oriented x 3. NAD EYES: EOMI. Anicteric. HENT: Moist mucous membranes. No scleral icterus. No cervical lymphadenopathy. LUNGS: Clear to auscultation bilaterally. CARDIOVASCULAR: Regular rate and rhythm. + 2/6 murmur, palpable DP pulses bilaterally ABDOMEN: Soft, non-tender +bs EXTREMITIES: No edema. Non-tender. SKIN: No rashes or lesions. Warm. NEUROLOGIC: CN II-XII grossly intact PSYCHIATRIC: Cooperative. Appropriate mood and affect [facility] Medical History (Updated 04/16/24 @ 11:47 by Shona Christine MD) ESRD (end stage renal disease) on dialysis CHF exacerbation Diabetes type 2, uncontrolled Anemia HTN (hypertension) Heart failure with preserved ejection fraction CKD (chronic kidney disease) stage 4, GFR 15-29 ml/min Congestive heart failure Type 2 diabetes mellitus with unspecified complications Diastolic dysfunction Essential hypertension Hyperglycemia Hypertensive crisis Pancreatitis Chronic kidney disease, stage 4 (severe) Erectile dysfunction Depression with anxiety Proteinuria Diverticulitis Type 2 diabetes mellitus with hyperglycemia, with long-term current use of insulin Type 2 diabetes mellitus with polyneuropathy Type 2 diabetes mellitus with chronic kidney disease Hypertension Hypertriglyceridemia Diabetes mellitus with hyperglycemia, with long-term current use of insulin History of alcohol abuse Abnormal biopsy of kidney Peptic ulcer Hx of pancreatitis Anxiety Depression COPD (chronic obstructive pulmonary disease) History of headache Sleep apnea Asthma On beta doron at home Elevated cholesterol CHF (congestive heart failure) HTN (hypertension) Surgical History History of esophagogastroduodenoscopy (EGD) History of surgery Hx of right inguinal hernia repair Hx of colonoscopy Family History Mother Diabetes Social History Household Members: None Housing: House Are you a primary caregiver assisted living to a significant other at home: No Do you presently have visiting nurse or other home services: Yes (MANAGER PAID) Alcohol intake: never Comment: pt sleeping Patient Tobacco Use Status: Current everyday Tobacco user Tobacco use type: Cigarette Years Smoked: 30 Second Hand Smoke Exposure: Yes service: No Current occupational status: retired Physical Exam Vital Signs: Last Vital Signs Pulse 90 04/16/24 10:46 BP 188/60 H 04/16/24 10:46 BMI result Body Mass Index 29.9 Results AMB Hemoglobin A1c AMB Hemoglobin A1c 5.8 % Last Edit by DEUCE Bradley on 04/16/24 11:05 Results Reviewed Results Reviewed: Laboratory Last Values Glucose (Clinic) 153 mg/dL (60-115) H 04/16/24 10:52 Hgb A1c (Clinic) 5.8 % (4.0-6.0) 04/16/24 11:04 Assessment & Plan Assessment & Plan (1) Type 2 diabetes mellitus with hypoglycemia without coma: Code(s): E11.649 - Type 2 diabetes mellitus with hypoglycemia without coma Category: Medical Qualifiers: Diabetes mellitus care home insulin use: with care home use Qualified Code(s): E11.649 - Type 2 diabetes mellitus with hypoglycemia without coma; 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 Since starting HD was having more hypoglycemia. Saw ict educator-toujeo reduced, instructed decreased novolog though not implemented by patient. Hypoglycemic episodes reduced from 8% to 4%. Generally late evening and at HD. Toujeo-continue 12 units nightly Novolog- 8 units breakfast NON dialysis days, will do none on HD days; 18 units lunch; decrease to 14 units with dinner Follow up in 3 months or sooner prn. 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 Continues cardiology rollow up (4) ESRD (end stage renal disease) on dialysis: Code(s): N18.6 - End stage renal disease; Z99.2 - Dependence on renal dialysis Category: Medical Plan: Duran Jason. Under Dr Ritchie. (5) PAD (peripheral artery disease): Code(s): I73.9 - Peripheral vascular disease, unspecified Category: Medical Plan: continue vascular follow up (6) Erectile dysfunction associated with type 2 diabetes mellitus: Code(s): E11.69 - Type 2 diabetes mellitus with other specified complication; N52.1 - Erectile dysfunction due to diseases classified elsewhere Category: Medical Plan: stable. continue cialis (7) Thrombocytopenia: Code(s): D69.6 - Thrombocytopenia, unspecified Category: Medical Plan: Mild stable. continue f/up PCP Orders: Orders AMB Hemoglobin A1c Today E11.649 - Type 2 diabetes mellitus with hypoglycemia without coma, Z13.9 - Encounter for screening, unspecified Medications: Changed From insulin glargine U-300 conc (Toujeo Max U-300 SoloStar) 50 units (0.1667 mL) subcut DAILY 6 mL 6RF To insulin glargine U-300 conc (Toujeo Max U-300 SoloStar) 12 units (0.04 mL) subcut DAILY 6 mL 6RF From insulin aspart U-100 (Novolog FlexPen U-100 Insulin aspart) inject 10 units with breakfast, 24 units with lunch and 16 units with dinner subcutaneously; 15 mL 4RF To insulin aspart U-100 (Novolog FlexPen U-100 Insulin aspart) inject 8 units with breakfast on non dialysis days, 18 units with lunch and 14 units with dinner everyday subcutaneously; 15 mL 4RF Coding Level of Care Code Consult Moderate [id number] Diagnoses Type 2 diabetes mellitus with hypoglycemia without coma, with long-term current use of insulin E11.649; Z79.4 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
[2024-04-16 10:46] VITALS: BP 188/60; PULSE 90; BMI 29.9
[2024-04-16 10:56] LABS: Glucose, Whole Blood 153 mg/dL (60-115)
== END 2024-04-16 11:33 | disposition home or self-care (01) ==
PROVIDERS: PCP Nurse Practitioner Primary Care; Visit Provider Internal Medicine
DX: E11.649 Type 2 diabetes mellitus with hypoglycemia without coma (principal); Z79.4 Long term (current) use of insulin; I50.32 Chronic diastolic (congestive) heart failure; N18.6 End stage renal disease; Z99.2 Dependence on renal dialysis; I73.9 Peripheral vascular disease, unspecified; E11.69 Type 2 diabetes mellitus with other specified complication; N52.1 Erectile dysfunction due to diseases classified elsewhere; D69.6 Thrombocytopenia, unspecified; Z13.9 Encounter for screening, unspecified
CPT/HCPCS: 99204

== ENCOUNTER → 2024-04-16 10:37 | Outpatient (BNVA) | payer OTHER, SELFPAY | PROVIDERS: PCP Nurse Practitioner Primary Care; Visit Provider Internal Medicine | DX: E11.65 Type 2 diabetes mellitus with hyperglycemia (principal); E11.649 Type 2 diabetes mellitus with hypoglycemia without coma; E11.22 Type 2 diabetes mellitus with diabetic chronic kidney disease; E11.42 Type 2 diabetes mellitus with diabetic polyneuropathy; E11.69 Type 2 diabetes mellitus with other specified complication; I12.0 Hypertensive chronic kidney disease with stage 5 chronic kidney disease or end stage renal disease; I50.32 Chronic diastolic (congestive) heart failure; N18.6 End stage renal disease; N52.1 Erectile dysfunction due to diseases classified elsewhere; D69.6 Thrombocytopenia, unspecified; I73.9 Peripheral vascular disease, unspecified; Z79.4 Long term (current) use of insulin; Z99.2 Dependence on renal dialysis | CPT/HCPCS: 82947; 83036; 99202 ==

== ENCOUNTER 2024-05-24 07:35 | Emergency (ER) | payer OTHER, SELFPAY ==
--- NOTE | ~2024-05-24 | US_ITS ---
EXAMINATION: US VENOUS ULTRASOUND WITH DOPPLER LOWER EXTREMITY, RIGHT CLINICAL INFORMATION: pain in thigh radiating down leg, eval for dvt COMPARISON: 11/26/2021. TECHNIQUE: Ultrasound of the deep veins is performed from the hip to the calf with compression sonography and color and pulse Doppler assessment. Spectral analysis with color-flow imaging is performed. FINDINGS: There is normal venous compression and respiratory variation and augmented flow. The visualized common femoral vein, superficial femoral vein, profunda femoral vein, popliteal vein, and the trifurcation region shows no evidence of deep venous thrombosis. There is no significant popliteal fossa cyst. If the patient's symptoms persist, followup ultrasound in 5 days 7 days might be of value to exclude proximal propagation from a non-visualized calf vein. US/US venous duplex LE RT IMPRESSION: No DVT demonstrated in the right lower extremity.
--- NOTE | ~2024-05-24 | XR_ITS ---
EXAMINATION: XR FEMUR, RIGHT CLINICAL INFORMATION: Right femur pain. No injury. COMPARISON: CT abdomen pelvis dated 10/29/2023 TECHNIQUE: AP and lateral views of the right femur were obtained. FINDINGS: Mild osteoarthritis of the right hip. No fracture or malalignment. Osteophyte is also noted in the right knee. Bone mineralization appears normal. Soft tissues are unremarkable aside from the arthroscopic calcifications in the superficial femoral and popliteal arteries. XR/XR femur RT 2V IMPRESSION: Mild osteoarthritis in the right hip and knee. No acute osseous findings.
[2024-05-24 07:36] VITALS: BP 140/50; PULSE 74; RESP 16; TEMP 36; O2SAT 97; BMI 31.5
--- NOTE | 2024-05-24 09:23 | ED_ITS ---
HPI - Extremity Injury (Lower) General Chief Complaint: Extremity Injury, Lower Stated Complaint: R leg pain Time Seen by Provider: 05/24/24 09:10 Source: patient Mode of arrival: ambulatory Limitations: no limitations History of Present Illness ED Provider: Barbara Oneill APRN HPI Narrative: 63-year-old male with a medical history of hypertension, hyperlipidemia, diabetes, chronic kidney disease on hemodialysis, COPD, sleep apnea, anxiety, depression who presents to the ER with complaints of several weeks of intermittent right thigh pain which radiates down the right leg. Pain is de scribed as squeezing cramping pain which is worsened with movement but can occur at rest as well. There is no associated numbness or tingling or weakness of the extremity. There is no reports of redness or swelling or fevers or chills. No chest pain or shortness of breath. No history of injury or trauma. Patient is taking home tramadol with continued pain Related Data Home Medications ?Medication ?Instructions ?Recorded ?Confirmed albuterol sulfate 90 mcg/actuation 2 puff PO Q4H PRN Shortness Of 12/01/21 12/18/22 aerosol inhaler (Ventolin HFA) Breath aspirin 81 mg tablet,delayed 1 tab PO DAILY 12/01/21 12/18/22 release cholecalciferol (vitamin D3) 25 2 tab PO DAILY 12/01/21 12/18/22 mcg (1,000 unit) tablet gabapentin 600 mg tablet 600 mg PO BEDTIME 12/01/21 12/18/22 oxcarbazepine 300 mg tablet 1 tab PO BID 12/01/21 12/18/22 perphenazine 2 mg tablet 1 tab PO BID 12/01/21 12/18/22 sertraline 100 mg tablet 2 tab PO DAILY 12/01/21 12/18/22 tramadol 50 mg tablet 2 tab PO Q8H PRN Pain 12/01/21 12/18/22 zolpidem 10 mg tablet 1 tab PO BEDTIME PRN Insomnia 12/01/21 12/18/22 blood-glucose meter (FreeStyle 06/20/22 12/18/22 Lite Meter kit) fluticasone propionate 220 2 puff inhalation BID 04/16/23 mcg/actuation HFA aerosol inhaler (Flovent HFA) isosorbide mononitrate 60 mg 120 mg PO QAM 04/16/23 tablet,extended release 24 hr ergocalciferol (vitamin D2) 1,250 0 mcg PO 06/04/23 mcg (50,000 unit) capsule Previous Rx's ?Medication ?Instructions ?Recorded doxazosin 2 mg tablet 2 mg PO DAILY #90 tabs 04/06/22 blood sugar diagnostic (FreeStyle #150 ea 08/17/22 Lite Strips) torsemide 20 mg tablet 80 mg (4 x 20 mg) PO BID #720 tabs 10/05/22 carvedilol 25 mg tablet 25 mg PO BID 90 days #180 tabs 10/31/22 lancets 28 gauge (FreeStyle #100 ea 10/31/22 Lancets) losartan 50 mg tablet 50 mg PO DAILY #30 tabs 12/31/22 nifedipine 30 mg tablet,extended 120 mg (4 x 30 mg) PO BEDTIME 90 12/31/22 release days #360 tabs metoclopramide HCl 10 mg tablet 10 mg PO Q6H PRN nausea and 02/13/23 (Reglan) vomiting #14 tabs omeprazole 20 mg capsule,delayed 20 mg PO BID 30 days #60 caps 04/16/23 release sucralfate 100 mg/mL oral 10 ml PO QIDACHS 2 weeks #1,000 mL 04/16/23 suspension lancets 33 gauge (TRUEplus Lancets) #100 ea 07/15/23 pen needle, diabetic 32 gauge x #150 ea 07/25/23 (BD Ultra-Fine Silvia Pen Needle) tadalafil 5 mg tablet (Cialis) 5 mg PO DAILY 90 days #90 tabs 10/15/23 cyclobenzaprine 5 mg tablet 5 mg PO BID PRN muscle spasm #20 11/07/23 tabs insulin glargine U-300 conc 300 12 unit (0.04 mL) subcut DAILY #6 04/16/24 unit/mL (3 mL) subcutaneous pen mL (Toujeo Max U-300 SoloStar) insulin aspart U-100 100 unit/mL See Rx Instructions subcut 04/22/24 (3 mL) subcutaneous pen (Novolog .COMPLEX #15 mL FlexPen U-100 Insulin aspart) atorvastatin 80 mg tablet 80 mg PO BEDTIME #30 tabs 04/23/24 icosapent ethyl 1 gram capsule 2 g (2 x 1 gram) PO BID #120 caps 04/23/24 (Vascepa) cyclobenzaprine 10 mg tablet 10 mg PO TID PRN muscle spasm #9 05/24/24 tabs diclofenac sodium 1 % topical gel 4 g topical QID #100 grams 05/24/24 (Voltaren Arthritis Pain) Allergies Allergy/AdvReac Type Severity Reaction Status Date / Time No Known Allergies Allergy Verified 05/24/24 07:38 Review of Systems Review of Systems: Yes all other systems are reviewed and are negative Constitutional: Constitutional: Reports no additional constitutional complaints, Denies body ache(s), Denies chills, Denies fever(s), Denies headache(s) and Denies weakness Eyes: Eyes: Reports no additional eye complaints and Denies change in vision ENT: Reports system reviewed and no additional complaints, except as documented, Denies dizziness, Denies headache(s), Denies nasal congestion, Denies nasal discharge and Denies neck pain Cardiovascular: Cardiovascular: Reports no additional cardiovascular complaints, Denies chest pain, Denies leg edema and Denies dyspnea Respiratory: Respiratory: Reports no additional respiratory complaints, Denies cough and Denies dyspnea Gastrointestinal: Gastrointestinal: Reports no additional gastrointestinal complaints, Denies abdominal pain, Denies diarrhea, Denies nausea and Denies vomiting Genitourinary: Genitourinary: Denies urinary incontinence Musculoskeletal: Musculoskeletal: Reports no additional musculoskeletal complaints, Denies back pain, Denies arthralgias, Denies joint swelling, Denies neck pain, Denies numbness, Reports radiating pain into limb and Denies tingling Integumentary/Breasts: Skin/Breast: Reports system reviewed and no additional complaints, except as docu and Denies rash Neurologic: Reports system reviewed and no additional complaints, except as documented, Denies Abnormal speech present, Denies dizziness, Denies headache(s), Denies numbness, Denies tingling and Denies weakness PMFSH Past Medical History Attestation statement: The following information was validated with the patient. Source: old records reviewed and nursing notes reviewed Medical History ESRD (end stage renal disease) on dialysis CHF exacerbation Diabetes type 2, uncontrolled Anemia HTN (hypertension) Heart failure with preserved ejection fraction CKD (chronic kidney disease) stage 4, GFR 15-29 ml/min Congestive heart failure Type 2 diabetes mellitus with unspecified complications Diastolic dysfunction Essential hypertension Hyperglycemia Hypertensive crisis Pancreatitis Chronic kidney disease, stage 4 (severe) Erectile dysfunction Depression with anxiety Proteinuria Diverticulitis Type 2 diabetes mellitus with hyperglycemia, with long-term current use of insulin Type 2 diabetes mellitus with polyneuropathy Type 2 diabetes mellitus with chronic kidney disease Hypertension Hypertriglyceridemia Diabetes mellitus with hyperglycemia, with long-term current use of insulin History of alcohol abuse Abnormal biopsy of kidney Peptic ulcer Hx of pancreatitis Anxiety Depression COPD (chronic obstructive pulmonary disease) History of headache Sleep apnea Asthma On beta doron at home Elevated cholesterol CHF (congestive heart failure) HTN (hypertension) Surgical History History of esophagogastroduodenoscopy (EGD) History of surgery Hx of right inguinal hernia repair Hx of colonoscopy Family History Family History Mother Diabetes Social History Social History Household Members: None Housing: House Are you a primary child care team lead to a significant other at home: No Do you presently have visiting nurse or other home services: Yes ([employer]) Alcohol intake: never Comment: pt sleeping Patient Tobacco Use Status: Current everyday Tobacco user Tobacco use type: Cigarette Years Smoked: 30 Second Hand Smoke Exposure: Yes Advance Directives: No Advance Directives Information Provided: Yes Do you have a plan to hurt others: No Plan service: No Current occupational status: retired Physical Exam Vital Signs: Vital Signs: Last Vital Signs Temp 96.8 F 05/24/24 07:36 Pulse 74 05/24/24 07:36 Resp 16 05/24/24 07:36 BP 140/50 H 05/24/24 07:36 Pulse Ox 97 05/24/24 07:36 O2 Del Method Room Air 05/24/24 07:36 BMI result Body Mass Index 31.5 Const: General: cooperative, healthy appearing, comfortable and no acute distress Orientation/consciousness: patient oriented x3 Limitations: no limitations HEENT: Head: Yes normal to inspection Ears: hearing grossly normal bilaterally General nose exam: Normal external nose present Face and sinus: Yes normal facial exam Mouth: Normal oral and palatal mucosa present Throat: Yes posterior oropharynx normal Eyes: General: appearance normal, both eyes and all related structures Pupils: Equal, round and reactive pupils present Neck: Neck: Yes normal visual inspection Chest: Chest palpation & inspection: normal inspection of the chest Resp: Effort & Inspection: normal respiratory effort Auscultation: clear to auscultation bilaterally Cardio: Rate: regular rate Rhythm: regular rhythm Peripheral pulses: Peripheral pulses 2+ throughout GI: Inspection: Yes normal to inspection Palpation (GI): Soft to palpation and nontender Auscultation: normal bowel sounds Back/Spine/Pelvis: Thoracic/Lumbar Spine: thoracic and lumbar spine normal to inspection Skin: General skin exam: no rashes or lesions noted Neuro: General: patient oriented x3, no focal motor deficits and normal sensation to monofilament Cranial nerves: Yes Equal, round and reactive pupils present Cognition (Neuro): normal cognition Speech: No Abnormal speech present Gait exam (Neuro): Normal gait present Motor exam (neuro): 5/5 motor strength present throughout Extrem: Other: There is pain on palpation to the right side of the soft tissue area both anteriorly and laterally. There is also some pain diffusely through the right calf but patient reports this is chronic and unchanged. He has 2+ DP and PT pulses. Normal distal sensation. Full range of motion of the right ankle/foot/knee/hip General: Yes normal to inspection Course Course Course Narrative: Ultrasound negative for DVT. X-ray shows some arthritis. Pain seems more muscular or it may be a radiculopathy so will discharge the patient home with Flexeril and Voltaren. Recommend he continue his home tramadol and follow-up with his primary care doctor. Reviewed worrisome signs and symptoms of when to return to the emergency room. Comfortable plan for discharge home. Medical Decision Making Medical Decision Making MDM Narrative: 63-year-old male with a medical history of hypertension, hyperlipidemia, diabetes, chronic kidney disease on hemodialysis, COPD, sleep apnea, anxiety, depression who presents to the ER with complaints of several weeks of intermittent right thigh pain which radiates down the right leg. Pain is described as squeezing cramping pain which is worsened with movement but can occur at rest as well. There is no associated numbness or tingling or weakness of the extremity. There is no reports of redness or swelling or fevers or chills. No chest pain or shortness of breath. No history of injury or trauma. Patient is taking home tramadol with continued pain -atraumatic right lower extremity pain which originates in the right thigh and radiates down the right leg. Seems more consistent with more of a radiculopathy or sciatica pain. Patient has good distal CMS. He does report some history remotely of venous insufficiency and so I will obtain a ultrasound to rule out DVT. I will also obtain some baseline x-rays. Differential Diagnosis Differential Diagnoses: The differential diagnosis associated with the presentation includes Radiculopathy, sciatica, DVT No evidence of cellulitis, fracture, dislocation, vascular injury, ischemic extremity Admission/Observation Consideration of admission/observation: Escalation of care including admission/observation considered Independent Interpretation I performed an independent interpretation of an: Plain X-Ray and Ultrasound Interpretation: I independently viewed the x-ray & US and agree with the radiology report Radiology Impression Discussion of test interpretation with radiology: I have reviewed the radiologist's reading. Radiologist Impression: [address] [address] XRay Report Signed Patient: Jose D Dickens MR#: [id number] : 1960 Acct:[id number] Age/Sex: 63 / M ADM Date: 05/24/24 Loc: HO.ED Attending Dr: Ordering Physician: Barbara Wilson NP Date of Service: 05/24/24 Procedure(s): XR femur RT 2V Accession Number(s): [id number] cc: KITA YOON NP; Barbara Wilson NP~ EXAMINATION: XR FEMUR, RIGHT CLINICAL INFORMATION: Right femur pain. No injury. COMPARISON: CT abdomen pelvis dated 10/29/2023 TECHNIQUE: AP and lateral views of the right femur were obtained. FINDINGS: Mild osteoarthritis of the right hip. No fracture or malalignment. Osteophyte is also noted in the right knee. Bone mineralization appears normal. Soft tissues are unremarkable aside from the arthroscopic calcifications in the superficial femoral and popliteal arteries. XR/XR femur RT 2V IMPRESSION: Mild osteoarthritis in the right hip and knee. No acute osseous findings. [address] [address] Ultrasound Report Signed Patient: Jose D Dickens MR#: [id number] : 1960 Acct:[id number] Age/Sex: 63 / M ADM Date: 05/24/24 Loc: HO.ED Attending Dr: Ordering Physician: Barbara Wilson NP Date of Service: 05/24/24 Procedure(s): US venous duplex LE RT Accession Number(s): [id number] cc: KITA YOON NP; Barbara Wilson NP~ EXAMINATION: US VENOUS ULTRASOUND WITH DOPPLER LOWER EXTREMITY, RIGHT CLINICAL INFORMATION: pain in thigh radiating down leg, eval for dvt COMPARISON: 11/26/2021. TECHNIQUE: Ultrasound of the deep veins is performed from the hip to the calf with compression sonography and color and pulse Doppler assessment. Spectral analysis with color-flow imaging is performed. FINDINGS: There is normal venous compression and respiratory variation and augmented flow. The visualized common femoral vein, superficial femoral vein, profunda femoral vein, popliteal vein, and the trifurcation region shows no evidence of deep venous thrombosis. There is no significant popliteal fossa cyst. If the patient's symptoms persist, followup ultrasound in 5 days 7 days might be of value to exclude proximal propagation from a non-visualized calf vein. US/US venous duplex LE RT IMPRESSION: No DVT demonstrated in the right lower extremity. Discharge Plan Discharge Clinical Impression: Acute leg pain Patient Disposition: Home, Self-Care Instructions: Leg Pain (ED) Additional Instructions: Your ultrasound shows no signs of blood clots Your x-ray does show some arthritis Apply heat or ice to the area Gentle massage Follow-up with your primary care doctor for any continued symptoms Prescriptions: New diclofenac sodium [Voltaren Arthritis Pain] 1 % gel 4 g topical QID Qty: 100 0RF Rx Instructions: apply to single affected area cyclobenzaprine 10 mg tablet 10 mg PO TID PRN (Reason: muscle spasm) Qty: 9 0RF No Action doxazosin 2 mg tablet 2 mg PO DAILY Qty: 90 1RF (DME) FreeStyle Lite Strips Strip See Rx Instructions .Route Qty: 150 11RF Rx Instructions: As directed 4x DAILY torsemide 20 mg tablet 80 mg PO BID Qty: 720 1RF Rx Instructions: OVERDUE FOR FOLLOW UP APPT. PLEASE CALL TO SCHEDULE APPT FOR 2022 @ [phone] TO CONTINUE RECVING REFILLS. carvedilol 25 mg tablet 25 mg PO BID 90 Days Qty: 180 2RF Rx Instructions: OVERDUE FOR APPT. PLEASE CALL [phone] TO SCHEDULE FOLLOW UP SO WE CAN CONTINUE REFILLING THIS PRESCRIPTION. (DME) lancets [FreeStyle Lancets] 28 gauge misc See Rx Instructions .Route Qty: 100 6RF Rx Instructions: As directed nifedipine 30 mg tablet extended release 120 mg PO BEDTIME 90 Days Qty: 360 0RF Rx Instructions: Must make cardiology appt for refills losartan 50 mg tablet 50 mg PO DAILY Qty: 30 0RF Rx Instructions: Must make cardiology appt for refills (DME) lancets [TRUEplus Lancets] 33 gauge misc See Rx Instructions .ROUTE .COMPLEX Qty: 100 6RF Dose Instruction: TEST BLOOD SUGAR FOUR TIMES DAILY DIRECTED Rx Instructions: TEST BLOOD SUGAR FOUR TIMES DAILY DIRECTED (DME) pen needle, diabetic [BD Ultra-Fine Silvia Pen Needle] 32 gauge x 5/32 needle See Rx Instructions .ROUTE .MEDSUPPLY Qty: 150 11RF Rx Instructions: As directed five times a day insulin aspart U-100 [Novolog FlexPen U-100 Insulin] 100 unit/mL (3 mL) insulin pen See Rx Instructions subcut .COMPLEX Qty: 15 4RF Rx Instructions: 10 units with breakfast, 24 units with lunch and 16 units with dinner subcutaneously; icosapent ethyl [Vascepa] 1 gram capsule 2 g PO BID Qty: 120 6RF atorvastatin 80 mg tablet 80 mg PO BEDTIME Qty: 30 5RF gabapentin 600 mg tablet 600 mg PO BEDTIME perphenazine 2 mg tablet 1 tab PO BID sertraline 100 mg tablet 2 tab PO DAILY oxcarbazepine 300 mg tablet 1 tab PO BID aspirin 81 mg tablet,delayed release (DR/EC) 1 tab PO DAILY tramadol 50 mg tablet 2 tab PO Q8H PRN (Reason: Pain) zolpidem 10 mg tablet 1 tab PO BEDTIME PRN (Reason: Insomnia) cholecalciferol (vitamin D3) 25 mcg (1,000 unit) tablet 2 tab PO DAILY albuterol sulfate [Ventolin HFA] 90 mcg/actuation HFA aerosol inhaler 2 puff PO Q4H PRN (Reason: Shortness Of Breath) metoclopramide HCl [Reglan] 10 mg tablet 10 mg PO Q6H PRN (Reason: nausea and vomiting) Qty: 14 0RF cyclobenzaprine 5 mg tablet 5 mg PO BID PRN (Reason: muscle spasm) Qty: 20 0RF (DME) blood-glucose meter [FreeStyle Lite Meter] Kit See Rx Instructions .Route Rx Instructions: As directed ergocalciferol (vitamin D2) 1,250 mcg (50,000 unit) capsule 0 mcg PO tadalafil [Cialis] 5 mg tablet 5 mg PO DAILY 90 Days Qty: 90 1RF Rx Instructions: [id number] [facility] [place] [id number] Member [id number] isosorbide mononitrate 60 mg tablet extended release 24 hr 120 mg PO QAM Rx Instructions: Current regimen fluticasone propionate [Flovent HFA] 220 mcg/actuation HFA aerosol inhaler 2 puff inhalation BID omeprazole 20 mg capsule,delayed release(DR/EC) 20 mg PO BID 30 Days Qty: 60 0RF sucralfate 100 mg/mL suspension 10 ml PO QIDACHS 14 Days Qty: 1000 0RF Toujeo Max U-300 SoloStar 300 unit/mL (3 mL) insulin pen 12 unit subcut DAILY Qty: 6 6RF Referrals: Kita Yoon, [employer] [Primary Care Provider] - 1 week Print Language: Lao
--- NOTE | 2024-05-24 09:50 | PC.NURSE ---
pt having us at bedside
[2024-05-24 11:19] VITALS: BP 140/50; PULSE 74; RESP 16; TEMP 36; O2SAT 97
== END 2024-05-24 11:20 | disposition home or self-care (01) ==
PROVIDERS: Emergency Provider Emergency Medicine; PCP Nurse Practitioner Primary Care
DX: M79.604 Pain in right leg (principal); R60.0 Localized edema; F17.210 Nicotine dependence, cigarettes, uncomplicated; Z79.899 Other long term (current) drug therapy
CPT/HCPCS: 73552; 93971; 99283

== ENCOUNTER 2024-07-14 08:46 | Outpatient (AMB) | payer OTHER, SELFPAY ==
--- NOTE | 2024-07-14 08:49 | A.OFFVIS_ITS ---
Vital Signs 07/14/24 08:56 07/14/24 09:24 Height 5 ft 11 in Weight 222 lb 10.67 oz BMI 31.1 BP 102/48 L 106/50 L Blood Pressure Location Rt brachial Position Sitting Pulse 83 Pulse Source Pulse Oximeter Intake Visit Reasons: Type 2 DM/LVM Intake Note: Patient present today to follow up on Type 2 Diabetes Mellitus. Last seen by Dr. Christine on 04/16/24. Last Diabetic Eye exam: Over 1 year ago Last Podiatry Visit: approx 2 months ago Random Glucose: 183 mg/dl HgA1C: 6.1% 07/14/24 Patient Account Liaison Required: Yes Patient Account Liaison Language: Sugar Coating Hand Services: Patient Account Liaison Present Patient Account Liaison Name: John [id number] Information Interpreted: non-clinical & clinical Accompanied by: Self / Same As Patient Allergies No Known Allergies Allergy (Verified 07/14/24 08:58) HPI Comments Details: Patient is a 63-year-old male with DM type 2 diagnosed in in 1999, who presents for diabetic follow up. He last saw Dr. Christine 04/16/2024. Past medical history includes: DM2, CHF, HTN, HLD, HTG, ESRD on HD MWF, sleep apnea, hx pancreatitis (2012, 2020) Micro and macrovascular complications: + retinopathy, + nephropathy, +neuropathy, PAD Diabetes medications: Toujeo 12 units nightly, NovoLog 8 units before breakfast on non dialysis days, no NovoLog on HD days, NovoLog 18 units at lunch and 14 units before dinner. Reviewed CGM download: CGM active 85% of the time Average glucose 141 GMI 6.7% Glucose variability 34.5% Very high 3% High 13% Target range 84% Low 0% Very low 0% Patient experiencing hyperglycemic events 1-2 p.m. He eats his lunch which is usually a sandwich at 11:30 am. Hypoglycemia episodes are much improved since last changes to his regimen. He will still sometimes get a low in the high 60s around 4 pm. Diastolic BP is at his baseline. Systolic BP is lower than usual, but he denies dizziness, weakness, chest pain or shortness of breath. Patient says he has not had much to drink yet today. He has a blood pressure cuff at home, and he will recheck it later today and go to the ER if he develops symptoms of low blood pressure. Care team Nephrology-Dr Ritchie-at HD Cardiology-Dr Gibbs/[facility] - goes every 2 months ROS: Constitutional: No fevers, chills, night sweats or increased fatigue Eyes: No vision changes Respiratory: No shortness of breath Cardiovascular: No chest pain, chest pressure or chest discomfort. No palpit ations or pedal edema. Gastrointestinal: No anorexia, nausea, vomiting or diarrhea. No abdominal pain Neurologic: No headache, dizziness, syncope Hematologic/Lymphatics: No bleeding Endocrine: No cold or heat intolerance. No polyuria or polydipsia. Physical exam: Constitutional: Alert, in no distress. Head: Normocephalic. Eyes: Pupils are equal, round and reactive to light. Extraocular muscles intact. Neck: Supple, Full range of motion. No lymphadenopathy.s. Respiratory: Clear to auscultation. Cardiovascular: S1 S2 regular. No murmurs. Right foot: Warm and well perfused. No clubbing, cyanosis or edema. DP pulse 2+. Decreased vibratory sensation. Intact sensation to monofilament. No open wounds. Left foot: Warm and well perfused. No clubbing, cyanosis or edema. DP pulse 2+. Decreased vibratory sensation. Intact sensation to monofilament. No open wounds. [facility] Medical History (Updated 07/14/24 @ 09:48 by CORNELIO Sol) Type 2 diabetes, controlled, with renal manifestation ESRD (end stage renal disease) on dialysis CHF exacerbation Diabetes type 2, uncontrolled Anemia HTN (hypertension) Heart failure with preserved ejection fraction CKD (chronic kidney disease) stage 4, GFR 15-29 ml/min Congestive heart failure Type 2 diabetes mellitus with unspecified complications Diastolic dysfunction Essential hypertension Hyperglycemia Hypertensive crisis Pancreatitis Chronic kidney disease, stage 4 (severe) Erectile dysfunction Depression with anxiety Proteinuria Diverticulitis Type 2 diabetes mellitus with hyperglycemia, with long-term current use of insulin Type 2 diabetes mellitus with polyneuropathy Type 2 diabetes mellitus with chronic kidney disease Hypertension Hypertriglyceridemia Diabetes mellitus with hyperglycemia, with long-term current use of insulin History of alcohol abuse Abnormal biopsy of kidney Peptic ulcer Hx of pancreatitis Anxiety Depression COPD (chronic obstructive pulmonary disease) History of headache Sleep apnea Asthma On beta doron at home Elevated cholesterol CHF (congestive heart failure) HTN (hypertension) Surgical History History of esophagogastroduodenoscopy (EGD) History of surgery Hx of right inguinal hernia repair Hx of colonoscopy Family History Mother Diabetes Social History Household Members: None Housing: House Are you a primary care manager to a significant other at home: No Do you presently have visiting nurse or other home services: Yes (PSYCHOLOGICAL EXAMINER) Alcohol intake: never Comment: pt sleeping Patient Tobacco Use Status: Current everyday Tobacco user Tobacco use type: Cigarette Years Smoked: 30 Second Hand Smoke Exposure: Yes service: No Current occupational status: retired Physical Exam Vital Signs: Last Vital Signs Pulse 83 07/14/24 08:56 BP 106/50 L 07/14/24 09:24 BMI result Body Mass Index 31.1 Results AMB Hemoglobin A1c AMB Hemoglobin A1c 6.1 % Last Edit by DEUCE Donnelly on 07/14/24 09:12 Results Reviewed Results Reviewed: Laboratory Last Values Glucose (Clinic) 183 mg/dL (60-115) H 07/14/24 09:02 Hgb A1c (Clinic) 6.1 % (4.0-6.0) H 07/14/24 09:07 Assessment & Plan Assessment & Plan (1) Type 2 diabetes, controlled, with renal manifestation: Code(s): E11.29 - Type 2 diabetes mellitus with other diabetic kidney complication Category: Medical Qualifiers: Diabetes mellitus alf insulin use: with 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 Diabetes mellitus complication detail: with chronic kidney disease Chronic kidney disease stage: on chronic dialysis Qualified Code(s): E11.22 - Type 2 diabetes mellitus with diabetic chronic kidney disease; N18.6 - End stage renal disease; Z79.4 - joint terminal attack controller (current) use of insulin; Z99.2 - Dependence on renal dialysis (2) Essential hypertension: Code(s): I10 - Essential (primary) hypertension Category: Medical (3) ESRD (end stage renal disease) on dialysis: Code(s): N18.6 - End stage renal disease; Z99.2 - Dependence on renal dialysis Category: Medical Plan In summary this is a 63-year-old male with controlled type 2 diabetes with chronic insulin use and micro and macrovascular complications. Continue Toujeo 12 units nightly. Continue NovoLog 8 units before breakfast on non dialysis days, no NovoLog in the morning on HD days. Increase NovoLog to 20 units before lunch to combat postprandial hyperglycemia and continue 14 units before dinner. Patient will incorporate afternoon snack around 2:30-3 p.m. to prevent the occasional episodes of hypoglycemia. If he experiences more episodes of hypoglycemia he will decrease NovoLog before lunch back to 18 units. We reviewed proper treatment of hypo/hyperglycemia. See above notes in HPI regarding hypertension. Continue to follow up with all specialists as planned. Follow up in 3 months for diabetes. Orders: Orders AMB Hemoglobin A1c Today E11.649 - Type 2 diabetes mellitus with hypoglycemia without coma, Z79.4 - longterm (current) use of insulin Coding Level of Care Code Est Pt Level 5 (92155) Complex EM visit Add On G2211 Diagnoses Controlled type 2 diabetes mellitus with chronic kidney disease on chronic dialysis, with long-term current use of insulin E11.22; N18.6; Z79.4; Z99.2 Diabetes mellitus alf insulin use: with alf use Diabetes mellitus complication detail: with chronic kidney disease Chronic kidney disease stage: on chronic dialysis Essential hypertension I10 ESRD (end stage renal disease) on dialysis N18.6; Z99.2 Time Spent (min) 45 Comment Reviewing the chart, direct patient care, completing documentation
[2024-07-14 08:56] VITALS: BP 102/48; PULSE 83; BMI 31.1
[2024-07-14 09:06] LABS: Glucose, Whole Blood 183 mg/dL (60-115)
[2024-07-14 09:24] VITALS: BP 106/50
== END 2024-07-14 10:33 | disposition home or self-care (01) ==
PROVIDERS: PCP Nurse Practitioner Primary Care; Visit Provider Physician Assistant Medical
DX: E11.22 Type 2 diabetes mellitus with diabetic chronic kidney disease (principal); N18.6 End stage renal disease; Z79.4 Long term (current) use of insulin; Z99.2 Dependence on renal dialysis; I12.0 Hypertensive chronic kidney disease with stage 5 chronic kidney disease or end stage renal disease; E11.649 Type 2 diabetes mellitus with hypoglycemia without coma
CPT/HCPCS: 99215; G2211

== ENCOUNTER → 2024-07-14 08:46 | Outpatient (BNVA) | payer OTHER, SELFPAY | PROVIDERS: PCP Nurse Practitioner Primary Care; Visit Provider Physician Assistant Medical | DX: E11.22 Type 2 diabetes mellitus with diabetic chronic kidney disease (principal); I12.0 Hypertensive chronic kidney disease with stage 5 chronic kidney disease or end stage renal disease; N18.6 End stage renal disease; Z99.2 Dependence on renal dialysis; Z79.4 Long term (current) use of insulin | CPT/HCPCS: 82947; 83036; 99212 ==

== ENCOUNTER 2024-07-30 08:28 | Outpatient (REF) | payer OTHER, SELFPAY | END 2024-07-30 08:29 | disposition home or self-care (01) | LOC: HO.HHCL 08:28 | PROVIDERS: Visit Provider Emergency Medicine | DX: Z13.89 Encounter for screening for other disorder (principal) | CPT/HCPCS: 87086 ==

== ENCOUNTER 2024-11-15 09:31 | Inpatient (IN) | payer OTHER, SELFPAY ==
--- NOTE | ~2024-11-15 | XR_ITS ---
CLINICAL HISTORY: fall AP and lateral views right knee Comparison: CR/MN - KNEE RIGHT 4 VIEWS [id number] - 04/02/19 09:56 EDT Findings: No fractures, subluxations or dislocations. Small enthesophyte lateral femoral epicondyle. Joint intervals are preserved. No osteochondral lesions or loose bodies. Superior patellar retraction enthesophyte. No suprapatellar joint effusion.No prepatellar soft tissue swelling. Normal bone mineralization. Moderate calcified atherosclerotic disease. No unusual radiopaque foreign body. Impression: 1. No acute fractures or malalignment. This document has been electronically signed by: Rodolfo Baker MD on 11/15/2024 11:35:09
[2024-11-15 09:53] VITALS: BP 181/53; PULSE 75; RESP 18; TEMP 36.4; O2SAT 97; BMI 30.7
--- NOTE | 2024-11-15 14:29 | ED_ITS ---
HPI - General Adult General Chief complaint: Fall Stated complaint: fall, knee pain Time Seen by Provider: 11/15/24 14:23 Source: patient, RN notes reviewed, old records reviewed and counter former Mode of arrival: wheelchair Limitations: language barrier History of Present Illness ED Provider: Murphy HPI narrative: Patient is a 64-year-old Belarusian-speaking male with history of T2 DM, COPD, CHF, ESRD on M/W/F dialysis, anemia, HTN, PAD presenting to the emergency department with complaint of right knee pain. States that he was walking up the stairs yesterday and when he got to the last step, his leg gave out causing him to fall. Ambulates with either a cane or a walker at baseline. Unable to bear weight on right leg due to the pain. MD complaint: knee pain Onset (ago): day(s) Severity: severe Quality: aching Pain Consistency: constant Relieving factors: none Exacerbating factors: movement Associated symptoms: denies other symptoms Treatments prior to arrival: none Related Data Home Medications ?Medication ?Instructions ?Recorded ?Confirmed albuterol sulfate 90 mcg/actuation 2 puff PO Q4H PRN Shortness Of 12/01/21 12/18/22 aerosol inhaler (Ventolin HFA) Breath aspirin 81 mg tablet,delayed 1 tab PO DAILY 12/01/21 12/18/22 release cholecalciferol (vitamin D3) 25 2 tab PO DAILY 12/01/21 12/18/22 mcg (1,000 unit) tablet gabapentin 600 mg tablet 600 mg PO BEDTIME 12/01/21 12/18/22 oxcarbazepine 300 mg tablet 1 tab PO BID 12/01/21 12/18/22 perphenazine 2 mg tablet 1 tab PO BID 12/01/21 12/18/22 sertraline 100 mg tablet 2 tab PO DAILY 12/01/21 12/18/22 tramadol 50 mg tablet 2 tab PO Q8H PRN Pain 12/01/21 12/18/22 zolpidem 10 mg tablet 1 tab PO BEDTIME PRN Insomnia 12/01/21 12/18/22 blood-glucose meter (FreeStyle 06/20/22 12/18/22 Lite Meter kit) fluticasone propionate 220 2 puff inhalation BID 04/16/23 mcg/actuation HFA aerosol inhaler (Flovent HFA) isosorbide mononitrate 60 mg 120 mg PO QAM 04/16/23 tablet,extended release 24 hr ergocalciferol (vitamin D2) 1,250 0 mcg PO 06/04/23 mcg (50,000 unit) capsule Previous Rx's ?Medication ?Instructions ?Recorded doxazosin 2 mg tablet 2 mg PO DAILY #90 tabs 04/06/22 blood sugar diagnostic (FreeStyle #150 ea 08/17/22 Lite Strips) torsemide 20 mg tablet 80 mg (4 x 20 mg) PO BID #720 tabs 10/05/22 carvedilol 25 mg tablet 25 mg PO BID 90 days #180 tabs 10/31/22 lancets 28 gauge (FreeStyle #100 ea 10/31/22 Lancets) losartan 50 mg tablet 50 mg PO DAILY #30 tabs 12/31/22 nifedipine 30 mg tablet,extended 120 mg (4 x 30 mg) PO BEDTIME 90 12/31/22 release days #360 tabs metoclopramide HCl 10 mg tablet 10 mg PO Q6H PRN nausea and 02/13/23 (Reglan) vomiting #14 tabs omeprazole 20 mg capsule,delayed 20 mg PO BID 30 days #60 caps 04/16/23 release sucralfate 100 mg/mL oral 10 ml PO QIDACHS 2 weeks #1,000 mL 04/16/23 suspension lancets 33 gauge (TRUEplus Lancets) #100 ea 07/15/23 pen needle, diabetic 32 gauge x #150 ea 07/25/23 5/32 (BD Ultra-Fine Silvia Pen Needle) tadalafil 5 mg tablet (Cialis) 5 mg PO DAILY 90 days #90 tabs 10/15/23 cyclobenzaprine 5 mg tablet 5 mg PO BID PRN muscle spasm #20 11/07/23 tabs icosapent ethyl 1 gram capsule 2 g (2 x 1 gram) PO BID #120 caps 04/23/24 (Vascepa) cyclobenzaprine 10 mg tablet 10 mg PO TID PRN muscle spasm #9 05/24/24 tabs diclofenac sodium 1 % topical gel 4 g topical QID #100 grams 05/24/24 (Voltaren Arthritis Pain) insulin aspart U-100 100 unit/mL See Rx Instructions subcut 07/14/24 (3 mL) subcutaneous pen (Novolog .COMPLEX #15 mL FlexPen U-100 Insulin aspart) insulin glargine U-300 conc 300 12 unit (0.04 mL) subcut DAILY #6 07/14/24 unit/mL (3 mL) subcutaneous pen mL (Toujeo Max U-300 SoloStar) atorvastatin 80 mg tablet 80 mg PO BEDTIME #30 tabs 11/02/24 Allergies Allergy/AdvReac Type Severity Reaction Status Date / Time No Known Allergies Allergy Verified 11/15/24 09:55 Review of Systems Review of Systems: As per HPI Yes all other systems are reviewed and are negative Constitutional: Constitutional: Reports as per HPI [facility] Past Medical History Medical History (Updated 11/15/24 @ 15:14 by Altagracia Arrington NP) Type 2 diabetes, controlled, with renal manifestation ESRD (end stage renal disease) on dialysis CHF exacerbation Diabetes type 2, uncontrolled Anemia HTN (hypertension) Heart failure with preserved ejection fraction CKD (chronic kidney disease) stage 4, GFR 15-29 ml/min Congestive heart failure Type 2 diabetes mellitus with unspecified complications Diastolic dysfunction Essential hypertension Hyperglycemia Hypertensive crisis Pancreatitis Chronic kidney disease, stage 4 (severe) Erectile dysfunction Depression with anxiety Proteinuria Diverticulitis Type 2 diabetes mellitus with hyperglycemia, with long-term current use of insulin Type 2 diabetes mellitus with polyneuropathy Type 2 diabetes mellitus with chronic kidney disease Hypertension Hypertriglyceridemia Diabetes mellitus with hyperglycemia, with long-term current use of insulin History of alcohol abuse Abnormal biopsy of kidney Peptic ulcer Hx of pancreatitis Anxiety Depression COPD (chronic obstructive pulmonary disease) History of headache Sleep apnea Asthma On beta doron at home Elevated cholesterol CHF (congestive heart failure) HTN (hypertension) Surgical History History of esophagogastroduodenoscopy (EGD) History of surgery Hx of right inguinal hernia repair Hx of colonoscopy Family History Family History Mother Diabetes Social History Social History Household Members: None Housing: House Are you a primary emergency care attendant to a significant other at home: No Do you presently have visiting nurse or other home services: Yes (MANAGER ENGAGEMENT) Alcohol intake: never Comment: pt sleeping Patient Tobacco Use Status: Current everyday Tobacco user Tobacco use type: Cigarette Years Smoked: 30 Second Hand Smoke Exposure: Yes Advance Directives: No Advance Directives Information Provided: No service: No Current occupational status: retired Physical Exam ED Vital Signs: Vital Signs - 24 hr 11/15/24 09:53 11/15/24 17:47 Temperature 97.6 F 98.4 F Pulse Rate 75 78 Respiratory Rate 18 14 Blood Pressure 181/53 H 190/66 H Pulse Oximetry 97 95 Oxygen Delivery Method Room Air Room Air BMI result Body Mass Index 30.7 Vital signs have been reviewed and appear to be correct. Blood pressure elevated. Heart rate normal. Respiratory rate normal. Temperature normal. Oxygen saturation normal. Const General: cooperative, healthy appearing and no acute distress Orientation/consciousness: oriented to person, oriented to place, oriented to time and patient oriented x3 Limitations: no limitations HENMT Head: Yes normocephalic and Yes atraumatic Ears: external ears normal General nose exam: Normal external nose present Face and sinus: Yes face symmetric Mouth: oropharynx normal and moist mucous membranes Throat: Yes uvula midline Eyes Pupils: Equal, round and reactive pupils present Neck Neck: Yes normal visual inspection and Yes supple Resp Effort & Inspection: normal respiratory effort and able to speak in complete sentences Auscultation: clear to auscultation bilaterally Cardio Rate: regular rate Rhythm: regular rhythm Heart sounds: S1 normal heart sound present and S2 normal heart sound present GI Palpation (GI): Soft to palpation and nontender Auscultation: normoactive bowel sounds General: Yes no CVA tenderness Back/Spine/Pelvis Back: no CVA tenderness Skin General skin exam: elasticity normal and turgor normal Neuro General: oriented to person, oriented to place, oriented to time, patient oriented x3, moves all extremities, no focal motor deficits and CN's II-XI intact bilaterally Cranial nerves: Yes Equal, round and reactive pupils present Cognition (Neuro): normal cognition Extrem General: Yes full ROM, Yes no pedal edema and Yes no calf tenderness Right lower extremity: knee Details: normal to inspection, tenderness Location: of the medial joint line, normal ROM (passive) and knee ligament exam normal Details: valgus stress test normal and varus stress test normal; no swelling, no ecchymosis and no unusual warmth and foot Details: vascular exam Details: dorsalis pedis pulse present, posterior tibial pulse present and normal capillary refill Psych Mental Status: mental status grossly normal Affect: normal affect Thought process: Normal thought process present Medications Administered Discontinued Medications Generic Name Dose Route Start Last Admin Trade Name Ele PRN Reason Stop Dose Admin Tramadol HCl 50 mg 11/15/24 15:08 11/15/24 15:17 Tramadol Hcl 50 Mg Tablet PO 11/15/24 15:09 50 mg ONCE ONE Administration Medical Decision Making Medical Decision Making [facility] Narrative: Patient is a 64-year-old Belarusian-speaking male with history of T2 DM, COPD, CHF, ESRD on M/W/F dialysis, anemia, HTN, PAD presenting to the emergency department with complaint of right knee pain. On exam patient is awake, A+Ox3, BP elevated, VS otherwise WNL, afebrile, normal neurological exam without focal deficits, physical exam findings as above. Given reported symptoms and physical exam findings, initial differential includes but is not limited to right knee strain, sprain, fracture. Unlikely dislocation. X-ray notable for no acute fracture or malalignment, no effusion. My interpretation is in agreement with the radiologist's interpretation. Results discussed with patient all questions answered. Patient states that he feels he is unable to be safely discharged home as he lives alone and is unable to bear weight on his right leg. Will order tramadol for pain as well as PT and case management consults. Patient placed on physician observation pending these evaluations. Differential Diagnosis Differential Diagnoses: The differential diagnosis associated with the presentation includes As per [facility] Independent Interpretation I performed an independent interpretation of an: Plain X-Ray Interpretation: No acute fracture, malalignment or effusion to right knee. Radiology Impression Discussion of test interpretation with radiology: I have reviewed the radiologist's reading. Radiologist Impression: Findings: No fractures, subluxations or dislocations. Small enthesophyte lateral femoral epicondyle. Joint intervals are preserved. No osteochondral lesions or loose bodies. Superior patellar retraction enthesophyte. No suprapatellar joint effusion.No prepatellar soft tissue swelling. Normal bone mineralization. Moderate calcified atherosclerotic disease. No unusual radiopaque foreign body. Impression: 1. No acute fractures or malalignment. External Record Review External record reviewed: Inpatient record, Office record and Outpatient record Prescription Management I considered prescription management with: Pain Medication Discharge Plan Discharge Clinical Impression: Knee pain, right Patient Disposition: Still a Patient Prescriptions: No Action doxazosin 2 mg tablet 2 mg PO DAILY Qty: 90 1RF (DME) FreeStyle Lite Strips Strip See Rx Instructions .Route Qty: 150 11RF Rx Instructions: As directed 4x DAILY torsemide 20 mg tablet 80 mg PO BID Qty: 720 1RF Rx Instructions: OVERDUE FOR FOLLOW UP APPT. PLEASE CALL TO SCHEDULE APPT FOR 2022 @ [phone] TO CONTINUE RECVING REFILLS. carvedilol 25 mg tablet 25 mg PO BID 90 Days Qty: 180 2RF Rx Instructions: OVERDUE FOR APPT. PLEASE CALL [phone] TO SCHEDULE FOLLOW UP SO WE CAN CONTINUE REFILLING THIS PRESCRIPTION. (DME) lancets [FreeStyle Lancets] 28 gauge misc See Rx Instructions .Route Qty: 100 6RF Rx Instructions: As directed nifedipine 30 mg tablet extended release 120 mg PO BEDTIME 90 Days Qty: 360 0RF Rx Instructions: Must make cardiology appt for refills losartan 50 mg tablet 50 mg PO DAILY Qty: 30 0RF Rx Instructions: Must make cardiology appt for refills (DME) lancets [TRUEplus Lancets] 33 gauge misc See Rx Instructions .ROUTE .COMPLEX Qty: 100 6RF Dose Instruction: TEST BLOOD SUGAR FOUR TIMES DAILY DIRECTED Rx Instructions: TEST BLOOD SUGAR FOUR TIMES DAILY DIRECTED (DME) pen needle, diabetic [BD Ultra-Fine Silvia Pen Needle] 32 gauge x 5/32 needle See Rx Instructions .ROUTE .MEDSUPPLY Qty: 150 11RF Rx Instructions: As directed five times a day icosapent ethyl [Vascepa] 1 gram capsule 2 g PO BID Qty: 120 6RF atorvastatin 80 mg tablet 80 mg PO BEDTIME Qty: 30 5RF gabapentin 600 mg tablet 600 mg PO BEDTIME perphenazine 2 mg tablet 1 tab PO BID sertraline 100 mg tablet 2 tab PO DAILY oxcarbazepine 300 mg tablet 1 tab PO BID aspirin 81 mg tablet,delayed release (DR/EC) 1 tab PO DAILY tramadol 50 mg tablet 2 tab PO Q8H PRN (Reason: Pain) zolpidem 10 mg tablet 1 tab PO BEDTIME PRN (Reason: Insomnia) cholecalciferol (vitamin D3) 25 mcg (1,000 unit) tablet 2 tab PO DAILY albuterol sulfate [Ventolin HFA] 90 mcg/actuation HFA aerosol inhaler 2 puff PO Q4H PRN (Reason: Shortness Of Breath) diclofenac sodium [Voltaren Arthritis Pain] 1 % gel 4 g topical QID Qty: 100 0RF Rx Instructions: apply to single affected area cyclobenzaprine 10 mg tablet 10 mg PO TID PRN (Reason: muscle spasm) Qty: 9 0RF metoclopramide HCl [Reglan] 10 mg tablet 10 mg PO Q6H PRN (Reason: nausea and vomiting) Qty: 14 0RF cyclobenzaprine 5 mg tablet 5 mg PO BID PRN (Reason: muscle spasm) Qty: 20 0RF (DME) blood-glucose meter [FreeStyle Lite Meter] Kit See Rx Instructions .Route Rx Instructions: As directed ergocalciferol (vitamin D2) 1,250 mcg (50,000 unit) capsule 0 mcg PO tadalafil [Cialis] 5 mg tablet 5 mg PO DAILY 90 Days Qty: 90 1RF Rx Instructions: [id number] [facility] [id number] Member [id number] insulin aspart U-100 [Novolog FlexPen U-100 Insulin] 100 unit/mL (3 mL) insulin pen See Rx Instructions subcut .COMPLEX Qty: 15 4RF Rx Instructions: 8 units with breakfast on non-dialysis days, 20 units with lunch and 14 units with dinner subcutaneously; Toujeo Max U-300 SoloStar 300 unit/mL (3 mL) insulin pen 12 unit subcut DAILY Qty: 6 6RF isosorbide mononitrate 60 mg tablet extended release 24 hr 120 mg PO QAM Rx Instructions: Current regimen fluticasone propionate [Flovent HFA] 220 mcg/actuation HFA aerosol inhaler 2 puff inhalation BID omeprazole 20 mg capsule,delayed release(DR/EC) 20 mg PO BID 30 Days Qty: 60 0RF sucralfate 100 mg/mL suspension 10 ml PO QIDACHS 14 Days Qty: 1000 0RF Print Language: Belarusian
[2024-11-15] MEDS: traMADoL HCL 50 MG TABLET PO (15:17)
--- NOTE | 2024-11-15 15:32 | MHC.CM.PN ---
CM RECEIVED ED CM CONSULT. CM MET WITH PT/UNIFORMS SALES REPRESENTATIVE AT BEDSIDE IN ED. PT LIVES ALONE AND IS FUNCTIONALLY INDEPENDENT WITH CANE AT BASELINE. PT HAS STAIRS AT HOME HE MUST NAVIGATE. PT ATTENDS HD AT [facility] AND HAS TRANSPORT BOOKED THROUGH [employer]. PT DECLINES COMPLETING A HCP AT THIS TIME BUT IS AWARE WILL NEED TO COMPLETE ONE SHOULD STR BE RECOMMENDED. PT WILL CONSIDER WHO HE WOULD LIKE TO NAME. PCP DR. KITA YOON. DP: PT IS AGREEABLE TO BE SEEN BY P.T. IN THE AM TO DETERMINE DC NEEDS. CM WILL CONTINUE TO FOLLOW.
[2024-11-15 17:47] VITALS: BP 190/66; PULSE 78; RESP 14; TEMP 36.9; O2SAT 95
--- NOTE | 2024-11-16 02:37 | PC.NURSE ---
Took over care from nurse Spring at 23:00, pt was oob with assist, pt unable to bear weight on knee at that time, pt currently is sleeping with no sign of distress.
--- NOTE | 2024-11-16 04:15 | PC.NURSE ---
pt is sleeping at this time, no sign of distress.
[2024-11-16 05:40] VITALS: BP 213/92; PULSE 72; RESP 18; TEMP 36.7; O2SAT 99
[2024-11-16 06:12] VITALS: BP 213/92; BP 231/92; PULSE 72
[2024-11-16] MEDS: Losartan Potassium 50 MG TABLET PO (06:12)
[2024-11-16] MEDS: carvediloL 25 MG TABLET PO ×2 (06:12→20:33)
[2024-11-16] MEDS: Acetaminophen 325 MG TABLET 650 MG PO (06:12)
--- NOTE | 2024-11-16 06:14 | PC.NURSE ---
per Dr. Wong verbal order for blood pressure medical.
--- NOTE | 2024-11-16 06:16 | PC.NURSE ---
Called our pharmacy to complete med rec. will come up later this morning.
[2024-11-16 11:19] LABS: MANUAL DIFF FLAG NO
[2024-11-16 11:31] LABS: Basophils Percent Auto 0.3 % (0-2); Eosinophils Absolute Auto 0.2 X10*3/uL (0.0-0.4); Eosinophils Percent Auto 2.6 % (0-4); Hematocrit 27.8 % (42.0-52.0); Hemoglobin 10.2 g/dl (14.0-18.0); Imm Gran Abs Auto 0.03 X10*3/uL (0.00-0.03); Imm Gran Pct Auto 0.4 % (0.0-0.4); Lymphocytes Absolute Auto 1.3 X10*3/uL (1.2-4.9); Lymphocytes Percent Auto 19.1 % (20-40); Mean Corpuscular HGB Conc 36.7 g/dl (31.0-36.0); Mean Corpuscular Hemoglobin 35.5 pg (27.0-33.0); Mean Corpuscular Volume 96.9 fL (80.0-98.0); Mean Platelet Volume 12.5 fL (9.4-12.4); Monocytes Absolute Auto 0.4 X10*3/uL (0.1-1.2); Monocytes Percent Auto 5.1 % (2-11); Neutrophils Percent Auto 72.5 % (45-73); Platelet Count 107 X10*3/uL (160-400); Red Blood Count 2.87 X10*6/uL (4.60-5.80); Red Cell Distribution Width 13.4 % (11.0-16.0); White Blood Count 6.9 X10*3/uL (4.8-10.8)
[2024-11-16 11:44] LABS: Alanine Aminotransferase 20 U/L (0-40); Albumin Level 3.9 g/dL (3.5-5.0); Alkaline Phosphatase 79 U/L (39-117); Anion Gap 22 (12-20); Aspartate Amino Transferase 17 U/L (5-37); Bilirubin Total 0.4 mg/dL (0.0-1.0); Blood Urea Nitrogen 53 mg/dL (9-16); Carbon Dioxide 28 mmol/L (22-29); Chloride 96 mmol/L (96-108); Creatinine Clr Calc Pharmacy 7.1; Estimated Glomerular Filt Rate 4; Glucose Random 171 mg/dL (60-115); Potassium 5.9 mmol/L (3.3-5.1); Sodium 140 mmol/L (135-145); Total Protein 7.9 g/dL (6.5-8.0)
[2024-11-16 12:00] VITALS: BP 180/90; PULSE 75; RESP 16; O2SAT 95
--- NOTE | 2024-11-16 12:05 | ECG_ITS ---
Test Reason : ELEVATED K Blood Pressure : */* mmHG Vent. Rate : 62 BPM Atrial Rate : 63 BPM P-R Int : 202 ms QRS Dur : 162 ms QT Int : 466 ms P-R-T Axes : 36 -66 0 degrees QTcB Int : 472 ms Normal sinus rhythm Right bundle branch block Left anterior fascicular block Bifascicular block Minimal voltage criteria for LVH, may be normal variant ( R in aVL ) Lateral infarct (cited on or before 26-Jun-2023) Abnormal ECG When compared with ECG of 18-Mar-2024 16:03, T wave inversion now evident in Inferior leads Referred By: Kavita De La Vega Electronically Signed By: CHARITO DIAZ MD
--- NOTE | 2024-11-16 12:06 | PC.NURSE ---
Assumed care of this patient at this time. Patient endorses 5/10 knee pain. Labs returned with elevated creatinine and K. Provider Kavita made aware. EKG ordered, Kavita to reach out to nephro regarding dialysis need.
--- NOTE | 2024-11-16 12:08 | MHC.CM.PN ---
Addendum entered by Caitlyn Thompson 11/16/24 14:00: CM INFORMED PT WILL BE ADMITTED CM ATTEMPTED TO CONTACT PTS DAUGHTER, SHERI [phone] HOWEVER IT WAS A WRONG NUMBER. CM ATTEMPTED TO CONTACT PTS DAUGHTER, ROCKY [phone], HOWEVER THERE WAS NO ANSWER AND ONLY A GENERIC VM CM WILL ATTEMPT TO CONTACT HER AT A LATER TIME Original Note: CM MET WITH PT AND DAUGHTER AT BEDSIDE THEY ARE AWARE STR WAS RECOMMENDED, HOWEVER DAUGHTER REPORTS SHE WORKS IN A SNF AND WOULD PREFER TO TAKE PT HOME PT WAS SUPPOSED TO HAVE HD AT [facility] AT 0530 HOURS THIS MORNING CM CALLED [facility] AND SPOKE TO TRISTIAN WHO REPORTS THERE ARE NO SPOTS OPEN THE REST OF TODAY OR TOMORROW TO FIT PT IN MESSAGE RELAYED TO PROVIDER
[2024-11-16 12:39] VITALS: BP 204/84; PULSE 68; RESP 16; TEMP 36.4; O2SAT 98
[2024-11-16 12:45] LABS: B Type Natriuretic Peptide 827 pg/mL (<100)
--- NOTE | 2024-11-16 14:03 | PM.IMHP ---
History of Present Illness Date of Service: 11/16/24 Chief Complaint: Acute right knee pain 64-year-old male with PMH of HTN, HLD, DM, HFpEFf, Asthma/COPD, BRENDA on CPAP, Anxiety, depression, Hx of pancreatitis , end-stage renal disease on hemodialysis Wednesdays and Saturday presented to the hospital With complain of acute right pain according to patient he was walking up the stairs 2 days ago on Saturday when he got to the last step his leg gave out causing him to fall, since then patient is unable to bear weight on right leg due to acute pain in the emergency room x-ray of right knee showed no acute fracture patient was evaluated by Physical therapy and they recommending short-term rehab , today patient was noted to have significantly elevated blood pressure and is due for hemodialysis today, therefore patient is being admitted to [facility] for acute hemodialysis and better blood pressure control labs showed elevated potassium 5.9 creatinine 12.48, blood sugar 171, BNP 827 and blood pressure 204/84, at present patient denies nausea, no vomiting, no headache, no dizziness, no fevers, no chills complaining of persistent right knee pain with limited range of motion and ambulation. Review of Systems Review of Systems: General no headache no dizziness no fever chills. CVS no chest pain, no palpitation. Respiratory no cough no sob Gastrointestinal no nausea no vomiting, no abdominal pain no urgency, no frequency Musculoskeletal knee pain All other system reviewed and are negative. [facility] Medical History Type 2 diabetes, controlled, with renal manifestation ESRD (end stage renal disease) on dialysis CHF exacerbation Diabetes type 2, uncontrolled Anemia HTN (hypertension) Heart failure with preserved ejection fraction CKD (chronic kidney disease) stage 4, GFR 15-29 ml/min Congestive heart failure Type 2 diabetes mellitus with unspecified complications Diastolic dysfunction Essential hypertension Hyperglycemia Hypertensive crisis Pancreatitis Chronic kidney disease, stage 4 (severe) Erectile dysfunction Depression with anxiety Proteinuria Diverticulitis Type 2 diabetes mellitus with hyperglycemia, with long-term current use of insulin Type 2 diabetes mellitus with polyneuropathy Type 2 diabetes mellitus with chronic kidney disease Hypertension Hypertriglyceridemia Diabetes mellitus with hyperglycemia, with long-term current use of insulin History of alcohol abuse Abnormal biopsy of kidney Peptic ulcer Hx of pancreatitis Anxiety Depression COPD (chronic obstructive pulmonary disease) History of headache Sleep apnea Asthma On beta doron at home Elevated cholesterol CHF (congestive heart failure) HTN (hypertension) Family History Mother Diabetes Surgical History History of esophagogastroduodenoscopy (EGD) History of surgery Hx of right inguinal hernia repair Hx of colonoscopy Social History Household Members: None Housing: Apartment Are you a primary health care sanitary technician to a significant other at home: No Do you presently have visiting nurse or other home services: Yes ([employer]) Alcohol intake: never Comment: pt sleeping Patient Tobacco Use Status: Never used Tobacco Tobacco use type: Cigarette Years Smoked: 30 Smoked in Last 30 Days: No Second Hand Smoke Exposure: Yes Use of substances other than those prescribed or required for medical reasons: No Have you been hit, kicked, punched, or otherwise hurt by someone within the past year? If so, by whom?: No Are you made to feel afraid or neglected: No Advance Directives: No Advance Directives Information Provided: No Do you have a plan to hurt others: No Plan Recently lost weight without trying: No Nutrition Risks: No Nutritional Risk service: No Current occupational status: retired [employer] Allergies Allergy/AdvReac Type Severity Reaction Status Date / Time No Known Allergies Allergy Verified 11/15/24 09:55 Active Medications: Current Medications Acetaminophen (Acetaminophen 325 Mg Tablet) 650 mg PO Q6H PRN PRN Reason: Pain, Mild 1-3,fever,headache Albuterol Sulfate (Albuterol Sulfate 90 Mcg 8 Gm Inhaler) 2 puff INHALE Q4H PRN PRN Reason: Shortness Of Breath Aspirin (Aspirin Enteric Coated 81 Mg Tablet.Dr) 81 mg PO DAILY [facility] Atorvastatin Calcium (Atorvastatin Calcium 80 Mg Tablet) 80 mg PO BEDTIME [facility] Calcium Carbonate (Calcium Carbonate 750 Mg Tab.Chew) 750 mg PO Q4H PRN PRN Reason: Heartburn Carvedilol (Carvedilol 25 Mg Tablet) 25 mg PO BID [facility]; Protocol Cyclobenzaprine HCl (Cyclobenzaprine Hcl 10 Mg Tablet) 10 mg PO TID PRN PRN Reason: muscle spasm Cyclobenzaprine HCl (Cyclobenzaprine Hcl 5 Mg Tablet) 5 mg PO BID PRN PRN Reason: muscle spasm Doxazosin Mesylate (Doxazosin Mesylate 2 Mg Tablet) 2 mg PO DAILY [facility]; Protocol Gabapentin (Gabapentin 300 Mg Capsule) 300 mg PO BEDTIME [facility] Heparin Sodium (Porcine) (Heparin Sodium,Porcine 5,000 Unit/Ml Vial) 5,000 unit SUBCUT Q12H [facility] Isosorbide Mononitrate (Isosorbide Mononitrate 60 Mg Tab.Er.24h) 120 mg PO QAM [facility]; Protocol Losartan Potassium (Losartan Potassium 50 Mg Tablet) 50 mg PO DAILY [facility]; Protocol Magnesium Hydroxide (Milk Of Magnesia 30 Ml Oral.Susp) 30 ml PO DAILY PRN PRN Reason: Constipation Melatonin (Melatonin 3 Mg Tablet) 6 mg PO BEDTIME PRN PRN Reason: Insomnia Metoclopramide HCl (Metoclopramide Hcl 10 Mg Tablet) 10 mg PO Q6H PRN PRN Reason: nausea and vomiting Non-Formulary Medication (Nifedipine) 120 mg PO BEDTIME [facility] Non-Formulary Medication (Fluticasone Propionate [Flovent Hfa]) 2 puff INHALE BID [facility] Non-Formulary Medication (Insulin Glargine U-300 Conc [Toujeo Max U-300 Solostar]) 12 unit SUBCUT DAILY [facility] Omeprazole (Omeprazole 20 Mg Capsule.Dr) 20 mg PO BID [facility] Ondansetron HCl (Ondansetron Hcl 4 Mg/2 Ml Vial) 4 mg IVPUSH Q8H PRN PRN Reason: Nausea and Vomiting Oxcarbazepine (Oxcarbazepine 300 Mg Tablet) 300 mg PO BID [facility] Perphenazine (Perphenazine 2 Mg Tablet) 2 mg PO BID [facility] Sertraline HCl (Sertraline Hcl 100 Mg Tablet) 200 mg PO DAILY [facility] Sodium Chloride (0.9 % Sodium Chloride Flush 3 Ml Syringe) 3 ml IVFLUSH QSHIFT [facility] Sucralfate (Sucralfate Oral Suspension 1 Gm/10 Ml Oral.Susp) gm PO QIDACHS [facility] Torsemide (Torsemide 20 Mg Tablet) 80 mg PO BID [facility]; Protocol Vitamin D (Cholecalciferol (Vitamin D3) 25 Mcg Tablet) 50 mcg PO DAILY [facility] Home Medications ?Medication ?Instructions ?Recorded ?Confirmed ?Last Taken ?Type albuterol sulfate 90 mcg/actuation 2 puff PO Q4H PRN Shortness Of 12/01/21 11/16/24 Unknown History aerosol inhaler (Ventolin HFA) Breath aspirin 81 mg tablet,delayed 1 tab PO DAILY 12/01/21 11/16/24 12/01/21 History release cholecalciferol (vitamin D3) 25 2 tab PO DAILY 12/01/21 11/16/24 12/01/21 History mcg (1,000 unit) tablet gabapentin 600 mg tablet 300 mg PO BEDTIME 12/01/21 11/16/24 11/30/21 History oxcarbazepine 300 mg tablet 1 tab PO BID 12/01/21 11/16/24 12/01/21 History perphenazine 2 mg tablet 1 tab PO BID 12/01/21 11/16/24 11/30/21 History sertraline 100 mg tablet 2 tab PO DAILY 12/01/21 11/16/24 11/30/21 History tramadol 50 mg tablet 2 tab PO Q8H PRN Pain 12/01/21 11/16/24 Unknown History zolpidem 10 mg tablet 1 tab PO BEDTIME PRN Insomnia 12/01/21 11/16/24 Unknown History blood-glucose meter (FreeStyle 06/20/22 12/18/22 Unknown History Lite Meter kit) isosorbide mononitrate 60 mg 120 mg PO QAM 04/16/23 11/16/24 Unknown History tablet,extended release 24 hr fluticasone furoate 200 1 inh inhalation DAILY 11/16/24 11/16/24 Unknown History mcg/actuation blister powder for inhalation (Arnuity Ellipta) Physical Exam Vital Signs and Narrative: Vital Signs: Last Vital Signs Temp 97.5 F 11/16/24 12:39 Pulse 68 11/16/24 12:39 Resp 16 11/16/24 12:39 BP 204/84 H 11/16/24 12:39 Pulse Ox 98 11/16/24 12:39 O2 Del Method Room Air 11/16/24 12:39 BMI result Body Mass Index 30.7 Const: Other: General awake alert x3 resting comfortably in no acute distress. Anicteric sclera Neck no JVD. CVS regular rate rhythm, Respiratory lungs clear to auscultation, no respiratory distress, no wheeze, no rhonchi. Gastrointestinal abdomen soft, non tender, bowel sounds audible, no guarding , no rigidity. Extremities no edema. Right knee, no swelling, no warmth, no bruising, limited range of motion, unable to flex, tender to palpation Neuro non focal Skin no rash Appropriate affect Results Labs 11/16/24 11:13 11/17/24 04:58 Labs: Laboratory Results - last 24 hr 11/16/24 11:13 MCV 96.9 MCH 35.5 H MCHC 36.7 H RDW 13.4 Plt Count 107 L MPV 12.5 H Immature Gran % (Auto) 0.4 Neut % (Auto) 72.5 Lymph % (Auto) 19.1 L Tompkins % (Auto) 5.1 Eos % (Auto) 2.6 Baso % (Auto) 0.3 Lymph # (Auto) 1.3 Tompkins # (Auto) 0.4 Eos # (Auto) 0.2 Baso # (Auto) 0.0 Abs Immat Gran (auto) 0.03 Absolute Neuts (auto) 5.0 Absolute Nucleated RBC 0.000 Nucleated RBC % (auto) 0.0 Anion Gap 22 H Estim Creat Clear Calc 7.1 Estimated GFR 4 Random Glucose 171 H Calcium 8.0 L D Magnesium 2.0 Total Bilirubin 0.4 AST 17 ALT 20 Alkaline Phosphatase 79 B-Natriuretic Peptide 827 H Total Protein 7.9 Albumin 3.9 Assessment and Plan (1) Hyperkalemia: Status: Acute (2) Knee pain, right: Status: Acute (3) Type 2 diabetes, controlled, with renal manifestation: Qualifiers: Diabetes mellitus skilled nursing insulin use: with skilled nursing use Diabetes mellitus complication detail: with chronic kidney disease Chronic kidney disease stage: on chronic dialysis Qualified Code(s): E11.22 - Type 2 diabetes mellitus with diabetic chronic kidney disease; N18.6 - End stage renal disease; 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 # acute right knee pain after fall Significant tenderness to palpation and with movement, x-ray unremarkable due to persistent acute pain will consult Orthopedic surgery Oxycodone/Tylenol for pain control Further workup as per ortho PT recommend short-term rehab # ESRD - spoke with Nephrology will undergo hemodialysis today # acute hyperkalemia scheduled for hemodialysis follow labs # HTN - uncontrolled blood pressure likely due to pain and missing home meds in last 24 hours, resumed home regimen of Imdur, carvedilol, hydralazine, nifedipine, and doxazosin and follow BP # PAD - continue ASA, atorvastatin # HLD - continue atorvastatin # COPD no acute exacerbation continue home meds # GERD continue Carafate and PPI # DM2 - diabetic diet, Toujeo insulin 12 units daily , add insulin sliding scale follow point of care blood sugar closely # neuropathy - continue gabapentin # mood disorder - continue oxcarbazepine, perphenazine, sertraline # BRENDA cpap # VTE ppx with subcu heparin # dispo short-term rehab Quality Stroke Does the patient have a stroke diagnosis?: No VTE Prior VTE?: No VTE Risk Level:: Medical - moderate - high VTE Device Contraindication: Treatment Not Indicated VTE Drug Contraindication: N/A - Med Ordered
--- NOTE | 2024-11-16 14:07 | P.CONNP_ITS ---
History of Present Illness Reason for Consult Consult date: 11/16/24 Reason for consult: End stage renal disease Chief Complaint Chief complaint: acute right knee pain/uncontrolled blood pressure History of Present Illness Narrative: 64-year-old male with PMH of HTN, HLD, DM, HFpEFf, Asthma/COPD, BRENDA on CPAP, Anxiety, depression, Hx of pancreatitis , end-stage renal disease on hemodialysis Wednesdays and Saturday presented to the hospital Review of Systems Constitutional: Denies fever(s) and Denies weight loss Cardiovascular: Denies chest pain Respiratory: Denies cough and Denies hemoptysis Gastrointestinal: Denies abdominal pain, Denies diarrhea and Denies nausea Musculoskeletal: Denies back pain Denies focal weakness PMFSH Past Medical History Medical History Type 2 diabetes, controlled, with renal manifestation ESRD (end stage renal disease) on dialysis CHF exacerbation Diabetes type 2, uncontrolled Anemia HTN (hypertension) Heart failure with preserved ejection fraction CKD (chronic kidney disease) stage 4, GFR 15-29 ml/min Congestive heart failure Type 2 diabetes mellitus with unspecified complications Diastolic dysfunction Essential hypertension Hyperglycemia Hypertensive crisis Pancreatitis Chronic kidney disease, stage 4 (severe) Erectile dysfunction Depression with anxiety Proteinuria Diverticulitis Type 2 diabetes mellitus with hyperglycemia, with long-term current use of insulin Type 2 diabetes mellitus with polyneuropathy Type 2 diabetes mellitus with chronic kidney disease Hypertension Hypertriglyceridemia Diabetes mellitus with hyperglycemia, with long-term current use of insulin History of alcohol abuse Abnormal biopsy of kidney Peptic ulcer Hx of pancreatitis Anxiety Depression COPD (chronic obstructive pulmonary disease) History of headache Sleep apnea Asthma On beta doron at home Elevated cholesterol CHF (congestive heart failure) HTN (hypertension) Family History Family History Mother Diabetes Surgical History Surgical History History of esophagogastroduodenoscopy (EGD) History of surgery Hx of right inguinal hernia repair Hx of colonoscopy Social History Social History Household Members: None Housing: Apartment Are you a primary emergency care attendant to a significant other at home: No Do you presently have visiting nurse or other home services: Yes ([employer]) Alcohol intake: never Comment: pt sleeping Patient Tobacco Use Status: Never used Tobacco Tobacco use type: Cigarette Years Smoked: 30 Smoked in Last 30 Days: No Second Hand Smoke Exposure: Yes Use of substances other than those prescribed or required for medical reasons: No Have you been hit, kicked, punched, or otherwise hurt by someone within the past year? If so, by whom?: No Are you made to feel afraid or neglected: No Advance Directives: No Advance Directives Information Provided: No Do you have a plan to hurt others: No Plan Recently lost weight without trying: No Nutrition Risks: No Nutritional Risk service: No Current occupational status: retired [employer] Allergies Allergy/AdvReac Type Severity Reaction Status Date / Time No Known Allergies Allergy Verified 11/15/24 09:55 Active Medications: Current Medications Acetaminophen (Acetaminophen 325 Mg Tablet) 650 mg PO Q6H PRN PRN Reason: Pain, Mild 1-3,fever,headache Albuterol Sulfate (Albuterol Sulfate 90 Mcg 8 Gm Inhaler) 2 puff INHALE Q4H PRN PRN Reason: Shortness Of Breath Aspirin (Aspirin Enteric Coated 81 Mg Tablet.Dr) 81 mg PO DAILY [facility] Atorvastatin Calcium (Atorvastatin Calcium 80 Mg Tablet) 80 mg PO BEDTIME [facility] Calcium Carbonate (Calcium Carbonate 750 Mg Tab.Chew) 750 mg PO Q4H PRN PRN Reason: Heartburn Carvedilol (Carvedilol 25 Mg Tablet) 25 mg PO BID [facility]; Protocol Cyclobenzaprine HCl (Cyclobenzaprine Hcl 10 Mg Tablet) 10 mg PO TID PRN PRN Reason: muscle spasm Cyclobenzaprine HCl (Cyclobenzaprine Hcl 5 Mg Tablet) 5 mg PO BID PRN PRN Reason: muscle spasm Doxazosin Mesylate (Doxazosin Mesylate 2 Mg Tablet) 2 mg PO DAILY [facility]; Protocol Gabapentin (Gabapentin 300 Mg Capsule) 300 mg PO BEDTIME [facility] Heparin Sodium (Porcine) (Heparin Sodium,Porcine 5,000 Unit/Ml Vial) 5,000 unit SUBCUT Q12H [facility] Isosorbide Mononitrate (Isosorbide Mononitrate 60 Mg Tab.Er.24h) 120 mg PO QAM [facility]; Protocol Losartan Potassium (Losartan Potassium 50 Mg Tablet) 50 mg PO DAILY [facility]; Protocol Magnesium Hydroxide (Milk Of Magnesia 30 Ml Oral.Susp) 30 ml PO DAILY PRN PRN Reason: Constipation Melatonin (Melatonin 3 Mg Tablet) 6 mg PO BEDTIME PRN PRN Reason: Insomnia Metoclopramide HCl (Metoclopramide Hcl 10 Mg Tablet) 10 mg PO Q6H PRN PRN Reason: nausea and vomiting Non-Formulary Medication (Nifedipine) 120 mg PO BEDTIME [facility] Non-Formulary Medication (Fluticasone Propionate [Flovent Hfa]) 2 puff INHALE BID [facility] Non-Formulary Medication (Insulin Glargine U-300 Conc [Toujeo Max U-300 Solostar]) 12 unit SUBCUT DAILY [facility] Omeprazole (Omeprazole 20 Mg Capsule.Dr) 20 mg PO BID [facility] Ondansetron HCl (Ondansetron Hcl 4 Mg/2 Ml Vial) 4 mg IVPUSH Q8H PRN PRN Reason: Nausea and Vomiting Oxcarbazepine (Oxcarbazepine 300 Mg Tablet) 300 mg PO BID [facility] Oxycodone HCl (Oxycodone Hcl Immed Release 5 Mg Tablet) 10 mg PO Q6H PRN PRN Reason: Pain, Moderate(Pain Scale 4-6) Perphenazine (Perphenazine 2 Mg Tablet) 2 mg PO BID [facility] Sertraline HCl (Sertraline Hcl 100 Mg Tablet) 200 mg PO DAILY [facility] Sodium Chloride (0.9 % Sodium Chloride Flush 3 Ml Syringe) 3 ml IVFLUSH QSHIFT [facility] Sucralfate (Sucralfate Oral Suspension 1 Gm/10 Ml Oral.Susp) gm PO QIDACHS [facility] Torsemide (Torsemide 20 Mg Tablet) 80 mg PO BID [facility]; Protocol Vitamin D (Cholecalciferol (Vitamin D3) 25 Mcg Tablet) 50 mcg PO DAILY [facility] Home Medications ?Medication ?Instructions ?Recorded ?Confirmed ?Last Taken ?Type albuterol sulfate 90 mcg/actuation 2 puff PO Q4H PRN Shortness Of 12/01/21 11/16/24 Unknown History aerosol inhaler (Ventolin HFA) Breath aspirin 81 mg tablet,delayed 1 tab PO DAILY 12/01/21 11/16/24 12/01/21 History release cholecalciferol (vitamin D3) 25 2 tab PO DAILY 12/01/21 11/16/24 12/01/21 History mcg (1,000 unit) tablet gabapentin 600 mg tablet 300 mg PO BEDTIME 12/01/21 11/16/24 11/30/21 History oxcarbazepine 300 mg tablet 1 tab PO BID 12/01/21 11/16/24 12/01/21 History perphenazine 2 mg tablet 1 tab PO BID 12/01/21 11/16/24 11/30/21 History sertraline 100 mg tablet 2 tab PO DAILY 12/01/21 11/16/24 11/30/21 History tramadol 50 mg tablet 2 tab PO Q8H PRN Pain 12/01/21 11/16/24 Unknown History zolpidem 10 mg tablet 1 tab PO BEDTIME PRN Insomnia 12/01/21 11/16/24 Unknown History blood-glucose meter (FreeStyle 06/20/22 12/18/22 Unknown History Lite Meter kit) isosorbide mononitrate 60 mg 120 mg PO QAM 04/16/23 11/16/24 Unknown History tablet,extended release 24 hr fluticasone furoate 200 1 inh inhalation DAILY 11/16/24 11/16/24 Unknown History mcg/actuation blister powder for inhalation (Arnuity Ellipta) Physical Exam Vital Signs: Last Vital Signs Temp 97.5 F 11/16/24 12:39 Pulse 68 11/16/24 12:39 Resp 16 11/16/24 12:39 BP 204/84 H 11/16/24 12:39 Pulse Ox 98 11/16/24 12:39 O2 Del Method Room Air 11/16/24 12:39 BMI result Body Mass Index 30.7 Comfortable Neck supple no JVD. Lungs entry equal no rales. Heart S1-S2 heard no gallop or rub. Abdomen soft nontender. Neuro alert awake oriented. No asterixis. Extremities no edema. Results Lab Results 11/16/24 11:13 11/17/24 04:58 Lab results: Chemistry 11/16/24 11:13 Sodium 140 Potassium 5.9 H D Carbon Dioxide 28 BUN 53 H Creatinine 12.48 H* Calcium 8.0 L D Hematology 11/16/24 11:13 WBC 6.9 Hgb 10.2 L Plt Count 107 L Assessment and Plan (1) ESRD (end stage renal disease) on dialysis: Status: Acute (2) Hyperkalemia: Status: Acute Plan Hemodialysis ordered today. Low-potassium bath to correct hyperkalemia. Fluid removal as tolerated by blood pressure. Procedures Date of Service Date of Service: 11/17/24
--- NOTE | 2024-11-16 14:22 | PHA.MEDREC ---
Pharmacy Consult ? Medication Reconciliation Pharmacy has completed the medication reconciliation. Spoke to patient. Patient not taking cyclobenzaprine, metoclopramide or glargine anymore. Only on humalog tid 12u,18u,28u.
[2024-11-16] MEDS: oxyCODONE HCl Immed Release 5 MG TABLET 10 MG PO ×2 (14:46→20:47)
--- NOTE | 2024-11-16 19:42 | PC.NURSE ---
Patient returned from dialysis
--- NOTE | 2024-11-16 19:49 | PC.NURSE ---
Pharmacy called to retime meds patient was not able to get during dialysis. Request for meds not stocked in [facility] made via [employer]
[2024-11-16 19:55] LABS: Glucose, Whole Blood 99 mg/dL (60-115)
[2024-11-16] MEDS: Omeprazole 20 MG CAPSULE.DR PO (20:32)
[2024-11-16] MEDS: Atorvastatin Calcium 80 MG TABLET PO (20:32)
[2024-11-16] MEDS: Gabapentin 300 MG CAPSULE PO (20:32)
[2024-11-16] MEDS: Sucralfate Oral Suspension 1 GM/10 ML ORAL.SUSP PO (20:33)
[2024-11-16] MEDS: OXcarbazepine 300 MG TABLET PO (20:33)
[2024-11-16] MEDS: NIFEdipine ER 30 MG TAB.ER.24 120 MG PO (20:33)
[2024-11-16] MEDS: Heparin Sodium,Porcine 5,000 UNIT/ML VIAL 5000 UNIT SUBCUT (20:33)
[2024-11-16] MEDS: Perphenazine 2 MG TABLET PO (20:33)
[2024-11-16] MEDS: Torsemide 20 MG TABLET 80 MG PO (20:34)
[2024-11-16] MEDS: Isosorbide Mononitrate 60 MG TAB.ER.24H 120 MG PO (20:48)
--- NOTE | 2024-11-16 21:01 | PC.NURSE ---
Patient continues to c/o knee pain, medicated per dec. Was able to stand up w/ heavy 1 assist, walk to BR w/ walker. Patient insisted on being able to try to walk. Currently resting quietly on hospital bed watching tv waiting for bed assignment.
[2024-11-16 21:13] VITALS: BP 192/78; PULSE 70; RESP 18; TEMP 36.4; O2SAT 96
[2024-11-16 23:44] VITALS: BP 169/73; PULSE 73; RESP 16; TEMP 36.6; O2SAT 96
[2024-11-17] VITALS (7 sets, daily range): BP systolic 107–138; BP diastolic 52–67; PULSE 66–71; RESP 16–20; TEMP 36.4–36.7; O2SAT 96–98
--- NOTE | 2024-11-17 01:13 | MHC.EDTECH ---
Patient requested either oxygen or CPAP. Respiratory advised we only have full face mask. Pt opted for oxygen as he states full face mask dries his nasal passage. RN advised
[2024-11-17 05:24] LABS: Anion Gap 19 (12-20); Blood Urea Nitrogen 36 mg/dL (9-16); Calcium 8.7 mg/dL (8.4-10.2); Carbon Dioxide 21 mmol/L (22-29); Chloride 100 mmol/L (96-108); Creatinine Clr Calc Pharmacy 9.9; Estimated Glomerular Filt Rate 6; Glucose Random 177 mg/dL (60-115); Potassium 4.5 mmol/L (3.3-5.1); Sodium 135 mmol/L (135-145)
[2024-11-17] MEDS: 0.9 % Sodium Chloride Flush 3 ML SYRINGE IVFLUSH ×3 (06:20→17:28)
[2024-11-17] MEDS: Morphine Sulfate 4 MG/ML CARTRIDGE IVPUSH (06:28)
[2024-11-17 07:31] LABS: Glucose, Whole Blood 164 mg/dL (60-115)
[2024-11-17] MEDS: Fluticasone Propionate 250 MCG BLST.W.DEV 1 PUFF INHALE (08:58)
[2024-11-17] MEDS: oxyCODONE HCl Immed Release 5 MG TABLET 10 MG PO ×2 (08:58→15:28)
[2024-11-17] MEDS: Losartan Potassium 50 MG TABLET PO (08:59)
[2024-11-17] MEDS: Aspirin Enteric Coated 81 MG TABLET.DR PO (09:00)
[2024-11-17] MEDS: carvediloL 25 MG TABLET PO ×2 (09:00→20:56)
[2024-11-17] MEDS: Cholecalciferol (Vitamin D3) 25 MCG TABLET 50 MCG PO (09:00)
[2024-11-17] MEDS: OXcarbazepine 300 MG TABLET PO ×2 (09:00→20:56)
[2024-11-17] MEDS: Doxazosin Mesylate 2 MG TABLET PO (09:00)
[2024-11-17] MEDS: Isosorbide Mononitrate 60 MG TAB.ER.24H 120 MG PO (09:01)
[2024-11-17] MEDS: Sucralfate Oral Suspension 1 GM/10 ML ORAL.SUSP PO ×4 (09:01→20:57)
[2024-11-17] MEDS: Omeprazole 20 MG CAPSULE.DR PO ×2 (09:01→20:58)
[2024-11-17] MEDS: Torsemide 20 MG TABLET 80 MG PO ×2 (09:01→20:57)
[2024-11-17] MEDS: Perphenazine 2 MG TABLET PO ×2 (09:02→20:58)
[2024-11-17] MEDS: Sertraline HCL 100 MG TABLET 200 MG PO (09:02)
[2024-11-17] MEDS: Heparin Sodium,Porcine 5,000 UNIT/ML VIAL 5000 UNIT SUBCUT ×2 (09:02→21:03)
[2024-11-17] MEDS: Insulin Lispro 100 UNIT/ML 3 ML VIAL SUBCUT ×2 (09:09→12:32)
[2024-11-17 11:59] LABS: Glucose, Whole Blood 177 mg/dL (60-115)
--- NOTE | 2024-11-17 12:04 | PC.NURSE ---
Patient attempting to get oob to ambulate. Only able to go a short distance d/t pain, requesting stronger pain medication. MD notified
--- NOTE | 2024-11-17 12:58 | MHC.CM.PN ---
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
--- NOTE | 2024-11-17 13:41 | P.PNIM_ITS ---
Subjective Subjective Date of Service: 11/17/24 Interval History: Complaining of persistent severe right knee pain, ice pack in place, refusing examination due to pain Denies fever, no chills, no shortness of breath, no lightheadedness, no dizziness Tolerating diet. Review of Systems All other system reviewed and are negative Physical Exam 2 Vital Signs: Vital Signs: Last Vital Signs Temp 97.6 F 11/17/24 06:32 Pulse 66 11/17/24 06:32 Resp 16 11/17/24 06:32 BP 138/64 11/17/24 06:32 Pulse Ox 98 11/17/24 06:32 O2 Del Method Nasal Cannula 11/17/24 06:32 O2 Flow Rate 2 11/17/24 06:32 BMI result Body Mass Index 30.7 Const: Other: General awake alert x3 resting comfortably in no acute distress. Anicteric sclera Neck no JVD. CVS regular rate rhythm, Respiratory lungs clear to auscultation, no respiratory distress, no wheeze, no rhonchi. Gastrointestinal abdomen soft, non tender, bowel sounds audible, no guarding , no rigidity. Extremities no edema. Right knee, no swelling, no warmth, no bruising, tender to palpation, refusing to flex due to pain Neuro non focal Skin no rash Appropriate affect Objective Data Active Medications Acetaminophen (Acetaminophen 325 Mg Tablet) 650 mg PO Q6H PRN PRN Reason: Pain, Mild 1-3,fever,headache Albuterol Sulfate (Albuterol Sulfate 90 Mcg 8 Gm Inhaler) 2 puff INHALE Q4H PRN PRN Reason: Shortness Of Breath Aspirin (Aspirin Enteric Coated 81 Mg Tablet.) 81 mg PO DAILY [facility] Last Admin: 11/17/24 09:00 Dose: 81 mg Documented By: GRIFFIN Atorvastatin Calcium (Atorvastatin Calcium 80 Mg Tablet) 80 mg PO BEDTIME [facility] Last Admin: 11/16/24 20:32 Dose: 80 mg Documented By: SUETOLC Calcium Carbonate (Calcium Carbonate 750 Mg Tab.Chew) 750 mg PO Q4H PRN PRN Reason: Heartburn Carvedilol (Carvedilol 25 Mg Tablet) 25 mg PO BID [facility]; Protocol Last Admin: 11/17/24 09:00 Dose: 25 mg Documented By: GRIFFIN Doxazosin Mesylate (Doxazosin Mesylate 2 Mg Tablet) 2 mg PO DAILY [facility]; Protocol Last Admin: 11/17/24 09:00 Dose: 2 mg Documented By: GRIFFIN Fluticasone Propionate (Fluticasone Propionate 250 Mcg Blst.W.Dev) 1 puff INHALE RDAILY [facility] Last Admin: 11/17/24 08:58 Dose: 1 puff Documented By: GRIFFIN Gabapentin (Gabapentin 300 Mg Capsule) 300 mg PO BEDTIME [facility] Last Admin: 11/16/24 20:32 Dose: 300 mg Documented By: ZELALEM Glucose (Glucose Gel 15 Gm Gel..Gram.) 15 gm PO Q15M PRN; Protocol PRN Reason: per Hypoglycemia Standing Ord. Heparin Sodium (Porcine) (Heparin Sodium,Porcine 5,000 Unit/Ml Vial) 5,000 unit SUBCUT Q12H [facility] Last Admin: 11/17/24 09:02 Dose: 5,000 unit Documented By: GRIFFIN Hydromorphone HCl (Hydromorphone Hcl 1 Mg/Ml Syringe) 1 mg IVPUSH Q4H PRN; Protocol PRN Reason: Pain, Severe (Pain Scale 7-10) Dextrose (D10) 250 mls @ 750 mls/hr IV Q15M PRN; Protocol PRN Reason: per Hypoglycemia Standing Ord. Insulin Human Lispro (Insulin Lispro 100 Unit/Ml 3 Ml Vial) 0 unit SUBCUT QIDACHS [facility]; Protocol Last Admin: 11/17/24 12:32 Dose: 2 unit Documented By: GRIFFIN Isosorbide Mononitrate (Isosorbide Mononitrate 60 Mg Tab.Er.24h) 120 mg PO DAILY [facility]; Protocol Last Admin: 11/17/24 09:01 Dose: 120 mg Documented By: GRIFFIN Losartan Potassium (Losartan Potassium 50 Mg Tablet) 50 mg PO DAILY [facility]; Protocol Last Admin: 11/17/24 08:59 Dose: 50 mg Documented By: GRIFFIN Magnesium Hydroxide (Milk Of Magnesia 30 Ml Oral.Susp) 30 ml PO DAILY PRN PRN Reason: Constipation Melatonin (Melatonin 3 Mg Tablet) 6 mg PO BEDTIME PRN PRN Reason: Insomnia Nifedipine (Nifedipine Er 30 Mg Tab.Er.24) 120 mg PO BEDTIME [facility] Last Admin: 11/16/24 20:33 Dose: 120 mg Documented By: ZELALEM Omeprazole (Omeprazole 20 Mg Capsule.Dr) 20 mg PO BID [facility] Last Admin: 11/17/24 09:01 Dose: 20 mg Documented By: GRIFFIN Ondansetron HCl (Ondansetron Hcl 4 Mg/2 Ml Vial) 4 mg IVPUSH Q8H PRN PRN Reason: Nausea and Vomiting Oxcarbazepine (Oxcarbazepine 300 Mg Tablet) 300 mg PO BID [facility] Last Admin: 11/17/24 09:00 Dose: 300 mg Documented By: GRIFFIN Oxycodone HCl (Oxycodone Hcl Immed Release 5 Mg Tablet) 10 mg PO Q6H PRN PRN Reason: Pain, Moderate(Pain Scale 4-6) Last Admin: 11/17/24 08:58 Dose: 10 mg Documented By: GRIFFIN Perphenazine (Perphenazine 2 Mg Tablet) 2 mg PO BID [facility] Last Admin: 11/17/24 09:02 Dose: 2 mg Documented By: GRIFFIN Sertraline HCl (Sertraline Hcl 100 Mg Tablet) 200 mg PO DAILY [facility] Last Admin: 11/17/24 09:02 Dose: 200 mg Documented By: GRIFFIN Sodium Chloride (0.9 % Sodium Chloride Flush 3 Ml Syringe) 3 ml IVFLUSH QSHIFT [facility] Last Admin: 11/17/24 09:11 Dose: 3 ml Documented By: GRIFFIN Sucralfate (Sucralfate Oral Suspension 1 Gm/10 Ml Oral.Susp) 1 gm PO QIDACHS [facility] Last Admin: 11/17/24 12:32 Dose: 1 gm Documented By: GRIFFIN Torsemide (Torsemide 20 Mg Tablet) 80 mg PO BID [facility]; Protocol Last Admin: 11/17/24 09:01 Dose: 80 mg Documented By: GRIFFIN Vitamin D (Cholecalciferol (Vitamin D3) 25 Mcg Tablet) 50 mcg PO DAILY [facility] Last Admin: 11/17/24 09:00 Dose: 50 mcg Documented By: GRIFFIN Labs 11/16/24 11:13 11/17/24 04:58 Labs: Laboratory Results - last 24 hr 11/16/24 11/17/24 11/17/24 19:51 04:58 07:18 Anion Gap 19 Estim Creat Clear Calc 9.9 Estimated GFR 6 POC Glucose 99 164 H Random Glucose 177 H Calcium 8.7 D 11/17/24 11:54 Anion Gap Estim Creat Clear Calc Estimated GFR POC Glucose 177 H Random Glucose Calcium Assessment and Plan (1) Hyperkalemia: Status: Acute (2) Knee pain, right: Status: Acute Plan 61yo M with HFpEF, HTN, DM2, 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 # acute right knee pain after fall Significant tenderness to palpation and with movement, x-ray unremarkable due to persistent acute pain Orthopedic surgery consult pending Oxycodone/Tylenol and add IV Dilaudid for severe pain control Further workup as per ortho PT recommend short-term rehab # ESRD- underwent hemodialysis yesterday, creatinine improved to 9, continue hemodialysis Wednesdays and Fridays, being followed by Nephrology. # acute hyperkalemia resolved after hemodialysis potassium 4.5 # HTN- uncontrolled blood pressure on admission l ikely due to pain and missing home meds in last 24 hours, Continue home medications Imdur, carvedilol, hydralazine, nifedipine, and doxazosin and follow BP # PAD - continue ASA, atorvastatin # HLD - continue atorvastatin # COPD no acute exacerbation continue home meds # GERD continue Carafate and PPI # DM2 - diabetic diet, insulin sliding scale follow point of care blood sugar closely. # neuropathy - continue gabapentin # mood disorder - continue oxcarbazepine, perphenazine, sertraline # BRENDA cpap # VTE ppx with subcu heparin # dispo short-term rehab Quality Stroke Does the patient have a stroke diagnosis?: No VTE Prior VTE?: No VTE Risk Level:: Medical - moderate - high VTE Device Contraindication: Treatment Not Indicated VTE Drug Contraindication: N/A - Med Ordered
[2024-11-17] MEDS: HYDROmorphone HCl 1 MG/ML SYRINGE IVPUSH ×2 (13:55→21:13)
--- NOTE | 2024-11-17 15:18 | P.CONOP_ITS ---
History of Present Illness HPI Consult date: 11/17/24 Chief complaint: acute right knee pain/uncontrolled blood pressure Narrative: A 64-year-old gentleman who was admitted to the hospital subsequently developed right knee pain. Orthopedics was consulted for recommendations. No injury to the right knee noted. Review of Systems 2 Review of Systems: Yes all other systems are reviewed and are negative PMF Past Medical History Medical History Type 2 diabetes, controlled, with renal manifestation ESRD (end stage renal disease) on dialysis CHF exacerbation Diabetes type 2, uncontrolled Anemia HTN (hypertension) Heart failure with preserved ejection fraction CKD (chronic kidney disease) stage 4, GFR 15-29 ml/min Congestive heart failure Type 2 diabetes mellitus with unspecified complications Diastolic dysfunction Essential hypertension Hyperglycemia Hypertensive crisis Pancreatitis Chronic kidney disease, stage 4 (severe) Erectile dysfunction Depression with anxiety Proteinuria Diverticulitis Type 2 diabetes mellitus with hyperglycemia, with long-term current use of insulin Type 2 diabetes mellitus with polyneuropathy Type 2 diabetes mellitus with chronic kidney disease Hypertension Hypertriglyceridemia Diabetes mellitus with hyperglycemia, with long-term current use of insulin History of alcohol abuse Abnormal biopsy of kidney Peptic ulcer Hx of pancreatitis Anxiety Depression COPD (chronic obstructive pulmonary disease) History of headache Sleep apnea Asthma On beta doron at home Elevated cholesterol CHF (congestive heart failure) HTN (hypertension) Family History Family History Mother Diabetes Surgical History Surgical History History of esophagogastroduodenoscopy (EGD) History of surgery Hx of right inguinal hernia repair Hx of colonoscopy Social History Social History Household Members: None Housing: Apartment Are you a primary direct care professional to a significant other at home: No Do you presently have visiting nurse or other home services: Yes ([employer]) Alcohol intake: never Comment: pt sleeping Patient Tobacco Use Status: Never used Tobacco Tobacco use type: Cigarette Years Smoked: 30 Smoked in Last 30 Days: No Second Hand Smoke Exposure: Yes Use of substances other than those prescribed or required for medical reasons: No Have you been hit, kicked, punched, or otherwise hurt by someone within the past year? If so, by whom?: No Are you made to feel afraid or neglected: No Advance Directives: No Advance Directives Information Provided: No Do you have a plan to hurt others: No Plan Recently lost weight without trying: No Nutrition Risks: No Nutritional Risk service: No Current occupational status: retired [employer] Allergies Allergy/AdvReac Type Severity Reaction Status Date / Time No Known Allergies Allergy Verified 11/15/24 09:55 Active Medications: Current Medications Acetaminophen (Acetaminophen 325 Mg Tablet) 650 mg PO Q6H PRN PRN Reason: Pain, Mild 1-3,fever,headache Albuterol Sulfate (Albuterol Sulfate 90 Mcg 8 Gm Inhaler) 2 puff INHALE Q4H PRN PRN Reason: Shortness Of Breath Aspirin (Aspirin Enteric Coated 81 Mg Tablet.Dr) 81 mg PO DAILY [facility] Last Admin: 11/17/24 09:00 Dose: 81 mg Atorvastatin Calcium (Atorvastatin Calcium 80 Mg Tablet) 80 mg PO BEDTIME [facility] Last Admin: 11/16/24 20:32 Dose: 80 mg Calcium Carbonate (Calcium Carbonate 750 Mg Tab.Chew) 750 mg PO Q4H PRN PRN Reason: Heartburn Carvedilol (Carvedilol 25 Mg Tablet) 25 mg PO BID [facility]; Protocol Last Admin: 11/17/24 09:00 Dose: 25 mg Doxazosin Mesylate (Doxazosin Mesylate 2 Mg Tablet) 2 mg PO DAILY [facility]; Protocol Last Admin: 11/17/24 09:00 Dose: 2 mg Fluticasone Propionate (Fluticasone Propionate 250 Mcg Blst.W.Dev) 1 puff INHALE RDAILY [facility] Last Admin: 11/17/24 08:58 Dose: 1 puff Gabapentin (Gabapentin 300 Mg Capsule) 300 mg PO BEDTIME [facility] Last Admin: 11/16/24 20:32 Dose: 300 mg Glucose (Glucose Gel 15 Gm Gel..Gram.) 15 gm PO Q15M PRN; Protocol PRN Reason: per Hypoglycemia Standing Ord. Heparin Sodium (Porcine) (Heparin Sodium,Porcine 5,000 Unit/Ml Vial) 5,000 unit SUBCUT Q12H [facility] Last Admin: 11/17/24 09:02 Dose: 5,000 unit Hydromorphone HCl (Hydromorphone Hcl 1 Mg/Ml Syringe) 1 mg IVPUSH Q4H PRN; Protocol PRN Reason: Pain, Severe (Pain Scale 7-10) Last Admin: 11/17/24 13:55 Dose: 1 mg Dextrose (D10) 250 mls @ 750 mls/hr IV Q15M PRN; Protocol PRN Reason: per Hypoglycemia Standing Ord. Insulin Human Lispro (Insulin Lispro 100 Unit/Ml 3 Ml Vial) 0 unit SUBCUT QIDACHS [facility]; Protocol Last Admin: 11/17/24 12:32 Dose: 2 unit Isosorbide Mononitrate (Isosorbide Mononitrate 60 Mg Tab.Er.24h) 120 mg PO DAILY [facility]; Protocol Last Admin: 11/17/24 09:01 Dose: 120 mg Losartan Potassium (Losartan Potassium 50 Mg Tablet) 50 mg PO DAILY [facility]; Protocol Last Admin: 11/17/24 08:59 Dose: 50 mg Magnesium Hydroxide (Milk Of Magnesia 30 Ml Oral.Susp) 30 ml PO DAILY PRN PRN Reason: Constipation Melatonin (Melatonin 3 Mg Tablet) 6 mg PO BEDTIME PRN PRN Reason: Insomnia Nifedipine (Nifedipine Er 30 Mg Tab.Er.24) 120 mg PO BEDTIME [facility] Last Admin: 11/16/24 20:33 Dose: 120 mg Omeprazole (Omeprazole 20 Mg Capsule.Dr) 20 mg PO BID [facility] Last Admin: 11/17/24 09:01 Dose: 20 mg Ondansetron HCl (Ondansetron Hcl 4 Mg/2 Ml Vial) 4 mg IVPUSH Q8H PRN PRN Reason: Nausea and Vomiting Oxcarbazepine (Oxcarbazepine 300 Mg Tablet) 300 mg PO BID [facility] Last Admin: 11/17/24 09:00 Dose: 300 mg Oxycodone HCl (Oxycodone Hcl Immed Release 5 Mg Tablet) 10 mg PO Q6H PRN PRN Reason: Pain, Moderate(Pain Scale 4-6) Last Admin: 11/17/24 08:58 Dose: 10 mg Perphenazine (Perphenazine 2 Mg Tablet) 2 mg PO BID [facility] Last Admin: 11/17/24 09:02 Dose: 2 mg Sertraline HCl (Sertraline Hcl 100 Mg Tablet) 200 mg PO DAILY [facility] Last Admin: 11/17/24 09:02 Dose: 200 mg Sodium Chloride (0.9 % Sodium Chloride Flush 3 Ml Syringe) 3 ml IVFLUSH QSHIFT [facility] Last Admin: 11/17/24 09:11 Dose: 3 ml Sucralfate (Sucralfate Oral Suspension 1 Gm/10 Ml Oral.Susp) 1 gm PO QIDACHS [facility] Last Admin: 11/17/24 12:32 Dose: 1 gm Torsemide (Torsemide 20 Mg Tablet) 80 mg PO BID [facility]; Protocol Last Admin: 11/17/24 09:01 Dose: 80 mg Vitamin D (Cholecalciferol (Vitamin D3) 25 Mcg Tablet) 50 mcg PO DAILY [facility] Last Admin: 11/17/24 09:00 Dose: 50 mcg Home Medications ?Medication ?Instructions ?Recorded ?Confirmed ?Last Taken ?Type albuterol sulfate 90 mcg/actuation 2 puff PO Q4H PRN Shortness Of 12/01/21 11/16/24 Unknown History aerosol inhaler (Ventolin HFA) Breath aspirin 81 mg tablet,delayed 1 tab PO DAILY 12/01/21 11/16/24 12/01/21 History release cholecalciferol (vitamin D3) 25 2 tab PO DAILY 12/01/21 11/16/24 12/01/21 History mcg (1,000 unit) tablet gabapentin 600 mg tablet 300 mg PO BEDTIME 12/01/21 11/16/24 11/30/21 History oxcarbazepine 300 mg tablet 1 tab PO BID 12/01/21 11/16/24 12/01/21 History perphenazine 2 mg tablet 1 tab PO BID 12/01/21 11/16/24 11/30/21 History sertraline 100 mg tablet 2 tab PO DAILY 12/01/21 11/16/24 11/30/21 History tramadol 50 mg tablet 2 tab PO Q8H PRN Pain 12/01/21 11/16/24 Unknown History zolpidem 10 mg tablet 1 tab PO BEDTIME PRN Insomnia 12/01/21 11/16/24 Unknown History blood-glucose meter (FreeStyle 06/20/22 12/18/22 Unknown History Lite Meter kit) isosorbide mononitrate 60 mg 120 mg PO QAM 04/16/23 11/16/24 Unknown History tablet,extended release 24 hr fluticasone furoate 200 1 inh inhalation DAILY 11/16/24 11/16/24 Unknown History mcg/actuation blister powder for inhalation (Arnuity Ellipta) Physical Exam 2 Vital Signs: Vital Signs: Last Vital Signs Temp 97.6 F 11/17/24 13:54 Pulse 71 11/17/24 13:54 Resp 20 11/17/24 13:54 BP 107/52 L 11/17/24 13:54 Pulse Ox 96 11/17/24 13:54 O2 Del Method Room Air 11/17/24 13:54 O2 Flow Rate 2 11/17/24 06:32 BMI result Body Mass Index 30.7 Const: General: cooperative, healthy appearing and comfortable Extrem: Other: Right knee normal to inspection. No joint effusion no redness no tenderness to palpation. He has full extension but pain with flexion. Results Labs 11/16/24 11:13 11/17/24 04:58 Labs: Abnormal lab results 11/17/24 11/17/24 11/17/24 Range/Units 04:58 07:18 11:54 Carbon Dioxide 21 L (22-29) mmol/L BUN 36 H (9-16) mg/dL Creatinine 9.00 H* (0.5-1.4) mg/dL POC Glucose 164 H 177 H (60-115) mg/dL Random Glucose 177 H (60-115) mg/dL H & H 11/16/24 Range/Units 11:13 Hgb 10.2 L (14.0-18.0) g/dl Hct 27.8 L (42.0-52.0) % All other labs normal. Assessment and Plan (1) Arthritis of knee, right: Status: Acute Plan X-rays of the right knee are significant for moderate arthritis. No evidence of septic joint. Recommend anti-inflammatories and Tylenol as needed Outpatient follow-up as needed No further orthopedic intervention warranted at this time. Procedures Date of Service Date of Service: 11/17/24
[2024-11-17 16:45] LABS: Glucose, Whole Blood 106 mg/dL (60-115)
--- NOTE | 2024-11-17 17:00 | MHC.EDTECH ---
He went to the bathroom using the walker, hourly round and vitals completed and POC checked BS [id number] RN aware.
--- NOTE | 2024-11-17 18:28 | PC.NURSE ---
Patient ambulated to bathroom c/o right knee pain. Medicated with Oxycodone per Dec . Now resting in bed.
[2024-11-17 20:56] LABS: Glucose, Whole Blood 125 mg/dL (60-115)
[2024-11-17] MEDS: Melatonin 3 MG TABLET 6 MG PO (20:57)
[2024-11-17] MEDS: Atorvastatin Calcium 80 MG TABLET PO (20:57)
[2024-11-17] MEDS: Gabapentin 300 MG CAPSULE PO (20:58)
[2024-11-17] MEDS: NIFEdipine ER 30 MG TAB.ER.24 120 MG PO (21:00)
[2024-11-18] MEDS: Acetaminophen 325 MG TABLET 650 MG PO (00:17)
[2024-11-18] MEDS: HYDROmorphone HCl 1 MG/ML SYRINGE IVPUSH ×2 (01:24→07:17)
--- NOTE | 2024-11-18 05:12 | PC.NURSE ---
Pt awake and ambulating with a cane. Reports decreased amount of pain to the right knee. Pt states wanting to exercise the knee. Pt encouraged to ambulate when there is no pain. Otherwise pt can rest the right knee. Pt agrees.
[2024-11-18 06:50] VITALS: BP 124/69; PULSE 68; RESP 16; TEMP 36.6; O2SAT 99
[2024-11-18] MEDS: Sertraline HCL 100 MG TABLET 200 MG PO (07:17)
[2024-11-18] MEDS: Torsemide 20 MG TABLET 80 MG PO (07:17)
[2024-11-18] MEDS: Losartan Potassium 50 MG TABLET PO (07:17)
[2024-11-18] MEDS: Sucralfate Oral Suspension 1 GM/10 ML ORAL.SUSP PO (07:17)
[2024-11-18] MEDS: 0.9 % Sodium Chloride Flush 3 ML SYRINGE IVFLUSH (07:17)
[2024-11-18] MEDS: Isosorbide Mononitrate 60 MG TAB.ER.24H 120 MG PO (07:18)
[2024-11-18] MEDS: Aspirin Enteric Coated 81 MG TABLET.DR PO (07:18)
[2024-11-18] MEDS: OXcarbazepine 300 MG TABLET PO (07:18)
[2024-11-18] MEDS: Cholecalciferol (Vitamin D3) 25 MCG TABLET 50 MCG PO (07:18)
[2024-11-18] MEDS: Omeprazole 20 MG CAPSULE.DR PO (07:18)
[2024-11-18] MEDS: Heparin Sodium,Porcine 5,000 UNIT/ML VIAL 5000 UNIT SUBCUT (07:18)
[2024-11-18] MEDS: carvediloL 25 MG TABLET PO (07:19)
[2024-11-18] MEDS: Doxazosin Mesylate 2 MG TABLET PO (07:19)
[2024-11-18] MEDS: Perphenazine 2 MG TABLET PO (07:19)
[2024-11-18 08:01] LABS: Glucose, Whole Blood 135 mg/dL (60-115)
--- NOTE | 2024-11-18 08:45 | MHC.EDTECH ---
pt provided breakfast tray, ate 75%, pt remains calm and comfortable at this time
[2024-11-18] MEDS: Fluticasone Propionate 250 MCG BLST.W.DEV 1 PUFF INHALE (09:48)
--- NOTE | 2024-11-18 13:50 | PM.DS ---
DS: Providers Provider Date of Service: 11/18/24 Date of admission: 11/16/24 13:59 Date of discharge: 11/18/24 Primary care physician: Nuvia Crook NP Consults: 11/15/24 15:14 Consult to Case Management Routine Comment: R knee pain, can't bear wt, lives alone 11/16/24 13:57 Consult to Orthopedics Routine Consulting Provider: [facility] Orthopedic Surgeons Reason for consultation: rt knee pain acute Has provider been notified: No DS: Diagnosis Discharge Diagnosis (1) Arthritis of knee, right: Status: Acute DS: Summary Hospital Course Hospital Course: 64-year-old male with PMH of HTN, HLD, DM, HFpEFf, Asthma/COPD, BRENDA on CPAP, Anxiety, depression, Hx of pancreatitis , end-stage renal disease on hemodialysis Wednesdays and Saturday presented to the hospital With complain of acute right pain according to patient he was walking up the stairs 2 days ago on Saturday when he got to the last step his leg gave out causing him to fall, since then patient is unable to bear weight on right leg due to acute pain in the emergency room x-ray of right knee showed no acute fracture patient was evaluated by Physical therapy and they recommending short-term rehab , today patient was noted to have significantly elevated blood pressure and is due for hemodialysis today, therefore patient is being admitted to [facility] for acute hemodialysis and better blood pressure control labs showed elevated potassium 5.9 creatinine 12.48, blood sugar 171, BNP 827 and blood pressure 204/84, at present patient denies nausea, no vomiting, no headache, no dizziness, no fevers, no chills complaining of persistent right knee pain with limited range of motion and ambulation. Hospital course Patient was admitted to general medical floor and consultation was placed by Orthopedics. Plain films failed to demonstrate a fracture orthopedics felt this was related to osteoarthritis of the right knee. He was seen in consultation by renal and received dialysis x2. At this point he is medically acceptable for discharge. He will resume his Saturday dialysis as prior to hospitalization Time Attestation Discharge Coordination Time (in mins): 35 Quality: Safe Use of Opioids Does Pt have an Active Cancer Diagnosis on the Problem List?: No Quality: Stroke Does the patient have a stroke diagnosis?: No Physical Exam Vital Signs: Vital Signs: Last Vital Signs Temp 97.9 F 11/18/24 06:50 Pulse 68 11/18/24 06:50 Resp 16 11/18/24 06:50 BP 124/69 11/18/24 06:50 Pulse Ox 99 11/18/24 06:50 O2 Del Method Room Air 11/18/24 06:50 O2 Flow Rate 2 11/17/24 06:32 BMI result Body Mass Index 30.7 Const: Other: Awake alert oriented x3 no acute distress Resp: Other: Clear to auscultation bilaterally no rales rhonchi or wheezes Cardio: Other: No S4; positive S1-S2; no S3 murmurs rubs or gallops GI: Other: Soft nontender nondistended normoactive bowel sounds Extrem: Other: No edema bilaterally DS: Data Data Completed and Pending Completed studies during hospitalization [Text1]: Procedures Excision of Duodenum, Via Natural or Artificial Opening Endoscopic, Diagnostic (02/03/21) Performance of Urinary Filtration, Intermittent, Less than 6 Hours Per Day (12/01/21) Labs on day of discharge: Laboratory Results - last 24 hr 11/17/24 11/17/24 11/18/24 16:40 20:14 07:58 POC Glucose 106 125 H 135 H Discharge Plan Discharge Anticipated Discharge Date/Time: 11/18/24 13:44 Patient Disposition: Home, Self-Care Discharge Diagnosis: Osteoarthritis right knee Referrals: Nuvia Crook, TRANSPORTATION DISPATCHER [Primary Care Provider] - 1 Week Discharge Medications: New oxycodone 10 mg tablet 10 mg PO Q6H PRN (Reason: pain) Qty: 20 0RF Rx Instructions: Partial Fill upon patient request. Continued doxazosin 2 mg tablet 2 mg PO DAILY Qty: 90 1RF (DME) FreeStyle Lite Strips Strip See Rx Instructions .Route Qty: 150 11RF Rx Instructions: As directed 4x DAILY torsemide 20 mg tablet 80 mg PO BID Qty: 720 1RF Rx Instructions: OVERDUE FOR FOLLOW UP APPT. PLEASE CALL TO SCHEDULE APPT FOR 2022 @ [phone] TO CONTINUE RECVING REFILLS. carvedilol 25 mg tablet 25 mg PO BID 90 Days Qty: 180 2RF Rx Instructions: OVERDUE FOR APPT. PLEASE CALL [phone] TO SCHEDULE FOLLOW UP SO WE CAN CONTINUE REFILLING THIS PRESCRIPTION. (DME) lancets [FreeStyle Lancets] 28 gauge misc See Rx Instructions .Route Qty: 100 6RF Rx Instructions: As directed nifedipine 30 mg tablet extended release 120 mg PO BEDTIME 90 Days Qty: 360 0RF Rx Instructions: Must make cardiology appt for refills (DME) lancets [TRUEplus Lancets] 33 gauge misc See Rx Instructions .ROUTE .COMPLEX Qty: 100 6RF Dose Instruction: TEST BLOOD SUGAR FOUR TIMES DAILY DIRECTED Rx Instructions: TEST BLOOD SUGAR FOUR TIMES DAILY DIRECTED (DME) pen needle, diabetic [BD Ultra-Fine Silvia Pen Needle] 32 gauge x needle See Rx Instructions .ROUTE .MEDSUPPLY Qty: 150 11RF Rx Instructions: As directed five times a day icosapent ethyl [Vascepa] 1 gram capsule 2 g PO BID Qty: 120 6RF atorvastatin 80 mg tablet 80 mg PO BEDTIME Qty: 30 5RF gabapentin 600 mg tablet 300 mg PO BEDTIME perphenazine 2 mg tablet 1 tab PO BID sertraline 100 mg tablet 2 tab PO DAILY oxcarbazepine 300 mg tablet 1 tab PO BID aspirin 81 mg tablet,delayed release (DR/EC) 1 tab PO DAILY tramadol 50 mg tablet 2 tab PO Q8H PRN (Reason: Pain) zolpidem 10 mg tablet 1 tab PO BEDTIME PRN (Reason: Insomnia) cholecalciferol (vitamin D3) 25 mcg (1,000 unit) tablet 2 tab PO DAILY albuterol sulfate [Ventolin HFA] 90 mcg/actuation HFA aerosol inhaler 2 puff PO Q4H PRN (Reason: Shortness Of Breath) diclofenac sodium [Voltaren Arthritis Pain] 1 % gel 4 g topical QID Qty: 100 0RF Rx Instructions: apply to single affected area Arnuity Ellipta 200 mcg/actuation blister with device 1 inh INHALATION DAILY (DME) blood-glucose meter [FreeStyle Lite Meter] Kit See Rx Instructions .Route Rx Instructions: As directed tadalafil [Cialis] 5 mg tablet 5 mg PO DAILY 90 Days Qty: 90 1RF Rx Instructions: [id number] [facility] [id number] Member [id number] insulin aspart U-100 [Novolog FlexPen U-100 Insulin] 100 unit/mL (3 mL) insulin pen See Rx Instructions subcut .COMPLEX Qty: 15 4RF Rx Instructions: 8 units with breakfast on non-dialysis days, 20 units with lunch and 14 units with dinner subcutaneously; Toujeo Max U-300 SoloStar 300 unit/mL (3 mL) insulin pen 12 unit subcut DAILY Qty: 6 6RF isosorbide mononitrate 60 mg tablet extended release 24 hr 120 mg PO QAM Rx Instructions: Current regimen omeprazole 20 mg capsule,delayed release(DR/EC) 20 mg PO BID 30 Days Qty: 60 0RF Discharge Orders: Discharge Order (Routine); Ordered 11/18/24 Ordered By: Mike Mendoza Diet: Advance to usual diet Activity on Discharge: As tolerated Stand Alone Forms: Patient Portal Discharge page Print Language: Paraguayan Care Plan Goals: Resume all your home medications as taken prior to the hospital. Follow up with the PCP next available Health Concerns: Resume your dialysis schedule. Your next scheduled encounter is Saturday11/20/2024 Plan of Treatment: Oxycodone 10 mg every 6 hours as needed for pain 20. Given. Assessment: See discharge summary
[2024-11-18 14:12] VITALS: BP 120/65; PULSE 80; RESP 14; TEMP 36.8
--- NOTE | 2024-11-18 15:36 | W.PM.DNNEP ---
Subjective Subjective Date of Service: 11/18/24 This patient was seen during dialysis. Interval history: Complains of knee pain Physical Exam Vital Signs: Vital Signs: Last Vital Signs Temp 98.2 F 11/18/24 14:12 Pulse 80 11/18/24 14:12 Resp 14 11/18/24 14:12 BP 120/65 11/18/24 14:12 Pulse Ox 99 11/18/24 06:50 O2 Del Method Room Air 11/18/24 06:50 O2 Flow Rate 2 11/17/24 06:32 BMI result Body Mass Index 30.7 Awake. Comfortable. Neck is supple. Mucosa moist. Lungs bilateral scattered rhonchi. Heart S1-S2 heard no gallop. Abdomen soft. Extremities no edema. No involuntary movements. No myoclonus. Assessment & Plan Assessment and plan (1) ESRD (end stage renal disease) on dialysis: Status: Acute Plan No signs or symptoms of uremia. Fluid status acceptable. Continue with hemodialysis 3 times a week and optimize fluid status. We will use Epogen as per protocol. Time Spent With Patient Time: Total time managing care of this patient today ____ minutes. Procedures Date of Service Date of Service: 11/18/24
== END 2024-11-18 16:30 | disposition home or self-care (01) | DRG 640 ==
LOC: HO.ED 11-16 11:45 → HO.EDOVER 11-16 14:04 → HO.S3 11-18 13:21 → HO.EDOVER 11-18 13:53
PROVIDERS: Physician Assistant Medical; Admitting Provider Hospitalist; Emergency Provider Emergency Medicine; PCP Nurse Practitioner Primary Care; Visit Provider Hospitalist
DX: E87.5 Hyperkalemia (principal); N18.6 End stage renal disease; I13.2 Hypertensive heart and chronic kidney disease with heart failure and with stage 5 chronic kidney disease, or end stage renal disease; I50.32 Chronic diastolic (congestive) heart failure; M17.11 Unilateral primary osteoarthritis, right knee; E11.51 Type 2 diabetes mellitus with diabetic peripheral angiopathy without gangrene; J44.9 Chronic obstructive pulmonary disease, unspecified; K21.9 Gastro-esophageal reflux disease without esophagitis; E78.5 Hyperlipidemia, unspecified; E11.40 Type 2 diabetes mellitus with diabetic neuropathy, unspecified; G47.33 Obstructive sleep apnea (adult) (pediatric); E11.22 Type 2 diabetes mellitus with diabetic chronic kidney disease; Z99.2 Dependence on renal dialysis; Z79.4 Long term (current) use of insulin; Z79.82 Long term (current) use of aspirin; Z79.899 Other long term (current) drug therapy
CPT/HCPCS: 36415; 73560; 80048; 80053; 82947; 83735; 83880; 85025; 90999; 93005; 97162; 99285; J1171; J1644; J2270

== ENCOUNTER → 2024-11-15 10:30 | Outpatient (BNV) | payer OTHER, SELFPAY | PROVIDERS: PCP Nurse Practitioner Primary Care; Visit Provider Radiology Diagnostic Radiology | DX: M25.561 Pain in right knee (principal) | CPT/HCPCS: 73560 ==

== ENCOUNTER → 2024-11-16 12:05 | Outpatient (BNV) | payer OTHER, SELFPAY | PROVIDERS: Admitting Provider Hospitalist; Emergency Provider Emergency Medicine; PCP Nurse Practitioner Primary Care; Visit Provider Internal Medicine Cardiovascular Disease | DX: I45.2 Bifascicular block (principal); I42.2 Other hypertrophic cardiomyopathy; I21.09 ST elevation (STEMI) myocardial infarction involving other coronary artery of anterior wall | CPT/HCPCS: 93010 ==

== ENCOUNTER → 2024-11-16 13:59 | Outpatient (BNV) | payer OTHER, SELFPAY | PROVIDERS: Admitting Provider Hospitalist; Emergency Provider Emergency Medicine; PCP Nurse Practitioner Primary Care; Visit Provider Internal Medicine Hypertension Specialist | DX: N18.6 End stage renal disease (principal); Z99.2 Dependence on renal dialysis; E87.5 Hyperkalemia | CPT/HCPCS: 90935; 99223 ==

== ENCOUNTER → 2024-11-16 13:59 | Outpatient (BNV) | payer OTHER, SELFPAY | PROVIDERS: Admitting Provider Hospitalist; Emergency Provider Emergency Medicine; PCP Nurse Practitioner Primary Care; Visit Provider Physician Assistant | DX: M17.11 Unilateral primary osteoarthritis, right knee (principal) | CPT/HCPCS: 99221 ==

== ENCOUNTER → 2024-11-16 13:59 | Outpatient (BNV) | payer OTHER, SELFPAY | PROVIDERS: Admitting Provider Hospitalist; Emergency Provider Emergency Medicine; PCP Nurse Practitioner Primary Care; Visit Provider Hospitalist | DX: M17.11 Unilateral primary osteoarthritis, right knee (principal) | CPT/HCPCS: 99239 ==

== ENCOUNTER 2024-11-24 08:32 | Outpatient (AMB) | payer OTHER, SELFPAY ==
[2024-11-24 08:41] VITALS: BP 162/68; PULSE 69; BMI 30.1
--- NOTE | 2024-11-24 08:41 | A.OFFVIS_ITS ---
Vital Signs 11/24/24 08:41 11/24/24 09:03 Height 5 ft 11 in Weight 216 lb 0.848 oz BMI 30.1 BP 162/68 H 152/60 H Blood Pressure Location Rt brachial Pulse 69 Pulse Source Pulse Oximeter Intake Visit Reasons: T2DM Intake Note: Patient presents today for a follow-up on Type 2 Diabetes Mellitus: Last Diabetic eye exam was on: DUE Last Podiatry exam was on: Patient does not see a Director Sterile Processing Most recent HbA1c: 6.2%, 11/24/2024 Random Glucose- 125 mg/dL, Today Scaleman Required: Yes Scaleman Language: Water Service Dispatcher Services: Scaleman Present Scaleman Name: John [id number] Information Interpreted: non-clinical & clinical Accompanied by: Self / Same As Patient Allergies No Known Allergies Allergy (Verified 11/15/24 09:55) HPI Comments Details: Patient is a 63-year-old male with DM type 2 diagnosed in in 1999, who presents for diabetic follow up. He last saw me in June 2024. The patient was recently in the hospital after he fell going up a flight of sta irs. Patient says he hit his right knee. X-ray demonstrated no fracture. He was evaluated by Orthopedics, and they recommended outpatient follow up as needed. He declines referral to Orthopedics today. Patient says he has a follow up with his primary care provider next month. He has pain medications to use as needed. Past medical history includes: DM2, CHF, HTN, HLD, HTG, ESRD on HD MWF, sleep apnea, hx pancreatitis (2012, 2020) Micro and macrovascular complications: + retinopathy, + nephropathy, +neuropathy, PAD Diabetes medications: Toujeo 12 units nightly, NovoLog 8 units before breakfast on non dialysis days, no NovoLog before breakfast on HD days, NovoLog 20 units at lunch and 14 units before dinner. Today 11/24/2024 his hemoglobin A1c is 6.2%. The patient forgot his meter today. He denies episodes of hypoglycemia. He says sometimes his continuous glucose monitor we will given alert that his blood sugar is low, but when he checks a fingerstick reading immediately it is always above 70. He denies symptoms of hypoglycemia associated with these alerts. Patient reports highest postprandial readings are 180-190. The patient's blood pressure was elevated today. It improved when I rechecked it. His blood pressure was normal on 11/18/2024. He has hemodialysis tomorrow, and it will be rechecked there. He denies chest pain, shortness of breath, dizziness, lower extremity edema. Care team Nephrology-Dr Ritchie-at HD Cardiology-Dr Gibbs/[facility] -he needs a referral to Podiatry because his provider in [place]. ROS: Constitutional: No fevers, chills, night sweats or increased fatigue Eyes: No vision changes Respiratory: No shortness of breath Cardiovascular: No chest pain, chest pressure or chest discomfort. No palpit ations or pedal edema. Gastrointestinal: No anorexia, nausea, vomiting or diarrhea. No abdominal pain Neurologic: No headache, dizziness, syncope Hematologic/Lymphatics: No bleeding Endocrine: No polyuria, polydipsia, shakiness, weakness. Physical exam: Constitutional: Alert, in no distress. Head: Normocephalic. Eyes: Pupils are equal, round and reactive to light. Extraocular muscles intact. Neck: Supple, Full range of motion. No lymphadenopathy.s Respiratory: Clear to auscultation. Cardiovascular: S1 S2 regular. No murmurs. Feet: The patient refused foot exam today. He denies open wounds. [facility] Medical History Type 2 diabetes, controlled, with renal manifestation ESRD (end stage renal disease) on dialysis CHF exacerbation Diabetes type 2, uncontrolled Anemia HTN (hypertension) Heart failure with preserved ejection fraction CKD (chronic kidney disease) stage 4, GFR 15-29 ml/min Congestive heart failure Type 2 diabetes mellitus with unspecified complications Diastolic dysfunction Essential hypertension Hyperglycemia Hypertensive crisis Pancreatitis Chronic kidney disease, stage 4 (severe) Erectile dysfunction Depression with anxiety Proteinuria Diverticulitis Type 2 diabetes mellitus with hyperglycemia, with long-term current use of insulin Type 2 diabetes mellitus with polyneuropathy Type 2 diabetes mellitus with chronic kidney disease Hypertension Hypertriglyceridemia Diabetes mellitus with hyperglycemia, with long-term current use of insulin History of alcohol abuse Abnormal biopsy of kidney Peptic ulcer Hx of pancreatitis Anxiety Depression COPD (chronic obstructive pulmonary disease) History of headache Sleep apnea Asthma On beta doron at home Elevated cholesterol CHF (congestive heart failure) HTN (hypertension) Surgical History History of esophagogastroduodenoscopy (EGD) History of surgery Hx of right inguinal hernia repair Hx of colonoscopy Family History Mother Diabetes Social History Household Members: None Housing: Apartment Are you a primary home care giver to a significant other at home: No Do you presently have visiting nurse or other home services: Yes (ELECTRICAL PLUMBING SUPERVISOR) Alcohol intake: never Comment: pt sleeping Patient Tobacco Use Status: Never used Tobacco Tobacco use type: Cigarette Years Smoked: 30 Second Hand Smoke Exposure: Yes service: No Current occupational status: retired Physical Exam Vital Signs: Last Vital Signs Pulse 69 11/24/24 08:41 BP 152/60 H 11/24/24 09:03 BMI result Body Mass Index 30.1 Results Reviewed Results Reviewed: Laboratory Last Values Glucose (Clinic) 125 mg/dL (60-115) H 11/24/24 08:46 Assessment & Plan Assessment & Plan (1) Type 2 diabetes, controlled, with renal manifestation: Code(s): E11.29 - Type 2 diabetes mellitus with other diabetic kidney complication Category: Medical Qualifiers: Diabetes mellitus assisted insulin use: with ferry terminal supervisor use Diabetes mellitus complication detail: with chronic kidney disease Chronic kidney disease stage: on chronic dialysis Qualified Code(s): E11.22 - Type 2 diabetes mellitus with diabetic chronic kidney disease; N18.6 - End stage renal disease; Z79.4 - intermediate teacher (current) use of insulin; Z99.2 - Dependence on renal dialysis (2) Essential hypertension: Code(s): I10 - Essential (primary) hypertension Category: Medical (3) ESRD (end stage renal disease) on dialysis: Code(s): N18.6 - End stage renal disease; Z99.2 - Dependence on renal dialysis Category: Medical Plan In summary this is a 64-year-old male with controlled type 2 diabetes with chronic insulin use and micro and macrovascular complications. Continue Toujeo 12 units nightly. Continue NovoLog 8 units before breakfast on non dialysis days, no NovoLog in the morning on HD days. Continue NovoLog to 20 units before lunch and 14 units before dinner. I requested that the patient return this week sometime so we can download the information from his glucometer. He agreed to stop by on . We reviewed proper treatment of hypo/hyperglycemia. See above notes in HPI regarding hypertension. Refer to podiatry. Continue to follow up with all specialists as planned. Follow up in 3 months for diabetes. Orders: Orders AMB Hemoglobin A1c Today E11.649 - Type 2 diabetes mellitus with hypoglycemia without coma, Z79.4 - intermediate teacher (current) use of insulin Referrals Podiatry Referral E11.40 - Type 2 diabetes mellitus with diabetic neuropathy, unspecified, E11.9 - Type 2 diabetes mellitus without complications, Z79.4 - intermediate teacher (current) use of insulin Coding Level of Care Code Est Pt Level 4 (63203) Complex EM visit Add On G2211 Diagnoses Controlled type 2 diabetes mellitus with chronic kidney disease on chronic dialysis, with long-term current use of insulin E11.22; N18.6; Z79.4; Z99.2 Diabetes mellitus assisted insulin use: with ferry terminal supervisor use Diabetes mellitus complication detail: with chronic kidney disease Chronic kidney disease stage: on chronic dialysis Essential hypertension I10 ESRD (end stage renal disease) on dialysis N18.6; Z99.2
[2024-11-24 08:50] LABS: Glucose, Whole Blood 125 mg/dL (60-115)
--- OUTSIDE RECORDS SUMMARY | 2024-11-24 08:51 | XMS_ITS | Encounter Summary ---
Author Organization [facility] Address [address] [place] [address] Phone Care Team Providers Care Freight Elevator Operator Name Role Phone Nuvia Crook NP Primary Care Provider Mell castellano Encounter Details Date Type Department Care Team (Late st Contact Info) Description 11/06/2024 Treatment [facility] [address] [id number] Teena Dunbar MD [address] [id number] Social History Tobacco Use Types Packs/Day Years Used Date Smoking Tobacco: Former Cigarettes Q uit: 10/28/2015 Smokeless Tobacco: Never Comments:Smoking History Inf o:Every day Alcohol Use Standard Drinks/Week Comments No 0 (1 standard drink = 0.6 oz pur e alcohol) Sex and Gender Information Value Date Recorded Sex Assigned at Not on file Legal Sex Male 5:10 PM EST Gender Identity Not on file Sexual Orientation Not on file documented as of this encounter Miscellaneous Notes * Dialysis Note - Teena Dunbar MD - 11/06/2024 12:00 AM EST Patient: Jose D Dickens : 1960 Note Type: Dialysis Rounds-Basic Service Date: 11/06/2024 This patient was personally seen for a basic visit as part of routine monthly dialysis care for end stage renal disease. Attending Lineman Apprentice: TEENA DUNBAR Dialysis Location: [facility] Schedule: Shift: 1 ADEQUACY ASSESSMENT Kt/V, Natural Log 1.26 (09/30/24) 1.26 (09/02/24) UREA REDUCTION RATIO (%) 67 (09/30/24) 66 (09/02/24) BUN 54 (09/30/24) 53 (09/02/24) BUN Post Dialysis 18 (09/30/24) 18 (09/02/24) Creatinine 11.14 (09/30/24) 11.08 (09/02/24) Bicarbonate (CO2) 25 (09/30/24) 26 (09/02/24) Sodium 138 (09/30/24) 139 (09/02/24) ANEMIA ASSESSMENT Hgb 10.8 (09/30/24) 10.7 (09/16/24) 10.4 (09/02/24) Iron Saturation (TSat) 33 (09/30/24) 53 (09/02/24) Ferritin 1,240 (09/02/24) Iron 65 (09/30/24) 95 (09/02/24) TIBC 196 (09/30/24) 181 (09/02/24) MCV 99.4 (09/30/24) 97.2 (09/02/24) Platelets 128 (09/30/24) 153 (09/02/24) BMM ASSESSMENT Calcium, Adjusted Total 8.9 09/30/24 9.0 09/11/24 8.3 09/02/24 Calcium 8.9 09/30/24 9.0 09/11/24 8.3 09/02/24 Phosphorus, Serum 5.8 10/05/24 6.3 09/30/24 4.7 09/02/24 Ca*PO4 56.1 09/30/24 39.0 09/02/24 Magnesium 2.0 09/30/24 2.2 09/02/24 Alkaline Phosphatase 83 09/30/24 92 09/02/24 NUTRITION ASSESSMENT Albumin 4.7 09/30/24 4.8 09/11/24 4.4 09/02/24 Potassium 4.0 10/07/24 4.2 09/30/24 4.0 09/20/24 ADDITIONAL LABS White Blood Cells 8.1 (09/30/24) 6.0 (09/02/24) ADDITIONAL COMMENT COMMENTS: 09/30/24 doing ok except for legs, has f/u vasc 10/12/24 stable 10/20/24 no new issues 10/30/23 stable 11/06/24 cont leg pains--has f/u vasc 07/01/24 stable 07/10/24 no new issues 07/22/24 doing well 07/29/24 no new issues 08/05/24 stable 08/12/24 no new issues 08/21/24 stable 09/04/24 doing well no new issues 09/22/24 stable, c/o leg pain and has f/u vasc [facility] 10/07/24 stable Signed by: TEENA DUNBAR MD on 11/10/2024 at 12:14:42 AM Transcribed by: TEENA DUNBAR MD on 11/10/2024 at 12:14:42 AM documented in this encounter Plan of Treatment Not on file documented as of this encounter Visit Diagnoses Not on filedocumented in this encounter Care Teams Freight Elevator Operator Relationship Specialty Start Date End Date Nuvia Crook NP [address] [place] [id number] PCP - General Nurse Practitioner 10/16/21 documented as of this encounter
--- OUTSIDE RECORDS SUMMARY | 2024-11-24 08:52 | XMS_ITS | Clinical Summary ---
Author Organization [facility] Address [address] [place] [address] Phone Care Team Providers Care Certified Appliance Service Technician Name Role Phone Nuvia Crook NP Primary Care Provider Unavailabl e Allergies No known active allergies Medications aspirin (ST CARMELA) 81 MG EC tablet Take 1 tablet by mouth 1 (one) time each day Active carvedilol (COREG) 25 MG tablet Take 1 tablet by mouth 2 (two) times a day Active NIFEdipine CC (ADALAT CC) 30 MG 24 hr tablet Take 4 tablets by mouth at bed time Active OXcarbazepine (TRILEPTAL) 300 MG tablet Take 1 tablet by mouth 2 (two) times a day Active sertraline (ZOLOFT) 100 MG tablet Take 200 mg by mouth 1 (one) time each day Active insulin aspart (NovoLOG FLEXPEN) 100 UNIT/ML injection Active zolpidem (AMBIEN) 10 MG tablet Take 10 mg by mouth at bed time 1 Active atorvastatin (LIPITOR) 80 MG tablet Take 1 tablet by mouth at bed time Active Toujeo Max SoloStar 300 UNIT/ML solution pen-injector Inject 50 Units under the skin 1 (one) time each day 1 Active gabapentin (NEURONTIN) 600 MG tablet Take 0.5 tablets (300 mg total) by mouth 2 (two) times a day 120 tablet 2 1 Active Additional Information Patient taking differently: 600 mgOralNightly, Reported on 05/01/2022 Flovent HFA 220 MCG/ACT inhaler 1 Active Albuterol Sulfate 108 (90 Base) MCG/ACT aerosol powder Inhale Activ e doxazosin (CARDURA) 2 MG tablet Take 2 mg by mouth 1 (one) time each day Active isosorbide mononitrate (IMDUR) 30 MG 24 hr tablet Take 60 mg by mouth 1 (one) time each day Do not crush or chew. Active Cholecalciferol (Vitamin D3) 25 MCG tablet Take 2 tablets by mouth every morning 2 Active clindamycin (CLEOCIN) 300 MG capsule Take 1 capsule by mouth every 6 (six) hours 2 Active ibuprofen (ADVIL,MOTRIN) 800 MG tablet Take 800 mg by mouth in the morning and 800 mg at noon and 800 mg in the evening. Take with meals. 2 Active Vascepa 1 g capsule Take 2 capsules by mouth 2 (two) times a day 2 Active losartan (COZAAR) 50 MG tablet Take 1 tablet by mouth 1 (one) time each day 2 Active omeprazole (PriLOSEC) [address] capsule Take 1 capsule by mouth 1 (one) time each day 2 Active perphenazine 2 MG tablet Take 1 tablet by mouth in the morning and 1 tablet in the evening. 2 Active traMADol (ULTRAM) 50 MG tablet Take 2 tablets by mouth every 8 (eight) hours if needed 2 Active triamcinolone (KENALOG) 0.5 % cream APPLY TO THE AFFECTED AREA(S) SPARINGLY TWICE DAILY FOR 2 WEEKS 2 Active torsemide (DEMADEX) 20 MG tablet Take 20 mg by mouth 2 in the morning 2 at night 022 Discontin ued(Dupli ben order (does not appear on AVS)) Active Problems Problem Noted Date Diagnosed Date End stage renal disease 12/30/2021 Stage 5 chronic kidney disease 09/11/2021 Chronic kidney disease, stage 4 (severe) 021 End stage renal disease 01/23/2021 Type 2 diabetes mellitus wit h diabetic chronic kidney disease 01/23/2021 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 01/23/2021 Hypertensive urgency 12/29/2020 Proteinuria 12/29/2020 Renal osteodystrophy 12/29/2020 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 0 12/29/2020 Resolved Problems Problem Noted Date Diagnosed Date Resolved Date Chronic kidney disease, stage 4 (severe) 03/02/2021 05/29/2021 Chronic kidney disease stage 4 12/29/2020 05/29/2021 Dependence on renal dialysis 12/29/2020 12/29/2020 End stage renal disease 12/29/2020 03/0 01/2021 Essential hypertension 12/29/202005/29 Hypertensive heart disease [facility] congestive heart failure 12/29/2020 05/29/2021 Morbid obesity 12/29/2020 05/29/2021 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/29/2020 05/29/2021 Sleep apnea 12/29/2020 05/29/2021 Type 2 diabetes mellitus 12/29/202011/2020 Encounters Date Type Department Care Team Description 11/06/2024 Treatment [facility] [address] [address] Renard Ritchie MD 10/30/2024 Treatment [facility] [address] [address] Renard Ritchie MD 10/20/2024 Treatment [facility] [address] [address] Renard Ritchie MD 10/12/2024 Treatment [facility] [address] [address] Renard Ritchie MD 10/07/2024 Treatment [facility] [address] [address] Renard Ritchie MD 09/30/2024 Treatment [facility] [address] [address] Renard Ritchie MD 09/22/2024 Treatment [facility] [address] [address] Renard Ritchie MD 09/14/2024 Treatment [facility] [address] [address] Renard Ritchie MD 09/12/2024 Treatment [facility] [address] [address] Renard Ritchie MD 09/11/2024 Treatment [facility] [address] [address] Renard Ritchie MD 09/04/2024 Treatment [facility] [address] [address] Renard Ritchie MD 09/02/2024 Orders Only [facility] [address] [address] Renard Ritchie MD from Last 3 Months Immunizations Name Administration Dates Next Due H1N1 Inj 10/03/2016 Family History Medical History Relation Comments Diabetes Mother Hypertension Mother Cancer Sibling Relation Status Comments Father Mother Alive Sibling Social History Tobacco Use Types Packs/Day Years [...] on file Sexual Orientation Not on file Last Filed Vital Signs Vital Sign Reading Time Taken Comments Blood Pressure 96/52 05/01/2022 11:18 AM EDT Pulse 62 09/11/2021 2:59 PM EST Temperature - - Respiratory Rate - - Oxygen Saturation 95% 09/11/2021 2:59 PM EST Inhaled Oxygen Concentration - - Weight 109 kg (240 lb) 05/01/2022 11:18 AM EDT Height 180.3 cm (5' 11 ) 12/22/2019 12:00 PM EST Body Mass Index 33.47 12/22/2019 12:00 PM EST Plan of Treatment Health Maintenance Due Date Last Done Comments Pneumococcal Vaccine: Pediat rics (0 to 5 Years) and At-Risk Patients (6 to 64 Years) (1 of 2 - PCV) 1966 Hepatitis B Vaccine (1 of 5 - Risk Dialysis 4-dose series) 1980 Colorectal Cancer Screening: Annual FOBT 2009 Colorectal Cancer Screening: Colonoscopy 2009 Colorectal Cancer Screening: Sigmoidoscopy 2009 Diabetes: Hemoglobin A1C 11/28/2020 09/14/2019 Diabetes: Ophthalmology Exam 11/28/2020 Diabetes: Pedal Pulse Checked 11/28/2020 Diabetes: Sensory Foot Exam 11/28/2020 Diabetes: Visual Foot Exam 11/28/2020 Influenza Vaccine (#1) 2024 Procedures Procedure Name Priority Date/Time Associated Diagnosis Comments LIH () Routine 10/07/2024 3:00 AM EST POTASSIUM Routine 10/07/2024 3:00 AM EST PHOSPHATE ( PHOSPHORUS) Routine 10/05/2024 3:00 AM EST LIH () Routine 10/05/2024 3:00 AM EST TRANSFERRIN SATURATION Routine 3:00 AM EST PROTEIN, TOTAL, SERUM Routine 09/30/2024 3:00 AM EST MAGNESIUM Routine 09/30/2024 3:00 AM EST ELECTROLYTE PANEL Routine 09/30/2024 3:0 0 AM EST GLUCOSE, RANDOM Routine 09/30/2024 3:00 AM EST LIH (HC) Routine 09/30/2024 3:00 AM EST LACTATE DEHYDROGENASE Routine 09/30/2024 3:00 AM EST BILIRUBIN, TOTAL Routine 09/30/2024 3:00 AM EST CREATININE, SERUM Routine 09/30/2024 3:0 0 AM EST ALT Routine 09/30/2024 3:00 AM EST AST Routine 09/30/2024 3:00 AM EST ALKALINE PHOSPHATASE Routine 09/30/2024 3:00 AM EST CALCIUM PHOSPHORUS PRODUCT, ADJUSTED (HC) Routine 09/30/2024 3:00 AM EST HEPATITIS B SURFACE ANTIGEN W/REFL CONFIRM Routine 09/30/2024 3:00 AM EST KT/V NATURAL LOG, URR (HC) Routine 09/30/2024 3:00 AM EST CBC AND DIFFERENTIAL Routine 09/30/2024 3:00 AM EST LIH (HC) Routine 09/20/2024 3:00 AM EST POTASSIUM Routine 09/20/2024 3:00 AM EST HEMOGLOBIN Routine 09/16/2024 3:00 AM EST LIH (HC) Routine 09/16/2024 3:00 AM EST POTASSIUM Routine 09/16/2024 3:00 AM EST LIH (HC) Routine 09/11/2024 3:00 AM EST CALCIUM, ADJUSTED W ALBUMIN Routine 09/11/2024 3:00 AM EST LIH (HC) Routine 09/09/2024 3:00 AM EST POTASSIUM Routine 09/09/2024 3:00 AM EST FERRITIN Routine 09/02/2024 3:00 AM EST PROTEIN, TOTAL, SERUM Routine 09/02/2024 3:00 AM EST TRANSFERRIN SATURATION Routine 3:00 AM EST MAGNESIUM Routine 09/02/2024 3:00 AM EST ELECTROLYTE PANEL Routine 09/02/2024 3:0 0 AM EST LIH (HC) Routine 09/02/2024 3:00 AM EST LACTATE DEHYDROGENASE Routine 09/02/2024 3:00 AM EST GLUCOSE, RANDOM Routine 09/02/2024 3:00 AM EST CREATININE, SERUM Routine 09/02/2024 3:0 0 AM EST BILIRUBIN, TOTAL Routine 09/02/2024 3:00 AM EST AST Routine 09/02/2024 3:00 AM EST ALT Routine 09/02/2024 3:00 AM EST CALCIUM PHOSPHORUS PRODUCT, ADJUSTED (HC) Routine 09/02/2024 3:00 AM EST ALKALINE PHOSPHATASE Routine 09/02/2024 3:00 AM EST HEPATITIS B SURFACE ANTIGEN W/REFL CONFIRM Routine 09/02/2024 3:00 AM EST CBC AND DIFFERENTIAL Routine 09/02/2024 3:00 AM EST KT/V NATURAL LOG, URR (HC) Routine 09/02/2024 3:00 AM EST HEMOGLOBIN A1C Routine 09/14/2019 9:05 AM EST from Last 3 Months or Most Recently Relevant to Health Maintenance Results * (ABNORMAL) LIH (10/07/2024 3:00 AM EST) Only the most recent of8 resultswithin the time period is included. [facility] Lipemia ++(A) Normal [facility] Icterus Normal Normal [facility] Hemolysis Normal Normal [facility] 10/07/2024 3:00 AM EST 10/08/2024 1:45 PM EST us Renard Ritchie MD LAB [id number] SOLICITED RESULTS Final Result Performing Organization Address [facility] de Phone Number APS [facility] [address] [place] [address] * Potassium (10/07/2024 3:00 AM EST) Only the most recent of4 resultswithin the time period is included. [facility] Potassium 4.0 3.4 - 5.0 mEq/L [facility] 10/07/2024 3:00 AM EST 10/08/2024 1:45 PM EST Renard Ritchie MD LAB BLOOD ORDERABLES Final Re sult Performing Organization Address [facility] de Phone Number APS [facility] [address] [place] [address] * (ABNORMAL) Phosphorus (10/05/2024 3:00 AM EST) [facility] Phosphorus, Serum 5.8(H) 2.5 - 5.0 mg/dL [facility] 10/05/2024 3:00 AM EST 10/06/2024 1:25 PM EST Renard Ritchie MD LAB BLOOD ORDERABLES Final Re sult Performing Organization Address [facility] de Phone Number [facility] [address] [place] [address] * (ABNORMAL) Kt/V Natural Log, URR (09/30/2024 3:00 AM EST) Only the most recent of2 resultswithin the time period is included. [facility] Treatment Time 232 min [facility] Pre-Weight, lb 99.5 kg [facility] Post-Weight, lb 97.3 kg [facility] Ultrafiltration Rate 6 <=13 mL/kg/hr [facility] Comment: Recommend achieving Ultrafiltration Rate (UFR) <=10 mL/kg/hr References: Kei BOOKER et al. Kidney Int. 2010; 79(2):250-257 BUN 54(H) 7 - 25 mg/dL [facility] BUN Post Dialysis 18 7 - 25 mg/dL [facility] UREA REDUCTION RATIO (%) 67 >=65 % [facility] Kt/V Natural Log 1.26 >=1.2 [facility] 09/30/2024 3:00 AM EST 10/01/2024 3:23 PM EST Renard Ritchie MD LAB [id number] SOLICITED RESULTS Final Result Performing Organization Address City/[facility] Co de Phone Number [facility] [address] [place] [address] * (ABNORMAL) Calcium Phosphorus Product, Adjusted (09/30/2024 3:00 AM EST) Only the most recent of2 resultswithin the time period is included. Albumin 4.7 3.6 - 5.4 g/dL [facility] Calcium 8.9 8.6 - 10.3 mg/dL [facility] Phosphorus, Serum 6.3(H) 2.5 - 5.0 mg/dL [facility] Ca*PO4 56.1(A) <55.0 mg2/dL2 [facility] Calcium, Adjusted Total 8.9 8.6 - 10.3 mg/dL [facility] CA*PO4 CORRCTD 56.1(A) <55.0 mg2/dL2 [facility] 09/30/2024 3:00 AM EST 10/01/2024 3:23 PM EST Renard Ritchie MD LAB [id number] SOLICITED RESULTS Final Result Performing Organization Address City/[facility] Co de Phone Number [facility] [address] [place] [address] * Hepatitis B Surface Ag w/Reflex Confirmation (09/30/2024 3:00 AM EST) Only the most recent of2 resultswithin the time period is included. Hep B Surface Antigen Negative Negative [facility] 09/30/2024 3:00 AM EST 10/01/2024 3:23 PM EST Renard Ritchie MD LAB BLOOD ORDERABLES Final Re sult Performing Organization Address [facility] de Phone Number [facility]PS [facility] [address] [place] [address] * (ABNORMAL) TSAT (09/30/2024 3:00 AM EST) Only the most recent of2 resultswithin the time period is included. [facility] Iron 65 65 - 175 ug/dL [facility] Transferrin 140(L) 215 - 365 mg/dL [facility] TIBC 196(L) 211 - 406 ug/dL [facility] Iron Saturation (TSat) 33 22 - 52 % [facility] 09/30/2024 3:00 AM EST 10/01/2024 3:23 PM EST Renard Ritchie MD LAB BLOOD ORDERABLES Final Re sult Performing Organization Address [facility] de Phone Number [facility] [address] [place] [address] * (ABNORMAL) CBC and Differential (09/30/2024 3:00 AM EST) Only the most recent of2 resultswithin the time period is included. [facility] DIFFERENTIAL MANUAL, 2 Not Indicated [facility] White Blood Cells 8.1 4.2 - 9.1 K/uL [facility] RBC 3.08(L) 4.63 - 6.08 M/uL [facility] Hgb 10.8(L) 13.7 - 17.5 g/dL [facility] Hemoglobin x 3 32.4(L) 41.1 - 52.5 g/dL [facility] Hematocrit 30.6(L) 40.1 - 51.0 % [facility] MCV 99.4(H) 79.0 - 92.2 fL [facility] MCH 35.1(H) 25.7 - 32.2 pg [facility] MCHC 35.3 32.3 - 36.5 g/dL [facility] Platelets 128(L) 163 - 337 K/uL [facility] RDW 13.6 11.6 - 14.4 % [facility] Neutrophils Relative 69.7(H) 34.0 - 67.9 % [facility] Lymphocytes Relative 20.3(L) 21.8 - 53.1 % [facility] Monocytes 5.4 5.3 - 12.2 % [facility] Eosinophils Relative 3.5 0.8 - 7.0 % [facility] Basophils Relative 0.6 0.2 - 1.2 % [facility] Immature Granulocytes 0.5 0.0 - 1.0 % [facility] 09/30/2024 3:00 AM EST 10/01/2024 3:31 PM EST Renard Ritchie MD LAB BLOOD ORDERABLES Final Re sult Performing Organization Address [facility] Co de Phone Number [facility] [address] [place] [address] * ALT (09/30/2024 3:00 AM EST) Only the most recent of2 resultswithin the time period is included. ALT (SGPT) 24 10 - 49 U/L [facility] 09/30/2024 3:00 AM EST 10/01/2024 3:23 PM EST Renard Ritchie MD LAB BLOOD ORDERABLES Final Re sult Performing Organization Address [facility] de Phone Number [facility] [address] [place] [address] * AST (09/30/2024 3:00 AM EST) Only the most recent of2 resultswithin the time period is included. AST (SGOT) 17 <34 U/L [facility] 09/30/2024 3:00 AM EST 10/01/2024 3:23 PM EST Renard Ritchie MD LAB BLOOD ORDERABLES Final Re sult Performing Organization Address [facility] Co de Phone Number [facility] [address] [place] [address] * Protein, total (09/30/2024 3:00 AM EST) Only the most recent of2 resultswithin the time period is included. Total Protein 8.0 6.4 - 8.9 g/dL [facility] 09/30/2024 3:00 AM EST 10/01/2024 3:23 PM EST Renard Ritchie MD LAB BLOOD ORDERABLES Final Re sult Performing Organization Address [facility] de Phone Number [facility] [address] [place] [address] * Alkaline phosphatase (09/30/2024 3:00 AM EST) Only the most recent of2 resultswithin the time period is included. Alkaline Phosphatase 83 46 - 116 U/L [facility] 09/30/2024 3:00 AM EST 10/01/2024 3:23 PM EST Renard Ritchie MD LAB BLOOD ORDERABLES Final Re sult Performing Organization Address [facility] de Phone Number [facility] [address] [place] [address] * Magnesium (09/30/2024 3:00 AM EST) Only the most recent of2 resultswithin the time period is included. Magnesium 2.0 1.9 - 2.7 mg/dL [facility] 09/30/2024 3:00 AM EST 10/01/2024 3:23 PM EST Renard Ritchie MD LAB BLOOD ORDERABLES Final Re sult Performing Organization Address [facility] de Phone Number [facility] [address] [place] [address] * Lactate dehydrogenase (09/30/2024 3:00 AM EST) Only the most recent of2 resultswithin the time period is included. LDH 160 120 - 246 U/L [facility] 09/30/2024 3:00 AM EST 10/01/2024 3:23 PM EST us Renard Ritchie MD LAB BLOOD ORDERABLES Final Re sult Performing Organization Address [facility] Co de Phone Number [facility] [address] [place] [address] * (ABNORMAL) Glucose, random (09/30/2024 3:00 AM EST) Only the most recent of2 resultswithin the time period is included. Glucose 120(H) 74 - 109 mg/dL [facility] 09/30/2024 3:00 AM EST 10/01/2024 3:23 PM EST us Renard Ritchie MD LAB BLOOD ORDERABLES Final Re sult Performing Organization Address [facility] de Phone Number [facility] [address] [place] [address] * (ABNORMAL) Creatinine, serum (09/30/2024 3:00 AM EST) Only the most recent of2 resultswithin the time period is included. Creatinine 11.14(H) 0.70 - 1.30 mg/dL [facility] 09/30/2024 3:00 AM EST 10/01/2024 3:23 PM EST Result Lizett Ritchie MD LAB BLOOD ORDERABLES Final Re sult Performing Organization Address [facility] de Phone Number [facility] [address] [place] [address] * (ABNORMAL) Bilirubin, total (09/30/2024 3:00 AM EST) Only the most recent of2 resultswithin the time period is included. Total Bilirubin 0.2(L) 0.3 - 1.2 mg/dL [facility] 09/30/2024 3:00 AM EST 10/01/2024 3:23 PM EST us Renard Ritchie MD LAB BLOOD ORDERABLES Final Re sult Performing Organization Address [facility] de Phone Number [facility] [address] [place] [address] * (ABNORMAL) Electrolyte panel (09/30/2024 3:00 AM EST) Only the most recent of2 resultswithin the time period is included. Sodium 138 136 - 145 mEq/L [facility] Potassium 4.2 3.4 - 5.0 mEq/L [facility] Chloride 97(L) 98 - 107 mEq/L [facility] Bicarbonate (CO2) 25 21 - 31 mEq/L [facility] Anion Gap 16(H) 3 - 14 mEq/L [facility] 09/30/2024 3:00 AM EST 10/01/2024 3:23 PM EST Renard Ritchie MD LAB BLOOD ORDERABLES Final Re sult Performing Organization Address [facility] de Phone Number [facility] [address] [place] [address] * (ABNORMAL) Hemoglobin (09/16/2024 3:00 AM EST) Hgb 10.7(L) 13.7 - 17.5 g/dL [facility] Hemoglobin x 3 32.1(L) 41.1 - 52.5 g/dL [facility] 09/16/2024 3:00 AM EST 09/17/2024 12:29 PM EST Renard Ritchie MD LAB BLOOD ORDERABLES Final Re sult Performing Organization Address [facility] de Phone Number [facility] [address] [place] [address] * Calcium, Adjusted w Albumin (09/11/2024 3:00 AM EST) Calcium 9.0 8.6 - 10.3 mg/dL [facility] Albumin 4.8 3.6 - 5.4 g/dL [facility] Calcium, Adjusted Total 9.0 8.6 - 10.3 mg/dL [facility] 09/11/2024 3:00 AM EST 09/12/2024 12:55 PM EST Renard Ritchie MD LAB BLOOD ORDERABLES Final Re sult Performing Organization Address [facility] Co de Phone Number [address] [address] * (ABNORMAL) Ferritin (09/02/2024 3:00 AM EST) Ferritin 1,240(H) 22 - 322 ng/mL [facility] 09/02/2024 3:00 AM EST 09/03/2024 5:49 PM EST Renard Ritchie MD LAB BLOOD ORDERABLES Final Re sult Performing Organization Address [facility] de Phone Number [facility] [address] [place] [address] * Hemoglobin A1c (09/14/2019 9:05 AM EST) Hemoglobin A1C 8.2 % MEENAKSHI Comment: ?Hemoglobin A1C Reference Range ? Adults: ??4.8 - 6.0 % ? Non diabetic: ??< 6.0 % ? Goal: ??< 7.0 % Additional Action Suggested: ??> 8.0 % Note: ??Hemoglobin A1c results are invalid for patients ? with abnormal amounts of HbF. ??Blood transfusions ? may impact the HbA1c concentration in the patient ? sample. Estimated Average Glucose 189 MG/DL MEENAKSHI Comment: eAG = Estimated average glucose which is %A1C expressed as average glucose, using the formula of the Z0Z-Nloodlk Average Glucose study (ADAG), Diabetes Care, Vol.31,#8, 2007 09/14/2019 9:05 AM EST us Gonzalez Hillman SUPERVISOR PRODUCTION DEPARTMENT LAB BLOOD ORDERABLES Final R esult MEENAKSHI from Last 3 Months or Most Recently Relevant to Health Maintenance [place] [address] [place] [address] ([id number]) ([id number]) Care Teams Certified Appliance Service Technician Relationship Specialty Start Date End Date Nuvia Crook NP [address] [place] [id number] PCP - General Nurse Practitioner 10/16/21
--- OUTSIDE RECORDS SUMMARY | 2024-11-24 08:52 | XMS_ITS | Encounter Summary ---
Author Organization [facility] Address [address] [facility] [address] [place] [address] Phone Care Team Providers Care Vice President Client Services Name Role Phone Nuvia Crook NP Primary Care Provider Mell castellano Encounter Details Date Type Department Care Team (Late st Contact Info) Description 10/30/2024 Treatment [facility] [address] [address] Teena Dunbar MD [address] [address] Social History Tobacco Use Types [...] Dialysis Note - Teena Dunbar MD - 10/30/2024 12:00 AM EST Patient: Jose D Dickens : 1960 Note Type: Dialysis Rounds-Comp Service Date: 10/30/2024 This patient was personally seen for a complete visit as part of routine monthly dialysis care for end stage renal disease. Attending Industrial Welder: TEENA DUNBAR MD Dialysis Location: [facility] Schedule: Shift: 1 ADEQUACY ASSESSMENT Kt/V, [...] stable 10/20/24 no new issues 10/30/23 stable 07/01/24 stable 07/10/24 no new issues 07/22/24 doing well 07/29/24 no new issues 08/05/24 stable 08/12/24 no new issues 08/21/24 stable 09/04/24 doing well no new issues 09/22/24 stable, c/o leg pain and has f[place] [place]07[place]24 stable Signed by: TEENA DUNBAR MD on 10/31/2024 at 03:09:36 AM Transcribed by: TEENA DUNBAR MD on 10/31/2024 at 03:09:36 AM documented in this encounter Plan of Treatment Not on file documented as of this encounter Visit Diagnoses Not on filedocumented in this encounter Care Teams Vice President Client Services Relationship Specialty Start Date End Date Nuvia Crook NP [address] [place] [address] PCP - General Nurse Practitioner 10/16/21 documented as of this encounter
[2024-11-24 09:03] VITALS: BP 152/60
== END 2024-11-24 09:11 | disposition home or self-care (01) ==
PROVIDERS: PCP Nurse Practitioner Primary Care; Visit Provider Physician Assistant Medical
DX: E11.22 Type 2 diabetes mellitus with diabetic chronic kidney disease (principal); N18.6 End stage renal disease; Z79.4 Long term (current) use of insulin; Z99.2 Dependence on renal dialysis; I12.0 Hypertensive chronic kidney disease with stage 5 chronic kidney disease or end stage renal disease; E11.649 Type 2 diabetes mellitus with hypoglycemia without coma

== ENCOUNTER → 2024-11-24 08:32 | Outpatient (BNVA) | payer OTHER, SELFPAY | PROVIDERS: PCP Nurse Practitioner Primary Care; Visit Provider Physician Assistant Medical | DX: E11.22 Type 2 diabetes mellitus with diabetic chronic kidney disease (principal); E11.40 Type 2 diabetes mellitus with diabetic neuropathy, unspecified; E11.29 Type 2 diabetes mellitus with other diabetic kidney complication; E11.649 Type 2 diabetes mellitus with hypoglycemia without coma; I12.9 Hypertensive chronic kidney disease with stage 1 through stage 4 chronic kidney disease, or unspecified chronic kidney disease; N18.6 End stage renal disease; Z99.2 Dependence on renal dialysis; Z79.4 Long term (current) use of insulin; Z79.899 Other long term (current) drug therapy | CPT/HCPCS: 82947; 83036; 99212 ==

== ENCOUNTER 2024-12-01 15:01 | Outpatient (REF) | payer OTHER, SELFPAY ==
--- OUTSIDE RECORDS SUMMARY | 2024-12-01 15:04 | XMS_ITS | Encounter Summary ---
Author Organization [id number] Address [address] [facility] 7t [place] [address] Care Team Providers Care Chain Puller Name Role Phone Nuvia Crook Primary Care Provider [phone] Renard Ritchie MD Unavailable Eliecer Bob MD Unavailable Albert Galaviz MD Unavailable [phone] Reason for Visit * Reason Onset Date Comments Medication Reaction 11/26/2024 Encounter Details Date Type Department Care Team ([facility] st Contact Info) Description 11/26/2024 Telephone [facility] [address] [place], [place] [phone] Nuvia Crook ANP [address] [place], [place] [phone] Medication Reaction Social History Tobacco Use Types Packs/Day Years Used Date Smoking Tobacco: Former Cigarettes 2022 Passive Smoke Exposure: Never Smokeless Tobacco: Never Alcohol Use Standard Drinks/Week Comments Never 0 (1 standard drink = 0.6 oz pur e alcohol) Depression Answer Date Recorded Patient Health Questionnaire-9 Score 0 09/10/2024 Patient Health Questionnaire-9 Score 0 09/10/2024 Last PHQ-9: Questionnaire Data Not on file 1 11/10/2023 Housing Stability Answer Date Recorded What is your housing situation today? I have blue abdullahi 09/10/[address] you li ve. Do you have problems with any of the following? None of the above 09/10/2024 Food Insecurity Answer Date Recorded Within the past 12 months, y ou worried that your food would run out before you got money to buy more: Never True 09/10/2024 Within the past 12 months,th e food you bought just didn't last and you didn't have enough money to get more: Never True Transportation Answer Date Recorded In the past 12 months, has l ack of transportation kept you from medical appts, meetings, work or from getting things needed for daily living? No 09/10/2024 Utilities Answer Date Recorded In the past 12 months, has t he electric, gas, oil or water company threatened to shut off services in your home? No 09/10/2024 Depression Answer Date Recorded Patient Health Questionnaire-2 Score 0 09/10/2024 Internet Access Answer Date Recorded Internet Access Q1 Yes 09/10/2024 Internet Access Q2 Not on file 09/10/2024 Sex and Gender Information Value Date Recorded Sex Assigned at Male 08/27/2022 10:16 AM EDT Legal Sex Male 10:16 AM EDT Gender Identity Male 08/27/2022 10:16 AM EDT Sexual Orientation Straight 08/27/2022 10 :16 AM EDT documented as of this encounter Miscellaneous Notes * Telephone Encounter - Tracie Montoya RN - 11/27/2024 1:17 PM EST TC placed to pt in regards to the request for alternative pain medication for chronic osteoarthritis of the right knee. Pt has been using the prescribed hydromorphone (Dilaudid) 2 MG tablets but has found oxycodone to be more effective. Pt was prescribed this during last hospital visit on 11/18/2024. Pt advised to discuss these concerns during telephone appt with Nuvia Crook on Saturday11/30/2024. Pt agreeable to this plan and stated understanding. * Telephone Encounter - Tracie Montoya RN - 11/26/2024 4:05 PM EST TC placed to pt but no VM box was set up yet and unable to leave a message. Will postpone until Monday 11/27 for attempt * Telephone Encounter - Cecelia Massey - 11/26/2024 8:48 AM EST PT walked in stating that he has been prescribed HYDROmorphone for pain and it has not helped him whatsoever. He was currently hospitalized and was given Oxycodone 10MG. Which PT is stating has worked miraculously in relieving his pain. PT would like PCP to continue to Prescribe Oxycodone 10MG which is the only thing that has helped his pain to go away. documented in this encounter Plan of Treatment Upcoming Encounters Date Type Department Care Team (Late st Contact Info) Description 01/04/2025 11:00 AM EDT Telemedicine [facility] [address] [place] [address] Nuvia Crook ANP [address] [place] [address] 03/29/2025 9:30 AM EDT Telemedicine [facility] PEDS [address] [place] [address] Lynn Armijo, RN 505 [place] [address] documented as of this encounter Visit Diagnoses Not on filedocumented in this encounter Additional Health Concerns Assessment Noted Time PHQ-9 Depression Total Score: 0 09/10/20 24 9:05 AM EST documented as of this encounter Care Teams Chain Puller Relationship Specialty Start Date End Date Nuvia Crook ANP [address] [place] [address] PCP - General Family Medicine 06/21/20 Renard Ritchie MD [address] [facility] 200 [place] [address] Nephrology 10/13/24 Eliecer Bob MD [address] [place] [address] Endocrinology 10/13/24 Albert Galaviz MD 5[address] [place] [address] Cardiology 10/13/24 documented as of this encounter
--- OUTSIDE RECORDS SUMMARY | 2024-12-01 15:04 | XMS_ITS | Encounter Summary ---
Author Organization [facility] Address [address] [address] Phone Care Team Providers Care Managing Manager Name Role Phone Nuvia Crook NP Primary Care Provider Unavailtiti e Encounter Details Date Type Department Care Team (Late st Contact Info) Description 11/27/2024 Treatment [facility] [address] [address] Teean Ritchie MD [address] [address] Social History Tobacco Use Types [...] Miscellaneous Notes * Dialysis Note - Teena Ritchie MD - 11/27/2024 12:00 AM EST Patient: Jose D Dickens : 1960 Note Type: Dialysis Rounds-Basic Telehealth Service Date: 11/27/2024 Telehealth encounter using audiovisual technology, performed according to state requirements. Appropriate patient consent obtained. This patient was personally seen for a basic visit as part of routine monthly dialysis care for end stage renal disease. Attending Veterinary Technician Instructor: TEENA RITCHIE Dialysis Location: [facility] Schedule: Shift: 1 ADEQUACY ASSESSMENT [...] stable 11/06/24 cont leg pains--has f/u vasc 11/20/24 stable 11/27/24 stable 07/01/24 stable 07/10/24 no new issues 07/22/24 doing well 07/29/24 no new issues 08/05/24 stable 08/12/24 no new issues 08/21/24 stable 09/04/24 doing well 11: no new issues 09/22/24 stable, c/o leg pain and has f/u vasc [facility] 10/07/24 stable Signed by: TEENA RITCHIE MD on 11/27/2024 at 07:50:54 PM Transcribed by: TEENA RITCHIE MD on 11/27/2024 at 07:50:54 PM documented in this encounter Plan of Treatment Not on file documented as of this encounter Visit Diagnoses Not on filedocumented in this encounter Care Teams Managing Manager Relationship Specialty Start Date End Date Nuvia Crook NP [address] [place] [address] PCP - General Nurse Practitioner 10/16/21 documented as of this encounter
--- OUTSIDE RECORDS SUMMARY | 2024-12-01 15:04 | XMS_ITS | Encounter Summary ---
Author Organization [facility] Address [address] [address] Phone Care Team Providers Care Aircraft Machinist Name Role Phone Nuvia Crook NP Primary Care Provider Unavailtiti e Encounter Details Date Type Department Care Team (Late st Contact Info) Description 11/20/2024 Treatment [facility] [address] [address] Teena Ritchie MD [address] [address] Social History Tobacco Use Types [...] Dialysis Note - Teena Ritchie MD - 11/20/2024 12:00 AM EST Patient: Jos eD Dickens : 1960 Note Type: Dialysis Rounds-Basic Telehealth Service Date: 11/20/2024 Telehealth encounter using audiovisual technology, performed according to state requirements. Appropriate patient consent obtained. This patient was personally seen for a basic visit as part of routine monthly dialysis care for end stage renal disease. Attending Academic Advising Director: TEENA RITCHIE Dialysis Location: [facility] Schedule: Shift: 1 ADEQUACY ASSESSMENT Kt/V, [...] cont leg pains--has f/u vasc 11/20/24 stable 07/01/24 stable 07/10/24 no new issues 07/22/24 doing well 07/29/24 no new issues 08/05/24 stable 08/12/24 no new issues 08/21/24 stable 09/04/24 doing well 11: no new issues 09/22/24 stable, c/o leg pain and has f/u vasc [facility] 10/07/24 stable Signed by: TEENA RITCHIE MD on 11/26/2024 at 08:46:28 AM Transcribed by: TEENA RITCHIE MD on 11/26/2024 at 08:46:28 AM documented in this encounter Plan of Treatment Not on file documented as of this encounter Visit Diagnoses Not on filedocumented in this encounter Care Teams Aircraft Machinist Relationship Specialty Start Date End Date Nuvia Crook NP [address] [place] [address] PCP - General Nurse Practitioner 10/16/21 documented as of this encounter
--- OUTSIDE RECORDS SUMMARY | 2024-12-01 15:04 | XMS_ITS | Encounter Summary ---
Author Organization [facility] Address [address] [facility] [address] [facility] [address] 7t [place] [address] Care Team Providers Care Senior Network Engineer Name Role Phone Ambreen Nuvia ARSHAD Primary Care Provider [phone] Renard Ritchie MD Unavailable [phone] Eliecer Bob MD Unavailable [phone] Albert Galaviz MD Unavailable [phone] Encounter Details Date Type Department Care Team (Late st Contact Info) Description 11/24/2024 Orders Only GENERIC EXTERNAL DATA DEPARTMENT Provider, Generic External Data Social History Tobacco Use Types Packs/Day Years Used Date Smoking Tobacco: Former Cigarettes - 2022 Passive Smoke Exposure: Never Smokeless Tobacco: [...] AM EDT documented as of this encounter Plan of Treatment Upcoming Encounters Date Type Department Care Team (Late st Contact Info) Description 01/04/2025 11:00 AM EDT Telemedicine [facility] MED[facility]INE [address] [place] [address] Nuvia Crook, ANP 230 [place] [address] 03/29/2025 9:30 AM EDT Telemedicine [facility] MED & PEDS [address] [place], [place] [phone] Lynn Armijo, RN 505 [place] [address] documented as of this encounter Procedures Procedure Name Priority Date/Time Associated Diagnosis Comments GLUCOSE, WHOLE BLOOD Routine 11/24/2024 8:46 AM EST documented in this encounter Results * (ABNORMAL) Glucose, Whole Blood (11/24/2024 8:46 AM EST) Glucose, Whole Blood 125(H) 60 - 115 mg/dL [facility] Comment:METER #: [id number] Testing performed in the Endocrinology Department [address] , [address], [facility]. 11/24/2024 8:46 AM EST 11/24/2024 8:50 AM EST us Generic External Data Provider LAB BLOOD ORDERAB LES Final Result [facility] [address] [place] [address] [phone] documented in this encounter Visit Diagnoses Not on filedocumented in this encounter Additional Health Concerns Assessment Noted Time PHQ-9 Depression Total Score: 0 09/10/20 9:05 AM EST documented as of this encounter Care Teams Senior Network Engineer Relationship Specialty Start Date End Date Nuvia Crook ANP [address] [place] [address] PCP - General Family Medicine 06/21/20 Renard Ritchie MD 100 [facility] 200 [place] [address] Nephrology 10/13/24 Eliecer Bob MD [address] [place] [address] Endocrinology 10/13/24 Albert Galaviz MD [address] [place] [address] Cardiology 10/13/24 documented as of this encounter
--- OUTSIDE RECORDS SUMMARY | 2024-12-01 15:04 | XMS_ITS | Encounter Summary ---
Author Organization [employer] Address [address] [facility] [address] 7t [place] [address] Care Team Providers Care Alterations Sewer Name Role Phone Ambreen Nuvia ARSHAD Primary Care Provider Renard Ritchie MD Unavailable Eliecer Bob MD Unavailable [phone] Albert Galaviz MD Unavailable [phone] Reason for Visit * Reason Onset Date Comments Paperwork/Forms 11/10/2024 Encounter Details Date Type Department Care Team ([facility] st Contact Info) Description 11/10/2024 Telephone [facility] MEDICINE [address] [place], [place] [phone] Cristin Murray, RN [address] [place], [place] [phone] Paperwork/Forms Social History Tobacco Use Types Packs/Day Years Used Date Smoking Tobacco: Former Cigarettes 1 2022 Passive Smoke Exposure: Never Smokeless Tobacco: [...] encounter Miscellaneous Notes * Telephone Encounter - Cristin Murray RN - 11/10/2024 3:19 PM EST Received form from [facility] requesting PCP review possible med interaction between tramadol and sertraline and advise. PCP filled out. Faxed back to [facility]. documented in this encounter Plan of Treatment Upcoming Encounters Date Type Department Care Team (Late st Contact Info) Description 01/04/2025 11:00 AM EDT Telemedicine [facility] MEDICINE [address] [place] [address] Nuvia Crook ANP [address] [place] [address] 03/29/2025 9:30 AM EDT Telemedicine [facility] MED & PEDS [address] [place] [address] Lynn Armijo, RN 505 [place] [address] documented as of this encounter Visit Diagnoses Not on filedocumented in this encounter Additional Health Concerns Assessment Noted Time PHQ-9 Depression Total Score: 0 09/10/20 24 9:05 AM EST documented as of this encounter Care Teams Alterations Sewer Relationship Specialty Start Date End Date Nuvia Crook ANP [address] [place] [address] PCP - General Family Medicine 06/21/20 Renard Ritchie MD 100 [facility] 200 [place] [address] Nephrology 10/13/24 Eliecer Bob MD [address] [place] [address] Endocrinology 10/13/24 Albert Galaviz MD [address] [place] [address] Cardiology 10/13/24 documented as of this encounter
--- OUTSIDE RECORDS SUMMARY | 2024-12-01 15:04 | XMS_ITS | Encounter Summary ---
Author Organization [facility] Address [address] [facility] 204 [place] [address] Phone Care Team Providers Care Program Paraprofessional Name Role Phone Nuvia Crook NP Primary Care Provider Mell castellano Encounter Details Date Type Department Care Team (Late st Contact Info) Description 11/30/2024 Treatment [facility] [address] [address] Teena Dunbar MD [address] [address] Social History Tobacco Use Types [...] Dialysis Note - Teena Dunbar MD - 11/30/2024 12:00 AM EST Patient: Jose D Dickens : 1960 Note Type: Dialysis Rounds-Comp Service Date: 11/30/2024 This patient was personally seen for a complete visit as part of routine monthly dialysis care for end stage renal disease. Attending Community Arts Worker: TEENA DUNBAR MD Dialysis Location: [facility] Schedule: Shift: 1 ADEQUACY ASSESSMENT Kt/V, [...] 8.1 (09/30/24) 6.0 (09/02/24) ADDITIONAL COMMENT COMMENTS: 11/30/24 c/o leg pain-- rusty LE angio w [facility] vasc next week 09/30/24 doing ok except for legs, has [...] c/o leg pain and has f/u vasc [facility] 10/07/24 stable Signed by: TEENA DUNBAR MD on 11/30/2024 at 09:47:10 PM documented in this encounter Plan of Treatment Not on file documented as of this encounter Visit Diagnoses Not on filedocumented in this encounter Care Teams Program Paraprofessional Relationship Specialty Start Date End Date Nuvia Crook NP [address] [place] [address] PCP - General Nurse Practitioner 10/16/21 documented as of this encounter
--- OUTSIDE RECORDS SUMMARY | 2024-12-01 15:04 | XMS_ITS | Encounter Summary ---
Author Organization [employer] Address [address] 7t [place] [address] Care Team Providers Care Internal Medicine Physician Name Role Phone Nuvia Crook Primary Care Provider [phone] Renard Ritchie MD Unavailable [phone] Eliecer Bob MD Unavailable [phone] Albert Galaviz MD Unavailable [phone] Reason for Visit * Reason Comments Med Refill Encounter Details Date Type Department Care Team (Late st Contact Info) Description 08/07/2024 Refill [facility] MED & PEDS [address] [place], [place] [phone] Name, MD David [address] [place] [address] Renal hypertension Social History Tobacco Use Types Packs/Day Years Used Date Smoking Tobacco: Former Cigarettes 2022 Passive Smoke Exposure: Never Smokeless Tobacco: Never Alcohol Use Standard Drinks/Week Comments Never 0 (1 standard drink = 0.6 oz pur e alcohol) Depression Answer Date Recorded Patient Health Questionnaire-9 Score 0 07/02/2023 Housing Stability Answer Date Recorded What is your housing situation today? I have blue abdullahi 08/12/[address] you li ve. Do you have problems with any of the following? None of the above 08/12/2023 Food Insecurity Answer Date Recorded Within the past 12 months, y ou worried that your food would run out before you got money to buy more: Never True 08/12/2023 Within the past 12 months,th e food you bought just didn't last and you didn't have enough money to get more: Never True Transportation Answer Date Recorded In the past 12 months, has l ack of transportation kept you from medical appts, meetings, work or from getting things needed for daily living? No 08/12/2023 Utilities Answer Date Recorded In the past 12 months, has t he electric, gas, oil or water company threatened to shut off services in your home? No 08/12/2023 Depression Answer Date Recorded Patient Health Questionnaire-2 Score 0 07/02/2023 Sex and Gender Information Value Date Recorded Sex Assigned at Male 08/27/2022 10:16 AM EDT Legal Sex Male 10:16 AM EDT Gender Identity Male 08/27/2022 10:16 AM EDT Sexual Orientation Straight 08/27/2022 10 :16 AM EDT documented as of this encounter Plan of Treatment Upcoming Encounters Date Type Department Care Team (Late st Contact Info) Description 01/04/2025 11:00 AM EDT Telemedicine [facility] MEDICINE [address] [place] [address] Nuvia Crook ANP [address] [place] [address] 03/29/2025 9:30 AM EDT Telemedicine [facility] MED & PEDS [address] [place] [address] Lynn Armijo, NIMISHA 505 [place] [address] documented as of this encounter Visit Diagnoses Diagnosis Renal hypertension documented in this encounter Additional Health Concerns Assessment Noted Time PHQ-9 Depression Total Score: 0 07/02/20 23 9:05 AM EDT documented as of this encounter Care Teams Internal Medicine Physician Relationship Specialty Start Date End Date Nuvia Crook ANP [address] [place] [address] PCP - General Family Medicine 06/21/20 Renard Ritchie MD 100 [facility] 200 [place] [address] Nephrology 10/13/24 Eliecer Bob MD [address] [place] [address] Endocrinology 10/13/24 Albert Galaviz MD 5[address] [place] [address] Cardiology 10/13/24 documented as of this encounter
--- OUTSIDE RECORDS SUMMARY | 2024-12-01 15:04 | XMS_ITS | Encounter Summary ---
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 End stage renal failure on dialysis (CMS/HCC) Kita Yoon ANP [address] [place] [address] Phone: tel: fax: Referral ID Status Reason Start Date Expiration Date Visits Requested Visits Authorized [id number] Pending Review Specialty Services Required 12/01/2024 12/01/2025 1 1 Reason for Visit * Reason Comments Pain Encounter Details Date Type Department Care Team ([facility] st Contact Info) Description 11/30/2024 11:00 AM EST Telemedicine [facility] MEDICINE [address] [place], [place] [phone] Kita Yoon ANP [address] [place], [place] [phone] skilled nursing (current) use of opiate analgesic (Primary Dx); Arthritis of right knee; End stage renal failure on dialysis (CMS/HCC) Social History Tobacco Use Types Packs/Day Years Used Date Smoking Tobacco: Former Cigarettes 1 2022 Passive Smoke Exposure: Never Smokeless Tobacco: Never Tobacco Cessation:Counseling Given: Not Answered Alcohol Use Standard Drinks/Week Comments Never 0 [...] AM EDT documented as of this encounter Progress Notes * PAVITHRA Mcdonald - 11/30/2024 11:00 AM EST Subjective Patient ID: Jose D Dickens is a 64 y.o. male who presents for Pain. PMH CHF, ESRD on HD MWF, HLD, DM, BRENDA, renal osteodystrophy, migraines, COPD, severe PAD Specialists include: Arnaldo nephrology and Dr. Ritchie, Dr. Galaviz ([facility] cardiology), and formerly also Dr. Horne ([facility]), Dr. Bob (endo) On HD MWF, Left arm AV fistula Pain Pertinent negatives include no chest pain, fatigue or shortness of breath. Telemed follow-up for pain management for this 64-year-old with multiple chronic conditions. We switched from tramadol to Dilaudid as tramadol is not recommended in ESRD. We also tried Butrans patches but these were totally ineffective. Today he tells me - hydromorphone made him feel high , he got oxycodone from hospital after brief admission for knee pain/arthritis and fall on R knee (admitted from high BP and HD) - labs notable to elevated potassium 5.9. I will call renal for input on pain medication. Jose D cont to request oxycodone. Says this improved his pain 85% at recent hospitalization. Jose D Maninder is bilingual Mohawk/Argentine. Review of Systems Constitutional: Negative for fatigue. Respiratory: Negative for shortness of breath. Cardiovascular: Negative for chest pain. Musculoskeletal: Positive for arthralgias and back pain. Objective There were no vitals taken for this visit. Physical Exam Exam limited by telehealth format. Pt speaking clearly in complete sentences. 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 This was not effective and so we tried hydromorphone but this made Jose D feel like he was high . I spoke w/ the dialysis center ([phone]) charge posterNIMISHA Chew who will give message to Dr. Faye either call me back or tigertext for guidance. UPDATE: I spoke w/ renal Dr. Ritchie and he advised against oxycodone, recommended pain mgmt referral, consideration for methadone which is not likely available but we can hope. Tramadol sent in the meantime and I will refer to pain mgmt for further recommendations. Jose D [facility] vascular soon for intervention on his legs (claudication) which will hopefully help pain as well. End stage renal failure on dialysis ([facility]/HCC) documented in this encounter Miscellaneous Notes * Addendum Note - PAVITHRA Mcdonald - 11/30/2024 11:00 AM ESTAddended by: KITA YOON on: 12/01/2024 11:30 AM Modules accepted: Orders documented in this encounter Plan of Treatment Upcoming Encounters Date Type Department Care Team (Late st Contact Info) Description 01/04/2025 11:00 AM EDT Telemedicine [facility] MEDICINE [address] [place] [address] Kita Yoon ANP [address] [place] [address] 03/29/2025 9:30 AM EDT Telemedicine [facility] CHC MED & PEDS [address] [place] [address] Lynn Armijo, RN 505 [place] [address] Scheduled Referrals Name Type Priority Associated Diagnoses Orde r Schedule Referral to Pain Medicine Outpatient Referral Routine Arthritis of right knee skilled nursing (current) use of opiate analgesic End stage renal failure on dialysis ([facility]) Expected: 12/01/2024 (Approximate), Expires: 12/01/2025 documented as of this encounter Visit Diagnoses Diagnosis skilled nursing (current) use of opiate analgesic- Primary Arthritis of right knee End stage renal failure on dialysis ([facility]) End stage renal disease documented in this encounter Additional Health Concerns Assessment Noted Time PHQ-9 Depression Total Score: 0 09/10/20 24 9:05 AM EST documented as of this encounter Care Teams Defensive Driving Instructor Relationship Specialty Start Date End Date Kita Yoon ANP [address] [place] [address] PCP - General Family Medicine 06/21/20 Renard Ritchie MD 100 [facility] [address] [place] [address] Nephrology 10/13/24 Eliecer Bob MD 10 [facility] [address] [place] [address] Endocrinology 10/13/24 Albert Galaviz MD [address] [place] [address] Cardiology 10/13/24 documented as of this encounter
--- OUTSIDE RECORDS SUMMARY | 2024-12-01 15:04 | XMS_ITS | Encounter Summary ---
Author Organization [employer] Address [address] [facility] [address] 7t [place] [address] Care Team Providers Care Head Teacher Name Role Phone Crook Nuvia ARSHAD Primary Care Provider [phone] Renard Ritchie MD Unavailable [phone] Eliecer Bob MD Unavailable [phone] Albert Galaviz MD Unavailable [phone] Reason for Visit * Reason Onset Date Comments chart prep 11/27/2024 Encounter Details Date Type Department Care Team (Late st Contact Info) Description 11/27/[address] [facility] MEDICINE [address] [place], [place] [phone] Dede Linares [place] chart prep Social History Tobacco Use Types Packs/Day Years [...] encounter Miscellaneous Notes * Telephone Encounter - Dede Linares MA - 11/27/2024 11:37 AM EST Chart Prep Labs: done Images: done Vaccines due: yes Referrals: closed Screenings: Foot Exam Overdue care gaps: none documented in this encounter Plan of Treatment Upcoming Encounters Date Type Department Care Team (Late st Contact Info) Description 01/04/2025 11:00 AM EDT Telemedicine [facility] MEDICINE [address] [place] [address] Nuvia Crook, ANP 230 [place] [address] 03/29/2025 9:30 AM EDT Telemedicine [facility] CHC MED & PEDS 505 [place] [address] Lynn Armijo, NIMISHA 505 [place] [address] documented as of this encounter Visit Diagnoses Not on filedocumented in this encounter Additional Health Concerns Assessment Noted Time PHQ-9 Depression Total Score: 0 09/10/20 24 9:05 AM EST documented as of this encounter Care Teams Head Teacher Relationship Specialty Start Date End Date Nuvia Crook ANP [address] [place] [address] PCP - General Family Medicine 06/21/20 Renard Ritchie MD [address] [facility] 200 [place] [address] Nephrology 10/13/24 Eliecer Bob MD [address] [place] [address] Endocrinology 10/13/24 Albert Galaviz MD [address] [place] [address] Cardiology 10/13/24 documented as of this encounter
--- OUTSIDE RECORDS SUMMARY | 2024-12-01 15:04 | XMS_ITS | Encounter Summary ---
Author Organization [employer] Address [address] [facility] [address] [address] 7t [place] [address] Care Team Providers Care Card Hand Name Role Phone Nuvia Crook Primary Care Provider [phone] Renard Ritchie MD Unavailable [phone] Eliecer Bob MD Unavailable Albert Galaviz MD Unavailable [phone] Encounter Details Date Type Department Care Team (Late st Contact Info) Description 12/30/2023 Telephone [facility] MEDICINE [address] [place], [place] [phone] Nuvia Crook ANP [address] [place], [place] [phone] Social History Tobacco Use Types Packs/Day Years Used Date Smoking Tobacco: Every Day Cigarettes 0.3 30 Started: 1990; Last attempted to quit: 2020 Passive Smoke Exposure: Never Smokeless Tobacco: Never [...] Info) Description 01/04/2025 11:00 AM EDT Telemedicine [facility] MEDICINE [address] [place] [address] Nuvia Crook ANP [address] [place] [address] 03/29/2025 9:30 AM EDT Telemedicine [facility] CHC MED & PEDS 505 [place] [address] Lynn Armijo, RN 505 [place] [address] documented as of this encounter Visit Diagnoses Not on filedocumented in this encounter Additional Health Concerns Assessment Noted Time PHQ-9 Depression Total Score: 0 07/02/20 23 9:05 AM EDT documented as of this encounter Care Teams Card Hand Relationship Specialty Start Date End Date Nuvia Crook ANP [address] [place] [address] PCP - General Family Medicine 06/21/20 Renard Ritchie MD 100 [facility] 200 [place] [address] Nephrology 10/13/24 Eliecer Bob MD [address] [place] [address] Endocrinology 10/13/24 Albert Galaviz MD 5[address] [place] [address] Cardiology 10/13/24 documented as of this encounter
--- OUTSIDE RECORDS SUMMARY | 2024-12-01 15:05 | XMS_ITS | Encounter Summary ---
Author Organization [facility] Address 75 [facility] 7t [place] [address] Care Team Providers Care Maint Mechanic Name Role Phone Ambreen Nuvia ARSHAD Primary Care Provider [phone] Renard Ritchie MD Unavailable [phone] Eliecer Bob MD Unavailable Albert Galaviz MD Unavailable [phone] Reason for Visit * Reason Comments controlled substance treatment Encounter Details Date Type Department Care Team (Latest Contact Info) Description 12/01/2024 9:30 AM EST Clinical Support [facility] MED & PEDS 505 [place] [address] Lynn Armijo, RN 505 [place] [address] care home (current) use of opiate analgesic Social History Tobacco Use Types Packs/Day Years [...] as of this encounter Progress Notes * Lynn Armijo RN - 12/01/2024 9:30 AM EST S: LEATHER SPONGER [place]. Patient was prescribed Tramadol 100mg PO q8h PRN, dose was changed to 50mg tid. Patient also tried Butrans patches, Dilaudid which was not effective (see Providers note 11/30/24). Patient asking for a refill of Tramadol, message send to PCP. Pt denies use of ETOH/street drugs/marijuana/ cigarettes. Currently rates pain a 10/10 located in the lower back/ knees. States medication usually provides about 50% at alleviating pain. LEATHER SPONGER Agreement renewed today. O: LEATHER SPONGER Tier 3. FELT PAD CUTTER verified today. Rx last filled on 10/30/24. Pill count not performed as patient does not have any pills left, 0 expected. patient is unable to provider urine sample (pt on dialysis).Oral swab performed and will be send to the lab. Last PCP visit was 11/30/24. .BPI updated today. Pain severity score of (10), activity interference score of (10). Previous BPI completed (12/12/23) withpain severity score of (6), activity interference score of (7). Worsening in pain control management, PCP aware. A: LEATHER SPONGER Contract Revisit: Opioid dependence related to chronic pain. P: Patient to continue taking medication only as prescribed; Next LEATHER SPONGER RV appointment scheduled for 03/29/25 @ 9:30am. F/u with PCP 01/04/25. F/U sooner PRN. Patient verbalized understanding and agreed to plan. documented in this encounter Plan of Treatment Upcoming Encounters Date Type Department Care Team (Late st Contact Info) Description 01/04/2025 11:00 AM EDT Telemedicine [facility] MEDICINE 230 [place], [place] [phone] Nuvia Crook ANP 230 [place] [address] 03/29/2025 9:30 AM EDT Telemedicine [facility] CHC MED & PEDS 505 [place], [place] [phone] Lynn Armijo RN 505 [place] [address] Scheduled Orders Name Type Priority Associated Diagnoses Orde r Schedule Drug Toxicology Monitoring Base Panel, w/Confirmation, Oral Fluid Lab Routine care home (current) use of opiate analgesic Ordered: 12/01/2024 documented as of this encounter Visit Diagnoses Diagnosis 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
--- OUTSIDE RECORDS SUMMARY | 2024-12-01 15:05 | XMS_ITS | Encounter Summary ---
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 Ritchie and he advised against oxycodone, recommended pain mgmtreferral, consideration for methadone which is not likely available but we can hope. 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- Primary Arthritis of right knee documented in this encounter Additional Health Concerns Assessment Noted Time PHQ-9 Depression Total Score: 0 09/10/20 24 9:05 AM EST documented as of this encounter Care Teams Wad Lubricator Relationship Specialty Start Date End Date Nuvia Crook ANP [address] [place] [address] PCP - General Family Medicine 06/21/20 Renard Ritchie MD 100 [facility] 200 [place] [address] Nephrology 10/13/24 Eliecer Bob MD [address] [address] Endocrinology 10/13/24 Albert Galaviz MD [address] [place] [address] Cardiology 10/13/24 documented as of this encounter
--- OUTSIDE RECORDS SUMMARY | 2024-12-01 15:05 | XMS_ITS | Encounter Summary ---
Author Organization [facility] Address [address] [facility] 204 [place] [address] Phone Care Team Providers Care Fur Polisher Name Role Phone Nuvia Crook NP Primary Care Provider Mell castellano Encounter Details Date Type Department Care Team (Late st Contact Info) Description 11/06/2024 Treatment [facility] [place] [facility] [address] [address] Teena Dunbar MD [address] [address] Social History Tobacco Use Types [...] 11/06/2024 12:00 AM EST Patient: Jose D iDckens : 1960 Note Type: Dialysis Rounds-Basic Service Date: 11/06/2024 This patient was personally seen for a basic visit as part of routine monthly dialysis care for end stage renal disease. Attending Computer Teacher: TEENA DUNBAR Dialysis Location: [facility] Schedule: Shift: 1 ADEQUACY ASSESSMENT Kt/V, [...] c/o leg pain and has f/[place] [facility] [place]/07/24 stable Signed by: TEENA DUNBAR MD on 11/10/2024 at 12:14:42 AM Transcribed by: TEENA DUNBAR MD on 11/10/2024 at 12:14:42 AM documented in this encounter Plan of Treatment Not on file documented as of this encounter Visit Diagnoses Not on filedocumented in this encounter Care Teams Fur Polisher Relationship Specialty Start Date End Date Nuvia Crook NP [address] [place] [address] PCP - General Nurse Practitioner 10/16/21 documented as of this encounter
--- OUTSIDE RECORDS SUMMARY | 2024-12-01 15:05 | XMS_ITS | Encounter Summary ---
Author Organization [employer] Address [address] [facility] [address] 7t [place] [address] Care Team Providers Care Will Call Clerk Name Role Phone Nuvia Crook Primary Care Provider [phone] Renard Ritchie MD Unavailable [phone] Eliecer Bob MD Unavailable [phone] Albert Galaviz MD Unavailable [phone] Reason for Visit * Reason Comments Med Refill Encounter Details Date Type Department Care Team (Late st Contact Info) Description 11/22/[address] [facility] CHC MED & PEDS [address] [place], [place] [phone] Nuvia Crook ANP [address] [facility] [place], [place] [phone] Cardiovascular event risk Social History Tobacco Use Types Packs/Day Years [...] Info) Description 01/04/2025 11:[address] [facility] MEDICINE 230 [place] [address] Nuvia Crook ANP 230 [place] [address] 03/29/2025 9:[address] [facility] CHC MED & PEDS 505 [place] [address] Lynn Armijo, NIMISHA 505 [place] [address] documented as of this encounter Visit Diagnoses Diagnosis Cardiovascular event risk documented in this encounter Additional Health Concerns Assessment Noted Time PHQ-9 Depression Total Score: 0 09/10/20 24 9:05 AM EST documented as of this encounter Care Teams Will Call Clerk Relationship Specialty Start Date End Date Nuvia Crook ANP [address] [place] [address] PCP - General Family Medicine 06/21/20 Renard Ritchie MD [address] [place] [address] [place] [address] Nephrology 10/13/24 Eliecer Bob MD 10 [facility] [address] [place] [address] Endocrinology 10/13/24 Albert Galaviz MD [address] [place] [address] Cardiology 10/13/24 documented as of this encounter
--- OUTSIDE RECORDS SUMMARY | 2024-12-01 15:05 | XMS_ITS | Encounter Summary ---
Author Organization [facility] Address [address] [facility] 204 [place] [address] Phone Care Team Providers Care Emt B Name Role Phone Nuvia Crook NP Primary Care Provider Mell castellano Encounter Details Date Type Department Care Team (Late st Contact Info) Description 10/30/2024 Treatment [facility] [address] [address] Teena Dunbar MD [address] [address] Social History Tobacco Use Types [...] care for end stage renal disease. Attending Labor Contractor: TEENA DUNBAR MD Dialysis Location: [facility] Schedule: Shift: 1 ADEQUACY ASSESSMENT [...] c/o leg pain and has f/u vasc [facility] 10/07/24 stable Signed by: TEENA DUNBAR MD on 10/31/2024 at 03:09:36 AM Transcribed by: TEENA DUNBAR MD on 10/31/2024 at 03:09:36 AM documented in this encounter Plan of Treatment Not on file documented as of this encounter Visit Diagnoses Not on filedocumented in this encounter Care Teams Emt B Relationship Specialty Start Date End Date Nuvia Crook NP 230 [place] [address] PCP - General Nurse Practitioner 10/16/21 documented as of this encounter
--- OUTSIDE RECORDS SUMMARY | 2024-12-01 15:05 | XMS_ITS | Encounter Summary ---
Author Organization [employer] [facility] Address [address] [facility] 7t [place] [address] Care Team Providers Care Recycle Driver Name Role Phone Nuvia Crook Primary Care Provider [phone] Renard Ritchie MD Unavailable [phone] Eliecer Bob MD Unavailable Albert Galaviz MD Unavailable Reason for Visit * Reason Comments Pain Encounter Details Date Type Department Care Team (Late st Contact Info) Description 11/05/2024 1:15 PM EST Telemedicine [facility] MEDICINE [address] [place], [place] [phone] Nuvia Crook ANP [address] [place], [place] [phone] End stage renal failure on dialysis ([facility]) (Primary Dx); Other chronic pain Social History Tobacco Use Types Packs/Day Years [...] as of this encounter Progress Notes * Nuvia Crook, PAVITHRA - 11/05/2024 1:15 PM EST Subjective Patient ID: Jose D Dickens is a 64 y.o. male who presents for Pain. HPI PMH CHF, ESRD on HD MWF, HLD, DM, BRENDA, renal osteodystrophy, migraines, COPD Specialists include: [facility] & Dr. Ritchie, Dr. Galaviz ([facility]), and alsopreviously Dr. Horne, Dr. Bob ([facility]) HD MWF, Left arm AV fistula Tele follow-up for pain mgmt. We have been working together to improve pain control. Jose D tried 7.5 and then 10mcg buprenorphinepatches with placement as discussed and these were ineffective. Buprenorphine patches not working at all. Getting HAs and no pain relief. Tramadol 100mg TID which he has been on for a long time is not effective and not recommended in ESRD. He declines to trial fentanyl patch. Former smoker. Review of Systems +pain -respiratory sx Objective Physical Exam Exam limited by telehealth format. Pt speaking clearly in complete sentences. Assessment/Plan Diagnoses and all orders for this visit: End stage renal failure on dialysis ([facility]) Other chronic pain Cautioned extensively on JOVON, stop bup, stop tramadol. MME decrease given switching to new med. HasNarcan at home. Reviewed again recommendation for topical fentanyl over dilaudid but pt declines this. Did review that if dilaudid is ineffective, our options are very limited for meds available for opiate analgesia in ESRD and he may need to reconsider fentanyl. START: - HYDROmorphone (Dilaudid) 2 MG tablet; Take 1 tablet (2 mg) by mouth every 6 (six) hours if neededfor severe pain for up to 14 days. If effective will plan to switch to ER formulation. documented in this encounter Plan of Treatment Upcoming Encounters Date Type Department Care Team (Late st Contact Info) Description 01/04/2025 11:00 AM EDT Telemedicine [facility] MEDICINE [address] [place] [address] Nuvia Crook ANP [address] [place] [address] 03/29/2025 9:30 AM EDT Telemedicine [facility] MED & PEDS [address] [place] [address] Lynn Armijo, RN 505 [place] [address] documented as of this encounter Visit Diagnoses Diagnosis End stage renal failure on dialysis ([facility])- Primary End stage renal disease Other chronic pain documented in this encounter Additional Health Concerns Assessment Noted Time PHQ-9 Depression Total Score: 0 09/10/20 24 9:05 AM EST documented as of this encounter Care Teams Recycle Driver Relationship Specialty Start Date End Date Nuvia Crook ANP [address] [place] [address] PCP - General Family Medicine 06/21/20 Renard Ritchie MD [address] [facility] [address] [place] [address] Nephrology 10/13/24 Eliecer Bob MD 10 [facility] [address] [place] [address] Endocrinology 10/13/24 Albert Galaviz MD 6 [place] [address] Cardiology 10/13/24 documented as of this encounter
--- OUTSIDE RECORDS SUMMARY | 2024-12-01 15:05 | XMS_ITS | Encounter Summary ---
Author Organization [employer] Address [address] [place] [address] Care Team Providers Care General Lot Attendant Name Role Phone Crook Nuvia ARSHAD Primary Care Provider [phone] Renard Ritchie MD Unavailable [phone] Eliecer Bob MD Unavailable [phone] Albert Galaviz MD Unavailable [phone] Encounter Details Date Type Department Care Team ([facility] st Contact Info) Description 11/30/2024 Telephone [facility] [address] [place] [address] Lynn Armijo, RN 505 [place] [address] Social History Tobacco Use Types Packs/Day Years [...] encounter Miscellaneous Notes * Telephone Encounter - PAVITHRA Mcdonald - 11/30/2024 4:53 PM EST 3 * Telephone Encounter - Lynn Armijo RN - 11/30/2024 4:50 PM EST .What POWER DISTRIBUTOR Tier would you like this patient to be? Tier 1 = HIGH RISK, Monthly POWER DISTRIBUTOR visits Tier 2 = MODerate RISK, Q3 Month visits Tier 3 = LOW RISK = Q4-6 month visits documented in this encounter Plan of Treatment Upcoming Encounters Date Type Department Care Team (Late st Contact Info) Description 01/04/2025 11:00 AM EDT Telemedicine [facility] [address] [place] [address] Nuvia Crook ANP [address] [place] [address] 03/29/2025 9:30 AM EDT Telemedicine [facility] [address] [place] [address] Lynn Armijo, NIMISHA 505 [place] [address] documented as of this encounter Visit Diagnoses Not on filedocumented in this encounter Additional Health Concerns Assessment Noted Time PHQ-9 Depression Total Score: 0 09/10/20 9:05 AM EST documented as of this encounter Care Teams General Lot Attendant Relationship Specialty Start Date End Date Nuvia Crook ANP [address] [place] [address] PCP - General Family Medicine 06/21/20 Renard Ritchie MD 100 [facility] 200 [place] [address] Nephrology 10/13/24 Eliecer Bob MD [address] [place] [address] Endocrinology 10/13/24 Albert Galaviz MD [address] [place] [address] Cardiology 10/13/24 documented as of this encounter
--- OUTSIDE RECORDS SUMMARY | 2024-12-01 15:05 | XMS_ITS | Encounter Summary ---
Author Organization [employer] Address [address] [facility] [address] [place] [address] Care Team Providers Care Berry Planter Name Role Phone Ambreen Nuvia ARSHAD Primary Care Provider [phone] Renard Ritchie MD Unavailable [phone] Eliecer Bob MD Unavailable [phone] lAbert Galaviz MD Unavailable [phone] Reason for Visit * Reason Onset Date Comments Appointment 01/01/2023 Encounter Details Date Type Department Care Team (Late st Contact Info) Description 01/01/2023 Telephone [facility] [address] [place], [place] [phone] John Hightower [address] [place], [place] [phone] Appointment Social History Tobacco Use Types Packs/Day Years [...] encounter Miscellaneous Notes * Telephone Encounter - Bernice Souza - 01/01/2023 11:12 AM EST Patient called in with daughter and is looking to have appt for deep cleaning scheduled . I don't see approval in chart unless I;m missing something. It is listed as active requested appt. In appt chart. Patient is concerned about getting work done soon because he is on waiting list for kidney transplant and [facility] continues to call him to see if his dental work is completed. Pls advise. documented in this encounter Plan of Treatment Upcoming Encounters Date Type Department Care Team (Late st Contact Info) Description 01/04/2025 11:00 AM EDT Telemedicine [facility] MEDICINE [address] [place] [address] Nuvia Crook ANP 230 [place] [address] 03/29/2025 9:30 AM EDT Telemedicine [facility] [address] [place] [address] Lynn Arimjo, NIMISHA 505 [place] [address] documented as of this encounter Visit Diagnoses Not on filedocumented in this encounter Care Teams Berry Planter Relationship Specialty Start Date End Date Nuvia Crook ANP [address] [place] [address] PCP - General Family Medicine 06/21/20 Renard Ritchie MD 100 [facility] 200 [place] [address] Nephrology 10/13/24 Eliecer Bob MD [address] [place] [address] Endocrinology 10/13/24 Albert Galaviz MD [address] [place] [address] Cardiology 10/13/24 documented as of this encounter
--- OUTSIDE RECORDS SUMMARY | 2024-12-01 15:05 | XMS_ITS | Encounter Summary ---
Author Organization [employer] Address [address] [facility] [facility] [facility] [address] [place] [address] Care Team Providers Care Baseball Glove Stuffer Name Role Phone Crook Nuvia ARSHAD Primary Care Provider Renard Ritchie MD Unavailable [phone] Eliecer Bob MD Unavailable [phone] Albert Galaviz MD Unavailable [phone] Reason for Visit * Reason Onset Date Comments chart prep 11/04/2024 Encounter Details Date Type Department Care Team (Late st Contact Info) Description 11/04/2024 Telephone [facility] MEDICINE [address] [place], [place] [phone] Dede Linares [place] chart prep Social History [...] Telephone Encounter - Dede Linares [place] - 11/04/2024 11:13 AM EST Chart Prep Labs: done Images: done Vaccines due: yes Referrals: none Screenings: Foot Exam Overdue care gaps: none documented in this encounter Plan of Treatment Upcoming Encounters Date Type Department Care Team (Late st Contact Info) Description 01/04/2025 11:00 AM EDT Telemedicine [facility] MEDICINE [address] [place] [address] Nuvia Crook ANP [address] [place] [address] 03/29/2025 9:30 AM EDT Telemedicine [facility] CH[facility] MED & PEDS 505 [place] [address] Lynn Armijo, NIMISHA 505 [place] [address] documented as of this encounter Visit Diagnoses Not on filedocumented in this encounter Additional Health Concerns Assessment Noted Time PHQ-9 Depression Total Score: 0 09/10/20 24 9:05 AM EST documented as of this encounter Care Teams Baseball Glove Stuffer Relationship Specialty Start Date End Date Nuvia Crook ANP [address] [place] [address] PCP - General Family Medicine 06/21/20 Renard Ritchie MD 100 [facility] 200 [place] [address] Nephrology 10/13/24 Eliecer Bob MD [address] [place] [address] Endocrinology 10/13/24 Albert Galaviz MD [address] [place] [address] Cardiology 10/13/24 documented as of this encounter
--- OUTSIDE RECORDS SUMMARY | 2024-12-01 15:05 | XMS_ITS | Clinical Summary ---
Author Organization [employer] Address [address] [facility] [address] [place] [address] Care Team Providers Care Resident Services Director Name Role Phone Kita Yoon PAVITHRA Primary Care Provider [phone] Renard Ritchie MD Unavailable Eliecer Bob MD Unavailable [phone] Albert Galaviz MD Unavailable [phone] Allergies Active Allergy Reactions Criticality Noted Date Comments Nsaids 06/26/2023 ESRD Medications OXcarbazepine (Trileptal) 300 MG tablet take 1 tablet (300MG) by oral route 2 times every day Active atorvastatin (Lipitor) 80 MG tablet Take 1 tablet by mouth at bed time 021 Active Icosapent Ethyl (Vascepa) 1 g capsule take 2 capsules by mouth twice daily Active lidocaine (Xylocaine) 5 % ointment apply by topical route 1 - 4 times every day to affected area(s) as needed for back pain 022 Active perphenazine 2 MG tablet take 1 tablet by mouth twice daily 022 Active sertraline (Zoloft) 100 MG tablet take 2 tablet by oral route every day Active zolpidem (Ambien) 10 MG tablet take 1 tablet by oral route every day at bedtime 021 Active glucose blood (FREESTYLE LITE) test strip Use to test blood sugar QID Active Lancets 33G misc Use to test blood sugar four times daily Active pen needle 32G x 4 mm misc Use as instructed with insulin Active ketoconazole (NIZOral) 2 % shampooIndicati ons:Scalp itch APPLY TOPICALLY TO AFFECTED AREA(S), LATHER, LEAVE IN FOR 5 MINUTES, AND RINSE WITH WATER 120 mL 1 023 Active NovoLOG FLEXPEN 100 UNIT/ML pen Inject 10 units subcutaneously before breakfast, 24 units before lunch and 16 units before dinner as directed Active gabapentin (Neurontin) 300 MG capsule Take 1 capsule (300 mg) by mouth at bedtime. 30 capsule 11 Active Ventolin HFA 108 (90 Base) MCG/ACT inhalerIndicati ons:Wheezing INHALE 2 PUFFS BY MOUTH EVERY 4 HOURS NEEDED 18 g 1 Active cholecalciferol (Vitamin D-3) 25 MCG tablet TAKE 2 TABLETS BY MOUTH ONCE DAILY IN THE MORNING 180 tablet 3 Active omeprazole (PriLOSEC) [address] capsuleIndicati ons:Duodenal ulcer disease Take 1 capsule (40 mg) by mouth in the morning. 90 capsule 1 024 Active NIFEdipine CC (Adalat CC) 30 MG 24 hr tabletIndicatio ns:Renal hypertension TAKE 4 TABLETS BY MOUTH AT BEDTIME 360 tablet 1 Active insulin glargine (Toujeo Max SoloStar) 300 UNIT/ML injectionIndica tions:Type 2 Diabetes Mellitus Inject 12 Units under the skin Once daily. Active fluticasone furoate (Arnuity Ellipta) 200 MCG/ACT inhaler INHALE 1 PUFF BY MOUTH EVERY DAY AT THE SAME TIME RINSE MOUTH AFTER USING 30 each 3 Active torsemide (Demadex) 20 MG tabletIndicatio ns:Renal hypertension,Ch ronic diastolic heart failure (CMS/HCC) TAKE 4 TABLETS BY MOUTH TWICE DAILY IN THE MORNING AND THE EVENING 240 tablet 3 Active naloxone (Narcan) 4 mg/0.1 mL nasal sprayIndication s:intermediate frame tender (current) use of opiate analgesic Administer 1 spray (4 mg) into affected nostril(s) if needed for opioid reversal. May repeat every 2-3 minutes if needed, alternating nostrils, until medical assistance becomes available. 2 each 024 2024 Active aspirin (Aspirin Low Dose) 81 MG EC tabletIndicatio ns:Cardiovascul ar event risk TAKE 1 TABLET BY MOUTH EVERY MORNING 90 tablet 1 025 Active carvedilol (Coreg) 25 MG tablet TAKE 1 TABLET BY MOUTH TWICE DAILY IN THE MORNING AND IN THE EVENING WITH FOOD 180 tablet 1 025 Active isosorbide mononitrate ER (Imdur) 60 MG 24 hr tablet TAKE 2 TABLETS BY MOUTH ONCE DAILY IN THE MORNING 180 tablet 1 025 Active traMADol (Ultram) 50 MG tabletIndicatio ns:Arthritis of right knee,intermediate frame tender (current) use of opiate analgesic Take 2 tablets (100 mg) by mouth every 8 (eight) hours if needed for severe pain for up to 28 days. 168 tablet 025 2024 Active amoxicillin-cla vulanate (Augmentin) 500-125 MG tabletIndicatio ns:Diverticulit is Take 1 tab every 24 hours except on dialysis days - take 1 tab before dialysis and another afterwards 13 tablet 024 2024 Discontinued(T herapy completed) isosorbide mononitrate ER (Imdur) 60 MG 24 hr tablet TAKE 2 TABLETS BY MOUTH ONCE DAILY IN THE MORNING 180 tablet 1 024 2024 Discontinued Aspirin Low Dose 81 MG EC tabletIndicatio ns:Cardiovascul ar event risk TAKE 1 TABLET BY MOUTH EVERY MORNING 90 tablet 1 024 2024 Discontinued carvedilol (Coreg) 25 MG tablet TAKE 1 TABLET BY MOUTH TWICE DAILY IN THE MORNING AND IN THE EVENING WITH FOOD 180 tablet 1 024 2024 Discontinued buprenorphine (Butrans) 10 MCG/HRIndicatio ns:Other chronic pain,penitentiary (current) use of opiate analgesic Place 1 patch on the skin 1 (one) time per week. 4 patch 2 024 2024 Discontinued(S drake effects) traMADol (Ultram) 50 MG tabletIndicatio ns:End stage renal disease (CMS/HCC),Other chronic pain TAKE 2 TABLETS BY MOUTH EVERY 8 HOURS NEEDED FOR SEVERE PAIN 84 tablet 025 2024 Discontinued(D uplicate order (will not trigger notification to Pharmacy)) HYDROmorphone (Dilaudid) 2 MG tabletIndicatio ns:Other chronic pain Take 1 tablet (2 mg) by mouth every 6 (six) hours if needed for severe pain for up to 14 days. 56 tablet 025 2024 Active Problems Problem Noted Date Diagnosed Date Arthritis of right knee 11/30/2024 intermediate frame tender (current) use of opiate analgesic 08/28 Acute kidney injury superimp osed on chronic kidney disease ([facility]) 06/20/2023 Acute on chronic heart failu re with preserved ejection fraction (HFpEF) 06/20/2023 Anemia 06/20/2023 Arthritis of hand, right 06/20/2023 Chronic disease 06/20/2023 Class 1 obesity 06/20/2023 Essential hypertension 06/20/2023 Numbness and tingling in right hand 06/20/2023 PAD (peripheral artery disease) 06/20/2023 Severe obesity 06/20/2023 Thrombocytopenia 06/20/2023 Trigger finger, right middle finger 06/20/2023 Uncontrolled type 2 diabetes mellitus 06/20/2023 Varicose veins of right lower extremity with inf lammation 06/20/2023 Duodenal ulcer disease 06/20/2023 End stage renal failure on dialysis 06/20/2023 Overview (06/20/2023): MWF [facility] Other chronic pain 01/31/2023 Chronic diastolic heart failure 11/06/2022 Stage 5 chronic kidney disease 09/11/2021 Duodenal ulcer 08/16/2021 Chronic kidney disease, stage 4 (severe) 021 End stage renal disease 01/23/2021 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) 02/27/2018 Chronic obstructive lung disease 08/10/2015 History of cholecystectomy 08/10/2015 Migraine without aura, not refractory 08/10/2015 Mixed anxiety and depressive disorder 08/10/2015 Obstructive sleep apnea syndrome 08/10/2015 Peripheral edema 08/10/2015 Type 2 diabetes mellitus wit h diabetic chronic kidney disease 08/10/2015 Overview (09/10/2024): Follows w/ [facility] Their plan 06/2024: Continue Toujeo 12 units nightly. Continue NovoLog 8 units before breakfast on non dialysis days, no NovoLog in the morning on HD days. Increase NovoLog to 20 units before lunch to combat postprandial hyperglycemia and continue 14 units before dinner. Patient will incorporate afternoon snack around 2:30-3 p.m. to prevent the occasional episodes of hypoglycemia. If he experiences more episodes of hypoglycemia he will decrease NovoLog before lunch back to 18 units. Follows w/ podiatry Vitamin D deficiency 08/10/2015 History of alcohol abuse 08/10/2015 Right-sided low back pain without sciatica 08/10 Tobacco dependence syndrome 08/10/2015 Type 2 diabetes mellitus with hypoglycemia witho ut coma 08/10/2015 Resolved Problems Problem Noted Date Diagnosed Date Resolved Date Disease due to severe acute respiratory syndrome coronavirus 2 (SARS-CoV-2) 08/25/202204/27 Overview (06/20/2023): Problem added by Discern Expert Encounters Date Type Department Care Team Description 12/01/2024 9:30 AM EST Clinical Support [facility] [address] [place] [address] Lynn Armijo RN intermediate frame tender (current) use of opiate analgesic 12/01/2024 Orders Only [facility] [address] [place] [address] Kita Yoon ANP penitentiary (current) use of opiate analgesic (Primary Dx); Arthritis of right knee 12/01/2024 Refill [facility] [address] [place] [address] Kita Yoon ANP End stage renal disease (CMS/HCC); Other chronic pain 12/01/2024 Travel 12/01/2024 Telephone [facility] [address] [place] [address] Lynn Armijo, NIMISHA Med Refill 11/30/2024 11:00 AM EST Telemedicine [facility] [address] [place] [address] Kita Yoon ANP penitentiary (current) use of opiate analgesic (Primary Dx); Arthritis of right knee; End stage renal failure on dialysis ([facility]) 11/30/2024 Telephone [facility] [address] [facility] [place] [address] Lynn Armijo RN 11/30/2024 Travel 11/30/[address] [facility] [place] [address] Kita Yoon ANP 11/27/2024 [address]phone [address] [place] [address] Dede Linares MA chart prep 11/26/[address] [address] Kita Yoon ANP Medication Reaction 11/24/2024 Orders Only GENERIC EXTERNAL DATA DEPARTMENT Provider, Generic External Data 11/22/2024 Refill [facility] [address] [place] [address] Kita Yoon ANP Cardiovascular event risk 11/16/2024 Orders Only GENERIC EXTERNAL DATA DEPARTMENT Provider, Generic External Data 11/10/[address] [facility] [place] [address] Cristin Murray RN Paperwork/Forms 11/05/2024 1:15 PM EST Telemedicine [facility] [place] [address] Kita Yoon ANP End stage renal failure on dialysis ([facility]) (Primary Dx); Other chronic pain 11/04/[address] [facility] [place] [address] Dede Linares MA chart prep 10/29/[address] [facility] [place] [address] Kita Yoon ANP End stage renal disease ([facility]); Other chronic pain 10/23/2024 Orders Only [facility] [place] [place] [address] Kita Yoon ANP 10/22/[address] [address] Yoon, Kita, ANP Medication Question 10/13/2024 9:15 AM EST Telemedicine [facility] [address] [place] [address] Kita Yoon ANP Chronic right-sided low back pain without sciatica (Primary Dx); End stage renal disease ([facility]); intermediate frame tender (current) use of opiate analgesic; Other chronic pain 10/13/2024 Travel 10/12/2024 Telephone [facility] [address] [facility] [place] [address] Nemo Maza MA chart prep 10/08/2024 Telephone [facility] [address] [place] [address] Lynn Armijo, NIMISHA 10/07/2024 Orders Only [facility] [address] [facility] [place] [address] Kita Yoon ANP End stage renal disease ([facility]) (Primary Dx); Other chronic pain 10/06/2024 Telephone [facility] [address] [facility] [place] [address] Kita Yoon ANP Medication Problem 09/29/2024 Telephone [facility] [address] [place] [address] Lynn Armijo, NIMISHA 09/28/2024 Refill [facility] [address] [place] [address] Kita Yoon ANP Pain 09/23/2024 Refill [facility] [address] [facility] [place] [address] Kita Yoon ANP Renal hypertension; Chronic diastolic heart failure ([facility]) 09/18/2024 Orders Only [facility] [address] [facility] [place] [address] Kita Yoon ANP Chronic right-sided low back pain without sciatica (Primary Dx) 09/17/2024 Telephone [facility] [address] [facility] [place] [address] Meera Winter, NIMISHA Appointment Request; Record Request 09/15/2024 Telephone [facility] [address] [place] [address] Lynn Armijo, RN 09/15/2024 Telephone [facility] [address] [place] [address] Cristin Murray RN Medication Question 09/14/2024 9:30 AM EST Telemedicine [facility] [address] [place] [address] Lynn Armijo RN Chronic low back pain, unspecified back pain laterality, unspecified whether sciatica present 09/14/2024 Travel 09/10/2024 9:00 AM EST Office Visit [facility] [address] [place] [address] Kita Yoon, ANP Type 2 diabetes mellitus with chronic kidney disease on chronic dialysis, with long-term current use of insulin ([facility]) (Primary Dx); PAD (peripheral artery disease) ([facility]); intermediate frame tender (current) use of opiate analgesic; Encounter for immunization; End stage renal failure on dialysis ([facility]); Essential hypertension; Chronic right-sided low back pain without sciatica 09/10/2024 Telephone [facility] [address] [place] [address] Kita Yoon ANP Communication (Pt walked in stating he wants to speak with PCP or a Nurse due to medication prescribed , stating he does not want that medication . Pt states he spoke with a nurse and was not able to understand and was told he will receive a call back , but never did . Pt can be reached at [phone].) 09/10/2024 Travel from Last 3 Months Immunizations Name Administration Dates Next Due Hep B, adult 06/05/2023,,03/14/2022,02/19,01/05/2022 Influenza injectable quadriv alent IIV4 with preservative 08/02/2023,08/25/2018,08/16/2016,08/10 Influenza injectable quadriv alent preservative free 07/24/2022,07/21/2021,08/13/2019 Influenza, IIV3, injectable 08/18/2014 Influenza, Split (incl. akil fied surface antigen) 07/15/2013,10/13/2012 Influenza, seasonal, injecta ble, preservative free 09/10/2024 Moderna Covid-19 Vaccine 12+ 04/10/2022, 10/30/2021,01/20/2021,12/23 Moderna Covid-19 Vaccine 6+ Bivalent 11/06/2022 Novel [id number] 10/03/2016 Pfizer Covid-19 Vaccine 12+ 09/10/2024 Pneumococcal Conjugate PCV 20 02/04/2024 Pneumococcal Polysaccharide PPSV23 04/07/2019, TD (adult), 2 Lf tetanus tox oid, preservative free, adsorbed 06/09/2021 Tdap 09/04/2010 Zoster, Recombinant 06/08/2021,04/06/2021 Social History Tobacco Use Types Packs/Day Years [...] is your housing situation today? I have bluejennifer abdullahi 09/10/[address] you [...] Orientation Straight 08/27/2022 10 :16 AM EDT Last Filed Vital Signs Vital Sign Reading Time Taken Comments Blood Pressure 155/78 09/10/2024 9:03 AM EST Pulse 84 09/10/2024 9:03 AM EST Temperature 36.7 ??C (98.1 ??F) 09/10/2024 9:03 AM ES T Respiratory Rate 16 09/10/2024 9:03 AM EST Oxygen Saturation 98% 09/10/2024 9:03 AM EST Inhaled Oxygen Concentration - - Weight 99.6 kg (219 lb 9.6 oz) 09/10/2024 9:03 A M EST Height 180.3 cm (5' 11 ) 09/10/2024 9:03 AM EST Body Mass Index 30.63 09/10/2024 9:03 AM EST Plan of Treatment Upcoming Encounters Date Type Department Care Team (Late st Contact Info) Description 01/04/2025 11:00 AM EDT Telemedicine [facility] [address] [place] [address] Kita Yoon ANP [address] [place] [address] 03/29/2025 9:30 AM EDT Telemedicine [facility] [address] [place] [address] Lynn Armijo, NIMISHA [address] [place] [address] Health Maintenance Due Date Last Done Comments CT Colonography 1960 Dental Prophylaxis 1960 Dental X-Ray: Full Mouth 1960 FIT DNA/Cologuard 1960 FIT 1960 FOBT 1960 HIV Screening 1960 Sigmoidoscopy 1960 Diabetes: Foot Exam 1970 Eye Exam 1970 Hepatitis C Screening 1978 Hepatitis A Vaccines (1 of 2 - Risk 2-dose series) 1979 RSV Patients and Patients Aged 60 years or older (1 - Risk 60-74 years 1-dose series) 2020 Dental Oral Exam 05/28/2023 11/27/2022 Lipid Panel 06/04/2024 06/04/2023, 05/28, 06/07/2022, Additional history exists Dental X-Ray: Bitewings 10/11/2024 10/10/2023, 11/27 Diabetes: Hemoglobin A1C 03/10/2025 024, 11/28/2023, 07/02/2023, Additional history exists Alcohol/Substance Use Screening 09/10/2025 09/10/2024 Depression Screening 09/10/2025 09/10/2024, 09/10/20 SDOH Screening 09/10/2025 09/10/2024 Tobacco Screening 11/30/2025 11/30/2024 DTaP/Tdap/Td Vaccines (3 - Td or Tdap) 06/09/2031 06/09/2021, 09/04/2010 Colonoscopy 05/21/2033 Colorectal Cancer Screening 05/21/2033 Zoster Vaccines Completed 06/08/2021, 04/06/2021 Hepatitis B Vaccines Completed 06/05/2023, 06/13/2022, 03/14/2022, Additional history exists Pneumococcal Vaccine: 50+ Years Completed 02/04/2024, 04/07/2019, 03/24/2010 COVID-19 Vaccine Completed 09/10/2024, , 11/06/2022, Additional history exists Influenza Vaccine Completed 09/10/2024, , 07/24/2022, Additional history exists HIB Vaccines Aged Out No longer eligi ble based on patient's age to complete this topic HPV Vaccines Aged Out No longer eligi ble based on patient's age to complete this topic IPV Vaccines Aged Out No longer eligi ble based on patient's age to complete this topic Meningococcal Vaccine Aged Out No miller carlos eligible based on patient's age to complete this topic RSV under 20 months Aged Out No longe r eligible based on patient's age to complete this topic Rotavirus Vaccines Aged Out No longer eligible based on patient's age to complete this topic Procedures Procedure Name Priority Date/Time Associated Diagnosis Comments GLUCOSE, WHOLE BLOOD Routine 11/24/2024 8:46 AM EST B TYPE NATRIURETIC PEPTIDE (BNP) Routine 11/16/2024 11:13 AM EST MAGNESIUM Routine 11/16/2024 11:13 AM EST COMPREHENSIVE METABOLIC PANEL Routine 11/16/2024 11:13 AM EST CBC WITH AUTO DIFFERENTIAL Routine 11/16/2024 11:13 AM EST XR KNEE 1-2 VIEWS RIGHT Routine 11/15/2024 11:35 AM EST POCT GLYCATED HEMOGLOBIN, TOTAL Routine 09/10/2024 9:07 AM EST Type 2 diabetes mellitus with chronic kidney disease on chronic dialysis, with long-term current use of insulin (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) BITEWING - SINGLE RADIOGRAPHIC IMAGE Routine 10/10/2023 11:30 AM EST Periodontal disease Symptomatic irreversible pulpitis LIPID PANEL, STANDARD Routine 06/04/2023 8:24 AM EDT PERIODIC ORAL EVALUATION - ESTABLISHED PATIENT Routine 11/27/2022 1:00 PM EST from Last 3 Months or Most Recently Relevant to Health Maintenance Results * (ABNORMAL) Glucose, Whole Blood (11/24/2024 8:46 AM EST) Glucose, Whole Blood 125(H) 60 - 115 mg/dL [facility] Comment:METER #: [id number] Testing performed in the Endocrinology Department [address] , [address], [place]. 11/24/2024 8:46 AM EST 11/24/2024 8:50 AM EST us Generic External Data Provider LAB BLOOD ORDERAB LES Final Result [facility] [address] [place], [place] [phone] * (ABNORMAL) CBC auto differential (11/16/2024 11:13 AM EST) White Blood Count 6.9 4.8 - 10.8 X10*3/uL [facility] Red Blood Count 2.87(L) 4.60 - 5.80 X10*6/uL [facility] Hemoglobin 10.2(L) 14.0 - 18.0 g/dl [facility] Hematocrit 27.8(L) 42.0 - 52.0 % [facility] Mean Corpuscular Volume 96.9 80.0 - 98.0 fL [facility] Mean Corpuscular Hemoglobin 35.5(H) 27.0 - 33.0 pg [facility] Mean Corpuscular HGB Conc 36.7(H) 31.0 - 36.0 g/dl [facility] Red Cell Distribution Width 13.4 11.0 - 16.0 % [facility] Platelet Count 107(L) 160 - 400 X10*3/uL [facility] Mean Platelet Volume 12.5(H) 9.4 - 12.4 fL [facility] Neutrophils Percent Auto 72.5 45 - 73 % [facility] Imm Gran Pct Auto 0.4 0.0 - 0.4 % [facility] Lymphocytes Percent Auto 19.1(L) 20 - 40 % [facility] Monocytes Percent Auto 5.1 2 - 11 % [facility] Eosinophils Percent Auto 2.6 0 - 4 % [facility] Basophils Percent Auto 0.3 0 - 2 % [facility] NRBC Pct Auto 0.0 0.0 - 0.2 /100WBC [facility] Neutrophils Absolute Auto 5.0 2.0 - 8.3 x10*3/uL [facility] Imm Gran Abs Auto 0.03 0.00 - 0.03 X10*3/uL [facility] Lymphocytes Absolute Auto 1.3 1.2 - 4.9 X10*3/uL [facility] Monocytes Absolute Auto 0.4 0.1 - 1.2 X10*3/uL [facility] Eosinophils Absolute Auto 0.2 0.0 - 0.4 X10*3/uL [facility] Basophils Absolute Auto 0.0 0.0 - 0.2 X10*3/uL [facility] NRBC Abs Auto 0.000 0.0 - 0.012 X10*3/uL [facility] 11/16/2024 11:1 3 AM EST 11/16/2024 11:18 AM EST Generic External Data Provider LAB BLOOD ORDERAB LES Final Result Performing Organization Address [facility] de Phone Number [facility] [address] [place] [phone] * (ABNORMAL) B Type Natriuretic Peptide (BNP) (11/16/2024 11:13 AM EST) Pathologist [facility] B Type Natriuretic Peptide 827(H) <100 pg/mL [facility] Comment:For those patients w ho are being treated with Natrecor(nesiritide, recombinant BNP), BNP testing should beperformed at least two hours post treatment in order toensure that only endogenous levels of BNP are detected. 11/16/2024 11:1 3 AM EST 11/16/2024 12:23 PM EST Generic External Data Provider LAB BLOOD ORDERAB LES Final Result Performing Organization Address [facility] de Phone Number [facility] [address] [place] [phone] * Magnesium (11/16/2024 11:13 AM EST) Pathologist [facility] Magnesium 2.0 1.6 - 2.6 mg/dL [facility] 11/16/2024 11:1 3 AM EST 11/16/2024 11:18 AM EST us Generic External Data Provider LAB BLOOD ORDERAB LES Final Result [facility] [address] [place] [address] [phone] * (ABNORMAL) Comprehensive Metabolic Panel (11/16/2024 11:13 AM EST) Sodium 140 135 - 145 mmol/L [facility] Potassium 5.9(H) 3.3 - 5.1 mmol/L [facility] Chloride 96 96 - 108 mmol/L [facility] Carbon Dioxide 28 22 - 29 mmol/L [facility] Anion Gap 22(H) 12 - 20 [facility] Urea Nitrogen (BUN) 53(H) 9 - 16 mg/dL [facility] Creatinine, Serum 12.48(HH) 0.5 - 1.4 mg/dL [facility] Comment:Critical value for t est(s): RAUL Results called to tiara back by: WALDO Person calling: YINKAVStephan Date:11/16/2024 Time:11:35 Creatinine Clr Calc Pharmacy 7.1 [facility] Comment:eGFR (calculated fro m the MDRD study equation) and eCrCl(calculated from the Cockcroft-Gault equation) are based ondifferent parameters and may not yield comparable results.If eCrCl result is absurd, please check patient'sheight/weight. Estimated Glomerular Filt Rate 4 [facility] Comment:Chronic Kidney Disea se: Estimated GFR < 60 mL/min/1.94e4Brjjeq Kidney Disease: Estimated GFR < 15 mL/min/1.73m2 Glucose 171(H) 60 - 115 mg/dL [facility] Calcium 8.0(L) 8.4 - 10.2 mg/dL [facility] Bilirubin, Total 0.4 0.0 - 1.0 mg/dL [facility] Aspartate Amino Transferase 17 5 - 37 U/L [facility] Alanine Aminotransferase 20 0 - 40 U/L [facility] Total Protein 7.9 6.5 - 8.0 g/dL [facility] Albumin Level 3.9 3.5 - 5.0 g/dL [facility] Alkaline Phosphatase 79 39 - 117 U/L [facility] 11/16/2024 11:1 3 AM EST 11/16/2024 11:18 AM EST us Generic External Data Provider LAB BLOOD ORDERAB LES Final Result [facility] [address] [place] [address] [phone] * XR Knee 1-2 Views Right (11/15/2024 11:35 AM EST) Anatomical Region Laterality Modality Lower Extremities, Knee Right Radiogra phic Imaging 11/15/2024 11:3 5 AM EST Narrative 11/15/2024 11:37 AM EST ? [facility] ?[address] ?[place] [address] ?XRay Report ? Signed ? Patient: Jose D Dickens ?MR#: [id number] ? : 1960 ?Acct:[id number] ? Age/Sex: 64 / M ?ADM Date: 11/15/24 ? Loc: HO.ED ? Attending Dr: ? Ordering Physician: Generic ED Physician ?? Date of Service: 11/15/24 ?? Procedure(s): XR knee RT 2V ?? Accession Number(s): [id number] ? cc: Generic ED Physician; KITA YOON NP ? CLINICAL HISTORY: fall ? AP and lateral views right knee ? Comparison: CR/TX - KNEE RIGHT 4 VIEWS [id number] - 04/02/19 09:56 EDT ? Findings: ?? No fractures, subluxations or dislocations. Small enthesophyte lateral ?? femoral epicondyle. ?? Joint intervals are preserved. ?? No osteochondral lesions or loose bodies. ?? Superior patellar retraction enthesophyte. ?? No suprapatellar joint effusion.No prepatellar soft tissue swelling. ?? Normal bone mineralization. Moderate calcified atherosclerotic disease. ?? No unusual radiopaque foreign body. ? Impression: ?? 1. No acute fractures or malalignment. ? This document has been electronically signed by: Rodolfo Baker MD on ?? 11/15/2024 11:35:09 ? Dictated By: ?Rodolfo Baker MD ? Signed By: ?<Electronically signed by Rodolfo Baker MD in OV> ?11/15/241135 ? DD/ 34 ? TD/TT: 11/15/24 1135 ? Cordwood Cutter Helper: ? Procedure Note Donotuseinterpreter, Image - 11/15/[address] [address] XRay Report Signed Patient: Jose D DickensMR#: [id number] : 1960Acct:[id number] Age/Sex: 64 / MADM Date: 11/15/24 Loc: HO.ED Attending Dr: Ordering Physician: Generic ED Physician Date of Service: 11/15/24 Procedure(s): XR knee RT 2V Accession Number(s): [id number] cc: Generic ED Physician; KITA YOON NP CLINICAL HISTORY: fall AP and lateral views right knee Comparison: CR/TX - KNEE RIGHT 4 VIEWS [id number] - 04/02/19 09:56 EDT Findings: No fractures, subluxations or dislocations. Small enthesophyte lateral femoral epicondyle. Joint intervals are preserved. No osteochondral lesions or loose bodies. Superior patellar retraction enthesophyte. No suprapatellar joint effusion.No prepatellar soft tissue swelling. Normal bone mineralization. Moderate calcified atherosclerotic disease. No unusual radiopaque foreign body. Impression: 1. No acute fractures or malalignment. This document has been electronically signed by: Rodolfo Baker MD on 11/15/2024 11:35:09 Dictated By: Rodolfo Baker MD Signed By: <Electronically signed by Rodolfo Baker MD in OV> 11/15/24 1136 DD/ 34 TD/TT: 11/15/241134 Cordwood Cutter Helper: [facility] External Provider IMG XR PROCEDURES Edited Result - Final * (ABNORMAL) POCT HGB A1C (09/10/2024 9:07 AM EST) Hemoglobin A1C 6.5(A) 4.0 - 6.0 % QC Media Lot # [id number] Lot# Expiration Date Blood 09/10/2024 9:07 AM EST [facility] POINT OF CARE TEST ENTER/EDIT OR DERABLES Final Result * POCT Glucose (09/10/2024 9:04 AM EST) Pathologist [facility] Glucose Blood, POC 101 60 - 200 mg/dL QC Media Lot # [id number] Lot# Expiration Date ,025 Blood Capillary blood specimen / Unknown 09/10/2024 9:04 AM EST [facility] POINT OF CARE TEST ENTER/EDIT OR DERABLES Final Result * Lipid Panel, Standard (06/04/2023 8:24 AM EDT) Pathologist [facility] Triglycerides 1,669 mg/dL [facility] Comment:Lipemic SpecimenDesi rable Triglyceride: less than 150 mg/dLBorderline High Triglyceride 150-199 mg/dLHigh Triglyceride: 200-499 mg/dLVery High Triglyceride: greater than or equal to 5OO mg/dL Cholesterol 347 mg/dL [facility] Comment:Lipemic SpecimenDesi rable Cholesterol: less than 200 mg/dLBorderline High Cholesterol: 200-239 mg/dLHigh Cholesterol: greater than 239 mg/dL LDL Cholesterol Calculated TNP mg/dl [facility] Comment:Unable to calculate the LDL. The formula of Friedwald,Stack, and Zeina is only valid if the triglycerides areless than 400 mg/dl. HDL Cholesterol 22 mg/dL [facility] Comment:Lipemic SpecimenDesi rable HDL: greater than 40 mg/dL Note: This HDL assay may give artificially low results in patients with liver disease. 06/04/2023 8:24 AM EDT 06/04/2023 9:09 AM EDT [facility] External Provider LAB BLO OD ORDERABLES Final Result [facility] [address] [place] [address] [phone] from Last 3 Months or Most Recently Relevant to Health Maintenance Insurance [facility] * Guarantor: Jose D Dickens Account Type Relation to Patient Date of Phone Billing Address Dental Self 1960 [address] [facility] [address] [place] [id number] DENTAL - [facility] Care Teams Resident Services Director Relationship Specialty Start Date End Date Kita Yoon ANP [address] [place] [address] PCP - General Family Medicine 06/21/20 Renard Ritchie MD [address] [facility] [address] [place] [address] Nephrology 10/13/24 Eliecer Bob MD [address] [place] [address] Endocrinology 10/13/24 Albert Galaviz MD [address] [place] [address] Cardiology 10/13/24
--- OUTSIDE RECORDS SUMMARY | 2024-12-01 15:05 | XMS_ITS | Encounter Summary ---
Author Organization [employer] Address [address] [facility] 7t [place] [address] Care Team Providers Care Press Operator Name Role Phone Ambreen Nuvia ARSHAD Primary Care Provider [phone] Renard Ritchie MD Unavailable [phone] Eliecer Bob MD Unavailable [phone] Albert Galaviz MD Unavailable [phone] Reason for Visit * Reason Onset Date Comments Med Refill 12/01/2024 Encounter Details Date Type Department Care Team ([facility] st Contact Info) Description 12/01/2024 Telephone [facility] MED & PEDS [address] [place] [address] Lynn Armijo, NIMISHA [address] [place] [address] Med Refill Social History Tobacco Use Types Packs/Day Years [...] * Telephone Encounter - PAVITHRA Mcdonald - 12/01/2024 11:22 AM EST I thought I spoke with him last night and updated him on plan? He said he would oyster picker rx for tramadol today. 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 Asking for a refill of Tramadol. States this is the only medication that gives him any pain relief. States he does not want Butrans patches anymore as they were not effective. I was reading the note from your visit from yesterday and I see you are waiting for a c/b from mark ritchie, however pt still asking for Tramadol refill as he is in pain. Please advise. documented in this encounter Plan of Treatment Upcoming Encounters Date Type Department Care Team (Late st Contact Info) Description 01/04/2025 11:00 AM EDT Telemedicine [facility] MEDICINE [address] [place] [address] Nuvia Crook ANP [address] [place] [address] 03/29/2025 9:30 AM EDT Telemedicine [facility] MED & PEDS [address] [place] [address] Lynn Armijo, NIMISHA [address] [place] [address] documented as of this encounter Visit Diagnoses Diagnosis End stage renal disease ([facility]) End stage renal disease Other chronic pain documented in this encounter Additional Health Concerns Assessment Noted Time PHQ-9 Depression Total Score: 0 09/10/20 9:05 AM EST documented as of this encounter Care Teams Press Operator Relationship Specialty Start Date End Date Nuvia Crook ANP [address] [place] [address] PCP - General Family Medicine 06/21/20 Renard Ritchie MD 100 [facility] 200 [place] [address] Nephrology 10/13/24 Eliecer Bob MD [address] [place] [address] Endocrinology 10/13/24 Albert Galaviz MD [address] [place] [address] Cardiology 10/13/24 documented as of this encounter
--- OUTSIDE RECORDS SUMMARY | 2024-12-01 15:05 | XMS_ITS | Encounter Summary ---
Author Organization [employer] Address [address] 7[address] [place] [address] Care Team Providers Care Molding Process Technician Name Role Phone Ambreen Nuvia ARSHAD Primary Care Provider [phone] Renard Ritchie MD Unavailable [phone] Eliecer Bob MD Unavailable [phone] Albert Galaviz MD Unavailable [phone] Encounter Details Date Type Department Care Team (Latest Contact Info) Description 11/30/2024 Travel Social History Tobacco Use Types Packs/Day Years [...] Info) Description 01/04/2025 11:00 AM EDT Telemedicine [facility] MEDICINE [address] [place] [address] Nuvia Crook ANP [address] [place] [address] 03/29/2025 9:30 AM EDT Telemedicine [facility] MED & PEDS [address] [place] [address] Lynn Armijo, NIMISHA [address] [place] [address] documented as of this encounter Visit Diagnoses Not on filedocumented in this encounter Additional Health Concerns Assessment Noted Time PHQ-9 Depression Total Score: 0 09/10/20 24 9:05 AM EST documented as of this encounter Care Teams Molding Process Technician Relationship Specialty Start Date End Date Nuvia Crook ANP [address] [place] [address] PCP - General Family Medicine 06/21/20 Renard Ritchie MD 100 [facility] 200 [place] [address] Nephrology 10/13/24 Eliecer Bob MD [address] [place] [address] Endocrinology 10/13/24 Albert Galaviz MD [address] [place] [address] Cardiology 10/13/24 documented as of this encounter
--- OUTSIDE RECORDS SUMMARY | 2024-12-01 15:05 | XMS_ITS | Encounter Summary ---
Author Organization [employer] Address [address] [place] [address] Care Team Providers Care Plastic Molding Operator Name Role Phone Nuvia Crook Primary Care Provider [phone] Renard Ritchie MD Unavailable [phone] Eliecer Bob MD Unavailable [phone] Albert Galaviz MD Unavailable [phone] Encounter Details Date Type Department Care Team (Late st Contact Info) Description 11/30/2024 Telephone [facility] MEDICINE [address] [place], [place] [phone] Nuvia Crook ANP [address] [place], [place] [phone] Social History Tobacco Use Types Packs/Day Years [...] encounter Miscellaneous Notes * Telephone Encounter - Marjorie Berry - 11/30/2024 10:28 AM EST Pt was called to register for telephone call pt did not answer left voicemail. documented in this encounter Plan of Treatment Upcoming Encounters Date Type Department Care Team ([facility] st Contact Info) Description 01/04/2025 11:00 AM EDT Telemedicine [facility] MEDICINE [address] [place] [address] Nuvia Crook, ANP [address] [place] [address] 03/29/2025 9:30 AM EDT Telemedicine [facility] MED & PEDS [address] [place] [address] Lynn Armijo, NIMISHA [address] [place] [address] documented as of this encounter Visit Diagnoses Not on filedocumented in this encounter Additional Health Concerns Assessment Noted Time PHQ-9 Depression Total Score: 0 09/10/20 24 9:05 AM EST documented as of this encounter Care Teams Plastic Molding Operator Relationship Specialty Start Date End Date Nuvia Crook ANP [address] [place] [address] PCP - General Family Medicine 06/21/20 Renard Ritchie MD 100 [facility] 200 [place] [address] Nephrology 10/13/24 Eliecer Bob MD [address] [address] Endocrinology 10/13/24 Albert Galaviz MD 5[address] [place] [address] Cardiology 10/13/24 documented as of this encounter
--- OUTSIDE RECORDS SUMMARY | 2024-12-01 15:05 | XMS_ITS | Encounter Summary ---
Author Organization [employer] Address [address] [facility] [address] [place] [address] Care Team Providers Care Case Assistant Name Role Phone Ambreen Nuvia ARSHAD Primary Care Provider [phone] Renard Ritchie MD Unavailable [phone] Eliecer Bob MD Unavailable [phone] Albert Galaviz MD Unavailable [phone] Encounter Details Date Type Department Care Team (Latest Contact Info) Description 12/01/2024 Travel Social History Tobacco Use Types Packs/Day [...] Info) Description 01/04/2025 11:00 AM EDT Telemedicine [facility] MEDICINE [address] [place] [address] Nuvia Crook ANP 230 [place] [address] 03/29/2025 9:30 AM EDT Telemedicine [facility] MED & PEDS [address] [place] [address] Lynn Armijo, NIMISHA 505 [place] [address] documented as of this encounter Visit Diagnoses Not on filedocumented in this encounter Additional Health Concerns Assessment Noted Time PHQ-9 Depression Total Score: 0 09/10/20 24 9:05 AM EST documented as of this encounter Care Teams Case Assistant Relationship Specialty Start Date End Date Nuvia Crook ANP [address] [place] [address] PCP - General Family Medicine 06/21/20 Renard Ritchie MD 100 [facility] 200 [place] [address] Nephrology 10/13/24 Eliecer Bob MD [address] [place] [address] Endocrinology 10/13/24 Albert Galaviz MD [address] [place] [address] Cardiology 10/13/24 documented as of this encounter
--- OUTSIDE RECORDS SUMMARY | 2024-12-01 15:05 | XMS_ITS | Clinical Summary ---
Author Organization [facility] Address [address] [place] [address] Phone Care Team Providers Care Jammer Hooker Name Role Phone Nuvia Crook NP Primary [...] 01/2021 Essential hypertension 12/29/202005/29 Hypertensive heart disease [facility] congestive heart failure 12/29/2020 05/29/2021 Morbid obesity 12/29/2020 05/29/2021 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/29/2020 05/29/2021 Sleep apnea 12/29/2020 05/29/2021 Type 2 diabetes mellitus 12/29/202011/2020 Encounters Date Type Department Care Team Description 11/30/2024 Treatment [facility] [address] [address] Renard Ritchie MD 11/27/2024 Treatment [facility] [address] [address] Renard Ritchie MD 11/20/2024 Treatment [facility] [address] [address] Renard Ritchie MD 11/06/2024 Treatment [facility] [address] [address] Renard Ritchie MD 10/30/2024 Treatment [facility] [address] [address] Renard Ritchie MD 10/20/2024 Treatment [facility] [address] [address] Renard Ritchie MD 10/12/2024 Treatment [facility] [address] [address] Renard Ritchie MD 10/07/2024 Treatment [facility] [address] [address] Renard Ritchie MD 09/30/2024 Treatment [facility] [address] [address] Renard Ritchie MD 09/22/2024 Treatment [facility] [address] [address] Renard Rithcie MD 09/14/2024 Treatment [facility] [address] [address] Renard Ritchie MD 09/12/2024 Treatment [facility] [address] [address] Renard Ritchie MD 09/11/2024 Treatment [facility] [address] [address] Renard Ritchie MD 09/04/2024 Treatment [facility] [address] [address] Renard Ritchie MD 09/02/2024 Orders Only [facility] [address] [address] Renard Ritchie MD from Last 3 Months [...] Health Maintenance Due Date Last Done Comments Hepatitis B Vaccine (1 of 5 - Risk Dialysis 4-dose series) 1980 06/05/2023, 06/13/2022, 03/14/2022, Additional history exists Colorectal Cancer Screening: Annual FOBT 2009 Colorectal Cancer Screening: Colonoscopy 2009 Colorectal Cancer Screening: Sigmoidoscopy 2009 Diabetes: Ophthalmology Exam 11/28/2020 Diabetes: Pedal Pulse Checked 11/28/2020 Diabetes: Sensory Foot Exam 11/28/2020 Diabetes: Visual Foot Exam 11/28/2020 Diabetes: Hemoglobin A1C 12/11/2024 09/10/2024, 08/28 Pneumococcal Vaccine: Pediat rics (0 to 5 Years) and At-Risk Patients (6 to 64 Years) Completed 02/04/2024, 04/07/2019, 03/24/2010 Influenza Vaccine Completed 09/10/2024, , 07/24/2022, Additional history exists Procedures Procedure Name Priority Date/Time Associated Diagnosis Comments [facility] () Routine 10/07/2024 3:00 AM EST POTASSIUM [...] of8 resultswithin the time period is included. Lipemia ++(A) Normal [facility] Icterus Normal Normal [facility] Hemolysis Normal Normal [facility] 10/07/2024 3:00 AM EST 10/08/2024 1:45 PM EST Renard Ritchie MD LAB [id number] SOLICITED RESULTS Final Result Performing Organization Address [facility] Co de Phone Number APS [facility] [address] [place] [address] * Potassium (10/07/2024 3:00 AM EST) Only the most recent of4 resultswithin the time period is included. Potassium 4.0 3.4 - 5.0 mEq/L [facility] 10/07/2024 3:00 AM EST 10/08/2024 1:45 PM EST Renard Ritchie MD LAB BLOOD ORDERABLES Final Re sult Performing Organization Address [facility]/ZIP Co de Phone Number [facility] [address] [place] [address] * (ABNORMAL) Phosphorus (10/05/2024 3:00 AM EST) Phosphorus, Serum 5.8(H) 2.5 - 5.0 mg/dL [facility] 10/05/2024 3:00 AM EST 10/06/2024 1:25 PM EST Renard Ritchie MD LAB BLOOD ORDERABLES Final Re sult Performing Organization Address [facility] Co de Phone Number [facility] [address] [place] [address] * (ABNORMAL) Kt/V Natural Log, URR (09/30/2024 3:00 AM EST) Only the most recent of2 resultswithin the time period is included. Treatment Time 232 min [facility] Pre-Weight, lb [...] 3:23 PM EST Renard Ritchie MD LAB [id number] SOLICITED RESULTS Final Result Performing Organization Address [facility] Co de Phone Number [facility] [address] [place] [address] * (ABNORMAL) Calcium Phosphorus Product, Adjusted (09/30/2024 [...] 3:23 PM EST Renard Ritchie MD LAB [id number] SOLICITED RESULTS Final Result Performing Organization Address [facility] Co de Phone Number [facility] [address] [place] [address] * Hepatitis B Surface Ag w/Reflex Confirmation (09/30/2024 3:00 AM EST) Only the most recent of2 resultswithin the time period is included. Hep B Surface Antigen Negative Negative [facility] 09/30/2024 3:00 AM EST 10/01/2024 3:23 PM EST Renard Ritchie MD LAB BLOOD ORDERABLES Final Re sult Performing Organization Address [facility] de Phone Number [facility] [address] [place] [address] * (ABNORMAL) TSAT (09/30/2024 3:00 AM EST) Only the most recent of2 resultswithin the time period is included. Iron 65 65 - 175 ug/dL [facility] Transferrin 140(L) 215 - 365 mg/dL [facility] TIBC 196(L) 211 - 406 ug/dL [facility] Iron Saturation (TSat) 33 22 - 52 % [facility] 09/30/2024 3:00 AM EST 10/01/2024 3:23 PM EST Renard Ritchie MD LAB BLOOD ORDERABLES Final Re sult Performing Organization Address [facility] de Phone Number [facility] [address] [place] [address] * (ABNORMAL) CBC and Differential (09/30/2024 3:00 AM EST) Only the most recent of2 resultswithin the time period is included. Pathologist [facility] DIFFERENTIAL MANUAL, 2 Not Indicated [facility] White [...] MD LAB BLOOD ORDERABLES Final Re sult [facility] [address] [place] [address] * ALT (09/30/2024 3:00 AM EST) Only the most recent of2 resultswithin the time period is included. [facility] ALT (SGPT) 24 10 - 49 U/L [facility] 09/30/2024 3:00 AM EST 10/01/2024 3:23 PM EST Renard Ritchie MD LAB BLOOD ORDERABLES Final Re sult Performing Organization Address [facility] de Phone Number [facility] [address] [place] [address] * AST (09/30/2024 3:00 AM EST) Only the most recent of2 resultswithin the time period is included. AST (SGOT) 17 <34 U/L [facility] 09/30/2024 3:00 AM EST 10/01/2024 3:23 PM EST Renard Ritchie MD LAB BLOOD ORDERABLES Final Re sult Performing Organization Address [facility] Phone Number [facility] [address] [place] [address] * Protein, total (09/30/2024 3:00 AM EST) Only the most recent of2 resultswithin the time period is included. Total Protein 8.0 6.4 - 8.9 g/dL [facility] 09/30/2024 3:00 AM EST 10/01/2024 3:23 PM EST Renard Ritchie MD LAB BLOOD ORDERABLES Final Re sult Performing Organization Address [facility] de Phone Number [facility] [address] [place] [address] * Alkaline phosphatase (09/30/2024 3:00 AM EST) Only the most recent of2 resultswithin the time period is included. Alkaline Phosphatase 83 46 - 116 U/L [facility] 09/30/2024 3:00 AM EST 10/01/2024 3:23 PM EST Renard Ritchie MD LAB BLOOD ORDERABLES Final Re sult Performing Organization Address [facility] de Phone Number [facility] [address] [place] [address] * Magnesium (09/30/2024 3:00 AM EST) Only the most recent of2 resultswithin the time period is included. Magnesium 2.0 1.9 - 2.7 mg/dL [facility] 09/30/2024 3:00 AM EST 10/01/2024 3:23 PM EST Renard Ritchie MD LAB BLOOD ORDERABLES Final Re sult Performing Organization Address [facility] Co de Phone Number [facility] [address] [place] [address] * Lactate dehydrogenase (09/30/2024 3:00 AM EST) Only the most recent of2 resultswithin the time period is included. LDH 160 120 - 246 U/L [facility] 09/30/2024 3:00 AM EST 10/01/2024 3:23 PM EST us Renard Ritchie MD LAB BLOOD ORDERABLES Final Re sult Performing Organization Address [facility] de Phone Number [facility] [address] [place] [address] * (ABNORMAL) Glucose, random (09/30/2024 3:00 AM EST) Only the most recent of2 resultswithin the time period is included. Glucose 120(H) 74 - 109 mg/dL [facility] 09/30/2024 3:00 AM EST 10/01/2024 3:23 PM EST Renard Ritchie MD LAB BLOOD ORDERABLES Final Re sult Performing Organization Address [facility] de Phone Number [facility] [address] [place] [address] * (ABNORMAL) Creatinine, serum (09/30/2024 3:00 AM EST) Only the most recent of2 resultswithin the time period is included. Creatinine 11.14(H) 0.70 - 1.30 mg/dL [facility] 09/30/2024 3:00 AM EST 10/01/2024 3:23 PM EST Renard Ritchie MD LAB BLOOD ORDERABLES Final Re sult Performing Organization Address [facility] de Phone Number [facility] [address] [place] [address] * (ABNORMAL) Bilirubin, total (09/30/2024 3:00 AM EST) Only the most recent of2 resultswithin the time period is included. Total Bilirubin 0.2(L) 0.3 - 1.2 mg/dL [facility] 09/30/2024 3:00 AM EST 10/01/2024 3:23 PM EST Renard Ritchie MD LAB BLOOD ORDERABLES Final Re sult Performing Organization Address [facility] de Phone Number [facility] [address] [place] [address] * (ABNORMAL) Electrolyte panel (09/30/2024 3:00 AM [...] ORDERABLES Final Re sult Performing Organization Address [facility] de Phone Number [facility] [address] [place] [address] * (ABNORMAL) Hemoglobin (09/16/2024 3:00 AM EST) Hgb 10.7(L) 13.7 - 17.5 g/dL [facility] Hemoglobin x 3 32.1(L) 41.1 - 52.5 g/dL [facility] 09/16/2024 3:00 AM EST 09/17/2024 12:29 PM EST Renard Ritchie MD LAB BLOOD ORDERABLES Final Re sult Performing Organization Address [facility] de Phone Number [facility] [address] [place] [address] * Calcium, Adjusted w Albumin (09/11/2024 3:00 AM EST) Calcium 9.0 8.6 - 10.3 mg/dL [facility] Albumin 4.8 3.6 - 5.4 g/dL [facility] Calcium, Adjusted Total 9.0 8.6 - 10.3 mg/dL [facility] 09/11/2024 3:00 AM EST 09/12/2024 12:55 PM EST Renard Ritchie MD LAB BLOOD ORDERABLES Final Re sult Performing Organization Address [facility] de Phone Number [facility] [address] [place] [address] * (ABNORMAL) Ferritin (09/02/2024 3:00 AM EST) Ferritin 1,240(H) 22 - 322 ng/mL [facility] 09/02/2024 3:00 AM EST 09/03/2024 5:49 PM EST Renard Ritchie MD LAB BLOOD ORDERABLES Final Re sult Performing Organization Address [facility] de Phone Number [facility] [address] [place] [address] * Hemoglobin A1c (09/14/2019 9:05 AM EST) [...] ? sample. Estimated Average Glucose 189 MG/DL [facility] Comment: eAG = Estimated average glucose which is %A1C expressed as average glucose, using the formula of the R1H-Gjcdask Average Glucose study (ADAG), Diabetes Care, Vol.31,#8, May. 2007 09/14/2019 9:05 AM EST us Gonzalez Hillman CONTENT ANALYST LAB BLOOD ORDERABLES Final R esult MEENAKSHI from Last 3 Months or Most Recently Relevant to Health Maintenance Insurance [facility] [id number] [facility] ([id number]) [place] [id number] [facility] ([id number]) Care Teams Jammer Hooker Relationship Specialty Start Date End Date Nuvia Crook NP [address] [place] [address] PCP - General Nurse Practitioner 10/16/21
--- OUTSIDE RECORDS SUMMARY | 2024-12-01 15:05 | XMS_ITS | Encounter Summary ---
Author Organization [employer] [facility] Address [address] [place] [address] Care Team Providers Care Allocation Analyst Name Role Phone Nuvia Crook Primary Care Provider [phone] Renard Ritchie MD Unavailable [phone] Eliecer Bob MD Unavailable [phone] Albert Galaviz MD Unavailable Reason for Visit * Reason Comments Med Refill Encounter Details Date Type Department Care Team (Late st Contact Info) Description 12/01/2024 Refill [facility] MEDICINE [address] [place], [place] [phone] Nuvia Crook, ANP [address] [place], [place] [phone] End stage renal disease (CMS/HCC); Other chronic pain Social History Tobacco Use [...] Info) Description 01/04/2025 11:00 AM EDT Telemedicine [facility] MEDICINE [address] [place] [address] Nuvia Crook ANP [address] [place] [address] 03/29/2025 9:30 AM EDT Telemedicine [facility] MED & PEDS [address] [place] [address] Lynn Armijo, NIMISHA [address] [place] [address] documented as of this encounter Visit Diagnoses Diagnosis End stage renal disease (CMS/HCC) End stage renal disease Other chronic pain documented in this encounter Additional Health Concerns Assessment Noted Time PHQ-9 Depression Total Score: 0 09/10/20 24 9:05 AM EST documented as of this encounter Care Teams Allocation Analyst Relationship Specialty Start Date End Date Nuvia Crook ANP [address] [place] [address] PCP - General Family Medicine 06/21/20 Renard Ritchie MD [address] [facility] [address] [place] [address] Nephrology 10/13/24 Eliecer Bob MD [address] [place] [address] Endocrinology 10/13/24 Albert Galaviz MD [address] [place] [address] Cardiology 10/13/24 documented as of this encounter
--- OUTSIDE RECORDS SUMMARY | 2024-12-01 15:05 | XMS_ITS | Encounter Summary ---
Author Organization [facility] [facility] Address [address] [place] [address] Care Team Providers Care Business Development Representative Name Role Phone Nuvia Crook Primary Care Provider Renard Ritchie MD Unavailable Eliecer Bob MD Unavailable [phone] Albert Galaviz MD Unavailable Reason for Visit * Reason Comments Med Refill Encounter Details Date Type Department Care Team (Late st Contact Info) Description 10/30/2022 Refill [facility]S [address] [place] [address] Nuvia Crook ANP [address] [place] [address] Dorsalgia, unspecified Social History Tobacco Use Types Packs/Day Years Used Date Smoking Tobacco: Never Assessed Sex and Gender Information Value Date Recorded Sex Assigned at Male 08/27/2022 10:16 AM EDT Legal Sex Male 10:16 AM EDT Gender Identity Male 08/27/2022 10:16 AM EDT Sexual Orientation Straight 08/27/2022 10 :16 AM EDT documented as of this encounter Plan of Treatment Upcoming Encounters Date Type Department Care Team (Late Contact Info) Description 01/04/2025 11:00 AM EDT Telemedicine [facility] MEDICINE [address] [place] [address] Nuvia Crook ANP [address] [place], [place] [phone] 03/29/2025 9:30 AM EDT Telemedicine [facility]S [address] [place] [address] Lynn Armijo, RN [address] [place] [address] documented as of this encounter Visit Diagnoses Diagnosis Dorsalgia, unspecified documented in this encounter Care Teams Business Development Representative Relationship Specialty Start Date End Date Nuvia Crook ANP [address] [place] [address] PCP - General Family Medicine 06/21/20 Renard Ritchie MD [address] [facility] [address] [place] [address] Nephrology 10/13/24 Eliecer Bob MD [address] [place] [address] Endocrinology 10/13/24 Albert Galaviz MD [address] [place] [address] Cardiology 10/13/24 documented as of this encounter
--- OUTSIDE RECORDS SUMMARY | 2024-12-01 15:05 | XMS_ITS | Encounter Summary ---
Author Organization [employer] [facility] Address [address] [place] [address] Care Team Providers Care Storage Worker Name Role Phone Nuvia Crook Primary Care Provider [phone] Renard Ritchie MD Unavailable Eliecer Bob MD Unavailable [phone] Albert Galaviz MD Unavailable Reason for Visit * Reason Comments Med Refill Encounter Details Date Type Department Care Team ([facility] st Contact Info) Description 02/28/2023 Refill [facility] MEDICINE [address] [place], [place] [phone] Nuvia Crook, ANP [address] [place], [place] [phone] Pain Social History Tobacco Use Types Packs/Day Years [...] Orientation Straight 08/27/2022 10 :16 AM EDT COVID-19 Exposure Response Date Recorded In the last 10 days, have yo u been in contact with someone who was confirmed or suspected to have Coronavirus/COVID-19? No / Unsure 02/22/2023 12:53 PM EDT documented as of this encounter Plan of Treatment Upcoming Encounters Date Type Department Care Team (Late st Contact Info) Description 01/04/2025 11:00 AM EDT Telemedicine [facility] MEDICINE [address] [place] [address] Nuvia Crook ANP [address] [place] [address] 03/29/2025 9:30 AM EDT Telemedicine [facility] MED [facility] PEDS [address] [place] [address] Lynn Armijo, NIMISHA [address] [place] [address] documented as of this encounter Visit Diagnoses Diagnosis Pain Generalized pain documented in this encounter Care Teams Storage Worker Relationship Specialty Start Date End Date Nuvia Crook ANP [address] [place] [address] PCP - General Family Medicine 06/21/20 Renard Ritchie MD [address] [facility] [address] [place] [address] Nephrology 10/13/24 Eliecer Bob MD [address] [facility] [address] [place] [address] Endocrinology 10/13/24 Albert Galaviz MD [address] [place] [address] Cardiology 10/13/24 documented as of this encounter
--- OUTSIDE RECORDS SUMMARY | 2024-12-01 15:05 | XMS_ITS | Encounter Summary ---
Author Organization [employer] [facility] Address [address] [place] [address] Care Team Providers Care Direct Service Provider Name Role Phone Crook Nuvia ARSHAD Primary Care Provider [phone] Renard Ritchie MD Unavailable [phone] Eliecer Bob MD Unavailable [phone] Albert Galaviz MD Unavailable [phone] Encounter Details Date Type Department Care Team (Late st Contact Info) Description 11/16/2024 Orders Only GENERIC EXTERNAL DATA DEPARTMENT [...] Info) Description 01/04/2025 11:00 AM EDT Telemedicine [facility] MEDICINE [address] [place] [address] Nuvia Crook ANP [address] [place] [address] 03/29/2025 9:30 AM EDT Telemedicine [facility] MED & PEDS [address] [place], [place] [phone] Lynn Armioj, RN [address] [place] [address] documented as of this encounter Procedures Procedure Name Priority Date/Time Associated Diagnosis Comments CBC WITH AUTO DIFFERENTIAL Routine 11/16/2024 11:13 AM EST B TYPE NATRIURETIC PEPTIDE (BNP) Routine 11/16/2024 11:13 AM EST MAGNESIUM Routine 11/16/2024 11:13 AM EST COMPREHENSIVE METABOLIC PANEL Routine 11/16/2024 11:13 AM EST documented in this encounter Results * (ABNORMAL) B Type Natriuretic Peptide (BNP) (11/16/2024 11:13 AM EST) B Type Natriuretic Peptide 827(H) <100 pg/mL [facility] Comment:For those patients w ho are being treated with Natrecor(nesiritide, recombinant BNP), BNP testing should beperformed at least two hours post treatment in order toensure that only endogenous levels of BNP are detected. 11/16/2024 11:1 3 AM EST 11/16/2024 12:23 PM EST Generic External Data Provider LAB BLOOD ORDERAB LES Final Result Performing Organization Address [facility]/ZIP Co de Phone Number [facility] [address] [place] [phone] * Magnesium (11/16/2024 11:13 AM EST) Pathologist [facility] Magnesium 2.0 1.6 - 2.6 mg/dL [facility] 11/16/2024 11:1 3 AM EST 11/16/2024 11:18 AM EST Generic External Data Provider LAB BLOOD ORDERAB LES Final Result Performing Organization Address [facility] de Phone Number [facility] [address] [place] [phone] * (ABNORMAL) Comprehensive Metabolic Panel (11/16/2024 11:13 AM EST) Sodium 140 135 - 145 mmol/L [facility] Potassium 5.9(H) 3.3 - 5.1 mmol/L [facility] Chloride 96 96 - 108 mmol/L [facility] Carbon Dioxide 28 22 - 29 mmol/L [facility] Anion Gap 22(H) 12 - 20 [facility] Urea Nitrogen (BUN) 53(H) 9 - 16 mg/dL [facility] Creatinine, Serum 12.48(HH) 0.5 - 1.4 mg/dL [facility] Comment:Critical value for t est(s): RAUL Results called to tiara back by: WALDO Person calling: JESUS Date:11/16/2024 Time:11:35 Creatinine Clr Calc Pharmacy 7.1 [facility] Comment:eGFR (calculated fro m the MDRD study equation) and eCrCl(calculated from the Cockcroft-Gault equation) are based ondifferent parameters and may not yield comparable results.If eCrCl result is absurd, please check patient'sheight/weight. Estimated Glomerular Filt Rate 4 [facility] Comment:Chronic Kidney Disea se: Estimated GFR < 60 mL/min/1.37t8Uuvvam Kidney Disease: Estimated GFR < 15 mL/min/1.73m2 Glucose 171(H) 60 - 115 mg/dL [facility] Calcium 8.0(L) 8.4 - 10.2 mg/dL [facility] Bilirubin, Total 0.4 0.0 - 1.0 mg/dL [facility] Aspartate Amino Transferase 17 5 - 37 U/L [facility] Alanine Aminotransferase 20 0 - 40 U/L [facility] Total Protein 7.9 6.5 - 8.0 g/dL [facility] Albumin Level 3.9 3.5 - 5.0 g/dL [facility] Alkaline Phosphatase 79 39 - 117 U/L [facility] 11/16/2024 11:1 3 AM EST 11/16/2024 11:18 AM EST us Generic External Data Provider LAB BLOOD ORDERAB LES Final Result [facility] [address] [place] [phone] * (ABNORMAL) CBC auto differential (11/16/2024 11:13 AM EST) White Blood Count 6.9 4.8 - 10.8 X10*3/uL [facility] Red Blood Count 2.87(L) 4.60 - 5.80 X10*6/uL [facility] Hemoglobin 10.2(L) 14.0 - 18.0 g/dl [facility] Hematocrit 27.8(L) 42.0 - 52.0 % [facility] Mean Corpuscular Volume 96.9 80.0 - 98.0 fL [facility] Mean Corpuscular Hemoglobin 35.5(H) 27.0 - 33.0 pg [facility] Mean Corpuscular HGB Conc 36.7(H) 31.0 - 36.0 g/dl [facility] Red Cell Distribution Width 13.4 11.0 - 16.0 % [facility] Platelet Count 107(L) 160 - 400 X10*3/uL [facility] Mean Platelet Volume 12.5(H) 9.4 - 12.4 fL [facility] Neutrophils Percent Auto 72.5 45 - 73 % [facility] Imm Gran Pct Auto 0.4 0.0 - 0.4 % [facility] Lymphocytes Percent Auto 19.1(L) 20 - 40 % [facility] Monocytes Percent Auto 5.1 2 - 11 % [facility] Eosinophils Percent Auto 2.6 0 - 4 % [facility] Basophils Percent Auto 0.3 0 - 2 % [facility] NRBC Pct Auto 0.0 0.0 - 0.2 /100WBC [facility] Neutrophils Absolute Auto 5.0 2.0 - 8.3 x10*3/uL [facility] Imm Gran Abs Auto 0.03 0.00 - 0.03 X10*3/uL [facility] Lymphocytes Absolute Auto 1.3 1.2 - 4.9 X10*3/uL [facility] Monocytes Absolute Auto 0.4 0.1 - 1.2 X10*3/uL [facility] Eosinophils Absolute Auto 0.2 0.0 - 0.4 X10*3/uL [facility] Basophils Absolute Auto 0.0 0.0 - 0.2 X10*3/uL [facility] NRBC Abs Auto 0.000 0.0 - 0.012 X10*3/uL [facility] 11/16/2024 11:1 3 AM EST 11/16/2024 11:18 AM EST us Generic External Data Provider LAB BLOOD ORDERAB LES Final Result [facility] [address] [place] [phone] documented in this encounter Visit Diagnoses Not on filedocumented in this encounter Additional Health Concerns Assessment Noted Time PHQ-9 Depression Total Score: 0 09/10/20 24 9:05 AM EST documented as of this encounter Care Teams Direct Service Provider Relationship Specialty Start Date End Date Nuvia Crook ANP [address] [place] [address] PCP - General Family Medicine 06/21/20 Renard Ritchie MD [address] [facility] [address] [place] [phone] Nephrology 10/13/24 Eliecer Bob MD [address] [place] [address] Endocrinology 10/13/24 Albert Galaviz MD [address] [place] [address] Cardiology 10/13/24 documented as of this encounter
--- OUTSIDE RECORDS SUMMARY | 2024-12-01 15:05 | XMS_ITS | Encounter Summary ---
Author Organization [employer] [facility] Address [address] [place] [address] Care Team Providers Care Preschool Aide Name Role Phone Nuvia Crook Primary Care Provider [phone] Renard Ritchie MD Unavailable [phone] Eliecer Bob MD Unavailable Albert Galaviz MD Unavailable Reason for Visit * Reason Comments Med Change Request Encounter Details Date Type Department Care Team ([facility] st Contact Info) Description 04/05/2023 Refill [facility] MEDICINE [address] [place], [place] [phone] Nuvia Crook, ANP [address] [place], [place] [phone] Pain Social History Tobacco Use Types Packs/Day [...] encounter Miscellaneous Notes * Telephone Encounter - Myah Lewis RN - 04/08/2023 12:05 PM EDT Sent to [facility] 04/05. Received after hours. documented in this encounter Plan of Treatment Upcoming Encounters Date Type Department Care Team (Late st Contact Info) Description 01/04/2025 11:00 AM EDT Telemedicine [facility] MEDICINE [address] [place] [address] Nuvia Crook ANP [address] [place] [address] 03/29/2025 9:30 AM EDT Telemedicine [facility] MED & PEDS [address] [place] [address] Lynn Armijo, NIMISHA [address] [place] [address] documented as of this encounter Visit Diagnoses Diagnosis Pain Generalized pain documented in this encounter Care Teams Preschool Aide Relationship Specialty Start Date End Date Nuvia Crook ANP [address] [place] [address] PCP - General Family Medicine 06/21/20 Renard Ritchie MD [address] [facility] [address] [place] [phone] Nephrology 10/13/24 Eliecer Bob MD [address] [place] [phone] Endocrinology 10/13/24 Albert Galaviz MD [address] [place] [address] Cardiology 10/13/24 documented as of this encounter
== END 2024-12-01 15:02 | disposition home or self-care (01) ==
LOC: HO.CHCLNP 15:01
PROVIDERS: Visit Provider Nurse Practitioner Primary Care
DX: Z79.891 Long term (current) use of opiate analgesic (principal)
CPT/HCPCS: 36415; 80307

== ENCOUNTER 2025-02-23 08:50 | Outpatient (AMB) | payer OTHER, SELFPAY ==
--- NOTE | 2025-02-23 08:53 | A.OFFVIS_ITS ---
Vital Signs 02/23/25 08:55 02/23/25 09:32 Height 5 ft 11 in Weight 212 lb 8.41 oz BMI 29.6 BP 162/72 H 152/68 H Blood Pressure Location Rt brachial Position Sitting Pulse 70 Pulse Source Pulse Oximeter Pulse Oximetry (%) 97 Oxygen Delivery Method Room Air Intake Visit Reasons: DM Intake Note: Patient present today to follow up on Type 2 Diabetes Mellitus. Last Diabetic Eye exam: approx 2 weeks ago at [address] [place] [address] [facility] Last Podiatry Visit: Does not see a Conversion Worker Random Glucose: 94 mg/dl HgA1C: 5.2% 02/23/2025 Credit Portfolio Advisor Required: Yes Credit Portfolio Advisor Language: Dye Feeder Services: Credit Portfolio Advisor Present Credit Portfolio Advisor Name: Ramy [id number] Information Interpreted: non-clinical & clinical Accompanied by: Self / Same As Patient Allergies No Known Allergies Allergy (Verified 02/23/25 08:56) Medication List - Last Reconciled 02/23/25 by CORNELIO Sol albuterol sulfate 90 mcg/actuation (Ventolin HFA) 2 puffs PO Q4H PRN aspirin 1 tab PO DAILY atorvastatin 80 mg PO BEDTIME blood sugar diagnostic (FreeStyle Lite Strips) As directed 4x DAILY blood-glucose meter (FreeStyle Lite Meter kit) As directed blood-glucose sensor (FreeStyle Abhishek 3 Plus Sensor device) Apply 1 new sensor every 15 days as directed to monitor blood glucose continuously. blood-glucose,dragsaw operator,cont (FreeStyle Abhishek 3 [place]) Use daily to monitor blood glucose levels continuously. carvedilol 25 mg PO BID 90 days cholecalciferol (vitamin D3) 2 tabs PO DAILY diclofenac sodium 1% (Voltaren Arthritis Pain) 4 grams topical QID doxazosin 2 mg PO DAILY fluticasone furoate 200 mcg/actuation (Arnuity Ellipta) 1 inh inhalation DAILY gabapentin 300 mg PO BEDTIME icosapent ethyl (Vascepa) 2 grams (2 x 1 gram) PO BID insulin aspart U-100 (Novolog FlexPen U-100 Insulin aspart) 8 units before breakfast on non-dialysis days, 12 units before lunch and 8 units before dinner isosorbide mononitrate ER 120 mg PO QAM lancets (FreeStyle Lancets) As directed lancets (TRUEplus Lancets) TEST BLOOD SUGAR FOUR TIMES DAILY DIRECTED nifedipine ER 120 mg (4 x 30 mg) PO BEDTIME 90 days omeprazole 20 mg PO BID 30 days oxcarbazepine 1 tab PO BID oxycodone 10 mg PO Q6H PRN pen needle, diabetic (BD Ultra-Fine Silvia Pen Needle) As directed five times a day perphenazine 1 tab PO BID sertraline 2 tabs PO DAILY tadalafil (Cialis) 5 mg PO DAILY 90 days torsemide 80 mg (4 x 20 mg) PO BID tramadol 2 tabs PO Q8H PRN zolpidem 1 tab PO BEDTIME PRN HPI Comments Details: Patient is a 63-year-old male with DM type 2 diagnosed in in 1999, who presents for diabetic follow up. Patient's hemoglobin A1c is 5.2% today. I reviewed a CGM download after his last appointment which showed frequent hypoglycemia, and he was instructed to decrease Toujeo from 12 units to 6 units nightly and decrease NovoLog to 6 units before breakfast on non dialysis days, no NovoLog before breakfast on dialysis days, and decrease NovoLog from 20 units at lunch and 14 at dinner to 10 units before lunch and dinner. Patient says this was not the instruction he was given. He discontinued Toujeo and he is taking 8 units of NovoLog before breakfast, 12 units before lunch and 18 units before dinner. 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 He denies episodes of hypoglycemia. When CGM alerts him to a low he checks a fingerstick reading immediately it is always above 70. He denies symptoms of hypoglycemia associated with these alerts. His POC today was 94 mg/dL. During the appointment when he scanned his CGM it said his blood sugar was 69. He had no symptoms. His POC was rechecked and was 92 mg/dL. Past medical history includes: DM2, CHF, HTN, HLD, HTG, ESRD on HD MWF, sleep apnea, hx pancreatitis (2012, 2020) Micro and macrovascular complications: + retinopathy, + nephropathy, +neuropathy, PAD The patient's blood pressure was elevated today. It improved when I rechecked it. He has hemodialysis tomorrow, and it will be rechecked there. He denies chest pain, shortness of breath, dizziness, lower extremity edema. Patient says blood pressures generally run higher in the morning. Care team Nephrology-Dr Ritchie-at HD Cardiology-Dr Gibbs/Patricio ROS: Constitutional: No fevers, chills, night sweats or increased fatigue Eyes: No vision changes Respiratory: No shortness of breath Cardiovascular: No chest pain, chest pressure or chest discomfort. No palpitations or pedal edema. Gastrointestinal: No anorexia, nausea, vomiting or diarrhea. No abdominal pain Neurologic: No headache, dizziness, syncope Hematologic/Lymphatics: No bleeding Endocrine: No polyuria, polydipsia, shakiness, weakness. Physical exam: Constitutional: Alert, in no distress. Head: Normocephalic. Eyes: Pupils are equal, round and reactive to light. Extraocular muscles intact. Neck: Supple, Full range of motion. No lymphadenopathy. Respiratory: Clear to auscultation. Cardiovascular: S1 S2 regular. No murmurs. Feet: The patient refused foot exam today. He denies open wounds. [facility] Medical History (Updated 11/26/24 @ 00:00 by Pamella Sesay) Arthritis of knee, right Knee pain, right Insulin long-term use Diabetic neuropathy Type 2 diabetes, controlled, with renal manifestation ESRD (end stage renal disease) on dialysis CHF exacerbation Diabetes type 2, uncontrolled Anemia HTN (hypertension) Heart failure with preserved ejection fraction CKD (chronic kidney disease) stage 4, GFR 15-29 ml/min Congestive heart failure Type 2 diabetes mellitus with unspecified complications Diastolic dysfunction Essential hypertension Hyperglycemia Hypertensive crisis Pancreatitis Chronic kidney disease, stage 4 (severe) Erectile dysfunction Depression with anxiety Proteinuria Diverticulitis Type 2 diabetes mellitus with hyperglycemia, with long-term current use of insulin Type 2 diabetes mellitus with polyneuropathy Type 2 diabetes mellitus with chronic kidney disease Hypertension Hypertriglyceridemia Diabetes mellitus with hyperglycemia, with long-term current use of insulin History of alcohol abuse Abnormal biopsy of kidney Peptic ulcer Hx of pancreatitis Anxiety Depression COPD (chronic obstructive pulmonary disease) History of headache Sleep apnea Asthma On beta doron at home Elevated cholesterol CHF (congestive heart failure) HTN (hypertension) Surgical History History of esophagogastroduodenoscopy (EGD) History of surgery Hx of right inguinal hernia repair Hx of colonoscopy Family History Mother Diabetes Social History Household Members: None Housing: Apartment Are you a primary managed care liaison to a significant other at home: No Do you presently have visiting nurse or other home services: Yes (SHIELD INSTALLER) Alcohol intake: never Comment: pt sleeping Patient Tobacco Use Status: Never used Tobacco Tobacco use type: Cigarette Years Smoked: 30 Second Hand Smoke Exposure: Yes service: No Current occupational status: retired Physical Exam Vital Signs: Last Vital Signs Pulse 70 02/23/25 08:55 BP 152/68 H 02/23/25 09:32 Pulse Ox 97 02/23/25 08:55 Oxygen Delivery Method Room Air 02/23/25 08:55 BMI result Body Mass Index 29.6 Results AMB Hemoglobin A1c AMB Hemoglobin A1c 5.2 % Last Edit by DEUCE Donnelly on 02/23/25 09:12 Results Reviewed Results Reviewed: Laboratory Last Values Glucose (Clinic) 92 mg/dL (60-115) 02/23/25 09:28 Hgb A1c (Clinic) 5.2 % (4.0-6.0) 02/23/25 09:11 Laboratory Tests 09/14/19 03/09/20 02/06/21 09:05 Unknown 05:24 BUN Creatinine Hemoglobin A1c % 6.7 Hgb A1c (Clinic) AST ALT Triglycerides LDL Cholesterol Direct HDL Cholesterol Vitamin B12 402 Ur Random Microalbumin 849.0 Urine Creatinine Microalb/Creat Ratio 3810.5 08/19/21 06/07/22 06/04/23 05:18 08:42 08:24 BUN Creatinine Hemoglobin A1c % Hgb A1c (Clinic) AST ALT Triglycerides 1669 LDL Cholesterol Direct 56 HDL Cholesterol 22 Vitamin B12 Ur Random Microalbumin Urine Creatinine 78.59 Microalb/Creat Ratio 11/16/24 11/17/24 11/24/24 11:13 04:58 08:48 BUN 36 H Creatinine 9.00 H* Hemoglobin A1c % Hgb A1c (Clinic) 6.2 H AST 17 ALT 20 Triglycerides LDL Cholesterol Direct HDL Cholesterol Vitamin B12 Ur Random Microalbumin Urine Creatinine Microalb/Creat Ratio Assessment & Plan Assessment & Plan (1) Type 2 diabetes mellitus with hypoglycemia without coma: Code(s): E11.649 - Type 2 diabetes mellitus with hypoglycemia without coma Category: Medical Qualifiers: Diabetes mellitus terminal block assembler insulin use: with terminal block assembler use Qualified Code(s): E11.649 - Type 2 diabetes mellitus with hypoglycemia without coma; Z79.4 - long-term (current) use of insulin Plan In summary this is a 64-year-old male with controlled type 2 diabetes with chronic insulin use and micro and macrovascular complications. I am not sure what happened with the instructions that were provided to him over the phone, but he has not been taking the recommended treatment regimen. Patient demonstrated in the office that his Abhishek 2 sensor is inaccurate and is alerting him to low glucose when he has normal blood sugar, but I suspect he is having some asymptomatic hypoglycemia given hemoglobin A1c 5.2%. Abhishek 2 is being discontinued. It is medically necessary for the patient to change to the Abhishek 3+ continuous glucose monitor. Patient will remain off [facility] at this time. Take 8 units of Novolog before breakfast except do not take this in the morning on dialysis days. Take 12 units of Novolog before lunch. Decrease from 18 units of NovoLog to 8 units before dinner. If you experience low blood sugar, treat this by eating a chewable fruit candy like skittles or jelly beans (about 8 pieces), 4 ounces (1/2 cup) of fruit juice (not diet), 1 tablespoon of honey or 4 glucose tablets. If your blood sugar is under 55, take double the amount of one of the above. Recheck your blood sugar in 15 minutes. See above notes in HPI regarding hypertension. Continue to follow up with all specialists as planned. Follow up in 1 month for type 2 diabetes. Orders: Orders AMB Hemoglobin A1c Today E11.40 - Type 2 diabetes mellitus with diabetic neuropathy, unspecified Medications: New blood-glucose,dragsaw operator,cont (FreeStyle Abhishek 3 [place]) Use daily to monitor blood glucose levels continuously. 1 ea 0RF blood-glucose,dragsaw operator,cont (FreeStyle Abhishek 3 [place]) Use daily to monitor blood glucose levels continuously. 1 ea 0RF blood-glucose sensor (FreeStyle Abhishek 3 Plus Sensor device) Apply 1 new sensor every 15 days as directed to monitor blood glucose continuously. 2 ea 11RF E16.2 - Hypoglycemia, unspecified, R73.03 - Prediabetes blood-glucose,dragsaw operator,cont (FreeStyle Abhishek 3 [place]) Use daily to monitor blood glucose levels continuously. 1 ea 0RF blood-glucose sensor (FreeStyle Abhishek 3 Plus Sensor device) Apply 1 new sensor every 15 days as directed to monitor blood glucose continuously. 2 ea 11RF E16.2 - Hypoglycemia, unspecified, R73.03 - Prediabetes blood-glucose sensor (FreeStyle Abhishek 3 Plus Sensor device) Apply 1 new sensor every 15 days as directed to monitor blood glucose continuously. 2 ea 11RF E16.2 - Hypoglycemia, unspecified, R73.03 - Prediabetes blood-glucose,dragsaw operator,cont (FreeStyle Abhishek 3 [place]) Use daily to monitor blood glucose levels continuously. 1 ea 0RF Changed From insulin aspart U-100 (Novolog FlexPen U-100 Insulin aspart) 6 units with breakfast on non-dialysis days, 10 units with lunch and dinner 15 mL 4RF To insulin aspart U-100 (Novolog FlexPen U-100 Insulin aspart) 8 units before breakfast on non-dialysis days, 12 units before lunch and 8 units before dinner Patient Instructions: Take 8 units of Novolog before breakfast except do not take this in the morning on dialysis days. Take 12 units of Novolog before lunch. Decrease from 18 units of NovoLog to 8 units before dinner. If you experience low blood sugar, treat this by eating a chewable fruit candy like skittles or jelly beans (about 8 pieces), 4 ounces (1/2 cup) of fruit juice (not diet), 1 tablespoon of honey or 4 glucose tablets. If your blood sugar is under 55, take double the amount of one of the above. Recheck your blood sugar in 15 minutes. Sherando 8 unidades de Novolog antes del desayuno, excepto por la ma?vika los d?as de di?lisis. Sherando 12 unidades de Novolog antes del almuerzo. Reduzca la dosis de 18 unidades a 8 unidades antes de la erik. Si experimenta niveles bajos de az?car en la nikky, tr?telo con un caramelo masticable de fruta kenisha Skittles o Jelly Beans (aproximadamente 8 piezas), 113 ml (1/2 taza) de jugo de fruta (no light), 1 cucharada de miel o 4 tabletas de glucosa. Si carter nivel de az?car en la nikky es inferior a 55, tome el doble de la cantidad de sophie de los medicamentos mencionados. Vuelva a medir carter nivel de az?car en la nikky en 15 minutos. Coding Level of Care Code Est Pt Level 4 (78791) Complex EM visit Add On G2211 Diagnoses Type 2 diabetes mellitus with hypoglycemia without coma, with long-term current use of insulin E11.649; Z79.4 Diabetes mellitus chcf insulin use: with chcf use
[2025-02-23 08:55] VITALS: BP 162/72; PULSE 70; O2SAT 97; BMI 29.6
[2025-02-23 09:07] LABS: Glucose, Whole Blood 94 mg/dL (60-115)
--- OUTSIDE RECORDS SUMMARY | 2025-02-23 09:20 | XMS_ITS | Encounter Summary ---
Author Organization [employer] [facility] Address [address] 7[address] [place] [address] Care Team Providers Care Security Field Supervisor Name Role Phone Ambreen Nuvia ARSHDA Primary Care Provider [phone] Renard Ritchie MD Unavailable [phone] Eliecer Bob MD Unavailable [phone] Albert Galaviz MD Unavailable [phone] Encounter Details Date Type Department Care Team (Late st Contact Info) Description 02/23/2025 Orders Only GENERIC EXTERNAL DATA DEPARTMENT Provider, [...] Care Team (Late st Contact Info) Description 03/29/2025 9:30 AM EDT Telemedicine [facility] MED & PEDS [address] [place] [address] Lynn Armijo, RN 505 [place] [address] 03/30/2025 11:00 AM EDT Office Visit [facility] MEDICINE 230 [place], [place] [phone] Nuvia Crook, ANP 230 [place] [address] documented as of this encounter Procedures Procedure Name Priority Date/Time Associated Diagnosis Comments GLUCOSE, WHOLE BLOOD Routine 02/23/2025 9:01 AM EDT documented in this encounter Results * Glucose, Whole Blood (02/23/2025 9:01 AM EDT) Glucose, Whole Blood 94 60 - 115 mg/dL [facility] Comment:METER #: [id number] 5Testing performed in the Endocrinology Department [address] , [address], [facility]. 02/23/2025 9:01 AM EDT 02/23/2025 9:07 AM EDT us Generic External Data Provider LAB BLOOD ORDERAB LES Final Result [facility] [address] [place] [address] [phone] documented in this encounter Visit Diagnoses Not on filedocumented in this encounter Additional Health Concerns Assessment Noted Time PHQ-9 Depression Total Score: 0 09/10/20 9:05 AM EST documented as of this encounter Care Teams Security Field Supervisor Relationship Specialty Start Date End Date Nuvia Crook ANP [address] [place] [address] PCP - General Family Medicine 06/21/20 Renard Ritchie MD 100 [facility] 200 [place] [address] Nephrology 10/13/24 Eliecer Bob MD [address] [place] [address] Endocrinology 10/13/24 Albert Galaviz MD [address] [place] [address] Cardiology 10/13/24 documented as of this encounter
--- OUTSIDE RECORDS SUMMARY | 2025-02-23 09:20 | XMS_ITS | Encounter Summary ---
Author Organization [employer] Address [address] 7[address] [place] [address] Care Team Providers Care Mines Inspector Name Role Phone Nuvia Crook Primary Care Provider [phone] Renard Ritchie MD Unavailable [phone] Eliecer Bob MD Unavailable Albert Galaviz MD Unavailable [phone] Encounter Details Date Type Department Care Team (Late st Contact Info) Description 12/30/2023 Telephone [facility] MEDICINE [address] [place], [place] [phone] Nuvia Crook ANP [address] [place], [place] [phone] Social History Tobacco Use Types Packs/Day Years [...] Info) Description 03/29/2025 9:30 AM EDT Telemedicine [facility] MED & PEDS 505 [place] [address] Lynn Armijo, NIMISHA [address] [place] [address] 03/30/2025 11:00 AM EDT Office Visit [facility] MEDICINE [address] [place] [address] Nuvia Crook ANP [address] [place] [address] documented as of this encounter Visit Diagnoses Not on filedocumented in this encounter Additional Health Concerns Assessment Noted Time PHQ-9 Depression Total Score: 0 07/02/20 23 9:05 AM EDT documented as of this encounter Care Teams Mines Inspector Relationship Specialty Start Date End Date Nuvia Crook ANP [address] [place] [address] PCP - General Family Medicine 06/21/20 Renard Ritchie MD 100 [facility] 200 [place] [address] Nephrology 10/13/24 Eliecer Bob MD [address] [place] [address] Endocrinology 10/13/24 Albert Galaviz MD 5[address] [place] [address] Cardiology 10/13/24 documented as of this encounter
--- OUTSIDE RECORDS SUMMARY | 2025-02-23 09:20 | XMS_ITS | Encounter Summary ---
Author Organization [employer] [facility] Address [address] 7[address] [place] [address] Care Team Providers Care Clearance Representative Name Role Phone Nuvia Crook Primary Care Provider [phone] Renard Ritchie MD Unavailable Eliecer Bob MD Unavailable Albert Galaviz MD Unavailable Reason for Visit * Reason Comments Med Refill Encounter Details Date Type Department Care Team (Late st Contact Info) Description 02/18/2025 Refill [facility] MEDICINE [address] [place], [place] [phone] Nuvia Crook ANP 230 [place], [place] [phone] Renal hypertension; Chronic diastolic heart failure (CMS/HCC) Social History Tobacco Use Types Packs/Day [...] Info) Description 03/29/2025 9:30 AM EDT Telemedicine [facility] CHC MED & PEDS [address] [place] [address] Lynn Armijo, RN 505 [place] [address] 03/30/2025 11:00 AM EDT Office Visit [facility] MEDICINE [address] [place] [address] Nuvia Crook ANP 230 [place] [address] documented as of this encounter Visit Diagnoses Diagnosis Renal hypertension Chronic diastolic heart failure (CMS/HCC) Chronic diastolic heart failure documented in this encounter Additional Health Concerns Assessment Noted Time PHQ-9 Depression Total Score: 0 09/10/20 24 9:05 AM EST documented as of this encounter Care Teams Clearance Representative Relationship Specialty Start Date End Date Nuvia Crook ANP [address] [place] [address] PCP - General Family Medicine 06/21/20 Renard Ritchie MD 100 [facility] [address] [place] [address] Nephrology 10/13/24 Eliecer Bob MD [address] [place] [address] Endocrinology 10/13/24 Albert Galaviz MD [address] [place] [address] Cardiology 10/13/24 documented as of this encounter
--- OUTSIDE RECORDS SUMMARY | 2025-02-23 09:21 | XMS_ITS | Encounter Summary ---
Author Organization [email or web address] [facility] Address [address] 7[address] [place] [address] Care Team Providers Care Solar Photovoltaic Systems Engineer Name Role Phone Nuvia Crook Primary Care Provider [phone] Renard Ritchie MD Unavailable Eliecer Bob MD Unavailable Albert Galaviz MD Unavailable [phone] Reason for Visit * Reason Comments Med Refill Encounter Details Date Type Department Care Team (Late st Contact Info) Description 12/01/2024 Refill [facility] MEDICINE 230 [place], [place] [phone] Nuvia Crook, ANP 230 [place], [place] [phone] End stage renal disease (CMS/HCC); Other chronic [...] Info) Description 03/29/2025 9:30 AM EDT Telemedicine [facility] MED & PEDS 505 [place] [address] Lynn Armijo, RN 505 [place] [address] 03/30/2025 11:00 AM EDT Office Visit [facility] MEDICINE 230 [place] [address] Nuvia Crook ANP 230 [place] [address] documented as of this encounter Visit Diagnoses Diagnosis End stage renal disease (CMS/HCC) End stage renal disease Other chronic pain documented in this encounter Additional Health Concerns Assessment Noted Time PHQ-9 Depression Total Score: 0 09/10/20 24 9:05 AM EST documented as of this encounter Care Teams Solar Photovoltaic Systems Engineer Relationship Specialty Start Date End Date Nuvia Crook ANP [address] [place] [address] PCP - General Family Medicine 06/21/20 Renard Ritchie MD 100 [facility] 200 [place] [address] Nephrology 10/13/24 Eliecer Bob MD [address] [place] [address] Endocrinology 10/13/24 Albert Galaviz MD 5[address] [place] [address] Cardiology 10/13/24 documented as of this encounter
--- OUTSIDE RECORDS SUMMARY | 2025-02-23 09:21 | XMS_ITS | Encounter Summary ---
Author Organization [employer] [facility] Address [address] 7t [place] [address] Care Team Providers Care Excavating Supervisor Name Role Phone Nuvia Crook Primary Care Provider Renard Ritchie MD Unavailable [phone] Eliecer Bob MD Unavailable [phone] Albert Galaviz MD Unavailable Reason for Visit * Reason Comments Med Change Request Encounter Details Date Type Department Care Team ([facility] st Contact Info) Description 04/05/2023 Refill [facility] MEDICINE 230 [place], [place] [phone] Nuvia Crook, ANP 230 [place], [place] [phone] Pain Social History Tobacco Use Types Packs/Day [...] - 04/08/2023 12:05 PM EDT Sent to [facility] 04/05. Received after hours. documented in this encounter Plan of Treatment Upcoming Encounters Date Type Department Care Team (Late st Contact Info) Description 03/29/2025 9:30 AM EDT Telemedicine [facility] MED & PEDS 505 [place] [address] Lynn Armijo, RN 505 [place] [address] 03/30/2025 11:00 AM EDT Office Visit [facility] MEDICINE 230 [place] [address] Nuvia Crook ANP 230 [place] [address] documented as of this encounter Visit Diagnoses Diagnosis Pain Generalized pain documented in this encounter Care Teams Excavating Supervisor Relationship Specialty Start Date End Date Nuvia Crook ANP 230 [place] [address] PCP - General Family Medicine 06/21/20 Renard Ritchie MD 100 [facility] 200 [place] [address] Nephrology 10/13/24 Eliecer Bob MD [address] [place] [address] Endocrinology 10/13/24 Albert Galaviz MD [address] [place] [address] Cardiology 10/13/24 documented as of this encounter
--- OUTSIDE RECORDS SUMMARY | 2025-02-23 09:21 | XMS_ITS | Encounter Summary ---
Author Organization [employer] Address [address] 7[address] [place] [address] Care Team Providers Care Quality Assurance Monitor Body Name Role Phone Nuvia Crook Primary Care Provider [phone] Renard Ritchie MD Unavailable [phone] Eliecer Bob MD Unavailable Albert Galaviz MD Unavailable [phone] Reason for Visit * Reason Comments Med Refill Encounter Details Date Type Department Care Team (Late st Contact Info) Description 08/07/2024 Refill [facility] CHC MED & PEDS [address] [place], [place] [phone] Name, MD David 230 [place] [address] Renal hypertension Social History Tobacco Use Types [...] Info) Description 03/29/2025 9:30 AM EDT Telemedicine [facility] CH[facility] MED & PEDS 505 [place] [address] Lynn Armijo, NIMISHA 505 [place] [address] 03/30/2025 11:00 AM EDT Office Visit [facility] MEDICINE [address] [place] [address] Nuvia Crook ANP 230 [place] [address] documented as of this encounter Visit Diagnoses Diagnosis Renal hypertension documented in this encounter Additional Health Concerns Assessment Noted Time PHQ-9 Depression Total Score: 0 07/02/20 23 9:05 AM EDT documented as of this encounter Care Teams Quality Assurance Monitor Body Relationship Specialty Start Date End Date Nuvia Crook ANP [address] [place] [address] PCP - General Family Medicine 06/21/20 Renard Ritchie MD [facility] 200 [place] [address] Nephrology 10/13/24 Eliecer Bob MD [address] [place] [address] Endocrinology 10/13/24 Albert Galaviz MD 596 [place] [address] Cardiology 10/13/24 documented as of this encounter
--- OUTSIDE RECORDS SUMMARY | 2025-02-23 09:21 | XMS_ITS | Clinical Summary ---
Author Organization [facility] Address [address] [place] [address] Phone Care Team Providers Care School Laboratory Technician Name Role Phone Ambreen Nuvia Wiley NP Primary Care Provider [phone] Allergies No known active allergies Medications aspirin [...] the morning 2 at night 022 Discontin ued(Fabli ben order (does not appear on AVS)) [...] 01/2021 Essential hypertension 12/29/202005/29 Hypertensive heart disease w [facility] congestive heart failure 12/29/2020 05/29/2021 Morbid obesity 12/29/2020 05/29/2021 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/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 05/29/2021 Sleep apnea 12/29/2020 05/29/2021 Type 2 diabetes mellitus 12/29/202011/2020 Encounters Date Type Department Care Team Description 02/17/2025 Treatment [facility] [address] [phone] Renard Ritchie MD End stage renal disease; Dependence on renal dialysis 02/08/2025 Treatment [facility] [address] [address] Renard Ritchie MD End stage renal disease; Dependence on renal dialysis 01/29/2025 Treatment [facility] [address] [address] Renard Ritchie MD End stage renal disease; Dependence on renal dialysis 01/27/2025 Treatment [facility] [address] [phone] Renard Ritchie MD End stage renal disease; Dependence on renal dialysis 01/22/2025 Treatment [facility] [address] [phone] Renard Ritchie MD End stage renal disease; Dependence on renal dialysis 01/18/2025 Treatment [facility] [address] [phone] Renard Ritchie MD End stage renal disease; Dependence on renal dialysis 01/13/2025 Orders Only [facility] [address] [address] Renard Ritchie MD 01/11/2025 Treatment [facility] [address] [address] Renard Ritchie MD End stage renal disease; Dependence on renal dialysis 01/01/2025 Treatment [facility] [address] [address] Renard Ritchie MD End stage renal disease; Dependence on renal dialysis 12/25/2024 Treatment [facility] [address] [address] Renard Ritchie MD End stage renal disease; Dependence on renal dialysis 12/16/2024 Treatment [facility] [address] [phone] Renard Ritchie MD 12/07/2024 Treatment [facility] [address] [phone] Renard Ritchie MD 11/30/2024 Treatment [facility] [address] [phone] Renard Ritchie MD 11/27/2024 Treatment [facility] [address] [address] Renard Ritchie MD from Last 3 Months Immunizations Immunization Administration Dates Next Due H1N1 Inj 10/03/2016 [...] Visual Foot Exam 11/28/2020 Diabetes: Hemoglobin A1C 04/28/2025 04 025, 09/10/2024, 09/14/2019 Pneumococcal Vaccine: 50+ Years Completed 02/04/2024, 04/07/2019, 03/24/2010 Pneumococcal Vaccine: Peds ( 0 to 5 Years) and At-Risk Patients (6 to 49 Years) Discontinued 02/04/2024, 04/07/2019, 03/24/2010 Influenza Vaccine Completed 09/10/2024, , 07/24/2022, Additional history exists Procedures Procedure Name Priority Date/Time Associated Diagnosis Comments HEMOGLOBIN Routine 02/10/2025 3:00 AM EDT PHOSPHATE ( PHOSPHORUS) Routine 02/05/2025 3:00 AM EDT LIH (HC) Routine 02/05/2025 3:00 AM EDT HEMOGLOBIN A1C Routine 01/27/2025 3:00 AM EDT FERRITIN Routine 01/27/2025 3:00 AM EDT TRANSFERRIN SATURATION Routine 3:00 AM EDT KT/V NATURAL LOG, URR (HC) Routine 01/27/2025 3:00 AM EDT PROTEIN, TOTAL, SERUM Routine 01/27/2025 3:00 AM EDT ELECTROLYTE PANEL Routine 01/27/2025 3:0 0 AM EDT LIPID PANEL Routine 01/27/2025 3:00 AM EDT MAGNESIUM Routine 01/27/2025 3:00 AM EDT LACTATE DEHYDROGENASE Routine 01/27/2025 3:00 AM EDT LIH (HC) Routine 01/27/2025 3:00 AM EDT GLUCOSE, RANDOM Routine 01/27/2025 3:00 AM EDT CREATININE, SERUM Routine 01/27/2025 3:0 0 AM EDT BILIRUBIN, TOTAL Routine 01/27/2025 3:00 AM EDT AST Routine 01/27/2025 3:00 AM EDT ALT Routine 01/27/2025 3:00 AM EDT ALKALINE PHOSPHATASE Routine 01/27/2025 3:00 AM EDT CALCIUM PHOSPHORUS PRODUCT, ADJUSTED (HC) Routine 01/27/2025 3:00 AM EDT PTH, INTACT Routine 01/27/2025 3:00 AM EDT CBC AND DIFFERENTIAL Routine 01/27/2025 3:00 AM EDT HEMOGLOBIN Routine 01/25/2025 3:00 AM EDT HEMOGLOBIN Routine 01/20/2025 3:00 AM EDT HEMOGLOBIN Routine 01/13/2025 3:00 AM EDT from Last 3 Months Results * (ABNORMAL) Hemoglobin (02/10/2025 3:00 AM EDT) Only the most recent of4 resultswithin the time period is included. Pathologist [facility] Hgb 10.0(L) 13.7 - 17.5 g/dL [facility] Hemoglobin x 3 30.0(L) 41.1 - 52.5 g/dL [facility] 02/10/2025 3:00 AM EDT 02/11/2025 1:03 PM EDT Renard Ritchie MD LAB BLOOD ORDERABLES Final Re sult Performing Organization Address City/[facility]/ZIP Co de Phone Number [facility] [address] [place] [address] * LIH (02/05/2025 3:00 AM EDT) Only the most recent of2 resultswithin the time period is included. Pathologist [facility] Lipemia Normal Normal [facility] Icterus Normal Normal [facility] Hemolysis Normal Normal [facility] 02/05/2025 3:00 AM EDT 02/06/2025 2:26 PM EDT Renard Ritchie MD LAB [id number] SOLICITED RESULTS Final Result [facility] [address] [place] [address] * Phosphorus (02/05/2025 3:00 AM EDT) Phosphorus, Serum 4.4 2.5 - 5.0 mg/dL [facility] 02/05/2025 3:00 AM EDT 02/06/2025 2:26 PM EDT Renard Ritchie MD LAB BLOOD ORDERABLES Final Re sult Performing Organization Address [facility] de Phone Number [facility] [address] [place] [address] * (ABNORMAL) Kt/V Natural Log, URR (01/27/2025 3:00 AM EDT) BUN 49(H) 7 - 25 mg/dL [facility] Treatment Time 240 min [facility] Pre-Weight, lb 95.7 kg [facility] Post-Weight, lb 93.5 kg [facility] Ultrafiltration Rate 6 <=13 mL/kg/hr [facility] Comment: Recommend achieving Ultrafiltration Rate (UFR) <=10 mL/kg/hr References: Kei BOOKER et al. Kidney Int. 2010; 79(2):250-257 BUN Post Dialysis 14 7 - 25 mg/dL [facility] UREA REDUCTION RATIO (%) 71 >=65 % [facility] Kt/V Natural Log 1.44 >=1.2 [facility] 01/27/2025 3:00 AM EDT 01/29/2025 4:56 PM EDT Renard Ritchie MD LAB [id number] SOLICITED RESULTS Final Result Performing Organization Address [facility] de Phone Number [facility] [address] [place] [address] * Calcium Phosphorus Product, Adjusted (01/27/2025 3:00 AM EDT) Albumin 4.8 3.6 - 5.4 g/dL [facility] Calcium 9.2 8.6 - 10.3 mg/dL [facility] Phosphorus, Serum 3.4 2.5 - 5.0 mg/dL [facility] Ca*PO4 31.3 <55.0 mg2/dL2 [facility] Calcium, Adjusted Total 9.2 8.6 - 10.3 mg/dL [facility] CA*PO4 CORRCTD 31.3 <55.0 mg2/dL2 [facility] 01/27/2025 3:00 AM EDT 01/29/2025 5:09 PM EDT Renard Ritchie MD LAB [id number] SOLICITED RESULTS Final Result Performing Organization Address [facility]/ZIP Co de Phone Number [facility] [address] [place] [address] * (ABNORMAL) TSAT (01/27/2025 3:00 AM EDT) Iron 50(L) 65 - 175 ug/dL [facility] Transferrin 166(L) 215 - 365 mg/dL [facility] TIBC 232 211 - 406 ug/dL [facility] Iron Saturation (TSat) 22 22 - 52 % [facility] 01/27/2025 3:00 AM EDT 01/29/2025 5:09 PM EDT us Renard Ritchie MD LAB BLOOD ORDERABLES Final Re sult Performing Organization Address [facility] Co de Phone Number [facility] [address] [place] [address] * (ABNORMAL) CBC and Differential (01/27/2025 3:00 AM EDT) White Blood Cells 7.5 4.2 - 9.1 K/uL [facility] RBC 2.92(L) 4.63 - 6.08 M/uL [facility] Hgb 9.8(L) 13.7 - 17.5 g/dL [facility] Hemoglobin x 3 29.4(L) 41.1 - 52.5 g/dL [facility] Hematocrit 28.7(L) 40.1 - 51.0 % [facility] MCV 98.3(H) 79.0 - 92.2 fL [facility] MCH 33.6(H) 25.7 - 32.2 pg [facility] MCHC 34.1 32.3 - 36.5 g/dL [facility] Platelets 174 163 - 337 K/uL [facility] RDW 13.2 11.6 - 14.4 % [facility] Neutrophils Relative 72.7(H) 34.0 - 67.9 % [facility] Lymphocytes Relative 18.0(L) 21.8 - 53.1 % [facility] Monocytes 5.3 5.3 - 12.2 % [facility] Eosinophils Relative 3.2 0.8 - 7.0 % [facility] Basophils Relative 0.4 0.2 - 1.2 % [facility] Immature Granulocytes 0.4 0.0 - 1.0 % [facility] DIFFERENTIAL MANUAL, 2 Not Indicated [facility] 01/27/2025 3:00 AM EDT 01/29/2025 4:47 PM EDT Renard Ritchie MD LAB BLOOD ORDERABLES Final Re sult Performing Organization Address [facility] de Phone Number [facility] [address] [place] [address] * ALT (01/27/2025 3:00 AM EDT) ALT (SGPT) 26 10 - 49 U/L [facility] 01/27/2025 3:00 AM EDT 01/29/2025 5:09 PM EDT Renard Ritchie MD LAB BLOOD ORDERABLES Final Re sult Performing Organization Address [facility] de Phone Number [facility] [address] [place] [address] * AST (01/27/2025 3:00 AM EDT) AST (SGOT) 25 <34 U/L [facility] 01/27/2025 3:00 AM EDT 01/29/2025 5:09 PM EDT Renard Ritchie MD LAB BLOOD ORDERABLES Final Re sult Performing Organization Address [facility] de Phone Number [facility] [address] [place] [address] * Protein, total (01/27/2025 3:00 AM EDT) Total Protein 7.4 6.4 - 8.9 g/dL [facility] 01/27/2025 3:00 AM EDT 01/29/2025 5:09 PM EDT Renard Ritchie MD LAB BLOOD ORDERABLES Final Re sult Performing Organization Address [facility] de Phone Number [facility] [address] [place] [address] * Alkaline phosphatase (01/27/2025 3:00 AM EDT) Alkaline Phosphatase 104 46 - 116 U/L [facility] 01/27/2025 3:00 AM EDT 01/29/2025 5:09 PM EDT Renard Ritchie MD LAB BLOOD ORDERABLES Final Re sult Performing Organization Address [facility] de Phone Number [facility] [address] [place] [address] * (ABNORMAL) PTH, Intact (01/27/2025 3:00 AM EDT) PTH, Intact 110(L) 160 - 721 pg/mL [facility] Comment: Suggested (KDIGO) ESRD maintenance range is two to nine times the upper normal limit (80.1 pg/mL) for the laboratory. 01/27/2025 3:00 AM EDT 01/29/2025 5:09 PM EDT Renard Ritchie MD LAB BLOOD ORDERABLES Final Re sult Performing Organization Address [facility] de Phone Number [facility] [address] [place] [address] * Magnesium (01/27/2025 3:00 AM EDT) Magnesium 2.2 1.9 - 2.7 mg/dL [facility] 01/27/2025 3:00 AM EDT 01/29/2025 5:09 PM EDT Renard Ritchie MD LAB BLOOD ORDERABLES Final Re sult Performing Organization Address [facility] de Phone Number [facility] [address] [place] [address] * (ABNORMAL) Lactate dehydrogenase (01/27/2025 3:00 AM EDT) LDH 299(H) 120 - 246 U/L [facility] 01/27/2025 3:00 AM EDT 01/29/2025 5:09 PM EDT Renard Ritchie MD LAB BLOOD ORDERABLES Final Re sult Performing Organization Address [facility] de Phone Number [facility] [address] [place] [address] * Hemoglobin A1c (01/27/2025 3:00 AM EDT) Hemoglobin A1C 5.2 <5.7 % [facility] Comment: Methodology: Enzymatic HbA1c (NGSP %) ?Suggested Diagnosis >6.4% ? Diabetic 5.7-6.4% ?Pre-Diabetic <5.7% ? Non-Diabetic Diabetic Glucose Control Evaluation: Therapeutic action suggested at >8.0% ADA recommends a glycemic goal of <7.0% 01/27/2025 3:00 AM EDT 01/29/2025 4:47 PM EDT Renard Ritchie MD LAB BLOOD ORDERABLES Final Re sult Performing Organization Address [facility] de Phone Number [facility] [address] [place] [address] * (ABNORMAL) Glucose, random (01/27/2025 3:00 AM EDT) Glucose 112(H) 74 - 109 mg/dL [facility] 01/27/2025 3:00 AM EDT 01/29/2025 5:09 PM EDT Renard Ritchie MD LAB BLOOD ORDERABLES Final Re sult Performing Organization Address [facility] Co de Phone Number [facility] [address] [place] [address] * (ABNORMAL) Ferritin (01/27/2025 3:00 AM EDT) Ferritin 1,593(H) 22 - 322 ng/mL [facility] 01/27/2025 3:00 AM EDT 01/29/2025 5:09 PM EDT Renard Ritchie MD LAB BLOOD ORDERABLES Final Re sult Performing Organization Address [facility] de Phone Number [facility] [address] [place] [address] * (ABNORMAL) Creatinine, serum (01/27/2025 3:00 AM EDT) Creatinine 8.91(H) 0.70 - 1.30 mg/dL [facility] 01/27/2025 3:00 AM EDT 01/29/2025 5:09 PM EDT Renard Ritchie MD LAB BLOOD ORDERABLES Final Re sult Performing Organization Address [facility] de Phone Number [facility] [address] [place] [address] * (ABNORMAL) Bilirubin, total (01/27/2025 3:00 AM EDT) Total Bilirubin 0.2(L) 0.3 - 1.2 mg/dL [facility] 01/27/2025 3:00 AM EDT 01/29/2025 5:09 PM EDT Renard Ritchie MD LAB BLOOD ORDERABLES Final Re sult Performing Organization Address [facility] Co de Phone Number [facility] [address] [place] [address] * (ABNORMAL) Lipid panel (01/27/2025 3:00 AM EDT) Cholesterol 184 <200 mg/dL [facility] Comment: Optimal: ?<200 Borderline: ? 200-239 Higher Risk: ?>239 Triglycerides 757(A) <150 mg/dL [facility] Comment: Optimal: ?<150 Borderline High: ??150-199 High: ? 200-499 Very High: ?>499 HDL 20(A) >59 mg/dL [facility] Comment: Desirable: ?>59 Higher Risk: ?<40 LDL-Calc See Comment <100 mg/dL [facility] Comment: LDL/VLDL Cholesterol calculation not valid for Triglycerides >400 Optimal: ?<100 Above Optimal: ?100-129 Borderline High: ??130-159 High: ? 160-189 Very High: ?>189 VLDL Cholesterol Eris See Comment <30 mg/dL [facility] Comment: LDL/VLDL Cholesterol calculation not valid for Triglycerides >400 Optimal: ?<30 Borderline High: ??30-39 High: ? 40-99 Very High: ?>99 Chol/HDL Ratio 9.2(A) <3.3 [facility] Comment: Optimal: ?<3.3 Higher Risk: ?>6.2 01/27/2025 3:00 AM EDT 01/29/2025 5:09 PM EDT us Renard Ritchie MD LAB BLOOD ORDERABLES Final Re sult [facility] [address] [place] [address] * Electrolyte panel (01/27/2025 3:00 AM EDT) Sodium 140 136 - 145 mEq/L [facility] Potassium 4.7 3.4 - 5.0 mEq/L [facility] Chloride 102 98 - 107 mEq/L [facility] Bicarbonate (CO2) 28 21 - 31 mEq/L [facility] Anion Gap 10 3 - 14 mEq/L [facility] 01/27/2025 3:00 AM EDT 01/29/2025 5:09 PM EDT us Renard Ritchie MD LAB BLOOD ORDERABLES Final Re sult [facility] [address] [place] [address] from Last 3 Months Insurance [facility] ([id number]) [place] [id number] [facility] ([id number]) [place] [address] Care Teams School Laboratory Technician Relationship Specialty Start Date End Date Nuvia Crook NP [address] [place] [id number] PCP - General Nurse Practitioner 10/16/21
--- OUTSIDE RECORDS SUMMARY | 2025-02-23 09:21 | XMS_ITS | Encounter Summary ---
Author Organization [facility] Address [address] [place] [phone] Phone Care Team Providers Care Section Gang Name Role Phone CrookNuvia MARIANN Primary Care Provider [phone] Encounter Details Date Type Department Care Team ([facility] st Contact Info) Description 02/17/2025 Treatment [facility] [address] [phone] Teena Ritchie MD [facility] [address] End stage renal disease; Dependence on renal dialysis Social History Tobacco Use Types Packs/Day Years [...] Dialysis Note - Teena Ritchie MD - 02/17/2025 12:00 AM EDT BASIC NOTE Patient: Jose D Dickens : 1960 Note Author: TEENA RITCHIE MD Service Date: 02/17/2025 Telehealth encounter using audiovisual technology, performed according to state requirements. Appropriate patient consent obtained. This patient was personally seen for a basic visit as part of routine monthly dialysis care for end stage renal disease. Attending [employer] Ii Laborer: TEENA RITCHIE Dialysis Location: [facility] Schedule: Shift: ADEQUACY ASSESSMENT Kt/V, Natural Log 1.44 (01/27/25) 1.26 (09/30/24) 1.26 (09/02/24) UREA REDUCTION RATIO (%) 71 (01/27/25) 67 (09/30/24) 66 (09/02/24) BUN 49 (01/27/25) 54 (09/30/24) 53 (09/02/24) BUN Post Dialysis 14 (01/27/25) 18 (09/30/24) 18 (09/02/24) Creatinine 8.91 (01/27/25) 11.14 (09/30/24) 11.08 (09/02/24) Bicarbonate (CO2) 28 (01/27/25) 25 (09/30/24) 26 (09/02/24) Sodium 140 (01/27/25) 138 (09/30/24) 139 (09/02/24) ANEMIA ASSESSMENT Hgb 10.0 (02/10/25) 9.8 (01/27/25) 9.4 (01/25/25) Iron Saturation (TSat) 22 (01/27/25) 33 (09/30/24) 53 (09/02/24) Ferritin 1,593 (01/27/25) 1,240 (09/02/24) Iron 50 (01/27/25) 65 (09/30/24) 95 (09/02/24) TIBC 232 (01/27/25) 196 (09/30/24) 181 (09/02/24) MCV 98.3 (01/27/25) 99.4 (09/30/24) 97.2 (09/02/24) Platelets 174 (01/27/25) 128 (09/30/24) 153 (09/02/24) BMM ASSESSMENT Calcium, Adjusted Total 9.2 01/27/25 8.9 09/30/24 9.0 09/11/24 Calcium 9.2 01/27/25 8.9 09/30/24 9.0 09/11/24 Phosphorus, Serum 4.4 02/05/25 3.4 01/27/25 5.8 10/05/24 Ca*PO4 31.3 01/27/25 56.1 09/30/24 39.0 09/02/24 PTH, Intact 110 01/27/25 Magnesium 2.2 01/27/25 2.0 09/30/24 2.2 09/02/24 Alkaline Phosphatase 104 01/27/25 83 09/30/24 92 09/02/24 NUTRITION ASSESSMENT Albumin 4.8 01/27/25 4.7 09/30/24 4.8 09/11/24 Potassium 4.7 01/27/25 4.0 10/07/24 4.2 09/30/24 Hemoglobin A1C 5.2 01/27/25 ADDITIONAL LABS White Blood Cells 7.5 (01/27/25) 8.1 (09/30/24) 6.0 (09/02/24) Cholesterol 184 (01/27/25) HDL 20 (01/27/25) LDL-Calc See Comment (01/27/25) Triglycerides 757 (01/27/25) ADDITIONAL COMMENT COMMENTS: 11/30/24 c/o leg pain-- rusty LE angio w bmc vasc next week 12/07/24 cont w leg pains, angio next week 12/16/24 stable 12/25/24 cont leg pains 01/01/25 doing better 01/11/25 leg pain decr 01/18/25 stable 01/22/25 stable 01/27/25 doing ok 01/29/25 feeling better 02/08/25 stable 02/17/25 doing well 09/30/24 doing ok except for legs, has f/u vasc 10/12/24 stable 10/20/24 no new issues 10/30/23 stable 11/06/24 cont leg pains--has f/u vasc 11/20/24 stable 11/27/24 stable 07/01/24 stable 07/10/24 no new issues 07/22/24 doing well 07/29/24 no new issues 08/05/24 stable 08/12/24 no new issues 08/21/24 stable 09/04/24 doing well : no new issues 09/22/24 stable, c/o leg pain and has f/u vasc bmc 10/07/24 stable Signed by: TEENA RITCHIE MD on 02/17/2025 at 08:46:58 AM Transcribed by: TEENA RITCHIE MD on 02/17/2025 at 08:46:58 AM documented in this encounter Plan of Treatment Not on file documented as of this encounter Visit Diagnoses Diagnosis End stage renal disease Dependence on renal dialysis documented in this encounter Care Teams Section Gang Relationship Specialty Start Date End Date Nuvia Crook NP [address] [place] [id number] PCP - General Nurse Practitioner 10/16/21 documented as of this encounter
--- OUTSIDE RECORDS SUMMARY | 2025-02-23 09:21 | XMS_ITS | Clinical Summary ---
Author Organization [employer] Address [address] [facility] 7t [place] [address] Care Team Providers Care Food Service Order Clerk Name Role Phone Nuvia Crook PAVITHRA Primary Care Provider Renard Ritchie MD Unavailable [phone] Eliecer Bob MD Unavailable Albert Galaviz MD Unavailable [phone] Allergies Active Allergy Reactions Criticality Noted [...] by mouth at bedtime. 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 May repeat every 2-3 minutes if needed, alternating nostrils, until medical assistance becomes available. 2 each 024 2024 Active aspirin (Aspirin Low Dose) 81 MG EC tabletIndicatio ns:Cardiovascul ar event risk TAKE 1 TABLET BY MOUTH EVERY MORNING 90 tablet 1 Active carvedilol (Coreg) 25 MG tablet TAKE 1 TABLET BY MOUTH TWICE DAILY IN THE MORNING AND IN THE EVENING WITH FOOD 180 tablet 1 025 Active isosorbide mononitrate ER (Imdur) 60 MG 24 hr tablet TAKE 2 TABLETS BY MOUTH ONCE DAILY IN THE MORNING 180 tablet 1 025 Active oxyCODONE (Roxicodone) 10 MG immediate release tabletIndicatio ns:PAD (peripheral artery disease) (CMS/HCC) Take 1 tablet (10 mg) by mouth every 8 (eight) hours if needed for severe pain for up to 28 days. 84 tablet 025 2024 Active torsemide (Demadex) 20 MG tabletIndicatio ns:Renal hypertension,Ch ronic diastolic heart failure (CMS/HCC) TAKE 4 TABLETS BY MOUTH TWICE DAILY IN THE MORNING AND THE EVENING 240 tablet 3 025 Active torsemide (Demadex) 20 MG tabletIndicatio ns:Renal hypertension,Ch ronic diastolic heart failure (CMS/HCC) TAKE 4 TABLETS BY MOUTH TWICE DAILY IN THE MORNING AND THE EVENING 240 tablet 3 024 2024 Discontinued oxyCODONE (Roxicodone) 10 MG immediate release tabletIndicatio ns:End stage renal failure on dialysis (CMS/HCC),PAD (peripheral artery disease) (CMS/HCC),Chron ic right-sided low back pain without sciatica Take 1 tablet (10 mg) by mouth every 8 (eight) hours if needed for severe pain for up to 28 days. May take 0.5 tablet (5mg) midday instead of full 10mg if desired. 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 01/23/2021 Proteinuria 12/29/2020 Renal osteodystrophy 12/29/2020 Renal hypertension 12/29/2020 Hypertensive urgency 12/29/2020 Hyperlipidemia associated with type 2 diabetes m ellitus 02/27/2018 Chronic obstructive lung disease 08/10/2015 History [...] severe acute respiratory syndrome coronavirus 2 (SARS-CoV-2) 08/25/2022 07 Overview (06/20/2023): Problem added by Discern Expert Encounters Date Type Department Care Team Description 02/23/2025 Orders Only GENERIC EXTERNAL DATA DEPARTMENT Provider, Generic External Data 02/18/[address] [address] Nuvia Crook ANP Renal hypertension; Chronic diastolic heart failure (CMS/HCC) 02/17/2025 Refill [facility] [address] [place] [address] Lynn Armijo, NIMISHA PAD (peripheral artery disease) ([facility]) (Primary Dx) 02/17/2025 Telephone [facility] [address] [place] [address] Nuvia Crook ANP Med Refill 01/04/2025 11:00 AM EDT Telemedicine [address] [address] Nuvia Crook ANP End stage renal failure on dialysis ([facility]) (Primary Dx); PAD (peripheral artery disease) ([facility]/HCC); Chronic right-sided low back pain without sciatica; Other chronic pain; 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 12/25/2024 Orders Only [address] [address] Nuvia Crook ANP PAD (peripheral artery disease) ([facility]) (Primary Dx) 12/25/2024 Refill [facility] [address] [place] [address] Lynn Armijo, NIMISHA Arthritis of right knee; 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 12/25/2024 Telephone [facility] [address] [place] [address] Nuvia Crook ANP Med Refill 12/22/[address] [address] Cristin Murray, NIMISHA Paperwork/Forms 12/01/2024 9:30 AM EST Clinical Support [facility] [address] [place] [address] Lynn Armijo RN prison (current) use of opiate analgesic 12/01/2024 Orders Only [facility] [place] [address] Nuvia Crook ANP 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 (Primary Dx); Arthritis of right knee 12/01/2024 Refill [facility] [place] [address] Nuvia Crook ANP End stage renal disease ([facility]); Other chronic pain 12/01/2024 Travel 12/01/2024 Telephone [facility] [address] [facility] [place] [address] Lynn Armijo RN Med Refill 11/30/2024 11:00 AM EST Telemedicine [facility] [place] [address] Nuvia Crook ANP 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 (Primary Dx); Arthritis of right knee; End stage renal failure on dialysis ([facility]) 11/30/2024 Telephone [facility] [address] [facility] [place] [address] Lynn Armijo RN 11/30/2024 Travel 11/30/[address] [address] Nuvia Crook ANP 11/27/[address] [address] Dede Linares [place] chart prep 11/26/[address] [address] Nuvia Crook ANP Medication Reaction from Last 3 Months Immunizations Name Administration Dates Next Due Hep B, adult 06/05/2023,,03/14/2022,02/19,01/05/2022 Influenza injectable quadriv alent IIV4 with preservative 08/02/2023,08/25/2018,08/16/2016,08/10 Influenza injectable quadriv alent preservative free 07/24/2022,07/21/2021,08/13/2019 Influenza, IIV3, injectable 08/18/2014 Influenza, Split (incl. akil fied surface antigen) 07/15/2013,10/13/2012 Influenza, seasonal, injecta ble, preservative free 09/10/2024 Moderna Covid-19 Vaccine 12+ 04/10/2022, 10/30/2021,01/20/2021,12/23 Moderna Covid-19 Vaccine 6+ Bivalent 11/06/2022 Novel [id number] 10/03/2016 Pfizer Covid-19 Vaccine 12+ 09/10/2024 Pneumococcal [...] Info) Description 03/29/2025 9:30 AM EDT Telemedicine [facility] [address] [place] [address] Lynn Armijo, NIMISHA [address] [place] [address] 03/30/2025 11:00 AM EDT Office Visit [facility] [address] [place] [address] Nuvia Crook ANP [address] [place] [address] Health Maintenance Due Date Last Done Comments CT Colonography 1960 Dental Prophylaxis 1960 Dental X-Ray: Full Mouth 1960 FIT DNA/Cologuard 1960 FIT 1960 FOBT 1960 HIV Screening 1960 Sigmoidoscopy 1960 Diabetes: Foot Exam 1970 Eye Exam 1970 Hepatitis C Screening 1978 RSV Patients and Patients Aged 60 years or older (1 - Risk 60-74 years 1-dose series) 2020 Dental Oral Exam 05/28/2023 11/27/2022 Lipid Panel 06/04/2024 06/04/2023, 05/28, 06/07/2022, Additional history exists Dental X-Ray: Bitewings 10/11/2024 10/10/2023, 11/27 Diabetes: Hemoglobin A1C 07/29/2025 025, 09/10/2024, 11/28/2023, Additional history exists Alcohol/Substance Use Screening 09/10/2025 09/10/2024 Depression Screening 09/10/2025 09/10/2024, 09/10/20 24 SDOH Screening 09/10/2025 09/10/2024 Tobacco Screening 01/04/2026 01/04/2025 DTaP/Tdap/Td Vaccines (3 - Td or Tdap) [...] on patient's age to complete this topic Hepatitis A Vaccines Aged Out No long er eligible based on patient's age to complete [...] WHOLE BLOOD Routine 02/23/2025 9:01 AM EDT DRUG TOXICOLOGY MONITORING BASE PANEL, WITH CONFIRMATION, ORAL FLUID Routine 12/01/2024 12:00 AM EST 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 POCT GLYCATED HEMOGLOBIN, TOTAL Routine 09/10/2024 9:07 AM EST Type 2 diabetes mellitus with chronic kidney disease on chronic dialysis, with long-term current use of insulin ([facility]) BITEWING - SINGLE RADIOGRAPHIC IMAGE Routine 10/10/2023 11:30 AM EST Periodontal disease Symptomatic irreversible pulpitis LIPID PANEL, STANDARD Routine 06/04/2023 8:24 AM EDT PERIODIC ORAL EVALUATION - ESTABLISHED PATIENT Routine 11/27/2022 1:00 PM EST from Last 3 Months or Most Recently Relevant to Health Maintenance Results * Glucose, Whole Blood (02/23/2025 9:01 AM EDT) Pathologist [facility] Glucose, Whole Blood 94 60 - 115 mg/dL [facility] Comment:METER #: [id number] 5Testing performed in the Endocrinology Department [address] , [address], [facility]. 02/23/2025 9:01 AM EDT 02/23/2025 9:07 AM EDT us Generic External Data Provider LAB BLOOD ORDERAB LES Final Result [facility] [address] [place] [phone] * Drug Toxicology Monitoring Base Panel, w/Confirmation, Oral Fluid (12/01/2024 12:00 AM EST) Drug Tox Panel with Confirmation SEE NOTE [facility] Comment: DRUG TOX MONITORING BASE PANEL,W/CONF,ORAL FLUID:Amphetamines: Negative REFERENCE RANGE: <10 ng/mL See Note 1Benzodiazepines: Negative REFERENCE RANGE: <0.50 ng/mL See Note 1Buprenorphine: Negative REFERENCE RANGE: <0.10 ng/mL See Note 1Cocaine: Negative REFERENCE RANGE: <5.0 ng/mL See Note 1Fentanyl: Negative REFERENCE RANGE: <0.10 ng/mL See Note 1Heroin Metabolite: Negative REFERENCE RANGE: <1.0 ng/mL See Note 1Marijuana: Negative REFERENCE RANGE: <2.5 ng/mL See Note 1Methadone: Negative REFERENCE RANGE: <5.0 ng/mL See Note 1Opiates: Positive REFERENCE RANGE: <2.5 ng/mL See Note 1 ??Codeine: Negative ??Dihydrocodeine: Negative ??Hydrocodone: Negative ??Hydromorphone: Negative ??Morphine: Negative ??Norhydrocodone: Negative ??Noroxycodone: 4.8 ng/mL H ?See Note 2 ??Oxycodone: 4.4 ng/mL H ??Oxymorphone: NegativeTapentadol: Negative REFERENCE RANGE: <5.0 ng/mL See Note 1Tramadol: Negative REFERENCE RANGE: 5.0 ng/mL See Note 1For additional information, please refer to:http://education.[employer]/faq/JQU970 (This linkis being provided for informational/ educational purposesonly.) This drug testing is for medical treatment only.Analysis was performed as non-forensic testing and theseresults should be used only by healthcare providers torender diagnosis or treatment, or to monitor progress ofmedicalconditions. For assistance with interpreting these drugresults, please contact a [facility] ToxicologySpecialist: [phone] ( ), M-F, 8am-6pmEST.Note 1:This test was developed and its analytical performancecharacteristics have been determined by [facility].It has not been cleared or approved by the FDA. This assayhas been validated pursuant to the CLIA regulations and isused for clinical purposes.Note 2:Noroxycodone is a metabolite of oxycodone.THIS TEST PERFORMED AT:[facility] [employer] [address] [phone] DIRECTOR: MARILIA PAULSON MD 12/01/2024 12/01/2024 Nuvia ARSHAD LAB BODY FLUIDS AND STOOLS ORDER ABDIRASHID Final Result [facility] [address] [place] [phone] * (ABNORMAL) POCT HGB A1C (09/10/2024 9:07 AM EST) Hemoglobin A1C 6.5(A) 4.0 - 6.0 % QC Media Lot # [id number] Lot# Expiration Date Blood 09/10/2024 9:07 AM EST Nuvia Crook ANP POINT OF CARE TEST ENTER/EDIT OR DERABLES Final Result * Lipid Panel, Standard (06/04/2023 8:24 AM EDT) Triglycerides 1,669 mg/dL [facility] Comment:Lipemic SpecimenDesi rable Triglyceride: less than 150 mg/dLBorderline High Triglyceride 150-199 mg/dLHigh Triglyceride: 200-499 mg/dLVery High Triglyceride: greater than or equal to 5OO mg/dL Cholesterol 347 mg/dL [facility] Comment:Lipemic SpecimenDesi rable Cholesterol: less than 200 mg/dLBorderline High Cholesterol: 200-239 mg/dLHigh Cholesterol: greater than 239 mg/dL LDL Cholesterol Calculated TNP mg/dl [facility] Comment:Unable to calculate the LDL. The formula of Friedwald,Stack, and Zeina is only valid if the triglycerides areless than 400 mg/dl. HDL Cholesterol 22 mg/dL [facility] Comment:Lipemic SpecimenDesi rable HDL: greater than 40 mg/dL Note: This HDL assay may give artificially low results in patients with liver disease. 06/04/2023 8:24 AM EDT 06/04/2023 9:09 AM EDT [facility] External Provider LAB BLO OD ORDERABLES Final Result [facility] [address] [place] [address] [phone] from Last 3 Months or Most Recently Relevant to Health Maintenance Insurance [facility] < [address] [facility] Care Teams Food Service Order Clerk Relationship Specialty Start Date End Date Nuvia Crook ANP [address] [place] [address] PCP - General Family Medicine 06/21/20 Renard Ritchie MD 100 [facility] 200 [place] [address] Nephrology 10/13/24 Eliecer Bob MD [address] [place] [phone] Endocrinology 10/13/24 Albert Galaviz MD [address] [place] [address] Cardiology 10/13/24
--- OUTSIDE RECORDS SUMMARY | 2025-02-23 09:21 | XMS_ITS | Encounter Summary ---
Author Organization [employer] [facility] Address [address] 7[address] [place] [address] Care Team Providers Care Supervisor Bleach Plant Name Role Phone Nuvia Crook Primary Care Provider [phone] Renard Ritchie MD Unavailable Eliecer Bob MD Unavailable Albert Galaviz MD Unavailable Reason for Visit * Reason Comments Med Refill Encounter Details Date Type Department Care Team ([facility] st Contact Info) Description 02/28/2023 Refill [facility] [address] [place], [place] [phone] Nuvia Crook, ANP [address] [place], [place] [phone] Pain Social History Tobacco Use Types Packs/Day [...] Info) Description 03/29/2025 9:30 AM EDT Telemedicine [facility] [address] [place] [address] Lynn Armijo, RN [address] [place] [address] 03/30/2025 11:00 AM EDT Office Visit [facility] [address] [place] [address] Nuvia Crook ANP [address] [place] [address] documented as of this encounter Visit Diagnoses Diagnosis Pain Generalized pain documented in this encounter Care Teams Supervisor Bleach Plant Relationship Specialty Start Date End Date Nuvia Crook ANP [address] [place] [address] PCP - General Family Medicine 06/21/20 Renard Ritchie MD 100 [facility] 200 [place] [address] Nephrology 10/13/24 Eliecer Bob MD 10 [facility] [address] [place] [address] Endocrinology 10/13/24 Albert Galaviz MD [address] [place] [address] Cardiology 10/13/24 documented as of this encounter
--- OUTSIDE RECORDS SUMMARY | 2025-02-23 09:21 | XMS_ITS | Encounter Summary ---
Author Organization [employer] [facility] Address [address] [facility] 7t [place] [address] Care Team Providers Care Concrete Bucket Loader Name Role Phone Nuvia Crook Primary Care Provider Renard Ritchie MD Unavailable [phone] Eliecer Bob MD Unavailable Albert Galaviz MD Unavailable Reason for Visit * Reason Comments Med Refill Encounter Details Date Type Department Care Team (Late st Contact Info) Description 10/30/2022 Refill [facility] [address] [place] [address] Nuvia Crook, ANP [address] [place], [place] [phone] Dorsalgia, unspecified Social History Tobacco Use Types [...] Department Care Team (Late Contact Info) Description 03/29/2025 9:30 AM EDT Telemedicine [facility] [address] [place] [address] Lynn Armijo, RN [address] [place] [address] 03/30/2025 11:00 AM EDT Office Visit [facility] [address] [place] [address] Nuvia rCook ANP [address] [place] [address] documented as of this encounter Visit Diagnoses Diagnosis Dorsalgia, unspecified documented in this encounter Care Teams Concrete Bucket Loader Relationship Specialty Start Date End Date Nuvia Crook ANP [address] [place] [address] PCP - General Family Medicine 06/21/20 Renard Ritchie MD 100 [facility] 200 [place] [address] Nephrology 10/13/24 Eliecer Bob MD 10 [facility] [address] [facility] [address] [place] [phone] Endocrinology 10/13/24 Albert Galaviz MD [address] [place] [address] Cardiology 10/13/24 documented as of this encounter
--- OUTSIDE RECORDS SUMMARY | 2025-02-23 09:22 | XMS_ITS | Encounter Summary ---
Author Organization [employer] Address [address] [facility] [facility] [address] [place] [address] Care Team Providers Care Employment Coach Name Role Phone Ambreen Nuvia ARSHAD Primary Care Provider [phone] Renard Ritchie MD Unavailable Eliecer Bob MD Unavailable Albert Galaviz MD Unavailable Reason for Visit * Reason Onset Date Comments Appointment 01/01/2023 Encounter Details Date Type Department Care Team (Late st Contact Info) Description 01/01/2023 Telephone [facility]ULT DENTAL [address] [place], [place] [phone] John Hightower [address] [place], [place] [phone] Appointment Social History Tobacco Use Types Packs/Day [...] on waiting list for kidney transplant and [facility] continues to call him to see if his dental work is completed. Pls advise. documented in this encounter Plan of Treatment Upcoming Encounters Date Type Department Care Team (Late st Contact Info) Description 03/29/2025 9:30 AM EDT Telemedicine [facility]S [address] [place], [place] [phone] Lynn Armijo, NIMISHA [address] [place], [place] [phone] 03/30/2025 11:00 AM EDT Office Visit [facility] [address] [place] [address] Nuvia Crook ANP [address] [place] [address] documented as of this encounter Visit Diagnoses Not on filedocumented in this encounter Care Teams Employment Coach Relationship Specialty Start Date End Date Nuvia Crook ANP [address] [place] [address] PCP - General Family Medicine 06/21/20 Renard Ritchie MD 100 [facility] 200 [place] [address] Nephrology 10/13/24 Eliecer Bob MD [address] [place] [phone] Endocrinology 10/13/24 Albert Galaviz MD [address] [place] [address] Cardiology 10/13/24 documented as of this encounter
[2025-02-23 09:32] VITALS: BP 152/68
[2025-02-23 09:32] LABS: Glucose, Whole Blood 92 mg/dL (60-115)
== END 2025-02-23 09:36 | disposition home or self-care (01) ==
LOC: HO.ENCR 08:51
PROVIDERS: PCP Nurse Practitioner Primary Care; Visit Provider Physician Assistant Medical
DX: E11.649 Type 2 diabetes mellitus with hypoglycemia without coma (principal); Z79.4 Long term (current) use of insulin; E11.40 Type 2 diabetes mellitus with diabetic neuropathy, unspecified

== ENCOUNTER → 2025-02-23 08:50 | Outpatient (BNVA) | payer OTHER, SELFPAY | PROVIDERS: PCP Nurse Practitioner Primary Care; Visit Provider Physician Assistant Medical | DX: E11.22 Type 2 diabetes mellitus with diabetic chronic kidney disease (principal); E11.319 Type 2 diabetes mellitus with unspecified diabetic retinopathy without macular edema; E11.21 Type 2 diabetes mellitus with diabetic nephropathy; E11.40 Type 2 diabetes mellitus with diabetic neuropathy, unspecified; E11.649 Type 2 diabetes mellitus with hypoglycemia without coma; I13.2 Hypertensive heart and chronic kidney disease with heart failure and with stage 5 chronic kidney disease, or end stage renal disease; N18.6 End stage renal disease; I50.9 Heart failure, unspecified; Z79.4 Long term (current) use of insulin; Z99.2 Dependence on renal dialysis | CPT/HCPCS: 82947; 83036; 99212 ==

== ENCOUNTER 2025-03-23 09:11 | Outpatient (AMB) | payer OTHER, SELFPAY ==
--- NOTE | 2025-03-23 09:12 | MHC.OFFVIS ---
Vital Signs 03/23/25 09:14 Height 5 ft 11 in Weight 210 lb 5.136 oz BMI 29.3 BP 154/70 H Blood Pressure Location Rt brachial Position Sitting Pulse 68 Pulse Source Pulse Oximeter Pulse Oximetry (%) 98 Oxygen Delivery Method Room Air Intake Visit Reasons: Type II diabetes Intake Note: Patient present today to follow up on Type 2 Diabetes Mellitus. Last Diabetic Eye exam: approx 1 month ago Last Podiatry Visit: Does not see a Lepidopterist Random Glucose: 79 mg/dl HgA1C: 5.2% 02/23/2025 Straightedge Machine Operator Helper Required: Yes Straightedge Machine Operator Helper Language: Senior Support Engineer Services: Straightedge Machine Operator Helper Present Straightedge Machine Operator Helper Name: Ehsan [id number] Information Interpreted: non-clinical & clinical Accompanied by: Self / Same As Patient Allergies No Known Allergies Allergy (Verified 03/23/25 09:15) HPI Comments Details: Patient is a 64-year-old male with DM type 2 diagnosed in in 1999, who presents for diabetic follow up. Patient's hemoglobin A1c was 5.2% 03/25/2025. Patient self discontinued Toujeo prior to our last appointment, and he is currently taking 8 units of NovoLog before breakfast, 12 units before lunch and 8 units before dinner. He does not take NovoLog on the morning of dialysis days. Reviewed [employer] 3+ download dated March 02 to March 15 CGM active 56% Average glucose 110 Glucose management indicator 5.9% Glucose variability 29.7% Very high 0% High 2% Target range 87% Low 11% Very low 0% Patient has a pattern of hypoglycemia in the evening, overnight and between 09:00 and noon. Blood sugars are usually in target range in the afternoon and early evening. The patient continues to say that his CGM is alerting him to low sugars, and when he checks with a fingerstick reading his blood sugar is above 70. Patient says there were 2-3 episodes where his blood sugar was in the high 60s per CGM and glucometer, and he treated this with cranberry juice. He is wearing a sensor, but his reader we will not turn on. We connected it to a drapery supervisor here, and it said it was low battery, but he says he tried to charge it at home, and it will not retain the charge. He has been doing fingerstick monitoring, but he forgot his glucometer. Past medical history includes: DM2, CHF, HTN, HLD, HTG, ESRD on HD MWF, sleep apnea, hx pancreatitis (2012, 2020) Micro and macrovascular complications: + retinopathy, + nephropathy, +neuropathy, PAD Care team Nephrology-Dr Ritchie-at HD Cardiology-Dr Gibbs/Patricio ROS: Constitutional: No fevers, chills, night sweats or increased fatigue Eyes: No vision changes Respiratory: No shortness of breath Cardiovascular: No chest pain, chest pressure or chest discomfort. No palpitations or pedal edema. Gastrointestinal: No anorexia, nausea, vomiting or diarrhea. No abdominal pain Neurologic: No headache, dizziness, syncope Hematologic/Lymphatics: No bleeding Endocrine: No polyuria, polydipsia, shakiness, weakness. Physical exam: Constitutional: Alert, in no distress. Head: Normocephalic. Eyes: Pupils are equal, round and reactive to light. Extraocular muscles intact. Neck: Supple, Full range of motion. No lymphadenopathy. Respiratory: Clear to auscultation. Cardiovascular: S1 S2 regular. No murmurs. Feet: The patient refused foot exam today. He denies open wounds. [facility] Medical History (Updated 11/26/24 @ 00:00 by Pamella Sesay) Arthritis of knee, right Knee pain, right Insulin long-term use Diabetic neuropathy Type 2 diabetes, controlled, with renal manifestation ESRD (end stage renal disease) on dialysis CHF exacerbation Diabetes type 2, uncontrolled Anemia HTN (hypertension) Heart failure with preserved ejection fraction CKD (chronic kidney disease) stage 4, GFR 15-29 ml/min Congestive heart failure Type 2 diabetes mellitus with unspecified complications Diastolic dysfunction Essential hypertension Hyperglycemia Hypertensive crisis Pancreatitis Chronic kidney disease, stage 4 (severe) Erectile dysfunction Depression with anxiety Proteinuria Diverticulitis Type 2 diabetes mellitus with hyperglycemia, with long-term current use of insulin Type 2 diabetes mellitus with polyneuropathy Type 2 diabetes mellitus with chronic kidney disease Hypertension Hypertriglyceridemia Diabetes mellitus with hyperglycemia, with long-term current use of insulin History of alcohol abuse Abnormal biopsy of kidney Peptic ulcer Hx of pancreatitis Anxiety Depression COPD (chronic obstructive pulmonary disease) History of headache Sleep apnea Asthma On beta doron at home Elevated cholesterol CHF (congestive heart failure) HTN (hypertension) Surgical History History of esophagogastroduodenoscopy (EGD) History of surgery Hx of right inguinal hernia repair Hx of colonoscopy Family History Mother Diabetes Social History Household Members: None Housing: Apartment Are you a primary companion caregiver to a significant other at home: No Do you presently have visiting nurse or other home services: Yes (CLINICAL COORDINATOR) Alcohol intake: never Comment: pt sleeping Patient Tobacco Use Status: Never used Tobacco Tobacco use type: Cigarette Years Smoked: 30 Second Hand Smoke Exposure: Yes service: No Current occupational status: retired Physical Exam Vital Signs: Last Vital Signs Pulse 68 03/23/25 09:14 BP 154/70 H 03/23/25 09:14 Pulse Ox 98 03/23/25 09:14 Oxygen Delivery Method Room Air 03/23/25 09:14 BMI result Body Mass Index 29.3 Results Reviewed Results Reviewed: Laboratory Last Values Glucose (Clinic) 79 mg/dL (60-115) 03/23/25 09:19 Laboratory Tests 09/14/19 03/09/20 02/06/21 09:05 Unknown 05:24 BUN Creatinine Hemoglobin A1c % 6.7 Hgb A1c (Clinic) AST ALT Triglycerides LDL Cholesterol Direct HDL Cholesterol Vitamin B12 402 Ur Random Microalbumin 849.0 Urine Creatinine Microalb/Creat Ratio 3810.5 08/19/21 06/07/22 06/04/23 05:18 08:42 08:24 BUN Creatinine Hemoglobin A1c % Hgb A1c (Clinic) AST ALT Triglycerides 1669 LDL Cholesterol Direct 56 HDL Cholesterol 22 Vitamin B12 Ur Random Microalbumin Urine Creatinine 78.59 Microalb/Creat Ratio 11/16/24 11/17/24 11/24/24 11:13 04:58 08:48 BUN 36 H Creatinine 9.00 H* Hemoglobin A1c % Hgb A1c (Clinic) 6.2 H AST 17 ALT 20 Triglycerides LDL Cholesterol Direct HDL Cholesterol Vitamin B12 Ur Random Microalbumin Urine Creatinine Microalb/Creat Ratio Assessment & Plan Assessment & Plan (1) Type 2 diabetes mellitus with hypoglycemia without coma: Code(s): E11.649 - Type 2 diabetes mellitus with hypoglycemia without coma Category: Medical Qualifiers: Diabetes mellitus intermediate accountant insulin use: with intermediate accountant use Qualified Code(s): E11.649 - Type 2 diabetes mellitus with hypoglycemia without coma; Z79.4 - shelter (current) use of insulin Plan In summary this is a 64-year-old male with controlled type 2 diabetes with chronic insulin use and micro and macrovascular complications. GMI is 5.9%. There have been discrepancies between both Abhishek 2 and Abhishek 3+ and fingerstick readings. CGM accuracy may be affected by dialysis however I do suspect he was having and continues to have some true hypoglycemic episodes given low A1c. Advised patient to continue fingerstick glucometer use until his next appointment so I can review this for accuracy. Patient will take NovoLog 5 units before breakfast accept on the morning of dialysis days, 12 units of NovoLog before lunch and 5 units before dinner moving forward. He will remain off [facility] for now. Patient was able to wait for about 15 minutes while we charged his reader, and he is going to see if it will charge at home today. I advised him to contact the customer service number and let him know that the reader is not working properly so that they can send him a new 1. He agreed. Written instructions given to the patient. If you experience low blood sugar, treat this by eating a chewable fruit candy like skittles or jelly beans (about 8 pieces), 4 ounces (1/2 cup) of fruit juice (not diet), 1 tablespoon of honey or 4 glucose tablets. If your blood sugar is under 55, take double the amount of one of the above. Recheck your blood sugar in 15 minutes. Continue to follow up with all specialists as planned. Follow up in 2 weeks for type 2 diabetes. Medications: Refilled blood sugar diagnostic (FreeStyle Lite Strips) As directed 4x DAILY 200 ea 11RF E11.649 - Type 2 diabetes mellitus with hypoglycemia without coma Patient Instructions: Take 5 units of Novolog before breakfast except do not take this in the morning on dialysis days. Take 12 units of Novolog before lunch. Take 5 units of Novolog before breakfast If you experience low blood sugar, treat this by eating a chewable fruit candy like skittles or jelly beans (about 8 pieces), 4 ounces (1/2 cup) of fruit juice (not diet), 1 tablespoon of honey or 4 glucose tablets. If your blood sugar is under 55, take double the amount of one of the above. Recheck your blood sugar in 15 minutes. . customer service for [employer] [place] 5 unidades de Novolog antes del desayuno, excepto por la ma?vika los d?as de di?lisis. [place] 12 unidades de Novolog antes del almuerzo. [place] 5 unidades de Novolog antes del desayuno. Si experimenta un nivel bajo de az?car en la nikky, tr?telo con un caramelo masticable de fruta kenisha Skittles o Jelly Beans (aproximadamente 8 piezas), 113 ml (1/2 taza) de jugo de fruta (no light), 1 cucharada de miel o 4 tabletas de glucosa. Si carter nivel de az?car en la nikky es inferior a 55, tome el doble de la cantidad de sophie de los anteriores. Vuelva a medir carter nivel de az?car en la nikky en 15 minutos. . Servicio al cliente de [employer] Coding Level of Care Code Est Pt Level 4 (10516) Complex EM visit Add On G2211 Diagnoses Type 2 diabetes mellitus with hypoglycemia without coma, with long-term current use of insulin E11.649; Z79.4 Diabetes mellitus fdc insulin use: with intermediate accountant use
[2025-03-23 09:14] VITALS: BP 154/70; PULSE 68; O2SAT 98; BMI 29.3
[2025-03-23 09:26] LABS: Glucose, Whole Blood 79 mg/dL (60-115)
--- OUTSIDE RECORDS SUMMARY | 2025-03-23 09:42 | XMS_ITS | Encounter Summary ---
Author Organization [employer] Address [address] [place] [address] Care Team Providers Care Supervisor Contact And Service Clerks Name Role Phone Nuvia Crook Primary Care Provider [phone] Renard Ritchie MD Unavailable [phone] Eliecer Bob MD Unavailable Albert Galaviz MD Unavailable [phone] Encounter Details Date Type Department Care Team (Late st Contact Info) Description 12/30/2023 Telephone [facility] [address] [place] [address] Nuvia Crook ANP [address] [place], [place] [id number] Social History Tobacco Use Types Packs/Day Years [...] Info) Description 03/29/2025 9:30 AM EDT Telemedicine [facility] [address] [place] [address] Lynn Armijo, NIMISHA [address] [place] [address] 03/30/2025 11:00 AM EDT Office Visit [facility] [address] [place] [address] Nuvia Crook ANP [address] [place] [address] documented as of this encounter Visit Diagnoses Not on filedocumented in this encounter Additional Health Concerns Assessment Noted Time PHQ-9 Depression Total Score: 0 07/02/20 23 9:05 AM EDT documented as of this encounter Care Teams Supervisor Contact And Service Clerks Relationship Specialty Start Date End Date Nuvia Crook ANP [address] [place] [address] PCP - General Family Medicine 06/21/20 Renard Ritchie MD [address] [address] [place] [address] Nephrology 10/13/24 Eliecer Bob MD [address] [place] [address] Endocrinology 10/13/24 Albert Galaviz MD [address] [place] [address] Cardiology 10/13/24 documented as of this encounter
== END 2025-03-23 09:43 | disposition home or self-care (01) ==
LOC: HO.ENCR 09:11
PROVIDERS: PCP Nurse Practitioner Primary Care; Visit Provider Physician Assistant Medical
DX: E11.649 Type 2 diabetes mellitus with hypoglycemia without coma (principal); Z79.4 Long term (current) use of insulin

== ENCOUNTER → 2025-03-23 09:11 | Outpatient (BNVA) | payer OTHER, SELFPAY | PROVIDERS: PCP Nurse Practitioner Primary Care; Visit Provider Physician Assistant Medical | DX: E11.649 Type 2 diabetes mellitus with hypoglycemia without coma (principal); Z79.4 Long term (current) use of insulin | CPT/HCPCS: 82947; 99212 ==

== ENCOUNTER 2025-04-06 09:04 | Outpatient (AMB) | payer OTHER, SELFPAY ==
--- NOTE | 2025-04-06 09:11 | A.OFFVIS_ITS ---
Vital Signs 04/06/25 09:14 Height 5 ft 11 in Weight 208 lb 8.917 oz BMI 29.1 BP 138/66 Blood Pressure Location Rt brachial Position Sitting Pulse 75 Pulse Source Pulse Oximeter Pulse Oximetry (%) 98 Oxygen Delivery Method Room Air Intake Visit Reasons: Type II diabetes Intake Note: Patient present today to follow up on Type 2 Diabetes Mellitus. Last Diabetic Eye exam: approx 1 month ago Last Podiatry Visit: Does not see a Compensation Advisor Random Glucose: 112 mg/dl HgA1C: 5.2% 02/23/2025 Caddie Required: Yes Caddie Language: Product Planner Services: Caddie Offered & Declined Accompanied by: Self / Same As Patient Allergies No Known Allergies Allergy (Verified 04/06/25 09:15) Medication List - Last Reconciled 04/06/25 by CORNELIO Sol albuterol sulfate 90 mcg/actuation (Ventolin HFA) 2 puffs PO Q4H PRN aspirin 1 tab PO DAILY atorvastatin 80 mg PO BEDTIME blood sugar diagnostic (FreeStyle Lite Strips) As directed 4x DAILY blood-glucose meter (FreeStyle Lite Meter kit) As directed blood-glucose sensor (FreeStyle Abhishek 3 Plus Sensor device) Apply 1 new sensor every 15 days as directed to monitor blood glucose continuously. blood-glucose,air pollution inspector,cont (FreeStyle Abhishek 3 [place]) Use daily to monitor blood glucose levels continuously. carvedilol 25 mg PO BID 90 days cholecalciferol (vitamin D3) 2 tabs PO DAILY diclofenac sodium 1% (Voltaren Arthritis Pain) 4 grams topical QID doxazosin 2 mg PO DAILY fluticasone furoate 200 mcg/actuation (Arnuity Ellipta) 1 inh inhalation DAILY gabapentin 300 mg PO BEDTIME icosapent ethyl (Vascepa) 2 grams (2 x 1 gram) PO BID insulin aspart U-100 (Novolog FlexPen U-100 Insulin aspart) 5 units before breakfast on non-dialysis days, 12 units before lunch and 3 units before dinner isosorbide mononitrate ER 120 mg PO QAM lancets (FreeStyle Lancets) As directed lancets (TRUEplus Lancets) TEST BLOOD SUGAR FOUR TIMES DAILY DIRECTED nifedipine ER 120 mg (4 x 30 mg) PO BEDTIME 90 days omeprazole 20 mg PO BID 30 days oxcarbazepine 1 tab PO BID oxycodone 10 mg PO Q6H PRN pen needle, diabetic (BD Ultra-Fine Silvia Pen Needle) As directed five times a day perphenazine 1 tab PO BID sertraline 2 tabs PO DAILY tadalafil (Cialis) 5 mg PO DAILY 90 days torsemide 80 mg (4 x 20 mg) PO BID tramadol 2 tabs PO Q8H PRN zolpidem 1 tab PO BEDTIME PRN HPI Comments Details: Patient is a 64-year-old male with DM type 2 diagnosed in in 1999, who presents for diabetic follow up. Patient's hemoglobin A1c was 5.2% 03/25/2025. Reviewed Abhishek 3+ data March 22 to April 04 (sensor stopped working, and he needs to apple picking supervisor the refill at the pharmacy) CGM active 90% Average glucose 114 GMI 6% Glucose variability 29.5% Very high 0% High 4% Target range 92% 4% hypoglycemia Pattern of hypoglycemia overnight, but patient continues to say that when he checks fingerstick glucose is above 70. Denies symptoms of hypoglycemia. Reviewed his glucometer download which shows average glucose March 23 to April 06 is 143, in range 92% Highest to 208 and lowest 88 Current regimen: NovoLog 5 units before breakfast on non dialysis days, 12 units of NovoLog before lunch and 5 units of NovoLog before dinner. He self discontinued Toujeo due to low sugars previously. Past medical history includes: DM2, CHF, HTN, HLD, HTG, ESRD on HD MWF, sleep apnea, hx pancreatitis (2012, 2020) Micro and macrovascular complications: + retinopathy, + nephropathy, +neuropathy, PAD Care team Nephrology-Dr Ritchie-at HD Cardiology-Dr Gibbs/Patricio ROS: Constitutional: No fevers, chills, night sweats or increased fatigue Eyes: No vision changes Respiratory: No shortness of breath Cardiovascular: No chest pain, chest pressure or chest discomfort. No palpitations or pedal edema. Neurologic: No headache, dizziness, syncope Hematologic/Lymphatics: No bleeding Endocrine: No polyuria, polydipsia, shakiness, weakness. Physical exam: Constitutional: Alert, in no distress. Head: Normocephalic. Eyes: Pupils are equal, round and reactive to light. Extraocular muscles intact. Neck: Supple, Full range of motion. No lymphadenopathy. Respiratory: Clear to auscultation. Cardiovascular: S1 S2 regular. No murmurs. [facility] Medical History (Updated 11/26/24 @ 00:00 by Pamella Sesay) Arthritis of knee, right Knee pain, right Insulin long-term use Diabetic neuropathy Type 2 diabetes, controlled, with renal manifestation ESRD (end stage renal disease) on dialysis CHF exacerbation Diabetes type 2, uncontrolled Anemia HTN (hypertension) Heart failure with preserved ejection fraction CKD (chronic kidney disease) stage 4, GFR 15-29 ml/min Congestive heart failure Type 2 diabetes mellitus with unspecified complications Diastolic dysfunction Essential hypertension Hyperglycemia Hypertensive crisis Pancreatitis Chronic kidney disease, stage 4 (severe) Erectile dysfunction Depression with anxiety Proteinuria Diverticulitis Type 2 diabetes mellitus with hyperglycemia, with long-term current use of insulin Type 2 diabetes mellitus with polyneuropathy Type 2 diabetes mellitus with chronic kidney disease Hypertension Hypertriglyceridemia Diabetes mellitus with hyperglycemia, with long-term current use of insulin History of alcohol abuse Abnormal biopsy of kidney Peptic ulcer Hx of pancreatitis Anxiety Depression COPD (chronic obstructive pulmonary disease) History of headache Sleep apnea Asthma On beta doron at home Elevated cholesterol CHF (congestive heart failure) HTN (hypertension) Surgical History History of esophagogastroduodenoscopy (EGD) History of surgery Hx of right inguinal hernia repair Hx of colonoscopy Family History Mother Diabetes Social History Household Members: None Housing: Apartment Are you a primary director of primary care to a significant other at home: No Do you presently have visiting nurse or other home services: Yes (APRON TRIMMER) Alcohol intake: never Comment: pt sleeping Patient Tobacco Use Status: Never used Tobacco Tobacco use type: Cigarette Years Smoked: 30 Second Hand Smoke Exposure: Yes service: No Current occupational status: retired Physical Exam Vital Signs: Last Vital Signs Pulse 75 04/06/25 09:14 BP 138/66 04/06/25 09:14 Pulse Ox 98 04/06/25 09:14 Oxygen Delivery Method Room Air 04/06/25 09:14 BMI result Body Mass Index 29.1 Office Procedures Glucose Monitoring Details Details: See [facility] [address] - Glucose monitoring, continuous-physician I&R Procedure code (CPT) selection complete Results Reviewed Results Reviewed: Laboratory Last Values Glucose (Clinic) 112 mg/dL (60-115) 04/06/25 09:18 Laboratory Tests 09/14/19 03/09/20 02/06/21 09:05 Unknown 05:24 BUN Creatinine Hemoglobin A1c % 6.7 Hgb A1c (Clinic) AST ALT Triglycerides LDL Cholesterol Direct HDL Cholesterol Vitamin B12 402 Ur Random Microalbumin 849.0 Urine Creatinine Microalb/Creat Ratio 3810.5 08/19/21 06/07/22 06/04/23 05:18 08:42 08:24 BUN Creatinine Hemoglobin A1c % Hgb A1c (Clinic) AST ALT Triglycerides 1669 LDL Cholesterol Direct 56 HDL Cholesterol 22 Vitamin B12 Ur Random Microalbumin Urine Creatinine 78.59 Microalb/Creat Ratio 11/16/24 11/17/24 11/24/24 11:13 04:58 08:48 BUN 36 H Creatinine 9.00 H* Hemoglobin A1c % Hgb A1c (Clinic) 6.2 H AST 17 ALT 20 Triglycerides LDL Cholesterol Direct HDL Cholesterol Vitamin B12 Ur Random Microalbumin Urine Creatinine Microalb/Creat Ratio Assessment & Plan Assessment & Plan (1) Type 2 diabetes mellitus with hypoglycemia without coma: Code(s): E11.649 - Type 2 diabetes mellitus with hypoglycemia without coma Category: Medical Qualifiers: Diabetes mellitus termite helper insulin use: with termite helper use Qualified Code(s): E11.649 - Type 2 diabetes mellitus with hypoglycemia without coma; Z79.4 - terminal block assembler (current) use of insulin Plan In summary this is a 64-year-old male with controlled type 2 diabetes with chronic insulin use and micro and macrovascular complications. Sample Abhishek 3+ provided today. He is going to apple picking supervisor refills from his pharmacy. Patient will take NovoLog 5 units before breakfast on non dialysis days, 12 units of NovoLog before lunch and reduce to 3 units before dinner to be cautious though he reports sensor is inaccurate compared to his glucometer when alerted to lows. He will remain off Toujeo for now. If you experience low blood sugar, treat this by eating a chewable fruit candy like skittles or jelly beans (about 8 pieces), 4 ounces (1/2 cup) of fruit juice (not diet), 1 tablespoon of honey or 4 glucose tablets. If your blood sugar is under 55, take double the amount of one of the above. Recheck your blood sugar in 15 minutes. Continue to follow up with all specialists as planned. Follow up in 3 months for type 2 diabetes. Orders: Orders Hemoglobin A1c 3 Months E11.9 - Type 2 diabetes mellitus without complications Lipid Panel 3 Months E78.5 - Hyperlipidemia, unspecified Creatinine 3 Months E11.9 - Type 2 diabetes mellitus without complications AMB Glucose Monitoring Today E11.9 - Type 2 diabetes mellitus without complic ations Patient Instructions: NovoLog 5 units before breakfast except on the morning of dialysis days, 12 units of NovoLog before lunch and 3 units before dinner If you experience low blood sugar, treat this by eating a chewable fruit candy like skittles or jelly beans (about 8 pieces), 4 ounces (1/2 cup) of fruit juice (not diet), 1 tablespoon of honey or 4 glucose tablets. If your blood sugar is under 55, take double the amount of one of the above. Recheck your blood sugar in 15 minutes. NovoLo unidades antes del desayuno, excepto la ma?vika de los d?as de di?lisis; 12 unidades de NovoLog antes del almuerzo y 3 unidades antes de la erik. Si experimenta niveles bajos de az?car en la nikky, tr?telo con un caramelo masticable de fruta kenisha Skittles o Jelly Beans (aproximadamente 8 piezas), 113 ml (1/2 taza) de jugo de fruta (no light), 1 cucharada de miel o 4 tabletas de glucosa. Si carter nivel de az?car en la nikky es inferior a 55, tome el doble de la cantidad de sophie de los medicamentos mencionados. Vuelva a medir carter nivel de az?car en la nikky en 15 minutos. Coding Level of Care Code Est Pt Level 4 (76461) Diagnoses Type 2 diabetes mellitus with hypoglycemia without coma, with long-term current use of insulin E11.649; Z79.4 Diabetes mellitus termite helper insulin use: with care home use CPT Codes Details - CPT: 73750 - Glucose monitoring, continuous-physician I&R ([id number])
[2025-04-06 09:14] VITALS: BP 138/66; PULSE 75; O2SAT 98; BMI 29.1
[2025-04-06 09:21] LABS: Glucose, Whole Blood 112 mg/dL (60-115)
--- OUTSIDE RECORDS SUMMARY | 2025-04-06 09:47 | XMS_ITS | Encounter Summary ---
Author Organization [employer] Address [address] [place] [address] Care Team Providers Care Tooth Cutter Clutch Name Role Phone Nuvia Crook Primary Care Provider [phone] Renard Ritchie MD Unavailable [phone] Eliecer Bob MD Unavailable Albert Galaviz MD Unavailable [phone] Encounter Details Date Type Department Care Team (Late st Contact Info) Description 12/30/2023 Telephone [facility] [address] [place] [address] Nuvia Crook ANP [address] [place], [place] [id number] Social History Tobacco Use Types Packs/Day Years [...] Care Team (Late st Contact Info) Description 07/01/2025 9:00 AM EDT Office Visit [facility] [address] [place] [address] Nuvia Crook ANP [address] [place] [address] 07/01/2025 9:30 AM EDT Clinical Support [facility] [address] [place] [address] Lynn Armijo, RN [address] [place] [address] documented as of this encounter Visit Diagnoses Not on filedocumented in this encounter Additional Health Concerns Assessment Noted Time PHQ-9 Depression Total Score: 0 07/02/20 23 9:05 AM EDT documented as of this encounter Care Teams Tooth Cutter Clutch Relationship Specialty Start Date End Date Nuvia Crook ANP [address] [place] [address] PCP - General Family Medicine 06/21/20 Renard Ritchie MD [address] [facility] [address] [place] [address] Nephrology 10/13/24 Eliecer Bob MD [address] [place] [address] Endocrinology 10/13/24 Albert Galaviz MD [address] [place] [address] Cardiology 10/13/24 documented as of this encounter
== END 2025-04-06 09:37 | disposition home or self-care (01) ==
LOC: HO.ENCR 09:05
PROVIDERS: PCP Nurse Practitioner Primary Care; Visit Provider Physician Assistant Medical
DX: E11.649 Type 2 diabetes mellitus with hypoglycemia without coma (principal); Z79.4 Long term (current) use of insulin

== ENCOUNTER → 2025-04-06 09:58 | Outpatient (BNV) | payer OTHER, SELFPAY | PROVIDERS: PCP Nurse Practitioner Primary Care; Visit Provider Radiology Diagnostic Radiology | DX: M25.562 Pain in left knee (principal); V89.2XXA Person injured in unspecified motor-vehicle accident, traffic, initial encounter | CPT/HCPCS: 73562 ==

== ENCOUNTER 2025-04-06 10:29 | Emergency (ER) | payer OTHER, SELFPAY ==
--- NOTE | ~2025-04-06 | XR_ITS ---
EXAMINATION: XR KNEE 3 VIEWS LEFT HISTORY: TRIPPED GETTING OUT OF CAR, LANDED ON KNEE COMPARISON: Comparison is made with the prior examination dated 04/02/2019. FINDINGS: Three views of the left knee are submitted. Osseous mineralization is normal. There is no fracture or dislocation. The joint spaces are preserved. There is no joint effusion. There are vascular calcifications. XR/XR knee LT 3V IMPRESSION: Unremarkable examination of the left knee. Electronically signed by: Eliecer Acosta MD 04/06/2025 11:15 AM EDT
[2025-04-06 10:34] VITALS: BP 174/50; PULSE 74; RESP 16; TEMP 36; O2SAT 99; BMI 29.0
--- NOTE | 2025-04-06 19:06 | PC.NURSE ---
NO ANSWER WHEN CALLED FROM AT 1900
== END 2025-04-06 19:14 | disposition left against medical advice (07) ==
LOC: HO.ED 19:13
PROVIDERS: Emergency Provider Emergency Medicine; PCP Nurse Practitioner Primary Care
DX: M25.562 Pain in left knee (principal); Z79.899 Other long term (current) drug therapy
CPT/HCPCS: 73562; 82947; 99212; 99281

== ENCOUNTER → 2025-05-29 08:02 | Outpatient (BNV) | payer OTHER, SELFPAY | PROVIDERS: Emergency Provider Emergency Medicine Emergency Medical Services; PCP Nurse Practitioner Primary Care; Visit Provider Radiology Diagnostic Radiology | DX: M25.561 Pain in right knee (principal) | CPT/HCPCS: 73564 ==

== ENCOUNTER 2025-05-29 08:46 | Emergency (ER) | payer OTHER, SELFPAY ==
--- NOTE | ~2025-05-29 | XR_ITS ---
CLINICAL HISTORY: pain 4 views right knee Comparison: CR - XR KNEE RT 2V - 11/15/24 10:36 EST Findings: No fractures, subluxations or dislocations. Stable mild degenerative changes. Joint intervals are preserved. No osteochondral lesions or loose bodies. Normal patellar alignment. No suprapatellar joint effusion.No prepatellar soft tissue swelling. Calcified atherosclerotic disease. Partially imaged stent probable SMA stent distal thigh. No unusual radiopaque foreign body. Impression: 1. No acute fractures or malalignment. Stable mild degenerative changes with minimal spurring of the medial knee compartment and posterior patella. This document has been electronically signed by: Rodolfo Baker MD on 05/29/2025 09:14:04
[2025-05-29 08:49] VITALS: BP 148/65; PULSE 76; RESP 17; TEMP 36.2; O2SAT 95; BMI 30.1
--- NOTE | 2025-05-29 09:12 | ED.LOWEXIN ---
HPI - Extremity Injury (Lower) General Chief Complaint: Extremity Injury, Lower Stated Complaint: r knee pain unable to walk on it Time Seen by Provider: 05/29/25 09:02 History of Present Illness HPI Narrative: Patient is a 64-year-old male history of end-stage renal disease on dialysis Saturday fell about a month ago. He was doing fine after the fall. Last 3 days follow up pain to the right knee. There is no additional trauma. Patient is compliant with going to dialysis. There is no fever no chills. Usually walks with a cane. Pain is worse on the medial aspect of the knee. Related Data Home Medications ?Medication ?Instructions ?Recorded ?Confirmed albuterol sulfate 90 mcg/actuation 2 puff PO Q4H PRN Shortness Of 12/01/21 04/06/25 aerosol inhaler (Ventolin HFA) Breath aspirin 81 mg tablet,delayed 1 tab PO DAILY 12/01/21 04/06/25 release cholecalciferol (vitamin D3) 25 2 tab PO DAILY 12/01/21 04/06/25 mcg (1,000 unit) tablet gabapentin 600 mg tablet 300 mg PO BEDTIME 12/01/21 04/06/25 oxcarbazepine 300 mg tablet 1 tab PO BID 12/01/21 04/06/25 perphenazine 2 mg tablet 1 tab PO BID 12/01/21 04/06/25 sertraline 100 mg tablet 2 tab PO DAILY 12/01/21 04/06/25 tramadol 50 mg tablet 2 tab PO Q8H PRN Pain 12/01/21 04/06/25 zolpidem 10 mg tablet 1 tab PO BEDTIME PRN Insomnia 12/01/21 04/06/25 blood-glucose meter (FreeStyle 06/20/22 04/06/25 Lite Meter kit) isosorbide mononitrate 60 mg 120 mg PO QAM 04/16/23 04/06/25 tablet,extended release 24 hr fluticasone furoate 200 1 inh inhalation DAILY 11/16/24 04/06/25 mcg/actuation blister powder for inhalation (Arnuity Ellipta) insulin aspart U-100 100 unit/mL See Rx Instructions subcut .COMPLEX 04/06/25 04/06/25 (3 mL) subcutaneous pen (Novolog FlexPen U-100 Insulin aspart) Previous Rx's ?Medication ?Instructions ?Recorded doxazosin 2 mg tablet 2 mg PO DAILY #90 tabs 04/06/22 torsemide 20 mg tablet 80 mg (4 x 20 mg) PO BID #720 tabs 10/05/22 carvedilol 25 mg tablet 25 mg PO BID 90 days #180 tabs 10/31/22 lancets 28 gauge (FreeStyle #100 ea 10/31/22 Lancets) nifedipine 30 mg tablet,extended 120 mg (4 x 30 mg) PO BEDTIME 90 12/31/22 release days #360 tabs omeprazole 20 mg capsule,delayed 20 mg PO BID 30 days #60 caps 04/16/23 release lancets 33 gauge (TRUEplus Lancets) #100 ea 07/15/23 pen needle, diabetic 32 gauge x #150 ea 07/25/23 (BD Ultra-Fine Silvia Pen Needle) tadalafil 5 mg tablet (Cialis) 5 mg PO DAILY 90 days #90 tabs 10/15/23 diclofenac sodium 1 % topical gel 4 g topical QID #100 grams 05/24/24 (Voltaren Arthritis Pain) atorvastatin 80 mg tablet 80 mg PO BEDTIME #30 tabs 11/02/24 oxycodone 10 mg tablet 10 mg PO Q6H PRN pain #20 tabs 11/18/24 icosapent ethyl 1 gram capsule 2 g (2 x 1 gram) PO BID #120 caps 11/26/24 (Vascepa) blood-glucose sensor (FreeStyle #2 ea 02/23/25 Abhishek 3 Plus Sensor device) 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 Medical History Arthritis of knee, right Knee pain, right Insulin long-term use Diabetic neuropathy Type 2 diabetes, controlled, with renal manifestation ESRD (end stage renal disease) on dialysis CHF exacerbation Diabetes type 2, uncontrolled Anemia HTN (hypertension) Heart failure with preserved ejection fraction CKD (chronic kidney disease) stage 4, GFR 15-29 ml/min Congestive heart failure Type 2 diabetes mellitus with unspecified complications Diastolic dysfunction Essential hypertension Hyperglycemia Hypertensive crisis Pancreatitis Chronic kidney disease, stage 4 (severe) Erectile dysfunction Depression with anxiety Proteinuria Diverticulitis Type 2 diabetes mellitus with hyperglycemia, with long-term current use of insulin Type 2 diabetes mellitus with polyneuropathy Type 2 diabetes mellitus with chronic kidney disease Hypertension Hypertriglyceridemia Diabetes mellitus with hyperglycemia, with long-term current use of insulin History of alcohol abuse Abnormal biopsy of kidney Peptic ulcer Hx of pancreatitis Anxiety Depression COPD (chronic obstructive pulmonary disease) History of headache Sleep apnea Asthma On beta doron at home Elevated cholesterol CHF (congestive heart failure) HTN (hypertension) Surgical History History of esophagogastroduodenoscopy (EGD) History of surgery Hx of right inguinal hernia repair Hx of colonoscopy Family History Family History Mother Diabetes Social History Social History Household Members: None Housing: Apartment Are you a primary resident care aide to a significant other at home: No Do you presently have visiting nurse or 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 Oriented X3. No acute distress. Eyes: Pupils equal, round and reactive to light. ENT: Pharynx normal. Neck: Normal inspection. Neck supple. No lymph nodes noted. No crepitus CVS: Normal heart rate and rhythm. Pulses normal. Normal S1 and S2 Respiratory: No respiratory distress. Breath sounds normal. No Wheezing. No rales Abdomen: Soft and nontender. No rigidity. No distention. good BS x4 Skin: Skin warm and dry. Normal skin color. Normal skin turgor. Extremities: No lower extremity edema. Positive pain on palpation of the medial aspect of the right knee. There is no patellar tenderness. There is good range of motion. Distal sensation intact. Distal pulses intact. Neuro: Oriented X 3. No motor deficit. No sensory deficit. Moving all extermities. No slurred speech Vital Signs: Vital Signs: Last Vital Signs Temp 97.1 F 05/29/25 08:49 Pulse 76 05/29/25 08:49 Resp 17 05/29/25 08:49 BP 148/65 H 05/29/25 08:49 Pulse Ox 95 05/29/25 08:49 O2 Del Method Room Air 05/29/25 08:49 BMI result Body Mass Index 30.1 Medical Decision Making Medical Decision Making [facility] Narrative: Patient has pain to the right knee. My interpretation patient's x-rays show no acute fracture. Patient in no acute distress. Has good range of motion at the knee. Has good distal pulses has no signs of infection. Labs were drawn. Patient's potassium is 4.9. Has a history of end-stage renal disease creatinine is 9 is his baseline patient's pH is normal. Before we can talk to him he eloped from the emergency department. He is in no acute distress. Differential Diagnosis Differential Diagnoses: The differential diagnosis associated with the presentation includes Fracture, infection, arthritis Admission/Observation Consideration of admission/observation: Escalation of care including admission/observation considered Lab Data [facility] Lab Attestation statement: I reviewed the patient's lab results. 05/29/25 09:45 05/29/25 09:45 Labs: Lab Results 05/29/25 05/29/25 Range/Units 09:45 09:50 WBC 6.3 (4.8-10.8) X10*3/uL RBC 3.06 L (4.60-5.80) X10*6/uL Hgb 10.3 L (14.0-18.0) g/dl Hct 28.7 L (42.0-52.0) % MCV 93.8 (80.0-98.0) fL MCH 33.7 H (27.0-33.0) pg MCHC 35.9 (31.0-36.0) g/dl RDW 14.8 (11.0-16.0) % Plt Count 106 L (160-400) X10*3/uL MPV 11.4 (9.4-12.4) fL Immature Gran % (Auto) 0.5 H (0.0-0.4) % Neut % (Auto) 75.7 H (45-73) % Lymph % (Auto) 15.7 L (20-40) % [place] % (Auto) 5.1 (2-11) % Eos % (Auto) 2.7 (0-4) % Baso % (Auto) 0.3 (0-2) % Lymph # (Auto) 1.0 L (1.2-4.9) X10*3/uL [place] # (Auto) 0.3 (0.1-1.2) X10*3/uL Eos # (Auto) 0.2 (0.0-0.4) X10*3/uL Baso # (Auto) 0.0 (0.0-0.2) X10*3/uL Abs Immat Gran (auto) 0.03 (0.00-0.03) X10*3/uL Absolute Neuts (auto) 4.8 (2.0-8.3) x10*3/uL Absolute Nucleated RBC 0.000 (0.0-0.012) X10*3/uL Nucleated RBC % (auto) 0.0 (0.0-0.2) /100WBC VBG pH 7.47 H (7.32-7.43) VBG pCO2 47 mmHg VBG pO2 69 mmHg VBG HCO3 34 H (22-26) mmol/L VBG O2 Saturation 95.0 % VBG Base Excess 9.6 mmol/L Sodium 139 (135-145) mmol/L Potassium 4.9 (3.3-5.1) mmol/L Chloride 96 (96-108) mmol/L Carbon Dioxide 28 (22-29) mmol/L Anion Gap 20 (12-20) BUN 43 H (9-16) mg/dL Creatinine 9.00 H* (0.5-1.4) mg/dL Estim Creat Clear Calc 9.8 Estimated GFR 6 Random Glucose 196 H (60-115) mg/dL Calcium 8.4 (8.4-10.2) mg/dL Magnesium 1.7 (1.6-2.6) mg/dL Independent Interpretation I performed an independent interpretation of an: Plain X-Ray (My interpretation patient's x-ray is grossly negative for any acute evidence of fracture) Radiology Impression Discussion of test interpretation with radiology: I have reviewed the radiologist's reading. Chronic Conditions End-stage renal disease Social Determinants Patient?s care significantly limited by Social Determinants of Health including: Problems related to primary support group Discharge Plan Discharge Clinical Impression: Acute knee pain Patient Disposition: Elopement Prescriptions: No Action doxazosin 2 mg tablet 2 mg PO DAILY Qty: 90 1RF torsemide 20 mg tablet 80 mg PO BID Qty: 720 1RF Rx Instructions: OVERDUE FOR FOLLOW UP APPT. PLEASE CALL TO SCHEDULE APPT FOR 2022 @ [phone] TO CONTINUE RECVING REFILLS. carvedilol 25 mg tablet 25 mg PO BID 90 Days Qty: 180 2RF Rx Instructions: OVERDUE FOR APPT. PLEASE CALL [phone] TO SCHEDULE FOLLOW UP SO WE CAN CONTINUE REFILLING THIS PRESCRIPTION. (DME) lancets [FreeStyle Lancets] 28 gauge misc See Rx Instructions .Route Qty: 100 6RF Rx Instructions: As directed nifedipine 30 mg tablet extended release 120 mg PO BEDTIME 90 Days Qty: 360 0RF Rx Instructions: Must make cardiology appt for refills (DME) lancets [TRUEplus Lancets] 33 gauge misc See Rx Instructions .ROUTE .COMPLEX Qty: 100 6RF Dose Instruction: TEST BLOOD SUGAR FOUR TIMES DAILY DIRECTED Rx Instructions: TEST BLOOD SUGAR FOUR TIMES DAILY DIRECTED (DME) pen needle, diabetic [BD Ultra-Fine Silvia Pen Needle] 32 gauge x 5/32 needle See Rx Instructions .ROUTE .MEDSUPPLY Qty: 150 11RF Rx Instructions: As directed five times a day atorvastatin 80 mg tablet 80 mg PO BEDTIME Qty: 30 5RF icosapent ethyl [Vascepa] 1 gram capsule 2 g PO BID Qty: 120 6RF gabapentin 600 mg tablet 300 mg PO BEDTIME perphenazine 2 mg tablet 1 tab PO BID sertraline 100 mg tablet 2 tab PO DAILY oxcarbazepine 300 mg tablet 1 tab PO BID aspirin 81 mg tablet,delayed release (DR/EC) 1 tab PO DAILY tramadol 50 mg tablet 2 tab PO Q8H PRN (Reason: Pain) zolpidem 10 mg tablet 1 tab PO BEDTIME PRN (Reason: Insomnia) cholecalciferol (vitamin D3) 25 mcg (1,000 unit) tablet 2 tab PO DAILY albuterol sulfate [Ventolin HFA] 90 mcg/actuation HFA aerosol inhaler 2 puff PO Q4H PRN (Reason: Shortness Of Breath) diclofenac sodium [Voltaren Arthritis Pain] 1 % gel 4 g topical QID Qty: 100 0RF Rx Instructions: apply to single affected area Arnuity Ellipta 200 mcg/actuation blister with device 1 inh INHALATION DAILY oxycodone 10 mg tablet 10 mg PO Q6H PRN (Reason: pain) Qty: 20 0RF Rx Instructions: Partial Fill upon patient request. (DME) blood-glucose meter [FreeStyle Lite Meter] Kit See Rx Instructions .Route Rx Instructions: As directed tadalafil [Cialis] 5 mg tablet 5 mg PO DAILY 90 Days Qty: 90 1RF Rx Instructions: [id number] [facility] [id number] Member [id number] isosorbide mononitrate 60 mg tablet extended release 24 hr 120 mg PO QAM Rx Instructions: Current regimen omeprazole 20 mg capsule,delayed release(DR/EC) 20 mg PO BID 30 Days Qty: 60 0RF (DME) FreeStyle Abhishek 3 Plus Sensor Device See Rx Instructions .ROUTE .MEDSUPPLY Qty: 2 11RF Rx Instructions: Apply 1 new sensor every 15 days as directed to monitor blood glucose continuously. (DME) FreeStyle Abhishek 3 [place] Misc See Rx Instructions .ROUTE .MEDSUPPLY Qty: 1 0RF Rx Instructions: Use daily to monitor blood glucose levels continuously. insulin aspart U-100 [Novolog FlexPen U-100 Insulin] 100 unit/mL (3 mL) insulin pen See Rx Instructions subcut .COMPLEX Rx Instructions: 5 units before breakfast on non-dialysis days, 12 units before lunch and 3 units before dinner (DME) FreeStyle Lite Strips Strip See Rx Instructions .Route Qty: 200 11RF Rx Instructions: As directed 4x DAILY Print Language: Kazakh
--- OUTSIDE RECORDS SUMMARY | 2025-05-29 09:28 | XMS_ITS | Patient Health Record ---
Author Organization [facility] Address [address] [place] [address] Care Team Providers Care Clinical Trials Specialist Name Role Phone Kady WAITE, Gonzalez Primary Care Provider Eliecer Langley Unavailable [phone] Reason For Referral No Information Medications Medication SIG (Take, Route, Frequency, Duration) Notes Start Date End Date Status metFORMIN HCl 1000 MG Oral for 30 Active Albuterol Sulfate HFA 108 (90 Base) MCG/ACT 2 puffs as needed Inhalation every 4 hrs Active Acetaminophen 500 MG Oral for 8 Active Lipitor 20 MG 1 tablet Orally Once a day Active Atenolol 50 MG Oral for 30 Act carson Lisinopril 40 MG Oral for 30 A ctive traMADol HCl 50 MG 1 tablet as needed O rally every 6 hrs Active Norvasc 5 MG 1 tablet Orally Once a day Active Gemfibrozil 600 MG Oral for 30 Active Lac-Hydrin 12 % 1 application to aff ected area Externally Twice a day Active Perphenazine 4 MG Oral for 30 Active Vitamin D3 1000 UNIT Oral for 30 Active NIFEdipine ER Osmotic 90 MG Oral for 30 Active Aspirin EC Low Dose 81 MG Oral for 30 Active FreeStyle Lite Test In Vitro for 25 Active OXcarbazepine 300 MG Oral for 30 Active Problems Problem Type SNOMED Code ICD Code Onset Dates Problem Status W/U Status Risk Notes Problem Other and unspecified hyperlipidemia (272.4) Active confirmed Low Problem Acute pancreatitis (286145757) Acute pancreatitis (577.0) Active confirmed Plan Of Treatment No Information Insurance Providers Payer Name Payer Address Payer Phone Subscriber Number Group Number Insured Name Patient Relationship to Insured Coverage Start Date Coverage End Date [facility] [address] [address] [place], [place] [id number] [phone] [id number] JELANI JACINTO Self - patient is the insured Medical (General) History Medical History History ICD Code NIDDM hypertension asthma He has had [address] Abrams and Dr. Castillo Denies [place] and CVA Proteinuria--sees Dr. Vieira Pancreatitis-acute--due to h ypertriglyceridemia--TG > 3,000 in 09/2013--he was also on hydrochlorothiazide at that time. He did have a similar episode of pancreatitis in 2005. He has had negative gallbladder ultrasound, he does not use any significant amounts of alcohol presently nor in the past, and a CAT scan of the pancreas was otherwise normal besides the changes of acute pancreatitis. Diverticulitis Surgical History Surgery Date(Month/Year) hernia
--- OUTSIDE RECORDS SUMMARY | 2025-05-29 09:28 | XMS_ITS | Clinical Summary ---
Author Organization [facility] Address [address] [place] [address] [place] [id number] Phone Care Team Providers Care Limo Driver Name Role Phone Gonzalez Hillman NP Primary Care Provider [phone] Tash Tim MD Unavailable [phone] Social History Tobacco Use Types Packs/Day Years Used Date Smoking Tobacco: Former Smokeless Tobacco: Never Education Answer Date Recorded Are you interested in more education? Not on chino e 02/22/2023 Are you concerned about learning? Not on file 02/22/2023 No 02/22/2023 No 02/22/2023 Digital Access Answer Date Recorded No 03/23/2023 No 03/23/2023 No 03/23/2023 Reliable internet access at home? Not on file 03/23/2023 Device with a working camera? Not on file Sex and Gender Information Value Date Recorded Sex Assigned at Not on file Legal Sex Male 12:42 PM EDT Gender Identity Not on file Sexual Orientation Not on file Last Filed Vital Signs Vital Sign Reading Time Taken Comments Blood Pressure 142/85 11/26/2019 1:17 PM EST Pulse 76 11/26/2019 1:17 PM EST Temperature 36.8 C (98.2 F) 11/26/2019 1:17 PM EST Respiratory Rate 18 10/22/2019 11:0 5 AM EST Oxygen Saturation 97% 11/26/2019 1:1 7 PM EST Inhaled Oxygen Concentration - - Weight 110.5 kg (243 lb 9.7 oz) 11/26/2019 1:17 PM EST Height 176.9 cm (5' 9.65 ) 11/26/2019 1 :17 PM EST dfci copied Body Mass Index 35.31 11/26/2019 1:17 PM EST Plan of Treatment Health Maintenance Due Date Last Done Comments LIPID PANEL 1960 DEPRESSION SCREENING 1972 SMOKING Hx and SMOKELESS TOBACCO SCREENING 1973 HEPATITIS C SCREENING 1978 HIV ONE-TIME SCREENING (18-6 5 YEARS) 1978 COLOGUARD 2005 COLONOSCOPY 2005 COLORECTAL CANCER SCREENING 2005 FIT TEST 2005 FOBT 2005 SIGMOIDOSCOPY 2005 VIRTUAL COLONOSCOPY 2005 PNEUMOCOCCAL VACCINES (50+ years) (2 of 2 - PCV) 04/07/2020 04/07/2019, 03/24/2010 COVID-19 VACCINE (4 - 2023-2 5 season) 2024 10/30/2021, 01/20/2021, 12/23/2020 Adult Td,Tdap Booster 06/09/2031 06/09/2021 , 09/04/2010 RSV VACCINE (1 - 1-dose 75+ series) 2035 ZOSTER VACCINES Completed 06/08/2021, 04/06/2021 HEPATITIS A VACCINES Aged Out No long er eligible based on patient's age to complete this topic HIB VACCINES Aged Out No longer eligi ble based on patient's age to complete this topic MENINGOCOCCAL VACCINES (ACWY) Aged Out No longer eligible based on patient's age to complete this topic MENINGOCOCCAL VACCINES (B) Aged Out N o longer eligible based on patient's age to complete this topic Medical Devices Not on file Insurance [facility] MEDICARE REPLACEMENT apt [address] [place] [address] CARE MEDICARE REPLACEMENT apt [address] [place] [address] MEDICARE REPLACEMENT [address] [place], [place] [id number] FOR[facility] MEDICARE REPLACEMENT MEDICARE REPLACEMENT apt [address] [place] [address] MEDICARE REPLACEMENT apt [address] [place] [address] MEDICARE REPLACEMENT [facility] MEDICARE REPLACEMENT FORMERLY [facility] MEDICARE REPLACEMENT Care Teams Limo Driver Relationship Specialty Start Date End Date Gonzalez Hillman NP [address] [place] [address] PCP - General Family Medicine 09/28/19 Tash Tim MD [address] [place] [id number] [email or web address] Referring Physician Hematology and Oncology 09/28/19 Additional Source Comments The information contained in this document represents components of the legal health record. It is not the complete legal health record.[facility]
--- OUTSIDE RECORDS SUMMARY | 2025-05-29 09:28 | XMS_ITS | Clinical Summary ---
Author Organization [facility] Address [address] [place] [address] Phone Care Team Providers Care Tipple Oiler Name Role Phone Ambreen Nuvia Wiley NP Primary Care Provider [phone] Allergies No known active allergies Medications aspirin [...] 01/2021 Essential hypertension 12/29/202005/29 Hypertensive heart disease [facility] congestive heart failure 12/29/2020 05/29/2021 Morbid obesity 12/29/2020 05/29/2021 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/29/2020 05/29/2021 Sleep apnea 12/29/2020 05/29/2021 Type 2 diabetes mellitus 12/29/202011/2020 Encounters Date Type Department Care Team Description 05/24/2025 Treatment [facility] [address] [phone] Renard Ritchie MD End stage renal disease; Dependence on renal dialysis 05/12/2025 Treatment [facility] [address] [phone] Renard Ritchie MD End stage renal disease; Dependence on renal dialysis 05/03/2025 Treatment [facility] [address] [phone] Renard Ritchie MD End stage renal disease; Dependence on renal dialysis 04/28/2025 Treatment [facility] [address] [phone] Renard Ritchie MD End stage renal disease; Dependence on renal dialysis 04/19/2025 Treatment [facility] [address] [phone] Renard Ritchie MD End stage renal disease; Dependence on renal dialysis 04/14/2025 Orders Only [facility] [address] [phone] Renard Ritchie MD 04/12/2025 Treatment [facility] [address] [phone] Renard Ritchie MD End stage renal disease; Dependence on renal dialysis 04/05/2025 Treatment [facility] [address] [phone] Renard Ritchie MD End stage renal disease; Dependence on renal dialysis 03/29/2025 Treatment [facility] [address] [phone] Renard Ritchie MD End stage renal disease; Dependence on renal dialysis 03/24/2025 Treatment [facility] [address] [phone] Renard Ritchie MD End stage renal disease; Dependence on renal dialysis 03/19/2025 Treatment [facility] [address] [phone] Renard Ritchie MD End stage renal disease; Dependence on renal dialysis 03/08/2025 Treatment [facility] [address] [phone] Renard Ritchie MD End stage renal disease; Dependence on renal dialysis 03/01/2025 Treatment [facility] [address] [phone] Renard Ritchie MD End stage renal disease; Dependence on renal dialysis from Last 3 Months Immunizations Immunization Administration [...] Visual Foot Exam 11/28/2020 Influenza Vaccine (#1) 2025 , 08/02/2023, 07/24/2022, Additional history exists Diabetes: Hemoglobin A1C 07/29/2025 025, 01/27/2025, 09/10/2024, Additional history exists Pneumococcal Vaccine: 50+ Years Completed 02/04/2024, 04/07/2019, 03/24/2010 Pneumococcal Vaccine: Peds ( 0 to 5 Years) and At-Risk Patients (6 to 49 Years) Discontinued 02/04/2024, 04/07/2019, 03/24/2010 Procedures Procedure Name Priority Date/Time Associated Diagnosis Comments HEMOGLOBIN Routine 05/26/2025 3:00 AM EDT CONFIRMATION TEST HCV Routine 05/21/2025 3:00 AM EDT HEPATITIS C ABS W/REFLEX RNA DETECTR Routine 05/21/2025 3:00 AM EDT LIH (HC) Routine 05/19/2025 3:00 AM EDT PHOSPHATE ( PHOSPHORUS) Routine 05/19/2025 3:00 AM EDT HEMOGLOBIN Routine 05/12/2025 3:00 AM EDT HEMOGLOBIN A1C Routine 04/28/2025 3:00 AM EDT FERRITIN Routine 04/28/2025 3:00 AM EDT PROTEIN, TOTAL, SERUM Routine 04/28/2025 3:00 AM EDT LIPID PANEL Routine 04/28/2025 3:00 AM EDT LIH (HC) Routine 04/28/2025 3:00 AM EDT CREATININE, SERUM Routine 04/28/2025 3:0 0 AM EDT ELECTROLYTE PANEL Routine 04/28/2025 3:0 0 AM EDT BILIRUBIN, TOTAL Routine 04/28/2025 3:00 AM EDT TRANSFERRIN SATURATION Routine 3:00 AM EDT AST Routine 04/28/2025 3:00 AM EDT LACTATE DEHYDROGENASE Routine 04/28/2025 3:00 AM EDT GLUCOSE, RANDOM Routine 04/28/2025 3:00 AM EDT MAGNESIUM Routine 04/28/2025 3:00 AM EDT ALKALINE PHOSPHATASE Routine 04/28/2025 3:00 AM EDT CALCIUM PHOSPHORUS PRODUCT, ADJUSTED (HC) Routine 04/28/2025 3:00 AM EDT BUN/CREATININE RATIO Routine 04/28/2025 3:00 AM EDT ALT Routine 04/28/2025 3:00 AM EDT PTH, INTACT Routine 04/28/2025 3:00 AM EDT CBC AND DIFFERENTIAL Routine 04/28/2025 3:00 AM EDT KT/V NATURAL LOG, URR (HC) Routine 04/28/2025 3:00 AM EDT HEMOGLOBIN Routine 04/26/2025 3:00 AM EDT HEMOGLOBIN Routine 04/19/2025 3:00 AM EDT HEMOGLOBIN Routine 04/14/2025 3:00 AM EDT LIH (HC) Routine 04/05/2025 3:00 AM EDT KT/V NATURAL LOG, URR (HC) Routine 04/05/2025 3:00 AM EDT FERRITIN Routine 03/31/2025 3:00 AM EDT TRANSFERRIN SATURATION Routine 3:00 AM EDT PROTEIN, TOTAL, SERUM Routine 03/31/2025 3:00 AM EDT MAGNESIUM Routine 03/31/2025 3:00 AM EDT ELECTROLYTE PANEL Routine 03/31/2025 3:0 0 AM EDT LIH (HC) Routine 03/31/2025 3:00 AM EDT LACTATE DEHYDROGENASE Routine 03/31/2025 3:00 AM EDT GLUCOSE, RANDOM Routine 03/31/2025 3:00 AM EDT BUN/CREATININE RATIO Routine 03/31/2025 3:00 AM EDT CREATININE, SERUM Routine 03/31/2025 3:0 0 AM EDT BILIRUBIN, TOTAL Routine 03/31/2025 3:00 AM EDT ALT Routine 03/31/2025 3:00 AM EDT ALKALINE PHOSPHATASE Routine 03/31/2025 3:00 AM EDT AST Routine 03/31/2025 3:00 AM EDT CALCIUM PHOSPHORUS PRODUCT, ADJUSTED (HC) Routine 03/31/2025 3:00 AM EDT PTH, INTACT Routine 03/31/2025 3:00 AM EDT KT/V NATURAL LOG, URR (HC) Routine 03/31/2025 3:00 AM EDT CBC AND DIFFERENTIAL Routine 03/31/2025 3:00 AM EDT HEMOGLOBIN Routine 03/17/2025 3:00 AM EDT FERRITIN Routine 03/10/2025 3:00 AM EDT PTH, INTACT Routine 03/08/2025 3:00 AM EDT TRANSFERRIN SATURATION Routine 3:00 AM EDT PROTEIN, TOTAL, SERUM Routine 03/03/2025 3:00 AM EDT MAGNESIUM Routine 03/03/2025 3:00 AM EDT ELECTROLYTE PANEL Routine 03/03/2025 3:0 0 AM EDT LIH (HC) Routine 03/03/2025 3:00 AM EDT LACTATE DEHYDROGENASE Routine 03/03/2025 3:00 AM EDT GLUCOSE, RANDOM Routine 03/03/2025 3:00 AM EDT BUN/CREATININE RATIO Routine 03/03/2025 3:00 AM EDT CREATININE, SERUM Routine 03/03/2025 3:0 0 AM EDT AST Routine 03/03/2025 3:00 AM EDT BILIRUBIN, TOTAL Routine 03/03/2025 3:00 AM EDT ALT Routine 03/03/2025 3:00 AM EDT ALKALINE PHOSPHATASE Routine 03/03/2025 3:00 AM EDT CALCIUM PHOSPHORUS PRODUCT, ADJUSTED (HC) Routine 03/03/2025 3:00 AM EDT KT/V NATURAL LOG, URR (HC) Routine 03/03/2025 3:00 AM EDT CBC AND DIFFERENTIAL Routine 03/03/2025 3:00 AM EDT from Last 3 Months Results * (ABNORMAL) Hemoglobin (05/26/2025 3:00 AM EDT) Only the most recent of6 resultswithin the time period is included. Hgb 11.1(L) 13.7 - 17.5 g/dL [facility] Hemoglobin x 3 33.3(L) 41.1 - 52.5 g/dL [facility] 05/26/2025 3:00 AM EDT 05/27/2025 1:50 PM EDT us Renard Ritchie MD LAB BLOOD ORDERABLES Final Re sult Performing Organization Address [facility] Co de Phone Number [facility] [address] [place] [address] * Confirmation Test HCV (05/21/2025 3:00 AM EDT) Hep C Ab Confirmation Not needed [facility] 05/21/2025 3:00 AM EDT 05/22/2025 1:12 PM EDT Renard Ritchie MD LAB BLOOD ORDERABLES Final Re sult Performing Organization Address [facility] de Phone Number [facility] [address] [place] [address] * HEPATITIS C ABS W/REFLEX RNA DETECTR (05/21/2025 3:00 AM EDT) Hep C Virus Ab Non-Reacti ve Non-Reacti ve [facility] 05/21/2025 3:00 AM EDT 05/22/2025 1:18 PM EDT Renard Ritchie MD LAB [id number] SOLICITED RESULTS Final Result Performing Organization Address [facility] de Phone Number [facility] [address] [place] [address] * LIH (05/19/2025 3:00 AM EDT) Only the most recent of5 resultswithin the time period is included. Lipemia Normal Normal [facility] Icterus Normal Normal [facility] Hemolysis Normal Normal [facility] 05/19/2025 3:00 AM EDT 05/21/2025 12:46 PM EDT Renard Ritchie MD LAB [id number] SOLICITED RESULTS Final Result Performing Organization Address [facility] Co de Phone Number [facility] [address] [place] [address] * Phosphorus (05/19/2025 3:00 AM EDT) Phosphorus, Serum 3.9 2.5 - 5.0 mg/dL [facility] 05/19/2025 3:00 AM EDT 05/21/2025 12:46 PM EDT Renard Ritchie MD LAB BLOOD ORDERABLES Final Re sult Performing Organization Address [facility]/ZIP Co de Phone Number [facility] [address] [place] [address] * (ABNORMAL) Kt/V Natural Log, URR (04/28/2025 3:00 AM EDT) Only the most recent of4 resultswithin the time period is included. Treatment Time 244 min [facility] Pre-Weight, lb 96.8 kg [facility] Post-Weight, lb 93.5 kg [facility] Ultrafiltration Rate 9 <=13 mL/kg/hr [facility] Comment: Recommend achieving Ultrafiltration Rate (UFR) <=10 mL/kg/hr References: Kei BOOKER et al. Kidney Int. 2010; 79(2):250-257 BUN 51(H) 7 - 25 mg/dL [facility] BUN Post Dialysis 15 7 - 25 mg/dL [facility] UREA REDUCTION RATIO (%) 71 >=65 % [facility] Kt/V Natural Log 1.45 >=1.2 [facility] 04/28/2025 3:00 AM EDT 04/29/2025 12:10 PM EDT Renard Ritchie MD LAB [id number] SOLICITED RESULTS Final Result Performing Organization Address [facility]/ZIP Co de Phone Number [facility] [address] [place] [address] * (ABNORMAL) Calcium Phosphorus Product, Adjusted (04/28/2025 3:00 AM EDT) Only the most recent of3 resultswithin the time period is included. Albumin 4.7 3.6 - 5.4 g/dL [facility] Calcium 8.8 8.6 - 10.3 mg/dL [facility] Phosphorus, Serum 5.7(H) 2.5 - 5.0 mg/dL [facility] Ca*PO4 50.2 <55.0 mg2/dL2 [facility] Calcium, Adjusted Total 8.8 8.6 - 10.3 mg/dL [facility] CA*PO4 CORRCTD 50.2 <55.0 mg2/dL2 [facility] 04/28/2025 3:00 AM EDT 04/29/2025 12:13 PM EDT Renard Ritchie MD LAB [id number] SOLICITED RESULTS Final Result Performing Organization Address [facility] de Phone Number [facility] [address] [place] [address] * BUN/CREATININE RATIO (04/28/2025 3:00 AM EDT) Only the most recent of3 resultswithin the time period is included. BUN/Creatinine Ratio 4.8 <=23.0 [facility] 04/28/2025 3:00 AM EDT 04/29/2025 12:13 PM EDT Renard Ritchie MD LAB [id number] SOLICITED RESULTS Final Result Performing Organization Address [facility] de Phone Number [facility] [address] [place] [address] * (ABNORMAL) TSAT (04/28/2025 3:00 AM EDT) Only the most recent of3 resultswithin the time period is included. Iron 88 65 - 175 ug/dL [facility] Transferrin 128(L) 215 - 365 mg/dL [facility] TIBC 179(L) 211 - 406 ug/dL [facility] Iron Saturation (TSat) 49 22 - 52 % [facility] 04/28/2025 3:00 AM EDT 04/29/2025 12:13 PM EDT us Renard Ritchie MD LAB BLOOD ORDERABLES Final Re sult Performing Organization Address [facility] de Phone Number [facility] [address] [place] [address] * (ABNORMAL) CBC and Differential (04/28/2025 3:00 AM EDT) Only the most recent of3 resultswithin the time period is included. Pathologist [facility] DIFFERENTIAL MANUAL, 2 Not Indicated [facility] White Blood Cells 6.5 4.2 - 9.1 K/uL [facility] RBC 3.79(L) 4.63 - 6.08 M/uL [facility] Hgb 12.8(L) 13.7 - 17.5 g/dL [facility] Hemoglobin x 3 38.4(L) 41.1 - 52.5 g/dL [facility] Hematocrit 36.7(L) 40.1 - 51.0 % [facility] MCV 96.8(H) 79.0 - 92.2 fL [facility] MCH 33.8(H) 25.7 - 32.2 pg [facility] MCHC 34.9 32.3 - 36.5 g/dL [facility] RDW 14.8(H) 11.6 - 14.4 % [facility] Platelets 125(L) 163 - 337 K/uL [facility] Neutrophils Relative 64.5 34.0 - 67.9 % [facility] Lymphocytes Relative 24.8 21.8 - 53.1 % [facility] Monocytes 6.1 5.3 - 12.2 % [facility] Eosinophils Relative 3.5 0.8 - 7.0 % [facility] Basophils Relative 0.8 0.2 - 1.2 % [facility] Immature Granulocytes 0.3 0.0 - 1.0 % [facility] 04/28/2025 3:00 AM EDT 04/29/2025 1:14 PM EDT us Renard Ritchie MD LAB BLOOD ORDERABLES Final Re sult [facility] [address] [place] [address] * ALT (04/28/2025 3:00 AM EDT) Only the most recent of3 resultswithin the time period is included. Pathologist [facility] ALT (SGPT) 20 10 - 49 U/L [facility] 04/28/2025 3:00 AM EDT 04/29/2025 12:13 PM EDT Renard Ritchie MD LAB BLOOD ORDERABLES Final Re sult Performing Organization Address [facility] de Phone Number [facility] [address] [place] [address] * AST (04/28/2025 3:00 AM EDT) Only the most recent of3 resultswithin the time period is included. AST (SGOT) 18 <34 U/L [facility] 04/28/2025 3:00 AM EDT 04/29/2025 12:13 PM EDT Renard Ritchie MD LAB BLOOD ORDERABLES Final Re sult Performing Organization Address [facility] de Phone Number [facility] [address] [place] [address] * Protein, total (04/28/2025 3:00 AM EDT) Only the most recent of3 resultswithin the time period is included. Total Protein 7.7 6.4 - 8.9 g/dL [facility] 04/28/2025 3:00 AM EDT 04/29/2025 12:13 PM EDT Renard Ritchie MD LAB BLOOD ORDERABLES Final Re sult Performing Organization Address [facility] de Phone Number [facility] [address] [place] [address] * Alkaline phosphatase (04/28/2025 3:00 AM EDT) Only the most recent of3 resultswithin the time period is included. Alkaline Phosphatase 90 46 - 116 U/L [facility] 04/28/2025 3:00 AM EDT 04/29/2025 12:13 PM EDT Renard Ritchie MD LAB BLOOD ORDERABLES Final Re sult Performing Organization Address [facility] Co de Phone Number [facility] [address] [place] [address] * PTH, Intact (04/28/2025 3:00 AM EDT) Only the most recent of3 resultswithin the time period is included. PTH, Intact 189 160 - 721 pg/mL [facility] Comment: Suggested (KDIGO) ESRD maintenance range is two to nine times the upper normal limit (80.1 pg/mL) for the laboratory. 04/28/2025 3:00 AM EDT 04/29/2025 12:13 PM EDT Renard Ritchie MD LAB BLOOD ORDERABLES Final Re sult Performing Organization Address [facility] de Phone Number [facility] [address] [place] [address] * Magnesium (04/28/2025 3:00 AM EDT) Only the most recent of3 resultswithin the time period is included. Magnesium 2.0 1.9 - 2.7 mg/dL [facility] 04/28/2025 3:00 AM EDT 04/29/2025 12:13 PM EDT Renard Ritchie MD LAB BLOOD ORDERABLES Final Re sult Performing Organization Address [facility] de Phone Number [facility] [address] [place] [address] * Lactate dehydrogenase (04/28/2025 3:00 AM EDT) Only the most recent of3 resultswithin the time period is included. LDH 200 120 - 246 U/L [facility] 04/28/2025 3:00 AM EDT 04/29/2025 12:13 PM EDT us Renard Ritchie MD LAB BLOOD ORDERABLES Final Re sult Performing Organization Address [facility] de Phone Number [facility] [address] [place] [address] * Hemoglobin A1c (04/28/2025 3:00 AM EDT) Hemoglobin A1C 5.5 <5.7 % [facility] Comment: Methodology: Enzymatic Normal: <5.7% Prediabetes: 5.7-6.4% Diabetes: >6.4% Diabetic Glucose Control Evaluation: Therapeutic action suggested at >8.0% ADA recommends a glycemic goal of <7.0% 04/28/2025 3:00 AM EDT 04/29/2025 1:14 PM EDT us Renard Ritchie MD LAB BLOOD ORDERABLES Final Re sult Performing Organization Address [facility] de Phone Number [facility] [address] [place] [address] * (ABNORMAL) Glucose, random (04/28/2025 3:00 AM EDT) Only the most recent of3 resultswithin the time period is included. Glucose 109(H) 70 - 99 mg/dL [facility] Comment: ADA guidelines outline the following fasting glucose ranges: Normal: <100 Prediabetes: 100-125 Diabetes: >125 04/28/2025 3:00 AM EDT 04/29/2025 12:13 PM EDT us Renard Ritchie MD LAB BLOOD ORDERABLES Final Re sult Performing Organization Address [facility] de Phone Number [facility] [address] [place] [address] * (ABNORMAL) Ferritin (04/28/2025 3:00 AM EDT) Only the most recent of3 resultswithin the time period is included. Ferritin 1,337(H) 22 - 322 ng/mL [facility] 04/28/2025 3:00 AM EDT 04/29/2025 12:13 PM EDT us Renard Ritchie MD LAB BLOOD ORDERABLES Final Re sult Performing Organization Address [facility] de Phone Number [facility] [address] [place] [address] * (ABNORMAL) Creatinine, serum (04/28/2025 3:00 AM EDT) Only the most recent of3 resultswithin the time period is included. Creatinine 10.53(H) 0.70 - 1.30 mg/dL [facility] 04/28/2025 3:00 AM EDT 04/29/2025 12:13 PM EDT Renard Ritchie MD LAB BLOOD ORDERABLES Final Re sult Performing Organization Address [facility] Co de Phone Number [facility] [address] [place] [address] * (ABNORMAL) Bilirubin, total (04/28/2025 3:00 AM EDT) Only the most recent of3 resultswithin the time period is included. Total Bilirubin <0.2(L) 0.3 - 1.2 mg/dL [facility] 04/28/2025 3:00 AM EDT 04/29/2025 12:13 PM EDT Renard Ritchie MD LAB BLOOD ORDERABLES Final Re sult Performing Organization Address [facility] Co de Phone Number [facility] [address] [place] [address] * (ABNORMAL) Lipid panel (04/28/2025 3:00 AM EDT) Cholesterol 286(H) mg/dL [facility] Comment: Optimal: <200 Borderline: 200-239 High Risk: >239 Triglycerides 1,387(H) mg/dL [facility] Comment: Verified by repeat analysis Optimal: <150 Borderline: 150-200 High Risk: >200 HDL 25(L) mg/dL [facility] Comment: Optimal: >59 Borderline: 40-59 High Risk: <40 LDL-Calc See Comment mg/dL [facility] Comment: LDL/VLDL Cholesterol calculation not valid for Triglycerides >400 Optimal: <100 Borderline: 100-159 High Risk: >159 VLDL Cholesterol Eris See Comment mg/dL [facility] Comment: LDL/VLDL Cholesterol calculation not valid for Triglycerides >400 Optimal: <30 Borderline: 30-40 High Risk: >40 Chol/HDL Ratio 11.4(H) [facility] Comment: Optimal: <3.3 High Risk: >6.2 04/28/2025 3:00 AM EDT 04/29/2025 12:13 PM EDT Renard Ritchie MD LAB BLOOD ORDERABLES Final Re sult Performing Organization Address [facility] de Phone Number [facility] [address] [place] [address] * (ABNORMAL) Electrolyte panel (04/28/2025 3:00 AM EDT) Only the most recent of3 resultswithin the time period is included. Sodium 138 136 - 145 mEq/L [facility] Potassium 4.8 3.4 - 5.0 mEq/L [facility] Chloride 97(L) 98 - 107 mEq/L [facility] Bicarbonate (CO2) 25 21 - 31 mEq/L [facility] Anion Gap 16(H) 3 - 14 mEq/L [facility] 04/28/2025 3:00 AM EDT 04/29/2025 12:13 PM EDT Renard Ritchie MD LAB BLOOD ORDERABLES Final Re sult Performing Organization Address [facility] de Phone Number [facility] [address] [place] [address] from Last [address] [place] [id number] [facility] ([id number]) [facility] ([id number]) Care Teams Tipple Oiler Relationship Specialty Start Date End Date Nuvia Crook NP [address] [place] [address] PCP - General Nurse Practitioner 10/16/21
--- OUTSIDE RECORDS SUMMARY | 2025-05-29 09:28 | XMS_ITS | Encounter Summary ---
Author Organization [employer] Address [address] [place] [address] Care Team Providers Care Art Objects Supervisor Name Role Phone Nuvia Crook Primary Care Provider [phone] Renard Ritchie MD Unavailable Eliecer Bob MD Unavailable Albert Galaviz MD Unavailable [phone] Encounter Details Date Type Department Care Team (Late st Contact Info) Description 12/30/2023 Telephone [facility] [address] [place] [address] Nuvia Crook ANP [address] [place], [place] [phone] Social History Tobacco Use Types Packs/Day Years [...] Team (Late st Contact Info) Description 07/01/2025 9:30 AM EDT Clinical Support [facility] [address] [place] [address] Lynn Armijo, NIMISHA [address] [place] [address] 07/27/2025 11:00 AM EDT Office Visit [facility] [address] [place] [address] Nuvia Crook ANP [address] [place] [address] documented as of this encounter Visit Diagnoses Not on filedocumented in this encounter Additional Health Concerns Assessment Noted Time PHQ-9 Depression Total Score: 0 07/02/20 23 9:05 AM EDT documented as of this encounter Care Teams Art Objects Supervisor Relationship Specialty Start Date End Date Nuvia Crook ANP [address] [place] [address] PCP - General Family Medicine 06/21/20 Renard Ritchie MD [address] [facility] [address] [place] [address] Nephrology 10/13/24 Eliecer Bob MD [address] [place] [address] Endocrinology 10/13/24 Albert Galaviz MD [address] [place] [address] Cardiology 10/13/24 documented as of this encounter
[2025-05-29 09:49] LABS: MANUAL DIFF FLAG NO
[2025-05-29 09:52] LABS: Hematocrit 28.7 % (42.0-52.0); Hemoglobin 10.3 g/dl (14.0-18.0); Imm Gran Abs Auto 0.03 X10*3/uL (0.00-0.03); Imm Gran Pct Auto 0.5 % (0.0-0.4); Lymphocytes Absolute Auto 1.0 X10*3/uL (1.2-4.9); Mean Corpuscular HGB Conc 35.9 g/dl (31.0-36.0); Mean Corpuscular Hemoglobin 33.7 pg (27.0-33.0); Mean Corpuscular Volume 93.8 fL (80.0-98.0); NRBC Abs Auto 0.000 X10*3/uL (0.0-0.012); NRBC Pct Auto 0.0 /100WBC (0.0-0.2); Platelet Count 106 X10*3/uL (160-400); Red Blood Count 3.06 X10*6/uL (4.60-5.80); White Blood Count 6.3 X10*3/uL (4.8-10.8)
[2025-05-29 09:54] LABS: Venous Blood Gas Refer to POC result
[2025-05-29 09:54] LABS: VBG HCO3 34 mmol/L (22-26); VBG O2 % Saturation 95.0 %
[2025-05-29 10:14] LABS: Anion Gap 20 (12-20); Blood Urea Nitrogen 43 mg/dL (9-16); Calcium 8.4 mg/dL (8.4-10.2); Carbon Dioxide 28 mmol/L (22-29); Chloride 96 mmol/L (96-108); Creatinine Clr Calc Pharmacy 9.8; Estimated Glomerular Filt Rate 6; Magnesium 1.7 mg/dL (1.6-2.6); Potassium 4.9 mmol/L (3.3-5.1); Sodium 139 mmol/L (135-145)
--- NOTE | 2025-05-29 11:43 | PC.NURSE ---
Bedside tech alerted RN and MD that pt left and was on the phone complaining that the results were taking too long. On recent assessment, pt was aaox4, ambulated w/steady gait with cane. Pt eloped out of department.
[2025-05-29 11:59] VITALS: BP 148/65; PULSE 76; RESP 17; TEMP 36.2; O2SAT 95
== END 2025-05-29 12:00 | disposition left against medical advice (07) ==
PROVIDERS: Emergency Provider Emergency Medicine Emergency Medical Services; PCP Nurse Practitioner Primary Care
DX: M25.561 Pain in right knee (principal); N18.6 End stage renal disease; E11.40 Type 2 diabetes mellitus with diabetic neuropathy, unspecified; E11.22 Type 2 diabetes mellitus with diabetic chronic kidney disease; I12.0 Hypertensive chronic kidney disease with stage 5 chronic kidney disease or end stage renal disease; D64.9 Anemia, unspecified; F32.A Depression, unspecified; F41.9 Anxiety disorder, unspecified; J44.9 Chronic obstructive pulmonary disease, unspecified; G47.30 Sleep apnea, unspecified; E78.00 Pure hypercholesterolemia, unspecified; I50.9 Heart failure, unspecified; Z99.2 Dependence on renal dialysis; Z79.82 Long term (current) use of aspirin; Z79.4 Long term (current) use of insulin
CPT/HCPCS: 36415; 73564; 80048; 82803; 83735; 85025; 99283; 99284

== ENCOUNTER 2025-06-14 10:43 | Emergency (ER) | payer OTHER, SELFPAY ==
--- NOTE | ~2025-06-14 | XR_ITS ---
EXAMINATION: XR KNEE, RIGHT CLINICAL INFORMATION: right knee COMPARISON: May 29, 2025 TECHNIQUE: AP, oblique and cross lateral view of the right knee. FINDINGS: No acute cortical disruption or gross malalignment. Mild joint space narrowing involving mostly the medial compartment. No suprapatellar bursa joint effusion. Small exostosis at the quadriceps tendon insertion and the patellar tendon insertion. Vascular calcifications. There is stent in the distal thigh. XR/XR knee RT 4V IMPRESSION: No acute fracture or dislocation. Medial compartment osteoarthritis/osteoarthrosis. Atherosclerosis disease, peripheral. Status post stenting, likely right femoral artery. Electronically signed by: Moses Donovan MD 06/14/2025 12:54 PM EDT
[2025-06-14 11:04] VITALS: BP 116/74; PULSE 75; O2SAT 98
[2025-06-14 11:13] VITALS: BP 120/58; PULSE 68; RESP 16; TEMP 36.6; O2SAT 95; BMI 29.8
--- NOTE | 2025-06-14 11:13 | ED.GENADULT ---
HPI - General Adult General Chief complaint: Extremity Injury, Lower Stated complaint: R KNEE PAIN X1W, FROM DIALYSIS/FINISHED PER EMS Time Seen by Provider: 06/14/25 11:03 Source: patient Mode of arrival: ambulatory Limitations: no limitations History of Present Illness ED Provider: Dr. Brown HPI narrative: This is a 64-year-old male history of ESRD, CHF, peripheral vascular disease, hypertension, diabetes, hypertension, hyperlipidemia presented hospital today for onset of right knee pain. Patient stated that this started earlier this week. However the pain has been worsening. It is difficult for him to walk. Describes his pain as a medial right knee pain. He does have slight swelling on the medial aspect of the right knee. He denies any recent trauma. Denies any laceration of the right knee. Related Data Home Medications ?Medication ?Instructions ?Recorded ?Confirmed albuterol sulfate 90 mcg/actuation 2 puff PO Q4H PRN Shortness Of 12/01/21 04/06/25 aerosol inhaler (Ventolin HFA) Breath aspirin 81 mg tablet,delayed 1 tab PO DAILY 12/01/21 04/06/25 release cholecalciferol (vitamin D3) 25 2 tab PO DAILY 12/01/21 04/06/25 mcg (1,000 unit) tablet gabapentin 600 mg tablet 300 mg PO BEDTIME 12/01/21 04/06/25 oxcarbazepine 300 mg tablet 1 tab PO BID 12/01/21 04/06/25 perphenazine 2 mg tablet 1 tab PO BID 12/01/21 04/06/25 sertraline 100 mg tablet 2 tab PO DAILY 12/01/21 04/06/25 tramadol 50 mg tablet 2 tab PO Q8H PRN Pain 12/01/21 04/06/25 zolpidem 10 mg tablet 1 tab PO BEDTIME PRN Insomnia 12/01/21 04/06/25 blood-glucose meter (FreeStyle 06/20/22 04/06/25 Lite Meter kit) isosorbide mononitrate 60 mg 120 mg PO QAM 04/16/23 04/06/25 tablet,extended release 24 hr fluticasone furoate 200 1 inh inhalation DAILY 11/16/24 04/06/25 mcg/actuation blister powder for inhalation (Arnuity Ellipta) insulin aspart U-100 100 unit/mL See Rx Instructions subcut .COMPLEX 04/06/25 04/06/25 (3 mL) subcutaneous pen (Novolog FlexPen U-100 Insulin aspart) Previous Rx's ?Medication ?Instructions ?Recorded doxazosin 2 mg tablet 2 mg PO DAILY #90 tabs 04/06/22 torsemide 20 mg tablet 80 mg (4 x 20 mg) PO BID #720 tabs 10/05/22 carvedilol 25 mg tablet 25 mg PO BID 90 days #180 tabs 10/31/22 lancets 28 gauge (FreeStyle #100 ea 10/31/22 Lancets) nifedipine 30 mg tablet,extended 120 mg (4 x 30 mg) PO BEDTIME 90 12/31/22 release days #360 tabs omeprazole 20 mg capsule,delayed 20 mg PO BID 30 days #60 caps 04/16/23 release lancets 33 gauge (TRUEplus Lancets) #100 ea 07/15/23 pen needle, diabetic 32 gauge x #150 ea 07/25/23/ (BD Ultra-Fine Silvia Pen Needle) tadalafil 5 mg tablet (Cialis) 5 mg PO DAILY 90 days #90 tabs 10/15/23 diclofenac sodium 1 % topical gel 4 g topical QID #100 grams 05/24/24 (Voltaren Arthritis Pain) oxycodone 10 mg tablet 10 mg PO Q6H PRN pain #20 tabs 11/18/24 icosapent ethyl 1 gram capsule 2 g (2 x 1 gram) PO BID #120 caps 11/26/24 (Vascepa) blood-glucose sensor (FreeStyle #2 ea 02/23/25 Abhishek 3 Plus Sensor device) blood-glucose,hr receptionist,cont #1 ea 02/23/25 (FreeStyle Abhishek 3 Lovejoy) blood sugar diagnostic (FreeStyle #200 ea 03/23/25 Lite Strips) atorvastatin 80 mg tablet 80 mg PO BEDTIME #30 tabs 06/04/25 acetaminophen 325 mg tablet 650 mg (2 x 325 mg) PO Q8H PRN 06/14/25 (Tylenol) pain #30 tabs prednisone 20 mg tablet 20 mg PO DAILY 7 days #7 tabs 06/14/25 Allergies Allergy/AdvReac Type Severity Reaction Status Date / Time No Known Allergies Allergy Verified 06/14/25 11:14 Review of Systems Review of Systems: Review of system as mentioned in HPI. All other review of system are negative. [facility] Past Medical History [facility] Narrative: As mentioned in HPI Medical History Arthritis of knee, right Knee pain, right Insulin long-term use Diabetic neuropathy Type 2 diabetes, controlled, with renal manifestation ESRD (end stage renal disease) on dialysis CHF exacerbation Diabetes type 2, uncontrolled Anemia HTN (hypertension) Heart failure with preserved ejection fraction CKD (chronic kidney disease) stage 4, GFR 15-29 ml/min Congestive heart failure Type 2 diabetes mellitus with unspecified complications Diastolic dysfunction Essential hypertension Hyperglycemia Hypertensive crisis Pancreatitis Chronic kidney disease, stage 4 (severe) Erectile dysfunction Depression with anxiety Proteinuria Diverticulitis Type 2 diabetes mellitus with hyperglycemia, with long-term current use of insulin Type 2 diabetes mellitus with polyneuropathy Type 2 diabetes mellitus with chronic kidney disease Hypertension Hypertriglyceridemia Diabetes mellitus with hyperglycemia, with long-term current use of insulin History of alcohol abuse Abnormal biopsy of kidney Peptic ulcer Hx of pancreatitis Anxiety Depression COPD (chronic obstructive pulmonary disease) History of headache Sleep apnea Asthma On beta doron at home Elevated cholesterol CHF (congestive heart failure) HTN (hypertension) Surgical History History of esophagogastroduodenoscopy (EGD) History of surgery Hx of right inguinal hernia repair Hx of colonoscopy Family History Family History Mother Diabetes Social History Social History Household Members: None Housing: Apartment Are you a primary healthcare administration intern to a significant other at home: No Do you presently have visiting nurse or other home services: Yes (REUSE TECHNICIAN) Alcohol intake: never Comment: pt sleeping Patient Tobacco Use Status: Never used Tobacco Tobacco use type: Cigarette Years Smoked: 30 Second Hand Smoke Exposure: Yes Advance Directives: No Advance Directives Information Provided: Yes service: No Current occupational status: retired Physical Exam ED Exam Exam: General: Pleasant, no distress, interacting appropriately Head: Normacephalic, atraumatic ENT: oral mucosa moist, neck supple, no tracheal deviation Extremities: DP pulse of right lower extremity intact, sensation and motor intact. pain over medial knee with some swelling on exam. No signs of erythema. Pain on ROM. Full passive ROM on exam. Neurological: Awake and alert, no facial droop noted Skin: Warm and dry Psychiatric: Appropriate mood and thoughts Vital Signs: Vital Signs - 24 hr 06/14/25 11:13 Temperature 97.8 F Pulse Rate 68 Respiratory Rate 16 Blood Pressure 120/58 L Pulse Oximetry 95 Oxygen Delivery Method Room Air BMI result Body Mass Index 29.8 Medications Administered Discontinued Medications Generic Name Dose Route Start Last Admin Trade Name Ele PRN Reason Stop Dose Admin Acetaminophen 650 mg 06/14/25 11:49 06/14/25 12:07 Acetaminophen 325 Mg Tablet PO 06/14/25 11:50 650 mg ONCE ONE Administration Lidocaine 1 patch 06/14/25 11:49 06/14/25 12:07 Lidocaine 4 % Patch Adh..Patch TRANSDERMA 06/14/25 11:50 1 patch ONCE ONE Administration Protocol Prednisone 40 mg 06/14/25 11:49 06/14/25 12:06 Prednisone 20 Mg Tablet PO 06/14/25 11:50 40 mg ONCE ONE Administration Medical Decision Making Medical Decision Making [facility] Narrative: 64-year-old male history of ESRD, hypertension hyperlipidemia, diabetes, peripheral vascular disease presented hospital today for right knee pain. I suspect patient likely has answering bursitis on exam. He has point tenderness is specific to the medial aspect of his right knee. No concern of septic arthritis on exam. No sign of significant knee effusion. No sign of erythema. Patient does not appear to be toxic on exam. Given the swelling on the right medial knee. We will obtain a x-ray. Low suspicion for a traumatic fracture. He denies any symptoms of trauma as well. We will plan to give patient a dose of prednisone here. Tylenol and lidocaine patch will be provided as well. Patient had x-ray is negative for acute fracture it does show signs of degenerative changes.. Patient states his pain did improve after prednisone and Tylenol. A lidocaine patch. We will plan to discharge patient with a course of prednisone to take for his bursitis. Based on clinical and physical findings. Patient had the anserine bursitis. Differential Diagnosis Anserine bursitis, knee arthritis, knee effusion, gout, Septic Arthritis Lab Data Labs: Lab Results 06/14/25 Range/Units 11:07 POC Glucose 176 H (60-115) mg/dL Discharge Plan Discharge Clinical Impression: Anserine bursitis Patient Disposition: Home, Self-Care Instructions: Knee Bursitis (ED) Additional Instructions: Follow up with your primary care doctor in a week. I suspect you have bursitis over your right knee. Take the prednisone as instructed. You may take Tylenol 650 mg every 8 hours. Prescriptions: New prednisone 20 mg tablet 20 mg PO DAILY 7 Days Qty: 7 0RF acetaminophen [Tylenol] 325 mg tablet 650 mg PO Q8H PRN (Reason: pain) Qty: 30 0RF No Action doxazosin 2 mg tablet 2 mg PO DAILY Qty: 90 1RF torsemide 20 mg tablet 80 mg PO BID Qty: 720 1RF Rx Instructions: OVERDUE FOR FOLLOW UP APPT. PLEASE CALL TO SCHEDULE APPT FOR 2022 @ [phone] TO CONTINUE RECVING REFILLS. carvedilol 25 mg tablet 25 mg PO BID 90 Days Qty: 180 2RF Rx Instructions: OVERDUE FOR APPT. PLEASE CALL [phone] TO SCHEDULE FOLLOW UP SO WE CAN CONTINUE REFILLING THIS PRESCRIPTION. (DME) lancets [FreeStyle Lancets] 28 gauge misc See Rx Instructions .Route Qty: 100 6RF Rx Instructions: As directed nifedipine 30 mg tablet extended release 120 mg PO BEDTIME 90 Days Qty: 360 0RF Rx Instructions: Must make cardiology appt for refills (DME) lancets [TRUEplus Lancets] 33 gauge misc See Rx Instructions .ROUTE .COMPLEX Qty: 100 6RF Dose Instruction: TEST BLOOD SUGAR FOUR TIMES DAILY DIRECTED Rx Instructions: TEST BLOOD SUGAR FOUR TIMES DAILY DIRECTED (DME) pen needle, diabetic [BD Ultra-Fine Silvia Pen Needle] 32 gauge x 5/32 needle See Rx Instructions .ROUTE .MEDSUPPLY Qty: 150 11RF Rx Instructions: As directed five times a day icosapent ethyl [Vascepa] 1 gram capsule 2 g PO BID Qty: 120 6RF atorvastatin 80 mg tablet 80 mg PO BEDTIME Qty: 30 5RF gabapentin 600 mg tablet 300 mg PO BEDTIME perphenazine 2 mg tablet 1 tab PO BID sertraline 100 mg tablet 2 tab PO DAILY oxcarbazepine 300 mg tablet 1 tab PO BID aspirin 81 mg tablet,delayed release (DR/EC) 1 tab PO DAILY tramadol 50 mg tablet 2 tab PO Q8H PRN (Reason: Pain) zolpidem 10 mg tablet 1 tab PO BEDTIME PRN (Reason: Insomnia) cholecalciferol (vitamin D3) 25 mcg (1,000 unit) tablet 2 tab PO DAILY albuterol sulfate [Ventolin HFA] 90 mcg/actuation HFA aerosol inhaler 2 puff PO Q4H PRN (Reason: Shortness Of Breath) diclofenac sodium [Voltaren Arthritis Pain] 1 % gel 4 g topical QID Qty: 100 0RF Rx Instructions: apply to single affected area Arnuity Ellipta 200 mcg/actuation blister with device 1 inh INHALATION DAILY oxycodone 10 mg tablet 10 mg PO Q6H PRN (Reason: pain) Qty: 20 0RF Rx Instructions: Partial Fill upon patient request. (DME) blood-glucose meter [FreeStyle Lite Meter] Kit See Rx Instructions .Route Rx Instructions: As directed tadalafil [Cialis] 5 mg tablet 5 mg PO DAILY 90 Days Qty: 90 1RF Rx Instructions: [id number] [facility] [id number] Member [id number] isosorbide mononitrate 60 mg tablet extended release 24 hr 120 mg PO QAM Rx Instructions: Current regimen omeprazole 20 mg capsule,delayed release(DR/EC) 20 mg PO BID 30 Days Qty: 60 0RF (DME) FreeStyle Abhishek 3 Plus Sensor Device See Rx Instructions .ROUTE .MEDSUPPLY Qty: 2 11RF Rx Instructions: Apply 1 new sensor every 15 days as directed to monitor blood glucose continuously. (DME) FreeStyle Abhishek 3 Lovejoy Misc See Rx Instructions .ROUTE .MEDSUPPLY Qty: 1 0RF Rx Instructions: Use daily to monitor blood glucose levels continuously. insulin aspart U-100 [Novolog FlexPen U-100 Insulin] 100 unit/mL (3 mL) insulin pen See Rx Instructions subcut .COMPLEX Rx Instructions: 5 units before breakfast on non-dialysis days, 12 units before lunch and 3 units before dinner (DME) FreeStyle Lite Strips Strip See Rx Instructions .Route Qty: 200 11RF Rx Instructions: As directed 4x DAILY Print Language: Hungarian
[2025-06-14 11:20] LABS: Glucose, Whole Blood 176 mg/dL (60-115)
[2025-06-14] MEDS: Lidocaine 4 % Patch ADH..PATCH 1 PATCH TRANSDERMA (12:07)
--- OUTSIDE RECORDS SUMMARY | 2025-06-14 12:55 | XMS_ITS | Patient Health Record ---
Author Organization [facility] Address [address] [place] [address] Care Team Providers Care Assistant Dean Of Students Name Role Phone Kady WAITE, Gonzalez Primary Care Provider Eliecer Langley Unavailable [phone] Reason For Referral No Information Medications Medication [...] (272.4) Active confirmed Low Problem Acute pancreatitis ([id number]) Acute pancreatitis (577.0) Active confirmed Plan Of Treatment No Information Insurance Providers Payer Name Payer Address Payer Phone Subscriber Number Group Number Insured Name Patient Relationship to Insured Coverage Start Date Coverage End Date [facility] [employer] [facility] [address] [address] [place], [place] [id number] [phone] [id number] JELANI JACINTO Self - patient is the insured Medical (General) History Medical History History ICD Code NIDDM hypertension asthma He has had [address] Abrams and Dr. Castillo Denies CA and CVA Proteinuria--sees Dr. Vieira Pancreatitis-acute--due to [...]
--- OUTSIDE RECORDS SUMMARY | 2025-06-14 12:55 | XMS_ITS | Encounter Summary ---
Author Organization [employer] Address [address] [place] [address] Care Team Providers Care Watershed Program Manager Name Role Phone Nuvia Crook Primary Care Provider Renard Ritchie MD Unavailable Eliecer Bob MD Unavailable Albert Galaviz MD Unavailable [phone] Encounter Details Date Type Department Care Team (Late st Contact Info) Description 12/30/2023 Telephone [facility] [address] [place] [address] Nuvia Crook ANP [address] [place], [place] [id number] Social History Tobacco Use Types Packs/Day Years [...] your housing situation today? I have blue abdullaih 08/12/[address] you li [...] Description 07/01/2025 9:30 AM EDT Clinical Support [facility] [address] [place] [address] Lynn Armijo, NIMISHA [address] [place] [address] 07/27/2025 11:00 AM EDT Office Visit [facility] [address] [place] [address] Nuvia Crook ANP [address] [place] [address] documented as of this encounter Visit Diagnoses Not on filedocumented in this encounter Additional Health Concerns Assessment Noted Time PHQ-9 Depression Total Score: 0 07/02/20 23 9:05 AM EDT documented as of this encounter Care Teams Watershed Program Manager Relationship Specialty Start Date End Date Nuvia Crook ANP [address] [place] [address] PCP - General Family Medicine 06/21/20 Renard Ritchie MD [address] [facility] [address] [place] [address] Nephrology 10/13/24 Eliecer Bob MD [address] [place] [id number] Endocrinology 10/13/24 Albert Galaviz MD [address] [place] [address] Cardiology 10/13/24 documented as of this encounter
--- OUTSIDE RECORDS SUMMARY | 2025-06-14 12:55 | XMS_ITS | Clinical Summary ---
Author Organization [facility] Address [address] [place] [address] [place] [address] Phone Care Team Providers Care Distribution Center Assistant Name Role Phone Gonzalez Hillman NP Primary Care Provider [phone] Tash Tim MD Unavailable [phone] Social History Tobacco Use Types Packs/Day [...] topic Medical Devices Not on file Insurance [facility] ONE CARE MEDICARE REPLACEMENT apt [address] [place] [address] CARE MEDICARE REPLACEMENT apt [address] [place] [address] MEDICARE REPLACEMENT apt [address] [place], [place] [id number] [facility] MEDICARE REPLACEMENT MEDICARE REPLACEMENT apt [address] [place] [address] MEDICARE REPLACEMENT apt [address] [place] [address] MEDICARE REPLACEMENT [facility] MEDICARE REPLACEMENT [facility] MEDICARE REPLACEMENT Care Teams Distribution Center Assistant Relationship Specialty Start Date End Date Gonzalez Hillman NP [address] [place] [address] PCP - General Family Medicine 09/28/19 Tash Tim MD [address] [place] [phone] [email or web address] Referring Physician Hematology and Oncology 09/28/19 Additional Source Comments The information contained in this document represents components of the legal health record. It is not the complete legal health record.[facility]
--- OUTSIDE RECORDS SUMMARY | 2025-06-14 12:56 | XMS_ITS | Clinical Summary ---
Author Organization [facility] Address [address] [place] [address] Phone Care Team Providers Care Cheese Wrapper Name Role Phone Ambreen Nuvia Wiley NP Primary Care Provider [phone] Allergies No known active allergies Medications aspirin [...] Essential hypertension 12/29/202005/29 Hypertensive heart disease w [facility] congestive heart failure 12/29/2020 05/29/2021 Morbid obesity 12/29/2020 05/29/2021 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/29/2020 05/29/2021 Sleep apnea 12/29/2020 05/29/2021 Type 2 diabetes mellitus 12/29/202011/2020 Encounters Date Type Department Care Team Description 05/28/2025 Treatment [facility] [address] [place] [address] Renard Ritchie MD End stage renal disease; Dependence on renal dialysis 05/28/2025 Treatment [facility] [place] [address] [facility] [address] [place] [address] Renard Ritchie MD End stage renal disease; Dependence on renal dialysis 05/24/2025 Treatment [facility] [place] [address] [facility] [address] [place] [phone] Renard Ritchie MD End stage renal disease; Dependence on renal dialysis 05/12/2025 Treatment [facility] [address] [place] [phone] Renard Ritchie MD End stage renal disease; Dependence on renal dialysis 05/03/2025 Treatment [facility] [place] [address] [facility] [address] [place] [phone] Renard Ritchie MD End stage renal disease; Dependence on renal dialysis 04/28/2025 Treatment [facility] [address] [place] [phone] Renard Ritchie MD End stage renal disease; Dependence on renal dialysis 04/19/2025 Treatment [facility] [address] [phone] Renard Ritchie MD End stage renal disease; Dependence on renal dialysis 04/14/2025 Orders Only [facility] [address] [phone] Renard Ritchie MD 04/12/2025 Treatment [facility] [address] [phone] Renard Ritchie MD End stage renal disease; Dependence on renal dialysis 04/05/2025 Treatment [facility] [address] [phone] Renard Ritchie MD End stage renal disease; Dependence on renal dialysis 03/29/2025 Treatment [facility] [address] [phone] Renard Ritchie MD End stage renal disease; Dependence on renal dialysis 03/24/2025 Treatment [facility] [address] [phone] Renard Ritchie MD End stage renal disease; Dependence on renal dialysis 03/19/2025 Treatment [facility] [address] [phone] Renard Ritchie MD End stage renal disease; [...] Foot Exam 11/28/2020 Influenza Vaccine (#1) 2025 4, 08/02/2023, 07/24/2022, Additional history exists Diabetes: Hemoglobin A1C 07/29/2025 025, 01/27/2025, 09/10/2024, Additional history exists Pneumococcal Vaccine: 50+ Years Completed 02/04/2024, 04/07/2019, 03/24/2010 Pneumococcal Vaccine: Peds ( 0 to 5 Years) and At-Risk Patients (6 to 49 Years) Discontinued 02/04/2024, 04/07/2019, 03/24/2010 Procedures Procedure Name Priority Date/Time Associated Diagnosis Comments LIH (HC) Routine 06/11/2025 3:00 AM EDT CALCIUM, ADJUSTED W ALBUMIN Routine 06/11/2025 3:00 AM EDT HEMOGLOBIN Routine 06/09/2025 3:00 AM EDT FERRITIN Routine 06/02/2025 3:00 AM EDT TRANSFERRIN SATURATION Routine 3:00 AM EDT MAGNESIUM Routine 06/02/2025 3:00 AM EDT ELECTROLYTE PANEL Routine 06/02/2025 3:0 0 AM EDT LIH (HC) Routine 06/02/2025 3:00 AM EDT PROTEIN, TOTAL, SERUM Routine 06/02/2025 3:00 AM EDT CREATININE, SERUM Routine 06/02/2025 3:0 0 AM EDT BUN/CREATININE RATIO Routine 06/02/2025 3:00 AM EDT LACTATE DEHYDROGENASE Routine 06/02/2025 3:00 AM EDT GLUCOSE, RANDOM Routine 06/02/2025 3:00 AM EDT ALT Routine 06/02/2025 3:00 AM EDT AST Routine 06/02/2025 3:00 AM EDT BILIRUBIN, TOTAL Routine 06/02/2025 3:00 AM EDT CALCIUM PHOSPHORUS PRODUCT, ADJUSTED (HC) Routine 06/02/2025 3:00 AM EDT ALKALINE PHOSPHATASE Routine 06/02/2025 3:00 AM EDT CBC AND DIFFERENTIAL Routine 06/02/2025 3:00 AM EDT KT/V NATURAL LOG, URR (HC) Routine 06/02/2025 3:00 AM EDT HEMOGLOBIN Routine 05/26/2025 3:00 AM EDT CONFIRMATION [...] EDT HEMOGLOBIN Routine 03/17/2025 3:00 AM EDT from Last 3 Months Results * LIH (06/11/2025 3:00 AM EDT) Only the most recent of6 resultswithin the time period is included. Lipemia Normal Normal [facility] Icterus Normal Normal [facility] Hemolysis Normal Normal [facility] 06/11/2025 3:00 AM EDT 06/12/2025 2:27 PM EDT us Renard Ritchie MD LAB [id number] SOLICITED RESULTS Final Result Performing Organization Address [facility] de Phone Number [facility] [address] [place] [address] * Calcium, Adjusted w Albumin (06/11/2025 3:00 AM EDT) Calcium 8.7 8.6 - 10.3 mg/dL [facility] Albumin 4.9 3.6 - 5.4 g/dL [facility] Calcium, Adjusted Total 8.7 8.6 - 10.3 mg/dL [facility] 06/11/2025 3:00 AM EDT 06/12/2025 2:27 PM EDT us Renard Ritchie MD LAB BLOOD ORDERABLES Final Re sult Performing Organization Address [facility] de Phone Number [facility] [address] [place] [address] * (ABNORMAL) Hemoglobin (06/09/2025 3:00 AM EDT) Only the most recent of7 resultswithin the time period is included. Pathologist [facility] Hgb 10.9(L) 13.7 - 17.5 g/dL [facility] Hemoglobin x 3 32.7(L) 41.1 - 52.5 g/dL [facility] 06/09/2025 3:00 AM EDT 06/10/2025 2:21 PM EDT us Renard Ritchie MD LAB BLOOD ORDERABLES Final Re sult Performing Organization Address [facility] de Phone Number [facility] [address] [place] [address] * (ABNORMAL) Kt/V Natural Log, URR (06/02/2025 3:00 AM EDT) Only the most recent of4 resultswithin the time period is included. Pathologist [facility] Treatment Time 236 min [facility] Pre-Weight, lb 99.5 kg [facility] Post-Weight, lb 95.8 kg [facility] Ultrafiltration Rate 10 <=13 mL/kg/hr [facility] Comment: Recommend achieving Ultrafiltration Rate (UFR) <=10 mL/kg/hr References: Kei BOOKER et al. Kidney Int. 2010; 79(2):250-257 BUN 64(H) 7 - 25 mg/dL [facility] BUN Post Dialysis 20 7 - 25 mg/dL [facility] UREA REDUCTION RATIO (%) 69 >=65 % [facility] Kt/V Natural Log 1.38 >=1.2 [facility] 06/02/2025 3:00 AM EDT 06/03/2025 12:20 PM EDT Renard Ritchie MD LAB [id number] SOLICITED RESULTS Final Result Performing Organization Address [facility] de Phone Number [facility] [address] [place] [address] * (ABNORMAL) Calcium Phosphorus Product, Adjusted (06/02/2025 3:00 AM EDT) Only the most recent of3 resultswithin the time period is included. Albumin 4.4 3.6 - 5.4 g/dL [facility] Calcium 7.8(L) 8.6 - 10.3 mg/dL [facility] Phosphorus, Serum 5.8(H) 2.5 - 5.0 mg/dL [facility] Ca*PO4 45.2 <55.0 mg2/dL2 [facility] Calcium, Adjusted Total 7.8(L) 8.6 - 10.3 mg/dL [facility] CA*PO4 CORRCTD 45.2 <55.0 mg2/dL2 [facility] 06/02/2025 3:00 AM EDT 06/03/2025 1:06 PM EDT Renard Ritchie MD LAB [id number] SOLICITED RESULTS Final Result Performing Organization Address [facility] de Phone Number [facility] [address] [place] [address] * BUN/CREATININE RATIO (06/02/2025 3:00 AM EDT) Only the most recent of3 resultswithin the time period is included. [facility] BUN/Creatinine Ratio 6.2 <=23.0 [facility] 06/02/2025 3:00 AM EDT 06/03/2025 1:06 PM EDT Renard Ritchie MD LAB [id number] SOLICITED RESULTS Final Result Performing Organization Address [facility] Co de Phone Number [facility] [address] [place] [address] * (ABNORMAL) TSAT (06/02/2025 3:00 AM EDT) Only the most recent of3 resultswithin the time period is included. [facility] Iron 76 65 - 175 ug/dL [facility] Transferrin 192(L) 215 - 365 mg/dL [facility] TIBC 269 211 - 406 ug/dL [facility] Iron Saturation (TSat) 28 22 - 52 % [facility] 06/02/2025 3:00 AM EDT 06/03/2025 1:06 PM EDT Renard Ritchie MD LAB BLOOD ORDERABLES Final Re sult Performing Organization Address [facility] de Phone Number [facility] [address] [place] [address] * (ABNORMAL) CBC and Differential (06/02/2025 3:00 AM EDT) Only the most recent of3 resultswithin the time period is included. [facility] DIFFERENTIAL MANUAL, 2 Not Indicated [facility] White Blood Cells 5.3 4.2 - 9.1 K/uL [facility] RBC 2.93(L) 4.63 - 6.08 M/uL [facility] Hgb 10.0(L) 13.7 - 17.5 g/dL [facility] Hemoglobin x 3 30.0(L) 41.1 - 52.5 g/dL [facility] Hematocrit 28.5(L) 40.1 - 51.0 % [facility] MCV 97.3(H) 79.0 - 92.2 fL [facility] MCH 34.1(H) 25.7 - 32.2 pg [facility] MCHC 35.1 32.3 - 36.5 g/dL [facility] RDW 14.5(H) 11.6 - 14.4 % [facility] Platelets 120(L) 163 - 337 K/uL [facility] Neutrophils Relative 66.6 34.0 - 67.9 % [facility] Lymphocytes Relative 23.4 21.8 - 53.1 % [facility] Monocytes 5.8 5.3 - 12.2 % [facility] Eosinophils Relative 3.0 0.8 - 7.0 % [facility] Basophils Relative 0.6 0.2 - 1.2 % [facility] Immature Granulocytes 0.6 0.0 - 1.0 % [facility] 06/02/2025 3:00 AM EDT 06/03/2025 12:33 PM EDT Renard Ritchie MD LAB BLOOD ORDERABLES Final Re sult Performing Organization Address [facility] Co de Phone Number [facility] [address] [place] [address] * ALT (06/02/2025 3:00 AM EDT) Only the most recent of3 resultswithin the time period is included. ALT (SGPT) 12 10 - 49 U/L [facility] 06/02/2025 3:00 AM EDT 06/03/2025 1:06 PM EDT Renard Ritchie MD LAB BLOOD ORDERABLES Final Re sult Performing Organization Address [facility] Co de Phone Number [facility] [address] [place] [address] * AST (06/02/2025 3:00 AM EDT) Only the most recent of3 resultswithin the time period is included. AST (SGOT) 18 <34 U/L [facility] 06/02/2025 3:00 AM EDT 06/03/2025 1:06 PM EDT Renard Ritchie MD LAB BLOOD ORDERABLES Final Re sult Performing Organization Address [facility] Co de Phone Number [facility] [address] [place] [address] * Protein, total (06/02/2025 3:00 AM EDT) Only the most recent of3 resultswithin the time period is included. Total Protein 7.4 6.4 - 8.9 g/dL [facility] 06/02/2025 3:00 AM EDT 06/03/2025 1:06 PM EDT Renard Ritchie MD LAB BLOOD ORDERABLES Final Re sult Performing Organization Address [facility] de Phone Number [facility] [address] [place] [address] * Alkaline phosphatase (06/02/2025 3:00 AM EDT) Only the most recent of3 resultswithin the time period is included. Alkaline Phosphatase 83 46 - 116 U/L [facility] 06/02/2025 3:00 AM EDT 06/03/2025 1:06 PM EDT Renard Ritchie MD LAB BLOOD ORDERABLES Final Re sult Performing Organization Address [facility] de Phone Number [facility] [address] [place] [address] * Magnesium (06/02/2025 3:00 AM EDT) Only the most recent of3 resultswithin the time period is included. Magnesium 1.9 1.9 - 2.7 mg/dL [facility] 06/02/2025 3:00 AM EDT 06/03/2025 1:06 PM EDT Renard Ritchie MD LAB BLOOD ORDERABLES Final Re sult Performing Organization Address [facility] de Phone Number [facility] [address] [place] [address] * Lactate dehydrogenase (06/02/2025 3:00 AM EDT) Only the most recent of3 resultswithin the time period is included. LDH 221 120 - 246 U/L [facility] 06/02/2025 3:00 AM EDT 06/03/2025 1:06 PM EDT Renard Ritchie MD LAB BLOOD ORDERABLES Final Re sult Performing Organization Address [facility] Co de Phone Number [facility] [address] [place] [address] * (ABNORMAL) Glucose, random (06/02/2025 3:00 AM EDT) Only the most recent of3 resultswithin the time period is included. Glucose 146(H) 70 - 99 mg/dL [facility] Comment: ADA guidelines outline the following fasting glucose ranges: Normal: <100 Prediabetes: 100-125 Diabetes: >125 06/02/2025 3:00 AM EDT 06/03/2025 1:06 PM EDT us Renard Ritchie MD LAB BLOOD ORDERABLES Final Re sult Performing Organization Address [facility] de Phone Number [facility] [address] [place] [address] * (ABNORMAL) Ferritin (06/02/2025 3:00 AM EDT) Only the most recent of3 resultswithin the time period is included. Ferritin 1,286(H) 22 - 322 ng/mL [facility] 06/02/2025 3:00 AM EDT 06/03/2025 1:06 PM EDT us Renard Ritchie MD LAB BLOOD ORDERABLES Final Re sult Performing Organization Address [facility] de Phone Number [facility] [address] [place] [address] * (ABNORMAL) Creatinine, serum (06/02/2025 3:00 AM EDT) Only the most recent of3 resultswithin the time period is included. Creatinine 10.27(H) 0.70 - 1.30 mg/dL [facility] 06/02/2025 3:00 AM EDT 06/03/2025 1:06 PM EDT Renard Ritchie MD LAB BLOOD ORDERABLES Final Re sult Performing Organization Address [facility] de Phone Number [facility] [address] [place] [address] * (ABNORMAL) Bilirubin, total (06/02/2025 3:00 AM EDT) Only the most recent of3 resultswithin the time period is included. Total Bilirubin <0.2(L) 0.3 - 1.2 mg/dL [facility] 06/02/2025 3:00 AM EDT 06/03/2025 1:06 PM EDT Renard Ritchie MD LAB BLOOD ORDERABLES Final Re sult Performing Organization Address [facility] de Phone Number [facility] [address] [place] [address] * (ABNORMAL) Electrolyte panel (06/02/2025 3:00 AM EDT) Only the most recent of3 resultswithin the time period is included. Sodium 138 136 - 145 mEq/L [facility] Potassium 4.6 3.4 - 5.0 mEq/L [facility] Chloride 96(L) 98 - 107 mEq/L [facility] Bicarbonate (CO2) 26 21 - 31 mEq/L [facility] Anion Gap 16(H) 3 - 14 mEq/L [facility] 06/02/2025 3:00 AM EDT 06/03/2025 1:06 PM EDT Renard Ritchie MD LAB BLOOD ORDERABLES Final Re sult Performing Organization Address [facility] Co de Phone Number [facility] [address] [place] [address] * Confirmation Test HCV (05/21/2025 3:00 AM EDT) Pathologist [facility] Hep C Ab Confirmation Not needed [facility] 05/21/2025 3:00 AM EDT 05/22/2025 1:12 PM EDT Renard Ritchie MD LAB BLOOD ORDERABLES Final Re sult Performing Organization Address [facility] de Phone Number [facility] [address] [place] [address] * HEPATITIS C ABS W/REFLEX RNA DETECTR (05/21/2025 3:00 AM EDT) Pathologist [facility] Hep C Virus Ab Non-Reacti ve Non-Reacti ve [facility] 05/21/2025 3:00 AM EDT 05/22/2025 1:18 PM EDT Renard Ritchie MD LAB [id number] SOLICITED RESULTS Final Result Performing Organization Address [facility] de Phone Number [facility] [address] [place] [address] * Phosphorus (05/19/2025 3:00 AM EDT) Pathologist [facility] Phosphorus, Serum 3.9 2.5 - 5.0 mg/dL [facility] 05/19/2025 3:00 AM EDT 05/21/2025 12:46 PM EDT Renard Ritchie MD LAB BLOOD ORDERABLES Final Re sult Performing Organization Address [facility] de Phone Number [facility] [address] [place] [address] * PTH, Intact (04/28/2025 3:00 AM EDT) Only the most recent of2 resultswithin the time period is included. Pathologist [facility] PTH, Intact 189 160 - 721 pg/mL [facility] Comment: Suggested (KDIGO) ESRD maintenance range is two to nine times the upper normal limit (80.1 pg/mL) for the laboratory. 04/28/2025 3:00 AM EDT 04/29/2025 12:13 PM EDT Renard Ritchie MD LAB BLOOD ORDERABLES Final Re sult Performing Organization Address [facility] de Phone Number [facility] [address] [place] [address] * Hemoglobin A1c (04/28/2025 3:00 AM EDT) Hemoglobin A1C 5.5 <5.7 % [facility] Comment: Methodology: Enzymatic Normal: <5.7% Prediabetes: 5.7-6.4% Diabetes: >6.4% Diabetic Glucose Control Evaluation: Therapeutic action suggested at >8.0% ADA recommends a glycemic goal of <7.0% 04/28/2025 3:00 AM EDT 04/29/2025 1:14 PM EDT Renard Ritchie MD LAB BLOOD ORDERABLES Final Re sult Performing Organization Address [facility] de Phone Number [facility] [address] [place] [address] * (ABNORMAL) Lipid panel (04/28/2025 3:00 AM [...] Final Re sult [facility] [address] [place] [address] from Last 3 Months Insurance CORNEL[employer] AGUILA [id number] ([id number]) CORNELIO AGUILA [phone] [place] [address] ([id number]) CORNELIO AGUILA [id number] Care Teams Cheese Wrapper Relationship Specialty Start Date End Date Nuvia Crook NP [address] [place] [id number] PCP - General Nurse Practitioner 10/16/21
[2025-06-14 13:37] VITALS: BP 120/58; PULSE 68; RESP 16; TEMP 36.6; O2SAT 95
== END 2025-06-14 13:38 | disposition home or self-care (01) ==
PROVIDERS: Emergency Provider Student in an Organized Health Care Education/Training Program; PCP Nurse Practitioner Primary Care
DX: M70.51 Other bursitis of knee, right knee (principal); M25.561 Pain in right knee; I10 Essential (primary) hypertension; E78.5 Hyperlipidemia, unspecified; I12.0 Hypertensive chronic kidney disease with stage 5 chronic kidney disease or end stage renal disease; E11.22 Type 2 diabetes mellitus with diabetic chronic kidney disease; N18.6 End stage renal disease
CPT/HCPCS: 73564; 82947; 99283; 99284

== ENCOUNTER → 2025-06-14 11:49 | Outpatient (BNV) | payer OTHER, SELFPAY | PROVIDERS: Emergency Provider Student in an Organized Health Care Education/Training Program; PCP Nurse Practitioner Primary Care; Visit Provider Radiology Diagnostic Radiology | DX: M17.11 Unilateral primary osteoarthritis, right knee (principal); I70.201 Unspecified atherosclerosis of native arteries of extremities, right leg | CPT/HCPCS: 73564 ==

== ENCOUNTER 2025-07-06 09:13 | Outpatient (AMB) | payer OTHER, SELFPAY ==
--- OUTSIDE RECORDS SUMMARY | 2025-07-01 09:30 | XMS_ITS | Encounter Summary ---
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 The patient last took Oxycodone on: 07/01/25 Medication is: 45 % effective at alleviating pain. OBJECTIVE: SHIFT SUPERVISOR FILM PROCESSING checked: 07/01/2025 Pill count completed for Oxycodone , count today is 60 , anticipated count should be 56, this is asexpected. Vital Signs Pain Score: 8 Pain Loc: Back Pain Education: Yes Last PCP visit: 03/30/25 BPI completed on: 07/01/2025 , pain severity score: 6, activity interference score: 7.5 BPI completed on: 12/01/24 , pain severity score: 10, activity interference score: 10 Controlled substance agreement signed: Controlled Substance Agreement 12/01/2024 MEDICAL BILLING ASSOCIATE Tier: 3 Current Medications[1] Smoking status: Denies ETOH use: Denies Illicit substances: Denies Marijuana use: No Lab Results Component Value Date POCTHC Negative 07/01/2025 POCCOCAINEUR Negative 07/01/2025 POCOPIATEUR Negative 07/01/2025 DOAUR Negative 07/01/2025 POCAMPHETAMI Negative 07/01/2025 POCBENZODIUR Negative 07/01/2025 POCBARBSCRN Negative 07/01/2025 POCMETHADOUR Negative 07/01/2025 POCBUPSCRN Negative 07/01/2025 POCTCAUR Negative 07/01/2025 POCMDMAUR Negative 07/01/2025 POCOXYCODONE Positive (A) 07/01/2025 POCPHENCYCUR Negative 07/01/2025 PROPOXUR Negative 07/01/2025 FENTANYLURIN Negative 07/01/2025 ASSESSMENT: Encounter Diagnosis Name Primary? Chronic low back pain, unspecified back pain laterality, unspecified whether sciatica present PLAN: Information on pain group given: Previously discussed Information on acupuncture given: Previously discussed Narcan education provided: Previously discussed Narcan prescription: active Jose D Dickens will continue taking medication as prescribed and follow up at the next MEDICAL BILLING ASSOCIATE visit or sooner if needed. Jose D Dickens has verbalized understanding of care plan. Future Appointments Date Time Provider Department Center 07/27/2025 11:00 AM PAVITHRA Mcdonald MEDICINE [facility] 11/02/2025 9:30 AM Lynn Armijo RN [facility] Lynn Armijo RN [1] Current Outpatient Medications: Arnuity Ellipta 200 MCG/ACT inhaler, INHALE 1 PUFF BY MOUTH EVERY DAY AT THE SAME TIME RINSE MOUTH AFTER USING, Disp: 30 each, Rfl: 3 aspirin (Aspirin Low Dose) 81 MG EC tablet, TAKE 1 TABLET BY MOUTH EVERY MORNING, Disp: 90 tablet, Rfl: 1 atorvastatin (Lipitor) 80 MG tablet, , Disp: , Rfl: carvedilol (Coreg) 25 MG tablet, TAKE 1 TABLET BY MOUTH TWICE DAILY IN THE MORNING AND IN THE EVENING WITH FOOD, Disp: 180 tablet, Rfl: 1 cholecalciferol (Vitamin D-3) 25 MCG tablet, TAKE 2 TABLETS BY MOUTH ONCE DAILY IN THE MORNING, Disp: 180 tablet, Rfl: 3 gabapentin (Neurontin) 300 MG capsule, TAKE 1 CAPSULE BY MOUTH AT BEDTIME, Disp: 30 capsule, Rfl: 11 glucose blood (FREESTYLE LITE) test strip, Use to test blood sugar QID, Disp: , Rfl: Icosapent Ethyl (Vascepa) 1 g capsule, , Disp: , Rfl: insulin glargine (Toujeo Max SoloStar) 300 UNIT/ML injection, Inject 12 Units under the skin in themorning., Disp: , Rfl: isosorbide mononitrate ER (Imdur) 60 MG 24 hr tablet, TAKE 2 TABLETS BY MOUTH ONCE DAILY IN THE MORNING, Disp: 180 tablet, Rfl: 1 ketoconazole (NIZOral) 2 % shampoo, APPLY TOPICALLY TO AFFECTED AREA(S), LATHER, LEAVE IN FOR 5 MINUTES, AND RINSE WITH WATER, Disp: 120 mL, Rfl: 1 Lancets 33G misc, Use to test blood sugar four times daily, Disp: , Rfl: lidocaine (Xylocaine) 5 % ointment, , Disp: , Rfl: naloxone (Narcan) 4 mg/0.1 mL nasal spray, Administer 1 spray (4 mg) into affected nostril(s) if needed for opioid reversal. May repeat every 2-3 minutes if needed, alternating nostrils, until medical assistance becomes available., Disp: 2 each, Rfl: 0 NIFEdipine CC (Adalat CC) 30 MG 24 hr tablet, TAKE 4 TABLETS BY MOUTH AT BEDTIME, Disp: 360 tablet,Rfl: 1 NovoLOG FLEXPEN 100 UNIT/ML pen, Inject 10 units subcutaneously before breakfast, 24 units before lunch and 16 units before dinner as directed, Disp: , Rfl: omeprazole (PriLOSEC) [address] capsule, TAKE 1 CAPSULE BY MOUTH EVERY MORNING, Disp: 90 capsule, Rfl: 1 OXcarbazepine (Trileptal) 300 MG tablet, , Disp: , Rfl: oxyCODONE (Roxicodone) 10 MG immediate release tablet, TAKE 1 TABLET BY MOUTH EVERY 8 HOURS NEEDED FOR SEVERE PAIN FOR UP TO 28 DAYS, Disp: 84 tablet, Rfl: 0 pen needle 32G x 4 mm misc, Use as instructed with insulin, Disp: , Rfl: perphenazine 2 MG tablet, , Disp: , Rfl: sertraline (Zoloft) 100 MG tablet, , Disp: , Rfl: torsemide (Demadex) 20 MG tablet, TAKE 4 TABLETS BY MOUTH TWICE DAILY IN THE MORNING AND THE EVENING, Disp: 240 tablet, Rfl: 3 Ventolin HFA 108 (90 Base) MCG/ACT inhaler, INHALE 2 PUFFS BY MOUTH EVERY 4 HOURS NEEDED, Disp: 18 g, Rfl: 1 zolpidem (Ambien) 10 MG tablet, , Disp: , Rfl: documented in this encounter Plan of Treatment Upcoming Encounters Date Type Department Care Team (Late st Contact Info) Description 07/27/2025 11:00 AM EDT Office Visit [facility] MEDICINE [address] [place], [place] [phone] Nuvia Crook ANP [address] [place], [place] [phone] 11/02/2025 9:30 AM EST Clinical Support [facility] CHC MED & PEDS [address], [place] [phone] Lynn Armijo RN [address] [place] [address] documented as of this encounter Procedures Procedure Name Priority Date/Time Associated Diagnosis Comments POCT KATHY-14 URINE DRUG SCREEN Routine 07/01/2025 9:30 AM EDT Chronic low back pain, unspecified back pain laterality, unspecified whether sciatica present documented in this encounter Results * (ABNORMAL) POCT KATHY-14 Urine Drug Screen (07/01/2025 9:30 AM EDT) THC Negative Negative Cocaine Screen, Urine Negative Negative Opiate Screen, Urine Negative Negative Methamphetamine Screen Urine Negative Negative Amphetamine Screen, Urine Negative Negative Benzodiazepines Screen, Urine Negative Negative Barbiturate Screen, Urine Negative Negative Methadone Screen, Urine Negative Negative Buprenophine Screen, Urine Negative Negative TCA, Urine Negative Negative MDMA Urine Negative Negative ng/mL Oxycodone Screen, Urine Positive(A) Negative Phencyclidine (PCP), Urine Negative Negative Propoxyphene, Urine Negative Negative Fentanyl, Urine Negative Negative Urine Urine specimen obtained by clean catch procedure / Unknown 07/01/2025 9:30 AM EDT Narrative Lynn Armijo, RN - 07/01/2025 9:30 AM EDT Internal Pass Control Lot# [id number] Exp: 08-27-26 Nuvia ARSHAD POINT OF CARE TEST ENTER/EDIT OR DERABLES Final Result documented in this encounter Visit Diagnoses Diagnosis Chronic low back pain, unspecified back pain laterality, unspecified whether sciatica present documented in this encounter Additional Health Concerns Assessment Noted Time PHQ-9 Depression Total Score: 0 09/10/20 9:05 AM EST documented as of this encounter Care Teams High Lighter Relationship Specialty Start Date End Date Nuvia Crook ANP [address] [place] [address] PCP - General Family Medicine 06/21/20 Renard Ritchie MD [address] [facility] [address] [place] [address] Nephrology 10/13/24 Eliecer Bob MD [address] [place] [address] Endocrinology 10/13/24 Albert Galaviz MD [address] [place] [address] Cardiology 10/13/24 documented as of this encounter
--- NOTE | 2025-07-06 09:16 | A.OFFVIS_ITS ---
Vital Signs 07/06/25 09:21 07/06/25 09:46 Height 5 ft 11 in Weight 224 lb 13.944 oz BMI 31.4 BP 180/78 H 166/70 H Blood Pressure Location Rt brachial Position Sitting Pulse 77 Pulse Source Pulse Oximeter Pulse Oximetry (%) 99 Oxygen Delivery Method Room Air Intake Visit Reasons: Type II diabetes Intake Note: Patient present today to follow up on Type 2 Diabetes Mellitus. Last Diabetic Eye exam: approx in February 2025 Last Podiatry Visit: Does not see a Traction Power Engineer Random Glucose: 99 mg/dL HgA1C: 6.0%, 07/06/2025 Livestock Inspector Required: Yes Livestock Inspector Language: Chartered Financial Analyst Services: Livestock Inspector Offered & Declined Accompanied by: Self / Same As Patient Allergies No Known Allergies Allergy (Verified 07/06/25 09:17) Medication List - Last Reconciled 07/06/25 by CORNELIO Sol acetaminophen (Tylenol) 650 mg (2 x 325 mg) PO Q8H PRN albuterol sulfate 90 mcg/actuation (Ventolin HFA) 2 puffs PO Q4H PRN aspirin 1 tab PO DAILY atorvastatin 80 mg PO BEDTIME blood sugar diagnostic (FreeStyle Lite Strips) As directed 4x DAILY blood-glucose meter (FreeStyle Lite Meter kit) As directed blood-glucose sensor (FreeStyle Abhishek 3 Plus Sensor device) Apply 1 new sensor every 15 days as directed to monitor blood glucose continuously. blood-glucose,armored service technician,cont (FreeStyle Abhishek 3 Revere) Use daily to monitor blood glucose levels continuously. carvedilol 25 mg PO BID 90 days cholecalciferol (vitamin D3) 2 tabs PO DAILY diclofenac sodium 1% (Voltaren Arthritis Pain) 4 grams topical QID doxazosin 2 mg PO DAILY fluticasone furoate 200 mcg/actuation (Arnuity Ellipta) 1 inh inhalation DAILY gabapentin 300 mg PO BEDTIME icosapent ethyl (Vascepa) 2 grams (2 x 1 gram) PO BID insulin aspart U-100 (Novolog FlexPen U-100 Insulin aspart) 5 units before breakfast on non-dialysis days and 12 units before lunch isosorbide mononitrate ER 120 mg PO QAM lancets (TRUEplus Lancets) TEST BLOOD SUGAR FOUR TIMES DAILY DIRECTED lancets (FreeStyle Lancets) As directed 4x daily nifedipine ER 120 mg (4 x 30 mg) PO BEDTIME 90 days omeprazole 20 mg PO BID 30 days oxcarbazepine 1 tab PO BID oxycodone 10 mg PO Q6H PRN pen needle, diabetic (BD Ultra-Fine Silvia Pen Needle) As directed five times a day perphenazine 1 tab PO BID sertraline 2 tabs PO DAILY tadalafil (Cialis) 5 mg PO DAILY 90 days torsemide 80 mg (4 x 20 mg) PO BID tramadol 2 tabs PO Q8H PRN zolpidem 1 tab PO BEDTIME PRN HPI Comments Details: Patient is a 64-year-old male with DM type 2 diagnosed in in 1999, who presents for diabetic follow up. Patient's hemoglobin A1c today is 6.0%. Reviewed CGM Activity 55% G ME 6.3% Variability 39.5% Very high 0% High 13% Target range 76% Low 11% Pattern of hypoglycemia nocturnally, housing management representative in occasionally mid day. Patient continues to say that when he checks fingerstick glucose to confirm low, sugars are always above 70. Denies symptoms of hypoglycemia. Reviewed glucometer download. Highest reading to 260, lowest 86. 58% in range, average sugar 168. Current regimen: Patient takes NovoLog 5 units before breakfast on non dialysis days, 12 units of NovoLog before lunch and 3 units before dinner He self discontinued Toujeo due to low sugars previously. Past medical history includes: DM2, CHF, HTN, HLD, HTG, ESRD on HD MWF, sleep apnea, hx pancreatitis (2012, 2020) Micro and macrovascular complications: + retinopathy, + nephropathy, +neuropathy, PAD Care team Nephrology-Dr Ritchie-at HD Cardiology-Dr Gibbs/Patricio Patient also sees Podiatry and Orthopedics. Patient's blood pressure is elevated today though it did improve when I rechecked it. He says his blood pressure is variable. He denies headaches, dizziness, vision changes, chest pain and shortness of breath. Patient says he is compliant with atorvastatin and Vascepa. He can not take a fibrate due to end-stage renal disease. ROS: Constitutional: No fevers, chills, night sweats or increased fatigue Eyes: No vision changes Respiratory: No shortness of breath Cardiovascular: No chest pain, chest pressure or chest discomfort. No palpitations or pedal edema. Neurologic: No headache, dizziness, syncope. He gets some numbness and tingling in his feet. He says it does not bother him. Hematologic/Lymphatics: No bleeding Endocrine: No polyuria, polydipsia, shakiness, weakness. Physical exam: Constitutional: Alert, in no distress. Head: Normocephalic. Eyes: Pupils are equal, round and reactive to light. Extraocular muscles intact. Neck: Supple, Full range of motion. No lymphadenopathy. Respiratory: Clear to auscultation. Cardiovascular: S1 S2 regular. No murmurs. Feet: Patient declined exam. [facility] Medical History (Updated 07/06/25 @ 10:03 by CORNELIO Sol) Hypertriglyceridemia Arthritis of knee, right Knee pain, right Insulin long-term use Diabetic neuropathy Type 2 diabetes, controlled, with renal manifestation ESRD (end stage renal disease) on dialysis CHF exacerbation Diabetes type 2, uncontrolled Anemia HTN (hypertension) Heart failure with preserved ejection fraction CKD (chronic kidney disease) stage 4, GFR 15-29 ml/min Congestive heart failure Type 2 diabetes mellitus with unspecified complications Diastolic dysfunction Essential hypertension Hyperglycemia Hypertensive crisis Pancreatitis Chronic kidney disease, stage 4 (severe) Erectile dysfunction Depression with anxiety Proteinuria Diverticulitis Type 2 diabetes mellitus with hyperglycemia, with long-term current use of insulin Type 2 diabetes mellitus with polyneuropathy Type 2 diabetes mellitus with chronic kidney disease Hypertension Diabetes mellitus with hyperglycemia, with long-term current use of insulin History of alcohol abuse Abnormal biopsy of kidney Peptic ulcer Hx of pancreatitis Anxiety Depression COPD (chronic obstructive pulmonary disease) History of headache Sleep apnea Asthma On beta doron at home Elevated cholesterol CHF (congestive heart failure) HTN (hypertension) Surgical History History of esophagogastroduodenoscopy (EGD) History of surgery Hx of right inguinal hernia repair Hx of colonoscopy Family History Mother Diabetes Social History Household Members: None Housing: Apartment Are you a primary gericare aide teacher to a significant other at home: No Do you presently have visiting nurse or other home services: Yes (FABRIC FINISHER) Alcohol intake: never Comment: pt sleeping Patient Tobacco Use Status: Never used Tobacco Tobacco use type: Cigarette Years Smoked: 30 Second Hand Smoke Exposure: Yes service: No Current occupational status: retired Physical Exam Vital Signs: Last Vital Signs Pulse 77 07/06/25 09:21 BP 166/70 H 07/06/25 09:46 Pulse Ox 99 07/06/25 09:21 Oxygen Delivery Method Room Air 07/06/25 09:21 BMI result Body Mass Index 31.4 Office Procedures Glucose Monitoring Details Details: See HPI 45603 - Glucose monitoring, continuous-physician I&R Procedure code (CPT) selection complete Results AMB Hemoglobin A1c AMB Hemoglobin A1c 6.0 % Last Edit by DEUCE Bernal on 07/06/25 09:36 Results Reviewed Results Reviewed: Laboratory Last Values Glucose (Clinic) 99 mg/dL (60-115) 07/06/25 09:27 Hgb A1c (Clinic) 6.0 % (4.0-6.0) 07/06/25 09:32 Laboratory Tests 05/29/25 07/06/25 09:45 09:32 Creatinine 9.00 H* Estimated GFR 6 Hgb A1c (Clinic) 6.0 He had lab work done externally on 01/27/2025, and his triglycerides were 757, total cholesterol 184, HDL 20 and LDL was not calculated due to high triglycerides. Assessment & Plan Assessment & Plan (1) Type 2 diabetes mellitus with hypoglycemia without coma: Code(s): E11.649 - Type 2 diabetes mellitus with hypoglycemia without coma Category: Medical Qualifiers: Diabetes mellitus utility bill complaints investigator insulin use: with penitentiary use Qualified Code(s): E11.649 - Type 2 diabetes mellitus with hypoglycemia without coma; Z79.4 - drafter apprentice (current) use of insulin (2) Hypertriglyceridemia: Code(s): E78.1 - Pure hyperglyceridemia Category: Medical (3) Essential hypertension: Code(s): I10 - Essential (primary) hypertension Category: Medical Plan In summary this is a 64-year-old male with controlled type 2 diabetes with chronic insulin use and micro and macrovascular complications. Patient will take NovoLog 5 units before breakfast on non dialysis days, 12 units of NovoLog before lunch and eliminate his dose before dinner. Remain off Toujeo. If you experience low blood sugar, treat this by eating a chewable fruit candy like skittles or jelly beans (about 8 pieces), 4 ounces (1/2 cup) of fruit juice (not diet), 1 tablespoon of honey or 4 glucose tablets. If your blood sugar is under 50, take double the amount of one of the above. Recheck your blood sugar in 15 minutes. Continue to follow up with all specialists as planned. Patient says he has an appointment at the dialysis center tomorrow, and he will have his blood pressure rechecked there. Denies symptoms of high blood pressure . Continue medications. Reviewed lifestyle modifications regarding elevated triglycerides. Check lipid profile. Fibrate contraindicated. Continue atorvastatin and Vascepa. Follow up in 3 months for type 2 diabetes. Orders: Orders AMB Glucose Monitoring Today E11.9 - Type 2 diabetes mellitus without complications Lipid Panel Today E11.649 - Type 2 diabetes mellitus with hypoglycemia without coma, E78.1 - Pure hyperglyceridemia, E78.5 - Hyperlipidemia, unspecified, I10 - Essential (primary) hypertension LDL Cholesterol Direct Today E11.649 - Type 2 diabetes mellitus with hypoglycemia without coma, E78.1 - Pure hyperglyceridemia, I10 - Essential (primary) hypertension AMB Hemoglobin A1c Today E11.649 - Type 2 diabetes mellitus with hypoglycemia without coma, Z79.4 - custodial (current) use of insulin Medications: Changed From lancets (FreeStyle Lancets) As directed 100 ea 6RF E11.649 - Type 2 diabetes mellitus with hypoglycemia without coma To lancets (FreeStyle Lancets) As directed 4x daily 200 ea 11RF E11.649 - Type 2 diabetes mellitus with hypoglycemia without coma Refilled blood sugar diagnostic (FreeStyle Lite Strips) As directed 4x DAILY 200 ea 11RF E11.649 - Type 2 diabetes mellitus with hypoglycemia without coma Patient Instructions: NovoLog 5 units before breakfast on non dialysis days, 12 units of NovoLog before lunch and stop taking Novolog before dinner. If you experience low blood sugar, treat this by eating a chewable fruit candy like skittles or jelly beans (about 8 pieces), 4 ounces (1/2 cup) of fruit juice (not diet), 1 tablespoon of honey or 4 glucose tablets. If your blood sugar is under 50, take double the amount of one of the above. Recheck your blood sugar in 15 minutes. Coding Level of Care Code Est Pt Level 4 (20278) Diagnoses Type 2 diabetes mellitus with hypoglycemia without coma, with long-term current use of insulin E11.649; Z79.4 Diabetes mellitus penitentiary insulin use: with penitentiary use Hypertriglyceridemia E78.1 Essential hypertension I10 CPT Codes Details - CPT: 95705 - Glucose monitoring, continuous-physician I&R ([id number])
[2025-07-06 09:21] VITALS: BP 180/78; PULSE 77; O2SAT 99; BMI 31.4
[2025-07-06 09:31] LABS: Glucose, Whole Blood 99 mg/dL (60-115)
[2025-07-06 09:46] VITALS: BP 166/70
--- OUTSIDE RECORDS SUMMARY | 2025-07-06 10:00 | XMS_ITS | Encounter Summary ---
Author Organization [employer] Address [address] [facility] [address] [place] [address] Care Team Providers Care Contact Lens Polisher Name Role Phone Ambreen Nuvia ARSHAD Primary Care Provider Renard Ritchie MD Unavailable Eliecer Bob MD Unavailable [phone] Albert Galaviz MD Unavailable Reason for Visit * Reason Comments Dental Pain Pt came in as an kelli rgency with pain on hie upper and lower left side for the pass few days. Panorex taken Encounter Details Date Type Department Care Team (Late st Contact Info) Description 07/06/2025 10:00 AM EDT Office Visit [facility] ADULT DENTAL [address] [place], [place] [phone] Thomas Tejeda DDS [address] [place], [place] [phone] Arrived Social History Tobacco Use Types Packs/Day Years [...] Description 07/27/2025 11:00 AM EDT Office Visit [facility] MEDICINE [address] [place] [address] Nuvia Crook ANP [address] [place] [address] 11/02/2025 9:30 AM EST Clinical Support [facility] MED & PEDS [address] [place] [address] Lynn Armijo, NIMISHA [address] [place] [address] documented as of this encounter Visit Diagnoses Not on filedocumented in this encounter Additional Health Concerns Assessment Noted Time PHQ-9 Depression Total Score: 0 09/10/20 9:05 AM EST documented as of this encounter Care Teams Contact Lens Polisher Relationship Specialty Start Date End Date Nuvia Crook ANP [address] [place] [address] PCP - General Family Medicine 06/21/20 Renard Ritchie MD [address] [place] [address] Nephrology 10/13/24 Eliecer Bob MD [address] [place] [address] Endocrinology 10/13/24 Albert Galaviz MD [address] [place] [address] Cardiology 10/13/24 documented as of this encounter
--- OUTSIDE RECORDS SUMMARY | 2025-07-06 10:36 | XMS_ITS | Patient Health Record ---
Author Organization [facility] Address [address] [place] [address] Care Team Providers Care Gaming Department Head Name Role Phone Kady WAITE, Gonzalez Primary Care Provider Eliecer Langley Unavailable [phone] Reason For Referral No Information Medications Medication [...] Problem Status W/U Status Risk Notes Problem Hyperlipidemia (46653749) Other and unspecified hyperlipidemia (272.4) Active confirmed Low Problem Acute pancreatitis (756765670) Acute pancreatitis (577.0) Active confirmed Plan Of Treatment No Information Insurance Providers Payer Name Payer Address Payer Phone Subscriber Number Group Number Insured Name Patient Relationship to Insured Coverage Start Date Coverage End Date [facility] [address] [address] [place], [place] [id number] [phone] [id number] JELANI JACINTO Self - patient is the insured Medical (General) History Medical History History ICD Code NIDDM hypertension asthma He has had [address] negative [address] Abrams and Dr. Castillo Denies VT and CVA Proteinuria--sees Dr. Vieira Pancreatitis-acute--due to [...]
--- OUTSIDE RECORDS SUMMARY | 2025-07-06 10:36 | XMS_ITS | Encounter Summary ---
Author Organization [employer] Address [address] 7t [place] [address] Care Team Providers Care Plate Grinder Name Role Phone Nuvia Crook Primary Care Provider [phone] Renard Ritchie MD Unavailable Eliecer Bob MD Unavailable [phone] Albert Galaviz MD Unavailable [phone] Encounter Details Date Type Department Care Team (Late st Contact Info) Description 12/30/2023 Telephone [facility] [address] [place] [address] Nuvia Crook ANP [address] [place], [place] [phone] Social History Tobacco Use Types Packs/Day Years [...] Description 07/27/2025 11:00 AM EDT Office Visit [facility] [address] [place] [address] Nuvia Crook ANP [address] [place] [address] 11/02/2025 9:30 AM EST Clinical Support [facility]S [address] [place] [address] Lynn Armijo, RN 505 [place] [address] documented as of this encounter Visit Diagnoses Not on filedocumented in this encounter Additional Health Concerns Assessment Noted Time PHQ-9 Depression Total Score: 0 07/02/20 23 9:05 AM EDT documented as of this encounter Care Teams Plate Grinder Relationship Specialty Start Date End Date Nuvia Crook ANP [address] [place] [address] PCP - General Family Medicine 06/21/20 Renard Ritchie MD [address] [facility] [address] [place] [address] Nephrology 10/13/24 Eliecer Bob MD [address] [place] [address] Endocrinology 10/13/24 Albert Galaviz MD [address] [place] [address] Cardiology 10/13/24 documented as of this encounter
--- OUTSIDE RECORDS SUMMARY | 2025-07-06 10:37 | XMS_ITS | Encounter Summary ---
Author Organization [email or web address] Address [address] 7t [place] [address] Care Team Providers Care Mailing Jogger Name Role Phone Crook Nuvia ARSHAD Primary Care Provider [phone] Renard Ritchie MD Unavailable [phone] Eliecer Bob MD Unavailable [phone] Albert Galaviz MD Unavailable [phone] Encounter Details Date Type Department Care Team (Latest Contact Info) Description 07/01/2025 Travel Social History Tobacco Use Types Packs/Day Years Used Date Smoking Tobacco: Former Cigarettes 1 - 2022 Passive Smoke Exposure: Never Smokeless [...] Description 07/27/2025 11:00 AM EDT Office Visit [facility] MED[facility]INE [address] [place] [address] Nuvia Crook ANP [address] [place] [address] 11/02/2025 9:30 AM EST Clinical Support [facility]EDS [address] [place] [address] Lynn Armijo, NIMISHA 505 [place] [address] documented as of this encounter Visit Diagnoses Not on filedocumented in this encounter Additional Health Concerns Assessment Noted Time PHQ-9 Depression Total Score: 0 09/10/20 24 9:05 AM EST documented as of this encounter Care Teams Mailing Jogger Relationship Specialty Start Date End Date Nuvia Crook ANP [address] [place] [address] PCP - General Family Medicine 06/21/20 Renard Ritchie MD 100 [facility] 200 [place] [address] Nephrology 10/13/24 Eliecer Bob MD [address] [place] [address] Endocrinology 10/13/24 Albert Galaviz MD 5[address] [place] [address] Cardiology 10/13/24 documented as of this encounter
--- OUTSIDE RECORDS SUMMARY | 2025-07-06 10:37 | XMS_ITS | Clinical Summary ---
Author Organization [facility] Address [address] [facility] [place] [address] Phone Care Team Providers Care Home Administrator Name Role Phone Ambreen Nuvia Wiley NP Primary Care Provider [phone] Allergies No known active allergies Medications aspirin [...] TWICE DAILY FOR 2 WEEKS 2 Active predniSONE (DELTASONE) 20 MG tablet TAKE 1 TABLET BY MOUTH EVERY DAY FOR 5 DAYS 5 tablet 1 5 Active torsemide (DEMADEX) 20 MG tablet Take [...] 01/2021 Essential hypertension 12/29/202005/29 Hypertensive heart disease [facility] congestive heart failure 12/29/2020 05/29/2021 Morbid obesity 12/29/2020 05/29/2021 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/29/2020 05/29/2021 Sleep apnea 12/29/2020 05/29/2021 Type 2 diabetes mellitus 12/29/202011/2020 Encounters Date Type Department Care Team Description 06/28/2025 Treatment [facility] [address] [address] Renard Ritchie MD End stage renal disease; Dependence on renal dialysis 06/25/2025 Refill [facility] [address] [address] Renard Ritchie MD 06/21/2025 Treatment [facility] [address] [address] Renard Ritchie MD End stage renal disease; Dependence on renal dialysis 06/14/2025 Treatment [facility] [address] [address] Renard Ritchie MD End stage renal disease; Dependence on renal dialysis 06/07/2025 Treatment [facility] [address] [address] Renard Ritchie MD End stage renal disease; Dependence on renal dialysis 05/31/2025 Treatment [facility] [address] [address] Renard Ritchie MD End stage renal disease; Dependence on renal dialysis 05/28/2025 Treatment [facility] [address] [phone] Renard Ritchie MD End stage renal disease; Dependence on renal dialysis 05/28/2025 Treatment [facility] [address] [facility] 200 [place] [phone] Renard Ritchie MD End stage renal disease; Dependence on renal dialysis 05/24/2025 Treatment [facility] [address] [phone] Renard Ritchie MD End stage renal disease; Dependence on renal dialysis 05/12/2025 Treatment [facility] [address] [phone] Renard Ritchie MD End stage renal disease; Dependence on renal dialysis 05/03/2025 Treatment [facility] [address] [phone] Renard Ritchie MD End stage renal disease; Dependence on renal dialysis 04/28/2025 Treatment [facility] [address] [address] Renard Ritchie MD End stage renal disease; Dependence on renal dialysis 04/19/2025 Treatment [facility] [address] [phone] Renard Ritchie MD End stage renal disease; Dependence on renal dialysis 04/14/2025 Orders Only [facility] [address] [phone] Renard Ritchie MD 04/12/2025 Treatment [facility] [address] [phone] Renard Ritchie MD End stage renal disease; Dependence on renal dialysis 04/05/2025 Treatment [facility] [address] [address] Renard Ritchie MD End stage renal disease; [...] Additional history exists Diabetes: Hemoglobin A1C 07/29/2025 0702/2 025, 01/27/2025, 09/10/2024, Additional history exists Pneumococcal Vaccine: 50+ Years Completed 02/04/2024, 04/07/2019, 03/24/2010 Pneumococcal Vaccine: Peds ( 0 to 5 Years) and At-Risk Patients (6 to 49 Years) Discontinued 02/04/2024, 04/07/2019, 03/24/2010 Procedures Procedure Name Priority Date/Time Associated Diagnosis Comments FERRITIN Routine 06/30/2025 3:00 AM EDT MAGNESIUM Routine 06/30/2025 3:00 AM EDT PROTEIN, TOTAL, SERUM Routine 06/30/2025 3:00 AM EDT LIH (HC) Routine 06/30/2025 3:00 AM EDT ELECTROLYTE PANEL Routine 06/30/2025 3:0 0 AM EDT TRANSFERRIN SATURATION Routine 3:00 AM EDT GLUCOSE, RANDOM Routine 06/30/2025 3:00 AM EDT CREATININE, SERUM Routine 06/30/2025 3:0 0 AM EDT LACTATE DEHYDROGENASE Routine 06/30/2025 3:00 AM EDT BUN/CREATININE RATIO Routine 06/30/2025 3:00 AM EDT AST Routine 06/30/2025 3:00 AM EDT BILIRUBIN, TOTAL Routine 06/30/2025 3:00 AM EDT ALT Routine 06/30/2025 3:00 AM EDT ALKALINE PHOSPHATASE Routine 06/30/2025 3:00 AM EDT CALCIUM PHOSPHORUS PRODUCT, ADJUSTED (HC) Routine 06/30/2025 3:00 AM EDT CBC AND DIFFERENTIAL Routine 06/30/2025 3:00 AM EDT KT/V NATURAL LOG, URR (HC) Routine 06/30/2025 3:00 AM EDT PHOSPHATE ( PHOSPHORUS) Routine 06/21/2025 3:00 AM EDT LIH (HC) Routine 06/21/2025 3:00 AM EDT HEMOGLOBIN Routine 06/21/2025 3:00 AM EDT HEMOGLOBIN Routine 06/16/2025 3:00 AM EDT LIH (HC) Routine 06/11/2025 3:00 AM EDT [...] URR (HC) Routine 04/05/2025 3:00 AM EDT from Last 3 Months Results * LIH (06/30/2025 3:00 AM EDT) Only the most recent of7 resultswithin the time period is included. Lipemia Normal Normal [facility] Icterus Normal Normal [facility] Hemolysis Normal Normal [facility] 06/30/2025 3:00 AM EDT 07/01/2025 3:57 PM EDT us Renard Ritchie MD LAB [id number] SOLICITED RESULTS Final Result [facility] [address] [place] [address] * (ABNORMAL) Kt/V Natural Log, URR (06/30/2025 3:00 AM EDT) Only the most recent of4 resultswithin the time period is included. Treatment Time 245 min [facility] Pre-Weight, lb 103.4 kg [facility] Post-Weight, lb 99.6 kg [facility] Ultrafiltration Rate 9 <=13 mL/kg/hr [facility] Comment: Recommend achieving Ultrafiltration Rate (UFR) <=10 mL/kg/hr References: Kei BOOKER et al. Kidney Int. 2010; 79(2):250-257 BUN 71(H) 7 - 25 mg/dL [facility] BUN Post Dialysis 20 7 - 25 mg/dL [facility] UREA REDUCTION RATIO (%) 72 >=65 % [facility] Kt/V Natural Log 1.51 >=1.2 [facility] 06/30/2025 3:00 AM EDT 07/01/2025 3:48 PM EDT us Renard Ritchie MD LAB [id number] SOLICITED RESULTS Final Result Performing Organization Address [facility] Co de Phone Number [facility] [address] [place] [address] * (ABNORMAL) Calcium Phosphorus Product, Adjusted (06/30/2025 3:00 AM EDT) Only the most recent of3 resultswithin the time period is included. Albumin 4.4 3.6 - 5.4 g/dL [facility] Calcium 7.8(L) 8.6 - 10.3 mg/dL [facility] Phosphorus, Serum 3.9 2.5 - 5.0 mg/dL [facility] Ca*PO4 30.4 <55.0 mg2/dL2 [facility] Calcium, Adjusted Total 7.8(L) 8.6 - 10.3 mg/dL [facility] CA*PO4 CORRCTD 30.4 <55.0 mg2/dL2 [facility] 06/30/2025 3:00 AM EDT 07/01/2025 3:57 PM EDT us Renard Ritchie MD LAB [id number] SOLICITED RESULTS Final Result Performing Organization Address [facility] de Phone Number [facility] [address] [place] [address] * BUN/CREATININE RATIO (06/30/2025 3:00 AM EDT) Only the most recent of3 resultswithin the time period is included. BUN/Creatinine Ratio 6.6 <=23.0 [facility] 06/30/2025 3:00 AM EDT 07/01/2025 3:57 PM EDT us Renard Ritchie MD LAB [id number] SOLICITED RESULTS Final Result Performing Organization Address City/[facility]/ZIP Co de Phone Number [facility] [address] [place] [address] * (ABNORMAL) TSAT (06/30/2025 3:00 AM EDT) Only the most recent of3 resultswithin the time period is included. Iron 83 65 - 175 ug/dL [facility] Transferrin 134(L) 215 - 365 mg/dL [facility] TIBC 188(L) 211 - 406 ug/dL [facility] Iron Saturation (TSat) 44 22 - 52 % [facility] 06/30/2025 3:00 AM EDT 07/01/2025 3:57 PM EDT Renard Ritchie MD LAB BLOOD ORDERABLES Final Re sult Performing Organization Address [facility] Co de Phone Number [facility] [address] [place] [address] * (ABNORMAL) CBC and Differential (06/30/2025 3:00 AM EDT) Only the most recent of3 resultswithin the time period is included. Pathologist [facility] DIFFERENTIAL MANUAL, 2 Not Indicated [facility] White Blood Cells 9.5(H) 4.2 - 9.1 K/uL [facility] RBC 2.82(L) 4.63 - 6.08 M/uL [facility] Hgb 9.9(L) 13.7 - 17.5 g/dL [facility] Hemoglobin x 3 29.7(L) 41.1 - 52.5 g/dL [facility] Hematocrit 28.5(L) 40.1 - 51.0 % [facility] MCV 101.1(H) 79.0 - 92.2 fL [facility] MCH 35.1(H) 25.7 - 32.2 pg [facility] MCHC 34.7 32.3 - 36.5 g/dL [facility] RDW 14.2 11.6 - 14.4 % [facility] Platelets 104(L) 163 - 337 K/uL [facility] MPV 13.1(H) 9.1 - 13.0 fL [facility] Neutrophils Relative 81.5(H) 34.0 - 67.9 % [facility] Lymphocytes Relative 11.9(L) 21.8 - 53.1 % [facility] Monocytes 4.3(L) 5.3 - 12.2 % [facility] Eosinophils Relative 1.2 0.8 - 7.0 % [facility] Basophils Relative 0.2 0.2 - 1.2 % [facility] Immature Granulocytes 0.9 0.0 - 1.0 % [facility] 06/30/2025 3:00 AM EDT 07/01/2025 3:52 PM EDT Renard Ritchie MD LAB BLOOD ORDERABLES Final Re sult Performing Organization Address [facility] Co de Phone Number [facility] [address] [place] [address] * ALT (06/30/2025 3:00 AM EDT) Only the most recent of3 resultswithin the time period is included. ALT (SGPT) 22 10 - 49 U/L [facility] 06/30/2025 3:00 AM EDT 07/01/2025 3:57 PM EDT Renard Ritchie MD LAB BLOOD ORDERABLES Final Re sult Performing Organization Address [facility] de Phone Number [facility] [address] [place] [address] * AST (06/30/2025 3:00 AM EDT) Only the most recent of3 resultswithin the time period is included. AST (SGOT) 17 <34 U/L [facility] 06/30/2025 3:00 AM EDT 07/01/2025 3:57 PM EDT Renard Ritchie MD LAB BLOOD ORDERABLES Final Re sult Performing Organization Address [facility] de Phone Number [facility] [address] [place] [address] * Protein, total (06/30/2025 3:00 AM EDT) Only the most recent of3 resultswithin the time period is included. Total Protein 7.2 6.4 - 8.9 g/dL [facility] 06/30/2025 3:00 AM EDT 07/01/2025 3:57 PM EDT us Renard Ritchie MD LAB BLOOD ORDERABLES Final Re sult Performing Organization Address [facility] de Phone Number [facility] [address] [place] [address] * Alkaline phosphatase (06/30/2025 3:00 AM EDT) Only the most recent of3 resultswithin the time period is included. Alkaline Phosphatase 94 46 - 116 U/L [facility] 06/30/2025 3:00 AM EDT 07/01/2025 3:57 PM EDT us Renard Ritchie MD LAB BLOOD ORDERABLES Final Re sult Performing Organization Address [facility] de Phone Number [facility] [address] [place] [address] * Magnesium (06/30/2025 3:00 AM EDT) Only the most recent of3 resultswithin the time period is included. Magnesium 1.9 1.9 - 2.7 mg/dL [facility] 06/30/2025 3:00 AM EDT 07/01/2025 3:57 PM EDT us Renard Ritchie MD LAB BLOOD ORDERABLES Final Re sult Performing Organization Address [facility] de Phone Number [facility] [address] [place] [address] * (ABNORMAL) Lactate dehydrogenase (06/30/2025 3:00 AM EDT) Only the most recent of3 resultswithin the time period is included. LDH 298(H) 120 - 246 U/L [facility] 06/30/2025 3:00 AM EDT 07/01/2025 3:57 PM EDT us Renard Ritchie MD LAB BLOOD ORDERABLES Final Re sult Performing Organization Address [facility] de Phone Number [facility] [address] [place] [address] * (ABNORMAL) Glucose, random (06/30/2025 3:00 AM EDT) Only the most recent of3 resultswithin the time period is included. Glucose 138(H) 70 - 99 mg/dL [facility] Comment: ADA guidelines outline the following fasting glucose ranges: Normal: <100 Prediabetes: 100-125 Diabetes: >125 06/30/2025 3:00 AM EDT 07/01/2025 3:57 PM EDT us Renard Ritchie MD LAB BLOOD ORDERABLES Final Re sult Performing Organization Address [facility] de Phone Number [facility] [address] [place] [address] * (ABNORMAL) Ferritin (06/30/2025 3:00 AM EDT) Only the most recent of3 resultswithin the time period is included. Ferritin 1,261(H) 22 - 322 ng/mL [facility] 06/30/2025 3:00 AM EDT 07/01/2025 3:57 PM EDT us Renard Ritchie MD LAB BLOOD ORDERABLES Final Re sult Performing Organization Address [facility] de Phone Number [facility] [address] [place] [address] * (ABNORMAL) Creatinine, serum (06/30/2025 3:00 AM EDT) Only the most recent of3 resultswithin the time period is included. Creatinine 10.69(H) 0.70 - 1.30 mg/dL [facility] 06/30/2025 3:00 AM EDT 07/01/2025 3:57 PM EDT us Renard Ritchie MD LAB BLOOD ORDERABLES Final Re sult Performing Organization Address [facility] Co de Phone Number [facility] [address] [place] [address] * (ABNORMAL) Bilirubin, total (06/30/2025 3:00 AM EDT) Only the most recent of3 resultswithin the time period is included. Total Bilirubin <0.2(L) 0.3 - 1.2 mg/dL [facility] 06/30/2025 3:00 AM EDT 07/01/2025 3:57 PM EDT Renard Ritchie MD LAB BLOOD ORDERABLES Final Re sult Performing Organization Address [facility] de Phone Number [facility] [address] [place] [address] * (ABNORMAL) Electrolyte panel (06/30/2025 3:00 AM EDT) Only the most recent of3 resultswithin the time period is included. Sodium 140 136 - 145 mEq/L [facility] Potassium 5.6(H) 3.4 - 5.0 mEq/L [facility] Chloride 97(L) 98 - 107 mEq/L [facility] Bicarbonate (CO2) 26 21 - 31 mEq/L [facility] Anion Gap 17(H) 3 - 14 mEq/L [facility] 06/30/2025 3:00 AM EDT 07/01/2025 3:57 PM EDT Renard Ritchie MD LAB BLOOD ORDERABLES Final Re sult Performing Organization Address [facility] de Phone Number [facility] [address] [place] [address] * (ABNORMAL) Hemoglobin (06/21/2025 3:00 AM EDT) Only the most recent of8 resultswithin the time period is included. Hgb 11.2(L) 13.7 - 17.5 g/dL [facility] Hemoglobin x 3 33.6(L) 41.1 - 52.5 g/dL [facility] 06/21/2025 3:00 AM EDT 06/22/2025 12:00 PM EDT Renard Ritchie MD LAB BLOOD ORDERABLES Final Re sult Performing Organization Address [facility] de Phone Number [facility] [address] [place] [address] * Phosphorus (06/21/2025 3:00 AM EDT) Only the most recent of2 resultswithin the time period is included. Phosphorus, Serum 3.9 2.5 - 5.0 mg/dL [facility] 06/21/2025 3:00 AM EDT 06/22/2025 11:59 AM EDT Renard Ritchie MD LAB BLOOD ORDERABLES Final Re sult Performing Organization Address [facility] de Phone Number [facility] [address] [place] [address] * Calcium, Adjusted w Albumin (06/11/2025 3:00 AM EDT) Calcium 8.7 8.6 - 10.3 mg/dL [facility] Albumin 4.9 3.6 - 5.4 g/dL [facility] Calcium, Adjusted Total 8.7 8.6 - 10.3 mg/dL [facility] 06/11/2025 3:00 AM EDT 06/12/2025 2:27 PM EDT Renard Ritchie MD LAB BLOOD ORDERABLES Final Re sult Performing Organization Address [facility] de Phone Number [facility] [address] [place] [address] * Confirmation Test HCV (05/21/2025 3:00 AM EDT) Hep C Ab Confirmation Not needed [facility] 05/21/2025 3:00 AM EDT 05/22/2025 1:12 PM EDT Renard Ritchie MD LAB BLOOD ORDERABLES Final Re sult Performing Organization Address [facility] de Phone Number [facility] [address] [place] [address] * HEPATITIS C ABS W/REFLEX RNA DETECTR (05/21/2025 3:00 AM EDT) Hep C Virus Ab Non-Reacti ve Non-Reacti ve [facility] 05/21/2025 3:00 AM EDT 05/22/2025 1:18 PM EDT Renard Ritchie MD LAB [id number] SOLICITED RESULTS Final Result Performing Organization Address [facility] de Phone Number [facility] [address] [place] [address] * PTH, Intact (04/28/2025 3:00 AM EDT) Pathologist [facility] PTH, Intact 189 160 - 721 pg/mL [facility] Comment: Suggested (KDIGO) ESRD maintenance range is two to nine times the upper normal limit (80.1 pg/mL) for the laboratory. 04/28/2025 3:00 AM EDT 04/29/2025 12:13 PM EDT Renard Ritchie MD LAB BLOOD ORDERABLES Final Re sult Performing Organization Address [facility] de Phone Number [facility] [address] [place] [address] * Hemoglobin A1c (04/28/2025 3:00 AM EDT) Pathologist [facility] Hemoglobin A1C 5.5 <5.7 % [facility] Comment: Methodology: Enzymatic Normal: <5.7% Prediabetes: 5.7-6.4% Diabetes: >6.4% Diabetic Glucose Control Evaluation: Therapeutic action suggested at >8.0% ADA recommends a glycemic goal of <7.0% 04/28/2025 3:00 AM EDT 04/29/2025 1:14 PM EDT us Renard Ritchie MD LAB BLOOD ORDERABLES Final Re sult Performing Organization Address [facility] de Phone Number [facility] [address] [place] [address] * (ABNORMAL) Lipid panel (04/28/2025 3:00 AM [...] Re sult Performing Organization Address [facility] Co de Phone Number [facility] [address] [place] [address] from Last [address] [facility] ([id number]) * Guarantor: Jose D Dickens Account Type Relation to Patient Date of Phone Billing Address Personal/Family Self [address] [address] [facility] ([id number]) Care Teams Home Administrator Relationship Specialty Start Date End Date Nuvia Crook NP [address] [place] [address] PCP - General Nurse Practitioner 10/16/21
--- OUTSIDE RECORDS SUMMARY | 2025-07-06 10:37 | XMS_ITS | Encounter Summary ---
Author Organization [employer] Address [address] [facility] 7t [place] [address] Care Team Providers Care Scheduling Coordinator Name Role Phone Nuvia Crook Primary Care Provider Renard Ritchie MD Unavailable Eliecer Bob MD Unavailable Albert Galaviz MD Unavailable [phone] Reason for Visit * Reason Comments Med Refill Encounter Details Date Type Department Care Team (Late st Contact Info) Description 08/07/2024 Refill [facility] [address] [place] [address] Name, MD David [address] [place] [address] Renal hypertension Social History Tobacco Use Types [...] housing situation today? I have bluejennifer abdullahi 08/12/[address] you [...] Description 07/27/2025 11:00 AM EDT Office Visit [facility] [address] [place] [address] Nuvia Crook ANP [address] [place] [address] 11/02/2025 9:30 AM EST Clinical Support [facility] [address] [place] [address] Lynn Armijo, NIMISHA [address] [place] [address] documented as of this encounter Visit Diagnoses Diagnosis Renal hypertension documented in this encounter Additional Health Concerns Assessment Noted Time PHQ-9 Depression Total Score: 0 07/02/20 23 9:05 AM EDT documented as of this encounter Care Teams Scheduling Coordinator Relationship Specialty Start Date End Date Nuvia Crook ANP [address] [place] [address] PCP - General Family Medicine 06/21/20 Renard Ritchie MD [address] [facility] [address] [place] [address] Nephrology 10/13/24 Eliecer Bob MD [address] [place] [address] Endocrinology 10/13/24 Albert Galaviz MD [address] [place] [address] Cardiology 10/13/24 documented as of this encounter
--- OUTSIDE RECORDS SUMMARY | 2025-07-06 10:37 | XMS_ITS | Encounter Summary ---
Author Organization [employer] Address 75 [facility] 7t [place] [address] Care Team Providers Care Script Editor Name Role Phone Ambreen Nuvia ARSHAD Primary Care Provider Renard Ritchie MD Unavailable Eliecer Bob MD Unavailable [phone] Albert Galaviz MD Unavailable Reason for Visit * Reason Onset Date Comments Appointment 01/01/2023 Encounter Details Date Type Department Care Team (Late st Contact Info) Description 01/01/2023 Telephone [facility] CH[facility] ADULT DENTAL [address] [place], [place] [phone] John Hightower [address] [place] [address] Appointment Social History Tobacco Use Types Packs/Day [...] on waiting list for kidney transplant and [facility] continues to call him to see if his dental work is completed. Pls advise. documented in this encounter Plan of Treatment Upcoming Encounters Date Type Department Care Team (Late st Contact Info) Description 07/27/2025 11:00 AM EDT Office Visit [facility] MEDICINE [address] [place] [address] Nuvia Crook ANP 230 [place] [address] 11/02/2025 9:30 AM EST Clinical Support [facility] CHC MED & PEDS [address] [place] [address] Lynn Armijo, NIMISHA 505 [place] [address] documented as of this encounter Visit Diagnoses Not on filedocumented in this encounter Care Teams Script Editor Relationship Specialty Start Date End Date Nuvia Crook ANP [address] [place] [address] PCP - General Family Medicine 06/21/20 Renard Ritchie MD 100 [facility] [address] [place] [address] Nephrology 10/13/24 Eliecer Bob MD [address] [place] [address] Endocrinology 10/13/24 Albert Galaviz MD [address] [place] [address] Cardiology 10/13/24 documented as of this encounter
--- OUTSIDE RECORDS SUMMARY | 2025-07-06 10:37 | XMS_ITS | Encounter Summary ---
Author Organization [employer] Address 75 [facility] 7t [place] [address] Care Team Providers Care Membership Advisor Name Role Phone Nuvia Crook Primary Care Provider [phone] Renard Ritchie MD Unavailable Eliecer Bob MD Unavailable Albert Galaviz MD Unavailable [phone] Reason for Visit * Reason Comments Med Refill Encounter Details Date Type Department Care Team (Late st Contact Info) Description 10/30/2022 Refill [facility] CHC MED & PEDS [address] [place] [address] Nuvia Crook ANP [address] [place] [address] Dorsalgia, unspecified Social History Tobacco Use Types [...] Department Care Team (Late Contact Info) Description 07/27/2025 11:00 AM EDT Office Visit [facility] MEDICINE 230 [place] [address] Nuvia Crook ANP [address] [place] [address] 11/02/2025 9:30 AM EST Clinical Support [facility] CHC MED & PEDS [address] [place] [address] Lynn Armijo, RN 505 [place] [address] documented as of this encounter Visit Diagnoses Diagnosis Dorsalgia, unspecified documented in this encounter Care Teams Membership Advisor Relationship Specialty Start Date End Date Nuvia Crook ANP [address] [place] [address] PCP - General Family Medicine 06/21/20 Renard Ritchie MD 100 [facility] 200 [place] [address] Nephrology 10/13/24 Eliecer Bob MD [address] [place] [address] Endocrinology 10/13/24 Albert Galaviz MD [address] [place] [address] Cardiology 10/13/24 documented as of this encounter
--- OUTSIDE RECORDS SUMMARY | 2025-07-06 10:37 | XMS_ITS | Encounter Summary ---
Author Organization [employer] Address [address] [place] [address] 7t [place] [address] Care Team Providers Care Survey Operations Director Name Role Phone Nuvia Crook Primary Care Provider [phone] Renard Ritchie MD Unavailable [phone] Eliecer Bob MD Unavailable [phone] Albert Galaviz MD Unavailable Reason for Visit * Reason Comments Med Refill Encounter Details Date Type Department Care Team ([facility] st Contact Info) Description 02/28/2023 Refill [facility] MEDICINE [address] [place], [place] [phone] Nuvia Crook, ANP 230 [place], [place] [phone] Pain Social History Tobacco Use Types Packs/Day [...] Description 07/27/2025 11:00 AM EDT Office Visit [facility] MEDICINE 230 [place] [address] Nuvia Crook ANP [address] [place] [address] 11/02/2025 9:30 AM EST Clinical Support [facility] CHC MED & PEDS [address] [place] [address] Lynn Armijo, NIMISHA 505 [place] [address] documented as of this encounter Visit Diagnoses Diagnosis Pain Generalized pain documented in this encounter Care Teams Survey Operations Director Relationship Specialty Start Date End Date Nuvia Crook ANP 230 [place] [address] PCP - General Family Medicine 06/21/20 Renard Ritchie MD 100 [facility] 200 [place] [address] Nephrology 10/13/24 Eliecer Bob MD 10 [facility] [address] [place] [address] Endocrinology 10/13/24 Albert Galaviz MD [address] [place] [address] Cardiology 10/13/24 documented as of this encounter
--- OUTSIDE RECORDS SUMMARY | 2025-07-06 10:37 | XMS_ITS | Encounter Summary ---
Author Organization [employer] Address 75 [facility] 7t [place] [address] Care Team Providers Care Sales Support Assistant Name Role Phone Nuvia Crook Primary Care Provider [phone] Renard Ritchie MD Unavailable [phone] Eliecer Bob MD Unavailable Albert Galaviz MD Unavailable [phone] Reason for Visit * Reason Comments Med Change Request Encounter Details Date Type Department Care Team ([facility] st Contact Info) Description 04/05/[address] [facility] MEDICINE 230 [place], [place] [phone] Nuvia Crook, ANP 230 [place], [place] [phone] Pain Social History Tobacco Use Types Packs/Day [...] - 04/08/2023 12:[address] [facility] 04/05. Received after hours. documented in this encounter Plan of Treatment Upcoming Encounters Date Type Department Care Team (Late st Contact Info) Description 07/27/2025 11:00 AM EDT Office Visit [facility] MEDICINE 230 [place] [address] Nuvia Crook ANP 230 [place] [address] 11/02/2025 9:30 AM EST Clinical Support [facility] CHC MED & PEDS 505 [place] [address] Lynn Armijo, NIMISHA 505 [place] [address] documented as of this encounter Visit Diagnoses Diagnosis Pain Generalized pain documented in this encounter Care Teams Sales Support Assistant Relationship Specialty Start Date End Date Nuvia Crook ANP 230 [place] [address] PCP - General Family Medicine 06/21/20 Renard Ritchie MD 100 [facility] 200 [place] [address] Nephrology 10/13/24 Eliecer Bob MD 10 [facility] [address] [place] [address] Endocrinology 10/13/24 Albert Galaviz MD 5[address] [place] [address] Cardiology 10/13/24 documented as of this encounter
--- OUTSIDE RECORDS SUMMARY | 2025-07-06 10:37 | XMS_ITS | Encounter Summary ---
Author Organization [employer] Address 75 [facility] 7t [place] [address] Care Team Providers Care Safety Professional Name Role Phone Nuvia Crook Primary Care Provider [phone] Renard Ritchie MD Unavailable Eliecer Bob MD Unavailable Albert Galaviz MD Unavailable Reason for Visit * Reason Comments Med Refill Encounter Details Date Type Department Care Team (Late st Contact Info) Description 07/03/2025 Refill [facility] MEDICINE 230 [place], [place] [phone] Nuvia Crook ANP [address] [place], [place] [phone] Renal hypertension; Chronic diastolic heart failure (CMS/HCC) [...] Description 07/27/2025 11:00 AM EDT Office Visit [facility] MEDICINE 230 [place] [address] Nuvia Crook ANP [address] [place] [address] 11/02/2025 9:30 AM EST Clinical Support [facility] CHC MED & PEDS 505 [place] [address] Lynn Armijo, NIMISHA 505 [place] [address] documented as of this encounter Visit Diagnoses Diagnosis Renal hypertension Chronic diastolic heart failure (CMS/HCC) Chronic diastolic heart failure documented in this encounter Additional Health Concerns Assessment Noted Time PHQ-9 Depression Total Score: 0 09/10/20 24 9:05 AM EST documented as of this encounter Care Teams Safety Professional Relationship Specialty Start Date End Date Nuvia Crook ANP [address] [place] [address] PCP - General Family Medicine 06/21/20 Renard Ritchie MD 100 [facility] 200 [place] [address] Nephrology 10/13/24 Eliecer Bob MD [address] [facility] [address] [facility] [address] [place] [address] Endocrinology 10/13/24 Albert Galaviz MD 5[address] [place] [address] Cardiology 10/13/24 documented as of this encounter
--- OUTSIDE RECORDS SUMMARY | 2025-07-06 10:37 | XMS_ITS | Clinical Summary ---
Author Organization [facility] Address [address] [place] [address] [place] [address] Phone Care Team Providers Care Electronic Heat Seal Operator Name Role Phone Gonzalez Hillman NP Primary Care Provider [phone] Tash Tim MD Unavailable [phone] Social History Tobacco Use Types Packs/Day [...] HEPATITIS C SCREENING 1978 HIV ONE-TIME SCREENING (18-65 YEARS) 1978 COLOGUARD 2005 COLONOSCOPY 2005 COLORECTAL CANCER SCREENING 2005 FIT TEST 2005 FOBT 2005 SIGMOIDOSCOPY 2005 VIRTUAL COLONOSCOPY 2005 PNEUMOCOCCAL VACCINES (50+ years) (2 of 2 - PCV) 04/07/2020 04/07/2019, 03/24/2010 INFLUENZA VACCINE (#1) 2025 , 08/13/2019, 08/25/2018, Additional history exists COVID-19 VACCINE ( season) 2025 10/30/2021, 01/20/2021, 12/23/2020 Adult Td,Tdap Booster 06/09/2031 06/09/2021, 010 RSV VACCINE (1 - 1-dose 75+ series) [...] topic Medical Devices Not on file Insurance [facility] CARE MEDICARE REPLACEMENT [facility] MEDICARE REPLACEMENT [address] [place] [id number] [facility] MEDICARE REPLACEMENT [address] [place], [place] [phone] [facility] MEDICARE REPLACEMENT [facility] MEDICARE REPLACEMENT [facility] MEDICARE REPLACEMENT [facility] MEDICARE REPLACEMENT [facility] MEDICARE REPLACEMENT [facility] MEDICARE REPLACEMENT Care Teams Electronic Heat Seal Operator Relationship Specialty Start Date End Date Gonzalez Hillman NP 230 [place] [address] PCP - General Family Medicine 09/28/19 Tash Tim MD [address] [place] [phone] [email or web address] Referring Physician Hematology and Oncology 09/28/19 Additional Source Comments The information contained in this document represents components of the legal health record. It is not the complete legal health record.[facility]
--- OUTSIDE RECORDS SUMMARY | 2025-07-06 10:37 | XMS_ITS | Encounter Summary ---
Author Organization [employer] Address [address] [facility] [address] [facility] [address] 7t [place] [address] Care Team Providers Care Project Administrator Name Role Phone Ambreen Nuvia ARSHAD Primary Care Provider [phone] Renard Ritchie MD Unavailable [phone] Eliecer Bob MD Unavailable [phone] Albert Galaviz MD Unavailable [phone] Encounter Details Date Type Department Care Team (Late st Contact Info) Description 07/06/2025 Orders Only GENERIC EXTERNAL DATA DEPARTMENT Provider, [...] Description 07/27/2025 11:00 AM EDT Office Visit [facility] MEDICINE 230 [place] [address] Nuvia Crook ANP 230 [place] [address] 11/02/2025 9:30 AM EST Clinical Support [facility] CHC MED & PEDS 505 [place], [place] [phone] Lynn Armijo, RN 505 [place] [address] documented as of this encounter Procedures Procedure Name Priority Date/Time Associated Diagnosis Comments GLUCOSE, WHOLE BLOOD Routine 07/06/2025 9:27 AM EDT documented in this encounter Results * Glucose, Whole Blood (07/06/2025 9:27 AM EDT) Glucose, Whole Blood 99 60 - 115 mg/dL [facility] Comment:METER #: [id number] 0Testing performed in the Endocrinology Department [address] , [address], [facility]. 07/06/2025 9:27 AM EDT 07/06/2025 9:31 AM EDT us Generic External Data Provider LAB BLOOD ORDERAB LES Final Result [facility] [address] [place] [address] [phone] documented in this encounter Visit Diagnoses Not on filedocumented in this encounter Additional Health Concerns Assessment Noted Time PHQ-9 Depression Total Score: 0 09/10/20 9:05 AM EST documented as of this encounter Care Teams Project Administrator Relationship Specialty Start Date End Date Nuvia rCook ANP 230 [place] [address] PCP - General Family Medicine 06/21/20 Renard Ritchie MD 100 [facility] 200 [place] [address] Nephrology 10/13/24 Eliecer Bob MD [address] [place] [address] Endocrinology 10/13/24 Albert Galaviz MD 5[address] [place] [address] Cardiology 10/13/24 documented as of this encounter
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
--- OUTSIDE RECORDS SUMMARY | 2025-07-06 10:37 | XMS_ITS | Encounter Summary ---
Author Organization [employer] Address [address] [facility] 7[address] [place] [address] Care Team Providers Care Mortar Man Name Role Phone Nuvia Crook Primary Care Provider [phone] Renard Ritchie MD Unavailable [phone] Eliecer Bob MD Unavailable Albert Galaviz MD Unavailable Reason for Visit * Reason Comments Med Refill Encounter Details Date Type Department Care Team (Late st Contact Info) Description 12/01/2024 Refill [facility] [address] [place], [place] [phone] Nuvia Crook ANP [address] [place], [place] [phone] End stage renal disease (CMS/HCC); Other chronic [...] Description 07/27/2025 11:00 AM EDT Office Visit [facility] [address] [place] [address] Nuvia Crook ANP [address] [place] [address] 11/02/2025 9:30 AM EST Clinical Support [facility] [address] [place] [address] Lynn Armijo, NIMISHA [address] [place] [address] documented as of this encounter Visit Diagnoses Diagnosis End stage renal disease (CMS/HCC) End stage renal disease Other chronic pain documented in this encounter Additional Health Concerns Assessment Noted Time PHQ-9 Depression Total Score: 0 09/10/20 24 9:05 AM EST documented as of this encounter Care Teams Mortar Man Relationship Specialty Start Date End Date Nuvia Crook ANP [address] [place] [phone] PCP - General Family Medicine 06/21/20 Renard Ritchie MD [address] [facility] [address] [place] [phone] Nephrology 10/13/24 Eliecer Bob MD [address] [address] [place] [phone] Endocrinology 10/13/24 Albert Galaviz MD [address] [place] [address] Cardiology 10/13/24 documented as of this encounter
== END 2025-07-06 09:58 | disposition home or self-care (01) ==
LOC: HO.ENCR 09:13
PROVIDERS: PCP Nurse Practitioner Primary Care; Visit Provider Physician Assistant Medical
DX: E11.649 Type 2 diabetes mellitus with hypoglycemia without coma (principal); Z79.4 Long term (current) use of insulin; E78.1 Pure hyperglyceridemia; I10 Essential (primary) hypertension

== ENCOUNTER → 2025-07-06 09:13 | Outpatient (BNVA) | payer OTHER, SELFPAY | PROVIDERS: PCP Nurse Practitioner Primary Care; Visit Provider Physician Assistant Medical | DX: E11.649 Type 2 diabetes mellitus with hypoglycemia without coma (principal); E11.22 Type 2 diabetes mellitus with diabetic chronic kidney disease; N18.4 Chronic kidney disease, stage 4 (severe); Z99.2 Dependence on renal dialysis; Z79.4 Long term (current) use of insulin; E78.1 Pure hyperglyceridemia; I12.9 Hypertensive chronic kidney disease with stage 1 through stage 4 chronic kidney disease, or unspecified chronic kidney disease | CPT/HCPCS: 82947; 83036; 99212 ==

== ENCOUNTER 2025-07-29 08:47 | Outpatient (REF) | payer OTHER, SELFPAY ==
--- OUTSIDE RECORDS SUMMARY | 2025-07-27 11:00 | XMS_ITS | Encounter Summary ---
Author Organization [employer] Address [address] [place] [address] 7t [place] [address] Care Team Providers Care Dyeing Machine Feeder Name Role Phone Nuvia Corok Primary Care Provider [phone] Renard Ritchie MD Unavailable [phone] Eliecer Bob MD Unavailable [phone] Albert Galaviz MD Unavailable [phone] Reason for Referral * Consultation (Routine) - Authorized Specialty Diagnoses / Procedures Referred By Tyson t Referred To Contact Cardiology Diagnoses Chronic diastolic heart failure (HCC) End stage renal failure on dialysis (CMS/HCC) (HCC) Nuvia Crook ANP [address] [place] [address] Phone: tel: fax: [facility] Referral ID Status Reason Start Date Expiration Date Visits Requested Visits Authorized [id number] Authorized Specialty Services Required 07/27/2025 07/27/2026 1 1 Encounter Details Date Type Department Care Team (Late st Contact Info) Description 07/27/2025 11:00 AM EDT Office Visit [facility] MEDICINE [address] [place], [place] [phone] Nuvia Crook ANP [address] [place], [place] [phone] Type 2 diabetes mellitus with chronic kidney disease on chronic dialysis, with long-term current use of insulin (CMS/HCC) (Primary Dx); 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; Chronic diastolic heart failure (CMS/HCC); PAD (peripheral artery disease) ([facility]); End stage renal failure on dialysis ([facility]); Encounter for immunization; Essential hypertension; Renal hypertension; Acute pain of right knee Social History Tobacco Use [...] AM EDT documented as of this encounter Last Filed Vital Signs Vital Sign Reading Time Taken Comments Blood Pressure 180/90 07/27/2025 11:08 AM EDT Pulse 86 07/27/2025 11:08 AM EDT Temperature 36.8 C (98.2 F) 07/27/2025 11:08 AM EDT Respiratory Rate 20 07/27/2025 11:08 AM EDT Oxygen Saturation 96% 07/27/2025 11:08 AM EDT Inhaled Oxygen Concentration - - Weight 98.1 kg (216 lb 4 oz) 07/27/2025 11:08 AM EDT Height 180.3 cm (5' 11 ) 07/27/2025 11:08 AM EDT Body Mass Index 30.16 07/27/2025 11:08 AM EDT documented in this encounter Plan of Treatment Upcoming Encounters Date Type Department Care Team (Late st Contact Info) Description 08/10/2025 8:00 AM EDT Office Visit [facility] ADULT DENTAL 230 [place] [address] Thomas Tejeda DDS 230 [place], [place] [phone] 11/02/2025 9:30 AM EST Clinical Support [facility] MED & PEDS 505 [place] [address] Lynn rAmijo, RN 505 [place] [address] Scheduled Referrals Name Type Priority Associated Diagnoses Order Schedule Referral to Cardiology Outpatient Referral Routine Chronic diastolic heart failure (CMS/HCC) End stage renal failure on dialysis ([facility]/HCC) Expected: 07/27/2025 (Approximate), Expires: 07/27/2026 documented as of this encounter Procedures Procedure Name Priority Date/Time Associated Diagnosis Comments POCT GLYCATED HEMOGLOBIN, TOTAL Routine 07/27/2025 11:11 AM EDT Type 2 diabetes mellitus with chronic kidney disease on chronic dialysis, with long-term current use of insulin ([facility]) POCT GLUCOSE Routine 07/27/2025 11:10 AM EDT Type 2 diabetes mellitus with chronic kidney disease on chronic dialysis, with long-term current use of insulin ([facility]) documented in this encounter Results * (ABNORMAL) POCT Hgb A1c (07/27/2025 11:11 AM EDT) Hemoglobin A1C 6.1(A) 4.0 - 5.7 % QC Media Lot # [id number] Lot# Expiration Date ,345, Blood 07/27/2025 11:1 1 AM EDT us Nuvia ARSHAD POINT OF CARE TEST ENTER/EDIT OR DERABLES Final Result * POCT Glucose (07/27/2025 11:10 AM EDT) Glucose Blood, POC 147 60 - 200 mg/dL QC Media Lot # [id number] Lot# Expiration Date , Blood Capillary blood specimen / Unknown 07/27/2025 11:10 AM EDT Result Lizett ARSHAD POINT OF CARE TEST ENTER/EDIT OR DERABLES Final Result documented in this encounter Visit Diagnoses Diagnosis Type 2 diabetes mellitus with chronic kidney disease on chronic dialysis, with long-term current use of insulin ([facility])- Primary USP (current) use of opiate analgesic Chronic diastolic heart failure ([facility]) Chronic diastolic heart failure PAD (peripheral artery disease) Unspecified peripheral vascular disease End stage renal failure on dialysis ([facility]/HCC) (HCC) End stage renal disease Encounter for immunization Essential hypertension Unspecified essential hypertension Renal hypertension Acute pain of right knee documented in this encounter Additional Health Concerns Assessment Noted Time PHQ-9 Depression Total Score: 0 09/10/20 24 9:05 AM EST documented as of this encounter Care Teams Dyeing Machine Feeder Relationship Specialty Start Date End Date Nuvia Crook ANP [address] [place] [address] PCP - General Family Medicine 06/21/20 Renard Ritchie MD 100 [facility] 200 [place] [address] Nephrology 10/13/24 Eliecer Bob MD [address] [place] [address] Endocrinology 10/13/24 Albert Galaviz MD 6 [place] [address] Cardiology 10/13/24 documented as of this encounter
--- OUTSIDE RECORDS SUMMARY | 2025-07-29 09:15 | XMS_ITS | Encounter Summary ---
Author Organization [employer] Address [address] [facility] [address] 7t [place] [address] Care Team Providers Care Offbearer Sewer Pipe Name Role Phone Nuvia Crook Primary Care Provider [phone] Renard Ritchie MD Unavailable Eliecer Bob MD Unavailable Albert Galaviz MD Unavailable [phone] Encounter Details Date Type Department Care Team (Late st Contact Info) Description 12/30/2023 Telephone [facility] MEDICINE 230 [place], [place] [phone] Nuvia Crook ANP [address] [place], [place] [phone] Social History Tobacco Use Types Packs/Day Years [...] Description 08/10/2025 8:00 AM EDT Office Visit [facility] ADULT DENTAL 230 [place] [address] Thomas Tejeda DDS 230 [place] [address] 11/02/2025 9:30 AM EST Clinical Support [facility] CHC MED & PEDS 505 [place] [address] Lynn Armijo, RN 505 [place] [address] documented as of this encounter Visit Diagnoses Not on filedocumented in this encounter Additional Health Concerns Assessment Noted Time PHQ-9 Depression Total Score: 0 07/02/20 23 9:05 AM EDT documented as of this encounter Care Teams Offbearer Sewer Pipe Relationship Specialty Start Date End Date Nuvia Crook ANP [address] [place] [address] PCP - General Family Medicine 06/21/20 Renard Ritcihe MD [address] [place] [address] Nephrology 10/13/24 Eliecer Bob MD [address] [place] [address] Endocrinology 10/13/24 Albert Galaviz MD 5[address] [place] [address] Cardiology 10/13/24 documented as of this encounter
--- OUTSIDE RECORDS SUMMARY | 2025-07-29 09:15 | XMS_ITS | Encounter Summary ---
Author Organization [employer] Address [address] [facility] 7t [place] [address] Care Team Providers Care Associate Professor Of Forestry Name Role Phone Nuvia Crook Primary Care Provider Renard Ritchie MD Unavailable Eliecer Bob MD Unavailable Albert Galaviz MD Unavailable Reason for Visit * Reason Onset Date Comments chart prep 07/26/2025 Encounter Details Date Type Department Care Team ([facility] st Contact Info) Description 07/26/2025 Telephone [facility] MEDICINE 230 [place], [place] [phone] Nuvia Crook ANP [address] [place], [place] [phone] chart prep Social History Tobacco Use Types [...] encounter Miscellaneous Notes * Telephone Encounter - Sher Velazquez [place] - 07/26/2025 9:12 AM EDT Chart Prep Labs: done Images: done Referrals: complete Vaccines due: Flu and RSV Screenings: eye exam and HIV screening Overdue care gaps: A1c, Glucose, and Oral health screening documented in this encounter Plan of Treatment Upcoming Encounters Date Type Department Care Team (Late st Contact Info) Description 08/10/2025 8:00 AM EDT Office Visit [facility] ADULT DENTAL 230 [place] [address] Thomas Tejeda DDS [address] [place] [address] 11/02/2025 9:30 AM EST Clinical Support [facility] CHC MED & PEDS 505 [place] [address] Lynn Armijo, RN 505 [place] [address] documented as of this encounter Visit Diagnoses Not on filedocumented in this encounter Additional Health Concerns Assessment Noted Time PHQ-9 Depression Total Score: 0 09/10/20 24 9:05 AM EST documented as of this encounter Care Teams Associate Professor Of Forestry Relationship Specialty Start Date End Date Nuvia Crook ANP [address] [place] [address] PCP - General Family Medicine 06/21/20 Renard Ritchie MD [address] [facility] 200 [place] [address] Nephrology 10/13/24 Eliecer Bob MD 10 [facility] [address] [place] [address] Endocrinology 10/13/24 Albert Galaviz MD [address] [place] [address] Cardiology 10/13/24 documented as of this encounter
--- OUTSIDE RECORDS SUMMARY | 2025-07-29 09:15 | XMS_ITS | Clinical Summary ---
Author Organization [facility] Address [address] [place] [address] [place] [address] Phone Care Team Providers Care Washer Blanket Name Role Phone Gonzalez Hillman NP Primary Care Provider [phone] Tash Tim MD Unavailable [phone] Social History Tobacco Use Types Packs/Day [...] topic Medical Devices Not on file Insurance [facility] ONE CARE MEDICARE REPLACEMENT [facility] MEDICARE REPLACEMENT [address] [place] [id number] [facility] MEDICARE REPLACEMENT [address] [place], [place] [id number] [facility] CARE MEDICARE REPLACEMENT [facility] MEDICARE REPLACEMENT [facility] MEDICARE REPLACEMENT [facility] MEDICARE REPLACEMENT [facility] CARE MEDICARE REPLACEMENT [facility] CARE MEDICARE REPLACEMENT Care Teams Washer Blanket Relationship Specialty Start Date End Date Gonzalez Hillman NP [address] [place] [address] PCP - General Family Medicine 09/28/19 Tash Tim MD [address] [place] [phone] [email or web address] Referring Physician Hematology and Oncology 09/28/19 Additional Source Comments The information contained in this document represents components of the legal health record. It is not the complete legal health record.[facility]
--- OUTSIDE RECORDS SUMMARY | 2025-07-29 09:15 | XMS_ITS | Encounter Summary ---
Author Organization [facility] Address [address] [place] [address] Phone Care Team Providers Care Software Development Project Manager Name Role Phone CrookNuvia MARIANN Primary Care Provider [phone] Encounter Details Date Type Department Care Team ([facility] st Contact Info) Description 07/23/2025 Treatment [facility] [address] [address] Teena Ritchie MD [facility] [address] [address] End stage renal disease; Dependence [...] Dialysis Note - Teena Ritchie MD - 07/23/2025 12:00 AM EDT BASIC NOTE Patient: Jose D Dickens : 1960 Note Author: TEENA RITCHIE MD Service Date: 07/23/2025 Telehealth encounter using audiovisual technology, performed according to state requirements. Appropriate patient consent obtained. This patient was personally seen [id number] for a basic visit as part of routine monthly dialysis care for end stage renal disease. Attending Sanitation Engineer: TEENA RITCHIE Dialysis Location: [facility] Schedule: Shift: OVERVIEW COMMENTS: 05/28/25 cont on/off leg pains ADEQUACY ASSESSMENT Kt/V, Natural Log 1.51 (06/30/25) 1.38 (06/02/25) 1.45 (04/28/25) UREA REDUCTION RATIO (%) 72 (06/30/25) 69 (06/02/25) 71 (04/28/25) BUN 71 (06/30/25) 64 (06/02/25) 51 (04/28/25) BUN Post Dialysis 20 (06/30/25) 20 (06/02/25) 15 (04/28/25) Creatinine 10.69 (06/30/25) 10.27 (06/02/25) 10.53 (04/28/25) Bicarbonate (CO2) 26 (06/30/25) 26 (06/02/25) 25 (04/28/25) Sodium 140 (06/30/25) 138 (06/02/25) 138 (04/28/25) ANEMIA ASSESSMENT Hgb 10.2 (07/16/25) 9.8 (07/14/25) 9.9 (06/30/25) Iron Saturation (TSat) 44 (06/30/25) 28 (06/02/25) 49 (04/28/25) Ferritin 1,261 (06/30/25) 1,286 (06/02/25) 1,337 (04/28/25) Iron 83 (06/30/25) 76 (06/02/25) 88 (04/28/25) TIBC 188 (06/30/25) 269 (06/02/25) 179 (04/28/25) MCV 101.1 (06/30/25) 97.3 (06/02/25) 96.8 (04/28/25) Platelets 104 (06/30/25) 120 (06/02/25) 125 (04/28/25) BMM ASSESSMENT Calcium, Adjusted Total 8.2 07/12/25 7.9 07/05/25 7.8 06/30/25 Calcium 8.2 07/12/25 7.9 07/05/25 7.8 06/30/25 Phosphorus, Serum 3.9 06/30/25 3.9 06/21/25 5.8 06/02/25 Ca*PO4 30.4 06/30/25 45.2 06/02/25 50.2 04/28/25 PTH, Intact 189 04/28/25 149 03/31/25 145 03/08/25 Magnesium 1.9 06/30/25 1.9 06/02/25 2.0 04/28/25 Alkaline Phosphatase 94 06/30/25 83 06/02/25 90 04/28/25 NUTRITION ASSESSMENT Albumin 4.7 07/12/25 4.5 07/05/25 4.4 06/30/25 Potassium 5.6 06/30/25 4.6 06/02/25 4.8 04/28/25 Hemoglobin A1C 5.5 04/28/25 5.2 01/27/25 ADDITIONAL LABS White Blood Cells 9.5 (06/30/25) 5.3 (06/02/25) 6.5 (04/28/25) Cholesterol 286 (04/28/25) 184 (01/27/25) HDL 25 (04/28/25) 20 (01/27/25) LDL-Calc See Comment (04/28/25) See Comment (01/27/25) Triglycerides 1,387 (04/28/25) 757 (01/27/25) ADDITIONAL COMMENT COMMENTS: 03/24/25 doing well 11/30/24 c/o leg pain-- rusty LE angio w bmc vasc next week 12/07/24 cont w leg pains, angio next week 12/16/24 stable 12/25/24 cont leg pains 01/01/25 doing better 01/11/25 leg pain decr 01/18/25 stable 01/22/25 stable 01/27/25 doing ok 01/29/25 feeling better 02/08/25 stable 02/17/25 doing well 02/22/25 stable 03/01/25 stable 03/08/25 stable 03/19/25 has f/u with vasc re: AVF eval 03/29/25: doing ok 04/05/25 same issues 04/13/25 doing ok 04/19/25 stable 09/30/24 doing ok except for legs, has [...] and has f/u vasc bmc 10/07/24 stable stable 05/12/25 s/p avf revison 05/24/25 no new issues 05/31/25 doing ok 06/07/25 cont leg pains on/off 06/14/25 c/o knee pain/swelling 06/21/25 stable, knee better after red 07/05/25 stable 07/23/25 doing ok 07/26/25: awaiting input re: Xplant status at [facility] Signed by: TEENA RITCHIE MD on 07/26/2025 at 10:23:31 AM Transcribed by: TEENA RITCHIE MD on 07/26/2025 at 10:23:31 AM documented in this encounter Plan of Treatment Not on file documented as of this encounter Visit Diagnoses Diagnosis End stage renal disease Dependence on renal dialysis documented in this encounter Care Teams Software Development Project Manager Relationship Specialty Start Date End Date Nuvia Crook NP [address] [place] [address] PCP - General Nurse Practitioner 10/16/21 documented as of this encounter
--- OUTSIDE RECORDS SUMMARY | 2025-07-29 09:15 | XMS_ITS | Encounter Summary ---
Author Organization [employer] Address [address] [facility] 7t [place] [address] Care Team Providers Care Sealing And Canceling Machine Operator Name Role Phone Nuvia Crook Primary Care Provider [phone] Renard Ritchie MD Unavailable Eliecer Bob MD Unavailable Albert Galaviz MD Unavailable [phone] Reason for Visit * Reason Comments Med Refill Encounter Details Date Type Department Care Team (Late st Contact Info) Description 08/07/2024 Refill [facility] CHC MED & PEDS [address] [place] [address] Name, MD David [address] [place] [address] Renal hypertension Social History Tobacco Use Types [...] Description 08/10/2025 8:00 AM EDT Office Visit [facility] ADULT DENTAL [address] [place] [address] Thomas Tejeda DDS 230 [place] [address] 11/02/2025 9:30 AM EST Clinical Support [facility] CHC MED & PEDS [address] [place] [address] Lynn Armijo, RN 505 [place] [address] documented as of this encounter Visit Diagnoses Diagnosis Renal hypertension documented in this encounter Additional Health Concerns Assessment Noted Time PHQ-9 Depression Total Score: 0 07/02/20 23 9:05 AM EDT documented as of this encounter Care Teams Sealing And Canceling Machine Operator Relationship Specialty Start Date End Date Nuvia Crook ANP [address] [place] [address] PCP - General Family Medicine 06/21/20 Renard Ritchie MD 100 [facility] 200 [place] [address] Nephrology 10/13/24 Eliecer Bob MD [address] [address] Endocrinology 10/13/24 Albert Galaviz MD 596 [place] [address] Cardiology 10/13/24 documented as of this encounter
--- OUTSIDE RECORDS SUMMARY | 2025-07-29 09:15 | XMS_ITS | Patient Health Record ---
Author Organization [facility] Address [address] [place] [address] Care Team Providers Care Investigator Narcotics Name Role Phone Kady WAITE, Gonzalez Primary Care Provider Eliecer Langley Unavailable [phone] Reason For Referral No Information Medications Medication [...] Status W/U Status Risk Notes Problem Hyperlipidemia (68236922) Other and unspecified hyperlipidemia (272.4) Active confirmed Low Problem Acute pancreatitis (467644490) Acute pancreatitis (577.0) Active confirmed Plan Of Treatment No Information Insurance Providers Payer Name Payer Address Payer Phone Subscriber Number Group Number Insured Name Patient Relationship to Insured Coverage Start Date Coverage End Date [facility] [address] [address] [place], [place] [id number] [phone] [id number] JELANI JACINTO Self - patient is the insured Medical (General) History Medical History History ICD Code NIDDM hypertension asthma He has had [address] Abrams and Dr. Castillo Denies OR and CVA Proteinuria--sees Dr. Vieira Pancreatitis-acute--due to [...]
--- OUTSIDE RECORDS SUMMARY | 2025-07-29 09:15 | XMS_ITS | Encounter Summary ---
Author Organization [employer] Address [address] [facility] [address] 7t [place] [address] Care Team Providers Care Detonator Maker Name Role Phone Crook Nuvia ARSHAD Primary Care Provider [phone] Renard Ritchie MD Unavailable [phone] Eliecer Bob MD Unavailable [phone] Albert Galaviz MD Unavailable [phone] Encounter Details Date Type Department Care Team (Latest Contact Info) Description 07/27/2025 Travel Social History Tobacco Use Types Packs/Day [...] Description 08/10/2025 8:00 AM EDT Office Visit [facility] ADULT DENTAL 230 [place] [address] Thomas Tejeda DDS [address] [place] [address] 11/02/2025 9:30 AM EST Clinical Support [facility] CHC MED & PEDS 505 [place] [address] Lynn Armijo, RN 505 [place] [address] documented as of this encounter Visit Diagnoses Not on filedocumented in this encounter Additional Health Concerns Assessment Noted Time PHQ-9 Depression Total Score: 0 09/10/20 24 9:05 AM EST documented as of this encounter Care Teams Detonator Maker Relationship Specialty Start Date End Date Nuvia Crook ANP [address] [place] [address] PCP - General Family Medicine 06/21/20 Renard Ritchie MD 100 [facility] 200 [place] [address] Nephrology 10/13/24 Eliecer Bob MD [address] [place] [address] Endocrinology 10/13/24 Albert Galaviz MD 596 [place] [address] Cardiology 10/13/24 documented as of this encounter
--- OUTSIDE RECORDS SUMMARY | 2025-07-29 09:15 | XMS_ITS | Encounter Summary ---
Author Organization [facility] Address [address] [place] [phone] Phone Care Team Providers Care Tax Revenue Officer Name Role Phone CrookNuvia MARIANN Primary Care Provider [phone] Encounter Details Date Type Department Care Team ([facility] st Contact Info) Description 07/26/2025 Treatment [facility] [address] [address] Teena Ritchie MD [facility] [address] [address] End stage renal disease; Dependence [...] Dialysis Note - Teena Ritchie MD - 07/26/2025 12:00 AM EDT BASIC NOTE Patient: Jose D Dickens : 1960 Note Author: TEENA RITCHIE MD Service Date: 07/26/2025 This patient was personally seen [id number] for a basic visit as part of routine monthly dialysis care for end stage renal disease. Attending Consulting Solution Manager: TEENA RITCHIE Dialysis Location: [facility] Schedule: Shift: 1 OVERVIEW COMMENTS: 05/28/25 cont on/off leg pains [...] stable, knee better after red 07/05/25 stable 07/26/25: awaiting input re: Xplant status at [facility] Signed by: TEENA RITCHIE MD on 07/26/2025 at 10:10:38 AM Transcribed by: TEENA RITCHIE MD on 07/26/2025 at 10:10:38 AM documented in this encounter Plan of Treatment Not on file documented as of this encounter Visit Diagnoses Diagnosis End stage renal disease Dependence on renal dialysis documented in this encounter Care Teams Tax Revenue Officer Relationship Specialty Start Date End Date Nuvia Crook NP [address] [place] [address] PCP - General Nurse Practitioner 10/16/21 documented as of this encounter
--- OUTSIDE RECORDS SUMMARY | 2025-07-29 09:15 | XMS_ITS | Clinical Summary ---
Author Organization [employer] Address [address] [place] [address] 7[address] [place] [address] Care Team Providers Care Gastroenterology Professor Name Role Phone Ambreen Kita ARSHAD Primary Care Provider [phone] Renard Ritchie MD Unavailable Eliecer Bob MD Unavailable Albert Galaviz MD Unavailable [phone] Allergies Active Allergy Reactions Criticality Noted Date Comments Nsaids 06/26/2023 ESRD Medications OXcarbazepine (Trileptal) 300 MG tablet Active atorvastatin (Lipitor) 80 MG tablet 021 Active Icosapent Ethyl (Vascepa) 1 g capsule 022 Active perphenazine 2 MG tablet 022 [...] naloxone (Narcan) 4 mg/0.1 mL nasal sprayIndication s:MCC (current) use of opiate analgesic Administer 1 [...] AFTER USING 30 each 3 025 Active torsemide (Demadex) 20 MG tabletIndicatio ns:Renal hypertension,Ch ronic diastolic heart failure (HCC) TAKE 4 TABLETS BY MOUTH TWICE DAILY IN THE MORNING AND THE EVENING 240 tablet 3 025 Active acetaminophen (Tylenol 8 Hour) 650 MG ER tablet Take 1 tablet (650 mg) by mouth every 8 (eight) hours if needed for mild pain. Do not crush, chew, or split. 30 tablet 025 Active oxyCODONE (Roxicodone) 10 MG immediate release tabletIndicatio ns:PAD (peripheral artery disease) Take 1 tablet (10 mg) by mouth every 8 (eight) hours if needed for severe pain. 84 tablet 025 Active lidocaine (Xylocaine) 5 % ointmentIndicat ions:Acute pain of right knee Apply topically to affected joint 3 times daily as needed for pain 50 g 2 Active lidocaine (Xylocaine) 5 % ointment 022 2024 Discontinued(D uplicate order (will not trigger notification to Pharmacy)) torsemide (Demadex) 20 MG tabletIndicatio ns:Renal hypertension,Ch ronic diastolic heart failure (HCC) TAKE 4 TABLETS BY MOUTH TWICE DAILY IN THE MORNING AND THE EVENING 240 tablet 3 025 2024 Discontinued oxyCODONE (Roxicodone) 10 MG immediate release tabletIndicatio ns:PAD (peripheral artery disease) TAKE 1 TABLET BY MOUTH EVERY 8 HOURS NEEDED FOR SEVERE PAIN FOR UP TO 28 DAYS 84 tablet 025 2024 Discontinued(R eorder (will not trigger notification to Pharmacy)) amoxicillin (Amoxil) 500 MG capsule Take 1 capsule (500 mg) by mouth every 12 (twelve) hours for 7 days. 14 capsule 025 2024 Active Problems Problem Noted Date Diagnosed Date Periodontal disease 07/06/2025 Arthritis of right knee 11/30/2024 MCC (current) use of opiate analgesic 08/28 Acute kidney injury superimposed on chronic kidn ey disease 06/20/2023 Acute on chronic heart failu re with preserved ejection fraction (HFpEF) 06/20/2023 Anemia 06/20/2023 Arthritis of hand, right 06/20/2023 Chronic disease 06/20/2023 Class 1 obesity 06/20/2023 Essential hypertension 06/20/2023 Numbness and tingling in right hand 06/20/2023 PAD (peripheral artery disease) 06/20/2023 Severe obesity (CMS/HCC) 06/20/2023 Thrombocytopenia 06/20/2023 Trigger finger, right middle finger 06/20/2023 Uncontrolled type 2 diabetes mellitus 06/20/2023 Varicose veins of right lower extremity with inf lammation 06/20/2023 Duodenal ulcer disease 06/20/2023 End stage renal failure on dialysis ([facility]) Overview (06/20/2023): MWF [place] Chronic dental pain 01/31/2023 Chronic diastolic heart failure 11/06/2022 Stage 5 chronic kidney disease ([facility]) 021 Duodenal ulcer 08/16/2021 Chronic kidney disease, stage 4 (severe) ([facility]/ C) 07/25/2021 End stage renal disease 01/23/2021 IgG monoclonal [...] kidney disease 08/10/2015 Overview (09/10/2024): Follows w/ [facility] [place] Their plan 06/2024: Continue Toujeo 12 [...] Encounters Date Type Department Care Team Description 07/27/2025 11:00 AM EDT Office Visit [facility] [address] [place] [phone] Kita Yoon ANP Type 2 diabetes mellitus with chronic kidney disease on chronic dialysis, with long-term current use of insulin ([facility]) (Primary Dx); MCC (current) use of opiate analgesic; Chronic diastolic heart failure ([facility]); PAD (peripheral artery disease) ([facility]); End stage renal failure on dialysis ([facility]); Encounter for immunization; Essential hypertension; Renal hypertension; Acute pain of right knee 07/27/2025 Travel 07/26/[address] [address] Kita Yoon ANP chart prep 07/19/2025 Refill [facility] [address] [place] [address] Lynn Armijo RN PAD (peripheral artery disease) ([facility]) 07/19/[address] [address] Kita Yoon ANP Med Refill 07/06/2025 10:00 AM EDT Office Visit [facility] [address] [place] [address] Thomas Tejeda DDS Chronic dental pain (Primary Dx); Periodontal disease 07/06/2025 Orders Only GENERIC EXTERNAL DATA DEPARTMENT Provider, Generic External Data 07/03/2025 Refill [facility] [address] [place] [phone] Kita Yoon ANP Renal hypertension; Chronic diastolic heart failure ([facility]) 07/01/2025 9:30 AM EDT Clinical Support [facility] [address] [place] [address] Lynn Armijo, project manager finance low back pain, unspecified back pain laterality, unspecified whether sciatica present 07/01/2025 Travel 06/17/2025 Refill [facility] [address] [place] [address] Kita Yoon ANP PAD (peripheral artery disease) ([facility]) 05/29/2025 Orders Only [facility] External Provider, [facility] 05/18/2025 Refill [facility] [address] [place] [address] Kita Yoon ANP PAD (peripheral artery disease) ([facility]) from Last 3 Months Immunizations Immunization Administration Dates Next Due Hep B, adult 06/05/2023,,03/14/2022,02/19,01/05/2022 Influenza injectable quadriv alent IIV4 with preservative 08/02/2023,08/25/2018,08/16/2016,08/10 Influenza injectable quadriv alent preservative free 07/24/2022,07/21/2021,08/13/2019 Influenza, IIV3, injectable 08/18/2014 Influenza, Split (incl. akil fied surface antigen) 07/15/2013,10/13/2012 Influenza, seasonal, injecta ble, preservative free 07/27/2025,09/10/2024 Moderna Covid-19 Vaccine 12+ 04/10/2022, 10/30/2021,01/20/2021,12/23 Moderna Covid-19 Vaccine 6+ Bivalent 11/06/2022 Novel [id number] 10/03/2016 Pfizer Covid-19 Vaccine 12+ 09/10/2024 Pneumococcal Conjugate PCV 20 02/04/2024 Pneumococcal Polysaccharide PPSV23 04/07/2019, TD (adult), 2 Lf tetanus tox oid, preservative free, adsorbed 06/09/2021 Tdap 09/04/2010 Zoster, Recombinant 06/08/2021,04/06/2021 Social History Tobacco Use Types Packs/Day Years Used Date Smoking Tobacco: Former Cigarettes 1 993 - 2022 Passive Smoke Exposure: Never Smokeless [...] Mass Index 30.16 07/27/2025 11:08 AM EDT Plan of Treatment Upcoming Encounters Date Type Department Care Team (Late st Contact Info) Description 08/10/2025 8:00 AM EDT Office Visit [facility] [address] [place] [address] Thomas Tejeda DDS [address] [place] [address] 11/02/2025 9:30 AM EST Clinical Support [facility] [address] [place] [address] Lynn Armijo, RN [address] [place] [address] Health Maintenance Due Date Last Done Comments CT Colonography 1960 Dental Prophylaxis 1960 FIT DNA/Cologuard 1960 FIT 1960 FOBT 1960 HIV Screening 1960 Sigmoidoscopy 1960 Hepatitis C Screening 1978 RSV Patients and Patients Aged 60 years or older (1 - Risk 60-74 years 1-dose series) 2020 Dental Oral Exam 05/28/2023 11/27/2022 Lipid Panel 06/04/2024 06/04/2023, 05/28, 06/07/2022, Additional history exists Dental X-Ray: Bitewings 10/11/2024 10/10/2023, 11/27 Alcohol/Substance Use Screening 09/10/2025 09/10/2024 Depression Screening 09/10/2025 09/10/2024, 09/10/20 24 SDOH Screening 09/10/2025 09/10/2024 Diabetes: Hemoglobin A1C 10/26/2025 025, 02/20/2025, 09/10/2024, Additional history exists Eye Exam 02/11/2026 Diabetes: Foot Exam 03/30/2026 03/30/2025, 03/30/2025, 03/30/2025 Disability Screening 03/30/2026 03/30/2025 Tobacco Screening 07/27/2026 07/27/2025 Dental X-Ray: Full Mouth 07/07/2028 07/06/2025 DTaP/Tdap/Td Vaccines (3 - Td or Tdap) 06/09/2031 06/09/2021, 09/04/2010 Colonoscopy 05/21/2033 Colorectal Cancer Screening 05/21/2033 Zoster Vaccines Completed 06/08/2021, 04/06/2021 Hepatitis B Vaccines Completed 06/05/2023, 06/13/2022, 03/14/2022, Additional history exists Pneumococcal Vaccine: 50+ Years Completed 02/04/2024, 04/07/2019, 03/24/2010 COVID-19 Vaccine Completed 09/10/2024, , 11/06/2022, Additional history exists Influenza Vaccine Completed 07/27/2025, , 08/02/2023, Additional history exists HIB Vaccines Aged Out [...] topic Meningococcal Vaccine Aged Out No miller carols eligible based on patient's age to complete [...] dialysis, with long-term current use of insulin ([facility]) POCT GLUCOSE Routine 07/27/2025 11:10 AM EDT Type 2 diabetes mellitus with chronic kidney disease on chronic dialysis, with long-term current use of insulin ([facility]) CASE PRESENTATION, DETAILED AND EXTENSIVE TREATMENT PLANNING Routine 07/06/2025 10:00 AM EDT PANORAMIC RADIOGRAPHIC IMAGE Routine 07/06/2025 10:00 AM EDT LIMITED ORAL EVALUATION - PROBLEM FOCUSED Routine 07/06/2025 10:00 AM EDT GLUCOSE, WHOLE BLOOD Routine 07/06/2025 9:27 AM [...] VIEWS RIGHT Routine 05/29/2025 9:14 AM EDT BITEWING - SINGLE RADIOGRAPHIC IMAGE Routine 10/10/2023 11:30 AM EST Periodontal disease Symptomatic irreversible pulpitis LIPID PANEL, STANDARD Routine 06/04/2023 8:24 AM EDT PERIODIC ORAL EVALUATION - ESTABLISHED PATIENT Routine 11/27/2022 1:00 PM EST from Last 3 Months or Most Recently Relevant to Health Maintenance Results * (ABNORMAL) POCT Hgb A1c (07/27/2025 11:11 AM EDT) Hemoglobin A1C 6.1(A) 4.0 - 5.7 % QC Media Lot # [id number] Lot# Expiration Date [id number] Blood 07/27/2025 11:1 1 AM EDT [facility] POINT OF CARE TEST ENTER/EDIT OR DERABLES Final Result * POCT Glucose (07/27/2025 11:10 AM EDT) [facility] Glucose Blood, POC 147 60 - 200 mg/dL QC Media Lot # [id number] Lot# Expiration Date ,[id number] Blood Capillary blood specimen / Unknown 07/27/2025 11:10 AM EDT [facility] POINT OF CARE TEST ENTER/EDIT OR DERABLES Final Result * Glucose, Whole Blood (07/06/2025 9:27 AM EDT) [facility] Glucose, Whole Blood 99 60 - 115 mg/dL [facility] Comment:METER #: [id number] 0Testing performed in the Endocrinology Department [address] , [address], [facility]. 07/06/2025 9:27 AM EDT 07/06/2025 9:31 AM EDT Generic External Data Provider LAB BLOOD ORDERAB LES Final Result Performing Organization Address City/State/[facility] Co de Phone Number [facility] [address] [place] [phone] * (ABNORMAL) POCT KATHY-14 Urine Drug Screen (07/01/2025 9:30 AM EDT) [facility] THC Negative Negative Cocaine Screen, Urine Negative [...] 9:30 AM EDT Internal Pass Control Lot# [id number] Exp: 08-27-26 us Kita ARSHAD POINT OF CARE TEST ENTER/EDIT OR DERABLES Final Result * XR Knee 4+ Views Right (06/14/2025 11:46 AM EDT) Only the most recent of2 resultswithin the time period is included. Anatomical Region Laterality Modality Lower Extremities, Knee Right [facility] 06/14/2025 11:4 6 AM EDT Narrative 06/14/2025 12:57 PM EDT [place] [address] XRay Report Signed Patient: Jose D Dickens MR#: [id number] : 1960 Acct:[id number] Age/Sex: 64 / M ADM Date: 06/14/25 Loc: .ED Attending Dr: Ordering Physician: Destiny Brown DO Date of Service: 06/14/25 Procedure(s): XR knee RT 4V Accession Number(s): [id number] cc: Destiny Brown DO; KITA YOON NP [...] 06/14/25 1254 DD/ 1146 TD/TT: 06/14/25 1250 Airborne Operations Superintendent: Procedure Note Donotuseinterpreter, Image - 06/14/[address] [address] XRay Report Signed Patient: Jose D DickensMR#: [id number] : 1960Acct:[id number] Age/Sex: 64 / MADM Date: 06/14/25 Loc: HO.ED Attending Dr: Ordering Physician: Destiny Brown DO Date of Service: 06/14/25 Procedure(s): XR knee RT 4V Accession Number(s): [id number] cc: Destiny Brown DO; KITA YOON NP [...] 06/14/25 1254 DD/ 1146 TD/TT: 06/14/25 1250 Airborne Operations Superintendent: [facility] External Provider IMG XR PROCEDURES Final Result * (ABNORMAL) VENOUS BLOOD GAS (05/29/2025 9:50 AM EDT) VBG pH 7.47(H) 7.32 - 7.43 [facility] Comment:METER #: [id number] additional_comment: Ramon burton VBG PCO2 47 mmHg [facility] Comment:METER #: [id number] additional_comment: Ramon burton VBG PO2 69 mmHg [facility] Comment:METER #: [id number] additional_comment: Ramon burton VBG Base Excess 9.6 mmol/L [facility] Comment:METER #: [id number] additional_comment: Ramon HUIG HCO3 34(H) 22 - 26 mmol/L [facility] Comment:METER #: [id number] additional_comment: Ramon burton O2 Sat, Mario 95.0 % [facility] Comment:METER #: [id number] additional_comment: Ramon burton 05/29/2025 9:50 AM EDT 05/29/2025 9:53 AM EDT us Generic External Data Provider LAB BLOOD ORDERAB LES Final Result [facility] [address] [place] [phone] * (ABNORMAL) CBC auto differential (05/29/2025 9:45 AM EDT) White Blood Count 6.3 4.8 - 10.8 X10*3/uL [facility] Red Blood Count 3.06(L) 4.60 - 5.80 X10*6/uL [facility] Hemoglobin 10.3(L) 14.0 - 18.0 g/dl [facility] Hematocrit 28.7(L) 42.0 - 52.0 % [facility] Mean Corpuscular Volume 93.8 80.0 - 98.0 fL [facility] Mean Corpuscular Hemoglobin 33.7(H) 27.0 - 33.0 pg [facility] Mean Corpuscular HGB Conc 35.9 31.0 - 36.0 g/dl [facility] Red Cell Distribution Width 14.8 11.0 - 16.0 % [facility] Platelet Count 106(L) 160 - 400 X10*3/uL [facility] Mean Platelet Volume 11.4 9.4 - 12.4 fL [facility] Neutrophils Percent Auto 75.7(H) 45 - 73 % [facility] Imm Gran Pct Auto 0.5(H) 0.0 - 0.4 % [facility] Lymphocytes Percent Auto 15.7(L) 20 - 40 % [facility] Monocytes Percent Auto 5.1 2 - 11 % [facility] Eosinophils Percent Auto 2.7 0 - 4 % [facility] Basophils Percent Auto 0.3 0 - 2 % [facility] NRBC Pct Auto 0.0 0.0 - 0.2 /100WBC [facility] Neutrophils Absolute Auto 4.8 2.0 - 8.3 x10*3/uL [facility] Imm Gran Abs Auto 0.03 0.00 - 0.03 X10*3/uL [facility] Lymphocytes Absolute Auto 1.0(L) 1.2 - 4.9 X10*3/uL [facility] Monocytes Absolute Auto 0.3 0.1 - 1.2 X10*3/uL [facility] Eosinophils Absolute Auto 0.2 0.0 - 0.4 X10*3/uL [facility] Basophils Absolute Auto 0.0 0.0 - 0.2 X10*3/uL [facility] NRBC Abs Auto 0.000 0.0 - 0.012 X10*3/uL [facility] 05/29/2025 9:45 AM EDT 05/29/2025 9:48 AM EDT us Generic External Data Provider LAB BLOOD ORDERAB LES Final Result [facility] [address] [place] [phone] * Magnesium (05/29/2025 9:45 AM EDT) Magnesium 1.7 1.6 - 2.6 mg/dL [facility] 05/29/2025 9:45 AM EDT 05/29/2025 9:48 AM EDT us Generic External Data Provider LAB BLOOD ORDERAB LES Final Result [facility] [address] [place] [phone] * (ABNORMAL) Basic Metabolic Panel (05/29/2025 9:45 AM EDT) Sodium 139 135 - 145 mmol/L [facility] Potassium 4.9 3.3 - 5.1 mmol/L [facility] Chloride 96 96 - 108 mmol/L [facility] Carbon Dioxide 28 22 - 29 mmol/L [facility] Anion Gap 20 12 - 20 [facility] Urea Nitrogen (BUN) 43(H) 9 - 16 mg/dL [facility] Creatinine, Serum 9.00(HH) 0.5 - 1.4 mg/dL [facility] Comment:Critical value for C RE: Results called to and read chany: TIGIST Person calling: TEO Date: 05-29-25 Time: 1013 Creatinine Clr Calc Pharmacy 9.8 [facility] Comment:eGFR (calculated fro m the MDRD study equation) and eCrCl(calculated from the Cockcroft-Gault equation) are based ondifferent parameters and may not yield comparable results.If eCrCl result is absurd, please check patient'sheight/weight. Estimated Glomerular Filt Rate 6 [facility] Comment:Chronic Kidney Disea se: Estimated GFR < 60 mL/min/1.56j7Xkyfmb Kidney Disease: Estimated GFR < 15 mL/min/1.73m2 Glucose 196(H) 60 - 115 mg/dL [facility] Calcium 8.4 8.4 - 10.2 mg/dL [facility] 05/29/2025 9:45 AM EDT 05/29/2025 9:48 AM EDT us Generic External Data Provider LAB BLOOD ORDERAB LES Final Result Performing Organization Address [facility] Co de Phone Number [facility] [address] [place] [phone] * Lipid Panel, Standard (06/04/2023 8:24 AM EDT) Triglycerides 1,669 mg/dL [facility] Comment:Lipemic SpecimenDesi rable Triglyceride: less than 150 mg/dLBorderline High Triglyceride 150-199 mg/dLHigh Triglyceride: 200-499 mg/dLVery High Triglyceride: greater than or equal to 5OO mg/dL Cholesterol 347 mg/dL [facility] Comment:Lipemic SpecimenDesi rable Cholesterol: less than 200 mg/dLBorderline High Cholesterol: 200-239 mg/dLHigh Cholesterol: greater than 239 mg/dL LDL Cholesterol Calculated TNP mg/dl [facility] Comment:Unable to calculate the LDL. The formula of Friedwald,Stack, and Zeina is only valid if the triglycerides areless than 400 mg/dl. HDL Cholesterol 22 mg/dL [facility] Comment:Lipemic SpecimenDesi rable HDL: greater than 40 mg/dL Note: This HDL assay may give artificially low results in patients with liver disease. 06/04/2023 8:24 AM EDT 06/04/2023 9:09 AM EDT [facility] External Provider LAB BLO OD ORDERABLES Final Result Performing Organization Address [facility] Co de Phone Number [facility] [address] [place] [phone] [phone] from Last 3 Months or Most Recently Relevant to Health Maintenance Insurance [employer] ONE CARE < 65 DENTAL - [facility] Care Teams Gastroenterology Professor Relationship Specialty Start Date End Date Kita Yoon ANP [address] [place], [place] PCP - General Family Medicine 06/21/20 Renard Ritchie MD [address] [facility] [address] [place] [phone] Nephrology 10/13/24 Eliecer Bob MD [address] [place] [phone] Endocrinology 10/13/24 Albert Galaviz MD [address] [place] [address] Cardiology 10/13/24
--- OUTSIDE RECORDS SUMMARY | 2025-07-29 09:15 | XMS_ITS | Encounter Summary ---
Author Organization [employer] Address [address] [facility] [address]t [place] [address] Care Team Providers Care Train Driver Name Role Phone Nuvia Crook Primary Care Provider Renard Ritchie MD Unavailable Eliecer Bob MD Unavailable Albert Galaviz MD Unavailable Reason for Visit * Reason Onset Date Comments Med Refill 07/19/2025 Encounter Details Date Type Department Care Team (Late st Contact Info) Description 07/19/2025 Telephone [facility] [address] [place], [place] [phone] Nuvia Crook ANP [address] [place], [place] [phone] Med Refill Social History Tobacco Use Types [...] encounter Miscellaneous Notes * Telephone Encounter - Nasir Connolly - 07/19/2025 8:14 AM EDT TC from pt requesting medication refill. Medications needing refill : oxyCODONE (Roxicodone) 10 MG immediate release tablet To be sent to: [facility] documented in this encounter Plan of Treatment Upcoming Encounters Date Type Department Care Team (Late st Contact Info) Description 08/10/2025 8:00 AM EDT Office Visit [facility]ULT [facility] [address] [place] [address] Thomas Tejeda DDS [address] [place] [address] 11/02/2025 9:30 AM EST Clinical Support [facility] [address] [place] [address] Lynn Armijo, RN [address] [place] [address] documented as of this encounter Visit Diagnoses Not on filedocumented in this encounter Additional Health Concerns Assessment Noted Time PHQ-9 Depression Total Score: 0 09/10/20 24 9:05 AM EST documented as of this encounter Care Teams Train Driver Relationship Specialty Start Date End Date Nuvia Crook ANP [address] [place] [address] PCP - General Family Medicine 06/21/20 Renard Ritchie MD 100 [facility] [address] [place] [address] Nephrology 10/13/24 Eliecer Bob MD [address] [address] Endocrinology 10/13/24 Albert Galaviz MD [address] [place] [address] Cardiology 10/13/24 documented as of this encounter
--- OUTSIDE RECORDS SUMMARY | 2025-07-29 09:16 | XMS_ITS | Encounter Summary ---
Author Organization [employer] Address [address] [place] [address] 7t [place] [address] Care Team Providers Care Hospitality Internship Name Role Phone Nuvia Crook Primary Care Provider [phone] Renard Ritchie MD Unavailable [phone] Eliecer Bob MD Unavailable Albert Galaviz MD Unavailable [phone] Reason for Visit * Reason Comments Med Refill Encounter Details Date Type Department Care Team ([facility] st Contact Info) Description 02/28/2023 Refill [facility] [address] [place], [place] [phone] Nuvia Crook, ANP [address] [place], [place] [phone] Pain Social History Tobacco Use Types Packs/Day [...] Description 08/10/2025 8:00 AM EDT Office Visit [facility]ULT [facility] [address] [place] [address] Thomas Tejeda DDS [address] [place] [address] 11/02/2025 9:30 AM EST Clinical Support [facility] [address] [place] [address] Lynn Armijo, RN [address] [place] [address] documented as of this encounter Visit Diagnoses Diagnosis Pain Generalized pain documented in this encounter Care Teams Hospitality Internship Relationship Specialty Start Date End Date Nuvia Crook ANP [address] [place] [address] PCP - General Family Medicine 06/21/20 Renard Ritchie MD 100 [facility] [address] [place] [address] Nephrology 10/13/24 Eliecer Bob MD [address] [place] [phone] Endocrinology 10/13/24 Albert Galaviz MD [address] [place] [address] Cardiology 10/13/24 documented as of this encounter
--- OUTSIDE RECORDS SUMMARY | 2025-07-29 09:16 | XMS_ITS | Encounter Summary ---
Author Organization [employer] Address [address] [facility] 7t [place] [address] Care Team Providers Care Technician Automated Equipment Name Role Phone Ambreen Nuvia ARSHAD Primary Care Provider [phone] Renard Ritchie MD Unavailable [phone] Eliecer Bob MD Unavailable Albert Galaviz MD Unavailable [phone] Reason for Visit * Reason Onset Date Comments Appointment 01/01/2023 Encounter Details Date Type Department Care Team (Late st Contact Info) Description 01/01/2023 Telephone [facility] ADULT [facility]AL [address] [place], [place] [phone] John Hightower [address] [place] [address] Appointment Social History Tobacco Use Types Packs/Day [...] on waiting list for kidney transplant and [facility] continues to call him to see if his dental work is completed. Pls advise. documented in this encounter Plan of Treatment Upcoming Encounters Date Type Department Care Team (Late st Contact Info) Description 08/10/2025 8:00 AM EDT Office Visit [facility] ADULT DENTAL [address] [place] [address] Thomas Tejeda DDS [address] [place] [address] 11/02/2025 9:30 AM EST Clinical Support [facility] 505 [place] [address] Lynn Armijo, RN 505 [place] [address] documented as of this encounter Visit Diagnoses Not on filedocumented in this encounter Care Teams Technician Automated Equipment Relationship Specialty Start Date End Date Nuvia Crook ANP 230 [place] [address] PCP - General Family Medicine 06/21/20 Renard Ritchie MD 100 [facility] 200 [place] [address] Nephrology 10/13/24 Eliecer Bob MD [address] [place] [address] Endocrinology 10/13/24 Albert Galaviz MD 5[address] [place] [address] Cardiology 10/13/24 documented as of this encounter
--- OUTSIDE RECORDS SUMMARY | 2025-07-29 09:16 | XMS_ITS | Encounter Summary ---
Author Organization [employer] Address [address] [facility] 7t [place] [address] Care Team Providers Care Locker Plant Attendant Name Role Phone Nuvia Crook Primary Care Provider Renard Ritchie MD Unavailable [phone] Eliecer Bob MD Unavailable Albert Galaviz MD Unavailable Reason for Visit * Reason Comments Med Refill Encounter Details Date Type Department Care Team (Late st Contact Info) Description 10/30/2022 Refill [facility]EDS [address] [place] [address] Nuvia Crook, ANP 230 [place] [address] Dorsalgia, unspecified Social History Tobacco Use Types [...] Description 08/10/2025 8:00 AM EDT Office Visit [facility] ADULT DENTAL [address] [place] [address] Thomas Tejeda DDS 230 [place], [place] [phone] 11/02/2025 9:30 AM EST Clinical Support [facility] [address] [place] [address] Lynn Armijo, RN 505 [place] [address] documented as of this encounter Visit Diagnoses Diagnosis Dorsalgia, unspecified documented in this encounter Care Teams Locker Plant Attendant Relationship Specialty Start Date End Date Nuvia Crook ANP [address] [place] [address] PCP - General Family Medicine 06/21/20 Renard Ritchie MD 100 [facility] 200 [place] [address] Nephrology 10/13/24 Eliecer Bob MD [address] [place] [address] Endocrinology 10/13/24 Albert Galaviz MD 596 [place] [address] Cardiology 10/13/24 documented as of this encounter
--- OUTSIDE RECORDS SUMMARY | 2025-07-29 09:16 | XMS_ITS | Clinical Summary ---
Author Organization [facility] Address [address] [place] [address] Phone Care Team Providers Care Washer Blanket Name Role Phone Ambreen Nuvia Wiley NP Primary Care Provider [phone] Allergies No known active allergies Medications aspirin [...] 01/2021 Essential hypertension 12/29/202005/29 Hypertensive heart disease [facility] congestive heart failure 12/29/2020 05/29/2021 Morbid obesity 12/29/2020 05/29/2021 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/29/2020 05/29/2021 Sleep apnea 12/29/2020 05/29/2021 Type 2 diabetes mellitus 12/29/202011/2020 Encounters Date Type Department Care Team Description 07/26/2025 Treatment [facility] [address] [address] Renard Ritchie MD End stage renal disease; Dependence on renal dialysis 07/23/2025 Treatment [facility] [address] [address] Renard Ritchie MD End stage renal disease; Dependence on renal dialysis 07/05/2025 Treatment [facility] [address] [address] Renard Ritchie MD End stage renal disease; Dependence on renal dialysis 06/28/2025 Treatment [facility] [address] [address] Renard Ritchie MD End stage renal disease; Dependence on renal dialysis 06/25/2025 Refill [facility] [address] [address] Renard Ritchie MD 06/21/2025 Treatment [facility] [address] [phone] Renard Ritchie MD End stage renal disease; Dependence on renal dialysis 06/14/2025 Treatment [facility] [address] [phone] Renard Ritchie MD End stage renal disease; Dependence on renal dialysis 06/07/2025 Treatment [facility] [address] [phone] Renard Ritchie MD End stage renal disease; Dependence on renal dialysis 05/31/2025 Treatment [facility] [address] [phone] Renard Ritchie MD End stage renal disease; Dependence on renal dialysis 05/28/2025 Treatment [facility] [address] [phone] Renard Ritchie MD End stage renal disease; Dependence on renal dialysis 05/28/2025 Treatment [facility] 200 [place] [address] Renard Ritchie MD End stage renal disease; Dependence on renal dialysis 05/24/2025 Treatment [facility] [address] [phone] Renard Ritchie MD End stage renal disease; Dependence on renal dialysis 05/12/2025 Treatment [facility] [address] [phone] Renard Ritchie MD End stage renal disease; Dependence on renal dialysis 05/03/2025 Treatment [facility] [address] [phone] Renard Ritchie MD End stage renal disease; Dependence on renal dialysis 04/28/2025 Treatment [facility] [address] [phone] Renard Ritchie MD End stage renal disease; [...] Visual Foot Exam 11/28/2020 Diabetes: Hemoglobin A1C 10/26/2025 025, 04/28/2025, 01/27/2025, Additional history exists Pneumococcal Vaccine: 50+ Years Completed 02/04/2024, 04/07/2019, 03/24/2010 Pneumococcal Vaccine: Peds ( 0 to 5 Years) and At-Risk Patients (6 to 49 Years) Discontinued 02/04/2024, 04/07/2019, 03/24/2010 Influenza Vaccine Completed 07/27/2025, , 08/02/2023, Additional history exists Procedures Procedure Name Priority Date/Time Associated Diagnosis Comments HEMOGLOBIN Routine 07/16/2025 3:00 AM EDT HEMOGLOBIN Routine 07/14/2025 3:00 AM EDT LIH (HC) Routine 07/12/2025 3:00 AM EDT CALCIUM, ADJUSTED W ALBUMIN Routine 07/12/2025 3:00 AM EDT CALCIUM, ADJUSTED W ALBUMIN Routine 07/05/2025 3:00 AM EDT LIH (HC) Routine 07/05/2025 3:00 AM EDT FERRITIN Routine 06/30/2025 3:00 AM EDT MAGNESIUM [...] URR (HC) Routine 04/28/2025 3:00 AM EDT from Last 3 Months Results * (ABNORMAL) Hemoglobin (07/16/2025 3:00 AM EDT) Only the most recent of7 resultswithin the time period is included. Pathologist [facility] Hgb 10.2(L) 13.7 - 17.5 g/dL [facility] Hemoglobin x 3 30.6(L) 41.1 - 52.5 g/dL [facility] 07/16/2025 3:00 AM EDT 07/17/2025 12:59 PM EDT us Renard Ritchie MD LAB BLOOD ORDERABLES Final Re sult Performing Organization Address City/[facility]/ZIP Co de Phone Number [facility] [address] [place] [address] * (ABNORMAL) LIH (07/12/2025 3:00 AM EDT) Only the most recent of8 resultswithin the time period is included. Pathologist [facility] Lipemia +(A) Normal [facility] Icterus Normal Normal [facility] Hemolysis Normal Normal [facility] 07/12/2025 3:00 AM EDT 07/13/2025 2:03 PM EDT us Renard Ritchie MD LAB [id number] SOLICITED RESULTS Final Result Performing Organization Address City/[facility]/ZIP Co de Phone Number [facility] [address] [place] [address] * (ABNORMAL) Calcium, Adjusted w Albumin (07/12/2025 3:00 AM EDT) Only the most recent of3 resultswithin the time period is included. Calcium 8.2(L) 8.6 - 10.3 mg/dL [facility] Albumin 4.7 3.6 - 5.4 g/dL [facility] Calcium, Adjusted Total 8.2(L) 8.6 - 10.3 mg/dL [facility] 07/12/2025 3:00 AM EDT 07/13/2025 2:03 PM EDT Renard Ritchie MD LAB BLOOD ORDERABLES Final Re sult Performing Organization Address City/[facility]/ZIP Co de Phone Number [facility] [address] [place] [address] * (ABNORMAL) Kt/V Natural Log, URR (06/30/2025 3:00 AM EDT) Only the most recent of3 resultswithin the time period is included. Treatment [...] 3:00 AM EDT 07/01/2025 3:48 PM EDT Renard Ritchie MD LAB [id number] SOLICITED RESULTS Final Result Performing Organization Address City/[facility]/ZIP Co de Phone Number [facility] [address] [place] [address] * (ABNORMAL) Calcium Phosphorus Product, Adjusted (06/30/2025 [...] PM EDT us Renard Ritchie MD LAB [id number] SOLICITED RESULTS Final Result Performing Organization Address [facility] de Phone Number [facility] [address] [place] [address] * BUN/CREATININE RATIO (06/30/2025 3:00 AM EDT) Only the most recent of3 resultswithin the time period is included. BUN/Creatinine Ratio 6.6 <=23.0 [facility] 06/30/2025 3:00 AM EDT 07/01/2025 3:57 PM EDT us Renard Ritchie MD LAB [id number] SOLICITED RESULTS Final Result Performing Organization Address [facility] Co de Phone Number [facility] [address] [place] [address] * (ABNORMAL) TSAT (06/30/2025 3:00 AM EDT) [...] ORDERABLES Final Re sult Performing Organization Address City/[facility]/ZIP Co de Phone Number [facility] [address] [place] [address] * (ABNORMAL) CBC and Differential (06/30/2025 3:00 AM EDT) Only the most recent of3 resultswithin the time period is included. DIFFERENTIAL MANUAL, 2 Not Indicated [facility] White [...] ORDERABLES Final Re sult Performing Organization Address City/[facility]/ZIP Co de Phone Number [facility] [address] [place] [address] * ALT (06/30/2025 3:00 AM EDT) Only the most recent of3 resultswithin the time period is included. ALT (SGPT) 22 10 - 49 U/L [facility] 06/30/2025 3:00 AM EDT 07/01/2025 3:57 PM EDT Renard Ritchie MD LAB BLOOD ORDERABLES Final Re sult Performing Organization Address [facility] Co de Phone Number [facility] [address] [place] [address] * AST (06/30/2025 3:00 AM EDT) Only the most recent of3 resultswithin the time period is included. AST (SGOT) 17 <34 U/L [facility] 06/30/2025 3:00 AM EDT 07/01/2025 3:57 PM EDT Renard Ritchie MD LAB BLOOD ORDERABLES Final Re sult Performing Organization Address [facility] de Phone Number [facility] [address] [address] * Protein, total (06/30/2025 3:00 AM EDT) Only the most recent of3 resultswithin the time period is included. Total Protein 7.2 6.4 - 8.9 g/dL [facility] 06/30/2025 3:00 AM EDT 07/01/2025 3:57 PM EDT us Renard Ritchie MD LAB BLOOD ORDERABLES Final Re sult Performing Organization Address [facility] Co de Phone Number [facility] [address] [place] [address] * Alkaline phosphatase (06/30/2025 3:00 AM EDT) Only the most recent of3 resultswithin the time period is included. Alkaline Phosphatase 94 46 - 116 U/L [facility] 06/30/2025 3:00 AM EDT 07/01/2025 3:57 PM EDT Renard Ritchie MD LAB BLOOD ORDERABLES Final Re sult Performing Organization Address [facility] Co de Phone Number [facility] [address] [place] [address] * Magnesium (06/30/2025 3:00 AM EDT) Only the most recent of3 resultswithin the time period is included. Magnesium 1.9 1.9 - 2.7 mg/dL [facility] 06/30/2025 3:00 AM EDT 07/01/2025 3:57 PM EDT Renard Ritchie MD LAB BLOOD ORDERABLES Final Re sult Performing Organization Address [facility] de Phone Number [facility] [address] [place] [address] * (ABNORMAL) Lactate dehydrogenase (06/30/2025 3:00 AM EDT) Only the most recent of3 resultswithin the time period is included. LDH 298(H) 120 - 246 U/L [facility] 06/30/2025 3:00 AM EDT 07/01/2025 3:57 PM EDT Renard Ritchie MD LAB BLOOD ORDERABLES Final Re sult Performing Organization Address [facility] de Phone Number [facility] [address] [place] [address] * (ABNORMAL) Glucose, random (06/30/2025 3:00 AM EDT) Only the most recent of3 resultswithin the time period is included. Glucose 138(H) 70 - 99 mg/dL [facility] Comment: ADA guidelines outline the following fasting glucose ranges: Normal: <100 Prediabetes: 100-125 Diabetes: >125 06/30/2025 3:00 AM EDT 07/01/2025 3:57 PM EDT us Renard Ritchie MD LAB BLOOD ORDERABLES Final Re sult Performing Organization Address [facility] Co de Phone Number [facility] [address] [place] [address] * (ABNORMAL) Ferritin (06/30/2025 3:00 AM EDT) Only the most recent of3 resultswithin the time period is included. Ferritin 1,261(H) 22 - 322 ng/mL [facility] 06/30/2025 3:00 AM EDT 07/01/2025 3:57 PM EDT Renard Ritchie MD LAB BLOOD ORDERABLES Final Re sult Performing Organization Address [facility] de Phone Number [facility] [address] [place] [address] * (ABNORMAL) Creatinine, serum (06/30/2025 3:00 AM EDT) Only the most recent of3 resultswithin the time period is included. Creatinine 10.69(H) 0.70 - 1.30 mg/dL [facility] 06/30/2025 3:00 AM EDT 07/01/2025 3:57 PM EDT Renard Ritchie MD LAB BLOOD ORDERABLES Final Re sult Performing Organization Address [facility] Co de Phone Number [facility] [address] [place] [address] * (ABNORMAL) Bilirubin, total (06/30/2025 3:00 AM EDT) Only the most recent of3 resultswithin the time period is included. Total Bilirubin <0.2(L) 0.3 - 1.2 mg/dL [facility] 06/30/2025 3:00 AM EDT 07/01/2025 3:57 PM EDT Renard Ritchie MD LAB BLOOD ORDERABLES Final Re sult Performing Organization Address [facility] de Phone Number [facility] [address] [place] [address] * (ABNORMAL) Electrolyte panel (06/30/2025 3:00 AM [...] ORDERABLES Final Re sult Performing Organization Address [facility] de Phone Number [facility] [address] [place] [address] * Phosphorus (06/21/2025 3:00 AM EDT) Only the most recent of2 resultswithin the time period is included. Phosphorus, Serum 3.9 2.5 - 5.0 mg/dL [facility] 06/21/2025 3:00 AM EDT 06/22/2025 11:59 AM EDT Renard Ritchie MD LAB BLOOD ORDERABLES Final Re sult Performing Organization Address [facility] de Phone Number [facility] [address] [place] [address] * Confirmation Test HCV (05/21/2025 3:00 AM EDT) Hep C Ab Confirmation Not needed [facility] 05/21/2025 3:00 AM EDT 05/22/2025 1:12 PM EDT Renard Ritchie MD LAB BLOOD ORDERABLES Final Re sult Performing Organization Address [facility] Co de Phone Number [facility] [address] [place] [address] * HEPATITIS C ABS W/REFLEX RNA DETECTR (05/21/2025 3:00 AM EDT) Pathologist [facility] Hep C Virus Ab Non-Reacti ve Non-Reacti ve [facility] 05/21/2025 3:00 AM EDT 05/22/2025 1:18 PM EDT Renard Ritchie MD LAB [id number] SOLICITED RESULTS Final Result Performing Organization Address [facility] de Phone Number [facility] [address] [place] [address] * PTH, Intact (04/28/2025 3:00 AM EDT) Pathologist [facility] PTH, Intact 189 160 - 721 pg/mL [facility] Comment: Suggested (KDIGO) ESRD maintenance range is two to nine times the upper normal limit (80.1 pg/mL) for the laboratory. 04/28/2025 3:00 AM EDT 04/29/2025 12:13 PM EDT Renard Ritchie MD LAB BLOOD ORDERABLES Final Re sult Performing Organization Address [facility] de Phone Number [facility] [address] [place] [address] * Hemoglobin A1c (04/28/2025 3:00 AM EDT) Pathologist [facility] Hemoglobin A1C 5.5 <5.7 % [facility] Comment: Methodology: Enzymatic Normal: <5.7% Prediabetes: 5.7-6.4% Diabetes: >6.4% Diabetic Glucose Control Evaluation: Therapeutic action suggested at >8.0% ADA recommends a glycemic goal of <7.0% 04/28/2025 3:00 AM EDT 04/29/2025 1:14 PM EDT us Renard Ritchie MD LAB BLOOD ORDERABLES Final Re sult Performing Organization Address [facility] de Phone Number [facility] [address] [place] [address] * (ABNORMAL) Lipid panel (04/28/2025 3:00 AM [...] ORDERABLES Final Re sult Performing Organization Address [facility] de Phone Number [facility] [address] [place] [address] from Last 3 Months Insurance [facility] ([id number]) [facility] ([id number]) Care Teams Washer Blanket Relationship Specialty Start Date End Date Nuvia Crook NP [address] [place] [address] PCP - General Nurse Practitioner 10/16/21
--- OUTSIDE RECORDS SUMMARY | 2025-07-29 09:16 | XMS_ITS | Encounter Summary ---
Author Organization [employer] Address [address] [facility] 7t [place] [address] Care Team Providers Care Inspector Type Name Role Phone Nuvia Crook Primary Care Provider [phone] Renard Ritchie MD Unavailable Eliecer Bob MD Unavailable Albert Galaviz MD Unavailable Reason for Visit * Reason Comments Med Refill Encounter Details Date Type Department Care Team (Late st Contact Info) Description 12/01/2024 Refill [facility] MEDICINE [address] [place], [place] [phone] Nuvia Crook ANP [address] [place], [place] [phone] End stage renal disease (CMS/HCC); Other chronic [...] Description 08/10/2025 8:00 AM EDT Office Visit [facility] ADULT DENTAL [address] [place] [address] Thomas Tejeda DDS [address] [place] [address] 11/02/2025 9:30 AM EST Clinical Support [facility]S [address] [place] [address] Lynn Armijo, NIMISHA [address] [place] [address] documented as of this encounter Visit Diagnoses Diagnosis End stage renal disease (HCC) End stage renal disease Other chronic pain documented in this encounter Additional Health Concerns Assessment Noted Time PHQ-9 Depression Total Score: 0 09/10/20 24 9:05 AM EST documented as of this encounter Care Teams Inspector Type Relationship Specialty Start Date End Date Nuvia Crook ANP [address] [place] [address] PCP - General Family Medicine 06/21/20 Renard Ritchie MD 100 [facility] 200 [place] [address] Nephrology 10/13/24 Eliecer Bob MD [address] [place] [address] Endocrinology 10/13/24 Albert Galaviz MD [address] [place] [address] Cardiology 10/13/24 documented as of this encounter
--- OUTSIDE RECORDS SUMMARY | 2025-07-29 09:16 | XMS_ITS | Encounter Summary ---
Author Organization [employer] Address [address] [facility] 7t [place] [address] Care Team Providers Care Netsuite Consultant Name Role Phone Nuvia Crook Primary Care Provider Renard Ritchie MD Unavailable [phone] Eliecer Bob MD Unavailable [phone] Albert Galaviz MD Unavailable [phone] Reason for Visit * Reason Comments Med Change Request Encounter Details Date Type Department Care Team ([facility] st Contact Info) Description 04/05/2023 Refill [facility] MEDICINE [address] [place], [place] [phone] Nuvia Crook, ANP [address] [place], [place] [phone] Pain Social History Tobacco Use Types Packs/Day [...] - 04/08/2023 12:05 PM EDT Sent to [facility] 04/05. Received after hours. documented in this encounter Plan of Treatment Upcoming Encounters Date Type Department Care Team (Late st Contact Info) Description 08/10/2025 8:00 AM EDT Office Visit [facility] ADULT DENTAL [address] [place] [address] Thomas Tejeda DDS [address] [place] [address] 11/02/2025 9:30 AM EST Clinical Support [facility]S [address] [place] [address] Lynn Armijo, NIMISHA [address] [place] [address] documented as of this encounter Visit Diagnoses Diagnosis Pain Generalized pain documented in this encounter Care Teams Netsuite Consultant Relationship Specialty Start Date End Date Nuvia Crook ANP [address] [place] [address] PCP - General Family Medicine 06/21/20 Renard Ritchie MD 100 [facility] 200 [place] [address] Nephrology 10/13/24 Eliecer Bob MD [address] [place] [address] Endocrinology 10/13/24 Albert Galaviz MD [address] [place] [address] Cardiology 10/13/24 documented as of this encounter
[2025-07-29 12:22] LABS: Cholesterol 270 mg/dL (<200); HDL Cholesterol 17 mg/dL (>40)
[2025-07-29 12:28] LABS: Triglycerides 2226 mg/dL (<150)
[2025-07-29 13:36] LABS: Estimated Glomerular Filt Rate 6
== END 2025-07-29 08:48 | disposition home or self-care (01) ==
LOC: HO.HHCL 08:47
PROVIDERS: Physician Assistant Medical; PCP Nurse Practitioner Primary Care; Visit Provider Nurse Practitioner Primary Care
DX: I10 Essential (primary) hypertension (principal); E11.649 Type 2 diabetes mellitus with hypoglycemia without coma; E78.1 Pure hyperglyceridemia
CPT/HCPCS: 36415; 80061; 82565; 83036; 83721

== ENCOUNTER 2025-10-05 09:02 | Outpatient (AMB) | payer OTHER, SELFPAY ==
[2025-10-05 09:12] VITALS: BP 150/54; PULSE 73; O2SAT 95; BMI 30.3
--- NOTE | 2025-10-05 09:12 | A.OFFVIS_ITS ---
Vital Signs 10/05/25 09:12 Height 5 ft 11 in Weight 217 lb 6.012 oz BMI 30.3 BP 150/54 H Blood Pressure Location Rt brachial Position Sitting Pulse 73 Pulse Source Pulse Oximeter Pulse Oximetry (%) 95 Oxygen Delivery Method Room Air Intake Visit Reasons: Type II diabetes Intake Note: Patient present today to follow up on Type 2 Diabetes Mellitus. Last Diabetic Eye exam: approx in February 2025 Last Podiatry Visit: Last visit was in 06/2025 Random Glucose: 193 mg/dL HgA1C: 5.3% 07/29/2025 Rod Pointer Required: No Accompanied by: Self / Same As Patient Allergies No Known Allergies Allergy (Verified 10/05/25 09:18) HPI Comments Details: Patient is a 64-year-old male with DM type 2 diagnosed in in 1999, who presents for diabetic follow up. He has a past medical history of PAD, CKD stage 4 on dialysis, COPD, hypertrig lyceridemia, anemia, pancreatitis 2012 and 2020. Patient's hemoglobin A1c is 5.3% 07/29/2025. 30 day average 125 Checks 0-4 times daily He stopped using a CGM because it was frequently alerting him to inaccurate lows, and he is not interested in trying another device. He's been trying to lose weight and exercising. He lost 7 pounds in 3 months. Current regimen: Patient takes NovoLog 5 units before breakfast on non dialysis days, 8 units of NovoLog before lunch. Holds novolog if BG is under 100 and uses only 4 units if BG is under 150 He discontinued Toujeo due to low sugars previously. Micro and macrovascular complications: + retinopathy, + nephropathy, +neuropathy, PAD Care team Nephrology-Dr Ritchie-at [facility]-Dr [place] Patient also sees Podiatry and Orthopedics. Patient says he is compliant with atorvastatin and Vascepa. He can not take a fibrate due to end-stage renal disease. ROS: Constitutional: No fevers, chills, night sweats or increased fatigue Eyes: No vision changes Respiratory: No shortness of breath Cardiovascular: No chest pain, chest pressure or chest discomfort. No palpitations or pedal edema. Neurologic: No headache, dizziness, syncope. He gets some numbness and tingling in his feet. Hematologic/Lymphatics: No bleeding Endocrine: No polyuria, polydipsia, shakiness, weakness. Physical exam: Constitutional: Alert, in no distress. Head: Normocephalic. Eyes: Pupils are equal, round and reactive to light. Extraocular muscles intact. Neck: Supple, Full range of motion. No lymphadenopathy. Respiratory: Clear to auscultation. Cardiovascular: S1 S2 regular. No murmurs. [facility] Medical History (Updated 07/06/25 @ 10:03 by CORNELIO Sol) Hypertriglyceridemia Arthritis of knee, right Knee pain, right Insulin long-term use Diabetic neuropathy Type 2 diabetes, controlled, with renal manifestation ESRD (end stage renal disease) on dialysis CHF exacerbation Diabetes type 2, uncontrolled Anemia HTN (hypertension) Heart failure with preserved ejection fraction CKD (chronic kidney disease) stage 4, GFR 15-29 ml/min Congestive heart failure Type 2 diabetes mellitus with unspecified complications Diastolic dysfunction Essential hypertension Hyperglycemia Hypertensive crisis Pancreatitis Chronic kidney disease, stage 4 (severe) Erectile dysfunction Depression with anxiety Proteinuria Diverticulitis Type 2 diabetes mellitus with hyperglycemia, with long-term current use of insulin Type 2 diabetes mellitus with polyneuropathy Type 2 diabetes mellitus with chronic kidney disease Hypertension Diabetes mellitus with hyperglycemia, with long-term current use of insulin History of alcohol abuse Abnormal biopsy of kidney Peptic ulcer Hx of pancreatitis Anxiety Depression COPD (chronic obstructive pulmonary disease) History of headache Sleep apnea Asthma On beta doron at home Elevated cholesterol CHF (congestive heart failure) HTN (hypertension) Surgical History History of esophagogastroduodenoscopy (EGD) History of surgery Hx of right inguinal hernia repair Hx of colonoscopy Family History Mother Diabetes Social History Household Members: None Housing: Apartment Are you a primary care connector to a significant other at home: No Do you presently have visiting nurse or other home services: Yes ([employer]GER) Alcohol intake: never Comment: pt sleeping Patient Tobacco Use Status: Never used Tobacco Tobacco use type: Cigarette Years Smoked: 30 Second Hand Smoke Exposure: Yes service: No Current occupational status: retired Physical Exam Vital Signs: Last Vital Signs Pulse 73 10/05/25 09:12 BP 150/54 H 10/05/25 09:12 Pulse Ox 95 10/05/25 09:12 Oxygen Delivery Method Room Air 10/05/25 09:12 BMI result Body Mass Index 30.3 Results Reviewed Results Reviewed: Laboratory Last Values Glucose (Clinic) 193 mg/dL (60-115) H 10/05/25 09:19 Laboratory Tests 05/29/25 07/06/25 09:45 09:32 Creatinine 9.00 H* Estimated GFR 6 Hgb A1c (Clinic) 6.0 He had lab work done externally on 01/27/2025, and his triglycerides were 757, total cholesterol 184, HDL 20 and LDL was not calculated due to high triglycerides. Assessment & Plan Assessment & Plan (1) Type 2 diabetes mellitus with hypoglycemia without coma: Code(s): E11.649 - Type 2 diabetes mellitus with hypoglycemia without coma Category: Medical Qualifiers: Diabetes mellitus halfway insulin use: with dedicated intermodal truck driver use Qualified Code(s): E11.649 - Type 2 diabetes mellitus with hypoglycemia without coma; Z79.4 - dedicated intermodal truck driver (current) use of insulin (2) Hypertriglyceridemia: Code(s): E78.1 - Pure hyperglyceridemia Category: Medical (3) Essential hypertension: Code(s): I10 - Essential (primary) hypertension Category: Medical Plan In summary this is a 65-year-old male with controlled type 2 diabetes with chronic insulin use and micro and macrovascular complications. Current regimen: NovoLog 5 units before breakfast on non dialysis days, 8 units of NovoLog before lunch. Holds novolog if BG is under 100 and uses only 4 units if BG is under 150 A1c is 5.3%, probably under estimated glycemic control somewhat due to anemia and end-stage renal disease. Thirty day average glucose is 125 corresponding to A1c of around 6%. If you experience low blood sugar, treat this by eating a chewable fruit candy like skittles or jelly beans (about 8 pieces), 4 ounces (1/2 cup) of fruit juice (not diet), 1 tablespoon of honey or 4 glucose tablets. If your blood sugar is under 50, take double the amount of one of the above. Recheck your blood sugar in 15 minutes. Continue to follow up with all specialists as planned. Reviewed lifestyle modifications regarding elevated triglycerides. Check lipid profile. Fibrate contraindicated. Continue atorvastatin and Vascepa. I will look into Repatha and Praluent further, but to my knowledge the potential would only be modest lowering of triglycerides with these medications. Follow up in 3 months for type 2 diabetes. Orders: Orders Lipid Panel Today E78.5 - Hyperlipidemia, unspecified LDL Cholesterol Direct Today E78.1 - Pure hyperglyceridemia Coding Level of Care Code Est Pt Level 4 (56310) Complex visit Add On G2211 Diagnoses Type 2 diabetes mellitus with hypoglycemia without coma, with long-term current use of insulin E11.649; Z79.4 Diabetes mellitus dedicated intermodal truck driver insulin use: with halfway use Hypertriglyceridemia E78.1 Essential hypertension I10
[2025-10-05 09:23] LABS: Glucose, Whole Blood 193 mg/dL (60-115)
== END 2025-10-05 11:20 | disposition home or self-care (01) ==
LOC: HO.ENCR 09:03
PROVIDERS: PCP Nurse Practitioner Primary Care; Visit Provider Physician Assistant Medical
DX: E11.649 Type 2 diabetes mellitus with hypoglycemia without coma (principal); Z79.4 Long term (current) use of insulin; E78.1 Pure hyperglyceridemia; I10 Essential (primary) hypertension

== ENCOUNTER → 2025-10-05 09:02 | Outpatient (BNVA) | payer OTHER, SELFPAY | PROVIDERS: PCP Nurse Practitioner Primary Care; Visit Provider Physician Assistant Medical | DX: E11.649 Type 2 diabetes mellitus with hypoglycemia without coma (principal); E78.1 Pure hyperglyceridemia; I12.0 Hypertensive chronic kidney disease with stage 5 chronic kidney disease or end stage renal disease; E11.22 Type 2 diabetes mellitus with diabetic chronic kidney disease; N18.6 End stage renal disease; D63.1 Anemia in chronic kidney disease; E11.319 Type 2 diabetes mellitus with unspecified diabetic retinopathy without macular edema; E11.40 Type 2 diabetes mellitus with diabetic neuropathy, unspecified; E11.51 Type 2 diabetes mellitus with diabetic peripheral angiopathy without gangrene; Z99.2 Dependence on renal dialysis; Z79.4 Long term (current) use of insulin; Z79.899 Other long term (current) drug therapy | CPT/HCPCS: 82947; 99212 ==